=== PATIENT | male | born 1930 | race Caucasian/White ===

== ENCOUNTER 2016-09-01 17:13 | Inpatient (IN) | payer OTHER ==
[~2016-09-01] VITALS: Ht 182.9 cm; Wt 121.4 kg
[~2016-09-01 17:13] MED LIST: ACET325T96 PO; ATOR-54 PO; CRD200 PO; FAMO20TA11 PO; FLV1 PO; FRS/40 PO; FRS/80 PO; HEPA1INJ22 SQ; INSDGI SC; LISI2.5T5 PO; NTRGSL/4 UT; POLY335025 PO; POTA20TA16 PO; SITA50TA PO
--- NOTE | 2016-09-01 17:44 | EMERGENCY ROOM VISIT NOTE ---
History Report prepared by Li: Nancy Hurley Under the Supervision of: Dr. Brent Ruiz M.D. First contact with patient: 17:25 Chief Complaint: EDEMA TO EXTREMITY Stated Complaint: FLUID RETENTION History of Present Illness The patient is a 86 year old male who presents to the Emergency Room with complaints of bilateral leg swelling. Notes over the last 2 days increasing swelling of legs which now involved lower abdomen. He is unable to get his pants on without significant difficulty due to swelling. Notes some dyspnea on exertion. No chest pain, sob, nausea, vomiting, fevers, rashes. Appetite normal. In last week he has gained 25 pounds. No change in medications recently. Nothing makes better. History of cardiac surgery 15 yrs ago. No mediations prior to arrival. Seen by PCP this afternoon and sent to ED for further evaluation. Source of History: patient, family, treating provider Onset: 2 days ago Position: leg (bilateral) Quality: other (swelling) Timing: worsening Modifying Factors (Worsening): exertion Associated Symptoms: No SOB, No chest pain, No fevers, No nausea, No rash, No vomiting Note: Pt notes swelling to abdomen and weight gain of 25lbs in the past week. Review of Systems See HPI for pertinent positives & negatives. A total of 10 systems reviewed and were otherwise negative. Past Medical & Surgical Medical Problems: (1) Bladder cancer (2) Diabetes Family History FHx: heart disease Social History Smoking Status: Never Smoker Alcohol Use: none Drug Use: none Marital Status: Occupation Status: unemployed Current/Historical Medications Scheduled Amiodarone HCl (Amiodarone HCl), 200 MG PO DAILY Atorvastatin (Lipitor), 20 MG PO DAILY Famotidine (Pepcid), 20 MG PO QPM Fluticasone Propionate (Nasal) (Flonase Allergy Relief), 2 SPRAY MAGAN DAILY Folic Acid (Folic Acid), 1 MG PO DAILY Furosemide (Lasix), 40 MG PO BID Insulin Glargine (Lantus), 48 UNITS SC HS Lisinopril (Lisinopril), 5 MG PO DAILY Nitroglycerin (Nitrostat), 0.4 MG UT PRN Pantoprazole (Protonix), 40 MG PO DAILY Potassium Ext Rel (Klor-Con), 20 MEQ PO BID Repaglinide (Prandin), 2 MG PO AC Sitagliptin Phosphate (Januvia), 50 MG PO DAILY Scheduled PRN Acetaminophen Tab (Tylenol), 650 MG PO Q4 PRN for Fever Allergies Coded Allergies: Propranolol (Verified Allergy, Unknown, 09/01/16) Codeine (Verified Adverse Reaction, Mild, NOTED "DOESNT TOLERATE WELL" , 09/01/16) Physical Exam Vital Signs Date Time Temp Pulse Resp B/P Pulse Ox O2 Delivery O2 Flow Rate FiO2 09/01/16 19:31 84 09/01/16 19:25 83 18 145/85 95 Room Air 09/01/16 17:20 36.6 91 20 132/76 97 Room Air Physical Exam GENERAL: Patient is chronically unwell appearing and in no acute distress. HEENT: No acute trauma, normocephalic atraumatic, mucous membranes moist, no nasal congestion, no scleral icterus. NECK: No stridor, no adenopathy, no meningismus, trachea is midline. LUNGS: No dyspnea. Clear to auscultation and equal bilaterally. No wheeze, no rhonchi. HEART: Regular rate and rhythm. No murmurs, rubs, gallops appreciated. ABDOMEN: Edema to lower abdomen. Soft, nontender, bowel sounds positive, no masses appreciated, no peritonitis. BACK: Mild low back pitting edema. No midline tenderness, no CVA tenderness EXTREMITIES: 4+ edema bilateral legs. Old anterior scarring both shins. Normal motion all extremities, no cyanosis NEUROLOGIC: Alert and oriented, no acute motor or sensory deficits, no focal weakness, cranial nerves grossly intact. SKIN: No rash, no jaundice, no diaphoresis. Medical Decision & Procedures ER Provider Diagnostic Interpretation: Radiology results and stated below per my review and radiologist interpretation: CHEST ONE VIEW PORTABLE CLINICAL HISTORY: Diffuse edema COMPARISON STUDY: Chest radiograph August 28, 2013. FINDINGS: A dual lead left subclavian pacemaker and median sternotomy wires are noted. Moderate cardiomegaly is noted. The patient is rotated. There is no evidence of pulmonary edema. There is no pneumothorax or pleural effusion. Mild left basilar opacity favors atelectasis. IMPRESSION: Stable cardiomegaly without evidence of pulmonary edema. Electronically signed by: Williams Goetz M.D. 09/01/2016 6:07 PM Dictated Date/Time: 09/01/2016 6:06 PM Laboratory Results 09/01/16 17:45 Red Blood Count 3.54, Mean Corpuscular Volume 90.7, Mean Corpuscular Hemoglobin 30.2, Mean Corpuscular Hemoglobin Concent 33.3, Mean Platelet Volume 10.4, Neutrophils (%) (Auto) 74.7, Lymphocytes (%) (Auto) 8.5, Monocytes (%) (Auto) 13.4, Eosinophils (%) (Auto) 2.8, Basophils (%) (Auto) 0.3, Neutrophils # (Auto ) 2.63, Lymphocytes # (Auto) 0.30, Monocytes # (Auto) 0.47, Eosinophils # (Auto ) 0.10, Basophils # (Auto) 0.01 09/01/16 17:45 Test 09/01/16 17:45 White Blood Count 3.52 K/uL (4.8-10.8) Red Blood Count 3.54 M/uL (4.7-6.1) Hemoglobin 10.7 g/dL (14.0-18.0) Hematocrit 32.1 % (42-52) Mean Corpuscular Volume 90.7 fL (80-100) Mean Corpuscular Hemoglobin 30.2 pg (25-34) Mean Corpuscular Hemoglobin Concent 33.3 g/dl (32-36) Platelet Count 56 K/uL (130-400) Mean Platelet Volume 10.4 fL (7.4-10.4) Neutrophils (%) (Auto) 74.7 % Lymphocytes (%) (Auto) 8.5 % Monocytes (%) (Auto) 13.4 % Eosinophils (%) (Auto) 2.8 % Basophils (%) (Auto) 0.3 % Neutrophils # (Auto) 2.63 K/uL (1.4-6.5) Lymphocytes # (Auto) 0.30 K/uL (1.2-3.4) Monocytes # (Auto) 0.47 K/uL (0.11-0.59) Eosinophils # (Auto) 0.10 K/uL (0-0.5) Basophils # (Auto) 0.01 K/uL (0-0.2) RDW Standard Deviation 50.9 fL (36.4-46.3) RDW Coefficient of Variation 15.3 % (11.5-14.5) Immature Granulocyte % (Auto) 0.3 % Immature Granulocyte # (Auto) 0.01 K/uL (0.00-0.02) Platelet Estimate DECREASED Anion Gap 8.0 mmol/L (3-11) Est Creatinine Clear Calc Drug Dose 27.1 ml/min Estimated GFR () 24.8 Estimated GFR (Non- 21.4 BUN/Creatinine Ratio 10.6 (10-20) Calcium Level 8.0 mg/dl (8.5-10.1) Magnesium Level 2.2 mg/dl (1.8-2.4) Total Creatine Kinase 145 U/L (39-308) Creatine Kinase MB 2.0 ng/ml (0.5-3.6) Creatine Kinase MB Ratio 1.4 (0-3.0) Troponin I 0.025 ng/ml (0-0.045) Pro-B-Type Natriuretic Peptide 1184 pg/ml (0-1800) Laboratory results as reviewed by me. Medications Administered Medications (Trade) Dose Ordered Sig/Gin Route Start Time Stop Time Status Last Admin Dose Admin Furosemide (Lasix Inj) 40 mg NOW STAT IV 09/01/16 18:55 09/01/16 18:56 DC 09/01/16 19:31 40 MG ECG Indication: SOB/dyspnea Rate (beats per minute): 71 Rhythm: sinus rhythm (with prolonged TN interval, periodically paced) Findings: LBBB, no acute ischemic change, other (periodic premature supraventricular complexes) Comparison ECG Date: 01/18/14 Change: no significant change ED Course 1724: The patient was evaluated in room C5. A complete history and physical exam was performed. 1851: I reassessed the patient at this time. He is resting comfortably. I discussed the results and treatment plan with the patient. I answered all pertaining questions that he had. He expressed understanding and verbalized agreement. 1854: Lasix 40 mg IV 1920: I spoke with Dr. Burleson. We discussed the patient's results and treatment plan. The patient will be evaluated by the [facility] for further management. Medical Decision Differential: DVT, CHF, Arterial Occlusion, Infectious, Joint Effusion, Trauma, Lymphedema, Idiopathic, Trauma, amongst other pathologies entertained. 86 yr old male on lasix arrives for evaluation of bilateral leg swelling and significant weight gain over last few days. He has 4+ pitting edema from feet to low abdomen/back. He does not have evidence of pulmonary involvement and O2 doing well. Given the amount of swelling suspect his is righ heart failure. He does not have DVT by history nor evidence of infection at this time. Given IV lasix with understanding that this could harm kidneys, but is necessary given amount of failure he is in. Consults Time Called: 1850 Consulting Physician: Dr. Burleson Returned Call: [address] Burleson. We discussed the patient's results and treatment plan. [facility] Impression Primary Impression: Bilateral leg edema Additional Impressions: Dyspnea on exertion Right heart failure Scribe Attestation The scribe's documentation has been prepared under my direction and personally reviewed by me in its entirety. I confirm that the note above accurately reflects all work, treatment, procedures, and medical decision making performed by me. Departure Information Dispostion Being Evaluated By Hospitalist Referrals Anastacio Garza M.D. (PCP) Patient Instructions My [facility] Problem Qualifiers
--- NOTE | 2016-09-01 18:09 | DIAGNOSTIC IMAGING REPORT ---
CHEST ONE VIEW PORTABLE CLINICAL HISTORY: Diffuse edema COMPARISON STUDY: Chest radiograph August 28, 2013. FINDINGS: A dual lead left subclavian pacemaker and median sternotomy wires are noted. Moderate cardiomegaly is noted. The patient is rotated. There is no evidence of pulmonary edema. There is no pneumothorax or pleural effusion. Mild left basilar opacity favors atelectasis. IMPRESSION: Stable cardiomegaly without evidence of pulmonary edema. Electronically signed by: Williams Goetz M.D. 09/01/2016 6:07 PM Dictated Date/Time: 09/01/2016 6:06 PM
[2016-09-01] MEDS ORDERED: INSDGI SC (18:24)
[2016-09-01] MEDS ORDERED: CRD200 PO (18:24)
[2016-09-01 18:37] LABS: BUN/CREATININE RATIO 10.6 (10-20); CREATININE 2.6 mg/dl (0.60-1.40); MAGNESIUM 2.2 mg/dl (1.8-2.4); POTASSIUM 3.7 mmol/L (3.5-5.1)
[2016-09-01 18:41] LABS: HEMATOCRIT 32.1 % (42-52); MEAN CELL VOLUME 90.7 fL (80-100); MEAN CORPUSCULAR HEMOGLOBIN 30.2 pg (25-34); MEAN CORPUSCULAR HGB CONC 33.3 g/dl (32-36); MEAN PLATELET VOLUME 10.4 fL (7.4-10.4); PLATELET COUNT 56 K/uL (130-400); RED BLOOD COUNT 3.54 M/uL (4.7-6.1); WHITE BLOOD COUNT 3.52 K/uL (4.8-10.8)
[2016-09-01 18:42] LABS: BASO % 0.3 %; BASO ABS # 0.01 K/uL (0-0.2); CKMB/CK RATIO 1.4 (0-3.0); COMPLETE YES; EOS % 2.8 %; IG% 0.3 %; LYMPH % 8.5 %; MONO % 13.4 %; NEUT % 74.7 %; PLT ESTIMATE DECREASED
[2016-09-01] MEDS ORDERED: FUROSEMIDE 40 MG/4 ML VIAL IV STA (18:55)
[2016-09-01] MEDS ORDERED: ONDANSETRON INJ 2 MG/ML 2 ML VIAL IV PRN (20:45)
[2016-09-01] MEDS ORDERED: LSN5 PO (20:54)
[2016-09-01] MEDS ORDERED: PANT40TA PO (20:59)
[2016-09-01] MEDS ORDERED: REPA1TAB5 PO (21:04)
[2016-09-01] MEDS ORDERED: FLUT0.15 NAE (21:05)
[2016-09-01] MEDS ORDERED: GLUCAGON FOR INJ 1 MG VIAL SQ PRN (21:15)
[2016-09-01] MEDS ORDERED: DEXTROSE 50% 50 ML SYR IV PRN (21:15)
[2016-09-01] MEDS ORDERED: GLUCOSE 40% GEL 15 GM TUBE PO PRN (21:15)
[2016-09-01] MEDS ORDERED: GLUCOSE 10 TABS/TUBE PO PRN (21:15)
[2016-09-01] MEDS ORDERED: ACETAMINOPHEN 325 MG TAB PO PRN (21:15)
[2016-09-01] MEDS ORDERED: PHARMACY GLYCEMIC MGMT CONSULT PRN (21:45)
[2016-09-01] MEDS: INSULIN ASPART 100 UNITS/ML 3 ML PEN SC SCH (23:00)
[2016-09-01] MEDS ORDERED: INSULIN GLARGINE SOLOSTAR 100 UNITS/ML 3 ML PEN SC SCH (23:00)
[2016-09-01 23:41] LABS: INR 1.2 (0.9-1.1); PARTIAL THROMBOPLASTIN RATIO 1.2; PROTHROMBIN TIME (PATIENT) 12.9 SECONDS (9.0-12.0)
[2016-09-01 23:45] VITALS: BP 137/81; PULSE 86; TEMP 36.5; Ht 182.9 cm; Wt 121.4 kg
--- NOTE | 2016-09-02 01:33 | History and Physical ---
History & Physical Date & Time of Service: Sep 01, 2016 at 21:06 Chief Complaint: Fluid Retention Primary Care Physician: Anastacio Garza M.D. History of Present Illness Source: family, clinic records, hospital records 86 year old male with PMH of COPD, CARLITA on CPAP, DM II, CKD stage 3/4, HTN dyslipidemia, obesity was sent from PCP office to the Emergency Room with complaints of bilateral leg swelling. Pt said that for the last few days he has been having increasing swelling of B/L legs. He said that in the last 2 days the swelling got worst to the point that it seems like it involves his abdomen because he is unable to get his pants on without significant difficulty due to swelling. Notes some dyspnea on exertion. He said that he gained about 25lbs in the last few weeks. (Weight at podiatry on 08/24 was 247lbs and he is at 272lbs in clinic today.) Pt said that in his last appointment with nephrology, his lasix was decreased to 40mg BID. He said that, he increased his lasix without the physician permission to his previous dose of 120mg daily (40/80 mg) last Monday. He denies any chest pain, sob, nausea, vomiting, fevers, rashes. Past Medical/Surgical History Medical Problems: (1) Bladder cancer Status: Chronic (2) Diabetes Status: Chronic Family History FHx: heart disease Social History Smoking Status: Never Smoker Alcohol Use: none Drug Use: none Marital Status: Occupational Status: unemployed Immunizations History of Influenza Vaccine: Yes History of Tetanus Vaccine?: Yes History of Pneumococcal: Yes History of Hepatitis B Vaccine: Unknown Multi-Drug Resistant Organisms History of MDRO: No Allergies Coded Allergies: Propranolol (Verified Allergy, Unknown, 09/01/16) Codeine (Verified Adverse Reaction, Mild, NOTED "DOESNT TOLERATE WELL" , 09/01/16) Home Medications Scheduled Amiodarone HCl (Amiodarone HCl), 200 MG PO DAILY Atorvastatin (Lipitor), 20 MG PO DAILY Famotidine (Pepcid), 20 MG PO QPM Fluticasone Propionate (Nasal) (Flonase Allergy Relief), 2 SPRAY MAGAN DAILY Folic Acid (Folic Acid), 1 MG PO DAILY Furosemide (Lasix), 40 MG PO BID Insulin Glargine (Lantus), 48 UNITS SC HS Lisinopril (Lisinopril), 5 MG PO DAILY Nitroglycerin (Nitrostat), 0.4 MG UT PRN Pantoprazole (Protonix), 40 MG PO DAILY Potassium Ext Rel (Klor-Con), 20 MEQ PO BID Repaglinide (Prandin), 2 MG PO AC Sitagliptin Phosphate (Januvia), 50 MG PO DAILY Scheduled PRN Acetaminophen Tab (Tylenol), 650 MG PO Q4 PRN for Fever Review of Systems Constitutional: No chills, No fever Eyes: No eye pain, No worsening of vision ENT: No hearing loss, No nasal symptoms Respiratory: + dyspnea on exertion, No cough, No sputum, No wheezing Cardiovascular: + edema, No chest pain, No orthopnea Abdomen: No nausea, No pain, No vomiting Musculoskeletal: No calf pain, No joint pain Genitourinary - Male: No dysuria, No urinary retention Neurologic: No paralysis, No weakness Psychiatric: No substance abuse Endocrine: No excessive thirst, No fatigue Integumentary: No itch, No rash Physical Exam Vital Signs Date Time Temp Pulse Resp B/P Pulse Ox O2 Delivery O2 Flow Rate FiO2 09/01/16 19:31 84 09/01/16 19:25 83 18 145/85 95 Room Air 09/01/16 17:20 36.6 91 20 132/76 97 Room Air General Appearance: WD/WN, no apparent distress Head: normocephalic Eyes: normal inspection, PERRL, EOMI ENT: normal ENT inspection, hearing grossly normal Neck: supple, no JVD Respiratory/Chest: lungs clear, no respiratory distress, no accessory muscle use Cardiovascular: regular rate, rhythm, no JVD, no murmur Abdomen/GI: normal bowel sounds, non tender, soft Back: normal inspection, no CVA tenderness Extremities/Musculoskelatal: no calf tenderness, + pedal edema Neurologic/Psych: alert, normal mood/affect, oriented x 3 Skin: warm/dry, no rash Lymphatic: no adenopathy Diagnostics Laboratory Results Results Past 24 Hours Test 09/01/16 17:45 Range/Units White Blood Count 3.52 4.8-10.8 K/uL Red Blood Count 3.54 4.7-6.1 M/uL Hemoglobin 10.7 14.0-18.0 g/dL Hematocrit 32.1 42-52 % Mean Corpuscular Volume 90.7 80-100 fL Mean Corpuscular Hemoglobin 30.2 25-34 pg Mean Corpuscular Hemoglobin Concent 33.3 32-36 g/dl Platelet Count 56 130-400 K/uL Mean Platelet Volume 10.4 7.4-10.4 fL Neutrophils (%) (Auto) 74.7 % Lymphocytes (%) (Auto) 8.5 % Monocytes (%) (Auto) 13.4 % Eosinophils (%) (Auto) 2.8 % Basophils (%) (Auto) 0.3 % Neutrophils # (Auto) 2.63 1.4-6.5 K/uL Lymphocytes # (Auto) 0.30 1.2-3.4 K/uL Monocytes # (Auto) 0.47 0.11-0.59 K/uL Eosinophils # (Auto) 0.10 0-0.5 K/uL Basophils # (Auto) 0.01 0-0.2 K/uL RDW Standard Deviation 50.9 36.4-46.3 fL RDW Coefficient of Variation 15.3 11.5-14.5 % Immature Granulocyte % (Auto) 0.3 % Immature Granulocyte # (Auto) 0.01 0.00-0.02 K/uL Platelet Estimate DECREASED Sodium Level 147 136-145 mmol/L Potassium Level 3.7 3.5-5.1 mmol/L Chloride Level 112 98-107 mmol/L Carbon Dioxide Level 27 21-32 mmol/L Anion Gap 8.0 3-11 mmol/L Blood Urea Nitrogen 28 7-18 mg/dl Creatinine 2.60 0.60-1.40 mg/dl Est Creatinine Clear Calc Drug Dose 27.1 ml/min Estimated GFR () 24.8 Estimated GFR (Non- 21.4 BUN/Creatinine Ratio 10.6 10-20 Random Glucose 144 70-99 mg/dl Calcium Level 8.0 8.5-10.1 mg/dl Magnesium Level 2.2 1.8-2.4 mg/dl Total Creatine Kinase 145 39-308 U/L Creatine Kinase MB 2.0 0.5-3.6 ng/ml Creatine Kinase MB Ratio 1.4 0-3.0 Troponin I 0.025 0-0.045 ng/ml Pro-B-Type Natriuretic Peptide 1184 0-1800 pg/ml Diagnostic Radiology CHEST ONE VIEW PORTABLE CLINICAL HISTORY: Diffuse edema COMPARISON STUDY: Chest radiograph August 28, 2013. FINDINGS: A dual lead left subclavian pacemaker and median sternotomy wires are noted. Moderate cardiomegaly is noted. The patient is rotated. There is no evidence of pulmonary edema. There is no pneumothorax or pleural effusion. Mild left basilar opacity favors atelectasis. IMPRESSION: Stable cardiomegaly without evidence of pulmonary edema. Electronically signed by: Williams Goetz M.D. 09/01/2016 6:07 PM Dictated Date/Time: 09/01/2016 6:06 PM Impression Assessment and Plan B/L LE EDEMA Received Lasix 40mg IV in the ER will get venous doppler of LE Continue IV lasix Acute on CKD 4 creatine was 2 (08/05) creatine on admission 2.6 possible related to diuretic since pt increased it to 120 daily hold lisinopril for now hold am dose of lasix, can resume if creatine improved will add albumin will consult nephrology monitor I/O Monitor BMP SOB on exertion Will get an echo starting Lasix IV after am lab result DM TYPE II Last Hba1c 6.2 on (07/22/16) Controlled hold PO meds insulin coverage continue lantus CARLITA on CPAP HTN Hold lisinopril due to elevating creatine BP stable monitor BP DVT px on heparin subq Code Status DNR Level of Care Med/Surg Resuscitation Status DO NOT RESUSCITATE VTE Prophylaxis VTE Risk Assessment Done? Y/N: Yes Risk Level: Moderate Given or contraindicated: Unfractionated heparin SQ
[2016-09-02] MEDS: HEPARIN SOD 5000 UNIT/0.5 ML CARP SQ SCH ×3 (05:42→20:58)
[2016-09-02 07:45] VITALS: BP 127/73; PULSE 60; TEMP 36.5; O2SAT 99
--- NOTE | 2016-09-02 07:51 | NEPHROLOGY CONSULTATION ---
DATE OF CONSULTATION: 09/02/2016 DATE OF CONSULTATION: 09/02/2016. ATTENDING OF RECORD: Dr. Avelar. REASON FOR CONSULTATION: Volume overload and MAGEN. HISTORY OF PRESENT ILLNESS: This is an 86-year-old male who follows with my partner, Dr. 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 The patient does have a significant history of type 2 diabetes insulin requiring, as well as history of bladder cancer, primary thrombocytopenia, sleep apnea, COPD, cardiomyopathy. Dr. Damico on 06/01/2016 reduced the Lasix to 40 mg twice a day from 40 mg in the morning and 80 mg at night secondary to the creatinine worsening. The patient has a history of recurrent bladder cancer status post September 2012 resection and had a right ankle fracture, has low grade 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 followed by Dr. Brown, diabetes since 2009, sleep apnea on oxygen and CPAP, paroxysmal Afib and cardiomyopathy followed by Dr. Louis, a remote history of smoking, history of hypertension. The patient with CKD stage III/IV with microalbuminuria in the setting of advanced age, diabetes, atherosclerotic vascular disease, hypertension. The patient states that he was doing well but then recently gained about 25 pounds in the last few weeks. No actual worsening shortness of breath, just worsening abdominal distention and worsening leg swelling. Lasix was decreased to 40 mg b.i.d. on 06/01/2016 and was doing fine up until this admission. The patient though states. The swelling much improved this morning, abdominal distention improving, leg swelling is improving. The patient feels good using his BiPAP overnight. PAST MEDICAL HISTORY: CKD stage IV with baseline creatinine in the low 2's with microalbuminuria, hypertension, diabetes, obstructive sleep apnea on CPAP and oxygen, COPD, bladder cancer, ankle fracture. FAMILY HISTORY: Significant for heart disease. SOCIAL HISTORY: No smoking, no alcohol, no drugs. REVIEW OF SYSTEMS: No fevers or chills. Positive significant weight gain, positive baseline shortness of breath but no acute worsening. No chest pain. Positive edema, positive abdominal distention. No rash or itching. No blurry vision. No dysphagia. No diarrhea or constipation. No dysuria. All other review of systems otherwise negative. CURRENT MEDICATIONS: Pepcid 20 mg at night, Lantus 45 units at night, amiodarone 200 mg daily, Lipitor 20 mg daily, folic acid 1 mg daily, Protonix 40 mg daily, heparin 5000 units subQ q. 8, sliding scale insulin. The patient did receive 1 dose of Lasix 40 IV last night. PAST SURGICAL HISTORY: Pacemaker insertion, TURP, cholecystectomy. PHYSICAL EXAMINATION: VITAL SIGNS: Temperature 36.5, pulse 86, respiratory rate 16, blood pressure 137/81, satting 98% on room air. GENERAL: Awake, alert, oriented x3. EYES: No scleral icterus. EARS, NOSE, THROAT: Moist mucous membranes. NECK: Supple. PULMONARY: Clear to auscultation. CARDIAC: Regular rate and rhythm. ABDOMEN: Bowel sounds positive, soft. Positive abdominal distention. EXTREMITIES: +2 pitting edema. NEUROLOGICALLY: Nonfocal. DERMATOLOGIC: No rash or ulcers noted. LABORATORY DATA: White count is 3.5. H\T\H 10 and 32, platelet count is 56. Sodium level 147, potassium 3.7, chloride is 112, bicarbonate is 27, BUN is 28, creatinine is 2.6, glucose 144, calcium 8, mag is 2.2. Troponin 0.025. ProBNP 1184. INR is 1.2. These are admission labs. Chest x-ray shows stable cardiomegaly without evidence of pulmonary edema. The patient had 900 mL out overnight. ASSESSMENT AND PLAN: Acute kidney injury, nonoliguric. Creatinine at baseline, is normally in the low 2s and presents with worsening lower extremity edema with a creatinine up to 2.6. The patient did respond favorably to the Lasix, urinated about 900 mL and the leg swelling and abdominal distention is improving. No actual congestive heart failure at this time. Lungs are clear to auscultation. Normally is on Lasix 40 mg b.i.d. which was reduced in the beginning of May secondary to the creatinine trending up. I would like to recheck a BMP again this morning. As long as creatinine is not worsening, could consider redosing albumin with Lasix to try to help mobilize the third space fluid. Hopefully, as we continue to diurese, kidney function will actually start to improve. Unclear why patient tipped over and gained fluid so quickly, but appears to be responding favorably through leg elevation and IV Lasix. Appreciate consultation. RAYNA
--- NOTE | 2016-09-02 07:53 | DIAGNOSTIC IMAGING REPORT ---
BILATERAL LOWER EXTREMITY VENOUS DOPPLER HISTORY: Pain. Edema. leg edema COMPARISON STUDY: None. FINDINGS: There is normal compressibility, flow, and augmentation within the bilateral lower extremity deep venous systems. IMPRESSION: No DVT within the right or left lower extremity. Electronically signed by: Anastacio Hilton M.D. 09/02/2016 7:51 AM Dictated Date/Time: 09/02/2016 7:50 AM
[2016-09-02 08:53] LABS: BUN/CREATININE RATIO 11.4 (10-20); CREATININE 2.4 mg/dl (0.60-1.40); POTASSIUM 3.8 mmol/L (3.5-5.1)
[2016-09-02 08:57] LABS: CALCIUM 7.9 mg/dl (8.5-10.1)
[2016-09-02] MEDS: PANTOprazole SOD 40 MG TAB PO SCH (08:57)
[2016-09-02] MEDS: ATORVASTATIN 20 MG TAB PO SCH (08:57)
[2016-09-02] MEDS: AMIODARONE 200 MG TAB PO SCH (08:57)
[2016-09-02] MEDS: INSULIN ASPART 100 UNITS/ML 3 ML PEN SC SCH ×4 (09:00→20:54)
--- NOTE | 2016-09-02 09:39 | Clinical Documentation Query ---
ESTHER Noyola : CLINICAL DOCUMENTATION QUERY Patient is amn 86 year old male admitted for evaluation and treatment of bilateral leg and abdominal swelling, noting a weight gain of about 25 lbs in the past few weeks. Chest radiograph without evidence of congestive changes. LVEF within normal limits on most recent echocardiogram (2013). Patient has recieved IV Lasix which is to continue and be evaluated by nephrology, in addition to I/O, daily weights, serial chemistries. Please clarify as clinically able and appropriate as this directly impacts DRG assignment. Thank you. In your clinical opinion is this patient being managed for: ( ) Acute systolic right ventricular CHF ( ) Acute diastolic right ventricular CHF ( ) Acute combined systolic and diastolic right ventricular CHF ( x ) Other explanation of clinical findings (Please Explain) -POSSIBLE VOL OVERLOAD DUE TO RENAL FAILURE THX ( ) Unable to determine (Please Define) ( ) Need to Discuss ( ) Not Agree The medical record reflects the following clinical findings, treatment, and risk factors. Clinical Indicators: As above Treatment: Patient has recieved IV Lasix which is to continue and be evaluated by nephrology, in addition to I/O, daily weights, serial chemistries Risk Factors: Recent reduction in diuretic due to kidney function, CKD stage 4, COPD, obesity Please clarify and document your clinical opinion in the progress notes and discharge summary. Terms such as "probable", "suspected", "likely", "questionable", "possible", or "still to be ruled out" are acceptable. IF IN AGREEMENT, YOU MUST DOCUMENT ABOVE DIAGNOSTIC STATEMENT IN DAILY PROGRESS NOTES AND DISCHARGE SUMMARY. This document is not part of the patient's record. Thank You, Nathan Adkins, RN [phone]
[2016-09-02] MEDS ORDERED: PERFLUTREN LIPID MICROSPHERE (DEFINITY) IV ONE (09:52)
--- NOTE | 2016-09-02 10:04 | Pharmacy Progress Note ---
Glycemic Control Intl Consult Date of Service Sep 02, 2016. Scope Glycemic Pharmacist consulted by Dr Avelar on 09/01/16 for glycemic control and to write orders per [facility] inpatient glycemic control protocol Objective Weight (Kilograms): 118.600 Accuchecks BSG (last 24hrs): Test 09/01/16 17:45 09/02/16 08:15 Random Glucose 144 mg/dl (70-99) 81 mg/dl (70-99) Laboratory Data (last 24hrs) Test 09/01/16 17:45 09/02/16 08:15 Anion Gap 8.0 mmol/L 7.0 mmol/L BUN/Creatinine Ratio 10.6 11.4 Blood Urea Nitrogen 28 mg/dl 27 mg/dl Creatinine 2.60 mg/dl 2.40 mg/dl Potassium Level 3.7 mmol/L 3.8 mmol/L Sodium Level 147 mmol/L 147 mmol/L White Blood Count 3.52 K/uL Red Blood Count 3.54 M/uL Hemoglobin 10.7 g/dL Hematocrit 32.1 % Mean Corpuscular Volume 90.7 fL Mean Corpuscular Hemoglobin 30.2 pg Mean Corpuscular Hemoglobin Concent 33.3 g/dl Platelet Count 56 K/uL Mean Platelet Volume 10.4 fL Neutrophils (%) (Auto) 74.7 % Lymphocytes (%) (Auto) 8.5 % Monocytes (%) (Auto) 13.4 % Eosinophils (%) (Auto) 2.8 % Basophils (%) (Auto) 0.3 % Neutrophils # (Auto) 2.63 K/uL Lymphocytes # (Auto) 0.30 K/uL Monocytes # (Auto) 0.47 K/uL Eosinophils # (Auto) 0.10 K/uL Basophils # (Auto) 0.01 K/uL HbA1c ? Recent Pertinent Medications Outpatient Anti-diabetic Regimen: * Lantus 48 units Q HS * Januvia 50mg PO daily * Prandin 2mg PO prior to meals * A1c = ? % The patient is currently receiving: * Basal insulin: Lantus 30 units x 1 given last evening * Correctional Insulin: Novolog Correction per scale ACHS Goal Range: Low 140 mg/dL - High 180 mg/dL Correction Factor: 35 mg/dL/unit * Prandial insulin: Per carb ratio of 1 unit per 12 grams CHO consumed * Oral Agents: Risk Factors for Insulin Resistance: * Steroids: n/a * Infection: n/a * Pressors: n/a * IVF: being diuresed * Recent Surgery: n/a * Diet: ordered T2DM / AHA / Low Na diet; he did eat breakfast this AM * Mechanical Ventilation: n/a Assessment & Plan ASSESSMENT: 09/02/16 * Type 2 diabetic admitted with MAGEN on CKD * He is treated with basal insulin and oral hypoglycemics as an outpatient, his level of glycemic control with this regimen is unclear- will check A1c * Fasting BSG 74 this AM w/ 30 units of Lantus on board - which is less than his home dosage; will reduce the dose even further to avoid low * The current CF and CR may need adjusted to allow for larger doses of each given h/o type 2 DM managed w/ 2 oral hypoglycemics, both of which target primarily post-prandial elevations PLAN FOR INPATIENT GLYCEMIC CONTROL: * Holding outpatient oral diabetes medications * Decrease Lantus to 20 units Q HS; hold if BSG less than 110 * Correctional Insulin with NOVOLOG per scale ACHS or Q6hrs while NPO * Goal Range: Low 120 mg/dL - High 150 mg/dL * Correction Factor: 25 mg/dL/unit * Nutritional / Prandial insulin per carb ratio of 1 unit per 9 grams CHO consumed * Please note that the plan above was derived based on current level of insulin resistance and hospital stress. These recommendations are appropriate for inpatient admission only. Plan of care upon discharge will need to be reassessed to avoid potential outpatient hypo/hyperglycemia. Thank you.
[2016-09-02 10:47] VITALS: BP 137/73
[2016-09-02 11:16] LABS: URINE APPEARANCE CLEAR (CLEAR); URINE BILIRUBIN NEG (NEG); URINE COLOR YELLOW; URINE EPITHELIAL CELL AUTO >30 /lpf (0-5); URINE NITRITE NEG (NEG); URINE PH 6.5 (4.5-7.5); URINE SPECIFIC GRAVITY 1.017 (1.000-1.030); UROBILINOGEN NEG (NEG)
[2016-09-02] MEDS: ALBUMIN 25% 50 ML with FUROSEMIDE INJ 40 MG IV SCH ×2 (11:22)
[2016-09-02 11:34] LABS: MANUAL MICROSCOPIC REQUIRED? NO; REVIEW REQ? NO
[2016-09-02 14:53] VITALS: BP 136/63; PULSE 65; TEMP 36.6; O2SAT 94
--- NOTE | 2016-09-02 15:56 | ECHOCARDIOGRAM REPORT ---
*NOTICE TO RECEIVING [employer] This information is strictly Confidential and protected under [place] law. [place] law prohibits you from making any further disclosure of this information unless further disclosure is expressly permitted by the written consent of the person to whom it pertains or is authorized by law. A general authorization for the release of medical or other information is not sufficient for this purpose. Hospital accepts no responsibility if the information is made available to any other person, INCLUDING THE PATIENT. Interpretation Summary * Name: ELDON VENTURA Study Date: 09/02/2016 09:17 AM BP: 127/73 mmHg * Patient Location: .[id number]\W258\S\1 HR: 60 * : 1930 (M/d/yyyy) Gender: Male Height: 70 in * Age: 86 yrs Ethnicity: [place] Weight: 261 lb * Ordering Physician: Reji Avelar * Performed By: Kassandra Prabhakar * * Reason For Study: B/L LEG EDEMA/ DÍAZ * BSA: 2.3 m2 * Compared to prior study, there is no significant change. * -- Conclusions -- * The left ventricle is normal in size. * There is moderate concentric left ventricular hypertrophy. * The patient is s/p septal myomectomy * Echo findings are not consistent with left ventricular outflow obstruction. * Septal motion is consistent with conduction abnormality. * No regional wall motion abnormalities noted. * Ejection Fraction = 55-60%. * Aortic valve sclerosis moderate, without significant aortic valvular stenosis. * There is mild mitral annular calcification. * There is trace mitral regurgitation. Procedure Details * A complete two-dimensional transthoracic echocardiogram was performed (2D, M-mode, Doppler and color flow Doppler). * A contrast injection of Definity was performed to improve assessment of LV function. * Contrast was injected into an intravenous site in the left arm. * One vial of Definity ultrasound contrast was diluted in normal saline to a total volume of 10 ml. A total of '3' ml of solution was administered during imaging. * Lot # [id number] of Definity utilized for procedure. * Expiration date 09/06. * The attending nurse who injected the contrast agent was BEBETO HEWITT RN. Left Ventricle * The left ventricle is normal in size. * There is moderate concentric left ventricular hypertrophy. * The patient is s/p septal myomectomy * Echo findings are not consistent with left ventricular outflow obstruction. * Left ventricular systolic function is normal. * Ejection Fraction = 55-60%. * Septal motion is consistent with conduction abnormality. * No regional wall motion abnormalities noted. Right Ventricle * The right ventricle is normal in size and function. Atria * The left atrial size is normal. * Right atrial size is normal. * No ASD detected; PFO is not assessed. Mitral Valve * There is mild mitral annular calcification. * There is no mitral valve stenosis. * There is trace mitral regurgitation. Tricuspid Valve * The tricuspid valve anatomy is normal. * There is no tricuspid stenosis. * There is trace tricuspid regurgitation. * Doppler findings do not suggest pulmonary hypertension. Aortic Valve * The aortic valve is trileaflet. * Aortic valve sclerosis moderate, without significant aortic valvular stenosis. * Mild aortic regurgitation. Pulmonic Valve * The pulmonic valve is not well visualized. Great Vessels * Borderline aortic root dilatation. * Borderline dilated ascending aorta. Pericardium/Pleural * There is no pericardial effusion. Great Vessels * Normal inferior vena cava diameter and respiratory variation suggests normal central venous pressure. MMode 2D Measurements and Calculations IVSd 1.9 cm IVSs 2.5 cm LVIDd 5.3 cm LVIDs 3.7 cm LVPWd 1.8 cm LVPWs 2.7 cm IVS/LVPW 1.0 FS 31.2 % EDV(Teich) 138.0 ml ESV(Teich) 57.3 ml EF(Teich) 58.5 % EDV(cubed) 152.7 ml ESV(cubed) 49.8 ml EF(cubed) 67.4 % % IVS thick 35.1 % % LVPW thick 46.9 % LV mass(C)d 492.1 grams LV mass(C)dI 210.5 grams/m\S\2 LV mass(C)s 548.1 grams LV mass(C)sI 234.5 grams/m\S\2 CO(Teich) 5.4 l/min CI(Teich) 2.3 l/min/m\S\2 SV(Teich) 80.7 ml SI(Teich) 34.5 ml/m\S\2 CO(cubed) 6.9 l/min CI(cubed) 3.0 l/min/m\S\2 SV(cubed) 103.0 ml SI(cubed) 44.1 ml/m\S\2 ACS 1.0 cm asc Aorta Diam 4.3 cm LVOT diam 1.9 cm LVOT area 2.7 cm\S\2 LVAd ap4 52.2 cm\S\2 LVLd ap4 11.1 cm EDV(MOD-sp4) 202.0 ml LVAs ap4 28.8 cm\S\2 LVLs ap4 8.8 cm ESV(MOD-sp4) 80.0 ml EF(MOD-sp4) 60.4 % LVAd ap2 30.3 cm\S\2 LVLd ap2 9.5 cm EDV(MOD-sp2) 82.0 ml LVAs ap2 16.6 cm\S\2 LVLs ap2 7.1 cm ESV(MOD-sp2) 34.0 ml EF(MOD-sp2) 58.5 % CO(MOD-sp4) 8.2 l/min CI(MOD-sp4) 3.5 l/min/m\S\2 SV(MOD-sp4) 122.0 ml SI(MOD-sp4) 52.2 ml/m\S\2 CO(MOD-sp2) 3.2 l/min CI(MOD-sp2) 1.4 l/min/m\S\2 SV(MOD-sp2) 48.0 ml SI(MOD-sp2) 20.5 ml/m\S\2 Doppler Measurements and Calculations MV E max vamshi 85.4 cm/sec MV A max vamshi 75.0 cm/sec MV E/A 1.1 MV V2 max 111.3 cm/sec MV max PG 5.0 mmHg MV V2 mean 63.9 cm/sec MV mean PG 1.9 mmHg MV V2 VTI 41.9 cm MV dec time 0.25 sec Ao V2 max 224.4 cm/sec Ao max PG 20.1 mmHg Ao max PG (full) 15.3 mmHg MAJOR(V,A) 1.3 cm\S\2 MAJOR(V,D) 1.3 cm\S\2 LV V1 max PG 4.8 mmHg LV V1 max 110.1 cm/sec MR max vamshi 432.9 cm/sec MR max PG 74.9 mmHg PA V2 max 133.4 cm/sec PA max PG 7.1 mmHg
[2016-09-02] MEDS: INSULIN GLARGINE SOLOSTAR 100 UNITS/ML 3 ML PEN SC SCH (20:59)
[2016-09-02] MEDS: FAMOTIDINE 20 MG TAB PO SCH (21:00)
[2016-09-02] MEDS ORDERED: INSULIN GLARGINE SOLOSTAR 100 UNITS/ML 3 ML PEN SC SCH (21:00)
--- NOTE | 2016-09-02 22:45 | Progress Note ---
Internal Med Progress Note Date of Service: Sep 02, 2016. Provider Documentation: SUBJECTIVE: denies of any SOB or orthopnea OBJECTIVE: Vital Signs-as noted below Exam: General-no sign of distress Eyes-sclera non icteric ENT-NAD Lungs-CTA ,no wheeze or rales Heart-regular S1/S2 Abdomen-soft, non tender Extremities-+ 3 bilateral pitting edema Neuro-no focal neurological deficit Lab data as noted below. ASSESSMENT & PLAN: B/L LE EDEMA with wt gain of approx 25 lb in last few weeks Received Lasix 40mg IV in the ER venous Doppler of LE-negative for DVT ECHO : * No regional wall motion abnormalities noted. * Ejection Fraction = 55-60%. * Aortic valve sclerosis moderate, without significant aortic valvular stenosis. * There is mild mitral annular calcification. * There is trace mitral regurgitation. 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 creatine was 2 (08/05) creatine on admission 2.6 possible related to diuretic since pt increased it to 120 daily hold lisinopril for now Nephrology consulted , appreciate input DM TYPE II Last Hba1c 6.2 on (07/22/16) Controlled hold PO meds insulin coverage continue lantus CARLITA on CPAP HTN Hold lisinopril due to elevating creatine BP stable monitor BP DVT moderate to high risk px on heparin subq Code Status DNR DISPOSITION to home when medically stable Vital Signs: Date Time Temp Pulse Resp B/P Pulse Ox O2 Delivery O2 Flow Rate FiO2 09/03/16 15:13 36.4 65 18 120/70 100 Room Air 09/03/16 07:40 Room Air 09/03/16 07:23 36.5 68 20 133/68 99 BiPAP 3.0 09/03/16 00:28 36.6 63 16 124/72 98 CPAP 4.0 09/02/16 23:30 CPAP 09/02/16 19:30 Room Air Lab Results: Results Past 24 Hours Test 09/02/16 20:18 09/03/16 06:40 09/03/16 07:30 09/03/16 11:20 Range/Units Bedside Glucose 125 108 167 70-99 mg/dl Sodium Level 148 136-145 mmol/L Potassium Level 3.7 3.5-5.1 mmol/L Chloride Level 114 98-107 mmol/L Carbon Dioxide Level 28 21-32 mmol/L Anion Gap 6.0 3-11 mmol/L Blood Urea Nitrogen 28 7-18 mg/dl Creatinine 2.20 0.60-1.40 mg/dl Est Creatinine Clear Calc Drug Dose 32.0 ml/min Estimated GFR () 30.3 Estimated GFR (Non- 26.2 BUN/Creatinine Ratio 12.9 10-20 Random Glucose 101 70-99 mg/dl Estimated Average Glucose 134 mg/dl Hemoglobin A1c 6.3 4.5-5.6 % Calcium Level 7.5 8.5-10.1 mg/dl
[2016-09-03 00:28] VITALS: BP 124/72; PULSE 63; TEMP 36.6; O2SAT 98
[2016-09-03] MEDS: HEPARIN SOD 5000 UNIT/0.5 ML CARP SQ SCH ×3 (05:48→20:52)
[2016-09-03 07:11] LABS: ESTIMATED AVERAGE GLUCOSE 134 mg/dl; HA1C FLAG Normal (Normal)
[2016-09-03 07:20] LABS: BUN/CREATININE RATIO 12.9 (10-20); CALCIUM 7.5 mg/dl (8.5-10.1); CREATININE 2.2 mg/dl (0.60-1.40); POTASSIUM 3.7 mmol/L (3.5-5.1)
[2016-09-03 07:23] VITALS: BP 133/68; PULSE 68; TEMP 36.5; O2SAT 99
[2016-09-03] MEDS: PANTOprazole SOD 40 MG TAB PO SCH (08:42)
[2016-09-03] MEDS: AMIODARONE 200 MG TAB PO SCH (08:42)
[2016-09-03] MEDS: ATORVASTATIN 20 MG TAB PO SCH (08:42)
[2016-09-03] MEDS: INSULIN ASPART 100 UNITS/ML 3 ML PEN SC SCH ×4 (08:55→20:50)
[2016-09-03] MEDS: ALBUMIN 25% 50 ML with FUROSEMIDE INJ 40 MG IV SCH ×2 (12:28)
[2016-09-03 15:13] VITALS: BP 120/70; PULSE 65; TEMP 36.4; O2SAT 100
[2016-09-03 16:22] VITALS: O2SAT 100
--- NOTE | 2016-09-03 17:27 | Progress Note ---
Internal Med Progress Note Date of Service: Sep 03, 2016. Provider Documentation: SUBJECTIVE: continues to feel well sitting on chair with legs elevated denies of any SOB or orthopnea no chest pain or cough OBJECTIVE: Vital Signs-as noted below Exam: General-no sign of distress Eyes-sclera non icteric ENT-NAD Lungs-CTA ,no wheeze or rales Heart-regular S1/S2 Abdomen-soft, non tender Extremities-+ 3 bilateral pitting edema Neuro-no focal neurological deficit Lab data as noted below. ASSESSMENT & PLAN: B/L LE EDEMA with wt gain of approx 25 lb in last few weeks Received Lasix 40mg IV in the ER venous Doppler of LE-negative for DVT ECHO : * No regional wall motion abnormalities noted. * Ejection Fraction = 55-60%. * Aortic valve sclerosis moderate, without significant aortic valvular stenosis. * There is mild mitral annular calcification. * There is trace mitral regurgitation. -no evidence of CHF given normal LV function , no SOB , DÍAZ , no pulmonary congestion -possible vol overload due to MAGEN on Lasix 40 mg IV Daily cont to monitor I's and O's and vol status Acute on CKD 4 creatine was 2 (08/05) creatine on admission 2.6 Cr improved 2.2 possible related to diuretic since pt increased it to 120 daily hold lisinopril for now Nephrology consulted , appreciate input started on IV Albumin follow PRP daily DM TYPE II Hba1c 6.2 on (07/22/16) Controlled hold PO meds insulin coverage continue lantus Pharmacy consulted for Glycemic management CARLITA on CPAP HTN Hold lisinopril due to elevating creatine BP stable monitor BP DVT moderate to high risk px on heparin subq Code Status DNR DISPOSITION to home when medically stable Vital Signs: Date Time Temp Pulse Resp B/P Pulse Ox O2 Delivery O2 Flow Rate FiO2 09/03/16 15:13 36.4 65 18 120/70 100 Room Air 09/03/16 07:40 Room Air 09/03/16 07:23 36.5 68 20 133/68 99 BiPAP 3.0 09/03/16 00:28 36.6 63 16 124/72 98 CPAP 4.0 09/02/16 23:30 CPAP 09/02/16 19:30 Room Air Lab Results: Results Past 24 Hours Test 09/02/16 20:18 09/03/16 06:40 09/03/16 07:30 09/03/16 11:20 Range/Units Bedside Glucose 125 108 167 70-99 mg/dl Sodium Level 148 136-145 mmol/L Potassium Level 3.7 3.5-5.1 mmol/L Chloride Level 114 98-107 mmol/L Carbon Dioxide Level 28 21-32 mmol/L Anion Gap 6.0 3-11 mmol/L Blood Urea Nitrogen 28 7-18 mg/dl Creatinine 2.20 0.60-1.40 mg/dl Est Creatinine Clear Calc Drug Dose 32.0 ml/min Estimated GFR () 30.3 Estimated GFR (Non- 26.2 BUN/Creatinine Ratio 12.9 10-20 Random Glucose 101 70-99 mg/dl Estimated Average Glucose 134 mg/dl Hemoglobin A1c 6.3 4.5-5.6 % Calcium Level 7.5 8.5-10.1 mg/dl
[2016-09-03] MEDS: FAMOTIDINE 20 MG TAB PO SCH (20:47)
[2016-09-03] MEDS: INSULIN GLARGINE SOLOSTAR 100 UNITS/ML 3 ML PEN SC SCH (20:51)
[2016-09-03 23:43] VITALS: BP 115/85; PULSE 85; TEMP 36.6; O2SAT 94
[2016-09-04] VITALS (8 sets, daily range): BP systolic 107–145; BP diastolic 62–79; PULSE 62–75; TEMP 36.3–36.7; O2SAT 96–100
[2016-09-04 05:58] LABS: HEMATOCRIT 26.6 % (42-52); MEAN CELL VOLUME 89.9 fL (80-100); MEAN CORPUSCULAR HEMOGLOBIN 29.7 pg (25-34); MEAN CORPUSCULAR HGB CONC 33.1 g/dl (32-36); RED BLOOD COUNT 2.96 M/uL (4.7-6.1); WHITE BLOOD COUNT 1.83 K/uL (4.8-10.8)
[2016-09-04 06:00] LABS: MEAN PLATELET VOLUME 9.9 fL (7.4-10.4); PLATELET COUNT 38 K/uL (130-400)
[2016-09-04] MEDS: HEPARIN SOD 5000 UNIT/0.5 ML CARP SQ SCH ×3 (06:10→21:05)
[2016-09-04 06:42] LABS: BUN/CREATININE RATIO 12.6 (10-20); CALCIUM 7.8 mg/dl (8.5-10.1); CREATININE 2.2 mg/dl (0.60-1.40); POTASSIUM 3.5 mmol/L (3.5-5.1)
[2016-09-04] MEDS: AMIODARONE 200 MG TAB PO SCH (07:38)
[2016-09-04] MEDS: ATORVASTATIN 20 MG TAB PO SCH (07:38)
[2016-09-04] MEDS: PANTOprazole SOD 40 MG TAB PO SCH (07:38)
[2016-09-04] MEDS: INSULIN ASPART 100 UNITS/ML 3 ML PEN SC SCH ×4 (08:48→21:04)
[2016-09-04] MEDS: ALBUMIN 25% 50 ML with FUROSEMIDE INJ 40 MG IV SCH ×4 (12:32→21:07)
--- NOTE | 2016-09-04 12:33 | PROGRESS NOTE ---
DATE: 09/04/2016 SUBJECTIVE: No new issues overnight. He continues to be massively edematous. He is making urine with the Lasix. His urine output is not adequately charted as he does not have a Domingo; however, his weight does not seem to have changed much in the last 2 days. He denies any shortness of breath. OBJECTIVE: VITAL SIGNS: Blood pressure 138/67, 100% on room air, uses CPAP at night. Mucous membrane is moist. NECK: Supple. No jugular venous distention. CHEST: Decreased breath sounds but clear to auscultation. CARDIOVASCULAR: Regular rate and rhythm, 2/6 systolic murmur heard. ABDOMEN: Soft, nontender. EXTREMITIES: Show 3+ edema with multiple rash as well as ulcers and signs of chronic venous stasis noted. LABORATORY TESTS: Hemoglobin 8.8, platelet count 38,000, WBC count 1.83. BUN 28, creatinine 2.0. Sodium 146, potassium 3.5, creatinine has steadily gone down from 2.6 three days ago to 2.2 now and is holding steady at this time. ASSESSMENT AND PLAN: 1. Acute kidney injury, nonoliguric. Baseline creatinine is in the low 2s and he has now got back to his baseline, but he is not urinating a whole lot and he still has massive edema and his weight is still same as when he came in. I would increase the Lasix/albumin to twice a day, possibly needs even more than that even at the expense of higher creatinine. It is also concerning to see all 3 cell count low. His platelet count is 38,000, white cell count is 1.83, and hemoglobin is 8.8. I would consider getting hematology input also. RAYNA
[2016-09-04] MEDS: FAMOTIDINE 20 MG TAB PO SCH (20:56)
[2016-09-04] MEDS: INSULIN GLARGINE SOLOSTAR 100 UNITS/ML 3 ML PEN SC SCH (21:04)
[2016-09-05] MEDS: HEPARIN SOD 5000 UNIT/0.5 ML CARP SQ SCH ×2 (06:23→13:58)
[2016-09-05 06:57] LABS: BUN/CREATININE RATIO 11.7 (10-20); CALCIUM 7.8 mg/dl (8.5-10.1); CREATININE 2.2 mg/dl (0.60-1.40); POTASSIUM 3.5 mmol/L (3.5-5.1)
[2016-09-05 07:24] VITALS: BP 137/69; PULSE 67; TEMP 36.7; O2SAT 96
--- NOTE | 2016-09-05 07:24 | Nephrology Progress Note ---
Nephrology Progress Note Date of Service: Sep 05, 2016. Subjective 86 yo male with pancytopenia with edema with lasix/albumin that was just increased yesterday to twice a day and pt says he noticed increased urination overnight and that his legs are much improved compared to admission. appetite is good. Objective Date Time Temp Pulse Resp B/P Pulse Ox O2 Delivery O2 Flow Rate FiO2 09/05/16 00:00 Room Air CPAP 09/04/16 23:42 36.5 62 18 124/65 96 Room Air 09/04/16 21:07 75 145/79 09/04/16 16:28 100 Room Air 09/04/16 15:05 36.7 65 18 107/67 96 Room Air 09/04/16 13:45 64 118/69 98 Room Air 09/04/16 12:45 65 112/62 98 Room Air 09/04/16 10:18 70 100 09/04/16 07:30 Room Air Physical Exam: General-aaox3 Eyes-no scleral icterus ENT-mmm Neck-supple Lungs-cta Heart-rrr Abdomen-bs+ s/nt/nd Extremities-+2 pitting edema Neuro-nonfocal Current Inpatient Medications Medications (Trade) Dose Ordered Sig/Gin Route Start Time Stop Time Status Last Admin Dose Admin Heparin Sodium (Porcine) (Heparin Sq 5000 Unit/0.5ml) 5,000 unit Q8H SQ 09/02/16 06:00 10/02/16 05:59 09/05/16 06:23 5,000 UNIT Ondansetron HCl (Zofran Inj) 4 mg Q6H PRN IV 09/01/16 20:45 10/01/16 20:44 Acetaminophen (Tylenol Tab) 650 mg Q4 PRN PO 09/01/16 21:15 10/01/16 21:14 Amiodarone HCl (Cordarone Tab) 200 mg DAILY PO 09/02/16 09:00 10/02/16 08:59 09/04/16 07:38 200 MG Atorvastatin Calcium (Lipitor Tab) 20 mg DAILY PO 09/02/16 09:00 10/02/16 08:59 09/04/16 07:38 20 MG Famotidine (Pepcid Tab) 20 mg QPM PO 09/02/16 21:00 10/02/16 20:59 09/04/16 20:56 20 MG Folic Acid (Folvite Tab) 1 mg DAILY PO 09/02/16 09:00 10/02/16 08:59 09/04/16 07:38 1 MG Pantoprazole Sodium (Protonix Tab) 40 mg DAILY PO 09/02/16 09:00 10/02/16 08:59 09/04/16 07:38 40 MG Insulin Aspart (novoLOG ASPART) SLIDING SCALE If C... ACHS NH 09/01/16 23:00 10/01/16 22:59 09/04/16 21:04 4 UNITS Glucose (Glucose 40% Gel) 15-30 GRAMS 15 GRAMS... UD PRN PO 09/01/16 21:15 10/01/16 21:14 Glucose (Glucose Chew Tab) 4-8 Tablets 4 Tabl... UD PRN PO 09/01/16 21:15 10/01/16 21:14 Dextrose (Dextrose 50% 50ML Syringe) 25-50ML OF 50% DW IV FOR... UD PRN IV 09/01/16 21:15 10/01/16 21:14 Glucagon (Glucagon Inj) 1 mg UD PRN SQ 09/01/16 21:15 10/01/16 21:14 Miscellaneous Information (Consult Glycemic Management Pharmacy) 1 ea UD PRN N/A 09/01/16 21:45 10/01/16 21:44 Insulin Glargine Per scale HS NH 09/02/16 21:00 10/02/16 20:59 09/04/16 21:04 20 UNIT Furosemide/ Albumin Human (Lasix Inj/ Albumin 25%) 54 ml @ 54 mls/hr BID IV 09/04/16 21:00 09/07/16 20:59 09/04/16 21:07 54 MLS/HR Last 24 Hours Test 09/04/16 07:23 09/04/16 11:24 09/04/16 16:27 09/04/16 20:22 Bedside Glucose 118 mg/dl 170 mg/dl 113 mg/dl 147 mg/dl Test 09/05/16 05:45 Sodium Level 146 mmol/L Potassium Level 3.5 mmol/L Chloride Level 112 mmol/L Carbon Dioxide Level 26 mmol/L Anion Gap 8.0 mmol/L Blood Urea Nitrogen 26 mg/dl Creatinine 2.20 mg/dl Est Creatinine Clear Calc Drug Dose 32.0 ml/min Estimated GFR () 30.3 Estimated GFR (Non- 26.2 BUN/Creatinine Ratio 11.7 Random Glucose 121 mg/dl Calcium Level 7.8 mg/dl Assessment & Plan izaiah on ckd stage 4-currently on albumin/lasix bid and diuresing better on the higher dose. ok with creatinine worsening if necessary. will leave on current diuretic dose since patient appears to be responding appropriately. no proteinuria on ua. to check spep, tsh and serum albumin levels.
[2016-09-05 09:04] VITALS: BP 137/69; PULSE 67; O2SAT 96
[2016-09-05] MEDS: PANTOprazole SOD 40 MG TAB PO SCH (09:05)
[2016-09-05] MEDS: AMIODARONE 200 MG TAB PO SCH (09:06)
[2016-09-05] MEDS: ATORVASTATIN 20 MG TAB PO SCH (09:06)
[2016-09-05] MEDS: INSULIN ASPART 100 UNITS/ML 3 ML PEN SC SCH ×4 (09:10→20:59)
[2016-09-05] MEDS: ALBUMIN 25% 50 ML with FUROSEMIDE INJ 40 MG IV SCH ×4 (09:13→21:10)
--- NOTE | 2016-09-05 12:44 | Pharmacy Progress Note ---
Glycemic Control: Progress Nt Date of Service Sep 05, 2016. Scope Glycemic Pharmacist consulted by Dr Avelar on 09/01/2016 for glycemic control and to write orders per [facility] inpatient glycemic control protocol. Objective Accuchecks BSG (last 24hrs): Test 09/04/16 11:24 09/04/16 16:27 09/04/16 20:22 09/05/16 05:45 Bedside Glucose 170 mg/dl (70-99) 113 mg/dl (70-99) 147 mg/dl (70-99) Random Glucose 121 mg/dl (70-99) Test 09/05/16 07:42 Bedside Glucose 117 mg/dl (70-99) Laboratory Data (last 24hrs) Test 09/05/16 05:45 Anion Gap 8.0 mmol/L BUN/Creatinine Ratio 11.7 Blood Urea Nitrogen 26 mg/dl Creatinine 2.20 mg/dl Potassium Level 3.5 mmol/L Sodium Level 146 mmol/L HbA1c: Test 09/03/16 06:40 Hemoglobin A1c 6.3 % (4.5-5.6) H Recent Pertinent Medications Outpatient Anti-diabetic Regimen: * Lantus 48 units HS plus Januvia 50 mg Qday and Prandin 2 mg AC * A1c = 6.3 % 09/03/2016 The patient is currently receiving: * Basal insulin: Lantus 20 units HS * Correctional Insulin: Novolog Correction per scale ACHS Goal Range: Low 120 mg/dL - High 150 mg/dL Correction Factor: 25 mg/dL/unit * Prandial insulin: Per carb ratio of 1 unit per 9 grams CHO consumed * Oral Agents: none Risk Factors for Insulin Resistance: * IVF: diuresis with Lasix + albumin * Diet: AHA/ low sodium/ Type 2 diabetic diet Assessment & Plan ASSESSMENT: * ADA & AACE recommend a goal blood sugar range 140-180 mg/dl for the majority of critically ill & non-critically ill patients. However, more stringent targets may be selected in individual cases. 09/02/16 * Type 2 diabetic admitted with MAGEN on CKD * He is treated with basal insulin and oral hypoglycemics as an outpatient, his level of glycemic control with this regimen is unclear- will check A1c * Fasting BSG 74 this AM w/ 30 units of Lantus on board - which is less than his home dosage; will reduce the dose even further to avoid low * The current CF and CR may need adjusted to allow for larger doses of each given h/o type 2 DM managed w/ 2 oral hypoglycemics, both of which target primarily post-prandial elevations 09/05/2016 * Ms Floyd has been well controlled over the weekend while receiving ~40 units per day and blood sugars remaining below 180 mg/dL. * He is tolerating his diet well and does not appear to require any additional changes to CF and CR. PLAN FOR INPATIENT GLYCEMIC CONTROL: * Continuing Lantus 20 units SQ HS * Continuing correction factor of 25 mg/dl/unit * Continuing carb ratio of 1 unit per 9 grams CHO consumed * Continuing goal range of Low 120 mg/dL - High 150 mg/dL RECOMMENDATIONS FOR DISCHARGE: * The patient has rather tight glycemic control with an A1C of 6.3%. Goal A1C most likely closer to 8-8.5% based on age, comorbidities, etc. Patient has been requiring half of his outpatient dosing while in the hospital. Outpatient basal insulin may be covering prandial needs. May consider empirically reducing outpatient insulin to prevent hypoglycemia. Thank you.
[2016-09-05 15:09] VITALS: BP_SYST 150; BP_SYST 151; BP_DIAS 76; BP_DIAS 81; PULSE 81; TEMP 36.3; O2SAT 95
--- NOTE | 2016-09-05 18:42 | Progress Note ---
Internal Med Progress Note Date of Service: Sep 04, 2016. Provider Documentation: late entry -pt seen on 09/04/16 at 5 : 30 pm SUBJECTIVE: denies of any SOB or chest discomfort bilateral lower extremity edema minimally improved no fever or chills OBJECTIVE: Vital Signs-as noted below Exam: General-no sign of distress Eyes-sclera non icteric ENT-NAD Lungs-CTA ,no wheeze or rales Heart-regular S1/S2 Abdomen-soft, non tender Extremities-+ 3 bilateral pitting edema Neuro-no focal neurological deficit Lab data as noted below. ASSESSMENT & PLAN: B/L LE EDEMA due to MAGEN /vol over load with wt gain of approx 25 lb in last few weeks venous Doppler of LE-negative for DVT ECHO : * No regional wall motion abnormalities noted. * Ejection Fraction = 55-60%. * Aortic valve sclerosis moderate, without significant aortic valvular stenosis. * There is mild mitral annular calcification. * There is trace mitral regurgitation. 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 creatine was 2 (08/05) creatine on admission 2.6 cont to hold lisinopril for now Nephrology consulted , appreciate input started on IV Albumin / cont IV Lasix for ongoing diuresis Cr remains stable at ~2 follow PRP daily DM TYPE II Hba1c 6.2 on (07/22/16) Controlled hold PO meds insulin coverage continue lantus Pharmacy consulted for Glycemic management CARLITA on CPAP HTN Hold lisinopril due to elevating creatine BP stable monitor BP DVT moderate to high risk px on heparin subq Code Status DNR DISPOSITION to home when medically stable PT/OT eval prior to discharge home Vital Signs: Date Time Temp Pulse Resp B/P Pulse Ox O2 Delivery O2 Flow Rate FiO2 09/05/16 16:45 Room Air 09/05/16 15:09 36.3 81 20 151/81 95 Room Air 150/76 09/05/16 10:22 Room Air 09/05/16 09:04 67 96 09/05/16 07:24 36.7 67 20 137/69 96 Room Air 09/05/16 00:00 Room Air CPAP 09/04/16 23:42 36.5 62 18 124/65 96 Room Air 09/04/16 21:07 75 145/79 Lab Results: Results Past 24 Hours Test 09/04/16 20:22 09/05/16 05:45 09/05/16 07:42 09/05/16 11:26 Range/Units Bedside Glucose 147 117 146 70-99 mg/dl Sodium Level 146 136-145 mmol/L Potassium Level 3.5 3.5-5.1 mmol/L Chloride Level 112 98-107 mmol/L Carbon Dioxide Level 26 21-32 mmol/L Anion Gap 8.0 3-11 mmol/L Blood Urea Nitrogen 26 7-18 mg/dl Creatinine 2.20 0.60-1.40 mg/dl Est Creatinine Clear Calc Drug Dose 32.0 ml/min Estimated GFR () 30.3 Estimated GFR (Non- 26.2 BUN/Creatinine Ratio 11.7 10-20 Random Glucose 121 70-99 mg/dl Calcium Level 7.8 8.5-10.1 mg/dl
[2016-09-05] MEDS ORDERED: INSULIN GLARGINE SOLOSTAR 100 UNITS/ML 3 ML PEN SC SCH (18:43)
--- NOTE | 2016-09-05 18:51 | Progress Note ---
Internal Med Progress Note Date of Service: Sep 05, 2016. Provider Documentation: SUBJECTIVE: feels much better , no complain of SOB or orthopnea , no fever or chills Daughter visiting OBJECTIVE: Vital Signs-as noted below Exam: General-no sign of distress Eyes-sclera non icteric ENT-NAD Lungs-CTA ,no wheeze or rales Heart-regular S1/S2 Abdomen-soft, non tender Extremities-+ 3 bilateral pitting edema -improved from prior Neuro-no focal neurological deficit Lab data as noted below. ASSESSMENT & PLAN: B/L LE EDEMA improved with IV Lasix and Albumin infusion due to MAGEN /vol over load with wt gain of approx 25 lb in last few weeks venous Doppler of LE-negative for DVT ECHO : * No regional wall motion abnormalities noted. * Ejection Fraction = 55-60%. * Aortic valve sclerosis moderate, without significant aortic valvular stenosis. * There is mild mitral annular calcification. * There is trace mitral regurgitation. -no evidence of CHF given normal LV function , no SOB , DÍAZ , no pulmonary congestion appreciate input form Nephrology cont IV Lasix 40 mg BID , IV albumin to mobilize fluids form 3 rd space currently negative balance of approx ~1 L monitor vol status -Daily wt to be checked on standing scale acute kidney injury on CKD 4 creatine was 2 (08/05) creatine on admission 2.6 cont to hold lisinopril for now Nephrology consulted , appreciate input started on IV Albumin / cont IV Lasix for ongoing diuresis Cr remains stable at ~2 follow PRP daily PANCYTOPENIA : -no sure of the etiology -D/c Sub Q heparin for low platelet count peripheral blood smear ordered heme onc consult requested follow daily CBC DM TYPE II Hba1c 6.2 on (07/22/16) Controlled hold PO meds insulin coverage continue lantus Pharmacy consulted for Glycemic management CARLITA on CPAP at night HTN Hold lisinopril due to elevating creatine BP stable monitor BP getting IV Lasix 40 mg BID DVT moderate to high risk D/c sub q heparin for thrombocytopenia Code Status DNR DISPOSITION to home when medically stable PT/OT eval prior to discharge home Vital Signs: Date Time Temp Pulse Resp B/P Pulse Ox O2 Delivery O2 Flow Rate FiO2 09/06/16 16:00 95 Room Air 09/06/16 14:55 36.3 62 18 129/66 95 Room Air 09/06/16 08:00 Room Air 09/06/16 07:28 36.2 76 22 144/75 99 BiPAP 09/06/16 00:25 36.6 69 18 144/75 95 Room Air 09/06/16 00:01 CPAP 09/05/16 22:09 36.6 66 18 130/72 99 Room Air 09/05/16 21:11 36.7 61 18 131/68 97 Room Air 09/05/16 20:00 Room Air Lab Results: Results Past 24 Hours Test 09/05/16 20:15 09/06/16 05:51 09/06/16 07:35 09/06/16 11:46 Range/Units Bedside Glucose 136 125 131 70-99 mg/dl White Blood Count 1.63 4.8-10.8 K/uL Red Blood Count 2.85 4.7-6.1 M/uL Hemoglobin 8.7 14.0-18.0 g/dL Hematocrit 26.0 42-52 % Mean Corpuscular Volume 91.2 80-100 fL Mean Corpuscular Hemoglobin 30.5 25-34 pg Mean Corpuscular Hemoglobin Concent 33.5 32-36 g/dl RDW Standard Deviation 51.5 36.4-46.3 fL RDW Coefficient of Variation 15.4 11.5-14.5 % Platelet Count 42 130-400 K/uL Mean Platelet Volume 10.8 7.4-10.4 fL Peripheral Blood Smear Path Consult Sodium Level 148 136-145 mmol/L Potassium Level 3.5 3.5-5.1 mmol/L Chloride Level 114 98-107 mmol/L Carbon Dioxide Level 26 21-32 mmol/L Anion Gap 8.0 3-11 mmol/L Blood Urea Nitrogen 22 7-18 mg/dl Creatinine 2.10 0.60-1.40 mg/dl Est Creatinine Clear Calc Drug Dose 33.6 ml/min Estimated GFR () 32.1 Estimated GFR (Non- 27.7 BUN/Creatinine Ratio 10.3 10-20 Random Glucose 119 70-99 mg/dl Calcium Level 7.6 8.5-10.1 mg/dl Iron Level 37 35-175 mcg/dl Total Iron Binding Capacity 213 250-450 mcg/dl Ferritin 36.7 8.0-388.0 ng/ml Albumin 2.7 3.4-5.0 gm/dl Thyroid Stimulating Hormone (TSH) 4.030 0.300-4.500 uIu/ml Heparin-PF4 Antibody Screen POS NEG
[2016-09-05] MEDS: FAMOTIDINE 20 MG TAB PO SCH (20:59)
[2016-09-05] MEDS: INSULIN GLARGINE SOLOSTAR 100 UNITS/ML 3 ML PEN SC SCH (21:09)
[2016-09-05 21:11] VITALS: BP 131/68; PULSE 61; TEMP 36.7; O2SAT 97
[2016-09-05 22:09] VITALS: BP 130/72; PULSE 66; TEMP 36.6; O2SAT 99
[2016-09-06 00:25] VITALS: BP 144/75; PULSE 69; TEMP 36.6; O2SAT 95
[2016-09-06 06:32] LABS: MEAN CELL VOLUME 91.2 fL (80-100); MEAN CORPUSCULAR HEMOGLOBIN 30.5 pg (25-34); MEAN CORPUSCULAR HGB CONC 33.5 g/dl (32-36); RED BLOOD COUNT 2.85 M/uL (4.7-6.1); WHITE BLOOD COUNT 1.63 K/uL (4.8-10.8)
[2016-09-06 06:35] LABS: MEAN PLATELET VOLUME 10.8 fL (7.4-10.4); PLATELET COUNT 42 K/uL (130-400)
[2016-09-06 06:59] LABS: BUN/CREATININE RATIO 10.3 (10-20); CALCIUM 7.6 mg/dl (8.5-10.1); CREATININE 2.1 mg/dl (0.60-1.40); POTASSIUM 3.5 mmol/L (3.5-5.1)
[2016-09-06 07:10] LABS: FERRITIN 36.7 ng/ml (8.0-388.0); THYROID STIMULATING HORMONE 4.03 uIu/ml (0.300-4.500)
[2016-09-06 07:28] VITALS: BP 144/75; PULSE 76; TEMP 36.2; O2SAT 99
[2016-09-06] MEDS: PANTOprazole SOD 40 MG TAB PO SCH (07:54)
[2016-09-06] MEDS: AMIODARONE 200 MG TAB PO SCH (07:55)
[2016-09-06] MEDS: ATORVASTATIN 20 MG TAB PO SCH (07:55)
[2016-09-06] MEDS: ALBUMIN 25% 50 ML with FUROSEMIDE INJ 40 MG IV SCH ×2 (08:23)
[2016-09-06] MEDS: INSULIN ASPART 100 UNITS/ML 3 ML PEN SC SCH ×4 (08:36→21:32)
--- NOTE | 2016-09-06 09:10 | Medical Consult ---
Consultation Date of Consultation: Sep 06, 2016. Attending Physician: Kenya Pearson M.D. Reason for Consultation: Consult for 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 while patient hospitalized for MAGEN History of Present Illness Mr. Floyd is a 86-year-old male who has a long-standing h/o thrombocytopenia. His platelet count was around 70,000 in 1999; his platelet count has remained around 50,000 in the past few years. 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 He is direct antiplatelet antibody positive, though he did not respond well with prednisone therapy. He also has known recurrent bladder cancer, initially diagnosed in 2001, for which he is under the care of Dr. Dangelo. In 2012, he had increasing hematuria for which he was evaluated by Dr. Dangelo. He received a platelet transfusion and underwent cystoscopic TURBT in September of 2012 and was found to have high-grade urothelial carcinoma with lamina propria invasion. The procedure was not a deep resection and was done mainly for palliation. The patient reported to [facility] on 09/01/2016 for bilateral lower extremity edema. He reportedly had gained 25 pounds from baseline, of uncertain origin, echocardiogram with preserved EF. He was up to 120 milligram of Lasix daily outpatient. He was found to have acute kidney injury on CKD stage 4. His lisinopril has been on hold therefore. Nephrology is on board; patient is currently on Lasix 40 milligram twice daily with albumin ; edema is reported to be improved. He was placed on heparin for DVT prophylaxis. With his low platelet count at baseline and dropping below 50 K during this hospitalization, a heparin screening antibody was ordered and is preliminarily positive. Confirmatory test pending. Heparin has been discontinued at this time. Additional history obtained from the patient and his daughter at bedside. He reports feeling overall fine. He is sitting up in a chair beside his bed. He has not had fever. He denies any cough or dyspnea during or prior to admission. He reports a healthy appetite and has not had nausea. He denies any hematochezia, melena or hematuria. No spontaneous bruising, though did bruise in right antecubital fossa from prior phlebotomy to admission. Past Medical/Surgical History Medical Problems: (1) Anasarca Status: Acute (2) Bilateral leg edema Status: Acute (3) Dyspnea on exertion Status: Acute (4) Right heart failure Status: Acute Family History FHx: heart disease Social History Smoking Status: Never Smoker Alcohol Use: none Drug Use: none Marital Status: Occupation Status: unemployed Allergies Coded Allergies: Propranolol (Verified Allergy, Unknown, 09/01/16) Codeine (Verified Adverse Reaction, Mild, NOTED "DOESNT TOLERATE WELL" , 09/01/16) Current Inpatient Medications Current Inpatient Medications Medications (Trade) Dose Ordered Sig/Gin Route Start Time Stop Time Status Last Admin Dose Admin Ondansetron HCl (Zofran Inj) 4 mg Q6H PRN IV 09/01/16 20:45 10/01/16 20:44 Acetaminophen (Tylenol Tab) 650 mg Q4 PRN PO 09/01/16 21:15 10/01/16 21:14 Amiodarone HCl (Cordarone Tab) 200 mg DAILY PO 09/02/16 09:00 10/02/16 08:59 09/06/16 07:55 200 MG Atorvastatin Calcium (Lipitor Tab) 20 mg DAILY PO 09/02/16 09:00 10/02/16 08:59 09/06/16 07:55 20 MG Famotidine (Pepcid Tab) 20 mg QPM PO 09/02/16 21:00 10/02/16 20:59 09/05/16 20:59 20 MG Folic Acid (Folvite Tab) 1 mg DAILY PO 09/02/16 09:00 10/02/16 08:59 09/06/16 07:54 1 MG Pantoprazole Sodium (Protonix Tab) 40 mg DAILY PO 09/02/16 09:00 10/02/16 08:59 09/06/16 07:54 40 MG Insulin Aspart (novoLOG ASPART) SLIDING SCALE If C... ACHS SC 09/01/16 23:00 10/01/16 22:59 09/06/16 08:36 9 UNITS Glucose (Glucose 40% Gel) 15-30 GRAMS 15 GRAMS... UD PRN PO 09/01/16 21:15 10/01/16 21:14 Glucose (Glucose Chew Tab) 4-8 Tablets 4 Tabl... UD PRN PO 09/01/16 21:15 10/01/16 21:14 Dextrose (Dextrose 50% 50ML Syringe) 25-50ML OF 50% DW IV FOR... UD PRN IV 09/01/16 21:15 10/01/16 21:14 Glucagon (Glucagon Inj) 1 mg UD PRN SQ 09/01/16 21:15 10/01/16 21:14 Miscellaneous Information 1 ea 1 ea UD PRN N/A 09/01/16 21:45 10/01/16 21:44 Furosemide/ Albumin Human (Lasix Inj/ Albumin 25%) 54 ml @ 54 mls/hr BID IV 09/04/16 21:00 09/07/16 20:59 09/06/16 08:23 54 MLS/HR Insulin Glargine (Lantus Solostar Pen) 20 unit HS SC 09/05/16 21:00 10/05/16 20:59 09/05/16 21:09 20 UNIT Review of Systems Constitutional: No chills, No fatigue, No fever Respiratory: No cough, No shortness of breath, No wheezing Cardiovascular: + edema, No chest pain Abdomen: No GI bleeding, No constipation, No diarrhea, No nausea, No pain, No vomiting Genitourinary - Male: No dysuria, No hematuria Integumentary: + rash (lower extremities, chronic) Physical Exam Date Time Temp Pulse Resp B/P Pulse Ox O2 Delivery O2 Flow Rate FiO2 09/06/16 07:28 36.2 76 22 144/75 99 BiPAP 09/06/16 00:25 36.6 69 18 144/75 95 Room Air 09/06/16 00:01 CPAP 09/05/16 22:09 36.6 66 18 130/72 99 Room Air 09/05/16 21:11 36.7 61 18 131/68 97 Room Air 09/05/16 20:00 Room Air 09/05/16 16:45 Room Air 09/05/16 15:09 36.3 81 20 151/81 95 Room Air 150/76 09/05/16 10:22 Room Air 09/05/16 09:04 67 96 General Appearance: WD/WN, no apparent distress Respiratory/Chest: lungs clear, no respiratory distress, no accessory muscle use Cardiovascular: regular rate, rhythm, + systolic murmur Abdomen/GI: normal bowel sounds, non tender, + distended Extremities/Musculoskelatal: no calf tenderness, + swelling (from knee down bilaterally, 2-3+ pitting) Neurologic/Psych: alert, oriented x 3 Skin: warm/dry, + rash (lower extremities, anteriorly, chronic) Laboratory Results 09/04/16 05:39 09/06/16 05:51 09/04/16 05:39 09/05/16 05:45 09/06/16 05:51 Test 09/03/16 11:20 09/03/16 16:30 09/03/16 20:11 09/04/16 05:39 Bedside Glucose 167 mg/dl (70-99) 97 mg/dl (70-99) 148 mg/dl (70-99) Red Blood Count 2.96 M/uL (4.7-6.1) Mean Corpuscular Volume 89.9 fL (80-100) Mean Corpuscular Hemoglobin 29.7 pg (25-34) Mean Corpuscular Hemoglobin Concent 33.1 g/dl (32-36) RDW Standard Deviation 49.7 fL (36.4-46.3) RDW Coefficient of Variation 15.3 % (11.5-14.5) Mean Platelet Volume 9.9 fL (7.4-10.4) Anion Gap 8.0 mmol/L (3-11) Est Creatinine Clear Calc Drug Dose 32.0 ml/min Estimated GFR () 30.3 Estimated GFR (Non- 26.2 BUN/Creatinine Ratio 12.6 (10-20) Calcium Level 7.8 mg/dl (8.5-10.1) Test 09/04/16 07:23 09/04/16 11:24 09/04/16 16:27 09/04/16 20:22 Bedside Glucose 118 mg/dl (70-99) 170 mg/dl (70-99) 113 mg/dl (70-99) 147 mg/dl (70-99) Test 09/05/16 05:45 09/05/16 07:42 09/05/16 11:26 09/05/16 16:17 Anion Gap 8.0 mmol/L (3-11) Est Creatinine Clear Calc Drug Dose 32.0 ml/min Estimated GFR () 30.3 Estimated GFR (Non- 26.2 BUN/Creatinine Ratio 11.7 (10-20) Calcium Level 7.8 mg/dl (8.5-10.1) Bedside Glucose 117 mg/dl (70-99) 146 mg/dl (70-99) 105 mg/dl (70-99) Test 09/05/16 20:15 09/06/16 05:51 09/06/16 07:35 Bedside Glucose 136 mg/dl (70-99) 125 mg/dl (70-99) Red Blood Count 2.85 M/uL (4.7-6.1) Mean Corpuscular Volume 91.2 fL (80-100) Mean Corpuscular Hemoglobin 30.5 pg (25-34) Mean Corpuscular Hemoglobin Concent 33.5 g/dl (32-36) RDW Standard Deviation 51.5 fL (36.4-46.3) RDW Coefficient of Variation 15.4 % (11.5-14.5) Mean Platelet Volume 10.8 fL (7.4-10.4) Peripheral Blood Smear Path Consult Anion Gap 8.0 mmol/L (3-11) Est Creatinine Clear Calc Drug Dose 33.6 ml/min Estimated GFR () 32.1 Estimated GFR (Non- 27.7 BUN/Creatinine Ratio 10.3 (10-20) Calcium Level 7.6 mg/dl (8.5-10.1) Iron Level 37 mcg/dl (35-175) Total Iron Binding Capacity 213 mcg/dl (250-450) Ferritin 36.7 ng/ml (8.0-388.0) Albumin 2.7 gm/dl (3.4-5.0) Thyroid Stimulating Hormone (TSH) 4.030 uIu/ml (0.300-4.500) Heparin-PF4 Antibody Screen POS (NEG) Chest x-ray from 09/01/2016: Left subclavian pacemaker and median sternotomy wires noted. Moderate cardiomegaly. No evidence of pulmonary edema. No pneumothorax or pleural effusion. Mild left basilar opacity fevers atelectasis. Bilateral lower extremity Dopplers from 09/02/2016: No DVT within either lower extremity. Assessment & Plan 1. Myelodysplastic syndrome- patient baselines are as follows: * WBC [id number] * Hgb 10 range * PLT 40-50K * Continue to monitor CBCD daily * Patient reports no active bleeding symptoms, infectious symptoms; UA on admission negative for hematuria * Agree to hold heparin in use for DVT prophylaxis for PLT < 50K * Heparin antibody screen positive, confirmatory testing pending; not suspecting HIT for small decline in PLT count from baseline 2. MAGEN on CKD Stage 4- lisinopril on hold, management per nephrology * Creatinine trending down to baseline in low 2 range * SPEP pending 3. Peripheral edema-patient current on 40 mg BID with albumin, management per nephrology; edema reported to be improved since admission Thanks for the consult. I performed history and physical examination of the patient. I have discussed the patient's case, impression and plan with Ny Leggtet PA-C. Her note reflects my findings and plan. In summary, he is a 86-year-old male, who has longstanding history of thrombocytopenia, antiplatelet antibody positive suggest bone marrow also shows low-grade MDS in 2009, earlier he did not respond well with the prednisone therapy, also has recurrent bladder cancer, now has pancytopenia likely related to the underlying 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. Because of his age and other comorbid conditions, I am not planning for aggressive diagnostic workup as well as management his case, should consider for blood transfusion or platelet transfusion as needed. Will follow up as outpatient. Dr. Manuel Brown Hem/Onc
--- NOTE | 2016-09-06 10:39 | Pharmacy Progress Note ---
Pharmacy Glycemic Sign Off Nt Date of Service Sep 06, 2016. Assessment & Plan ASSESSMENT: * Pharmacy was consulted by Dr Avelar on 09/01/16 for glycemic control and to write orders per [facility] inpatient glycemic control protocol. * Major changes made by pharmacy to antidiabetic regimen include: * Patient has been adequately controlled on a decreased dose of Lantus 20 units daily (60% decrease compared to home dose of 48 units). This indicates that home Lantus dose may also be covering prandial needs. * Patient has been requiring about 30-40 units of insulin per day for adequate glycemic control * BSGs ranging from 105 to 117 mg/dl over the past 24 hours. All BSGs this admission have been less than 180 mg/dL. * Regimen has only required minor adjustments to achieve this level of control (patient has not required a change since 09/02) * Do not anticipate further changes in patient status that would quickly deteriorate glycemic control (i.e. patient to be NPO for upcoming procedure, steroids tapering, starting tube feedings, etc). * Please see recommendations for outpatient antidiabetic regimen below. PLAN FOR INPATIENT GLYCEMIC CONTROL: No changes needed to current regimen. * Continue basal insulin with Lantus 20 units SQ qPM * Continue NovoLog per scale ACHS * Goal range = 120 - 150 mg/dl * CF = 25 mg/dl/unit * CR = 1 unit for ever 9 g CHO consumed * A1c added to discharge instructions to be communicated to PCP. * Pharmacy is signing off of glycemic consult and will no longer be making adjustments to inpatient regimen. Please feel free to re-consult if needed. Thank you. DISCHARGE RECOMMENDATIONS: * A1c 6.3 % on 09/03/16 * Resume oral antidiabetic medications * The patient has rather tight glycemic control with an A1C of 6.3%. Goal A1C most likely closer to 8-8.5% based on age, comorbidities, etc. Patient has been requiring half of his outpatient dosing while in the hospital. Outpatient basal insulin may be covering prandial needs. May consider empirically reducing outpatient insulin to prevent hypoglycemia.
[2016-09-06 14:55] VITALS: BP 129/66; PULSE 62; TEMP 36.3; O2SAT 95
[2016-09-06 16:00] VITALS: O2SAT 95
--- NOTE | 2016-09-06 16:24 | Nephrology Progress Note ---
Nephrology Progress Note Date of Service: Sep 06, 2016. Subjective 86 yo male with pancytopenia with edema with lasix/albumin. pt oob to chair and had legs elevated. pt feels good but continues to have swelling in legs. eating well. no sob. Objective Date Time Temp Pulse Resp B/P Pulse Ox O2 Delivery O2 Flow Rate FiO2 09/06/16 14:55 36.3 62 18 129/66 95 Room Air 09/06/16 08:00 Room Air 09/06/16 07:28 36.2 76 22 144/75 99 BiPAP 09/06/16 00:25 36.6 69 18 144/75 95 Room Air 09/06/16 00:01 CPAP 09/05/16 22:09 36.6 66 18 130/72 99 Room Air 09/05/16 21:11 36.7 61 18 131/68 97 Room Air 09/05/16 20:00 Room Air 09/05/16 16:45 Room Air Physical Exam: General-aaox3 Eyes-no scleral icterus ENT-mmm Neck-supple Lungs-clear Heart-regular Abdomen-bs+ s/nt/nd Extremities-+2 pitting edema Neuro-nonfocal Current Inpatient Medications Medications (Trade) Dose Ordered Sig/Gin Route Start Time Stop Time Status Last Admin Dose Admin Ondansetron HCl (Zofran Inj) 4 mg Q6H PRN IV 09/01/16 20:45 10/01/16 20:44 Acetaminophen (Tylenol Tab) 650 mg Q4 PRN PO 09/01/16 21:15 10/01/16 21:14 Amiodarone HCl (Cordarone Tab) 200 mg DAILY PO 09/02/16 09:00 10/02/16 08:59 09/06/16 07:55 200 MG Atorvastatin Calcium (Lipitor Tab) 20 mg DAILY PO 09/02/16 09:00 10/02/16 08:59 09/06/16 07:55 20 MG Famotidine (Pepcid Tab) 20 mg QPM PO 09/02/16 21:00 10/02/16 20:59 09/05/16 20:59 20 MG Folic Acid (Folvite Tab) 1 mg DAILY PO 09/02/16 09:00 10/02/16 08:59 09/06/16 07:54 1 MG Pantoprazole Sodium (Protonix Tab) 40 mg DAILY PO 09/02/16 09:00 10/02/16 08:59 09/06/16 07:54 40 MG Insulin Aspart (novoLOG ASPART) SLIDING SCALE If C... ACHS SC 09/01/16 23:00 10/01/16 22:59 09/06/16 12:46 6 UNITS Glucose (Glucose 40% Gel) 15-30 GRAMS 15 GRAMS... UD PRN PO 09/01/16 21:15 10/01/16 21:14 Glucose (Glucose Chew Tab) 4-8 Tablets 4 Tabl... UD PRN PO 09/01/16 21:15 10/01/16 21:14 Dextrose (Dextrose 50% 50ML Syringe) 25-50ML OF 50% DW IV FOR... UD PRN IV 09/01/16 21:15 10/01/16 21:14 Glucagon 1 mg 1 mg UD PRN SQ 09/01/16 21:15 10/01/16 21:14 Furosemide/ Albumin Human (Lasix Inj/ Albumin 25%) 54 ml @ 54 mls/hr BID IV 09/04/16 21:00 09/07/16 20:59 09/06/16 08:23 54 MLS/HR Insulin Glargine (Lantus Solostar Pen) 20 unit HS NE 09/05/16 21:00 10/05/16 20:59 09/05/16 21:09 20 UNIT Last 24 Hours Test 09/05/16 20:15 09/06/16 05:51 09/06/16 07:35 Bedside Glucose 136 mg/dl 125 mg/dl White Blood Count 1.63 K/uL Red Blood Count 2.85 M/uL Hemoglobin 8.7 g/dL Hematocrit 26.0 % Mean Corpuscular Volume 91.2 fL Mean Corpuscular Hemoglobin 30.5 pg Mean Corpuscular Hemoglobin Concent 33.5 g/dl RDW Standard Deviation 51.5 fL RDW Coefficient of Variation 15.4 % Platelet Count 42 K/uL Mean Platelet Volume 10.8 fL Peripheral Blood Smear Path Consult Sodium Level 148 mmol/L Potassium Level 3.5 mmol/L Chloride Level 114 mmol/L Carbon Dioxide Level 26 mmol/L Anion Gap 8.0 mmol/L Blood Urea Nitrogen 22 mg/dl Creatinine 2.10 mg/dl Est Creatinine Clear Calc Drug Dose 33.6 ml/min Estimated GFR () 32.1 Estimated GFR (Non- 27.7 BUN/Creatinine Ratio 10.3 Random Glucose 119 mg/dl Calcium Level 7.6 mg/dl Iron Level 37 mcg/dl Total Iron Binding Capacity 213 mcg/dl Ferritin 36.7 ng/ml Albumin 2.7 gm/dl Thyroid Stimulating Hormone (TSH) 4.030 uIu/ml Heparin-PF4 Antibody Screen POS Assessment & Plan izaiah on ckd stage 4-currently on albumin/lasix bid. still with significant edema. on fluid restriction and would like to raise the albumin/lasix to 80mg po bid. checking spep and checking prot/cr to be thorough. ua was bland. creatinine has improved from 2.6 to 2.1. hypernatremia-sodium levels in the high 140 but trying to mobilize the third spaced fluid as well as possible. should improve when he goes home. continue current fluid restriction. if sodium levels worsen above 150, will stop the fluid restriction.
--- NOTE | 2016-09-06 17:34 | Progress Note ---
Internal Med Progress Note Date of Service: Sep 06, 2016. Provider Documentation: SUBJECTIVE: feels fine , no SOB or orthopnea lower ext edema continued to improve OBJECTIVE: Vital Signs-as noted below Exam: General-no sign of distress Eyes-sclera non icteric ENT-NAD Lungs-CTA ,no wheeze or rales Heart-regular S1/S2 Abdomen-soft, non tender Extremities-+ 3 bilateral pitting edema -improved from prior Neuro-no focal neurological deficit Lab data as noted below. ASSESSMENT & PLAN: B/L LE EDEMA improved with IV Lasix and Albumin infusion presented with MAGEN /vol over load with wt gain of approx 25 lb in last few weeks venous Doppler of LE-negative for DVT ECHO : * No regional wall motion abnormalities noted. * Ejection Fraction = 55-60%. * Aortic valve sclerosis moderate, without significant aortic valvular stenosis. * There is mild mitral annular calcification. * There is trace mitral regurgitation. -no evidence of CHF given normal LV function , no SOB , DÍAZ , no pulmonary congestion appreciate input form Nephrology cont IV Lasix 40 mg BID , IV albumin to mobilize fluids form 3 rd space currently negative balance of approx ~1 L monitor vol status -Daily wt to be checked on standing scale acute kidney injury on CKD 4 creatine was 2 (08/05) creatine on admission 2.6 cont to hold lisinopril for now Nephrology consulted , appreciate input started on IV Albumin / cont IV Lasix for ongoing diuresis Cr remains stable at ~2 follow PRP daily PANCYTOPENIA : -appreciate input form Heme Onc hx of Myelodysplastic syndrome -D/c Sub Q heparin HIT positive -transient decrease of platelet count due to suq heparin no bleeding episode noted monitor CBC avoid antiplatelets , anticoagulants peripheral blood smear -suggestive of MDS follow daily CBC DM TYPE II Hba1c 6.2 on (07/22/16) Controlled hold PO meds insulin coverage continue lantus Pharmacy consulted for Glycemic management CARLITA on CPAP at night HTN Hold lisinopril due to elevating creatine BP stable monitor BP getting IV Lasix 40 mg BID DVT moderate to high risk D/c sub q heparin for thrombocytopenia MDS /positive HIT scd and teds ordered Code Status DNR DISPOSITION to home when medically stable PT/OT eval prior to discharge home Vital Signs: Date Time Temp Pulse Resp B/P Pulse Ox O2 Delivery O2 Flow Rate FiO2 09/07/16 16:00 Room Air 09/07/16 15:09 36.5 77 16 127/77 98 Room Air 09/07/16 08:00 Room Air 09/07/16 07:28 36.4 76 16 120/69 98 CPAP 09/07/16 00:35 36.3 92 22 158/76 98 Room Air 09/07/16 00:00 Room Air CPAP Lab Results: Results Past 24 Hours Test 09/06/16 20:11 09/07/16 06:30 09/07/16 07:41 09/07/16 11:14 Range/Units Bedside Glucose 133 131 221 70-99 mg/dl White Blood Count 1.81 4.8-10.8 K/uL Red Blood Count 2.79 4.7-6.1 M/uL Hemoglobin 8.5 14.0-18.0 g/dL Hematocrit 25.9 42-52 % Mean Corpuscular Volume 92.8 80-100 fL Mean Corpuscular Hemoglobin 30.5 25-34 pg Mean Corpuscular Hemoglobin Concent 32.8 32-36 g/dl RDW Standard Deviation 52.7 36.4-46.3 fL RDW Coefficient of Variation 15.6 11.5-14.5 % Platelet Count 42 130-400 K/uL Mean Platelet Volume 10.7 7.4-10.4 fL Sodium Level 146 136-145 mmol/L Potassium Level 3.6 3.5-5.1 mmol/L Chloride Level 113 98-107 mmol/L Carbon Dioxide Level 25 21-32 mmol/L Anion Gap 8.0 3-11 mmol/L Blood Urea Nitrogen 23 7-18 mg/dl Creatinine 1.90 0.60-1.40 mg/dl Est Creatinine Clear Calc Drug Dose 37.6 ml/min Estimated GFR () 36.2 Estimated GFR (Non- 31.2 BUN/Creatinine Ratio 12.2 10-20 Random Glucose 119 70-99 mg/dl Calcium Level 7.8 8.5-10.1 mg/dl Test 09/07/16 16:18 Range/Units Bedside Glucose 109 70-99 mg/dl
[2016-09-06 19:16] LABS: URINE PROTIEN/CREAT RATIO 0.1 (0-0.2); URINE TOTAL PROTEIN 15.6 mg/dl (0-11.9)
[2016-09-06] MEDS: ALBUMIN 25% 50 ML with FUROSEMIDE INJ 80 MG IV SCH ×2 (21:19)
[2016-09-06] MEDS: FAMOTIDINE 20 MG TAB PO SCH (21:26)
[2016-09-06] MEDS: INSULIN GLARGINE SOLOSTAR 100 UNITS/ML 3 ML PEN SC SCH (21:32)
[2016-09-07 00:35] VITALS: BP 158/76; PULSE 92; TEMP 36.3; O2SAT 98
[2016-09-07 07:12] LABS: HEMATOCRIT 25.9 % (42-52); MEAN CELL VOLUME 92.8 fL (80-100); MEAN CORPUSCULAR HEMOGLOBIN 30.5 pg (25-34); MEAN CORPUSCULAR HGB CONC 32.8 g/dl (32-36); RED BLOOD COUNT 2.79 M/uL (4.7-6.1); WHITE BLOOD COUNT 1.81 K/uL (4.8-10.8)
[2016-09-07 07:22] LABS: MEAN PLATELET VOLUME 10.7 fL (7.4-10.4); PLATELET COUNT 42 K/uL (130-400)
[2016-09-07 07:28] VITALS: BP 120/69; PULSE 76; TEMP 36.4; O2SAT 98
[2016-09-07 07:47] LABS: BUN/CREATININE RATIO 12.2 (10-20); CALCIUM 7.8 mg/dl (8.5-10.1); CREATININE 1.9 mg/dl (0.60-1.40); POTASSIUM 3.6 mmol/L (3.5-5.1)
[2016-09-07] MEDS: PANTOprazole SOD 40 MG TAB PO SCH (08:28)
[2016-09-07] MEDS: AMIODARONE 200 MG TAB PO SCH (08:28)
[2016-09-07] MEDS: ATORVASTATIN 20 MG TAB PO SCH (08:29)
[2016-09-07] MEDS: INSULIN ASPART 100 UNITS/ML 3 ML PEN SC SCH ×4 (08:32→21:21)
--- NOTE | 2016-09-07 08:37 | Nephrology Progress Note ---
Nephrology Progress Note Date of Service: Sep 07, 2016. Subjective 86 yo male with 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 with edema on lasix/albumin. increased diuretics yesterday to 80 iv bid. pt urinating well. pt feels his legs are much better. pt is excited [facility]. pt also doing a good job keeping his legs elevated. appetite is very good. Objective Date Time Temp Pulse Resp B/P Pulse Ox O2 Delivery O2 Flow Rate FiO2 09/07/16 07:28 36.4 76 16 120/69 98 CPAP 09/07/16 00:35 36.3 92 22 158/76 98 Room Air 09/07/16 00:00 Room Air CPAP 09/06/16 16:00 95 Room Air 09/06/16 14:55 36.3 62 18 129/66 95 Room Air Physical Exam: General-aaox3 Eyes-no scleral icterus ENT-mmm Neck-supple Lungs-cta Heart-rrr Abdomen-bs+ s/nt/nd Extremities-+2 pitting edema Neuro-nonfocal Current Inpatient Medications Medications (Trade) Dose Ordered Sig/Gin Route Start Time Stop Time Status Last Admin Dose Admin Ondansetron HCl (Zofran Inj) 4 mg Q6H PRN IV 09/01/16 20:45 10/01/16 20:44 Acetaminophen (Tylenol Tab) 650 mg Q4 PRN PO 09/01/16 21:15 10/01/16 21:14 Amiodarone HCl (Cordarone Tab) 200 mg DAILY PO 09/02/16 09:00 10/02/16 08:59 09/06/16 07:55 200 MG Atorvastatin Calcium (Lipitor Tab) 20 mg DAILY PO 09/02/16 09:00 10/02/16 08:59 09/06/16 07:55 20 MG Famotidine (Pepcid Tab) 20 mg QPM PO 09/02/16 21:00 10/02/16 20:59 09/06/16 21:26 20 MG Folic Acid (Folvite Tab) 1 mg DAILY PO 09/02/16 09:00 10/02/16 08:59 09/06/16 07:54 1 MG Pantoprazole Sodium (Protonix Tab) 40 mg DAILY PO 09/02/16 09:00 10/02/16 08:59 09/06/16 07:54 40 MG Insulin Aspart (novoLOG ASPART) SLIDING SCALE If C... ACHS SC 09/01/16 23:00 10/01/16 22:59 09/06/16 21:32 7 UNITS Glucose (Glucose 40% Gel) 15-30 GRAMS 15 GRAMS... UD PRN PO 09/01/16 21:15 10/01/16 21:14 Glucose (Glucose Chew Tab) 4-8 Tablets 4 Tabl... UD PRN PO 09/01/16 21:15 10/01/16 21:14 Dextrose (Dextrose 50% 50ML Syringe) 25-50ML OF 50% DW IV FOR... UD PRN IV 09/01/16 21:15 10/01/16 21:14 Glucagon (Glucagon Inj) 1 mg UD PRN SQ 09/01/16 21:15 10/01/16 21:14 Insulin Glargine 20 unit 20 unit HS SC 09/05/16 21:00 10/05/16 20:59 09/06/16 21:32 20 UNIT Furosemide/ Albumin Human (Lasix Inj/ Albumin 25%) 58 ml @ 54 mls/hr Q12H IV 09/06/16 21:00 09/09/16 20:59 09/06/16 21:19 54 MLS/HR Last 24 Hours Test 09/06/16 11:46 09/06/16 16:36 09/06/16 20:11 09/07/16 06:30 Bedside Glucose 131 mg/dl 123 mg/dl 133 mg/dl White Blood Count 1.81 K/uL Red Blood Count 2.79 M/uL Hemoglobin 8.5 g/dL Hematocrit 25.9 % Mean Corpuscular Volume 92.8 fL Mean Corpuscular Hemoglobin 30.5 pg Mean Corpuscular Hemoglobin Concent 32.8 g/dl RDW Standard Deviation 52.7 fL RDW Coefficient of Variation 15.6 % Platelet Count 42 K/uL Mean Platelet Volume 10.7 fL Sodium Level 146 mmol/L Potassium Level 3.6 mmol/L Chloride Level 113 mmol/L Carbon Dioxide Level 25 mmol/L Anion Gap 8.0 mmol/L Blood Urea Nitrogen 23 mg/dl Creatinine 1.90 mg/dl Est Creatinine Clear Calc Drug Dose 37.6 ml/min Estimated GFR () 36.2 Estimated GFR (Non- 31.2 BUN/Creatinine Ratio 12.2 Random Glucose 119 mg/dl Calcium Level 7.8 mg/dl Test 09/07/16 07:41 Bedside Glucose 131 mg/dl Assessment & Plan izaiah on ckd stage 4-currently on albumin/lasix bid and improving edema. creatinine continues to improve despite the diuresis and is now down to 1.9. no proteinuria when measured. spep is pending. continue current diuretics for now while in hospital. hypernatremia-sodium levels in the high 140. on fluid restriction and trying to mobilize the extra fluid.
[2016-09-07] MEDS: ALBUMIN 25% 50 ML with FUROSEMIDE INJ 80 MG IV SCH ×4 (09:22→21:14)
[2016-09-07 15:09] VITALS: BP 127/77; PULSE 77; TEMP 36.5; O2SAT 98
[2016-09-07 18:37] LABS: UFH HIGH DOSE 100 IU/ML 0 % Release; UFH SEROTONIN RELEASING ASSAY Negative (Negative)
--- NOTE | 2016-09-07 20:07 | Progress Note ---
Internal Med Progress Note Date of Service: Sep 07, 2016. Provider Documentation: SUBJECTIVE: sitting on chair with both feet remains elevated lower ext edema continues to improve no complain of SOB , or orthopnea comfortable OBJECTIVE: Vital Signs-as noted below Exam: General-no sign of distress , very pleasant Eyes-sclera non icteric ENT-NAD Lungs-CTA ,no wheeze or rales Heart-regular S1/S2 Abdomen-soft, non tender Extremities-+ 3 bilateral pitting edema -improved from prior Neuro-no focal neurological deficit Lab data as noted below. ASSESSMENT & PLAN: B/L LE EDEMA improved with IV Lasix and Albumin infusion on Negative balance of ~ 1 L izaiah on ckd stage 4-currently on albumin/lasix 80 mg IV bid and improving edema. creatinine continues to improve despite the diuresis and is now down to 1.9. venous Doppler of LE-negative for DVT ECHO : * No regional wall motion abnormalities noted. * Ejection Fraction = 55-60%. * Aortic valve sclerosis moderate, without significant aortic valvular stenosis. * There is mild mitral annular calcification. * There is trace mitral regurgitation. -no evidence of CHF given normal LV function , no SOB , DÍAZ , no pulmonary congestion appreciate input form Nephrology cont IV Lasix /V albumin to mobilize fluids form 3 rd space monitor vol status -Daily wt to be checked on standing scale acute kidney injury on CKD 4 creatine was 2 (08/05) improved 1.9 despite aggressive diuresis cont to hold lisinopril for now Nephrology consulted , appreciate input cont on IV Albumin / cont IV Lasix for ongoing diuresis follow PRP daily PANCYTOPENIA/MYELODYSPLASTIC SYNDROME : -appreciate input form Heme Onc hx of Myelodysplastic syndrome HIT positive -transient decrease of platelet count due to suq heparin SC Heparin d/trevor no bleeding episode noted avoid antiplatelets , anticoagulants peripheral blood smear -suggestive of MDS follow daily CBC DM TYPE II Hba1c 6.2 on (07/22/16) Controlled hold PO meds-can be resumed on discharge insulin coverage continue lantus Pharmacy consulted for Glycemic management CARLITA on CPAP at night HTN Hold lisinopril due to elevating creatine BP stable monitor BP getting IV Lasix 40 mg BID DVT moderate to high risk D/c sub q heparin for thrombocytopenia MDS /positive HIT scd and teds ordered Code Status DNR DISPOSITION to home when medically stable PT/OT eval prior to discharge home Vital Signs: Date Time Temp Pulse Resp B/P Pulse Ox O2 Delivery O2 Flow Rate FiO2 09/07/16 16:00 Room Air 09/07/16 15:09 36.5 77 16 127/77 98 Room Air 09/07/16 08:00 Room Air 09/07/16 07:28 36.4 76 16 120/69 98 CPAP 09/07/16 00:35 36.3 92 22 158/76 98 Room Air 09/07/16 00:00 Room Air CPAP Lab Results: Results Past 24 Hours Test 09/06/16 20:11 09/07/16 06:30 09/07/16 07:41 09/07/16 11:14 Range/Units Bedside Glucose 133 131 221 70-99 mg/dl White Blood Count 1.81 4.8-10.8 K/uL Red Blood Count 2.79 4.7-6.1 M/uL Hemoglobin 8.5 14.0-18.0 g/dL Hematocrit 25.9 42-52 % Mean Corpuscular Volume 92.8 80-100 fL Mean Corpuscular Hemoglobin 30.5 25-34 pg Mean Corpuscular Hemoglobin Concent 32.8 32-36 g/dl RDW Standard Deviation 52.7 36.4-46.3 fL RDW Coefficient of Variation 15.6 11.5-14.5 % Platelet Count 42 130-400 K/uL Mean Platelet Volume 10.7 7.4-10.4 fL Sodium Level 146 136-145 mmol/L Potassium Level 3.6 3.5-5.1 mmol/L Chloride Level 113 98-107 mmol/L Carbon Dioxide Level 25 21-32 mmol/L Anion Gap 8.0 3-11 mmol/L Blood Urea Nitrogen 23 7-18 mg/dl Creatinine 1.90 0.60-1.40 mg/dl Est Creatinine Clear Calc Drug Dose 37.6 ml/min Estimated GFR () 36.2 Estimated GFR (Non- 31.2 BUN/Creatinine Ratio 12.2 10-20 Random Glucose 119 70-99 mg/dl Calcium Level 7.8 8.5-10.1 mg/dl Test 09/07/16 16:18 Range/Units Bedside Glucose 109 70-99 mg/dl
[2016-09-07] MEDS: FAMOTIDINE 20 MG TAB PO SCH (20:12)
[2016-09-07] MEDS: INSULIN GLARGINE SOLOSTAR 100 UNITS/ML 3 ML PEN SC SCH (20:14)
[2016-09-07 23:16] VITALS: BP 129/71; PULSE 66; TEMP 36.6; O2SAT 98
[2016-09-08 05:41] LABS: ALBUMIN 2.7 G/DL (3.8-4.8); GAMMA GLOBULIN 0.8 G/DL (0.8-1.7); TOTAL PROTEIN 4.8 G/DL (6.2-8.3)
[2016-09-08 07:10] VITALS: BP 127/66; PULSE 69; TEMP 36.7; O2SAT 99
[2016-09-08 07:36] LABS: HEMATOCRIT 26.1 % (42-52); MEAN CELL VOLUME 92.6 fL (80-100); MEAN CORPUSCULAR HEMOGLOBIN 29.8 pg (25-34); MEAN CORPUSCULAR HGB CONC 32.2 g/dl (32-36); MEAN PLATELET VOLUME 10.9 fL (7.4-10.4); PLATELET COUNT 48 K/uL (130-400); RED BLOOD COUNT 2.82 M/uL (4.7-6.1); WHITE BLOOD COUNT 2.32 K/uL (4.8-10.8)
[2016-09-08] MEDS: AMIODARONE 200 MG TAB PO SCH (08:25)
[2016-09-08] MEDS: PANTOprazole SOD 40 MG TAB PO SCH (08:25)
[2016-09-08] MEDS: ATORVASTATIN 20 MG TAB PO SCH (08:25)
[2016-09-08] MEDS: INSULIN ASPART 100 UNITS/ML 3 ML PEN SC SCH ×4 (08:33→21:00)
[2016-09-08] MEDS: ALBUMIN 25% 50 ML with FUROSEMIDE INJ 80 MG IV SCH ×4 (08:36→21:46)
[2016-09-08 15:24] VITALS: BP 113/49; PULSE 70; TEMP 36.5; O2SAT 98
--- NOTE | 2016-09-08 15:52 | Nephrology Progress Note ---
Nephrology Progress Note Date of Service: Sep 08, 2016. Subjective 86 yo male with 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 with edema on lasix/albumin. on 80 iv bid and leg swelling is improving nicely. pt oob to chair with legs elevated and has keysha hose on as well. no cramping. urinated 4 liters today. Objective Date Time Temp Pulse Resp B/P Pulse Ox O2 Delivery O2 Flow Rate FiO2 09/08/16 15:24 36.5 70 20 113/49 98 Room Air 09/08/16 10:24 Room Air 09/08/16 07:10 36.7 69 20 127/66 99 CPAP 09/08/16 00:00 Room Air 09/07/16 23:16 36.6 66 20 129/71 98 Room Air 09/07/16 20:00 Room Air 09/07/16 16:00 Room Air Physical Exam: General-aaox3 Eyes-no scleral icterus ENT-mmm Neck-supple Lungs-clear Heart-regular Abdomen-bs+ s/nt/nd Extremities-+1 pitting edema Neuro-nonfocal Current Inpatient Medications Medications (Trade) Dose Ordered Sig/Gin Route Start Time Stop Time Status Last Admin Dose Admin Ondansetron HCl (Zofran Inj) 4 mg Q6H PRN IV 09/01/16 20:45 10/01/16 20:44 Acetaminophen (Tylenol Tab) 650 mg Q4 PRN PO 09/01/16 21:15 10/01/16 21:14 Amiodarone HCl (Cordarone Tab) 200 mg DAILY PO 09/02/16 09:00 10/02/16 08:59 09/08/16 08:25 200 MG Atorvastatin Calcium (Lipitor Tab) 20 mg DAILY PO 09/02/16 09:00 10/02/16 08:59 09/08/16 08:25 20 MG Famotidine (Pepcid Tab) 20 mg QPM PO 09/02/16 21:00 10/02/16 20:59 09/07/16 20:12 20 MG Folic Acid (Folvite Tab) 1 mg DAILY PO 09/02/16 09:00 10/02/16 08:59 09/08/16 08:25 1 MG Pantoprazole Sodium (Protonix Tab) 40 mg DAILY PO 09/02/16 09:00 10/02/16 08:59 09/08/16 08:25 40 MG Insulin Aspart (novoLOG ASPART) SLIDING SCALE If C... ACHS SC 09/01/16 23:00 10/01/16 22:59 09/08/16 13:36 5 UNITS Glucose (Glucose 40% Gel) 15-30 GRAMS 15 GRAMS... UD PRN PO 09/01/16 21:15 10/01/16 21:14 Glucose (Glucose Chew Tab) 4-8 Tablets 4 Tabl... UD PRN PO 09/01/16 21:15 10/01/16 21:14 Dextrose (Dextrose 50% 50ML Syringe) 25-50ML OF 50% DW IV FOR... UD PRN IV 09/01/16 21:15 10/01/16 21:14 Glucagon (Glucagon Inj) 1 mg UD PRN SQ 09/01/16 21:15 10/01/16 21:14 Insulin Glargine 20 unit 20 unit HS SC 09/05/16 21:00 10/05/16 20:59 09/07/16 20:14 20 UNIT Furosemide/ Albumin Human (Lasix Inj/ Albumin 25%) 58 ml @ 54 mls/hr Q12H IV 09/06/16 21:00 09/09/16 20:59 09/08/16 08:36 54 MLS/HR Last 24 Hours Test 09/07/16 16:18 09/07/16 20:30 09/08/16 06:28 09/08/16 07:40 Bedside Glucose 109 mg/dl 150 mg/dl 111 mg/dl White Blood Count 2.32 K/uL Red Blood Count 2.82 M/uL Hemoglobin 8.4 g/dL Hematocrit 26.1 % Mean Corpuscular Volume 92.6 fL Mean Corpuscular Hemoglobin 29.8 pg Mean Corpuscular Hemoglobin Concent 32.2 g/dl RDW Standard Deviation 52.4 fL RDW Coefficient of Variation 15.6 % Platelet Count 48 K/uL Mean Platelet Volume 10.9 fL Nucleated RBC Absolute Count (auto) 0.04 K/uL Nucleated Red Blood Cells % 1.9 % Test 09/08/16 11:30 09/08/16 15:35 Bedside Glucose 188 mg/dl Assessment & Plan izaiah on ckd stage 4-currently on albumin/lasix bid and edema improving. urinating very, very well. repeating bmp now. may have low k and or worsening creatinine. may need to reduce dose of lasix to 40 iv bid and or consider switching to orals since urinating very well now.
[2016-09-08 16:44] LABS: BUN/CREATININE RATIO 11.6 (10-20); CALCIUM 8.1 mg/dl (8.5-10.1); CREATININE 2.1 mg/dl (0.60-1.40); POTASSIUM 3.7 mmol/L (3.5-5.1)
--- NOTE | 2016-09-08 17:38 | Progress Note ---
Internal Med Progress Note Date of Service: Sep 08, 2016. Provider Documentation: SUBJECTIVE: continues to feel very well abdominal distention , lower ext edema has improved marked diuresis with negative balance of approx ~4 L in past 24 hrs OBJECTIVE: Vital Signs-as noted below Exam: General-no sign of distress , very pleasant Eyes-sclera non icteric ENT-NAD Lungs-CTA ,no wheeze or rales Heart-regular S1/S2 Abdomen-soft, non tender Extremities-+ improved bilateral pitting edema -Chidi hose present Neuro-no focal neurological deficit Lab data as noted below. ASSESSMENT & PLAN: B/L LE EDEMA/DUE TO MAGEN ON CKD STAGE $ improved with IV Lasix and Albumin infusion on Negative balance of ~ 4 L magen on ckd stage 4-currently on albumin/lasix 80 mg IV bid and improving edema. Nephrology following closely venous Doppler of LE-negative for DVT ECHO : * No regional wall motion abnormalities noted. * Ejection Fraction = 55-60%. * Aortic valve sclerosis moderate, without significant aortic valvular stenosis. * There is mild mitral annular calcification. * There is trace mitral regurgitation. -no evidence of CHF given normal LV function , no SOB , DÍAZ , no pulmonary congestion appreciate input form Nephrology plan to transition to PO Lasix tomorrow acute kidney injury on CKD 4 cont to hold lisinopril Nephrology consulted , appreciate input cont on IV Albumin / cont IV Lasix for ongoing diuresis follow PRP daily will need out pt BMP check on discharge PANCYTOPENIA/MYELODYSPLASTIC SYNDROME : -appreciate input form Heme Onc hx of Myelodysplastic syndrome HIT positive -transient decrease of platelet count due to suq heparin SC Heparin d/trevor no bleeding episode noted avoid antiplatelets , anticoagulants peripheral blood smear -suggestive of MDS platelet count remains stable will need out pt Lab check DM TYPE II Hba1c 6.2 on (07/22/16) Controlled hold PO meds-can be resumed on discharge insulin coverage continue lantus Pharmacy consulted for Glycemic management CARLITA on CPAP at night DVT moderate to high risk D/c sub q heparin for thrombocytopenia MDS /positive HIT scd and teds ordered Code Status DNR DISPOSITION possible discharge home with home health tomorrow Medicine follow up with Dr Anastacio Garza Nephrology follow up with Dr Alona Chong Vital Signs: Date Time Temp Pulse Resp B/P Pulse Ox O2 Delivery O2 Flow Rate FiO2 09/08/16 16:00 Room Air 09/08/16 15:24 36.5 70 20 113/49 98 Room Air 09/08/16 10:24 Room Air 09/08/16 07:10 36.7 69 20 127/66 99 CPAP 09/08/16 00:00 Room Air 09/07/16 23:16 36.6 66 20 129/71 98 Room Air 09/07/16 20:00 Room Air Lab Results: Results Past 24 Hours Test 09/07/16 20:30 09/08/16 06:28 09/08/16 07:40 09/08/16 11:30 Range/Units Bedside Glucose 150 111 188 70-99 mg/dl White Blood Count 2.32 4.8-10.8 K/uL Red Blood Count 2.82 4.7-6.1 M/uL Hemoglobin 8.4 14.0-18.0 g/dL Hematocrit 26.1 42-52 % Mean Corpuscular Volume 92.6 80-100 fL Mean Corpuscular Hemoglobin 29.8 25-34 pg Mean Corpuscular Hemoglobin Concent 32.2 32-36 g/dl RDW Standard Deviation 52.4 36.4-46.3 fL RDW Coefficient of Variation 15.6 11.5-14.5 % Platelet Count 48 130-400 K/uL Mean Platelet Volume 10.9 7.4-10.4 fL Nucleated RBC Absolute Count (auto) 0.04 0-0 K/uL Nucleated Red Blood Cells % 1.9 % Test 09/08/16 15:50 09/08/16 16:34 Range/Units Sodium Level 146 136-145 mmol/L Potassium Level 3.7 3.5-5.1 mmol/L Chloride Level 113 98-107 mmol/L Carbon Dioxide Level 28 21-32 mmol/L Anion Gap 5.0 3-11 mmol/L Blood Urea Nitrogen 24 7-18 mg/dl Creatinine 2.10 0.60-1.40 mg/dl Est Creatinine Clear Calc Drug Dose 34.0 ml/min Estimated GFR () 32.1 Estimated GFR (Non- 27.7 BUN/Creatinine Ratio 11.6 10-20 Random Glucose 113 70-99 mg/dl Calcium Level 8.1 8.5-10.1 mg/dl Bedside Glucose 121 70-99 mg/dl
--- NOTE | 2016-09-08 18:10 | Discharge Instructions ---
Discharge Instructions Date of Service Sep 08, 2016. Admission Reason for Admission: Bilateral Leg Edema Discharge Discharge Diagnosis / Problem: CKD STAGE 4 /MYELODYSPLASTIC SYNDROME Discharge Goals Goal(s): Decrease discomfort, Improve function, Improve disease control, Diagnostic testing, Therapeutic intervention Activity Recommendations Activity Limitations: resume your previous activity . Instructions / Follow-Up Instructions / Follow-Up HOSPITAL FOLLOW UP ON 09/13/2016 @ 11:[address] Anastacio Garza MD [facility] LAB WORK : COMPLETE BLOOD COUNT, BASIC METABOLIC PANEL ON 09/13/16 NEPHROLOGY FOLLOW UP ON 10/12/2016 @ 11:[address] Jeremy Burgos MD Nephrology, [facility] Diet Patient's current hospital diet: AHA Diet (Heart Healthy), Low Sodium Diet (2gm Na), Diabetes Type 2 Diet Discharge Diet Recommended Diet: AHA Diet (Heart Healthy) Fluid Restriction: 2000 ml (8 cups) Pending Studies Studies pending at discharge: yes List of pending studies: LAB WORK : COMPLETE BLOOD COUNT, BASIC METABOLIC PANEL ON 09/13/16 Laboratory Results Hemoglobin A1c Test 09/03/16 06:40 Range/Units Estimated Average Glucose 134 mg/dl Hemoglobin A1c 6.3 H 4.5-5.6 % Medical Emergencies . Who to Call and When: Medical Emergencies: If at any time you feel your situation is an emergency, please call 911 immediately. . Non-Emergent Contact Non-Emergency issues call your: Primary Care Provider, Diversity Manager (DR JEREMY BURGOS ) . . "Provider Documentation" section prepared by Kenya Pearson. . VTE Core Measure Inpt VTE Proph given/why not?: Unfractionated heparin SQ [place] Drug Monitoring Program Search Results: no issues identified
[2016-09-08] MEDS: FAMOTIDINE 20 MG TAB PO SCH (21:47)
[2016-09-08] MEDS: INSULIN GLARGINE SOLOSTAR 100 UNITS/ML 3 ML PEN SC SCH (21:51)
[2016-09-08 22:57] VITALS: BP 149/75; PULSE 64; TEMP 36.7; O2SAT 100
[2016-09-09 06:05] LABS: HEMATOCRIT 26.4 % (42-52); MEAN CELL VOLUME 93.3 fL (80-100); MEAN CORPUSCULAR HEMOGLOBIN 31.1 pg (25-34); MEAN CORPUSCULAR HGB CONC 33.3 g/dl (32-36); RED BLOOD COUNT 2.83 M/uL (4.7-6.1); WHITE BLOOD COUNT 1.96 K/uL (4.8-10.8)
[2016-09-09 06:07] LABS: MEAN PLATELET VOLUME 9.9 fL (7.4-10.4); PLATELET COUNT 40 K/uL (130-400)
[2016-09-09 06:45] LABS: BUN/CREATININE RATIO 11.2 (10-20); CALCIUM 8.1 mg/dl (8.5-10.1); CREATININE 2.3 mg/dl (0.60-1.40); POTASSIUM 3.6 mmol/L (3.5-5.1)
[2016-09-09 08:00] VITALS: O2SAT 100
[2016-09-09 08:13] VITALS: BP 118/57; PULSE 68; TEMP 36.4; O2SAT 97
[2016-09-09] MEDS: AMIODARONE 200 MG TAB PO SCH (08:49)
[2016-09-09] MEDS: PANTOprazole SOD 40 MG TAB PO SCH (08:49)
[2016-09-09] MEDS: ATORVASTATIN 20 MG TAB PO SCH (08:49)
[2016-09-09] MEDS: ALBUMIN 25% 50 ML with FUROSEMIDE INJ 80 MG IV SCH ×2 (08:51)
[2016-09-09] MEDS: INSULIN ASPART 100 UNITS/ML 3 ML PEN SC SCH ×2 (09:02→11:56)
[2016-09-09 12:18] VITALS: BP 118/57; PULSE 68; TEMP 36.4; O2SAT 97
--- NOTE | 2016-09-09 13:18 | Nephrology Progress Note ---
Nephrology Progress Note Date of Service: Sep 09, 2016. Subjective 86 yo male with 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 with edema on lasix/albumin. on 80 iv bid and leg swelling is much better but still +2 in the upper extremities. pt oob to chair with legs elevated and has keysha hose on as well. Objective Date Time Temp Pulse Resp B/P Pulse Ox O2 Delivery O2 Flow Rate FiO2 09/09/16 12:18 36.4 68 16 97 Room Air CPAP 09/09/16 08:13 36.4 68 16 118/57 97 Nasal Cannula 09/09/16 08:00 100 Room Air 09/09/16 00:00 Room Air 09/08/16 22:57 36.7 64 20 149/75 100 BiPAP 09/08/16 20:01 Room Air 09/08/16 16:00 Room Air 09/08/16 15:24 36.5 70 20 113/49 98 Room Air Physical Exam: General-aaox3 Eyes-no scleral icterus ENT-mmm Neck-supple Lungs-cta Heart-regular Abdomen-bs+ s/nt/nd Extremities-+2 pitting edema in the upper extremities Neuro-nonfocal Current Inpatient Medications Medications (Trade) Dose Ordered Sig/Gin Route Start Time Stop Time Status Last Admin Dose Admin Ondansetron HCl (Zofran Inj) 4 mg Q6H PRN IV 09/01/16 20:45 10/01/16 20:44 Acetaminophen (Tylenol Tab) 650 mg Q4 PRN PO 09/01/16 21:15 10/01/16 21:14 Amiodarone HCl (Cordarone Tab) 200 mg DAILY PO 09/02/16 09:00 10/02/16 08:59 09/09/16 08:49 200 MG Atorvastatin Calcium (Lipitor Tab) 20 mg DAILY PO 09/02/16 09:00 10/02/16 08:59 09/09/16 08:49 20 MG Famotidine (Pepcid Tab) 20 mg QPM PO 09/02/16 21:00 10/02/16 20:59 09/08/16 21:47 20 MG Folic Acid (Folvite Tab) 1 mg DAILY PO 09/02/16 09:00 10/02/16 08:59 09/09/16 08:49 1 MG Pantoprazole Sodium (Protonix Tab) 40 mg DAILY PO 09/02/16 09:00 10/02/16 08:59 09/09/16 08:49 40 MG Insulin Aspart (novoLOG ASPART) SLIDING SCALE If C... ACHS SC 09/01/16 23:00 10/01/16 22:59 09/09/16 11:56 4 UNITS Glucose (Glucose 40% Gel) 15-30 GRAMS 15 GRAMS... UD PRN PO 09/01/16 21:15 10/01/16 21:14 Glucose (Glucose Chew Tab) 4-8 Tablets 4 Tabl... UD PRN PO 09/01/16 21:15 10/01/16 21:14 Dextrose (Dextrose 50% 50ML Syringe) 25-50ML OF 50% DW IV FOR... UD PRN IV 09/01/16 21:15 10/01/16 21:14 Glucagon (Glucagon Inj) 1 mg UD PRN SQ 09/01/16 21:15 10/01/16 21:14 Insulin Glargine 20 unit 20 unit HS SC 09/05/16 21:00 10/05/16 20:59 09/08/16 21:51 20 UNIT Furosemide/ Albumin Human (Lasix Inj/ Albumin 25%) 58 ml @ 54 mls/hr Q12H IV 09/06/16 21:00 09/09/16 20:59 09/09/16 08:51 54 MLS/HR Last 24 Hours Test 09/08/16 15:50 09/08/16 16:34 09/08/16 20:07 09/09/16 05:32 Sodium Level 146 mmol/L 147 mmol/L Potassium Level 3.7 mmol/L 3.6 mmol/L Chloride Level 113 mmol/L 113 mmol/L Carbon Dioxide Level 28 mmol/L 27 mmol/L Anion Gap 5.0 mmol/L 7.0 mmol/L Blood Urea Nitrogen 24 mg/dl 26 mg/dl Creatinine 2.10 mg/dl 2.30 mg/dl Est Creatinine Clear Calc Drug Dose 34.0 ml/min 31.0 ml/min Estimated GFR () 32.1 28.7 Estimated GFR (Non- 27.7 24.8 BUN/Creatinine Ratio 11.6 11.2 Random Glucose 113 mg/dl 123 mg/dl Calcium Level 8.1 mg/dl 8.1 mg/dl Bedside Glucose 121 mg/dl 147 mg/dl White Blood Count 1.96 K/uL Red Blood Count 2.83 M/uL Hemoglobin 8.8 g/dL Hematocrit 26.4 % Mean Corpuscular Volume 93.3 fL Mean Corpuscular Hemoglobin 31.1 pg Mean Corpuscular Hemoglobin Concent 33.3 g/dl RDW Standard Deviation 53.6 fL RDW Coefficient of Variation 15.6 % Platelet Count 40 K/uL Mean Platelet Volume 9.9 fL Test 09/09/16 07:51 09/09/16 11:06 Bedside Glucose 132 mg/dl 166 mg/dl Assessment & Plan ckd stage 4-creatinine stable in the low 2s. no proteinuria. was negative about 4 liters yesterday. no lightheadedness. ok with sending home if acceptable from primary hospitalist. would send home on lasix 80mg po bid and recheck bmp again on monday. follow weights at home. call if lightheaded. still trying to remove fluid as tolerated.
--- NOTE | 2016-09-09 14:30 | Progress Note ---
Subjective Date of Service: Sep 09, 2016. Subjective Pt evaluation today including: conversation w/ patient, physical exam, lab review, review of studies, review of inpatient medication list Saw/examined the patient in room 258 Doing well today, has no complaints +Swelling in the legs persists has DINA stockings on No chest pain or shortness of breath Problem List Medical Problems: (1) Anasarca Status: Acute (2) Bilateral leg edema Status: Acute (3) Dyspnea on exertion Status: Acute (4) Right heart failure Status: Acute Review of Systems Respiratory: No cough, No shortness of breath, No sputum Cardiac: + edema, No chest pain, No palpitations Heme: No abnormal bleeding/bruising Medications Current Inpatient Medications Medications (Trade) Dose Ordered Sig/Gin Route Start Time Stop Time Status Last Admin Dose Admin Ondansetron HCl (Zofran Inj) 4 mg Q6H PRN IV 09/01/16 20:45 10/01/16 20:44 Acetaminophen (Tylenol Tab) 650 mg Q4 PRN PO 09/01/16 21:15 10/01/16 21:14 Amiodarone HCl (Cordarone Tab) 200 mg DAILY PO 09/02/16 09:00 10/02/16 08:59 09/09/16 08:49 200 MG Atorvastatin Calcium (Lipitor Tab) 20 mg DAILY PO 09/02/16 09:00 10/02/16 08:59 09/09/16 08:49 20 MG Famotidine (Pepcid Tab) 20 mg QPM PO 09/02/16 21:00 10/02/16 20:59 09/08/16 21:47 20 MG Folic Acid (Folvite Tab) 1 mg DAILY PO 09/02/16 09:00 10/02/16 08:59 09/09/16 08:49 1 MG Pantoprazole Sodium (Protonix Tab) 40 mg DAILY PO 09/02/16 09:00 10/02/16 08:59 09/09/16 08:49 40 MG Insulin Aspart (novoLOG ASPART) SLIDING SCALE If C... ACHS SC 09/01/16 23:00 10/01/16 22:59 09/09/16 11:56 4 UNITS Glucose (Glucose 40% Gel) 15-30 GRAMS 15 GRAMS... UD PRN PO 09/01/16 21:15 10/01/16 21:14 Glucose (Glucose Chew Tab) 4-8 Tablets 4 Tabl... UD PRN PO 09/01/16 21:15 10/01/16 21:14 Dextrose (Dextrose 50% 50ML Syringe) 25-50ML OF 50% DW IV FOR... UD PRN IV 09/01/16 21:15 10/01/16 21:14 Glucagon (Glucagon Inj) 1 mg UD PRN SQ 09/01/16 21:15 10/01/16 21:14 Insulin Glargine 20 unit 20 unit HS SC 09/05/16 21:00 10/05/16 20:59 09/08/16 21:51 20 UNIT Furosemide/ Albumin Human (Lasix Inj/ Albumin 25%) 58 ml @ 54 mls/hr Q12H IV 09/06/16 21:00 09/09/16 20:59 09/09/16 08:51 54 MLS/HR Objective Vital Signs Date Time Temp Pulse Resp B/P Pulse Ox O2 Delivery O2 Flow Rate FiO2 09/09/16 12:18 36.4 68 16 97 Room Air CPAP 09/09/16 08:13 36.4 68 16 118/57 97 Nasal Cannula 09/09/16 08:00 100 Room Air 09/09/16 00:00 Room Air 09/08/16 22:57 36.7 64 20 149/75 100 BiPAP 09/08/16 20:01 Room Air 09/08/16 16:00 Room Air 09/08/16 15:24 36.5 70 20 113/49 98 Room Air Physical Exam General Appearance: no apparent distress Respiratory/Chest: lungs clear, normal breath sounds, no respiratory distress, no accessory muscle use Cardiovascular: regular rate, rhythm, no murmur Extremities: + pedal edema, + swelling (+3 edema pitting, b/l UE and LE) Neurologic/Psychiatric: no motor/sensory deficits, alert, normal mood/affect Laboratory Results Last 24 Hours Test 09/08/16 15:50 09/08/16 16:34 09/08/16 20:07 09/09/16 05:32 Sodium Level 146 mmol/L 147 mmol/L Potassium Level 3.7 mmol/L 3.6 mmol/L Chloride Level 113 mmol/L 113 mmol/L Carbon Dioxide Level 28 mmol/L 27 mmol/L Anion Gap 5.0 mmol/L 7.0 mmol/L Blood Urea Nitrogen 24 mg/dl 26 mg/dl Creatinine 2.10 mg/dl 2.30 mg/dl Est Creatinine Clear Calc Drug Dose 34.0 ml/min 31.0 ml/min Estimated GFR () 32.1 28.7 Estimated GFR (Non- 27.7 24.8 BUN/Creatinine Ratio 11.6 11.2 Random Glucose 113 mg/dl 123 mg/dl Calcium Level 8.1 mg/dl 8.1 mg/dl Bedside Glucose 121 mg/dl 147 mg/dl White Blood Count 1.96 K/uL Red Blood Count 2.83 M/uL Hemoglobin 8.8 g/dL Hematocrit 26.4 % Mean Corpuscular Volume 93.3 fL Mean Corpuscular Hemoglobin 31.1 pg Mean Corpuscular Hemoglobin Concent 33.3 g/dl RDW Standard Deviation 53.6 fL RDW Coefficient of Variation 15.6 % Platelet Count 40 K/uL Mean Platelet Volume 9.9 fL Test 09/09/16 07:51 09/09/16 11:06 Bedside Glucose 132 mg/dl 166 mg/dl Assessment and Plan This is an 86 year old male with PMH of COPD, CARLITA on CPAP, DM2, CKD stage 4, HTN , HLD presented to the hospital after being sent by PCP due to significant bilateral lower extremity edema Bilateral Lower Extremity Edema in the setting of CKD stage 4 patient presented with significant lower extremity edema He has been receiving Albumin + Lasix combination Appreciate nephrology input on this Lower Extremity venous dopplers = negative for DVT echo = normal LVEF, no LV outflow obstruction has had a significant negative fluid balance will need to continue to have negative balance as outpatient switched from IV to PO Lasix 80mg BID outpatient nephrology and PCP f/u outpatient BMP on September 14 Acute Kidney Injury superimposed on CKD stage 4 hold lisinopril for now continue Lasix creatinine improving; back to around his baseline of 2.3 outpatient BMP Pancytopenia secondary to Myelodysplastic Syndrome appreciate Hem/Onc input 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
[2016-09-09] MEDS ORDERED: INSDGI SC (14:33)
[2016-09-09] MEDS ORDERED: LSX40 PO (14:33)
--- NOTE | 2016-09-09 14:39 | Discharge Instructions ---
Discharge Instructions Date of Service Sep 09, 2016. Admission Reason for Admission: Bilateral Leg Edema Discharge Discharge Diagnosis / Problem: Bilateral Lower Extremity Edema Discharge Goals Goal(s): Decrease discomfort, Improve function, Diagnostic testing, Therapeutic intervention Activity Recommendations Activity Limitations: resume your previous activity . Instructions / Follow-Up Instructions / Follow-Up Please follow-up with Dr. Garza on September 13 @ 11:20AM You will have your blood drawn (CBC and BMP) on September 13 Please follow-up with Dr. Chong, Nephrology on October 12 @ 11:20AM * You will be taking Lasix 80mg twice a day until you get your lab drawn; further adjustments as per PCP and nephrology * Your dose of Insulin is decreased to 24 units instead of 48 units - please check your BSGs twice a day and bring to PCP's office Current Hospital Diet Patient's current hospital diet: AHA Diet (Heart Healthy), Low Sodium Diet (2gm Na), Diabetes Type 2 Diet Discharge Diet Recommended Diet: AHA Diet (Heart Healthy), Low Sodium Diet (2gm Na), Diabetes Type 2 Diet Pending Studies Studies pending at discharge: no Laboratory Results Hemoglobin A1c Test 09/03/16 06:40 Range/Units Estimated Average Glucose 134 mg/dl Hemoglobin A1c 6.3 H 4.5-5.6 % Medical Emergencies . Who to Call and When: Medical Emergencies: If at any time you feel your situation is an emergency, please call 911 immediately. . Non-Emergent Contact Non-Emergency issues call your: Primary Care Provider, Housekeeping Coordinator . . "Provider Documentation" section prepared by Quang Saleh. . VTE Core Measure Inpt VTE Proph given/why not?: Unfractionated heparin SQ (initially, then SCDs) , T.ENancy Roque, SCD's
--- NOTE | 2016-09-09 14:42 | Discharge Summary ---
Discharge Summary Date of Service Sep 09, 2016. Discharge Summary Admission Date: Sep 01, 2016 at 20:41 Discharge Date: Sep 09, 2016 Discharge Disposition: Home Principal Diagnosis: Bilateral Lower Extremity Edema Acute Kidney Injury superimposed on CKD stage 4 Medication Reconciliation New Medications: Furosemide (Furosemide) 40 Mg Tab 80 MG PO BID for 10 Days, #40 TABS Changed Medications: Insulin Glargine (Lantus) 100 Unit/Ml Inj 24 UNITS SC HS for 30 Days, #1 VIAL (Changed from: 48 UNITS) Continued Medications: Acetaminophen Tab (Tylenol) 325 Mg Tab 650 MG PO Q4 PRN for Fever, TAB NOT TO EXCEED 3000MG APAP/24HR Amiodarone HCl (Amiodarone HCl) 200 Mg Tab 200 MG PO DAILY, TAB Atorvastatin (Lipitor) 20 Mg Tab 20 MG PO DAILY, TAB Famotidine (Pepcid) 20 Mg Tab 20 MG PO QPM, TAB Fluticasone Propionate (Nasal) (Flonase Allergy Relief) 50 Mcg/Act Spr 2 SPRAY MAGAN DAILY Folic Acid (Folic Acid) 1 Mg Tab 1 MG PO DAILY Nitroglycerin (Nitrostat) 0.4 Mg Tab 0.4 MG UT PRN, BTL Pantoprazole (Protonix) 40 Mg Tab 40 MG PO DAILY, #30 TAB Potassium Ext Rel (Klor-Con) 20 Meq Tabcr 20 MEQ PO BID, TAB Repaglinide (Prandin) 0.5 Mg Tab 2 MG PO AC, TAB Sitagliptin Phosphate (Januvia) 50 Mg Tab 50 MG PO DAILY, TAB Discontinued Medications: Furosemide (Lasix) 40 Mg Tab 40 MG PO BID, 0 Refills Lisinopril (Lisinopril) 5 Mg Tab 5 MG PO DAILY, TAB Admission Information HPI (per Admitting provider): 86 year old male with PMH of COPD, CARLITA on CPAP, DM II, CKD stage 3/4, HTN dyslipidemia, obesity was sent from PCP office to the Emergency Room with complaints of bilateral leg swelling. Pt said that for the last few days he has been having increasing swelling of B/L legs. He said that in the last 2 days the swelling got worst to the point that it seems like it involves his abdomen because he is unable to get his pants on without significant difficulty due to swelling. Notes some dyspnea on exertion. He said that he gained about 25lbs in the last few weeks. (Weight at podiatry on 08/24 was 247lbs and he is at 272lbs in clinic today.) Pt said that in his last appointment with nephrology, his lasix was decreased to 40mg BID. He said that, he increased his lasix without the physician permission to his previous dose of 120mg daily (40/80 mg) last Monday. He denies any chest pain, sob, nausea, vomiting, fevers, rashes. Physical Exam (per Admitting): General Appearance: WD/WN, no apparent distress Head: normocephalic Eyes: normal inspection, PERRL, EOMI ENT: normal ENT inspection, hearing grossly normal Neck: supple, no JVD Respiratory/Chest: lungs clear, no respiratory distress, no accessory muscle use Cardiovascular: regular rate, rhythm, no JVD, no murmur Abdomen/GI: normal bowel sounds, non tender, soft Back: normal inspection, no CVA tenderness Extremities/Musculoskelatal: no calf tenderness, + pedal edema Neurologic/Psych: alert, normal mood/affect, oriented x 3 Skin: warm/dry, no rash Lymphatic: no adenopathy Hospital Course This is an 86 year old male with PMH of COPD, CARLITA on CPAP, DM2, CKD stage 4, HTN , HLD presented to the hospital after being sent by PCP due to significant bilateral lower extremity edema Bilateral Lower Extremity Edema in the setting of CKD stage 4 patient presented with significant lower extremity edema He has been receiving Albumin + Lasix combination Appreciate nephrology input on this Lower Extremity venous dopplers = negative for DVT echo = normal LVEF, no LV outflow obstruction has had a significant negative fluid balance will need to continue to have negative balance as outpatient switched from IV to PO Lasix 80mg BID outpatient nephrology and PCP f/u outpatient BMP on September 14 Acute Kidney Injury superimposed on CKD stage 4 hold lisinopril for now continue Lasix creatinine improving; back to around his baseline of 2.3 outpatient BMP Pancytopenia secondary to Myelodysplastic Syndrome appreciate Hem/Onc input 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 Discharge Instructions Please follow-up with Dr. Garza on September 13 @ 11:20AM You will have your blood drawn (CBC and BMP) on September 13 Please follow-up with Dr. Chong, Nephrology on October 12 @ 11:20AM * You will be taking Lasix 80mg twice a day until you get your lab drawn; further adjustments as per PCP and nephrology * Your dose of Insulin is decreased to 24 units instead of 48 units - please check your BSGs twice a day and bring to PCP's office
[2016-10-30] MEDS ORDERED: TPRSR25 PO (15:00)
[2016-12-28] MEDS ORDERED: LCTS240 PO (13:03)
[2016-12-28] MEDS ORDERED: ZRX5 PO (13:03)
[2016-12-28] MEDS ORDERED: POTA10CA28 PO (13:03)
[2016-12-28] MEDS ORDERED: TPRSR25 PO ×2 (13:03→13:12)
[2016-12-28] MEDS ORDERED: INSDGIPEN SC (13:03)
[2016-12-28] MEDS ORDERED: NVLGIPEN SC (13:03)
[2016-12-28] MEDS ORDERED: LSX80 PO (13:03)
[2017-03-21] MEDS ORDERED: XFX550 PO (13:40)
[2017-03-21] MEDS ORDERED: LSX20 PO (13:40)
[2017-03-21] MEDS ORDERED: VNCS125 PO (13:40)
[2017-03-21] MEDS ORDERED: SPR25 PO (13:40)
[2017-03-21] MEDS ORDERED: MCRK20 PO (13:40)
[2017-03-21] MEDS ORDERED: FERR1TAB23 OR (14:07)
[2017-04-22] MEDS ORDERED: SPR25 PO (14:44)
== END 2016-09-09 16:45 | disposition home health service (06) | DRG 641 ==
LOC: ENRESERVDT → ENRESERVTM → C.EDB 17:14 → C.MS2W 20:41
PROVIDERS: ADMIT Internal Medicine; ATTEND Hospitalist
DX: E87.70 Fluid overload, unspecified (principal); N18.4 Chronic kidney disease, stage 4 (severe); N17.9 Acute kidney failure, unspecified; I42.9 Cardiomyopathy, unspecified; D61.818 Other pancytopenia; Z66 Do not resuscitate; E11.9 Type 2 diabetes mellitus without complications; R60.0 Localized edema; Z79.4 Long term (current) use of insulin; I50.9 Heart failure, unspecified; E87.0 Hyperosmolality and hypernatremia; J44.9 Chronic obstructive pulmonary disease, unspecified; G47.33 Obstructive sleep apnea (adult) (pediatric); I12.9 Hypertensive chronic kidney disease with stage 1 through stage 4 chronic kidney disease, or unspecified chronic kidney disease; E78.5 Hyperlipidemia, unspecified; D46.9 Myelodysplastic syndrome, unspecified; Z68.36 Body mass index [BMI] 36.0-36.9, adult; E66.9 Obesity, unspecified; Z85.51 Personal history of malignant neoplasm of bladder; Z95.0 Presence of cardiac pacemaker

== ENCOUNTER 2016-10-16 07:20 | Inpatient (IN) | payer OTHER ==
[~2016-10-16] VITALS: Ht 193 cm; Wt 126.4 kg
[2016-10-16] VITALS (9 sets, daily range): BP systolic 77–100; BP diastolic 49–67; PULSE 96–111; TEMP 36.8–37.8; O2SAT 95–100; BMI 32.6
[~2016-10-16 07:20] MED LIST changes: +FLUT0.15 NAE; -FRS/40 PO; -FRS/80 PO; -HEPA1INJ22 SQ; -LISI2.5T5 PO; +LSX40 PO; +PANT40TA PO; -POLY335025 PO; +REPA1TAB5 PO
[2016-10-16] MEDS ORDERED: ALBUT/IPRATROP 3MG/0.5MG NEB 3 ML VIAL INH STA (07:40)
--- NOTE | 2016-10-16 07:49 | EMERGENCY ROOM VISIT NOTE ---
History First contact with patient: :28 Chief Complaint: FALL Stated Complaint: COUGH History of Present Illness The patient is a 86 year old male who presents to the Emergency Room by ambulance with complaints of fall and dyspnea. The patient has a history of COPD, sleep apnea and wears CPAP, diabetes, chronic kidney disease, hypertension , dyslipidemia and obesity. Reportedly, the patient was walking to his recliner at his home last night and fell. He was not able to get up under his own power. He lay on the floor all night. He was able to reach his phone this morning and call his family member who summoned the ambulance. The patient wears oxygen at home and CPAP at night. He was not able to reach either of these while he was laying on the floor. Upon EMS arrival, his oxygen saturation was 82% on room air. The patient denies any pain. He denies any shortness of breath worse than his baseline. He has had a cough for several months. He denies any dental pain, nausea or vomiting. Review of Systems A 10 system review of systems was completed with positives and pertinent negatives listed in the HPI. Past Medical/Surgical History Medical Problems: (1) Bladder cancer (2) Diabetes (3) Fall (4) Rhabdomyolysis (5) Shortness of breath Family History FHx: heart disease Social History Smoking Status: Never Smoker Alcohol Use: none Drug Use: none Marital Status: Occupation Status: unemployed Current/Historical Medications Scheduled Amiodarone HCl (Amiodarone HCl), 200 MG PO DAILY Atorvastatin (Lipitor), 20 MG PO DAILY Famotidine (Pepcid), 20 MG PO QPM Fluticasone Propionate (Nasal) (Flonase Allergy Relief), 2 SPRAY MAGAN DAILY Folic Acid (Folic Acid), 1 MG PO DAILY Furosemide (Furosemide), 80 MG PO BID Insulin Glargine (Lantus), 24 UNITS SC HS Nitroglycerin (Nitrostat), 0.4 MG UT PRN Pantoprazole (Protonix), 40 MG PO DAILY Potassium Ext Rel (Klor-Con), 20 MEQ PO BID Repaglinide (Prandin), 2 MG PO AC Sitagliptin Phosphate (Januvia), 50 MG PO DAILY Scheduled PRN Acetaminophen Tab (Tylenol), 650 MG PO Q4 PRN for Fever Allergies Coded Allergies: Propranolol (Verified Allergy, Unknown, 10/16/16) Codeine (Verified Adverse Reaction, Mild, NOTED "DOESNT TOLERATE WELL" , 10/16/16) Physical Exam Vital Signs Date Time Temp Pulse Resp B/P Pulse Ox O2 Delivery O2 Flow Rate FiO2 10/16/16 10:35 100 BiPAP 50 10/16/16 09:39 107 100 50 10/16/16 08:43 102 18 217/100 100 Room Air 10/16/16 08:35 105 10/16/16 07:28 36.9 104 20 142/96 96 Nasal Cannula 3.0 Physical Exam VITALS: Vitals are noted on the nurse's note and reviewed by myself. Vital signs stable. The patient's oxygen saturation is 94% on room air. GENERAL: This is an 86-year-old male, in no acute distress, nondiaphoretic, well -developed well-nourished. SKIN: There are venous stasis changes to the bilateral lower extremities. There is mild erythema and warmth to the left lower extremity. There is no tenting of the skin. Capillary reflex less than 2 seconds. HEAD: Normocephalic atraumatic. EARS: External ears are normal in appearance. EYES: Pupils equal round and reactive to light and accommodation. Conjunctivae without injection, sclerae without icterus. Extraocular movements intact. NOSE: Patent, turbinates without inflammation or discharge.. MOUTH: Mucous membranes moist. Tonsils are not enlarged. Pharynx without erythema or exudate. Uvula midline. Airway patent. Tongue does not deviate. NECK: Supple without nuchal rigidity. No lymphadenopathy. No thyromegaly. Cervical spine is nontender. No JVD. HEART: Regular rate and rhythm without murmurs gallops or rubs. LUNGS: Scattered wheezes. There is accessory muscle use noted. ABDOMEN: Positive bowel sounds x 4.Soft, distended, nontender, without masses or organomegaly. MUSCULOSKELETAL: There is bilateral lower extremity edema but the family member states this is improved compared to previous. Full range of motion without joint tenderness in all extremities. No tenderness to palpation. Strength Strength 5/5 throughout. NEURO: Patient was alert and oriented to person place and time. No focal neurological deficits. Medical Decision & Procedures ER Provider Diagnostic Interpretation: [~ rep ct add3]] CT OF THE CERVICAL SPINE WITHOUT CONTRAST CLINICAL HISTORY: Fall. COMPARISON STUDY: No previous studies for comparison. TECHNIQUE: Helical axial images of the cervical spine were obtained without IV contrast. Sagittal and coronal reconstructions were viewed. FINDINGS: No acute cervical spine fracture is identified. Craniocervical junction is intact. There is severe multilevel facet arthrosis and moderate multilevel degenerative disc disease. There is no prevertebral edema. There is made of slight reversal of the normal cervical lordosis. There is extensive anterior osteophytosis. IMPRESSION: 1. No acute cervical spine fracture or subluxation. 2. 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 CHEST ONE VIEW PORTABLE CLINICAL HISTORY: Dyspnea. COMPARISON STUDY: Chest radiograph September 01, 2016. FINDINGS: There is no pneumothorax or pleural effusion. Moderate cardiomegaly is noted. There are median sternotomy wires and a dual lead left pacemaker. This study is compromised by motion artifact. There is pulmonary vasculature congestion. There is minimal left basilar opacity. IMPRESSION: 1. Moderate cardiomegaly. 2. Asymmetric right lung interstitial thickening which favors pulmonary vascular congestion with possible mild pulmonary edema. An infectious process could appear similar. CT OF THE HEAD WITHOUT CONTRAST CLINICAL HISTORY: Fall. COMPARISON STUDY: No previous studies for comparison. TECHNIQUE: Helical axial images of the head were obtained without IV contrast. Automated exposure control was utilized for the study. FINDINGS: This exam is mildly compromised by motion artifact. No acute intracranial hemorrhage, midline shift or mass effect is present. Ventricular system is unremarkable for age. Basilar cisterns are patent. There are no extra-axial collections. There is moderate atrophy and mild small vessel disease. There is no calvarial fracture. There is mild mucosal thickening of the sinuses. IMPRESSION: 1. No acute intracranial findings. 2. No calvarial fracture. Laboratory Results 10/16/16 08:18 Red Blood Count 3.26, Mean Corpuscular Volume 92.9, Mean Corpuscular Hemoglobin 29.4, Mean Corpuscular Hemoglobin Concent 31.7, Mean Platelet Volume 9.8, Neutrophils (%) (Auto) 94.3, Lymphocytes (%) (Auto) 2.8, Monocytes (%) (Auto) 2.5, Eosinophils (%) (Auto) 0.0, Basophils (%) (Auto) 0.0, Neutrophils # (Auto) 9.72, Lymphocytes # (Auto) 0.29, Monocytes # (Auto) 0.26, Eosinophils # (Auto) 0.00, Basophils # (Auto) 0.00 10/16/16 08:18 Test 10/16/16 08:18 White Blood Count 10.31 K/uL (4.8-10.8) Red Blood Count 3.26 M/uL (4.7-6.1) Hemoglobin 9.6 g/dL (14.0-18.0) Hematocrit 30.3 % (42-52) Mean Corpuscular Volume 92.9 fL (80-100) Mean Corpuscular Hemoglobin 29.4 pg (25-34) Mean Corpuscular Hemoglobin Concent 31.7 g/dl (32-36) Platelet Count 51 K/uL (130-400) Mean Platelet Volume 9.8 fL (7.4-10.4) Neutrophils (%) (Auto) 94.3 % Lymphocytes (%) (Auto) 2.8 % Monocytes (%) (Auto) 2.5 % Eosinophils (%) (Auto) 0.0 % Basophils (%) (Auto) 0.0 % Neutrophils # (Auto) 9.72 K/uL (1.4-6.5) Lymphocytes # (Auto) 0.29 K/uL (1.2-3.4) Monocytes # (Auto) 0.26 K/uL (0.11-0.59) Eosinophils # (Auto) 0.00 K/uL (0-0.5) Basophils # (Auto) 0.00 K/uL (0-0.2) RDW Standard Deviation 53.6 fL (36.4-46.3) RDW Coefficient of Variation 15.9 % (11.5-14.5) Immature Granulocyte % (Auto) 0.4 % Immature Granulocyte # (Auto) 0.04 K/uL (0.00-0.02) Ovalocytes 1+ Prothrombin Time 14.4 SECONDS (9.0-12.0) Prothromb Time International Ratio 1.3 (0.9-1.1) Activated Partial Thromboplast Time 30.9 SECONDS (21.0-31.0) Partial Thromboplastin Ratio 1.2 Anion Gap 13.0 mmol/L (3-11) Est Creatinine Clear Calc Drug Dose 24.3 ml/min Estimated GFR () 20.0 Estimated GFR (Non- 17.3 BUN/Creatinine Ratio 9.9 (10-20) Calcium Level 7.9 mg/dl (8.5-10.1) Magnesium Level 2.1 mg/dl (1.8-2.4) Total Bilirubin 1.4 mg/dl (0.2-1) Aspartate Amino Transf (AST/SGOT) 86 U/L (15-37) Alanine Aminotransferase (ALT/SGPT) 39 U/L (12-78) Alkaline Phosphatase 63 U/L (45-117) Pro-B-Type Natriuretic Peptide 7011 pg/ml (0-1800) Total Protein 5.9 gm/dl (6.4-8.2) Albumin 2.4 gm/dl (3.4-5.0) Globulin 3.5 gm/dl (2.5-4.0) Albumin/Globulin Ratio 0.7 (0.9-2) Thyroid Stimulating Hormone (TSH) 2.070 uIu/ml (0.300-4.500) Medications Administered Medications (Trade) Dose Ordered Sig/Gin Route Start Time Stop Time Status Last Admin Dose Admin Albuterol/ Ipratropium 3 ml 3 ml NOW STAT INH 10/16/16 07:40 10/16/16 07:44 DC 10/16/16 08:07 3 ML Sodium Chloride 1,000 ml @ 100 mls/hr Q10H STAT IV 10/16/16 09:17 10/16/16 12:31 DC 10/16/16 09:45 100 MLS/HR Sodium Chloride (Nss 1000ml) 1,000 ml @ 125 mls/hr Q8H IV 10/16/16 10:39 10/16/16 19:24 10/16/16 15:47 125 MLS/HR Procedure The patient was monitored on a manager cardiac. He has a wide complex rhythm. ECG Indication: SOB/dyspnea Rate (beats per minute): 105 Rhythm: sinus tachycardia Findings: LBBB Change: no significant change ED Course The patient was seen and examined. Previous visits were reviewed. The patient does not have a fever or leukocytosis. He has a mild anemia. His BUN/ creatinine creatinine are acutely elevated at 31 and 3.1. The patient does have a history of chronic kidney disease but this is slightly worse. His AST is 86. His CPK is elevated at 2290. His troponin is elevated at 0.42. His BNP is elevated at 7011. TSH is within normal limits. Urinalysis suggests contamination. Chest x-ray reveals pulmonary vascular congestion The skin to the brain and neck did not reveal any acute amount. The patient was given a very gentle hydration with a rate of 100 mL per hour. The patient does appear to have rhabdomyolysis; however, he also seems to have some degree of pulmonary edema and congestive heart failure. The patient was given a DuoNeb with mild improvement in his breathing He was placed on BiPAP The patient presents to the emergency department for evaluation of fall and dyspnea. The patient is a poor historian. He stated initially that he was walking to his recliner and fell. He stated he couldn't get up so he laid on the floor. He did not have his oxygen or CPAP overnight. The patient was brought to the emergency department in the morning. The patient appears to have rhabdomyolysis. He has acute on chronic kidney failure. He is likely dehydrated. The patient's troponin is elevated which may be secondary to the renal failure and the rhabdomyolysis. The patient required BiPAP as his dyspnea worsened and he began to have a productive cough with whitish sputum. The patient will require further evaluation and management in the hospital. The patient was also seen and examined by who agrees with the assessment and treatment plan. Medical Decision I have personally spent greater than 45 minutes of critical care time in the direct management of this patient. This includes bedside care, interpretation of diagnostic studies, and testing, discussion with consultants, patient, and family members, and other required patient management activities. This 30 minutes is in excess of all separately billable procedures. Impression Primary Impression: Pulmonary edema Additional Impressions: CHF (congestive heart failure) MAGEN (acute kidney injury) Dehydration Elevated troponin Rhabdomyolysis Departure Information Dispostion Admitted as an inpatient Condition FAIR Referrals Anastacio Garza M.D. (PCP) Patient Instructions [facility] Problem Qualifiers
--- NOTE | 2016-10-16 08:08 | DIAGNOSTIC IMAGING REPORT ---
CHEST ONE VIEW PORTABLE CLINICAL HISTORY: Dyspnea. COMPARISON STUDY: Chest radiograph September 01, 2016. FINDINGS: There is no pneumothorax or pleural effusion. Moderate cardiomegaly is noted. There are median sternotomy wires and a dual lead left pacemaker. This study is compromised by motion artifact. There is pulmonary vasculature congestion. There is minimal left basilar opacity. IMPRESSION: 1. Moderate cardiomegaly. 2. Asymmetric right lung interstitial thickening which favors pulmonary vascular congestion with possible mild pulmonary edema. An infectious process could appear similar. Electronically signed by: Williams Goetz M.D. 10/16/2016 8:07 AM Dictated Date/Time: 10/16/2016 8:05 AM
[2016-10-16 08:30] LABS: HEMATOCRIT 30.3 % (42-52); MEAN CELL VOLUME 92.9 fL (80-100); MEAN CORPUSCULAR HEMOGLOBIN 29.4 pg (25-34); MEAN CORPUSCULAR HGB CONC 31.7 g/dl (32-36); RED BLOOD COUNT 3.26 M/uL (4.7-6.1); WHITE BLOOD COUNT 10.31 K/uL (4.8-10.8)
[2016-10-16 08:38] LABS: INR 1.3 (0.9-1.1); PARTIAL THROMBOPLASTIN RATIO 1.2; PROTHROMBIN TIME (PATIENT) 14.4 SECONDS (9.0-12.0)
--- NOTE | 2016-10-16 08:43 | DIAGNOSTIC IMAGING REPORT ---
CT OF THE HEAD WITHOUT CONTRAST CLINICAL HISTORY: Fall. COMPARISON STUDY: No previous studies for comparison. TECHNIQUE: Helical axial images of the head were obtained without IV contrast. Automated exposure control was utilized for the study. FINDINGS: This exam is mildly compromised by motion artifact. No acute intracranial hemorrhage, midline shift or mass effect is present. Ventricular system is unremarkable for age. Basilar cisterns are patent. There are no extra-axial collections. There is moderate atrophy and mild small vessel disease. There is no calvarial fracture. There is mild mucosal thickening of the sinuses. IMPRESSION: 1. No acute intracranial findings. 2. No calvarial fracture. Electronically signed by: Williams Goetz M.D. 10/16/2016 8:42 AM Dictated Date/Time: 10/16/2016 8:40 AM
[2016-10-16 08:46] LABS: CALCIUM 7.9 mg/dl (8.5-10.1); CREATININE 3.1 mg/dl (0.60-1.40); MAGNESIUM 2.1 mg/dl (1.8-2.4); POTASSIUM 4.3 mmol/L (3.5-5.1)
--- NOTE | 2016-10-16 08:46 | DIAGNOSTIC IMAGING REPORT ---
CT OF THE CERVICAL SPINE WITHOUT CONTRAST CLINICAL HISTORY: Fall. COMPARISON STUDY: No previous studies for comparison. TECHNIQUE: Helical axial images of the cervical spine were obtained without IV contrast. Sagittal and coronal reconstructions were viewed. FINDINGS: No acute cervical spine fracture is identified. Craniocervical junction is intact. There is severe multilevel facet arthrosis and moderate multilevel degenerative disc disease. There is no prevertebral edema. There is made of slight reversal of the normal cervical lordosis. There is extensive anterior osteophytosis. IMPRESSION: 1. No acute cervical spine fracture or subluxation. 2. 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 Electronically signed by: Williams Goetz M.D. 10/16/2016 8:45 AM Dictated Date/Time: 10/16/2016 8:42 AM
[2016-10-16 08:48] LABS: BUN/CREATININE RATIO 9.9 (10-20); MEAN PLATELET VOLUME 9.8 fL (7.4-10.4); PLATELET COUNT 51 K/uL (130-400)
[2016-10-16 09:10] LABS: ALB/GLOB RATIO 0.7 (0.9-2); CKMB/CK RATIO 0.6 (0-3.0); THYROID STIMULATING HORMONE 2.07 uIu/ml (0.300-4.500)
[2016-10-16 09:13] LABS: COMPLETE YES; IG% 0.4 %; LYMPH % 2.8 %; LYMPH ABS # 0.29 K/uL (1.2-3.4); MONO % 2.5 %; NEUT % 94.3 %; OVALOCYTES 1+
[2016-10-16] MEDS ORDERED: SODIUM CHLORIDE 0.9% 1000ML 1,000 ML IV STA (09:17)
[2016-10-16] MEDS: SODIUM CHLORIDE 0.9% 1000ML 1,000 ML IV SCH ×3 (10:39→15:47)
[2016-10-16] MEDS ORDERED: DEXTROSE 50% 50 ML SYR IV PRN (10:45)
[2016-10-16] MEDS ORDERED: ALUMINUM/MAGNESIUM/SIMETH (MAALOX MAX) 30 ML UDC PO PRN (10:45)
[2016-10-16] MEDS ORDERED: POLYETHYLENE (MIRALAX) 17 GM PACK PO PRN (10:45)
[2016-10-16] MEDS ORDERED: GLUCOSE 40% GEL 15 GM TUBE PO PRN (10:45)
[2016-10-16] MEDS ORDERED: MAGNESIUM HYDROXIDE SUSP 30 ML UDC PO PRN (10:45)
[2016-10-16] MEDS ORDERED: ONDANSETRON INJ 2 MG/ML 2 ML VIAL IV PRN (10:45)
[2016-10-16] MEDS ORDERED: GLUCOSE 10 TABS/TUBE PO PRN (10:45)
[2016-10-16] MEDS ORDERED: GLUCAGON FOR INJ 1 MG VIAL SQ PRN (10:45)
[2016-10-16] MEDS ORDERED: ACETAMINOPHEN 325 MG TAB PO PRN (11:15)
[2016-10-16] MEDS ORDERED: HydrALAZINE HCL 20 MG/ML VIAL IV. STA (11:15)
[2016-10-16] MEDS: INSULIN ASPART 100 UNITS/ML 3 ML PEN SC SCH ×3 (11:30→20:09)
[2016-10-16] MEDS ORDERED: LEVOFLOXACIN / D5W 750 MG IV SCH (11:45)
--- NOTE | 2016-10-16 11:51 | History and Physical ---
History & Physical Date & Time of Service: October 16, 2016 at 10:58 Chief Complaint: COUGH Primary Care Physician: Anastacio Garza M.D. History of Present Illness Source: patient, family, clinic records, hospital records This is a 86 year old male with a PMH of CKD stage IV, sinus node dysfunction s/ p PPM, COPD, DM2, HTN, HLD - recent hospital admission in August 2016 with volume overload. At that time, he was given albumin + Lasix and fluid from legs improved; he was discharged with a creatinine of 2.3. He was discharged home and states he was doing well. He was seen by Dr. Chong of nephrology on 10/12 and was doing well - his only complaint was a cough with some sputum production , but otherwise doing well. Yesterday he went grocery shopping with no issues. At night, he states he vomited and became very weak. He had more of the coughing issue - then when he went to get up, he was too weak to stand and he fell down. He states he could not get to a phone so he stayed on the floor and fell asleep - he finally got to a phone this morning and he was brought in to the ER. He was noted to have worsening kidney function, elevated CPK; his troponin was noted to be elevated. His current complaints include weakness, bilateral lower extremity pain, productive cough and shortness of breath. He has his bipap on, and he feels better in terms of shortness of breath. Denies chest pain. Past Medical/Surgical History Medical Problems: (1) Bladder cancer Status: Chronic (2) Diabetes Status: Chronic Family History FHx: heart disease Social History Smoking Status: Never Smoker Drug Use: none Marital Status: Occupational Status: unemployed Immunizations History of Influenza Vaccine: Yes History of Tetanus Vaccine?: Yes History of Pneumococcal: Yes History of Hepatitis B Vaccine: Unknown Multi-Drug Resistant Organisms History of MDRO: No Allergies Coded Allergies: Propranolol (Verified Allergy, Unknown, 10/16/16) Codeine (Verified Adverse Reaction, Mild, NOTED "DOESNT TOLERATE WELL" , 10/16/16) Home Medications Scheduled Amiodarone HCl (Amiodarone HCl), 200 MG PO DAILY Atorvastatin (Lipitor), 20 MG PO DAILY Famotidine (Pepcid), 20 MG PO QPM Fluticasone Propionate (Nasal) (Flonase Allergy Relief), 2 SPRAY MAGAN DAILY Folic Acid (Folic Acid), 1 MG PO DAILY Furosemide (Furosemide), 80 MG PO BID Insulin Glargine (Lantus), 24 UNITS SC HS Nitroglycerin (Nitrostat), 0.4 MG UT PRN Pantoprazole (Protonix), 40 MG PO DAILY Potassium Ext Rel (Klor-Con), 20 MEQ PO BID Repaglinide (Prandin), 2 MG PO AC Sitagliptin Phosphate (Januvia), 50 MG PO DAILY Scheduled PRN Acetaminophen Tab (Tylenol), 650 MG PO Q4 PRN for Fever Review of Systems Constitutional: + chills, + fatigue, + fever, + sweats, + weakness Respiratory: + cough, + dyspnea on exertion, + shortness of breath, + sputum, No dyspnea at rest, No hemoptysis, No wheezing Cardiovascular: + edema, No chest pain, No orthopnea, No palpitations Abdomen: No constipation, No diarrhea, No nausea, No pain, No vomiting Musculoskeletal: + calf pain (b/l LE edema), + joint pain, + muscle pain, + swelling Genitourinary - Male: No dysuria, No urinary frequency Neurologic: + balance problems, + weakness, No numbness/tingling, No vertigo Hematologic / Lymphatic: No abnormal bleeding/bruising Integumentary: + color change (redness of the LLE) Allergic / Immunologic: No environmental allergies, No seasonal allergies Physical Exam Vital Signs Date Time Temp Pulse Resp B/P Pulse Ox O2 Delivery O2 Flow Rate FiO2 10/16/16 09:39 107 100 50 10/16/16 08:43 102 18 217/100 100 Room Air 10/16/16 08:35 105 10/16/16 07:28 36.9 104 20 142/96 96 Nasal Cannula 3.0 General Appearance: + mild distress (mild to moderate distress; bipap on; no respiratory distress; weakness, uncomfortable) Head: normocephalic, atraumatic Respiratory/Chest: no respiratory distress, no accessory muscle use, + decreased breath sounds Cardiovascular: no murmur, + tachycardia Abdomen/GI: normal bowel sounds, non tender, + distended Back: no CVA tenderness, no muscle spasm Extremities/Musculoskelatal: + pedal edema, + swelling, + pertinent finding (+1 -2 pitting edema b/l LE, venous stasis dermatitis; erythematous, warm to touch of the LLE) Neurologic/Psych: alert Diagnostics Laboratory Results Results Past 24 Hours Test 10/16/16 08:18 Range/Units White Blood Count 10.31 4.8-10.8 K/uL Red Blood Count 3.26 4.7-6.1 M/uL Hemoglobin 9.6 14.0-18.0 g/dL Hematocrit 30.3 42-52 % Mean Corpuscular Volume 92.9 80-100 fL Mean Corpuscular Hemoglobin 29.4 25-34 pg Mean Corpuscular Hemoglobin Concent 31.7 32-36 g/dl Platelet Count 51 130-400 K/uL Mean Platelet Volume 9.8 7.4-10.4 fL Neutrophils (%) (Auto) 94.3 % Lymphocytes (%) (Auto) 2.8 % Monocytes (%) (Auto) 2.5 % Eosinophils (%) (Auto) 0.0 % Basophils (%) (Auto) 0.0 % Neutrophils # (Auto) 9.72 1.4-6.5 K/uL Lymphocytes # (Auto) 0.29 1.2-3.4 K/uL Monocytes # (Auto) 0.26 0.11-0.59 K/uL Eosinophils # (Auto) 0.00 0-0.5 K/uL Basophils # (Auto) 0.00 0-0.2 K/uL RDW Standard Deviation 53.6 36.4-46.3 fL RDW Coefficient of Variation 15.9 11.5-14.5 % Immature Granulocyte % (Auto) 0.4 % Immature Granulocyte # (Auto) 0.04 0.00-0.02 K/uL Ovalocytes 1+ Prothrombin Time 14.4 9.0-12.0 SECONDS Prothromb Time International Ratio 1.3 0.9-1.1 Activated Partial Thromboplast Time 30.9 21.0-31.0 SECONDS Partial Thromboplastin Ratio 1.2 Sodium Level 144 136-145 mmol/L Potassium Level 4.3 3.5-5.1 mmol/L Chloride Level 112 98-107 mmol/L Carbon Dioxide Level 19 21-32 mmol/L Anion Gap 13.0 3-11 mmol/L Blood Urea Nitrogen 31 7-18 mg/dl Creatinine 3.10 0.60-1.40 mg/dl Est Creatinine Clear Calc Drug Dose 24.3 ml/min Estimated GFR () 20.0 Estimated GFR (Non- 17.3 BUN/Creatinine Ratio 9.9 10-20 Random Glucose 193 70-99 mg/dl Calcium Level 7.9 8.5-10.1 mg/dl Magnesium Level 2.1 1.8-2.4 mg/dl Total Bilirubin 1.4 0.2-1 mg/dl Aspartate Amino Transf (AST/SGOT) 86 15-37 U/L Alanine Aminotransferase (ALT/SGPT) 39 12-78 U/L Alkaline Phosphatase 63 45-117 U/L Total Creatine Kinase 2290 39-308 U/L Creatine Kinase MB 13.1 0.5-3.6 ng/ml Creatine Kinase MB Ratio 0.6 0-3.0 Troponin I 0.420 0-0.045 ng/ml Pro-B-Type Natriuretic Peptide 7011 0-1800 pg/ml Total Protein 5.9 6.4-8.2 gm/dl Albumin 2.4 3.4-5.0 gm/dl Globulin 3.5 2.5-4.0 gm/dl Albumin/Globulin Ratio 0.7 0.9-2 Thyroid Stimulating Hormone (TSH) 2.070 0.300-4.500 uIu/ml Microbiology Results 10/16/16 Blood Culture, Jorje Batch Pending 10/16/16 Blood Culture, Jorje Batch Pending Diagnostic Radiology CT OF THE HEAD WITHOUT CONTRAST CLINICAL HISTORY: Fall. COMPARISON STUDY: No previous studies for comparison. TECHNIQUE: Helical axial images of the head were obtained without IV contrast. Automated exposure control was utilized for the study. FINDINGS: This exam is mildly compromised by motion artifact. No acute intracranial hemorrhage, midline shift or mass effect is present. Ventricular system is unremarkable for age. Basilar cisterns are patent. There are no extra-axial collections. There is moderate atrophy and mild small vessel disease. There is no calvarial fracture. There is mild mucosal thickening of the sinuses. IMPRESSION: 1. No acute intracranial findings. 2. No calvarial fracture. CHEST ONE VIEW PORTABLE CLINICAL HISTORY: Dyspnea. COMPARISON STUDY: Chest radiograph September 01, 2016. FINDINGS: There is no pneumothorax or pleural effusion. Moderate cardiomegaly is noted. There are median sternotomy wires and a dual lead left pacemaker. This study is compromised by motion artifact. There is pulmonary vasculature congestion. There is minimal left basilar opacity. IMPRESSION: 1. Moderate cardiomegaly. 2. Asymmetric right lung interstitial thickening which favors pulmonary vascular congestion with possible mild pulmonary edema. An infectious process could appear similar. CT OF THE CERVICAL SPINE WITHOUT CONTRAST CLINICAL HISTORY: Fall. COMPARISON STUDY: No previous studies for comparison. TECHNIQUE: Helical axial images of the cervical spine were obtained without IV contrast. Sagittal and coronal reconstructions were viewed. FINDINGS: No acute cervical spine fracture is identified. Craniocervical junction is intact. There is severe multilevel facet arthrosis and moderate multilevel degenerative disc disease. There is no prevertebral edema. There is made of slight reversal of the normal cervical lordosis. There is extensive anterior osteophytosis. IMPRESSION: 1. No acute cervical spine fracture or subluxation. 2. 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 EKG Wide QRS, LBBB Impression Assessment and Plan This is a 86 year old male with a PMH of CKD stage IV, sinus node dysfunction s/ p PPM, COPD, DM2, HTN, HLD - recent hospital admission in August 2016 with volume overload, here with acute kidney injury, rhabdomyolysis and possible pneumonia Acute Kidney Injury superimposed on CKD stage IV was discharged here on 09/09 with a creatinine of 2.3 presents today with creatinine of 3.1 likely worsened by rhabdomyolysis as well as dehydration + infection was seen by nephrology on 10/12 and was doing fairly well weight today slightly higher than in the outpatient setting will hold Lasix, will try to avoid nephrotoxic agents IVFs - cautiously to avoid diastolic CHF, edema, etc. nephrology consulted for further input Rhabdomyolysis CPK level elevated > 2000 will need to give IVFs due to MAGEN repeat q6 hours Syncope and Collapse Head CT and cervical spine CT negative unsure of the cause; dehydration, functional decline, infectious process? cultures pending will need PT/OT Elevated Troponin troponin level elevated possibly secondary to dehydration, MAGEN, rhabdo Wide QRS noted on EKG will trend enzymes cardiology consulted for further input Possibly Pneumonia WBC ~ 10k last month, patient was leukopenic at around 2k +productive cough CXR seems to suggest possible infectious process will start Unasyn + Levaquin blood cultures, sputum culture pending Non-Purulent Cellulitis of LLE Left LE; erythematous, warm to touch will check Doppler to r/o DVT will start Unasyn Heart Failure with Preserved EF echo during last admission showed a preserved EF likely diastolic CHF, he has shortness of breath cardiorenal syndrome for now, hold Lasix, give some fluids gently and cautiously, but will need to restart Lasix cardiology and nephrology for further input currently on Bipap, can wean as tolerated Hypertensive Urgency blood pressure >200/100 on admission will give a dose of Hydralazine avoid NICHOLE-I/ARB/diuretics for now, no CCB due to edema COPD shortness of breath, no wheezing heard Bipap for now nebulizers PRN DM2 Lantus 10 units BID sliding scale check Ha1c Sinus Node Dysfunction s/p PPM DVT ppx DINA + SCDs hx. of MDS and thrombocytopenia DNR VTE Prophylaxis VTE Risk Assessment Done? Y/N: Yes Risk Level: High
[2016-10-16] MEDS ORDERED: REPAGLINIDE 1 MG TAB PO SCH (12:00)
[2016-10-16] MEDS ORDERED: AMPICILLIN/SULBACTAM CONSULT ACTIVE PRN ×2 (12:45)
[2016-10-16] MEDS ORDERED: LEVOFLOXACIN CONSULT ACTIVE PRN (12:45)
[2016-10-16] MEDS: AMPICILLIN/SULBACTAM SOD INJ 3,000 MG in SODIUM CHLORIDE 0.9% 100ML 100 ML IV SCH ×2 (13:22→23:41)
[2016-10-16] MEDS ORDERED: LEVOFLOXACIN / D5W 750 MG in PREMIXED IN D5W 150 ML IV SCH (14:00)
[2016-10-16] MEDS: LEVALBUTEROL 1.25MG/0.5ML NEB INH SCH ×2 (14:01→18:45)
--- NOTE | 2016-10-16 14:51 | EMERGENCY ROOM VISIT NOTE ---
ED Visit Note First contact with patient: 07:28 I have personally evaluated and examined this patient. I agree with assessment and plan of Arianna Lea PA-C. Patient in rhabdo from laying on floor overnight though unfortunately by exam and CXR entering pulm edema. Placed on Bipap with improvement in breathing though will need to gentle rehydrate to clear rhabdo as well.
[2016-10-16 16:10] LABS: URINE APPEARANCE CLOUDY (CLEAR); URINE BILIRUBIN NEG (NEG); URINE COLOR DK YELLOW; URINE EPITHELIAL CELL AUTO >30 /lpf (0-5); URINE NITRITE NEG (NEG); URINE SPECIFIC GRAVITY 1.022 (1.000-1.030); UROBILINOGEN NEG (NEG); ZZUR CULT IF INDIC CLEAN CATCH NO
[2016-10-16 16:11] LABS: MANUAL MICROSCOPIC REQUIRED? NO; REVIEW REQ? YES
[2016-10-16 16:26] LABS: URINE PATH CASTS 1-5 GRANULAR CASTS /lpf (0)
[2016-10-16 18:29] LABS: CKMB/CK RATIO 0.4 (0-3.0)
[2016-10-16] MEDS: AMIODARONE 200 MG TAB PO SCH (20:08)
[2016-10-16] MEDS: FAMOTIDINE 20 MG TAB PO SCH (20:09)
[2016-10-16] MEDS: INSULIN GLARGINE SOLOSTAR 100 UNITS/ML 3 ML PEN SC SCH (20:12)
--- NOTE | 2016-10-16 21:00 | CARDIOLOGY CONSULTATION ---
DATE OF CONSULTATION: 10/16/2016 REFERRING PHYSICIAN: Dr. Saleh. PRIMARY CARE PHYSICIAN: Dr. Garza. PRIMARY BILINGUAL LOAN PROCESSOR: Dr. Louis. HISTORY OF PRESENT ILLNESS: The patient is a very complex 86-year-old male whose past medical history is notable for: 1. Hypertrophic obstructive cardiomyopathy status post myectomy. 2. History of past paroxysmal atrial fibrillation, maintained on long-term therapy with amiodarone. 3. History of prior symptomatic bradycardia status post dual-chamber pacemaker insertion, 2013. 4. Obstructive sleep apnea, on CPAP supplementation. 5. Chronic left bundle branch block. 6. 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 7. Diabetes mellitus. 8. Dyslipidemia. The patient presents now after acute hospitalization. Notes yesterday have been out performing errands grocery shopping without difficulty. That evening became sensation of weak with nausea and coughing with cough progressive. He became too weak to stand and fell down, and was unable to arise from the floor. Spent the night on the floor on his home before being able to reach the phone this morning and summoned the Emergency response. On presentation to the Emergency Room, he was hypertensive with elevated white cell count, elevated CPK and troponin, elevated BNP, worsening renal insufficiency. Heart rate is tachycardic and the rate is 100-110 range with baseline left bundle branch block. He is referred now for inpatient management assistance. He currently denies any chest pain or discomfort. Notes have been feeling relatively well up until events as described with only notable history of worsening cough, now with erythema and tenderness in his left leg as well. Notes no sense of tachypalpitations. Notes no chest pains. Notes no bleeding difficulties. Notes no melena, hematochezia, dysuria or hematuria. He has been taking medications as prescribed. Weight per patient has been stable and is consistent here since last hospitalization and discharge on 09/09/2016. Denies headache or visual changes. Currently, he was transiently treated with BiPAP as well as IV hydralazine in the Emergency Room for elevated blood pressures. At the time of examination, the patient is relatively hypotensive, blood pressure is in the 90s. O2 saturations are stable off BiPAP supplementation. REVIEW OF SYSTEMS: Otherwise negative. ALLERGIES: LISTED CODEINE AND PROPRANOLOL. MEDICATIONS PRIOR TO HOSPITALIZATION: Amiodarone 200 mg p.o. q. day, atorvastatin 20 mg q. day, famotidine 20 mg q. p.m., folic acid 1 mg per day, furosemide 80 mg twice per day, Lantus insulin, nitroglycerin p.r.n. and Protonix 40 mg p.o. q. day, potassium chloride 20 mEq b.i.d., Prandin 0.5 mg a.c., Januvia 50 mg p.o.q. day. PAST SURGICAL HISTORY: Notable for myectomy for obstructive cardiomyopathy in the remote past, history of dual chamber pacemaker insertion 2013, remote prostatectomy, cholecystectomy, dental extractions and cystoscopy. FAMILY HISTORY: Noncontributory. SOCIAL HISTORY: The patient is a nonsmoker, nondrinker. PAST MEDICAL HISTORY: As per HPI. 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 PHYSICAL EXAMINATION: GENERAL: The patient is a chronically ill-appearing male, currently denying acute distress. He is mildly confused on discussion, though does recollect episodes of yesterday, when he noted he slumped to the floor and was unable to regain footing until this morning. Spent the night on the floor. Notes no chest pain or discomfort. VITAL SIGNS: Heart rate is 100-110. Blood pressure is 94/64, O2 saturations are 92%. HEENT: Normocephalic, atraumatic. NECK: Thick. LUNGS: Reveal mildly diminished breath sounds, but there is no rhonchi, rale or wheeze. CARDIOVASCULAR: Regular, but tachycardic. Pacer sites without irritation. There is no audible murmur or rub with distant heart sounds. ABDOMEN: Obese, soft, nontender. EXTREMITIES: Reveal 1-2+ bilateral lower extremity edema with erythema of the left leg and tenderness to palpation with surrounding erythema. LABORATORY STUDIES: Sodium is 144, potassium is 4.3, chloride is 112, bicarb is 19, BUN is 31, creatinine is 3.1. White cell count is 10.3, hemoglobin 9.6, platelet count is 51,000. EKG reveals left bundle branch block with wide complex tachycardia. Telemetry would suggest AFib/flutter underlying rhythm, sinus tachycardia not completely excluded given aberrant conduction and BNP was elevated on presentation in the setting of elevated renal insufficiency. Creatinine as described 3.1, albumin is 2.4. TSH is normal. Chest x-ray reveals increased interstitial markings. Echocardiogram demonstrates on last admission 09/02/2016, mild left ventricular hypertrophy with preserved LV systolic function, mild calcification of aortic and mitral valves, mild mitral insufficiency, and no wall motion abnormalities. IMPRESSION: A complex 86-year-old male with acute decline last evening of multifactorial etiology. The patient presents now with elevated cardiac enzymes, most likely in association with fall and spending the evening on the floor. Echocardiogram has been ordered, to be reviewed. Would continue IV fluids as well as treatment of possible underlying infectious process. Venous duplex will be ordered of the lower extremities, given erythema of left leg and tenderness. Rhythm is suggestive of probable underlying AFib, flutter, though sinus tachycardia uncertain. Pacemaker is in place. We will order interrogation. In the interim, we will increase amiodarone to 200 mg twice per day. I have not initiated anticoagulation given thrombocytopenia. We will continue to use BIPAP at least as needed as well as at night as per the patient's previous use. We will need to follow renal function closely given deteriorating renal function and events as noted above. Would avoid use of IV hydralazine further as this did result in substantial drop in blood pressures. We will follow the patient in the hospital. RAYNA
[2016-10-16 22:54] LABS: URINE APPEARANCE CLOUDY (CLEAR); URINE COLOR DK YELLOW; URINE EPITHELIAL CELL AUTO >30 /lpf (0-5); URINE NITRITE NEG (NEG); URINE SPECIFIC GRAVITY 1.023 (1.000-1.030); UROBILINOGEN NEG (NEG); ZZURINE CULT IF INDIC CATH YES
[2016-10-16 22:58] LABS: MANUAL MICROSCOPIC REQUIRED? NO; REVIEW REQ? YES; URINE BILIRUBIN NEG (NEG)
[2016-10-16 23:08] LABS: URINE PATH CASTS 0-3 GRANULAR CASTS /lpf (0)
[2016-10-17] VITALS (16 sets, daily range): BP systolic 87–106; BP diastolic 53–69; PULSE 80–110; TEMP 36.5–37.2; O2SAT 93–100; Ht 193 cm; Wt 126.4 kg
[2016-10-17 00:45] LABS: CKMB/CK RATIO 0.5 (0-3.0)
[2016-10-17] MEDS: LEVALBUTEROL 1.25MG/0.5ML NEB INH SCH ×4 (02:39→19:16)
[2016-10-17] MEDS: INSULIN ASPART 100 UNITS/ML 3 ML PEN SC SCH ×5 (04:19→20:36)
[2016-10-17 05:32] LABS: HEMATOCRIT 27.6 % (42-52); MEAN CELL VOLUME 91.7 fL (80-100); MEAN CORPUSCULAR HEMOGLOBIN 28.2 pg (25-34); MEAN CORPUSCULAR HGB CONC 30.8 g/dl (32-36); MEAN PLATELET VOLUME 10.6 fL (7.4-10.4); PLATELET COUNT 34 K/uL (130-400); RED BLOOD COUNT 3.01 M/uL (4.7-6.1); WHITE BLOOD COUNT 4.78 K/uL (4.8-10.8)
[2016-10-17 05:43] LABS: BUN/CREATININE RATIO 13.2 (10-20); CALCIUM 7.5 mg/dl (8.5-10.1); CREATININE 3.8 mg/dl (0.60-1.40); MAGNESIUM 2.2 mg/dl (1.8-2.4); POTASSIUM 4.8 mmol/L (3.5-5.1)
[2016-10-17 06:13] LABS: CKMB/CK RATIO 0.5 (0-3.0); PHOSPHORUS 4.2 mg/dl (2.5-4.9)
--- NOTE | 2016-10-17 07:10 | DIAGNOSTIC IMAGING REPORT ---
BILATERAL LOWER EXTREMITY VENOUS DOPPLER HISTORY: r/o dvt Left leg edema erythema COMPARISON STUDY: None. FINDINGS: There is normal compressibility, flow, and augmentation within the bilateral lower extremity deep venous systems. IMPRESSION: No DVT within the right or left lower extremity. Electronically signed by: Richard Prescott M.D. 10/17/2016 7:08 AM Dictated Date/Time: 10/17/2016 7:08 AM
[2016-10-17 07:53] LABS: ESTIMATED AVERAGE GLUCOSE 131 mg/dl; HA1C FLAG Normal (Normal)
[2016-10-17] MEDS: INSULIN GLARGINE SOLOSTAR 100 UNITS/ML 3 ML PEN SC SCH ×2 (08:23→20:37)
[2016-10-17] MEDS: SODIUM CHLORIDE 0.9% 1000ML 1,000 ML IV SCH ×3 (08:25→20:31)
[2016-10-17] MEDS: ATORVASTATIN 20 MG TAB PO SCH (08:26)
[2016-10-17] MEDS: AMIODARONE 200 MG TAB PO SCH ×2 (08:26→20:33)
[2016-10-17] MEDS: PANTOprazole SOD 40 MG TAB PO SCH (08:27)
[2016-10-17] MEDS ORDERED: VANCOMYCIN CONSULT ACTIVE PRN (08:30)
[2016-10-17] MEDS ORDERED: PIPERACILL/TAZOBAC CONSULT ACTIVE PRN (08:30)
--- NOTE | 2016-10-17 08:41 | Progress Note ---
Subjective Date of Service: October 17, 2016. Subjective Pt evaluation today including: conversation w/ patient, physical exam, lab review, review of studies, review of inpatient medication list Saw/examined the patient in room 233 He's doing better today - currently off of Bipap, now on Room air and not c/o shortness of breath or chest pain +productive cough for days prior to arrival and ongoing He has some lower extremity pain no fevers +weakness Problem List Medical Problems: (1) MAGEN (acute kidney injury) Status: Acute (2) Anasarca Status: Acute (3) Bilateral leg edema Status: Acute (4) CHF (congestive heart failure) Status: Acute (5) Dehydration Status: Acute (6) Dyspnea on exertion Status: Acute (7) Elevated troponin Status: Acute (8) Pulmonary edema Status: Acute (9) Right heart failure Status: Acute Review of Systems Constitutional: + fatigue, + weakness, No chills, No fever Respiratory: + cough, + sputum, No shortness of breath Cardiac: No chest pain, No edema, No palpitations Abdomen: No diarrhea, No nausea, No pain, No vomiting Musculoskeletal: + muscle pain (LLE), + swelling Male : No dysuria, No urinary frequency Medications Current Inpatient Medications Medications (Trade) Dose Ordered Sig/Gin Route Start Time Stop Time Status Last Admin Dose Admin Acetaminophen (Tylenol Tab) 650 mg Q4H PRN PO 10/16/16 10:45 11/15/16 10:44 Al Hydrox/Mg Hydrox/Simethicone (Maalox Max Susp) 15 ml Q4H PRN PO 10/16/16 10:45 11/15/16 10:44 Magnesium Hydroxide (Milk Of Magnesia Susp) 30 ml Q12H PRN PO 10/16/16 10:45 11/15/16 10:44 Ondansetron HCl (Zofran Inj) 4 mg Q6H PRN IV 10/16/16 10:45 11/15/16 10:44 Polyethylene (Miralax Powder Packet) 17 gm DAILY PRN PO 10/16/16 10:45 11/15/16 10:44 Insulin Glargine (Lantus Solostar Pen) 10 unit Q12 SC 10/16/16 21:00 11/15/16 20:59 10/17/16 08:23 10 UNIT Insulin Aspart (novoLOG ASPART) SLIDING SCALE If C... ACHS SC 10/16/16 11:00 11/15/16 10:59 10/17/16 08:22 5 UNITS Glucose (Glucose 40% Gel) 15-30 GRAMS 15 GRAMS... UD PRN PO 10/16/16 10:45 11/15/16 10:44 Glucose (Glucose Chew Tab) 4-8 Tablets 4 Tabl... UD PRN PO 10/16/16 10:45 11/15/16 10:44 Dextrose (Dextrose 50% 50ML Syringe) 25-50ML OF 50% DW IV FOR... UD PRN IV 10/16/16 10:45 11/15/16 10:44 Glucagon 1 mg 1 mg UD PRN SQ 10/16/16 10:45 11/15/16 10:44 Levofloxacin/Prmx (Levaquin / D5W/ Premixed D5W) 150 ml @ 100 mls/hr Q48H IV 10/16/16 14:00 10/23/16 13:59 10/16/16 14:16 100 MLS/HR Levalbuterol (Xopenex 1.25MG/ 0.5ML Neb) 1.25 mg Q6R INH 10/16/16 15:00 11/15/16 14:59 10/17/16 08:18 1.25 MG Atorvastatin Calcium (Lipitor Tab) 20 mg DAILY PO 10/17/16 09:00 11/16/16 08:59 Famotidine (Pepcid Tab) 20 mg QPM PO 10/16/16 21:00 11/15/16 20:59 10/16/16 20:09 20 MG Folic Acid (Folvite Tab) 1 mg DAILY PO 10/17/16 09:00 11/16/16 08:59 Pantoprazole Sodium (Protonix Tab) 40 mg DAILY PO 10/17/16 09:00 11/16/16 08:59 Levofloxacin (Consult) 1 ea UD PRN N/A 10/16/16 12:45 11/15/16 12:44 Amiodarone HCl 200 mg 200 mg BID PO 10/16/16 21:00 11/15/16 20:59 10/17/16 08:26 200 MG Sodium Chloride 1,000 ml @ 125 mls/hr Q8H IV 10/17/16 07:45 11/16/16 07:44 10/17/16 08:25 125 MLS/HR Vancomycin HCl 1000 mg/Sodium Chloride 270 ml @ 125 mls/hr Q12 IV 10/17/16 09:00 10/24/16 08:59 UNV Piperacillin Sod/ Tazobactam Sod 3.375 gm/Dextrose 115 ml @ 200 mls/hr Q6 IV 10/17/16 12:00 10/24/16 11:59 UNV Piperacillin Sod/ Tazobactam Sod/ Dextrose (Zosyn Iv/D5 100ml) 115 ml @ 200 mls/hr TODAY@0845 IV 10/17/16 08:45 10/17/16 09:20 Piperacillin Sod/ Tazobactam Sod (Consult) 1 ea UD PRN N/A 10/17/16 08:30 11/16/16 08:29 Vancomycin HCl 1 ea 1 ea UD PRN N/A 10/17/16 08:30 11/16/16 08:29 Vancomycin HCl/ Sodium Chloride (Vancomycin Inj/ Nss 500ml) 556 ml @ 200 mls/hr TODAY@0900 IV 10/17/16 09:00 10/17/16 11:47 Objective Vital Signs Date Time Temp Pulse Resp B/P Pulse Ox O2 Delivery O2 Flow Rate FiO2 10/17/16 07:58 36.5 88 22 91/54 98 CPAP 30 10/17/16 07:00 99 Nasal Cannula 2.0 10/17/16 05:29 81 100 30 10/17/16 04:22 37.1 90 20 87/53 100 10/17/16 04:17 98 BiPAP 50 10/17/16 02:39 101 22 95 BiPAP/CPAP 50 10/17/16 02:10 88 98 30 10/17/16 00:28 98 BiPAP 50 10/17/16 00:18 37.2 87 18 99/62 99 BiPAP 10/16/16 22:16 96 98 30 10/16/16 20:00 98 BiPAP 50 10/16/16 19:33 36.8 107 22 100/67 98 Nasal Cannula 2.0 10/16/16 18:45 105 22 95 Nasal Cannula 2.5 10/16/16 15:28 37.8 108 20 77/49 99 BiPAP 10/16/16 14:01 111 100 50 10/16/16 14:01 111 30 100 BiPAP/CPAP 50 10/16/16 12:55 36.9 107 18 85/56 100 10/16/16 12:30 36.8 106 24 99/62 10/16/16 10:35 100 BiPAP 50 10/16/16 09:39 107 100 50 10/16/16 08:43 102 18 217/100 100 Room Air 10/16/16 08:35 105 Physical Exam General Appearance: no apparent distress, + pertinent finding (+weakness, ) Respiratory/Chest: no respiratory distress, no accessory muscle use Cardiovascular: regular rate, rhythm, no gallop, no JVD, no murmur Abdomen: normal bowel sounds, non tender, soft Extremities: + pertinent finding (+DINA hose, +SCDs in place; LLE still warm to touch, erythematous) Neurologic/Psychiatric: no motor/sensory deficits, alert, normal mood/affect Laboratory Results Last 24 Hours Test 10/16/16 14:12 10/16/16 15:30 10/16/16 16:05 10/16/16 16:16 Bedside Glucose 165 mg/dl 173 mg/dl Urine Color DK YELLOW Urine Appearance CLOUDY Urine pH 5.0 Urine Specific [place] 1.022 Urine Protein NEG Urine Glucose (UA) NEG Urine Ketones TRACE Urine Occult Blood 2+ Urine Nitrite NEG Urine Bilirubin NEG Urine Urobilinogen NEG Urine Leukocyte Esterase NEG Urine WBC (Auto) 1-5 /hpf Urine RBC (Auto) 0-4 /hpf Urine Hyaline Casts (Auto) 5-10 /lpf Urine Epithelial Cells (Auto) >30 /lpf Urine Bacteria (Auto) NEG Urine Pathogenic Casts 1-5 GRANULAR CASTS /lpf Lactic Acid Level 6.7 mmol/L Test 10/16/16 17:47 10/16/16 20:08 10/16/16 21:35 10/16/16 23:54 Total Creatine Kinase 3425 U/L 3002 U/L Creatine Kinase MB 12.1 ng/ml 13.8 ng/ml Creatine Kinase MB Ratio 0.4 0.5 Troponin I 0.609 ng/ml 0.500 ng/ml Bedside Glucose 188 mg/dl Urine Color DK YELLOW Urine Appearance CLOUDY Urine pH 5.0 Urine Specific [place] 1.023 Urine Protein TRACE Urine Glucose (UA) NEG Urine Ketones TRACE Urine Occult Blood 2+ Urine Nitrite NEG Urine Bilirubin NEG Urine Urobilinogen NEG Urine Leukocyte Esterase NEG Urine WBC (Auto) 1-5 /hpf Urine RBC (Auto) 0-4 /hpf Urine Hyaline Casts (Auto) 5-10 /lpf Urine Epithelial Cells (Auto) >30 /lpf Urine Bacteria (Auto) NEG Urine Renal Epithelial Cells 0-5 /lpf Urine Crystals AMORPHOUS SEDIMENT Urine Pathogenic Casts 0-3 GRANULAR CASTS /lpf Urine Yeast (Auto) PRESENT Test 10/17/16 05:09 10/17/16 06:28 White Blood Count 4.78 K/uL Red Blood Count 3.01 M/uL Hemoglobin 8.5 g/dL Hematocrit 27.6 % Mean Corpuscular Volume 91.7 fL Mean Corpuscular Hemoglobin 28.2 pg Mean Corpuscular Hemoglobin Concent 30.8 g/dl RDW Standard Deviation 54.6 fL RDW Coefficient of Variation 16.2 % Platelet Count 34 K/uL Mean Platelet Volume 10.6 fL Sodium Level 144 mmol/L Potassium Level 4.8 mmol/L Chloride Level 111 mmol/L Carbon Dioxide Level 21 mmol/L Anion Gap 12.0 mmol/L Blood Urea Nitrogen 50 mg/dl Creatinine 3.80 mg/dl Est Creatinine Clear Calc Drug Dose 19.9 ml/min Estimated GFR () 15.7 Estimated GFR (Non- 13.5 BUN/Creatinine Ratio 13.2 Random Glucose 200 mg/dl Estimated Average Glucose 131 mg/dl Hemoglobin A1c 6.2 % Lactic Acid Level 5.6 mmol/L Calcium Level 7.5 mg/dl Phosphorus Level 4.2 mg/dl Magnesium Level 2.2 mg/dl Total Creatine Kinase 2168 U/L Creatine Kinase MB 11.3 ng/ml Creatine Kinase MB Ratio 0.5 Troponin I 0.418 ng/ml Bedside Glucose 188 mg/dl Assessment and Plan This is a 86 year old male with a PMH of CKD stage IV, sinus node dysfunction s/ p PPM, COPD, DM2, HTN, HLD - recent hospital admission in August 2016 with volume overload, here with acute kidney injury, rhabdomyolysis and possible pneumonia Acute Kidney Injury superimposed on CKD stage IV 10/17 creatinine up to 3.8 today, likely from dehydration and infection will restart fluids at 125mL/hr, he is now eating as of this breakfast rhabdo still an issue; will need to continue fluid resuscitation 10/16 was discharged here on 09/09 with a creatinine of 2.3 presents today with creatinine of 3.1 likely worsened by rhabdomyolysis as well as dehydration + infection was seen by nephrology on 10/12 and was doing fairly well weight today slightly higher than in the outpatient setting will hold Lasix, will try to avoid nephrotoxic agents IVFs - cautiously to avoid diastolic CHF, edema, etc. nephrology consulted for further input Rhabdomyolysis 10/17 CPK still elevated to > 2000 continue IVFs 10/16 CPK level elevated > 2000 will need to give IVFs due to MAGEN repeat q6 hours Syncope and Collapse Head CT and cervical spine CT negative unsure of the cause; dehydration, functional decline, infectious process? cultures pending will need PT/OT Elevated Troponin troponin level elevated possibly secondary to dehydration, MAGEN, rhabdo Wide QRS noted on EKG will trend enzymes cardiology consulted for further input Community Acquired Pneumonia 10/17 due to elevated lactic acid, and +blood cultures x2, will expand abx. coverage; d/c Unasyn, start Zosyn + Vancomcyin; continue Levaquin for now WBC down to ~ 4, his baseline seems to be 2k continue to monitor CBC 10/16 WBC ~ 10k last month, patient was leukopenic at around 2k +productive cough CXR seems to suggest possible infectious process will start Unasyn + Levaquin blood cultures, sputum culture pending Non-Purulent Cellulitis of LLE Left LE; erythematous, warm to touch Doppler negative for DVT continue Zosyn + Vanco Heart Failure with Preserved EF 10/17 no shortness of breath, continue IVFs for now 10/16 echo during last admission showed a preserved EF likely diastolic CHF, he has shortness of breath cardiorenal syndrome for now, hold Lasix, give some fluids gently and cautiously, but will need to restart Lasix cardiology and nephrology for further input currently on Bipap, can wean as tolerated Hypertensive Urgency 10/17 monitor BP as it is now on the lower end hold antihypertensives, continue IVFs 10/16 blood pressure >200/100 on admission will give a dose of Hydralazine avoid NICHOLE-I/ARB/diuretics for now, no CCB due to edema COPD 10/17 back on room air, continue to monitor and nebs PRN 10/16 shortness of breath, no wheezing heard Bipap for now nebulizers PRN DM2 Ha1c = 6.2%, well controlled at home increase lantus to 12 units BID and cont. sliding scale Sinus Node Dysfunction s/p PPM DVT ppx DINA + SCDs hx. of MDS and thrombocytopenia DNR
[2016-10-17] MEDS ORDERED: PIPERACILL/TAZOBAC IV 3.375 GM in DEXTROSE 5% 100ML 100 ML IV SCH (08:45)
[2016-10-17] MEDS ORDERED: VANCOMYCIN INJ 1,000 MG in SODIUM CHLORIDE 0.9% 250ML 250 ML IV SCH (09:00)
[2016-10-17] MEDS ORDERED: AMIODARONE 200 MG TAB PO SCH (09:00)
[2016-10-17] MEDS ORDERED: VANCOMYCIN INJ 2,800 MG in SODIUM CHLORIDE 0.9% 500ML 500 ML IV SCH (09:00)
--- NOTE | 2016-10-17 09:40 | CARDIOLOGY PROGRESS NOTE ---
DATE: 10/17/2016 SUBJECTIVE: The patient is seen and examined at the bedside. He is alert and sitting upright. The patient reports being on the ground for more than 12 hours on the day prior to ER evaluation. Overnight, there were no significant problems reported by the nursing staff. He remains in atrial fibrillation with an average heart rate of approximately 95 beats per minute and an underlying left bundle-branch block. The patient denies chest pain or shortness of breath at rest. His creatinine has trended upward to 3.8. Denies orthopnea or PND. Lower extremity edema unchanged. REVIEW OF SYSTEMS: The pertinent positives noted above and 4-system review including cardiovascular, pulmonary, gastroenterologic and neurologic systems otherwise negative. MEDICATIONS: Reviewed via EMR, please see list for details. LABORATORY DATA: Sodium 144, potassium 4.8, chloride 111. His CO2 is 21, BUN is 50, creatinine is 3.80. Lactic acid 5.6, troponin 0.418. White blood cell count 4.78, hemoglobin is 8.5, platelet count is 34. PHYSICAL EXAMINATION: VITAL SIGNS: Temperature is 37.2 degrees centigrade, pulse 88 beats per minute and irregular, respiratory rate is 18 breaths per minute, blood pressure 99/62, SaO2 is 98% on 4 liters nasal cannula. GENERAL: Chronically ill, awake, alert and oriented. He is in no acute distress. HEENT: His mucous membranes are dry. No scleral icterus. Conjunctivae pink. NECK: Supple without JVD or HJR in upright position. There are no carotid bruits. HEART: Irregular with normal S1 and S2. Heart sounds are distant. ABDOMEN: Obese, soft, and nontender. There is no rebound or guarding. Normal bowel sounds. EXTREMITIES: 1 to 2+ bilateral pretibial and pitting edema with stasis changes. FINAL IMPRESSION: 1. A complex 86-year-old patient presents with a mechanical fall, prolonged time on the ground with resultant rhabdomyolysis and acute renal insufficiency. 2. Atrial fibrillation with borderline rate control, however, improved overnight. 3. Remote history of hypertrophic cardiomyopathy, status post myomectomy. 4. History of symptomatic bradycardia, status post pacemaker insertion 2013. 5. Chronic kidney disease stage III-IV with superimposed acute insufficiency. PLAN AND RECOMMENDATIONS: Agree with increasing intravenous hydration to 125 mL per hour. Amiodarone has been titrated to 200 mg twice daily. The patient's platelet count has dropped further overnight with hydration. I would avoid subcutaneous or IV heparin at this time. Antibiotics will be managed per the internal medicine service. We will continue to follow during hospitalization.
--- NOTE | 2016-10-17 09:55 | Pharmacy Progress Note ---
Pharmacy Antibiotic Consult Date of Service: October 17, 2016. Pharmacy Dosing Scope Pharmacy is consulted to initiate vancomycin, zosyn, lvq IV dosing therapy, order appropriate labs and adjust drug dose/frequency. Subjective The patient is a 86 year old male admitted on October 16, 2016 at 10:54. Objective Height (Feet): 6 Height (Inches): 4.00 Weight (Kilograms): 120.700 Lab Results (24hrs): Test 10/16/16 15:30 10/16/16 16:05 10/16/16 20:08 10/16/16 21:35 Urine Color DK YELLOW DK YELLOW Urine Appearance CLOUDY (CLEAR) CLOUDY (CLEAR) Urine pH 5.0 (4.5-7.5) 5.0 (4.5-7.5) Urine Specific [place] 1.022 (1.000-1.030) 1.023 (1.000-1.030) Urine Protein NEG (NEG) TRACE (NEG) Urine Glucose (UA) NEG (NEG) NEG (NEG) Urine Ketones TRACE (NEG) TRACE (NEG) Urine Occult Blood 2+ (NEG) 2+ (NEG) Urine Nitrite NEG (NEG) NEG (NEG) Urine Bilirubin NEG (NEG) NEG (NEG) Urine Urobilinogen NEG (NEG) NEG (NEG) Urine Leukocyte Esterase NEG (NEG) NEG (NEG) Urine WBC (Auto) 1-5 /hpf (0-5) 1-5 /hpf (0-5) Urine RBC (Auto) 0-4 /hpf (0-4) 0-4 /hpf (0-4) Urine Hyaline Casts (Auto) 5-10 /lpf (0-5) 5-10 /lpf (0-5) Urine Epithelial Cells (Auto) >30 /lpf (0-5) >30 /lpf (0-5) Urine Bacteria (Auto) NEG (NEG) NEG (NEG) Urine Pathogenic Casts 1-5 GRANULAR CASTS /lpf (0) 0-3 GRANULAR CASTS /lpf (0) Lactic Acid Level 6.7 mmol/L (0.4-2.0) Bedside Glucose 188 mg/dl (70-99) Urine Renal Epithelial Cells 0-5 /lpf (0-5) Urine Crystals AMORPHOUS SEDIMENT (NONE Urine Yeast (Auto) PRESENT (NONE PRSENT) Test 10/16/16 23:54 10/17/16 05:09 10/17/16 06:28 Total Creatine Kinase 3002 U/L (39-308) 2168 U/L (39-308) Creatine Kinase MB 13.8 ng/ml (0.5-3.6) 11.3 ng/ml (0.5-3.6) Creatine Kinase MB Ratio 0.5 (0-3.0) 0.5 (0-3.0) Troponin I 0.500 ng/ml (0-0.045) 0.418 ng/ml (0-0.045) White Blood Count 4.78 K/uL (4.8-10.8) Red Blood Count 3.01 M/uL (4.7-6.1) Hemoglobin 8.5 g/dL (14.0-18.0) Hematocrit 27.6 % (42-52) Mean Corpuscular Volume 91.7 fL (80-100) Mean Corpuscular Hemoglobin 28.2 pg (25-34) Mean Corpuscular Hemoglobin Concent 30.8 g/dl (32-36) RDW Standard Deviation 54.6 fL (36.4-46.3) RDW Coefficient of Variation 16.2 % (11.5-14.5) Platelet Count 34 K/uL (130-400) Mean Platelet Volume 10.6 fL (7.4-10.4) Sodium Level 144 mmol/L (136-145) Potassium Level 4.8 mmol/L (3.5-5.1) Chloride Level 111 mmol/L (98-107) Carbon Dioxide Level 21 mmol/L (21-32) Anion Gap 12.0 mmol/L (3-11) Blood Urea Nitrogen 50 mg/dl (7-18) Creatinine 3.80 mg/dl (0.60-1.40) Est Creatinine Clear Calc Drug Dose 19.9 ml/min Estimated GFR () 15.7 Estimated GFR (Non- 13.5 BUN/Creatinine Ratio 13.2 (10-20) Random Glucose 200 mg/dl (70-99) Estimated Average Glucose 131 mg/dl Hemoglobin A1c 6.2 % (4.5-5.6) Lactic Acid Level 5.6 mmol/L (0.4-2.0) Calcium Level 7.5 mg/dl (8.5-10.1) Phosphorus Level 4.2 mg/dl (2.5-4.9) Magnesium Level 2.2 mg/dl (1.8-2.4) Bedside Glucose 188 mg/dl (70-99) Assessment & Plan Patient started on vancomycin, levaquin, and zosyn for possible CAP, cellulitis infection. Had initially been on unasyn and levaquin however, BC now growing Gm + cocci therefore abx adjusted. Vancomycin: * Received LD of vancomycin 2800 mg (~23 mg/kg) iv x 1 this am * Scr continues to rise today from 3.1 to 3.8 mg/dL (CrCl ~20 ml/min) * Estimated kinetics: t1/2>24 hrs, ke~0.021 * Will hold further doses today and order a random level in the am to assist with further dosing; estimated level tomorrow still >15 mcg/ml (goal 15-20 mcg/ ml for bacteremia/PNA) Zosyn: * 3.375 gm iv q 12 hrs (appropriate for CrCl <20 ml/min) patient on borderline for adjusted dose, will reevaluate tomorrow and adjust as necessary Lvq: * 750 mg iv q 48 hrs (appropriate for CrCl 20-49 ml/min) no change today; may need to adjust tomorrow if Scr worsens Pharmacy will continue to follow and will adjust dose/frequency as necessary. Thank you
[2016-10-17 12:10] LABS: CKMB/CK RATIO 0.5 (0-3.0)
--- NOTE | 2016-10-17 12:53 | Nephrology Consultation ---
Nephrology Consultation Date of Consultation: October 17, 2016. Attending Physician: Dr Saleh Requesting Physician: Dr Saleh Reason for Consultation: MAGEN on CKD 4, rhabdomyolysis History of Present Illness 86 year old male brought to hospital yesterday AM after he spent 12 or more hours on the floor after falling at home evening before admission and was too weak to get up and find his phone. Noted on arrival here to have creatinine 3.1 , troponin 0.4, K 4.3, lactic acid 6.7, CK 2290. On day prior to the fall he had been feeling well, had been out shopping. Admission blood cultures are 4/4 GPC. Other possible sources of infection include possible LLE cellulitis and possible PNA. Pt has had ongoing cough for at least 2-3 weeks prior to admission. No evidence of acute fracture after the fall. He has had ongoing weakness and mm pain; today only LLE pain. Daughter and YOLI at bedside and note he had rigors yesterday (different than baseline tremors); none today. This morning, his creatinine has increased to 3.8; lactate down to 5.6; CK 2168. No brown or red urine, though it has been quite dark yellow. He was started on NS at 100 hourly and this was increased to 125 mL hourly this AM; remains on RA. His blood pressure was elevated on presentation w/ sbp in 200s. Most recently however has been more in 90s-100s w/ HR in 100s. His baseline creatinine has worsened over the past several months but most recent baseline in 2.0-2.3 range in past month. 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 -chronic LBBB -HL -carlita on cpap -bladder CA managed conservatively -HTN -low grade 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, 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; plts often run in 40-50s; hgb often in 9-10 range; WBC often 3-4 -COPD -DM since 2010 on insulin Family History FHx: heart disease Social History Smoking Status: Never Smoker Alcohol Use: none Drug Use: none Marital Status: Housing Status: lives alone Occupation Status: unemployed Allergies Coded Allergies: Propranolol (Verified Allergy, Unknown, 10/16/16) Codeine (Verified Adverse Reaction, Mild, NOTED "DOESNT TOLERATE WELL" , 10/16/16) Medications Current Inpatient Medications Medications (Trade) Dose Ordered Sig/Gin Route Start Time Stop Time Status Last Admin Dose Admin Acetaminophen (Tylenol Tab) 650 mg Q4H PRN PO 10/16/16 10:45 11/15/16 10:44 Al Hydrox/Mg Hydrox/Simethicone (Maalox Max Susp) 15 ml Q4H PRN PO 10/16/16 10:45 11/15/16 10:44 Magnesium Hydroxide (Milk Of Magnesia Susp) 30 ml Q12H PRN PO 10/16/16 10:45 11/15/16 10:44 Ondansetron HCl (Zofran Inj) 4 mg Q6H PRN IV 10/16/16 10:45 11/15/16 10:44 Polyethylene (Miralax Powder Packet) 17 gm DAILY PRN PO 10/16/16 10:45 11/15/16 10:44 Insulin Aspart (novoLOG ASPART) SLIDING SCALE If C... ACHS SC 10/16/16 11:00 11/15/16 10:59 10/17/16 08:22 5 UNITS Glucose (Glucose 40% Gel) 15-30 GRAMS 15 GRAMS... UD PRN PO 10/16/16 10:45 11/15/16 10:44 Glucose (Glucose Chew Tab) 4-8 Tablets 4 Tabl... UD PRN PO 10/16/16 10:45 11/15/16 10:44 Dextrose (Dextrose 50% 50ML Syringe) 25-50ML OF 50% DW IV FOR... UD PRN IV 10/16/16 10:45 11/15/16 10:44 Glucagon 1 mg 1 mg UD PRN SQ 10/16/16 10:45 11/15/16 10:44 Levofloxacin/Prmx (Levaquin / D5W/ Premixed D5W) 150 ml @ 100 mls/hr Q48H IV 10/16/16 14:00 10/23/16 13:59 10/16/16 14:16 100 MLS/HR Levalbuterol (Xopenex 1.25MG/ 0.5ML Neb) 1.25 mg Q6R INH 10/16/16 15:00 11/15/16 14:59 10/17/16 08:18 1.25 MG Atorvastatin Calcium (Lipitor Tab) 20 mg DAILY PO 10/17/16 09:00 11/16/16 08:59 10/17/16 08:26 20 MG Famotidine (Pepcid Tab) 20 mg QPM PO 10/16/16 21:00 11/15/16 20:59 10/16/16 20:09 20 MG Folic Acid (Folvite Tab) 1 mg DAILY PO 10/17/16 09:00 11/16/16 08:59 10/17/16 08:26 1 MG Pantoprazole Sodium (Protonix Tab) 40 mg DAILY PO 10/17/16 09:00 11/16/16 08:59 10/17/16 08:27 40 MG Levofloxacin (Consult) 1 ea UD PRN N/A 10/16/16 12:45 11/15/16 12:44 Amiodarone HCl 200 mg 200 mg BID PO 10/16/16 21:00 11/15/16 20:59 10/17/16 08:26 200 MG Sodium Chloride 1,000 ml @ 125 mls/hr Q8H IV 10/17/16 07:45 11/16/16 07:44 10/17/16 08:25 125 MLS/HR Vancomycin HCl 1000 mg/Sodium Chloride 270 ml @ 125 mls/hr Q12 IV 10/17/16 09:00 10/24/16 08:59 UNV Piperacillin Sod/ Tazobactam Sod/ Dextrose (Zosyn Iv/D5 100ml) 115 ml @ 200 mls/hr Q6 IV 10/17/16 12:00 10/24/16 11:59 UNV Piperacillin Sod/ Tazobactam Sod (Consult) 1 ea UD PRN N/A 10/17/16 08:30 11/16/16 08:29 Vancomycin HCl 1 ea 1 ea UD PRN N/A 10/17/16 08:30 11/16/16 08:29 Vancomycin HCl/ Sodium Chloride (Vancomycin Inj/ Nss 500ml) 556 ml @ 200 mls/hr TODAY@0900 IV 10/17/16 09:00 10/17/16 11:47 Insulin Glargine (Lantus Solostar Pen) 12 unit Q12 SC 10/17/16 21:00 11/16/16 20:59 Home Meds and Scripts Medications Dose Route/Sig Max Daily Dose Days Date Category Dose Instructions Furosemide 40 Mg Tab 80 Mg PO BID 10 09/09/16 Rx Lantus (Insulin Glargine) 100 Unit/Ml Inj 24 Units SC HS 30 09/09/16 Rx Flonase Allergy Relief (Fluticasone Propionate (Nasal)) 50 Mcg/Act Spr 2 [place] MAGAN DAILY 09/01/16 Reported Prandin (Repaglinide) 0.5 Mg Tab 2 Mg PO AC 09/01/16 Reported Protonix (Pantoprazole Sodium) 40 Mg Tab 40 Mg PO DAILY 09/01/16 Reported Amiodarone HCl 200 Mg Tab 200 Mg PO DAILY 09/01/16 Reported Pepcid (Famotidine) 20 Mg Tab 20 Mg PO QPM 01/19/14 Reported Tylenol (Acetaminophen) 325 Mg Tab 650 Mg PO Q4 PRN 08/26/13 Reported NOT TO EXCEED 3000MG APAP/24HR Nitrostat (Nitroglycerin) 0.4 Mg Tab 0.4 Mg UT PRN 08/26/13 Reported Folic Acid 1 Mg Tab 1 Mg PO DAILY 08/26/13 Reported Klor-Con (Potassium Chloride) 20 Meq Tabcr 20 Meq PO BID 08/26/13 Reported Lipitor (Atorvastatin) 20 Mg Tab 20 Mg PO DAILY 07/28/13 Reported Januvia (Sitagliptin Phosphate) 50 Mg Tab 50 Mg PO DAILY 07/28/13 Reported Review of Systems Constitutional: + chills, + fatigue, + weakness Eyes: No worsening of vision ENT: No hearing loss Respiratory: + cough, + dyspnea at rest, + dyspnea on exertion Cardiac: + edema, No PND, No chest pain, No palpitations Abdomen: + problem reported (denies increased abd girth), + vomiting ( yesterday ), No constipation, No diarrhea, No nausea, No pain Musculoskeletal: + joint pain, + muscle pain (sudeep LLE) Male : No dysuria, No hematuria, No incontinence, No urinary frequency Neuro: + balance problems, + weakness, No memory loss Psych: No anxiety, No depression symptoms Heme: No abnormal bleeding/bruising Endo: + fatigue Skin: + new/changing skin lesions (abrasion R knee after fall; some post LLE blisters noted at admission), No bleeding, No rash Physical Exam Date Time Temp Pulse Resp B/P Pulse Ox O2 Delivery O2 Flow Rate FiO2 10/17/16 07:58 36.5 88 22 91/54 98 CPAP 30 10/17/16 07:00 99 Nasal Cannula 2.0 10/17/16 05:29 81 100 30 10/17/16 04:22 37.1 90 20 87/53 100 10/17/16 04:17 98 BiPAP 50 10/17/16 02:39 101 22 95 BiPAP/CPAP 50 10/17/16 02:10 88 98 30 10/17/16 00:28 98 BiPAP 50 10/17/16 00:18 37.2 87 18 99/62 99 BiPAP 10/16/16 22:16 96 98 30 10/16/16 20:00 98 BiPAP 50 10/16/16 19:33 36.8 107 22 100/67 98 Nasal Cannula 2.0 10/16/16 18:45 105 22 95 Nasal Cannula 2.5 10/16/16 15:28 37.8 108 20 77/49 99 BiPAP 10/16/16 14:01 111 100 50 10/16/16 14:01 111 30 100 BiPAP/CPAP 50 10/16/16 12:55 36.9 107 18 85/56 100 10/16/16 12:30 36.8 106 24 99/62 10/16/16 10:35 100 BiPAP 50 24-Hour Column 10/17/16 08:00 Intake Total 1302 ml Output Total 400 ml Balance 902 ml General Appearance: WD/WN, no apparent distress, + obese (on RA w/ NAD, tired) Eyes: EOMI ENT: hearing grossly normal Neck: supple Respiratory/Chest: no respiratory distress, no accessory muscle use (no wheez) , + decreased breath sounds, + crackles (bibasilar) Cardiovascular: + tachycardia (in low 100s; distant), + irregularly irregular, + pertinent finding (edema 1+ dependent) Abdomen: non tender, soft, no organomegaly (keyes w/ dark yellow urine about 200 mL) Extremities: + calf tenderness (LLE), + pedal edema (1-2+; 2+ LLE) Neurologic/Psych: alert, normal mood/affect, oriented x 3 Skin: no jaundice, warm/dry, no rash Diagnostics Last 24 Hours Test 10/16/16 14:12 10/16/16 15:30 10/16/16 16:05 10/16/16 16:16 Bedside Glucose 165 mg/dl 173 mg/dl Urine Color DK YELLOW Urine Appearance CLOUDY Urine pH 5.0 Urine Specific [place] 1.022 Urine Protein NEG Urine Glucose (UA) NEG Urine Ketones TRACE Urine Occult Blood 2+ Urine Nitrite NEG Urine Bilirubin NEG Urine Urobilinogen NEG Urine Leukocyte Esterase NEG Urine WBC (Auto) 1-5 /hpf Urine RBC (Auto) 0-4 /hpf Urine Hyaline Casts (Auto) 5-10 /lpf Urine Epithelial Cells (Auto) >30 /lpf Urine Bacteria (Auto) NEG Urine Pathogenic Casts 1-5 GRANULAR CASTS /lpf Lactic Acid Level 6.7 mmol/L Test 10/16/16 17:47 10/16/16 20:08 10/16/16 21:35 10/16/16 23:54 Total Creatine Kinase 3425 U/L 3002 U/L Creatine Kinase MB 12.1 ng/ml 13.8 ng/ml Creatine Kinase MB Ratio 0.4 0.5 Troponin I 0.609 ng/ml 0.500 ng/ml Bedside Glucose 188 mg/dl Urine Color DK YELLOW Urine Appearance CLOUDY Urine pH 5.0 Urine Specific [place] 1.023 Urine Protein TRACE Urine Glucose (UA) NEG Urine Ketones TRACE Urine Occult Blood 2+ Urine Nitrite NEG Urine Bilirubin NEG Urine Urobilinogen NEG Urine Leukocyte Esterase NEG Urine WBC (Auto) 1-5 /hpf Urine RBC (Auto) 0-4 /hpf Urine Hyaline Casts (Auto) 5-10 /lpf Urine Epithelial Cells (Auto) >30 /lpf Urine Bacteria (Auto) NEG Urine Renal Epithelial Cells 0-5 /lpf Urine Crystals AMORPHOUS SEDIMENT Urine Pathogenic Casts 0-3 GRANULAR CASTS /lpf Urine Yeast (Auto) PRESENT Test 10/17/16 05:09 10/17/16 06:28 White Blood Count 4.78 K/uL Red Blood Count 3.01 M/uL Hemoglobin 8.5 g/dL Hematocrit 27.6 % Mean Corpuscular Volume 91.7 fL Mean Corpuscular Hemoglobin 28.2 pg Mean Corpuscular Hemoglobin Concent 30.8 g/dl RDW Standard Deviation 54.6 fL RDW Coefficient of Variation 16.2 % Platelet Count 34 K/uL Mean Platelet Volume 10.6 fL Sodium Level 144 mmol/L Potassium Level 4.8 mmol/L Chloride Level 111 mmol/L Carbon Dioxide Level 21 mmol/L Anion Gap 12.0 mmol/L Blood Urea Nitrogen 50 mg/dl Creatinine 3.80 mg/dl Est Creatinine Clear Calc Drug Dose 19.9 ml/min Estimated GFR () 15.7 Estimated GFR (Non- 13.5 BUN/Creatinine Ratio 13.2 Random Glucose 200 mg/dl Estimated Average Glucose 131 mg/dl Hemoglobin A1c 6.2 % Lactic Acid Level 5.6 mmol/L Calcium Level 7.5 mg/dl Phosphorus Level 4.2 mg/dl Magnesium Level 2.2 mg/dl Total Creatine Kinase 2168 U/L Creatine Kinase MB 11.3 ng/ml Creatine Kinase MB Ratio 0.5 Troponin I 0.418 ng/ml Bedside Glucose 188 mg/dl Diagnostic Radiology: BLE doppler > no dvt Head and cervi CT >> no acute process including no frx CXR asymmetric R lung thickening >> plm vasc congestion versus infxn EKG: a fib Assessment & Plan 86 y/o M w/ MAGEN on CKD4, baseline creatinine in 2-2.3 range most recently, chronic LBBB, symptomatic bradycardia s/p pacer, HOCM s/p myectomy, COPD, CARLITA on CPAP, MDS, conservatively managed bladder CA, DM, HL admitted w/ bacteremia, elevated CK after a fall. Presenting creatinine 3.1, trended up to 3.8 today. ?oliguria as well. States he feels dyspneic but on RA currently. Also bp has been low MAGEN on CKD4 w/ oliguria, likeliest ATN in setting of rhabdomyolysis, bacteremia (preliminarily per lab Strep), PNA Rhabdo may be d/t prolonged time on ground as well as bacteremia. Lacking some of the typical electrolyte disorders seen w/ rhabdomyolysis such as hyperkalemia , hypocalcemia, hyperphosphatemia. CK trending down but oliguria concerning. Creatinine likely to worsen before it improves given labile blood pressures, infection in addition to elevated CK -no indication for acute dialysis but cannot rule out need given medical comorbidities, volume overload, worsening renal function -both urine specimens obtained yesterday were contaminated; they show possible ATN but no infection. urine not red or brown -oliguric -needs renal imaging; low threshold for CT chest as well>will disc best modality with primary service -if CK cont to trend down on noon labs, recommend checking only daily -repeat bmp ordered for noon; should check bid for now, depending on next results -agree w/ mariellao check of level in am -d/w pt and daughter > he is willing to try acute dialysis should need arise; not sure about chronic and recognizes may need to make separate/further decision about that -needs as aggressive rate of IVF as he will tolerate >> now increased to 150 mL hourly on daylight -nursing notes he drinks a lot > will limit to 1.8L fluid limit daily -f/u pending cxs; on zosyn and vanco; will order repeat vanco level for am Appreciate consult; will follow with you. Care coordinated w/ Dr. Saleh
[2016-10-17 12:56] LABS: BUN/CREATININE RATIO 14.6 (10-20); CALCIUM 7.3 mg/dl (8.5-10.1); CREATININE 3.7 mg/dl (0.60-1.40); POTASSIUM 4.4 mmol/L (3.5-5.1)
--- NOTE | 2016-10-17 14:08 | DIAGNOSTIC IMAGING REPORT ---
CHEST CT WITHOUT CONTRAST CT DOSE: 2608.55 mGy.cm HISTORY: Abnormal chest x-ray. poss. pneumonia, insterstitial thickening TECHNIQUE: Multiaxial CT images of the chest were performed without contrast. COMPARISON: Chest 10/16/2016. FINDINGS: Respiratory motion artifact. Patchy densities within the bilateral lower lobes. Faint right upper lobe posterior groundglass densities. No pneumothorax. Left-sided pacemaker. Poststernotomy changes. Focal calcification within the left thyroid lobe. No mediastinal or hilar lymphadenopathy. The heart is mildly enlarged. Normal caliber thoracic aorta. IMPRESSION: 1. Respiratory motion artifact. 2. Patchy densities within the bilateral lower lobes. This favors atelectasis. However, a pneumonia could also have a similar appearance. 3. Cardiomegaly. 4. Faint groundglass densities within the right upper lobe posteriorly. This may be due to developing congestive change versus a pneumonia. Electronically signed by: Richard Prescott M.D. 10/17/2016 2:07 PM Dictated Date/Time: 10/17/2016 2:03 PM
--- NOTE | 2016-10-17 14:20 | DIAGNOSTIC IMAGING REPORT ---
ABDOMEN AND PELVIS CT WITHOUT CONTRAST CT DOSE: HISTORY: Bladder cancer. Fever. TECHNIQUE: Multiaxial CT images of the abdomen and pelvis were performed without contrast. COMPARISON STUDY: None. FINDINGS: No pneumoperitoneum. No pneumatosis. No suspicious lytic or blastic osseous lesions. Nodular contour to the liver consistent with cirrhosis. Possible 2.7 cm hypodense lesion within the right hepatic dome. This is difficult to visualize on this noncontrast study. The spleen is mildly enlarged. The adrenal glands are unremarkable. No renal stones or hydronephrosis. Multiple hypodense lesions within the kidneys. These are incompletely characterize on this noncontrast study. Cholecystectomy. Mild periportal lymphadenopathy. Small amount of ascites. There is peripancreatic edema. Multiple duodenal diverticula. The bladder is decompressed by a Domingo catheter. Suboptimal evaluation for bowel pathology due to the lack of intravenous and oral contrast. Multiple colonic diverticula. No definite evidence for bowel obstruction. Normal appendix. Mild thickening at the hepatic flexure of the colon may be due to the adjacent cirrhosis and the patient's edematous state. There is also suggestion of mild thickening of the sigmoid colon. This favors a mild nonspecific sigmoid colitis. Small fat-containing right inguinal hernia. There may be mild thickening of the third portion of the duodenum. The suspected duodenal diverticula measure 2.1 and 3.8 cm in size. A 1.4 cm low-density lesion within the body of the pancreas. This favors a small side branch intraductal papillary mucinous neoplasm or serous cystadenoma. IMPRESSION: 1. Peripancreatic edema. There is also mild thickening at the third portion of the duodenum. This is most likely secondary to the patient's cirrhosis and edematous state. However, an acute pancreatitis could also have a similar appearance. Recommend correlation with pancreatic enzymes. 2. Cirrhosis with splenomegaly and a small amount of ascites. 3. Possible 2.7 cm hypodense lesion within the right hepatic dome. However, this is difficult to characterize on this noncontrast study. 4. Mild thickening of the sigmoid colon which likely represents a nonspecific colitis. 5. Additional findings as described above. Electronically signed by: Richard Prescott M.D. 10/17/2016 2:19 PM Dictated Date/Time: 10/17/2016 2:07 PM
[2016-10-17 14:47] LABS: BUN/CREATININE RATIO 14.9 (10-20); CALCIUM 7.3 mg/dl (8.5-10.1); CREATININE 3.7 mg/dl (0.60-1.40); POTASSIUM 4.2 mmol/L (3.5-5.1)
[2016-10-17] MEDS: PIPERACILL/TAZOBAC IV 3.375 GM in DEXTROSE 5% 100ML 100 ML IV SCH (16:07)
[2016-10-17] MEDS ORDERED: NURSING VERBAL MED ORDER ONE (20:00)
[2016-10-17] MEDS: FAMOTIDINE 20 MG TAB PO SCH (20:32)
[2016-10-18] VITALS (9 sets, daily range): BP systolic 88–107; BP diastolic 51–67; PULSE 72–93; TEMP 36.5–37.2; O2SAT 95–99
[2016-10-18] MEDS: LEVALBUTEROL 1.25MG/0.5ML NEB INH SCH ×4 (02:35→19:21)
[2016-10-18] MEDS: PIPERACILL/TAZOBAC IV 3.375 GM in DEXTROSE 5% 100ML 100 ML IV SCH (04:00)
[2016-10-18 07:31] LABS: CALCIUM 7.2 mg/dl (8.5-10.1); CREATININE 3.4 mg/dl (0.60-1.40); POTASSIUM 4.1 mmol/L (3.5-5.1)
[2016-10-18] MEDS: SODIUM CHLORIDE 0.9% 1000ML 1,000 ML IV SCH ×2 (08:08→19:26)
[2016-10-18] MEDS: AMIODARONE 200 MG TAB PO SCH ×2 (08:09→21:45)
[2016-10-18] MEDS: PANTOprazole SOD 40 MG TAB PO SCH (08:09)
[2016-10-18] MEDS: ATORVASTATIN 20 MG TAB PO SCH (08:09)
[2016-10-18] MEDS: INSULIN GLARGINE SOLOSTAR 100 UNITS/ML 3 ML PEN SC SCH ×2 (08:11→21:48)
[2016-10-18] MEDS: INSULIN ASPART 100 UNITS/ML 3 ML PEN SC SCH ×5 (08:14→21:47)
--- NOTE | 2016-10-18 09:07 | Cardiology Follow-Up ---
Subjective General Date of Service: October 18, 2016. Chief Complaint: Elevated troponin Pt evaluation today including: conversation w/ patient, physical exam, chart review, lab review, review of studies, review of inpatient medication list History of Present Illness Patient seen and examined. Feels "a little better" today. Ongoing dyspnea, cough, malaise, fatigue. No chest pain. No overt palpitations. No orthopnea or PND. Telemetry: Atrial fibrillation ~90-100 bpm. Left bundle branch block pattern. Pacemaker interrogation: Pending. September 02, 2016 TTE Interpretation Summary ([facility], Dr. Navarro): The left ventricle is normal in size. There is moderate concentric left ventricular hypertrophy. The patient is s/p septal myomectomy. Echo findings are not consistent with left ventricular outflow obstruction. Septal motion is consistent with conduction abnormality. No regional wall motion abnormalities noted. Ejection Fraction = 55-60%. Aortic valve sclerosis moderate, without significant aortic valvular stenosis. There is mild mitral annular calcification. There is trace mitral regurgitation. Allergies Coded Allergies: Propranolol (Verified Allergy, Unknown, 10/16/16) Codeine (Verified Adverse Reaction, Mild, NOTED "DOESNT TOLERATE WELL" , 10/16/16) Social History Smoking Status: Never Smoker Hx Tobacco Use In Past Year?: No Hx Alcohol Use - Type And Amou: No Hx Substance Use - Type And Am: No Problem List Medical Problems: (1) MAGEN (acute kidney injury) Status: Acute (2) Anasarca Status: Acute (3) Bilateral leg edema Status: Acute (4) CHF (congestive heart failure) Status: Acute (5) Dehydration Status: Acute (6) Dyspnea on exertion Status: Acute (7) Elevated troponin Status: Acute (8) Pulmonary edema Status: Acute (9) Right heart failure Status: Acute Physical Exam Vital Signs Last Vital Signs Documentation Date Time Temp Pulse Resp B/P Pulse Ox O2 Delivery O2 Flow Rate FiO2 10/18/16 08:19 37.2 84 22 96/55 99 BiPAP 7.0 10/17/16 07:58 30 Physical Exam Constitutional: General Apperance: overweight Level of Distress: acutely ill, chronically ill Psychiatric: Mental Status: active & alert Orientation: to time, to place, to person Memory: recent memory normal, remote memory normal Head: normocephalic, atraumatic Eyes: Pupils: PERRLA Neck: pertinent finding (Normal JVP) Lungs: Respiratory effort: dyspneic Auscultation: no wheezing, deminished air movement, decreased breath sounds , rales/crackles on the left, rales/crackles on the right Cardiovascular: Heart Auscultation: no rubs, tachycardia, II/ SOHAIL, gallop, irregular rate rhythm Peripheral Pulses: Radial Pulse: normal on the left, normal on the right Dorsalis Pedis Pulse: decreased on the left, decreased on the right Abdomen: Bowel Sounds: normal Inspection & Palpation: soft, no masses, distended Extremities: no cyanosis, no clubbing, edema (Trace to 1+ left greater than right lower extremity edema) Neurologic: Cranial Nerves: grossly intact Assessment and Plan Assessment and Plan Admission following a mechanical fall with prolonged downtime, resultant mild rhabdomyolysis Acute on chronic stage IV renal insufficiency secondary to intravascular volume depletion from sepsis, left lower extremity cellulitis versus community acquired pneumonia Paroxysmal atrial fibrillation with a mildly elevated ventricular response. Prior to hospitalization sinus was maintained with low dose amiodarone Patient with contraindications to antiplatelet and anticoagulation therapies (myelodysplastic disease, thrombocytopenia, fall) Elevated troponin without evidence of an acute coronary syndrome. 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 History of hypertrophic cardiomyopathy status post myomectomy. RECOMMENDATIONS: Recommend an alternative to Levaquin given the substantially increased risk of life-threatening arrhythmias when used in combination with amiodarone Continue amiodarone for now (? [facility] candidate). Add low dose Toprol XL 12.5 mg twice a day for additional heart rate control. Await pacemaker interrogation ([employer]) Lisinopril and furosemide to remain on hold. CARDIOLOGY ATTENDING ADDENDUM: The patient was seen and personally examined. Agree with Anastacio Montana PA-C's findings and plans as documented above. Laboratory Results Last 24 Hours Test 10/17/16 10:55 10/17/16 11:22 10/17/16 12:12 10/17/16 14:15 Total Creatine Kinase 1864 U/L 1904 U/L Creatine Kinase MB 9.9 ng/ml Creatine Kinase MB Ratio 0.5 Troponin I 0.276 ng/ml Bedside Glucose 194 mg/dl Sodium Level 145 mmol/L 143 mmol/L Potassium Level 4.4 mmol/L 4.2 mmol/L Chloride Level 112 mmol/L 111 mmol/L Carbon Dioxide Level 23 mmol/L 23 mmol/L Anion Gap 10.0 mmol/L 9.0 mmol/L Blood Urea Nitrogen 54 mg/dl 55 mg/dl Creatinine 3.70 mg/dl 3.70 mg/dl Est Creatinine Clear Calc Drug Dose 20.3 ml/min 20.3 ml/min Estimated GFR () 16.2 16.2 Estimated GFR (Non- 14.0 14.0 BUN/Creatinine Ratio 14.6 14.9 Random Glucose 181 mg/dl 177 mg/dl Lactic Acid Level 3.8 mmol/L Calcium Level 7.3 mg/dl 7.3 mg/dl Lipase 125 U/L Test 10/17/16 16:16 10/17/16 16:28 10/17/16 20:22 10/17/16 20:26 Lactic Acid Level 2.7 mmol/L 2.3 mmol/L Total Creatine Kinase 1711 U/L 1410 U/L Bedside Glucose 202 mg/dl 212 mg/dl Chemistry Specimen Hemolysis Test 10/18/16 00:11 10/18/16 06:00 Lactic Acid Level 1.8 mmol/L Total Creatine Kinase 1267 U/L Sodium Level 143 mmol/L Potassium Level 4.1 mmol/L Chloride Level 111 mmol/L Carbon Dioxide Level 24 mmol/L Anion Gap 8.0 mmol/L Blood Urea Nitrogen 61 mg/dl Creatinine 3.40 mg/dl Est Creatinine Clear Calc Drug Dose 22.3 ml/min Estimated GFR () 17.9 Estimated GFR (Non- 15.5 BUN/Creatinine Ratio 18.0 Random Glucose 162 mg/dl Calcium Level 7.2 mg/dl Random Vancomycin Level 17.3 mcg/ml
--- NOTE | 2016-10-18 11:45 | Progress Note ---
Internal Med Progress Note Date of Service: October 18, 2016. Provider Documentation: SUBJECTIVE: Patient did c/o abdominal pain on left side when they tried to roll him in bed. It has resolved now. Does have cough with sputum + , no chest pain, fever, chills C/o generalized weakness No nausea, vomiting, diarrhea, abdominal pain. Tolerating PO OOB to chair today OBJECTIVE: Vital Signs-as noted below Exam: General Appearance: no apparent distress, + pertinent finding (+weakness, ) Respiratory/Chest: no respiratory distress, no accessory muscle use Cardiovascular: regular rate, rhythm, no gallop, no JVD, no murmur Abdomen: normal bowel sounds, non tender, soft, Distended Extremities: + pertinent finding (+DINA hose, +SCDs in place; LLE still warm to touch, erythematous) Neurologic/Psychiatric: no motor/sensory deficits, alert, normal mood/affect Lab data as noted below. Diagnostic Radiology CT OF THE HEAD WITHOUT CONTRAST CLINICAL HISTORY: Fall. COMPARISON STUDY: No previous studies for comparison. TECHNIQUE: Helical axial images of the head were obtained without IV contrast. Automated exposure control was utilized for the study. FINDINGS: This exam is mildly compromised by motion artifact. No acute intracranial hemorrhage, midline shift or mass effect is present. Ventricular system is unremarkable for age. Basilar cisterns are patent. There are no extra-axial collections. There is moderate atrophy and mild small vessel disease. There is no calvarial fracture. There is mild mucosal thickening of the sinuses. IMPRESSION: 1. No acute intracranial findings. 2. No calvarial fracture. CHEST ONE VIEW PORTABLE CLINICAL HISTORY: Dyspnea. COMPARISON STUDY: Chest radiograph September 01, 2016. FINDINGS: There is no pneumothorax or pleural effusion. Moderate cardiomegaly is noted. There are median sternotomy wires and a dual lead left pacemaker. This study is compromised by motion artifact. There is pulmonary vasculature congestion. There is minimal left basilar opacity. IMPRESSION: 1. Moderate cardiomegaly. 2. Asymmetric right lung interstitial thickening which favors pulmonary vascular congestion with possible mild pulmonary edema. An infectious process could appear similar. CT OF THE CERVICAL SPINE WITHOUT CONTRAST CLINICAL HISTORY: Fall. COMPARISON STUDY: No previous studies for comparison. TECHNIQUE: Helical axial images of the cervical spine were obtained without IV contrast. Sagittal and coronal reconstructions were viewed. FINDINGS: No acute cervical spine fracture is identified. Craniocervical junction is intact. There is severe multilevel facet arthrosis and moderate multilevel degenerative disc disease. There is no prevertebral edema. There is made of slight reversal of the normal cervical lordosis. There is extensive anterior osteophytosis. IMPRESSION: 1. No acute cervical spine fracture or subluxation. 2. 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 EKG Wide QRS, LBBB ASSESSMENT & PLAN: Assessment and Plan : This is a 86 year old male with a PMH of CKD stage IV, sinus node dysfunction s/ p PPM, COPD, DM2, HTN, HLD - recent hospital admission in August 2016 with volume overload, here with acute kidney injury, Rhabdomyolysis and possible pneumonia. BACTEREMIA (GP B STREP) Likely secondary to COMMUNITY ACQUIRED PNEUMONIA/CELLULITIS Afebrile, No leucocytosis -S/P IV Unasyn. Changed to IV Zosyn/Vancomycin on 10/17 and was already on Levofloxacin. Will discontinue Levofloxacin as QTC prolonged and high risk of arrhythmias with his prior cardiac history -Lactic acid down from 6 to 1.8-normalized. CELLULITIS OF LEFT LE: Left LE; erythematous, warm to touch on presentation- improving -Doppler negative for DVT -Continue with IV Zosyn + Vanco MAGEN ON CK IV : Baseline around 2.0 and discharged with a creatinine of 2.3 in August 2016. Came with creatinine of 3.1 -Likely secondary to infection, rhabdomyolysis, volume depletion -IVF at 100 cc/hour- decrease the rate . Lasix held. Lisinopril discontinued. -Avoid nephrotoxic agents -Appreciate neurology inputs RHABDOMYOLYSIS: Secondary to prolonged immobilization secondary to fall due to weakness due to combination as above -CPK in on presentation, trending down. Did not present with typical rhabdomyolysis electrolyte abnormalities. -Continue with IVF -Monitor trend ? SYNCOPE : -Likely Multifactorial: Infection/Bacteremia, Volume depletion, MAGEN on CKD IV leading to generalized weakness (severe) to the extent that he was not able to get up from floor. So unclear it it was true syncope vs severe generalized weakness -Work up- CT head/Cervical spine- Negative; Pacemaker interrogation ordered -PT/OT- Likely will need rehab ELEVATED TROPONIN: Troponin elevated 0.420--> down to 0.276 , trending down -Likely related to above- Rhabo, MAGEN, Bacteremia leading to demand ischemia, less likely to be cardiac -EKG- Atrial fibrillation with LBBB, QTC 556- prolonged -Daily EKG for QTC. Discontinued Levofloxacin -Monitor on telemetry ABNORMAL CT SCAN ABDOMEN CT scan abd/pelvis shows multiple findings: 1. Peripancreatic edema with mild thickening of third portion of duodenum, which could be secondary to his cirrhosis. Lipase is negative, clinically no signs of pancreatitis 2. Cirrhosis with small ascites - Mildly elevated LFTs, INR 1.3 3. Possible 2.7 cm hypodense lesion within the right hepatic dome. However, this is difficult to characterize on this noncontrast study. 4. Mild thickening of the sigmoid colon which likely represents a nonspecific colitis.- Clinically less likely SINUS NODE DYSFUNCTION S/P PACEMAKER Paroxysmal A fib on EKG with prolonged QTC -Avoid QTC prolonging drugs -Continue with amiodarone BID per cardiology CHRONIC CHF WITH Preserved EF -Lasix held. -IVF cautiously. -Cardiology on board HYPERTENSIVE URGENCY BP was >200/100 on admission, now down -Held antihypertensives including lisinopril -Restarted toprol 12.5 mg PO BID today per cardiology COPD -No signs of exacerbation -BIPAP overnight -Nebulizers PRN DM2 Ha1c = 6.2%, well controlled at home -Increased lantus to 12 units BID and cont. sliding scale DVT ppx DINA + SCDs hx. of MDS and thrombocytopenia DNR DISPOSITION -Continue with tele monitoring -PT/OT -Will likely need rehab as lives alone with no support Vital Signs: Date Time Temp Pulse Resp B/P Pulse Ox O2 Delivery O2 Flow Rate FiO2 10/18/16 08:30 Nasal Cannula CPAP 10/18/16 08:19 37.2 84 22 96/55 99 BiPAP 7.0 10/18/16 08:15 Nasal Cannula CPAP 10/18/16 07:37 79 18 96 BiPAP/CPAP 2.0 10/18/16 04:00 Nasal Cannula CPAP 10/18/16 03:42 36.6 90 22 103/63 99 CPAP 2.0 10/18/16 00:01 Nasal Cannula CPAP 10/17/16 23:29 36.9 81 20 95/59 94 CPAP 2.0 10/17/16 20:00 Nasal Cannula 10/17/16 19:23 36.9 80 22 99/69 98 Nasal Cannula 2.0 10/17/16 19:20 91 18 98 Nasal Cannula 2.0 10/17/16 16:04 36.5 96 22 102/66 98 Nasal Cannula 2.0 10/17/16 14:17 110 22 96 Room Air Lab Results: Results Past 24 Hours Test 10/17/16 12:12 10/17/16 14:15 10/17/16 16:16 10/17/16 16:28 Range/Units Sodium Level 145 143 136-145 mmol/L Potassium Level 4.4 4.2 3.5-5.1 mmol/L Chloride Level 112 111 98-107 mmol/L Carbon Dioxide Level 23 23 21-32 mmol/L Anion Gap 10.0 9.0 3-11 mmol/L Blood Urea Nitrogen 54 55 7-18 mg/dl Creatinine 3.70 3.70 0.60-1.40 mg/dl Est Creatinine Clear Calc Drug Dose 20.3 20.3 ml/min Estimated GFR () 16.2 16.2 Estimated GFR (Non- 14.0 14.0 BUN/Creatinine Ratio 14.6 14.9 10-20 Random Glucose 181 177 70-99 mg/dl Lactic Acid Level 3.8 2.7 0.4-2.0 mmol/L Calcium Level 7.3 7.3 8.5-10.1 mg/dl Total Creatine Kinase 1904 1711 39-308 U/L Lipase 125 73-393 U/L Bedside Glucose 202 70-99 mg/dl Test 10/17/16 20:22 10/17/16 20:26 10/18/16 00:11 10/18/16 06:00 Range/Units Lactic Acid Level 2.3 1.8 0.4-2.0 mmol/L Total Creatine Kinase 1410 1267 39-308 U/L Chemistry Specimen Hemolysis Bedside Glucose 212 70-99 mg/dl Sodium Level 143 136-145 mmol/L Potassium Level 4.1 3.5-5.1 mmol/L Chloride Level 111 98-107 mmol/L Carbon Dioxide Level 24 21-32 mmol/L Anion Gap 8.0 3-11 mmol/L Blood Urea Nitrogen 61 7-18 mg/dl Creatinine 3.40 0.60-1.40 mg/dl Est Creatinine Clear Calc Drug Dose 22.3 ml/min Estimated GFR () 17.9 Estimated GFR (Non- 15.5 BUN/Creatinine Ratio 18.0 10-20 Random Glucose 162 70-99 mg/dl Calcium Level 7.2 8.5-10.1 mg/dl Random Vancomycin Level 17.3 mcg/ml Test 10/18/16 06:48 10/18/16 11:25 Range/Units Bedside Glucose 185 167 70-99 mg/dl
[2016-10-18] MEDS: METOPROLOL SUCC 25MG EXT REL TAB PO SCH ×2 (12:07→21:45)
[2016-10-18] MEDS ORDERED: AMPICILLIN/SULBACTAM CONSULT ACTIVE PRN ×2 (12:30)
[2016-10-18] MEDS: AMPICILLIN/SULBACTAM SOD INJ 3,000 MG in SODIUM CHLORIDE 0.9% 100ML 100 ML IV SCH (16:29)
[2016-10-18] MEDS: ACETAMINOPHEN 325 MG TAB PO PRN (17:02)
--- NOTE | 2016-10-18 17:52 | Nephrology Progress Note ---
Nephrology Progress Note Date of Service: October 18, 2016. Subjective seen at about 1600; c/o increased LE edema and had some prox stabbing ant LLE pain w/ moving for PT today though resolved on attempting later; still feels breathing labored; no n/v Objective Date Time Temp Pulse Resp B/P Pulse Ox O2 Delivery O2 Flow Rate FiO2 10/18/16 15:37 36.5 93 20 107/67 98 Room Air 10/18/16 14:23 77 18 98 Room Air 10/18/16 12:17 36.6 73 22 88/51 95 Room Air 10/18/16 08:30 Nasal Cannula CPAP 10/18/16 08:19 37.2 84 22 96/55 99 BiPAP 7.0 10/18/16 08:15 Nasal Cannula CPAP 10/18/16 07:37 79 18 96 BiPAP/CPAP 2.0 10/18/16 04:00 Nasal Cannula CPAP 10/18/16 03:42 36.6 90 22 103/63 99 CPAP 2.0 10/18/16 00:01 Nasal Cannula CPAP 10/17/16 23:29 36.9 81 20 95/59 94 CPAP 2.0 10/17/16 20:00 Nasal Cannula 10/17/16 19:23 36.9 80 22 99/69 98 Nasal Cannula 2.0 10/17/16 19:20 91 18 98 Nasal Cannula 2.0 Physical Exam: General Appearance: WD/WN, no apparent distress, + obese (on RA w/ NAD, today less tired) Eyes: EOMI ENT: hearing grossly normal Neck: supple Respiratory/Chest: no respiratory distress, no accessory muscle use (scattered wheeze), + decreased breath sounds, + crackles (diffuse) Cardiovascular: + tachycardia (in low 90s; distant), occasional premature beat , + pertinent finding (edema 2+ dependent) Abdomen: non tender, soft, no organomegaly (keyes w/ dark yellow urine) Extremities: + calf tenderness (LLE), + pedal edema (1-2+; 2+ LLE) Neurologic/Psych: alert, normal mood/affect, oriented x 3 Skin: no jaundice, warm/dry, no rash Current Inpatient Medications Medications (Trade) Dose Ordered Sig/Gin Route Start Time Stop Time Status Last Admin Dose Admin Acetaminophen (Tylenol Tab) 650 mg Q4H PRN PO 10/16/16 10:45 11/15/16 10:44 10/18/16 17:02 650 MG Al Hydrox/Mg Hydrox/Simethicone (Maalox Max Susp) 15 ml Q4H PRN PO 10/16/16 10:45 11/15/16 10:44 Magnesium Hydroxide (Milk Of Magnesia Susp) 30 ml Q12H PRN PO 10/16/16 10:45 11/15/16 10:44 Ondansetron HCl (Zofran Inj) 4 mg Q6H PRN IV 10/16/16 10:45 11/15/16 10:44 Polyethylene (Miralax Powder Packet) 17 gm DAILY PRN PO 10/16/16 10:45 11/15/16 10:44 Insulin Aspart (novoLOG ASPART) SLIDING SCALE If C... ACHS SC 10/16/16 11:00 11/15/16 10:59 10/18/16 12:12 5 UNITS Glucose (Glucose 40% Gel) 15-30 GRAMS 15 GRAMS... UD PRN PO 10/16/16 10:45 11/15/16 10:44 Glucose (Glucose Chew Tab) 4-8 Tablets 4 Tabl... UD PRN PO 10/16/16 10:45 11/15/16 10:44 Dextrose (Dextrose 50% 50ML Syringe) 25-50ML OF 50% DW IV FOR... UD PRN IV 10/16/16 10:45 11/15/16 10:44 Glucagon (Glucagon Inj) 1 mg UD PRN SQ 10/16/16 10:45 11/15/16 10:44 Levalbuterol (Xopenex 1.25MG/ 0.5ML Neb) 1.25 mg Q6R INH 10/16/16 15:00 11/15/16 14:59 10/18/16 14:23 1.25 MG Atorvastatin Calcium (Lipitor Tab) 20 mg DAILY PO 10/17/16 09:00 11/16/16 08:59 10/18/16 08:09 20 MG Famotidine (Pepcid Tab) 20 mg QPM PO 10/16/16 21:00 11/15/16 20:59 10/17/16 20:32 20 MG Folic Acid (Folvite Tab) 1 mg DAILY PO 10/17/16 09:00 11/16/16 08:59 10/18/16 08:09 1 MG Pantoprazole Sodium (Protonix Tab) 40 mg DAILY PO 10/17/16 09:00 11/16/16 08:59 10/18/16 08:09 40 MG Amiodarone HCl (Cordarone Tab) 200 mg BID PO 10/16/16 21:00 11/15/16 20:59 10/18/16 08:09 200 MG Insulin Glargine 12 unit 12 unit Q12 SC 10/17/16 21:00 11/16/16 20:59 10/18/16 08:11 12 UNIT Sodium Chloride (Nss 1000ml) 1,000 ml @ 75 mls/hr [id number] IV 10/17/16 21:00 11/16/16 20:59 10/18/16 08:08 100 MLS/HR Metoprolol Succinate (Toprol Xl Tab) 12.5 mg BID PO 10/18/16 10:00 11/17/16 09:59 10/18/16 12:07 12.5 MG Ampicillin Sodium/ Sulbactam Sodium 1 ea 1 ea UD PRN N/A 10/18/16 12:30 11/17/16 12:29 Ampicillin Sodium/ Sulbactam Sodium/ Sodium Chloride (Unasyn Inj/Nss 100ml) 108 ml @ 216 mls/hr Q12@0400,1600 IV 10/18/16 16:00 11/01/16 15:59 10/18/16 16:29 216 MLS/HR Last 24 Hours Test 10/17/16 20:22 10/17/16 20:26 10/18/16 00:11 10/18/16 06:00 Lactic Acid Level 2.3 mmol/L 1.8 mmol/L Total Creatine Kinase 1410 U/L 1267 U/L Chemistry Specimen Hemolysis Bedside Glucose 212 mg/dl Sodium Level 143 mmol/L Potassium Level 4.1 mmol/L Chloride Level 111 mmol/L Carbon Dioxide Level 24 mmol/L Anion Gap 8.0 mmol/L Blood Urea Nitrogen 61 mg/dl Creatinine 3.40 mg/dl Est Creatinine Clear Calc Drug Dose 22.3 ml/min Estimated GFR () 17.9 Estimated GFR (Non- 15.5 BUN/Creatinine Ratio 18.0 Random Glucose 162 mg/dl Calcium Level 7.2 mg/dl Random Vancomycin Level 17.3 mcg/ml Test 10/18/16 06:48 10/18/16 11:25 10/18/16 16:54 Bedside Glucose 185 mg/dl 167 mg/dl 218 mg/dl Other Studies: CT reviewed Assessment & Plan 86 y/o M w/ MAGEN on CKD4, baseline creatinine in 2-2.3 range most recently, chronic LBBB, symptomatic bradycardia s/p pacer, HOCM s/p myectomy, COPD, CARLITA on CPAP, MDS, conservatively managed bladder CA, DM, HL admitted w/ Strep bacteremia, elevated CK after a fall. Presenting creatinine 3.1, trended up to 3.8 yesterday, today 3.4. ?oliguria as well. States he feels dyspneic but on RA currently. Also bp has been low MAGEN on CKD4 no longer w/ oliguria, likeliest ATN in setting of rhabdomyolysis, strep bacteremia , PNA; now w/ new dx/finding of liver cirrhosis and peripancreatic edema Rhabdo may be d/t prolonged time on ground as well as bacteremia. Lacking some of the typical electrolyte disorders seen w/ rhabdomyolysis such as hyperkalemia , hypocalcemia, hyperphosphatemia. CK trending down but oliguria concerning. Creatinine likely to worsen before it improves given labile blood pressures, infection in addition to elevated CK which has now normalized -no indication for acute dialysis but cannot rule out need given medical comorbidities, volume overload, worsening renal function -both urine specimens obtained yesterday were contaminated; they show possible ATN but no infection. urine not red or brown -vanco level ok this am > no longer on it and now on unasyn -d/w pt and daughter > he is willing to try acute dialysis should need arise; not sure about chronic and recognizes may need to make separate/further decision about that; no acute indication at this time -needs as aggressive rate of IVF as he will tolerate >> cont lowered rate at 75 mL hourly NS -nursing notes he drinks a lot > will limit to 1.5L fluid limit daily Appreciate consult; will follow with you. Care will be coordinated w/ Dr. Brown
[2016-10-18] MEDS: FAMOTIDINE 20 MG TAB PO SCH (21:45)
[2016-10-19] VITALS (10 sets, daily range): BP systolic 90–117; BP diastolic 52–72; PULSE 63–82; TEMP 36.5–36.9; O2SAT 94–97
[2016-10-19] MEDS: LEVALBUTEROL 1.25MG/0.5ML NEB INH SCH ×4 (01:29→19:08)
[2016-10-19] MEDS: ACETAMINOPHEN 325 MG TAB PO PRN ×2 (04:25→21:22)
[2016-10-19] MEDS: AMPICILLIN/SULBACTAM SOD INJ 3,000 MG in SODIUM CHLORIDE 0.9% 100ML 100 ML IV SCH ×2 (04:25→17:31)
[2016-10-19 05:46] LABS: HEMATOCRIT 26.7 % (42-52); MEAN CELL VOLUME 89.9 fL (80-100); MEAN CORPUSCULAR HEMOGLOBIN 27.9 pg (25-34); MEAN CORPUSCULAR HGB CONC 31.1 g/dl (32-36); RED BLOOD COUNT 2.97 M/uL (4.7-6.1); WHITE BLOOD COUNT 3.98 K/uL (4.8-10.8)
[2016-10-19 05:47] LABS: MEAN PLATELET VOLUME 10.4 fL (7.4-10.4); PLATELET COUNT 40 K/uL (130-400)
[2016-10-19 06:15] LABS: BUN/CREATININE RATIO 18.8 (10-20); CREATININE 3.1 mg/dl (0.60-1.40); POTASSIUM 3.6 mmol/L (3.5-5.1)
[2016-10-19] MEDS: PANTOprazole SOD 40 MG TAB PO SCH (07:39)
[2016-10-19] MEDS: AMIODARONE 200 MG TAB PO SCH ×2 (07:39→21:24)
[2016-10-19] MEDS: ATORVASTATIN 20 MG TAB PO SCH (07:39)
[2016-10-19] MEDS: METOPROLOL SUCC 25MG EXT REL TAB PO SCH ×2 (07:41→21:23)
[2016-10-19] MEDS: INSULIN GLARGINE SOLOSTAR 100 UNITS/ML 3 ML PEN SC SCH ×2 (07:42→21:29)
[2016-10-19] MEDS: INSULIN ASPART 100 UNITS/ML 3 ML PEN SC SCH ×4 (08:59→21:30)
[2016-10-19] MEDS: SODIUM CHLORIDE 0.9% 1000ML 1,000 ML IV SCH (09:00)
--- NOTE | 2016-10-19 10:16 | Progress Note ---
Internal Med Progress Note Date of Service: October 19, 2016. Provider Documentation: SUBJECTIVE: Patient c/o generalized weakness. Does have cough with sputum + which has been ongoing x 2 weeks, no chest pain, fever, chills No nausea, vomiting, diarrhea, abdominal pain. Tolerating PO. OBJECTIVE: Vital Signs-as noted below Exam: General Appearance: no apparent distress, + pertinent finding (+weakness, ) Respiratory/Chest: no respiratory distress, no accessory muscle use Cardiovascular: regular rate, rhythm, no gallop, no JVD, no murmur Abdomen: normal bowel sounds, non tender, soft, Distended Extremities: + pertinent finding (LLE warm to touch, erythematous- improved); Wounds- dried on both LE- shins Lab data as noted below. Diagnostic Radiology CT OF THE HEAD WITHOUT CONTRAST CLINICAL HISTORY: Fall. COMPARISON STUDY: No previous studies for comparison. TECHNIQUE: Helical axial images of the head were obtained without IV contrast. Automated exposure control was utilized for the study. FINDINGS: This exam is mildly compromised by motion artifact. No acute intracranial hemorrhage, midline shift or mass effect is present. Ventricular system is unremarkable for age. Basilar cisterns are patent. There are no extra-axial collections. There is moderate atrophy and mild small vessel disease. There is no calvarial fracture. There is mild mucosal thickening of the sinuses. IMPRESSION: 1. No acute intracranial findings. 2. No calvarial fracture. CHEST ONE VIEW PORTABLE CLINICAL HISTORY: Dyspnea. COMPARISON STUDY: Chest radiograph September 01, 2016. FINDINGS: There is no pneumothorax or pleural effusion. Moderate cardiomegaly is noted. There are median sternotomy wires and a dual lead left pacemaker. This study is compromised by motion artifact. There is pulmonary vasculature congestion. There is minimal left basilar opacity. IMPRESSION: 1. Moderate cardiomegaly. 2. Asymmetric right lung interstitial thickening which favors pulmonary vascular congestion with possible mild pulmonary edema. An infectious process could appear similar. CT OF THE CERVICAL SPINE WITHOUT CONTRAST CLINICAL HISTORY: Fall. COMPARISON STUDY: No previous studies for comparison. TECHNIQUE: Helical axial images of the cervical spine were obtained without IV contrast. Sagittal and coronal reconstructions were viewed. FINDINGS: No acute cervical spine fracture is identified. Craniocervical junction is intact. There is severe multilevel facet arthrosis and moderate multilevel degenerative disc disease. There is no prevertebral edema. There is made of slight reversal of the normal cervical lordosis. There is extensive anterior osteophytosis. IMPRESSION: 1. No acute cervical spine fracture or subluxation. 2. 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 EKG Wide QRS, LBBB ASSESSMENT & PLAN: Assessment and Plan : This is a 86 year old male with a PMH of CKD stage IV, sinus node dysfunction s/ p PPM, COPD, DM2, HTN, HLD - recent hospital admission in August 2016 with volume overload, here with acute kidney injury, Rhabdomyolysis and possible pneumonia. BACTEREMIA (GP B STREP) Likely secondary to CELLULITIS LLE/COMMUNITY ACQUIRED PNEUMONIA Afebrile, No leucocytosis -S/P IV Unasyn. Changed to IV Zosyn/Vancomycin on 10/17 and was already on Levofloxacin. Discontinued Levofloxacin as QTC prolonged and high risk of arrhythmias with his prior cardiac history. Changed back to IV Unasyn on 10/18 as per C/S results. -Lactic acid down from 6 to 1.8-normalized. CELLULITIS OF LEFT LE: Improved Left LE; erythematous, warm to touch on presentation- improving Afebrile -Doppler negative for DVT -Continue with IV Unasyn MAGEN ON CK IV : Slowly improving Baseline around 2.0 and discharged with a creatinine of 2.3 in August 2016. Came with creatinine of 3.1 -Likely secondary to infection, rhabdomyolysis, volume depletion -IVF at 75 cc/hour with 1.5 L fluid restriction. Lasix held. Lisinopril discontinued. -Avoid nephrotoxic agents -Appreciate neurology inputs RHABDOMYOLYSIS: Improving slowly Secondary to prolonged immobilization secondary to fall due to weakness due to combination as above -CPK in on presentation, trending down. Did not present with typical rhabdomyolysis electrolyte abnormalities. -Continue with IVF -Monitor trend ? SYNCOPE : -Likely Multifactorial: Infection/Bacteremia, Volume depletion, MAGEN on CKD IV leading to generalized weakness (severe) to the extent that he was not able to get up from floor. So unclear it it was true syncope vs severe generalized weakness -Work up- CT head/Cervical spine- Negative; Pacemaker interrogation ordered -PT/OT- Likely will need rehab ELEVATED TROPONIN: Troponin elevated 0.420--> down to 0.276 , trending down -Likely related to above- Rhabo, MAGEN, Bacteremia leading to demand ischemia, less likely to be cardiac -EKG- Atrial fibrillation with LBBB, QTC 556- prolonged -Daily EKG for QTC. Discontinued Levofloxacin -Monitor on telemetry ABNORMAL CT SCAN ABDOMEN CT scan abd/pelvis shows multiple findings: 1. Peripancreatic edema with mild thickening of third portion of duodenum, which could be secondary to his cirrhosis. Lipase is negative, clinically no signs of pancreatitis 2. Cirrhosis with small ascites - Mildly elevated LFTs, INR 1.3. Reviewed his outpatient chart, no prior hx of cirrhosis but LFTs- slightly up, INR 1.3, Albumin 2.4. No prior known hx of cirrhosis or alcohol abuse per patient. 3. Possible 2.7 cm hypodense lesion within the right hepatic dome. However, this is difficult to characterize on this noncontrast study. Per patient, has had this in the past 4. Mild thickening of the sigmoid colon which likely represents a nonspecific colitis.- Clinically less likely. Will need to monitor closely and follow up outpatient SINUS NODE DYSFUNCTION S/P PACEMAKER Paroxysmal A fib on EKG with prolonged QTC -Avoid QTC prolonging drugs -Continue with amiodarone BID per cardiology CHRONIC CHF WITH Preserved EF -Lasix held. -IVF cautiously. -Cardiology on board HYPERTENSIVE URGENCY BP was >200/100 on admission, now down -Held antihypertensives including lisinopril -Restarted toprol 12.5 mg PO BID on 10/18/16 per cardiology COPD -No signs of exacerbation -BIPAP overnight -Nebulizers PRN DM2 HA1C = 6.2%, well controlled at home -Increased lantus to 12 units BID and cont. sliding scale DVT ppx DINA + SCDs hx. of MDS and thrombocytopenia DNR DISPOSITION -Continue with tele monitoring -PT/OT -Will need rehab due to profound generalized weakness and as lives alone with no support Vital Signs: Date Time Temp Pulse Resp B/P Pulse Ox O2 Delivery O2 Flow Rate FiO2 10/19/16 08:13 36.9 66 18 96/52 96 10/19/16 08:00 Room Air 10/19/16 06:55 73 18 96 Room Air 10/19/16 04:14 36.7 74 22 97/63 97 CPAP 2.0 10/19/16 04:00 CPAP 2.0 10/19/16 00:00 CPAP 2.0 10/18/16 22:43 36.6 74 22 97/60 98 10/18/16 20:00 Room Air 10/18/16 19:37 36.6 81 18 100/64 95 Room Air 10/18/16 19:24 72 18 96 Room Air 10/18/16 16:00 Room Air 10/18/16 15:37 36.5 93 20 107/67 98 Room Air 10/18/16 14:23 77 18 98 Room Air 10/18/16 12:17 36.6 73 22 88/51 95 Room Air Lab Results: Results Past 24 Hours Test 10/18/16 11:25 10/18/16 16:54 10/18/16 20:09 10/19/16 05:10 Range/Units Bedside Glucose 167 218 195 70-99 mg/dl White Blood Count 3.98 4.8-10.8 K/uL Red Blood Count 2.97 4.7-6.1 M/uL Hemoglobin 8.3 14.0-18.0 g/dL Hematocrit 26.7 42-52 % Mean Corpuscular Volume 89.9 80-100 fL Mean Corpuscular Hemoglobin 27.9 25-34 pg Mean Corpuscular Hemoglobin Concent 31.1 32-36 g/dl RDW Standard Deviation 51.8 36.4-46.3 fL RDW Coefficient of Variation 15.7 11.5-14.5 % Platelet Count 40 130-400 K/uL Mean Platelet Volume 10.4 7.4-10.4 fL Sodium Level 143 136-145 mmol/L Potassium Level 3.6 3.5-5.1 mmol/L Chloride Level 111 98-107 mmol/L Carbon Dioxide Level 23 21-32 mmol/L Anion Gap 9.0 3-11 mmol/L Blood Urea Nitrogen 58 7-18 mg/dl Creatinine 3.10 0.60-1.40 mg/dl Est Creatinine Clear Calc Drug Dose 24.4 ml/min Estimated GFR () 20.0 Estimated GFR (Non- 17.3 BUN/Creatinine Ratio 18.8 10-20 Random Glucose 153 70-99 mg/dl Calcium Level 7.0 8.5-10.1 mg/dl Test 10/19/16 06:51 Range/Units Bedside Glucose 160 70-99 mg/dl Microbiology Results 10/19/16 Blood Culture, Received Pending 10/19/16 Blood Culture, Received Pending
--- NOTE | 2016-10-19 10:34 | Cardiology Follow-Up ---
Subjective General Date of Service: October 19, 2016. Chief Complaint: Elevated troponin Pt evaluation today including: conversation w/ patient, physical exam, chart review, lab review, review of studies, review of inpatient medication list History of Present Illness Patient seen and examined. Feeling better + Dyspnea. + Cough. + Weakness. + Edema. No chest pain. No palpitations. No orthopnea or PND. Telemetry: Atrial fibrillation in the 70's. Intermittent ventricular pacing. Left bundle branch block pattern. Device interrogation on 10/16/2016 demonstrated appropriate function. Estimated remaining longevity was 9 years. Atrial fibrillation/flutter starting on 2016. Rhythm -VS 40.8%, -NAIL PULLER 0.1%, AP-VS 59.1%, and AP-NAIL PULLER <0.1%. September 02, 2016 TTE Interpretation Summary ([facility], Dr. Navarro): The left ventricle is normal in size. There is moderate concentric left ventricular hypertrophy. The patient is s/p septal myomectomy. Echo findings are not consistent with left ventricular outflow obstruction. Septal motion is consistent with conduction abnormality. No regional wall motion abnormalities noted. Ejection Fraction = 55-60%. Aortic valve sclerosis moderate, without significant aortic valvular stenosis. There is mild mitral annular calcification. There is trace mitral regurgitation. Allergies Coded Allergies: Propranolol (Verified Allergy, Unknown, 10/16/16) Codeine (Verified Adverse Reaction, Mild, NOTED "DOESNT TOLERATE WELL" , 10/16/16) Social History Smoking Status: Never Smoker Hx Tobacco Use In Past Year?: No Hx Alcohol Use - Type And Amou: No Hx Substance Use - Type And Am: No Problem List Medical Problems: (1) MAGEN (acute kidney injury) Status: Acute (2) Anasarca Status: Acute (3) Bilateral leg edema Status: Acute (4) CHF (congestive heart failure) Status: Acute (5) Dehydration Status: Acute (6) Dyspnea on exertion Status: Acute (7) Elevated troponin Status: Acute (8) Pulmonary edema Status: Acute (9) Right heart failure Status: Acute Physical Exam Vital Signs Last Vital Signs Documentation Date Time Temp Pulse Resp B/P Pulse Ox O2 Delivery O2 Flow Rate FiO2 10/19/16 08:13 36.9 66 18 96/52 96 10/19/16 08:00 Room Air 10/19/16 04:14 2.0 10/17/16 07:58 30 Physical Exam Constitutional: General Apperance: overweight Level of Distress: acutely ill, chronically ill Psychiatric: Mental Status: active & alert Orientation: to time, to place, to person Memory: recent memory normal, remote memory normal Head: normocephalic, atraumatic Eyes: Pupils: PERRLA Neck: pertinent finding (Normal JVP) Lungs: Respiratory effort: dyspneic Auscultation: no wheezing, deminished air movement, decreased breath sounds , rales/crackles on the left, rales/crackles on the right Cardiovascular: Heart Auscultation: no rubs, tachycardia, II/ SOHAIL, gallop, irregular rate rhythm Peripheral Pulses: Radial Pulse: normal on the left, normal on the right Dorsalis Pedis Pulse: decreased on the left, decreased on the right Abdomen: Bowel Sounds: normal Inspection & Palpation: soft, no masses, distended Extremities: no cyanosis, no clubbing, edema (1+ edema. lyphmedematous changes. 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 History of hypertrophic cardiomyopathy status post myomectomy. RECOMMENDATIONS: Continue Toprol XL and oral amiodarone for now Lisinopril and furosemide on hold. If patient remains in atrial fibrillation rat exterminator would discontinue amiodarone , concurrently titration Toprol XL as needed for rate control CARDIOLOGY ATTENDING ADDENDUM: The patient was seen and personally examined. Agree with Anastacio Montana PA-C's findings and plans as documented above. Laboratory Results Last 24 Hours Test 10/18/16 11:25 10/18/16 16:54 10/18/16 20:09 10/19/16 05:10 Bedside Glucose 167 mg/dl 218 mg/dl 195 mg/dl White Blood Count 3.98 K/uL Red Blood Count 2.97 M/uL Hemoglobin 8.3 g/dL Hematocrit 26.7 % Mean Corpuscular Volume 89.9 fL Mean Corpuscular Hemoglobin 27.9 pg Mean Corpuscular Hemoglobin Concent 31.1 g/dl RDW Standard Deviation 51.8 fL RDW Coefficient of Variation 15.7 % Platelet Count 40 K/uL Mean Platelet Volume 10.4 fL Sodium Level 143 mmol/L Potassium Level 3.6 mmol/L Chloride Level 111 mmol/L Carbon Dioxide Level 23 mmol/L Anion Gap 9.0 mmol/L Blood Urea Nitrogen 58 mg/dl Creatinine 3.10 mg/dl Est Creatinine Clear Calc Drug Dose 24.4 ml/min Estimated GFR () 20.0 Estimated GFR (Non- 17.3 BUN/Creatinine Ratio 18.8 Random Glucose 153 mg/dl Calcium Level 7.0 mg/dl Test 10/19/16 06:51 Bedside Glucose 160 mg/dl
--- NOTE | 2016-10-19 12:32 | Nephrology Progress Note ---
Nephrology Progress Note Date of Service: October 19, 2016. Subjective L hip still bothering him >> ? lump in that area; denies recollection of injuring in fall; still feels breathing labored; no n/v Objective Date Time Temp Pulse Resp B/P Pulse Ox O2 Delivery O2 Flow Rate FiO2 10/19/16 12:12 36.5 80 19 96/60 96 10/19/16 08:13 36.9 66 18 96/52 96 10/19/16 08:00 Room Air 10/19/16 06:55 73 18 96 Room Air 10/19/16 04:14 36.7 74 22 97/63 97 CPAP 2.0 10/19/16 04:00 CPAP 2.0 10/19/16 00:00 CPAP 2.0 10/18/16 22:43 36.6 74 22 97/60 98 10/18/16 20:00 Room Air 10/18/16 19:37 36.6 81 18 100/64 95 Room Air 10/18/16 19:24 72 18 96 Room Air 10/18/16 16:00 Room Air 10/18/16 15:37 36.5 93 20 107/67 98 Room Air 10/18/16 14:23 77 18 98 Room Air 10/18/16 12:17 36.6 73 22 88/51 95 Room Air Physical Exam: General Appearance: WD/WN, no apparent distress, + obese (remains on RA w/ NAD , today less tired) Eyes: EOMI ENT: hearing grossly normal Neck: supple Respiratory/Chest: no respiratory distress, no accessory muscle use (scattered exp wheeze more prominent on R), + decreased breath sounds L, + crackles ( diffuse R>L) Cardiovascular: + tachycardia (in low 90s; distant), occasional premature beat , + pertinent finding (edema 2+ dependent) Abdomen: non tender, soft, no organomegaly (keyes w/ dark yellow urine) Extremities: + calf tenderness (LLE), + pedal edema (2+ LLE); NT ill defined contusion (?) L hip Neurologic/Psych: alert, normal mood/affect, oriented x 3 Skin: no jaundice, warm/dry, no rash but some blisters small L hip and chronic venous stasis changes bl shins Current Inpatient Medications Medications (Trade) Dose Ordered Sig/Gin Route Start Time Stop Time Status Last Admin Dose Admin Acetaminophen (Tylenol Tab) 650 mg Q4H PRN PO 10/16/16 10:45 11/15/16 10:44 10/19/16 04:25 650 MG Al Hydrox/Mg Hydrox/Simethicone (Maalox Max Susp) 15 ml Q4H PRN PO 10/16/16 10:45 11/15/16 10:44 Magnesium Hydroxide (Milk Of Magnesia Susp) 30 ml Q12H PRN PO 10/16/16 10:45 11/15/16 10:44 Ondansetron HCl (Zofran Inj) 4 mg Q6H PRN IV 10/16/16 10:45 11/15/16 10:44 Polyethylene (Miralax Powder Packet) 17 gm DAILY PRN PO 10/16/16 10:45 11/15/16 10:44 Insulin Aspart (novoLOG ASPART) SLIDING SCALE If C... ACHS SC 10/16/16 11:00 11/15/16 10:59 10/19/16 08:59 3 UNITS Glucose (Glucose 40% Gel) 15-30 GRAMS 15 GRAMS... UD PRN PO 10/16/16 10:45 11/15/16 10:44 Glucose (Glucose Chew Tab) 4-8 Tablets 4 Tabl... UD PRN PO 10/16/16 10:45 11/15/16 10:44 Dextrose (Dextrose 50% 50ML Syringe) 25-50ML OF 50% DW IV FOR... UD PRN IV 10/16/16 10:45 11/15/16 10:44 Glucagon (Glucagon Inj) 1 mg UD PRN SQ 10/16/16 10:45 11/15/16 10:44 Levalbuterol (Xopenex 1.25MG/ 0.5ML Neb) 1.25 mg Q6R INH 10/16/16 15:00 11/15/16 14:59 10/19/16 06:55 1.25 MG Atorvastatin Calcium (Lipitor Tab) 20 mg DAILY PO 10/17/16 09:00 11/16/16 08:59 10/19/16 07:39 20 MG Famotidine (Pepcid Tab) 20 mg QPM PO 10/16/16 21:00 11/15/16 20:59 10/18/16 21:45 20 MG Folic Acid (Folvite Tab) 1 mg DAILY PO 10/17/16 09:00 11/16/16 08:59 10/19/16 07:39 1 MG Pantoprazole Sodium (Protonix Tab) 40 mg DAILY PO 10/17/16 09:00 11/16/16 08:59 10/19/16 07:39 40 MG Amiodarone HCl (Cordarone Tab) 200 mg BID PO 10/16/16 21:00 11/15/16 20:59 10/19/16 07:39 200 MG Insulin Glargine 12 unit 12 unit Q12 SC 10/17/16 21:00 11/16/16 20:59 10/19/16 07:42 12 UNIT Sodium Chloride (Nss 1000ml) 1,000 ml @ 75 mls/hr [id number] IV 10/17/16 21:00 11/16/16 20:59 10/19/16 09:00 75 MLS/HR Metoprolol Succinate (Toprol Xl Tab) 12.5 mg BID PO 10/18/16 10:00 11/17/16 09:59 10/19/16 07:41 12.5 MG Ampicillin Sodium/ Sulbactam Sodium 1 ea 1 ea UD PRN N/A 10/18/16 12:30 11/17/16 12:29 Ampicillin Sodium/ Sulbactam Sodium/ Sodium Chloride (Unasyn Inj/Nss 100ml) 108 ml @ 216 mls/hr Q12@0400,1600 IV 10/18/16 16:00 11/01/16 15:59 10/19/16 04:25 216 MLS/HR Last 24 Hours Test 10/18/16 16:54 10/18/16 20:09 10/19/16 05:10 10/19/16 06:51 Bedside Glucose 218 mg/dl 195 mg/dl 160 mg/dl White Blood Count 3.98 K/uL Red Blood Count 2.97 M/uL Hemoglobin 8.3 g/dL Hematocrit 26.7 % Mean Corpuscular Volume 89.9 fL Mean Corpuscular Hemoglobin 27.9 pg Mean Corpuscular Hemoglobin Concent 31.1 g/dl RDW Standard Deviation 51.8 fL RDW Coefficient of Variation 15.7 % Platelet Count 40 K/uL Mean Platelet Volume 10.4 fL Sodium Level 143 mmol/L Potassium Level 3.6 mmol/L Chloride Level 111 mmol/L Carbon Dioxide Level 23 mmol/L Anion Gap 9.0 mmol/L Blood Urea Nitrogen 58 mg/dl Creatinine 3.10 mg/dl Est Creatinine Clear Calc Drug Dose 24.4 ml/min Estimated GFR () 20.0 Estimated GFR (Non- 17.3 BUN/Creatinine Ratio 18.8 Random Glucose 153 mg/dl Calcium Level 7.0 mg/dl Test 10/19/16 11:15 Bedside Glucose 184 mg/dl Date/Time Source Procedure Growth Status 10/19/16 05:25 Blood Blood Culture Pending Received 10/19/16 05:10 Blood Blood Culture Pending Received Assessment & Plan 86 y/o M w/ MAGEN on CKD4, baseline creatinine in 2-2.3 range most recently, chronic LBBB, symptomatic bradycardia s/p pacer, HOCM s/p myectomy, COPD, CARLITA on CPAP, MDS, conservatively managed bladder CA, DM, HL admitted w/ Strep bacteremia, elevated CK after a fall. Presenting creatinine 3.1, peaked shortly after admission at 3.8, trending down to 3.1 today. ?States he feels dyspneic but on RA currently. Also bp has been low. ?new dx of liver cirrhosis this admission and pancreatic cysts MAGEN on CKD4 no longer w/ oliguria, likeliest ATN in setting of rhabdomyolysis, strep bacteremia , PNA; now w/ new dx/finding of liver cirrhosis and peripancreatic edema Rhabdo may be d/t prolonged time on ground as well as bacteremia. Lacking some of the typical electrolyte disorders seen w/ rhabdomyolysis such as hyperkalemia , hypocalcemia, hyperphosphatemia. CK trending down but oliguria concerning. Creatinine likely to worsen before it improves given labile blood pressures, infection in addition to elevated CK which has now normalized -no indication for acute dialysis but cannot rule out need given medical comorbidities, volume overload, poor renal function -both urine specimens obtained yesterday were contaminated; they show possible ATN but no infection. urine not red or brown -d/w pt and daughter > he is willing to try acute dialysis should need arise; not sure about chronic and recognizes may need to make separate/further decision about that; no acute indication at this time -will d/c ivf given vol status -nursing notes he drinks a lot > cont to limit 1.5L fluid limit daily Strep bacteremia -source unclear; f/u pending repeat cx -now on unasyn volume overload and intermittent L hip pain likely multifactorial from renal failure and possibly role for liver here in addition to heart, to pna>>recommend consideration of repeat CXR today and L hip XR given stuttering pain there Appreciate consult; will follow with you. Care coordinated w/ Dr. Brown
--- NOTE | 2016-10-19 13:42 | DIAGNOSTIC IMAGING REPORT ---
LEFT HIP UNILATERAL 2 VIEWS CLINICAL HISTORY: Pain post fall. COMPARISON: CT of the abdomen and pelvis October 17, 2016. FINDINGS: Alignment of left hip is anatomic. There is no acute fracture. Joint space is preserved. There is mild osteophytosis of the left hip. IMPRESSION: 1. No acute fracture or dislocation of the left hip. 2. Mild osteoarthritis of the left hip. Electronically signed by: Williams Goetz M.D. 10/19/2016 1:40 PM Dictated Date/Time: 10/19/2016 1:39 PM
[2016-10-19] MEDS: FAMOTIDINE 20 MG TAB PO SCH (21:23)
[2016-10-20] VITALS (10 sets, daily range): BP systolic 90–109; BP diastolic 56–64; PULSE 60–74; TEMP 36.3–36.6; O2SAT 94–98
[2016-10-20] MEDS: LEVALBUTEROL 1.25MG/0.5ML NEB INH SCH ×2 (01:15→07:01)
[2016-10-20] MEDS: AMPICILLIN/SULBACTAM SOD INJ 3,000 MG in SODIUM CHLORIDE 0.9% 100ML 100 ML IV SCH ×2 (04:16→16:28)
[2016-10-20 07:13] LABS: BUN/CREATININE RATIO 20.3 (10-20); CALCIUM 7.5 mg/dl (8.5-10.1); CREATININE 3.2 mg/dl (0.60-1.40)
[2016-10-20] MEDS: PANTOprazole SOD 40 MG TAB PO SCH (07:38)
[2016-10-20] MEDS: ATORVASTATIN 20 MG TAB PO SCH (07:39)
[2016-10-20] MEDS: AMIODARONE 200 MG TAB PO SCH (07:39)
[2016-10-20] MEDS: METOPROLOL SUCC 25MG EXT REL TAB PO SCH ×2 (07:39→19:59)
[2016-10-20] MEDS: INSULIN ASPART 100 UNITS/ML 3 ML PEN SC SCH ×4 (08:15→20:19)
[2016-10-20] MEDS: INSULIN GLARGINE SOLOSTAR 100 UNITS/ML 3 ML PEN SC SCH ×2 (08:16→20:19)
--- NOTE | 2016-10-20 10:18 | Cardiology Follow-Up ---
Subjective General Date of Service: Oct 20, 2016. Chief Complaint: Elevated troponin Pt evaluation today including: conversation w/ patient, physical exam, chart review, lab review, review of studies, review of inpatient medication list History of Present Illness Patient seen and examined. Feeling better. Improved dyspnea and cough. No chest pain. No palpitations. No orthopnea or PND. Telemetry: Atrial fibrillation in the 70's. Intermittent ventricular pacing. Left bundle branch block pattern. Device interrogation on 10/16/2016 demonstrated appropriate function. Estimated remaining longevity was 9 years. Atrial fibrillation/flutter starting on 2016. Rhythm -VS 40.8%, -FOOD STAND MANAGER 0.1%, AP-VS 59.1%, and AP-FOOD STAND MANAGER <0.1%. September 02, 2016 TTE Interpretation Summary ([facility], Dr. Navarro): The left ventricle is normal in size. There is moderate concentric left ventricular hypertrophy. The patient is s/p septal myomectomy. Echo findings are not consistent with left ventricular outflow obstruction. Septal motion is consistent with conduction abnormality. No regional wall motion abnormalities noted. Ejection Fraction = 55-60%. Aortic valve sclerosis moderate, without significant aortic valvular stenosis. There is mild mitral annular calcification. There is trace mitral regurgitation. Allergies Coded Allergies: Propranolol (Verified Allergy, Unknown, 10/16/16) Codeine (Verified Adverse Reaction, Mild, NOTED "DOESNT TOLERATE WELL" , 10/16/16) Social History Smoking Status: Never Smoker Hx Tobacco Use In Past Year?: No Hx Alcohol Use - Type And Amou: No Hx Substance Use - Type And Am: No Problem List Medical Problems: (1) MAGEN (acute kidney injury) Status: Acute (2) Anasarca Status: Acute (3) Bilateral leg edema Status: Acute (4) CHF (congestive heart failure) Status: Acute (5) Dehydration Status: Acute (6) Dyspnea on exertion Status: Acute (7) Elevated troponin Status: Acute (8) Pulmonary edema Status: Acute (9) Right heart failure Status: Acute Physical Exam Vital Signs Last Vital Signs Documentation Date Time Temp Pulse Resp B/P (MAP) Pulse Ox O2 Delivery O2 Flow Rate FiO2 10/20/16 08:00 Room Air 10/20/16 08:00 36.6 66 20 92/64 (73) 98 10/20/16 01:15 2.0 10/17/16 07:58 30 Physical Exam Constitutional: General Apperance: overweight Level of Distress: acutely ill, chronically ill Psychiatric: Mental Status: active & alert Orientation: to time, to place, to person Memory: recent memory normal, remote memory normal Head: normocephalic, atraumatic Eyes: Pupils: PERRLA Neck: pertinent finding (Normal JVP) Lungs: Respiratory effort: dyspneic Auscultation: no wheezing, deminished air movement, decreased breath sounds , rales/crackles on the left, rales/crackles on the right Cardiovascular: Heart Auscultation: no rubs, tachycardia, II/ SOHAIL, gallop, irregular rate rhythm Peripheral Pulses: Radial Pulse: normal on the left, normal on the right Dorsalis Pedis Pulse: decreased on the left, decreased on the right Abdomen: Bowel Sounds: normal Inspection & Palpation: soft, no masses, distended Extremities: no cyanosis, no clubbing, edema (1+ distal edema. Presacral edema. Lyphmedematous changes. Stasis changes, wounds bilateral shins) Neurologic: Cranial Nerves: grossly intact Assessment and Plan Assessment and Plan Admission following a mechanical fall with prolonged downtime, resultant mild rhabdomyolysis, acute on chronic stage IV renal insufficiency secondary to intravascular volume depletion from sepsis, left lower extremity cellulitis versus community acquired pneumonia Paroxysmal atrial fibrillation Onset 10/16/2016, previously maintaining sinus with low dose amiodarone Contraindications to antiplatelet and anticoagulation therapies ( myelodysplastic disease, thrombocytopenia, bladder carcinoma, high fall risk) Given ongoing asymptomatic atrial fibrillation and liver issues observed on CT will discontinue amiodarone, concurrently increasing Toprol XL for addition rate control. Elevated troponin without evidence of an acute coronary syndrome. 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 History of hypertrophic cardiomyopathy status post myomectomy. RECOMMENDATIONS: Discontinue amiodarone (see above) Increase Toprol XL for additional heart rate control Furosemide on hold. Lisinopril discontinued. CARDIOLOGY ATTENDING ADDENDUM: The patient was seen and personally examined. Agree with Anastacio Montana PA-C's findings and plans as documented above. Laboratory Results Last 24 Hours Test 10/19/16 11:15 10/19/16 16:31 10/19/16 20:18 10/20/16 05:45 Bedside Glucose 184 mg/dl 159 mg/dl 199 mg/dl Sodium Level 144 mmol/L Potassium Level 4.0 mmol/L Chloride Level 111 mmol/L Carbon Dioxide Level 23 mmol/L Anion Gap 10.0 mmol/L Blood Urea Nitrogen 65 mg/dl Creatinine 3.20 mg/dl Est Creatinine Clear Calc Drug Dose 24.1 ml/min Estimated GFR () 19.3 Estimated GFR (Non- 16.6 BUN/Creatinine Ratio 20.3 Random Glucose 138 mg/dl Calcium Level 7.5 mg/dl Total Creatine Kinase 661 U/L
--- NOTE | 2016-10-20 12:08 | Progress Note ---
Internal Med Progress Note Date of Service: Oct 20, 2016. Provider Documentation: SUBJECTIVE: Patient is doing much better today. Ambulated in hallway. Does have cough with sputum + which has been ongoing x 2 weeks, but overall improved. No chest pain, fever, chills, nausea, vomiting, diarrhea, abdominal pain. Tolerating PO. Eager to be discharged OBJECTIVE: Vital Signs-as noted below Exam: General Appearance: no apparent distress, + pertinent finding (+weakness, ) Respiratory/Chest: no respiratory distress, no accessory muscle use Cardiovascular: regular rate, rhythm, no gallop, no JVD, no murmur Abdomen: normal bowel sounds, non tender, soft, Distended Extremities: + pertinent finding (LLE warm to touch, erythematous- improved); Wounds- dried on both LE- shins Lab data as noted below. Diagnostic Radiology CT OF THE HEAD WITHOUT CONTRAST CLINICAL HISTORY: Fall. COMPARISON STUDY: No previous studies for comparison. TECHNIQUE: Helical axial images of the head were obtained without IV contrast. Automated exposure control was utilized for the study. FINDINGS: This exam is mildly compromised by motion artifact. No acute intracranial hemorrhage, midline shift or mass effect is present. Ventricular system is unremarkable for age. Basilar cisterns are patent. There are no extra-axial collections. There is moderate atrophy and mild small vessel disease. There is no calvarial fracture. There is mild mucosal thickening of the sinuses. IMPRESSION: 1. No acute intracranial findings. 2. No calvarial fracture. CHEST ONE VIEW PORTABLE CLINICAL HISTORY: Dyspnea. COMPARISON STUDY: Chest radiograph September 01, 2016. FINDINGS: There is no pneumothorax or pleural effusion. Moderate cardiomegaly is noted. There are median sternotomy wires and a dual lead left pacemaker. This study is compromised by motion artifact. There is pulmonary vasculature congestion. There is minimal left basilar opacity. IMPRESSION: 1. Moderate cardiomegaly. 2. Asymmetric right lung interstitial thickening which favors pulmonary vascular congestion with possible mild pulmonary edema. An infectious process could appear similar. CT OF THE CERVICAL SPINE WITHOUT CONTRAST CLINICAL HISTORY: Fall. COMPARISON STUDY: No previous studies for comparison. TECHNIQUE: Helical axial images of the cervical spine were obtained without IV contrast. Sagittal and coronal reconstructions were viewed. FINDINGS: No acute cervical spine fracture is identified. Craniocervical junction is intact. There is severe multilevel facet arthrosis and moderate multilevel degenerative disc disease. There is no prevertebral edema. There is made of slight reversal of the normal cervical lordosis. There is extensive anterior osteophytosis. IMPRESSION: 1. No acute cervical spine fracture or subluxation. 2. 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 EKG Wide QRS, LBBB ASSESSMENT & PLAN: Assessment and Plan : This is a 86 year old male with a PMH of CKD stage IV, sinus node dysfunction s/ p PPM, COPD, DM2, HTN, HLD - recent hospital admission in August 2016 with volume overload, here with acute kidney injury, Rhabdomyolysis and possible pneumonia. BACTEREMIA (GROUP B STREP) : Likely secondary to CELLULITIS LLE / COMMUNITY ACQUIRED PNEUMONIA Afebrile, No leucocytosis -S/P IV Zosyn/Vancomycin/ Levofloxacin. Discontinued Levofloxacin as QTC prolonged and high risk of arrhythmias with his prior cardiac history. Changed back to IV Unasyn on 10/18 as per C/S results. -Lactic acid down from 6 to 1.8-normalized. -Follow up repeat blood culture collected on 10/18/16 CELLULITIS OF LEFT LE: Improved Left LE; erythematous, warm to touch on presentation- improving Afebrile -Doppler negative for DVT -Continue with IV Unasyn MAGEN ON CK IV : Slowly improving Baseline around 2.0 and discharged with a creatinine of 2.3 in August 2016. Came with creatinine of 3.1 -Likely secondary to infection, rhabdomyolysis, volume depletion -S/P IVF - Lasix held. Lisinopril discontinued. -Avoid nephrotoxic agents. -Appreciate neurology inputs. RHABDOMYOLYSIS: Improving slowly Secondary to prolonged immobilization secondary to fall due to weakness due to combination as above -CPK in 2000s on presentation, trending down-600s. Did not present with typical rhabdomyolysis electrolyte abnormalities. -S/P IVF. Discontinued on 10/18/16 -Monitor trend ? SYNCOPE : -Likely Multifactorial: Infection/Bacteremia, Volume depletion, MAGEN on CKD IV leading to generalized weakness (severe) to the extent that he was not able to get up from floor. So unclear it it was true syncope vs severe generalized weakness -Work up- CT head/Cervical spine- Negative; Pacemaker interrogation ordered -PT/OT- Likely will need rehab ELEVATED TROPONIN: Troponin elevated 0.420--> down to 0.276 , trending down -Likely related to above- Rhabo, MAGEN, Bacteremia leading to demand ischemia, less likely to be cardiac -EKG- Atrial fibrillation with LBBB, QTC 556- prolonged -Daily EKG for QTC. Discontinued Levofloxacin -Monitor on telemetry ABNORMAL CT SCAN ABDOMEN CT scan abd/pelvis shows multiple findings: 1. Peripancreatic edema with mild thickening of third portion of duodenum, which could be secondary to his cirrhosis. Lipase is negative, clinically no signs of pancreatitis 2. Cirrhosis with small ascites - Mildly elevated LFTs, INR 1.3. Reviewed his outpatient chart, no prior hx of cirrhosis but LFTs- slightly up, INR 1.3, Albumin 2.4. No prior known hx of cirrhosis or alcohol abuse per patient. 3. Possible 2.7 cm hypodense lesion within the right hepatic dome. However, this is difficult to characterize on this noncontrast study. Per patient, has had this in the past 4. Mild thickening of the sigmoid colon which likely represents a nonspecific colitis.- Clinically less likely. Will need to monitor closely and follow up outpatient SINUS NODE DYSFUNCTION S/P PACEMAKER Paroxysmal A fib on EKG with prolonged QTC -Avoid QTC prolonging drugs -Amiodarone discontinued by Cardiology as not a good skilled nursing candidate, sudeep with CT results ? cirrhosis -Increased metoprolol to 25 mg PO BID from 12.5 mg PO BID per cardiology. CHRONIC CHF WITH Preserved EF -Lasix held. Eventually will need to restart it. -S/P IVF. -Cardiology on board HYPERTENSIVE URGENCY BP was >200/100 on admission, now down -Held antihypertensives including lisinopril -Restarted toprol 12.5 mg PO BID on 10/18/16 per cardiology and increased to 25 mg PO BID today COPD -No signs of exacerbation -BIPAP overnight -Nebulizers PRN DM2 HA1C = 6.2%, well controlled at home -Increased lantus to 12 units BID and cont. sliding scale DVT ppx DINA + SCDs hx. of MDS and thrombocytopenia DNR DISPOSITION -Ok to transfer to med-surg -PT/OT -Will need rehab due to profound generalized weakness and as lives alone with no support Vital Signs: Date Time Temp Pulse Resp B/P (MAP) Pulse Ox O2 Delivery O2 Flow Rate FiO2 10/20/16 08:00 Room Air 10/20/16 08:00 36.6 66 20 92/64 (73) 98 10/20/16 07:01 70 18 95 Room Air 10/20/16 04:00 Room Air 10/20/16 03:28 36.3 69 22 90/62 (71) 98 103/62 (76) 10/20/16 01:15 73 18 97 BiPAP/CPAP 2.0 10/20/16 00:00 Room Air 10/19/16 23:19 36.5 77 20 104/65 (78) 96 Room Air 10/19/16 21:33 70 115/61 (79) 10/19/16 20:00 36.6 82 18 117/72 (87) 97 Room Air 10/19/16 20:00 Room Air 10/19/16 19:09 63 18 94 Room Air 10/19/16 16:00 Room Air 10/19/16 15:46 36.9 64 16 90/53 (65) 95 10/19/16 14:06 63 18 96 Room Air 10/19/16 12:12 36.5 80 19 96/60 (72) 96 10/19/16 12:00 Room Air Lab Results: Results Past 24 Hours Test 10/19/16 16:31 10/19/16 20:18 10/20/16 05:45 10/20/16 06:59 Range/Units Bedside Glucose 159 199 132 70-99 mg/dl Sodium Level 144 136-145 mmol/L Potassium Level 4.0 3.5-5.1 mmol/L Chloride Level 111 98-107 mmol/L Carbon Dioxide Level 23 21-32 mmol/L Anion Gap 10.0 3-11 mmol/L Blood Urea Nitrogen 65 7-18 mg/dl Creatinine 3.20 0.60-1.40 mg/dl Est Creatinine Clear Calc Drug Dose 24.1 ml/min Estimated GFR () 19.3 Estimated GFR (Non- 16.6 BUN/Creatinine Ratio 20.3 10-20 Random Glucose 138 70-99 mg/dl Calcium Level 7.5 8.5-10.1 mg/dl Total Creatine Kinase 661 39-308 U/L Test 10/20/16 11:38 Range/Units Bedside Glucose 174 70-99 mg/dl
--- NOTE | 2016-10-20 14:23 | Nephrology Progress Note ---
Nephrology Progress Note Date of Service: Oct 20, 2016. Subjective moved out of tele; still quite +; still feels breathing labored; no n/v Objective Date Time Temp Pulse Resp B/P (MAP) Pulse Ox O2 Delivery O2 Flow Rate FiO2 10/20/16 13:49 36.3 68 18 90/59 (69) 95 Room Air 10/20/16 13:14 36.3 73 20 95 10/20/16 12:00 Room Air 10/20/16 11:11 36.3 73 20 90/60 (70) 95 Room Air 10/20/16 08:00 Room Air 10/20/16 08:00 36.6 66 20 92/64 (73) 98 10/20/16 07:01 70 18 95 Room Air 10/20/16 04:00 Room Air 10/20/16 03:28 36.3 69 22 90/62 (71) 98 103/62 (76) 10/20/16 01:15 73 18 97 BiPAP/CPAP 2.0 10/20/16 00:00 Room Air 10/19/16 23:19 36.5 77 20 104/65 (78) 96 Room Air 10/19/16 21:33 70 115/61 (79) 10/19/16 20:00 36.6 82 18 117/72 (87) 97 Room Air 10/19/16 20:00 Room Air 10/19/16 19:09 63 18 94 Room Air 10/19/16 16:00 Room Air 10/19/16 15:46 36.9 64 16 90/53 (65) 95 Physical Exam: General Appearance: WD/WN, no apparent distress but slightly dyspneic, + obese (remains on RA w/ NAD, today less tired; up in chair) Eyes: EOMI ENT: hearing grossly normal Neck: supple Respiratory/Chest: no respiratory distress, no accessory muscle use (scattered exp wheeze more prominent on R), + decreased breath sounds L, + crackles ( diffuse R>L) Cardiovascular: RRR, + pertinent finding (edema 2-3+ dependent) Abdomen: non tender, soft, no organomegaly (keyes w/ yellow urine), distended Extremities: + calf tenderness (LLE), + pedal edema (3+ LLE) Neurologic/Psych: alert, normal mood/affect, oriented x 3 Skin: no jaundice, warm/dry, no rash but some blisters small L hip and chronic venous stasis changes bl shins Current Inpatient Medications Medications (Trade) Dose Ordered Sig/Gin Route Start Time Stop Time Status Last Admin Dose Admin Acetaminophen (Tylenol Tab) 650 mg Q4H PRN PO 10/16/16 10:45 11/15/16 10:44 10/19/16 21:22 650 MG Al Hydrox/Mg Hydrox/Simethicone (Maalox Max Susp) 15 ml Q4H PRN PO 10/16/16 10:45 11/15/16 10:44 Magnesium Hydroxide (Milk Of Magnesia Susp) 30 ml Q12H PRN PO 10/16/16 10:45 11/15/16 10:44 Ondansetron HCl (Zofran Inj) 4 mg Q6H PRN IV 10/16/16 10:45 11/15/16 10:44 Polyethylene (Miralax Powder Packet) 17 gm DAILY PRN PO 10/16/16 10:45 11/15/16 10:44 Insulin Aspart (novoLOG ASPART) SLIDING SCALE If C... ACHS SC 10/16/16 11:00 11/15/16 10:59 10/20/16 13:09 3 UNITS Glucose (Glucose 40% Gel) 15-30 GRAMS 15 GRAMS... UD PRN PO 10/16/16 10:45 11/15/16 10:44 Glucose (Glucose Chew Tab) 4-8 Tablets 4 Tabl... UD PRN PO 10/16/16 10:45 11/15/16 10:44 Dextrose (Dextrose 50% 50ML Syringe) 25-50ML OF 50% DW IV FOR... UD PRN IV 10/16/16 10:45 11/15/16 10:44 Glucagon (Glucagon Inj) 1 mg UD PRN SQ 10/16/16 10:45 11/15/16 10:44 Levalbuterol (Xopenex 1.25MG/ 0.5ML Neb) 1.25 mg Q6R INH 10/16/16 15:00 11/15/16 14:59 10/20/16 07:01 1.25 MG Atorvastatin Calcium (Lipitor Tab) 20 mg DAILY PO 10/17/16 09:00 11/16/16 08:59 10/20/16 07:39 20 MG Famotidine (Pepcid Tab) 20 mg QPM PO 10/16/16 21:00 11/15/16 20:59 10/19/16 21:23 20 MG Folic Acid (Folvite Tab) 1 mg DAILY PO 10/17/16 09:00 11/16/16 08:59 10/20/16 07:38 1 MG Pantoprazole Sodium (Protonix Tab) 40 mg DAILY PO 10/17/16 09:00 11/16/16 08:59 10/20/16 07:38 40 MG Insulin Glargine (Lantus Solostar Pen) 12 unit Q12 SC 10/17/16 21:00 11/16/16 20:59 10/20/16 08:16 12 UNIT Ampicillin Sodium/ Sulbactam Sodium (Consult) 1 ea UD PRN N/A 10/18/16 12:30 11/17/16 12:29 Ampicillin Sodium/ Sulbactam Sodium 3000 mg/Sodium Chloride 108 ml @ 216 mls/hr Q12@0400,1600 IV 10/18/16 16:00 11/01/16 15:59 10/20/16 04:16 216 MLS/HR Metoprolol Succinate (Toprol Xl Tab) 25 mg BID PO 10/20/16 20:00 11/17/16 09:59 Last 24 Hours Test 10/19/16 16:31 10/19/16 20:18 10/20/16 05:45 10/20/16 06:59 Bedside Glucose 159 mg/dl 199 mg/dl 132 mg/dl Sodium Level 144 mmol/L Potassium Level 4.0 mmol/L Chloride Level 111 mmol/L Carbon Dioxide Level 23 mmol/L Anion Gap 10.0 mmol/L Blood Urea Nitrogen 65 mg/dl Creatinine 3.20 mg/dl Est Creatinine Clear Calc Drug Dose 24.1 ml/min Estimated GFR () 19.3 Estimated GFR (Non- 16.6 BUN/Creatinine Ratio 20.3 Random Glucose 138 mg/dl Calcium Level 7.5 mg/dl Total Creatine Kinase 661 U/L Test 10/20/16 11:38 Bedside Glucose 174 mg/dl Assessment & Plan 86 y/o M w/ MAGEN on CKD4, baseline creatinine in 2-2.3 range most recently, chronic LBBB, symptomatic bradycardia s/p pacer, HOCM s/p myectomy, COPD, CARLITA on CPAP, MDS, conservatively managed bladder CA, DM, HL admitted w/ Strep bacteremia, elevated CK after a fall. Presenting creatinine 3.1, peaked shortly after admission at 3.8, trending down to 3.1 today. ?States he feels dyspneic but on RA currently. Also bp has been low. ?new dx of liver cirrhosis this admission and pancreatic cysts MAGEN on CKD4 no longer w/ oliguria, likeliest ATN in setting of rhabdomyolysis, strep bacteremia , PNA; now w/ new dx/finding of liver cirrhosis and peripancreatic edema Rhabdo may be d/t prolonged time on ground as well as bacteremia. Lacking some of the typical electrolyte disorders seen w/ rhabdomyolysis such as hyperkalemia , hypocalcemia, hyperphosphatemia. CK trending down but oliguria concerning. Creatinine likely to worsen before it improves given labile blood pressures, infection in addition to elevated CK which has now normalized -no indication for acute dialysis but cannot rule out need given medical comorbidities, volume overload, poor renal function, liver dz -both urine specimens obtained yesterday were contaminated; they show possible ATN but no infection. urine not red or brown -d/w pt and daughter > he is willing to try acute dialysis should need arise; not sure about chronic and recognizes may need to make separate/further decision about that; no acute indication at this time -will start low dose lasix 10 mg IV tid and order cxr -nursing notes he drinks a lot > tightened fluid limit to 1.2L daily Strep bacteremia -source unclear; f/u pending repeat cx which so far are NGTD -now on unasyn; asked pharmacy to concentrate as much as possible volume overload and intermittent L hip pain likely multifactorial from renal failure and possibly role for liver here in addition to heart, to pna>>recommend consideration of repeat CXR today and L hip XR given stuttering pain there Appreciate consult; will follow with you. Care coordinated w/ Dr. Brown
[2016-10-20] MEDS ORDERED: FUROSEMIDE INJ 10 MG in SYRINGE 0 ML IV ONE (14:45)
--- NOTE | 2016-10-20 14:51 | DIAGNOSTIC IMAGING REPORT ---
CHEST ONE VIEW PORTABLE CLINICAL HISTORY: Dyspnea. COMPARISON STUDY: Chest CT October 17, 2016. FINDINGS: This exam is mildly compromised by artifact. There is a dual lead left subclavian pacemaker and median sternotomy wires. There is marked cardiomegaly. Pulmonary vascularity is normal. No pneumothorax is present. Left basilar opacity favors atelectasis. Right basilar opacity could reflect atelectasis or an infectious process. There is no pneumothorax or pleural effusion. IMPRESSION: 1. Mild right basilar opacity which could reflect atelectasis or an infectious process. 2. Cardiomegaly without evidence of pulmonary edema. Electronically signed by: Williams Goetz M.D. 10/20/2016 2:49 PM Dictated Date/Time: 10/20/2016 2:48 PM
[2016-10-20] MEDS: LEValbuterol HFA 15GM INHALER INH SCH ×2 (17:48→21:59)
[2016-10-20] MEDS: FUROSEMIDE INJ 10 MG in SYRINGE 0 ML IV SCH (19:59)
[2016-10-20] MEDS: ACETAMINOPHEN 325 MG TAB PO PRN (20:02)
[2016-10-20] MEDS: FAMOTIDINE 20 MG TAB PO SCH (21:58)
[2016-10-21 00:15] VITALS: BP 93/59; PULSE 70; TEMP 36.5; O2SAT 97
[2016-10-21] MEDS: AMPICILLIN/SULBACTAM SOD INJ 3,000 MG in SODIUM CHLORIDE 0.9% 100ML 100 ML IV SCH ×2 (04:09→16:30)
[2016-10-21] MEDS: LEValbuterol HFA 15GM INHALER INH SCH ×3 (05:59→17:49)
[2016-10-21 06:36] LABS: MEAN CORPUSCULAR HEMOGLOBIN 28.9 pg (25-34); MEAN CORPUSCULAR HGB CONC 32.1 g/dl (32-36); RED BLOOD COUNT 3.11 M/uL (4.7-6.1); WHITE BLOOD COUNT 5.48 K/uL (4.8-10.8)
[2016-10-21 06:37] LABS: PLATELET COUNT 55 K/uL (130-400)
[2016-10-21 07:05] LABS: BUN/CREATININE RATIO 20.8 (10-20); CALCIUM 7.3 mg/dl (8.5-10.1); CREATININE 3.3 mg/dl (0.60-1.40); POTASSIUM 3.8 mmol/L (3.5-5.1)
[2016-10-21 07:33] VITALS: BP 108/69; PULSE 73; TEMP 36.7; O2SAT 95
[2016-10-21 08:00] VITALS: O2SAT 95
[2016-10-21] MEDS: PANTOprazole SOD 40 MG TAB PO SCH (08:20)
[2016-10-21] MEDS: ATORVASTATIN 20 MG TAB PO SCH (08:20)
[2016-10-21] MEDS: FUROSEMIDE INJ 10 MG in SYRINGE 0 ML IV SCH ×3 (08:20→20:18)
[2016-10-21] MEDS: METOPROLOL SUCC 25MG EXT REL TAB PO SCH ×2 (08:21→20:17)
[2016-10-21] MEDS: INSULIN ASPART 100 UNITS/ML 3 ML PEN SC SCH ×4 (08:37→20:46)
[2016-10-21] MEDS: INSULIN GLARGINE SOLOSTAR 100 UNITS/ML 3 ML PEN SC SCH ×2 (08:38→21:38)
--- NOTE | 2016-10-21 11:55 | Nephrology Progress Note ---
Nephrology Progress Note Date of Service: Oct 21, 2016. Subjective CXR w/ ? R basilar infection or atelectasis; remains on RA; no change in resp status clinically; biggest c/o is sacral pain and ongoing edema; no n/v Objective Date Time Temp Pulse Resp B/P (MAP) Pulse Ox O2 Delivery O2 Flow Rate FiO2 10/21/16 07:33 36.7 73 20 108/69 (82) 95 10/21/16 00:15 36.5 70 18 93/59 (70) 97 Room Air 10/21/16 00:00 Room Air 10/20/16 20:22 69 95/58 (70) 10/20/16 20:00 Room Air 10/20/16 15:48 36.5 74 20 109/56 (73) 94 Room Air 10/20/16 14:15 60 18 94 Room Air 10/20/16 13:49 36.3 68 18 90/59 (69) 95 Room Air 10/20/16 13:14 36.3 73 20 95 10/20/16 12:00 Room Air 10/20/16 11:11 36.3 73 20 90/60 (70) 95 Room Air Physical Exam: General Appearance: WD/WN, no apparent distress but slightly dyspneic, + obese (remains on RA w/ NAD; up in chair) Eyes: EOMI ENT: hearing grossly normal Neck: supple Respiratory/Chest: no respiratory distress, no accessory muscle use , + decreased breath sounds Cardiovascular: RRR, + pertinent finding (edema 2-3+ dependent) Abdomen: non tender, soft, no organomegaly (keyes w/ yellow urine), distended abd Extremities: + calf tenderness (LLE), + pedal edema (3+ LLE) Neurologic/Psych: alert, normal mood/affect, oriented x 3 Skin: no jaundice, warm/dry, no rash but some blisters small L hip and chronic venous stasis changes bl shins Current Inpatient Medications Medications (Trade) Dose Ordered Sig/Gin Route Start Time Stop Time Status Last Admin Dose Admin Acetaminophen (Tylenol Tab) 650 mg Q4H PRN PO 10/16/16 10:45 11/15/16 10:44 10/20/16 20:02 650 MG Al Hydrox/Mg Hydrox/Simethicone (Maalox Max Susp) 15 ml Q4H PRN PO 10/16/16 10:45 11/15/16 10:44 Magnesium Hydroxide (Milk Of Magnesia Susp) 30 ml Q12H PRN PO 10/16/16 10:45 11/15/16 10:44 Ondansetron HCl (Zofran Inj) 4 mg Q6H PRN IV 10/16/16 10:45 11/15/16 10:44 Polyethylene (Miralax Powder Packet) 17 gm DAILY PRN PO 10/16/16 10:45 11/15/16 10:44 Insulin Aspart (novoLOG ASPART) SLIDING SCALE If C... ACHS SC 10/16/16 11:00 11/15/16 10:59 10/20/16 20:19 2 UNITS Glucose (Glucose 40% Gel) 15-30 GRAMS 15 GRAMS... UD PRN PO 10/16/16 10:45 11/15/16 10:44 Glucose (Glucose Chew Tab) 4-8 Tablets 4 Tabl... UD PRN PO 10/16/16 10:45 11/15/16 10:44 Dextrose (Dextrose 50% 50ML Syringe) 25-50ML OF 50% DW IV FOR... UD PRN IV 10/16/16 10:45 11/15/16 10:44 Glucagon (Glucagon Inj) 1 mg UD PRN SQ 10/16/16 10:45 11/15/16 10:44 Levalbuterol (Xopenex 1.25MG/ 0.5ML Neb) 1.25 mg Q6R INH 10/16/16 15:00 11/15/16 14:59 10/20/16 07:01 1.25 MG Atorvastatin Calcium (Lipitor Tab) 20 mg DAILY PO 10/17/16 09:00 11/16/16 08:59 10/20/16 07:39 20 MG Famotidine (Pepcid Tab) 20 mg QPM PO 10/16/16 21:00 11/15/16 20:59 10/20/16 21:58 20 MG Folic Acid (Folvite Tab) 1 mg DAILY PO 10/17/16 09:00 11/16/16 08:59 10/20/16 07:38 1 MG Pantoprazole Sodium (Protonix Tab) 40 mg DAILY PO 10/17/16 09:00 11/16/16 08:59 10/20/16 07:38 40 MG Insulin Glargine (Lantus Solostar Pen) 12 unit Q12 SC 10/17/16 21:00 11/16/16 20:59 10/20/16 20:19 12 UNIT Ampicillin Sodium/ Sulbactam Sodium (Consult) 1 ea UD PRN N/A 10/18/16 12:30 11/17/16 12:29 Ampicillin Sodium/ Sulbactam Sodium 3000 mg/Sodium Chloride 108 ml @ 216 mls/hr Q12@0400,1600 IV 10/18/16 16:00 11/01/16 15:59 10/21/16 04:09 216 MLS/HR Metoprolol Succinate (Toprol Xl Tab) 25 mg BID PO 10/20/16 20:00 11/17/16 09:59 Furosemide 10 mg/ Syringe 1 ml @ 4 mls/min TID IV 10/20/16 20:00 11/19/16 19:59 10/20/16 19:59 4 MLS/MIN Levalbuterol (Xopenex Hfa Inhaler) 2 puffs Q6 INH 10/20/16 18:00 11/19/16 17:59 10/21/16 05:59 2 PUFFS Last 24 Hours Test 10/20/16 11:38 10/20/16 16:54 10/20/16 19:55 10/21/16 06:21 Bedside Glucose 174 mg/dl 168 mg/dl 217 mg/dl White Blood Count 5.48 K/uL Red Blood Count 3.11 M/uL Hemoglobin 9.0 g/dL Hematocrit 28.0 % Mean Corpuscular Volume 90.0 fL Mean Corpuscular Hemoglobin 28.9 pg Mean Corpuscular Hemoglobin Concent 32.1 g/dl RDW Standard Deviation 51.9 fL RDW Coefficient of Variation 15.8 % Platelet Count 55 K/uL Mean Platelet Volume 10.0 fL Sodium Level 145 mmol/L Potassium Level 3.8 mmol/L Chloride Level 113 mmol/L Carbon Dioxide Level 23 mmol/L Anion Gap 9.0 mmol/L Blood Urea Nitrogen 69 mg/dl Creatinine 3.30 mg/dl Est Creatinine Clear Calc Drug Dose 23.3 ml/min Estimated GFR () 18.6 Estimated GFR (Non- 16.0 BUN/Creatinine Ratio 20.8 Random Glucose 117 mg/dl Calcium Level 7.3 mg/dl Assessment & Plan 86 y/o M w/ MAGEN on CKD4, baseline creatinine in 2-2.3 range most recently prior to admission, chronic LBBB, PAF, symptomatic bradycardia s/p pacer, HOCM s/p myectomy, COPD, CARLITA on CPAP, MDS, conservatively managed bladder CA, DM, HL, liver cirrhosis ( ? cause) admitted w/ Strep bacteremia, elevated CK after a fall. Presenting creatinine 3.1, peaked shortly after admission at 3.8, trended down to plateau in low 3s. on RA currently. Also bp has been low. ? new dx of liver cirrhosis this admission and pancreatic cysts MAGEN on CKD4 no longer w/ oliguria, ATN in setting of rhabdomyolysis, strep bacteremia , PNA; now w/ new dx/finding of liver cirrhosis and peripancreatic edema Rhabdo may be d/t prolonged time on ground as well as bacteremia. Lacking some of the typical electrolyte disorders seen w/ rhabdomyolysis such as hyperkalemia , hypocalcemia, hyperphosphatemia. CK trending down but oliguria concerning. Creatinine likely to worsen before it improves given labile blood pressures, infection in addition to elevated CK which has now normalized -no indication for acute dialysis but cannot rule out need given medical comorbidities, volume overload, poor renal function, liver dz -d/w pt and daughter > he is willing to try acute dialysis should need arise; not sure about chronic and recognizes may need to make separate/further decision about that; no acute indication at this time -cont low dose lasix 10 mg IV tid w/ hold parameters -cont tightened fluid limit to 1.2L daily; rationale d/w pt -cont daily bmp, cbc Strep bacteremia -source unclear; f/u pending repeat cx which so far remain NGTD -now on unasyn; asked pharmacy to concentrate as much as possible volume overload -cxr yesterday reassuring likely multifactorial from renal failure and possibly role for liver here in addition to heart, to pna PAF/ HOCM -on BB >> need for rate control noted Appreciate consult; will follow with you.
--- NOTE | 2016-10-21 12:53 | Progress Note ---
Internal Med Progress Note Date of Service: Oct 21, 2016. Provider Documentation: SUBJECTIVE: Patient is doing better. Ambulated in hallway. Does have cough with sputum + which has been ongoing x 2 weeks, but overall improved. No chest pain, fever, chills, nausea, vomiting, diarrhea, abdominal pain. Tolerating PO. Eager to be discharged OBJECTIVE: Vital Signs-as noted below Exam: General Appearance: no apparent distress, + pertinent finding (+weakness, ) Respiratory/Chest: no respiratory distress, no accessory muscle use Cardiovascular: regular rate, rhythm, no gallop, no JVD, no murmur Abdomen: normal bowel sounds, non tender, soft, Distended Extremities: + pertinent finding (LLE warm to touch, erythematous- improved); Wounds- dried on both LE- shins Lab data as noted below. Diagnostic Radiology CT OF THE HEAD WITHOUT CONTRAST CLINICAL HISTORY: Fall. COMPARISON STUDY: No previous studies for comparison. TECHNIQUE: Helical axial images of the head were obtained without IV contrast. Automated exposure control was utilized for the study. FINDINGS: This exam is mildly compromised by motion artifact. No acute intracranial hemorrhage, midline shift or mass effect is present. Ventricular system is unremarkable for age. Basilar cisterns are patent. There are no extra-axial collections. There is moderate atrophy and mild small vessel disease. There is no calvarial fracture. There is mild mucosal thickening of the sinuses. IMPRESSION: 1. No acute intracranial findings. 2. No calvarial fracture. CHEST ONE VIEW PORTABLE CLINICAL HISTORY: Dyspnea. COMPARISON STUDY: Chest radiograph September 01, 2016. FINDINGS: There is no pneumothorax or pleural effusion. Moderate cardiomegaly is noted. There are median sternotomy wires and a dual lead left pacemaker. This study is compromised by motion artifact. There is pulmonary vasculature congestion. There is minimal left basilar opacity. IMPRESSION: 1. Moderate cardiomegaly. 2. Asymmetric right lung interstitial thickening which favors pulmonary vascular congestion with possible mild pulmonary edema. An infectious process could appear similar. CT OF THE CERVICAL SPINE WITHOUT CONTRAST CLINICAL HISTORY: Fall. COMPARISON STUDY: No previous studies for comparison. TECHNIQUE: Helical axial images of the cervical spine were obtained without IV contrast. Sagittal and coronal reconstructions were viewed. FINDINGS: No acute cervical spine fracture is identified. Craniocervical junction is intact. There is severe multilevel facet arthrosis and moderate multilevel degenerative disc disease. There is no prevertebral edema. There is made of slight reversal of the normal cervical lordosis. There is extensive anterior osteophytosis. IMPRESSION: 1. No acute cervical spine fracture or subluxation. 2. 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 EKG Wide QRS, LBBB ASSESSMENT & PLAN: Assessment and Plan : This is a 86 year old male with a PMH of CKD stage IV, sinus node dysfunction s/ p PPM, COPD, DM2, HTN, HLD - recent hospital admission in August 2016 with volume overload, here with acute kidney injury, Rhabdomyolysis and possible pneumonia. BACTEREMIA (GROUP B STREP) : Likely secondary to CELLULITIS LLE / COMMUNITY ACQUIRED PNEUMONIA Afebrile, No leucocytosis -S/P IV Zosyn/Vancomycin/ Levofloxacin. Discontinued Levofloxacin as QTC prolonged and high risk of arrhythmias with his prior cardiac history. Changed back to IV Unasyn on 10/18 as per C/S results. Day 4 of antibiotics -Lactic acid down from 6 to 1.8-normalized. -Follow up repeat blood culture collected on 10/18/16- Negative CELLULITIS OF LEFT LE: Improved Left LE; erythematous, warm to touch on presentation- improving Afebrile -Doppler negative for DVT -Continue with IV Unasyn for total of 10 days MAGEN ON CK IV : Baseline around 2.0 and discharged with a creatinine of 2.3 in August 2016. Came with creatinine of 3.1 -Likely secondary to infection, rhabdomyolysis, volume depletion -S/P IVF - Lasix initially held and restarted on 10/20/16 at 10 mg TID. Lisinopril discontinued. -Avoid nephrotoxic agents. -Appreciate neurology inputs. RHABDOMYOLYSIS: Improving slowly Secondary to prolonged immobilization secondary to fall due to weakness due to combination as above -CPK in 2000s on presentation, trending down-600s. Did not present with typical rhabdomyolysis electrolyte abnormalities. -S/P IVF. Discontinued on 10/18/16. Lasix restarted -Monitor trend ? SYNCOPE : -Likely Multifactorial: Infection/Bacteremia, Volume depletion, MAGEN on CKD IV leading to generalized weakness (severe) to the extent that he was not able to get up from floor. So unclear it it was true syncope vs severe generalized weakness -Work up- CT head/Cervical spine- Negative; Pacemaker interrogation ordered -PT/OT- Likely will need rehab ELEVATED TROPONIN: Troponin elevated 0.420--> down to 0.276 , trending down -Likely related to above- Rhabo, MAGEN, Bacteremia leading to demand ischemia, less likely to be cardiac -EKG- Atrial fibrillation with LBBB, QTC 556- prolonged -Discontinued Levofloxacin ABNORMAL CT SCAN ABDOMEN CT scan abd/pelvis shows multiple findings: 1. Peripancreatic edema with mild thickening of third portion of duodenum, which could be secondary to his cirrhosis. Lipase is negative, clinically no signs of pancreatitis 2. Cirrhosis with small ascites - Mildly elevated LFTs, INR 1.3. Reviewed his outpatient chart, no prior hx of cirrhosis but LFTs- slightly up, INR 1.3, Albumin 2.4. No prior known hx of cirrhosis or alcohol abuse per patient. 3. Possible 2.7 cm hypodense lesion within the right hepatic dome. However, this is difficult to characterize on this noncontrast study. Per patient, has had this in the past 4. Mild thickening of the sigmoid colon which likely represents a nonspecific colitis.- Clinically less likely. Will need to monitor closely and follow up outpatient SINUS NODE DYSFUNCTION S/P PACEMAKER Paroxysmal A fib on EKG with prolonged QTC -Avoid QTC prolonging drugs -Amiodarone discontinued by Cardiology as not a good usp candidate, sudeep with CT results ? cirrhosis -Increased metoprolol to 25 mg PO BID from 12.5 mg PO BID per cardiology. CHRONIC CHF WITH Preserved EF -Lasix held. Eventually will need to restart it. -S/P IVF. Lasix restarted as above -Cardiology on board. HYPERTENSIVE URGENCY - BP improved BP was >200/100 on admission, now down -Held antihypertensives including lisinopril -Restarted toprol 12.5 mg PO BID on 10/18/16 per cardiology and increased to 25 mg PO BID on 10/20/16 COPD -No signs of exacerbation -BIPAP overnight -Nebulizers PRN DM2 HA1C = 6.2%, well controlled at home -Increased lantus to 12 units BID and cont. sliding scale DVT ppx DINA + SCDs hx. of MDS and thrombocytopenia DNR DISPOSITION -PT/OT -Will need rehab due to profound generalized weakness and as lives alone with no support -Likely in 1-2 days Vital Signs: Date Time Temp Pulse Resp B/P (MAP) Pulse Ox O2 Delivery O2 Flow Rate FiO2 10/21/16 08:00 95 Room Air 10/21/16 07:33 36.7 73 20 108/69 (82) 95 10/21/16 00:15 36.5 70 18 93/59 (70) 97 Room Air 10/21/16 00:00 Room Air 10/20/16 20:22 69 95/58 (70) 10/20/16 20:00 Room Air 10/20/16 15:48 36.5 74 20 109/56 (73) 94 Room Air 10/20/16 14:15 60 18 94 Room Air 10/20/16 13:49 36.3 68 18 90/59 (69) 95 Room Air 10/20/16 13:14 36.3 73 20 95 Lab Results: Results Past 24 Hours Test 10/20/16 16:54 10/20/16 19:55 10/21/16 06:21 10/21/16 07:19 Range/Units Bedside Glucose 168 217 123 70-99 mg/dl White Blood Count 5.48 4.8-10.8 K/uL Red Blood Count 3.11 4.7-6.1 M/uL Hemoglobin 9.0 14.0-18.0 g/dL Hematocrit 28.0 42-52 % Mean Corpuscular Volume 90.0 80-100 fL Mean Corpuscular Hemoglobin 28.9 25-34 pg Mean Corpuscular Hemoglobin Concent 32.1 32-36 g/dl RDW Standard Deviation 51.9 36.4-46.3 fL RDW Coefficient of Variation 15.8 11.5-14.5 % Platelet Count 55 130-400 K/uL Mean Platelet Volume 10.0 7.4-10.4 fL Sodium Level 145 136-145 mmol/L Potassium Level 3.8 3.5-5.1 mmol/L Chloride Level 113 98-107 mmol/L Carbon Dioxide Level 23 21-32 mmol/L Anion Gap 9.0 3-11 mmol/L Blood Urea Nitrogen 69 7-18 mg/dl Creatinine 3.30 0.60-1.40 mg/dl Est Creatinine Clear Calc Drug Dose 23.3 ml/min Estimated GFR () 18.6 Estimated GFR (Non- 16.0 BUN/Creatinine Ratio 20.8 10-20 Random Glucose 117 70-99 mg/dl Calcium Level 7.3 8.5-10.1 mg/dl Test 10/21/16 11:09 Range/Units Bedside Glucose 180 70-99 mg/dl
[2016-10-21 14:36] VITALS: BP 100/63; PULSE 63; TEMP 36.3; O2SAT 96
[2016-10-21 20:15] VITALS: BP 105/47; PULSE 67
[2016-10-21] MEDS: FAMOTIDINE 20 MG TAB PO SCH (20:17)
[2016-10-21 23:01] VITALS: BP 91/50; PULSE 65; TEMP 36.4; O2SAT 97
[2016-10-22] MEDS: AMPICILLIN/SULBACTAM SOD INJ 3,000 MG in SODIUM CHLORIDE 0.9% 100ML 100 ML IV SCH (03:46)
[2016-10-22] MEDS: LEValbuterol HFA 15GM INHALER INH SCH ×4 (05:46→19:05)
[2016-10-22 06:54] LABS: HEMATOCRIT 28.1 % (42-52); MEAN CELL VOLUME 90.4 fL (80-100); MEAN CORPUSCULAR HEMOGLOBIN 28.9 pg (25-34); RED BLOOD COUNT 3.11 M/uL (4.7-6.1); WHITE BLOOD COUNT 4.39 K/uL (4.8-10.8)
[2016-10-22 06:58] LABS: MEAN PLATELET VOLUME 9.7 fL (7.4-10.4); PLATELET COUNT 65 K/uL (130-400)
[2016-10-22 07:34] LABS: BUN/CREATININE RATIO 22.2 (10-20); CALCIUM 7.4 mg/dl (8.5-10.1); CREATININE 3.2 mg/dl (0.60-1.40); POTASSIUM 3.6 mmol/L (3.5-5.1)
[2016-10-22 07:47] VITALS: BP 99/54; PULSE 69; TEMP 36.6; O2SAT 100
[2016-10-22 08:00] VITALS: O2SAT 100
[2016-10-22] MEDS: METOPROLOL SUCC 25MG EXT REL TAB PO SCH ×2 (08:00→20:00)
[2016-10-22] MEDS: PANTOprazole SOD 40 MG TAB PO SCH (08:29)
[2016-10-22] MEDS: ATORVASTATIN 20 MG TAB PO SCH (08:29)
[2016-10-22] MEDS: FUROSEMIDE INJ 10 MG in SYRINGE 0 ML IV SCH ×3 (08:29→20:47)
[2016-10-22] MEDS: INSULIN ASPART 100 UNITS/ML 3 ML PEN SC SCH ×4 (09:14→21:02)
[2016-10-22] MEDS: INSULIN GLARGINE SOLOSTAR 100 UNITS/ML 3 ML PEN SC SCH ×2 (09:14→21:01)
[2016-10-22] MEDS ORDERED: NURSING VERBAL MED ORDER ONE (09:15)
--- NOTE | 2016-10-22 15:01 | Progress Note ---
Internal Med Progress Note Date of Service: Oct 22, 2016. Provider Documentation: SUBJECTIVE: Patient is doing better. Ambulated in hallway. Does have cough with sputum + which has been ongoing x 2 weeks, but overall improved. No chest pain, fever, chills, nausea, vomiting, diarrhea, abdominal pain. Tolerating PO. Eager to be discharged. OBJECTIVE: Vital Signs-as noted below Exam: General Appearance: no apparent distress, + pertinent finding (+weakness, ) Respiratory/Chest: no respiratory distress, no accessory muscle use Cardiovascular: regular rate, rhythm, no gallop, no JVD, no murmur Abdomen: normal bowel sounds, non tender, soft, Distended Extremities: + pertinent finding (LLE warm to touch, erythematous- improved); Wounds- dried on both LE- shins Lab data as noted below. Diagnostic Radiology CT OF THE HEAD WITHOUT CONTRAST CLINICAL HISTORY: Fall. COMPARISON STUDY: No previous studies for comparison. TECHNIQUE: Helical axial images of the head were obtained without IV contrast. Automated exposure control was utilized for the study. FINDINGS: This exam is mildly compromised by motion artifact. No acute intracranial hemorrhage, midline shift or mass effect is present. Ventricular system is unremarkable for age. Basilar cisterns are patent. There are no extra-axial collections. There is moderate atrophy and mild small vessel disease. There is no calvarial fracture. There is mild mucosal thickening of the sinuses. IMPRESSION: 1. No acute intracranial findings. 2. No calvarial fracture. CHEST ONE VIEW PORTABLE CLINICAL HISTORY: Dyspnea. COMPARISON STUDY: Chest radiograph September 01, 2016. FINDINGS: There is no pneumothorax or pleural effusion. Moderate cardiomegaly is noted. There are median sternotomy wires and a dual lead left pacemaker. This study is compromised by motion artifact. There is pulmonary vasculature congestion. There is minimal left basilar opacity. IMPRESSION: 1. Moderate cardiomegaly. 2. Asymmetric right lung interstitial thickening which favors pulmonary vascular congestion with possible mild pulmonary edema. An infectious process could appear similar. CT OF THE CERVICAL SPINE WITHOUT CONTRAST CLINICAL HISTORY: Fall. COMPARISON STUDY: No previous studies for comparison. TECHNIQUE: Helical axial images of the cervical spine were obtained without IV contrast. Sagittal and coronal reconstructions were viewed. FINDINGS: No acute cervical spine fracture is identified. Craniocervical junction is intact. There is severe multilevel facet arthrosis and moderate multilevel degenerative disc disease. There is no prevertebral edema. There is made of slight reversal of the normal cervical lordosis. There is extensive anterior osteophytosis. IMPRESSION: 1. No acute cervical spine fracture or subluxation. 2. 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 EKG Wide QRS, LBBB ASSESSMENT & PLAN: Assessment and Plan : This is a 86 year old male with a PMH of CKD stage IV, sinus node dysfunction s/ p PPM, COPD, DM2, HTN, HLD - recent hospital admission in August 2016 with volume overload, here with acute kidney injury, Rhabdomyolysis and possible pneumonia. BACTEREMIA (GROUP B STREP) : Likely secondary to CELLULITIS LLE / COMMUNITY ACQUIRED PNEUMONIA Afebrile, No leucocytosis -S/P IV Zosyn/Vancomycin/ Levofloxacin. Discontinued Levofloxacin as QTC prolonged and high risk of arrhythmias with his prior cardiac history. Changed back to IV Unasyn on 10/18 as per C/S results. Day 5 of antibiotics -Lactic acid down from 6 to 1.8-normalized. -Follow up repeat blood culture collected on 10/18/16- Negative CELLULITIS OF LEFT LE: Improved Left LE; erythematous, warm to touch on presentation- improving Afebrile -Doppler negative for DVT -Continue with IV Unasyn for total of 10 days MAGEN ON CK IV : Baseline around 2.0 and discharged with a creatinine of 2.3 in August 2016. Came with creatinine of 3.1 -Likely secondary to infection, rhabdomyolysis, volume depletion -S/P IVF - Lasix initially held and restarted on 10/20/16 at 10 mg IV TID. Lisinopril discontinued. -Avoid nephrotoxic agents. -Appreciate neurology inputs. RHABDOMYOLYSIS: Improved Secondary to prolonged immobilization secondary to fall due to weakness due to combination as above -CPK in 2000s on presentation, trending down-600s. Did not present with typical rhabdomyolysis electrolyte abnormalities. -S/P IVF. Discontinued on 10/18/16. Lasix restarted ? SYNCOPE : -Likely Multifactorial: Infection/Bacteremia, Volume depletion, MAGEN on CKD IV leading to generalized weakness (severe) to the extent that he was not able to get up from floor. So unclear it it was true syncope vs severe generalized weakness -Work up- CT head/Cervical spine- Negative; Pacemaker interrogation ordered -PT/OT- Likely will need rehab ELEVATED TROPONIN: Troponin elevated 0.420--> down to 0.276 , trending down -Likely related to above- Rhabo, MAGEN, Bacteremia leading to demand ischemia, less likely to be cardiac -EKG- Atrial fibrillation with LBBB, QTC 556- prolonged -Discontinued Levofloxacin ABNORMAL CT SCAN ABDOMEN CT scan abd/pelvis shows multiple findings: 1. Peripancreatic edema with mild thickening of third portion of duodenum, which could be secondary to his cirrhosis. Lipase is negative, clinically no signs of pancreatitis 2. Cirrhosis with small ascites - Mildly elevated LFTs, INR 1.3. Reviewed his outpatient chart, no prior hx of cirrhosis but LFTs- slightly up, INR 1.3, Albumin 2.4. No prior known hx of cirrhosis or alcohol abuse per patient. 3. Possible 2.7 cm hypodense lesion within the right hepatic dome. However, this is difficult to characterize on this noncontrast study. Per patient, has had this in the past 4. Mild thickening of the sigmoid colon which likely represents a nonspecific colitis.- Clinically less likely. Will need to monitor closely and follow up outpatient SINUS NODE DYSFUNCTION S/P PACEMAKER Paroxysmal A fib on EKG with prolonged QTC -Avoid QTC prolonging drugs -Amiodarone discontinued by Cardiology as not a good senior care candidate, sudeep with CT results ? cirrhosis -Increased metoprolol to 25 mg PO BID from 12.5 mg PO BID on 10/20/16 per cardiology. CHRONIC CHF WITH Preserved EF -Lasix held. Eventually will need to restart it. -S/P IVF. Lasix restarted as above- IV 10 mg TID -Cardiology on board. HYPERTENSIVE URGENCY - BP improved BP was >200/100 on admission, now down -Held antihypertensives including lisinopril -Restarted toprol 12.5 mg PO BID on 10/18/16 per cardiology and increased to 25 mg PO BID on 10/20/16 COPD -No signs of exacerbation -BIPAP overnight -Nebulizers PRN DM2 HA1C = 6.2%, well controlled at home -Increased lantus to 12 units BID and cont. sliding scale DVT ppx DINA + SCDs hx. of MDS and thrombocytopenia DNR DISPOSITION -PT/OT -Will need rehab due to profound generalized weakness and as lives alone with no support -Likely in 1-2 days Vital Signs: Date Time Temp Pulse Resp B/P (MAP) Pulse Ox O2 Delivery O2 Flow Rate FiO2 10/22/16 08:00 100 CPAP 10/22/16 07:47 36.6 69 20 99/54 (69) 100 BiPAP 10/22/16 00:00 Room Air 10/21/16 23:01 36.4 65 16 91/50 (64) 97 BiPAP 10/21/16 20:15 67 105/47 (66) 10/21/16 16:00 Room Air Lab Results: Results Past 24 Hours Test 10/21/16 16:36 10/21/16 20:24 10/22/16 06:47 10/22/16 08:07 Range/Units Bedside Glucose 207 117 129 70-99 mg/dl White Blood Count 4.39 4.8-10.8 K/uL Red Blood Count 3.11 4.7-6.1 M/uL Hemoglobin 9.0 14.0-18.0 g/dL Hematocrit 28.1 42-52 % Mean Corpuscular Volume 90.4 80-100 fL Mean Corpuscular Hemoglobin 28.9 25-34 pg Mean Corpuscular Hemoglobin Concent 32.0 32-36 g/dl RDW Standard Deviation 52.1 36.4-46.3 fL RDW Coefficient of Variation 15.8 11.5-14.5 % Platelet Count 65 130-400 K/uL Mean Platelet Volume 9.7 7.4-10.4 fL Sodium Level 147 136-145 mmol/L Potassium Level 3.6 3.5-5.1 mmol/L Chloride Level 114 98-107 mmol/L Carbon Dioxide Level 23 21-32 mmol/L Anion Gap 10.0 3-11 mmol/L Blood Urea Nitrogen 71 7-18 mg/dl Creatinine 3.20 0.60-1.40 mg/dl Est Creatinine Clear Calc Drug Dose 24.1 ml/min Estimated GFR () 19.3 Estimated GFR (Non- 16.6 BUN/Creatinine Ratio 22.2 10-20 Random Glucose 136 70-99 mg/dl Calcium Level 7.4 8.5-10.1 mg/dl Test 10/22/16 11:44 Range/Units Bedside Glucose 212 70-99 mg/dl
[2016-10-22 15:03] VITALS: BP 95/61; PULSE 64; TEMP 36.6; O2SAT 93
[2016-10-22 16:00] VITALS: O2SAT 93
[2016-10-22] MEDS: AMOXICILLIN/CLAVULANATE TAB 500 MG TAB PO SCH (19:04)
[2016-10-22 20:47] VITALS: BP 95/45
[2016-10-22] MEDS: FAMOTIDINE 20 MG TAB PO SCH (20:49)
[2016-10-22 23:10] VITALS: BP 95/54; PULSE 77; TEMP 36.7; O2SAT 97
[2016-10-23] VITALS (8 sets, daily range): BP systolic 92–117; BP diastolic 49–74; PULSE 52–74; TEMP 36.4–36.6; O2SAT 94–98
[2016-10-23] MEDS: LEValbuterol HFA 15GM INHALER INH SCH ×4 (06:02→18:18)
[2016-10-23] MEDS: METOPROLOL SUCC 25MG EXT REL TAB PO SCH ×2 (08:00→20:25)
[2016-10-23] MEDS: PANTOprazole SOD 40 MG TAB PO SCH (08:38)
[2016-10-23] MEDS: ATORVASTATIN 20 MG TAB PO SCH (08:38)
[2016-10-23] MEDS: FUROSEMIDE INJ 10 MG in SYRINGE 0 ML IV SCH ×2 (08:38→13:24)
[2016-10-23] MEDS: AMOXICILLIN/CLAVULANATE TAB 500 MG TAB PO SCH ×2 (08:39→17:32)
[2016-10-23] MEDS: INSULIN ASPART 100 UNITS/ML 3 ML PEN SC SCH ×4 (09:24→20:37)
[2016-10-23] MEDS: INSULIN GLARGINE SOLOSTAR 100 UNITS/ML 3 ML PEN SC SCH ×2 (09:26→20:37)
[2016-10-23 11:55] LABS: HEMATOCRIT 30.7 % (42-52); MEAN CELL VOLUME 89.8 fL (80-100); MEAN CORPUSCULAR HEMOGLOBIN 27.8 pg (25-34); MEAN CORPUSCULAR HGB CONC 30.9 g/dl (32-36); RED BLOOD COUNT 3.42 M/uL (4.7-6.1)
[2016-10-23 12:03] LABS: MEAN PLATELET VOLUME 9.8 fL (7.4-10.4); PLATELET COUNT 87 K/uL (130-400)
[2016-10-23 12:18] LABS: BUN/CREATININE RATIO 23.4 (10-20); CALCIUM 7.4 mg/dl (8.5-10.1); CREATININE 3.1 mg/dl (0.60-1.40); POTASSIUM 3.5 mmol/L (3.5-5.1)
[2016-10-23 12:20] LABS: ALB/GLOB RATIO 0.5 (0.9-2)
--- NOTE | 2016-10-23 13:16 | Progress Note ---
Internal Med Progress Note Date of Service: Oct 23, 2016. Provider Documentation: SUBJECTIVE: Patient is c/o sore mouth Does have cough with sputum + which has been ongoing x 2 weeks, but overall improved. No chest pain, fever, chills, nausea, vomiting, diarrhea, abdominal pain. Tolerating PO. Eager to be discharged. OBJECTIVE: Vital Signs-as noted below Exam: General Appearance: no apparent distress, + pertinent finding (+weakness, ) HEENT- Oral thrush Respiratory/Chest: no respiratory distress, no accessory muscle use Cardiovascular: regular rate, rhythm, no gallop, no JVD, no murmur Abdomen: normal bowel sounds, non tender, soft, Distended Extremities: + pertinent finding (LLE warm to touch, erythematous- improved); Wounds- dried on both LE- shins Lab data as noted below. Diagnostic Radiology CT OF THE HEAD WITHOUT CONTRAST CLINICAL HISTORY: Fall. COMPARISON STUDY: No previous studies for comparison. TECHNIQUE: Helical axial images of the head were obtained without IV contrast. Automated exposure control was utilized for the study. FINDINGS: This exam is mildly compromised by motion artifact. No acute intracranial hemorrhage, midline shift or mass effect is present. Ventricular system is unremarkable for age. Basilar cisterns are patent. There are no extra-axial collections. There is moderate atrophy and mild small vessel disease. There is no calvarial fracture. There is mild mucosal thickening of the sinuses. IMPRESSION: 1. No acute intracranial findings. 2. No calvarial fracture. CHEST ONE VIEW PORTABLE CLINICAL HISTORY: Dyspnea. COMPARISON STUDY: Chest radiograph September 01, 2016. FINDINGS: There is no pneumothorax or pleural effusion. Moderate cardiomegaly is noted. There are median sternotomy wires and a dual lead left pacemaker. This study is compromised by motion artifact. There is pulmonary vasculature congestion. There is minimal left basilar opacity. IMPRESSION: 1. Moderate cardiomegaly. 2. Asymmetric right lung interstitial thickening which favors pulmonary vascular congestion with possible mild pulmonary edema. An infectious process could appear similar. CT OF THE CERVICAL SPINE WITHOUT CONTRAST CLINICAL HISTORY: Fall. COMPARISON STUDY: No previous studies for comparison. TECHNIQUE: Helical axial images of the cervical spine were obtained without IV contrast. Sagittal and coronal reconstructions were viewed. FINDINGS: No acute cervical spine fracture is identified. Craniocervical junction is intact. There is severe multilevel facet arthrosis and moderate multilevel degenerative disc disease. There is no prevertebral edema. There is made of slight reversal of the normal cervical lordosis. There is extensive anterior osteophytosis. IMPRESSION: 1. No acute cervical spine fracture or subluxation. 2. 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 EKG Wide QRS, LBBB ASSESSMENT & PLAN: Assessment and Plan : This is a 86 year old male with a PMH of CKD stage IV, sinus node dysfunction s/ p PPM, COPD, DM2, HTN, HLD - recent hospital admission in August 2016 with volume overload, here with acute kidney injury, Rhabdomyolysis and possible pneumonia. BACTEREMIA (GROUP B STREP) : Likely secondary to CELLULITIS LLE / COMMUNITY ACQUIRED PNEUMONIA Afebrile, No leucocytosis -S/P IV Zosyn/Vancomycin/ Levofloxacin. Discontinued Levofloxacin as QTC prolonged and high risk of arrhythmias with his prior cardiac history. Changed back to IV Unasyn on 10/18 as per C/S results--> Changed to Augmentin BID (Day 7 of antibiotics) -Lactic acid down from 6 to 1.8-normalized. -Follow up repeat blood culture collected on 10/18/16- Negative CELLULITIS OF LEFT LE: Improved Left LE; erythematous, warm to touch on presentation- improving Afebrile -Doppler negative for DVT -IV unasyn followed by augmentin as above ORAL THRUSH Started Nystatin QID (Day 2) MAGEN ON CK IV : Baseline around 2.0 and discharged with a creatinine of 2.3 in August 2016. Came with creatinine of 3.1 -Likely secondary to infection, rhabdomyolysis, volume depletion -S/P IVF - Lasix initially held and restarted on 10/20/16 at 10 mg IV TID. Lisinopril discontinued. Continue with lasix -Avoid nephrotoxic agents. -Appreciate neurology inputs. RHABDOMYOLYSIS: Improved Secondary to prolonged immobilization secondary to fall due to weakness due to combination as above -CPK in 2000s on presentation, trending down-600s. Did not present with typical rhabdomyolysis electrolyte abnormalities. -S/P IVF. Discontinued on 10/18/16. Lasix restarted ? SYNCOPE : -Likely Multifactorial: Infection/Bacteremia, Volume depletion, MAGEN on CKD IV leading to generalized weakness (severe) to the extent that he was not able to get up from floor. So unclear it it was true syncope vs severe generalized weakness -Work up- CT head/Cervical spine- Negative; Pacemaker interrogation ordered -PT/OT- Likely will need rehab ELEVATED TROPONIN: Troponin elevated 0.420 --> down to 0.276 , trending down -Likely related to above- Rhabo, MAGEN, Bacteremia leading to demand ischemia, less likely to be cardiac -EKG- Atrial fibrillation with LBBB, QTC 556- prolonged -Discontinued Levofloxacin ABNORMAL CT SCAN ABDOMEN CT scan abd/pelvis shows multiple findings: 1. Peripancreatic edema with mild thickening of third portion of duodenum, which could be secondary to his cirrhosis. Lipase is negative, clinically no signs of pancreatitis 2. Cirrhosis with small ascites - Mildly elevated LFTs, INR 1.3. Reviewed his outpatient chart, no prior hx of cirrhosis but LFTs- slightly up, INR 1.3, Albumin 2.4. No prior known hx of cirrhosis or alcohol abuse per patient. 3. Possible 2.7 cm hypodense lesion within the right hepatic dome. However, this is difficult to characterize on this noncontrast study. Per patient, has had this in the past 4. Mild thickening of the sigmoid colon which likely represents a nonspecific colitis.- Clinically less likely. Will need to monitor closely and follow up outpatient SINUS NODE DYSFUNCTION S/P PACEMAKER Paroxysmal A fib on EKG with prolonged QTC -Avoid QTC prolonging drugs -Amiodarone discontinued by Cardiology as not a good intermediate candidate, sdueep with CT results ? cirrhosis -Increased metoprolol to 25 mg PO BID from 12.5 mg PO BID on 10/20/16 per cardiology. CHRONIC CHF WITH Preserved EF -Lasix held. Eventually will need to restart it. -S/P IVF. Lasix restarted as above- IV 10 mg TID -Cardiology on board. HYPERTENSIVE URGENCY - BP improved BP was >200/100 on admission, now down -Held antihypertensives including lisinopril -Restarted toprol 12.5 mg PO BID on 10/18/16 per cardiology and increased to 25 mg PO BID on 10/20/16 COPD -No signs of exacerbation -BIPAP overnight -Nebulizers PRN DM2 HA1C = 6.2%, well controlled at home -Increased lantus to 12 units BID and cont. sliding scale DVT ppx DINA + SCDs hx. of MDS and thrombocytopenia DNR DISPOSITION -PT/OT -Will need rehab due to profound generalized weakness and as lives alone with no support -Likely discharge in 1-2 days Vital Signs: Date Time Temp Pulse Resp B/P (MAP) Pulse Ox O2 Delivery O2 Flow Rate FiO2 10/23/16 08:00 95 CPAP 10/23/16 07:29 36.4 52 20 98/60 (73) 95 BiPAP 10/23/16 00:45 CPAP 10/22/16 23:10 36.7 77 20 95/54 (68) 97 Room Air 10/22/16 20:47 95/45 (62) 10/22/16 16:00 93 Room Air 10/22/16 15:03 36.6 64 20 95/61 (72) 93 Room Air Lab Results: Results Past 24 Hours Test 10/22/16 16:40 10/22/16 20:03 10/23/16 07:44 10/23/16 11:46 Range/Units Bedside Glucose 194 187 130 70-99 mg/dl White Blood Count 6.70 4.8-10.8 K/uL Red Blood Count 3.42 4.7-6.1 M/uL Hemoglobin 9.5 14.0-18.0 g/dL Hematocrit 30.7 42-52 % Mean Corpuscular Volume 89.8 80-100 fL Mean Corpuscular Hemoglobin 27.8 25-34 pg Mean Corpuscular Hemoglobin Concent 30.9 32-36 g/dl RDW Standard Deviation 51.1 36.4-46.3 fL RDW Coefficient of Variation 15.8 11.5-14.5 % Platelet Count 87 130-400 K/uL Mean Platelet Volume 9.8 7.4-10.4 fL Sodium Level 146 136-145 mmol/L Potassium Level 3.5 3.5-5.1 mmol/L Chloride Level 113 98-107 mmol/L Carbon Dioxide Level 22 21-32 mmol/L Anion Gap 11.0 3-11 mmol/L Blood Urea Nitrogen 73 7-18 mg/dl Creatinine 3.10 0.60-1.40 mg/dl Est Creatinine Clear Calc Drug Dose 24.8 ml/min Estimated GFR () 20.0 Estimated GFR (Non- 17.3 BUN/Creatinine Ratio 23.4 10-20 Random Glucose 186 70-99 mg/dl Calcium Level 7.4 8.5-10.1 mg/dl Total Bilirubin 0.5 0.2-1 mg/dl Aspartate Amino Transf (AST/SGOT) 99 15-37 U/L Alanine Aminotransferase (ALT/SGPT) 85 12-78 U/L Alkaline Phosphatase 115 45-117 U/L Total Protein 5.2 6.4-8.2 gm/dl Albumin 1.8 3.4-5.0 gm/dl Globulin 3.4 2.5-4.0 gm/dl Albumin/Globulin Ratio 0.5 0.9-2 Test 10/23/16 11:55 Range/Units Bedside Glucose 211 70-99 mg/dl
--- NOTE | 2016-10-23 13:17 | PROGRESS NOTE ---
DATE: 10/23/2016 SUBJECTIVE: Overnight, no new symptoms. The patient denies having any nausea, vomiting, chest pain, shortness of breath. He still has a lot of lower extremity edema. His urine output in a 24-hour time period was 975 mL with Lasix 10 mg IV t.i.d. He does not have labs from this morning. PHYSICAL EXAMINATION: GENERAL: Awake, alert, hard to test orientation. He is morbidly obese. He does not seem to be in any respiratory distress. HEENT: Mucous membrane moist. NECK: Supple. No jugular venous distention. CHEST: Bilateral decreased breath sounds, poor inspiratory effort. CARDIOVASCULAR: Regular rate and rhythm, 2+ edema. ABDOMEN: Soft, nontender. He does have a Domingo. EXTREMITIES: Shows 2+ pedal edema. ASSESSMENT AND PLAN: Acute kidney injury, on chronic kidney disease stage 4. He is no longer oliguric possibly ATN in the setting of rhabdomyolysis/strep bacteremia. He is slowly getting better. His blood pressure is still somewhat marginal. I would continue with the Lasix 10 mg IV t.i.d. at this time, but we do need blood work to assess his sodium and potassium as well as renal function. Further medication changes will be done after the lab results from today are back. At the time of admission, he had a creatinine of 3.8 and as of yesterday, it had dropped very little down to 3.20. MTDD
[2016-10-23] MEDS: NYSTATIN SUSP 500,000 U/5 ML UDC PO SCH ×2 (17:32→19:41)
[2016-10-23] MEDS: ALBUMIN 25% 50 ML with FUROSEMIDE INJ 40 MG IV SCH ×2 (20:24)
[2016-10-23] MEDS: FAMOTIDINE 20 MG TAB PO SCH (20:28)
[2016-10-24] VITALS (8 sets, daily range): BP systolic 88–113; BP diastolic 36–72; PULSE 59–78; TEMP 36.5–36.8; O2SAT 90–100
[2016-10-24] MEDS: LEValbuterol HFA 15GM INHALER INH SCH ×4 (06:28→18:26)
[2016-10-24 07:23] LABS: HEMATOCRIT 28.7 % (42-52); MEAN CELL VOLUME 89.4 fL (80-100); MEAN CORPUSCULAR HEMOGLOBIN 27.1 pg (25-34); MEAN CORPUSCULAR HGB CONC 30.3 g/dl (32-36); RED BLOOD COUNT 3.21 M/uL (4.7-6.1); WHITE BLOOD COUNT 5.66 K/uL (4.8-10.8)
[2016-10-24 07:33] LABS: MEAN PLATELET VOLUME 9.6 fL (7.4-10.4); PLATELET COUNT 96 K/uL (130-400)
[2016-10-24 07:48] LABS: BUN/CREATININE RATIO 21.7 (10-20); CALCIUM 7.3 mg/dl (8.5-10.1); POTASSIUM 3.8 mmol/L (3.5-5.1)
[2016-10-24] MEDS: ALBUMIN 25% 50 ML with FUROSEMIDE INJ 40 MG IV SCH ×4 (07:54→20:12)
[2016-10-24] MEDS: METOPROLOL SUCC 25MG EXT REL TAB PO SCH ×2 (07:54→20:19)
[2016-10-24] MEDS: AMOXICILLIN/CLAVULANATE TAB 500 MG TAB PO SCH ×2 (07:55→18:26)
[2016-10-24] MEDS: ATORVASTATIN 20 MG TAB PO SCH (07:55)
[2016-10-24] MEDS: NYSTATIN SUSP 500,000 U/5 ML UDC PO SCH ×4 (07:56→20:19)
[2016-10-24] MEDS: PANTOprazole SOD 40 MG TAB PO SCH (07:56)
[2016-10-24] MEDS: INSULIN ASPART 100 UNITS/ML 3 ML PEN SC SCH ×4 (08:44→21:10)
[2016-10-24] MEDS: INSULIN GLARGINE SOLOSTAR 100 UNITS/ML 3 ML PEN SC SCH ×2 (08:45→21:13)
--- NOTE | 2016-10-24 10:06 | Nephrology Progress Note ---
Nephrology Progress Note Date of Service: Oct 24, 2016. Subjective 86 yo male with izaiah on ckd stage 4 with underlying atn from strep bacteremia and has concomitant mild rhabdo/liver cirrhosis/volume overload. pt lives independently. on iv lasix and creatinine stable in the low 3s. has keyes catheter in place and fluid restriction. about -300cc a day of fluid removal. bp in the low 100s systolic. Objective Date Time Temp Pulse Resp B/P (MAP) Pulse Ox O2 Delivery O2 Flow Rate FiO2 10/24/16 07:07 36.7 76 20 113/67 (82) 95 Room Air 10/24/16 00:00 CPAP 10/23/16 23:05 36.6 71 18 105/69 (81) 96 Nasal Cannula 2.0 10/23/16 21:04 111/74 (86) 10/23/16 20:39 117/72 (87) 10/23/16 20:20 73 109/56 (73) 98 Room Air 10/23/16 16:00 94 Room Air 10/23/16 15:51 36.6 74 20 92/49 (63) 94 Room Air Physical Exam: General-aaox3 Eyes-no scleral icterus ENT-mmm Neck-supple Lungs-decreased at bases Heart-distant heart sounds Abdomen-distended Extremities-+1 edema Neuro-nonfocal Current Inpatient Medications Medications (Trade) Dose Ordered Sig/Gin Route Start Time Stop Time Status Last Admin Dose Admin Acetaminophen (Tylenol Tab) 650 mg Q4H PRN PO 10/16/16 10:45 11/15/16 10:44 10/20/16 20:02 650 MG Al Hydrox/Mg Hydrox/Simethicone (Maalox Max Susp) 15 ml Q4H PRN PO 10/16/16 10:45 11/15/16 10:44 Magnesium Hydroxide (Milk Of Magnesia Susp) 30 ml Q12H PRN PO 10/16/16 10:45 11/15/16 10:44 Ondansetron HCl (Zofran Inj) 4 mg Q6H PRN IV 10/16/16 10:45 11/15/16 10:44 Polyethylene (Miralax Powder Packet) 17 gm DAILY PRN PO 10/16/16 10:45 11/15/16 10:44 Insulin Aspart (novoLOG ASPART) SLIDING SCALE If C... ACHS SC 10/16/16 11:00 11/15/16 10:59 10/24/16 08:44 6 UNITS Glucose (Glucose 40% Gel) 15-30 GRAMS 15 GRAMS... UD PRN PO 10/16/16 10:45 11/15/16 10:44 Glucose (Glucose Chew Tab) 4-8 Tablets 4 Tabl... UD PRN PO 10/16/16 10:45 11/15/16 10:44 Dextrose (Dextrose 50% 50ML Syringe) 25-50ML OF 50% DW IV FOR... UD PRN IV 10/16/16 10:45 11/15/16 10:44 Glucagon (Glucagon Inj) 1 mg UD PRN SQ 10/16/16 10:45 11/15/16 10:44 Atorvastatin Calcium (Lipitor Tab) 20 mg DAILY PO 10/17/16 09:00 11/16/16 08:59 10/24/16 07:55 20 MG Famotidine (Pepcid Tab) 20 mg QPM PO 10/16/16 21:00 11/15/16 20:59 10/23/16 20:28 20 MG Folic Acid (Folvite Tab) 1 mg DAILY PO 10/17/16 09:00 11/16/16 08:59 10/24/16 07:56 1 MG Pantoprazole Sodium (Protonix Tab) 40 mg DAILY PO 10/17/16 09:00 11/16/16 08:59 10/24/16 07:56 40 MG Insulin Glargine (Lantus Solostar Pen) 12 unit Q12 SC 10/17/16 21:00 11/16/16 20:59 10/24/16 08:45 12 UNIT Metoprolol Succinate (Toprol Xl Tab) 25 mg BID PO 10/20/16 20:00 11/17/16 09:59 10/24/16 07:54 25 MG Levalbuterol (Xopenex Hfa Inhaler) 2 puffs Q6 INH 10/20/16 18:00 11/19/16 17:59 10/24/16 06:28 2 PUFFS Amoxicillin/ Clavulanate Potassium (Augmentin Tab) 500 mg BIDM PO 10/22/16 17:00 11/01/16 16:59 10/24/16 07:55 500 MG Nystatin (Mycostatin Susp) 5 ml QID PO 10/23/16 17:00 11/02/16 16:59 10/24/16 07:56 5 ML Furosemide 40 mg/ Albumin Human 54 ml @ 54 mls/hr BID IV 10/23/16 20:00 10/26/16 19:59 10/24/16 07:54 54 MLS/HR Last 24 Hours Test 10/23/16 11:46 10/23/16 11:55 10/23/16 17:05 10/23/16 20:15 White Blood Count 6.70 K/uL Red Blood Count 3.42 M/uL Hemoglobin 9.5 g/dL Hematocrit 30.7 % Mean Corpuscular Volume 89.8 fL Mean Corpuscular Hemoglobin 27.8 pg Mean Corpuscular Hemoglobin Concent 30.9 g/dl RDW Standard Deviation 51.1 fL RDW Coefficient of Variation 15.8 % Platelet Count 87 K/uL Mean Platelet Volume 9.8 fL Sodium Level 146 mmol/L Potassium Level 3.5 mmol/L Chloride Level 113 mmol/L Carbon Dioxide Level 22 mmol/L Anion Gap 11.0 mmol/L Blood Urea Nitrogen 73 mg/dl Creatinine 3.10 mg/dl Est Creatinine Clear Calc Drug Dose 24.8 ml/min Estimated GFR () 20.0 Estimated GFR (Non- 17.3 BUN/Creatinine Ratio 23.4 Random Glucose 186 mg/dl Calcium Level 7.4 mg/dl Total Bilirubin 0.5 mg/dl Aspartate Amino Transf (AST/SGOT) 99 U/L Alanine Aminotransferase (ALT/SGPT) 85 U/L Alkaline Phosphatase 115 U/L Total Protein 5.2 gm/dl Albumin 1.8 gm/dl Globulin 3.4 gm/dl Albumin/Globulin Ratio 0.5 Bedside Glucose 211 mg/dl 167 mg/dl 179 mg/dl Test 10/24/16 06:31 10/24/16 07:30 White Blood Count 5.66 K/uL Red Blood Count 3.21 M/uL Hemoglobin 8.7 g/dL Hematocrit 28.7 % Mean Corpuscular Volume 89.4 fL Mean Corpuscular Hemoglobin 27.1 pg Mean Corpuscular Hemoglobin Concent 30.3 g/dl RDW Standard Deviation 51.3 fL RDW Coefficient of Variation 15.7 % Platelet Count 96 K/uL Mean Platelet Volume 9.6 fL Sodium Level 147 mmol/L Potassium Level 3.8 mmol/L Chloride Level 114 mmol/L Carbon Dioxide Level 24 mmol/L Anion Gap 9.0 mmol/L Blood Urea Nitrogen 65 mg/dl Creatinine 3.00 mg/dl Est Creatinine Clear Calc Drug Dose 25.7 ml/min Estimated GFR () 20.8 Estimated GFR (Non- 18.0 BUN/Creatinine Ratio 21.7 Random Glucose 134 mg/dl Calcium Level 7.3 mg/dl Bedside Glucose 133 mg/dl Assessment & Plan izaiah on ckd stage 4 with creatinine in the low 3s and on iv diuretics. continue current diuretics for now. will consider adding albumin to help mobilize the fluid better. will discuss further with hospitalist. lives independently and pt inquiring about going home. question if he may benefit from therapy. for now, continue current keyes catheter and diuretics. overall poor prognosis.
[2016-10-24] MEDS: ALBUMIN HUMAN 25% 12.5 GM/50 ML VIAL IV SCH ×2 (11:37→21:10)
--- NOTE | 2016-10-24 13:29 | Progress Note ---
Internal Med Progress Note Date of Service: Oct 24, 2016. Provider Documentation: SUBJECTIVE: Patient is OOB to chair, doing better. Does have cough with sputum + which has been ongoing x 2 weeks, but overall improved. No chest pain, fever, chills, nausea, vomiting, diarrhea, abdominal pain. Tolerating PO. Eager to be discharged. OBJECTIVE: Vital Signs-as noted below Exam: General Appearance: no apparent distress, + pertinent finding (+weakness, ) HEENT- Oral thrush Respiratory/Chest: no respiratory distress, no accessory muscle use Cardiovascular: regular rate, rhythm, no gallop, no JVD, no murmur Abdomen: normal bowel sounds, non tender, soft, Distended + Extremities: + pertinent finding (LLE warm to touch, erythematous- improved); Wounds- dried on both LE- shins Lab data as noted below. Diagnostic Radiology CT OF THE HEAD WITHOUT CONTRAST CLINICAL HISTORY: Fall. COMPARISON STUDY: No previous studies for comparison. TECHNIQUE: Helical axial images of the head were obtained without IV contrast. Automated exposure control was utilized for the study. FINDINGS: This exam is mildly compromised by motion artifact. No acute intracranial hemorrhage, midline shift or mass effect is present. Ventricular system is unremarkable for age. Basilar cisterns are patent. There are no extra-axial collections. There is moderate atrophy and mild small vessel disease. There is no calvarial fracture. There is mild mucosal thickening of the sinuses. IMPRESSION: 1. No acute intracranial findings. 2. No calvarial fracture. CHEST ONE VIEW PORTABLE CLINICAL HISTORY: Dyspnea. COMPARISON STUDY: Chest radiograph September 01, 2016. FINDINGS: There is no pneumothorax or pleural effusion. Moderate cardiomegaly is noted. There are median sternotomy wires and a dual lead left pacemaker. This study is compromised by motion artifact. There is pulmonary vasculature congestion. There is minimal left basilar opacity. IMPRESSION: 1. Moderate cardiomegaly. 2. Asymmetric right lung interstitial thickening which favors pulmonary vascular congestion with possible mild pulmonary edema. An infectious process could appear similar. CT OF THE CERVICAL SPINE WITHOUT CONTRAST CLINICAL HISTORY: Fall. COMPARISON STUDY: No previous studies for comparison. TECHNIQUE: Helical axial images of the cervical spine were obtained without IV contrast. Sagittal and coronal reconstructions were viewed. FINDINGS: No acute cervical spine fracture is identified. Craniocervical junction is intact. There is severe multilevel facet arthrosis and moderate multilevel degenerative disc disease. There is no prevertebral edema. There is made of slight reversal of the normal cervical lordosis. There is extensive anterior osteophytosis. IMPRESSION: 1. No acute cervical spine fracture or subluxation. 2. 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 EKG Wide QRS, LBBB ASSESSMENT & PLAN: Assessment and Plan : This is a 86 year old male with a PMH of CKD stage IV, sinus node dysfunction s/ p PPM, COPD, DM2, HTN, HLD - recent hospital admission in August 2016 with volume overload, here with acute kidney injury, Rhabdomyolysis and possible pneumonia. BACTEREMIA (GROUP B STREP) : Likely secondary to CELLULITIS LLE / COMMUNITY ACQUIRED PNEUMONIA Afebrile, No leucocytosis -S/P IV Zosyn/Vancomycin/ Levofloxacin. Discontinued Levofloxacin as QTC prolonged and high risk of arrhythmias with his prior cardiac history. Changed back to IV Unasyn on 10/18 as per C/S results--> Changed to Augmentin BID (Day 8 of antibiotics) -Lactic acid down from 6 to 1.8-normalized. -Follow up repeat blood culture collected on 10/18/16- Negative CELLULITIS OF LEFT LE: Improved Left LE; erythematous, warm to touch on presentation- improving Afebrile -Doppler negative for DVT -IV unasyn followed by augmentin as above ORAL THRUSH -Started Nystatin QID (Day 2) MAGEN ON CK IV : Baseline around 2.0 and discharged with a creatinine of 2.3 in August 2016. Came with creatinine of 3.1 -Likely secondary to infection, rhabdomyolysis, volume depletion -S/P IVF - Lasix initially held and restarted on 10/20/16 at 10 mg IV TID. Lisinopril discontinued. Continue with lasix IV. Added IV Albumin to help mobilize fluid as per d/w nephrology. -Avoid nephrotoxic agents. -Appreciate neurology inputs. RHABDOMYOLYSIS: Improved Secondary to prolonged immobilization secondary to fall due to weakness due to combination as above -CPK in 1999s on presentation, trending down. Did not present with typical rhabdomyolysis electrolyte abnormalities. -S/P IVF. Discontinued on 10/18/16. Lasix restarted. ? SYNCOPE : -Likely Multifactorial: Infection/Bacteremia, Volume depletion, MAGEN on CKD IV leading to generalized weakness (severe) to the extent that he was not able to get up from floor. So unclear it it was true syncope vs severe generalized weakness -Work up- CT head/Cervical spine- Negative; Pacemaker interrogation ordered -PT/OT- Likely will need rehab ELEVATED TROPONIN: Troponin elevated 0.420 --> down to 0.276 , trending down -Likely related to above- Rhabo, MAGEN, Bacteremia leading to demand ischemia, less likely to be cardiac -EKG- Atrial fibrillation with LBBB, QTC 556- prolonged -Discontinued Levofloxacin ABNORMAL CT SCAN ABDOMEN CT scan abd/pelvis shows multiple findings: 1. Peripancreatic edema with mild thickening of third portion of duodenum, which could be secondary to his cirrhosis. Lipase is negative, clinically no signs of pancreatitis 2. Cirrhosis with small ascites - Mildly elevated LFTs, INR 1.3. Reviewed his outpatient chart, no prior hx of cirrhosis but LFTs- slightly up, INR 1.3, Albumin 2.4. No prior known hx of cirrhosis or alcohol abuse per patient. 3. Possible 2.7 cm hypodense lesion within the right hepatic dome. However, this is difficult to characterize on this noncontrast study. Per patient, has had this in the past 4. Mild thickening of the sigmoid colon which likely represents a nonspecific colitis.- Clinically less likely. Will need to monitor closely and follow up outpatient SINUS NODE DYSFUNCTION S/P PACEMAKER Paroxysmal A fib on EKG with prolonged QTC -Avoid QTC prolonging drugs -Amiodarone discontinued by Cardiology as not a good halfway candidate, sudeep with CT results ? cirrhosis -Increased metoprolol to 25 mg PO BID from 12.5 mg PO BID on 10/20/16 per cardiology. CHRONIC CHF WITH Preserved EF -Lasix held. -S/P IVF. Lasix restarted as above- IV 10 mg TID -Cardiology signed off. HYPERTENSIVE URGENCY - BP improved BP was >200/100 on admission, now down -Held antihypertensives including lisinopril -Restarted toprol 12.5 mg PO BID on 10/18/16 per cardiology and increased to 25 mg PO BID on 10/20/16 COPD -No signs of exacerbation -BIPAP overnight -Nebulizers PRN DM2 HA1C = 6.2%, well controlled at home -Had increased lantus to 12 units BID and cont. sliding scale DVT ppx DINA + SCDs hx. of MDS and thrombocytopenia DNR DISPOSITION -PT/OT -Will need rehab due to profound generalized weakness and as lives alone with no support -Likely discharge in 1-2 days Vital Signs: Date Time Temp Pulse Resp B/P (MAP) Pulse Ox O2 Delivery O2 Flow Rate FiO2 10/24/16 13:10 36.8 63 16 88/52 (64) 99 Room Air 10/24/16 11:35 36.5 78 16 94/56 (69) 99 Room Air 10/24/16 08:00 Room Air 10/24/16 07:07 36.7 76 20 113/67 (82) 95 Room Air 10/24/16 00:00 CPAP 10/23/16 23:05 36.6 71 18 105/69 (81) 96 Nasal Cannula 2.0 10/23/16 21:04 111/74 (86) 10/23/16 20:39 117/72 (87) 10/23/16 20:20 73 109/56 (73) 98 Room Air 10/23/16 16:00 94 Room Air 10/23/16 15:51 36.6 74 20 92/49 (63) 94 Room Air Lab Results: Results Past 24 Hours Test 10/23/16 17:05 10/23/16 20:15 10/24/16 06:31 10/24/16 07:30 Range/Units Bedside Glucose 167 179 133 70-99 mg/dl White Blood Count 5.66 4.8-10.8 K/uL Red Blood Count 3.21 4.7-6.1 M/uL Hemoglobin 8.7 14.0-18.0 g/dL Hematocrit 28.7 42-52 % Mean Corpuscular Volume 89.4 80-100 fL Mean Corpuscular Hemoglobin 27.1 25-34 pg Mean Corpuscular Hemoglobin Concent 30.3 32-36 g/dl RDW Standard Deviation 51.3 36.4-46.3 fL RDW Coefficient of Variation 15.7 11.5-14.5 % Platelet Count 96 130-400 K/uL Mean Platelet Volume 9.6 7.4-10.4 fL Sodium Level 147 136-145 mmol/L Potassium Level 3.8 3.5-5.1 mmol/L Chloride Level 114 98-107 mmol/L Carbon Dioxide Level 24 21-32 mmol/L Anion Gap 9.0 3-11 mmol/L Blood Urea Nitrogen 65 7-18 mg/dl Creatinine 3.00 0.60-1.40 mg/dl Est Creatinine Clear Calc Drug Dose 25.7 ml/min Estimated GFR () 20.8 Estimated GFR (Non- 18.0 BUN/Creatinine Ratio 21.7 10-20 Random Glucose 134 70-99 mg/dl Calcium Level 7.3 8.5-10.1 mg/dl Test 10/24/16 11:15 Range/Units Bedside Glucose 198 70-99 mg/dl
[2016-10-24] MEDS: FAMOTIDINE 20 MG TAB PO SCH (20:20)
[2016-10-25] MEDS: LEValbuterol HFA 15GM INHALER INH SCH ×3 (05:38→11:26)
[2016-10-25 06:53] VITALS: BP 102/54; PULSE 64; TEMP 36.5; O2SAT 98
[2016-10-25] MEDS: NYSTATIN SUSP 500,000 U/5 ML UDC PO SCH ×4 (08:02→20:28)
[2016-10-25] MEDS: METOPROLOL SUCC 25MG EXT REL TAB PO SCH ×2 (08:03→20:28)
[2016-10-25] MEDS: ATORVASTATIN 20 MG TAB PO SCH (08:03)
[2016-10-25] MEDS: PANTOprazole SOD 40 MG TAB PO SCH (08:03)
[2016-10-25] MEDS: AMOXICILLIN/CLAVULANATE TAB 500 MG TAB PO SCH ×2 (08:03→17:52)
[2016-10-25] MEDS: ALBUMIN 25% 50 ML with FUROSEMIDE INJ 40 MG IV SCH ×6 (08:05→20:23)
[2016-10-25 08:23] LABS: BUN/CREATININE RATIO 21.7 (10-20); CREATININE 2.8 mg/dl (0.60-1.40); POTASSIUM 3.4 mmol/L (3.5-5.1)
[2016-10-25 08:48] LABS: CALCIUM 7.8 mg/dl (8.5-10.1)
[2016-10-25] MEDS: INSULIN GLARGINE SOLOSTAR 100 UNITS/ML 3 ML PEN SC SCH ×2 (08:48→20:40)
[2016-10-25] MEDS: INSULIN ASPART 100 UNITS/ML 3 ML PEN SC SCH ×4 (08:48→20:40)
[2016-10-25] MEDS: ALBUMIN HUMAN 25% 12.5 GM/50 ML VIAL IV SCH ×2 (09:36→21:44)
--- NOTE | 2016-10-25 10:42 | Nephrology Progress Note ---
Nephrology Progress Note Date of Service: Oct 25, 2016. Subjective 86 yo male with izaiah on ckd stage 4 with underlying atn from strep bacteremia and has concomitant mild rhabdo/liver cirrhosis/volume overload. pt lives independently. on iv lasix and creatinine stable in the low 3s. has keyes catheter in place and fluid restriction. pt noticed he is wheezing today. Objective Date Time Temp Pulse Resp B/P (MAP) Pulse Ox O2 Delivery O2 Flow Rate FiO2 10/25/16 08:00 Room Air 10/25/16 06:53 36.5 64 20 102/54 (70) 98 Room Air 10/25/16 00:00 CPAP 10/24/16 23:58 36.8 63 16 108/36 (60) 100 Nasal Cannula 2.0 10/24/16 21:56 36.6 65 20 105/72 (83) 96 Room Air 10/24/16 21:11 36.6 59 20 99/57 (71) 99 Room Air 10/24/16 20:08 36.7 68 20 106/61 (76) 99 Room Air 10/24/16 18:44 Room Air CPAP 10/24/16 15:59 36.5 71 22 101/65 (77) 90 Room Air 10/24/16 13:10 36.8 63 16 88/52 (64) 99 Room Air 10/24/16 11:35 36.5 78 16 94/56 (69) 99 Room Air Physical Exam: General-aaox3 Eyes-no scleral icterus ENT-mmm Neck-supple Lungs-+wheezing Heart-distant heart sounds Abdomen-distended Extremities-+1 to 2 edema Neuro-nonfocal Current Inpatient Medications Medications (Trade) Dose Ordered Sig/Gin Route Start Time Stop Time Status Last Admin Dose Admin Acetaminophen (Tylenol Tab) 650 mg Q4H PRN PO 10/16/16 10:45 11/15/16 10:44 10/20/16 20:02 650 MG Al Hydrox/Mg Hydrox/Simethicone (Maalox Max Susp) 15 ml Q4H PRN PO 10/16/16 10:45 11/15/16 10:44 Magnesium Hydroxide (Milk Of Magnesia Susp) 30 ml Q12H PRN PO 10/16/16 10:45 11/15/16 10:44 Ondansetron HCl (Zofran Inj) 4 mg Q6H PRN IV 10/16/16 10:45 11/15/16 10:44 Polyethylene (Miralax Powder Packet) 17 gm DAILY PRN PO 10/16/16 10:45 11/15/16 10:44 Insulin Aspart (novoLOG ASPART) SLIDING SCALE If C... ACHS SC 10/16/16 11:00 11/15/16 10:59 10/25/16 08:48 7 UNITS Glucose (Glucose 40% Gel) 15-30 GRAMS 15 GRAMS... UD PRN PO 10/16/16 10:45 11/15/16 10:44 Glucose (Glucose Chew Tab) 4-8 Tablets 4 Tabl... UD PRN PO 10/16/16 10:45 11/15/16 10:44 Dextrose (Dextrose 50% 50ML Syringe) 25-50ML OF 50% DW IV FOR... UD PRN IV 10/16/16 10:45 11/15/16 10:44 Glucagon (Glucagon Inj) 1 mg UD PRN SQ 10/16/16 10:45 11/15/16 10:44 Atorvastatin Calcium (Lipitor Tab) 20 mg DAILY PO 10/17/16 09:00 11/16/16 08:59 10/25/16 08:03 20 MG Famotidine (Pepcid Tab) 20 mg QPM PO 10/16/16 21:00 11/15/16 20:59 10/24/16 20:20 20 MG Folic Acid (Folvite Tab) 1 mg DAILY PO 10/17/16 09:00 11/16/16 08:59 10/25/16 08:03 1 MG Pantoprazole Sodium (Protonix Tab) 40 mg DAILY PO 10/17/16 09:00 11/16/16 08:59 10/25/16 08:03 40 MG Insulin Glargine (Lantus Solostar Pen) 12 unit Q12 SC 10/17/16 21:00 11/16/16 20:59 10/25/16 08:48 12 UNIT Metoprolol Succinate (Toprol Xl Tab) 25 mg BID PO 10/20/16 20:00 11/17/16 09:59 10/25/16 08:03 25 MG Levalbuterol (Xopenex Hfa Inhaler) 2 puffs Q6 INH 10/20/16 18:00 7/1/17 17:59 10/25/16 05:38 2 PUFFS Amoxicillin/ Clavulanate Potassium (Augmentin Tab) 500 mg BIDM PO 10/22/16 17:00 11/01/16 16:59 10/25/16 08:03 500 MG Nystatin (Mycostatin Susp) 5 ml QID PO 10/23/16 17:00 11/02/16 16:59 10/25/16 08:02 5 ML Furosemide 40 mg/ Albumin Human 54 ml @ 54 mls/hr BID IV 10/23/16 20:00 10/26/16 19:59 10/25/16 08:05 54 MLS/HR Albumin Human (Albumin 25%) 12.5 gm Q12 IV 10/24/16 10:30 10/27/16 08:59 10/25/16 09:36 12.5 GM Last 24 Hours Test 10/24/16 11:15 10/24/16 16:26 10/24/16 19:44 10/25/16 07:19 Bedside Glucose 198 mg/dl 165 mg/dl 166 mg/dl 130 mg/dl Test 10/25/16 07:37 Sodium Level 148 mmol/L Potassium Level 3.4 mmol/L Chloride Level 114 mmol/L Carbon Dioxide Level 22 mmol/L Anion Gap 12.0 mmol/L Blood Urea Nitrogen 61 mg/dl Creatinine 2.80 mg/dl Est Creatinine Clear Calc Drug Dose 27.5 ml/min Estimated GFR () 22.6 Estimated GFR (Non- 19.5 BUN/Creatinine Ratio 21.7 Random Glucose 130 mg/dl Calcium Level 7.8 mg/dl Assessment & Plan izaiah on ckd stage 4 with creatinine of 2.8 and on iv diuretics. pt started on albumin to help mobilize extra fluid and has wheezing. perhaps mobilizing the fluid and going into the lungs. will continue the albumin, however will increase the lasix to tid to help with the volume overloaded state.
--- NOTE | 2016-10-25 14:02 | Progress Note ---
Internal Med Progress Note Date of Service: Oct 25, 2016. Provider Documentation: SUBJECTIVE: Seen and examined at bedside. Complains of wheezing and SOB today. Also has cough with clear expectoration. Denies any chest pain. Offers no other complaints. OBJECTIVE: Vital Signs-as noted below Physical Exam: General Appearance:Moderately built and nourished Head: normocephalic, Atraumatic Eyes: normal inspection, EOMI, PERRL Neck: supple, Trachea midline Respiratory/Chest: Normal breath sounds, + B/L wheezing Cardiovascular: S1, S2, No murmur Abdomen/GI:Soft, Non tender, Bowel sounds present, + protuberant Extremities/Musculoskelatal:normal inspection, B/L LE edema Neurologic/Psych:AAOX3, grossly no focal neurological deficits Skin: normal color, warm Lab data as noted below. ASSESSMENT & PLAN: Patient is an 86 yr M, with PMH of CKD IV, Sinus node dysfunction s/p PPM, COPD , DM II, HTN, HLD who was recently discharged after being treated for volume overload was admitted and currently being treated for acute kidney injury, Rhabdomyolysis, Volume overload, bacteremia and possible pneumonia. BACTEREMIA (GROUP B STREP) : Likely secondary to CELLULITIS LLE / COMMUNITY ACQUIRED PNEUMONIA Afebrile, No leucocytosis S/P IV Zosyn/Vancomycin/Levofloxacin. Discontinued Levofloxacin as QTC prolonged. Changed IV Unasyn on 10/18 as per C/S results Currently being treated with Augmentin BID # Day 9 Repeat blood culture from 10/19/16: Negative CELLULITIS OF LLE: Improved Left LE; erythematous, warm to touch on presentation- improving Afebrile Doppler negative for DVT IV unasyn >>>augmentin ORAL THRUSH Continue Nystatin QID: Day 3 MAGEN ON CKD IV : Volume overload Baseline Cr: around 2.0 Likely secondary to rhabdomyolysis, volume depletion S/P IVF Cr:2.8 today Continue IV diuresis per Nephrology (IV Lasix 40mg TID) Also on IV albumin to mobilize fluids Avoid nephrotoxic agents. Appreciate neurology help. RHABDOMYOLYSIS: Improved Secondary to prolonged immobilization secondary to fall due to weakness CPK in on presentation, trending down. S/P IVF ? SYNCOPE : Likely Multifactorial: Infection/Bacteremia, Volume depletion, MAGEN on CKD IV leading to generalized weakness Work up- CT head/Cervical spine:Negative PT/OT ELEVATED TROPONIN: Troponin elevated 0.420 --> down to 0.276 , trending down Likely related to above- Rhabo, MAGEN, Bacteremia leading to demand ischemia EKG- Atrial fibrillation with LBBB, QTC 556- prolonged Discontinued Levofloxacin ABNORMAL CT SCAN ABDOMEN CT scan abd/pelvis shows multiple findings: 1. Peripancreatic edema with mild thickening of third portion of duodenum, which could be secondary to his cirrhosis. Lipase is negative, clinically no signs of pancreatitis 2. Cirrhosis with small ascites: Mildly elevated LFTs, INR 1.3. Reviewed his outpatient chart, no prior hx of cirrhosis but LFTs- slightly up, INR 1.3, Albumin 2.4. No prior known hx of cirrhosis or alcohol abuse per patient. 3. Possible 2.7 cm hypodense lesion within the right hepatic dome. However, this is difficult to characterize on this noncontrast study. Per patient, has had this in the past 4. Mild thickening of the sigmoid colon which likely represents a nonspecific colitis: Clinically less likely. Needs follow up as outpatient SINUS NODE DYSFUNCTION S/P PACEMAKER Paroxysmal A fib on EKG with prolonged QTC Avoid QTC prolonging drugs Amiodarone discontinued by Cardiology as not a good nursing home candidate, sudeep with CT results ? cirrhosis Continue Increased metoprolol to 25 mg PO BID from 12.5 mg PO BID per cardiology. CHRONIC CHF WITH Preserved EF on Lasix Cardiology signed off. HYPERTENSIVE URGENCY: Resolved BP was >200/100 on admission, now down Continue Toprol 25 mg PO BID Also on diuretics COPD No signs of exacerbation BIPAP overnight Nebulizers PRN DM II HA1C: 6.2%, well controlled Continue Lantus 12 units BID, ISS DVT Px: SCDs: H/O MDS and thrombocytopenia Code Status: DNR DISPOSITION PT/OT Will need rehab Vital Signs: Date Time Temp Pulse Resp B/P (MAP) Pulse Ox O2 Delivery O2 Flow Rate FiO2 10/25/16 08:00 Room Air 10/25/16 06:53 36.5 64 20 102/54 (70) 98 Room Air 10/25/16 00:00 CPAP 10/24/16 23:58 36.8 63 16 108/36 (60) 100 Nasal Cannula 2.0 10/24/16 21:56 36.6 65 20 105/72 (83) 96 Room Air 10/24/16 21:11 36.6 59 20 99/57 (71) 99 Room Air 10/24/16 20:08 36.7 68 20 106/61 (76) 99 Room Air 10/24/16 18:44 Room Air CPAP 10/24/16 15:59 36.5 71 22 101/65 (77) 90 Room Air Lab Results: Results Past 24 Hours Test 10/24/16 16:26 10/24/16 19:44 10/25/16 07:19 10/25/16 07:37 Range/Units Bedside Glucose 165 166 130 70-99 mg/dl Sodium Level 148 136-145 mmol/L Potassium Level 3.4 3.5-5.1 mmol/L Chloride Level 114 98-107 mmol/L Carbon Dioxide Level 22 21-32 mmol/L Anion Gap 12.0 3-11 mmol/L Blood Urea Nitrogen 61 7-18 mg/dl Creatinine 2.80 0.60-1.40 mg/dl Est Creatinine Clear Calc Drug Dose 27.5 ml/min Estimated GFR () 22.6 Estimated GFR (Non- 19.5 BUN/Creatinine Ratio 21.7 10-20 Random Glucose 130 70-99 mg/dl Calcium Level 7.8 8.5-10.1 mg/dl Test 10/25/16 11:22 Range/Units Bedside Glucose 185 70-99 mg/dl
[2016-10-25] MEDS ORDERED: LEVALBUTEROL 1.25MG/0.5ML NEB INH PRN (15:00)
[2016-10-25 15:33] VITALS: BP 103/58; PULSE 69; TEMP 36.5; O2SAT 98
[2016-10-25 16:00] VITALS: O2SAT 98
[2016-10-25 20:22] VITALS: BP 113/60; PULSE 65; O2SAT 97
[2016-10-25] MEDS: FAMOTIDINE 20 MG TAB PO SCH (20:29)
[2016-10-25 21:42] VITALS: BP 103/61; PULSE 63
[2016-10-25 23:10] VITALS: BP 115/47; PULSE 61; TEMP 36.7; O2SAT 96
[2016-10-26] VITALS (7 sets, daily range): BP systolic 98–118; BP diastolic 43–64; PULSE 63–70; TEMP 36.4–36.6; O2SAT 95–100
[2016-10-26] MEDS: AMOXICILLIN/CLAVULANATE TAB 500 MG TAB PO SCH ×2 (07:37→17:48)
[2016-10-26] MEDS: PANTOprazole SOD 40 MG TAB PO SCH (07:37)
[2016-10-26] MEDS: ALBUMIN 25% 50 ML with FUROSEMIDE INJ 40 MG IV SCH ×2 (07:37)
[2016-10-26] MEDS: NYSTATIN SUSP 500,000 U/5 ML UDC PO SCH ×4 (07:37→20:12)
[2016-10-26] MEDS: METOPROLOL SUCC 25MG EXT REL TAB PO SCH ×2 (07:37→20:13)
[2016-10-26] MEDS: ATORVASTATIN 20 MG TAB PO SCH (07:37)
[2016-10-26] MEDS: INSULIN ASPART 100 UNITS/ML 3 ML PEN SC SCH ×4 (08:23→20:26)
[2016-10-26] MEDS: INSULIN GLARGINE SOLOSTAR 100 UNITS/ML 3 ML PEN SC SCH ×2 (08:24→20:26)
[2016-10-26 08:45] LABS: BUN/CREATININE RATIO 21.8 (10-20); CREATININE 2.7 mg/dl (0.60-1.40); POTASSIUM 3.5 mmol/L (3.5-5.1)
[2016-10-26] MEDS: ALBUMIN HUMAN 25% 12.5 GM/50 ML VIAL IV SCH ×2 (08:54→20:14)
[2016-10-26 09:35] LABS: CALCIUM 7.4 mg/dl (8.5-10.1)
--- NOTE | 2016-10-26 11:31 | Nephrology Progress Note ---
Nephrology Progress Note Date of Service: Oct 26, 2016. Subjective 86 yo male with izaiah on ckd stage 4 with underlying atn from strep bacteremia and has concomitant mild rhabdo/liver cirrhosis/volume overload. pt lives independently. on iv lasix and albumin. was having worsening wheezing yesterday and feels better today. increased lasix to tid yesterday. still with wheezing but breathing is better. pt oob to chair. Objective Date Time Temp Pulse Resp B/P (MAP) Pulse Ox O2 Delivery O2 Flow Rate FiO2 10/26/16 08:00 Room Air 10/26/16 07:22 36.6 65 20 98/57 (71) 100 CPAP 10/26/16 00:00 CPAP 10/25/16 23:10 36.7 61 18 115/47 (69) 96 CPAP 10/25/16 21:42 63 103/61 (75) 10/25/16 20:22 65 113/60 (77) 97 Room Air 10/25/16 16:00 98 Room Air 10/25/16 15:33 36.5 69 18 103/58 (73) 98 Room Air Physical Exam: General-aaox3 Eyes-no scleral icterus ENT-mmm Neck-supple Lungs-+end expiratory wheezing Heart-distant heart sounds Abdomen-distended Extremities-+2 edema Neuro-nonfocal Current Inpatient Medications Medications (Trade) Dose Ordered Sig/Gin Route Start Time Stop Time Status Last Admin Dose Admin Acetaminophen (Tylenol Tab) 650 mg Q4H PRN PO 10/16/16 10:45 11/15/16 10:44 10/20/16 20:02 650 MG Al Hydrox/Mg Hydrox/Simethicone (Maalox Max Susp) 15 ml Q4H PRN PO 10/16/16 10:45 11/15/16 10:44 Magnesium Hydroxide (Milk Of Magnesia Susp) 30 ml Q12H PRN PO 10/16/16 10:45 11/15/16 10:44 Ondansetron HCl (Zofran Inj) 4 mg Q6H PRN IV 10/16/16 10:45 11/15/16 10:44 Polyethylene (Miralax Powder Packet) 17 gm DAILY PRN PO 10/16/16 10:45 11/15/16 10:44 Insulin Aspart (novoLOG ASPART) SLIDING SCALE If C... ACHS SC 10/16/16 11:00 11/15/16 10:59 10/26/16 08:23 5 UNITS Glucose (Glucose 40% Gel) 15-30 GRAMS 15 GRAMS... UD PRN PO 10/16/16 10:45 11/15/16 10:44 Glucose (Glucose Chew Tab) 4-8 Tablets 4 Tabl... UD PRN PO 10/16/16 10:45 11/15/16 10:44 Dextrose (Dextrose 50% 50ML Syringe) 25-50ML OF 50% DW IV FOR... UD PRN IV 10/16/16 10:45 11/15/16 10:44 Glucagon (Glucagon Inj) 1 mg UD PRN SQ 10/16/16 10:45 11/15/16 10:44 Atorvastatin Calcium (Lipitor Tab) 20 mg DAILY PO 10/17/16 09:00 11/16/16 08:59 10/26/16 07:37 20 MG Famotidine (Pepcid Tab) 20 mg QPM PO 10/16/16 21:00 11/15/16 20:59 10/25/16 20:29 20 MG Folic Acid (Folvite Tab) 1 mg DAILY PO 10/17/16 09:00 11/16/16 08:59 10/26/16 07:37 1 MG Pantoprazole Sodium (Protonix Tab) 40 mg DAILY PO 10/17/16 09:00 11/16/16 08:59 10/26/16 07:37 40 MG Insulin Glargine (Lantus Solostar Pen) 12 unit Q12 SC 10/17/16 21:00 11/16/16 20:59 10/26/16 08:24 12 UNIT Metoprolol Succinate (Toprol Xl Tab) 25 mg BID PO 10/20/16 20:00 11/17/16 09:59 10/25/16 20:28 25 MG Amoxicillin/ Clavulanate Potassium (Augmentin Tab) 500 mg BIDM PO 10/22/16 17:00 11/01/16 16:59 10/26/16 07:37 500 MG Nystatin (Mycostatin Susp) 5 ml QID PO 10/23/16 17:00 11/02/16 16:59 10/26/16 07:37 5 ML Albumin Human (Albumin 25%) 12.5 gm Q12 IV 10/24/16 10:30 10/27/16 08:59 10/26/16 08:54 12.5 GM Furosemide 40 mg/ Albumin Human 54 ml @ 54 mls/hr TID IV 10/25/16 14:00 10/26/16 19:59 10/26/16 07:37 54 MLS/HR Levalbuterol (Xopenex 1.25MG/ 0.5ML Neb) 1.25 mg Q6R PRN INH 10/25/16 15:00 11/24/16 14:59 Last 24 Hours Test 10/25/16 16:34 10/25/16 19:50 10/26/16 07:39 10/26/16 07:52 Bedside Glucose 188 mg/dl 223 mg/dl 113 mg/dl Sodium Level 148 mmol/L Potassium Level 3.5 mmol/L Chloride Level 115 mmol/L Carbon Dioxide Level 24 mmol/L Anion Gap 9.0 mmol/L Blood Urea Nitrogen 59 mg/dl Creatinine 2.70 mg/dl Est Creatinine Clear Calc Drug Dose 28.5 ml/min Estimated GFR () 23.7 Estimated GFR (Non- 20.4 BUN/Creatinine Ratio 21.8 Random Glucose 126 mg/dl Calcium Level 7.4 mg/dl Assessment & Plan ckd stage 4 with volume overload, creatinine down to 2.7 and will increase the lasix to 80 iv tid with the albumin to try to help mobilize the fluid better. appears to be tolerating the diuretics. creatinine actually improving with the albumin and likely mobilizing the third spaced fluid with the albumin and will be able to diurese better now.
[2016-10-26] MEDS ORDERED: ALBUMIN 25% 50 ML with FUROSEMIDE INJ 80 MG IV SCH ×2 (14:00)
--- NOTE | 2016-10-26 14:56 | Progress Note ---
Internal Med Progress Note Date of Service: Oct 26, 2016. Provider Documentation: SUBJECTIVE: Seen and examined at bedside. He subjectively feels his SOB is better. Denies any chest pain. No new complaints. OBJECTIVE: Vital Signs-as noted below Physical Exam: General Appearance:Moderately built and nourished Head: normocephalic, Atraumatic Eyes: normal inspection, EOMI, PERRL Neck: supple, Trachea midline Respiratory/Chest: Normal breath sounds, + B/L wheezing Cardiovascular: S1, S2, No murmur Abdomen/GI:Soft, Non tender, Bowel sounds present, + protuberant Extremities/Musculoskelatal:normal inspection, B/L LE edema Neurologic/Psych:AAOX3, grossly no focal neurological deficits Skin: normal color, warm Lab data as noted below. ASSESSMENT & PLAN: Patient is an 86 yr M, with PMH of CKD IV, Sinus node dysfunction s/p PPM, COPD , DM II, HTN, HLD who was recently discharged after being treated for volume overload was admitted and currently being treated for acute kidney injury, Rhabdomyolysis, Volume overload, bacteremia and possible pneumonia. BACTEREMIA (GROUP B STREP) : Likely secondary to CELLULITIS LLE / COMMUNITY ACQUIRED PNEUMONIA Afebrile, No leucocytosis S/P IV Zosyn/Vancomycin/Levofloxacin. Discontinued Levofloxacin as QTC prolonged. Changed IV Unasyn on 10/18 as per C/S results Currently being treated with Augmentin BID # Day 03/04 Repeat blood culture from 10/19/16: Negative CELLULITIS OF LLE: Improved Left LE; erythematous, warm to touch on presentation- improving Afebrile Doppler negative for DVT IV unasyn >>>augmentin ORAL THRUSH Continue Nystatin QID: Day 4 MAGEN ON CKD IV : Volume overload Baseline Cr: around 2.0 Likely secondary to rhabdomyolysis, volume depletion S/P IVF Cr:2.7 today improved Continue IV diuresis and albumin per Nephrology Avoid nephrotoxic agents. Appreciate neurology help. RHABDOMYOLYSIS: Improved Secondary to prolonged immobilization secondary to fall due to weakness CPK in on presentation, trending down. S/P IVF ? SYNCOPE : Likely Multifactorial: Infection/Bacteremia, Volume depletion, MAGEN on CKD IV leading to generalized weakness Work up- CT head/Cervical spine:Negative PT/OT ELEVATED TROPONIN: Troponin elevated 0.420 --> down to 0.276 , trending down Likely related to above- Rhabo, MAGEN, Bacteremia leading to demand ischemia EKG- Atrial fibrillation with LBBB, QTC 556- prolonged Discontinued Levofloxacin ABNORMAL CT SCAN ABDOMEN CT scan abd/pelvis shows multiple findings: 1. Peripancreatic edema with mild thickening of third portion of duodenum, which could be secondary to his cirrhosis. Lipase is negative, clinically no signs of pancreatitis 2. Cirrhosis with small ascites: Mildly elevated LFTs, INR 1.3. Reviewed his outpatient chart, no prior hx of cirrhosis but LFTs- slightly up, INR 1.3, Albumin 2.4. No prior known hx of cirrhosis or alcohol abuse per patient. 3. Possible 2.7 cm hypodense lesion within the right hepatic dome. However, this is difficult to characterize on this noncontrast study. Per patient, has had this in the past 4. Mild thickening of the sigmoid colon which likely represents a nonspecific colitis: Clinically less likely. Needs follow up as outpatient SINUS NODE DYSFUNCTION S/P PACEMAKER Paroxysmal A fib on EKG with prolonged QTC Avoid QTC prolonging drugs Amiodarone discontinued by Cardiology as not a good terminal worker candidate, sudeep with CT results ? cirrhosis Continue Increased metoprolol to 25 mg PO BID from 12.5 mg PO BID per cardiology. CHRONIC CHF WITH Preserved EF on Lasix Cardiology signed off. HYPERTENSIVE URGENCY: Resolved BP was >200/100 on admission, now down Continue Toprol 25 mg PO BID Also on diuretics COPD No signs of exacerbation BIPAP overnight Nebulizers PRN DM II HA1C: 6.2%, well controlled Continue Lantus 12 units BID, ISS DVT Px: SCDs: H/O MDS and thrombocytopenia Code Status: DNR DISPOSITION PT/OT Plan to discharge to [facility] when medically stable Vital Signs: Date Time Temp Pulse Resp B/P (MAP) Pulse Ox O2 Delivery O2 Flow Rate FiO2 10/26/16 08:00 Room Air 10/26/16 07:22 36.6 65 20 98/57 (71) 100 CPAP 10/26/16 00:00 CPAP 10/25/16 23:10 36.7 61 18 115/47 (69) 96 CPAP 10/25/16 21:42 63 103/61 (75) 10/25/16 20:22 65 113/60 (77) 97 Room Air 10/25/16 16:00 98 Room Air 10/25/16 15:33 36.5 69 18 103/58 (73) 98 Room Air Lab Results: Results Past 24 Hours Test 10/25/16 16:34 10/25/16 19:50 10/26/16 07:39 10/26/16 07:52 Range/Units Bedside Glucose 188 223 113 70-99 mg/dl Sodium Level 148 136-145 mmol/L Potassium Level 3.5 3.5-5.1 mmol/L Chloride Level 115 98-107 mmol/L Carbon Dioxide Level 24 21-32 mmol/L Anion Gap 9.0 3-11 mmol/L Blood Urea Nitrogen 59 7-18 mg/dl Creatinine 2.70 0.60-1.40 mg/dl Est Creatinine Clear Calc Drug Dose 28.5 ml/min Estimated GFR () 23.7 Estimated GFR (Non- 20.4 BUN/Creatinine Ratio 21.8 10-20 Random Glucose 126 70-99 mg/dl Calcium Level 7.4 8.5-10.1 mg/dl Test 10/26/16 11:24 Range/Units Bedside Glucose 198 70-99 mg/dl
[2016-10-26] MEDS: FAMOTIDINE 20 MG TAB PO SCH (20:12)
[2016-10-27 00:46] VITALS: BP 96/52; PULSE 66; TEMP 36.7; O2SAT 98
[2016-10-27 07:05] LABS: HEMATOCRIT 25.3 % (42-52); MEAN CELL VOLUME 89.4 fL (80-100); MEAN CORPUSCULAR HEMOGLOBIN 27.6 pg (25-34); MEAN CORPUSCULAR HGB CONC 30.8 g/dl (32-36); RED BLOOD COUNT 2.83 M/uL (4.7-6.1); WHITE BLOOD COUNT 4.09 K/uL (4.8-10.8)
[2016-10-27 07:24] LABS: MEAN PLATELET VOLUME 9.2 fL (7.4-10.4); PLATELET COUNT 62 K/uL (130-400)
[2016-10-27 07:27] LABS: BUN/CREATININE RATIO 21.7 (10-20); CALCIUM 7.7 mg/dl (8.5-10.1); CREATININE 2.5 mg/dl (0.60-1.40); POTASSIUM 3.4 mmol/L (3.5-5.1)
[2016-10-27 07:58] VITALS: BP 100/58; PULSE 75; TEMP 36.6; O2SAT 99
[2016-10-27 07:59] LABS: BASO % 0.2 %; BASO ABS # 0.01 K/uL (0-0.2); COMPLETE YES; EOS % 1.2 %; HYPERSEGMENTED POLYS 1+; IG% 0.2 %; LYMPH % 6.4 %; LYMPH ABS # 0.26 K/uL (1.2-3.4); MONO % 7.1 %; NEUT % 84.9 %; OVALOCYTES 1+
[2016-10-27] MEDS ORDERED: POTASSIUM CHLORIDE 20 MEQ TABCR PO STA (08:28)
--- NOTE | 2016-10-27 08:35 | Nephrology Progress Note ---
Nephrology Progress Note Date of Service: Oct 27, 2016. Subjective 86 yo male with izaiah which has resolved and breathing better. volume status improved with edema in legs getting better. still with slight end expiratory wheeze. pt feels better. pt agreeable to having keyes removed. pt is thirsty and has a sodium of 152 Objective Date Time Temp Pulse Resp B/P (MAP) Pulse Ox O2 Delivery O2 Flow Rate FiO2 10/27/16 07:58 36.6 75 20 100/58 (72) 99 CPAP 10/27/16 00:46 36.7 66 14 96/52 (67) 98 CPAP 10/27/16 00:00 CPAP 10/26/16 21:33 61 114/59 (77) 10/26/16 20:13 64 108/54 (72) 95 Room Air 10/26/16 20:11 109/43 (65) 10/26/16 16:00 96 Room Air 30 10/26/16 15:48 36.4 63 18 104/64 (77) 97 Room Air 10/26/16 15:21 70 95 Physical Exam: General-aaox3 Eyes-no scleral icterus ENT-mmm Neck-supple Lungs-+slight end expiratory wheeze at right base Heart-distant heart sounds Abdomen-distended Extremities-+1 edema Neuro-nonfocal Current Inpatient Medications Medications (Trade) Dose Ordered Sig/Gin Route Start Time Stop Time Status Last Admin Dose Admin Acetaminophen (Tylenol Tab) 650 mg Q4H PRN PO 10/16/16 10:45 11/15/16 10:44 10/20/16 20:02 650 MG Al Hydrox/Mg Hydrox/Simethicone (Maalox Max Susp) 15 ml Q4H PRN PO 10/16/16 10:45 11/15/16 10:44 Magnesium Hydroxide (Milk Of Magnesia Susp) 30 ml Q12H PRN PO 10/16/16 10:45 11/15/16 10:44 Ondansetron HCl (Zofran Inj) 4 mg Q6H PRN IV 10/16/16 10:45 11/15/16 10:44 Polyethylene (Miralax Powder Packet) 17 gm DAILY PRN PO 10/16/16 10:45 11/15/16 10:44 Insulin Aspart (novoLOG ASPART) SLIDING SCALE If C... ACHS SC 10/16/16 11:00 11/15/16 10:59 10/26/16 20:26 2 UNITS Glucose (Glucose 40% Gel) 15-30 GRAMS 15 GRAMS... UD PRN PO 10/16/16 10:45 11/15/16 10:44 Glucose (Glucose Chew Tab) 4-8 Tablets 4 Tabl... UD PRN PO 10/16/16 10:45 11/15/16 10:44 Dextrose (Dextrose 50% 50ML Syringe) 25-50ML OF 50% DW IV FOR... UD PRN IV 10/16/16 10:45 11/15/16 10:44 Glucagon (Glucagon Inj) 1 mg UD PRN SQ 10/16/16 10:45 11/15/16 10:44 Atorvastatin Calcium (Lipitor Tab) 20 mg DAILY PO 10/17/16 09:00 11/16/16 08:59 10/26/16 07:37 20 MG Famotidine (Pepcid Tab) 20 mg QPM PO 10/16/16 21:00 11/15/16 20:59 10/26/16 20:12 20 MG Folic Acid (Folvite Tab) 1 mg DAILY PO 10/17/16 09:00 11/16/16 08:59 10/26/16 07:37 1 MG Pantoprazole Sodium (Protonix Tab) 40 mg DAILY PO 10/17/16 09:00 11/16/16 08:59 10/26/16 07:37 40 MG Insulin Glargine (Lantus Solostar Pen) 12 unit Q12 SC 10/17/16 21:00 11/16/16 20:59 10/26/16 20:26 12 UNIT Metoprolol Succinate (Toprol Xl Tab) 25 mg BID PO 10/20/16 20:00 11/17/16 09:59 10/26/16 20:13 25 MG Amoxicillin/ Clavulanate Potassium (Augmentin Tab) 500 mg BIDM PO 10/22/16 17:00 11/01/16 16:59 10/26/16 17:48 500 MG Nystatin (Mycostatin Susp) 5 ml QID PO 10/23/16 17:00 11/02/16 16:59 10/26/16 20:12 5 ML Albumin Human (Albumin 25%) 12.5 gm Q12 IV 10/24/16 10:30 10/27/16 08:59 10/26/16 20:14 12.5 GM Levalbuterol (Xopenex 1.25MG/ 0.5ML Neb) 1.25 mg Q6R PRN INH 10/25/16 15:00 11/24/16 14:59 Last 24 Hours Test 10/26/16 11:24 10/26/16 16:26 10/26/16 19:37 10/27/16 06:50 Bedside Glucose 198 mg/dl 138 mg/dl 176 mg/dl White Blood Count 4.09 K/uL Red Blood Count 2.83 M/uL Hemoglobin 7.8 g/dL Hematocrit 25.3 % Mean Corpuscular Volume 89.4 fL Mean Corpuscular Hemoglobin 27.6 pg Mean Corpuscular Hemoglobin Concent 30.8 g/dl Platelet Count 62 K/uL Mean Platelet Volume 9.2 fL Neutrophils (%) (Auto) 84.9 % Lymphocytes (%) (Auto) 6.4 % Monocytes (%) (Auto) 7.1 % Eosinophils (%) (Auto) 1.2 % Basophils (%) (Auto) 0.2 % Neutrophils # (Auto) 3.47 K/uL Lymphocytes # (Auto) 0.26 K/uL Monocytes # (Auto) 0.29 K/uL Eosinophils # (Auto) 0.05 K/uL Basophils # (Auto) 0.01 K/uL RDW Standard Deviation 51.2 fL RDW Coefficient of Variation 15.7 % Immature Granulocyte % (Auto) 0.2 % Immature Granulocyte # (Auto) 0.01 K/uL Hypersegmented Polys 1+ Ovalocytes 1+ Sodium Level 152 mmol/L Potassium Level 3.4 mmol/L Chloride Level 118 mmol/L Carbon Dioxide Level 24 mmol/L Anion Gap 10.0 mmol/L Blood Urea Nitrogen 54 mg/dl Creatinine 2.50 mg/dl Est Creatinine Clear Calc Drug Dose 30.8 ml/min Estimated GFR () 26.0 Estimated GFR (Non- 22.4 BUN/Creatinine Ratio 21.7 Random Glucose 124 mg/dl Calcium Level 7.7 mg/dl Assessment & Plan ckd stage 4 with volume overload-creatinine has improved to 2.5. volume status has improved. leg edema improved to 1+ and appears to be breathing easier. to remove keyes catheter today. iv diuretics off now. would resume lasix 80mg po bid starting tomorrow. hypokalemia-k is low and giving 40meq of kdur today. Anemia-hg levels are trending down. if hg under 7, consider transfusion. hypernatremia-sodium levels are now in the 150s and pt is thirsty, to broaden fluid restriction up to 1500cc and holding diuretics today. continues on the iv albumin which will help with the hypernatremia. to restart oral diuretics tomorrow. once sodium under 150, ok from renal perspective to go to [facility].
[2016-10-27] MEDS: ATORVASTATIN 20 MG TAB PO SCH (09:05)
[2016-10-27] MEDS: METOPROLOL SUCC 25MG EXT REL TAB PO SCH ×2 (09:05→21:01)
[2016-10-27] MEDS: AMOXICILLIN/CLAVULANATE TAB 500 MG TAB PO SCH ×2 (09:06→18:12)
[2016-10-27] MEDS: NYSTATIN SUSP 500,000 U/5 ML UDC PO SCH ×4 (09:06→21:00)
[2016-10-27] MEDS: PANTOprazole SOD 40 MG TAB PO SCH (09:06)
[2016-10-27] MEDS: INSULIN GLARGINE SOLOSTAR 100 UNITS/ML 3 ML PEN SC SCH ×2 (09:09→21:08)
[2016-10-27] MEDS: INSULIN ASPART 100 UNITS/ML 3 ML PEN SC SCH ×4 (09:09→21:09)
[2016-10-27 15:48] VITALS: BP 121/73; PULSE 69; TEMP 36.3; O2SAT 97
[2016-10-27 16:00] VITALS: O2SAT 96
[2016-10-27 16:35] VITALS: PULSE 66; O2SAT 94
--- NOTE | 2016-10-27 17:34 | Progress Note ---
Internal Med Progress Note Date of Service: Oct 27, 2016. Provider Documentation: SUBJECTIVE: Seen and examined at bedside. States SOB is better, still has wheezing. Feels thirsty. Denies any chest pain. No new complaints. OBJECTIVE: Vital Signs-as noted below Physical Exam: General Appearance:Moderately built and nourished Head: normocephalic, Atraumatic Eyes: normal inspection, EOMI, PERRL Neck: supple, Trachea midline Respiratory/Chest: Normal breath sounds, + B/L wheezing Cardiovascular: S1, S2, No murmur Abdomen/GI:Soft, Non tender, Bowel sounds present, + protuberant Extremities/Musculoskelatal:normal inspection, B/L LE edema Neurologic/Psych:AAOX3, grossly no focal neurological deficits Skin: normal color, warm Lab data as noted below. ASSESSMENT & PLAN: Patient is an 86 yr M, with PMH of CKD IV, Sinus node dysfunction s/p PPM, COPD , DM II, HTN, HLD who was recently discharged after being treated for volume overload was admitted and currently being treated for acute kidney injury, Rhabdomyolysis, Volume overload, bacteremia and possible pneumonia. BACTEREMIA (GROUP B STREP) : Likely secondary to CELLULITIS LLE / COMMUNITY ACQUIRED PNEUMONIA Afebrile, No leucocytosis S/P IV Zosyn/Vancomycin/Levofloxacin. Discontinued Levofloxacin as QTC prolonged. Changed IV Unasyn on 10/18 as per C/S results Currently being treated with Augmentin BID # Day 04/04 Repeat blood culture from 10/19/16: Negative CELLULITIS OF LLE: Improved Left LE; erythematous, warm to touch on presentation- improving Afebrile Doppler negative for DVT IV unasyn >>>augmentin ORAL THRUSH Continue Nystatin QID: Day 09/25 MAGEN ON CKD IV : Volume overload Baseline Cr: around 2.0 Likely secondary to rhabdomyolysis, volume depletion S/P IVF Cr:2.5 today improved Diuresis held today Continue albumin per Nephrology Avoid nephrotoxic agents. Appreciate neurology help. Hypernatremia/Hypokalemia: Replaced potassium Liberalize fluid restriction to 1500cc Monitor electrolytes RHABDOMYOLYSIS: Improved Secondary to prolonged immobilization secondary to fall due to weakness CPK in on presentation, trending down. S/P IVF ? SYNCOPE : Likely Multifactorial: Infection/Bacteremia, Volume depletion, MAGEN on CKD IV leading to generalized weakness Work up- CT head/Cervical spine:Negative PT/OT ELEVATED TROPONIN: Troponin elevated 0.420 --> down to 0.276 , trending down Likely related to above- Rhabo, MAGEN, Bacteremia leading to demand ischemia EKG- Atrial fibrillation with LBBB, QTC 556- prolonged Discontinued Levofloxacin ABNORMAL CT SCAN ABDOMEN CT scan abd/pelvis shows multiple findings: 1. Peripancreatic edema with mild thickening of third portion of duodenum, which could be secondary to his cirrhosis. Lipase is negative, clinically no signs of pancreatitis 2. Cirrhosis with small ascites: Mildly elevated LFTs, INR 1.3. Reviewed his outpatient chart, no prior hx of cirrhosis but LFTs- slightly up, INR 1.3, Albumin 2.4. No prior known hx of cirrhosis or alcohol abuse per patient. 3. Possible 2.7 cm hypodense lesion within the right hepatic dome. However, this is difficult to characterize on this noncontrast study. Per patient, has had this in the past 4. Mild thickening of the sigmoid colon which likely represents a nonspecific colitis: Clinically less likely. Needs follow up as outpatient SINUS NODE DYSFUNCTION S/P PACEMAKER Paroxysmal A fib on EKG with prolonged QTC Avoid QTC prolonging drugs Amiodarone discontinued by Cardiology as not a good custodial candidate, sudeep with CT results ? cirrhosis Continue Increased metoprolol to 25 mg PO BID from 12.5 mg PO BID per cardiology. CHRONIC CHF WITH Preserved EF on Lasix Cardiology signed off. HYPERTENSIVE URGENCY: Resolved BP was >200/100 on admission, now down Continue Toprol 25 mg PO BID Also on diuretics COPD No signs of exacerbation BIPAP overnight Nebulizers PRN DM II HA1C: 6.2%, well controlled Continue Lantus 12 units BID, ISS DVT Px: SCDs: H/O MDS and thrombocytopenia Code Status: DNR DISPOSITION PT/OT Plan to [facility] when medically stable Vital Signs: Date Time Temp Pulse Resp B/P (MAP) Pulse Ox O2 Delivery O2 Flow Rate FiO2 10/27/16 16:35 66 22 94 Room Air 10/27/16 16:00 96 Room Air 10/27/16 15:48 36.3 69 18 121/73 (89) 97 Room Air 10/27/16 10:26 Room Air 10/27/16 07:58 36.6 75 20 100/58 (72) 99 CPAP 10/27/16 00:46 36.7 66 14 96/52 (67) 98 CPAP 10/27/16 00:00 CPAP 10/26/16 21:33 61 114/59 (77) 10/26/16 20:13 64 108/54 (72) 95 Room Air 10/26/16 20:11 109/43 (65) Lab Results: Results Past 24 Hours Test 10/26/16 19:37 10/27/16 06:50 10/27/16 08:04 10/27/16 11:38 Range/Units Bedside Glucose 176 145 219 70-99 mg/dl White Blood Count 4.09 4.8-10.8 K/uL Red Blood Count 2.83 4.7-6.1 M/uL Hemoglobin 7.8 14.0-18.0 g/dL Hematocrit 25.3 42-52 % Mean Corpuscular Volume 89.4 80-100 fL Mean Corpuscular Hemoglobin 27.6 25-34 pg Mean Corpuscular Hemoglobin Concent 30.8 32-36 g/dl Platelet Count 62 130-400 K/uL Mean Platelet Volume 9.2 7.4-10.4 fL Neutrophils (%) (Auto) 84.9 % Lymphocytes (%) (Auto) 6.4 % Monocytes (%) (Auto) 7.1 % Eosinophils (%) (Auto) 1.2 % Basophils (%) (Auto) 0.2 % Neutrophils # (Auto) 3.47 1.4-6.5 K/uL Lymphocytes # (Auto) 0.26 1.2-3.4 K/uL Monocytes # (Auto) 0.29 0.11-0.59 K/uL Eosinophils # (Auto) 0.05 0-0.5 K/uL Basophils # (Auto) 0.01 0-0.2 K/uL RDW Standard Deviation 51.2 36.4-46.3 fL RDW Coefficient of Variation 15.7 11.5-14.5 % Immature Granulocyte % (Auto) 0.2 % Immature Granulocyte # (Auto) 0.01 0.00-0.02 K/uL Hypersegmented Polys 1+ Ovalocytes 1+ Sodium Level 152 136-145 mmol/L Potassium Level 3.4 3.5-5.1 mmol/L Chloride Level 118 98-107 mmol/L Carbon Dioxide Level 24 21-32 mmol/L Anion Gap 10.0 3-11 mmol/L Blood Urea Nitrogen 54 7-18 mg/dl Creatinine 2.50 0.60-1.40 mg/dl Est Creatinine Clear Calc Drug Dose 30.8 ml/min Estimated GFR () 26.0 Estimated GFR (Non- 22.4 BUN/Creatinine Ratio 21.7 10-20 Random Glucose 124 70-99 mg/dl Calcium Level 7.7 8.5-10.1 mg/dl Test 10/27/16 17:23 Range/Units Bedside Glucose 175 70-99 mg/dl
[2016-10-27] MEDS: FAMOTIDINE 20 MG TAB PO SCH (21:01)
[2016-10-28 00:27] VITALS: BP 103/61; PULSE 68; TEMP 36.2; O2SAT 98
[2016-10-28 06:23] LABS: BUN/CREATININE RATIO 22.4 (10-20); CALCIUM 7.4 mg/dl (8.5-10.1); CREATININE 2.3 mg/dl (0.60-1.40); POTASSIUM 3.4 mmol/L (3.5-5.1)
[2016-10-28 07:20] VITALS: BP 116/66; PULSE 65; TEMP 36.4; O2SAT 100
--- NOTE | 2016-10-28 08:25 | Nephrology Progress Note ---
Nephrology Progress Note Date of Service: Oct 28, 2016. Subjective 86 yo male with izaiah which has resolved and breathing better. volume status improved with edema in legs getting better. no more wheezing. keyes removed yesterday and urinating well. Objective Date Time Temp Pulse Resp B/P (MAP) Pulse Ox O2 Delivery O2 Flow Rate FiO2 10/28/16 07:20 36.4 65 18 116/66 (83) 100 CPAP 10/28/16 00:27 36.2 68 14 103/61 (75) 98 CPAP 10/28/16 00:00 CPAP 10/27/16 16:35 66 22 94 Room Air 10/27/16 16:00 96 Room Air 10/27/16 15:48 36.3 69 18 121/73 (89) 97 Room Air 10/27/16 10:26 Room Air Physical Exam: General-aaox3 Eyes-no scleral icterus ENT-mmm Neck-supple Lungs-cta Heart-distant heart sounds Abdomen-distended Extremities-+1 edema Neuro-nonfocal Current Inpatient Medications Medications (Trade) Dose Ordered Sig/Gin Route Start Time Stop Time Status Last Admin Dose Admin Acetaminophen (Tylenol Tab) 650 mg Q4H PRN PO 10/16/16 10:45 11/15/16 10:44 10/20/16 20:02 650 MG Al Hydrox/Mg Hydrox/Simethicone (Maalox Max Susp) 15 ml Q4H PRN PO 10/16/16 10:45 11/15/16 10:44 Magnesium Hydroxide (Milk Of Magnesia Susp) 30 ml Q12H PRN PO 10/16/16 10:45 11/15/16 10:44 Ondansetron HCl (Zofran Inj) 4 mg Q6H PRN IV 10/16/16 10:45 11/15/16 10:44 Polyethylene (Miralax Powder Packet) 17 gm DAILY PRN PO 10/16/16 10:45 11/15/16 10:44 Insulin Aspart (novoLOG ASPART) SLIDING SCALE If C... ACHS SC 10/16/16 11:00 11/15/16 10:59 10/27/16 21:09 2 UNITS Glucose (Glucose 40% Gel) 15-30 GRAMS 15 GRAMS... UD PRN PO 10/16/16 10:45 11/15/16 10:44 Glucose (Glucose Chew Tab) 4-8 Tablets 4 Tabl... UD PRN PO 10/16/16 10:45 11/15/16 10:44 Dextrose (Dextrose 50% 50ML Syringe) 25-50ML OF 50% DW IV FOR... UD PRN IV 10/16/16 10:45 11/15/16 10:44 Glucagon (Glucagon Inj) 1 mg UD PRN SQ 10/16/16 10:45 11/15/16 10:44 Atorvastatin Calcium (Lipitor Tab) 20 mg DAILY PO 10/17/16 09:00 11/16/16 08:59 10/27/16 09:05 20 MG Famotidine (Pepcid Tab) 20 mg QPM PO 10/16/16 21:00 11/15/16 20:59 10/27/16 21:01 20 MG Folic Acid (Folvite Tab) 1 mg DAILY PO 10/17/16 09:00 11/16/16 08:59 10/27/16 09:05 1 MG Pantoprazole Sodium (Protonix Tab) 40 mg DAILY PO 10/17/16 09:00 11/16/16 08:59 10/27/16 09:06 40 MG Insulin Glargine (Lantus Solostar Pen) 12 unit Q12 SC 10/17/16 21:00 11/16/16 20:59 10/27/16 21:08 12 UNIT Metoprolol Succinate (Toprol Xl Tab) 25 mg BID PO 10/20/16 20:00 11/17/16 09:59 10/27/16 21:01 25 MG Amoxicillin/ Clavulanate Potassium (Augmentin Tab) 500 mg BIDM PO 10/22/16 17:00 11/01/16 16:59 10/27/16 18:12 500 MG Nystatin (Mycostatin Susp) 5 ml QID PO 10/23/16 17:00 11/02/16 16:59 10/27/16 21:00 5 ML Levalbuterol (Xopenex 1.25MG/ 0.5ML Neb) 1.25 mg Q6R PRN INH 10/25/16 15:00 11/24/16 14:59 10/27/16 16:35 1.25 MG Last 24 Hours Test 10/27/16 11:38 10/27/16 17:23 10/27/16 20:55 10/28/16 05:40 Bedside Glucose 219 mg/dl 175 mg/dl 169 mg/dl Sodium Level 151 mmol/L Potassium Level 3.4 mmol/L Chloride Level 117 mmol/L Carbon Dioxide Level 27 mmol/L Anion Gap 7.0 mmol/L Blood Urea Nitrogen 51 mg/dl Creatinine 2.30 mg/dl Est Creatinine Clear Calc Drug Dose 33.5 ml/min Estimated GFR () 28.7 Estimated GFR (Non- 24.8 BUN/Creatinine Ratio 22.4 Random Glucose 117 mg/dl Calcium Level 7.4 mg/dl Assessment & Plan ckd stage 4 with volume overload-creatinine continues to trend down. off iv diuretics. broadened fluid restriction yesterday, sodium improved from 152 to 151. will broaden fluid restriction more to 2 liters a day. will give 250cc of d5w slowly to help with the hypernatremia. discharged once medically cleared on lasix 80mg po bid. recheck bmp next week.
[2016-10-28] MEDS ORDERED: DEXTROSE 5% IV SCH (08:30)
[2016-10-28] MEDS: NYSTATIN SUSP 500,000 U/5 ML UDC PO SCH ×4 (08:30→20:52)
[2016-10-28] MEDS: ATORVASTATIN 20 MG TAB PO SCH (08:31)
[2016-10-28] MEDS: METOPROLOL SUCC 25MG EXT REL TAB PO SCH ×2 (08:31→20:52)
[2016-10-28] MEDS: PANTOprazole SOD 40 MG TAB PO SCH (08:31)
[2016-10-28] MEDS: AMOXICILLIN/CLAVULANATE TAB 500 MG TAB PO SCH ×2 (08:32→17:51)
[2016-10-28] MEDS: INSULIN ASPART 100 UNITS/ML 3 ML PEN SC SCH ×4 (08:43→20:59)
[2016-10-28] MEDS: INSULIN GLARGINE SOLOSTAR 100 UNITS/ML 3 ML PEN SC SCH ×2 (08:43→20:58)
[2016-10-28] MEDS ORDERED: DEXTROSE 5% 1000ML 1,000 ML IV ONE (09:30)
[2016-10-28 12:20] VITALS: O2SAT 81
[2016-10-28 12:29] VITALS: O2SAT 95
--- NOTE | 2016-10-28 14:37 | Progress Note ---
Internal Med Progress Note Date of Service: Oct 28, 2016. Provider Documentation: SUBJECTIVE: Seen and examined at bedside. States feeling better today. SOB and wheezing is improved. Denies any chest pain. No new complaints. Awaiting for placement. Saturating well on RA. OBJECTIVE: Vital Signs-as noted below Physical Exam: General Appearance:Moderately built and nourished Head: normocephalic, Atraumatic Eyes: normal inspection, EOMI, PERRL Neck: supple, Trachea midline Respiratory/Chest: Normal breath sounds, + B/L wheezing Cardiovascular: S1, S2, No murmur Abdomen/GI:Soft, Non tender, Bowel sounds present, + protuberant Extremities/Musculoskelatal:normal inspection, B/L LE edema Neurologic/Psych:AAOX3, grossly no focal neurological deficits Skin: normal color, warm Lab data as noted below. ASSESSMENT & PLAN: Patient is an 86 yr M, with PMH of CKD IV, Sinus node dysfunction s/p PPM, COPD , DM II, HTN, HLD who was recently discharged after being treated for volume overload was admitted and currently being treated for acute kidney injury, Rhabdomyolysis, Volume overload, bacteremia and possible pneumonia. BACTEREMIA (GROUP B STREP) : Likely secondary to CELLULITIS LLE / COMMUNITY ACQUIRED PNEUMONIA Afebrile, No leucocytosis S/P IV Zosyn/Vancomycin/Levofloxacin. Discontinued Levofloxacin as QTC prolonged. Changed IV Unasyn on 10/18 as per C/S results Currently being treated with Augmentin BID # Day 05/04 Repeat blood culture from 10/19/16: Negative CELLULITIS OF LLE: Improved Left LE; erythematous, warm to touch on presentation- improving Afebrile Doppler negative for DVT IV unasyn >>>augmentin ORAL THRUSH Continue Nystatin QID: Day 6 MAGEN ON CKD IV : Volume overload Baseline Cr: around 2.0 Likely secondary to rhabdomyolysis, volume depletion S/P IVF Cr:2.3 today Diuresis held, plan to resume on discharge Continue albumin per Nephrology Avoid nephrotoxic agents. Appreciate Nephrology help. Hypernatremia/Hypokalemia: Liberalize fluid restriction to 2000cc Monitor electrolytes Receiving D5W to correct hypernatremia per Nephrology RHABDOMYOLYSIS: Resolved Secondary to prolonged immobilization secondary to fall due to weakness CPK in on presentation, trending down. S/P IVF ? SYNCOPE : Likely Multifactorial: Infection/Bacteremia, Volume depletion, MAGEN on CKD IV leading to generalized weakness Work up- CT head/Cervical spine:Negative PT/OT ELEVATED TROPONIN: Troponin elevated 0.420 --> down to 0.276 , trending down Likely related to above- Rhabo, MAGEN, Bacteremia leading to demand ischemia EKG- Atrial fibrillation with LBBB, QTC 556- prolonged Discontinued Levofloxacin ABNORMAL CT SCAN ABDOMEN CT scan abd/pelvis shows multiple findings: 1. Peripancreatic edema with mild thickening of third portion of duodenum, which could be secondary to his cirrhosis. Lipase is negative, clinically no signs of pancreatitis 2. Cirrhosis with small ascites: Mildly elevated LFTs, INR 1.3. Reviewed his outpatient chart, no prior hx of cirrhosis but LFTs- slightly up, INR 1.3, Albumin 2.4. No prior known hx of cirrhosis or alcohol abuse per patient. 3. Possible 2.7 cm hypodense lesion within the right hepatic dome. However, this is difficult to characterize on this noncontrast study. Per patient, has had this in the past 4. Mild thickening of the sigmoid colon which likely represents a nonspecific colitis: Clinically less likely. Needs follow up as outpatient SINUS NODE DYSFUNCTION S/P PACEMAKER Paroxysmal A fib on EKG with prolonged QTC Avoid QTC prolonging drugs Amiodarone discontinued by Cardiology as not a good halfway candidate, sudeep with CT results ? cirrhosis Continue Increased metoprolol to 25 mg PO BID from 12.5 mg PO BID per cardiology. CHRONIC CHF WITH Preserved EF on Lasix Cardiology signed off. HYPERTENSIVE URGENCY: Resolved BP was >200/100 on admission, now down Continue Toprol 25 mg PO BID Also on diuretics COPD No signs of exacerbation BIPAP overnight Nebulizers PRN DM II HA1C: 6.2%, well controlled Continue Lantus 12 units BID, ISS DVT Px: SCDs: H/O MDS and thrombocytopenia Code Status: DNR DISPOSITION PT/OT Plan to discharge to [facility] when Sodium levels better Needs BMP rechecked next week upon discharge Vital Signs: Date Time Temp Pulse Resp B/P (MAP) Pulse Ox O2 Delivery O2 Flow Rate FiO2 10/28/16 12:29 95 2.0 10/28/16 12:20 81 Room Air 10/28/16 08:00 Room Air 10/28/16 07:20 36.4 65 18 116/66 (83) 100 CPAP 10/28/16 00:27 36.2 68 14 103/61 (75) 98 CPAP 10/28/16 00:00 CPAP 10/27/16 16:35 66 22 94 Room Air 10/27/16 16:00 96 Room Air 10/27/16 15:48 36.3 69 18 121/73 (89) 97 Room Air Lab Results: Results Past 24 Hours Test 10/27/16 17:23 10/27/16 20:55 10/28/16 05:40 10/28/16 07:40 Range/Units Bedside Glucose 175 169 120 70-99 mg/dl Sodium Level 151 136-145 mmol/L Potassium Level 3.4 3.5-5.1 mmol/L Chloride Level 117 98-107 mmol/L Carbon Dioxide Level 27 21-32 mmol/L Anion Gap 7.0 3-11 mmol/L Blood Urea Nitrogen 51 7-18 mg/dl Creatinine 2.30 0.60-1.40 mg/dl Est Creatinine Clear Calc Drug Dose 33.5 ml/min Estimated GFR () 28.7 Estimated GFR (Non- 24.8 BUN/Creatinine Ratio 22.4 10-20 Random Glucose 117 70-99 mg/dl Calcium Level 7.4 8.5-10.1 mg/dl Test 10/28/16 11:15 Range/Units Bedside Glucose 203 70-99 mg/dl
[2016-10-28 14:47] VITALS: O2SAT 99
[2016-10-28 16:05] VITALS: BP 110/58; PULSE 66; TEMP 36.6; O2SAT 94
[2016-10-28 16:56] LABS: HEMATOCRIT 25.8 % (42-52)
[2016-10-28] MEDS: FAMOTIDINE 20 MG TAB PO SCH (20:52)
[2016-10-29 00:02] VITALS: BP 116/92; PULSE 70; TEMP 36.5; O2SAT 92
[2016-10-29 08:04] VITALS: BP 106/56; PULSE 65; TEMP 36.5; O2SAT 100
[2016-10-29 08:19] LABS: BLOOD UREA NITROGEN 44 mg/dl (7-18); CALCIUM 7.5 mg/dl (8.5-10.1); CARBON DIOXIDE 24 mmol/L (21-32); CHLORIDE 117 mmol/L (98-107); GLUCOSE 122 mg/dl (70-99); SODIUM 149 mmol/L (136-145)
[2016-10-29] MEDS: ATORVASTATIN 20 MG TAB PO SCH (08:51)
[2016-10-29] MEDS: AMOXICILLIN/CLAVULANATE TAB 500 MG TAB PO SCH ×2 (08:51→17:57)
[2016-10-29] MEDS: NYSTATIN SUSP 500,000 U/5 ML UDC PO SCH ×4 (08:52→20:41)
[2016-10-29] MEDS: METOPROLOL SUCC 25MG EXT REL TAB PO SCH ×2 (08:52→20:41)
[2016-10-29] MEDS: PANTOprazole SOD 40 MG TAB PO SCH (08:52)
[2016-10-29] MEDS: INSULIN GLARGINE SOLOSTAR 100 UNITS/ML 3 ML PEN SC SCH ×2 (09:33→20:48)
[2016-10-29] MEDS: INSULIN ASPART 100 UNITS/ML 3 ML PEN SC SCH ×4 (09:33→20:47)
--- NOTE | 2016-10-29 14:41 | Progress Note ---
Internal Med Progress Note Date of Service: Oct 29, 2016. Provider Documentation: SUBJECTIVE: Seen and examined at bedside. Doing well today. Offers no new complaints. Denies chest pain, SOB. Clinically no significant change. OBJECTIVE: Vital Signs-as noted below Physical Exam: General Appearance:Moderately built and nourished Head: normocephalic, Atraumatic Eyes: normal inspection, EOMI, PERRL Neck: supple, Trachea midline Respiratory/Chest: Normal breath sounds, + B/L wheezing Cardiovascular: S1, S2, No murmur Abdomen/GI:Soft, Non tender, Bowel sounds present, + protuberant Extremities/Musculoskelatal:normal inspection, B/L LE edema Neurologic/Psych:AAOX3, grossly no focal neurological deficits Skin: normal color, warm Lab data as noted below. ASSESSMENT & PLAN: Patient is an 86 yr M, with PMH of CKD IV, Sinus node dysfunction s/p PPM, COPD , DM II, HTN, HLD who was recently discharged after being treated for volume overload was admitted and currently being treated for acute kidney injury, Rhabdomyolysis, Volume overload, bacteremia and possible pneumonia. BACTEREMIA (GROUP B STREP) : Likely secondary to CELLULITIS LLE / COMMUNITY ACQUIRED PNEUMONIA Afebrile, No leucocytosis S/P IV Zosyn/Vancomycin/Levofloxacin. Discontinued Levofloxacin as QTC prolonged. Changed IV Unasyn on 10/18 as per C/S results Currently being treated with Augmentin BID # Day Repeat blood culture from 10/19/16: Negative CELLULITIS OF LLE: Improved Left LE; erythematous, warm to touch on presentation- improving Afebrile Doppler negative for DVT IV unasyn >>>augmentin ORAL THRUSH Continue Nystatin QID: Day 11/25 MAGEN ON CKD IV : Volume overload Baseline Cr: around 2.0 Likely secondary to rhabdomyolysis, volume depletion S/P IVF Cr:2.1 today Diuresis held, plan to resume on discharge Continue albumin per Nephrology Avoid nephrotoxic agents. Appreciate Nephrology help. Hypernatremia/Hypokalemia: Liberalize fluid restriction to 2000cc Monitor electrolytes S/P D5W for hypernatremia yesterday Sodium levels better:149 RHABDOMYOLYSIS: Resolved Secondary to prolonged immobilization secondary to fall due to weakness CPK in on presentation, trending down. S/P IVF ? SYNCOPE : Likely Multifactorial: Infection/Bacteremia, Volume depletion, MAGEN on CKD IV leading to generalized weakness Work up- CT head/Cervical spine:Negative PT/OT ELEVATED TROPONIN: Troponin elevated 0.420 --> down to 0.276 , trending down Likely related to above- Rhabo, MAGEN, Bacteremia leading to demand ischemia EKG- Atrial fibrillation with LBBB, QTC 556- prolonged Discontinued Levofloxacin ABNORMAL CT SCAN ABDOMEN CT scan abd/pelvis shows multiple findings: 1. Peripancreatic edema with mild thickening of third portion of duodenum, which could be secondary to his cirrhosis. Lipase is negative, clinically no signs of pancreatitis 2. Cirrhosis with small ascites: Mildly elevated LFTs, INR 1.3. Reviewed his outpatient chart, no prior hx of cirrhosis but LFTs- slightly up, INR 1.3, Albumin 2.4. No prior known hx of cirrhosis or alcohol abuse per patient. 3. Possible 2.7 cm hypodense lesion within the right hepatic dome. However, this is difficult to characterize on this noncontrast study. Per patient, has had this in the past 4. Mild thickening of the sigmoid colon which likely represents a nonspecific colitis: Clinically less likely. 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 cirrhosis Continue Increased metoprolol to 25 mg PO BID from 12.5 mg PO BID per cardiology. CHRONIC CHF WITH Preserved EF on Lasix Cardiology signed off. HYPERTENSIVE URGENCY: Resolved BP was >200/100 on admission, now down Continue Toprol 25 mg PO BID Also on diuretics COPD No signs of exacerbation BIPAP overnight Nebulizers PRN DM II HA1C: 6.2%, well controlled Continue Lantus 12 units BID, ISS DVT Px: SCDs: H/O MDS and thrombocytopenia Code Status: DNR DISPOSITION PT/OT Plan to discharge to [facility] tomorrow if stable Needs BMP rechecked next week upon discharge Vital Signs: Date Time Temp Pulse Resp B/P (MAP) Pulse Ox O2 Delivery O2 Flow Rate FiO2 10/29/16 16:22 Room Air 10/29/16 15:43 36.1 72 22 118/74 (89) 95 Room Air 10/29/16 08:11 Room Air 10/29/16 08:04 36.5 65 18 106/56 (73) 100 CPAP 10/29/16 01:13 Room Air 10/29/16 00:02 36.5 70 16 116/92 (100) 92 BiPAP 10/28/16 20:07 Room Air Lab Results: Results Past 24 Hours Test 10/28/16 20:23 10/29/16 06:43 10/29/16 07:49 10/29/16 08:30 Range/Units Bedside Glucose 166 132 70-99 mg/dl Sodium Level 149 136-145 mmol/L Potassium Level 3.5 3.5-5.1 mmol/L Chloride Level 117 98-107 mmol/L Carbon Dioxide Level 24 21-32 mmol/L Anion Gap 8.0 3-11 mmol/L Blood Urea Nitrogen 44 7-18 mg/dl Creatinine 2.10 0.60-1.40 mg/dl Est Creatinine Clear Calc Drug Dose 36.7 ml/min Estimated GFR () 32.1 Estimated GFR (Non- 27.7 BUN/Creatinine Ratio 21.0 10-20 Random Glucose 122 70-99 mg/dl Calcium Level 7.5 8.5-10.1 mg/dl Test 10/29/16 11:24 Range/Units Bedside Glucose 230 70-99 mg/dl
[2016-10-29 15:43] VITALS: BP 118/74; PULSE 72; TEMP 36.1; O2SAT 95
[2016-10-29] MEDS: FAMOTIDINE 20 MG TAB PO SCH (20:41)
[2016-10-30 00:39] VITALS: BP 103/59; PULSE 64; TEMP 36.4; O2SAT 93
[2016-10-30 06:36] LABS: BUN/CREATININE RATIO 22.6 (10-20); CALCIUM 7.4 mg/dl (8.5-10.1); POTASSIUM 3.4 mmol/L (3.5-5.1)
[2016-10-30 07:13] VITALS: BP 103/60; PULSE 69; TEMP 36.6; O2SAT 98
[2016-10-30] MEDS: ATORVASTATIN 20 MG TAB PO SCH (08:08)
[2016-10-30] MEDS: AMOXICILLIN/CLAVULANATE TAB 500 MG TAB PO SCH (08:09)
[2016-10-30] MEDS: METOPROLOL SUCC 25MG EXT REL TAB PO SCH (08:09)
[2016-10-30] MEDS: NYSTATIN SUSP 500,000 U/5 ML UDC PO SCH ×2 (08:09→11:32)
[2016-10-30] MEDS: PANTOprazole SOD 40 MG TAB PO SCH (08:09)
[2016-10-30] MEDS: INSULIN ASPART 100 UNITS/ML 3 ML PEN SC SCH ×2 (08:41→13:00)
[2016-10-30] MEDS: INSULIN GLARGINE SOLOSTAR 100 UNITS/ML 3 ML PEN SC SCH (08:42)
[2016-10-30] MEDS ORDERED: FUROSEMIDE 40 MG TAB PO SCH (11:30)
--- NOTE | 2016-10-30 13:59 | PROGRESS NOTE ---
DATE: 10/30/2016 SUBJECTIVE: 86-year-old male with MAGEN, which has resolved but continues to have issues with shortness of breath, edema as well as high serum sodium. He still has a lot of edema but is getting somewhat better. He feels his breathing is slightly better than before. No new issues overnight. PHYSICAL EXAMINATION: VITAL SIGNS: Blood pressure 103/60, 98% on room air, pulse rate 69, temperature 36.6. HEENT: Mucous membranes moist. NECK: Supple, no jugular venous distention. LUNGS: With bilateral expiratory wheezing. HEART: Distant heart sounds. ABDOMEN: Distended. EXTREMITIES: 2+ edema. NEUROLOGIC: Awake, alert, oriented x3. ASSESSMENT AND PLAN: 1. Acute kidney injury on chronic kidney disease stage 4. At this time his renal labs is at baseline. Serum sodium is still high at 149, but is trending down slowly and he is allowed to drink at this time, so we should hopefully get his serum sodium down even further. He has been restarted on Lasix and will follow renal labs. Creat is better today. MTDD
--- NOTE | 2016-10-30 14:15 | DIAGNOSTIC IMAGING REPORT ---
CHEST ONE VIEW PORTABLE CLINICAL HISTORY: Wheezing COMPARISON STUDY: 10/20/2016 FINDINGS: The heart remains enlarged. There are postsurgical changes of a midline sternotomy. There is a left subclavian dual-chamber central venous pacemaker present. There is aortic tortuosity. There is no failure. There are left basal airspace opacities, atelectatic versus inflammatory. A linear opacity in the right perihilar region is felt to be atelectatic. No pleural effusions are visualized.[ IMPRESSION: 1. Cardiomegaly 2. No evidence of failure 3. Left basilar airspace opacities, atelectatic versus inflammatory/infectious. Electronically signed by: Gurinder Medina M.D. 10/30/2016 2:14 PM Dictated Date/Time: 10/30/2016 2:12 PM
--- NOTE | 2016-10-30 14:27 | Progress Note ---
Internal Med Progress Note Date of Service: Oct 30, 2016. Provider Documentation: SUBJECTIVE: Seen and examined at bedside. Had mild wheezing this morning but currently feels well. Denies chest pain, SOB. Offers no new complaints. CXR today showed no signs of heart failure. OBJECTIVE: Vital Signs-as noted below Physical Exam: General Appearance:Moderately built and nourished Head: normocephalic, Atraumatic Eyes: normal inspection, EOMI, PERRL Neck: supple, Trachea midline Respiratory/Chest: Decreased breath sounds, CTA Cardiovascular: S1, S2, No murmur Abdomen/GI:Soft, Non tender, Bowel sounds present, + protuberant Extremities/Musculoskelatal:normal inspection, B/L LE edema Neurologic/Psych:AAOX3, grossly no focal neurological deficits Skin: normal color, warm Lab data as noted below. ASSESSMENT & PLAN: Patient is an 86 yr M, with PMH of CKD IV, Sinus node dysfunction s/p PPM, COPD , DM II, HTN, HLD who was recently discharged after being treated for volume overload was admitted and currently being treated for acute kidney injury, Rhabdomyolysis, Volume overload, bacteremia and possible pneumonia. BACTEREMIA (GROUP B STREP) : Likely secondary to CELLULITIS LLE / COMMUNITY ACQUIRED PNEUMONIA Afebrile, No leucocytosis S/P IV Zosyn/Vancomycin/Levofloxacin. Discontinued Levofloxacin as QTC prolonged. Changed IV Unasyn on 10/18 as per C/S results Currently being treated with Augmentin BID # Day Repeat blood culture from 10/19/16: Negative CELLULITIS OF LLE: Improved Left LE; erythematous, warm to touch on presentation- improving Afebrile Doppler negative for DVT IV unasyn >>>augmentin ORAL THRUSH Completed Nystatin QID: Day 11/25 MAGEN ON CKD IV : Volume overload Baseline Cr: around 2.0 Likely secondary to rhabdomyolysis, volume depletion S/P IVF Cr:2.0 today Diuresis resumed today S/P albumin Avoid nephrotoxic agents. Appreciate Nephrology help. Hypernatremia/Hypokalemia: Liberalize fluid restriction to 2000cc Monitor electrolytes S/P D5W for hypernatremia Sodium levels better:149 Monitor RHABDOMYOLYSIS: Resolved Secondary to prolonged immobilization secondary to fall due to weakness CPK in 1999s on presentation, trending down. S/P IVF ? SYNCOPE : Likely Multifactorial: Infection/Bacteremia, Volume depletion, MAGEN on CKD IV leading to generalized weakness Work up- CT head/Cervical spine:Negative PT/OT ELEVATED TROPONIN: Troponin elevated 0.420 --> down to 0.276 , trending down Likely related to above- Rhabo, MAGEN, Bacteremia leading to demand ischemia EKG- Atrial fibrillation with LBBB, QTC 556- prolonged Discontinued Levofloxacin ABNORMAL CT SCAN ABDOMEN CT scan abd/pelvis shows multiple findings: 1. Peripancreatic edema with mild thickening of third portion of duodenum, which could be secondary to his cirrhosis. Lipase is negative, clinically no signs of pancreatitis 2. Cirrhosis with small ascites: Mildly elevated LFTs, INR 1.3. Reviewed his outpatient chart, no prior hx of cirrhosis but LFTs- slightly up, INR 1.3, Albumin 2.4. No prior known hx of cirrhosis or alcohol abuse per patient. 3. Possible 2.7 cm hypodense lesion within the right hepatic dome. However, this is difficult to characterize on this noncontrast study. Per patient, has had this in the past 4. Mild thickening of the sigmoid colon which likely represents a nonspecific colitis: Clinically less likely. 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 cirrhosis Continue Increased metoprolol to 25 mg PO BID from 12.5 mg PO BID per cardiology. CHRONIC CHF WITH Preserved EF on Lasix Cardiology signed off. HYPERTENSIVE URGENCY: Resolved BP was >200/100 on admission, now down Continue Toprol 25 mg PO BID Also on diuretics COPD No signs of exacerbation BIPAP overnight Nebulizers PRN DM II HA1C: 6.2%, well controlled Continue Lantus 12 units BID, ISS DVT Px: SCDs: H/O MDS and thrombocytopenia Code Status: DNR DISPOSITION PT/OT Plan to discharge to [facility] Follow up with on 11/02/16 at 3:15pm Follow up with your Provider Contracting Consultant as outpatient as advised Follow up with Gastroenterology as outpatient. CT Abdomen suggestive of Cirrhosis with splenomegaly and Possible 2.7 cm hypodense lesion within the right hepatic dome Get blood test (BMP) in 1 week ad advised and follow up with your Provider Contracting Consultant Vital Signs: Date Time Temp Pulse Resp B/P (MAP) Pulse Ox O2 Delivery O2 Flow Rate FiO2 10/30/16 07:50 Room Air 10/30/16 07:13 36.6 69 22 103/60 (74) 98 BiPAP 10/30/16 01:33 Room Air 10/30/16 00:39 36.4 64 17 103/59 (74) 93 CPAP 2.0 10/29/16 19:28 Room Air 10/29/16 16:22 Room Air 10/29/16 15:43 36.1 72 22 118/74 (89) 95 Room Air Lab Results: Results Past 24 Hours Test 10/29/16 16:36 10/29/16 20:05 10/30/16 05:30 10/30/16 07:27 Range/Units Bedside Glucose 165 179 124 70-99 mg/dl Sodium Level 149 136-145 mmol/L Potassium Level 3.4 3.5-5.1 mmol/L Chloride Level 117 98-107 mmol/L Carbon Dioxide Level 24 21-32 mmol/L Anion Gap 8.0 3-11 mmol/L Blood Urea Nitrogen 45 7-18 mg/dl Creatinine 2.00 0.60-1.40 mg/dl Est Creatinine Clear Calc Drug Dose 38.5 ml/min Estimated GFR () 34.0 Estimated GFR (Non- 29.3 BUN/Creatinine Ratio 22.6 10-20 Random Glucose 112 70-99 mg/dl Calcium Level 7.4 8.5-10.1 mg/dl Test 10/30/16 11:30 Range/Units Bedside Glucose 205 70-99 mg/dl
[2016-10-30] MEDS ORDERED: TPRSR25 PO (15:00)
--- NOTE | 2016-10-30 15:04 | Discharge Summary ---
Discharge Summary Date of Service Oct 30, 2016. Discharge Summary Admission Date: October 16, 2016 at 10:54 Discharge Date: Oct 30, 2016 Discharge Disposition: Rehab Principal Diagnosis: Bacteremia, MAGEN on CKD, Rhabdomyolysis, Volume overload, leg Cellulitis Procedures: CT head: 1. No acute intracranial findings. 2. No calvarial fracture. Venous Doppler: No DVT within the right or left lower extremity. CT chest: 1. Respiratory motion artifact. 2. Patchy densities within the bilateral lower lobes. This favors atelectasis. However, a pneumonia could also have a similar appearance. 3. Cardiomegaly. 4. Faint groundglass densities within the right upper lobe posteriorly. This may be due to developing congestive change versus a pneumonia. CT ABD: 1. Peripancreatic edema. There is also mild thickening at the third portion of the duodenum. This is most likely secondary to the patient's cirrhosis and edematous state. However, an acute pancreatitis could also have a similar appearance. Recommend correlation with pancreatic enzymes. 2. Cirrhosis with splenomegaly and a small amount of ascites. 3. Possible 2.7 cm hypodense lesion within the right hepatic dome. However, this is difficult to characterize on this noncontrast study. 4. Mild thickening of the sigmoid colon which likely represents a nonspecific colitis. 5. Additional findings as described above. CT neck: 1. No acute cervical spine fracture or subluxation. 2. 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 Consultations: Cardiology, Nephrology Pending Studies/Follow-Up: Follow up with on 11/02/16 at 3:15pm Follow up with your Bee Breeder as outpatient as advised Follow up with Gastroenterology as outpatient. CT Abdomen suggestive of Cirrhosis with splenomegaly and Possible 2.7 cm hypodense lesion within the right hepatic dome Get blood test (BMP) in 1 week ad advised and follow up with your Bee Breeder Medication Reconciliation New Medications: Metoprolol Succinate (Metoprolol Succinate ER) 25 Mg Tabcr 25 MG PO BID for 30 Days, #60 Continued Medications: Acetaminophen Tab (Tylenol) 325 Mg Tab 650 MG PO Q4 PRN for Fever, TAB NOT TO EXCEED 3000MG APAP/24HR Atorvastatin (Lipitor) 20 Mg Tab 20 MG PO DAILY, TAB Famotidine (Pepcid) 20 Mg Tab 20 MG PO QPM, TAB Fluticasone Propionate (Nasal) (Flonase Allergy Relief) 50 Mcg/Act Spr 2 SPRAY MAGAN DAILY Folic Acid (Folic Acid) 1 Mg Tab 1 MG PO DAILY Furosemide (Furosemide) 40 Mg Tab 80 MG PO BID for 10 Days, #40 TABS Insulin Glargine (Lantus) 100 Unit/Ml Inj 24 UNITS SC HS for 30 Days, #1 VIAL Nitroglycerin (Nitrostat) 0.4 Mg Tab 0.4 MG UT PRN, BTL Pantoprazole (Protonix) 40 Mg Tab 40 MG PO DAILY, #30 TAB Potassium Ext Rel (Klor-Con) 20 Meq Tabcr 20 MEQ PO BID, TAB Repaglinide (Prandin) 0.5 Mg Tab 2 MG PO AC, TAB Sitagliptin Phosphate (Januvia) 50 Mg Tab 50 MG PO DAILY, TAB Discontinued Medications: Amiodarone HCl (Amiodarone HCl) 200 Mg Tab 200 MG PO DAILY, TAB Admission Information HPI (per Admitting provider): This is a 86 year old male with a PMH of CKD stage IV, sinus node dysfunction s/ p PPM, COPD, DM2, HTN, HLD - recent hospital admission in August 2016 with volume overload. At that time, he was given albumin + Lasix and fluid from legs improved; he was discharged with a creatinine of 2.3. He was discharged home and states he was doing well. He was seen by Dr. Chong of nephrology on 10/12 and was doing well - his only complaint was a cough with some sputum production , but otherwise doing well. Yesterday he went grocery shopping with no issues. At night, he states he vomited and became very weak. He had more of the coughing issue - then when he went to get up, he was too weak to stand and he fell down. He states he could not get to a phone so he stayed on the floor and fell asleep - he finally got to a phone this morning and he was brought in to the ER. He was noted to have worsening kidney function, elevated CPK; his troponin was noted to be elevated. His current complaints include weakness, bilateral lower extremity pain, productive cough and shortness of breath. He has his bipap on, and he feels better in terms of shortness of breath. Denies chest pain. Physical Exam (per Admitting): General Appearance: + mild distress (mild to moderate distress; bipap on; no respiratory distress; weakness, uncomfortable) Head: normocephalic, atraumatic Respiratory/Chest: no respiratory distress, no accessory muscle use, + decreased breath sounds Cardiovascular: no murmur, + tachycardia Abdomen/GI: normal bowel sounds, non tender, + distended Back: no CVA tenderness, no muscle spasm Extremities/Musculoskelatal: + pedal edema, + swelling, + pertinent finding (+1-2 pitting edema b/l LE, venous stasis dermatitis; erythematous, warm to touch of the LLE) Neurologic/Psych: alert Hospital Course Patient is an 86 yr M, with PMH of CKD IV, Sinus node dysfunction s/p PPM, COPD , DM II, HTN, HLD who was recently discharged after being treated for volume overload was admitted and currently being treated for acute kidney injury, Rhabdomyolysis, Volume overload, bacteremia and possible pneumonia. BACTEREMIA (GROUP B STREP) : Likely secondary to CELLULITIS LLE / COMMUNITY ACQUIRED PNEUMONIA Afebrile, No leucocytosis S/P IV Zosyn/Vancomycin/Levofloxacin. Discontinued Levofloxacin as QTC prolonged. Changed IV Unasyn on 10/18 as per C/S results Currently being treated with Augmentin BID # Day Repeat blood culture from 10/19/16: Negative CELLULITIS OF LLE: Improved Left LE; erythematous, warm to touch on presentation- improving Afebrile Doppler negative for DVT IV unasyn >>>augmentin ORAL THRUSH Completed Nystatin QID: Day 11/25 MAGEN ON CKD IV : Volume overload Baseline Cr: around 2.0 Likely secondary to rhabdomyolysis, volume depletion S/P IVF Cr:2.0 today Diuresis resumed today S/P albumin Avoid nephrotoxic agents. Appreciate Nephrology help. Hypernatremia/Hypokalemia: Liberalize fluid restriction to 2000cc Monitor electrolytes S/P D5W for hypernatremia Sodium levels better:149 Monitor RHABDOMYOLYSIS: Resolved Secondary to prolonged immobilization secondary to fall due to weakness CPK in on presentation, trending down. S/P IVF ? SYNCOPE : Likely Multifactorial: Infection/Bacteremia, Volume depletion, MAGEN on CKD IV leading to generalized weakness Work up- CT head/Cervical spine:Negative PT/OT ELEVATED TROPONIN: Troponin elevated 0.420 --> down to 0.276 , trending down Likely related to above- Rhabo, MAGEN, Bacteremia leading to demand ischemia EKG- Atrial fibrillation with LBBB, QTC 556- prolonged Discontinued Levofloxacin ABNORMAL CT SCAN ABDOMEN CT scan abd/pelvis shows multiple findings: 1. Peripancreatic edema with mild thickening of third portion of duodenum, which could be secondary to his cirrhosis. Lipase is negative, clinically no signs of pancreatitis 2. Cirrhosis with small ascites: Mildly elevated LFTs, INR 1.3. Reviewed his outpatient chart, no prior hx of cirrhosis but LFTs- slightly up, INR 1.3, Albumin 2.4. No prior known hx of cirrhosis or alcohol abuse per patient. 3. Possible 2.7 cm hypodense lesion within the right hepatic dome. However, this is difficult to characterize on this noncontrast study. Per patient, has had this in the past 4. Mild thickening of the sigmoid colon which likely represents a nonspecific colitis: Clinically less likely. 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 cirrhosis Continue Increased metoprolol to 25 mg PO BID from 12.5 mg PO BID per cardiology. CHRONIC CHF WITH Preserved EF on Lasix Cardiology signed off. HYPERTENSIVE URGENCY: Resolved BP was >200/100 on admission, now down Continue Toprol 25 mg PO BID Also on diuretics COPD No signs of exacerbation BIPAP overnight Nebulizers PRN DM II HA1C: 6.2%, well controlled Continue Lantus 12 units BID, ISS DVT Px: SCDs: H/O MDS and thrombocytopenia Code Status: DNR DISPOSITION PT/OT Plan [facility] Follow up with on 11/02/16 at 3:15pm Follow up with your Bee Breeder as outpatient as advised Follow up with Gastroenterology as outpatient. CT Abdomen suggestive of Cirrhosis with splenomegaly and Possible 2.7 cm hypodense lesion within the right hepatic dome Get blood test (BMP) in 1 week ad advised and follow up with your Bee Breeder Total time spent on discharge = 45 minutes This includes examination of the patient, discharge planning, medication reconciliation, and communication with other providers. Discharge Instructions Discharge Instructions Date of Service Oct 30, 2016. Admission Reason for Admission: Fall; Rhabdomyolysis; Sob Discharge Discharge Diagnosis / Problem: Bacteremia, MAGEN on CKD, Rhabdomyolysis, Volume overload, leg Cellulitis Discharge Goals Goal(s): Decrease discomfort, Improve function Activity Recommendations Activity Limitations: resume your previous activity Exercise/Sports Limitations: as tolerated . Instructions / Follow-Up Instructions / Follow-Up Follow up with on 11/02/16 at 3:15pm Follow up with your Bee Breeder as outpatient as advised Follow up with Gastroenterology as outpatient. CT Abdomen suggestive of Cirrhosis with splenomegaly and Possible 2.7 cm hypodense lesion within the right hepatic dome Get blood test (BMP) in 1 week ad advised and follow up with your Bee Breeder Current Hospital Diet Patient's current hospital diet: Diabetes Type 2 Diet, Renal Diet, Low Sodium Diet (2gm Na) Discharge Diet Recommended Diet: Low Sodium Diet (2gm Na), Diabetes Type 2 Diet, Renal Diet Pending Studies Studies pending at discharge: no Laboratory Results Hemoglobin A1c Test 10/17/16 05:09 Range/Units Estimated Average Glucose 131 mg/dl Hemoglobin A1c 6.2 H 4.5-5.6 % Medical Emergencies . Who to Call and When: Medical Emergencies: If at any time you feel your situation is an emergency, please call 911 immediately. . Non-Emergent Contact Non-Emergency issues call your: Primary Care Provider, Bee Breeder Call Non-Emergent contact if: you have a fever, your pain is not controlled, your pain is worsening, your pain is unusual for you, you have any medication questions . . "Provider Documentation" section prepared by Александр Hoang. . VTE Core Measure Inpt VTE Proph given/why not?: SCD's (H/O MDS and thrombocytopenia)
[2016-10-30 15:46] VITALS: BP_SYST 103; BP_SYST 94; BP_DIAS 58; BP_DIAS 60; PULSE 66; PULSE 69; TEMP 36.4; TEMP 36.6; O2SAT 95; O2SAT 98
[2016-12-28] MEDS ORDERED: LCTS240 PO (13:03)
[2016-12-28] MEDS ORDERED: INSDGIPEN SC (13:03)
[2016-12-28] MEDS ORDERED: POTA10CA28 PO (13:03)
[2016-12-28] MEDS ORDERED: NVLGIPEN SC (13:03)
[2016-12-28] MEDS ORDERED: TPRSR25 PO ×2 (13:03→13:12)
[2016-12-28] MEDS ORDERED: LSX80 PO (13:03)
[2016-12-28] MEDS ORDERED: ZRX5 PO (13:03)
[2017-02-21] MEDS ORDERED: FURO80TA63 PO (11:14)
[2017-02-21] MEDS ORDERED: PRMT25 PO (11:14)
[2017-02-21] MEDS ORDERED: METO25TA3 PO (11:14)
[2017-02-21] MEDS ORDERED: VNCS125 PO (11:14)
[2017-02-21] MEDS ORDERED: ZRX5 PO (11:14)
[2017-03-21] MEDS ORDERED: MCRK20 PO (13:40)
[2017-03-21] MEDS ORDERED: VNCS125 PO (13:40)
[2017-03-21] MEDS ORDERED: LSX20 PO (13:40)
[2017-03-21] MEDS ORDERED: SPR25 PO (13:40)
[2017-03-21] MEDS ORDERED: XFX550 PO (13:40)
[2017-03-21] MEDS ORDERED: FERR1TAB23 OR (14:07)
[2017-04-22] MEDS ORDERED: SPR25 PO (14:44)
== END 2016-10-30 16:40 | DRG 682 ==
LOC: ENRESERVTM → ENRESERVDT → EDBD 07:20 → C.EDA 07:25 → C.2T 10:54 → ENRESERV 10-20 12:07 → C.MS4W 10-20 13:47
PROVIDERS: ADMIT Family Medicine; ATTEND Internal Medicine
DX: N17.9 Acute kidney failure, unspecified (principal); J18.9 Pneumonia, unspecified organism; M62.82 Rhabdomyolysis; R78.81 Bacteremia; I13.0 Hypertensive heart and chronic kidney disease with heart failure and stage 1 through stage 4 chronic kidney disease, or unspecified chronic kidney disease; L03.116 Cellulitis of left lower limb; B37.0 Candidal stomatitis; E87.0 Hyperosmolality and hypernatremia; I50.32 Chronic diastolic (congestive) heart failure; I24.8 Other forms of acute ischemic heart disease; R18.8 Other ascites; B95.1 Streptococcus, group B, as the cause of diseases classified elsewhere; E86.9 Volume depletion, unspecified; R55 Syncope and collapse; I48.0 Paroxysmal atrial fibrillation; K74.60 Unspecified cirrhosis of liver; N18.4 Chronic kidney disease, stage 4 (severe); E11.22 Type 2 diabetes mellitus with diabetic chronic kidney disease; G47.33 Obstructive sleep apnea (adult) (pediatric); J44.9 Chronic obstructive pulmonary disease, unspecified; E78.5 Hyperlipidemia, unspecified; E66.9 Obesity, unspecified; Z66 Do not resuscitate; Z79.899 Other long term (current) drug therapy; Z79.4 Long term (current) use of insulin; Z99.81 Dependence on supplemental oxygen; Z85.51 Personal history of malignant neoplasm of bladder; Z68.33 Body mass index [BMI] 33.0-33.9, adult; Z82.49 Family history of ischemic heart disease and other diseases of the circulatory system; Z95.0 Presence of cardiac pacemaker; Z91.81 History of falling

== ENCOUNTER 2016-12-16 14:45 | Inpatient (IN) | payer OTHER ==
[~2016-12-16] VITALS: Ht 182.9 cm; Wt 112.0 kg
[~2016-12-16 14:45] MED LIST changes: -CRD200 PO; +TPRSR25 PO
[2016-12-16] MEDS ORDERED: SODIUM CHLORIDE 0.9% 1000ML 1,000 ML IV STA (15:10)
[2016-12-16 15:25] LABS: HEMATOCRIT 27.1 % (42-52); MEAN CORPUSCULAR HEMOGLOBIN 25.7 pg (25-34); MEAN CORPUSCULAR HGB CONC 29.9 g/dl (32-36); RED BLOOD COUNT 3.15 M/uL (4.7-6.1); WHITE BLOOD COUNT 4.31 K/uL (4.8-10.8)
[2016-12-16 15:26] LABS: MEAN PLATELET VOLUME 9.3 fL (7.4-10.4); PLATELET COUNT 77 K/uL (130-400)
--- NOTE | 2016-12-16 15:27 | EMERGENCY ROOM VISIT NOTE ---
History Report prepared by Li: Jimmy Rosa Under the Supervision of: Dr. Brent Ruiz M.D. First contact with patient: 14:52 Stated Complaint: HYPOTENSION History of Present Illness The patient is an 86 year old male who presents to the Emergency Room for evaluation of hypotension for the past week. The nursing staff state that the patient has had many falls due to this. Worsening confusion over the last few days and also now to point where too weak to ambulate. He is without complaints other than nursing reports patient made comment to his abdomen being bigger. During falls abrasions to extremities but no reported head/neck injuries. PCP has been altering meds as outpatient to try and alleviate hypotension. Patient without reported diarrhea, fevers, shob, vomiting, or other symptoms reported, though ROS by patient limited secondary to mental status. Source of History: patient Onset: a week ago Position: other (global) Quality: other (hypotension) Timing: constant Associated Symptoms: + abdominal pain, No fevers, No headache Review of Systems Patient essentially answers NO to all questions thus full ROS unable to be obtained effectively. Past Medical & Surgical Medical Problems: (1) Bladder cancer (2) Diabetes (3) Fall (4) Rhabdomyolysis (5) Shortness of breath Family History FHx: heart disease Social History Smoking Status: Never Smoker Alcohol Use: none Drug Use: none Marital Status: Housing Status: lives alone Occupation Status: unemployed Current/Historical Medications Scheduled Famotidine (Pepcid), 20 MG PO QPM Fluticasone Propionate (Nasal) (Flonase Allergy Relief), 2 SPRAY MAGAN DAILY Folic Acid (Folic Acid), 1 MG PO DAILY Furosemide (Lasix), 20 MG PO BID Insulin Glargine (Lantus), 24 UNITS SC HS Metoprolol Succ (Toprol Xl) (Toprol-Xl), 25 MG PO DAILY Nitroglycerin (Nitrostat), 0.4 MG UT PRN Pantoprazole (Protonix), 40 MG PO DAILY Scheduled PRN Acetaminophen Tab (Tylenol), 650 MG PO Q4 PRN for Fever Allergies Coded Allergies: Propranolol (Verified Allergy, Unknown, 10/16/16) Codeine (Verified Adverse Reaction, Mild, NOTED "DOESNT TOLERATE WELL" , 10/16/16) Physical Exam Vital Signs Date Time Temp Pulse Resp B/P (MAP) Pulse Ox O2 Delivery O2 Flow Rate FiO2 7/28/17 16:11 90 20 102/46 95 Room Air 12/16/16 15:25 163/131 12/16/16 14:57 36.8 77 20 159/141 98 Room Air 12/16/16 14:55 97 Physical Exam GENERAL: Patient is confused appearing and in no acute distress. Edematous throughout. HEENT: No acute trauma, normocephalic atraumatic, mucous membranes moist, no nasal congestion, no scleral icterus. NECK: No stridor, no adenopathy, no meningismus, trachea is midline. LUNGS: No dyspnea. Clear to auscultation and equal bilaterally. No wheeze, no rhonchi. HEART: Irregular rate and rhythm. No murmurs, rubs, gallops appreciated. ABDOMEN: Soft, nontender, bowel sounds positive, no masses appreciated, no peritonitis. BACK: No midline tenderness, no CVA tenderness EXTREMITIES: Multiple abrasions and contusions on the knees and elbows. Normal motion all extremities, no cyanosis. NEUROLOGIC: Generalized weakness. Unaware of place, name, and date. Alert, no acute motor or sensory deficits, cranial nerves grossly intact. SKIN: No rash, no jaundice, no diaphoresis. Medical Decision & Procedures ER Provider Diagnostic Interpretation: Radiology results and stated below per my review and radiologist interpretation: HEAD WITHOUT CONTRAST (CT) CLINICAL HISTORY: 86 years-old Male with acute altered mental status and hypotension TECHNIQUE: Multiple axial CT images of the head were obtained without contrast. A dose lowering technique was utilized adhering to the principles of ALARA. CT DOSE: 638.56 mGycm COMPARISON: Head CT 10/16/2016. FINDINGS: No acute intracranial hemorrhage, midline shift, mass, large territorial ischemia or abnormal extra-axial collection. There is moderate cerebral and cerebellar atrophy with ex vacuo ventriculomegaly. Patchy areas of low-attenuation are again seen within the subcortical and periventricular white matter of the cerebral hemispheres bilaterally suggesting chronic microvascular ischemic changes, unchanged from comparison. The calvarium is intact. The mastoid air cells, and middle ear cavities are clear. Mild mucosal thickening involves the ethmoid and inferior frontal sinuses. Soft tissues are unremarkable. IMPRESSION: 1. No acute intracranial abnormality. 2. Stable findings of moderate atrophy, ex vacuo ventriculomegaly with associated chronic microvascular ischemic changes. The above report was generated using voice recognition software. It may contain grammatical, syntax or spelling errors. Electronically signed by: Fausto Mays M.D. 12/16/2016 3:50 PM Dictated Date/Time: 12/16/2016 3:46 PM CHEST ONE VIEW PORTABLE CLINICAL HISTORY: Altered mental status. COMPARISON STUDY: Chest radiograph October 30, 2016. FINDINGS: There are median sternotomy wires and a dual lead left pacemaker. Moderate cardiomegaly is unchanged. There is pulmonary vascular congestion with possible mild pulmonary edema. There is no pneumothorax. There are mild bibasilar opacities. IMPRESSION: 1. Pulmonary vascular congestion with possible mild pulmonary edema. 2. Bibasilar opacities. Atelectasis is favored although consolidation could appear similar. Electronically signed by: Williams Goetz M.D. 12/16/2016 3:31 PM Dictated Date/Time: 12/16/2016 3:30 PM Laboratory Results Test 12/16/16 15:00 12/16/16 15:04 12/16/16 15:08 Hypochromasia PRESENT Microcytosis PRESENT Prothrombin Time 13.4 SECONDS (9.0-12.0) Prothromb Time International Ratio 1.2 (0.9-1.1) Activated Partial Thromboplast Time 28.0 SECONDS (21.0-31.0) Partial Thromboplastin Ratio 1.1 Total Bilirubin 0.6 mg/dl (0.2-1) Direct Bilirubin 0.3 mg/dl (0-0.2) Aspartate Amino Transf (AST/SGOT) 26 U/L (15-37) Alanine Aminotransferase (ALT/SGPT) 20 U/L (12-78) Alkaline Phosphatase 81 U/L (45-117) Troponin I 0.020 ng/ml (0-0.045) C-Reactive Protein 5.84 mg/dl (0-0.29) Total Protein 5.8 gm/dl (6.4-8.2) Albumin 1.9 gm/dl (3.4-5.0) Procalcitonin 0.11 ng/ml (0-0.5) Urine Color DK YELLOW Urine Appearance CLEAR (CLEAR) Urine pH 6.0 (4.5-7.5) Urine Specific [place] 1.016 (1.000-1.030) Urine Protein NEG (NEG) Urine Glucose (UA) NEG (NEG) Urine Ketones NEG (NEG) Urine Occult Blood NEG (NEG) Urine Nitrite NEG (NEG) Urine Bilirubin NEG (NEG) Urine Urobilinogen NEG (NEG) Urine Leukocyte Esterase NEG (NEG) Urine WBC (Auto) 1-5 /hpf (0-5) Urine RBC (Auto) 0-4 /hpf (0-4) Urine Hyaline Casts (Auto) 5-10 /lpf (0-5) Urine Epithelial Cells (Auto) 5-10 /lpf (0-5) Urine Bacteria (Auto) NEG (NEG) Bedside Lactic Acid Venous 3.19 mmol/L (0.90-1.70) Laboratory results as reviewed by me. Medications Administered Medications (Trade) Dose Ordered Sig/Gin Route Start Time Stop Time Status Last Admin Dose Admin Sodium Chloride 1,000 ml @ 999 mls/hr Q1H1M STAT IV 12/16/16 15:10 12/16/16 16:10 DC 12/16/16 15:24 500 MLS/HR Cefepime HCl 1000 mg/Dextrose 111.3 ml @ 200 mls/hr NOW STAT IV 12/16/16 15:46 12/16/16 16:19 DC 12/16/16 16:27 200 MLS/HR Vancomycin HCl 2800 mg/Sodium Chloride 556 ml @ 200 mls/hr ONE STAT IV 12/16/16 15:46 12/16/16 18:32 DC 12/16/16 17:30 200 MLS/HR ECG Indication: other (hypotension) Rate (beats per minute): 83 Rhythm: atrial fibrillation Findings: LBBB, other (Periodically ventricularly paced) ED Course 1452: The patient was evaluated in room A2. A complete history and physical exam was performed. 1510: Sodium Chloride 1000 ml @ 999 mls/hr IV 1546: Vancomycin HCl 2800mg/ Sodium Chloride 556ml @ 200mls/hr IV, Cefepime HCl 1000mg/ Dextrose 111.3 ml @ 200mls/hr IV 1620: I reevaluated the patient, and he is resting. 1638: I discussed the patient's case with Emiliana Diehl PA-C [facility] Hospitalist. She is going to evaluate the patient for further treatment. 1653: I reassessed the patient, and he is stable. I discussed admission with his son-in-law, and he is agreeable to the treatment plan. Medical Decision Differential: Toxicological, Infectious, Stroke, SAH, Trauma, Electrolyte Abnormality, Hypoglycemia, Alcohol Intoxication, Drug Intoxication, Cardiac Abnormality, Sepsis, Meningitis/Encephalitis, Trauma, Excited Delirium, Serotonin Syndrome, Psychiatric, amongst other pathologies entertained. 86 yr old male with rapidly worsening decline in health over the last few months with admission last month for sepsis. Arrives this morning after several days rapid decline. Usually able to ambulate some and interact but today much weaker and confused. Work-up consistent with worsening renal failure. With mild hypotension in setting of elevated lactic acid he was given 500mL NSS bolus along with empiric abx (of note significant amount of fluid in Vanco. BP improved. He is already clearly somewhat overloaded, including CXR thus will hold on full 30ml/kg bolus as not sure this is sepsis, plus giving him that much fluid would assuradly result in respiratory failure, which in his case would kill him as he is DNR. Unclear if this is actually sepsis or just failing health as no definitive infiltrate on CXR nor UA. I do not feel this is meningitis and he does not exam as such. Will bring in to hospitalist service for further work-up and evaluation. Of note, daughter with viral infection to point where too ill to visit in hospital. Medication Reconcilliation Current Medication List: was personally reviewed by me Blood Pressure Screening Patient's blood pressure: Elevated blood pressure Monitored by the hospitalist Consults Time Called: 1627 Consulting Physician: ADRIAN Mccallist Returned Call: [phone] I discussed the patient's case with [facility]. She is going to evaluate the patient for further treatment. Impression Primary Impression: Acute on chronic renal failure Additional Impressions: Hypotension Elevated lactic acid level Generalized weakness Scribe Attestation The scribe's documentation has been prepared under my direction and personally reviewed by me in its entirety. I confirm that the note above accurately reflects all work, treatment, procedures, and medical decision making performed by me. Departure Information Dispostion Being Evaluated By Hospitalist Referrals Anastacio Garza M.D. (PCP) Problem Qualifiers
--- NOTE | 2016-12-16 15:33 | DIAGNOSTIC IMAGING REPORT ---
CHEST ONE VIEW PORTABLE CLINICAL HISTORY: Altered mental status. COMPARISON STUDY: Chest radiograph October 30, 2016. FINDINGS: There are median sternotomy wires and a dual lead left pacemaker. Moderate cardiomegaly is unchanged. There is pulmonary vascular congestion with possible mild pulmonary edema. There is no pneumothorax. There are mild bibasilar opacities. IMPRESSION: 1. Pulmonary vascular congestion with possible mild pulmonary edema. 2. Bibasilar opacities. Atelectasis is favored although consolidation could appear similar. Electronically signed by: Williams Goetz M.D. 12/16/2016 3:31 PM Dictated Date/Time: 12/16/2016 3:30 PM
[2016-12-16 15:34] LABS: INR 1.2 (0.9-1.1); PARTIAL THROMBOPLASTIN RATIO 1.1; PROTHROMBIN TIME (PATIENT) 13.4 SECONDS (9.0-12.0)
[2016-12-16 15:43] LABS: C-REACTIVE PROTEIN 5.84 mg/dl (0-0.29); CALCIUM 7.9 mg/dl (8.5-10.1); CREATININE 3.3 mg/dl (0.60-1.40); POTASSIUM 4.1 mmol/L (3.5-5.1)
[2016-12-16] MEDS ORDERED: VANCOMYCIN INJ 2,800 MG in SODIUM CHLORIDE 0.9% 500ML 500 ML IV STA (15:46)
[2016-12-16] MEDS ORDERED: CEFEPIME IV 1,000 MG in DEXTROSE 5% 100ML 100 ML IV STA (15:46)
--- NOTE | 2016-12-16 15:51 | DIAGNOSTIC IMAGING REPORT ---
HEAD WITHOUT CONTRAST (CT) CLINICAL HISTORY: 86 years-old Male with acute altered mental status and hypotension TECHNIQUE: Multiple axial CT images of the head were obtained without contrast. A dose lowering technique was utilized adhering to the principles of ALARA. CT DOSE: 638.56 mGycm COMPARISON: Head CT 10/16/2016. FINDINGS: No acute intracranial hemorrhage, midline shift, mass, large territorial ischemia or abnormal extra-axial collection. There is moderate cerebral and cerebellar atrophy with ex vacuo ventriculomegaly. Patchy areas of low-attenuation are again seen within the subcortical and periventricular white matter of the cerebral hemispheres bilaterally suggesting chronic microvascular ischemic changes, unchanged from comparison. The calvarium is intact. The mastoid air cells, and middle ear cavities are clear. Mild mucosal thickening involves the ethmoid and inferior frontal sinuses. Soft tissues are unremarkable. IMPRESSION: 1. No acute intracranial abnormality. 2. Stable findings of moderate atrophy, ex vacuo ventriculomegaly with associated chronic microvascular ischemic changes. The above report was generated using voice recognition software. It may contain grammatical, syntax or spelling errors. Electronically signed by: Fausto Mays M.D. 12/16/2016 3:50 PM Dictated Date/Time: 12/16/2016 3:46 PM
[2016-12-16 16:13] LABS: BASO % 0.2 %; BASO ABS # 0.01 K/uL (0-0.2); COMPLETE YES; EOS % 0.9 %; IG% 0.2 %; LYMPH % 7.9 %; LYMPH ABS # 0.34 K/uL (1.2-3.4); NEUT % 81.8 %
[2016-12-16 16:14] LABS: HYPOCHROMIA PRESENT; MICROCYTOSIS PRESENT; OVALOCYTES 1+
[2016-12-16 16:14] LABS: URINE APPEARANCE CLEAR (CLEAR); URINE BILIRUBIN NEG (NEG); URINE COLOR DK YELLOW; URINE NITRITE NEG (NEG); URINE SPECIFIC GRAVITY 1.016 (1.000-1.030); UROBILINOGEN NEG (NEG); ZZURINE CULT IF INDIC CATH NO
[2016-12-16 16:15] LABS: MANUAL MICROSCOPIC REQUIRED? NO; REVIEW REQ? NO
[2016-12-16] MEDS ORDERED: METO25TA3 PO (16:38)
[2016-12-16] MEDS ORDERED: FRS/40 PO (16:38)
[2016-12-16] MEDS ORDERED: VANCOMYCIN CONSULT ACTIVE SCH (18:59)
[2016-12-16] MEDS ORDERED: ACETAMINOPHEN 325 MG TAB PO PRN (19:00)
[2016-12-16] MEDS ORDERED: GLUCOSE 40% GEL 15 GM TUBE PO PRN (19:00)
[2016-12-16] MEDS ORDERED: GLUCAGON FOR INJ 1 MG VIAL SQ PRN (19:00)
[2016-12-16] MEDS ORDERED: GLUCOSE 10 TABS/TUBE PO PRN (19:00)
[2016-12-16] MEDS ORDERED: PIPERACILL/TAZOBAC CONSULT ACTIVE SCH (19:00)
[2016-12-16] MEDS ORDERED: DEXTROSE 50% 50 ML SYR IV PRN (19:00)
--- NOTE | 2016-12-16 19:09 | Pharmacy Progress Note ---
Pharmacy Abx Initial Consult Date of Service Dec 16, 2016. Pharmacy Dosing Scope Date of Consult: 12/16/16 Consultation requested by: Dr. Flores Pharmacy is consulted to initiate Vancomycin and Zosyn IV dosing therapy, order appropriate labs and adjust drug dose/frequency. Subjective The patient is a 86 year old male admitted on 12/16/16 with possible sepsis, possible lung source? Recent admission September/October 2016 for Group B Strep bacteremia secondary to LLE Cellulitis and CAP. Objective Height (Feet): 6 Height (Inches): 0 Weight (Kilograms): 114.400 Vital Signs (Past 12Hrs) Vital Signs Past 12 Hours Date Time Temp Pulse Resp B/P (MAP) Pulse Ox O2 Delivery O2 Flow Rate FiO2 12/16/16 18:26 71 20 99/60 100 Room Air 12/16/16 17:07 80 20 96/66 97 Room Air 12/16/16 16:11 90 20 102/46 95 Room Air 12/16/16 15:25 163/131 12/16/16 14:57 36.8 77 20 159/141 98 Room Air 12/16/16 14:55 97 Lab Results (24Hrs) Laboratory Tests (24 Hours) Item Value Date Time Creatinine 3.30 mg/dl H 12/16/16 1500 Est Creatinine Clear Calc Drug Dose 21.0 ml/min 12/16/16 1500 Test 12/16/16 15:00 C-Reactive Protein 5.84 mg/dl (0-0.29) H White Blood Count 4.31 K/uL (4.8-10.8) L Red Blood Count 3.15 M/uL (4.7-6.1) L Hemoglobin 8.1 g/dL (14.0-18.0) L Hematocrit 27.1 % (42-52) L Mean Corpuscular Volume 86.0 fL (80-100) Mean Corpuscular Hemoglobin 25.7 pg (25-34) Mean Corpuscular Hemoglobin Concent 29.9 g/dl (32-36) L Platelet Count 77 K/uL (130-400) L Mean Platelet Volume 9.3 fL (7.4-10.4) Neutrophils (%) (Auto) 81.8 % Lymphocytes (%) (Auto) 7.9 % Monocytes (%) (Auto) 9.0 % Eosinophils (%) (Auto) 0.9 % Basophils (%) (Auto) 0.2 % Neutrophils # (Auto) 3.52 K/uL (1.4-6.5) Lymphocytes # (Auto) 0.34 K/uL (1.2-3.4) L Monocytes # (Auto) 0.39 K/uL (0.11-0.59) Eosinophils # (Auto) 0.04 K/uL (0-0.5) Basophils # (Auto) 0.01 K/uL (0-0.2) Procalcitonin 0.11 ng/ml (0-0.5) Micro Results Date/Time Source Procedure Growth Status 12/16/16 16:21 Blood Blood Culture Pending Received 12/16/16 15:00 Blood Blood Culture Pending Received Risk Factors for Resistance * Hospitalization for 48 hours or more within the past 90 days - October 2016 * Antimicrobial use within the last 90 days - IV Zosyn/Vancomycin/Levofloxacin. Discontinued Levofloxacin as QTC prolonged. Changed IV Unasyn on 10/18 as per C/ S results, then Augmentin Assessment & Plan Assessment 86 year old male admitted with possible sepsis, recent hospital stay as above, LLE Cellulitis and CAP. Plan Vancomycin and Zosyn IV for treatment of possible sepsis, Lung source?, Cellulitis? Vancomycin IV * Loading dose: 2800 mg (24.5 mg/kg) x1 dose today at 1730 * Goal trough level for sepsis : 15 to 20 mcg/mL * Random level ordered for 12/17/16 with AM labs * Due to patient with h/o CKD, SCr = 3.3mg/dL today, will give empiric doses and check random in AM Piperacillin/tazobactam * 3.375 g bolus administered over 30 minutes, then 3.375 g IV extended infusion every 8 hours for CrCl greater than 20 mL/min Pharmacy will continue to follow and will adjust dose/frequency as necessary. Thank you.
[2016-12-16] MEDS ORDERED: PIPERACILL/TAZOBAC IV 3.375 GM in DEXTROSE 5% 100ML IV ONE (19:30)
[2016-12-16 19:33] VITALS: BP 110/52; PULSE 80; TEMP 36.5; O2SAT 93; Ht 182.9 cm; Wt 112.0 kg
[2016-12-16] MEDS: FAMOTIDINE 20 MG TAB PO SCH (20:21)
[2016-12-16] MEDS: SODIUM CHLORIDE 0.9% 1000ML 1,000 ML IV SCH (20:21)
[2016-12-16] MEDS: INSULIN ASPART 100 UNITS/ML 3 ML PEN SC SCH (21:00)
--- NOTE | 2016-12-16 21:54 | History and Physical ---
History & Physical Date & Time of Service: Dec 16, 2016 at 19:12 Chief Complaint: Hypotension Primary Care Physician: Anastacio Garza M.D. History of Present Illness Source: patient, family, clinic records, hospital records 86 year old male with history of CKD 4, Paroxysmal A fib, SSS s/p PM, DM, HTN, COPD, Cirrhosis, CARLITA, Myelodysplastic Syndrome, Chronic Thrombocytopenia presenting with hypotension and weakness. Patient follows with Dr. Chong for Nephrology and Dr. Garza for PCP. Patient was admitted to [facility] last September 2016 for Strep Bacteremia and eventually discharged to SNF. As per family, patient was noted to have gradually declined- became weaker since then. Patient reports being weak, lightheaded for the past few weeks. He was also noted to have low blood pressure readings as well. Today, patient was brought in to the ER due to low BP readings. At the ER, patient was given IV fluids bolus of 1 L and was started on Vanco + Cefepime. Lactic acid elevated at 3, Crea 3.2. Patient denies headache, abdominal pain, dysuria. He has occasional cough with yellow sputum and occasional diarrhea. Past Medical/Surgical History Medical Problems: (1) Bladder cancer Status: Chronic (2) Diabetes Status: Chronic Family History FHx: heart disease Social History Smoking Status: Never Smoker Smokeless Tobacco Use: No Alcohol Use: none Drug Use: none Marital Status: Occupational Status: unemployed Immunizations History of Influenza Vaccine: Yes History of Tetanus Vaccine?: Yes History of Pneumococcal: Yes History of Hepatitis B Vaccine: Unknown Multi-Drug Resistant Organisms History of MDRO: No Allergies Coded Allergies: Propranolol (Verified Allergy, Unknown, 10/16/16) Codeine (Verified Adverse Reaction, Mild, NOTED "DOESNT TOLERATE WELL" , 10/16/16) Home Medications Scheduled Famotidine (Pepcid), 20 MG PO QPM Fluticasone Propionate (Nasal) (Flonase Allergy Relief), 2 SPRAY MAGAN DAILY Folic Acid (Folic Acid), 1 MG PO DAILY Furosemide (Lasix), 20 MG PO BID Insulin Glargine (Lantus), 24 UNITS SC HS Metoprolol Succ (Toprol Xl) (Toprol-Xl), 25 MG PO DAILY Nitroglycerin (Nitrostat), 0.4 MG UT PRN Pantoprazole (Protonix), 40 MG PO DAILY Scheduled PRN Acetaminophen Tab (Tylenol), 650 MG PO Q4 PRN for Fever Review of Systems Constitutional- no fever; no weight loss Eyes- no acute visual changes ENT- no sinus drainage; no pharyngitis Pulmonary- (+) as noted above Cardiac- no chest pain, no palpitations, no orthopnea, no dependent edema GI- no nausea, no vomiting, no diarrhea, no melena, no hematochezia - no dysuria, no hematuria Musculoskeletal- no arthralgias, no myalgias Derm- no rashes, no new skin lesions, no changing skin lesions Hematologic- no unusual bruising, no unusual bleeding Lymphatics- no adenopathy Endocrine- no polyuria or polydipsia; no heat or cold intolerance Neuro- no headaches, no focal neurologic symptoms Psych- no anxiety, no depression Physical Exam Vital Signs Date Time Temp Pulse Resp B/P (MAP) Pulse Ox O2 Delivery O2 Flow Rate FiO2 12/16/16 18:26 71 20 99/60 100 Room Air 12/16/16 17:07 80 20 96/66 97 Room Air 12/16/16 16:11 90 20 102/46 95 Room Air 12/16/16 15:25 163/131 12/16/16 14:57 36.8 77 20 159/141 98 Room Air 12/16/16 14:55 97 General Appearance: WD/WN, no apparent distress, + pertinent finding (appears somewhat weak) Head: normocephalic, atraumatic Eyes: normal inspection, PERRL, EOMI ENT: normal ENT inspection, hearing grossly normal, pharynx normal Neck: supple, no adenopathy, thyroid normal, no JVD, trachea midline Respiratory/Chest: chest non-tender, lungs clear, normal breath sounds, no respiratory distress, no accessory muscle use Cardiovascular: regular rate, rhythm, no JVD, no murmur Abdomen/GI: normal bowel sounds, non tender, soft, + pertinent finding (mild abdominal distention) Back: normal inspection, no CVA tenderness Extremities/Musculoskelatal: no calf tenderness, + pertinent finding (grade 1 lower leg edema, no erythema/warmth/tenderness) Neurologic/Psych: regulatory affairs spec II-XII nml as tested, no motor/sensory deficits, alert, normal mood/affect, oriented x 3 Skin: normal color, warm/dry, no rash Lymphatic: no adenopathy Diagnostics Laboratory Results Results Past 24 Hours Test 12/16/16 15:00 12/16/16 15:04 12/16/16 15:08 Range/Units White Blood Count 4.31 4.8-10.8 K/uL Red Blood Count 3.15 4.7-6.1 M/uL Hemoglobin 8.1 14.0-18.0 g/dL Hematocrit 27.1 42-52 % Mean Corpuscular Volume 86.0 80-100 fL Mean Corpuscular Hemoglobin 25.7 25-34 pg Mean Corpuscular Hemoglobin Concent 29.9 32-36 g/dl Platelet Count 77 130-400 K/uL Mean Platelet Volume 9.3 7.4-10.4 fL Neutrophils (%) (Auto) 81.8 % Lymphocytes (%) (Auto) 7.9 % Monocytes (%) (Auto) 9.0 % Eosinophils (%) (Auto) 0.9 % Basophils (%) (Auto) 0.2 % Neutrophils # (Auto) 3.52 1.4-6.5 K/uL Lymphocytes # (Auto) 0.34 1.2-3.4 K/uL Monocytes # (Auto) 0.39 0.11-0.59 K/uL Eosinophils # (Auto) 0.04 0-0.5 K/uL Basophils # (Auto) 0.01 0-0.2 K/uL RDW Standard Deviation 52.6 36.4-46.3 fL RDW Coefficient of Variation 16.8 11.5-14.5 % Immature Granulocyte % (Auto) 0.2 % Immature Granulocyte # (Auto) 0.01 0.00-0.02 K/uL Hypochromasia PRESENT Microcytosis PRESENT Ovalocytes 1+ Prothrombin Time 13.4 9.0-12.0 SECONDS Prothromb Time International Ratio 1.2 0.9-1.1 Activated Partial Thromboplast Time 28.0 21.0-31.0 SECONDS Partial Thromboplastin Ratio 1.1 Sodium Level 144 136-145 mmol/L Potassium Level 4.1 3.5-5.1 mmol/L Chloride Level 107 98-107 mmol/L Carbon Dioxide Level 27 21-32 mmol/L Anion Gap 10.0 3-11 mmol/L Blood Urea Nitrogen 60 7-18 mg/dl Creatinine 3.30 0.60-1.40 mg/dl Est Creatinine Clear Calc Drug Dose 21.0 ml/min Estimated GFR () 18.6 Estimated GFR (Non- 16.0 BUN/Creatinine Ratio 18.0 10-20 Random Glucose 191 70-99 mg/dl Calcium Level 7.9 8.5-10.1 mg/dl Total Bilirubin 0.6 0.2-1 mg/dl Direct Bilirubin 0.3 0-0.2 mg/dl Aspartate Amino Transf (AST/SGOT) 26 15-37 U/L Alanine Aminotransferase (ALT/SGPT) 20 12-78 U/L Alkaline Phosphatase 81 45-117 U/L Troponin I 0.020 0-0.045 ng/ml C-Reactive Protein 5.84 0-0.29 mg/dl Total Protein 5.8 6.4-8.2 gm/dl Albumin 1.9 3.4-5.0 gm/dl Procalcitonin 0.11 0-0.5 ng/ml Urine Color DK YELLOW Urine Appearance CLEAR CLEAR Urine pH 6.0 4.5-7.5 Urine Specific [place] 1.016 1.000-1.030 Urine Protein NEG NEG Urine Glucose (UA) NEG NEG Urine Ketones NEG NEG Urine Occult Blood NEG NEG Urine Nitrite NEG NEG Urine Bilirubin NEG NEG Urine Urobilinogen NEG NEG Urine Leukocyte Esterase NEG NEG Urine WBC (Auto) 1-5 0-5 /hpf Urine RBC (Auto) 0-4 0-4 /hpf Urine Hyaline Casts (Auto) 5-10 0-5 /lpf Urine Epithelial Cells (Auto) 5-10 0-5 /lpf Urine Bacteria (Auto) NEG NEG Bedside Lactic Acid Venous 3.19 0.90-1.70 mmol/L Microbiology Results 12/16/16 Blood Culture, Received Pending 12/16/16 Blood Culture, Received Pending Diagnostic Radiology [~ rep ct add3]] CHEST ONE VIEW PORTABLE CLINICAL HISTORY: Altered mental status. COMPARISON STUDY: Chest radiograph October 30, 2016. FINDINGS: There are median sternotomy wires and a dual lead left pacemaker. Moderate cardiomegaly is unchanged. There is pulmonary vascular congestion with possible mild pulmonary edema. There is no pneumothorax. There are mild bibasilar opacities. IMPRESSION: 1. Pulmonary vascular congestion with possible mild pulmonary edema. 2. Bibasilar opacities. Atelectasis is favored although consolidation could appear similar. EKG a fib heart rate 83 Impression Assessment and Plan 86 year old male with history of CKD 4, Paroxysmal A fib, SSS s/p PM, DM, HTN, COPD, Cirrhosis, CARLITA, Myelodysplastic Syndrome, Chronic Thrombocytopenia presenting with hypotension and weakness. HYPOTENSION POSSIBLE VOLUME DEPLETION SECONDARY TO DIURETICS -- gentle IV fluids hold Lasix R/O INFECTION -- ff up blood and urine cultures (+) Proteus per Urine Culture 12/13/16 possible pneumonia per CXR --lactic acid 3.9 repeat lactic acid q4h -- empiric Vanco and Zosyn R/O CHF HISTORY OF CARDIOMYOPATHY -- update echo CKD 4 Crea 2.0 in September increased to 3.2 as of November today, 3.3 -- will consult Nephrology ABDOMINAL DISTENTION -- noted to have liver cirrhosis last September [address] -- will check liver US to r/o Ascites PAROXYSMAL A FIB -- on Metoprolol hold for tonight may need to decrease dose in AM -- not on anticoag per Cardiology DM -- hold Lantus -- ISS for now COPD -- not in exacerbation CARLITA -- continue CPAP CHRONIC THROMBOCYTOPENIA MYELODYSPLASTIC SYNDROME -- Hg and Plt stable CODE STATUS DNR per mono HUYNH pending resident of SNF VTE Prophylaxis VTE Risk Assessment Done? Y/N: Yes Risk Level: Moderate Given or contraindicated: Contraindicated (thrombocytopenic, leg swelling)
--- NOTE | 2016-12-16 22:03 | DIAGNOSTIC IMAGING REPORT ---
ASCITES-ABDOMEN LIMITED CLINICAL HISTORY: r/o ascites (bedside please) ascites TECHNIQUE: Survey abdominal ultrasound COMPARISON STUDY: None FINDINGS: Mild/moderate abdominal and pelvic ascites. IMPRESSION: Mild/moderate abdominal and pelvic ascites. The above report was generated using voice recognition software. It may contain grammatical, syntax or spelling errors. Electronically signed by: Anatsacio Hilton M.D. 12/16/2016 10:02 PM Dictated Date/Time: 12/16/2016 10:01 PM
[2016-12-16 22:25] VITALS: PULSE 77; O2SAT 97
[2016-12-16 23:58] VITALS: BP 99/68; PULSE 69; TEMP 36.4; O2SAT 99
[2016-12-17] VITALS (9 sets, daily range): BP systolic 93–120; BP diastolic 58–78; PULSE 64–76; TEMP 36.4–36.5; O2SAT 94–99
[2016-12-17] MEDS: PIPERACILL/TAZOBAC IV 3.375 GM in DEXTROSE 5% 100ML IV SCH ×3 (04:13→19:27)
[2016-12-17 04:26] LABS: HEMATOCRIT 26.5 % (42-52); MEAN CELL VOLUME 86.3 fL (80-100); MEAN CORPUSCULAR HEMOGLOBIN 26.1 pg (25-34); MEAN CORPUSCULAR HGB CONC 30.2 g/dl (32-36); RED BLOOD COUNT 3.07 M/uL (4.7-6.1); WHITE BLOOD COUNT 3.63 K/uL (4.8-10.8)
[2016-12-17 04:31] LABS: MEAN PLATELET VOLUME 9.8 fL (7.4-10.4); PLATELET COUNT 57 K/uL (130-400)
[2016-12-17 04:48] LABS: BUN/CREATININE RATIO 19.2 (10-20); CALCIUM 7.7 mg/dl (8.5-10.1); CREATININE 2.9 mg/dl (0.60-1.40); MAGNESIUM 2.6 mg/dl (1.8-2.4); POTASSIUM 3.9 mmol/L (3.5-5.1)
[2016-12-17 04:49] LABS: BASO % 0.6 %; BASO ABS # 0.02 K/uL (0-0.2); COMPLETE YES; EOS % 2.5 %; IG% 0.3 %; LYMPH % 9.6 %; LYMPH ABS # 0.35 K/uL (1.2-3.4); MONO % 9.6 %; NEUT % 77.4 %; OVALOCYTES 1+
[2016-12-17] MEDS: SODIUM CHLORIDE 0.9% 1000ML 1,000 ML IV SCH ×2 (07:44→22:06)
[2016-12-17] MEDS: PANTOprazole SOD 40 MG TAB PO SCH (07:45)
[2016-12-17] MEDS: INSULIN ASPART 100 UNITS/ML 3 ML PEN SC SCH ×4 (08:37→20:51)
[2016-12-17] MEDS ORDERED: METOPROLOL SUCC 25MG EXT REL TAB PO ONE (09:08)
--- NOTE | 2016-12-17 09:24 | Progress Note ---
Medicine Progress Note Date & Time of Visit: Dec 17, 2016 at 09:17. Subjective patient seen resting in bedside chair, sleeping but easily rousable pleasant, oriented x 3 states he feels fine, just sleepy Objective Last 8 Hrs Date Time Temp Pulse Resp B/P (MAP) Pulse Ox O2 Delivery O2 Flow Rate FiO2 12/17/16 07:44 36.4 69 20 105/63 (77) 94 12/17/16 04:27 36.4 76 18 95/58 (70) 95 Room Air 12/17/16 04:10 Room Air Physical Exam: General- oriented x 3, not in distress, speaks in sentences with no effort Eyes- EOMI, anicteric ENT- oropharynx clear Neck- supple, no JVD, no adenopathy Lungs- clear breath sounds bilaterally, no rales/wheezes Heart- irregularly irregular rhythm; no murmur, normal rate Abdomen- normal bowel sounds,mild distension, soft, nontender Extremities- grade 1 lower leg edema, no calf tenderness Neuro- alert, oriented x 3; no gross focal neuro deficit Skin- warm & dry Laboratory Results: Last 24 Hours Test 12/16/16 15:00 12/16/16 15:04 12/16/16 15:08 12/16/16 19:57 White Blood Count 4.31 K/uL Red Blood Count 3.15 M/uL Hemoglobin 8.1 g/dL Hematocrit 27.1 % Mean Corpuscular Volume 86.0 fL Mean Corpuscular Hemoglobin 25.7 pg Mean Corpuscular Hemoglobin Concent 29.9 g/dl Platelet Count 77 K/uL Mean Platelet Volume 9.3 fL Neutrophils (%) (Auto) 81.8 % Lymphocytes (%) (Auto) 7.9 % Monocytes (%) (Auto) 9.0 % Eosinophils (%) (Auto) 0.9 % Basophils (%) (Auto) 0.2 % Neutrophils # (Auto) 3.52 K/uL Lymphocytes # (Auto) 0.34 K/uL Monocytes # (Auto) 0.39 K/uL Eosinophils # (Auto) 0.04 K/uL Basophils # (Auto) 0.01 K/uL RDW Standard Deviation 52.6 fL RDW Coefficient of Variation 16.8 % Immature Granulocyte % (Auto) 0.2 % Immature Granulocyte # (Auto) 0.01 K/uL Hypochromasia PRESENT Microcytosis PRESENT Ovalocytes 1+ Prothrombin Time 13.4 SECONDS Prothromb Time International Ratio 1.2 Activated Partial Thromboplast Time 28.0 SECONDS Partial Thromboplastin Ratio 1.1 Sodium Level 144 mmol/L Potassium Level 4.1 mmol/L Chloride Level 107 mmol/L Carbon Dioxide Level 27 mmol/L Anion Gap 10.0 mmol/L Blood Urea Nitrogen 60 mg/dl Creatinine 3.30 mg/dl Est Creatinine Clear Calc Drug Dose 21.0 ml/min Estimated GFR () 18.6 Estimated GFR (Non- 16.0 BUN/Creatinine Ratio 18.0 Random Glucose 191 mg/dl Calcium Level 7.9 mg/dl Total Bilirubin 0.6 mg/dl Direct Bilirubin 0.3 mg/dl Aspartate Amino Transf (AST/SGOT) 26 U/L Alanine Aminotransferase (ALT/SGPT) 20 U/L Alkaline Phosphatase 81 U/L Troponin I 0.020 ng/ml C-Reactive Protein 5.84 mg/dl Total Protein 5.8 gm/dl Albumin 1.9 gm/dl Procalcitonin 0.11 ng/ml Urine Color DK YELLOW Urine Appearance CLEAR Urine pH 6.0 Urine Specific [place] 1.016 Urine Protein NEG Urine Glucose (UA) NEG Urine Ketones NEG Urine Occult Blood NEG Urine Nitrite NEG Urine Bilirubin NEG Urine Urobilinogen NEG Urine Leukocyte Esterase NEG Urine WBC (Auto) 1-5 /hpf Urine RBC (Auto) 0-4 /hpf Urine Hyaline Casts (Auto) 5-10 /lpf Urine Epithelial Cells (Auto) 5-10 /lpf Urine Bacteria (Auto) NEG Bedside Lactic Acid Venous 3.19 mmol/L Lactic Acid Level 1.7 mmol/L Test 12/16/16 20:54 12/17/16 04:11 12/17/16 07:29 Bedside Glucose 190 mg/dl 146 mg/dl White Blood Count 3.63 K/uL Red Blood Count 3.07 M/uL Hemoglobin 8.0 g/dL Hematocrit 26.5 % Mean Corpuscular Volume 86.3 fL Mean Corpuscular Hemoglobin 26.1 pg Mean Corpuscular Hemoglobin Concent 30.2 g/dl Platelet Count 57 K/uL Mean Platelet Volume 9.8 fL Neutrophils (%) (Auto) 77.4 % Lymphocytes (%) (Auto) 9.6 % Monocytes (%) (Auto) 9.6 % Eosinophils (%) (Auto) 2.5 % Basophils (%) (Auto) 0.6 % Neutrophils # (Auto) 2.81 K/uL Lymphocytes # (Auto) 0.35 K/uL Monocytes # (Auto) 0.35 K/uL Eosinophils # (Auto) 0.09 K/uL Basophils # (Auto) 0.02 K/uL RDW Standard Deviation 52.9 fL RDW Coefficient of Variation 16.8 % Immature Granulocyte % (Auto) 0.3 % Immature Granulocyte # (Auto) 0.01 K/uL Ovalocytes 1+ Sodium Level 145 mmol/L Potassium Level 3.9 mmol/L Chloride Level 111 mmol/L Carbon Dioxide Level 30 mmol/L Anion Gap 4.0 mmol/L Blood Urea Nitrogen 56 mg/dl Creatinine 2.90 mg/dl Est Creatinine Clear Calc Drug Dose 23.4 ml/min Estimated GFR () 21.7 Estimated GFR (Non- 18.7 BUN/Creatinine Ratio 19.2 Random Glucose 152 mg/dl Lactic Acid Level 1.3 mmol/L Calcium Level 7.7 mg/dl Magnesium Level 2.6 mg/dl Random Vancomycin Level 22.9 mcg/ml Date/Time Source Procedure Growth Status 12/16/16 16:21 Blood Blood Culture Pending Received 12/16/16 15:00 Blood Blood Culture Pending Received 12/16/16 16:04 Urine , Clean Catch Urine Culture Pending Received Assessment & Plan 86 year old male with history of CKD 4, Paroxysmal A fib, SSS s/p PM, DM, HTN, COPD, Cirrhosis, CARLITA, Myelodysplastic Syndrome, Chronic Thrombocytopenia presenting with hypotension and weakness. HYPOTENSION POSSIBLE VOLUME DEPLETION SECONDARY TO DIURETICS -- BP stable so far continue gentle IV fluids hold Lasix -- resume Metoprolol but decrease dose from 25 to 12.5mg po monitor R/O INFECTION -- afebrile -- blood and urine cultures pending (+) Proteus per Urine Culture 12/13/16 possible pneumonia per CXR --lactic acid 3.9--> 1.3 -- empiric Vanco and Zosyn Day 2 monitor R/O CHF HISTORY OF CARDIOMYOPATHY -- appears to be third spacing -- update echo pending CKD 4 Crea 2.0 in September increased to 3.2 as of November today, 3.3 --> 2.9 -- Nephrology consulted ASCITES, LIVER CIRRHOSIS BY CT SCAN -- noted to have liver cirrhosis last September [address] -- liver US: mild to moderate ascites check ammonia PAROXYSMAL A FIB SSS, S/P PACEMAKER -- on Metoprolol, decrease dose to prevent hypotension -- not on anticoag per Cardiology -- check pacemaker DM -- hold Lantus -- ISS for now COPD -- not in exacerbation CARLITA -- continue CPAP CHRONIC THROMBOCYTOPENIA MYELODYSPLASTIC SYNDROME -- Hg and Plt stable CODE STATUS DNR per son DISPO pending resident of [facility] Current Inpatient Medications: Current Inpatient Medications Medications (Trade) Dose Ordered Sig/Gin Route Start Time Stop Time Status Last Admin Dose Admin Sodium Chloride 1,000 ml @ 75 mls/hr [id number] IV 12/16/16 19:00 01/15/17 18:59 12/17/16 07:44 75 MLS/HR Vancomycin HCl (Consult) 1 UD N/A 12/16/16 18:59 01/15/17 18:58 Insulin Aspart (novoLOG ASPART) SLIDING SCALE If C... ACHS SC 12/16/16 21:00 01/15/17 20:59 12/17/16 08:37 2 UNITS Glucose (Glucose 40% Gel) 15-30 GRAMS 15 GRAMS... UD PRN PO 12/16/16 19:00 01/15/17 18:59 Glucose (Glucose Chew Tab) 4-8 Tablets 4 Tabl... UD PRN PO 12/16/16 19:00 01/15/17 18:59 Dextrose (Dextrose 50% 50ML Syringe) 25-50ML OF 50% DW IV FOR... UD PRN IV 12/16/16 19:00 01/15/17 18:59 Glucagon (Glucagon Inj) 1 mg UD PRN SQ 12/16/16 19:00 01/15/17 18:59 Famotidine (Pepcid Tab) 20 mg QPM PO 12/16/16 21:00 01/15/17 20:59 12/16/16 20:21 20 MG Pantoprazole Sodium (Protonix Tab) 40 mg DAILY PO 12/17/16 09:00 01/16/17 08:59 12/17/16 07:45 40 MG Piperacillin Sod/ Tazobactam Sod (Consult) 1 UD N/A 12/16/16 19:00 8/27/17 18:59 Acetaminophen (Tylenol Tab) 650 mg Q4H PRN PO 12/16/16 19:00 01/15/17 18:59 Piperacillin Sod/ Tazobactam Sod 3.375 gm/Dextrose 115 ml @ 28.75 mls/ hr Q8@0400,1200,2000 IV 12/17/16 04:00 12/24/16 03:59 12/17/16 04:13 28.75 MLS/HR Vancomycin HCl 1500 mg/Sodium Chloride 530 ml @ 200 mls/hr Q24H IV 12/17/16 22:00 12/19/16 21:59 Fluticasone Propionate (Flonase Nasal [place]) 1 sprays DAILY MAGAN 12/18/16 09:00 01/17/17 08:59 UNV Folic Acid (Folvite Tab) 1 mg DAILY PO 12/18/16 09:00 01/17/17 08:59 UNV Metoprolol Succinate (Toprol Xl Tab) 12.5 mg DAILY PO 12/18/16 09:00 01/17/17 08:59 UNV Metoprolol Succinate (Toprol Xl Tab) 12.5 mg 0908 ONCE PO 12/17/16 09:08 12/17/16 09:09 UNV
--- NOTE | 2016-12-17 12:27 | GASTROINTESTINAL CONSULTATION ---
DATE OF CONSULTATION: 12/17/2016 DATE OF CONSULTATION: 12/17/2016 CHIEF COMPLAINT: Abnormal imaging. HISTORY OF PRESENT ILLNESS: The patient is an 86-year-old male with numerous medical problems, referred to gastroenterology for evaluation of trace ascites and question of cirrhosis on imaging studies. The patient was brought into the hospital yesterday afternoon after having worsening hypotension and weakness. The patient has multiple medical problems to include chronic kidney disease, paroxysmal atrial fibrillation, chronic thrombocytopenia, 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, COPD and a history of a dilated cardiomyopathy. The patient is unable to give much historical detail today and seems somewhat sleepy during my evaluation. Of note, he did have a CT scan performed during a recent hospitalization after a fall, which showed a suspicious lesion in the right hepatic lobe. Unfortunately, due to his renal failure, contrast enhanced study is not possible. The patient does have a history of bladder cancer and is presently followed by a urologist. PAST MEDICAL HISTORY: 1. COPD. 2. Depression. 3. Chronic kidney disease. 4. Hypertension. 5. Diabetes. 6. Gastroesophageal reflux. 7. Ischemic cardiomyopathy. 8. Obstructive sleep apnea. 9. Hypercholesterolemia. 10. Myelodysplastic syndrome. 11. Bladder cancer. OUTPATIENT MEDICATIONS: 1. Pepcid 20 mg daily. 2. Protonix 40 mg daily. 3. Folic acid 1 mg daily. 4. Lasix 40 mg twice daily. 5. Potassium chloride 20 mEq daily. 6. Lexapro 10 mg daily. 7. Lantus insulin. 8. Nitrostat. 9. Flonase 50 mcg twice daily. 10. Oxygen supplementation, CPAP at bedtime. PAST SURGICAL HISTORY: Bladder history. The patient is unable to tell me any other surgical procedures. FAMILY HISTORY: No history of liver problems noted. OUTPATIENT ALLERGIES: PROPRANOLOL, CODEINE. REVIEW OF SYSTEMS: CONSTITUTIONAL: No fevers, no chills today. HEAD, EYES, EARS, NOSE, AND THROAT: No visual changes noted by patient. PULMONARY: The patient with history of shortness of breath. CARDIAC: No chest pain, no palpitations today. GENITOURINARY: No dysuria noted. MUSCULOSKELETAL: No new joint pains. The patient does note having weakness. DERMATOLOGY: No new rashes. SKIN: No itching. ENDOCRINE: No polyuria, no polydipsia noted. PSYCHIATRIC: History of depression but no suicidal ideation. NEUROLOGIC: No headaches today. OBJECTIVE: VITAL SIGNS: Temperature 36.4, pulse 64, respiratory rate 20, blood pressure is 103/65. HEAD, EYES, EARS, NOSE, AND THROAT: No scleral icterus noted. The patient with trace JVD. CARDIAC: Regular rhythm today. Systolic murmur heard. PULMONARY: Clear to auscultation. I did not hear any crackles in the bases. ABDOMEN: Obese, soft, no caput medusa noted. No peritoneal signs noted. NEUROLOGIC: The patient without asterixis. He does have slurred speech and seems somnolent. EXTREMITIES: The patient with 2+ pitting edema bilaterally. IMAGING: Ultrasound dated 12/16/2016 mild to moderate ascites. CT dated 10/17/2016 possible 2.7 cm lesion in the right hepatic dome. IMPRESSION: An 86-year-old male with numerous medical problems, presenting with weakness, fatigue and question of infection. Gastroenterology is consulted due to the imaging findings noted during a recent evaluation. The patient has numerous problems and I am not certain that any of these are reversible, perhaps the patient and family may want to consider hospice care. In the meantime, I would suggest a repeat CT of the abdomen without IV contrast to look for obvious growth in the liver lesions seen during his last evaluation. If the lesion is still present or growth is noted perhaps a PET scan would be beneficial for this patient. The patient does seem somewhat somnolent and does have an elevated ammonia and would suggest the addition of lactulose 1-2 times daily. If this is insufficient you could consider addition of rifaximin 550 mg twice daily. RECOMMENDATIONS: 1. Consider CT of the abdomen. 2. ProBNP to evaluate for evidences of congestive heart failure. 3. Low sodium diet. 4. Will defer to nephrology for dosing of diuretics. 5. Consider addition of lactulose 1-2 times daily. 6. Please call with any questions or concerns.
[2016-12-17] MEDS: LACTULOSE SYRUP 10 GM/15 ML BTL 473 ML PO SCH ×2 (14:27→20:51)
--- NOTE | 2016-12-17 15:46 | Pharmacy Progress Note ---
Pharmacy Antibiotic Prog Note Date of Service Dec 17, 2016. Subjective The patient is currently receiving Zosyn 3.375 Gm IV (infused over 4 hr) every 8 hours, and vancomycin dosed empirically. The patient is currently on day # 2 of Zosyn and vancomycin IV therapy. Objective Height (Feet): 6 Height (Inches): 0.00 Weight (Kilograms): 110.000 Levels: Item Value Date Time Random Vancomycin Level 22.9 mcg/ml 12/17/16 0411 Previous dose vancomycin 2800 mg hung 12/16/16 @1730. Lab Results (24hrs): Test 12/16/16 19:57 12/17/16 04:11 12/17/16 07:29 12/17/16 09:28 Lactic Acid Level 1.7 mmol/L (0.4-2.0) 1.3 mmol/L (0.4-2.0) White Blood Count 3.63 K/uL (4.8-10.8) Red Blood Count 3.07 M/uL (4.7-6.1) Hemoglobin 8.0 g/dL (14.0-18.0) Hematocrit 26.5 % (42-52) Mean Corpuscular Volume 86.3 fL (80-100) Mean Corpuscular Hemoglobin 26.1 pg (25-34) Mean Corpuscular Hemoglobin Concent 30.2 g/dl (32-36) Platelet Count 57 K/uL (130-400) Mean Platelet Volume 9.8 fL (7.4-10.4) Neutrophils (%) (Auto) 77.4 % Lymphocytes (%) (Auto) 9.6 % Monocytes (%) (Auto) 9.6 % Eosinophils (%) (Auto) 2.5 % Basophils (%) (Auto) 0.6 % Neutrophils # (Auto) 2.81 K/uL (1.4-6.5) Lymphocytes # (Auto) 0.35 K/uL (1.2-3.4) Monocytes # (Auto) 0.35 K/uL (0.11-0.59) Eosinophils # (Auto) 0.09 K/uL (0-0.5) Basophils # (Auto) 0.02 K/uL (0-0.2) RDW Standard Deviation 52.9 fL (36.4-46.3) RDW Coefficient of Variation 16.8 % (11.5-14.5) Immature Granulocyte % (Auto) 0.3 % Immature Granulocyte # (Auto) 0.01 K/uL (0.00-0.02) Ovalocytes 1+ Sodium Level 145 mmol/L (136-145) Potassium Level 3.9 mmol/L (3.5-5.1) Chloride Level 111 mmol/L (98-107) Carbon Dioxide Level 30 mmol/L (21-32) Anion Gap 4.0 mmol/L (3-11) Blood Urea Nitrogen 56 mg/dl (7-18) Creatinine 2.90 mg/dl (0.60-1.40) Est Creatinine Clear Calc Drug Dose 23.4 ml/min Estimated GFR () 21.7 Estimated GFR (Non- 18.7 BUN/Creatinine Ratio 19.2 (10-20) Random Glucose 152 mg/dl (70-99) Calcium Level 7.7 mg/dl (8.5-10.1) Magnesium Level 2.6 mg/dl (1.8-2.4) Random Vancomycin Level 22.9 mcg/ml Bedside Glucose 146 mg/dl (70-99) Ammonia 81.0 umol/L (11-32) Pro-B-Type Natriuretic Peptide 5440 pg/ml (0-1800) Test 12/17/16 12:04 Bedside Glucose 212 mg/dl (70-99) Renal function improving. Micro Results: 12/16 urine NG 12/16 blood x2 pending Recent Pertinent Medications Item Value Date Time Vancomycin HCl 530 ml @ 200 mls/hr 12/17/16 2200 1500 mg/Sodium Q24H/IV Chloride Piperacillin Sod/ 115 ml @ 28.75 mls/hr 12/17/16 0400 Tazobactam Sod Q8@0400,1200,2000/IV 12/17/16 1217 3.375 gm/Dextrose Piperacillin Sod/ 115 ml @ 230 mls/hr 12/16/16 1930 Tazobactam Sod NOW ONCE/IV 12/16/162020 3.375 gm/Dextrose Cefepime HCl 1000 111.3 ml @ 200 mls/hr 12/16/16 1546 mg/Dextrose NOW STAT/IV 12/16/16 1627 Vancomycin HCl 556 ml @ 200 mls/hr 12/16/16 1546 2800 mg/Sodium ONE STAT/IV 12/16/16 1730 Chloride Assessment & Plan This drug level is: Supratherapeutic, but is not a true trough. Renal function is improving, so will start q24h vancomycin and check trough if empiric therapy is extended beyond 2 days. If renal function declines again, will need to extend dosing interval. Change to vancomycin 1500 mg IV every 24 hours. Goal peak level estimate: between 25 - 40 mcg/mL. Goal trough level estimate: between 15-20 mcg/mL. Repeat levels will be ordered if therapy is continued. Zosyn will continue 3.375 Gm IV (infused over 4 hr) q8h, for CrCl greater than 20 ml/min. Pharmacy will continue to follow and will adjust dose/frequency as necessary. Thank you
[2016-12-17] MEDS: FAMOTIDINE 20 MG TAB PO SCH (20:48)
[2016-12-17] MEDS ORDERED: VANCOMYCIN INJ 1,500 MG in SODIUM CHLORIDE 0.9% 500ML 500 ML IV SCH (22:00)
[2016-12-18] MEDS: PIPERACILL/TAZOBAC IV 3.375 GM in DEXTROSE 5% 100ML IV SCH ×3 (03:43→21:10)
[2016-12-18 04:36] VITALS: BP 102/65; PULSE 77; TEMP 36.5; O2SAT 98
[2016-12-18 07:40] VITALS: BP 94/56; PULSE 72; TEMP 36.5; O2SAT 98
[2016-12-18] MEDS: PANTOprazole SOD 40 MG TAB PO SCH (08:19)
[2016-12-18] MEDS: METOPROLOL SUCC 25MG EXT REL TAB PO SCH (08:20)
[2016-12-18] MEDS: LACTULOSE SYRUP 10 GM/15 ML BTL 473 ML PO SCH ×3 (08:20→21:10)
[2016-12-18] MEDS: FLUTICASONE PROPIONATE NA SPR 16 GM BTL NAE SCH (08:21)
[2016-12-18] MEDS: INSULIN ASPART 100 UNITS/ML 3 ML PEN SC SCH ×4 (08:32→21:20)
[2016-12-18 08:51] LABS: HEMATOCRIT 30.4 % (42-52); MEAN CELL VOLUME 86.4 fL (80-100); MEAN CORPUSCULAR HEMOGLOBIN 26.1 pg (25-34); MEAN CORPUSCULAR HGB CONC 30.3 g/dl (32-36); RED BLOOD COUNT 3.52 M/uL (4.7-6.1); WHITE BLOOD COUNT 5.09 K/uL (4.8-10.8)
[2016-12-18 08:55] LABS: MEAN PLATELET VOLUME 9.6 fL (7.4-10.4); PLATELET COUNT 77 K/uL (130-400)
[2016-12-18 09:16] LABS: BUN/CREATININE RATIO 17.5 (10-20); CALCIUM 7.9 mg/dl (8.5-10.1); CREATININE 2.6 mg/dl (0.60-1.40); MAGNESIUM 2.5 mg/dl (1.8-2.4); POTASSIUM 3.5 mmol/L (3.5-5.1)
[2016-12-18 09:21] LABS: BASO % 0.2 %; BASO ABS # 0.01 K/uL (0-0.2); COMPLETE YES; EOS % 2.2 %; IG% 0.2 %; LYMPH % 8.4 %; LYMPH ABS # 0.43 K/uL (1.2-3.4); MONO % 7.9 %; NEUT % 81.1 %; OVALOCYTES 1+; POIKILOCYTOSIS PRESENT
--- NOTE | 2016-12-18 09:42 | Gastroenterology Progress Note ---
Progress Note Date of Service: Dec 18, 2016 Subjective Pt evaluation today including: conversation w/ patient, physical exam The patient seems much more alert this morning. He is able to answer simple questions and is much less somnolent than 24 hours ago. Review of Systems Constitutional: No fever, No sweats, No fatigue Respiratory: No cough, No wheezing, No dyspnea at rest Abdomen: No nausea, No vomiting, No diarrhea, No constipation Medications Current Inpatient Medications Medications (Trade) Dose Ordered Sig/Gin Route Start Time Stop Time Status Last Admin Dose Admin Sodium Chloride 1,000 ml @ 60 mls/hr [id number] IV 12/16/16 19:00 01/15/17 18:59 12/17/16 22:06 60 MLS/HR Vancomycin HCl (Consult) 1 mauricio UD N/A 12/16/16 18:59 01/15/17 18:58 Insulin Aspart (novoLOG ASPART) SLIDING SCALE If C... ACHS SC 12/16/16 21:00 01/15/17 20:59 12/18/16 08:32 2 UNITS Glucose (Glucose 40% Gel) 15-30 GRAMS 15 GRAMS... UD PRN PO 12/16/16 19:00 01/15/17 18:59 Glucose (Glucose Chew Tab) 4-8 Tablets 4 Tabl... UD PRN PO 12/16/16 19:00 01/15/17 18:59 Dextrose (Dextrose 50% 50ML Syringe) 25-50ML OF 50% DW IV FOR... UD PRN IV 12/16/16 19:00 01/15/17 18:59 Glucagon (Glucagon Inj) 1 mg UD PRN SQ 12/16/16 19:00 01/15/17 18:59 Famotidine (Pepcid Tab) 20 mg QPM PO 12/16/16 21:00 01/15/17 20:59 12/17/16 20:48 20 MG Pantoprazole Sodium (Protonix Tab) 40 mg DAILY PO 12/17/16 09:00 01/16/17 08:59 12/18/16 08:19 40 MG Piperacillin Sod/ Tazobactam Sod (Consult) 1 mauricio UD N/A 12/16/16 19:00 01/15/17 18:59 Acetaminophen (Tylenol Tab) 650 mg Q4H PRN PO 12/16/16 19:00 01/15/17 18:59 Piperacillin Sod/ Tazobactam Sod 3.375 gm/Dextrose 115 ml @ 28.75 mls/ hr Q8@0400,1200,2000 IV 12/17/16 04:00 12/24/16 03:59 12/18/16 03:43 28.75 MLS/HR Vancomycin HCl 1500 mg/Sodium Chloride 530 ml @ 200 mls/hr Q24H IV 12/17/16 22:00 12/19/16 21:59 12/17/16 22:05 200 MLS/HR Fluticasone Propionate (Flonase Nasal [place]) 1 sprays DAILY MAGAN 12/18/16 09:00 01/17/17 08:59 12/18/16 08:21 1 SPRAYS Folic Acid (Folvite Tab) 1 mg DAILY PO 12/18/16 09:00 01/17/17 08:59 12/18/16 08:19 1 MG Metoprolol Succinate (Toprol Xl Tab) 12.5 mg DAILY PO 12/18/16 09:00 01/17/17 08:59 Lactulose (Chronulac Syrup) 15 gm TID PO 12/17/16 14:00 01/16/17 13:59 12/17/16 20:51 15 GM Objective Vital Signs Date Time Temp Pulse Resp B/P (MAP) Pulse Ox O2 Delivery O2 Flow Rate FiO2 12/18/16 07:40 36.5 72 20 94/56 (69) 98 12/18/16 04:36 36.5 77 18 102/65 (77) 98 Room Air 12/18/16 04:12 Room Air 12/18/16 00:12 Room Air 12/17/16 23:34 36.4 75 20 120/78 (92) 99 Room Air 12/17/16 20:05 Room Air 12/17/16 19:27 36.4 65 18 106/66 (79) 98 Room Air 12/17/16 16:30 98 Room Air 12/17/16 14:53 36.5 69 20 93/59 (70) 98 Room Air 12/17/16 12:00 98 Room Air 12/17/16 11:26 36.4 64 20 103/65 (78) 98 12/17/16 09:49 75 97/62 (74) Physical Exam General Appearance: no apparent distress Eyes: PERRL Respiratory/Chest: + decreased breath sounds Cardiovascular: + systolic murmur Abdomen: soft, + distended Skin: no rash Laboratory Results Last 24 Hours Test 12/17/16 12:04 12/17/16 16:12 12/17/16 19:45 12/18/16 07:34 Bedside Glucose 212 mg/dl 232 mg/dl 290 mg/dl 156 mg/dl Test 12/18/16 08:30 White Blood Count 5.09 K/uL Red Blood Count 3.52 M/uL Hemoglobin 9.2 g/dL Hematocrit 30.4 % Mean Corpuscular Volume 86.4 fL Mean Corpuscular Hemoglobin 26.1 pg Mean Corpuscular Hemoglobin Concent 30.3 g/dl Platelet Count 77 K/uL Mean Platelet Volume 9.6 fL Neutrophils (%) (Auto) 81.1 % Lymphocytes (%) (Auto) 8.4 % Monocytes (%) (Auto) 7.9 % Eosinophils (%) (Auto) 2.2 % Basophils (%) (Auto) 0.2 % Neutrophils # (Auto) 4.13 K/uL Lymphocytes # (Auto) 0.43 K/uL Monocytes # (Auto) 0.40 K/uL Eosinophils # (Auto) 0.11 K/uL Basophils # (Auto) 0.01 K/uL RDW Standard Deviation 52.8 fL RDW Coefficient of Variation 16.7 % Immature Granulocyte % (Auto) 0.2 % Immature Granulocyte # (Auto) 0.01 K/uL Poikilocytosis PRESENT Ovalocytes 1+ Sodium Level 144 mmol/L Potassium Level 3.5 mmol/L Chloride Level 109 mmol/L Carbon Dioxide Level 25 mmol/L Anion Gap 10.0 mmol/L Blood Urea Nitrogen 46 mg/dl Creatinine 2.60 mg/dl Est Creatinine Clear Calc Drug Dose 26.5 ml/min Estimated GFR () 24.8 Estimated GFR (Non- 21.4 BUN/Creatinine Ratio 17.5 Random Glucose 171 mg/dl Calcium Level 7.9 mg/dl Magnesium Level 2.5 mg/dl Assessment and Plan Elderly male with numerous medical problems to include congestive heart failure and chronic renal insufficiency. 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 I would wonder if he would benefit from having evaluations by both nephrology and cardiology out colitis with diuretic therapy given his renal insufficiency and heart disease. Recommendations Consider cardiology and nephrology evaluation Low-sodium diet Continue lactulose 1-2 times daily I would defer dosing of diuretics to cardiology and nephrology
[2016-12-18 11:13] VITALS: BP 96/64; PULSE 73; TEMP 36.5; O2SAT 94
--- NOTE | 2016-12-18 14:10 | Nephrology Consultation ---
Nephrology Consultation Date of Consultation: Dec 18, 2016. Reason for Consultation: ARF on CKD 4 History of Present Illness 86 year old male with history of CKD 4--baseline creat in the 2's for last few months, Paroxysmal A fib, SSS s/p PM, DM, HTN, COPD, Cirrhosis, CARLITA, Myelodysplastic Syndrome, Chronic Thrombocytopenia presenting with hypotension and weakness. Patient follows with Dr. Chong for Nephrology and Dr. Garza for PCP. Patient was admitted to [facility] last September 2016 for Strep Bacteremia and discharged to SNF. He has gradually became weaker for last few months. He was also noted to have low blood pressure readings as wellwhcih was the trigger for ED transfer. Lactic acid elevated at 3, Crea 3.2. Since admission has got iv fluids--even now. Patient denies headache, abdominal pain, dysuria. He has occasional cough with yellow sputum and occasional diarrhea. Has massive edema currently. Home Medications Scheduled Famotidine (Pepcid), 20 MG PO QPM Fluticasone Propionate (Nasal) (Flonase Allergy Relief), 2 SPRAY MAGAN DAILY Folic Acid (Folic Acid), 1 MG PO DAILY Furosemide (Lasix), 20 MG PO BID Insulin Glargine (Lantus), 24 UNITS SC HS Metoprolol Succ (Toprol Xl) (Toprol-Xl), 25 MG PO DAILY Nitroglycerin (Nitrostat), 0.4 MG UT PRN Pantoprazole (Protonix), 40 MG PO DAILY Scheduled PRN Acetaminophen Tab (Tylenol), 650 MG PO Q4 PRN for Fever Review of Systems Constitutional- no fever; no weight loss Eyes- no acute visual changes ENT- no sinus drainage; no pharyngitis Pulmonary- (+) as noted above Cardiac- no chest pain, no palpitations, no orthopnea, no dependent edema GI- no nausea, no vomiting, no diarrhea, no melena, no hematochezia - no dysuria, no hematuria Musculoskeletal- no arthralgias, no myalgias Derm- no rashes, no new skin lesions, no changing skin lesions Hematologic- no unusual bruising, no unusual bleeding Lymphatics- no adenopathy Endocrine- no polyuria or polydipsia; no heat or cold intolerance Neuro- no headaches, no focal neurologic symptoms Psych- no anxiety, no depression Past Medical/Surgical History Medical Problems: (1) Acute on chronic renal failure Status: Acute (2) MAGEN (acute kidney injury) Status: Acute (3) Anasarca Status: Acute (4) Bilateral leg edema Status: Acute (5) CHF (congestive heart failure) Status: Acute (6) Dehydration Status: Acute (7) Dyspnea on exertion Status: Acute (8) Elevated lactic acid level Status: Acute (9) Elevated troponin Status: Acute (10) Generalized weakness Status: Acute (11) Hypotension Status: Acute (12) Pulmonary edema Status: Acute (13) Right heart failure Status: Acute Family History FHx: heart disease Social History Smoking Status: Never Smoker Alcohol Use: none Drug Use: none Marital Status: Housing Status: lives alone Occupation Status: unemployed Allergies Coded Allergies: Propranolol (Verified Allergy, Unknown, 10/16/16) Codeine (Verified Adverse Reaction, Mild, NOTED "DOESNT TOLERATE WELL" , 10/16/16) Medications Current Inpatient Medications Medications (Trade) Dose Ordered Sig/Gin Route Start Time Stop Time Status Last Admin Dose Admin Sodium Chloride 1,000 ml @ 60 mls/hr [id number] IV 12/16/16 19:00 01/15/17 18:59 12/17/16 22:06 60 MLS/HR Vancomycin HCl (Consult) 1 ea UD N/A 12/16/16 18:59 01/15/17 18:58 Insulin Aspart (novoLOG ASPART) SLIDING SCALE If C... ACHS SC 12/16/16 21:00 01/15/17 20:59 12/18/16 12:21 5 UNITS Glucose (Glucose 40% Gel) 15-30 GRAMS 15 GRAMS... UD PRN PO 12/16/16 19:00 01/15/17 18:59 Glucose (Glucose Chew Tab) 4-8 Tablets 4 Tabl... UD PRN PO 12/16/16 19:00 01/15/17 18:59 Dextrose (Dextrose 50% 50ML Syringe) 25-50ML OF 50% DW IV FOR... UD PRN IV 12/16/16 19:00 01/15/17 18:59 Glucagon (Glucagon Inj) 1 mg UD PRN SQ 12/16/16 19:00 01/15/17 18:59 Famotidine (Pepcid Tab) 20 mg QPM PO 12/16/16 21:00 01/15/17 20:59 12/17/16 20:48 20 MG Pantoprazole Sodium (Protonix Tab) 40 mg DAILY PO 12/17/16 09:00 01/16/17 08:59 12/18/16 08:19 40 MG Piperacillin Sod/ Tazobactam Sod (Consult) 1 ea UD N/A 12/16/16 19:00 01/15/17 18:59 Acetaminophen (Tylenol Tab) 650 mg Q4H PRN PO 12/16/16 19:00 01/15/17 18:59 Piperacillin Sod/ Tazobactam Sod 3.375 gm/Dextrose 115 ml @ 28.75 mls/ hr Q8@0400,1200,2000 IV 12/17/16 04:00 12/24/16 03:59 12/18/16 12:07 28.75 MLS/HR Vancomycin HCl 1500 mg/Sodium Chloride 530 ml @ 200 mls/hr Q24H IV 12/17/16 22:00 12/19/16 21:59 12/17/16 22:05 200 MLS/HR Fluticasone Propionate (Flonase Nasal [place]) 1 sprays DAILY MAAGN 12/18/16 09:00 01/17/17 08:59 12/18/16 08:21 1 SPRAYS Folic Acid (Folvite Tab) 1 mg DAILY PO 12/18/16 09:00 01/17/17 08:59 12/18/16 08:19 1 MG Metoprolol Succinate (Toprol Xl Tab) 12.5 mg DAILY PO 12/18/16 09:00 01/17/17 08:59 Lactulose (Chronulac Syrup) 15 gm TID PO 12/17/16 14:00 01/16/17 13:59 12/17/16 20:51 15 GM Home Meds and Scripts Medications Dose Route/Sig Max Daily Dose Days Date Category Dose Instructions Toprol-Xl (Metoprolol Succinate) 25 Mg Tabcr 25 Mg PO DAILY 12/16/16 Reported Lasix (Furosemide) 40 Mg Tab 20 Mg PO BID 12/16/16 Reported Lantus (Insulin Glargine) 100 Unit/Ml Inj 24 Units SC HS 30 09/09/16 Rx Flonase Allergy Relief (Fluticasone Propionate (Nasal)) 50 Mcg/Act Spr 2 [place] MAGAN DAILY 09/01/16 Reported Protonix (Pantoprazole Sodium) 40 Mg Tab 40 Mg PO DAILY 09/01/16 Reported Pepcid (Famotidine) 20 Mg Tab 20 Mg PO QPM 01/19/14 Reported Tylenol (Acetaminophen) 325 Mg Tab 650 Mg PO Q4 PRN 08/26/13 Reported NOT TO EXCEED 3000MG APAP/24HR Nitrostat (Nitroglycerin) 0.4 Mg Tab 0.4 Mg UT PRN 08/26/13 Reported Folic Acid 1 Mg Tab 1 Mg PO DAILY 08/26/13 Reported Physical Exam Date Time Temp Pulse Resp B/P (MAP) Pulse Ox O2 Delivery O2 Flow Rate FiO2 12/18/16 12:00 Room Air 12/18/16 11:13 36.5 73 20 96/64 (75) 94 12/18/16 08:00 Room Air 12/18/16 07:40 36.5 72 20 94/56 (69) 98 12/18/16 04:36 36.5 77 18 102/65 (77) 98 Room Air 12/18/16 04:12 Room Air 12/18/16 00:12 Room Air 12/17/16 23:34 36.4 75 20 120/78 (92) 99 Room Air 12/17/16 20:05 Room Air 12/17/16 19:27 36.4 65 18 106/66 (79) 98 Room Air 12/17/16 16:30 98 Room Air 12/17/16 14:53 36.5 69 20 93/59 (70) 98 Room Air Physical Exam Vital Signs General Appearance: WD/WN, no apparent distress, + pertinent finding (appears somewhat weak) Head: normocephalic, atraumatic Eyes: normal inspection, PERRL, EOMI ENT: normal ENT inspection, hearing grossly normal, pharynx normal Neck: supple, no adenopathy, thyroid normal, no JVD, trachea midline Respiratory/Chest: chest non-tender, lungs clear, normal breath sounds, no respiratory distress, no accessory muscle use Cardiovascular: regular rate, rhythm, no JVD, no murmur Abdomen/GI: normal bowel sounds, non tender, soft, + pertinent finding (mild abdominal distention) Back: normal inspection, no CVA tenderness Extremities/Musculoskelatal: no calf tenderness, + pertinent finding (grade 1 lower leg edema, no erythema/warmth/tenderness) Neurologic/Psych: systems 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 mechanic II-XII nml as tested, no motor/sensory deficits, alert, normal mood/affect, oriented x 3 Skin: normal color, warm/dry, no rash Lymphatic: no adenopathy Diagnostics Last 24 Hours Test 12/17/16 16:12 12/17/16 19:45 12/18/16 07:34 12/18/16 08:30 Bedside Glucose 232 mg/dl 290 mg/dl 156 mg/dl White Blood Count 5.09 K/uL Red Blood Count 3.52 M/uL Hemoglobin 9.2 g/dL Hematocrit 30.4 % Mean Corpuscular Volume 86.4 fL Mean Corpuscular Hemoglobin 26.1 pg Mean Corpuscular Hemoglobin Concent 30.3 g/dl Platelet Count 77 K/uL Mean Platelet Volume 9.6 fL Neutrophils (%) (Auto) 81.1 % Lymphocytes (%) (Auto) 8.4 % Monocytes (%) (Auto) 7.9 % Eosinophils (%) (Auto) 2.2 % Basophils (%) (Auto) 0.2 % Neutrophils # (Auto) 4.13 K/uL Lymphocytes # (Auto) 0.43 K/uL Monocytes # (Auto) 0.40 K/uL Eosinophils # (Auto) 0.11 K/uL Basophils # (Auto) 0.01 K/uL RDW Standard Deviation 52.8 fL RDW Coefficient of Variation 16.7 % Immature Granulocyte % (Auto) 0.2 % Immature Granulocyte # (Auto) 0.01 K/uL Poikilocytosis PRESENT Ovalocytes 1+ Sodium Level 144 mmol/L Potassium Level 3.5 mmol/L Chloride Level 109 mmol/L Carbon Dioxide Level 25 mmol/L Anion Gap 10.0 mmol/L Blood Urea Nitrogen 46 mg/dl Creatinine 2.60 mg/dl Est Creatinine Clear Calc Drug Dose 26.5 ml/min Estimated GFR () 24.8 Estimated GFR (Non- 21.4 BUN/Creatinine Ratio 17.5 Random Glucose 171 mg/dl Calcium Level 7.9 mg/dl Magnesium Level 2.5 mg/dl Test 12/18/16 11:21 Bedside Glucose 216 mg/dl Assessment & Plan 86 year old male with history of CKD 4, Paroxysmal A fib, SSS s/p PM, DM, HTN, COPD, Cirrhosis, CARLITA, Myelodysplastic Syndrome, Chronic Thrombocytopenia presenting with hypotension and weakness. has some creat elevation. ARF--related with Low BP/Infection/Sepsis. he has e/o fluid overload--CXR as well as exam and Ascites also. He needs diuretics regardless of the creatinine. d/c Iv fluids and start lasix 40 iv q8hr. Creat may or may not go higher. Continue broad spectrum Abx with careful dosing of the vancomicin. Does have CKD 4. Crea 2.0 in September but i would say baseline is more like mid 2's. But given extensive diseases hard to give a baseline when he has never really been euvolemic. Bigger picture he is too far advanced with diseases of Liver ( cirrhosis), CKD 4 ( fluid overload) and CHF and 86 with some dementia. Consider level of care and hospice care discussion. will not be a candidate for dialysis at all.
[2016-12-18] MEDS ORDERED: FUROSEMIDE 40 MG/4 ML VIAL IV STA (14:17)
[2016-12-18] MEDS: FUROSEMIDE INJ 40 MG in SYRINGE 0 ML IV SCH ×2 (14:50→21:13)
[2016-12-18 14:57] VITALS: BP 103/71; PULSE 72; TEMP 36.5; O2SAT 92
--- NOTE | 2016-12-18 17:19 | Progress Note ---
Medicine Progress Note Date & Time of Visit: Dec 18, 2016 at 17:18. Subjective seen resting in bedside chair, eating, comfortable, alert, oriented states he feels somewhat better today no drowsiness, confusion denies chest pain, dyspnea, palpitations denies abdominal pain and leg pain no other symptoms Objective Last 8 Hrs Date Time Temp Pulse Resp B/P (MAP) Pulse Ox O2 Delivery O2 Flow Rate FiO2 12/18/16 14:57 36.5 72 20 103/71 (82) 92 12/18/16 12:00 Room Air 12/18/16 11:13 36.5 73 20 96/64 (75) 94 Physical Exam: General- oriented x 3, not in distress, speaks in sentences with no effort Eyes- anicteric Neck- supple, no JVD Lungs- clear breath sounds bilaterally Heart- irregularly irregular rhythm; no murmur, normal rate Abdomen- normal bowel sounds,mild distension, soft, nontender Extremities- grade 1 lower leg edema, no calf tenderness Neuro- alert, oriented x 3; no gross focal neuro deficit Skin- warm & dry Laboratory Results: Last 24 Hours Test 12/17/16 19:45 12/18/16 07:34 12/18/16 08:30 12/18/16 11:21 Bedside Glucose 290 mg/dl 156 mg/dl 216 mg/dl White Blood Count 5.09 K/uL Red Blood Count 3.52 M/uL Hemoglobin 9.2 g/dL Hematocrit 30.4 % Mean Corpuscular Volume 86.4 fL Mean Corpuscular Hemoglobin 26.1 pg Mean Corpuscular Hemoglobin Concent 30.3 g/dl Platelet Count 77 K/uL Mean Platelet Volume 9.6 fL Neutrophils (%) (Auto) 81.1 % Lymphocytes (%) (Auto) 8.4 % Monocytes (%) (Auto) 7.9 % Eosinophils (%) (Auto) 2.2 % Basophils (%) (Auto) 0.2 % Neutrophils # (Auto) 4.13 K/uL Lymphocytes # (Auto) 0.43 K/uL Monocytes # (Auto) 0.40 K/uL Eosinophils # (Auto) 0.11 K/uL Basophils # (Auto) 0.01 K/uL RDW Standard Deviation 52.8 fL RDW Coefficient of Variation 16.7 % Immature Granulocyte % (Auto) 0.2 % Immature Granulocyte # (Auto) 0.01 K/uL Poikilocytosis PRESENT Ovalocytes 1+ Sodium Level 144 mmol/L Potassium Level 3.5 mmol/L Chloride Level 109 mmol/L Carbon Dioxide Level 25 mmol/L Anion Gap 10.0 mmol/L Blood Urea Nitrogen 46 mg/dl Creatinine 2.60 mg/dl Est Creatinine Clear Calc Drug Dose 26.5 ml/min Estimated GFR () 24.8 Estimated GFR (Non- 21.4 BUN/Creatinine Ratio 17.5 Random Glucose 171 mg/dl Calcium Level 7.9 mg/dl Magnesium Level 2.5 mg/dl Test 12/18/16 16:04 Bedside Glucose 191 mg/dl Assessment & Plan 86 year old male with history of CKD 4, Paroxysmal A fib, SSS s/p PM, DM, HTN, COPD, Cirrhosis, CARLITA, Myelodysplastic Syndrome, Chronic Thrombocytopenia presenting with hypotension and weakness. 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 -- update echo pending -- Lasix IV q8h started may need to consult Cardio CKD 4 Crea 2.0 in September increased to 3.2 as of November today, 3.3 --> 2.9---> 2.6 -- Nephrology consulted lasix 40mg IV q8h started monitor ASCITES, LIVER CIRRHOSIS BY CT SCAN -- noted to have liver cirrhosis last September [address] -- liver US: mild to moderate ascites ammonia 81 -- Lactulose started, mental status improving now on Lasix per Nephro -- Cirrhosis likely Hepatic Congestion from CHF per GI will ff up echo PAROXYSMAL A FIB SSS, S/P PACEMAKER -- on Metoprolol, decrease dose to prevent hypotension -- not on anticoag per Cardiology DM -- hold Lantus -- ISS for now COPD -- not in exacerbation CARLITA -- continue CPAP CHRONIC THROMBOCYTOPENIA MYELODYSPLASTIC SYNDROME -- Hg and Plt stable CODE STATUS DNR per son DVT prophylaxis SCDs contraindicated as patient has edema Anticoag contraindicated as patient as Plt < 100 ambulate DISPO pending resident of [facility] Current Inpatient Medications: Current Inpatient Medications Medications (Trade) Dose Ordered Sig/Gin Route Start Time Stop Time Status Last Admin Dose Admin Insulin Aspart (novoLOG ASPART) SLIDING SCALE If C... ACHS SC 12/16/16 21:00 01/15/17 20:59 12/18/16 12:21 5 UNITS Glucose (Glucose 40% Gel) 15-30 GRAMS 15 GRAMS... UD PRN PO 12/16/16 19:00 01/15/17 18:59 Glucose (Glucose Chew Tab) 4-8 Tablets 4 Tabl... UD PRN PO 12/16/16 19:00 01/15/17 18:59 Dextrose (Dextrose 50% 50ML Syringe) 25-50ML OF 50% DW IV FOR... UD PRN IV 12/16/16 19:00 01/15/17 18:59 Glucagon (Glucagon Inj) 1 mg UD PRN SQ 12/16/16 19:00 01/15/17 18:59 Famotidine (Pepcid Tab) 20 mg QPM PO 12/16/16 21:00 01/15/17 20:59 12/17/16 20:48 20 MG Pantoprazole Sodium (Protonix Tab) 40 mg DAILY PO 12/17/16 09:00 01/16/17 08:59 12/18/16 08:19 40 MG Piperacillin Sod/ Tazobactam Sod (Consult) 1 ea UD N/A 12/16/16 19:00 01/15/17 18:59 Acetaminophen (Tylenol Tab) 650 mg Q4H PRN PO 12/16/16 19:00 01/15/17 18:59 Piperacillin Sod/ Tazobactam Sod 3.375 gm/Dextrose 115 ml @ 28.75 mls/ hr Q8@0400,1200,2000 IV 12/17/16 04:00 12/24/16 03:59 12/18/16 12:07 28.75 MLS/HR Fluticasone Propionate (Flonase Nasal [place]) 1 sprays DAILY MAGAN 12/18/16 09:00 01/17/17 08:59 12/18/16 08:21 1 SPRAYS Folic Acid (Folvite Tab) 1 mg DAILY PO 12/18/16 09:00 01/17/17 08:59 12/18/16 08:19 1 MG Metoprolol Succinate (Toprol Xl Tab) 12.5 mg DAILY PO 12/18/16 09:00 01/17/17 08:59 Lactulose (Chronulac Syrup) 15 gm TID PO 12/17/16 14:00 01/16/17 13:59 12/17/16 20:51 15 GM Furosemide 40 mg/ Syringe 4 ml @ 4 mls/min Q8@0600,1400,2200 IV 12/18/16 15:00 01/17/17 14:59 12/18/16 14:50 4 MLS/MIN
[2016-12-18 18:58] VITALS: BP 92/57; PULSE 76; TEMP 36.5; O2SAT 95
[2016-12-18] MEDS: FAMOTIDINE 20 MG TAB PO SCH (21:11)
[2016-12-18 23:32] VITALS: BP 99/64; PULSE 64; TEMP 36.5; O2SAT 96
[2016-12-19] VITALS (8 sets, daily range): BP systolic 90–132; BP diastolic 57–75; PULSE 63–73; TEMP 36.5–36.7; O2SAT 95–100
[2016-12-19] MEDS: PIPERACILL/TAZOBAC IV 3.375 GM in DEXTROSE 5% 100ML IV SCH ×2 (03:54→12:04)
[2016-12-19 06:08] LABS: HEMATOCRIT 29.8 % (42-52); MEAN CELL VOLUME 85.4 fL (80-100); MEAN CORPUSCULAR HEMOGLOBIN 24.9 pg (25-34); MEAN CORPUSCULAR HGB CONC 29.2 g/dl (32-36); RED BLOOD COUNT 3.49 M/uL (4.7-6.1); WHITE BLOOD COUNT 4.52 K/uL (4.8-10.8)
[2016-12-19] MEDS: FUROSEMIDE INJ 40 MG in SYRINGE 0 ML IV SCH ×2 (06:23→18:15)
[2016-12-19 06:37] LABS: BUN/CREATININE RATIO 16.6 (10-20); CALCIUM 7.7 mg/dl (8.5-10.1); CREATININE 2.5 mg/dl (0.60-1.40); MAGNESIUM 2.2 mg/dl (1.8-2.4); POTASSIUM 3.2 mmol/L (3.5-5.1)
[2016-12-19 06:47] LABS: MEAN PLATELET VOLUME 9.3 fL (7.4-10.4); PLATELET COUNT 71 K/uL (130-400)
[2016-12-19 07:01] LABS: ANISOCYTOSIS PRESENT; BASO % 0.7 %; BASO ABS # 0.03 K/uL (0-0.2); COMPLETE YES; EOS % 3.3 %; IG% 0.2 %; LYMPH % 7.7 %; LYMPH ABS # 0.35 K/uL (1.2-3.4); NEUT % 78.1 %; OVALOCYTES 1+
[2016-12-19] MEDS: FLUTICASONE PROPIONATE NA SPR 16 GM BTL NAE SCH (08:05)
[2016-12-19] MEDS: PANTOprazole SOD 40 MG TAB PO SCH (08:05)
[2016-12-19] MEDS: LACTULOSE SYRUP 10 GM/15 ML BTL 473 ML PO SCH ×3 (08:06→21:12)
[2016-12-19] MEDS: INSULIN ASPART 100 UNITS/ML 3 ML PEN SC SCH ×4 (08:22→21:14)
[2016-12-19] MEDS: METOPROLOL SUCC 25MG EXT REL TAB PO SCH (08:22)
--- NOTE | 2016-12-19 09:33 | Clinical Documentation Query ---
QUERY 1 OF 4 ODELL Anglin : CLINICAL DOCUMENTATION QUERY In your clinical opinion is this patient being managed for: ( ) Hepatorenal syndrome ( x) Other explanation of clinical findings (Please Explain) Doubt hepatorenal syndrome at this time ( ) Unable to determine (Please Define) ( ) Need to Discuss ( ) Not Agree The medical record reflects the following clinical findings, treatment, and risk factors. Clinical Indicators: 86 yo male presenting with worsening confusion, falls, increasing ascites and weakness. BUN 60, Cr 3.30 with a baseline of 2.0. Ammonia level 81 Treatment: IV lasix, nephrology consult, tele, lactulose, Risk Factors:age, cirrhosis, CKD, ascites Hepatorenal syndrome (HRS) is the development of renal failure (oliguria in the absence of proteinuria) in patients with advanced chronic liver disease and, occasionally, fulminant hepatitis, who have portal hypertension and ascites. Estimates indicate that at least 40% of patients with cirrhosis and ascites will develop HRS during the natural history of their disease. In HRS, the histological appearance of the kidneys is normal, and the kidneys often resume normal function following liver transplantation. Most individuals with cirrhosis who develop hepatorenal syndrome (HRS) have nonspecific symptoms, such as fatigue, malaise, or dysgeusia. Development of HRS is usually noticed when patients observe decreased urine output and when lab values show a decline in renal function. QUERY 2 OF 4 In your clinical opinion is this patient being managed for: ( X ) Acute hepatic encephalopathy in addition to metabolic encephalopathy ( ) acute hepatic encephalopathy only ( ) metabolic encephalopathy only ( ) Other explanation of clinical findings (Please Explain) ( ) Unable to determine (Please Define) ( ) Need to Discuss ( ) Not Agree The medical record reflects the following clinical findings, treatment, and risk factors. Clinical Indicators: Pt noted to have increasing confusion. Documentation in the progress notes indicates mental status improving. 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 Clinical Indicators: Pt presented with hypotension/volume depletion. Cr 3.30 with a known baseline of Cr in mid 2.0 range. Treatment: monitor PRP's, initially IV fluids Risk Factors: hypotension, CKD stage IV, cirrhosis, UTI QUERY 4 OF 4 In your clinical opinion is this patient being managed for: ( ) Acute diastolic CHF ( ) Chronic diastolic CHF ( ) Acute on Chronic diastolic CHF ( X ) Other explanation of clinical findings (Please Explain) Updated echo does not indicate CHF ( ) Unable to determine (Please Define) ( ) Need to Discuss ( ) Not Agree The medical record reflects the following clinical findings, treatment, and risk factors. Clinical Indicators: Pt presented with increasing ascites, BNP 5440, CXR with pulmonary vascular congestion with possible mild pulmonary edema. H/P indicates r/o CHF. Nephrology indicates pt with evidence of volume overload Treatment:tele, IV lasix, pending ECHO, nephrology consult Risk Factors: age, MAGEN, cirrhosis, HTN, COPD, PAF, CKD stage IV Please clarify and document your clinical opinion in the progress notes and discharge summary. Terms such as "probable", "suspected", "likely", "questionable", "possible", or "still to be ruled out" are acceptable. IF IN AGREEMENT, YOU MUST DOCUMENT ABOVE DIAGNOSTIC STATEMENT IN DAILY PROGRESS NOTES AND DISCHARGE SUMMARY. This document is not part of the patient's record. Thank You, Sandra Andrade, RN [phone]
[2016-12-19] MEDS ORDERED: POTASSIUM CHLORIDE 20 MEQ TABCR PO ONE (09:45)
--- NOTE | 2016-12-19 13:55 | Gastroenterology Progress Note ---
Progress Note Date of Service: Dec 19, 2016 Subjective Pt evaluation today including: conversation w/ patient, physical exam, chart review, lab review 86yo looking chronically ill, being followed with multiple comorbidities, GI following for cirrhosis likely secondary to CHF pt resting comfortably at time of follow up, poor historian, does not offer complaints, seems slower to respond today chart/labs reviewed Review of Systems Constitutional: + see HPI (ROS limited given underlying condition, pt does not offer complaints today) Medications Current Inpatient Medications Medications (Trade) Dose Ordered Sig/Gin Route Start Time Stop Time Status Last Admin Dose Admin Insulin Aspart (novoLOG ASPART) SLIDING SCALE If C... ACHS SC 12/16/16 21:00 01/15/17 20:59 12/19/16 12:03 2 UNITS Glucose (Glucose 40% Gel) 15-30 GRAMS 15 GRAMS... UD PRN PO 12/16/16 19:00 01/15/17 18:59 Glucose (Glucose Chew Tab) 4-8 Tablets 4 Tabl... UD PRN PO 12/16/16 19:00 01/15/17 18:59 Dextrose (Dextrose 50% 50ML Syringe) 25-50ML OF 50% DW IV FOR... UD PRN IV 12/16/16 19:00 01/15/17 18:59 Glucagon (Glucagon Inj) 1 mg UD PRN SQ 12/16/16 19:00 01/15/17 18:59 Famotidine (Pepcid Tab) 20 mg QPM PO 12/16/16 21:00 01/15/17 20:59 12/18/16 21:11 20 MG Pantoprazole Sodium (Protonix Tab) 40 mg DAILY PO 12/17/16 09:00 01/16/17 08:59 12/19/16 08:05 40 MG Piperacillin Sod/ Tazobactam Sod (Consult) 1 ea UD N/A 12/16/16 19:00 01/15/17 18:59 Acetaminophen (Tylenol Tab) 650 mg Q4H PRN PO 12/16/16 19:00 01/15/17 18:59 Piperacillin Sod/ Tazobactam Sod 3.375 gm/Dextrose 115 ml @ 28.75 mls/ hr Q8@0400,1200,2000 IV 12/17/16 04:00 12/24/16 03:59 12/19/16 12:04 28.75 MLS/HR Fluticasone Propionate (Flonase Nasal [place]) 1 sprays DAILY MAGAN 12/18/16 09:00 01/17/17 08:59 12/19/16 08:05 1 SPRAYS Folic Acid (Folvite Tab) 1 mg DAILY PO 12/18/16 09:00 01/17/17 08:59 12/19/16 08:04 1 MG Metoprolol Succinate (Toprol Xl Tab) 12.5 mg DAILY PO 12/18/16 09:00 01/17/17 08:59 Lactulose (Chronulac Syrup) 15 gm TID PO 12/17/16 14:00 01/16/17 13:59 12/19/16 08:06 15 GM Furosemide 40 mg/ Syringe 4 ml @ 4 mls/min Q8@0600,1400,2200 IV 12/18/16 15:00 01/17/17 14:59 12/19/16 06:23 4 MLS/MIN Objective Vital Signs Date Time Temp Pulse Resp B/P (MAP) Pulse Ox O2 Delivery O2 Flow Rate FiO2 12/19/16 12:04 36.5 63 16 90/57 (68) 98 Room Air 12/19/16 12:00 Room Air 12/19/16 08:00 Room Air 12/19/16 04:30 36.7 67 20 104/67 (79) 100 CPAP 2.0 12/19/16 04:00 CPAP 2.0 12/19/16 00:01 CPAP 2.0 12/18/16 23:32 36.5 64 20 99/64 (76) 96 Room Air 12/18/16 20:24 Room Air 12/18/16 18:58 36.5 76 20 92/57 (69) 95 12/18/16 16:00 Room Air 12/18/16 14:57 36.5 72 20 103/71 (82) 92 Physical Exam General Appearance: + pertinent finding (86yo appears chronically ill, slow to respond to questions but NAD) Eyes: PERRL Abdomen: normal bowel sounds, non tender, soft (nondistended) Neurologic/Psych: alert (awakens easily but slow to respond, poor historian) Skin: normal color, no rash Laboratory Results Last 24 Hours Test 12/18/16 16:04 12/18/16 20:39 12/19/16 05:57 12/19/16 07:33 Bedside Glucose 191 mg/dl 212 mg/dl 158 mg/dl White Blood Count 4.52 K/uL Red Blood Count 3.49 M/uL Hemoglobin 8.7 g/dL Hematocrit 29.8 % Mean Corpuscular Volume 85.4 fL Mean Corpuscular Hemoglobin 24.9 pg Mean Corpuscular Hemoglobin Concent 29.2 g/dl Platelet Count 71 K/uL Mean Platelet Volume 9.3 fL Neutrophils (%) (Auto) 78.1 % Lymphocytes (%) (Auto) 7.7 % Monocytes (%) (Auto) 10.0 % Eosinophils (%) (Auto) 3.3 % Basophils (%) (Auto) 0.7 % Neutrophils # (Auto) 3.53 K/uL Lymphocytes # (Auto) 0.35 K/uL Monocytes # (Auto) 0.45 K/uL Eosinophils # (Auto) 0.15 K/uL Basophils # (Auto) 0.03 K/uL RDW Standard Deviation 51.0 fL RDW Coefficient of Variation 16.5 % Immature Granulocyte % (Auto) 0.2 % Immature Granulocyte # (Auto) 0.01 K/uL Anisocytosis PRESENT Ovalocytes 1+ Sodium Level 144 mmol/L Potassium Level 3.2 mmol/L Chloride Level 108 mmol/L Carbon Dioxide Level 28 mmol/L Anion Gap 8.0 mmol/L Blood Urea Nitrogen 42 mg/dl Creatinine 2.50 mg/dl Est Creatinine Clear Calc Drug Dose 27.6 ml/min Estimated GFR () 26.0 Estimated GFR (Non- 22.4 BUN/Creatinine Ratio 16.6 Random Glucose 148 mg/dl Calcium Level 7.7 mg/dl Magnesium Level 2.2 mg/dl Test 12/19/16 11:38 Bedside Glucose 195 mg/dl Assessment and Plan 86yo with multiple comorbidities with cirrhosis likely secondary to CHF Continue recommendations as previously outlined per Dr. Lombardo: low sodium diet diuretic dosing per cardiology and nephrology continue lactulose 1-2 times daily consider hospice given overall clinical picture. GI will sign off, please call with questions I saw and evaluated the patient. 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 At this point I would suggest continuing with his present medications and diuretics per nephrology and cardiology. Please call with any additional questions or concerns
[2016-12-19] MEDS ORDERED: FUROSEMIDE INJ 40 MG in SYRINGE 0 ML IV SCH (14:30)
--- NOTE | 2016-12-19 14:34 | Nephrology Progress Note ---
Nephrology Progress Note Date of Service: Dec 19, 2016. Subjective Looks weak. massive edema and ascites Objective Date Time Temp Pulse Resp B/P (MAP) Pulse Ox O2 Delivery O2 Flow Rate FiO2 12/19/16 12:04 36.5 63 16 90/57 (68) 98 Room Air 12/19/16 12:00 Room Air 12/19/16 08:00 Room Air 12/19/16 04:30 36.7 67 20 104/67 (79) 100 CPAP 2.0 12/19/16 04:00 CPAP 2.0 12/19/16 00:01 CPAP 2.0 12/18/16 23:32 36.5 64 20 99/64 (76) 96 Room Air 12/18/16 20:24 Room Air 12/18/16 18:58 36.5 76 20 92/57 (69) 95 12/18/16 16:00 Room Air 12/18/16 14:57 36.5 72 20 103/71 (82) 92 Physical Exam: General-[] Neck-[Supple] Lungs-[BS less b/l] Heart-[RRR distan] Abdomen-[Acites ++ and also Skin edema] Extremities-[3-4+ edema ] Current Inpatient Medications Medications (Trade) Dose Ordered Sig/Gin Route Start Time Stop Time Status Last Admin Dose Admin Insulin Aspart (novoLOG ASPART) SLIDING SCALE If C... ACHS SC 12/16/16 21:00 01/15/17 20:59 12/19/16 12:03 2 UNITS Glucose (Glucose 40% Gel) 15-30 GRAMS 15 GRAMS... UD PRN PO 12/16/16 19:00 01/15/17 18:59 Glucose (Glucose Chew Tab) 4-8 Tablets 4 Tabl... UD PRN PO 12/16/16 19:00 01/15/17 18:59 Dextrose (Dextrose 50% 50ML Syringe) 25-50ML OF 50% DW IV FOR... UD PRN IV 12/16/16 19:00 01/15/17 18:59 Glucagon (Glucagon Inj) 1 mg UD PRN SQ 12/16/16 19:00 01/15/17 18:59 Famotidine (Pepcid Tab) 20 mg QPM PO 12/16/16 21:00 01/15/17 20:59 12/18/16 21:11 20 MG Pantoprazole Sodium (Protonix Tab) 40 mg DAILY PO 12/17/16 09:00 01/16/17 08:59 12/19/16 08:05 40 MG Piperacillin Sod/ Tazobactam Sod (Consult) 1 ea UD N/A 12/16/16 19:00 01/15/17 18:59 Acetaminophen (Tylenol Tab) 650 mg Q4H PRN PO 12/16/16 19:00 01/15/17 18:59 Piperacillin Sod/ Tazobactam Sod 3.375 gm/Dextrose 115 ml @ 28.75 mls/ hr Q8@0400,1200,2000 IV 12/17/16 04:00 12/24/16 03:59 12/19/16 12:04 28.75 MLS/HR Fluticasone Propionate (Flonase Nasal [place]) 1 sprays DAILY MAGAN 12/18/16 09:00 01/17/17 08:59 12/19/16 08:05 1 SPRAYS Folic Acid (Folvite Tab) 1 mg DAILY PO 12/18/16 09:00 01/17/17 08:59 12/19/16 08:04 1 MG Metoprolol Succinate (Toprol Xl Tab) 12.5 mg DAILY PO 12/18/16 09:00 01/17/17 08:59 Lactulose (Chronulac Syrup) 15 gm TID PO 12/17/16 14:00 01/16/17 13:59 12/19/16 08:06 15 GM Furosemide 40 mg/ Syringe 4 ml @ 4 mls/min Q8@0600,1400,2200 IV 12/18/16 15:00 01/17/17 14:59 12/19/16 06:23 4 MLS/MIN Last 24 Hours Test 12/18/16 16:04 12/18/16 20:39 12/19/16 05:57 12/19/16 07:33 Bedside Glucose 191 mg/dl 212 mg/dl 158 mg/dl White Blood Count 4.52 K/uL Red Blood Count 3.49 M/uL Hemoglobin 8.7 g/dL Hematocrit 29.8 % Mean Corpuscular Volume 85.4 fL Mean Corpuscular Hemoglobin 24.9 pg Mean Corpuscular Hemoglobin Concent 29.2 g/dl Platelet Count 71 K/uL Mean Platelet Volume 9.3 fL Neutrophils (%) (Auto) 78.1 % Lymphocytes (%) (Auto) 7.7 % Monocytes (%) (Auto) 10.0 % Eosinophils (%) (Auto) 3.3 % Basophils (%) (Auto) 0.7 % Neutrophils # (Auto) 3.53 K/uL Lymphocytes # (Auto) 0.35 K/uL Monocytes # (Auto) 0.45 K/uL Eosinophils # (Auto) 0.15 K/uL Basophils # (Auto) 0.03 K/uL RDW Standard Deviation 51.0 fL RDW Coefficient of Variation 16.5 % Immature Granulocyte % (Auto) 0.2 % Immature Granulocyte # (Auto) 0.01 K/uL Anisocytosis PRESENT Ovalocytes 1+ Sodium Level 144 mmol/L Potassium Level 3.2 mmol/L Chloride Level 108 mmol/L Carbon Dioxide Level 28 mmol/L Anion Gap 8.0 mmol/L Blood Urea Nitrogen 42 mg/dl Creatinine 2.50 mg/dl Est Creatinine Clear Calc Drug Dose 27.6 ml/min Estimated GFR () 26.0 Estimated GFR (Non- 22.4 BUN/Creatinine Ratio 16.6 Random Glucose 148 mg/dl Calcium Level 7.7 mg/dl Magnesium Level 2.2 mg/dl Test 12/19/16 11:38 Bedside Glucose 195 mg/dl Assessment & Plan 86 year old male with history of CKD 4, Paroxysmal A fib, SSS s/p PM, DM, HTN, COPD, Cirrhosis, CARLITA, Myelodysplastic Syndrome, Chronic Thrombocytopenia presenting with hypotension and weakness. has some creat elevation. ARF--related with Low BP/Infection/Sepsis. he has e/o fluid overload--CXR as well as exam and Ascites also. He needs diuretics regardless of the creatinine. d/c Iv fluids and start lasix 40 iv q8hr. Creat may or may not go higher. Continue broad spectrum Abx with careful dosing of the vancomicin. Does have CKD 4. Crea 2.0 in September but i would say baseline is more like mid 2's. But given extensive diseases hard to give a baseline when he has never really been euvolemic. Bigger picture he is too far advanced with diseases of Liver ( cirrhosis), CKD 4 ( fluid overload) and CHF and 86 with some dementia. Consider level of care and hospice care discussion. will not be a candidate for dialysis at all. Overnigh wih iv lasix onl made 1200 ml urine . wt is going higher. Creat stable lasix 40 iv q8h. Ad 25% albumin q8hr.
[2016-12-19] MEDS: ALBUMIN 25% 50 ML with FUROSEMIDE INJ 40 MG IV SCH ×4 (15:52→22:07)
[2016-12-19] MEDS ORDERED: ROCEPHIN-CONSULT PHARMACY PRN (17:01)
--- NOTE | 2016-12-19 17:01 | Progress Note ---
Medicine Progress Note Date & Time of Visit: Dec 19, 2016 at 16:55. Subjective seen resting in bedside chair, alert, oriented states he feels that his muscles are weak denies chest pain, dyspnea, palpitations no abdominal pain, leg pain no other symptoms Objective Last 8 Hrs Date Time Temp Pulse Resp B/P (MAP) Pulse Ox O2 Delivery O2 Flow Rate FiO2 12/19/16 15:56 36.5 68 20 132/75 (94) 95 12/19/16 15:50 36.6 65 18 97/59 (72) 98 Room Air 12/19/16 12:04 36.5 63 16 90/57 (68) 98 Room Air 12/19/16 12:00 Room Air Physical Exam: General- oriented x 3, not in distress, speaks in sentences with no effort Eyes- anicteric Neck- no JVD Lungs- clear breath sounds bilaterally, no rales Heart- irregularly irregular rhythm; no murmur, normal rate Abdomen- normal bowel sounds,mild distension, soft, nontender Extremities- grade 1 lower leg edema, no calf tenderness Neuro- alert, oriented x 3; no gross focal neuro deficit Skin- warm & dry Laboratory Results: Last 24 Hours Test 12/18/16 20:39 12/19/16 05:57 12/19/16 07:33 12/19/16 11:38 Bedside Glucose 212 mg/dl 158 mg/dl 195 mg/dl White Blood Count 4.52 K/uL Red Blood Count 3.49 M/uL Hemoglobin 8.7 g/dL Hematocrit 29.8 % Mean Corpuscular Volume 85.4 fL Mean Corpuscular Hemoglobin 24.9 pg Mean Corpuscular Hemoglobin Concent 29.2 g/dl Platelet Count 71 K/uL Mean Platelet Volume 9.3 fL Neutrophils (%) (Auto) 78.1 % Lymphocytes (%) (Auto) 7.7 % Monocytes (%) (Auto) 10.0 % Eosinophils (%) (Auto) 3.3 % Basophils (%) (Auto) 0.7 % Neutrophils # (Auto) 3.53 K/uL Lymphocytes # (Auto) 0.35 K/uL Monocytes # (Auto) 0.45 K/uL Eosinophils # (Auto) 0.15 K/uL Basophils # (Auto) 0.03 K/uL RDW Standard Deviation 51.0 fL RDW Coefficient of Variation 16.5 % Immature Granulocyte % (Auto) 0.2 % Immature Granulocyte # (Auto) 0.01 K/uL Anisocytosis PRESENT Ovalocytes 1+ Sodium Level 144 mmol/L Potassium Level 3.2 mmol/L Chloride Level 108 mmol/L Carbon Dioxide Level 28 mmol/L Anion Gap 8.0 mmol/L Blood Urea Nitrogen 42 mg/dl Creatinine 2.50 mg/dl Est Creatinine Clear Calc Drug Dose 27.6 ml/min Estimated GFR () 26.0 Estimated GFR (Non- 22.4 BUN/Creatinine Ratio 16.6 Random Glucose 148 mg/dl Calcium Level 7.7 mg/dl Magnesium Level 2.2 mg/dl Test 12/19/16 15:03 Potassium Level 3.1 mmol/L Assessment & Plan 86 year old male with history of CKD 4, Paroxysmal A fib, SSS s/p PM, DM, HTN, COPD, Cirrhosis, CARLITA, Myelodysplastic Syndrome, Chronic Thrombocytopenia presenting with hypotension and weakness. HYPOTENSION, RESOLVED POSSIBLE VOLUME DEPLETION SECONDARY TO DIURETICS -- BP remains stable given IV fluids -- resumed Metoprolol but decrease dose from 25 to 12.5mg po monitor PROTEUS UTI -- afebrile -- blood and urine cultures negative (+) Proteus per Urine Culture 12/13/16 possible pneumonia per CXR --lactic acid 3.9--> 1.3 -- d/c Vanco on Zosyn Day 4, will de escalate to Ceftriaxone Day 1 monitor CKD 4 Crea 2.0 in September increased to 3.2 as of November today, 3.3 --> 2.9---> 2.5 -- Nephrology consulted lasix 40mg IV + Albumin q8h started monitor ASCITES, LIVER CIRRHOSIS BY CT SCAN -- noted to have liver cirrhosis last September [address] -- liver US: mild to moderate ascites ammonia 81 -- Lactulose started, mental status improving now on Lasix per Nephro -- Cirrhosis likely Hepatic Congestion from CHF per GI will ff up echo R/O CHF HISTORY OF CARDIOMYOPATHY -- appears to be third spacing -- update echo pending -- Lasix IV q8h + Albumin started may need to consult Cardio PAROXYSMAL A FIB SSS, S/P PACEMAKER -- on Metoprolol, decrease dose to prevent hypotension HR controlled -- not on anticoag per Cardiology DM -- hold Lantus -- ISS for now COPD -- not in exacerbation CARLITA -- continue CPAP CHRONIC THROMBOCYTOPENIA MYELODYSPLASTIC SYNDROME -- Hg and Plt stable CODE STATUS DNR per son DVT prophylaxis SCDs contraindicated as patient has edema Anticoag contraindicated as patient as Plt < 100 ambulate DISPO pending resident of [facility] Current Inpatient Medications: Current Inpatient Medications Medications (Trade) Dose Ordered Sig/Gin Route Start Time Stop Time Status Last Admin Dose Admin Insulin Aspart (novoLOG ASPART) SLIDING SCALE If C... ACHS SC 12/16/16 21:00 01/15/17 20:59 12/19/16 12:03 2 UNITS Glucose (Glucose 40% Gel) 15-30 GRAMS 15 GRAMS... UD PRN PO 12/16/16 19:00 01/15/17 18:59 Glucose (Glucose Chew Tab) 4-8 Tablets 4 Tabl... UD PRN PO 12/16/16 19:00 01/15/17 18:59 Dextrose (Dextrose 50% 50ML Syringe) 25-50ML OF 50% DW IV FOR... UD PRN IV 12/16/16 19:00 01/15/17 18:59 Glucagon (Glucagon Inj) 1 mg UD PRN SQ 12/16/16 19:00 01/15/17 18:59 Famotidine (Pepcid Tab) 20 mg QPM PO 12/16/16 21:00 01/15/17 20:59 12/18/16 21:11 20 MG Pantoprazole Sodium (Protonix Tab) 40 mg DAILY PO 12/17/16 09:00 01/16/17 08:59 12/19/16 08:05 40 MG Piperacillin Sod/ Tazobactam Sod (Consult) 1 ea UD N/A 12/16/16 19:00 01/15/17 18:59 Acetaminophen (Tylenol Tab) 650 mg Q4H PRN PO 12/16/16 19:00 01/15/17 18:59 Piperacillin Sod/ Tazobactam Sod 3.375 gm/Dextrose 115 ml @ 28.75 mls/ hr Q8@0400,1200,2000 IV 12/17/16 04:00 12/24/16 03:59 12/19/16 12:04 28.75 MLS/HR Fluticasone Propionate (Flonase Nasal [place]) 1 sprays DAILY MAGAN 12/18/16 09:00 01/17/17 08:59 12/19/16 08:05 1 SPRAYS Folic Acid (Folvite Tab) 1 mg DAILY PO 12/18/16 09:00 01/17/17 08:59 12/19/16 08:04 1 MG Metoprolol Succinate (Toprol Xl Tab) 12.5 mg DAILY PO 12/18/16 09:00 01/17/17 08:59 Lactulose (Chronulac Syrup) 15 gm TID PO 12/17/16 14:00 01/16/17 13:59 12/19/16 14:57 15 GM Furosemide 40 mg/ Albumin Human 54 ml @ 54 mls/hr Q8 IV 12/19/16 15:00 12/22/16 14:59 12/19/16 15:52 54 MLS/HR Furosemide 40 mg/ Syringe 4 ml @ 4 mls/min Q8@0200,1000,1800 IV 12/19/16 18:00 01/18/17 17:59 Potassium Chloride (Klor-Con M10) 20 meq ONE PO 12/19/16 17:00 01/18/17 16:59 UNV
[2016-12-19] MEDS ORDERED: POTASSIUM CHLORIDE 10 MEQ TABCR PO ONE (17:30)
[2016-12-19] MEDS ORDERED: CEFTRIAXONE SOD INJ 1000 MG in DEXTROSE 5% 50ML IV SCH (19:00)
[2016-12-19] MEDS: CEFTRIAXONE SOD INJ 1 GM in DEXTROSE 5% ADD-VANTAGE 50ML 50 ML IV SCH (19:31)
[2016-12-19] MEDS: FAMOTIDINE 20 MG TAB PO SCH (21:11)
[2016-12-20] VITALS (11 sets, daily range): BP systolic 90–111; BP diastolic 59–68; PULSE 65–128; TEMP 36.4–37; O2SAT 92–99
[2016-12-20] MEDS: FUROSEMIDE INJ 40 MG in SYRINGE 0 ML IV SCH ×3 (02:10→17:45)
[2016-12-20] MEDS: ALBUMIN 25% 50 ML with FUROSEMIDE INJ 40 MG IV SCH ×2 (05:37)
[2016-12-20 06:11] LABS: HEMATOCRIT 28.2 % (42-52); MEAN CELL VOLUME 85.5 fL (80-100); MEAN CORPUSCULAR HEMOGLOBIN 25.8 pg (25-34); MEAN CORPUSCULAR HGB CONC 30.1 g/dl (32-36); WHITE BLOOD COUNT 3.76 K/uL (4.8-10.8)
[2016-12-20 06:26] LABS: MEAN PLATELET VOLUME 9.3 fL (7.4-10.4); PLATELET COUNT 67 K/uL (130-400)
[2016-12-20 06:40] LABS: BUN/CREATININE RATIO 15.1 (10-20); CALCIUM 7.9 mg/dl (8.5-10.1); CREATININE 2.5 mg/dl (0.60-1.40); MAGNESIUM 2.2 mg/dl (1.8-2.4); POTASSIUM 3.1 mmol/L (3.5-5.1)
[2016-12-20 06:46] LABS: BASO % 0.5 %; BASO ABS # 0.02 K/uL (0-0.2); COMPLETE YES; EOS % 3.7 %; IG% 0.3 %; LYMPH % 9.8 %; LYMPH ABS # 0.37 K/uL (1.2-3.4); NEUT % 73.7 %; OVALOCYTES 1+
[2016-12-20] MEDS: FLUTICASONE PROPIONATE NA SPR 16 GM BTL NAE SCH (08:29)
[2016-12-20] MEDS: LACTULOSE SYRUP 10 GM/15 ML BTL 473 ML PO SCH ×3 (08:29→20:29)
[2016-12-20] MEDS: PANTOprazole SOD 40 MG TAB PO SCH (08:30)
[2016-12-20] MEDS: INSULIN ASPART 100 UNITS/ML 3 ML PEN SC SCH ×4 (08:35→20:37)
--- NOTE | 2016-12-20 08:35 | ECHOCARDIOGRAM REPORT ---
*NOTICE TO RECEIVING LIBERTARIAN AGENCY This information is strictly Confidential and protected under [place] law. [place] law prohibits you from making any further disclosure of this information unless further disclosure is expressly permitted by the written consent of the person to whom it pertains or is authorized by law. A general authorization for the release of medical or other information is not sufficient for this purpose. Hospital accepts no responsibility if the information is made available to any other person, INCLUDING THE PATIENT. Interpretation Summary * Name: ELDON VENTURA Study Date: 12/19/2016 10:34 AM BP: 104/67 mmHg * Patient Location: .MED\S\N285\S\2 HR: 69 * : 1930 (M/d/yyy) Gender: Male Height: 72 in * Age: 86 yrs Ethnicity: [place] Weight: 250 lb * Ordering Physician: Valentin Floers * Referring Physician: Self, Referred * Performed By: Daniel Smith RCS * * Reason For Study: CHF * BSA: 2.3 m2 * -- Conclusions -- * No significant change compared to study of 09/02/16. * Normal LV chamber size with mild concentric LVH. * The patient is s/p septal myomectomy. * Echo findings are not consistent with left ventricular outflow obstruction. * Normal LV systolic function with abnormal septal wall motion consistent with conduction abnormality, EF 65-70%. * No segmental left ventricular wall motion abnormalities are noted. * Mild mitral regurgitation. * Moderately dilated ascending aorta. * Mild aortic root dilatation. Procedure Details * Left Ventricle The left ventricle is normal in size. There is mild concentric left ventricular hypertrophy. Ejection Fraction = 65-70%. No segmental left ventricular wall motion abnormalities are noted. Left ventricular systolic function is normal. Septal motion is consistent with conduction abnormality. The patient is s/p septal myomectomy. Echo findings are not consistent with left ventricular outflow obstruction. * Right Ventricle The right ventricular cavity size is normal (basal dimension <4.2 cm in right ventricular apical 4-chamber view). There is a pacemaker lead in the right ventricle. The right ventricular systolic function is normal as assessed by tricuspid annular plane systolic excursion (TAPSE) (normal >1.5 cm). * Atria The left atrial size is normal. Right atrial size is normal. No ASD detected; PFO is not assessed. * Mitral Valve The mitral valve anatomy is normal. There is no mitral valve stenosis. There is mild mitral regurgitation. * Tricuspid Valve The tricuspid valve is not well visualized. There is no tricuspid stenosis. No tricuspid regurgitation. * Aortic Valve The aortic valve is not well visualized. No hemodynamically significant valvular aortic stenosis. There is no significant aortic regurgitation. * Pulmonic Valve The pulmonary valve is not well seen, but the Doppler examination is normal without significant regurgitation or stenosis. * Great Vessels Mild aortic root dilatation. Moderately dilated ascending aorta. * Pericardium/Pleural There is no pericardial effusion. * * MMode 2D Measurements and Calculations * IVSd 1.3 cm * * LVIDd 6.6 cm * LVIDs 3.1 cm * LVPWd 1.3 cm * * IVS/LVPW 10 * FS 52.8 % * EDV(Teich) 221.3 ml * ESV(Teich) 37.9 ml * EF(Teich) 82.9 % * * EDV(cubed) 283.6 ml * ESV(cubed) 29.8 ml * EF(cubed) 89.5 % * * LV mass(C)d 394.5 grams * LV mass(C)dI 168.4 grams/m\S\2 * * SV(Teich) 183.4 ml * SI(Teich) 78.3 ml/m\S\2 * SV(cubed) 253.9 ml * SI(cubed) 108.4 ml/m\S\2 * * Ao root diam 4.1 cm * Ao root area 13.2 cm\S\2 * * LVOT diam 2.0 cm * LVOT area 3.3 cm\S\2 * * LVOT area(traced) 3.1 cm\S\2 * * LVAd ap4 36.7 cm\S\2 * LVLd ap4 9.1 cm * EDV(MOD-sp4) 127.0 ml * LVAs ap4 20.5 cm\S\2 * LVLs ap4 8.0 cm * ESV(MOD-sp4) 45.4 ml * EF(MOD-sp4) 64.3 % * * LVAd ap2 33.3 cm\S\2 * LVLd ap2 8.9 cm * EDV(MOD-sp2) 105.0 ml * LVAs ap2 17.8 cm\S\2 * LVLs ap2 8.2 cm * ESV(MOD-sp2) 34.4 ml * EF(MOD-sp2) 67.2 % * * SV(MOD-sp4) 81.6 ml * SI(MOD-sp4) 34.8 ml/m\S\2 * * SV(MOD-sp2) 70.6 ml * SI(MOD-sp2) 30.1 ml/m\S\2 * * * * * * Doppler Measurements and Calculations * Ao V2 max 96.5 cm/sec * Ao max PG 3.7 mmHg * Ao max PG (full) 0.07 mmHg * MAJOR(V,A) 3.3 cm\S\2 * MAJOR(V,D) 3.3 cm\S\2 * * LV V1 max PG 3.7 mmHg * * LV V1 max 95.6 cm/sec * * TR max vamshi 229.2 cm/sec * *
--- NOTE | 2016-12-20 09:23 | Progress Note ---
Medicine Progress Note Date & Time of Visit: Dec 20, 2016 at 09:15. Subjective seen resting in bedside chair, alert, oriented states he feels good feels his abdomen is less swollen denies confusion, drowsiness, abdominal pain no dyspnea , chest pain no leg pain denies other symptoms Objective Last 8 Hrs Date Time Temp Pulse Resp B/P (MAP) Pulse Ox O2 Delivery O2 Flow Rate FiO2 12/20/16 08:09 Room Air 12/20/16 07:07 36.5 73 18 93/59 (70) 97 Room Air 12/20/16 06:38 111/68 (82) 12/20/16 05:37 65 105/65 (78) 12/20/16 04:27 36.4 76 20 95/59 (71) 99 CPAP 12/20/16 04:00 CPAP 12/20/16 02:08 79 104/67 (79) Physical Exam: General- oriented x 3, not in distress, speaks in sentences with no effort Eyes- anicteric Neck- no JVD Lungs- clear BS bilat, no rales/wheezes Heart- irregularly irregular rhythm; no murmur, normal rate Abdomen- normal bowel sounds,mild distension, soft, nontender Extremities- grade 1 lower leg edema, no calf tenderness Neuro- alert, oriented x 3; no gross focal neuro deficit Skin- warm & dry Laboratory Results: Last 24 Hours Test 12/19/16 11:38 12/19/16 15:03 12/19/16 16:47 12/19/16 20:40 Bedside Glucose 195 mg/dl 178 mg/dl 223 mg/dl Potassium Level 3.1 mmol/L Test 12/20/16 05:57 12/20/16 07:27 White Blood Count 3.76 K/uL Red Blood Count 3.30 M/uL Hemoglobin 8.5 g/dL Hematocrit 28.2 % Mean Corpuscular Volume 85.5 fL Mean Corpuscular Hemoglobin 25.8 pg Mean Corpuscular Hemoglobin Concent 30.1 g/dl Platelet Count 67 K/uL Mean Platelet Volume 9.3 fL Neutrophils (%) (Auto) 73.7 % Lymphocytes (%) (Auto) 9.8 % Monocytes (%) (Auto) 12.0 % Eosinophils (%) (Auto) 3.7 % Basophils (%) (Auto) 0.5 % Neutrophils # (Auto) 2.77 K/uL Lymphocytes # (Auto) 0.37 K/uL Monocytes # (Auto) 0.45 K/uL Eosinophils # (Auto) 0.14 K/uL Basophils # (Auto) 0.02 K/uL RDW Standard Deviation 51.9 fL RDW Coefficient of Variation 16.6 % Immature Granulocyte % (Auto) 0.3 % Immature Granulocyte # (Auto) 0.01 K/uL Ovalocytes 1+ Sodium Level 143 mmol/L Potassium Level 3.1 mmol/L Chloride Level 108 mmol/L Carbon Dioxide Level 27 mmol/L Anion Gap 8.0 mmol/L Blood Urea Nitrogen 38 mg/dl Creatinine 2.50 mg/dl Est Creatinine Clear Calc Drug Dose 27.7 ml/min Estimated GFR () 26.0 Estimated GFR (Non- 22.4 BUN/Creatinine Ratio 15.1 Random Glucose 144 mg/dl Calcium Level 7.9 mg/dl Magnesium Level 2.2 mg/dl Bedside Glucose 154 mg/dl Assessment & Plan 86 year old male with history of CKD 4, Paroxysmal A fib, SSS s/p PM, DM, HTN, COPD, Cirrhosis, CARLITA, Myelodysplastic Syndrome, Chronic Thrombocytopenia presenting with hypotension and weakness. HYPOTENSION, RESOLVED POSSIBLE VOLUME DEPLETION SECONDARY TO DIURETICS -- BP remains stable given IV fluids -- resumed Metoprolol but decrease dose from 25 to 12.5mg po monitor PROTEUS UTI -- afebrile -- blood and urine cultures negative (+) Proteus per Urine Culture 12/13/16 possible pneumonia per CXR --lactic acid 3.9--> 1.3 -- d/c Vanco on Zosyn Day 4, will de escalate to Ceftriaxone Day 2 out of 3 (to complete total 7 days of antibiotics) monitor ACUTE RENAL FAILURE ON CKD 4 Crea 2.0 in September increased to 3.2 as of November today, 3.3 --> 2.9---> 2.5 -- Nephrology consulted lasix 40mg IV + Albumin q8h started -- monitor diuresis ASCITES, LIVER CIRRHOSIS BY CT SCAN possible ACUTE HEPATIC ENCEPHALOPATHY/ METABOLIC ENCEPHALOPATHY -- noted to have liver cirrhosis last September [address] -- liver US: mild to moderate ascites ammonia 81 -- Lactulose started, mental status improved per family now on Lasix per Nephro -- Cirrhosis likely Hepatic Congestion from CHF per GI Echo: No significant change compared to study of 09/02/16. * Normal LV chamber size with mild concentric LVH. * The patient is s/p septal myomectomy. * Echo findings are not consistent with left ventricular outflow obstruction. * Normal LV systolic function with abnormal septal wall motion consistent with conduction abnormality, EF 65-70%. * No segmental left ventricular wall motion abnormalities are noted. * Mild mitral regurgitation. * Moderately dilated ascending aorta. * Mild aortic root dilatation. -- will discuss with GI re: possible etiology of Cirrhosis -- continue Lactulose ,Lasix R/O CHF HISTORY OF CARDIOMYOPATHY -- echo as noted above -- Lasix IV q8h + Albumin started PAROXYSMAL A FIB SSS, S/P PACEMAKER -- on Metoprolol, decrease dose to prevent hypotension HR controlled -- not on anticoag per Cardiology DM -- hold Lantus -- ISS for now COPD -- not in exacerbation CARLITA -- continue CPAP CHRONIC THROMBOCYTOPENIA MYELODYSPLASTIC SYNDROME -- Hg and Plt stable CODE STATUS DNR per son DVT prophylaxis SCDs contraindicated as patient has edema Anticoag contraindicated as patient as Plt < 100 ambulate DISPO pending resident of SNF discussed with patient's daughter yesterday, case explained at length family would like to continue medical management and defer hospice referral for now Current Inpatient Medications: Current Inpatient Medications Medications (Trade) Dose Ordered Sig/Gin Route Start Time Stop Time Status Last Admin Dose Admin Insulin Aspart (novoLOG ASPART) SLIDING SCALE If C... ACHS SC 12/16/16 21:00 01/15/17 20:59 12/20/16 08:35 2 UNITS Glucose (Glucose 40% Gel) 15-30 GRAMS 15 GRAMS... UD PRN PO 12/16/16 19:00 01/15/17 18:59 Glucose (Glucose Chew Tab) 4-8 Tablets 4 Tabl... UD PRN PO 12/16/16 19:00 01/15/17 18:59 Dextrose (Dextrose 50% 50ML Syringe) 25-50ML OF 50% DW IV FOR... UD PRN IV 12/16/16 19:00 01/15/17 18:59 Glucagon (Glucagon Inj) 1 mg UD PRN SQ 12/16/16 19:00 01/15/17 18:59 Famotidine (Pepcid Tab) 20 mg QPM PO 12/16/16 21:00 01/15/17 20:59 12/19/16 21:11 20 MG Pantoprazole Sodium (Protonix Tab) 40 mg DAILY PO 12/17/16 09:00 01/16/17 08:59 12/20/16 08:30 40 MG Acetaminophen (Tylenol Tab) 650 mg Q4H PRN PO 12/16/16 19:00 01/15/17 18:59 Fluticasone Propionate (Flonase Nasal [place]) 1 sprays DAILY MAGAN 12/18/16 09:00 01/17/17 08:59 12/20/16 08:29 1 SPRAYS Folic Acid (Folvite Tab) 1 mg DAILY PO 12/18/16 09:00 01/17/17 08:59 12/20/16 08:30 1 MG Metoprolol Succinate (Toprol Xl Tab) 12.5 mg DAILY PO 12/18/16 09:00 01/17/17 08:59 Lactulose (Chronulac Syrup) 15 gm TID PO 12/17/16 14:00 01/16/17 13:59 12/20/16 08:29 15 GM Furosemide 40 mg/ Albumin Human 54 ml @ 54 mls/hr Q8 IV 12/19/16 15:00 12/22/16 14:59 12/20/16 05:37 54 MLS/HR Furosemide 40 mg/ Syringe 4 ml @ 4 mls/min Q8@0200,1000,1800 IV 12/19/16 18:00 01/18/17 17:59 12/20/16 02:10 4 MLS/MIN Miscellaneous Information (Pharmacy Consult) 1 ea UD PRN N/A 12/19/16 17:01 01/18/17 17:00 Ceftriaxone Sodium 1 gm/ Dextrose 50 ml @ 120 mls/hr Q24H IV 12/19/16 19:00 12/29/16 18:59 12/19/16 19:31 120 MLS/HR
[2016-12-20] MEDS: METOPROLOL SUCC 25MG EXT REL TAB PO SCH (10:23)
--- NOTE | 2016-12-20 10:40 | Nephrology Progress Note ---
Nephrology Progress Note Date of Service: Dec 20, 2016. Subjective 86 yo male with ckd stage 4, paroxysmal afib, cirrhosis who is sitting oob to chair, hard of hearing but pleasant and has no complaints. Objective Date Time Temp Pulse Resp B/P (MAP) Pulse Ox O2 Delivery O2 Flow Rate FiO2 12/20/16 10:24 82 93/60 (71) 12/20/16 08:09 Room Air 12/20/16 07:07 36.5 73 18 93/59 (70) 97 Room Air 12/20/16 06:38 111/68 (82) 12/20/16 05:37 65 105/65 (78) 12/20/16 04:27 36.4 76 20 95/59 (71) 99 CPAP 12/20/16 04:00 CPAP 12/20/16 02:08 79 104/67 (79) 12/20/16 00:12 36.4 12/20/16 00:00 CPAP 12/19/16 23:16 73 101/67 (78) 12/19/16 22:05 71 96/61 (73) 12/19/16 20:00 Room Air 12/19/16 19:51 36.5 64 18 108/66 (80) 95 Room Air 12/19/16 17:10 111/72 (85) 12/19/16 16:00 Room Air 12/19/16 15:56 36.5 68 20 132/75 (94) 95 12/19/16 15:50 36.6 65 18 97/59 (72) 98 Room Air 12/19/16 12:04 36.5 63 16 90/57 (68) 98 Room Air 12/19/16 12:00 Room Air Physical Exam: General-aaox3 Eyes-no scleral icterus ENT-mmm Neck-supple Lungs-cta Heart-irregularly irregular Abdomen-bs+ s/nt/+mildly distended Extremities-+2 edema Neuro-nonfocal Current Inpatient Medications Medications (Trade) Dose Ordered Sig/Gin Route Start Time Stop Time Status Last Admin Dose Admin Insulin Aspart (novoLOG ASPART) SLIDING SCALE If C... ACHS SC 12/16/16 21:00 01/15/17 20:59 12/20/16 08:35 2 UNITS Glucose (Glucose 40% Gel) 15-30 GRAMS 15 GRAMS... UD PRN PO 12/16/16 19:00 01/15/17 18:59 Glucose (Glucose Chew Tab) 4-8 Tablets 4 Tabl... UD PRN PO 12/16/16 19:00 01/15/17 18:59 Dextrose (Dextrose 50% 50ML Syringe) 25-50ML OF 50% DW IV FOR... UD PRN IV 12/16/16 19:00 01/15/17 18:59 Glucagon (Glucagon Inj) 1 mg UD PRN SQ 12/16/16 19:00 01/15/17 18:59 Famotidine (Pepcid Tab) 20 mg QPM PO 12/16/16 21:00 01/15/17 20:59 12/19/16 21:11 20 MG Pantoprazole Sodium (Protonix Tab) 40 mg DAILY PO 12/17/16 09:00 01/16/17 08:59 12/20/16 08:30 40 MG Acetaminophen (Tylenol Tab) 650 mg Q4H PRN PO 12/16/16 19:00 01/15/17 18:59 Fluticasone Propionate (Flonase Nasal [place]) 1 sprays DAILY MAGAN 12/18/16 09:00 01/17/17 08:59 12/20/16 08:29 1 SPRAYS Folic Acid (Folvite Tab) 1 mg DAILY PO 12/18/16 09:00 01/17/17 08:59 12/20/16 08:30 1 MG Metoprolol Succinate (Toprol Xl Tab) 12.5 mg DAILY PO 12/18/16 09:00 01/17/17 08:59 Lactulose (Chronulac Syrup) 15 gm TID PO 12/17/16 14:00 01/16/17 13:59 12/20/16 08:29 15 GM Furosemide 40 mg/ Albumin Human 54 ml @ 54 mls/hr Q8 IV 12/19/16 15:00 12/22/16 14:59 12/20/16 05:37 54 MLS/HR Furosemide 40 mg/ Syringe 4 ml @ 4 mls/min Q8@0200,1000,1800 IV 12/19/16 18:00 01/18/17 17:59 12/20/16 10:23 4 MLS/MIN Miscellaneous Information (Pharmacy Consult) 1 ea UD PRN N/A 12/19/16 17:01 01/18/17 17:00 Ceftriaxone Sodium 1 gm/ Dextrose 50 ml @ 120 mls/hr Q24H IV 12/19/16 19:00 12/29/16 18:59 12/19/16 19:31 120 MLS/HR Last 24 Hours Test 12/19/16 11:38 12/19/16 15:03 12/19/16 16:47 12/19/16 20:40 Bedside Glucose 195 mg/dl 178 mg/dl 223 mg/dl Potassium Level 3.1 mmol/L Test 12/20/16 05:57 12/20/16 07:27 White Blood Count 3.76 K/uL Red Blood Count 3.30 M/uL Hemoglobin 8.5 g/dL Hematocrit 28.2 % Mean Corpuscular Volume 85.5 fL Mean Corpuscular Hemoglobin 25.8 pg Mean Corpuscular Hemoglobin Concent 30.1 g/dl Platelet Count 67 K/uL Mean Platelet Volume 9.3 fL Neutrophils (%) (Auto) 73.7 % Lymphocytes (%) (Auto) 9.8 % Monocytes (%) (Auto) 12.0 % Eosinophils (%) (Auto) 3.7 % Basophils (%) (Auto) 0.5 % Neutrophils # (Auto) 2.77 K/uL Lymphocytes # (Auto) 0.37 K/uL Monocytes # (Auto) 0.45 K/uL Eosinophils # (Auto) 0.14 K/uL Basophils # (Auto) 0.02 K/uL RDW Standard Deviation 51.9 fL RDW Coefficient of Variation 16.6 % Immature Granulocyte % (Auto) 0.3 % Immature Granulocyte # (Auto) 0.01 K/uL Ovalocytes 1+ Sodium Level 143 mmol/L Potassium Level 3.1 mmol/L Chloride Level 108 mmol/L Carbon Dioxide Level 27 mmol/L Anion Gap 8.0 mmol/L Blood Urea Nitrogen 38 mg/dl Creatinine 2.50 mg/dl Est Creatinine Clear Calc Drug Dose 27.7 ml/min Estimated GFR () 26.0 Estimated GFR (Non- 22.4 BUN/Creatinine Ratio 15.1 Random Glucose 144 mg/dl Calcium Level 7.9 mg/dl Magnesium Level 2.2 mg/dl Bedside Glucose 154 mg/dl Assessment & Plan izaiah on ckd stage 4-creatinine tends to vary a lot based on diuretics. pt is grossly fluid overloaded but comfortable. unclear if he would be an appropriate dialysis pt. spoke to patient about dialysis. he appears to lack insight into his medical problems. would like to continue to aggressively diurese the patient. increasing lasix to 80 iv tid with albumin and adding midodrine 5mg each morning. ok with creatinine trending up. overall poor prognosis. primary hospitalist spoke to daughter who would like to defer hospice for now.
[2016-12-20] MEDS: ALBUMIN 25% 50 ML with FUROSEMIDE INJ 80 MG IV SCH ×4 (13:58→21:35)
[2016-12-20] MEDS: CEFTRIAXONE SOD INJ 1 GM in DEXTROSE 5% ADD-VANTAGE 50ML 50 ML IV SCH (18:39)
[2016-12-20] MEDS: FAMOTIDINE 20 MG TAB PO SCH (20:29)
[2016-12-21] VITALS (10 sets, daily range): BP systolic 85–125; BP diastolic 51–69; PULSE 67–104; TEMP 36.3–36.7; O2SAT 93–100
[2016-12-21 02:06] LABS: HEMATOCRIT 24.9 % (42-52); MEAN CELL VOLUME 84.4 fL (80-100); MEAN CORPUSCULAR HEMOGLOBIN 25.8 pg (25-34); MEAN CORPUSCULAR HGB CONC 30.5 g/dl (32-36); RED BLOOD COUNT 2.95 M/uL (4.7-6.1); WHITE BLOOD COUNT 3.73 K/uL (4.8-10.8)
[2016-12-21 02:10] LABS: MEAN PLATELET VOLUME 9.2 fL (7.4-10.4); PLATELET COUNT 58 K/uL (130-400)
[2016-12-21] MEDS: FUROSEMIDE INJ 40 MG in SYRINGE 0 ML IV SCH ×3 (02:24→17:46)
[2016-12-21 02:30] LABS: BUN/CREATININE RATIO 14.5 (10-20); CALCIUM 7.8 mg/dl (8.5-10.1); CREATININE 2.4 mg/dl (0.60-1.40); MAGNESIUM 2.1 mg/dl (1.8-2.4); POTASSIUM 2.9 mmol/L (3.5-5.1)
[2016-12-21 02:40] LABS: BASO % 0.3 %; BASO ABS # 0.01 K/uL (0-0.2); COMPLETE YES; EOS % 2.7 %; IG% 0.3 %; LYMPH ABS # 0.26 K/uL (1.2-3.4); NEUT % 78.7 %; OVALOCYTES 1+
[2016-12-21] MEDS ORDERED: POTASSIUM CHLORIDE 20 MEQ TABCR PO STA (03:41)
[2016-12-21] MEDS: ALBUMIN 25% 50 ML with FUROSEMIDE INJ 80 MG IV SCH ×6 (05:50→22:19)
[2016-12-21] MEDS: LACTULOSE SYRUP 10 GM/15 ML BTL 473 ML PO SCH ×3 (08:22→21:08)
[2016-12-21] MEDS: METOLAZONE 5 MG TAB PO SCH (08:23)
[2016-12-21] MEDS: METOPROLOL SUCC 25MG EXT REL TAB PO SCH (08:23)
[2016-12-21] MEDS: FLUTICASONE PROPIONATE NA SPR 16 GM BTL NAE SCH (08:23)
[2016-12-21] MEDS: PANTOprazole SOD 40 MG TAB PO SCH (08:23)
[2016-12-21] MEDS: INSULIN ASPART 100 UNITS/ML 3 ML PEN SC SCH ×4 (08:30→21:15)
[2016-12-21 08:52] LABS: HEMATOCRIT 28.6 % (42-52)
[2016-12-21] MEDS ORDERED: POTASSIUM CHLORIDE 10 MEQ TABCR PO STA (09:19)
--- NOTE | 2016-12-21 09:29 | Nephrology Progress Note ---
Nephrology Progress Note Date of Service: Dec 21, 2016. Subjective 86 yo male with ckd stage 4, paroxysmal afib, cirrhosis who had izaiah/proteus uti. pt comfortable. no specific complaints. Objective Date Time Temp Pulse Resp B/P (MAP) Pulse Ox O2 Delivery O2 Flow Rate FiO2 12/21/16 07:50 36.5 82 16 85/53 (64) 98 CPAP 12/21/16 04:28 36.3 73 20 100/60 (73) 100 CPAP 12/21/16 04:05 CPAP 12/21/16 02:28 87 102/68 (79) 12/21/16 00:05 CPAP 12/20/16 23:29 36.6 66 20 103/66 (78) 97 CPAP 12/20/16 20:09 36.4 72 17 101/64 (76) 98 Room Air 12/20/16 20:00 Room Air 12/20/16 16:20 Room Air 12/20/16 16:02 37.0 75 17 100/66 (77) 94 12/20/16 13:07 Room Air 12/20/16 11:28 36.6 128 16 90/61 (71) 92 Room Air 12/20/16 10:24 82 93/60 (71) Physical Exam: General-aaox3 Eyes-no scleral icterus ENT-mmm Neck-supple Lungs-clear Heart-irregularly irregular Abdomen-bs+ s/nt/+distention Extremities-+1 to 2 edema Neuro-nonfocal Current Inpatient Medications Medications (Trade) Dose Ordered Sig/Gin Route Start Time Stop Time Status Last Admin Dose Admin Insulin Aspart (novoLOG ASPART) SLIDING SCALE If C... ACHS SC 12/16/16 21:00 01/15/17 20:59 12/21/16 08:30 2 UNITS Glucose (Glucose 40% Gel) 15-30 GRAMS 15 GRAMS... UD PRN PO 12/16/16 19:00 01/15/17 18:59 Glucose (Glucose Chew Tab) 4-8 Tablets 4 Tabl... UD PRN PO 12/16/16 19:00 01/15/17 18:59 Dextrose (Dextrose 50% 50ML Syringe) 25-50ML OF 50% DW IV FOR... UD PRN IV 12/16/16 19:00 01/15/17 18:59 Glucagon (Glucagon Inj) 1 mg UD PRN SQ 12/16/16 19:00 01/15/17 18:59 Famotidine (Pepcid Tab) 20 mg QPM PO 12/16/16 21:00 01/15/17 20:59 12/20/16 20:29 20 MG Pantoprazole Sodium (Protonix Tab) 40 mg DAILY PO 12/17/16 09:00 01/16/17 08:59 12/21/16 08:23 40 MG Acetaminophen (Tylenol Tab) 650 mg Q4H PRN PO 12/16/16 19:00 01/15/17 18:59 Fluticasone Propionate (Flonase Nasal [place]) 1 sprays DAILY MAGAN 12/18/16 09:00 01/17/17 08:59 12/21/16 08:23 1 SPRAYS Folic Acid (Folvite Tab) 1 mg DAILY PO 12/18/16 09:00 01/17/17 08:59 12/21/16 08:23 1 MG Metoprolol Succinate (Toprol Xl Tab) 12.5 mg DAILY PO 12/18/16 09:00 01/17/17 08:59 Lactulose (Chronulac Syrup) 15 gm TID PO 12/17/16 14:00 01/16/17 13:59 12/21/16 08:22 15 GM Furosemide 40 mg/ Syringe 4 ml @ 4 mls/min Q8@0200,1000,1800 IV 12/19/16 18:00 01/18/17 17:59 12/21/16 02:24 4 MLS/MIN Miscellaneous Information (Pharmacy Consult) 1 ea UD PRN N/A 12/19/16 17:01 01/18/17 17:00 Ceftriaxone Sodium 1 gm/ Dextrose 50 ml @ 120 mls/hr Q24H IV 12/19/16 19:00 12/29/16 18:59 12/20/16 18:39 120 MLS/HR Furosemide 80 mg/ Albumin Human 58 ml @ 54 mls/hr Q8H IV 12/20/16 14:00 12/23/16 13:59 12/21/16 05:50 54 MLS/HR Metolazone (Zaroxolyn Tab) 5 mg QAM PO 12/21/16 09:00 01/20/17 08:59 12/21/16 08:23 5 MG Potassium Chloride (Klor-Con M10) 40 meq NOW STAT PO 12/21/16 09:19 12/21/16 09:20 UNV Last 24 Hours Test 12/20/16 11:37 12/20/16 16:42 12/20/16 20:19 12/21/16 01:34 Bedside Glucose 233 mg/dl 182 mg/dl 219 mg/dl White Blood Count 3.73 K/uL Red Blood Count 2.95 M/uL Hemoglobin 7.6 g/dL Hematocrit 24.9 % Mean Corpuscular Volume 84.4 fL Mean Corpuscular Hemoglobin 25.8 pg Mean Corpuscular Hemoglobin Concent 30.5 g/dl Platelet Count 58 K/uL Mean Platelet Volume 9.2 fL Neutrophils (%) (Auto) 78.7 % Lymphocytes (%) (Auto) 7.0 % Monocytes (%) (Auto) 11.0 % Eosinophils (%) (Auto) 2.7 % Basophils (%) (Auto) 0.3 % Neutrophils # (Auto) 2.94 K/uL Lymphocytes # (Auto) 0.26 K/uL Monocytes # (Auto) 0.41 K/uL Eosinophils # (Auto) 0.10 K/uL Basophils # (Auto) 0.01 K/uL RDW Standard Deviation 51.1 fL RDW Coefficient of Variation 16.6 % Immature Granulocyte % (Auto) 0.3 % Immature Granulocyte # (Auto) 0.01 K/uL Ovalocytes 1+ Sodium Level 144 mmol/L Potassium Level 2.9 mmol/L Chloride Level 109 mmol/L Carbon Dioxide Level 27 mmol/L Anion Gap 8.0 mmol/L Blood Urea Nitrogen 35 mg/dl Creatinine 2.40 mg/dl Est Creatinine Clear Calc Drug Dose 28.8 ml/min Estimated GFR () 27.3 Estimated GFR (Non- 23.5 BUN/Creatinine Ratio 14.5 Random Glucose 151 mg/dl Calcium Level 7.8 mg/dl Magnesium Level 2.1 mg/dl Test 12/21/16 07:39 12/21/16 08:27 Bedside Glucose 150 mg/dl Hemoglobin 8.3 g/dL Hematocrit 28.6 % Assessment & Plan izaiah on ckd stage 4-creatinine tends to vary a lot based on diuretics. creatinine improved from 3.3 to 2.4. currently on lasix/albumin/midodrine. has distended abdomen and edema in legs. attempting to diurese aggressively. on 1500cc fluid restriction. as a result of diuresis, potassium is trending down and given 60meq po this morning. follow k and mag levels.
--- NOTE | 2016-12-21 12:34 | Progress Note ---
Internal Med Progress Note Date of Service: Dec 21, 2016. Provider Documentation: SUBJECTIVE: Seen and examined at bedside. Feels well Denies any chest pain, ABD pain, SOB No new complaints. OBJECTIVE: Vital Signs-as noted below Physical Exam: General Appearance:Moderately built and nourished, no apparent distress Head: normocephalic, Atraumatic Eyes: normal inspection, EOMI, PERRL Neck: supple, Trachea midline Respiratory/Chest: Normal breath sounds, CTA Cardiovascular: Irregularly irregular, No murmur Abdomen/GI:Soft, Non tender, +distended, Bowel sounds present Extremities/Musculoskelatal:normal inspection, b/l LE edema Neurologic/Psych:grossly no focal neurological deficits Skin: normal color, warm Lab data as noted below. ASSESSMENT & PLAN: Patient is an 86 yr male with history of CKD IV, Paroxysmal A fib, SSS s/p PM, DM, HTN, COPD, Cirrhosis, CARLITA, Myelodysplastic Syndrome, Chronic Thrombocytopenia presenting with hypotension and weakness. HYPOTENSION Likely secondary to diuretics Improving stable continue Metoprolol at reduced dose of 12.5mg HYPOKALEMIA: Likely secondary to diuretics Replace and monitor PROTEUS UTI afebrile blood and urine cultures negative (+) Proteus per Urine Culture 12/13/16 possible pneumonia per CXR lactic acid 3.9--> 1.3 Vancomycin discontinued on Zosyn Day 4 >>>>deescalated to Ceftriaxone Day 3 to complete total 7 days of antibiotics MAGEN on CKD IV Cr 2.0 in September Cr 3.3 --> 2.9---> 2.5 >>2.4 Appreciate Nephrology help Continue Lasix, albumin, metolazone per Nephrology Monitor renal function ASCITES, LIVER CIRRHOSIS BY CT SCAN noted to have liver cirrhosis last September [address] liver US: mild to moderate ascites ammonia 81 Lactulose started, mental status improved per family on Lasix per Nephro Cirrhosis likely Hepatic Congestion from CHF per GI Echo: No significant change compared to study of 09/02/16. * Normal LV chamber size with mild concentric LVH. * The patient is s/p septal myomectomy. * Echo findings are not consistent with left ventricular outflow obstruction. * Normal LV systolic function with abnormal septal wall motion consistent with conduction abnormality, EF 65-70%. * No segmental left ventricular wall motion abnormalities are noted. * Mild mitral regurgitation. * Moderately dilated ascending aorta. * Mild aortic root dilatation. continue Lactulose ,Lasix, low sodium diet recheck ammonia level in AM R/O CHF HISTORY OF CARDIOMYOPATHY ECHO as above Continue Lasix, Albumin per Nephrology PAROXYSMAL A FIB SSS, S/P PACEMAKER on Metoprolol, decrease dose to prevent hypotension HR controlled not on anticoag per Cardiology DM II hold Lantus ISS for now COPD not in exacerbation CARLITA continue CPAP CHRONIC THROMBOCYTOPENIA MYELODYSPLASTIC SYNDROME Hg and Plt stable CODE STATUS DNR per son DVT prophylaxis SCDs contraindicated as patient has edema Anticoag contraindicated as patient as Plt < 100 ambulate DISPO pending resident of [facility] Discussed with patient's daughter today:would like to continue medical management and defer hospice referral for now Vital Signs: Date Time Temp Pulse Resp B/P (MAP) Pulse Ox O2 Delivery O2 Flow Rate FiO2 12/21/16 09:55 108/64 (79) 12/21/16 08:00 Room Air 12/21/16 07:50 36.5 82 16 85/53 (64) 98 CPAP 12/21/16 04:28 36.3 73 20 100/60 (73) 100 CPAP 12/21/16 04:05 CPAP 12/21/16 02:28 87 102/68 (79) 12/21/16 00:05 CPAP 12/20/16 23:29 36.6 66 20 103/66 (78) 97 CPAP 12/20/16 20:09 36.4 72 17 101/64 (76) 98 Room Air 12/20/16 20:00 Room Air 12/20/16 16:20 Room Air 12/20/16 16:02 37.0 75 17 100/66 (77) 94 12/20/16 13:07 Room Air Lab Results: Results Past 24 Hours Test 12/20/16 16:42 12/20/16 20:19 12/21/16 01:34 12/21/16 07:39 Range/Units Bedside Glucose 182 219 150 70-99 mg/dl White Blood Count 3.73 4.8-10.8 K/uL Red Blood Count 2.95 4.7-6.1 M/uL Hemoglobin 7.6 14.0-18.0 g/dL Hematocrit 24.9 42-52 % Mean Corpuscular Volume 84.4 80-100 fL Mean Corpuscular Hemoglobin 25.8 25-34 pg Mean Corpuscular Hemoglobin Concent 30.5 32-36 g/dl Platelet Count 58 130-400 K/uL Mean Platelet Volume 9.2 7.4-10.4 fL Neutrophils (%) (Auto) 78.7 % Lymphocytes (%) (Auto) 7.0 % Monocytes (%) (Auto) 11.0 % Eosinophils (%) (Auto) 2.7 % Basophils (%) (Auto) 0.3 % Neutrophils # (Auto) 2.94 1.4-6.5 K/uL Lymphocytes # (Auto) 0.26 1.2-3.4 K/uL Monocytes # (Auto) 0.41 0.11-0.59 K/uL Eosinophils # (Auto) 0.10 0-0.5 K/uL Basophils # (Auto) 0.01 0-0.2 K/uL RDW Standard Deviation 51.1 36.4-46.3 fL RDW Coefficient of Variation 16.6 11.5-14.5 % Immature Granulocyte % (Auto) 0.3 % Immature Granulocyte # (Auto) 0.01 0.00-0.02 K/uL Ovalocytes 1+ Sodium Level 144 136-145 mmol/L Potassium Level 2.9 3.5-5.1 mmol/L Chloride Level 109 98-107 mmol/L Carbon Dioxide Level 27 21-32 mmol/L Anion Gap 8.0 3-11 mmol/L Blood Urea Nitrogen 35 7-18 mg/dl Creatinine 2.40 0.60-1.40 mg/dl Est Creatinine Clear Calc Drug Dose 28.8 ml/min Estimated GFR () 27.3 Estimated GFR (Non- 23.5 BUN/Creatinine Ratio 14.5 10-20 Random Glucose 151 70-99 mg/dl Calcium Level 7.8 8.5-10.1 mg/dl Magnesium Level 2.1 1.8-2.4 mg/dl Test 12/21/16 08:27 12/21/16 11:48 Range/Units Hemoglobin 8.3 14.0-18.0 g/dL Hematocrit 28.6 42-52 % Bedside Glucose 201 70-99 mg/dl
[2016-12-21] MEDS: CEFTRIAXONE SOD INJ 1 GM in DEXTROSE 5% ADD-VANTAGE 50ML 50 ML IV SCH (19:55)
[2016-12-21] MEDS: FAMOTIDINE 20 MG TAB PO SCH (21:11)
[2016-12-22] VITALS (8 sets, daily range): BP systolic 94–118; BP diastolic 56–74; PULSE 53–107; TEMP 36.5–37; O2SAT 91–100
[2016-12-22] MEDS: FUROSEMIDE INJ 40 MG in SYRINGE 0 ML IV SCH ×3 (01:46→18:43)
[2016-12-22] MEDS: ALBUMIN 25% 50 ML with FUROSEMIDE INJ 80 MG IV SCH ×6 (05:33→21:55)
[2016-12-22 08:01] LABS: BUN/CREATININE RATIO 13.9 (10-20); CALCIUM 8.4 mg/dl (8.5-10.1); CREATININE 2.5 mg/dl (0.60-1.40); POTASSIUM 2.6 mmol/L (3.5-5.1)
[2016-12-22] MEDS: FLUTICASONE PROPIONATE NA SPR 16 GM BTL NAE SCH (08:27)
[2016-12-22] MEDS: METOPROLOL SUCC 25MG EXT REL TAB PO SCH (08:29)
[2016-12-22] MEDS: METOLAZONE 5 MG TAB PO SCH (08:29)
[2016-12-22] MEDS: PANTOprazole SOD 40 MG TAB PO SCH (08:30)
[2016-12-22] MEDS: LACTULOSE SYRUP 10 GM/15 ML BTL 473 ML PO SCH ×3 (08:30→21:13)
[2016-12-22] MEDS: INSULIN ASPART 100 UNITS/ML 3 ML PEN SC SCH ×4 (09:10→21:15)
[2016-12-22] MEDS ORDERED: POTASSIUM CHLORIDE 10 MEQ TABCR PO ONE (12:15)
--- NOTE | 2016-12-22 12:32 | Progress Note ---
Internal Med Progress Note Date of Service: Dec 22, 2016. Provider Documentation: SUBJECTIVE: States feeling well. Denies any chest pain, ABD pain, SOB No new complaints. Still has significant leg swelling. OBJECTIVE: Vital Signs-as noted below Physical Exam: General Appearance:Moderately built and nourished, no apparent distress Head: normocephalic, Atraumatic Eyes: normal inspection, EOMI, PERRL Neck: supple, Trachea midline Respiratory/Chest: Normal breath sounds, CTA Cardiovascular: Irregularly irregular, No murmur Abdomen/GI:Soft, Non tender, +distended, Bowel sounds present Extremities/Musculoskelatal:normal inspection, b/l LE edema Neurologic/Psych:grossly no focal neurological deficits Skin: normal color, warm Lab data as noted below. ASSESSMENT & PLAN: Patient is an 86 yr male with history of CKD IV, Paroxysmal A fib, SSS s/p PM, DM, HTN, COPD, Cirrhosis, CARLITA, Myelodysplastic Syndrome, Chronic Thrombocytopenia presenting with hypotension and weakness. HYPOTENSION Likely secondary to diuretics stable continue Metoprolol at reduced dose of 12.5mg HYPOKALEMIA: secondary to diuretics Replace and monitor Magnesium levels normal PROTEUS UTI afebrile blood and urine cultures negative (+) Proteus per Urine Culture 12/13/16 possible pneumonia per CXR lactic acid 3.9--> 1.3 Vancomycin discontinued on Zosyn Day 4 >>>>deescalated to Ceftriaxone Day 3/ to completed total 7 days of antibiotics MAGEN on CKD IV Cr 2.0 in September Cr 3.3 --> 2.9---> 2.5 Appreciate Nephrology help On Lasix, albumin, metolazone per Nephrology Metolazone held for today, plan to resume in AM Monitor renal function ASCITES, LIVER CIRRHOSIS BY CT SCAN noted to have liver cirrhosis last September [address] liver US: mild to moderate ascites ammonia 81 Lactulose started, mental status improved per family on Lasix per Nephro Cirrhosis likely Hepatic Congestion from CHF per GI Echo: No significant change compared to study of 09/02/16. * Normal LV chamber size with mild concentric LVH. * The patient is s/p septal myomectomy. * Echo findings are not consistent with left ventricular outflow obstruction. * Normal LV systolic function with abnormal septal wall motion consistent with conduction abnormality, EF 65-70%. * No segmental left ventricular wall motion abnormalities are noted. * Mild mitral regurgitation. * Moderately dilated ascending aorta. * Mild aortic root dilatation. continue Lactulose ,Lasix, low sodium diet repeat ammonia: 18 R/O CHF HISTORY OF CARDIOMYOPATHY ECHO as above Continue Lasix, Albumin per Nephrology PAROXYSMAL A FIB SSS, S/P PACEMAKER on Metoprolol, decrease dose to prevent hypotension HR controlled not on anticoag per Cardiology DM II hold Lantus ISS for now COPD not in exacerbation CARLITA continue CPAP CHRONIC THROMBOCYTOPENIA MYELODYSPLASTIC SYNDROME Hg and Plt stable CODE STATUS DNR per son DVT prophylaxis SCDs contraindicated as patient has edema Anticoag contraindicated as patient as Plt < 100 ambulate DISPOSITION Accepted at [facility], will plan to discharge when stable Discussed with patient's daughter: would like to continue medical management and defer hospice referral for now Vital Signs: Date Time Temp Pulse Resp B/P (MAP) Pulse Ox O2 Delivery O2 Flow Rate FiO2 12/22/16 11:26 36.6 80 16 95/56 (69) 91 Room Air 12/22/16 08:00 Room Air 12/22/16 07:49 36.8 73 16 94/66 (75) 98 CPAP 12/22/16 05:33 77 106/64 (78) 12/22/16 04:05 37.0 53 16 105/64 (78) 100 12/22/16 04:00 CPAP 2.0 12/22/16 00:47 80 111/72 (85) 12/22/16 00:00 CPAP 2.0 12/21/16 23:49 36.5 76 16 106/65 (79) 99 Room Air 12/21/16 22:31 104 18 125/68 (87) 95 CPAP 2.0 12/21/16 20:09 36.3 92 18 98/56 (70) Room Air 12/21/16 20:00 Room Air 12/21/16 16:45 36.6 74 18 107/63 (78) 100 Room Air 12/21/16 16:00 Room Air 12/21/16 15:58 36.4 75 20 115/69 (84) 93 Room Air Lab Results: Results Past 24 Hours Test 12/21/16 16:36 12/21/16 20:53 12/22/16 07:12 12/22/16 07:16 Range/Units Bedside Glucose 201 252 158 70-99 mg/dl Sodium Level 145 136-145 mmol/L Potassium Level 2.6 3.5-5.1 mmol/L Chloride Level 109 98-107 mmol/L Carbon Dioxide Level 30 21-32 mmol/L Anion Gap 6.0 3-11 mmol/L Blood Urea Nitrogen 35 7-18 mg/dl Creatinine 2.50 0.60-1.40 mg/dl Est Creatinine Clear Calc Drug Dose 27.9 ml/min Estimated GFR () 26.0 Estimated GFR (Non- 22.4 BUN/Creatinine Ratio 13.9 10-20 Random Glucose 138 70-99 mg/dl Calcium Level 8.4 8.5-10.1 mg/dl Magnesium Level 2.0 1.8-2.4 mg/dl Ammonia 18.0 11-32 umol/L Test 12/22/16 11:47 Range/Units Bedside Glucose 235 70-99 mg/dl
[2016-12-22] MEDS: POTASSIUM CHLR 10 MEQ / WTR 10 MEQ in PREMIXED WATER 100 ML IV SCH ×4 (14:58→21:11)
--- NOTE | 2016-12-22 17:11 | Nephrology Progress Note ---
Nephrology Progress Note Date of Service: Dec 22, 2016. Subjective 86 yo male with ckd stage 4, paroxysmal afib, cirrhosis who had izaiah/proteus uti. pt found to have low potassium today as well as low blood pressures. metolazone held this morning. pt is oob to chair but is frustrated that his legs are not improving and are still swollen. pt was walking around hallway today though and not lightheaded. Objective Date Time Temp Pulse Resp B/P (MAP) Pulse Ox O2 Delivery O2 Flow Rate FiO2 12/22/16 16:15 36.5 77 18 102/56 (71) 94 Room Air 12/22/16 16:00 Room Air 12/22/16 11:26 36.6 80 16 95/56 (69) 91 Room Air 12/22/16 08:00 Room Air 12/22/16 07:49 36.8 73 16 94/66 (75) 98 CPAP 12/22/16 05:33 77 106/64 (78) 12/22/16 04:05 37.0 53 16 105/64 (78) 100 12/22/16 04:00 CPAP 2.0 12/22/16 00:47 80 111/72 (85) 12/22/16 00:00 CPAP 2.0 12/21/16 23:49 36.5 76 16 106/65 (79) 99 Room Air 12/21/16 22:31 104 18 125/68 (87) 95 CPAP 2.0 12/21/16 20:09 36.3 92 18 98/56 (70) Room Air 12/21/16 20:00 Room Air Physical Exam: General-aaox3 Eyes-no scleral icterus ENT-mmm Neck-supple Lungs-cta Heart-irregularly irregular Abdomen-bs+ s/nt/+distention Extremities-+2 edema Neuro-nonfocal Current Inpatient Medications Medications (Trade) Dose Ordered Sig/Gin Route Start Time Stop Time Status Last Admin Dose Admin Insulin Aspart (novoLOG ASPART) SLIDING SCALE If C... ACHS SC 12/16/16 21:00 01/15/17 20:59 12/22/16 12:43 4 UNITS Glucose (Glucose 40% Gel) 15-30 GRAMS 15 GRAMS... UD PRN PO 12/16/16 19:00 01/15/17 18:59 Glucose (Glucose Chew Tab) 4-8 Tablets 4 Tabl... UD PRN PO 12/16/16 19:00 01/15/17 18:59 Dextrose (Dextrose 50% 50ML Syringe) 25-50ML OF 50% DW IV FOR... UD PRN IV 12/16/16 19:00 01/15/17 18:59 Glucagon (Glucagon Inj) 1 mg UD PRN SQ 12/16/16 19:00 01/15/17 18:59 Famotidine (Pepcid Tab) 20 mg QPM PO 12/16/16 21:00 01/15/17 20:59 12/21/16 21:11 20 MG Pantoprazole Sodium (Protonix Tab) 40 mg DAILY PO 12/17/16 09:00 01/16/17 08:59 12/22/16 08:30 40 MG Acetaminophen (Tylenol Tab) 650 mg Q4H PRN PO 12/16/16 19:00 01/15/17 18:59 Fluticasone Propionate (Flonase Nasal [place]) 1 sprays DAILY MAGAN 12/18/16 09:00 01/17/17 08:59 12/22/16 08:27 1 SPRAYS Folic Acid (Folvite Tab) 1 mg DAILY PO 12/18/16 09:00 01/17/17 08:59 12/22/16 08:30 1 MG Metoprolol Succinate (Toprol Xl Tab) 12.5 mg DAILY PO 12/18/16 09:00 01/17/17 08:59 Lactulose (Chronulac Syrup) 15 gm TID PO 12/17/16 14:00 01/16/17 13:59 12/22/16 13:37 15 GM Furosemide 40 mg/ Syringe 4 ml @ 4 mls/min Q8@0200,1000,1800 IV 12/19/16 18:00 01/18/17 17:59 12/22/16 08:31 4 MLS/MIN Furosemide 80 mg/ Albumin Human 58 ml @ 54 mls/hr Q8H IV 12/20/16 14:00 12/23/16 13:59 12/22/16 15:00 54 MLS/HR Metolazone (Zaroxolyn Tab) 5 mg QAM PO 12/21/16 09:00 01/20/17 08:59 12/21/16 08:23 5 MG Last 24 Hours Test 12/21/16 20:53 12/22/16 07:12 12/22/16 07:16 12/22/16 11:47 Bedside Glucose 252 mg/dl 158 mg/dl 235 mg/dl Sodium Level 145 mmol/L Potassium Level 2.6 mmol/L Chloride Level 109 mmol/L Carbon Dioxide Level 30 mmol/L Anion Gap 6.0 mmol/L Blood Urea Nitrogen 35 mg/dl Creatinine 2.50 mg/dl Est Creatinine Clear Calc Drug Dose 27.9 ml/min Estimated GFR () 26.0 Estimated GFR (Non- 22.4 BUN/Creatinine Ratio 13.9 Random Glucose 138 mg/dl Calcium Level 8.4 mg/dl Magnesium Level 2.0 mg/dl Ammonia 18.0 umol/L Test 12/22/16 16:00 12/22/16 16:28 Bedside Glucose 183 mg/dl Assessment & Plan izaiah on ckd stage 4-creatinine tends to vary a lot based on diuretics. creatinine improved from 3.3 to 2.5. currently on lasix/albumin/midodrine. has distended abdomen and edema in legs. difficult situation since pt does not diurese very well despite high dose diuretics. will continue current regimen for now. primary hospitalist did discuss hospice last week however pt and family were not ready for that. hypokalemia-repleting aggressively and following levels. held metolazone this morning because of low blood pressures and continue to hold today with the low potassium. trying to replete the stores.
[2016-12-22] MEDS: FAMOTIDINE 20 MG TAB PO SCH (21:12)
[2016-12-23] MEDS: FUROSEMIDE INJ 40 MG in SYRINGE 0 ML IV SCH ×3 (02:06→18:04)
[2016-12-23 03:45] VITALS: BP 94/58; PULSE 77; TEMP 36.7; O2SAT 98
[2016-12-23 06:24] LABS: HEMATOCRIT 25.4 % (42-52); MEAN CELL VOLUME 85.2 fL (80-100); MEAN CORPUSCULAR HEMOGLOBIN 25.8 pg (25-34); MEAN CORPUSCULAR HGB CONC 30.3 g/dl (32-36); RED BLOOD COUNT 2.98 M/uL (4.7-6.1); WHITE BLOOD COUNT 3.59 K/uL (4.8-10.8)
[2016-12-23] MEDS: ALBUMIN 25% 50 ML with FUROSEMIDE INJ 80 MG IV SCH ×2 (06:30)
[2016-12-23 06:33] LABS: MEAN PLATELET VOLUME 9.4 fL (7.4-10.4); PLATELET COUNT 60 K/uL (130-400)
[2016-12-23 06:54] LABS: BUN/CREATININE RATIO 12.6 (10-20); CALCIUM 8.2 mg/dl (8.5-10.1); CREATININE 2.6 mg/dl (0.60-1.40); POTASSIUM 2.8 mmol/L (3.5-5.1)
[2016-12-23 07:11] LABS: ANISOCYTOSIS PRESENT; BASO % 0.3 %; BASO ABS # 0.01 K/uL (0-0.2); COMPLETE YES; EOS % 1.9 %; IG% 0.3 %; LYMPH % 5.3 %; LYMPH ABS # 0.19 K/uL (1.2-3.4); MONO % 12.8 %; NEUT % 79.4 %; OVALOCYTES 1+
[2016-12-23] MEDS ORDERED: POTASSIUM CHLORIDE 10 MEQ TABCR PO ONE (07:30)
[2016-12-23 08:01] VITALS: BP 125/80; PULSE 55; TEMP 36.5; O2SAT 100
[2016-12-23] MEDS: PANTOprazole SOD 40 MG TAB PO SCH (08:05)
[2016-12-23] MEDS: POTASSIUM CHLR 10 MEQ / WTR 10 MEQ in PREMIXED WATER 100 ML IV SCH ×4 (08:05→12:19)
[2016-12-23] MEDS: LACTULOSE SYRUP 10 GM/15 ML BTL 473 ML PO SCH ×3 (08:05→20:55)
[2016-12-23] MEDS: FLUTICASONE PROPIONATE NA SPR 16 GM BTL NAE SCH (08:05)
[2016-12-23] MEDS: METOPROLOL SUCC 25MG EXT REL TAB PO SCH (08:06)
[2016-12-23] MEDS: METOLAZONE 5 MG TAB PO SCH (08:06)
[2016-12-23] MEDS: INSULIN ASPART 100 UNITS/ML 3 ML PEN SC SCH ×4 (08:08→20:59)
--- NOTE | 2016-12-23 10:46 | Nephrology Progress Note ---
Nephrology Progress Note Date of Service: Dec 23, 2016. Subjective 86 yo male with ckd stage 4, paroxysmal afib, cirrhosis who had izaiah/proteus uti. has been having issues with low potassium likely from trying to diurese aggressively. Objective Date Time Temp Pulse Resp B/P (MAP) Pulse Ox O2 Delivery O2 Flow Rate FiO2 12/23/16 08:01 36.5 55 17 125/80 (95) 100 12/23/16 08:00 Room Air 12/23/16 04:00 Room Air CPAP 12/23/16 03:45 36.7 77 18 94/58 (70) 98 Room Air 12/23/16 00:00 Room Air CPAP 12/22/16 23:55 36.5 78 20 102/63 (76) 97 Room Air 12/22/16 20:01 Room Air 12/22/16 20:00 36.8 107 18 118/74 (89) Room Air 12/22/16 16:15 36.5 77 18 102/56 (71) 94 Room Air 12/22/16 16:00 Room Air 12/22/16 11:26 36.6 80 16 95/56 (69) 91 Room Air Physical Exam: General-aaox3 Eyes-no scleral icterus ENT-mmm Neck-supple Lungs-clear Heart-irregularly irregular Abdomen-bs+ s/nt/+distention Extremities-+2 edema Neuro-nonfocal Current Inpatient Medications Medications (Trade) Dose Ordered Sig/Gin Route Start Time Stop Time Status Last Admin Dose Admin Insulin Aspart (novoLOG ASPART) SLIDING SCALE If C... ACHS SC 12/16/16 21:00 01/15/17 20:59 12/23/16 08:08 3 UNITS Glucose (Glucose 40% Gel) 15-30 GRAMS 15 GRAMS... UD PRN PO 12/16/16 19:00 01/15/17 18:59 Glucose (Glucose Chew Tab) 4-8 Tablets 4 Tabl... UD PRN PO 12/16/16 19:00 01/15/17 18:59 Dextrose (Dextrose 50% 50ML Syringe) 25-50ML OF 50% DW IV FOR... UD PRN IV 12/16/16 19:00 01/15/17 18:59 Glucagon (Glucagon Inj) 1 mg UD PRN SQ 12/16/16 19:00 01/15/17 18:59 Famotidine (Pepcid Tab) 20 mg QPM PO 12/16/16 21:00 01/15/17 20:59 12/22/16 21:12 20 MG Pantoprazole Sodium (Protonix Tab) 40 mg DAILY PO 12/17/16 09:00 01/16/17 08:59 12/23/16 08:05 40 MG Acetaminophen (Tylenol Tab) 650 mg Q4H PRN PO 12/16/16 19:00 01/15/17 18:59 Fluticasone Propionate (Flonase Nasal [place]) 1 sprays DAILY MAGAN 12/18/16 09:00 01/17/17 08:59 12/23/16 08:05 1 SPRAYS Folic Acid (Folvite Tab) 1 mg DAILY PO 12/18/16 09:00 01/17/17 08:59 12/23/16 08:06 1 MG Metoprolol Succinate (Toprol Xl Tab) 12.5 mg DAILY PO 12/18/16 09:00 01/17/17 08:59 Lactulose (Chronulac Syrup) 15 gm TID PO 12/17/16 14:00 01/16/17 13:59 12/23/16 08:05 15 GM Furosemide 40 mg/ Syringe 4 ml @ 4 mls/min Q8@0200,1000,1800 IV 12/19/16 18:00 01/18/17 17:59 12/23/16 09:31 4 MLS/MIN Furosemide 80 mg/ Albumin Human 58 ml @ 54 mls/hr Q8H IV 12/20/16 14:00 12/23/16 13:59 12/23/16 06:30 54 MLS/HR Metolazone (Zaroxolyn Tab) 5 mg QAM PO 12/21/16 09:00 01/20/17 08:59 12/23/16 08:06 5 MG Potassium Chloride 10 meq/ Prmx 100 ml @ 100 mls/hr Q1H IV 12/23/16 07:30 12/23/16 11:29 12/23/16 09:31 100 MLS/HR Last 24 Hours Test 12/22/16 11:47 12/22/16 16:28 12/22/16 17:17 12/22/16 20:04 Bedside Glucose 235 mg/dl 183 mg/dl 261 mg/dl Potassium Level 2.9 mmol/L Test 12/23/16 05:56 12/23/16 07:36 White Blood Count 3.59 K/uL Red Blood Count 2.98 M/uL Hemoglobin 7.7 g/dL Hematocrit 25.4 % Mean Corpuscular Volume 85.2 fL Mean Corpuscular Hemoglobin 25.8 pg Mean Corpuscular Hemoglobin Concent 30.3 g/dl Platelet Count 60 K/uL Mean Platelet Volume 9.4 fL Neutrophils (%) (Auto) 79.4 % Lymphocytes (%) (Auto) 5.3 % Monocytes (%) (Auto) 12.8 % Eosinophils (%) (Auto) 1.9 % Basophils (%) (Auto) 0.3 % Neutrophils # (Auto) 2.85 K/uL Lymphocytes # (Auto) 0.19 K/uL Monocytes # (Auto) 0.46 K/uL Eosinophils # (Auto) 0.07 K/uL Basophils # (Auto) 0.01 K/uL RDW Standard Deviation 52.5 fL RDW Coefficient of Variation 17.0 % Immature Granulocyte % (Auto) 0.3 % Immature Granulocyte # (Auto) 0.01 K/uL Anisocytosis PRESENT Ovalocytes 1+ Sodium Level 146 mmol/L Potassium Level 2.8 mmol/L Chloride Level 110 mmol/L Carbon Dioxide Level 30 mmol/L Anion Gap 6.0 mmol/L Blood Urea Nitrogen 33 mg/dl Creatinine 2.60 mg/dl Est Creatinine Clear Calc Drug Dose 26.4 ml/min Estimated GFR () 24.8 Estimated GFR (Non- 21.4 BUN/Creatinine Ratio 12.6 Random Glucose 150 mg/dl Calcium Level 8.2 mg/dl Magnesium Level 2.0 mg/dl Bedside Glucose 176 mg/dl Assessment & Plan izaiah on ckd stage 4-creatinine tends to vary a lot based on diuretics. creatinine improved from 3.3 to 2.4 and now trending back up likely from the diuretics. currently on lasix/albumin/midodrine. has distended abdomen and edema in legs. continue current diuretics. albumin/120 of iv lasix tid/ metolazone. hypokalemia-repleting aggressively and following levels. giving 40 of iv kcl and 40 kdur and repeating potassium levels this afternoon.
--- NOTE | 2016-12-23 11:07 | Progress Note ---
Internal Med Progress Note Date of Service: Dec 23, 2016. Provider Documentation: SUBJECTIVE: Clinically no significant change Offers no complaints Denies any chest pain, ABD pain, SOB Still has significant leg swelling, distention of abdomen OBJECTIVE: Vital Signs-as noted below Physical Exam: General Appearance:Moderately built and nourished, no apparent distress Head: normocephalic, Atraumatic Eyes: normal inspection, EOMI, PERRL Neck: supple, Trachea midline Respiratory/Chest: Normal breath sounds, CTA Cardiovascular: Irregularly irregular, No murmur Abdomen/GI:Soft, Non tender, +distended, Bowel sounds present Extremities/Musculoskelatal:normal inspection, b/l LE edema Neurologic/Psych:grossly no focal neurological deficits Skin: normal color, warm Lab data as noted below. ASSESSMENT & PLAN: Patient is an 86 yr male with history of CKD IV, Paroxysmal A fib, SSS s/p PM, DM, HTN, COPD, Cirrhosis, CARLITA, Myelodysplastic Syndrome, Chronic Thrombocytopenia presenting with hypotension and weakness. HYPOTENSION Likely secondary to diuretics Improving continue Metoprolol at reduced dose of 12.5mg HYPOKALEMIA: secondary to diuretics Replace and monitor Magnesium levels normal PROTEUS UTI afebrile blood and urine cultures negative (+) Proteus per Urine Culture 12/13/16 possible pneumonia per CXR lactic acid 3.9--> 1.3 Vancomycin discontinued on Zosyn Day 4 >>>>deescalated to Ceftriaxone Day 3/3 to completed total 7 days of antibiotics MAGEN on CKD IV Secondary to diuretics Cr 2.0 in September Cr 3.3 --> 2.9---> 2.5>>>>.2.8 Appreciate Nephrology help On Lasix, albumin, metolazone per Nephrology Monitor renal function ASCITES, LIVER CIRRHOSIS BY CT SCAN noted to have liver cirrhosis last September [address] liver US: mild to moderate ascites ammonia 81>>>>18 Lactulose started, mental status at baseline per family on Lasix per Nephro Cirrhosis likely Hepatic Congestion from CHF per GI Echo: No significant change compared to study of 09/02/16. * Normal LV chamber size with mild concentric LVH. * The patient is s/p septal myomectomy. * Echo findings are not consistent with left ventricular outflow obstruction. * Normal LV systolic function with abnormal septal wall motion consistent with conduction abnormality, EF 65-70%. * No segmental left ventricular wall motion abnormalities are noted. * Mild mitral regurgitation. * Moderately dilated ascending aorta. * Mild aortic root dilatation. continue Lactulose ,Lasix, low sodium diet R/O CHF HISTORY OF CARDIOMYOPATHY ECHO as above Continue Lasix, Albumin per Nephrology PAROXYSMAL A FIB SSS, S/P PACEMAKER on Metoprolol, decrease dose to prevent hypotension HR controlled not on anticoag per Cardiology DM II hold Lantus ISS for now COPD not in exacerbation CARLITA continue CPAP CHRONIC THROMBOCYTOPENIA MYELODYSPLASTIC SYNDROME Hg and Plt stable CODE STATUS DNR per son DVT prophylaxis SCDs contraindicated as patient has edema Anticoag contraindicated as patient as Plt < 100 ambulate DISPOSITION Accepted at [facility], will plan to discharge when stable Discussed with patient's daughter: would like to continue medical management and defer hospice referral for now Vital Signs: Date Time Temp Pulse Resp B/P (MAP) Pulse Ox O2 Delivery O2 Flow Rate FiO2 12/23/16 08:01 36.5 55 17 125/80 (95) 100 12/23/16 08:00 Room Air 12/23/16 04:00 Room Air CPAP 12/23/16 03:45 36.7 77 18 94/58 (70) 98 Room Air 12/23/16 00:00 Room Air CPAP 12/22/16 23:55 36.5 78 20 102/63 (76) 97 Room Air 12/22/16 20:01 Room Air 12/22/16 20:00 36.8 107 18 118/74 (89) Room Air 12/22/16 16:15 36.5 77 18 102/56 (71) 94 Room Air 12/22/16 16:00 Room Air 12/22/16 11:26 36.6 80 16 95/56 (69) 91 Room Air Lab Results: Results Past 24 Hours Test 12/22/16 11:47 12/22/16 16:28 12/22/16 17:17 12/22/16 20:04 Range/Units Bedside Glucose 235 183 261 70-99 mg/dl Potassium Level 2.9 3.5-5.1 mmol/L Test 12/23/16 05:56 12/23/16 07:36 Range/Units White Blood Count 3.59 4.8-10.8 K/uL Red Blood Count 2.98 4.7-6.1 M/uL Hemoglobin 7.7 14.0-18.0 g/dL Hematocrit 25.4 42-52 % Mean Corpuscular Volume 85.2 80-100 fL Mean Corpuscular Hemoglobin 25.8 25-34 pg Mean Corpuscular Hemoglobin Concent 30.3 32-36 g/dl Platelet Count 60 130-400 K/uL Mean Platelet Volume 9.4 7.4-10.4 fL Neutrophils (%) (Auto) 79.4 % Lymphocytes (%) (Auto) 5.3 % Monocytes (%) (Auto) 12.8 % Eosinophils (%) (Auto) 1.9 % Basophils (%) (Auto) 0.3 % Neutrophils # (Auto) 2.85 1.4-6.5 K/uL Lymphocytes # (Auto) 0.19 1.2-3.4 K/uL Monocytes # (Auto) 0.46 0.11-0.59 K/uL Eosinophils # (Auto) 0.07 0-0.5 K/uL Basophils # (Auto) 0.01 0-0.2 K/uL RDW Standard Deviation 52.5 36.4-46.3 fL RDW Coefficient of Variation 17.0 11.5-14.5 % Immature Granulocyte % (Auto) 0.3 % Immature Granulocyte # (Auto) 0.01 0.00-0.02 K/uL Anisocytosis PRESENT Ovalocytes 1+ Sodium Level 146 136-145 mmol/L Potassium Level 2.8 3.5-5.1 mmol/L Chloride Level 110 98-107 mmol/L Carbon Dioxide Level 30 21-32 mmol/L Anion Gap 6.0 3-11 mmol/L Blood Urea Nitrogen 33 7-18 mg/dl Creatinine 2.60 0.60-1.40 mg/dl Est Creatinine Clear Calc Drug Dose 26.4 ml/min Estimated GFR () 24.8 Estimated GFR (Non- 21.4 BUN/Creatinine Ratio 12.6 10-20 Random Glucose 150 70-99 mg/dl Calcium Level 8.2 8.5-10.1 mg/dl Magnesium Level 2.0 1.8-2.4 mg/dl Bedside Glucose 176 70-99 mg/dl
[2016-12-23 15:12] VITALS: BP 88/56; PULSE 117; TEMP 36.5; O2SAT 95
[2016-12-23 19:46] VITALS: BP 96/58; PULSE 72; TEMP 36.7
[2016-12-23] MEDS: FAMOTIDINE 20 MG TAB PO SCH (20:55)
[2016-12-23 23:18] VITALS: BP 112/72; PULSE 80; TEMP 36.6; O2SAT 100
[2016-12-24] MEDS: FUROSEMIDE INJ 40 MG in SYRINGE 0 ML IV SCH ×3 (01:53→18:12)
[2016-12-24 04:27] VITALS: BP 103/64; PULSE 75; TEMP 36.4; O2SAT 97
[2016-12-24 06:05] LABS: HEMATOCRIT 25.7 % (42-52)
[2016-12-24 06:44] LABS: BUN/CREATININE RATIO 12.8 (10-20); CALCIUM 8.2 mg/dl (8.5-10.1); CREATININE 2.7 mg/dl (0.60-1.40); MAGNESIUM 1.9 mg/dl (1.8-2.4)
[2016-12-24 07:00] VITALS: BP 96/60; PULSE 81; TEMP 36.6; O2SAT 98
[2016-12-24] MEDS ORDERED: POTASSIUM CHLORIDE 10 MEQ TABCR PO ONE ×2 (07:30→23:00)
[2016-12-24] MEDS: PANTOprazole SOD 40 MG TAB PO SCH (08:19)
[2016-12-24] MEDS: METOLAZONE 5 MG TAB PO SCH (08:19)
[2016-12-24] MEDS: POTASSIUM CHLR 10 MEQ / WTR 10 MEQ in PREMIXED WATER 100 ML IV SCH ×2 (08:20→08:45)
[2016-12-24] MEDS: LACTULOSE SYRUP 10 GM/15 ML BTL 473 ML PO SCH ×3 (08:20→20:55)
[2016-12-24] MEDS: FLUTICASONE PROPIONATE NA SPR 16 GM BTL NAE SCH (08:20)
[2016-12-24] MEDS: METOPROLOL SUCC 25MG EXT REL TAB PO SCH (08:20)
[2016-12-24] MEDS: INSULIN ASPART 100 UNITS/ML 3 ML PEN SC SCH ×4 (08:23→20:56)
--- NOTE | 2016-12-24 10:14 | Progress Note ---
Internal Med Progress Note Date of Service: Dec 24, 2016. Provider Documentation: SUBJECTIVE: No new complaints Clinically no significant change Denies any chest pain, ABD pain, SOB Still has significant leg swelling, distention of abdomen on IV diuretics OBJECTIVE: Vital Signs-as noted below Physical Exam: General Appearance:Moderately built and nourished, no apparent distress Head: normocephalic, Atraumatic Eyes: normal inspection, EOMI, PERRL Neck: supple, Trachea midline Respiratory/Chest: Normal breath sounds, CTA Cardiovascular: Irregularly irregular, No murmur Abdomen/GI:Soft, Non tender, +distended, Bowel sounds present Extremities/Musculoskelatal:normal inspection, b/l LE edema Neurologic/Psych:grossly no focal neurological deficits Skin: normal color, warm Lab data as noted below. ASSESSMENT & PLAN: Patient is an 86 yr male with history of CKD IV, Paroxysmal A fib, SSS s/p PM, DM, HTN, COPD, Cirrhosis, CARLITA, Myelodysplastic Syndrome, Chronic Thrombocytopenia presenting with hypotension and weakness. MAGEN on CKD IV Secondary to diuretics Cr 2.0 in September Cr 3.3 --> 2.9---> 2.5>>>>.2.7 Appreciate Nephrology help continue IV diuretics per Nephrology Also on metolazone S/P Albumin Monitor renal function HYPOTENSION Likely secondary to diuretics Stable continue Metoprolol at reduced dose of 12.5mg HYPOKALEMIA: secondary to diuretics Replace and monitor Magnesium levels normal PROTEUS UTI afebrile blood and urine cultures negative (+) Proteus per Urine Culture 12/13/16 possible pneumonia per CXR lactic acid 3.9--> 1.3 Vancomycin discontinued on Zosyn Day 4 >>>>deescalated to Ceftriaxone Day 3/3 to completed total 7 days of antibiotics ASCITES, LIVER CIRRHOSIS BY CT SCAN noted to have liver cirrhosis last September [address] liver US: mild to moderate ascites ammonia 81>>>>18 Lactulose started, mental status at baseline per family on Lasix per Nephro Cirrhosis likely Hepatic Congestion from CHF per GI Echo: No significant change compared to study of 09/02/16. * Normal LV chamber size with mild concentric LVH. * The patient is s/p septal myomectomy. * Echo findings are not consistent with left ventricular outflow obstruction. * Normal LV systolic function with abnormal septal wall motion consistent with conduction abnormality, EF 65-70%. * No segmental left ventricular wall motion abnormalities are noted. * Mild mitral regurgitation. * Moderately dilated ascending aorta. * Mild aortic root dilatation. continue Lactulose ,Lasix, low sodium diet , fluid restriction R/O CHF HISTORY OF CARDIOMYOPATHY ECHO as above Continue Lasix, Albumin per Nephrology PAROXYSMAL A FIB SSS, S/P PACEMAKER on Metoprolol, decrease dose to prevent hypotension HR controlled not on anticoag per Cardiology DM II hold Lantus ISS for now COPD not in exacerbation CARLITA continue CPAP CHRONIC THROMBOCYTOPENIA MYELODYSPLASTIC SYNDROME Hg and Plt stable CODE STATUS DNR per son DVT prophylaxis SCDs contraindicated as patient has edema Anticoag contraindicated as patient as Plt < 100 ambulate DISPOSITION Accepted at [facility], will plan to discharge when stable Discussed with patient's daughter: would like to continue medical management and defer hospice referral for now Vital Signs: Date Time Temp Pulse Resp B/P (MAP) Pulse Ox O2 Delivery O2 Flow Rate FiO2 12/24/16 07:00 36.6 81 18 96/60 (72) 98 Room Air 12/24/16 04:27 36.4 75 18 103/64 (77) 97 CPAP 4.0 12/24/16 04:10 Room Air 12/24/16 00:25 Room Air 12/23/16 23:18 36.6 80 18 112/72 (85) 100 Room Air 12/23/16 20:05 Room Air 12/23/16 19:46 36.7 72 20 96/58 (71) Room Air 12/23/16 16:00 Room Air 12/23/16 15:12 36.5 117 20 88/56 (67) 95 Room Air 12/23/16 12:00 Room Air Lab Results: Results Past 24 Hours Test 12/23/16 11:33 12/23/16 14:16 12/23/16 16:07 12/23/16 20:10 Range/Units Bedside Glucose 220 175 240 70-99 mg/dl Potassium Level 3.6 3.5-5.1 mmol/L Test 12/24/16 05:25 12/24/16 07:35 Range/Units Hemoglobin 7.8 14.0-18.0 g/dL Hematocrit 25.7 42-52 % Sodium Level 146 136-145 mmol/L Potassium Level 3.0 3.5-5.1 mmol/L Chloride Level 109 98-107 mmol/L Carbon Dioxide Level 30 21-32 mmol/L Anion Gap 7.0 3-11 mmol/L Blood Urea Nitrogen 35 7-18 mg/dl Creatinine 2.70 0.60-1.40 mg/dl Est Creatinine Clear Calc Drug Dose 25.4 ml/min Estimated GFR () 23.7 Estimated GFR (Non- 20.4 BUN/Creatinine Ratio 12.8 10-20 Random Glucose 170 70-99 mg/dl Calcium Level 8.2 8.5-10.1 mg/dl Magnesium Level 1.9 1.8-2.4 mg/dl Bedside Glucose 142 70-99 mg/dl
--- NOTE | 2016-12-24 10:29 | Nephrology Progress Note ---
Nephrology Progress Note Date of Service: Dec 24, 2016. Subjective 86 yo male with ckd stage 4, paroxysmal afib, cirrhosis who had izaiah/proteus uti. has been having issues with low potassium likely from trying to diurese aggressively. pt oob to chair. frustrated that the edema is not improving. pt adhering to fluid restriction. Objective Date Time Temp Pulse Resp B/P (MAP) Pulse Ox O2 Delivery O2 Flow Rate FiO2 12/24/16 08:00 Room Air 12/24/16 07:00 36.6 81 18 96/60 (72) 98 Room Air 12/24/16 04:27 36.4 75 18 103/64 (77) 97 CPAP 4.0 12/24/16 04:10 Room Air 12/24/16 00:25 Room Air 12/23/16 23:18 36.6 80 18 112/72 (85) 100 Room Air 12/23/16 20:05 Room Air 12/23/16 19:46 36.7 72 20 96/58 (71) Room Air 12/23/16 16:00 Room Air 12/23/16 15:12 36.5 117 20 88/56 (67) 95 Room Air 12/23/16 12:00 Room Air Physical Exam: General-aaox3 Eyes-no scleral icterus ENT-mmm Neck-supple Lungs-cta Heart-irregularly irregular Abdomen-bs+ s/nt/+distention Extremities-+2 edema Neuro-nonfocal Current Inpatient Medications Medications (Trade) Dose Ordered Sig/Gin Route Start Time Stop Time Status Last Admin Dose Admin Insulin Aspart (novoLOG ASPART) SLIDING SCALE If C... ACHS SC 12/16/16 21:00 01/15/17 20:59 12/24/16 08:23 2 UNITS Glucose (Glucose 40% Gel) 15-30 GRAMS 15 GRAMS... UD PRN PO 12/16/16 19:00 01/15/17 18:59 Glucose (Glucose Chew Tab) 4-8 Tablets 4 Tabl... UD PRN PO 12/16/16 19:00 01/15/17 18:59 Dextrose (Dextrose 50% 50ML Syringe) 25-50ML OF 50% DW IV FOR... UD PRN IV 12/16/16 19:00 01/15/17 18:59 Glucagon (Glucagon Inj) 1 mg UD PRN SQ 12/16/16 19:00 01/15/17 18:59 Famotidine (Pepcid Tab) 20 mg QPM PO 12/16/16 21:00 01/15/17 20:59 12/23/16 20:55 20 MG Pantoprazole Sodium (Protonix Tab) 40 mg DAILY PO 12/17/16 09:00 01/16/17 08:59 12/24/16 08:19 40 MG Acetaminophen (Tylenol Tab) 650 mg Q4H PRN PO 12/16/16 19:00 01/15/17 18:59 Fluticasone Propionate (Flonase Nasal [place]) 1 sprays DAILY MAGAN 12/18/16 09:00 01/17/17 08:59 12/24/16 08:20 1 SPRAYS Folic Acid (Folvite Tab) 1 mg DAILY PO 12/18/16 09:00 01/17/17 08:59 12/24/16 08:19 1 MG Metoprolol Succinate (Toprol Xl Tab) 12.5 mg DAILY PO 12/18/16 09:00 01/17/17 08:59 Lactulose (Chronulac Syrup) 15 gm TID PO 12/17/16 14:00 01/16/17 13:59 12/24/16 08:20 15 GM Furosemide 40 mg/ Syringe 4 ml @ 4 mls/min Q8@0200,1000,1800 IV 12/19/16 18:00 01/18/17 17:59 12/24/16 01:53 4 MLS/MIN Metolazone (Zaroxolyn Tab) 5 mg QAM PO 12/21/16 09:00 01/20/17 08:59 12/24/16 08:19 5 MG Last 24 Hours Test 12/23/16 11:33 12/23/16 14:16 12/23/16 16:07 12/23/16 20:10 Bedside Glucose 220 mg/dl 175 mg/dl 240 mg/dl Potassium Level 3.6 mmol/L Test 12/24/16 05:25 12/24/16 07:35 Hemoglobin 7.8 g/dL Hematocrit 25.7 % Sodium Level 146 mmol/L Potassium Level 3.0 mmol/L Chloride Level 109 mmol/L Carbon Dioxide Level 30 mmol/L Anion Gap 7.0 mmol/L Blood Urea Nitrogen 35 mg/dl Creatinine 2.70 mg/dl Est Creatinine Clear Calc Drug Dose 25.4 ml/min Estimated GFR () 23.7 Estimated GFR (Non- 20.4 BUN/Creatinine Ratio 12.8 Random Glucose 170 mg/dl Calcium Level 8.2 mg/dl Magnesium Level 1.9 mg/dl Bedside Glucose 142 mg/dl Assessment & Plan izaiah on ckd stage 4-creatinine tends to vary a lot based on diuretics. creatinine improved from 3.3 to 2.4 and now trending back up likely from the diuretics. currently on lasix/albumin/metolazone. has distended abdomen and edema in legs. hypokalemia-repleting aggressively and following levels. giving k prn and will start 40meq kdur daily. once potassium has stabilized on a good oral regimen, ok from renal perspective to go home. continue the metolazone and lasix for now and would send out on metolazone 5mg daily and lasix 160 po q8 and kdur 40meq po bid, however for now, continue the iv lasix.
[2016-12-24 11:15] VITALS: BP 93/61; PULSE 70; TEMP 36.7; O2SAT 98
[2016-12-24 15:10] VITALS: BP 99/63; PULSE 81; TEMP 36.6; O2SAT 98
[2016-12-24 19:32] LABS: BUN/CREATININE RATIO 13.1 (10-20); CALCIUM 8.4 mg/dl (8.5-10.1); CREATININE 2.8 mg/dl (0.60-1.40); POTASSIUM 2.9 mmol/L (3.5-5.1)
[2016-12-24 20:11] VITALS: BP 107/62; PULSE 70; TEMP 36.7; O2SAT 95
[2016-12-24] MEDS: POTASSIUM CHLORIDE 10 MEQ TABCR PO SCH (20:55)
[2016-12-24] MEDS: FAMOTIDINE 20 MG TAB PO SCH (20:55)
[2016-12-25] VITALS: BP 97/60; PULSE 86; TEMP 36.4; O2SAT 98
[2016-12-25] MEDS: FUROSEMIDE INJ 40 MG in SYRINGE 0 ML IV SCH ×3 (02:03→17:49)
[2016-12-25 04:55] VITALS: BP 102/63; PULSE 71; TEMP 36.5; O2SAT 98
[2016-12-25 06:23] LABS: CALCIUM 8.6 mg/dl (8.5-10.1); CREATININE 2.9 mg/dl (0.60-1.40); POTASSIUM 3.5 mmol/L (3.5-5.1)
[2016-12-25 07:21] VITALS: BP 103/65; PULSE 69; TEMP 36.7; O2SAT 97
[2016-12-25] MEDS: PANTOprazole SOD 40 MG TAB PO SCH (08:24)
[2016-12-25] MEDS: METOLAZONE 5 MG TAB PO SCH (08:24)
[2016-12-25] MEDS: FLUTICASONE PROPIONATE NA SPR 16 GM BTL NAE SCH (08:25)
[2016-12-25] MEDS: LACTULOSE SYRUP 10 GM/15 ML BTL 473 ML PO SCH ×3 (08:25→21:12)
[2016-12-25] MEDS: METOPROLOL SUCC 25MG EXT REL TAB PO SCH (08:26)
[2016-12-25] MEDS ORDERED: POTASSIUM CHLORIDE 10 MEQ TABCR PO SCH (09:00)
[2016-12-25] MEDS: INSULIN ASPART 100 UNITS/ML 3 ML PEN SC SCH ×4 (09:00→21:18)
[2016-12-25] MEDS: POTASSIUM CHLORIDE 10 MEQ TABCR PO SCH ×2 (09:02→21:11)
[2016-12-25 11:41] VITALS: BP 106/61; PULSE 67; TEMP 36.6; O2SAT 94
--- NOTE | 2016-12-25 11:46 | Progress Note ---
Internal Med Progress Note Date of Service: Dec 25, 2016. Provider Documentation: SUBJECTIVE: States feeling well. Denies any chest pain, ABD pain, SOB Has significant leg swelling, distention of abdomen on IV diuretics OBJECTIVE: Vital Signs-as noted below Physical Exam: General Appearance:Moderately built and nourished, no apparent distress Head: normocephalic, Atraumatic Eyes: normal inspection, EOMI, PERRL Neck: supple, Trachea midline Respiratory/Chest: Normal breath sounds, CTA Cardiovascular: Irregularly irregular, No murmur Abdomen/GI:Soft, Non tender, +distended, Bowel sounds present Extremities/Musculoskelatal:normal inspection, b/l LE edema Neurologic/Psych:grossly no focal neurological deficits Skin: normal color, warm Lab data as noted below. ASSESSMENT & PLAN: Patient is an 86 yr male with history of CKD IV, Paroxysmal A fib, SSS s/p PM, DM, HTN, COPD, Cirrhosis, CARLITA, Myelodysplastic Syndrome, Chronic Thrombocytopenia presenting with hypotension and weakness. MAGEN on CKD IV Secondary to diuretics Cr 2.0 in September Cr 3.3 --> 2.9---> 2.5>>>>.2.7>>.2.9 Appreciate Nephrology help continue IV diuretics per Nephrology Also on metolazone S/P Albumin Monitor renal function Plan to switch to PO diuretics upon discharge HYPOTENSION Likely secondary to diuretics Stable continue Metoprolol at reduced dose of 12.5mg HYPOKALEMIA: secondary to diuretics Replace and monitor Magnesium levels normal Potassium levels:3.5 today PROTEUS UTI afebrile blood and urine cultures negative (+) Proteus per Urine Culture 12/13/16 possible pneumonia per CXR lactic acid 3.9--> 1.3 Vancomycin discontinued on Zosyn Day 4 >>>>deescalated to Ceftriaxone Day 3/ to completed total 7 days of antibiotics ASCITES, LIVER CIRRHOSIS BY CT SCAN noted to have liver cirrhosis last September [address] liver US: mild to moderate ascites ammonia 81>>>>18 Lactulose started, mental status at baseline per family on Lasix per Nephro Cirrhosis likely Hepatic Congestion from CHF per GI Echo: No significant change compared to study of 09/02/16. * Normal LV chamber size with mild concentric LVH. * The patient is s/p septal myomectomy. * Echo findings are not consistent with left ventricular outflow obstruction. * Normal LV systolic function with abnormal septal wall motion consistent with conduction abnormality, EF 65-70%. * No segmental left ventricular wall motion abnormalities are noted. * Mild mitral regurgitation. * Moderately dilated ascending aorta. * Mild aortic root dilatation. continue Lactulose ,Lasix, low sodium diet , fluid restriction R/O CHF HISTORY OF CARDIOMYOPATHY ECHO as above Continue Lasix, Albumin per Nephrology PAROXYSMAL A FIB SSS, S/P PACEMAKER on Metoprolol, decrease dose to prevent hypotension HR controlled not on anticoag per Cardiology recommendations DM II hold Lantus ISS for now COPD not in exacerbation CARLITA continue CPAP CHRONIC THROMBOCYTOPENIA MYELODYSPLASTIC SYNDROME Hg and Plt stable CODE STATUS DNR per son DVT prophylaxis SCDs contraindicated as patient has edema Anticoag contraindicated as patient as Plt < 100 ambulate DISPOSITION Accepted at [facility], will plan to discharge when stable Discussed with patient's daughter: would like to continue medical management and defer hospice referral for now Vital Signs: Date Time Temp Pulse Resp B/P (MAP) Pulse Ox O2 Delivery O2 Flow Rate FiO2 12/25/16 11:41 36.6 67 20 106/61 (76) 94 Room Air 12/25/16 08:00 Room Air 12/25/16 07:21 36.7 69 18 103/65 (78) 97 Room Air 12/25/16 04:55 36.5 71 18 102/63 (76) 98 BiPAP 12/25/16 04:05 Room Air 12/25/16 00:26 Room Air 12/25/16 00:00 36.4 86 18 97/60 (72) 98 CPAP 12/24/16 20:11 36.7 70 18 107/62 (77) 95 Room Air 12/24/16 19:56 Room Air 12/24/16 16:00 Room Air 12/24/16 15:10 36.6 81 18 99/63 (75) 98 Room Air 12/24/16 12:00 Room Air Lab Results: Results Past 24 Hours Test 12/24/16 16:13 12/24/16 17:58 12/24/16 20:55 12/25/16 05:37 Range/Units Bedside Glucose 248 154 70-99 mg/dl Sodium Level 147 148 136-145 mmol/L Potassium Level 2.9 3.5 3.5-5.1 mmol/L Chloride Level 111 111 98-107 mmol/L Carbon Dioxide Level 29 34 21-32 mmol/L Anion Gap 7.0 3.0 3-11 mmol/L Blood Urea Nitrogen 37 38 7-18 mg/dl Creatinine 2.80 2.90 0.60-1.40 mg/dl Est Creatinine Clear Calc Drug Dose 24.4 23.6 ml/min Estimated GFR () 22.6 21.7 Estimated GFR (Non- 19.5 18.7 BUN/Creatinine Ratio 13.1 13.0 10-20 Random Glucose 214 168 70-99 mg/dl Calcium Level 8.4 8.6 8.5-10.1 mg/dl Magnesium Level 2.0 2.0 1.8-2.4 mg/dl Test 12/25/16 07:42 Range/Units Bedside Glucose 180 70-99 mg/dl
[2016-12-25 20:15] VITALS: BP 114/74; PULSE 91; TEMP 36.7; O2SAT 95
[2016-12-25] MEDS: FAMOTIDINE 20 MG TAB PO SCH (21:12)
[2016-12-25 23:50] VITALS: BP 107/62; PULSE 83; TEMP 36.8; O2SAT 96
[2016-12-26] MEDS: FUROSEMIDE INJ 40 MG in SYRINGE 0 ML IV SCH ×3 (02:00→17:45)
[2016-12-26 02:15] VITALS: BP_SYST 83; BP_SYST 90; BP_DIAS 60; PULSE 76
[2016-12-26 05:09] VITALS: BP 103/69; PULSE 91; TEMP 36.7; O2SAT 98
[2016-12-26 06:27] LABS: BUN/CREATININE RATIO 13.7 (10-20); CREATININE 2.8 mg/dl (0.60-1.40); MAGNESIUM 2.1 mg/dl (1.8-2.4); POTASSIUM 3.3 mmol/L (3.5-5.1)
[2016-12-26 07:28] VITALS: BP 100/61; PULSE 60; TEMP 36.7; O2SAT 97
[2016-12-26] MEDS: LACTULOSE SYRUP 10 GM/15 ML BTL 473 ML PO SCH ×3 (08:02→20:39)
[2016-12-26] MEDS: PANTOprazole SOD 40 MG TAB PO SCH (08:02)
[2016-12-26] MEDS: METOLAZONE 5 MG TAB PO SCH (08:02)
[2016-12-26] MEDS: FLUTICASONE PROPIONATE NA SPR 16 GM BTL NAE SCH (08:02)
[2016-12-26] MEDS: METOPROLOL SUCC 25MG EXT REL TAB PO SCH (08:03)
[2016-12-26] MEDS: POTASSIUM CHLORIDE 10 MEQ TABCR PO SCH ×2 (08:03→20:39)
[2016-12-26] MEDS: INSULIN ASPART 100 UNITS/ML 3 ML PEN SC SCH ×4 (08:10→20:43)
--- NOTE | 2016-12-26 08:43 | Nephrology Progress Note ---
Nephrology Progress Note Date of Service: Dec 26, 2016. Subjective 86 yo male with ckd stage 4, paroxysmal afib, cirrhosis who had izaiah/proteus uti. pt continues to have edema in legs and abdominal distention despite aggressive diuretics. pt though is comfortable. pt would like to go to [facility] today if possible. Objective Date Time Temp Pulse Resp B/P (MAP) Pulse Ox O2 Delivery O2 Flow Rate FiO2 12/26/16 07:28 36.7 60 20 100/61 (74) 97 12/26/16 05:09 36.7 91 20 103/69 (80) 98 CPAP 4.0 12/26/16 04:00 CPAP 2.0 12/26/16 02:15 76 83/60 (68) 90/60 (70) 12/26/16 00:00 CPAP 2.0 12/25/16 23:50 36.8 83 18 107/62 (77) 96 CPAP 12/25/16 20:15 36.7 91 20 114/74 (87) 95 Room Air 12/25/16 20:00 Room Air 12/25/16 16:00 Room Air 12/25/16 12:00 Room Air 12/25/16 11:41 36.6 67 20 106/61 (76) 94 Room Air Physical Exam: General-aaox3 Eyes-no scleral icterus ENT-mmm Neck-supple Lungs-slight end expiratory wheeze Heart-irregular Abdomen-bs+ s/nt/+distention Extremities-+2 edema Neuro-nonfocal Current Inpatient Medications Medications (Trade) Dose Ordered Sig/Gin Route Start Time Stop Time Status Last Admin Dose Admin Insulin Aspart (novoLOG ASPART) SLIDING SCALE If C... ACHS SC 12/16/16 21:00 01/15/17 20:59 12/26/16 08:10 3 UNITS Glucose (Glucose 40% Gel) 15-30 GRAMS 15 GRAMS... UD PRN PO 12/16/16 19:00 01/15/17 18:59 Glucose (Glucose Chew Tab) 4-8 Tablets 4 Tabl... UD PRN PO 12/16/16 19:00 01/15/17 18:59 Dextrose (Dextrose 50% 50ML Syringe) 25-50ML OF 50% DW IV FOR... UD PRN IV 12/16/16 19:00 01/15/17 18:59 Glucagon (Glucagon Inj) 1 mg UD PRN SQ 12/16/16 19:00 01/15/17 18:59 Famotidine (Pepcid Tab) 20 mg QPM PO 12/16/16 21:00 01/15/17 20:59 12/25/16 21:12 20 MG Pantoprazole Sodium (Protonix Tab) 40 mg DAILY PO 12/17/16 09:00 01/16/17 08:59 12/26/16 08:02 40 MG Acetaminophen (Tylenol Tab) 650 mg Q4H PRN PO 12/16/16 19:00 01/15/17 18:59 Fluticasone Propionate (Flonase Nasal [place]) 1 sprays DAILY MAGAN 12/18/16 09:00 01/17/17 08:59 12/26/16 08:02 1 SPRAYS Folic Acid (Folvite Tab) 1 mg DAILY PO 12/18/16 09:00 01/17/17 08:59 12/26/16 08:03 1 MG Metoprolol Succinate (Toprol Xl Tab) 12.5 mg DAILY PO 12/18/16 09:00 01/17/17 08:59 12/26/16 08:03 12.5 MG Lactulose (Chronulac Syrup) 15 gm TID PO 12/17/16 14:00 01/16/17 13:59 12/26/16 08:02 15 GM Furosemide 40 mg/ Syringe 4 ml @ 4 mls/min Q8@0200,1000,1800 IV 12/19/16 18:00 01/18/17 17:59 12/25/16 17:49 4 MLS/MIN Metolazone (Zaroxolyn Tab) 5 mg QAM PO 12/21/16 09:00 01/20/17 08:59 12/26/16 08:02 5 MG Potassium Chloride (Klor-Con M10) 40 meq BID PO 12/25/16 09:00 01/24/17 08:59 12/26/16 08:03 40 MEQ Last 24 Hours Test 12/25/16 11:49 12/25/16 16:50 12/25/16 20:26 12/26/16 05:37 Bedside Glucose 262 mg/dl 184 mg/dl 219 mg/dl Hemoglobin 7.6 g/dL Hematocrit 25.0 % Sodium Level 148 mmol/L Potassium Level 3.3 mmol/L Chloride Level 113 mmol/L Carbon Dioxide Level 30 mmol/L Anion Gap 5.0 mmol/L Blood Urea Nitrogen 38 mg/dl Creatinine 2.80 mg/dl Est Creatinine Clear Calc Drug Dose 24.4 ml/min Estimated GFR () 22.6 Estimated GFR (Non- 19.5 BUN/Creatinine Ratio 13.7 Random Glucose 164 mg/dl Calcium Level 8.0 mg/dl Magnesium Level 2.1 mg/dl Assessment & Plan izaiah on ckd stage 4-creatinine tends to vary a lot based on diuretics. creatinine improved from 3.3 to 2.4 and now 2.8. trying to optimize volume status as well as possible. hypokalemia-k now in the low 3s and on 40 po bid of potassium. will need monitored after discharge. would recheck bmp again on monday and monday to follow potassium levels. recommend continuing the metolazone 5mg a day and switching lasix to 80mg po q8 as an outpt while trying to improve the edema in his legs even more if possible.
[2016-12-26 10:10] VITALS: BP 95/60; PULSE 92
--- NOTE | 2016-12-26 10:47 | Progress Note ---
Internal Med Progress Note Date of Service: Dec 26, 2016. Provider Documentation: SUBJECTIVE: States he wanted to be discharged to [facility] if possible Tried to reach daughter Rupinder but could not. Will reattempt later today Denies any chest pain, ABD pain, SOB on IV diuretics OBJECTIVE: Vital Signs-as noted below Physical Exam: General Appearance:Moderately built and nourished, no apparent distress Head: normocephalic, Atraumatic Eyes: normal inspection, EOMI, PERRL Neck: supple, Trachea midline Respiratory/Chest: Normal breath sounds, CTA Cardiovascular: Irregularly irregular, No murmur Abdomen/GI:Soft, Non tender, +distended, Bowel sounds present Extremities/Musculoskelatal:normal inspection, b/l LE edema Neurologic/Psych:grossly no focal neurological deficits Skin: normal color, warm Lab data as noted below. ASSESSMENT & PLAN: Patient is an 86 yr male with history of CKD IV, Paroxysmal A fib, SSS s/p PM, DM, HTN, COPD, Cirrhosis, CARLITA, Myelodysplastic Syndrome, Chronic Thrombocytopenia presenting with hypotension and weakness. MAGEN on CKD IV Secondary to diuretics Cr 2.0 in September Cr 3.3 --> 2.9---> 2.4>>.2.8 Appreciate Nephrology help continue IV diuretics Also on metolazone S/P Albumin Monitor renal function Plan to switch to PO diuretics upon discharge HYPOTENSION Likely secondary to diuretics Stable continue Metoprolol at reduced dose of 12.5mg HYPOKALEMIA: secondary to diuretics monitor Magnesium levels normal Potassium:3.3 today PROTEUS UTI afebrile blood and urine cultures negative (+) Proteus per Urine Culture 12/13/16 possible pneumonia per CXR lactic acid 3.9--> 1.3 Vancomycin discontinued on Zosyn Day 4 >>>>deescalated to Ceftriaxone Day 3/3 to completed total 7 days of antibiotics ASCITES, LIVER CIRRHOSIS BY CT SCAN noted to have liver cirrhosis last September [address] liver US: mild to moderate ascites ammonia 81>>>>18 Lactulose started, mental status at baseline per family on Lasix per Nephro Cirrhosis likely Hepatic Congestion from CHF per GI Echo: No significant change compared to study of 09/02/16. * Normal LV chamber size with mild concentric LVH. * The patient is s/p septal myomectomy. * Echo findings are not consistent with left ventricular outflow obstruction. * Normal LV systolic function with abnormal septal wall motion consistent with conduction abnormality, EF 65-70%. * No segmental left ventricular wall motion abnormalities are noted. * Mild mitral regurgitation. * Moderately dilated ascending aorta. * Mild aortic root dilatation. continue Lactulose ,Lasix, low sodium diet , fluid restriction PAROXYSMAL A FIB SSS, S/P PACEMAKER on Metoprolol, decrease dose to prevent hypotension HR controlled not on anticoag per Cardiology recommendations DM II ISS, accu checks COPD not in exacerbation CARLITA continue CPAP CHRONIC THROMBOCYTOPENIA MYELODYSPLASTIC SYNDROME Hg and Plt stable CODE STATUS DNR per son DVT prophylaxis SCDs contraindicated as patient has edema Anticoag contraindicated as patient as Plt < 100 ambulate DISPOSITION Accepted at [facility], will plan to discharge when stable Discussed with patient's daughter: prefers to continue medical management and defer hospice referral for now Will try to discuss again Vital Signs: Date Time Temp Pulse Resp B/P (MAP) Pulse Ox O2 Delivery O2 Flow Rate FiO2 12/26/16 10:10 92 95/60 (72) 12/26/16 08:45 Room Air 12/26/16 07:28 36.7 60 20 100/61 (74) 97 12/26/16 05:09 36.7 91 20 103/69 (80) 98 CPAP 4.0 12/26/16 04:00 CPAP 2.0 12/26/16 02:15 76 83/60 (68) 90/60 (70) 12/26/16 00:00 CPAP 2.0 12/25/16 23:50 36.8 83 18 107/62 (77) 96 CPAP 12/25/16 20:15 36.7 91 20 114/74 (87) 95 Room Air 12/25/16 20:00 Room Air 12/25/16 16:00 Room Air 12/25/16 12:00 Room Air 12/25/16 11:41 36.6 67 20 106/61 (76) 94 Room Air Lab Results: Results Past 24 Hours Test 12/25/16 11:49 12/25/16 16:50 12/25/16 20:26 12/26/16 05:37 Range/Units Bedside Glucose 262 184 219 70-99 mg/dl Hemoglobin 7.6 14.0-18.0 g/dL Hematocrit 25.0 42-52 % Sodium Level 148 136-145 mmol/L Potassium Level 3.3 3.5-5.1 mmol/L Chloride Level 113 98-107 mmol/L Carbon Dioxide Level 30 21-32 mmol/L Anion Gap 5.0 3-11 mmol/L Blood Urea Nitrogen 38 7-18 mg/dl Creatinine 2.80 0.60-1.40 mg/dl Est Creatinine Clear Calc Drug Dose 24.4 ml/min Estimated GFR () 22.6 Estimated GFR (Non- 19.5 BUN/Creatinine Ratio 13.7 10-20 Random Glucose 164 70-99 mg/dl Calcium Level 8.0 8.5-10.1 mg/dl Magnesium Level 2.1 1.8-2.4 mg/dl Test 12/26/16 07:50 Range/Units Bedside Glucose 159 70-99 mg/dl
[2016-12-26 11:18] VITALS: BP_SYST 92; BP_SYST 94; BP_DIAS 56; BP_DIAS 58; PULSE 69; TEMP 36.8; O2SAT 95
[2016-12-26 20:04] VITALS: BP 94/51; PULSE 79; TEMP 36.6; O2SAT 97
[2016-12-26] MEDS: FAMOTIDINE 20 MG TAB PO SCH (20:39)
[2016-12-27] VITALS (11 sets, daily range): BP systolic 91–136; BP diastolic 57–80; PULSE 62–109; TEMP 36.3–36.8; O2SAT 94–98
[2016-12-27] MEDS: FUROSEMIDE INJ 40 MG in SYRINGE 0 ML IV SCH ×3 (03:11→18:01)
[2016-12-27] MEDS: METOPROLOL SUCC 25MG EXT REL TAB PO SCH (08:02)
[2016-12-27] MEDS: PANTOprazole SOD 40 MG TAB PO SCH (08:02)
[2016-12-27] MEDS: LACTULOSE SYRUP 10 GM/15 ML BTL 473 ML PO SCH ×3 (08:03→20:25)
[2016-12-27] MEDS: POTASSIUM CHLORIDE 10 MEQ TABCR PO SCH ×2 (08:03→20:26)
[2016-12-27] MEDS: FLUTICASONE PROPIONATE NA SPR 16 GM BTL NAE SCH (08:03)
[2016-12-27] MEDS: INSULIN ASPART 100 UNITS/ML 3 ML PEN SC SCH ×4 (08:45→20:30)
[2016-12-27] MEDS: METOLAZONE 5 MG TAB PO SCH (08:45)
--- NOTE | 2016-12-27 13:06 | Progress Note ---
Internal Med Progress Note Date of Service: Dec 27, 2016. Provider Documentation: SUBJECTIVE: Clinically no significant change Denies any chest pain, ABD pain, SOB on IV diuretics Still has significant LE edema OBJECTIVE: Vital Signs-as noted below Physical Exam: General Appearance:Moderately built and nourished, no apparent distress Head: normocephalic, Atraumatic Eyes: normal inspection, EOMI, PERRL Neck: supple, Trachea midline Respiratory/Chest: Normal breath sounds, CTA Cardiovascular: Irregularly irregular, No murmur Abdomen/GI:Soft, Non tender, +distended, Bowel sounds present Extremities/Musculoskelatal:normal inspection, b/l LE edema Neurologic/Psych:grossly no focal neurological deficits Skin: normal color, warm Lab data as noted below. ASSESSMENT & PLAN: Patient is an 86 yr male with history of CKD IV, Paroxysmal A fib, SSS s/p PM, DM, HTN, COPD, Cirrhosis, CARLITA, Myelodysplastic Syndrome, Chronic Thrombocytopenia presenting with hypotension and weakness. MAGEN on CKD IV Secondary to diuretics Cr 2.0 in September Cr 3.3 --> 2.9---> 2.4>>.2.8 Appreciate Nephrology help continue IV diuretics Also on metolazone S/P Albumin Monitor renal function Plan to switch to PO diuretics upon discharge HYPOTENSION Likely secondary to diuretics Stable continue Metoprolol at reduced dose of 12.5mg HYPOKALEMIA: secondary to diuretics monitor electrolytes Magnesium levels normal PROTEUS UTI afebrile blood and urine cultures negative (+) Proteus per Urine Culture 12/13/16 possible pneumonia per CXR lactic acid 3.9--> 1.3 Vancomycin discontinued on Zosyn Day 4 >>>>deescalated to Ceftriaxone Day 3/ to completed total 7 days of antibiotics ASCITES, LIVER CIRRHOSIS BY CT SCAN noted to have liver cirrhosis last September [address] liver US: mild to moderate ascites ammonia 81>>>>18 Lactulose started, mental status at baseline per family on Lasix per Nephro Cirrhosis likely Hepatic Congestion from CHF per GI Echo: No significant change compared to study of 09/02/16. * Normal LV chamber size with mild concentric LVH. * The patient is s/p septal myomectomy. * Echo findings are not consistent with left ventricular outflow obstruction. * Normal LV systolic function with abnormal septal wall motion consistent with conduction abnormality, EF 65-70%. * No segmental left ventricular wall motion abnormalities are noted. * Mild mitral regurgitation. * Moderately dilated ascending aorta. * Mild aortic root dilatation. continue Lactulose ,Lasix, low sodium diet , fluid restriction PAROXYSMAL A FIB SSS, S/P PACEMAKER on Metoprolol, decrease dose to prevent hypotension HR controlled not on anticoag per Cardiology recommendations DM II ISS, Lantus accu checks COPD not in exacerbation CARLITA continue CPAP CHRONIC THROMBOCYTOPENIA MYELODYSPLASTIC SYNDROME Hg and Plt stable CODE STATUS DNR per son DVT prophylaxis SCDs contraindicated as patient has edema Anticoag contraindicated as patient as Plt < 100 ambulate DISPOSITION Accepted at [facility] but may not be a candidate for acute rehab Social service consulted. Plan to discharge to SNF when medically stable Discussed with patient's daughter: prefers to continue medical management and defer hospice referral for now Vital Signs: Date Time Temp Pulse Resp B/P (MAP) Pulse Ox O2 Delivery O2 Flow Rate FiO2 12/27/16 12:00 94 Room Air 12/27/16 11:40 36.5 62 16 99/59 (72) 94 12/27/16 10:30 36.6 74 18 103/67 (79) 95 Room Air 12/27/16 08:00 98 Room Air 12/27/16 07:45 36.8 72 19 97/61 (73) 98 12/27/16 05:09 CPAP 12/27/16 04:24 36.6 91 20 136/80 (98) 94 CPAP 4.0 12/27/16 03:30 Room Air 12/27/16 00:30 36.5 103 20 103/65 (78) 98 CPAP 4.0 12/26/16 21:24 Room Air 12/26/16 20:04 36.6 79 20 94/51 (65) 97 Room Air 12/26/16 16:00 Room Air Lab Results: Results Past 24 Hours Test 12/26/16 16:30 12/26/16 20:36 12/27/16 07:34 12/27/16 11:40 Range/Units Bedside Glucose 247 192 173 206 70-99 mg/dl
[2016-12-27] MEDS: FAMOTIDINE 20 MG TAB PO SCH (20:26)
[2016-12-27] MEDS ORDERED: INSULIN GLARGINE SOLOSTAR 100 UNITS/ML 3 ML PEN SC SCH (21:00)
[2016-12-28] VITALS (7 sets, daily range): BP systolic 84–109; BP diastolic 47–62; PULSE 66–100; TEMP 36.7–37; O2SAT 98
[2016-12-28] MEDS: FUROSEMIDE INJ 40 MG in SYRINGE 0 ML IV SCH ×2 (01:50→10:00)
[2016-12-28 06:34] LABS: MEAN CELL VOLUME 86.5 fL (80-100); MEAN CORPUSCULAR HEMOGLOBIN 26.6 pg (25-34); MEAN CORPUSCULAR HGB CONC 30.8 g/dl (32-36); RED BLOOD COUNT 2.89 M/uL (4.7-6.1); WHITE BLOOD COUNT 2.98 K/uL (4.8-10.8)
[2016-12-28 06:37] LABS: MEAN PLATELET VOLUME 9.6 fL (7.4-10.4); PLATELET COUNT 56 K/uL (130-400)
[2016-12-28 07:17] LABS: ANISOCYTOSIS PRESENT; BASO % 0.7 %; BASO ABS # 0.02 K/uL (0-0.2); COMPLETE YES; EOS % 3.4 %; GIANT PLATELETS 1+; IG% 0.3 %; LYMPH % 10.1 %; MONO % 12.4 %; NEUT % 73.1 %; OVALOCYTES 1+
[2016-12-28 07:25] LABS: BUN/CREATININE RATIO 15.4 (10-20); CALCIUM 8.2 mg/dl (8.5-10.1); CREATININE 2.9 mg/dl (0.60-1.40); MAGNESIUM 2.1 mg/dl (1.8-2.4); POTASSIUM 3.6 mmol/L (3.5-5.1)
[2016-12-28] MEDS: FLUTICASONE PROPIONATE NA SPR 16 GM BTL NAE SCH (07:44)
[2016-12-28] MEDS: LACTULOSE SYRUP 10 GM/15 ML BTL 473 ML PO SCH ×2 (07:44→13:16)
[2016-12-28] MEDS: PANTOprazole SOD 40 MG TAB PO SCH (07:45)
[2016-12-28] MEDS: POTASSIUM CHLORIDE 10 MEQ TABCR PO SCH (07:45)
[2016-12-28] MEDS: METOLAZONE 5 MG TAB PO SCH (07:47)
[2016-12-28] MEDS: METOPROLOL SUCC 25MG EXT REL TAB PO SCH (09:00)
[2016-12-28] MEDS: INSULIN ASPART 100 UNITS/ML 3 ML PEN SC SCH ×2 (09:05→13:15)
--- NOTE | 2016-12-28 11:42 | Progress Note ---
Medicine Progress Note Date & Time of Visit: Dec 28, 2016 at 11:42 . Subjective Up in chair. Denies any complaints. No fever. No chest pain. No cough or SOB. No nausea, vomiting, constipation. Voiding without difficulty. No lightheadedness. . Objective Last 8 Hrs Date Time Temp Pulse Resp B/P (MAP) Pulse Ox O2 Delivery O2 Flow Rate FiO2 12/28/16 11:07 36.7 82 18 91/53 (66) 98 Room Air 109/57 (74) 12/28/16 10:05 73 92/58 (69) 91/49 (63) 12/28/16 08:54 66 84/47 (59) 90/53 (65) 12/28/16 08:00 Room Air 12/28/16 07:17 37.0 100 20 98/62 (74) 98 4.0 12/28/16 05:03 36.7 74 20 96/56 (69) 98 4.0 12/28/16 04:02 Room Air Physical Exam: General- no distress Eyes- anicteric Neck- no JVD Lungs- clear Heart- RRR, II/ sys murmur LSB, no gallop appreciated Abdomen- + BS, distended, soft, nontender Extremities- 2-3+ pretibial edema Neuro- alert, mild confusion . Laboratory Results: Last 24 Hours Test 12/27/16 16:21 12/27/16 20:06 12/28/16 05:56 12/28/16 07:32 Bedside Glucose 183 mg/dl 243 mg/dl 140 mg/dl White Blood Count 2.98 K/uL Red Blood Count 2.89 M/uL Hemoglobin 7.7 g/dL Hematocrit 25.0 % Mean Corpuscular Volume 86.5 fL Mean Corpuscular Hemoglobin 26.6 pg Mean Corpuscular Hemoglobin Concent 30.8 g/dl Platelet Count 56 K/uL Mean Platelet Volume 9.6 fL Neutrophils (%) (Auto) 73.1 % Lymphocytes (%) (Auto) 10.1 % Monocytes (%) (Auto) 12.4 % Eosinophils (%) (Auto) 3.4 % Basophils (%) (Auto) 0.7 % Neutrophils # (Auto) 2.18 K/uL Lymphocytes # (Auto) 0.30 K/uL Monocytes # (Auto) 0.37 K/uL Eosinophils # (Auto) 0.10 K/uL Basophils # (Auto) 0.02 K/uL RDW Standard Deviation 54.8 fL RDW Coefficient of Variation 17.2 % Immature Granulocyte % (Auto) 0.3 % Immature Granulocyte # (Auto) 0.01 K/uL Giant Platelets 1+ Anisocytosis PRESENT Ovalocytes 1+ Sodium Level 148 mmol/L Potassium Level 3.6 mmol/L Chloride Level 112 mmol/L Carbon Dioxide Level 32 mmol/L Anion Gap 4.0 mmol/L Blood Urea Nitrogen 45 mg/dl Creatinine 2.90 mg/dl Est Creatinine Clear Calc Drug Dose 23.6 ml/min Estimated GFR () 21.7 Estimated GFR (Non- 18.7 BUN/Creatinine Ratio 15.4 Random Glucose 124 mg/dl Calcium Level 8.2 mg/dl Magnesium Level 2.1 mg/dl Assessment & Plan ACUTE KIDNEY INJURY / CKD IV Serum creatinine 3.3 day of admission, compared to baseline of 2.0. Nephrology consulted. Continued aggressive diuretic therapy deemed necessary due to fluid overload / ascites. Serum creatinine 2.9 day of discharge. Follow. HYPOTENSION Systolic BP as low as 96 day of admission. Serum lactate elevated. Evaluated and treated for possible sepsis, but unlikely with negative blood cultures and normal calcitonin. Echo showed normal LVEF. Hypotension attributed to diuretic therapy. On metoprolol for PAF- dose decreased to 12.5 mg daily. BP's fluctuated throughout hospital stay, sometimes with systolic BP's in 80's and 90's. Systolic BP's day of discharge 84-109, but patient was asymptomatic. Fludrocortisone contraindicated in light of fluid overload / ascites. Midodrine contraindicated in light of MAGEN / CKD. Follow. HYPOKALEMIA Serum K as low as 2.8 despite CKD. Hypokalemia secondary to diuretic therapy. K-liberal diet. Continue replacement. Monitor closely. UTI Outpatient urine culture 12/15 grew Proteus mirabilis. Treated with piperacillin / tazobactam per sensitivities. HISTORY SINOATRIAL DISEASE / PAROXYSMAL ATRIAL FIB S/P pacemaker. Continue metoprolol- dose reduced due to hypotension. COPD / SLEEP APNEA Respiratory status stable. Continue CPAP (pt has home unit) and O2 (4 LPM) at night. CIRRHOSIS / ASCITES Seen in consultation by GI. Cirrhosis attributed to passive liver congestion from CHF. Continue diuretics, lactulose, low Na diet. DM TYPE II Well-controlled. Hgb A1C 6.2 10/17/16. Tight control not indicated given advanced age and comorbidities. Random blood sugars as high as mid-200's. Continue Lantus + NovoLog with liberal blood sugar goals. MYELODYSPLASTIC SYNDROME Hgb 7.7 - 8.5. Anemia probably due to combination of MDS + CKD. No transfusion at this time per current guidelines. WBC 2980 - 4520. Plts 56K - 77K. Follow. SKIN CARE Followed by Wound Care Nursing. Right roblero wound- Aquacel AG + Optifoam, change q 3 days + PRN. Right wrist skin tear- Optifoam q 3 days + PRN. Left arm skin tear- Xeroform, cover sponge, Conform changed daily + PRN. Buttocks / perineum- stoma powder + Sensicare after each soiling. VTE PROPHYLAXIS Chemoprophylaxis contraindicated in light of thrombocytopenia. Mechanical prophylaxis contraindicated in light of lower extremity skin lesion. DISPOSITION Arrangements being made for transfer to [facility] for skilled care. Prognosis is poor given advanced age and multiple comorbidities. Long-term disposition to be determined. Currently resident at [facility]; may need higher level of care after completion of skilled care. Palliative care / hospice discussed with daughter. She prefers not to pursue at this time. Family Medicine follow-up with Dr. Garza. Nephrology follow-up with Dr. Chong. Daughter given update by phone. . Consultants: GI Nephrology . Procedures: cardiac monitoring IV meds echocardiogram US abdomen PT OT . Current Inpatient Medications: Current Inpatient Medications Medications (Trade) Dose Ordered Sig/Gin Route Start Time Stop Time Status Last Admin Dose Admin Insulin Aspart (novoLOG ASPART) SLIDING SCALE If C... ACHS SC 12/16/16 21:00 01/15/17 20:59 12/28/16 09:05 3 UNITS Glucose (Glucose 40% Gel) 15-30 GRAMS 15 GRAMS... UD PRN PO 12/16/16 19:00 01/15/17 18:59 Glucose (Glucose Chew Tab) 4-8 Tablets 4 Tabl... UD PRN PO 12/16/16 19:00 01/15/17 18:59 Dextrose (Dextrose 50% 50ML Syringe) 25-50ML OF 50% DW IV FOR... UD PRN IV 12/16/16 19:00 01/15/17 18:59 Glucagon (Glucagon Inj) 1 mg UD PRN SQ 12/16/16 19:00 01/15/17 18:59 Famotidine (Pepcid Tab) 20 mg QPM PO 12/16/16 21:00 01/15/17 20:59 12/27/16 20:26 20 MG Pantoprazole Sodium (Protonix Tab) 40 mg DAILY PO 12/17/16 09:00 01/16/17 08:59 12/28/16 07:45 40 MG Acetaminophen (Tylenol Tab) 650 mg Q4H PRN PO 12/16/16 19:00 01/15/17 18:59 Fluticasone Propionate (Flonase Nasal [place]) 1 sprays DAILY MAGAN 12/18/16 09:00 01/17/17 08:59 12/28/16 07:44 1 SPRAYS Folic Acid (Folvite Tab) 1 mg DAILY PO 12/18/16 09:00 01/17/17 08:59 12/28/16 07:45 1 MG Metoprolol Succinate (Toprol Xl Tab) 12.5 mg DAILY PO 12/18/16 09:00 01/17/17 08:59 12/26/16 08:03 12.5 MG Lactulose (Chronulac Syrup) 15 gm TID PO 12/17/16 14:00 01/16/17 13:59 12/28/16 07:44 15 GM Furosemide 40 mg/ Syringe 4 ml @ 4 mls/min Q8@0200,1000,1800 IV 12/19/16 18:00 01/18/17 17:59 12/27/16 18:01 4 MLS/MIN Metolazone (Zaroxolyn Tab) 5 mg QAM PO 12/21/16 09:00 01/20/17 08:59 12/28/16 07:47 5 MG Potassium Chloride (Klor-Con M10) 40 meq BID PO 12/25/16 09:00 01/24/17 08:59 12/28/16 07:45 40 MEQ Insulin Glargine (Lantus Solostar Pen) 10 units HS SC 12/27/16 21:00 01/26/17 20:59 12/27/16 20:31 10 UNITS
[2016-12-28] MEDS ORDERED: NVLGIPEN SC (13:03)
[2016-12-28] MEDS ORDERED: POTA10CA28 PO (13:03)
[2016-12-28] MEDS ORDERED: TPRSR25 PO ×2 (13:03→13:12)
[2016-12-28] MEDS ORDERED: ZRX5 PO (13:03)
[2016-12-28] MEDS ORDERED: INSDGIPEN SC (13:03)
[2016-12-28] MEDS ORDERED: LSX80 PO (13:03)
[2016-12-28] MEDS ORDERED: LCTS240 PO (13:03)
--- NOTE | 2016-12-28 13:10 | Discharge Instructions ---
Discharge Instructions Date of Service Dec 28, 2016. Admission Reason for Admission: Hypotension Discharge Discharge Diagnosis / Problem: hypotension, acute kidney injury, CKD IV, cirrhosis with ascites, MDS Discharge Goals Goal(s): Decrease discomfort, Improve function, Improve disease control Activity Recommendations Activity Level: Assistance Required Therapies: Physical Therapy, Occupational Therapy . Additional Information Patient informed of condition: Yes Advance Directives: Yes DNR: Yes Level of Care: Skilled Communicable Disease: No Prognosis: Stable Domingo Catheter: No Instructions / Follow-Up Instructions / Follow-Up Thank you for receiving this patient in transfer. Please call if you have any questions. David Burleson . Current Hospital Diet Patient's current hospital diet: Renal Diet, Diabetes Type 2 Diet Discharge Diet Recommended Diet: AHA Diet (Heart Healthy), Low Sodium Diet (2gm Na), Diabetes Type 2 Diet Fluid Restriction: 1500 ml (6 cups) Pending Studies Studies pending at discharge: no Physician Orders On Transfer Special Precautions: Fall precautions. Skin precautions. . Dressing Changes: SKIN CARE Followed by Wound Care Nursing. Right roblero wound- Aquacel AG + Optifoam, change q 3 days + PRN. Right wrist skin tear- Optifoam q 3 days + PRN. Left arm skin tear- Xeroform, cover sponge, Conform changed daily + PRN. Buttocks / perineum- stoma powder + Sensicare after each soiling. . Vital Signs: Daily . Weigh: Daily . Additional Orders: SLEEP APNEA MANAGEMENT CPAP at night home unit with previous settings with O2 4 LPM DIABETES MANAGEMENT BSG's ACHS NovoLog Sliding Scale: Blood Sugar NovoLog SQ < 151 none 151-200 2 units 201-250 4 units 251-300 6 units > 300 8 units LABS Please check basic metabolic profile twice a week until stable, then as clinically indicated. Please check CBC monthly or as clinically indicated. PACEMAKER Pacemaker checks with [facility] as scheduled. . Laboratory Results Hemoglobin A1c Test 10/17/16 05:09 Range/Units Estimated Average Glucose 131 mg/dl Hemoglobin A1c 6.2 H 4.5-5.6 % Medical Emergencies . Who to Call and When: Medical Emergencies: If at any time you feel your situation is an emergency, please call 911 immediately. . Non-Emergent Contact Non-Emergency issues call your: Primary Care Provider, Hospital Doctor, Mobility Engineer . . "Provider Documentation" section prepared by David Burleson. . Core Measure Problem Core Measures: None
--- NOTE | 2016-12-28 13:13 | Discharge Summary ---
Discharge Summary Date of Service Dec 28, 2016. Discharge Summary Admission Date: Dec 16, 2016 at 16:51 Discharge Date: Dec 28, 2016 Principal Diagnosis: hypotension acute kidney injury cirrhosis with ascites UTI- Proteus mirabilis . 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 (5) Dyslipidemia Status: Chronic (6) History of ankle fracture Status: Chronic (7) History of bladder cancer Status: Chronic (8) Hypertrophic cardiomyopathy Status: Chronic (9) Myelodysplastic syndrome Status: Chronic (10) Paroxysmal atrial fibrillation Status: Chronic (11) Sinoatrial node dysfunction Status: Chronic (12) Sleep apnea, obstructive Permanent Comment: CPAP Status: Chronic (13) Thrombocytopenia Status: Chronic Surgical Problems: (1) Status post cardiac pacemaker procedure Status: Chronic (2) Status post myomectomy Permanent Comment: for hypertrophic cardiomyopathy Status: Chronic . Procedures: cardiac monitoring IV meds echocardiogram US abdomen PT OT . Consultations: GI Nephrology . Medication Reconciliation New Medications: Furosemide (Furosemide) 80 Mg Tab 80 MG PO TID for 30 Days New prescription. Will need Rx when discharged from your facility. Insulin Aspart (Novolog Flexpen) 100 Units/Ml Inj 0 UNITS SC ACHS for 30 Days Sliding scale: Blood Sugar NovoLog SQ < 151 none 151-200 2 units 201-250 4 units 251-300 6 units > 300 8 units New prescription. Will need new Rx when discharged from your facility. Insulin Glargine (Lantus Solostar) 100 Unit/Ml Inj 10 UNITS SC HS for 30 Days New instructions. Will need new Rx when discharged from your facility. Lactulose (Chronulac) 10 Gm/15 Ml Syrp 15 GM PO TID for 30 Days New prescription. Will need new Rx when discharged from your facility. Metolazone (Metolazone) 5 Mg Tab 5 MG PO QAM for 30 Days, #30 TAB New prescription. Will need new Rx when discharged from your facility. Metoprolol Succinate (Metoprolol Succinate ER) 25 Mg Tabcr 12.5 MG PO DAILY for 30 Days Hold sys BP < 90. New dose. Will need new Rx when discharged from your facility. Potassium Chloride (Micro-K Ext Rel) 10 Meq Capcr 40 MEQ PO BID for 30 Days New prescription. Will need new Rx when discharged from your facility. Continued Medications: Acetaminophen Tab (Tylenol) 325 Mg Tab 650 MG PO Q4 PRN for Fever, TAB NOT TO EXCEED 3000MG APAP/24HR Famotidine (Pepcid) 20 Mg Tab 20 MG PO QPM, TAB Fluticasone Propionate (Nasal) (Flonase Allergy Relief) 50 Mcg/Act Spr 2 SPRAY MAGAN DAILY Folic Acid (Folic Acid) 1 Mg Tab 1 MG PO DAILY Nitroglycerin (Nitrostat) 0.4 Mg Tab 0.4 MG UT PRN, BTL Pantoprazole (Protonix) 40 Mg Tab 40 MG PO DAILY, #30 TAB Discontinued Medications: Furosemide (Lasix) 40 Mg Tab 20 MG PO BID, TAB Insulin Glargine (Lantus) 100 Unit/Ml Inj 24 UNITS SC HS for 30 Days, #1 VIAL Metoprolol Succ (Toprol Xl) (Toprol-Xl) 25 Mg Tabcr 25 MG PO DAILY, #30 TAB Admission Information HPI (per Admitting provider): 86 year old male with history of CKD 4, Paroxysmal A fib, SSS s/p PM, DM, HTN, COPD, Cirrhosis, CARLITA, Myelodysplastic Syndrome, Chronic Thrombocytopenia presenting with hypotension and weakness. Patient follows with Dr. Chong for Nephrology and Dr. Garza for PCP. Patient was admitted to [facility] last September 2016 for Strep Bacteremia and eventually discharged to SNF. As per family, patient was noted to have gradually declined- became weaker since then. Patient reports being weak, lightheaded for the past few weeks. He was also noted to have low blood pressure readings as well. Today, patient was brought in to the ER due to low BP readings. At the ER, patient was given IV fluids bolus of 1 L and was started on Vanco + Cefepime. Lactic acid elevated at 3, Crea 3.2. . Patient denies headache, abdominal pain, dysuria. He has occasional cough with yellow sputum and occasional diarrhea. Physical Exam (per Admitting): General Appearance: WD/WN, no apparent distress, + pertinent finding ( appears somewhat weak) Head: normocephalic, atraumatic Eyes: normal inspection, PERRL, EOMI ENT: normal ENT inspection, hearing grossly normal, pharynx normal Neck: supple, no adenopathy, thyroid normal, no JVD, trachea midline Respiratory/Chest: chest non-tender, lungs clear, normal breath sounds, no respiratory distress, no accessory muscle use Cardiovascular: regular rate, rhythm, no JVD, no murmur Abdomen/GI: normal bowel sounds, non tender, soft, + pertinent finding ( mild abdominal distention) Back: normal inspection, no CVA tenderness Extremities/Musculoskelatal: no calf tenderness, + pertinent finding (grade 1 lower leg edema, no erythema/warmth/tenderness) Neurologic/Psych: fire lookout II-XII nml as tested, no motor/sensory deficits, alert , normal mood/affect, oriented x 3 Skin: normal color, warm/dry, no rash Lymphatic: no adenopathy Hospital Course ACUTE KIDNEY INJURY / CKD IV Serum creatinine 3.3 day of admission, compared to baseline of 2.0. Nephrology consulted. Continued aggressive diuretic therapy deemed necessary due to fluid overload / ascites. Serum creatinine 2.9 day of discharge. Follow. HYPOTENSION Systolic BP as low as 96 day of admission. Serum lactate elevated. Evaluated and treated for possible sepsis, but unlikely with negative blood cultures and normal calcitonin. Echo showed normal LVEF. Hypotension attributed to diuretic therapy. On metoprolol for PAF- dose decreased to 12.5 mg daily. BP's fluctuated throughout hospital stay, sometimes with systolic BP's in 80's and 90's. Systolic BP's day of discharge 84-109, but patient was asymptomatic. Fludrocortisone contraindicated in light of fluid overload / ascites. Midodrine contraindicated in light of MAGEN / CKD. Follow. HYPOKALEMIA Serum K as low as 2.8 despite CKD. Hypokalemia secondary to diuretic therapy. K-liberal diet. Continue replacement. Monitor closely. UTI Outpatient urine culture 12/15 grew Proteus mirabilis. Treated with piperacillin / tazobactam per sensitivities. HISTORY SINOATRIAL DISEASE / PAROXYSMAL ATRIAL FIB S/P pacemaker. Continue metoprolol- dose reduced due to hypotension. COPD / SLEEP APNEA Respiratory status stable. Continue CPAP (pt has home unit) and O2 (4 LPM) at night. CIRRHOSIS / ASCITES Seen in consultation by GI. Cirrhosis attributed to passive liver congestion from CHF. Continue diuretics, lactulose, low Na diet. DM TYPE II Well-controlled. Hgb A1C 6.2 10/17/16. Tight control not indicated given advanced age and comorbidities. Random blood sugars as high as mid-200's. Continue Lantus + NovoLog with liberal blood sugar goals. MYELODYSPLASTIC SYNDROME Hgb 7.7 - 8.5. Anemia probably due to combination of MDS + CKD. No transfusion at this time per current guidelines. WBC 2980 - 4520. Plts 56K - 77K. Follow. SKIN CARE Followed by Wound Care Nursing. Right roblero wound- Aquacel AG + Optifoam, change q 3 days + PRN. Right wrist skin tear- Optifoam q 3 days + PRN. Left arm skin tear- Xeroform, cover sponge, Conform changed daily + PRN. Buttocks / perineum- stoma powder + Sensicare after each soiling. VTE PROPHYLAXIS Chemoprophylaxis contraindicated in light of thrombocytopenia. Mechanical prophylaxis contraindicated in light of lower extremity skin lesion. DISPOSITION Arrangements being made for transfer to [facility] for skilled care. Prognosis is poor given advanced age and multiple comorbidities. Long-term disposition to be determined. Currently resident at [facility]; may need higher level of care after completion of skilled care. Palliative care / hospice discussed with daughter. She prefers not to pursue at this time. Family Medicine follow-up with Dr. Garza. Nephrology follow-up with Dr. Chong. Daughter given update by phone. . Total time spent on discharge = 60 minutes. This includes examination of the patient, discharge planning, medication reconciliation, and communication with other providers. . Discharge Instructions Date of Service Dec 28, 2016. Admission Reason for Admission: Hypotension Discharge Discharge Diagnosis / Problem: hypotension, acute kidney injury, CKD IV, cirrhosis with ascites, MDS Discharge Goals Goal(s): Decrease discomfort, Improve function, Improve disease control Activity Recommendations Activity Level: Assistance Required Therapies: Physical Therapy, Occupational Therapy . Additional Information Patient informed of condition: Yes Advance Directives: Yes DNR: Yes Level of Care: Skilled Communicable Disease: No Prognosis: Stable Domingo Catheter: No Instructions / Follow-Up Instructions / Follow-Up Thank you for receiving this patient in transfer. Please call if you have any questions. David Burleson . Current Hospital Diet Patient's current hospital diet: Renal Diet, Diabetes Type 2 Diet Discharge Diet Recommended Diet: AHA Diet (Heart Healthy), Low Sodium Diet (2gm Na), Diabetes Type 2 Diet Fluid Restriction: 1500 ml (6 cups) Pending Studies Studies pending at discharge: no Physician Orders On Transfer Special Precautions: Fall precautions. Skin precautions. . Dressing Changes: SKIN CARE Followed by Wound Care Nursing. Right roblero wound- Aquacel AG + Optifoam, change q 3 days + PRN. Right wrist skin tear- Optifoam q 3 days + PRN. Left arm skin tear- Xeroform, cover sponge, Conform changed daily + PRN. Buttocks / perineum- stoma powder + Sensicare after each soiling. . Vital Signs: Daily . Weigh: Daily . Additional Orders: SLEEP APNEA MANAGEMENT CPAP at night home unit with previous settings with O2 4 LPM DIABETES MANAGEMENT BSG's ACHS NovoLog Sliding Scale: Blood Sugar NovoLog SQ < 151 none 151-200 2 units 201-250 4 units 251-300 6 units > 300 8 units LABS Please check basic metabolic profile twice a week until stable, then as clinically indicated. Please check CBC monthly or as clinically indicated. PACEMAKER Pacemaker checks with [facility] as scheduled. . Laboratory Results Hemoglobin A1c Test 10/17/16 05:09 Range/Units Estimated Average Glucose 131 mg/dl Hemoglobin A1c 6.2 H 4.5-5.6 % Medical Emergencies . Who to Call and When: Medical Emergencies: If at any time you feel your situation is an emergency, please call 911 immediately. . Non-Emergent Contact Non-Emergency issues call your: Primary Care Provider, Hospital Doctor, Health Administrator . . "Provider Documentation" section prepared by David Burleson. . Additional Copies To Alona Chong MD; Anastacio Garza M.D.
== END 2016-12-28 14:50 | DRG 640 ==
LOC: EDBD 14:45 → C.EDA 14:47 → C.MED 16:51 → ENRESERV 17:46
PROVIDERS: ADMIT Internal Medicine; ATTEND Hospitalist
DX: E86.9 Volume depletion, unspecified (principal); G93.41 Metabolic encephalopathy; K72.00 Acute and subacute hepatic failure without coma; N17.9 Acute kidney failure, unspecified; R18.8 Other ascites; N18.4 Chronic kidney disease, stage 4 (severe); N39.0 Urinary tract infection, site not specified; I13.0 Hypertensive heart and chronic kidney disease with heart failure and stage 1 through stage 4 chronic kidney disease, or unspecified chronic kidney disease; I95.2 Hypotension due to drugs; T50.2X5A Adverse effect of carbonic-anhydrase inhibitors, benzothiadiazides and other diuretics, initial encounter; B96.4 Proteus (mirabilis) (morganii) as the cause of diseases classified elsewhere; E87.6 Hypokalemia; K76.1 Chronic passive congestion of liver; D46.9 Myelodysplastic syndrome, unspecified; D63.1 Anemia in chronic kidney disease; D63.0 Anemia in neoplastic disease; D69.59 Other secondary thrombocytopenia; I50.9 Heart failure, unspecified; E11.9 Type 2 diabetes mellitus without complications; I48.0 Paroxysmal atrial fibrillation; J44.9 Chronic obstructive pulmonary disease, unspecified; G47.33 Obstructive sleep apnea (adult) (pediatric); K21.9 Gastro-esophageal reflux disease without esophagitis; I25.5 Ischemic cardiomyopathy; F32.9 Major depressive disorder, single episode, unspecified; Z79.899 Other long term (current) drug therapy; Z79.4 Long term (current) use of insulin; Z66 Do not resuscitate; Z91.81 History of falling; Z95.0 Presence of cardiac pacemaker; Z85.51 Personal history of malignant neoplasm of bladder

== ENCOUNTER 2017-02-06 19:01 | Inpatient (IN) | payer OTHER ==
[~2017-02-06] VITALS: Ht 182.9 cm; Wt 104.0 kg
[~2017-02-06 19:01] MED LIST changes: -ATOR-54 PO; -INSDGI SC; +INSDGIPEN SC; +LCTS240 PO; -LSX40 PO; +LSX80 PO; +NVLGIPEN SC; +POTA10CA28 PO; -POTA20TA16 PO; -REPA1TAB5 PO; -SITA50TA PO; +ZRX5 PO
--- NOTE | 2017-02-06 19:13 | EMERGENCY ROOM VISIT NOTE ---
History Report prepared by Marthaibjuan pablo: Janee Aburto Under the Supervision of: Dr. Ismael Salcedo D.O. First contact with patient: 19:03 Chief Complaint: ABDOMINAL PAIN Stated Complaint: ABD PAIN/DESTENDED / [place] History of Present Illness The patient is a 87 year old male who presents to the Emergency Room with complaints of abdominal swelling beginning this morning. The patient states that he was recently seen in the ED for swelling in his legs. Pt notes that he has some shortness of breath but denies any headache, change in vision, fevers, chest pain, nausea, vomiting, pain with urination, and melena. The patient notes he had an episode of diarrhea this morning. He has a history of liver and kidney failure. Family notes he has been throwing over fluids. His gained more than 10 pounds over the past week. shelter noted that he was short of breath but the patient does decline this. Source of History: patient Onset: this morning Position: abdomen Timing: constant Associated Symptoms: + SOB, No headache, No chest pain, No nausea, No vomiting, No diarrhea, No urinary symptoms Review of Systems See HPI for pertinent positives & negatives. A total of 10 systems reviewed and were otherwise negative. 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), type 2 with renal complications (6) Dyslipidemia (7) History of ankle fracture (8) History of bladder cancer (9) Hypertrophic cardiomyopathy (10) Myelodysplastic syndrome (11) Paroxysmal atrial fibrillation (12) Sinoatrial node dysfunction (13) Sleep apnea, obstructive (14) Thrombocytopenia Surgical Problems: (1) Status post cardiac pacemaker procedure (2) Status post myomectomy Family History FHx: heart disease Social History Smoking Status: Never Smoker Alcohol Use: none Drug Use: none Marital Status: Housing Status: lives alone Occupation Status: unemployed Current/Historical Medications Scheduled Famotidine (Pepcid), 20 MG PO QPM Folic Acid (Folic Acid), 1 MG PO DAILY Furosemide (Lasix), 80 MG PO DAILY Insulin Aspart (Novolog), SQ ACHS Insulin Glargine (Lantus Solostar), 10 UNITS SQ QPM Lactulose (Chronulac), 15 ML PO TID Metoprolol Succ (Toprol Xl) (Toprol-Xl), 25 MG PO DAILY Nitroglycerin (Nitrostat), 0.4 MG UT PRN Pantoprazole (Protonix), 40 MG PO DAILY Potassium Chloride (K-Tabs), 40 MEQ PO BIDM Scheduled PRN Acetaminophen Tab (Tylenol), 650 MG PO Q4 PRN for Fever Ondansetron Hcl (Zofran), 4 MG PO Q6H PRN for Nausea Allergies Coded Allergies: Propranolol (Verified Allergy, Unknown, 10/16/16) Codeine (Verified Adverse Reaction, Mild, NOTED "DOESNT TOLERATE WELL" , 10/16/16) Physical Exam Vital Signs Date Time Temp Pulse Resp B/P (MAP) Pulse Ox O2 Delivery O2 Flow Rate FiO2 02/06/17 22:41 86 26 96 02/06/17 22:31 97/67 02/06/17 22:26 108 20 97 02/06/17 22:21 91 19 98 02/06/17 22:06 95 21 99 02/06/17 22:02 135/50 02/06/17 21:51 95 21 99 02/06/17 21:36 100 22 98 02/06/17 21:21 88 20 90/62 99 02/06/17 21:16 102 23 90/62 99 02/06/17 21:01 101 99 02/06/17 20:31 86 20 103/76 99 02/06/17 20:16 101 15 95 02/06/17 20:01 89 19 105/63 100 02/06/17 19:46 91 23 98 02/06/17 19:32 104/67 02/06/17 19:31 95 15 99 02/06/17 19:16 95 23 99 02/06/17 19:12 111/79 02/06/17 19:11 88 02/06/17 19:10 36.8 98 21 111/79 95 Room Air 02/06/17 19:07 150/144 Physical Exam GENERAL: alert, disheveled appearing, well nourished, no distress, non-toxic EYE EXAM: normal conjunctiva OROPHARYNX: no exudate, no erythema, lips, buccal mucosa, and tongue normal and mucous membranes are moist NECK: + JVD LUNGS: Faint rhonchi in bilateral bases HEART: no murmurs, S1 normal and S2 normal ABDOMEN: abdomen distended BACK: Back is symmetrical on inspection and there is no deformity, no midline tenderness, no CVA tenderness. SKIN: no rashes and no bruising UPPER EXTREMITIES: upper extremities are grossly normal. LOWER EXTREMITIES: Bilateral pitting edema tracking to abdomen NEURO EXAM: Oriented to person, place, not year. Cranial nerves II-XII intact, no weakness of arms, no weakness of legs. Medical Decision & Procedures ER Provider Diagnostic Interpretation: Radiology results as stated below per my review and the radiologist's interpretation: CT SCAN OF THE ABDOMEN AND PELVIS WITHOUT IV CONTRAST FINDINGS: Lung bases: The patient is status post midline sternotomy. The heart is enlarged and without pericardial effusion. Pacemaker leads are noted. There is diminished attenuation of the cardiac blood pool as compared to the myocardium suggesting anemia. The coronary arteries are densely calcified. There is a moderate right pleural effusion with associated right basilar atelectasis. Linear atelectasis is present at the left lung base. A tiny hiatal hernia is identified. Liver: The unenhanced liver is cirrhotic in morphology and heterogeneous in attenuation. There is nodularity of the hepatic surface contour. There is no intrahepatic biliary ductal dilatation. Gallbladder: Surgically absent noting clips in the gallbladder fossa. Spleen: Mildly enlarged measuring 14.8 cm in length. Pancreas: Atrophic and grossly unremarkable. Adrenal glands: Unremarkable. Kidneys: The unenhanced kidneys are atrophic and without hydronephrosis. There are no renal calculi identified. Small renal cysts measure up to 2 cm. Additional cortical hypodensities also likely represent cysts but cannot be definitively characterized.. Abdominal vasculature: The abdominal aorta is normal in course and caliber noting moderate to advanced atherosclerotic calcification. Bowel: A duodenal diverticulum is noted. No bowel obstruction is seen. There is advanced diverticulosis of the left colon without CT evidence of acute diverticulitis. The appendix is normal as visualized. Peritoneum: There is a moderate volume of abdominopelvic ascites. No intraperitoneal free air is seen. There is a fat and fluid containing right inguinal hernia. Lymphadenopathy: Prominent lymph nodes in the radha hepatis are likely related to chronic liver disease. Pelvic viscera: The prostate gland is diminutive and heterogeneous. The bladder wall is thickened and trabeculated. There are numerous bladder diverticula, and the findings are consistent with chronic outlet obstruction. Skeletal structures: The skeletal structures are osteopenic. There is moderate lumbosacral spondylosis. No lytic or blastic lesions are seen. IMPRESSION: 1. Significantly suboptimal examination without oral and IV contrast. 2. Moderate right pleural effusion with associated right basilar consolidation. This likely represents atelectasis. Clinical correlation will be required. 3. No acute infectious or inflammatory findings are seen in the abdomen or pelvis. 4. Cirrhotic liver morphology with evidence of portal hypertension including a moderate volume of abdominopelvic ascites and splenomegaly. 5. Advanced diverticulosis of the left colon without CT evidence of acute diverticulitis. 6. There is evidence of chronic bladder outlet obstruction. 7. Cardiomegaly. 8. Additional findings as above. Electronically signed by: Khoa Castro M.D. SINGLE VIEW CHEST FINDINGS: An AP, portable, upright chest radiograph is compared to study dated 12/08/2016 and correlated with chest CT dated 10/17/2016. The examination is degraded by portable technique and patient rotation. A 2-lead cardiac pacemaker is unchanged in position and partially obscures the left upper chest. The patient is status post midline sternotomy. The heart is enlarged and there is atherosclerotic calcification of the thoracic aorta. Mild pulmonary vascular congestion is suggested. There is a layering right pleural effusion with associated right basilar consolidation. Left basilar atelectasis is noted. No pneumothorax is seen. The skeletal structures are osteopenic. The bony thorax is grossly intact. IMPRESSION: 1. Cardiomegaly and cardiac pacemaker. Mild pulmonary vascular congestion is observed. 2. There is a layering right pleural effusion with associated right basilar consolidation. This likely represents atelectasis. Clinical correlation will be required. Electronically signed by: Khoa Castro M.D. Laboratory Results 02/06/17 19:45 Red Blood Count 3.31, Mean Corpuscular Volume 82.2, Mean Corpuscular Hemoglobin 25.7, Mean Corpuscular Hemoglobin Concent 31.3, Mean Platelet Volume 8.8, Neutrophils (%) (Auto) 79.5, Lymphocytes (%) (Auto) 8.3, Monocytes (%) (Auto) 10.8, Eosinophils (%) (Auto) 0.8, Basophils (%) (Auto) 0.3, Neutrophils # (Auto ) 2.96, Lymphocytes # (Auto) 0.31, Monocytes # (Auto) 0.40, Eosinophils # (Auto ) 0.03, Basophils # (Auto) 0.01 02/06/17 19:45 Test 02/06/17 19:45 02/06/17 21:50 02/06/17 22:15 White Blood Count 3.72 K/uL (4.8-10.8) Red Blood Count 3.31 M/uL (4.7-6.1) Hemoglobin 8.5 g/dL (14.0-18.0) Hematocrit 27.2 % (42-52) Mean Corpuscular Volume 82.2 fL (80-100) Mean Corpuscular Hemoglobin 25.7 pg (25-34) Mean Corpuscular Hemoglobin Concent 31.3 g/dl (32-36) Platelet Count 80 K/uL (130-400) Mean Platelet Volume 8.8 fL (7.4-10.4) Neutrophils (%) (Auto) 79.5 % Lymphocytes (%) (Auto) 8.3 % Monocytes (%) (Auto) 10.8 % Eosinophils (%) (Auto) 0.8 % Basophils (%) (Auto) 0.3 % Neutrophils # (Auto) 2.96 K/uL (1.4-6.5) Lymphocytes # (Auto) 0.31 K/uL (1.2-3.4) Monocytes # (Auto) 0.40 K/uL (0.11-0.59) Eosinophils # (Auto) 0.03 K/uL (0-0.5) Basophils # (Auto) 0.01 K/uL (0-0.2) RDW Standard Deviation 53.4 fL (36.4-46.3) RDW Coefficient of Variation 17.7 % (11.5-14.5) Immature Granulocyte % (Auto) 0.3 % Immature Granulocyte # (Auto) 0.01 K/uL (0.00-0.02) Red Blood Cell Morphology Unremarkable Prothrombin Time 13.4 SECONDS (9.0-12.0) Prothromb Time International Ratio 1.2 (0.9-1.1) Activated Partial Thromboplast Time 31.5 SECONDS (21.0-31.0) Partial Thromboplastin Ratio 1.2 Anion Gap 7.0 mmol/L (3-11) Est Creatinine Clear Calc Drug Dose 25.6 ml/min Estimated GFR () 23.5 Estimated GFR (Non- 20.3 BUN/Creatinine Ratio 12.8 (10-20) Calcium Level 7.9 mg/dl (8.5-10.1) Magnesium Level 2.4 mg/dl (1.8-2.4) Total Bilirubin 0.6 mg/dl (0.2-1) Direct Bilirubin 0.2 mg/dl (0-0.2) Aspartate Amino Transf (AST/SGOT) 31 U/L (15-37) Alanine Aminotransferase (ALT/SGPT) 18 U/L (12-78) Alkaline Phosphatase 95 U/L (45-117) Troponin I 0.023 ng/ml (0-0.045) Pro-B-Type Natriuretic Peptide 6705 pg/ml (0-1800) Total Protein 6.2 gm/dl (6.4-8.2) Albumin 1.9 gm/dl (3.4-5.0) Lipase 90 U/L (73-393) Urine Color YELLOW Urine Appearance CLEAR (CLEAR) Urine pH 5.0 (4.5-7.5) Urine Specific [place] 1.019 (1.000-1.030) Urine Protein NEG (NEG) Urine Glucose (UA) NEG (NEG) Urine Ketones NEG (NEG) Urine Occult Blood NEG (NEG) Urine Nitrite NEG (NEG) Urine Bilirubin NEG (NEG) Urine Urobilinogen NEG (NEG) Urine Leukocyte Esterase NEG (NEG) Urine WBC (Auto) 1-5 /hpf (0-5) Urine RBC (Auto) 0-4 /hpf (0-4) Urine Hyaline Casts (Auto) 5-10 /lpf (0-5) Urine Epithelial Cells (Auto) 5-10 /lpf (0-5) Urine Bacteria (Auto) NEG (NEG) Laboratory results per my review. Medications Administered Medications (Trade) Dose Ordered Sig/Gin Route Start Time Stop Time Status Last Admin Dose Admin Furosemide (Lasix Inj) 40 mg NOW STAT IV 02/06/17 21:12 02/06/17 21:13 DC 02/06/17 21:22 40 MG ECG Indication: abdominal pain Rate (beats per minute): 93 Rhythm: atrial fibrillation Findings: LBBB Comparison ECG Date: 12/16/16 Change: no significant change ED Course ED COURSE: Vital signs were reviewed and showed normal The patients medical record was reviewed The above diagnostic studies were performed and reviewed. ED treatments and interventions as stated above. 1904: The patient was evaluated in room B10. A complete history and physical examination was performed. 2111: Lasix Inj 40 mg IV. 2119: I reevaluated the patient he is resting comfortably. 2147: Upon reevaluation, the patient is resting. I discussed the findings and the treatment plan with the patient. He expresses agreement and understanding. I spoke with Emy of the [facility]. The patient will be evaluated for further management. Based on the patients age, coexisting illnesses, exam and lab findings the decision to treat as an outpatient was made. The patient remained stable while under my care. The patient will be evaluated for further management. Medical Decision Differential diagnoses includes but is not limited to gastritis, peptic ulcer disease, GERD, gallbladder disease, pancreatitis, small bowel obstruction, acute coronary syndrome, pericarditis, ischemic bowel, irritable bowel disease, irritable bowel syndrome, appendicitis, diverticulitis, malignancy, hernia, urinary tract infection, torsion, perforation, trauma, infectious. Patient is an 87-year-old male that presents to ER for abdominal fullness associated with swelling in his lower extremities and 10 pound weight gain. He was sent in by the [facility] notes that he was having trouble breathing. He is currently his baseline. He has no complaints of any shortness of breath. He does have diffuse pitting edema associated with JVD chest x-ray supporting CHF. Labs show an improved hemoglobin at 8.5. Creatinine was elevated but at baseline at 2.7. BNP was 7000. Troponin detectable but not positive. Patient was given IV Lasix. He was admitted to internal medicine with anasarca and CHF. Medication Reconcilliation Current Medication List: was personally reviewed by me Blood Pressure Screening Patient's blood pressure: Normal blood pressure Consults Time Called: 2144 Consulting Physician: Dr. Vanessa Galeana Returned Call: 2147 I reviewed the patient's case with Dr. Quevedo. He will evaluate the patient for further management. Impression Primary Impression: Anasarca Additional Impression: CHF (congestive heart failure) Scribe Attestation The scribe's documentation has been prepared under my direction and personally reviewed by me in its entirety. I confirm that the note above accurately reflects all work, treatment, procedures, and medical decision making performed by me. Departure Information Dispostion Being Evaluated By Hospitalist Referrals Anastacio Garza M.D. (PCP) Patient Instructions My [facility] Problem Qualifiers Additional Impression: CHF (congestive heart failure) Congestive heart failure type: unspecified congestive heart failure type Congestive heart failure chronicity: unspecified congestive heart failure chronicity Qualified Codes: I50.9 - Heart failure, unspecified
[2017-02-06 20:04] LABS: HEMATOCRIT 27.2 % (42-52); MEAN CELL VOLUME 82.2 fL (80-100); MEAN CORPUSCULAR HEMOGLOBIN 25.7 pg (25-34); MEAN CORPUSCULAR HGB CONC 31.3 g/dl (32-36); RED BLOOD COUNT 3.31 M/uL (4.7-6.1); WHITE BLOOD COUNT 3.72 K/uL (4.8-10.8)
[2017-02-06 20:25] LABS: BUN/CREATININE RATIO 12.8 (10-20); CALCIUM 7.9 mg/dl (8.5-10.1); CREATININE 2.7 mg/dl (0.60-1.40)
[2017-02-06 20:27] LABS: MEAN PLATELET VOLUME 8.8 fL (7.4-10.4); PLATELET COUNT 80 K/uL (130-400)
[2017-02-06 20:38] LABS: BASO % 0.3 %; BASO ABS # 0.01 K/uL (0-0.2); COMPLETE YES; EOS % 0.8 %; IG% 0.3 %; LYMPH % 8.3 %; LYMPH ABS # 0.31 K/uL (1.2-3.4); MONO % 10.8 %; NEUT % 79.5 %
[2017-02-06] MEDS ORDERED: FURO80TA63 PO (20:50)
[2017-02-06] MEDS ORDERED: POTA10TA PO (20:52)
[2017-02-06] MEDS ORDERED: LACT10SO17 PO (20:56)
--- NOTE | 2017-02-06 20:56 | DIAGNOSTIC IMAGING REPORT ---
SINGLE VIEW CHEST CLINICAL HISTORY: Dyspnea. FINDINGS: An AP, portable, upright chest radiograph is compared to study dated 12/08/2016 and correlated with chest CT dated 10/17/2016. The examination is degraded by portable technique and patient rotation. A 2-lead cardiac pacemaker is unchanged in position and partially obscures the left upper chest. The patient is status post midline sternotomy. The heart is enlarged and there is atherosclerotic calcification of the thoracic aorta. Mild pulmonary vascular congestion is suggested. There is a layering right pleural effusion with associated right basilar consolidation. Left basilar atelectasis is noted. No pneumothorax is seen. The skeletal structures are osteopenic. The bony thorax is grossly intact. IMPRESSION: 1. Cardiomegaly and cardiac pacemaker. Mild pulmonary vascular congestion is observed. 2. There is a layering right pleural effusion with associated right basilar consolidation. This likely represents atelectasis. Clinical correlation will be required. Electronically signed by: Khoa Castro M.D. 02/06/2017 8:54 PM Dictated Date/Time: 02/06/2017 8:53 PM
[2017-02-06] MEDS ORDERED: METO25TA3 PO (20:57)
[2017-02-06] MEDS ORDERED: NVLG SQ (20:59)
[2017-02-06] MEDS ORDERED: INSDGIPEN SQ (21:01)
[2017-02-06] MEDS ORDERED: ONDA4TAB46 PO (21:03)
--- NOTE | 2017-02-06 21:04 | DIAGNOSTIC IMAGING REPORT ---
CT SCAN OF THE ABDOMEN AND PELVIS WITHOUT IV CONTRAST CLINICAL HISTORY: Generalized abdominal pain and swelling. COMPARISON STUDY: Abdominal CT dated 10/17/2016 TECHNIQUE: CT scan of the abdomen and pelvis is performed from the lung bases to the proximal femora. Images are reviewed in the axial, sagittal, and coronal planes. IV contrast was not administered for this examination as per the front clinician. Note that the examination was performed in significantly suboptimal fashion without oral and IV contrast. A dose lowering technique was utilized adhering to the principles of ALARA. The examination is degraded by motion artifact. CT DOSE: 1782.15 mGy.cm FINDINGS: Lung bases: The patient is status post midline sternotomy. The heart is enlarged and without pericardial effusion. Pacemaker leads are noted. There is diminished attenuation of the cardiac blood pool as compared to the myocardium suggesting anemia. The coronary arteries are densely calcified. There is a moderate right pleural effusion with associated right basilar atelectasis. Linear atelectasis is present at the left lung base. A tiny hiatal hernia is identified. Liver: The unenhanced liver is cirrhotic in morphology and heterogeneous in attenuation. There is nodularity of the hepatic surface contour. There is no intrahepatic biliary ductal dilatation. Gallbladder: Surgically absent noting clips in the gallbladder fossa. Spleen: Mildly enlarged measuring 14.8 cm in length. Pancreas: Atrophic and grossly unremarkable. Adrenal glands: Unremarkable. Kidneys: The unenhanced kidneys are atrophic and without hydronephrosis. There are no renal calculi identified. Small renal cysts measure up to 2 cm. Additional cortical hypodensities also likely represent cysts but cannot be definitively characterized.. Abdominal vasculature: The abdominal aorta is normal in course and caliber noting moderate to advanced atherosclerotic calcification. Bowel: A duodenal diverticulum is noted. No bowel obstruction is seen. There is advanced diverticulosis of the left colon without CT evidence of acute diverticulitis. The appendix is normal as visualized. Peritoneum: There is a moderate volume of abdominopelvic ascites. No intraperitoneal free air is seen. There is a fat and fluid containing right inguinal hernia. Lymphadenopathy: Prominent lymph nodes in the radha hepatis are likely related to chronic liver disease. Pelvic viscera: The prostate gland is diminutive and heterogeneous. The bladder wall is thickened and trabeculated. There are numerous bladder diverticula, and the findings are consistent with chronic outlet obstruction. Skeletal structures: The skeletal structures are osteopenic. There is moderate lumbosacral spondylosis. No lytic or blastic lesions are seen. IMPRESSION: 1. Significantly suboptimal examination without oral and IV contrast. 2. Moderate right pleural effusion with associated right basilar consolidation. This likely represents atelectasis. Clinical correlation will be required. 3. No acute infectious or inflammatory findings are seen in the abdomen or pelvis. 4. Cirrhotic liver morphology with evidence of portal hypertension including a moderate volume of abdominopelvic ascites and splenomegaly. 5. Advanced diverticulosis of the left colon without CT evidence of acute diverticulitis. 6. There is evidence of chronic bladder outlet obstruction. 7. Cardiomegaly. 8. Additional findings as above. Electronically signed by: Khoa Castro M.D. 02/06/2017 9:03 PM Dictated Date/Time: 02/06/2017 8:55 PM
[2017-02-06] MEDS ORDERED: FUROSEMIDE 40 MG/4 ML VIAL IV STA (21:12)
[2017-02-06 22:23] LABS: MAGNESIUM 2.4 mg/dl (1.8-2.4)
[2017-02-06 22:44] LABS: URINE APPEARANCE CLEAR (CLEAR); URINE BILIRUBIN NEG (NEG); URINE COLOR YELLOW; URINE NITRITE NEG (NEG); URINE SPECIFIC GRAVITY 1.019 (1.000-1.030); UROBILINOGEN NEG (NEG); ZZURINE CULT IF INDIC CATH NO
[2017-02-06 22:47] LABS: MANUAL MICROSCOPIC REQUIRED? NO; REVIEW REQ? NO
[2017-02-06 23:00] LABS: INR 1.2 (0.9-1.1); PARTIAL THROMBOPLASTIN RATIO 1.2; PROTHROMBIN TIME (PATIENT) 13.4 SECONDS (9.0-12.0)
[2017-02-07] VITALS (10 sets, daily range): BP systolic 92–109; BP diastolic 60–73; PULSE 64–93; TEMP 36.6–36.8; O2SAT 97–99; Ht 182.9 cm; Wt 104.0 kg
[2017-02-07] MEDS ORDERED: LACTULOSE SYRUP 20 GM/30 ML UDC PO ONE (00:04)
[2017-02-07] MEDS ORDERED: ACETAMINOPHEN 325 MG TAB PO PRN (00:15)
[2017-02-07] MEDS ORDERED: GLUCAGON FOR INJ 1 MG VIAL SQ PRN (00:15)
[2017-02-07] MEDS ORDERED: HYDROmorphone INJ 0.5 MG/0.5 ML SYR IV PRN (00:15)
[2017-02-07] MEDS ORDERED: TRAMADOL HCL 50 MG TAB PO PRN (00:15)
[2017-02-07] MEDS ORDERED: GLUCOSE 40% GEL 15 GM TUBE PO PRN (00:15)
[2017-02-07] MEDS ORDERED: ONDANSETRON INJ 2 MG/ML 2 ML VIAL IV PRN (00:15)
[2017-02-07] MEDS ORDERED: ALBUT/IPRATROP 3MG/0.5MG NEB 3 ML VIAL INH PRN (00:15)
[2017-02-07] MEDS ORDERED: DEXTROSE 50% 50 ML SYR IV PRN (00:15)
[2017-02-07] MEDS ORDERED: GLUCOSE 10 TABS/TUBE PO PRN (00:15)
[2017-02-07] MEDS ORDERED: NITROGLYCERIN 0.4 MG SL PER TAB CHARGE UT SCH (00:15)
[2017-02-07] MEDS ORDERED: ALBUT/IPRATROP 3MG/0.5MG NEB 3 ML VIAL INH STA (00:39)
[2017-02-07] MEDS: METRONIDAZOLE 500 MG TAB PO SCH ×2 (05:53→11:54)
[2017-02-07 06:16] LABS: ESTIMATED AVERAGE GLUCOSE 131 mg/dl; HA1C FLAG Normal (Normal)
[2017-02-07 06:19] LABS: HEMATOCRIT 25.4 % (42-52); MEAN CELL VOLUME 83.3 fL (80-100); MEAN CORPUSCULAR HEMOGLOBIN 25.6 pg (25-34); MEAN CORPUSCULAR HGB CONC 30.7 g/dl (32-36); RED BLOOD COUNT 3.05 M/uL (4.7-6.1); WHITE BLOOD COUNT 3.05 K/uL (4.8-10.8)
[2017-02-07 06:23] LABS: MEAN PLATELET VOLUME 9.2 fL (7.4-10.4); PLATELET COUNT 66 K/uL (130-400)
[2017-02-07 06:56] LABS: BUN/CREATININE RATIO 12.6 (10-20); CREATININE 2.7 mg/dl (0.60-1.40)
[2017-02-07 07:29] LABS: ANISOCYTOSIS PRESENT; BASO % 0.7 %; BASO ABS # 0.02 K/uL (0-0.2); COMPLETE YES; HYPERSEGMENTED POLYS 1+; IG% 0.3 %; LYMPH % 8.5 %; LYMPH ABS # 0.26 K/uL (1.2-3.4); MONO % 16.4 %; NEUT % 73.1 %; OVALOCYTES 1+
[2017-02-07] MEDS: INSULIN ASPART 100 UNITS/ML 3 ML PEN SC SCH ×4 (07:41→20:47)
[2017-02-07] MEDS: INSULIN GLARGINE SOLOSTAR 100 UNITS/ML 3 ML PEN SQ SCH (07:45)
[2017-02-07] MEDS: METOPROLOL SUCC 25MG EXT REL TAB PO SCH (07:53)
[2017-02-07] MEDS: FUROSEMIDE 80 MG TAB PO SCH (07:53)
[2017-02-07] MEDS: LACTULOSE SYRUP 10 GM/15 ML BTL 473 ML PO SCH ×2 (07:54→13:42)
[2017-02-07] MEDS: PANTOprazole SOD 40 MG TAB PO SCH (07:54)
--- NOTE | 2017-02-07 10:12 | HISTORY & PHYSICAL EXAMINATION ---
DATE OF ADMISSION: 02/06/2017 PRIMARY CARE PHYSICIAN: Dr. Garza. HISTORY OF PRESENT ILLNESS: History obtained from patient, family, and records. Patient is a fair historian. Questionable insight on medical conditions. Medical history significant for paroxysmal AFib, 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 as per records, hypertension, hyperlipidemia, COPD, hypertrophic cardiomyopathy status post surgery, nonischemic cardiomyopathy (EF 65-70%). cirrhosis secondary to nonalcoholic fatty liver disease, hx SSS sp PPM, hx bladder cancer as per records, DM2, insulin requiring, CARLITA, chronic renal insufficiency, (baseline creatinine of 2.9), chronic anemia ( baseline hemoglobin of 8-9) Recent confinement last month for hypertension, acute kidney injury, cirrhosis with ascites. Improved with medical management. As per note discharge note, palliative care hospice discussed with daughter. Patient's daughter preferred not pursue at that time, . Patient discharged to [facility]. Subsequently discharged to [facility]. As per note, the last week, the patient noted to have increasing lower extremity edema and abdominal distention. Patient unable to take a deep breath because of increasing abdominal distention , no unusual cough symptoms. No fever no chills. At the Emergency Room, the patient was given Lasix for ascites. MEDICAL HISTORY: As above, [place] [facility] [place] a few days ago. As per note, significant lower extremity edema and abdominal distention after home diuretics scaled back. Lasix increased in dose. SURGICAL HISTORY: He has had pacemaker placement, heart surgery, urologic procedures, and myomectomy. HOME MEDICATIONS: Include lactulose, Toprol, Nitrostat, Zofran, K-Tabs, Protonix, Tylenol, Lasix, Pepcid, folic acid, NovoLog, Lantus. ALLERGIES: CODEINE AND PROPRANOLOL. FAMILY HISTORY: Hypertension. PERSONAL AND SOCIAL HISTORY: Nonsmoker, no chronic intake of alcoholic beverages. Currently, [facility] resident. REVIEW OF SYSTEMS: As per HPI, all other ROS negative. PHYSICAL EXAMINATION: VITAL SIGNS: Blood pressure noted to be blood pressure 103/76, later 96, pulse rate 88, respiratory rate 20, temperature 36.8, sats 97 on room air. GENERAL: Noted to be slightly uncomfortable, no distress. SKIN: Pallor. HEENT: Pale palpebral conjunctivae, dry mucosa. NECK: No JVD. Supple. CHEST: Decreased effort. HEART: Regular rate and rhythm. ABDOMEN: Fluid wave, nontender. EXTREMITIES: Bilateral lower extremity edema. No tenderness NEUROLOGIC: No gross focality, except for intention tremors. LABORATORY DATA: Hemoglobin 8.5, hematocrit 37.2, white cell 3.7, platelets 80. Sodium noted to be 141, potassium 5, chloride 110, CO2 24, BUN 34, creatinine 2.7, glucose 112. IMAGING DATA: CT abdomen and pelvis showed moderate right pleural effusion and associated right basilar consolidation, possible atelectasis, cirrhosis with evidence of portal hypertension with moderate volume of abdominopelvic ascites, splenomegaly, diverticulosis, chronic bladder outlet obstruction, and cardiomegaly. Chest x-ray showed moderate right pleural effusion and right basilar consolidation, atelectasis. ASSESSMENT: 1. Decompensated cirrhosis secondary to non-alcoholic fatty liver disease 2. chronic renal insufficiency, creatinine at baseline 3. hypotension hx HTN blood pressure on the lower side since 09/2016 on review of records Seems to be new baseline for patient 4. DM2, insulin requiring well controlled as of recent hemoglobin A1c was 6.2 5. chronic anemia, hemoglobin at baseline hx 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 as per records 6. sick sinus syndrome status post pacemaker; 7. hx HOCM sp myomectomy. 8. COPD as per records Pulmo-status at baseline 10. hx bladder cancer PLAN: GMF Diuretic Rx Diagnostic and therapeutic paracentesis in the morning. GI consult RE decompensated cirrhosis May need Nephrology assistance regarding diuretic management Decrease home beta noman dose by half Basal insulin, ISS BG goal 140-180 PT OT eval (Patient current stay at personal half-way may not be appropriate for his needs.) Palliative goals of care were discussed with the patient and daughter. Not ready for now. Patient still willing to undergo procedures/necessary workup/management/ hospitalizations if necessary for exacerbations of chronic disease. DVT prophylaxis, SCDs RE thrombocytopenia DNR. Patient's daughter requesting updates from providers. Miss Rupinder Mensah at [phone]. [facility]
--- NOTE | 2017-02-07 10:19 | DIAGNOSTIC IMAGING REPORT ---
PARACENTESIS UNDER ULTRASOUND GUIDANCE CLINICAL HISTORY: ascites COMPARISON STUDY: CT scan dated 02/06/2017 FINDINGS: The risks, benefits, and alternatives to the procedure were discussed with the patient. Written informed consent was obtained. Following real-time ultrasound localization, the skin was prepped and draped. Following local anesthesia with Xylocaine, the sheath paracentesis needle was inserted and approximately 5 liters of straw-colored fluid was removed by vacuum suction. The patient tolerated the procedure well and left the department in satisfactory condition. IMPRESSION: Successful ultrasound-guided paracentesis with removal of approximately 5 liters of ascitic fluid. Electronically signed by: Gurinder Medina M.D. 02/07/2017 10:18 AM Dictated Date/Time: 02/07/2017 10:17 AM
--- NOTE | 2017-02-07 11:16 | Gastrointestinal Consultation ---
Gastrointestinal Consultation Date of Consultation: Feb 07, 2017 Attending Physician: Sandra Consulting Physician: Everett Reason for Consultation: cirrhosis History of Present Illness Patient is a 87 year old male with history of CKD, cirrhosis and others listed below who presented in the ED for evaluation of diarrhea and increased abdominal girth. Pt was seen and evaluated, chart reviewed. Family is at bedside. Pt is a poor historian and daughter is aiding in history - he [facility]. Of note, pt returned from from paracentesis prior to my evaluation. Pt tells me he woke up yesterday morning with abdominal pain, diarrhea and new abdominal distention. Stool for c.diff was positive. He tells me he does not know what medications he takes, but takes what he is given. Reports constant abdominal pain, mildly relieved after paracentesis. Also having abdominal cramping. Notes diarrhea yesterday, none today, he is unsure if he is passing gas. Per nursing staff, he has not had a BM since he was admitted to the floor. Decompensations - Ascites: yes - Varices: unknown - Hepatic encephalopathy: yes Screenings - Varices: due - HCC screening: UTD - Immunization status: unknown Paracentesis 02/06/17: 5 liters of straw-colored fluid CT ABD 02/06/17: Significantly suboptimal examination without oral and IV contrast. Moderate right pleural effusion with associated right basilar consolidation. This likely represents atelectasis. Clinical correlation will be required. No acute infectious or inflammatory findings are seen in the abdomen or pelvis. Cirrhotic liver morphology with evidence of portal hypertension including a moderate volume of abdominopelvic ascites and splenomegaly. Advanced diverticulosis of the left colon without CT evidence of acute diverticulitis. There is evidence of chronic bladder outlet obstruction. Cardiomegaly. Past Medical/Surgical History Medical Problems: (1) Acute on chronic renal failure Status: Acute (2) MAGEN (acute kidney injury) Status: Acute (3) Anasarca Status: Acute (4) Anasarca Status: Acute (5) Bilateral leg edema Status: Acute (6) CHF (congestive heart failure) Status: Acute (7) CHF (congestive heart failure) Status: Acute (8) Dehydration Status: Acute (9) Dyspnea on exertion Status: Acute (10) Elevated lactic acid level Status: Acute (11) Elevated troponin Status: Acute (12) Hypotension Status: Acute (13) Pulmonary edema Status: Acute (14) Right heart failure Status: Acute Past Medical History: cirrhosis, depression, CKD, HTN, GERD, sleep apnea, bladder CA, 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, COPD. Past Surgical History: unspecified bladder surgery, pacer Family History FHx: heart disease Social History Smoking Status: Former Smoker Alcohol Use: none Drug Use: none Marital Status: Housing Status: lives alone Occupation Status: unemployed Allergies Coded Allergies: Propranolol (Verified Allergy, Unknown, 10/16/16) Codeine (Verified Adverse Reaction, Mild, NOTED "DOESNT TOLERATE WELL" , 10/16/16) Current Medications Home Meds and Scripts Medications Dose Route/Sig Max Daily Dose Days Date Category Dose Instructions Zofran (Ondansetron HCl) 4 Mg Tab 4 Mg PO Q6H PRN 02/06/17 Reported Lantus Solostar (Insulin Glargine) 100 Unit/Ml Inj 10 Units SQ QPM 02/06/17 Reported Novolog (Insulin Aspart) 100 Units/Ml Inj SQ ACHS 02/06/17 Reported SLIDING SCALE Toprol-Xl (Metoprolol Succinate) 25 Mg Tabcr 25 Mg PO DAILY 02/06/17 Reported Chronulac (Lactulose) 10 Gm/15 Ml Syrp 15 Ml PO TID 02/06/17 Reported K-Tabs (Potassium Chloride) 10 Meq Tab 40 Meq PO BIDM 02/06/17 Reported WITH AM AND EVENING MEALS Lasix (Furosemide) 80 Mg Tab 80 Mg PO DAILY 02/06/17 Reported Protonix (Pantoprazole Sodium) 40 Mg Tab 40 Mg PO DAILY 09/01/16 Reported Pepcid (Famotidine) 20 Mg Tab 20 Mg PO QPM 01/19/14 Reported Tylenol (Acetaminophen) 325 Mg Tab 650 Mg PO Q4 PRN 08/26/13 Reported NOT TO EXCEED 3000MG APAP/24HR Nitrostat (Nitroglycerin) 0.4 Mg Tab 0.4 Mg UT PRN 08/26/13 Reported Folic Acid 1 Mg Tab 1 Mg PO DAILY 08/26/13 Reported Review of Systems Constitutional: No fever, No chills Respiratory: No cough Cardiac: No chest pain, No edema Abdomen: + pain (generalized abdominal pain, explained as pressure, constant, mildly improved after paracentesis ), + nausea, No vomiting, No diarrhea, No constipation, No GI bleeding Physical Exam Date Time Temp Pulse Resp B/P (MAP) Pulse Ox O2 Delivery O2 Flow Rate FiO2 02/07/17 06:33 36.8 83 16 93/61 (72) 97 Room Air 02/07/17 01:39 64 18 98 Room Air 02/07/17 00:19 36.8 88 24 109/73 97 Room Air 02/06/17 22:56 89 20 100 02/06/17 22:41 86 26 96 02/06/17 22:31 97/67 02/06/17 22:26 108 20 97 02/06/17 22:21 91 19 98 02/06/17 22:06 95 21 99 02/06/17 22:02 135/50 02/06/17 21:51 95 21 99 02/06/17 21:36 100 22 98 02/06/17 21:21 88 20 90/62 99 02/06/17 21:16 102 23 90/62 99 02/06/17 21:01 101 99 02/06/17 20:31 86 20 103/76 99 02/06/17 20:16 101 15 95 02/06/17 20:01 89 19 105/63 100 02/06/17 19:46 91 23 98 02/06/17 19:32 104/67 02/06/17 19:31 95 15 99 02/06/17 19:16 95 23 99 02/06/17 19:12 111/79 02/06/17 19:11 88 02/06/17 19:10 36.8 98 21 111/79 95 Room Air 02/06/17 19:07 150/144 General Appearance: no apparent distress, + pertinent finding (ill appearing) Eyes: PERRL ENT: hearing grossly normal Neck: supple Respiratory/Chest: lungs clear, normal breath sounds Cardiovascular: regular rate, rhythm Abdomen: normal bowel sounds, soft, no organomegaly, no pulsatile mass, + tenderness (generalized tenderness, nontense distention ) Neurologic/Psych: alert, normal mood/affect, oriented x 3 Skin: normal color Laboratory Results Last 24 Hours Test 02/06/17 19:45 02/06/17 22:15 02/07/17 00:00 02/07/17 00:51 White Blood Count 3.72 K/uL Red Blood Count 3.31 M/uL Hemoglobin 8.5 g/dL Hematocrit 27.2 % Mean Corpuscular Volume 82.2 fL Mean Corpuscular Hemoglobin 25.7 pg Mean Corpuscular Hemoglobin Concent 31.3 g/dl Platelet Count 80 K/uL Mean Platelet Volume 8.8 fL Neutrophils (%) (Auto) 79.5 % Lymphocytes (%) (Auto) 8.3 % Monocytes (%) (Auto) 10.8 % Eosinophils (%) (Auto) 0.8 % Basophils (%) (Auto) 0.3 % Neutrophils # (Auto) 2.96 K/uL Lymphocytes # (Auto) 0.31 K/uL Monocytes # (Auto) 0.40 K/uL Eosinophils # (Auto) 0.03 K/uL Basophils # (Auto) 0.01 K/uL RDW Standard Deviation 53.4 fL RDW Coefficient of Variation 17.7 % Immature Granulocyte % (Auto) 0.3 % Immature Granulocyte # (Auto) 0.01 K/uL Red Blood Cell Morphology Unremarkable Prothrombin Time 13.4 SECONDS Prothromb Time International Ratio 1.2 Activated Partial Thromboplast Time 31.5 SECONDS Partial Thromboplastin Ratio 1.2 Sodium Level 141 mmol/L Potassium Level 5.0 mmol/L Chloride Level 110 mmol/L Carbon Dioxide Level 24 mmol/L Anion Gap 7.0 mmol/L Blood Urea Nitrogen 35 mg/dl Creatinine 2.70 mg/dl Est Creatinine Clear Calc Drug Dose 25.6 ml/min Estimated GFR () 23.5 Estimated GFR (Non- 20.3 BUN/Creatinine Ratio 12.8 Random Glucose 112 mg/dl Calcium Level 7.9 mg/dl Magnesium Level 2.4 mg/dl Total Bilirubin 0.6 mg/dl Direct Bilirubin 0.2 mg/dl Aspartate Amino Transf (AST/SGOT) 31 U/L Alanine Aminotransferase (ALT/SGPT) 18 U/L Alkaline Phosphatase 95 U/L Troponin I 0.023 ng/ml Pro-B-Type Natriuretic Peptide 6705 pg/ml Total Protein 6.2 gm/dl Albumin 1.9 gm/dl Lipase 90 U/L Urine Color YELLOW Urine Appearance CLEAR Urine pH 5.0 Urine Specific [place] 1.019 Urine Protein NEG Urine Glucose (UA) NEG Urine Ketones NEG Urine Occult Blood NEG Urine Nitrite NEG Urine Bilirubin NEG Urine Urobilinogen NEG Urine Leukocyte Esterase NEG Urine WBC (Auto) 1-5 /hpf Urine RBC (Auto) 0-4 /hpf Urine Hyaline Casts (Auto) 5-10 /lpf Urine Epithelial Cells (Auto) 5-10 /lpf Urine Bacteria (Auto) NEG Estimated Average Glucose 131 mg/dl Hemoglobin A1c 6.2 % Lactic Acid Level 1.3 mmol/L Test 02/07/17 05:32 02/07/17 07:28 White Blood Count 3.05 K/uL Red Blood Count 3.05 M/uL Hemoglobin 7.8 g/dL Hematocrit 25.4 % Mean Corpuscular Volume 83.3 fL Mean Corpuscular Hemoglobin 25.6 pg Mean Corpuscular Hemoglobin Concent 30.7 g/dl Platelet Count 66 K/uL Mean Platelet Volume 9.2 fL Neutrophils (%) (Auto) 73.1 % Lymphocytes (%) (Auto) 8.5 % Monocytes (%) (Auto) 16.4 % Eosinophils (%) (Auto) 1.0 % Basophils (%) (Auto) 0.7 % Neutrophils # (Auto) 2.23 K/uL Lymphocytes # (Auto) 0.26 K/uL Monocytes # (Auto) 0.50 K/uL Eosinophils # (Auto) 0.03 K/uL Basophils # (Auto) 0.02 K/uL RDW Standard Deviation 54.0 fL RDW Coefficient of Variation 17.7 % Immature Granulocyte % (Auto) 0.3 % Immature Granulocyte # (Auto) 0.01 K/uL Hypersegmented Polys 1+ Anisocytosis PRESENT Ovalocytes 1+ Sodium Level 142 mmol/L Potassium Level 5.0 mmol/L Chloride Level 111 mmol/L Carbon Dioxide Level 24 mmol/L Anion Gap 7.0 mmol/L Blood Urea Nitrogen 34 mg/dl Creatinine 2.70 mg/dl Est Creatinine Clear Calc Drug Dose 25.2 ml/min Estimated GFR () 23.5 Estimated GFR (Non- 20.3 BUN/Creatinine Ratio 12.6 Random Glucose 120 mg/dl Calcium Level 8.0 mg/dl Bedside Glucose 124 mg/dl Impression Patient is a 87 year old male w/ cirrhosis decompensated by gross ascites and hepatic encephalopathy, unknown if he has esophageal varices who presented to the ED for abdominal distention, weight gain and diarrhea. C.diff positive. Prior to my evaluation this AM had a 5L diagnostic and therapeutic paracentesis , will await fluid studies. Of note he had a liver biopsy in 2004 for elevated LFTs, with evidence of significant portal and periportal fibrosis with ongoing hepatocyte injury - unknown source. through review of records, does not appear there was any follow up after this biopsy. Will need to rule out SBP, kidney function appears at baseline will suggest nephrology consult to aid in aggressive diuresis given acute volume overload and weight gain. 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 ATTESTATION: I have performed a history and physical examination of this patient and reviewed the electronic record. Specifically, on physical examination there is no asterixis and patient is oriented. I have discussed the case with ARMINDA Rodríguez. The above note reflects my findings, conclusions, and recommendations. Misael Floyd MD
[2017-02-07 11:37] LABS: PERIT FL WBC 138 /uL (0-300); PERITONEAL FLUID RBC < 3000 /uL
--- NOTE | 2017-02-07 16:56 | Progress Note ---
Medicine Progress Note Date & Time of Visit: Feb 07, 2017 at 16:41. Subjective patient seen resting in bed, daughter Rupinder at bedside s/p Paracentesis today, 5 L drained states he feels improved compared to yesterday denies abdominal pain, nausea/vomiting denies diarrhea today no confusion denies other symptoms Objective Last 8 Hrs Date Time Temp Pulse Resp B/P (MAP) Pulse Ox O2 Delivery O2 Flow Rate FiO2 02/07/17 15:34 36.6 77 20 92/61 (71) 99 02/07/17 13:17 82 02/07/17 11:29 36.7 85 16 95/63 (74) 97 Room Air 02/07/17 11:29 36.7 85 16 95/63 (74) 97 02/07/17 11:02 36.7 73 16 100/62 (75) 99 Room Air 02/07/17 11:01 99 Physical Exam: General-oriented x 2, not in distress, speaks in sentences with no effort Head- atraumatic Eyes- EOMI, anicteric ENT- oropharynx clear Neck- supple, no JVD, no adenopathy, no thyromegaly Lungs- decreased breath sounds right base, clear on the left no wheezing, no rhonchi Heart- regular rhythm; no murmur, normal rate Abdomen- moderately distended, soft, nontender Extremities- no pretibial edema, no calf tenderness Neuro- alert, oriented x 2; no gross focal deficits Skin- warm & dry Laboratory Results: Last 24 Hours Test 02/06/17 19:45 02/06/17 22:15 02/07/17 00:00 02/07/17 00:51 White Blood Count 3.72 K/uL Red Blood Count 3.31 M/uL Hemoglobin 8.5 g/dL Hematocrit 27.2 % Mean Corpuscular Volume 82.2 fL Mean Corpuscular Hemoglobin 25.7 pg Mean Corpuscular Hemoglobin Concent 31.3 g/dl Platelet Count 80 K/uL Mean Platelet Volume 8.8 fL Neutrophils (%) (Auto) 79.5 % Lymphocytes (%) (Auto) 8.3 % Monocytes (%) (Auto) 10.8 % Eosinophils (%) (Auto) 0.8 % Basophils (%) (Auto) 0.3 % Neutrophils # (Auto) 2.96 K/uL Lymphocytes # (Auto) 0.31 K/uL Monocytes # (Auto) 0.40 K/uL Eosinophils # (Auto) 0.03 K/uL Basophils # (Auto) 0.01 K/uL RDW Standard Deviation 53.4 fL RDW Coefficient of Variation 17.7 % Immature Granulocyte % (Auto) 0.3 % Immature Granulocyte # (Auto) 0.01 K/uL Red Blood Cell Morphology Unremarkable Prothrombin Time 13.4 SECONDS Prothromb Time International Ratio 1.2 Activated Partial Thromboplast Time 31.5 SECONDS Partial Thromboplastin Ratio 1.2 Sodium Level 141 mmol/L Potassium Level 5.0 mmol/L Chloride Level 110 mmol/L Carbon Dioxide Level 24 mmol/L Anion Gap 7.0 mmol/L Blood Urea Nitrogen 35 mg/dl Creatinine 2.70 mg/dl Est Creatinine Clear Calc Drug Dose 25.6 ml/min Estimated GFR () 23.5 Estimated GFR (Non- 20.3 BUN/Creatinine Ratio 12.8 Random Glucose 112 mg/dl Calcium Level 7.9 mg/dl Magnesium Level 2.4 mg/dl Total Bilirubin 0.6 mg/dl Direct Bilirubin 0.2 mg/dl Aspartate Amino Transf (AST/SGOT) 31 U/L Alanine Aminotransferase (ALT/SGPT) 18 U/L Alkaline Phosphatase 95 U/L Troponin I 0.023 ng/ml Pro-B-Type Natriuretic Peptide 6705 pg/ml Total Protein 6.2 gm/dl Albumin 1.9 gm/dl Lipase 90 U/L Urine Color YELLOW Urine Appearance CLEAR Urine pH 5.0 Urine Specific [place] 1.019 Urine Protein NEG Urine Glucose (UA) NEG Urine Ketones NEG Urine Occult Blood NEG Urine Nitrite NEG Urine Bilirubin NEG Urine Urobilinogen NEG Urine Leukocyte Esterase NEG Urine WBC (Auto) 1-5 /hpf Urine RBC (Auto) 0-4 /hpf Urine Hyaline Casts (Auto) 5-10 /lpf Urine Epithelial Cells (Auto) 5-10 /lpf Urine Bacteria (Auto) NEG Peritoneal Fluid Color YELLOW Peritoneal Fluid Appearance CLOUDY Peritoneal Fluid WBC 138 /uL Peritoneal Fluid RBC < 3000 /uL Peritoneal Fld Mononuclear WBCs (%) 85.6 % Peritoneal Fld Polynuclear WBCs (%) 14.4 % Peritoneal Fluid Total Protein 1.8 g/dl Peritoneal Fluid Albumin 0.7 g/dl Peritoneal Fluid LDH 63 IU Peritoneal Fluid Glucose 127 mg/dl Estimated Average Glucose 131 mg/dl Hemoglobin A1c 6.2 % Lactic Acid Level 1.3 mmol/L Test 02/07/17 05:32 02/07/17 07:28 02/07/17 11:26 White Blood Count 3.05 K/uL Red Blood Count 3.05 M/uL Hemoglobin 7.8 g/dL Hematocrit 25.4 % Mean Corpuscular Volume 83.3 fL Mean Corpuscular Hemoglobin 25.6 pg Mean Corpuscular Hemoglobin Concent 30.7 g/dl Platelet Count 66 K/uL Mean Platelet Volume 9.2 fL Neutrophils (%) (Auto) 73.1 % Lymphocytes (%) (Auto) 8.5 % Monocytes (%) (Auto) 16.4 % Eosinophils (%) (Auto) 1.0 % Basophils (%) (Auto) 0.7 % Neutrophils # (Auto) 2.23 K/uL Lymphocytes # (Auto) 0.26 K/uL Monocytes # (Auto) 0.50 K/uL Eosinophils # (Auto) 0.03 K/uL Basophils # (Auto) 0.02 K/uL RDW Standard Deviation 54.0 fL RDW Coefficient of Variation 17.7 % Immature Granulocyte % (Auto) 0.3 % Immature Granulocyte # (Auto) 0.01 K/uL Hypersegmented Polys 1+ Anisocytosis PRESENT Ovalocytes 1+ Sodium Level 142 mmol/L Potassium Level 5.0 mmol/L Chloride Level 111 mmol/L Carbon Dioxide Level 24 mmol/L Anion Gap 7.0 mmol/L Blood Urea Nitrogen 34 mg/dl Creatinine 2.70 mg/dl Est Creatinine Clear Calc Drug Dose 25.2 ml/min Estimated GFR () 23.5 Estimated GFR (Non- 20.3 BUN/Creatinine Ratio 12.6 Random Glucose 120 mg/dl Calcium Level 8.0 mg/dl Bedside Glucose 124 mg/dl 160 mg/dl Date/Time Source Procedure Growth Status 02/07/17 00:52 Blood Blood Culture Pending Received 02/07/17 00:51 Blood Blood Culture Pending Received 02/07/17 00:15 Stool C.difficile Toxin B Gene (PCR) - Final Positive for C. difficile toxin B gene Complete 02/07/17 00:00 Ascities Fluid Gram Stain - Final Resulted 02/07/17 00:00 Ascities Fluid Bacterial Culture Pending Resulted Assessment & Plan 87 year old male with history of Paroxysmal A fib, DM, CKD, COPD, Cirrhosis presenting with increasing abdominal girth. 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 - s/p Paracentesis, 5 L drained Ascitic fluid studies: PENDING - received Lasix 40mg IV one on usual Lasix 80mg po daily - also on Lactulose TID - monitor Plt 80 --> 66 - monitor crea - GI consulted and Nephro consulted, appreciate the input C DIFF COLITIS - Flagyl started CKD 4 - crea at baseline - monitor while on Lasix MARGINAL BP - asymptomatic monitor - Decrease home beta noman dose by half DM2, insulin requiring well controlled as of recent hemoglobin A1c was 6.2 - continue Lantus and ISS Chronic anemia -- Hg 7.5 monitor hx 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 as per records -- plt 66 monitor sick sinus syndrome status post pacemaker hx HOCM sp myomectomy COPD as per records Pulmo-status at baseline DVT prophylaxis, SCDs RE thrombocytopenia DNR. Dispo currently staying at [facility] Current Inpatient Medications: Current Inpatient Medications Medications (Trade) Dose Ordered Sig/Gin Route Start Time Stop Time Status Last Admin Dose Admin Acetaminophen (Tylenol Tab) 325 mg Q6H PRN PO 02/07/17 00:15 03/09/17 00:14 Insulin Aspart (novoLOG ASPART) SLIDING SCALE If C... ACHS SC 02/07/17 06:30 03/09/17 06:29 Glucose (Glucose 40% Gel) 15-30 GRAMS 15 GRAMS... UD PRN PO 02/07/17 00:15 03/09/17 00:14 Glucose (Glucose Chew Tab) 4-8 Tablets 4 Tabl... UD PRN PO 02/07/17 00:15 03/09/17 00:14 Dextrose (Dextrose 50% 50ML Syringe) 25-50ML OF 50% DW IV FOR... UD PRN IV 02/07/17 00:15 03/09/17 00:14 Glucagon (Glucagon Inj) 1 mg UD PRN SQ 02/07/17 00:15 03/09/17 00:14 Famotidine (Pepcid Tab) 20 mg QPM PO 02/07/17 21:00 03/09/17 20:59 Folic Acid (Folvite Tab) 1 mg DAILY PO 02/07/17 08:00 03/09/17 07:59 02/07/17 07:52 1 MG Furosemide (Lasix Tab) 80 mg DAILY PO 02/07/17 08:00 03/09/17 07:59 Lactulose (Chronulac Syrup) 10 gm TID PO 02/07/17 08:00 03/09/17 07:59 Future Hold 02/07/17 07:54 10 GM Metoprolol Succinate (Toprol Xl Tab) 12.5 mg DAILY PO 02/07/17 08:00 03/09/17 07:59 Nitroglycerin (Nitrostat Tab) 0.4 mg PRN UT 02/07/17 00:15 03/09/17 00:14 Pantoprazole Sodium (Protonix Tab) 40 mg DAILY PO 02/07/17 08:00 03/09/17 07:59 02/07/17 07:54 40 MG Insulin Glargine (Lantus Solostar Pen) 5 units DAILY SQ 02/07/17 08:00 03/09/17 07:59 02/07/17 07:45 5 UNITS Hydromorphone HCl (Dilaudid Inj) 0.5 mg Q3H PRN IV 02/07/17 00:15 02/21/17 00:14 Tramadol HCl (Ultram Tab) not relieved by tylenol @ Q6H PRN PO 02/07/17 00:15 03/09/17 00:14 Albuterol/ Ipratropium (Duoneb) 3 ml Q2H PRN INH 02/07/17 00:15 03/09/17 00:14 Ondansetron HCl (Zofran Inj) 4 mg Q6H PRN IV 02/07/17 00:15 03/09/17 00:14 Vancomycin HCl (Vancomycin Oral Soln) 125 mg QID PO 02/07/17 17:00 02/21/17 16:59 Furosemide 40 mg/ Albumin Human 54 ml @ 54 mls/hr BID IV 02/07/17 20:00 02/09/17 19:59 Raspberry (Raspberry Syrup 5ml Cup) 5 ml QID PO 02/07/17 17:00 02/21/17 16:59
[2017-02-07] MEDS: RASPBERRY SYRUP 5 ML UDP PO SCH ×2 (17:06→20:33)
[2017-02-07] MEDS: VANCOMYCIN HCL 125 MG/2.5ML SOLN PO SCH ×2 (17:07→20:33)
[2017-02-07] MEDS: ALBUMIN 25% 50 ML with FUROSEMIDE INJ 40 MG IV SCH ×2 (20:27)
[2017-02-07] MEDS: FAMOTIDINE 20 MG TAB PO SCH (20:28)
[2017-02-08 00:15] VITALS: O2SAT 99
[2017-02-08 05:45] LABS: HEMATOCRIT 23.6 % (42-52); MEAN CELL VOLUME 82.5 fL (80-100); MEAN CORPUSCULAR HEMOGLOBIN 25.2 pg (25-34); MEAN CORPUSCULAR HGB CONC 30.5 g/dl (32-36); RED BLOOD COUNT 2.86 M/uL (4.7-6.1); WHITE BLOOD COUNT 2.52 K/uL (4.8-10.8)
[2017-02-08 05:48] LABS: MEAN PLATELET VOLUME 8.8 fL (7.4-10.4); PLATELET COUNT 61 K/uL (130-400)
[2017-02-08 06:18] LABS: BUN/CREATININE RATIO 12.4 (10-20); CALCIUM 7.6 mg/dl (8.5-10.1); CREATININE 2.7 mg/dl (0.60-1.40); POTASSIUM 4.9 mmol/L (3.5-5.1)
[2017-02-08] MEDS: INSULIN ASPART 100 UNITS/ML 3 ML PEN SC SCH ×4 (06:30→21:09)
[2017-02-08 06:31] LABS: BASO % 0.4 %; BASO ABS # 0.01 K/uL (0-0.2); COMPLETE YES; LYMPH % 9.9 %; LYMPH ABS # 0.25 K/uL (1.2-3.4); MONO % 15.1 %; NEUT % 72.6 %; OVALOCYTES 1+
[2017-02-08] MEDS: METOPROLOL SUCC 25MG EXT REL TAB PO SCH (08:00)
--- NOTE | 2017-02-08 08:01 | Clinical Documentation Query ---
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 Documentation includes "chronic anemia" and notes platelets of 66 in the context of 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. Additionally, noted to be leukopenic. As appropriate, consider documentation as suggested below in order to capture the severity of illness associated with this condition. He is being monitored with serial hematology. In your clinical opinion is this patient being managed for: ( ) Pancytopenia secondary to MDS ( ) Not Agree ( X) Other explanation of clinical findings (Please Explain) Pancytopenia possibly from MDS ( ) Unable to determine (Please Define) ( ) Need to Discuss The medical record reflects the following clinical findings, treatment, and risk factors. Clinical Indicators: As above Treatment:monitored with serial hematology Risk Factors: MDS, age Please clarify and document your clinical opinion in the progress notes and discharge summary. Terms such as "probable", "suspected", "likely", "questionable", "possible", or "still to be ruled out" are acceptable. IF IN AGREEMENT, YOU MUST DOCUMENT ABOVE DIAGNOSTIC STATEMENT IN DAILY PROGRESS NOTES AND DISCHARGE SUMMARY. This document is not part of the patient's record. Thank You, Nathan Adkins, SLOAN [phone]
[2017-02-08 08:56] VITALS: BP 96/62; PULSE 82; TEMP 37.2
[2017-02-08] MEDS: ALBUMIN 25% 50 ML with FUROSEMIDE INJ 40 MG IV SCH ×4 (09:19→19:56)
[2017-02-08] MEDS: PANTOprazole SOD 40 MG TAB PO SCH (09:20)
[2017-02-08] MEDS: FUROSEMIDE 80 MG TAB PO SCH (09:20)
[2017-02-08] MEDS: INSULIN GLARGINE SOLOSTAR 100 UNITS/ML 3 ML PEN SQ SCH (09:22)
[2017-02-08] MEDS: VANCOMYCIN HCL 125 MG/2.5ML SOLN PO SCH ×4 (09:34→20:00)
[2017-02-08] MEDS: RASPBERRY SYRUP 5 ML UDP PO SCH ×4 (09:34→20:00)
--- NOTE | 2017-02-08 09:40 | Progress Note ---
Medicine Progress Note Date & Time of Visit: Feb 08, 2017 at 09:35. Subjective patient seen resting in bedside chair, alert, in good spirits, comfortable denies abdominal pain, nausea, dyspnea stools have been formed as per RN denies bleeding no confusion no changes with urination no other symptoms Objective Last 8 Hrs Date Time Temp Pulse Resp B/P (MAP) Pulse Ox O2 Delivery O2 Flow Rate FiO2 02/08/17 08:59 Room Air 02/08/17 08:56 37.2 82 20 96/62 (73) Physical Exam: General-oriented x 2, not in distress, speaks in sentences with no effort Eyes- anicteric Neck- supple, no JVD Lungs-clear breath sounds bilaterally no wheezing, no rhonchi Heart- regular rhythm; no murmur, normal rate Abdomen- moderately distended, normal bowel sounds, soft, nontender Extremities-grade 1 lower leg edema, no calf tenderness Neuro- alert, oriented x 2; no gross focal deficits Skin- warm & dry Laboratory Results: Last 24 Hours Test 02/07/17 11:26 02/07/17 16:28 02/07/17 16:30 02/07/17 20:32 Bedside Glucose 160 mg/dl 174 mg/dl 192 mg/dl 188 mg/dl Test 02/08/17 05:25 02/08/17 07:41 White Blood Count 2.52 K/uL Red Blood Count 2.86 M/uL Hemoglobin 7.2 g/dL Hematocrit 23.6 % Mean Corpuscular Volume 82.5 fL Mean Corpuscular Hemoglobin 25.2 pg Mean Corpuscular Hemoglobin Concent 30.5 g/dl Platelet Count 61 K/uL Mean Platelet Volume 8.8 fL Neutrophils (%) (Auto) 72.6 % Lymphocytes (%) (Auto) 9.9 % Monocytes (%) (Auto) 15.1 % Eosinophils (%) (Auto) 2.0 % Basophils (%) (Auto) 0.4 % Neutrophils # (Auto) 1.83 K/uL Lymphocytes # (Auto) 0.25 K/uL Monocytes # (Auto) 0.38 K/uL Eosinophils # (Auto) 0.05 K/uL Basophils # (Auto) 0.01 K/uL RDW Standard Deviation 53.3 fL RDW Coefficient of Variation 17.5 % Immature Granulocyte % (Auto) 0.0 % Immature Granulocyte # (Auto) 0.00 K/uL Ovalocytes 1+ Sodium Level 142 mmol/L Potassium Level 4.9 mmol/L Chloride Level 110 mmol/L Carbon Dioxide Level 27 mmol/L Anion Gap 5.0 mmol/L Blood Urea Nitrogen 34 mg/dl Creatinine 2.70 mg/dl Est Creatinine Clear Calc Drug Dose 25.2 ml/min Estimated GFR () 23.5 Estimated GFR (Non- 20.3 BUN/Creatinine Ratio 12.4 Random Glucose 145 mg/dl Calcium Level 7.6 mg/dl Bedside Glucose 152 mg/dl Assessment & Plan 87 year old male with history of Paroxysmal A fib, DM, CKD, COPD, Cirrhosis presenting with increasing abdominal girth. 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 - s/p Paracentesis, 5 L drained Ascitic fluid studies: PENDING usually on lasix 80mg po daily lasix IV + albumin BID day 2 weight down 2 kg Monitor response, crea - monitor Plt 80 --> 61 no signs of bleeding monitor - GI consulted and Nephro consulted, appreciate the input C DIFF COLITIS - On Vanco PO Day 2 diarrhea resolved CKD 4 - crea at baseline - stable at 2.7 monitor while on lasix MARGINAL BP - asymptomatic monitor - Decreased home beta noman dose by half DM2, insulin requiring well controlled as of recent hemoglobin A1c was 6.2 - continue Lantus and ISS Chronic anemia -- Hg 7.1 asymptomatic has signs of possible portal hypertension will only transfuse if Hg < 7 monitor Possible Pancytopenia secondary to 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 -- plt 61, Hg 7.1, WBC 2.5 monitor sick sinus syndrome status post pacemaker hx HOCM sp myomectomy COPD as per records Pulmo-status at baseline DVT prophylaxis, SCDs RE thrombocytopenia DNR. Dispo pending eval and management of ascites, pancytopenia in progress currently staying at [facility] Current Inpatient Medications: Current Inpatient Medications Medications (Trade) Dose Ordered Sig/Gin Route Start Time Stop Time Status Last Admin Dose Admin Acetaminophen (Tylenol Tab) 325 mg Q6H PRN PO 02/07/17 00:15 03/09/17 00:14 Insulin Aspart (novoLOG ASPART) SLIDING SCALE If C... ACHS SC 02/07/17 06:30 03/09/17 06:29 02/07/17 20:47 1 UNITS Glucose (Glucose 40% Gel) 15-30 GRAMS 15 GRAMS... UD PRN PO 02/07/17 00:15 03/09/17 00:14 Glucose (Glucose Chew Tab) 4-8 Tablets 4 Tabl... UD PRN PO 02/07/17 00:15 03/09/17 00:14 Dextrose (Dextrose 50% 50ML Syringe) 25-50ML OF 50% DW IV FOR... UD PRN IV 02/07/17 00:15 03/09/17 00:14 Glucagon (Glucagon Inj) 1 mg UD PRN SQ 02/07/17 00:15 03/09/17 00:14 Famotidine (Pepcid Tab) 20 mg QPM PO 02/07/17 21:00 03/09/17 20:59 02/07/17 20:28 20 MG Folic Acid (Folvite Tab) 1 mg DAILY PO 02/07/17 08:00 03/09/17 07:59 02/08/17 09:21 1 MG Lactulose (Chronulac Syrup) 10 gm TID PO 02/07/17 08:00 03/09/17 07:59 Future Hold 02/07/17 07:54 10 GM Metoprolol Succinate (Toprol Xl Tab) 12.5 mg DAILY PO 02/07/17 08:00 03/09/17 07:59 Nitroglycerin (Nitrostat Tab) 0.4 mg PRN UT 02/07/17 00:15 03/09/17 00:14 Pantoprazole Sodium (Protonix Tab) 40 mg DAILY PO 02/07/17 08:00 03/09/17 07:59 02/08/17 09:20 40 MG Insulin Glargine (Lantus Solostar Pen) 5 units DAILY SQ 02/07/17 08:00 03/09/17 07:59 02/08/17 09:22 5 UNITS Hydromorphone HCl (Dilaudid Inj) 0.5 mg Q3H PRN IV 02/07/17 00:15 02/21/17 00:14 Tramadol HCl (Ultram Tab) not relieved by tylenol @ Q6H PRN PO 02/07/17 00:15 03/09/17 00:14 Albuterol/ Ipratropium (Duoneb) 3 ml Q2H PRN INH 02/07/17 00:15 03/09/17 00:14 Ondansetron HCl (Zofran Inj) 4 mg Q6H PRN IV 02/07/17 00:15 03/09/17 00:14 Vancomycin HCl (Vancomycin Oral Soln) 125 mg QID PO 02/07/17 17:00 02/21/17 16:59 02/07/17 20:33 125 MG Furosemide 40 mg/ Albumin Human 54 ml @ 54 mls/hr BID IV 02/07/17 20:00 02/09/17 19:59 02/08/17 09:19 54 MLS/HR Raspberry (Raspberry Syrup 5ml Cup) 5 ml QID PO 02/07/17 17:00 02/21/17 16:59 02/07/17 20:33 5 ML
[2017-02-08 09:41] VITALS: BP 101/65
--- NOTE | 2017-02-08 10:03 | Gastroenterology Progress Note ---
Progress Note Date of Service: Feb 08, 2017 Subjective Pt evaluation today including: conversation w/ patient, physical exam Pt was seen and evaluated, no acute events overnight. Had a BM per nursing staff. Denies any abdominal pain, diarrhea, cramping etc. He tells me he feels well. Paracentesis without evidence of SBP. Review of Systems Constitutional: No fever, No chills Respiratory: No cough Abdomen: No pain, No nausea, No vomiting, No diarrhea Medications Current Inpatient Medications Medications (Trade) Dose Ordered Sig/Gin Route Start Time Stop Time Status Last Admin Dose Admin Acetaminophen (Tylenol Tab) 325 mg Q6H PRN PO 02/07/17 00:15 03/09/17 00:14 Insulin Aspart (novoLOG ASPART) SLIDING SCALE If C... ACHS SC 02/07/17 06:30 03/09/17 06:29 02/07/17 20:47 1 UNITS Glucose (Glucose 40% Gel) 15-30 GRAMS 15 GRAMS... UD PRN PO 02/07/17 00:15 03/09/17 00:14 Glucose (Glucose Chew Tab) 4-8 Tablets 4 Tabl... UD PRN PO 02/07/17 00:15 03/09/17 00:14 Dextrose (Dextrose 50% 50ML Syringe) 25-50ML OF 50% DW IV FOR... UD PRN IV 02/07/17 00:15 03/09/17 00:14 Glucagon (Glucagon Inj) 1 mg UD PRN SQ 02/07/17 00:15 03/09/17 00:14 Famotidine (Pepcid Tab) 20 mg QPM PO 02/07/17 21:00 03/09/17 20:59 02/07/17 20:28 20 MG Folic Acid (Folvite Tab) 1 mg DAILY PO 02/07/17 08:00 03/09/17 07:59 02/08/17 09:21 1 MG Lactulose (Chronulac Syrup) 10 gm TID PO 02/07/17 08:00 03/09/17 07:59 Future Hold 02/07/17 07:54 10 GM Metoprolol Succinate (Toprol Xl Tab) 12.5 mg DAILY PO 02/07/17 08:00 03/09/17 07:59 Nitroglycerin (Nitrostat Tab) 0.4 mg PRN UT 02/07/17 00:15 03/09/17 00:14 Pantoprazole Sodium (Protonix Tab) 40 mg DAILY PO 02/07/17 08:00 03/09/17 07:59 02/08/17 09:20 40 MG Insulin Glargine (Lantus Solostar Pen) 5 units DAILY SQ 02/07/17 08:00 03/09/17 07:59 02/08/17 09:22 5 UNITS Tramadol HCl (Ultram Tab) not relieved by tylenol @ Q6H PRN PO 02/07/17 00:15 03/09/17 00:14 Albuterol/ Ipratropium (Duoneb) 3 ml Q2H PRN INH 02/07/17 00:15 03/09/17 00:14 Ondansetron HCl (Zofran Inj) 4 mg Q6H PRN IV 02/07/17 00:15 03/09/17 00:14 Vancomycin HCl (Vancomycin Oral Soln) 125 mg QID PO 02/07/17 17:00 02/21/17 16:59 02/08/17 09:34 125 MG Furosemide 40 mg/ Albumin Human 54 ml @ 54 mls/hr BID IV 02/07/17 20:00 02/09/17 19:59 02/08/17 09:19 54 MLS/HR Raspberry (Raspberry Syrup 5ml Cup) 5 ml QID PO 02/07/17 17:00 02/21/17 16:59 02/08/17 09:34 5 ML Objective Vital Signs Date Time Temp Pulse Resp B/P (MAP) Pulse Ox O2 Delivery O2 Flow Rate FiO2 02/08/17 09:41 101/65 (77) 02/08/17 08:59 Room Air 02/08/17 08:56 37.2 82 20 96/62 (73) 02/08/17 00:15 99 CPAP 02/07/17 23:35 36.7 93 20 104/64 (77) 97 CPAP 02/07/17 16:00 BiPAP 02/07/17 15:34 36.6 77 20 92/61 (71) 99 02/07/17 13:17 82 02/07/17 11:29 36.7 85 16 95/63 (74) 97 Room Air 02/07/17 11:29 36.7 85 16 95/63 (74) 97 02/07/17 11:02 36.7 73 16 100/62 (75) 99 Room Air 02/07/17 11:01 99 Physical Exam General Appearance: no apparent distress Eyes: PERRL ENT: hearing grossly normal Neck: supple Respiratory/Chest: lungs clear, normal breath sounds Cardiovascular: regular rate, rhythm Abdomen: normal bowel sounds, non tender, soft, no organomegaly, no pulsatile mass Neurologic/Psych: alert, normal mood/affect, oriented x 3 Laboratory Results Last 24 Hours Test 02/07/17 11:26 02/07/17 16:28 02/07/17 16:30 02/07/17 20:32 Bedside Glucose 160 mg/dl 174 mg/dl 192 mg/dl 188 mg/dl Test 02/08/17 05:25 02/08/17 07:41 White Blood Count 2.52 K/uL Red Blood Count 2.86 M/uL Hemoglobin 7.2 g/dL Hematocrit 23.6 % Mean Corpuscular Volume 82.5 fL Mean Corpuscular Hemoglobin 25.2 pg Mean Corpuscular Hemoglobin Concent 30.5 g/dl Platelet Count 61 K/uL Mean Platelet Volume 8.8 fL Neutrophils (%) (Auto) 72.6 % Lymphocytes (%) (Auto) 9.9 % Monocytes (%) (Auto) 15.1 % Eosinophils (%) (Auto) 2.0 % Basophils (%) (Auto) 0.4 % Neutrophils # (Auto) 1.83 K/uL Lymphocytes # (Auto) 0.25 K/uL Monocytes # (Auto) 0.38 K/uL Eosinophils # (Auto) 0.05 K/uL Basophils # (Auto) 0.01 K/uL RDW Standard Deviation 53.3 fL RDW Coefficient of Variation 17.5 % Immature Granulocyte % (Auto) 0.0 % Immature Granulocyte # (Auto) 0.00 K/uL Ovalocytes 1+ Sodium Level 142 mmol/L Potassium Level 4.9 mmol/L Chloride Level 110 mmol/L Carbon Dioxide Level 27 mmol/L Anion Gap 5.0 mmol/L Blood Urea Nitrogen 34 mg/dl Creatinine 2.70 mg/dl Est Creatinine Clear Calc Drug Dose 25.2 ml/min Estimated GFR () 23.5 Estimated GFR (Non- 20.3 BUN/Creatinine Ratio 12.4 Random Glucose 145 mg/dl Calcium Level 7.6 mg/dl Bedside Glucose 152 mg/dl Assessment and Plan Patient is a 87 year old male w/ cirrhosis decompensated by gross ascites and hepatic encephalopathy, unknown if he has esophageal varices who presented to the ED for abdominal distention, weight gain and diarrhea. C.diff positive. Prior to my evaluation this AM had a 5L diagnostic and therapeutic paracentesis , no evidence of SBP. Of note he had a liver biopsy in 2003 for elevated LFTs, with evidence of significant portal and periportal fibrosis with ongoing hepatocyte injury - unknown source. through review of records, does not appear there was any follow up after this biopsy. , kidney function appears at baseline will suggest nephrology consult to aid in aggressive diuresis given acute volume overload and weight gain. 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 Please call with any questions or concerns. ATTESTATION: I have performed a history and physical examination of this patient and reviewed the electronic record. Specifically, on physical examination abdomen is soft and nontender (after paracentesis). I have discussed the case with ARMINDA Rodríguez. The above note reflects my findings, conclusions, and recommendations. Misael Floyd MD
--- NOTE | 2017-02-08 10:04 | NEPHROLOGY CONSULTATION ---
DATE OF CONSULTATION: 02/08/2017 ATTENDING OF RECORD: Dr. Flores. REASON FOR CONSULTATION: CKD with volume overload. HISTORY OF PRESENT ILLNESS: This is an 87-year-old male who I have followed during previous hospitalizations for similar presentations of volume overload with CKD, who has underlying cirrhosis, who underwent a paracentesis on the where they removed 5 liters of fluid. The patient presented with diarrhea and worsening abdominal distention. Abdominal pain is much better today compared to when he came in and appears to have improved after the paracentesis. The patient did have a stool sample sent which was positive for C. diff, but since then has not had diarrhea. He did have a formed stool which did not have the odor of C. diff. The patient is comfortable, does have chronic edema in his legs, although has been much worse during the previous hospitalizations. The patient is pleasant, although lacks a complete understanding and insight into his medical problems. The patient's creatinine during this admission has been at 2.7 with an albumin of 1.9 and a UA that is bland. The patient with signs of pancytopenia with a white count of 2.5, hemoglobin of 7, and platelet count of 61. PAST MEDICAL HISTORY: CKD stage IV, which varies based on volume status, cirrhosis, congestive heart failure, history of bladder cancer, history of 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, COPD, sleep apnea on CPAP. PAST SURGICAL HISTORY: Pacemaker, bladder surgery. FAMILY HISTORY: Significant for heart disease. SOCIAL HISTORY: Former smoker, no alcohol, no drugs. REVIEW OF SYSTEMS: Positive abdominal pain which has improved. Positive edema in legs which is chronic. Positive shortness of breath with exertion. Positive fatigue. Positive diarrhea which has improved. Denies fevers, denies headaches. Denies blurry vision. Denies dysphagia. All other review of systems otherwise negative. CURRENT MEDICATIONS: Pepcid 20 mg at night, Lasix with albumin 40 mg IV b.i.d., vancomycin 125 p.o. q.i.d. raspberry 5 mL p.o. q.i.d., folic acid 1 mg daily, Lasix 80 mg daily, Toprol-XL 12.5 mg daily, Protonix 40 mg daily, Lantus 5 units subQ daily, sliding scale insulin. PHYSICAL EXAMINATION: VITAL SIGNS: Temperature 36.7, pulse 93, respiratory rate 20, blood pressure is 104/64, has been in the 90s to low 100s during this hospitalization. Satting 99% on CPAP. GENERAL: Awake, alert, oriented x3. EYES: No scleral icterus. ENT: Moist mucous membranes. NECK: Supple. PULMONARY: Decreased breath sounds at the bases. CARDIAC: Regular. ABDOMEN: Bowel sounds positive, soft, mildly distended, nontender. EXTREMITIES: +2 pitting edema bilaterally. NEUROLOGICALLY: Nonfocal. DERMATOLOGIC: No rash or ulcers noted. LABORATORIES: White count is 2.5. H&H is 7.2 and 23.6, platelet count 61,000. Sodium is 142, potassium is 5, chloride is 111, bicarbonate is 24, BUN is 34, creatinine is 2.7. Hemoglobin A1c 6.2, lactic acid is 1.3, calcium is 8. UA is bland with a pH of 5, specific gravity 1.019, negative blood, 1-5 WBCs, negative nitrite, negative leuk esterase. Blood cultures are pending. C. diff was positive. ASSESSMENT AND PLAN: 1. Chronic kidney disease stage IV, creatinine does tend to vary significantly in this patient with underlying cirrhosis and advanced age with a chronic volume overload. Currently on albumin with Lasix t.i.d. During previous admissions, we have titrated up the diuretics aggressively with no benefit to the volume removal. Based on the I's and O's in the past, has not been able to remove fluid despite using metolazone and high dose albumin with Lasix. However, we will continue on the current dose of albumin and Lasix for now and consider adding metolazone to the treatment. We will discuss further though with the primary hospitalist before making any changes. The patient during previous admissions has had a palliative medicine consult and at that time, family was not ready to make any significant decisions. The patient overall looks symptomatically improved compared to admission with abdominal pain that has improved. No diarrhea with formed stools, now on oral vancomycin with raspberry syrup for his C. diff and therapeutic paracentesis, which has improved his abdominal pain. The creatinine is relatively stable for this man and I would continue the current diuretics with the possibility of adding metolazone. I will discuss further with the hospitalist as well as GI to get their opinions on levels of aggressiveness for diuresis. In the past have been unfortunately unsuccessful with removing significant amounts of fluid on this patient despite our best efforts. Overall, poor prognosis. The patient is relatively stable, but would entertain the idea of palliative medicine given the long-term prognosis is quite poor. I appreciate consultation.
--- NOTE | 2017-02-08 10:56 | DIAGNOSTIC IMAGING REPORT ---
KUB CLINICAL HISTORY: C. difficile colitis. FINDINGS: 3 AP supine abdominal radiographs are compared to study dated 02/07/2017 and correlated with abdominal CT dated 02/06/2017. Cholecystectomy clips are noted. There is a nonobstructed abdominal bowel gas pattern. There is no significant colonic distention. The colon measures up to 6.5 cm. No evidence of intraperitoneal free air is seen on these supine views. Pelvic phleboliths are observed. Cardiomegaly and cardiac pacemaker leads are present in the lower chest. The skeletal structures are osteopenic. Moderate lumbosacral spondylosis is observed. IMPRESSION: Nonobstructed abdominal bowel gas pattern. Electronically signed by: Khoa Castro M.D. 02/08/2017 10:54 AM Dictated Date/Time: 02/08/2017 10:52 AM
--- NOTE | 2017-02-08 13:08 | DIAGNOSTIC IMAGING REPORT ---
KUB CLINICAL HISTORY: Abdominal pain, C. difficile, constipation. COMPARISON STUDY: CT scan dated 02/06/2017 FINDINGS: There is mild gaseous prominence of the colon which measures 8 cm at the mid transverse level. There are no transition zones to indicate bowel obstruction. IMPRESSION: 1. No evidence of bowel obstruction 2. The transverse colon measures 8 cm in diameter, uncorrected for magnification. Electronically signed by: Gurinder Medina M.D. 02/08/2017 1:07 PM Dictated Date/Time: 02/07/2017 2:02 PM
[2017-02-08 15:25] VITALS: BP 110/72; PULSE 80; TEMP 37.2; O2SAT 96
[2017-02-08 15:33] VITALS: O2SAT 96
[2017-02-08] MEDS: LACTULOSE SYRUP 30 GM/45 ML UDP PO SCH (20:00)
[2017-02-08] MEDS: FAMOTIDINE 20 MG TAB PO SCH (21:05)
[2017-02-09] VITALS (8 sets, daily range): BP systolic 91–103; BP diastolic 58–64; PULSE 81–108; TEMP 36.5–36.6; O2SAT 93–99
[2017-02-09 06:39] LABS: HEMATOCRIT 23.2 % (42-52); MEAN CORPUSCULAR HEMOGLOBIN 25.1 pg (25-34); MEAN CORPUSCULAR HGB CONC 30.6 g/dl (32-36); RED BLOOD COUNT 2.83 M/uL (4.7-6.1); WHITE BLOOD COUNT 2.37 K/uL (4.8-10.8)
[2017-02-09 06:40] LABS: MEAN PLATELET VOLUME 8.8 fL (7.4-10.4); PLATELET COUNT 55 K/uL (130-400)
[2017-02-09] MEDS: INSULIN ASPART 100 UNITS/ML 3 ML PEN SC SCH ×4 (07:37→21:24)
[2017-02-09 07:38] LABS: BUN/CREATININE RATIO 12.9 (10-20); CALCIUM 7.7 mg/dl (8.5-10.1); CREATININE 2.5 mg/dl (0.60-1.40)
[2017-02-09 07:44] LABS: ANISOCYTOSIS PRESENT; BASO % 0.8 %; BASO ABS # 0.02 K/uL (0-0.2); COMPLETE YES; IG% 0.4 %; LYMPH % 11.8 %; LYMPH ABS # 0.28 K/uL (1.2-3.4); MONO % 13.1 %; NEUT % 70.9 %; OVALOCYTES 1+; POLYCHROMASIA 1+
[2017-02-09] MEDS: INSULIN GLARGINE SOLOSTAR 100 UNITS/ML 3 ML PEN SQ SCH (07:47)
[2017-02-09] MEDS: RASPBERRY SYRUP 5 ML UDP PO SCH ×4 (07:58→20:25)
[2017-02-09] MEDS: METOPROLOL SUCC 25MG EXT REL TAB PO SCH (07:59)
[2017-02-09] MEDS: LACTULOSE SYRUP 30 GM/45 ML UDP PO SCH ×2 (07:59→20:25)
[2017-02-09] MEDS: ALBUMIN 25% 50 ML with FUROSEMIDE INJ 40 MG IV SCH ×2 (08:00)
[2017-02-09] MEDS: PANTOprazole SOD 40 MG TAB PO SCH (08:01)
[2017-02-09] MEDS: VANCOMYCIN HCL 125 MG/2.5ML SOLN PO SCH ×4 (08:03→20:25)
[2017-02-09] MEDS ORDERED: INFLUENZA VACCINE HIGH DOSE 65+ 0.5 ML SYR IM. ONE (10:15)
[2017-02-09] MEDS ORDERED: INFLUENZA ADMINISTRATION CHARGE ONE (10:15)
--- NOTE | 2017-02-09 17:16 | Progress Note ---
Medicine Progress Note Date & Time of Visit: Feb 09, 2017 at 17:09. Subjective patient seen resting in bedside chair comfortable, smiling denies abdominal pain, nausea, fever/chills denies shortness of breath reports leg swelling seems to be increasing no other symptoms Objective Last 8 Hrs Date Time Temp Pulse Resp B/P (MAP) Pulse Ox O2 Delivery O2 Flow Rate FiO2 02/09/17 15:05 36.5 93 18 92/59 (70) 99 Room Air 02/09/17 11:07 36.6 87 16 95/63 (74) 98 Room Air 02/09/17 10:27 36.5 84 16 95/61 (72) 93 Room Air 02/09/17 10:08 93 Room Air Physical Exam: General-oriented x 2, not in distress, speaks in sentences with no effort Eyes- anicteric Neck- no JVD Lungs-clear breath sounds bilaterally no wheezing, no rhonchi Heart- regular rhythm; no murmur, normal rate Abdomen- (+) distended, normal bowel sounds, soft, nontender Extremities-grade 2 lower leg edema, no calf tenderness Neuro- alert, oriented x 2; no gross focal deficits Skin- warm & dry Laboratory Results: Last 24 Hours Test 02/08/17 20:28 02/09/17 06:21 02/09/17 07:20 02/09/17 11:49 Bedside Glucose 196 mg/dl 127 mg/dl 184 mg/dl White Blood Count 2.37 K/uL Red Blood Count 2.83 M/uL Hemoglobin 7.1 g/dL Hematocrit 23.2 % Mean Corpuscular Volume 82.0 fL Mean Corpuscular Hemoglobin 25.1 pg Mean Corpuscular Hemoglobin Concent 30.6 g/dl Platelet Count 55 K/uL Mean Platelet Volume 8.8 fL Neutrophils (%) (Auto) 70.9 % Lymphocytes (%) (Auto) 11.8 % Monocytes (%) (Auto) 13.1 % Eosinophils (%) (Auto) 3.0 % Basophils (%) (Auto) 0.8 % Neutrophils # (Auto) 1.68 K/uL Lymphocytes # (Auto) 0.28 K/uL Monocytes # (Auto) 0.31 K/uL Eosinophils # (Auto) 0.07 K/uL Basophils # (Auto) 0.02 K/uL RDW Standard Deviation 53.6 fL RDW Coefficient of Variation 17.6 % Immature Granulocyte % (Auto) 0.4 % Immature Granulocyte # (Auto) 0.01 K/uL Polychromasia 1+ Anisocytosis PRESENT Ovalocytes 1+ Sodium Level 141 mmol/L Potassium Level 4.0 mmol/L Chloride Level 109 mmol/L Carbon Dioxide Level 24 mmol/L Anion Gap 8.0 mmol/L Blood Urea Nitrogen 32 mg/dl Creatinine 2.50 mg/dl Est Creatinine Clear Calc Drug Dose 26.8 ml/min Estimated GFR () 25.8 Estimated GFR (Non- 22.3 BUN/Creatinine Ratio 12.9 Random Glucose 133 mg/dl Calcium Level 7.7 mg/dl Test 02/09/17 16:23 Bedside Glucose 158 mg/dl Assessment & Plan 87 year old male with history of Paroxysmal A fib, DM, CKD, COPD, Cirrhosis presenting with increasing abdominal girth. 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 - s/p Paracentesis, 5 L drained Ascitic fluid studies: no growth, no tumor cells usually on lasix 80mg po daily lasix IV + albumin BID day 3 weight down by 10 kg 02/09: (+) increased abdominal girth today repeat paracentesis ordered - monitor Plt 80 --> 55 no signs of bleeding monitor - GI consulted and Nephro consulted, appreciate the input C DIFF COLITIS - On Vanco PO Day 3 diarrhea resolved CKD 4 - crea at baseline - stable at 2.7 monitor while on lasix MARGINAL BP - asymptomatic monitor - Decreased home beta noman dose by half DM2, insulin requiring well controlled as of recent hemoglobin A1c was 6.2 - continue Lantus and ISS Chronic anemia -- Hg 7.1 asymptomatic has signs of possible portal hypertension will only transfuse if Hg < 7 monitor Possible Pancytopenia secondary to 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 -- counts trending down will consult Hematology if this persists tomorrow sick sinus syndrome status post pacemaker hx HOCM sp myomectomy COPD as per records Pulmo-status at baseline DVT prophylaxis, SCDs RE thrombocytopenia DNR. Dispo pending eval and management of ascites, pancytopenia in progress currently staying at [facility] Current Inpatient Medications: Current Inpatient Medications Medications (Trade) Dose Ordered Sig/Gni Route Start Time Stop Time Status Last Admin Dose Admin Acetaminophen (Tylenol Tab) 325 mg Q6H PRN PO 02/07/17 00:15 03/09/17 00:14 Insulin Aspart (novoLOG ASPART) SLIDING SCALE If C... ACHS SC 02/07/17 06:30 03/09/17 06:29 02/09/17 12:23 1 UNITS Glucose (Glucose 40% Gel) 15-30 GRAMS 15 GRAMS... UD PRN PO 02/07/17 00:15 03/09/17 00:14 Glucose (Glucose Chew Tab) 4-8 Tablets 4 Tabl... UD PRN PO 02/07/17 00:15 03/09/17 00:14 Dextrose (Dextrose 50% 50ML Syringe) 25-50ML OF 50% DW IV FOR... UD PRN IV 02/07/17 00:15 03/09/17 00:14 Glucagon (Glucagon Inj) 1 mg UD PRN SQ 02/07/17 00:15 03/09/17 00:14 Famotidine (Pepcid Tab) 20 mg QPM PO 02/07/17 21:00 03/09/17 20:59 02/08/17 21:05 20 MG Folic Acid (Folvite Tab) 1 mg DAILY PO 02/07/17 08:00 03/09/17 07:59 02/09/17 07:59 1 MG Lactulose (Chronulac Syrup) 10 gm TID PO 02/07/17 08:00 03/09/17 07:59 Future Hold 02/07/17 07:54 10 GM Metoprolol Succinate (Toprol Xl Tab) 12.5 mg DAILY PO 02/07/17 08:00 03/09/17 07:59 Nitroglycerin (Nitrostat Tab) 0.4 mg PRN UT 02/07/17 00:15 03/09/17 00:14 Pantoprazole Sodium (Protonix Tab) 40 mg DAILY PO 02/07/17 08:00 03/09/17 07:59 02/09/17 08:01 40 MG Insulin Glargine (Lantus Solostar Pen) 5 units DAILY SQ 02/07/17 08:00 03/09/17 07:59 02/09/17 07:47 5 UNITS Tramadol HCl (Ultram Tab) not relieved by tylenol @ Q6H PRN PO 02/07/17 00:15 03/09/17 00:14 Albuterol/ Ipratropium (Duoneb) 3 ml Q2H PRN INH 02/07/17 00:15 03/09/17 00:14 Ondansetron HCl (Zofran Inj) 4 mg Q6H PRN IV 02/07/17 00:15 03/09/17 00:14 Vancomycin HCl (Vancomycin Oral Soln) 125 mg QID PO 02/07/17 17:00 02/21/17 16:59 02/09/17 12:19 125 MG Furosemide 40 mg/ Albumin Human 54 ml @ 54 mls/hr BID IV 02/07/17 20:00 02/09/17 19:59 02/09/17 08:00 54 MLS/HR Raspberry (Raspberry Syrup 5ml Cup) 5 ml QID PO 02/07/17 17:00 02/21/17 16:59 02/09/17 12:18 5 ML Lactulose (Chronulac Syrup) 30 gm BID PO 02/08/17 20:00 03/10/17 19:59 02/09/17 07:59 30 GM
[2017-02-09] MEDS: FAMOTIDINE 20 MG TAB PO SCH (20:26)
[2017-02-10] VITALS (8 sets, daily range): BP systolic 80–106; BP diastolic 51–63; PULSE 77–93; TEMP 36.4–36.8; O2SAT 92–100
[2017-02-10] MEDS: ALBUMIN HUMAN 25% 12.5 GM/50 ML VIAL IV SCH ×3 (06:13→20:09)
[2017-02-10 07:09] LABS: INR 1.3 (0.9-1.1); PARTIAL THROMBOPLASTIN RATIO 1.2; PROTHROMBIN TIME (PATIENT) 14.3 SECONDS (9.0-12.0)
[2017-02-10 07:13] LABS: HEMATOCRIT 22.7 % (42-52); MEAN CELL VOLUME 81.1 fL (80-100); MEAN CORPUSCULAR HEMOGLOBIN 26.1 pg (25-34); MEAN CORPUSCULAR HGB CONC 32.2 g/dl (32-36); PLATELET COUNT 62 K/uL (130-400); WHITE BLOOD COUNT 2.82 K/uL (4.8-10.8)
[2017-02-10 07:34] LABS: BUN/CREATININE RATIO 12.5 (10-20); CALCIUM 8.1 mg/dl (8.5-10.1); CREATININE 2.6 mg/dl (0.60-1.40); POTASSIUM 4.3 mmol/L (3.5-5.1)
[2017-02-10 07:50] LABS: ANISOCYTOSIS PRESENT; BASO % 0.4 %; BASO ABS # 0.01 K/uL (0-0.2); COMPLETE YES; EOS % 2.1 %; LYMPH % 8.9 %; LYMPH ABS # 0.25 K/uL (1.2-3.4); MONO % 15.6 %; OVALOCYTES 1+
[2017-02-10] MEDS: METOPROLOL SUCC 25MG EXT REL TAB PO SCH (08:00)
[2017-02-10] MEDS: PANTOprazole SOD 40 MG TAB PO SCH (08:41)
[2017-02-10] MEDS: VANCOMYCIN HCL 125 MG/2.5ML SOLN PO SCH ×4 (08:41→20:10)
[2017-02-10] MEDS: LACTULOSE SYRUP 30 GM/45 ML UDP PO SCH ×2 (08:41→20:10)
[2017-02-10] MEDS: RASPBERRY SYRUP 5 ML UDP PO SCH ×4 (08:41→20:11)
[2017-02-10] MEDS: INSULIN ASPART 100 UNITS/ML 3 ML PEN SC SCH ×4 (08:42→21:31)
[2017-02-10] MEDS: INSULIN GLARGINE SOLOSTAR 100 UNITS/ML 3 ML PEN SQ SCH (08:44)
--- NOTE | 2017-02-10 11:02 | Gastroenterology Progress Note ---
Progress Note Date of Service: Feb 10, 2017 Subjective Pt not in room - will evaluate during rounds. Pt was evaluated at 1150. He just returned from paracentesis. 3L off. Tells me his symptoms are unchanged. He is not having any abdominal pain. No discomfort. Moving his bowels and passing gas. Stools are formed. On vanco. Back on lactulose, he tells me he can feel gassy at times, but symptoms are transient. Currently no abdominal pressure or cramping. RN tells me has been having issues with urination. Hospitalist aware. Bladder scan this AM 800cc, 150 cc urination with straight cath after of w/ 300 cc. Pt tells me he does not feel like he has to pee. Review of Systems Constitutional: No fever, No chills Respiratory: No cough, No shortness of breath Cardiac: No chest pain, No edema Abdomen: No pain, No nausea, No vomiting, No diarrhea, No constipation, No GI bleeding Medications Current Inpatient Medications Medications (Trade) Dose Ordered Sig/Gin Route Start Time Stop Time Status Last Admin Dose Admin Acetaminophen (Tylenol Tab) 325 mg Q6H PRN PO 02/07/17 00:15 03/09/17 00:14 Insulin Aspart (novoLOG ASPART) SLIDING SCALE If C... ACHS SC 02/07/17 06:30 03/09/17 06:29 02/09/17 21:24 2 UNITS Glucose (Glucose 40% Gel) 15-30 GRAMS 15 GRAMS... UD PRN PO 02/07/17 00:15 03/09/17 00:14 Glucose (Glucose Chew Tab) 4-8 Tablets 4 Tabl... UD PRN PO 02/07/17 00:15 03/09/17 00:14 Dextrose (Dextrose 50% 50ML Syringe) 25-50ML OF 50% DW IV FOR... UD PRN IV 02/07/17 00:15 03/09/17 00:14 Glucagon (Glucagon Inj) 1 mg UD PRN SQ 02/07/17 00:15 03/09/17 00:14 Famotidine (Pepcid Tab) 20 mg QPM PO 02/07/17 21:00 03/09/17 20:59 02/09/17 20:26 20 MG Folic Acid (Folvite Tab) 1 mg DAILY PO 02/07/17 08:00 03/09/17 07:59 02/10/17 08:41 1 MG Lactulose (Chronulac Syrup) 10 gm TID PO 02/07/17 08:00 03/09/17 07:59 Future Hold 02/07/17 07:54 10 GM Metoprolol Succinate (Toprol Xl Tab) 12.5 mg DAILY PO 02/07/17 08:00 03/09/17 07:59 Nitroglycerin (Nitrostat Tab) 0.4 mg PRN UT 02/07/17 00:15 03/09/17 00:14 Pantoprazole Sodium (Protonix Tab) 40 mg DAILY PO 02/07/17 08:00 03/09/17 07:59 02/10/17 08:41 40 MG Insulin Glargine (Lantus Solostar Pen) 5 units DAILY SQ 02/07/17 08:00 03/09/17 07:59 02/10/17 08:44 5 UNITS Tramadol HCl (Ultram Tab) not relieved by tylenol @ Q6H PRN PO 02/07/17 00:15 03/09/17 00:14 Albuterol/ Ipratropium (Duoneb) 3 ml Q2H PRN INH 02/07/17 00:15 03/09/17 00:14 Ondansetron HCl (Zofran Inj) 4 mg Q6H PRN IV 02/07/17 00:15 03/09/17 00:14 Vancomycin HCl (Vancomycin Oral Soln) 125 mg QID PO 02/07/17 17:00 02/21/17 16:59 02/10/17 08:41 125 MG Raspberry (Raspberry Syrup 5ml Cup) 5 ml QID PO 02/07/17 17:00 02/21/17 16:59 02/10/17 08:41 5 ML Lactulose (Chronulac Syrup) 30 gm BID PO 02/08/17 20:00 03/10/17 19:59 02/10/17 08:41 30 GM Albumin Human (Albumin 25%) 25 gm TODAY@0700,1000 IV 02/10/17 07:00 02/10/17 18:00 02/10/17 06:13 25 GM Objective Vital Signs Date Time Temp Pulse Resp B/P (MAP) Pulse Ox O2 Delivery O2 Flow Rate FiO2 02/10/17 10:23 93/61 (72) 02/10/17 08:39 36.4 93 18 86/51 (63) 94 Room Air 02/10/17 07:28 36.8 89 20 80/58 (65) 100 BiPAP 3.0 02/10/17 00:00 BiPAP 02/09/17 23:04 36.5 88 20 93/59 (70) 99 CPAP 02/09/17 20:00 Room Air 02/09/17 15:05 36.5 93 18 92/59 (70) 99 Room Air 02/09/17 11:07 36.6 87 16 95/63 (74) 98 Room Air Physical Exam General Appearance: no apparent distress Eyes: PERRL ENT: hearing grossly normal Neck: supple Respiratory/Chest: lungs clear Cardiovascular: regular rate, rhythm Abdomen: normal bowel sounds, soft, no organomegaly, no pulsatile mass, + distended (distended) Neurologic/Psych: alert, normal mood/affect, oriented x 3 Skin: normal color Laboratory Results Last 24 Hours Test 02/09/17 11:49 02/09/17 16:23 02/09/17 20:39 02/10/17 06:35 Bedside Glucose 184 mg/dl 158 mg/dl 250 mg/dl White Blood Count 2.82 K/uL Red Blood Count 2.80 M/uL Hemoglobin 7.3 g/dL Hematocrit 22.7 % Mean Corpuscular Volume 81.1 fL Mean Corpuscular Hemoglobin 26.1 pg Mean Corpuscular Hemoglobin Concent 32.2 g/dl Platelet Count 62 K/uL Mean Platelet Volume 9.0 fL Neutrophils (%) (Auto) 73.0 % Lymphocytes (%) (Auto) 8.9 % Monocytes (%) (Auto) 15.6 % Eosinophils (%) (Auto) 2.1 % Basophils (%) (Auto) 0.4 % Neutrophils # (Auto) 2.06 K/uL Lymphocytes # (Auto) 0.25 K/uL Monocytes # (Auto) 0.44 K/uL Eosinophils # (Auto) 0.06 K/uL Basophils # (Auto) 0.01 K/uL RDW Standard Deviation 51.5 fL RDW Coefficient of Variation 17.4 % Immature Granulocyte % (Auto) 0.0 % Immature Granulocyte # (Auto) 0.00 K/uL Anisocytosis PRESENT Ovalocytes 1+ Sodium Level 140 mmol/L Potassium Level 4.3 mmol/L Chloride Level 108 mmol/L Carbon Dioxide Level 26 mmol/L Anion Gap 6.0 mmol/L Blood Urea Nitrogen 32 mg/dl Creatinine 2.60 mg/dl Est Creatinine Clear Calc Drug Dose 25.8 ml/min Estimated GFR () 24.6 Estimated GFR (Non- 21.2 BUN/Creatinine Ratio 12.5 Random Glucose 143 mg/dl Calcium Level 8.1 mg/dl Test 02/10/17 06:46 02/10/17 07:45 Prothrombin Time 14.3 SECONDS Prothromb Time International Ratio 1.3 Activated Partial Thromboplast Time 32.4 SECONDS Partial Thromboplastin Ratio 1.2 Bedside Glucose 145 mg/dl Assessment and Plan Patient is a 87 year old male w/ cirrhosis decompensated by gross ascites and hepatic encephalopathy, unknown if he has esophageal varices who presented to the ED for abdominal distention, weight gain and diarrhea. C.diff positive. Prior to my evaluation this AM had a 5L diagnostic and therapeutic paracentesis , no evidence of SBP. Of note he had a liver biopsy in 2003 for elevated LFTs, with evidence of significant portal and periportal fibrosis with ongoing hepatocyte injury - unknown source. through review of records, does not appear there was any follow up after this biopsy. Kidney function appears at baseline will suggest nephrology consult to aid in aggressive diuresis given acute volume overload and weight gain. Nephrology evaluation w/ no change in diuresis , pt was at baseline at time of examination. Per RN, pt now with decreased urine output, bladder scan with 800 cc, 150cc urination this am w/ straight cath 300 cc after. Plan C.Diff - Stop Flagyl - Vancomycin 125 mg QID x 10 days Cirrhosis - follow up paracentesis fluid studies - Lactulose 10 gm TID PRN constipation - BUN/INORGANIC CHEMIST appear at baseline - Albumin 25% w/ 40 lasix BID - Continue present dosing of diuretics - Re-consult nephrology for fluid overload, oliguria - Low NA diet, less than 2G daily - Daily weights GI to sign off. Please call with any questions or concerns. ATTESTATION: I have performed a history and physical examination of this patient and reviewed the electronic record. Specifically, on physical examination. abdomen is distended I have discussed the case with ARMINDA Rodríguez. The above note reflects my findings, conclusions, and recommendations. Misael Floyd MD
--- NOTE | 2017-02-10 12:02 | DIAGNOSTIC IMAGING REPORT ---
PARACENTESIS UNDER ULTRASOUND GUIDANCE CLINICAL HISTORY: Cirrhosis and ascites. COMPARISON STUDY: Abdominal CT dated 02/06/2017. PROCEDURE: The risks, benefits, and alternatives to the procedure were discussed with the patient who voiced understanding. Written informed consent was obtained. Following real-time ultrasound localization of a suitable pocket of fluid in the right lower quadrant, the abdomen was prepped and draped in the usual sterile fashion. The skin and soft tissues were anesthetized with 1% lidocaine. The sheathed paracentesis was inserted and approximately 3 liters of dark ascitic fluid was removed by vacuum suction. The procedure was well tolerated and without immediate complication. The patient left the department in satisfactory condition. IMPRESSION: Successful ultrasound-guided paracentesis with removal of approximately 3 liters of ascitic fluid. Electronically signed by: Khoa Castro M.D. 02/10/2017 12:00 PM Dictated Date/Time: 02/10/2017 11:59 AM
--- NOTE | 2017-02-10 15:49 | Progress Note ---
Medicine Progress Note Date & Time of Visit: Feb 10, 2017 at 15:48. Subjective patient seen resting in bed, comfortable denies abdominal pain, nausea, confusion states he is not urinating that much denies shortness of breath no other symptoms Objective Last 8 Hrs Date Time Temp Pulse Resp B/P (MAP) Pulse Ox O2 Delivery O2 Flow Rate FiO2 02/10/17 13:39 36.7 78 18 101/63 (76) 98 Room Air 02/10/17 12:55 36.6 77 18 94/56 (69) 97 Room Air 02/10/17 11:39 36.7 20 106/58 (74) 100 Room Air 02/10/17 10:23 93/61 (72) 02/10/17 08:39 36.4 93 18 86/51 (63) 94 Room Air Physical Exam: General-oriented x 2, not in distress, speaks in sentences with no effort Eyes- anicteric Neck- no JVD Lungs-clear breath sounds bilaterally no wheezing, no rhonchi Heart- regular rhythm; no murmur, normal rate Abdomen- (+) distended, normal bowel sounds, soft, nontender Extremities-grade 2 lower leg edema, no calf tenderness Neuro- alert, oriented x 2; no gross focal deficits Skin- warm & dry Laboratory Results: Last 24 Hours Test 02/09/17 16:23 02/09/17 20:39 02/10/17 06:35 02/10/17 06:46 Bedside Glucose 158 mg/dl 250 mg/dl White Blood Count 2.82 K/uL Red Blood Count 2.80 M/uL Hemoglobin 7.3 g/dL Hematocrit 22.7 % Mean Corpuscular Volume 81.1 fL Mean Corpuscular Hemoglobin 26.1 pg Mean Corpuscular Hemoglobin Concent 32.2 g/dl Platelet Count 62 K/uL Mean Platelet Volume 9.0 fL Neutrophils (%) (Auto) 73.0 % Lymphocytes (%) (Auto) 8.9 % Monocytes (%) (Auto) 15.6 % Eosinophils (%) (Auto) 2.1 % Basophils (%) (Auto) 0.4 % Neutrophils # (Auto) 2.06 K/uL Lymphocytes # (Auto) 0.25 K/uL Monocytes # (Auto) 0.44 K/uL Eosinophils # (Auto) 0.06 K/uL Basophils # (Auto) 0.01 K/uL RDW Standard Deviation 51.5 fL RDW Coefficient of Variation 17.4 % Immature Granulocyte % (Auto) 0.0 % Immature Granulocyte # (Auto) 0.00 K/uL Anisocytosis PRESENT Ovalocytes 1+ Sodium Level 140 mmol/L Potassium Level 4.3 mmol/L Chloride Level 108 mmol/L Carbon Dioxide Level 26 mmol/L Anion Gap 6.0 mmol/L Blood Urea Nitrogen 32 mg/dl Creatinine 2.60 mg/dl Est Creatinine Clear Calc Drug Dose 25.8 ml/min Estimated GFR () 24.6 Estimated GFR (Non- 21.2 BUN/Creatinine Ratio 12.5 Random Glucose 143 mg/dl Calcium Level 8.1 mg/dl Prothrombin Time 14.3 SECONDS Prothromb Time International Ratio 1.3 Activated Partial Thromboplast Time 32.4 SECONDS Partial Thromboplastin Ratio 1.2 Test 02/10/17 07:45 02/10/17 11:36 Bedside Glucose 145 mg/dl 177 mg/dl Assessment & Plan 87 year old male with history of Paroxysmal A fib, DM, CKD, COPD, Cirrhosis presenting with increasing abdominal girth. 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 - stable monitor while on lasix MARGINAL BP - asymptomatic monitor - Decreased home beta noman dose by half Midodrine PRN DM2, insulin requiring well controlled as of recent hemoglobin A1c was 6.2 - continue Lantus and ISS Chronic anemia -- Hg ~7 asymptomatic has signs of possible portal hypertension will only transfuse if Hg < 7 monitor Possible Pancytopenia secondary to 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 -- counts trending down will consult Hematology if this persists tomorrow sick sinus syndrome status post pacemaker hx HOCM sp myomectomy COPD as per records Pulmo-status at baseline DVT prophylaxis, SCDs RE thrombocytopenia DNR. Dispo pending eval and management of ascites, pancytopenia in progress currently staying at [facility] Current Inpatient Medications: Current Inpatient Medications Medications (Trade) Dose Ordered Sig/Gin Route Start Time Stop Time Status Last Admin Dose Admin Acetaminophen (Tylenol Tab) 325 mg Q6H PRN PO 02/07/17 00:15 03/09/17 00:14 Insulin Aspart (novoLOG ASPART) SLIDING SCALE If C... ACHS SC 02/07/17 06:30 03/09/17 06:29 02/09/17 21:24 2 UNITS Glucose (Glucose 40% Gel) 15-30 GRAMS 15 GRAMS... UD PRN PO 02/07/17 00:15 03/09/17 00:14 Glucose (Glucose Chew Tab) 4-8 Tablets 4 Tabl... UD PRN PO 02/07/17 00:15 03/09/17 00:14 Dextrose (Dextrose 50% 50ML Syringe) 25-50ML OF 50% DW IV FOR... UD PRN IV 02/07/17 00:15 03/09/17 00:14 Glucagon (Glucagon Inj) 1 mg UD PRN SQ 02/07/17 00:15 03/09/17 00:14 Famotidine (Pepcid Tab) 20 mg QPM PO 02/07/17 21:00 03/09/17 20:59 02/09/17 20:26 20 MG Folic Acid (Folvite Tab) 1 mg DAILY PO 02/07/17 08:00 03/09/17 07:59 02/10/17 08:41 1 MG Lactulose (Chronulac Syrup) 10 gm TID PO 02/07/17 08:00 03/09/17 07:59 Future Hold 02/07/17 07:54 10 GM Metoprolol Succinate (Toprol Xl Tab) 12.5 mg DAILY PO 02/07/17 08:00 03/09/17 07:59 Nitroglycerin (Nitrostat Tab) 0.4 mg PRN UT 02/07/17 00:15 03/09/17 00:14 Pantoprazole Sodium (Protonix Tab) 40 mg DAILY PO 02/07/17 08:00 03/09/17 07:59 02/10/17 08:41 40 MG Insulin Glargine (Lantus Solostar Pen) 5 units DAILY SQ 02/07/17 08:00 03/09/17 07:59 02/10/17 08:44 5 UNITS Tramadol HCl (Ultram Tab) not relieved by tylenol @ Q6H PRN PO 02/07/17 00:15 03/09/17 00:14 Albuterol/ Ipratropium (Duoneb) 3 ml Q2H PRN INH 02/07/17 00:15 03/09/17 00:14 Ondansetron HCl (Zofran Inj) 4 mg Q6H PRN IV 02/07/17 00:15 03/09/17 00:14 Vancomycin HCl (Vancomycin Oral Soln) 125 mg QID PO 02/07/17 17:00 02/21/17 16:59 02/10/17 11:43 125 MG Raspberry (Raspberry Syrup 5ml Cup) 5 ml QID PO 02/07/17 17:00 02/21/17 16:59 02/10/17 11:43 5 ML Lactulose (Chronulac Syrup) 30 gm BID PO 02/08/17 20:00 03/10/17 19:59 02/10/17 08:41 30 GM Albumin Human (Albumin 25%) 25 gm TODAY@0700,1000 IV 02/10/17 07:00 02/10/17 18:00 02/10/17 11:45 25 GM
[2017-02-10] MEDS ORDERED: MIDODRINE 2.5 MG TAB PO ONE (16:15)
[2017-02-10] MEDS: FAMOTIDINE 20 MG TAB PO SCH (20:10)
[2017-02-11] VITALS (10 sets, daily range): BP systolic 88–104; BP diastolic 51–67; PULSE 76–94; TEMP 36.3–37; O2SAT 97–100
[2017-02-11] MEDS: ALBUMIN HUMAN 25% 12.5 GM/50 ML VIAL IV SCH (02:10)
[2017-02-11 08:27] LABS: HEMATOCRIT 20.1 % (42-52); MEAN CORPUSCULAR HEMOGLOBIN 25.8 pg (25-34); MEAN CORPUSCULAR HGB CONC 31.8 g/dl (32-36); PLATELET COUNT 54 K/uL (130-400); RED BLOOD COUNT 2.48 M/uL (4.7-6.1); WHITE BLOOD COUNT 3.52 K/uL (4.8-10.8)
[2017-02-11 08:38] LABS: BUN/CREATININE RATIO 12.6 (10-20); CALCIUM 8.1 mg/dl (8.5-10.1); CREATININE 2.4 mg/dl (0.60-1.40); POTASSIUM 3.9 mmol/L (3.5-5.1)
[2017-02-11] MEDS: METOPROLOL SUCC 25MG EXT REL TAB PO SCH (08:41)
[2017-02-11] MEDS: RASPBERRY SYRUP 5 ML UDP PO SCH ×4 (08:41→19:58)
[2017-02-11] MEDS: PANTOprazole SOD 40 MG TAB PO SCH (08:41)
[2017-02-11] MEDS: VANCOMYCIN HCL 125 MG/2.5ML SOLN PO SCH ×4 (08:41→19:58)
[2017-02-11] MEDS: LACTULOSE SYRUP 30 GM/45 ML UDP PO SCH ×2 (08:42→19:58)
[2017-02-11 08:43] LABS: ANISOCYTOSIS PRESENT; BASO % 0.3 %; BASO ABS # 0.01 K/uL (0-0.2); COMPLETE YES; EOS % 0.9 %; IG% 0.3 %; LYMPH % 9.1 %; LYMPH ABS # 0.32 K/uL (1.2-3.4); MONO % 7.1 %; NEUT % 82.3 %; OVALOCYTES 1+
[2017-02-11] MEDS: INSULIN ASPART 100 UNITS/ML 3 ML PEN SC SCH ×4 (08:43→21:18)
[2017-02-11] MEDS: INSULIN GLARGINE SOLOSTAR 100 UNITS/ML 3 ML PEN SQ SCH (08:47)
--- NOTE | 2017-02-11 11:06 | Progress Note ---
Medicine Progress Note Date & Time of Visit: Feb 11, 2017 at 11:06. Subjective seen sitting in chair, in good spirits, comfortable states his abdomen is smaller denies abdominal pain,nausea, confusion, dyspnea states he feels that he is not urinating that much no other symptoms Objective Last 8 Hrs Date Time Temp Pulse Resp B/P (MAP) Pulse Ox O2 Delivery O2 Flow Rate FiO2 02/11/17 10:45 36.4 94 22 94/54 02/11/17 10:30 36.9 90 18 91/52 02/11/17 08:40 Room Air 02/11/17 08:19 36.5 88 18 97/57 (70) 97 Physical Exam: General-oriented x 2, not in distress, speaks in sentences with no effort Eyes- anicteric Lungs-clear breath sounds bilaterally, no rales, no wheezing, no rhonchi Heart- regular rhythm; no murmur, normal rate Abdomen- (+)moderately distended- better, normal bowel sounds, soft, nontender Extremities-grade 2 lower leg edema, no calf tenderness Neuro- alert, oriented x 2; no gross focal deficits Skin- warm & dry Laboratory Results: Last 24 Hours Test 02/10/17 11:36 02/10/17 17:11 02/10/17 20:37 02/11/17 07:34 Bedside Glucose 177 mg/dl 161 mg/dl 187 mg/dl White Blood Count 3.52 K/uL Red Blood Count 2.48 M/uL Hemoglobin 6.4 g/dL Hematocrit 20.1 % Mean Corpuscular Volume 81.0 fL Mean Corpuscular Hemoglobin 25.8 pg Mean Corpuscular Hemoglobin Concent 31.8 g/dl Platelet Count 54 K/uL Mean Platelet Volume 9.0 fL Neutrophils (%) (Auto) 82.3 % Lymphocytes (%) (Auto) 9.1 % Monocytes (%) (Auto) 7.1 % Eosinophils (%) (Auto) 0.9 % Basophils (%) (Auto) 0.3 % Neutrophils # (Auto) 2.90 K/uL Lymphocytes # (Auto) 0.32 K/uL Monocytes # (Auto) 0.25 K/uL Eosinophils # (Auto) 0.03 K/uL Basophils # (Auto) 0.01 K/uL RDW Standard Deviation 50.7 fL RDW Coefficient of Variation 17.6 % Immature Granulocyte % (Auto) 0.3 % Immature Granulocyte # (Auto) 0.01 K/uL Anisocytosis PRESENT Ovalocytes 1+ Sodium Level 140 mmol/L Potassium Level 3.9 mmol/L Chloride Level 107 mmol/L Carbon Dioxide Level 23 mmol/L Anion Gap 10.0 mmol/L Blood Urea Nitrogen 30 mg/dl Creatinine 2.40 mg/dl Est Creatinine Clear Calc Drug Dose 27.9 ml/min Estimated GFR () 27.1 Estimated GFR (Non- 23.4 BUN/Creatinine Ratio 12.6 Random Glucose 141 mg/dl Calcium Level 8.1 mg/dl Test 02/11/17 07:42 Bedside Glucose 154 mg/dl Assessment & Plan 87 year old male with history of Paroxysmal A fib, DM, CKD, COPD, Cirrhosis presenting with increasing abdominal girth. 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 - s/p Paracentesis, 5 L drained Ascitic fluid studies: no growth, no tumor cells usually on lasix 80mg po daily lasix IV + albumin BID day 4 weight down by 10 kg 02/09: (+) increased abdominal girth repeat paracentesis ordered 02/10: s/p repeat Paracentesis, drained 3 L urine output decreasing will start Albumin 4 doses, continue Lasix + albumin Midodrine PRN for hypotension 02/11: continue monitoring diuresis on Lasix + albumin BP stable - monitor Plt 80 --> 55--> 62--> 54 no signs of bleeding monitor - GI consulted and Nephro consulted, appreciate the input C DIFF COLITIS - On Vanco PO Day 5 diarrhea resolved CKD 4 - crea at baseline - stable monitor while on lasix MARGINAL BP - asymptomatic monitor - Decreased home beta noman dose by half Midodrine PRN DM2, insulin requiring well controlled as of recent hemoglobin A1c was 6.2 - continue Lantus and ISS Chronic anemia -- Hg <7 1 unit PRBC ordered will only transfuse if Hg < 7 monitor Possible Pancytopenia secondary to 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 -- counts trending down will consult Hematology if this persists tomorrow sick sinus syndrome status post pacemaker hx HOCM sp myomectomy COPD as per records Pulmo-status at baseline DVT prophylaxis, SCDs RE thrombocytopenia DNR. Dispo pending eval and management of ascites, pancytopenia in progress currently staying at [facility] Current Inpatient Medications: Current Inpatient Medications Medications (Trade) Dose Ordered Sig/Gin Route Start Time Stop Time Status Last Admin Dose Admin Acetaminophen (Tylenol Tab) 325 mg Q6H PRN PO 02/07/17 00:15 03/09/17 00:14 Insulin Aspart (novoLOG ASPART) SLIDING SCALE If C... ACHS SC 02/07/17 06:30 03/09/17 06:29 02/09/17 21:24 2 UNITS Glucose (Glucose 40% Gel) 15-30 GRAMS 15 GRAMS... UD PRN PO 02/07/17 00:15 03/09/17 00:14 Glucose (Glucose Chew Tab) 4-8 Tablets 4 Tabl... UD PRN PO 02/07/17 00:15 03/09/17 00:14 Dextrose (Dextrose 50% 50ML Syringe) 25-50ML OF 50% DW IV FOR... UD PRN IV 02/07/17 00:15 03/09/17 00:14 Glucagon (Glucagon Inj) 1 mg UD PRN SQ 02/07/17 00:15 03/09/17 00:14 Famotidine (Pepcid Tab) 20 mg QPM PO 02/07/17 21:00 03/09/17 20:59 02/10/17 20:10 20 MG Folic Acid (Folvite Tab) 1 mg DAILY PO 02/07/17 08:00 03/09/17 07:59 02/11/17 08:40 1 MG Lactulose (Chronulac Syrup) 10 gm TID PO 02/07/17 08:00 03/09/17 07:59 Future Hold 02/07/17 07:54 10 GM Metoprolol Succinate (Toprol Xl Tab) 12.5 mg DAILY PO 02/07/17 08:00 03/09/17 07:59 Nitroglycerin (Nitrostat Tab) 0.4 mg PRN UT 02/07/17 00:15 03/09/17 00:14 Pantoprazole Sodium (Protonix Tab) 40 mg DAILY PO 02/07/17 08:00 03/09/17 07:59 02/11/17 08:41 40 MG Insulin Glargine (Lantus Solostar Pen) 5 units DAILY SQ 02/07/17 08:00 03/09/17 07:59 02/11/17 08:47 5 UNITS Tramadol HCl (Ultram Tab) not relieved by tylenol @ Q6H PRN PO 02/07/17 00:15 03/09/17 00:14 Albuterol/ Ipratropium (Duoneb) 3 ml Q2H PRN INH 02/07/17 00:15 03/09/17 00:14 Ondansetron HCl (Zofran Inj) 4 mg Q6H PRN IV 02/07/17 00:15 03/09/17 00:14 Vancomycin HCl (Vancomycin Oral Soln) 125 mg QID PO 02/07/17 17:00 02/21/17 16:59 02/11/17 08:41 125 MG Raspberry (Raspberry Syrup 5ml Cup) 5 ml QID PO 02/07/17 17:00 02/21/17 16:59 02/11/17 08:41 5 ML Lactulose (Chronulac Syrup) 30 gm BID PO 02/08/17 20:00 03/10/17 19:59 02/11/17 08:42 30 GM
[2017-02-11] MEDS: ALBUMIN 25% 50 ML with FUROSEMIDE INJ 40 MG IV SCH ×2 (14:43)
[2017-02-11 14:45] LABS: HEMATOCRIT 23.8 % (42-52)
[2017-02-11] MEDS: FAMOTIDINE 20 MG TAB PO SCH (19:58)
[2017-02-12] MEDS: ALBUMIN 25% 50 ML with FUROSEMIDE INJ 40 MG IV SCH ×6 (00:23→20:15)
[2017-02-12] MEDS: INSULIN ASPART 100 UNITS/ML 3 ML PEN SC SCH ×4 (06:30→21:31)
[2017-02-12 07:10] VITALS: BP 95/61; PULSE 80; TEMP 37; O2SAT 98
[2017-02-12] MEDS: METOPROLOL SUCC 25MG EXT REL TAB PO SCH (08:00)
[2017-02-12 08:19] LABS: HEMATOCRIT 26.2 % (42-52); MEAN CELL VOLUME 82.1 fL (80-100); MEAN CORPUSCULAR HEMOGLOBIN 25.1 pg (25-34); MEAN CORPUSCULAR HGB CONC 30.5 g/dl (32-36); RED BLOOD COUNT 3.19 M/uL (4.7-6.1); WHITE BLOOD COUNT 5.27 K/uL (4.8-10.8)
[2017-02-12] MEDS: PANTOprazole SOD 40 MG TAB PO SCH (08:22)
[2017-02-12] MEDS: RASPBERRY SYRUP 5 ML UDP PO SCH ×4 (08:23→20:22)
[2017-02-12] MEDS: LACTULOSE SYRUP 30 GM/45 ML UDP PO SCH ×2 (08:23→20:21)
[2017-02-12] MEDS: VANCOMYCIN HCL 125 MG/2.5ML SOLN PO SCH ×4 (08:23→20:22)
[2017-02-12 08:24] LABS: MEAN PLATELET VOLUME 9.2 fL (7.4-10.4); PLATELET COUNT 66 K/uL (130-400)
[2017-02-12 08:40] LABS: BASO % 0.2 %; BASO ABS # 0.01 K/uL (0-0.2); COMPLETE YES; EOS % 0.9 %; IG% 0.2 %; LYMPH % 4.4 %; LYMPH ABS # 0.23 K/uL (1.2-3.4); MONO % 8.2 %; NEUT % 86.1 %; OVALOCYTES 1+
[2017-02-12 08:57] LABS: BUN/CREATININE RATIO 13.3 (10-20); CALCIUM 7.9 mg/dl (8.5-10.1); CREATININE 2.2 mg/dl (0.60-1.40); POTASSIUM 3.7 mmol/L (3.5-5.1)
[2017-02-12] MEDS: INSULIN GLARGINE SOLOSTAR 100 UNITS/ML 3 ML PEN SQ SCH (10:03)
--- NOTE | 2017-02-12 12:50 | Progress Note ---
Medicine Progress Note Date & Time of Visit: Feb 12, 2017 at 12:41. Subjective patient seen resting in bed, comfortable states he feels chilly today denies shortness of breath, cough, abdominal pain, nausea had 1 loose BM today denies leg pain Objective Last 8 Hrs Date Time Temp Pulse Resp B/P (MAP) Pulse Ox O2 Delivery O2 Flow Rate FiO2 02/12/17 08:00 Room Air 02/12/17 07:10 37.0 80 16 95/61 (72) 98 Room Air Physical Exam: General-oriented x 2, not in distress, speaks in sentences with no effort Eyes- anicteric Lungs-clear breath sounds bilaterally no rales/wheezes Heart- regular rhythm; no murmur, normal rate Abdomen- (+)moderately distended, normal bowel sounds, soft, nontender Extremities-grade 2 lower leg edema, no calf tenderness Neuro- alert, oriented x 2; no gross focal deficits Skin- warm & dry Laboratory Results: Last 24 Hours Test 02/11/17 14:35 02/11/17 16:58 02/11/17 20:22 02/12/17 07:35 Hemoglobin 7.6 g/dL Hematocrit 23.8 % Bedside Glucose 197 mg/dl 218 mg/dl 149 mg/dl Test 02/12/17 07:52 02/12/17 11:33 White Blood Count 5.27 K/uL Red Blood Count 3.19 M/uL Hemoglobin 8.0 g/dL Hematocrit 26.2 % Mean Corpuscular Volume 82.1 fL Mean Corpuscular Hemoglobin 25.1 pg Mean Corpuscular Hemoglobin Concent 30.5 g/dl Platelet Count 66 K/uL Mean Platelet Volume 9.2 fL Neutrophils (%) (Auto) 86.1 % Lymphocytes (%) (Auto) 4.4 % Monocytes (%) (Auto) 8.2 % Eosinophils (%) (Auto) 0.9 % Basophils (%) (Auto) 0.2 % Neutrophils # (Auto) 4.54 K/uL Lymphocytes # (Auto) 0.23 K/uL Monocytes # (Auto) 0.43 K/uL Eosinophils # (Auto) 0.05 K/uL Basophils # (Auto) 0.01 K/uL RDW Standard Deviation 52.0 fL RDW Coefficient of Variation 17.3 % Immature Granulocyte % (Auto) 0.2 % Immature Granulocyte # (Auto) 0.01 K/uL Ovalocytes 1+ Sodium Level 138 mmol/L Potassium Level 3.7 mmol/L Chloride Level 107 mmol/L Carbon Dioxide Level 24 mmol/L Anion Gap 7.0 mmol/L Blood Urea Nitrogen 29 mg/dl Creatinine 2.20 mg/dl Est Creatinine Clear Calc Drug Dose 30.4 ml/min Estimated GFR () 30.1 Estimated GFR (Non- 26.0 BUN/Creatinine Ratio 13.3 Random Glucose 137 mg/dl Calcium Level 7.9 mg/dl Bedside Glucose 269 mg/dl Assessment & Plan 87 year old male with history of Paroxysmal A fib, DM, CKD, COPD, Cirrhosis presenting with increasing abdominal girth. 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 - s/p Paracentesis, 5 L drained Ascitic fluid studies: no growth, no tumor cells usually on lasix 80mg po daily lasix IV + albumin BID day 4 weight down by 10 kg 02/09: (+) increased abdominal girth repeat paracentesis ordered 02/10: s/p repeat Paracentesis, drained 3 L urine output decreasing will start Albumin 4 doses, continue Lasix + albumin Midodrine PRN for hypotension 02/11: continue monitoring diuresis on Lasix + albumin BP stable 02/12: (+) oliguria but crea stable denies dyspnea -- will discuss with Nephrology - monitor Plt 50-60s no signs of bleeding monitor - GI consulted and Nephro consulted, appreciate the input CKD 4 - crea at baseline but oliguric likely third spacing - will discuss with Nephro CHILLS - r/o infection- SBP, UTI, Bacteremia - check blood cultures, urine culture, send ascitic fluid for studies - cover with Ceftriaxone empirically today C DIFF COLITIS - On Vanco PO Day 5 diarrhea resolved MARGINAL BP - asymptomatic monitor - Decreased home beta noman dose by half Midodrine PRN DM2, insulin requiring well controlled as of recent hemoglobin A1c was 6.2 - continue Lantus and ISS Chronic anemia -- s/p 1 unit pRBC for Hg 6 -- Hg 8 will only transfuse if Hg < 7 due to liver cirrhosis, possible portal hypertension monitor Possible Pancytopenia secondary to 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 -- will consult Hematology levels decrease in trend sick sinus syndrome status post pacemaker hx HOCM sp myomectomy COPD as per records Pulmo-status at baseline DVT prophylaxis, SCDs RE thrombocytopenia DNR. Dispo pending eval and management of ascites, oliguria in progress currently staying at [facility] Current Inpatient Medications: Current Inpatient Medications Medications (Trade) Dose Ordered Sig/Gin Route Start Time Stop Time Status Last Admin Dose Admin Acetaminophen (Tylenol Tab) 325 mg Q6H PRN PO 02/07/17 00:15 03/09/17 00:14 Insulin Aspart (novoLOG ASPART) SLIDING SCALE If C... ACHS SC 02/07/17 06:30 03/09/17 06:29 02/12/17 12:00 2 UNITS Glucose (Glucose 40% Gel) 15-30 GRAMS 15 GRAMS... UD PRN PO 02/07/17 00:15 03/09/17 00:14 Glucose (Glucose Chew Tab) 4-8 Tablets 4 Tabl... UD PRN PO 02/07/17 00:15 03/09/17 00:14 Dextrose (Dextrose 50% 50ML Syringe) 25-50ML OF 50% DW IV FOR... UD PRN IV 02/07/17 00:15 03/09/17 00:14 Glucagon (Glucagon Inj) 1 mg UD PRN SQ 02/07/17 00:15 03/09/17 00:14 Famotidine (Pepcid Tab) 20 mg QPM PO 02/07/17 21:00 03/09/17 20:59 02/11/17 19:58 20 MG Folic Acid (Folvite Tab) 1 mg DAILY PO 02/07/17 08:00 03/09/17 07:59 02/12/17 08:23 1 MG Lactulose (Chronulac Syrup) 10 gm TID PO 02/07/17 08:00 03/09/17 07:59 Future Hold 02/07/17 07:54 10 GM Metoprolol Succinate (Toprol Xl Tab) 12.5 mg DAILY PO 02/07/17 08:00 03/09/17 07:59 Nitroglycerin (Nitrostat Tab) 0.4 mg PRN UT 02/07/17 00:15 03/09/17 00:14 Pantoprazole Sodium (Protonix Tab) 40 mg DAILY PO 02/07/17 08:00 03/09/17 07:59 02/12/17 08:22 40 MG Insulin Glargine (Lantus Solostar Pen) 5 units DAILY SQ 02/07/17 08:00 03/09/17 07:59 02/12/17 10:03 5 UNITS Tramadol HCl (Ultram Tab) not relieved by tylenol @ Q6H PRN PO 02/07/17 00:15 03/09/17 00:14 Albuterol/ Ipratropium (Duoneb) 3 ml Q2H PRN INH 02/07/17 00:15 03/09/17 00:14 Ondansetron HCl (Zofran Inj) 4 mg Q6H PRN IV 02/07/17 00:15 03/09/17 00:14 Vancomycin HCl (Vancomycin Oral Soln) 125 mg QID PO 02/07/17 17:00 02/21/17 16:59 02/12/17 11:58 125 MG Raspberry (Raspberry Syrup 5ml Cup) 5 ml QID PO 02/07/17 17:00 02/21/17 16:59 02/12/17 11:58 5 ML Lactulose (Chronulac Syrup) 30 gm BID PO 02/08/17 20:00 03/10/17 19:59 02/12/17 08:23 30 GM Furosemide 40 mg/ Albumin Human 54 ml @ 54 mls/hr Q12H IV 02/11/17 12:00 02/14/17 11:59 02/12/17 12:01 54 MLS/HR
[2017-02-12] MEDS ORDERED: MIDODRINE 2.5 MG TAB PO PRN (13:00)
[2017-02-12] MEDS ORDERED: CEFTRIAXONE SOD INJ 2000 MG in DEXTROSE 5% 50ML IV SCH (14:00)
--- NOTE | 2017-02-12 14:04 | PROGRESS NOTE ---
DATE: 02/12/2017 SUBJECTIVE: Overnight, patient remained oliguric. He appears chronically ill. He has massive ascites as well as lower extremity edema. Stool did come back positive for C. diff, but he is not really having diarrhea. Despite getting Lasix 40 mg IV b.i.d. with albumin, he is barely making any urine. Blood pressure is chronically low. PHYSICAL EXAMINATION: VITAL SIGNS: Blood pressure 95/61, 98% on room air, pulse rate 80 per minute, temperature 37 degrees Celsius. HEENT: Mucous membranes are moist. NECK: Supple. PULMONARY: Decreased breath sounds at the bases. CARDIAC: Regular rate and rhythm. Soft systolic murmur heard. ABDOMEN: Distended, ascites present. EXTREMITIES: 4+ edema, pitting bilaterally. LABORATORY TESTS: Hemoglobin is 8.0. WBC count 5.27, platelet count 66,000. Sodium 138, potassium 3.7, BUN 29. Creatinine 2.2, which is actually better than the last few days. ASSESSMENT AND PLAN: Chronic kidney disease stage IV in the setting of underlying decompensated cirrhosis. He has chronic volume overload, does not usually respond with Lasix. I would increase the dose of Lasix to 80 mg IV q. 8 hours with IV albumin. I really think this patient should be on hospice as there is really nothing that can really make major improvement in his overall status. I would add metolazone 5 mg daily. MTDD
[2017-02-12] MEDS: METOLAZONE 5 MG TAB PO SCH (14:58)
[2017-02-12 15:01] VITALS: BP 91/56; PULSE 96; TEMP 36.8; O2SAT 96
[2017-02-12 15:45] LABS: URINE APPEARANCE TURBID (CLEAR); URINE BILIRUBIN NEG (NEG); URINE COLOR DK YELLOW; URINE EPITHELIAL CELL AUTO >30 /lpf (0-5); URINE NITRITE POS (NEG); URINE SPECIFIC GRAVITY 1.017 (1.000-1.030); UROBILINOGEN NEG (NEG)
[2017-02-12 15:48] LABS: MANUAL MICROSCOPIC REQUIRED? NO; REVIEW REQ? YES
[2017-02-12 20:10] VITALS: BP 101/58; PULSE 86; TEMP 36.8
[2017-02-12] MEDS: FAMOTIDINE 20 MG TAB PO SCH (20:22)
[2017-02-12 21:27] VITALS: BP 95/57; PULSE 65; TEMP 37.1; O2SAT 95
[2017-02-13] VITALS (16 sets, daily range): BP systolic 84–103; BP diastolic 48–64; PULSE 62–98; TEMP 36.4–36.9; O2SAT 95–98
[2017-02-13] MEDS: ALBUMIN 25% 50 ML with FUROSEMIDE INJ 40 MG IV SCH ×6 (04:19→19:33)
[2017-02-13 06:48] LABS: HEMATOCRIT 22.7 % (42-52); MEAN CELL VOLUME 82.2 fL (80-100); MEAN CORPUSCULAR HEMOGLOBIN 25.7 pg (25-34); MEAN CORPUSCULAR HGB CONC 31.3 g/dl (32-36); RED BLOOD COUNT 2.76 M/uL (4.7-6.1); WHITE BLOOD COUNT 4.37 K/uL (4.8-10.8)
[2017-02-13 06:51] LABS: MEAN PLATELET VOLUME 9.2 fL (7.4-10.4); PLATELET COUNT 54 K/uL (130-400)
[2017-02-13 07:13] LABS: ANISOCYTOSIS PRESENT; BASO % 0.2 %; BASO ABS # 0.01 K/uL (0-0.2); COMPLETE YES; ECHINOCYTES 1+; EOS % 0.7 %; HYPERSEGMENTED POLYS 1+; IG% 0.5 %; LYMPH % 7.8 %; LYMPH ABS # 0.34 K/uL (1.2-3.4); MONO % 8.2 %; NEUT % 82.6 %; OVALOCYTES 1+
[2017-02-13 07:18] LABS: BUN/CREATININE RATIO 13.2 (10-20); CALCIUM 8.2 mg/dl (8.5-10.1); CREATININE 2.3 mg/dl (0.60-1.40); POTASSIUM 3.3 mmol/L (3.5-5.1)
[2017-02-13] MEDS: RASPBERRY SYRUP 5 ML UDP PO SCH ×4 (07:59→19:33)
[2017-02-13] MEDS: ALBUMIN HUMAN 25% 12.5 GM/50 ML VIAL IV SCH ×4 (07:59→16:51)
[2017-02-13] MEDS: LACTULOSE SYRUP 30 GM/45 ML UDP PO SCH ×2 (08:00→19:33)
[2017-02-13] MEDS: METOPROLOL SUCC 25MG EXT REL TAB PO SCH (08:00)
[2017-02-13] MEDS: PANTOprazole SOD 40 MG TAB PO SCH (08:01)
[2017-02-13] MEDS: VANCOMYCIN HCL 125 MG/2.5ML SOLN PO SCH ×4 (08:03→19:33)
[2017-02-13] MEDS: INSULIN ASPART 100 UNITS/ML 3 ML PEN SC SCH ×4 (08:16→21:12)
[2017-02-13] MEDS: INSULIN GLARGINE SOLOSTAR 100 UNITS/ML 3 ML PEN SQ SCH (08:17)
--- NOTE | 2017-02-13 08:50 | Nephrology Progress Note ---
Nephrology Progress Note Date of Service: Feb 13, 2017. Subjective 87 yo male with cirrhosis, chronic volume overload, hypotension, ckd who gets intermittent paracentesis and continues to third space fluid. pt is pleasant. oob to chair. eating his breakfast. Objective Date Time Temp Pulse Resp B/P (MAP) Pulse Ox O2 Delivery O2 Flow Rate FiO2 02/13/17 08:41 80 90/54 (66) 02/13/17 08:17 86 103/64 (77) 02/13/17 07:36 36.8 72 16 90/55 (67) 95 BiPAP 02/13/17 05:12 36.9 70 18 92/53 (66) BiPAP 02/13/17 04:19 36.9 98 91/55 (67) 02/13/17 00:00 CPAP 02/12/17 21:27 37.1 65 95/57 (70) 95 Room Air 02/12/17 20:10 36.8 86 22 101/58 (72) 02/12/17 15:30 Room Air 02/12/17 15:01 36.8 96 18 91/56 (68) 96 Room Air Physical Exam: General-aaox3 Eyes-no scleral icterus ENT-mmm Neck-supple Lungs-cta Heart-3/6 systolic murmur Abdomen-bs+/nontender/+distention Extremities-+3 edema Neuro-nonfocal Current Inpatient Medications Medications (Trade) Dose Ordered Sig/Gin Route Start Time Stop Time Status Last Admin Dose Admin Acetaminophen (Tylenol Tab) 325 mg Q6H PRN PO 02/07/17 00:15 03/09/17 00:14 Insulin Aspart (novoLOG ASPART) SLIDING SCALE If C... ACHS SC 02/07/17 06:30 03/09/17 06:29 02/12/17 21:31 2 UNITS Glucose (Glucose 40% Gel) 15-30 GRAMS 15 GRAMS... UD PRN PO 02/07/17 00:15 03/09/17 00:14 Glucose (Glucose Chew Tab) 4-8 Tablets 4 Tabl... UD PRN PO 02/07/17 00:15 03/09/17 00:14 Dextrose (Dextrose 50% 50ML Syringe) 25-50ML OF 50% DW IV FOR... UD PRN IV 02/07/17 00:15 03/09/17 00:14 Glucagon (Glucagon Inj) 1 mg UD PRN SQ 02/07/17 00:15 03/09/17 00:14 Famotidine (Pepcid Tab) 20 mg QPM PO 02/07/17 21:00 03/09/17 20:59 02/12/17 20:22 20 MG Folic Acid (Folvite Tab) 1 mg DAILY PO 02/07/17 08:00 03/09/17 07:59 02/13/17 08:00 1 MG Lactulose (Chronulac Syrup) 10 gm TID PO 02/07/17 08:00 03/09/17 07:59 Future Hold 02/07/17 07:54 10 GM Metoprolol Succinate (Toprol Xl Tab) 12.5 mg DAILY PO 02/07/17 08:00 03/09/17 07:59 Nitroglycerin (Nitrostat Tab) 0.4 mg PRN UT 02/07/17 00:15 03/09/17 00:14 Pantoprazole Sodium (Protonix Tab) 40 mg DAILY PO 02/07/17 08:00 03/09/17 07:59 02/13/17 08:01 40 MG Insulin Glargine (Lantus Solostar Pen) 5 units DAILY SQ 02/07/17 08:00 03/09/17 07:59 02/13/17 08:17 5 UNITS Tramadol HCl (Ultram Tab) not relieved by tylenol @ Q6H PRN PO 02/07/17 00:15 03/09/17 00:14 Albuterol/ Ipratropium (Duoneb) 3 ml Q2H PRN INH 02/07/17 00:15 03/09/17 00:14 Ondansetron HCl (Zofran Inj) 4 mg Q6H PRN IV 02/07/17 00:15 03/09/17 00:14 Vancomycin HCl (Vancomycin Oral Soln) 125 mg QID PO 02/07/17 17:00 02/21/17 16:59 02/13/17 08:03 125 MG Raspberry (Raspberry Syrup 5ml Cup) 5 ml QID PO 02/07/17 17:00 02/21/17 16:59 02/13/17 07:59 5 ML Lactulose (Chronulac Syrup) 30 gm BID PO 02/08/17 20:00 03/10/17 19:59 02/13/17 08:00 30 GM Furosemide 40 mg/ Albumin Human 54 ml @ 54 mls/hr Q8H IV 02/12/17 20:00 02/14/17 19:59 02/13/17 04:19 54 MLS/HR Midodrine (Proamatine Tab) 2.5 mg DAILY PRN PO 02/12/17 13:00 03/14/17 12:59 Miscellaneous Information (Pharmacy Consult) 1 ea UD N/A 02/12/17 13:20 03/14/17 13:19 Ceftriaxone Sodium 2000 mg/ Dextrose 70 ml @ 140 mls/hr Q24H IV 02/12/17 14:00 02/22/17 13:59 02/12/17 14:24 140 MLS/HR Metolazone (Zaroxolyn Tab) 5 mg QAM PO 02/12/17 14:30 03/14/17 14:29 02/12/17 14:58 5 MG Albumin Human (Albumin 25%) 12.5 gm TODAY@0800,0900,1100,1200 IV 02/13/17 08:00 02/13/17 18:00 02/13/17 07:59 12.5 GM Last 24 Hours Test 02/12/17 11:33 02/12/17 15:15 02/12/17 16:49 02/12/17 20:21 Bedside Glucose 269 mg/dl 197 mg/dl 275 mg/dl Urine Color DK YELLOW Urine Appearance TURBID Urine pH 7.0 Urine Specific [place] 1.017 Urine Protein 2+ Urine Glucose (UA) NEG Urine Ketones NEG Urine Occult Blood 3+ Urine Nitrite POS Urine Bilirubin NEG Urine Urobilinogen NEG Urine Leukocyte Esterase LARGE Urine WBC (Auto) >30 /hpf Urine RBC (Auto) >30 /hpf Urine Hyaline Casts (Auto) >30 /lpf Urine Epithelial Cells (Auto) >30 /lpf Urine Bacteria (Auto) 3+ Urine Pathogenic Casts /lpf Urine Yeast (Auto) Test 02/13/17 06:22 02/13/17 08:14 White Blood Count 4.37 K/uL Red Blood Count 2.76 M/uL Hemoglobin 7.1 g/dL Hematocrit 22.7 % Mean Corpuscular Volume 82.2 fL Mean Corpuscular Hemoglobin 25.7 pg Mean Corpuscular Hemoglobin Concent 31.3 g/dl Platelet Count 54 K/uL Mean Platelet Volume 9.2 fL Neutrophils (%) (Auto) 82.6 % Lymphocytes (%) (Auto) 7.8 % Monocytes (%) (Auto) 8.2 % Eosinophils (%) (Auto) 0.7 % Basophils (%) (Auto) 0.2 % Neutrophils # (Auto) 3.61 K/uL Lymphocytes # (Auto) 0.34 K/uL Monocytes # (Auto) 0.36 K/uL Eosinophils # (Auto) 0.03 K/uL Basophils # (Auto) 0.01 K/uL RDW Standard Deviation 52.8 fL RDW Coefficient of Variation 17.5 % Immature Granulocyte % (Auto) 0.5 % Immature Granulocyte # (Auto) 0.02 K/uL Hypersegmented Polys 1+ Anisocytosis PRESENT Ovalocytes 1+ Echinocytes 1+ Sodium Level 139 mmol/L Potassium Level 3.3 mmol/L Chloride Level 105 mmol/L Carbon Dioxide Level 25 mmol/L Anion Gap 9.0 mmol/L Blood Urea Nitrogen 30 mg/dl Creatinine 2.30 mg/dl Est Creatinine Clear Calc Drug Dose 29.1 ml/min Estimated GFR () 28.5 Estimated GFR (Non- 24.6 BUN/Creatinine Ratio 13.2 Random Glucose 151 mg/dl Calcium Level 8.2 mg/dl Bedside Glucose 151 mg/dl Date/Time Source Procedure Growth Status 02/12/17 13:31 Blood Blood Culture Pending Received 02/12/17 13:18 Blood Blood Culture Pending Received 02/12/17 15:15 Urine,Catheterized Urine Culture - Preliminary Probable Pseudomonas Species Gram Negative Bacilli Resulted Assessment & Plan ckd stage 4-creatinine 2.7 to 2.3 despite attempting to diurese. did get a liter of urine output yesterday. on lasix with albumin-40 iv q8 and metolazone 5mg a day. also getting more albumin today as well. bp in the 90s to low 100s and has a prn midodrine order to help raise the bp. hard to define end point for this hospitilization. pt will continue to need frequent paracenteses and require high dose diuretics as an outpt. will attempt to help improve the lower extremity edema and abdominal distention. thankfully, lungs sound good. will see urine output today, if trails off again, will increase diuretics even more tomorrow.
[2017-02-13] MEDS: METOLAZONE 5 MG TAB PO SCH (09:22)
[2017-02-13] MEDS ORDERED: PIPERACILL/TAZOBAC CONSULT ACTIVE PRN (11:10)
[2017-02-13] MEDS ORDERED: PIPERACILL/TAZOBAC IV 3.375 GM in DEXTROSE 5% 100ML IV ONE (11:15)
--- NOTE | 2017-02-13 11:33 | Progress Note ---
Medicine Progress Note Date & Time of Visit: Feb 13, 2017 at 11:28. Subjective seen resting in bedside chair, comfortable chills have resolved states he feels improved today denies abdominal pain, nausea, vomiting, still has some loose stools no dyspnea no leg pain denies other symptoms Objective Last 8 Hrs Date Time Temp Pulse Resp B/P (MAP) Pulse Ox O2 Delivery O2 Flow Rate FiO2 02/13/17 10:38 62 84/48 (60) 02/13/17 10:01 84 93/55 (68) 02/13/17 09:22 97 90/58 (69) 02/13/17 08:41 80 90/54 (66) 02/13/17 08:17 86 103/64 (77) 02/13/17 08:00 Room Air 02/13/17 07:36 36.8 72 16 90/55 (67) 95 BiPAP 02/13/17 05:12 36.9 70 18 92/53 (66) BiPAP 02/13/17 04:19 36.9 98 91/55 (67) Physical Exam: General-oriented x 2, not in distress, speaks in sentences with no effort Eyes- anicteric Lungs-clear BS BL no rales/wheezes Heart- regular rhythm; no murmur, normal rate Abdomen- (+) moderately distended, normal bowel sounds, soft, nontender Extremities-grade 1-2 lower leg edema- improving, no calf tenderness Neuro- alert, oriented x 2; no gross focal deficits Skin- warm & dry Laboratory Results: Last 24 Hours Test 02/12/17 11:33 02/12/17 15:15 02/12/17 16:49 02/12/17 20:21 Bedside Glucose 269 mg/dl 197 mg/dl 275 mg/dl Urine Color DK YELLOW Urine Appearance TURBID Urine pH 7.0 Urine Specific [place] 1.017 Urine Protein 2+ Urine Glucose (UA) NEG Urine Ketones NEG Urine Occult Blood 3+ Urine Nitrite POS Urine Bilirubin NEG Urine Urobilinogen NEG Urine Leukocyte Esterase LARGE Urine WBC (Auto) >30 /hpf Urine RBC (Auto) >30 /hpf Urine Hyaline Casts (Auto) >30 /lpf Urine Epithelial Cells (Auto) >30 /lpf Urine Bacteria (Auto) 3+ Urine Pathogenic Casts /lpf Urine Yeast (Auto) Test 02/13/17 06:22 02/13/17 08:14 White Blood Count 4.37 K/uL Red Blood Count 2.76 M/uL Hemoglobin 7.1 g/dL Hematocrit 22.7 % Mean Corpuscular Volume 82.2 fL Mean Corpuscular Hemoglobin 25.7 pg Mean Corpuscular Hemoglobin Concent 31.3 g/dl Platelet Count 54 K/uL Mean Platelet Volume 9.2 fL Neutrophils (%) (Auto) 82.6 % Lymphocytes (%) (Auto) 7.8 % Monocytes (%) (Auto) 8.2 % Eosinophils (%) (Auto) 0.7 % Basophils (%) (Auto) 0.2 % Neutrophils # (Auto) 3.61 K/uL Lymphocytes # (Auto) 0.34 K/uL Monocytes # (Auto) 0.36 K/uL Eosinophils # (Auto) 0.03 K/uL Basophils # (Auto) 0.01 K/uL RDW Standard Deviation 52.8 fL RDW Coefficient of Variation 17.5 % Immature Granulocyte % (Auto) 0.5 % Immature Granulocyte # (Auto) 0.02 K/uL Hypersegmented Polys 1+ Anisocytosis PRESENT Ovalocytes 1+ Echinocytes 1+ Sodium Level 139 mmol/L Potassium Level 3.3 mmol/L Chloride Level 105 mmol/L Carbon Dioxide Level 25 mmol/L Anion Gap 9.0 mmol/L Blood Urea Nitrogen 30 mg/dl Creatinine 2.30 mg/dl Est Creatinine Clear Calc Drug Dose 29.1 ml/min Estimated GFR () 28.5 Estimated GFR (Non- 24.6 BUN/Creatinine Ratio 13.2 Random Glucose 151 mg/dl Calcium Level 8.2 mg/dl Bedside Glucose 151 mg/dl Date/Time Source Procedure Growth Status 02/12/17 13:31 Blood Blood Culture Pending Received 02/12/17 13:18 Blood Blood Culture Pending Received 02/12/17 15:15 Urine,Catheterized Urine Culture - Preliminary Probable Pseudomonas Species Gram Negative Bacilli Resulted Assessment & Plan 87 year old male with history of Paroxysmal A fib, DM, CKD, COPD, Cirrhosis presenting with increasing abdominal girth. 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 - s/p Paracentesis, 5 L drained Ascitic fluid studies: no growth, no tumor cells usually on lasix 80mg po daily lasix IV + albumin BID day 4 weight down by 10 kg 02/09: (+) increased abdominal girth repeat paracentesis ordered 02/10: s/p repeat Paracentesis, drained 3 L urine output decreasing will start Albumin 4 doses, continue Lasix + albumin Midodrine PRN for hypotension 02/11: continue monitoring diuresis on Lasix + albumin BP stable 02/12: (+) oliguria but crea stable denies dyspnea Lasix + Albumin increased 02/13: Urine output increased continue Lasix + Alubmin q8h , Metolazone monitor response and crea appreciate Nephro SVC input - monitor Plt 50-60s no signs of bleeding monitor - may need weekly paracentesis as outpatient CKD 4 - crea stable - management per #1 PSEUDOMONAS, GRAM NEGATIVE BACILLI UTI - no chills today, afebrile - ff up blood cultures, urine culture, send ascitic fluid for studies - change Ceftro to Zosyn C DIFF COLITIS - On Vanco PO Day 10/29 diarrhea resolved MARGINAL BP - asymptomatic monitor - Decreased home beta noman dose by half Midodrine PRN DM2, insulin requiring well controlled as of recent hemoglobin A1c was 6.2 - continue Lantus and ISS Chronic anemia -- s/p 1 unit pRBC for Hg 6 -- Hg 7.1 will only transfuse if Hg < 7 due to liver cirrhosis, possible portal hypertension monitor Possible Pancytopenia secondary to 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 -- will consult Hematology levels decrease in trend sick sinus syndrome status post pacemaker hx HOCM sp myomectomy COPD as per records Pulmo-status at baseline DVT prophylaxis, SCDs RE thrombocytopenia DNR. Dispo pending eval and management of ascites, volume overload, CKD 4 in progress currently staying at [facility] Current Inpatient Medications: Current Inpatient Medications Medications (Trade) Dose Ordered Sig/Gin Route Start Time Stop Time Status Last Admin Dose Admin Acetaminophen (Tylenol Tab) 325 mg Q6H PRN PO 02/07/17 00:15 03/09/17 00:14 Insulin Aspart (novoLOG ASPART) SLIDING SCALE If C... ACHS SC 02/07/17 06:30 03/09/17 06:29 02/12/17 21:31 2 UNITS Glucose (Glucose 40% Gel) 15-30 GRAMS 15 GRAMS... UD PRN PO 02/07/17 00:15 03/09/17 00:14 Glucose (Glucose Chew Tab) 4-8 Tablets 4 Tabl... UD PRN PO 02/07/17 00:15 03/09/17 00:14 Dextrose (Dextrose 50% 50ML Syringe) 25-50ML OF 50% DW IV FOR... UD PRN IV 02/07/17 00:15 03/09/17 00:14 Glucagon (Glucagon Inj) 1 mg UD PRN SQ 02/07/17 00:15 03/09/17 00:14 Famotidine (Pepcid Tab) 20 mg QPM PO 02/07/17 21:00 03/09/17 20:59 02/12/17 20:22 20 MG Folic Acid (Folvite Tab) 1 mg DAILY PO 02/07/17 08:00 03/09/17 07:59 02/13/17 08:00 1 MG Lactulose (Chronulac Syrup) 10 gm TID PO 02/07/17 08:00 03/09/17 07:59 Future Hold 02/07/17 07:54 10 GM Metoprolol Succinate (Toprol Xl Tab) 12.5 mg DAILY PO 02/07/17 08:00 03/09/17 07:59 Nitroglycerin (Nitrostat Tab) 0.4 mg PRN UT 02/07/17 00:15 03/09/17 00:14 Pantoprazole Sodium (Protonix Tab) 40 mg DAILY PO 02/07/17 08:00 03/09/17 07:59 02/13/17 08:01 40 MG Insulin Glargine (Lantus Solostar Pen) 5 units DAILY SQ 02/07/17 08:00 03/09/17 07:59 02/13/17 08:17 5 UNITS Tramadol HCl (Ultram Tab) not relieved by tylenol @ Q6H PRN PO 02/07/17 00:15 03/09/17 00:14 Albuterol/ Ipratropium (Duoneb) 3 ml Q2H PRN INH 02/07/17 00:15 03/09/17 00:14 Ondansetron HCl (Zofran Inj) 4 mg Q6H PRN IV 02/07/17 00:15 03/09/17 00:14 Vancomycin HCl (Vancomycin Oral Soln) 125 mg QID PO 02/07/17 17:00 02/21/17 16:59 02/13/17 08:03 125 MG Raspberry (Raspberry Syrup 5ml Cup) 5 ml QID PO 02/07/17 17:00 02/21/17 16:59 02/13/17 07:59 5 ML Lactulose (Chronulac Syrup) 30 gm BID PO 02/08/17 20:00 03/10/17 19:59 02/13/17 08:00 30 GM Furosemide 40 mg/ Albumin Human 54 ml @ 54 mls/hr Q8H IV 02/12/17 20:00 02/14/17 19:59 02/13/17 04:19 54 MLS/HR Midodrine (Proamatine Tab) 2.5 mg DAILY PRN PO 02/12/17 13:00 03/14/17 12:59 Metolazone (Zaroxolyn Tab) 5 mg QAM PO 02/12/17 14:30 03/14/17 14:29 02/13/17 09:22 5 MG Albumin Human (Albumin 25%) 12.5 gm TODAY@0800,0900,1100,1200 IV 02/13/17 08:00 02/13/17 18:00 02/13/17 09:23 12.5 GM Piperacillin Sod/ Tazobactam Sod (Consult) 1 ea UD PRN N/A 02/13/17 11:10 03/15/17 11:09 Piperacillin Sod/ Tazobactam Sod 3.375 gm/Dextrose 115 ml @ 230 mls/hr NOW ONCE IV 02/13/17 11:15 02/13/17 11:44
--- NOTE | 2017-02-13 14:56 | DIAGNOSTIC IMAGING REPORT ---
PARACENTESIS ABDOMEN W/IMAGING CLINICAL HISTORY: ascites, diagnostic and therapeutic tap ascites COMPARISON STUDY: No previous studies for comparison. PROCEDURE: The risks, benefits, and alternatives to the procedure were discussed with the patient including the risk of bleeding, infection and injury to adjacent structures. The patient agreed to the procedure and informed written consent was obtained. The procedure was performed by Dr. Hilton following a time out. Following real-time ultrasound localization, the skin was prepped and draped. Following local anesthesia with Xylocaine, the sheath paracentesis needle was inserted and approximately 5 liters of straw-colored fluid was removed by vacuum suction. The patient tolerated the procedure well and no immediate complications were evident. IMPRESSION: Ultrasound-guided paracentesis with removal of 5 liters of ascites. A specimen bottle was sent to the laboratory. No complications. The above report was generated using voice recognition software. It may contain grammatical, syntax or spelling errors. Electronically signed by: Anastacio Hilton M.D. 02/13/2017 2:55 PM Dictated Date/Time: 02/13/2017 2:54 PM
[2017-02-13 17:13] LABS: PERIT FL WBC 197 /uL (0-300)
[2017-02-13 17:14] LABS: PERITONEAL FLUID RBC 33000 /uL
[2017-02-13] MEDS: PIPERACILL/TAZOBAC IV 3.375 GM in DEXTROSE 5% 100ML IV SCH (17:47)
[2017-02-13] MEDS: FAMOTIDINE 20 MG TAB PO SCH (19:33)
[2017-02-14] VITALS (8 sets, daily range): BP systolic 80–135; BP diastolic 47–67; PULSE 63–101; TEMP 36.4–37; O2SAT 96–100
[2017-02-14] MEDS: PIPERACILL/TAZOBAC IV 3.375 GM in DEXTROSE 5% 100ML IV SCH ×3 (01:46→17:07)
[2017-02-14] MEDS: ALBUMIN 25% 50 ML with FUROSEMIDE INJ 40 MG IV SCH ×4 (04:06→12:46)
[2017-02-14 06:13] LABS: HEMATOCRIT 21.8 % (42-52); MEAN CELL VOLUME 81.3 fL (80-100); MEAN CORPUSCULAR HEMOGLOBIN 26.9 pg (25-34); MEAN PLATELET VOLUME 8.5 fL (7.4-10.4); PLATELET COUNT 53 K/uL (130-400); RED BLOOD COUNT 2.68 M/uL (4.7-6.1); WHITE BLOOD COUNT 2.95 K/uL (4.8-10.8)
[2017-02-14 06:30] LABS: ANISOCYTOSIS PRESENT; BASO % 0.7 %; BASO ABS # 0.02 K/uL (0-0.2); COMPLETE YES; EOS % 3.1 %; LYMPH % 5.4 %; LYMPH ABS # 0.16 K/uL (1.2-3.4); MONO % 13.6 %; NEUT % 77.2 %; OVALOCYTES 1+
[2017-02-14 06:37] LABS: BUN/CREATININE RATIO 12.9 (10-20); CALCIUM 7.6 mg/dl (8.5-10.1); CREATININE 2.4 mg/dl (0.60-1.40)
[2017-02-14] MEDS: METOPROLOL SUCC 25MG EXT REL TAB PO SCH (08:00)
[2017-02-14] MEDS: INSULIN ASPART 100 UNITS/ML 3 ML PEN SC SCH ×4 (08:47→20:33)
[2017-02-14] MEDS: INSULIN GLARGINE SOLOSTAR 100 UNITS/ML 3 ML PEN SQ SCH (08:51)
[2017-02-14] MEDS: LACTULOSE SYRUP 30 GM/45 ML UDP PO SCH ×2 (08:58→20:31)
[2017-02-14] MEDS: RASPBERRY SYRUP 5 ML UDP PO SCH ×4 (09:00→20:32)
[2017-02-14] MEDS: PANTOprazole SOD 40 MG TAB PO SCH (09:00)
[2017-02-14] MEDS: METOLAZONE 5 MG TAB PO SCH (09:00)
[2017-02-14] MEDS: VANCOMYCIN HCL 125 MG/2.5ML SOLN PO SCH ×4 (09:03→20:32)
--- NOTE | 2017-02-14 10:36 | Nephrology Progress Note ---
Nephrology Progress Note Date of Service: Feb 14, 2017. Subjective 87 yo male with cirrhosis, chronic volume overload, hypotension, ckd who gets intermittent paracentesis and continues to third space fluid. pt underwent another paracentesis yesterday and overall feels much more comfortable. pt says he had no idea how much fluid was in him. wounds on legs are slowly healing. pt urinating well with keyes catheter. no lightheadedness. Objective Date Time Temp Pulse Resp B/P (MAP) Pulse Ox O2 Delivery O2 Flow Rate FiO2 02/14/17 09:35 Room Air 02/14/17 08:00 Room Air 02/14/17 06:43 37.0 68 18 80/47 (58) 99 02/14/17 05:00 77 91/59 (70) 02/14/17 04:05 85 90/54 (66) 02/14/17 00:01 CPAP 3.0 02/14/17 00:00 36.4 67 18 89/59 (69) 96 02/13/17 21:00 89/56 (67) 02/13/17 20:00 Room Air 02/13/17 19:40 70 98/54 (69) 02/13/17 17:11 84 94/58 (70) 02/13/17 16:51 81 85/57 (66) 02/13/17 16:04 75 89/54 (66) 02/13/17 16:00 Room Air 02/13/17 15:28 98 94/59 (71) 02/13/17 14:59 36.4 93 18 101/62 (75) 98 Room Air 02/13/17 12:16 82 91/58 (69) 02/13/17 10:38 62 84/48 (60) Physical Exam: General-aaox3 Eyes-no scleral icterus ENT-mmm Neck-supple Lungs-clear Heart-3/6 systolic murmur Abdomen-bs+/nontender/mild distention Extremities-+2 edema Neuro-nonfocal Current Inpatient Medications Medications (Trade) Dose Ordered Sig/Gin Route Start Time Stop Time Status Last Admin Dose Admin Acetaminophen (Tylenol Tab) 325 mg Q6H PRN PO 02/07/17 00:15 03/09/17 00:14 Insulin Aspart (novoLOG ASPART) SLIDING SCALE If C... ACHS SC 02/07/17 06:30 03/09/17 06:29 02/13/17 21:12 1 UNITS Glucose (Glucose 40% Gel) 15-30 GRAMS 15 GRAMS... UD PRN PO 02/07/17 00:15 03/09/17 00:14 Glucose (Glucose Chew Tab) 4-8 Tablets 4 Tabl... UD PRN PO 02/07/17 00:15 03/09/17 00:14 Dextrose (Dextrose 50% 50ML Syringe) 25-50ML OF 50% DW IV FOR... UD PRN IV 02/07/17 00:15 03/09/17 00:14 Glucagon (Glucagon Inj) 1 mg UD PRN SQ 02/07/17 00:15 03/09/17 00:14 Famotidine (Pepcid Tab) 20 mg QPM PO 02/07/17 21:00 03/09/17 20:59 02/13/17 19:33 20 MG Folic Acid (Folvite Tab) 1 mg DAILY PO 02/07/17 08:00 03/09/17 07:59 02/14/17 09:00 1 MG Lactulose (Chronulac Syrup) 10 gm TID PO 02/07/17 08:00 03/09/17 07:59 Future Hold 02/07/17 07:54 10 GM Metoprolol Succinate (Toprol Xl Tab) 12.5 mg DAILY PO 02/07/17 08:00 03/09/17 07:59 Nitroglycerin (Nitrostat Tab) 0.4 mg PRN UT 02/07/17 00:15 03/09/17 00:14 Pantoprazole Sodium (Protonix Tab) 40 mg DAILY PO 02/07/17 08:00 03/09/17 07:59 02/14/17 09:00 40 MG Insulin Glargine (Lantus Solostar Pen) 5 units DAILY SQ 02/07/17 08:00 03/09/17 07:59 02/14/17 08:51 5 UNITS Tramadol HCl (Ultram Tab) not relieved by tylenol @ Q6H PRN PO 02/07/17 00:15 03/09/17 00:14 Albuterol/ Ipratropium (Duoneb) 3 ml Q2H PRN INH 02/07/17 00:15 03/09/17 00:14 Ondansetron HCl (Zofran Inj) 4 mg Q6H PRN IV 02/07/17 00:15 03/09/17 00:14 Vancomycin HCl (Vancomycin Oral Soln) 125 mg QID PO 02/07/17 17:00 02/21/17 16:59 02/14/17 09:03 125 MG Raspberry (Raspberry Syrup 5ml Cup) 5 ml QID PO 02/07/17 17:00 02/21/17 16:59 02/14/17 09:00 5 ML Lactulose (Chronulac Syrup) 30 gm BID PO 02/08/17 20:00 03/10/17 19:59 02/14/17 08:58 30 GM Furosemide 40 mg/ Albumin Human 54 ml @ 54 mls/hr Q8H IV 02/12/17 20:00 02/14/17 19:59 02/14/17 04:06 54 MLS/HR Midodrine (Proamatine Tab) 2.5 mg DAILY PRN PO 02/12/17 13:00 03/14/17 12:59 02/13/17 16:52 2.5 MG Metolazone (Zaroxolyn Tab) 5 mg QAM PO 02/12/17 14:30 03/14/17 14:29 02/14/17 09:00 5 MG Piperacillin Sod/ Tazobactam Sod (Consult) 1 ea UD PRN N/A 02/13/17 11:10 03/15/17 11:09 Piperacillin Sod/ Tazobactam Sod 3.375 gm/Dextrose 115 ml @ 28.75 mls/ hr Q8H IV 02/13/17 18:00 02/23/17 17:59 02/14/17 01:46 28.75 MLS/HR Midodrine (Proamatine Tab) 2.5 mg [id number] PO 02/14/17 10:15 03/16/17 10:14 UNV Last 24 Hours Test 02/13/17 11:57 02/13/17 14:50 02/13/17 16:19 02/13/17 20:27 Bedside Glucose 217 mg/dl 182 mg/dl 226 mg/dl Peritoneal Fluid Color RED Peritoneal Fluid Appearance CLOUDY Peritoneal Fluid WBC 197 /uL Peritoneal Fluid RBC 45433 /uL Peritoneal Fld Mononuclear WBCs (%) 78.3 % Peritoneal Fld Polynuclear WBCs (%) 21.7 % Test 02/14/17 05:54 02/14/17 07:41 White Blood Count 2.95 K/uL Red Blood Count 2.68 M/uL Hemoglobin 7.2 g/dL Hematocrit 21.8 % Mean Corpuscular Volume 81.3 fL Mean Corpuscular Hemoglobin 26.9 pg Mean Corpuscular Hemoglobin Concent 33.0 g/dl Platelet Count 53 K/uL Mean Platelet Volume 8.5 fL Neutrophils (%) (Auto) 77.2 % Lymphocytes (%) (Auto) 5.4 % Monocytes (%) (Auto) 13.6 % Eosinophils (%) (Auto) 3.1 % Basophils (%) (Auto) 0.7 % Neutrophils # (Auto) 2.28 K/uL Lymphocytes # (Auto) 0.16 K/uL Monocytes # (Auto) 0.40 K/uL Eosinophils # (Auto) 0.09 K/uL Basophils # (Auto) 0.02 K/uL RDW Standard Deviation 52.2 fL RDW Coefficient of Variation 17.5 % Immature Granulocyte % (Auto) 0.0 % Immature Granulocyte # (Auto) 0.00 K/uL Basophilic Stippling 1+ Anisocytosis PRESENT Ovalocytes 1+ Sodium Level 140 mmol/L Potassium Level 3.0 mmol/L Chloride Level 105 mmol/L Carbon Dioxide Level 26 mmol/L Anion Gap 9.0 mmol/L Blood Urea Nitrogen 31 mg/dl Creatinine 2.40 mg/dl Est Creatinine Clear Calc Drug Dose 27.9 ml/min Estimated GFR () 27.1 Estimated GFR (Non- 23.4 BUN/Creatinine Ratio 12.9 Random Glucose 134 mg/dl Calcium Level 7.6 mg/dl Bedside Glucose 136 mg/dl Date/Time Source Procedure Growth Status 02/13/17 14:50 Ascities Fluid Acid Fast Stain Pending Received 02/13/17 14:50 Ascities Fluid Mycobacterial Culture Pending Received 02/13/17 14:50 Ascities Fluid Gram Stain - Final Resulted 02/13/17 14:50 Ascities Fluid Bacterial Culture Pending Resulted Assessment & Plan ckd stage 4-creatinine 2.8-dtonxs-[id number] aggressively with albumin/lasix 40 iv q8. pt put out close to 2 liters of fluid yesterday. . pts systolic at times is below 90. would like to add midodrine 2.5mg po bid as suppose to a prn dose to help raise the blood pressures. since responding nicely to the current diuretics, would continue current meds but adding midodrine scheduled as suppose to prn. hypokalemia-would give 40meq of k now and again this afternoon to help raise the potassium levels and recheck bmp tonight.
[2017-02-14] MEDS ORDERED: POTASSIUM CHLORIDE 10 MEQ TABCR PO ONE ×3 (10:45→22:45)
[2017-02-14] MEDS: MIDODRINE 2.5 MG TAB PO SCH ×2 (12:44→15:00)
[2017-02-14] MEDS ORDERED: POTASSIUM CHLORIDE 20 MEQ TABCR PO SCH (15:00)
[2017-02-14 18:48] LABS: BUN/CREATININE RATIO 12.8 (10-20); CALCIUM 7.9 mg/dl (8.5-10.1); CREATININE 2.4 mg/dl (0.60-1.40); MAGNESIUM 2.2 mg/dl (1.8-2.4); POTASSIUM 2.9 mmol/L (3.5-5.1)
[2017-02-14] MEDS: FAMOTIDINE 20 MG TAB PO SCH (20:32)
[2017-02-14] MEDS ORDERED: CEFEPIME CONSULT ACTIVE PRN ×2 (20:45)
[2017-02-14 22:26] LABS: BUN/CREATININE RATIO 12.2 (10-20); CALCIUM 7.9 mg/dl (8.5-10.1); CREATININE 2.6 mg/dl (0.60-1.40)
[2017-02-15] VITALS (13 sets, daily range): BP systolic 89–114; BP diastolic 50–69; PULSE 62–80; TEMP 36.3–36.7; O2SAT 95–100
[2017-02-15] MEDS ORDERED: CEFEPIME IV 2000 MG in DEXTROSE 5% 100ML IV SCH ×2
--- NOTE | 2017-02-15 05:05 | Progress Note ---
Medicine Progress Note Date & Time of Visit: Feb 15, 2017 at 04:58. Subjective delayed entry date of service 02/14/17 seen resting in bed, watching TV, comfortable states he feels fine overall denies abdominal pain, nausea no dyspnea still has occasional diarrhea no other symptoms Objective Last 8 Hrs Date Time Temp Pulse Resp B/P (MAP) Pulse Ox O2 Delivery O2 Flow Rate FiO2 02/15/17 01:02 36.7 66 18 98/60 (73) 100 CPAP 02/14/17 23:50 Room Air Physical Exam: General-oriented x 2, not in distress, speaks in sentences with no effort Eyes- anicteric Lungs-clear BS BL no rales/wheezes Heart- regular rhythm; no murmur, normal rate Abdomen- (+) moderately distended, normal bowel sounds, soft, nontender Extremities-grade 1-2 lower leg edema- improving, no calf tenderness Neuro- alert, oriented x 2; no gross focal deficits Skin- warm & dry Laboratory Results: Last 24 Hours Test 02/14/17 05:54 02/14/17 07:41 02/14/17 11:21 02/14/17 17:02 White Blood Count 2.95 K/uL Red Blood Count 2.68 M/uL Hemoglobin 7.2 g/dL Hematocrit 21.8 % Mean Corpuscular Volume 81.3 fL Mean Corpuscular Hemoglobin 26.9 pg Mean Corpuscular Hemoglobin Concent 33.0 g/dl Platelet Count 53 K/uL Mean Platelet Volume 8.5 fL Neutrophils (%) (Auto) 77.2 % Lymphocytes (%) (Auto) 5.4 % Monocytes (%) (Auto) 13.6 % Eosinophils (%) (Auto) 3.1 % Basophils (%) (Auto) 0.7 % Neutrophils # (Auto) 2.28 K/uL Lymphocytes # (Auto) 0.16 K/uL Monocytes # (Auto) 0.40 K/uL Eosinophils # (Auto) 0.09 K/uL Basophils # (Auto) 0.02 K/uL RDW Standard Deviation 52.2 fL RDW Coefficient of Variation 17.5 % Immature Granulocyte % (Auto) 0.0 % Immature Granulocyte # (Auto) 0.00 K/uL Basophilic Stippling 1+ Anisocytosis PRESENT Ovalocytes 1+ Sodium Level 140 mmol/L Potassium Level 3.0 mmol/L Chloride Level 105 mmol/L Carbon Dioxide Level 26 mmol/L Anion Gap 9.0 mmol/L Blood Urea Nitrogen 31 mg/dl Creatinine 2.40 mg/dl Est Creatinine Clear Calc Drug Dose 27.9 ml/min Estimated GFR () 27.1 Estimated GFR (Non- 23.4 BUN/Creatinine Ratio 12.9 Random Glucose 134 mg/dl Calcium Level 7.6 mg/dl Bedside Glucose 136 mg/dl 188 mg/dl 189 mg/dl Test 02/14/17 18:19 02/14/17 19:43 02/14/17 21:59 Sodium Level 138 mmol/L 138 mmol/L Potassium Level 2.9 mmol/L 3.0 mmol/L Chloride Level 103 mmol/L 103 mmol/L Carbon Dioxide Level 26 mmol/L 25 mmol/L Anion Gap 9.0 mmol/L 10.0 mmol/L Blood Urea Nitrogen 31 mg/dl 32 mg/dl Creatinine 2.40 mg/dl 2.60 mg/dl Est Creatinine Clear Calc Drug Dose 26.9 ml/min 24.9 ml/min Estimated GFR () 27.1 24.6 Estimated GFR (Non- 23.4 21.2 BUN/Creatinine Ratio 12.8 12.2 Random Glucose 192 mg/dl 248 mg/dl Calcium Level 7.9 mg/dl 7.9 mg/dl Magnesium Level 2.2 mg/dl Bedside Glucose 213 mg/dl Assessment & Plan 87 year old male with history of Paroxysmal A fib, DM, CKD, COPD, Cirrhosis presenting with increasing abdominal girth. 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 - usually on lasix 80mg po daily transitioned to lasix IV + albumin BID day 5 diuresing more since Lasix increased 02/09: (+) increased abdominal girth repeat paracentesis ordered 02/10: s/p repeat Paracentesis, drained 3 L urine output decreasing started Albumin 4 doses, continued Lasix + albumin Midodrine PRN for hypotension 02/11: continue monitoring diuresis on Lasix IV + albumin BP stable 02/12: (+) oliguria but crea stable denies dyspnea Lasix + Albumin increased 02/13: Urine output increased continued Lasix + Alubmin q8h , Metolazone -- diuresing better on Lasix 80mg IV + Albumin q8h Midodrine added as patient's BP borderline appreciate Nephro SVC input - monitor Plt 50-60s no signs of bleeding - may need weekly paracentesis as outpatient CKD 4 - crea stable - management per #1 PSEUDOMONAS, PROTEUS UTI - no chills today, afebrile - ff up blood cultures, ascitic fluid cultures - changed Zosyn to Cefepime based on sensitivities patient has C diff, caution re: duration of antibiotics C DIFF COLITIS - On Vanco PO Day 11/28 diarrhea now intermittent, monitor MARGINAL BP - asymptomatic monitor - Decreased home beta noman dose by half Midodrine BID ordered DM2, insulin requiring well controlled as of recent hemoglobin A1c was 6.2 - continue Lantus and ISS Chronic anemia -- s/p 1 unit pRBC for Hg 6 -- Hg 7.1 will only transfuse if Hg < 7 due to liver cirrhosis, possible portal hypertension monitor Possible Pancytopenia secondary to 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 -- will consult Hematology if levels decrease in trend sick sinus syndrome status post pacemaker hx HOCM sp myomectomy COPD as per records Pulmo-status at baseline DVT prophylaxis, SCDs RE thrombocytopenia DNR. Dispo pending eval and management of ascites, volume overload, CKD 4 in progress currently staying at [facility] Current Inpatient Medications: Current Inpatient Medications Medications (Trade) Dose Ordered Sig/Gin Route Start Time Stop Time Status Last Admin Dose Admin Acetaminophen (Tylenol Tab) 325 mg Q6H PRN PO 02/07/17 00:15 03/09/17 00:14 Insulin Aspart (novoLOG ASPART) SLIDING SCALE If C... ACHS SC 02/07/17 06:30 03/09/17 06:29 02/14/17 20:33 1 UNITS Glucose (Glucose 40% Gel) 15-30 GRAMS 15 GRAMS... UD PRN PO 02/07/17 00:15 03/09/17 00:14 Glucose (Glucose Chew Tab) 4-8 Tablets 4 Tabl... UD PRN PO 02/07/17 00:15 03/09/17 00:14 Dextrose (Dextrose 50% 50ML Syringe) 25-50ML OF 50% DW IV FOR... UD PRN IV 02/07/17 00:15 03/09/17 00:14 Glucagon (Glucagon Inj) 1 mg UD PRN SQ 02/07/17 00:15 03/09/17 00:14 Famotidine (Pepcid Tab) 20 mg QPM PO 02/07/17 21:00 03/09/17 20:59 02/14/17 20:32 20 MG Folic Acid (Folvite Tab) 1 mg DAILY PO 02/07/17 08:00 03/09/17 07:59 02/14/17 09:00 1 MG Lactulose (Chronulac Syrup) 10 gm TID PO 02/07/17 08:00 03/09/17 07:59 Future Hold 02/07/17 07:54 10 GM Metoprolol Succinate (Toprol Xl Tab) 12.5 mg DAILY PO 02/07/17 08:00 03/09/17 07:59 Nitroglycerin (Nitrostat Tab) 0.4 mg PRN UT 02/07/17 00:15 03/09/17 00:14 Pantoprazole Sodium (Protonix Tab) 40 mg DAILY PO 02/07/17 08:00 03/09/17 07:59 02/14/17 09:00 40 MG Insulin Glargine (Lantus Solostar Pen) 5 units DAILY SQ 02/07/17 08:00 03/09/17 07:59 02/14/17 08:51 5 UNITS Tramadol HCl (Ultram Tab) not relieved by tylenol @ Q6H PRN PO 02/07/17 00:15 03/09/17 00:14 Albuterol/ Ipratropium (Duoneb) 3 ml Q2H PRN INH 02/07/17 00:15 03/09/17 00:14 Ondansetron HCl (Zofran Inj) 4 mg Q6H PRN IV 02/07/17 00:15 03/09/17 00:14 Vancomycin HCl (Vancomycin Oral Soln) 125 mg QID PO 02/07/17 17:00 02/21/17 16:59 02/14/17 20:32 125 MG Raspberry (Raspberry Syrup 5ml Cup) 5 ml QID PO 02/07/17 17:00 02/21/17 16:59 02/14/17 20:32 5 ML Lactulose (Chronulac Syrup) 30 gm BID PO 02/08/17 20:00 03/10/17 19:59 02/14/17 20:31 30 GM Metolazone (Zaroxolyn Tab) 5 mg QAM PO 02/12/17 14:30 03/14/17 14:29 02/14/17 09:00 5 MG Midodrine (Proamatine Tab) 2.5 mg [id number] PO 02/14/17 10:15 03/16/17 10:14 02/14/17 15:00 2.5 MG Cefepime HCl (Consult) 1 ea UD PRN N/A 02/14/17 20:45 03/16/17 20:44 Cefepime HCl 1000 mg/Dextrose 111.3 ml @ 222.6 mls/ hr Q24H IV 02/16/17 00:00 02/24/17 00:00
[2017-02-15 07:11] LABS: HEMATOCRIT 23.3 % (42-52); MEAN CELL VOLUME 81.8 fL (80-100); MEAN CORPUSCULAR HEMOGLOBIN 26.3 pg (25-34); MEAN CORPUSCULAR HGB CONC 32.2 g/dl (32-36); RED BLOOD COUNT 2.85 M/uL (4.7-6.1); WHITE BLOOD COUNT 2.74 K/uL (4.8-10.8)
[2017-02-15 07:15] LABS: MEAN PLATELET VOLUME 9.7 fL (7.4-10.4); PLATELET COUNT 66 K/uL (130-400)
[2017-02-15 07:33] LABS: ANISOCYTOSIS PRESENT; BASO % 0.7 %; BASO ABS # 0.02 K/uL (0-0.2); COMPLETE YES; EOS % 2.6 %; LYMPH % 7.7 %; LYMPH ABS # 0.21 K/uL (1.2-3.4); MONO % 13.5 %; NEUT % 75.5 %; OVALOCYTES 1+
--- NOTE | 2017-02-15 07:40 | Nephrology Progress Note ---
Nephrology Progress Note Date of Service: Feb 15, 2017. Subjective 87 yo male with cirrhosis, chronic volume overload, hypotension, had paracentesis on monday and again on monday. today, pts abdominal distention worse. on high dose diuretics and on midodrine to help raise the blood pressures. unfortunately, continues to third space fluid. Objective Date Time Temp Pulse Resp B/P (MAP) Pulse Ox O2 Delivery O2 Flow Rate FiO2 02/15/17 07:28 36.5 72 16 89/53 (65) 100 BiPAP 02/15/17 01:02 36.7 66 18 98/60 (73) 100 CPAP 02/14/17 23:50 Room Air 02/14/17 16:23 36.6 73 20 111/64 (80) 100 Room Air 02/14/17 15:20 Room Air 02/14/17 12:55 63 97/58 (71) 02/14/17 11:28 36.7 87 16 88/52 (64) 97 Room Air 02/14/17 09:35 Room Air 02/14/17 08:00 Room Air Physical Exam: General-aaox3 Eyes-no scleral icterus ENT-mmm Neck-supple Lungs-cta Heart-3/6 systolic murmur Abdomen-bs+/nontender/+distention Extremities-+2 edema Neuro-nonfocal Current Inpatient Medications Medications (Trade) Dose Ordered Sig/Gin Route Start Time Stop Time Status Last Admin Dose Admin Acetaminophen (Tylenol Tab) 325 mg Q6H PRN PO 02/07/17 00:15 03/09/17 00:14 Insulin Aspart (novoLOG ASPART) SLIDING SCALE If C... ACHS SC 02/07/17 06:30 03/09/17 06:29 02/14/17 20:33 1 UNITS Glucose (Glucose 40% Gel) 15-30 GRAMS 15 GRAMS... UD PRN PO 02/07/17 00:15 03/09/17 00:14 Glucose (Glucose Chew Tab) 4-8 Tablets 4 Tabl... UD PRN PO 02/07/17 00:15 03/09/17 00:14 Dextrose (Dextrose 50% 50ML Syringe) 25-50ML OF 50% DW IV FOR... UD PRN IV 02/07/17 00:15 03/09/17 00:14 Glucagon (Glucagon Inj) 1 mg UD PRN SQ 02/07/17 00:15 03/09/17 00:14 Famotidine (Pepcid Tab) 20 mg QPM PO 02/07/17 21:00 03/09/17 20:59 02/14/17 20:32 20 MG Folic Acid (Folvite Tab) 1 mg DAILY PO 02/07/17 08:00 03/09/17 07:59 02/14/17 09:00 1 MG Lactulose (Chronulac Syrup) 10 gm TID PO 02/07/17 08:00 03/09/17 07:59 Future Hold 02/07/17 07:54 10 GM Metoprolol Succinate (Toprol Xl Tab) 12.5 mg DAILY PO 02/07/17 08:00 03/09/17 07:59 Nitroglycerin (Nitrostat Tab) 0.4 mg PRN UT 02/07/17 00:15 03/09/17 00:14 Pantoprazole Sodium (Protonix Tab) 40 mg DAILY PO 02/07/17 08:00 03/09/17 07:59 02/14/17 09:00 40 MG Insulin Glargine (Lantus Solostar Pen) 5 units DAILY SQ 02/07/17 08:00 03/09/17 07:59 02/14/17 08:51 5 UNITS Tramadol HCl (Ultram Tab) not relieved by tylenol @ Q6H PRN PO 02/07/17 00:15 03/09/17 00:14 Albuterol/ Ipratropium (Duoneb) 3 ml Q2H PRN INH 02/07/17 00:15 03/09/17 00:14 Ondansetron HCl (Zofran Inj) 4 mg Q6H PRN IV 02/07/17 00:15 03/09/17 00:14 Vancomycin HCl (Vancomycin Oral Soln) 125 mg QID PO 02/07/17 17:00 02/21/17 16:59 02/14/17 20:32 125 MG Raspberry (Raspberry Syrup 5ml Cup) 5 ml QID PO 02/07/17 17:00 02/21/17 16:59 02/14/17 20:32 5 ML Lactulose (Chronulac Syrup) 30 gm BID PO 02/08/17 20:00 03/10/17 19:59 02/14/17 20:31 30 GM Metolazone (Zaroxolyn Tab) 5 mg QAM PO 02/12/17 14:30 03/14/17 14:29 02/14/17 09:00 5 MG Midodrine (Proamatine Tab) 2.5 mg [id number] PO 02/14/17 10:15 03/16/17 10:14 02/14/17 15:00 2.5 MG Cefepime HCl (Consult) 1 ea UD PRN N/A 02/14/17 20:45 03/16/17 20:44 Cefepime HCl 1000 mg/Dextrose 111.3 ml @ 222.6 mls/ hr Q24H IV 02/16/17 00:00 02/24/17 00:00 Furosemide 40 mg/ Albumin Human 54 ml @ 54 mls/hr Q8H IV 02/15/17 08:00 02/18/17 07:59 Last 24 Hours Test 02/14/17 07:41 02/14/17 11:21 02/14/17 17:02 02/14/17 18:19 Bedside Glucose 136 mg/dl 188 mg/dl 189 mg/dl Sodium Level 138 mmol/L Potassium Level 2.9 mmol/L Chloride Level 103 mmol/L Carbon Dioxide Level 26 mmol/L Anion Gap 9.0 mmol/L Blood Urea Nitrogen 31 mg/dl Creatinine 2.40 mg/dl Est Creatinine Clear Calc Drug Dose 26.9 ml/min Estimated GFR () 27.1 Estimated GFR (Non- 23.4 BUN/Creatinine Ratio 12.8 Random Glucose 192 mg/dl Calcium Level 7.9 mg/dl Magnesium Level 2.2 mg/dl Test 02/14/17 19:43 02/14/17 21:59 02/15/17 06:39 Bedside Glucose 213 mg/dl Sodium Level 138 mmol/L Potassium Level 3.0 mmol/L Chloride Level 103 mmol/L Carbon Dioxide Level 25 mmol/L Anion Gap 10.0 mmol/L Blood Urea Nitrogen 32 mg/dl Creatinine 2.60 mg/dl Est Creatinine Clear Calc Drug Dose 24.9 ml/min Estimated GFR () 24.6 Estimated GFR (Non- 21.2 BUN/Creatinine Ratio 12.2 Random Glucose 248 mg/dl Calcium Level 7.9 mg/dl White Blood Count 2.74 K/uL Red Blood Count 2.85 M/uL Hemoglobin 7.5 g/dL Hematocrit 23.3 % Mean Corpuscular Volume 81.8 fL Mean Corpuscular Hemoglobin 26.3 pg Mean Corpuscular Hemoglobin Concent 32.2 g/dl Platelet Count 66 K/uL Mean Platelet Volume 9.7 fL Neutrophils (%) (Auto) 75.5 % Lymphocytes (%) (Auto) 7.7 % Monocytes (%) (Auto) 13.5 % Eosinophils (%) (Auto) 2.6 % Basophils (%) (Auto) 0.7 % Neutrophils # (Auto) 2.07 K/uL Lymphocytes # (Auto) 0.21 K/uL Monocytes # (Auto) 0.37 K/uL Eosinophils # (Auto) 0.07 K/uL Basophils # (Auto) 0.02 K/uL RDW Standard Deviation 52.7 fL RDW Coefficient of Variation 17.6 % Immature Granulocyte % (Auto) 0.0 % Immature Granulocyte # (Auto) 0.00 K/uL Anisocytosis PRESENT Ovalocytes 1+ Assessment & Plan ckd stage 4-creatinine 2.6-realtively stable-similar to previous hospitilizations with chronic volume overload-despite aggressive measures-pt continues to have significant third spacing of fluids. currently on albumin with lasix 40 iv q8, metolazone 5 a day. putting out about 2 liters a day. will increase the albumin with lasix to 80 iv q8. dealing with low blood pressures and on midodrine 2.5 bid. Will discuss further with GI. Feel pt may need scheduled twice a week large volume paracentesis to help with his chronic volume overload. hypokalemia-k is low with the aggressive diuresis. will start kdur 40meq po bid.
[2017-02-15 07:41] LABS: BUN/CREATININE RATIO 12.1 (10-20); CALCIUM 8.2 mg/dl (8.5-10.1); CREATININE 2.5 mg/dl (0.60-1.40); POTASSIUM 3.7 mmol/L (3.5-5.1)
[2017-02-15] MEDS ORDERED: ALBUMIN 25% 50 ML with FUROSEMIDE INJ 40 MG IV SCH ×2 (08:00)
[2017-02-15] MEDS: RASPBERRY SYRUP 5 ML UDP PO SCH ×4 (08:40→21:02)
[2017-02-15] MEDS: VANCOMYCIN HCL 125 MG/2.5ML SOLN PO SCH ×4 (08:40→21:01)
[2017-02-15] MEDS: METOPROLOL SUCC 25MG EXT REL TAB PO SCH (08:41)
[2017-02-15] MEDS: PANTOprazole SOD 40 MG TAB PO SCH (08:41)
[2017-02-15] MEDS: MIDODRINE 2.5 MG TAB PO SCH ×2 (08:42→14:35)
[2017-02-15] MEDS: METOLAZONE 5 MG TAB PO SCH (08:44)
[2017-02-15] MEDS: LACTULOSE SYRUP 30 GM/45 ML UDP PO SCH ×2 (08:44→21:02)
[2017-02-15] MEDS: INSULIN ASPART 100 UNITS/ML 3 ML PEN SC SCH ×4 (08:52→21:09)
[2017-02-15] MEDS: INSULIN GLARGINE SOLOSTAR 100 UNITS/ML 3 ML PEN SQ SCH (08:52)
[2017-02-15] MEDS: ALBUMIN 25% 50 ML with FUROSEMIDE INJ 80 MG IV SCH ×4 (08:54→18:07)
[2017-02-15] MEDS: POTASSIUM CHLORIDE 10 MEQ TABCR PO SCH ×2 (09:04→21:03)
[2017-02-15] MEDS: ALBUMIN HUMAN 25% 12.5 GM/50 ML VIAL IV SCH ×4 (13:12→18:07)
--- NOTE | 2017-02-15 13:13 | Progress Note ---
Progress Note Date of Service Feb 15, 2017. (Tameka Maurer CRNP) Progress Note GI asked by Nephrology (Dr. Fowler) to re-evaluate pt for possible repeat paracentesis. Pt is a 87 y/o male w hx of cirrhosis (etiology unknown ? NAFLD), complicated by ascites and HE development. He was seen previously by ARMINDA Rodríguez and Dr. Floyd earlier during his admission for diarrhea and ascites development. He was found to have Cdiff, currently on Vancomycin. Also on Cefepime for UTI. He had received u/s guided paracentesis on 02/07 (5L) and 02/10 (3L), no signs of SBP on fluid analysis. Nephro managing volume overload in setting of CKD IV. He had been on Lasix 40mg w Albumin 12.5g q8h IV, now increased Lasix dose to 80mg q8hr, Midodrine 2.5mg BID for low BPs, Metolazone 5mg daily. Weight decreased from 118kg to 103kg since admission, current UOP rate 0.77ml/kg/hr which is improved from admission. Labs, VS reviewed. Exam: Pt sitting up in chair, alert oriented mostly to self only. Lung diminished bases, no rales/crackles HR regular no murmur or gallops Abd distended but not tense, non tender, BS hypoactive. Legs w +1-2 edema. - Will plan for repeat u/s guided paracentesis w 4L ascites removal. Will add another Albumin 25% 50g IV today. - Further diuretic management per Nephrology. (Tameka Maurer CRNP) I reviewed chart and labs, examined pt. His ascites is much improved with large vlume paracentesis. May repeat this procedure if needed. Please call with questions. (Erick Salmon M.D.)
--- NOTE | 2017-02-15 16:10 | DIAGNOSTIC IMAGING REPORT ---
PARACENTESIS ABDOMEN W/IMAGING CLINICAL HISTORY: 87 years-old Male presenting with ascites. COMPARISON: 02/13/2017. PROCEDURE: The procedure and its risks, benefits and alternatives were discussed with the patient, and written informed consent was obtained. A timeout was performed to confirm patient identity. Limited ultrasound of the abdomen was performed to determine a safe needle entry site. The right lower quadrant was prepped and draped in the usual aseptic fashion. 1% Lidocaine was used for local anesthesia. A paracentesis needle-sheath was inserted into the peritoneal space using ultrasound guidance. The needle was removed and the sheath was connected to tubing and a vacuum suction device. A total of 5 L of cloudy brown ascites was aspirated. The sheath was removed, and a dressing applied. The patient tolerated the procedure well. No immediate complications. The patient was receiving albumin at the time of the paracentesis. IMPRESSION: Ultrasound-guided therapeutic paracentesis with aspiration of 5 L of cloudy brown ascites. Electronically signed by: Ariel Ward M.D. 02/15/2017 4:09 PM Dictated Date/Time: 02/15/2017 4:08 PM
--- NOTE | 2017-02-15 18:41 | Progress Note ---
Subjective Date of Service: Feb 15, 2017. Subjective Pt evaluation today including: conversation w/ patient, physical exam, lab review, review of studies, review of inpatient medication list Saw/examined the patient in room 415 abdominal swelling persists No significant pain no fevers/chills Problem List Medical Problems: (1) Acute on chronic renal failure Status: Acute (2) MAGEN (acute kidney injury) Status: Acute (3) Anasarca Status: Acute (4) Anasarca Status: Acute (5) Bilateral leg edema Status: Acute (6) CHF (congestive heart failure) Status: Acute (7) CHF (congestive heart failure) Status: Acute (8) Dehydration Status: Acute (9) Dyspnea on exertion Status: Acute (10) Elevated lactic acid level Status: Acute (11) Elevated troponin Status: Acute (12) Hypotension Status: Acute (13) Pulmonary edema Status: Acute (14) Right heart failure Status: Acute Review of Systems Constitutional: No fever, No chills Respiratory: No shortness of breath Cardiac: No chest pain Abdomen: + pain, + problem reported (swelling), No nausea, No vomiting, No diarrhea Medications Current Inpatient Medications Medications (Trade) Dose Ordered Sig/Gin Route Start Time Stop Time Status Last Admin Dose Admin Acetaminophen (Tylenol Tab) 325 mg Q6H PRN PO 02/07/17 00:15 03/09/17 00:14 Insulin Aspart (novoLOG ASPART) SLIDING SCALE If C... ACHS SC 02/07/17 06:30 03/09/17 06:29 02/15/17 17:22 1 UNITS Glucose (Glucose 40% Gel) 15-30 GRAMS 15 GRAMS... UD PRN PO 02/07/17 00:15 03/09/17 00:14 Glucose (Glucose Chew Tab) 4-8 Tablets 4 Tabl... UD PRN PO 02/07/17 00:15 03/09/17 00:14 Dextrose (Dextrose 50% 50ML Syringe) 25-50ML OF 50% DW IV FOR... UD PRN IV 02/07/17 00:15 03/09/17 00:14 Glucagon (Glucagon Inj) 1 mg UD PRN SQ 02/07/17 00:15 03/09/17 00:14 Famotidine (Pepcid Tab) 20 mg QPM PO 02/07/17 21:00 03/09/17 20:59 02/14/17 20:32 20 MG Folic Acid (Folvite Tab) 1 mg DAILY PO 02/07/17 08:00 03/09/17 07:59 02/15/17 08:43 1 MG Lactulose (Chronulac Syrup) 10 gm TID PO 02/07/17 08:00 03/09/17 07:59 Future Hold 02/07/17 07:54 10 GM Metoprolol Succinate (Toprol Xl Tab) 12.5 mg DAILY PO 02/07/17 08:00 03/09/17 07:59 02/15/17 08:41 12.5 MG Nitroglycerin (Nitrostat Tab) 0.4 mg PRN UT 02/07/17 00:15 03/09/17 00:14 Pantoprazole Sodium (Protonix Tab) 40 mg DAILY PO 02/07/17 08:00 03/09/17 07:59 02/15/17 08:41 40 MG Insulin Glargine (Lantus Solostar Pen) 5 units DAILY SQ 02/07/17 08:00 03/09/17 07:59 02/15/17 08:52 5 UNITS Tramadol HCl (Ultram Tab) not relieved by tylenol @ Q6H PRN PO 02/07/17 00:15 03/09/17 00:14 Albuterol/ Ipratropium (Duoneb) 3 ml Q2H PRN INH 02/07/17 00:15 03/09/17 00:14 Ondansetron HCl (Zofran Inj) 4 mg Q6H PRN IV 02/07/17 00:15 03/09/17 00:14 Vancomycin HCl (Vancomycin Oral Soln) 125 mg QID PO 02/07/17 17:00 02/21/17 16:59 02/15/17 17:23 125 MG Raspberry (Raspberry Syrup 5ml Cup) 5 ml QID PO 02/07/17 17:00 02/21/17 16:59 02/15/17 17:22 5 ML Lactulose (Chronulac Syrup) 30 gm BID PO 02/08/17 20:00 03/10/17 19:59 02/15/17 08:44 30 GM Metolazone (Zaroxolyn Tab) 5 mg QAM PO 02/12/17 14:30 03/14/17 14:29 02/15/17 08:44 5 MG Midodrine (Proamatine Tab) 2.5 mg [id number] PO 02/14/17 10:15 03/16/17 10:14 02/15/17 14:35 2.5 MG Cefepime HCl (Consult) 1 ea UD PRN N/A 02/14/17 20:45 03/16/17 20:44 Cefepime HCl 1000 mg/Dextrose 111.3 ml @ 222.6 mls/ hr Q24H IV 02/16/17 00:00 02/24/17 00:00 Furosemide 80 mg/ Albumin Human 58 ml @ 54 mls/hr Q8H IV 02/15/17 09:00 02/18/17 08:59 02/15/17 18:07 54 MLS/HR Potassium Chloride (Klor-Con M10) 40 meq BID PO 02/15/17 09:00 03/17/17 08:59 02/15/17 09:04 40 MEQ Objective Vital Signs Date Time Temp Pulse Resp B/P (MAP) Pulse Ox O2 Delivery O2 Flow Rate FiO2 02/15/17 18:05 79 20 92/50 (64) 95 Room Air 02/15/17 17:20 36.3 80 20 91/55 (67) 02/15/17 16:47 73 18 90/55 (67) 96 Room Air 02/15/17 16:16 36.7 69 18 94/59 (71) 96 Room Air 02/15/17 15:09 36.5 80 20 114/69 (84) 95 Room Air 02/15/17 14:35 36.5 78 18 91/60 (70) 95 02/15/17 13:10 36.5 76 18 90/59 (69) 96 Room Air 02/15/17 10:00 36.6 64 18 95/60 (72) 95 Room Air 02/15/17 09:00 95 Nasal Cannula 3.0 02/15/17 08:50 62 20 93/61 (72) 95 Nasal Cannula 02/15/17 07:28 36.5 72 16 89/53 (65) 100 BiPAP 02/15/17 01:02 36.7 66 18 98/60 (73) 100 CPAP 02/14/17 23:50 Room Air Physical Exam General Appearance: no apparent distress Respiratory/Chest: lungs clear, normal breath sounds, no respiratory distress, no accessory muscle use Cardiovascular: regular rate, rhythm, no edema, no murmur Abdomen: + distended, + tenderness (mild tenderness) Laboratory Results Last 24 Hours Test 02/14/17 19:43 02/14/17 21:59 02/15/17 06:39 02/15/17 07:38 Bedside Glucose 213 mg/dl 182 mg/dl Sodium Level 138 mmol/L 141 mmol/L Potassium Level 3.0 mmol/L 3.7 mmol/L Chloride Level 103 mmol/L 106 mmol/L Carbon Dioxide Level 25 mmol/L 26 mmol/L Anion Gap 10.0 mmol/L 9.0 mmol/L Blood Urea Nitrogen 32 mg/dl 30 mg/dl Creatinine 2.60 mg/dl 2.50 mg/dl Est Creatinine Clear Calc Drug Dose 24.9 ml/min 25.9 ml/min Estimated GFR () 24.6 25.8 Estimated GFR (Non- 21.2 22.3 BUN/Creatinine Ratio 12.2 12.1 Random Glucose 248 mg/dl 186 mg/dl Calcium Level 7.9 mg/dl 8.2 mg/dl White Blood Count 2.74 K/uL Red Blood Count 2.85 M/uL Hemoglobin 7.5 g/dL Hematocrit 23.3 % Mean Corpuscular Volume 81.8 fL Mean Corpuscular Hemoglobin 26.3 pg Mean Corpuscular Hemoglobin Concent 32.2 g/dl Platelet Count 66 K/uL Mean Platelet Volume 9.7 fL Neutrophils (%) (Auto) 75.5 % Lymphocytes (%) (Auto) 7.7 % Monocytes (%) (Auto) 13.5 % Eosinophils (%) (Auto) 2.6 % Basophils (%) (Auto) 0.7 % Neutrophils # (Auto) 2.07 K/uL Lymphocytes # (Auto) 0.21 K/uL Monocytes # (Auto) 0.37 K/uL Eosinophils # (Auto) 0.07 K/uL Basophils # (Auto) 0.02 K/uL RDW Standard Deviation 52.7 fL RDW Coefficient of Variation 17.6 % Immature Granulocyte % (Auto) 0.0 % Immature Granulocyte # (Auto) 0.00 K/uL Anisocytosis PRESENT Ovalocytes 1+ Test 02/15/17 11:41 02/15/17 17:15 Bedside Glucose 229 mg/dl 189 mg/dl Assessment and Plan 87 year old male with history of Paroxysmal A fib, DM, CKD, COPD, Cirrhosis presenting with increasing abdominal girth. 02/15 difficult to control his ascitic fluid from building up he has SHANE cirrhosis appreciate GI and nephrology input unfortunately, even after receiving paracentesis and his diuretics, he has built up again plan for paracentesis today (02/15) - removed 5L of fluid diuretics as per nephrology may need paracentesis twice weekly will consider palliative care/hospice - will need to speak with his daughter 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 - usually on lasix 80mg po daily transitioned to lasix IV + albumin BID day 5 diuresing more since Lasix increased 02/09: (+) increased abdominal girth repeat paracentesis ordered 02/10: s/p repeat Paracentesis, drained 3 L urine output decreasing started Albumin 4 doses, continued Lasix + albumin Midodrine PRN for hypotension 02/11: continue monitoring diuresis on Lasix IV + albumin BP stable 02/12: (+) oliguria but crea stable denies dyspnea Lasix + Albumin increased 02/13: Urine output increased continued Lasix + Alubmin q8h , Metolazone -- diuresing better on Lasix 80mg IV + Albumin q8h Midodrine added as patient's BP borderline appreciate Nephro SVC input - monitor Plt 50-60s no signs of bleeding - may need weekly paracentesis as outpatient CKD 4 - crea stable - management per #1 PSEUDOMONAS, PROTEUS UTI - no chills today, afebrile - ff up blood cultures, ascitic fluid cultures - changed Zosyn to Cefepime based on sensitivities patient has C diff, caution re: duration of antibiotics C DIFF COLITIS - On Vanco PO Day 11/28 diarrhea now intermittent, monitor MARGINAL BP - asymptomatic monitor - Decreased home beta noman dose by half Midodrine BID ordered DM2, insulin requiring well controlled as of recent hemoglobin A1c was 6.2 - continue Lantus and ISS Chronic anemia -- s/p 1 unit pRBC for Hg 6 -- Hg 7.1 will only transfuse if Hg < 7 due to liver cirrhosis, possible portal hypertension monitor hx 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 as per records -- will consult Hematology if levels decrease in trend sick sinus syndrome status post pacemaker hx HOCM sp myomectomy COPD as per records Pulmo-status at baseline DVT prophylaxis, SCDs RE thrombocytopenia DNR. Dispo pending eval and management of ascites, volume overload, CKD 4 in progress currently staying at [facility]
[2017-02-15] MEDS: FAMOTIDINE 20 MG TAB PO SCH (21:04)
[2017-02-16] VITALS (9 sets, daily range): BP systolic 88–96; BP diastolic 46–63; PULSE 52–77; TEMP 36.5–36.9; O2SAT 94–100
[2017-02-16] MEDS: CEFEPIME IV 1,000 MG in DEXTROSE 5% 100ML IV SCH (00:17)
[2017-02-16] MEDS: ALBUMIN 25% 50 ML with FUROSEMIDE INJ 80 MG IV SCH ×6 (01:35→16:50)
[2017-02-16] MEDS: MIDODRINE 2.5 MG TAB PO SCH ×2 (05:59→14:18)
[2017-02-16 06:35] LABS: HEMATOCRIT 24.4 % (42-52); MEAN CELL VOLUME 82.2 fL (80-100); MEAN CORPUSCULAR HEMOGLOBIN 24.6 pg (25-34); MEAN CORPUSCULAR HGB CONC 29.9 g/dl (32-36); RED BLOOD COUNT 2.97 M/uL (4.7-6.1); WHITE BLOOD COUNT 2.43 K/uL (4.8-10.8)
[2017-02-16 06:38] LABS: MEAN PLATELET VOLUME 8.9 fL (7.4-10.4); PLATELET COUNT 63 K/uL (130-400)
[2017-02-16 07:04] LABS: ANISOCYTOSIS PRESENT; BASO % 0.4 %; BASO ABS # 0.01 K/uL (0-0.2); COMPLETE YES; EOS % 2.9 %; LYMPH % 6.6 %; LYMPH ABS # 0.16 K/uL (1.2-3.4); MONO % 10.3 %; NEUT % 79.8 %; OVALOCYTES 1+
[2017-02-16 07:06] LABS: CALCIUM 8.3 mg/dl (8.5-10.1); CREATININE 2.3 mg/dl (0.60-1.40); POTASSIUM 3.4 mmol/L (3.5-5.1)
[2017-02-16] MEDS: RASPBERRY SYRUP 5 ML UDP PO SCH ×4 (08:46→20:32)
[2017-02-16] MEDS: VANCOMYCIN HCL 125 MG/2.5ML SOLN PO SCH ×4 (08:46→20:32)
[2017-02-16] MEDS: METOPROLOL SUCC 25MG EXT REL TAB PO SCH (08:46)
[2017-02-16] MEDS: PANTOprazole SOD 40 MG TAB PO SCH (08:46)
[2017-02-16] MEDS: METOLAZONE 5 MG TAB PO SCH (08:47)
[2017-02-16] MEDS: INSULIN ASPART 100 UNITS/ML 3 ML PEN SC SCH ×4 (08:48→20:42)
[2017-02-16] MEDS: POTASSIUM CHLORIDE 10 MEQ TABCR PO SCH (08:48)
[2017-02-16] MEDS: LACTULOSE SYRUP 30 GM/45 ML UDP PO SCH ×2 (08:48→20:32)
[2017-02-16] MEDS: INSULIN GLARGINE SOLOSTAR 100 UNITS/ML 3 ML PEN SQ SCH (08:50)
--- NOTE | 2017-02-16 10:27 | Nephrology Progress Note ---
Nephrology Progress Note Date of Service: Feb 16, 2017. Subjective up in chair, no c/o pain; had tap yesterday; not dyspneic, abd distension better Objective Date Time Temp Pulse Resp B/P (MAP) Pulse Ox O2 Delivery O2 Flow Rate FiO2 02/16/17 07:30 36.6 72 16 91/52 (65) 100 BiPAP 02/16/17 00:15 36.7 77 18 89/46 (60) 100 CPAP 02/16/17 00:00 Room Air 02/15/17 20:00 Room Air 02/15/17 18:05 79 20 92/50 (64) 95 Room Air 02/15/17 17:20 36.3 80 20 91/55 (67) 02/15/17 16:47 73 18 90/55 (67) 96 Room Air 02/15/17 16:45 95 Nasal Cannula 02/15/17 16:16 36.7 69 18 94/59 (71) 96 Room Air 02/15/17 15:09 36.5 80 20 114/69 (84) 95 Room Air 02/15/17 14:35 36.5 78 18 91/60 (70) 95 02/15/17 13:10 36.5 76 18 90/59 (69) 96 Room Air 02/15/17 10:00 36.6 64 18 95/60 (72) 95 Room Air Physical Exam: General-aaox3, on RA Eyes-no scleral icterus ENT-mmm Neck-supple Lungs-cta w/ diminished bases Heart-distant HS RRR Abdomen-bs+/nontender/+distention; keyes Extremities-+2 edema distally and RLE wound dressed Neuro-nonfocal Current Inpatient Medications Medications (Trade) Dose Ordered Sig/Gin Route Start Time Stop Time Status Last Admin Dose Admin Acetaminophen (Tylenol Tab) 325 mg Q6H PRN PO 02/07/17 00:15 03/09/17 00:14 Insulin Aspart (novoLOG ASPART) SLIDING SCALE If C... ACHS SC 02/07/17 06:30 03/09/17 06:29 02/15/17 21:09 2 UNITS Glucose (Glucose 40% Gel) 15-30 GRAMS 15 GRAMS... UD PRN PO 02/07/17 00:15 03/09/17 00:14 Glucose (Glucose Chew Tab) 4-8 Tablets 4 Tabl... UD PRN PO 02/07/17 00:15 03/09/17 00:14 Dextrose (Dextrose 50% 50ML Syringe) 25-50ML OF 50% DW IV FOR... UD PRN IV 02/07/17 00:15 03/09/17 00:14 Glucagon (Glucagon Inj) 1 mg UD PRN SQ 02/07/17 00:15 03/09/17 00:14 Famotidine (Pepcid Tab) 20 mg QPM PO 02/07/17 21:00 03/09/17 20:59 02/15/17 21:04 20 MG Folic Acid (Folvite Tab) 1 mg DAILY PO 02/07/17 08:00 03/09/17 07:59 02/16/17 08:46 1 MG Lactulose (Chronulac Syrup) 10 gm TID PO 02/07/17 08:00 03/09/17 07:59 Future Hold 02/07/17 07:54 10 GM Metoprolol Succinate (Toprol Xl Tab) 12.5 mg DAILY PO 02/07/17 08:00 03/09/17 07:59 02/15/17 08:41 12.5 MG Nitroglycerin (Nitrostat Tab) 0.4 mg PRN UT 02/07/17 00:15 03/09/17 00:14 Pantoprazole Sodium (Protonix Tab) 40 mg DAILY PO 02/07/17 08:00 03/09/17 07:59 02/16/17 08:46 40 MG Insulin Glargine (Lantus Solostar Pen) 5 units DAILY SQ 02/07/17 08:00 03/09/17 07:59 02/16/17 08:50 5 UNITS Tramadol HCl (Ultram Tab) not relieved by tylenol @ Q6H PRN PO 02/07/17 00:15 03/09/17 00:14 Albuterol/ Ipratropium (Duoneb) 3 ml Q2H PRN INH 02/07/17 00:15 03/09/17 00:14 Ondansetron HCl (Zofran Inj) 4 mg Q6H PRN IV 02/07/17 00:15 03/09/17 00:14 Vancomycin HCl (Vancomycin Oral Soln) 125 mg QID PO 02/07/17 17:00 02/21/17 16:59 02/16/17 08:46 125 MG Raspberry (Raspberry Syrup 5ml Cup) 5 ml QID PO 02/07/17 17:00 02/21/17 16:59 02/16/17 08:46 5 ML Lactulose (Chronulac Syrup) 30 gm BID PO 02/08/17 20:00 03/10/17 19:59 02/16/17 08:48 30 GM Metolazone (Zaroxolyn Tab) 5 mg QAM PO 02/12/17 14:30 03/14/17 14:29 02/16/17 08:47 5 MG Midodrine (Proamatine Tab) 2.5 mg [id number] PO 02/14/17 10:15 03/16/17 10:14 02/16/17 05:59 2.5 MG Cefepime HCl (Consult) 1 ea UD PRN N/A 02/14/17 20:45 03/16/17 20:44 Cefepime HCl 1000 mg/Dextrose 111.3 ml @ 222.6 mls/ hr Q24H IV 02/16/17 00:00 02/24/17 00:00 02/16/17 00:17 222.6 MLS/HR Furosemide 80 mg/ Albumin Human 58 ml @ 54 mls/hr Q8H IV 02/15/17 09:00 02/18/17 08:59 02/16/17 08:51 54 MLS/HR Potassium Chloride (Klor-Con M10) 40 meq BID PO 02/15/17 09:00 03/17/17 08:59 02/16/17 08:48 40 MEQ Last 24 Hours Test 02/15/17 11:41 02/15/17 17:15 02/15/17 20:19 02/16/17 06:09 Bedside Glucose 229 mg/dl 189 mg/dl 236 mg/dl White Blood Count 2.43 K/uL Red Blood Count 2.97 M/uL Hemoglobin 7.3 g/dL Hematocrit 24.4 % Mean Corpuscular Volume 82.2 fL Mean Corpuscular Hemoglobin 24.6 pg Mean Corpuscular Hemoglobin Concent 29.9 g/dl Platelet Count 63 K/uL Mean Platelet Volume 8.9 fL Neutrophils (%) (Auto) 79.8 % Lymphocytes (%) (Auto) 6.6 % Monocytes (%) (Auto) 10.3 % Eosinophils (%) (Auto) 2.9 % Basophils (%) (Auto) 0.4 % Neutrophils # (Auto) 1.94 K/uL Lymphocytes # (Auto) 0.16 K/uL Monocytes # (Auto) 0.25 K/uL Eosinophils # (Auto) 0.07 K/uL Basophils # (Auto) 0.01 K/uL RDW Standard Deviation 52.7 fL RDW Coefficient of Variation 17.7 % Immature Granulocyte % (Auto) 0.0 % Immature Granulocyte # (Auto) 0.00 K/uL Anisocytosis PRESENT Ovalocytes 1+ Sodium Level 141 mmol/L Potassium Level 3.4 mmol/L Chloride Level 106 mmol/L Carbon Dioxide Level 28 mmol/L Anion Gap 7.0 mmol/L Blood Urea Nitrogen 30 mg/dl Creatinine 2.30 mg/dl Est Creatinine Clear Calc Drug Dose 28.1 ml/min Estimated GFR () 28.5 Estimated GFR (Non- 24.6 BUN/Creatinine Ratio 13.0 Random Glucose 146 mg/dl Calcium Level 8.3 mg/dl Test 02/16/17 07:53 Bedside Glucose 153 mg/dl Assessment & Plan 87 yo male with cirrhosis, chronic volume overload, hypotension, had paracentesis on monday and again on monday. today, pts abdominal distention worse. on high dose diuretics and on midodrine to help raise the blood pressures. unfortunately, continues to third space fluid. ckd stage 4-creatinine 2.3, improving in setting of chronic volume overload- despite aggressive measures-pt continues to have significant third spacing of fluids. -cont albumin with lasix 80 iv q8 (just upped to this yesterday), metolazone 5 a day. hypotension relative -cont midodrine 2.5 bid. vol OL just had another paracentesis; needing these 1-2 times weekly currently; per GI hypokalemia-k is low with the aggressive diuresis. will increase kdur 40meq po tid from bid
[2017-02-16] MEDS: POTASSIUM CHLORIDE 20 MEQ TABCR PO SCH ×2 (14:18→20:33)
[2017-02-16] MEDS: FAMOTIDINE 20 MG TAB PO SCH (20:32)
[2017-02-16 21:25] LABS: HEMATOCRIT 23.3 % (42-52); MEAN CORPUSCULAR HEMOGLOBIN 26.8 pg (25-34); MEAN CORPUSCULAR HGB CONC 32.6 g/dl (32-36); RED BLOOD COUNT 2.84 M/uL (4.7-6.1); WHITE BLOOD COUNT 3.16 K/uL (4.8-10.8)
[2017-02-16 21:28] LABS: MEAN PLATELET VOLUME 8.8 fL (7.4-10.4); PLATELET COUNT 60 K/uL (130-400)
[2017-02-17] MEDS: CEFEPIME IV 1,000 MG in DEXTROSE 5% 100ML IV SCH (01:29)
[2017-02-17] MEDS: ALBUMIN 25% 50 ML with FUROSEMIDE INJ 80 MG IV SCH ×6 (02:05→17:29)
[2017-02-17 05:46] LABS: HEMATOCRIT 25.3 % (42-52); MEAN CELL VOLUME 82.1 fL (80-100); MEAN CORPUSCULAR HEMOGLOBIN 25.3 pg (25-34); MEAN CORPUSCULAR HGB CONC 30.8 g/dl (32-36); RED BLOOD COUNT 3.08 M/uL (4.7-6.1); WHITE BLOOD COUNT 3.04 K/uL (4.8-10.8)
[2017-02-17 05:51] LABS: MEAN PLATELET VOLUME 8.8 fL (7.4-10.4); PLATELET COUNT 64 K/uL (130-400)
[2017-02-17 06:10] LABS: ANISOCYTOSIS PRESENT; BASO % 0.7 %; BASO ABS # 0.02 K/uL (0-0.2); COMPLETE YES; IG% 0.7 %; LYMPH % 9.5 %; LYMPH ABS # 0.29 K/uL (1.2-3.4); MONO % 8.6 %; NEUT % 77.5 %; OVALOCYTES 1+
[2017-02-17 06:30] LABS: BUN/CREATININE RATIO 13.8 (10-20); CALCIUM 8.2 mg/dl (8.5-10.1); CREATININE 2.3 mg/dl (0.60-1.40); POTASSIUM 3.5 mmol/L (3.5-5.1)
[2017-02-17] MEDS: INSULIN ASPART 100 UNITS/ML 3 ML PEN SC SCH ×4 (06:30→21:30)
[2017-02-17] MEDS: MIDODRINE 2.5 MG TAB PO SCH ×2 (06:39→13:18)
[2017-02-17 07:39] VITALS: BP 94/60; PULSE 73; TEMP 36.6; O2SAT 98
--- NOTE | 2017-02-17 07:55 | Progress Note ---
Subjective Date of Service: Feb 17, 2017. Subjective Pt evaluation today including: conversation w/ patient, conversation w/ family , physical exam, lab review, review of studies, review of inpatient medication list Saw/examined the patient in room 415 No problems after his paracentesis yesterday (02/15) Doing well, no abdominal pain; now tolerating his diet Problem List Medical Problems: (1) Acute on chronic renal failure Status: Acute (2) MAGEN (acute kidney injury) Status: Acute (3) Anasarca Status: Acute (4) Anasarca Status: Acute (5) Bilateral leg edema Status: Acute (6) CHF (congestive heart failure) Status: Acute (7) CHF (congestive heart failure) Status: Acute (8) Dehydration Status: Acute (9) Dyspnea on exertion Status: Acute (10) Elevated lactic acid level Status: Acute (11) Elevated troponin Status: Acute (12) Hypotension Status: Acute (13) Pulmonary edema Status: Acute (14) Right heart failure Status: Acute Review of Systems Respiratory: No shortness of breath Cardiac: No chest pain Abdomen: No pain, No nausea, No vomiting, No diarrhea Medications Current Inpatient Medications Medications (Trade) Dose Ordered Sig/Gin Route Start Time Stop Time Status Last Admin Dose Admin Acetaminophen (Tylenol Tab) 325 mg Q6H PRN PO 02/07/17 00:15 03/09/17 00:14 Insulin Aspart (novoLOG ASPART) SLIDING SCALE If C... ACHS SC 02/07/17 06:30 03/09/17 06:29 02/16/17 20:42 2 UNITS Glucose (Glucose 40% Gel) 15-30 GRAMS 15 GRAMS... UD PRN PO 02/07/17 00:15 03/09/17 00:14 Glucose (Glucose Chew Tab) 4-8 Tablets 4 Tabl... UD PRN PO 02/07/17 00:15 03/09/17 00:14 Dextrose (Dextrose 50% 50ML Syringe) 25-50ML OF 50% DW IV FOR... UD PRN IV 02/07/17 00:15 03/09/17 00:14 Glucagon (Glucagon Inj) 1 mg UD PRN SQ 02/07/17 00:15 03/09/17 00:14 Famotidine (Pepcid Tab) 20 mg QPM PO 02/07/17 21:00 03/09/17 20:59 02/16/17 20:32 20 MG Folic Acid (Folvite Tab) 1 mg DAILY PO 02/07/17 08:00 03/09/17 07:59 02/16/17 08:46 1 MG Lactulose (Chronulac Syrup) 10 gm TID PO 02/07/17 08:00 03/09/17 07:59 Future Hold 02/07/17 07:54 10 GM Metoprolol Succinate (Toprol Xl Tab) 12.5 mg DAILY PO 02/07/17 08:00 03/09/17 07:59 02/15/17 08:41 12.5 MG Nitroglycerin (Nitrostat Tab) 0.4 mg PRN UT 02/07/17 00:15 03/09/17 00:14 Pantoprazole Sodium (Protonix Tab) 40 mg DAILY PO 02/07/17 08:00 03/09/17 07:59 02/16/17 08:46 40 MG Insulin Glargine (Lantus Solostar Pen) 5 units DAILY SQ 02/07/17 08:00 03/09/17 07:59 02/16/17 08:50 5 UNITS Tramadol HCl (Ultram Tab) not relieved by tylenol @ Q6H PRN PO 02/07/17 00:15 03/09/17 00:14 Albuterol/ Ipratropium (Duoneb) 3 ml Q2H PRN INH 02/07/17 00:15 03/09/17 00:14 Ondansetron HCl (Zofran Inj) 4 mg Q6H PRN IV 02/07/17 00:15 03/09/17 00:14 Vancomycin HCl (Vancomycin Oral Soln) 125 mg QID PO 02/07/17 17:00 02/21/17 16:59 02/16/17 20:32 125 MG Raspberry (Raspberry Syrup 5ml Cup) 5 ml QID PO 02/07/17 17:00 02/21/17 16:59 02/16/17 20:32 5 ML Lactulose (Chronulac Syrup) 30 gm BID PO 02/08/17 20:00 03/10/17 19:59 02/16/17 20:32 30 GM Metolazone (Zaroxolyn Tab) 5 mg QAM PO 02/12/17 14:30 03/14/17 14:29 02/16/17 08:47 5 MG Midodrine (Proamatine Tab) 2.5 mg [id number] PO 02/14/17 10:15 03/16/17 10:14 02/17/17 06:39 2.5 MG Cefepime HCl (Consult) 1 ea UD PRN N/A 02/14/17 20:45 03/16/17 20:44 Cefepime HCl 1000 mg/Dextrose 111.3 ml @ 222.6 mls/ hr Q24H IV 02/16/17 00:00 02/24/17 00:00 02/17/17 01:29 222.6 MLS/HR Furosemide 80 mg/ Albumin Human 58 ml @ 54 mls/hr Q8H IV 02/15/17 09:00 02/18/17 08:59 02/17/17 02:05 54 MLS/HR Potassium Chloride (Klor-Con Tab) 40 meq TID PO 02/16/17 14:00 03/17/17 08:59 02/16/17 20:33 40 MEQ Objective Vital Signs Date Time Temp Pulse Resp B/P (MAP) Pulse Ox O2 Delivery O2 Flow Rate FiO2 02/17/17 07:39 36.6 73 18 94/60 (71) 98 Room Air 02/17/17 00:00 BiPAP 2.0 02/16/17 23:05 36.5 71 20 94/56 (69) 100 Room Air 02/16/17 20:42 75 18 96/53 (67) 94 Room Air 02/16/17 16:55 74 18 94/63 (73) 94 02/16/17 16:00 96 Room Air 02/16/17 15:10 36.9 59 22 90/52 (65) 96 02/16/17 09:00 95 Room Air 02/16/17 08:45 52 20 88/50 (63) 95 Room Air Physical Exam General Appearance: no apparent distress Respiratory/Chest: no respiratory distress, no accessory muscle use Cardiovascular: regular rate, rhythm Abdomen: non tender, soft, + distended Laboratory Results Last 24 Hours Test 02/16/17 07:53 02/16/17 11:34 02/16/17 17:02 02/16/17 20:01 Bedside Glucose 153 mg/dl 229 mg/dl 257 mg/dl 237 mg/dl Test 02/16/17 21:14 02/17/17 05:25 White Blood Count 3.16 K/uL 3.04 K/uL Red Blood Count 2.84 M/uL 3.08 M/uL Hemoglobin 7.6 g/dL 7.8 g/dL Hematocrit 23.3 % 25.3 % Mean Corpuscular Volume 82.0 fL 82.1 fL Mean Corpuscular Hemoglobin 26.8 pg 25.3 pg Mean Corpuscular Hemoglobin Concent 32.6 g/dl 30.8 g/dl RDW Standard Deviation 52.3 fL 53.4 fL RDW Coefficient of Variation 17.4 % 17.8 % Platelet Count 60 K/uL 64 K/uL Mean Platelet Volume 8.8 fL 8.8 fL Neutrophils (%) (Auto) 77.5 % Lymphocytes (%) (Auto) 9.5 % Monocytes (%) (Auto) 8.6 % Eosinophils (%) (Auto) 3.0 % Basophils (%) (Auto) 0.7 % Neutrophils # (Auto) 2.36 K/uL Lymphocytes # (Auto) 0.29 K/uL Monocytes # (Auto) 0.26 K/uL Eosinophils # (Auto) 0.09 K/uL Basophils # (Auto) 0.02 K/uL Immature Granulocyte % (Auto) 0.7 % Immature Granulocyte # (Auto) 0.02 K/uL Basophilic Stippling 1+ Anisocytosis PRESENT Ovalocytes 1+ Sodium Level 142 mmol/L Potassium Level 3.5 mmol/L Chloride Level 107 mmol/L Carbon Dioxide Level 27 mmol/L Anion Gap 8.0 mmol/L Blood Urea Nitrogen 32 mg/dl Creatinine 2.30 mg/dl Est Creatinine Clear Calc Drug Dose 27.9 ml/min Estimated GFR () 28.5 Estimated GFR (Non- 24.6 BUN/Creatinine Ratio 13.8 Random Glucose 157 mg/dl Calcium Level 8.2 mg/dl Assessment and Plan 87 year old male with history of Paroxysmal A fib, DM, CKD, COPD, Cirrhosis presenting with increasing abdominal girth. 02/16 spoke with patient's daughter about pt's condition he is now requiring at least twice weekly paracentesis due to fluid build-up spoke with them about options including hospice and palliative care - they are agreeable to speak with palliative care otherwise, their plan tentatively is to be discharged to the detention and return twice weekly for paracentesis 02/15 difficult to control his ascitic fluid from building up he has SHANE cirrhosis appreciate GI and nephrology input unfortunately, even after receiving paracentesis and his diuretics, he has built up again plan for paracentesis today (02/15) - removed 5L of fluid diuretics as per nephrology may need paracentesis twice weekly will consider palliative care/hospice - will need to speak with his daughter 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 - usually on lasix 80mg po daily transitioned to lasix IV + albumin BID day 5 diuresing more since Lasix increased 02/09: (+) increased abdominal girth repeat paracentesis ordered 02/10: s/p repeat Paracentesis, drained 3 L urine output decreasing started Albumin 4 doses, continued Lasix + albumin Midodrine PRN for hypotension 02/11: continue monitoring diuresis on Lasix IV + albumin BP stable 02/12: (+) oliguria but crea stable denies dyspnea Lasix + Albumin increased 02/13: Urine output increased continued Lasix + Alubmin q8h , Metolazone -- diuresing better on Lasix 80mg IV + Albumin q8h Midodrine added as patient's BP borderline appreciate Nephro SVC input - monitor Plt 50-60s no signs of bleeding - may need weekly paracentesis as outpatient CKD 4 - crea stable - management per #1 PSEUDOMONAS, PROTEUS UTI - no chills today, afebrile - ff up blood cultures, ascitic fluid cultures - changed Zosyn to Cefepime based on sensitivities patient has C diff, caution re: duration of antibiotics C DIFF COLITIS - On Vanco PO Day 11/28 diarrhea now intermittent, monitor MARGINAL BP - asymptomatic monitor - Decreased home beta noman dose by half Midodrine BID ordered DM2, insulin requiring well controlled as of recent hemoglobin A1c was 6.2 - continue Lantus and ISS Chronic anemia -- s/p 1 unit pRBC for Hg 6 -- Hg 7.1 will only transfuse if Hg < 7 due to liver cirrhosis, possible portal hypertension monitor hx 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 as per records -- will consult Hematology if levels decrease in trend sick sinus syndrome status post pacemaker hx HOCM sp myomectomy COPD as per records Pulmo-status at baseline DVT prophylaxis, SCDs RE thrombocytopenia DNR. Dispo pending eval and management of ascites, volume overload, CKD 4 in progress currently staying at [facility]
[2017-02-17] MEDS: METOPROLOL SUCC 25MG EXT REL TAB PO SCH (08:00)
--- NOTE | 2017-02-17 08:06 | Nephrology Progress Note ---
Nephrology Progress Note Date of Service: Feb 17, 2017. Subjective 87 yo male with cirrhosis, chronic volume overload, hypotension, had paracentesis on monday/monday/monday. abdomen is soft but large. pt though overall feels much better. less gas as he describes it. no lightheadedness. Objective Date Time Temp Pulse Resp B/P (MAP) Pulse Ox O2 Delivery O2 Flow Rate FiO2 02/17/17 07:39 36.6 73 18 94/60 (71) 98 Room Air 02/17/17 00:00 BiPAP 2.0 02/16/17 23:05 36.5 71 20 94/56 (69) 100 Room Air 02/16/17 20:42 75 18 96/53 (67) 94 Room Air 02/16/17 16:55 74 18 94/63 (73) 94 02/16/17 16:00 96 Room Air 02/16/17 15:10 36.9 59 22 90/52 (65) 96 02/16/17 09:00 95 Room Air 02/16/17 08:45 52 20 88/50 (63) 95 Room Air Physical Exam: General-aaox3 Eyes-no scleral icterus ENT-mmm Neck-supple Lungs-clear Heart-3/6 systolic murmur Abdomen-bs+/nontender/soft Extremities-+1 to 2 edema, chronic wounds Neuro-nonfocal Current Inpatient Medications Medications (Trade) Dose Ordered Sig/Gin Route Start Time Stop Time Status Last Admin Dose Admin Acetaminophen (Tylenol Tab) 325 mg Q6H PRN PO 02/07/17 00:15 03/09/17 00:14 Insulin Aspart (novoLOG ASPART) SLIDING SCALE If C... ACHS SC 02/07/17 06:30 03/09/17 06:29 02/16/17 20:42 2 UNITS Glucose (Glucose 40% Gel) 15-30 GRAMS 15 GRAMS... UD PRN PO 02/07/17 00:15 03/09/17 00:14 Glucose (Glucose Chew Tab) 4-8 Tablets 4 Tabl... UD PRN PO 02/07/17 00:15 03/09/17 00:14 Dextrose (Dextrose 50% 50ML Syringe) 25-50ML OF 50% DW IV FOR... UD PRN IV 02/07/17 00:15 03/09/17 00:14 Glucagon (Glucagon Inj) 1 mg UD PRN SQ 02/07/17 00:15 03/09/17 00:14 Famotidine (Pepcid Tab) 20 mg QPM PO 02/07/17 21:00 03/09/17 20:59 02/16/17 20:32 20 MG Folic Acid (Folvite Tab) 1 mg DAILY PO 02/07/17 08:00 03/09/17 07:59 02/16/17 08:46 1 MG Lactulose (Chronulac Syrup) 10 gm TID PO 02/07/17 08:00 03/09/17 07:59 Future Hold 02/07/17 07:54 10 GM Metoprolol Succinate (Toprol Xl Tab) 12.5 mg DAILY PO 02/07/17 08:00 03/09/17 07:59 02/15/17 08:41 12.5 MG Nitroglycerin (Nitrostat Tab) 0.4 mg PRN UT 02/07/17 00:15 03/09/17 00:14 Pantoprazole Sodium (Protonix Tab) 40 mg DAILY PO 02/07/17 08:00 03/09/17 07:59 02/16/17 08:46 40 MG Insulin Glargine (Lantus Solostar Pen) 5 units DAILY SQ 02/07/17 08:00 03/09/17 07:59 02/16/17 08:50 5 UNITS Tramadol HCl (Ultram Tab) not relieved by tylenol @ Q6H PRN PO 02/07/17 00:15 03/09/17 00:14 Albuterol/ Ipratropium (Duoneb) 3 ml Q2H PRN INH 02/07/17 00:15 03/09/17 00:14 Ondansetron HCl (Zofran Inj) 4 mg Q6H PRN IV 02/07/17 00:15 03/09/17 00:14 Vancomycin HCl (Vancomycin Oral Soln) 125 mg QID PO 02/07/17 17:00 02/21/17 16:59 02/16/17 20:32 125 MG Raspberry (Raspberry Syrup 5ml Cup) 5 ml QID PO 02/07/17 17:00 02/21/17 16:59 02/16/17 20:32 5 ML Lactulose (Chronulac Syrup) 30 gm BID PO 02/08/17 20:00 03/10/17 19:59 02/16/17 20:32 30 GM Metolazone (Zaroxolyn Tab) 5 mg QAM PO 02/12/17 14:30 03/14/17 14:29 02/16/17 08:47 5 MG Midodrine (Proamatine Tab) 2.5 mg [id number] PO 02/14/17 10:15 03/16/17 10:14 02/17/17 06:39 2.5 MG Cefepime HCl (Consult) 1 ea UD PRN N/A 02/14/17 20:45 03/16/17 20:44 Cefepime HCl 1000 mg/Dextrose 111.3 ml @ 222.6 mls/ hr Q24H IV 02/16/17 00:00 02/24/17 00:00 02/17/17 01:29 222.6 MLS/HR Furosemide 80 mg/ Albumin Human 58 ml @ 54 mls/hr Q8H IV 02/15/17 09:00 02/18/17 08:59 02/17/17 02:05 54 MLS/HR Potassium Chloride (Klor-Con Tab) 40 meq TID PO 02/16/17 14:00 03/17/17 08:59 02/16/17 20:33 40 MEQ Last 24 Hours Test 02/16/17 11:34 02/16/17 17:02 02/16/17 20:01 02/16/17 21:14 Bedside Glucose 229 mg/dl 257 mg/dl 237 mg/dl White Blood Count 3.16 K/uL Red Blood Count 2.84 M/uL Hemoglobin 7.6 g/dL Hematocrit 23.3 % Mean Corpuscular Volume 82.0 fL Mean Corpuscular Hemoglobin 26.8 pg Mean Corpuscular Hemoglobin Concent 32.6 g/dl RDW Standard Deviation 52.3 fL RDW Coefficient of Variation 17.4 % Platelet Count 60 K/uL Mean Platelet Volume 8.8 fL Test 02/17/17 05:25 White Blood Count 3.04 K/uL Red Blood Count 3.08 M/uL Hemoglobin 7.8 g/dL Hematocrit 25.3 % Mean Corpuscular Volume 82.1 fL Mean Corpuscular Hemoglobin 25.3 pg Mean Corpuscular Hemoglobin Concent 30.8 g/dl Platelet Count 64 K/uL Mean Platelet Volume 8.8 fL Neutrophils (%) (Auto) 77.5 % Lymphocytes (%) (Auto) 9.5 % Monocytes (%) (Auto) 8.6 % Eosinophils (%) (Auto) 3.0 % Basophils (%) (Auto) 0.7 % Neutrophils # (Auto) 2.36 K/uL Lymphocytes # (Auto) 0.29 K/uL Monocytes # (Auto) 0.26 K/uL Eosinophils # (Auto) 0.09 K/uL Basophils # (Auto) 0.02 K/uL RDW Standard Deviation 53.4 fL RDW Coefficient of Variation 17.8 % Immature Granulocyte % (Auto) 0.7 % Immature Granulocyte # (Auto) 0.02 K/uL Basophilic Stippling 1+ Anisocytosis PRESENT Ovalocytes 1+ Sodium Level 142 mmol/L Potassium Level 3.5 mmol/L Chloride Level 107 mmol/L Carbon Dioxide Level 27 mmol/L Anion Gap 8.0 mmol/L Blood Urea Nitrogen 32 mg/dl Creatinine 2.30 mg/dl Est Creatinine Clear Calc Drug Dose 27.9 ml/min Estimated GFR () 28.5 Estimated GFR (Non- 24.6 BUN/Creatinine Ratio 13.8 Random Glucose 157 mg/dl Calcium Level 8.2 mg/dl Assessment & Plan 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 continue current albumin with lasix combination. will discuss further with GI about thoughts on twice a week paracentesis to help with his chronic volume overload state. personally feel, pt feels better and volume status improved with the more frequent paracentesis. on high dose albumin/lasix/metolazone combination and only urinating about 2 liters a day with that regimen. will consider increasing metolazone dose as well. Anemia-would like to check the iron saturation and ferritin to see if he would benefit from iv iron to help raise his blood counts.
[2017-02-17] MEDS: PANTOprazole SOD 40 MG TAB PO SCH (08:19)
[2017-02-17] MEDS: LACTULOSE SYRUP 30 GM/45 ML UDP PO SCH ×2 (08:19→20:00)
[2017-02-17] MEDS: POTASSIUM CHLORIDE 20 MEQ TABCR PO SCH ×3 (08:21→20:27)
[2017-02-17] MEDS: INSULIN GLARGINE SOLOSTAR 100 UNITS/ML 3 ML PEN SQ SCH (08:24)
[2017-02-17] MEDS: RASPBERRY SYRUP 5 ML UDP PO SCH ×4 (08:28→20:26)
[2017-02-17] MEDS: VANCOMYCIN HCL 125 MG/2.5ML SOLN PO SCH ×4 (08:28→20:25)
[2017-02-17] MEDS: METOLAZONE 5 MG TAB PO SCH ×2 (08:32→20:32)
--- NOTE | 2017-02-17 12:21 | Palliative Care Consultation ---
Consultation Date of Consultation: Feb 17, 2017. Requesting Physician: Dr. Saleh Attending Physician: Dr. Saleh Reason for Consultation: Goals of care History of Present Illness This 87 year old male patient with PMH SHANE, abdominal ascites and hepatic encephalopathy, COPD per record, and other's listed below, came to the hospital 11 days ago with c/o abdominal distention and SOB. He has undergone three large volume paracenteses with relief of symptoms. He is followed by nephrology as well who has patient on a current regimen of IV albumin and Lasix as an inpatient for volume management. Given patient's multiple admissions, age and comorbidities, there have been several discussions about palliative and/or hospice. Palliative care consulted this admission to discuss options and provide extra layer of care. I spoke with the patient in room 415. He is awake, alert and oriented x4, sitting up in chair. He has no complaints of pain or SOB, is comfortable at this time. Feels much better since all the fluid was removed from his belly. He states that he has a good quality of life and wishes to continue to have the paracenteses done, even if it is a couple time a week. Patient states he is aware that his disease is incurable and really isn't going to improve from where he is at right now. I then spoke with his daughter/POARupinder on the phone. She stated the same as patient's goals. They are both realistic about the fact that patient's disease will inevitably progress and once he receives no benefit from the paracenteses/coming to hospital, they would be willing to transition to hospice. 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 SSS s/p PPM Bladder cancer per record DM2 CARLITA Chronic renal insufficiency, baseline creatinine of 2.9 Chronic anemia (baseline hemoglobin of 8-9) Social History Smoking Status: Former Smoker History of Alcohol Use: No Drug Use: none Marital Status: Occupation Status: unemployed Review of Systems Constitutional: + weakness ENT: No trouble swallowing Respiratory: No cough, No shortness of breath Cardiac: + edema, No chest pain Abdomen: No pain, No nausea, No vomiting Psychiatric: No depression symptoms, No anxiety Allergies Coded Allergies: Propranolol (Verified Allergy, Unknown, 10/16/16) Codeine (Verified Adverse Reaction, Mild, NOTED "DOESNT TOLERATE WELL" , 10/16/16) Medications Current Inpatient Medications Medications (Trade) Dose Ordered Sig/Gin Route Start Time Stop Time Status Last Admin Dose Admin Acetaminophen (Tylenol Tab) 325 mg Q6H PRN PO 02/07/17 00:15 03/09/17 00:14 Insulin Aspart (novoLOG ASPART) SLIDING SCALE If C... ACHS SC 02/07/17 06:30 03/09/17 06:29 02/16/17 20:42 2 UNITS Glucose (Glucose 40% Gel) 15-30 GRAMS 15 GRAMS... UD PRN PO 02/07/17 00:15 03/09/17 00:14 Glucose (Glucose Chew Tab) 4-8 Tablets 4 Tabl... UD PRN PO 02/07/17 00:15 03/09/17 00:14 Dextrose (Dextrose 50% 50ML Syringe) 25-50ML OF 50% DW IV FOR... UD PRN IV 02/07/17 00:15 03/09/17 00:14 Glucagon (Glucagon Inj) 1 mg UD PRN SQ 02/07/17 00:15 03/09/17 00:14 Famotidine (Pepcid Tab) 20 mg QPM PO 02/07/17 21:00 03/09/17 20:59 02/16/17 20:32 20 MG Folic Acid (Folvite Tab) 1 mg DAILY PO 02/07/17 08:00 03/09/17 07:59 02/17/17 08:22 1 MG Lactulose (Chronulac Syrup) 10 gm TID PO 02/07/17 08:00 03/09/17 07:59 Future Hold 02/07/17 07:54 10 GM Metoprolol Succinate (Toprol Xl Tab) 12.5 mg DAILY PO 02/07/17 08:00 03/09/17 07:59 02/15/17 08:41 12.5 MG Nitroglycerin (Nitrostat Tab) 0.4 mg PRN UT 02/07/17 00:15 03/09/17 00:14 Pantoprazole Sodium (Protonix Tab) 40 mg DAILY PO 02/07/17 08:00 03/09/17 07:59 02/17/17 08:19 40 MG Insulin Glargine (Lantus Solostar Pen) 5 units DAILY SQ 02/07/17 08:00 03/09/17 07:59 02/17/17 08:24 5 UNITS Tramadol HCl (Ultram Tab) not relieved by tylenol @ Q6H PRN PO 02/07/17 00:15 03/09/17 00:14 Albuterol/ Ipratropium (Duoneb) 3 ml Q2H PRN INH 02/07/17 00:15 03/09/17 00:14 Ondansetron HCl (Zofran Inj) 4 mg Q6H PRN IV 02/07/17 00:15 03/09/17 00:14 Vancomycin HCl (Vancomycin Oral Soln) 125 mg QID PO 02/07/17 17:00 02/21/17 16:59 02/17/17 08:28 125 MG Raspberry (Raspberry Syrup 5ml Cup) 5 ml QID PO 02/07/17 17:00 02/21/17 16:59 02/17/17 08:28 5 ML Lactulose (Chronulac Syrup) 30 gm BID PO 02/08/17 20:00 03/10/17 19:59 02/17/17 08:19 30 GM Midodrine (Proamatine Tab) 2.5 mg [id number] PO 02/14/17 10:15 03/16/17 10:14 02/17/17 06:39 2.5 MG Cefepime HCl (Consult) 1 ea UD PRN N/A 02/14/17 20:45 03/16/17 20:44 Cefepime HCl 1000 mg/Dextrose 111.3 ml @ 222.6 mls/ hr Q24H IV 02/16/17 00:00 02/24/17 00:00 02/17/17 01:29 222.6 MLS/HR Furosemide 80 mg/ Albumin Human 58 ml @ 54 mls/hr Q8H IV 02/15/17 09:00 02/18/17 08:59 02/17/17 08:31 54 MLS/HR Potassium Chloride (Klor-Con Tab) 40 meq TID PO 02/16/17 14:00 03/17/17 08:59 02/17/17 08:21 40 MEQ Metolazone (Zaroxolyn Tab) 5 mg BID PO 02/17/17 09:00 03/14/17 08:59 02/17/17 08:32 5 MG Physical Exam Date Time Temp Pulse Resp B/P (MAP) Pulse Ox O2 Delivery O2 Flow Rate FiO2 02/17/17 08:00 Room Air 02/17/17 07:39 36.6 73 18 94/60 (71) 98 Room Air 02/17/17 00:00 BiPAP 2.0 02/16/17 23:05 36.5 71 20 94/56 (69) 100 Room Air 02/16/17 20:42 75 18 96/53 (67) 94 Room Air 02/16/17 16:55 74 18 94/63 (73) 94 02/16/17 16:00 96 Room Air 02/16/17 15:10 36.9 59 22 90/52 (65) 96 General Appearance: no apparent distress ENT: + pertinent finding (slightly hard of hearing) Neck: supple, no JVD Respiratory: lungs clear, no respiratory distress, no accessory muscle use Cardiovascular: regular rate, rhythm, + pertinent finding (+3 pitting edema from mid roblero/calf down to feet) Abdomen: normal bowel sounds, non tender, soft, + distended Neurologic/Psychiatric: alert, normal mood/affect, oriented x 3 Laboratory Results Last 24 Hours Test 02/16/17 17:02 02/16/17 20:01 02/16/17 21:14 02/17/17 05:25 Bedside Glucose 257 mg/dl 237 mg/dl White Blood Count 3.16 K/uL 3.04 K/uL Red Blood Count 2.84 M/uL 3.08 M/uL Hemoglobin 7.6 g/dL 7.8 g/dL Hematocrit 23.3 % 25.3 % Mean Corpuscular Volume 82.0 fL 82.1 fL Mean Corpuscular Hemoglobin 26.8 pg 25.3 pg Mean Corpuscular Hemoglobin Concent 32.6 g/dl 30.8 g/dl RDW Standard Deviation 52.3 fL 53.4 fL RDW Coefficient of Variation 17.4 % 17.8 % Platelet Count 60 K/uL 64 K/uL Mean Platelet Volume 8.8 fL 8.8 fL Neutrophils (%) (Auto) 77.5 % Lymphocytes (%) (Auto) 9.5 % Monocytes (%) (Auto) 8.6 % Eosinophils (%) (Auto) 3.0 % Basophils (%) (Auto) 0.7 % Neutrophils # (Auto) 2.36 K/uL Lymphocytes # (Auto) 0.29 K/uL Monocytes # (Auto) 0.26 K/uL Eosinophils # (Auto) 0.09 K/uL Basophils # (Auto) 0.02 K/uL Immature Granulocyte % (Auto) 0.7 % Immature Granulocyte # (Auto) 0.02 K/uL Basophilic Stippling 1+ Anisocytosis PRESENT Ovalocytes 1+ Sodium Level 142 mmol/L Potassium Level 3.5 mmol/L Chloride Level 107 mmol/L Carbon Dioxide Level 27 mmol/L Anion Gap 8.0 mmol/L Blood Urea Nitrogen 32 mg/dl Creatinine 2.30 mg/dl Est Creatinine Clear Calc Drug Dose 27.9 ml/min Estimated GFR () 28.5 Estimated GFR (Non- 24.6 BUN/Creatinine Ratio 13.8 Random Glucose 157 mg/dl Calcium Level 8.2 mg/dl Test 02/17/17 07:50 02/17/17 11:46 Bedside Glucose 144 mg/dl 262 mg/dl Assessment & Plan Palliative Performance Scale: 40 % Problem list: SOB Abdominal distention 2/2 ascites SHANE with cirrhosis Abdominal ascites s/p paracenteses x3, large volume CKD stage IV BL lower extremity edema UTI C. difficile Goals of care (Z51.5) Palliative care recs: discussed with patient and daughter/POA, Rupinder Mensah. -Patient was already DNR. I did not discuss this with him. -Patient's goal is to "keep going until I can't any more." He would like to continue paracenteses as needed and is willing to do them twice a week if that' s what is decided. -Still has good quality of life and is able to somewhat take care of himself. -Spoke also with patient's daughter. They are both realistic about the fact that patient's disease will inevitably progress and once he receives no benefit from the paracenteses/coming to hospital, they would be willing to transition to hospice. -Rupinder would like GI and hospitalist's opinion on whether or not it would be beneficial for patient to transfer to [facility] for any procedures. She is aware he would not be able to have a liver transplant, but stated that if there were any other procedures that may help patient, she would want it to be done. -Patient remains on IV albumin and lasix. He would also need set up with a physician and [facility] if it is decided that he would need outpatient paracenteses. -He lives at [facility] and [facility] He plans to return there with same services. -No transition to hospice at this time. Continue current medical management. -I would be more than happy to follow this patient on any future admissions for continuity of care. Thank you kindly for this consult. Please contact me with any further palliative care needs.
[2017-02-17 15:43] VITALS: BP 81/56; PULSE 82; TEMP 36.8; O2SAT 99
--- NOTE | 2017-02-17 16:43 | Progress Note ---
Subjective Date of Service: Feb 17, 2017. Subjective Pt evaluation today including: conversation w/ patient, physical exam, lab review, review of studies, review of inpatient medication list Saw/examined the patient in room 415 He feels fine, no abdominal pain +small amount of blood in the [place] Denies fevers/chills/nausea/vomiting Problem List Medical Problems: (1) Acute on chronic renal failure Status: Acute (2) MAGEN (acute kidney injury) Status: Acute (3) Anasarca Status: Acute (4) Anasarca Status: Acute (5) Bilateral leg edema Status: Acute (6) CHF (congestive heart failure) Status: Acute (7) CHF (congestive heart failure) Status: Acute (8) Dehydration Status: Acute (9) Dyspnea on exertion Status: Acute (10) Elevated lactic acid level Status: Acute (11) Elevated troponin Status: Acute (12) Hypotension Status: Acute (13) Pulmonary edema Status: Acute (14) Right heart failure Status: Acute Review of Systems Constitutional: No fever, No chills Respiratory: No shortness of breath Cardiac: No chest pain Abdomen: No pain, No nausea, No vomiting, No diarrhea Medications Current Inpatient Medications Medications (Trade) Dose Ordered Sig/Gin Route Start Time Stop Time Status Last Admin Dose Admin Acetaminophen (Tylenol Tab) 325 mg Q6H PRN PO 02/07/17 00:15 03/09/17 00:14 Insulin Aspart (novoLOG ASPART) SLIDING SCALE If C... ACHS SC 02/07/17 06:30 03/09/17 06:29 02/17/17 13:16 2 UNITS Glucose (Glucose 40% Gel) 15-30 GRAMS 15 GRAMS... UD PRN PO 02/07/17 00:15 03/09/17 00:14 Glucose (Glucose Chew Tab) 4-8 Tablets 4 Tabl... UD PRN PO 02/07/17 00:15 03/09/17 00:14 Dextrose (Dextrose 50% 50ML Syringe) 25-50ML OF 50% DW IV FOR... UD PRN IV 02/07/17 00:15 03/09/17 00:14 Glucagon (Glucagon Inj) 1 mg UD PRN SQ 02/07/17 00:15 03/09/17 00:14 Famotidine (Pepcid Tab) 20 mg QPM PO 02/07/17 21:00 03/09/17 20:59 02/16/17 20:32 20 MG Folic Acid (Folvite Tab) 1 mg DAILY PO 02/07/17 08:00 03/09/17 07:59 02/17/17 08:22 1 MG Lactulose (Chronulac Syrup) 10 gm TID PO 02/07/17 08:00 03/09/17 07:59 Future Hold 02/07/17 07:54 10 GM Metoprolol Succinate (Toprol Xl Tab) 12.5 mg DAILY PO 02/07/17 08:00 03/09/17 07:59 02/15/17 08:41 12.5 MG Nitroglycerin (Nitrostat Tab) 0.4 mg PRN UT 02/07/17 00:15 03/09/17 00:14 Pantoprazole Sodium (Protonix Tab) 40 mg DAILY PO 02/07/17 08:00 03/09/17 07:59 02/17/17 08:19 40 MG Insulin Glargine (Lantus Solostar Pen) 5 units DAILY SQ 02/07/17 08:00 03/09/17 07:59 02/17/17 08:24 5 UNITS Tramadol HCl (Ultram Tab) not relieved by tylenol @ Q6H PRN PO 02/07/17 00:15 03/09/17 00:14 Albuterol/ Ipratropium (Duoneb) 3 ml Q2H PRN INH 02/07/17 00:15 03/09/17 00:14 Ondansetron HCl (Zofran Inj) 4 mg Q6H PRN IV 02/07/17 00:15 03/09/17 00:14 Vancomycin HCl (Vancomycin Oral Soln) 125 mg QID PO 02/07/17 17:00 02/21/17 16:59 02/17/17 13:13 125 MG Raspberry (Raspberry Syrup 5ml Cup) 5 ml QID PO 02/07/17 17:00 02/21/17 16:59 02/17/17 13:13 5 ML Lactulose (Chronulac Syrup) 30 gm BID PO 02/08/17 20:00 03/10/17 19:59 02/17/17 08:19 30 GM Midodrine (Proamatine Tab) 2.5 mg [id number] PO 02/14/17 10:15 03/16/17 10:14 02/17/17 13:18 2.5 MG Cefepime HCl (Consult) 1 ea UD PRN N/A 02/14/17 20:45 03/16/17 20:44 Cefepime HCl 1000 mg/Dextrose 111.3 ml @ 222.6 mls/ hr Q24H IV 02/16/17 00:00 02/24/17 00:00 02/17/17 01:29 222.6 MLS/HR Furosemide 80 mg/ Albumin Human 58 ml @ 54 mls/hr Q8H IV 02/15/17 09:00 02/18/17 08:59 02/17/17 08:31 54 MLS/HR Potassium Chloride (Klor-Con Tab) 40 meq TID PO 02/16/17 14:00 03/17/17 08:59 02/17/17 13:18 40 MEQ Metolazone (Zaroxolyn Tab) 5 mg BID PO 02/17/17 09:00 03/14/17 08:59 02/17/17 08:32 5 MG Objective Vital Signs Date Time Temp Pulse Resp B/P (MAP) Pulse Ox O2 Delivery O2 Flow Rate FiO2 02/17/17 15:43 36.8 82 16 81/56 (64) 99 Room Air 02/17/17 08:00 Room Air 02/17/17 07:39 36.6 73 18 94/60 (71) 98 Room Air 02/17/17 00:00 BiPAP 2.0 02/16/17 23:05 36.5 71 20 94/56 (69) 100 Room Air 02/16/17 20:42 75 18 96/53 (67) 94 Room Air 02/16/17 16:55 74 18 94/63 (73) 94 Physical Exam General Appearance: no apparent distress Respiratory/Chest: no respiratory distress, no accessory muscle use Cardiovascular: regular rate, rhythm Abdomen: normal bowel sounds, soft, + distended, + pertinent finding (blood in Dom[place]) Extremities: + pertinent finding Neurologic/Psychiatric: no motor/sensory deficits, alert, normal mood/affect Laboratory Results Last 24 Hours Test 02/16/17 17:02 02/16/17 20:01 02/16/17 21:14 02/17/17 05:25 Bedside Glucose 257 mg/dl 237 mg/dl White Blood Count 3.16 K/uL 3.04 K/uL Red Blood Count 2.84 M/uL 3.08 M/uL Hemoglobin 7.6 g/dL 7.8 g/dL Hematocrit 23.3 % 25.3 % Mean Corpuscular Volume 82.0 fL 82.1 fL Mean Corpuscular Hemoglobin 26.8 pg 25.3 pg Mean Corpuscular Hemoglobin Concent 32.6 g/dl 30.8 g/dl RDW Standard Deviation 52.3 fL 53.4 fL RDW Coefficient of Variation 17.4 % 17.8 % Platelet Count 60 K/uL 64 K/uL Mean Platelet Volume 8.8 fL 8.8 fL Neutrophils (%) (Auto) 77.5 % Lymphocytes (%) (Auto) 9.5 % Monocytes (%) (Auto) 8.6 % Eosinophils (%) (Auto) 3.0 % Basophils (%) (Auto) 0.7 % Neutrophils # (Auto) 2.36 K/uL Lymphocytes # (Auto) 0.29 K/uL Monocytes # (Auto) 0.26 K/uL Eosinophils # (Auto) 0.09 K/uL Basophils # (Auto) 0.02 K/uL Immature Granulocyte % (Auto) 0.7 % Immature Granulocyte # (Auto) 0.02 K/uL Basophilic Stippling 1+ Anisocytosis PRESENT Ovalocytes 1+ Sodium Level 142 mmol/L Potassium Level 3.5 mmol/L Chloride Level 107 mmol/L Carbon Dioxide Level 27 mmol/L Anion Gap 8.0 mmol/L Blood Urea Nitrogen 32 mg/dl Creatinine 2.30 mg/dl Est Creatinine Clear Calc Drug Dose 27.9 ml/min Estimated GFR () 28.5 Estimated GFR (Non- 24.6 BUN/Creatinine Ratio 13.8 Random Glucose 157 mg/dl Calcium Level 8.2 mg/dl Test 02/17/17 07:50 02/17/17 11:46 Bedside Glucose 144 mg/dl 262 mg/dl Assessment and Plan 87 year old male with history of Paroxysmal A fib, DM, CKD, COPD, Cirrhosis presenting with increasing abdominal girth. 02/17 appreciate nephrology input Metolazone dose increased continue Albumin + Lasix patient's abdomen slightly distended, but soft, non-tender appreciate palliative care input - currently, patient would like paracentesis multiple times per week, rather than hospice. He is DNR. 02/16 spoke with patient's daughter about pt's condition he is now requiring at least twice weekly paracentesis due to fluid build-up spoke with them about options including hospice and palliative care - they are agreeable to speak with palliative care otherwise, their plan tentatively is to be discharged to the [facility] and return twice weekly for paracentesis 02/15 difficult to control his ascitic fluid from building up he has SHANE cirrhosis appreciate GI and nephrology input unfortunately, even after receiving paracentesis and his diuretics, he has built up again plan for paracentesis today (02/15) - removed 5L of fluid diuretics as per nephrology may need paracentesis twice weekly will consider palliative care/hospice - will need to speak with his daughter 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 - usually on lasix 80mg po daily transitioned to lasix IV + albumin BID day 5 diuresing more since Lasix increased 02/09: (+) increased abdominal girth repeat paracentesis ordered 02/10: s/p repeat Paracentesis, drained 3 L urine output decreasing started Albumin 4 doses, continued Lasix + albumin Midodrine PRN for hypotension 02/11: continue monitoring diuresis on Lasix IV + albumin BP stable 02/12: (+) oliguria but crea stable denies dyspnea Lasix + Albumin increased 02/13: Urine output increased continued Lasix + Alubmin q8h , Metolazone -- diuresing better on Lasix 80mg IV + Albumin q8h Midodrine added as patient's BP borderline appreciate Nephro SVC input - monitor Plt 50-60s no signs of bleeding - may need weekly paracentesis as outpatient CKD 4 - crea stable - management per #1 PSEUDOMONAS, PROTEUS UTI - no chills today, afebrile - ff up blood cultures, ascitic fluid cultures - changed Zosyn to Cefepime based on sensitivities patient has C diff, caution re: duration of antibiotics C DIFF COLITIS - On Vanco PO Day 11/28 diarrhea now intermittent, monitor MARGINAL BP - asymptomatic monitor - Decreased home beta noman dose by half Midodrine BID ordered DM2, insulin requiring well controlled as of recent hemoglobin A1c was 6.2 - continue Lantus and ISS Chronic anemia -- s/p 1 unit pRBC for Hg 6 -- Hg 7.1 will only transfuse if Hg < 7 due to liver cirrhosis, possible portal hypertension monitor hx 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 as per records -- will consult Hematology if levels decrease in trend sick sinus syndrome status post pacemaker hx HOCM sp myomectomy COPD as per records Pulmo-status at baseline DVT prophylaxis, SCDs RE thrombocytopenia DNR. Dispo pending eval and management of ascites, volume overload, CKD 4 in progress currently staying at [facility]
[2017-02-17] MEDS ORDERED: EPOETIN ALFA 4000 UNITS/ML VIAL SQ ONE (19:00)
[2017-02-17] MEDS: FAMOTIDINE 20 MG TAB PO SCH (20:28)
[2017-02-17 20:33] VITALS: BP 105/66; PULSE 82
[2017-02-18] VITALS (8 sets, daily range): BP systolic 85–145; BP diastolic 49–67; PULSE 72–106; TEMP 36.6–37.1; O2SAT 96
[2017-02-18] MEDS: CEFEPIME IV 1,000 MG in DEXTROSE 5% 100ML IV SCH ×2 (00:50→23:53)
[2017-02-18] MEDS: ALBUMIN 25% 50 ML with FUROSEMIDE INJ 80 MG IV SCH ×4 (02:11→18:19)
[2017-02-18] MEDS: MIDODRINE 2.5 MG TAB PO SCH ×2 (06:45→12:06)
[2017-02-18 07:30] LABS: HEMATOCRIT 24.8 % (42-52); MEAN CELL VOLUME 82.4 fL (80-100); MEAN CORPUSCULAR HEMOGLOBIN 25.9 pg (25-34); MEAN CORPUSCULAR HGB CONC 31.5 g/dl (32-36); RED BLOOD COUNT 3.01 M/uL (4.7-6.1); WHITE BLOOD COUNT 3.35 K/uL (4.8-10.8)
[2017-02-18 07:46] LABS: MEAN PLATELET VOLUME 9.3 fL (7.4-10.4); PLATELET COUNT 65 K/uL (130-400)
[2017-02-18 07:47] LABS: BASO % 0.6 %; BASO ABS # 0.02 K/uL (0-0.2); COMPLETE YES; EOS % 2.4 %; HYPOCHROMIA PRESENT; LYMPH % 9.3 %; LYMPH ABS # 0.31 K/uL (1.2-3.4); MONO % 9.6 %; NEUT % 78.1 %
[2017-02-18 07:49] LABS: OVALOCYTES 1+
[2017-02-18 08:20] LABS: BUN/CREATININE RATIO 12.2 (10-20); CALCIUM 8.6 mg/dl (8.5-10.1); CREATININE 2.4 mg/dl (0.60-1.40); FERRITIN 63.8 ng/ml (8.0-388.0); POTASSIUM 4.2 mmol/L (3.5-5.1)
[2017-02-18] MEDS ORDERED: ALBUMIN 25% 50 ML with FUROSEMIDE INJ 80 MG IV ONE ×2 (09:00)
[2017-02-18] MEDS: PANTOprazole SOD 40 MG TAB PO SCH (09:17)
[2017-02-18] MEDS: LACTULOSE SYRUP 30 GM/45 ML UDP PO SCH ×2 (09:17→20:48)
[2017-02-18] MEDS: METOPROLOL SUCC 25MG EXT REL TAB PO SCH (09:18)
[2017-02-18] MEDS: RASPBERRY SYRUP 5 ML UDP PO SCH ×4 (09:19→20:16)
[2017-02-18] MEDS: VANCOMYCIN HCL 125 MG/2.5ML SOLN PO SCH ×4 (09:19→20:16)
[2017-02-18] MEDS: POTASSIUM CHLORIDE 20 MEQ TABCR PO SCH ×3 (09:19→20:17)
[2017-02-18] MEDS: METOLAZONE 5 MG TAB PO SCH ×2 (09:19→20:18)
[2017-02-18] MEDS: INSULIN ASPART 100 UNITS/ML 3 ML PEN SC SCH ×4 (09:20→20:53)
[2017-02-18] MEDS: INSULIN GLARGINE SOLOSTAR 100 UNITS/ML 3 ML PEN SQ SCH (09:23)
--- NOTE | 2017-02-18 17:27 | Progress Note ---
Subjective Date of Service: Feb 18, 2017. Subjective Pt evaluation today including: conversation w/ patient, physical exam, lab review, review of studies, review of inpatient medication list Saw/examined the patient in room 415 He's doing okay, no abdominal pain; has some diarrhea, no bleeding in the [place] Problem List Medical Problems: (1) Acute on chronic renal failure Status: Acute (2) MAGEN (acute kidney injury) Status: Acute (3) Anasarca Status: Acute (4) Anasarca Status: Acute (5) Bilateral leg edema Status: Acute (6) CHF (congestive heart failure) Status: Acute (7) CHF (congestive heart failure) Status: Acute (8) Dehydration Status: Acute (9) Dyspnea on exertion Status: Acute (10) Elevated lactic acid level Status: Acute (11) Elevated troponin Status: Acute (12) Hypotension Status: Acute (13) Pulmonary edema Status: Acute (14) Right heart failure Status: Acute Review of Systems Abdomen: + diarrhea, No pain, No nausea, No vomiting Medications Current Inpatient Medications Medications (Trade) Dose Ordered Sig/Gin Route Start Time Stop Time Status Last Admin Dose Admin Acetaminophen (Tylenol Tab) 325 mg Q6H PRN PO 02/07/17 00:15 03/09/17 00:14 Insulin Aspart (novoLOG ASPART) SLIDING SCALE If C... ACHS SC 02/07/17 06:30 03/09/17 06:29 02/17/17 13:16 2 UNITS Glucose (Glucose 40% Gel) 15-30 GRAMS 15 GRAMS... UD PRN PO 02/07/17 00:15 03/09/17 00:14 Glucose (Glucose Chew Tab) 4-8 Tablets 4 Tabl... UD PRN PO 02/07/17 00:15 03/09/17 00:14 Dextrose (Dextrose 50% 50ML Syringe) 25-50ML OF 50% DW IV FOR... UD PRN IV 02/07/17 00:15 03/09/17 00:14 Glucagon (Glucagon Inj) 1 mg UD PRN SQ 02/07/17 00:15 03/09/17 00:14 Famotidine (Pepcid Tab) 20 mg QPM PO 02/07/17 21:00 03/09/17 20:59 02/17/17 20:28 20 MG Folic Acid (Folvite Tab) 1 mg DAILY PO 02/07/17 08:00 03/09/17 07:59 02/18/17 09:20 1 MG Lactulose (Chronulac Syrup) 10 gm TID PO 02/07/17 08:00 03/09/17 07:59 Future Hold 02/07/17 07:54 10 GM Metoprolol Succinate (Toprol Xl Tab) 12.5 mg DAILY PO 02/07/17 08:00 03/09/17 07:59 02/15/17 08:41 12.5 MG Nitroglycerin (Nitrostat Tab) 0.4 mg PRN UT 02/07/17 00:15 03/09/17 00:14 Pantoprazole Sodium (Protonix Tab) 40 mg DAILY PO 02/07/17 08:00 03/09/17 07:59 02/18/17 09:17 40 MG Insulin Glargine (Lantus Solostar Pen) 5 units DAILY SQ 02/07/17 08:00 03/09/17 07:59 02/18/17 09:23 5 UNITS Tramadol HCl (Ultram Tab) not relieved by tylenol @ Q6H PRN PO 02/07/17 00:15 03/09/17 00:14 Albuterol/ Ipratropium (Duoneb) 3 ml Q2H PRN INH 02/07/17 00:15 03/09/17 00:14 Ondansetron HCl (Zofran Inj) 4 mg Q6H PRN IV 02/07/17 00:15 03/09/17 00:14 Vancomycin HCl (Vancomycin Oral Soln) 125 mg QID PO 02/07/17 17:00 02/21/17 16:59 02/18/17 12:06 125 MG Raspberry (Raspberry Syrup 5ml Cup) 5 ml QID PO 02/07/17 17:00 02/21/17 16:59 02/18/17 12:06 5 ML Lactulose (Chronulac Syrup) 30 gm BID PO 02/08/17 20:00 03/10/17 19:59 02/18/17 09:17 30 GM Midodrine (Proamatine Tab) 2.5 mg [id number] PO 02/14/17 10:15 03/16/17 10:14 02/18/17 12:06 2.5 MG Cefepime HCl (Consult) 1 ea UD PRN N/A 02/14/17 20:45 03/16/17 20:44 Cefepime HCl 1000 mg/Dextrose 111.3 ml @ 222.6 mls/ hr Q24H IV 02/16/17 00:00 02/24/17 00:00 02/18/17 00:50 222.6 MLS/HR Furosemide 80 mg/ Albumin Human 58 ml @ 54 mls/hr Q8H IV 02/15/17 09:00 02/21/17 23:59 Future hold 02/18/17 02:11 54 MLS/HR Potassium Chloride (Klor-Con Tab) 40 meq TID PO 02/16/17 14:00 03/17/17 08:59 02/18/17 12:06 40 MEQ Metolazone (Zaroxolyn Tab) 5 mg BID PO 02/17/17 09:00 03/14/17 08:59 02/17/17 20:32 5 MG Objective Vital Signs Date Time Temp Pulse Resp B/P (MAP) Pulse Ox O2 Delivery O2 Flow Rate FiO2 02/18/17 15:30 Room Air 02/18/17 10:46 36.7 02/18/17 10:10 Room Air 02/18/17 09:29 91 90/62 (71) 02/18/17 06:47 75 93/58 (70) 02/18/17 03:21 36.6 72 18 85/49 (61) 02/18/17 02:03 36.7 83 18 89/55 (66) 02/18/17 00:25 37.1 84 20 90/56 (67) 96 Room Air 02/18/17 00:00 BiPAP 02/17/17 20:33 82 105/66 (79) 02/17/17 20:00 Room Air Physical Exam General Appearance: no apparent distress Respiratory/Chest: lungs clear, normal breath sounds, no respiratory distress, no accessory muscle use Cardiovascular: regular rate, rhythm, no murmur Abdomen: non tender, soft, + distended (mild distention) Extremities: + swelling (+2 pitting edema b/l LE), + pertinent finding Laboratory Results Last 24 Hours Test 02/17/17 20:38 02/18/17 06:47 02/18/17 07:37 02/18/17 11:53 Bedside Glucose 213 mg/dl 146 mg/dl 199 mg/dl White Blood Count 3.35 K/uL Red Blood Count 3.01 M/uL Hemoglobin 7.8 g/dL Hematocrit 24.8 % Mean Corpuscular Volume 82.4 fL Mean Corpuscular Hemoglobin 25.9 pg Mean Corpuscular Hemoglobin Concent 31.5 g/dl Platelet Count 65 K/uL Mean Platelet Volume 9.3 fL Neutrophils (%) (Auto) 78.1 % Lymphocytes (%) (Auto) 9.3 % Monocytes (%) (Auto) 9.6 % Eosinophils (%) (Auto) 2.4 % Basophils (%) (Auto) 0.6 % Neutrophils # (Auto) 2.62 K/uL Lymphocytes # (Auto) 0.31 K/uL Monocytes # (Auto) 0.32 K/uL Eosinophils # (Auto) 0.08 K/uL Basophils # (Auto) 0.02 K/uL RDW Standard Deviation 53.0 fL RDW Coefficient of Variation 17.7 % Immature Granulocyte % (Auto) 0.0 % Immature Granulocyte # (Auto) 0.00 K/uL Hypochromasia PRESENT Basophilic Stippling 1+ Ovalocytes 1+ Sodium Level 141 mmol/L Potassium Level 4.2 mmol/L Chloride Level 106 mmol/L Carbon Dioxide Level 28 mmol/L Anion Gap 7.0 mmol/L Blood Urea Nitrogen 29 mg/dl Creatinine 2.40 mg/dl Est Creatinine Clear Calc Drug Dose 27.1 ml/min Estimated GFR () 27.1 Estimated GFR (Non- 23.4 BUN/Creatinine Ratio 12.2 Random Glucose 147 mg/dl Calcium Level 8.6 mg/dl Iron Level 24 mcg/dl Total Iron Binding Capacity 112 mcg/dl Ferritin 63.8 ng/ml Test 02/18/17 16:58 Bedside Glucose 184 mg/dl Assessment and Plan 87 year old male with history of Paroxysmal A fib, DM, CKD, COPD, Cirrhosis presenting with increasing abdominal girth. 02/18 continue current medications today was given EPO yesterday, no more hematuria noted today will need to speak with nephrology regarding discharge medications will need intermittent paracentesis as outpatient 02/17 appreciate nephrology input Metolazone dose increased continue Albumin + Lasix patient's abdomen slightly distended, but soft, non-tender appreciate palliative care input - currently, patient would like paracentesis multiple times per week, rather than hospice. He is DNR. 02/16 spoke with patient's daughter about pt's condition he is now requiring at least twice weekly paracentesis due to fluid build-up spoke with them about options including hospice and palliative care - they are agreeable to speak with palliative care otherwise, their [facility] and return twice weekly for paracentesis 02/15 difficult to control his ascitic fluid from building up he has SHANE cirrhosis appreciate GI and nephrology input unfortunately, even after receiving paracentesis and his diuretics, he has built up again plan for paracentesis today (02/15) - removed 5L of fluid diuretics as per nephrology may need paracentesis twice weekly will consider palliative care/hospice - will need to speak with his daughter 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 - usually on lasix 80mg po daily transitioned to lasix IV + albumin BID day 5 diuresing more since Lasix increased 02/09: (+) increased abdominal girth repeat paracentesis ordered 02/10: s/p repeat Paracentesis, drained 3 L urine output decreasing started Albumin 4 doses, continued Lasix + albumin Midodrine PRN for hypotension 02/11: continue monitoring diuresis on Lasix IV + albumin BP stable 02/12: (+) oliguria but crea stable denies dyspnea Lasix + Albumin increased 02/13: Urine output increased continued Lasix + Alubmin q8h , Metolazone -- diuresing better on Lasix 80mg IV + Albumin q8h Midodrine added as patient's BP borderline appreciate Nephro SVC input - monitor Plt 50-60s no signs of bleeding - may need weekly paracentesis as outpatient CKD 4 - crea stable - management per #1 PSEUDOMONAS, PROTEUS UTI - no chills today, afebrile - ff up blood cultures, ascitic fluid cultures - changed Zosyn to Cefepime based on sensitivities patient has C diff, caution re: duration of antibiotics C DIFF COLITIS - On Vanco PO Day 11/28 diarrhea now intermittent, monitor MARGINAL BP - asymptomatic monitor - Decreased home beta noman dose by half Midodrine BID ordered DM2, insulin requiring well controlled as of recent hemoglobin A1c was 6.2 - continue Lantus and ISS Chronic anemia -- s/p 1 unit pRBC for Hg 6 -- Hg 7.1 will only transfuse if Hg < 7 due to liver cirrhosis, possible portal hypertension monitor hx 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 as per records -- will consult Hematology if levels decrease in trend sick sinus syndrome status post pacemaker hx HOCM sp myomectomy COPD as per records Pulmo-status at baseline DVT prophylaxis, SCDs RE thrombocytopenia DNR. Dispo pending eval and management of ascites, volume overload, CKD 4 in progress currently staying at [facility]
[2017-02-18] MEDS: FAMOTIDINE 20 MG TAB PO SCH (20:18)
[2017-02-19 00:48] VITALS: BP 95/59; PULSE 83; TEMP 36.8; O2SAT 98
[2017-02-19] MEDS: ALBUMIN 25% 50 ML with FUROSEMIDE INJ 80 MG IV SCH ×6 (01:09→16:38)
[2017-02-19 02:32] VITALS: BP 93/64; PULSE 73; TEMP 36.5
[2017-02-19] MEDS: INSULIN ASPART 100 UNITS/ML 3 ML PEN SC SCH ×4 (06:30→22:26)
[2017-02-19 06:36] LABS: HEMATOCRIT 24.6 % (42-52); MEAN CELL VOLUME 82.6 fL (80-100); MEAN CORPUSCULAR HEMOGLOBIN 26.2 pg (25-34); MEAN CORPUSCULAR HGB CONC 31.7 g/dl (32-36); RED BLOOD COUNT 2.98 M/uL (4.7-6.1); WHITE BLOOD COUNT 2.87 K/uL (4.8-10.8)
[2017-02-19] MEDS: MIDODRINE 2.5 MG TAB PO SCH ×2 (06:36→13:36)
[2017-02-19 06:39] LABS: MEAN PLATELET VOLUME 9.2 fL (7.4-10.4); PLATELET COUNT 67 K/uL (130-400)
[2017-02-19 07:03] LABS: CALCIUM 9.2 mg/dl (8.5-10.1); CREATININE 2.5 mg/dl (0.60-1.40); POTASSIUM 4.4 mmol/L (3.5-5.1)
[2017-02-19 07:37] LABS: BASO ABS # 0.03 K/uL (0-0.2); COMPLETE YES; EOS % 2.8 %; IG% 0.3 %; LYMPH % 11.1 %; LYMPH ABS # 0.32 K/uL (1.2-3.4); NEUT % 76.8 %; OVALOCYTES 1+
[2017-02-19] MEDS: METOPROLOL SUCC 25MG EXT REL TAB PO SCH (08:00)
[2017-02-19] MEDS: VANCOMYCIN HCL 125 MG/2.5ML SOLN PO SCH ×4 (08:07→20:09)
[2017-02-19] MEDS: POTASSIUM CHLORIDE 20 MEQ TABCR PO SCH ×3 (08:08→20:10)
[2017-02-19] MEDS: RASPBERRY SYRUP 5 ML UDP PO SCH ×4 (08:08→20:09)
[2017-02-19] MEDS: LACTULOSE SYRUP 30 GM/45 ML UDP PO SCH ×2 (08:09→20:09)
[2017-02-19] MEDS: PANTOprazole SOD 40 MG TAB PO SCH (08:09)
[2017-02-19] MEDS: METOLAZONE 5 MG TAB PO SCH ×2 (08:09→20:00)
[2017-02-19] MEDS: INSULIN GLARGINE SOLOSTAR 100 UNITS/ML 3 ML PEN SQ SCH (08:19)
[2017-02-19 08:31] VITALS: BP 93/57; PULSE 80; TEMP 36.7; O2SAT 100
--- NOTE | 2017-02-19 11:28 | Progress Note ---
Subjective Date of Service: Feb 19, 2017. Subjective Pt evaluation today including: conversation w/ patient, physical exam, lab review, review of studies, review of inpatient medication list Saw/examined the patient in room 415 doing well today, does not feel significant pain in the abdomen some swelling of the legs and abdomen persist Problem List Medical Problems: (1) Acute on chronic renal failure Status: Acute (2) MAGEN (acute kidney injury) Status: Acute (3) Anasarca Status: Acute (4) Anasarca Status: Acute (5) Bilateral leg edema Status: Acute (6) CHF (congestive heart failure) Status: Acute (7) CHF (congestive heart failure) Status: Acute (8) Dehydration Status: Acute (9) Dyspnea on exertion Status: Acute (10) Elevated lactic acid level Status: Acute (11) Elevated troponin Status: Acute (12) Hypotension Status: Acute (13) Pulmonary edema Status: Acute (14) Right heart failure Status: Acute Review of Systems Respiratory: No shortness of breath Cardiac: No chest pain Abdomen: No pain, No nausea, No vomiting, No diarrhea, No constipation, No GI bleeding Medications Current Inpatient Medications Medications (Trade) Dose Ordered Sig/Gin Route Start Time Stop Time Status Last Admin Dose Admin Acetaminophen (Tylenol Tab) 325 mg Q6H PRN PO 02/07/17 00:15 03/09/17 00:14 Insulin Aspart (novoLOG ASPART) SLIDING SCALE If C... ACHS SC 02/07/17 06:30 03/09/17 06:29 02/18/17 20:53 2 UNITS Glucose (Glucose 40% Gel) 15-30 GRAMS 15 GRAMS... UD PRN PO 02/07/17 00:15 03/09/17 00:14 Glucose (Glucose Chew Tab) 4-8 Tablets 4 Tabl... UD PRN PO 02/07/17 00:15 03/09/17 00:14 Dextrose (Dextrose 50% 50ML Syringe) 25-50ML OF 50% DW IV FOR... UD PRN IV 02/07/17 00:15 03/09/17 00:14 Glucagon (Glucagon Inj) 1 mg UD PRN SQ 02/07/17 00:15 03/09/17 00:14 Famotidine (Pepcid Tab) 20 mg QPM PO 02/07/17 21:00 03/09/17 20:59 02/18/17 20:18 20 MG Folic Acid (Folvite Tab) 1 mg DAILY PO 02/07/17 08:00 03/09/17 07:59 02/19/17 08:09 1 MG Lactulose (Chronulac Syrup) 10 gm TID PO 02/07/17 08:00 03/09/17 07:59 Future Hold 02/07/17 07:54 10 GM Metoprolol Succinate (Toprol Xl Tab) 12.5 mg DAILY PO 02/07/17 08:00 03/09/17 07:59 02/15/17 08:41 12.5 MG Nitroglycerin (Nitrostat Tab) 0.4 mg PRN UT 02/07/17 00:15 03/09/17 00:14 Pantoprazole Sodium (Protonix Tab) 40 mg DAILY PO 02/07/17 08:00 03/09/17 07:59 02/19/17 08:09 40 MG Insulin Glargine (Lantus Solostar Pen) 5 units DAILY SQ 02/07/17 08:00 03/09/17 07:59 02/19/17 08:19 5 UNITS Tramadol HCl (Ultram Tab) not relieved by tylenol @ Q6H PRN PO 02/07/17 00:15 03/09/17 00:14 Albuterol/ Ipratropium (Duoneb) 3 ml Q2H PRN INH 02/07/17 00:15 03/09/17 00:14 Ondansetron HCl (Zofran Inj) 4 mg Q6H PRN IV 02/07/17 00:15 03/09/17 00:14 Vancomycin HCl (Vancomycin Oral Soln) 125 mg QID PO 02/07/17 17:00 02/21/17 16:59 02/19/17 08:07 125 MG Raspberry (Raspberry Syrup 5ml Cup) 5 ml QID PO 02/07/17 17:00 02/21/17 16:59 02/19/17 08:08 5 ML Lactulose (Chronulac Syrup) 30 gm BID PO 02/08/17 20:00 03/10/17 19:59 02/19/17 08:09 30 GM Midodrine (Proamatine Tab) 2.5 mg [id number] PO 02/14/17 10:15 03/16/17 10:14 02/19/17 06:36 2.5 MG Cefepime HCl (Consult) 1 ea UD PRN N/A 02/14/17 20:45 03/16/17 20:44 Cefepime HCl 1000 mg/Dextrose 111.3 ml @ 222.6 mls/ hr Q24H IV 02/16/17 00:00 02/24/17 00:00 02/18/17 23:53 222.6 MLS/HR Furosemide 80 mg/ Albumin Human 58 ml @ 54 mls/hr Q8H IV 02/15/17 09:00 02/21/17 23:59 Future hold 02/19/17 08:11 54 MLS/HR Potassium Chloride (Klor-Con Tab) 40 meq TID PO 02/16/17 14:00 03/17/17 08:59 02/19/17 08:08 40 MEQ Metolazone (Zaroxolyn Tab) 5 mg BID PO 02/17/17 09:00 03/14/17 08:59 02/19/17 08:09 5 MG Objective Vital Signs Date Time Temp Pulse Resp B/P (MAP) Pulse Ox O2 Delivery O2 Flow Rate FiO2 02/19/17 08:31 36.7 80 20 93/57 (69) 100 BiPAP 02/19/17 08:00 Room Air 02/19/17 02:32 36.5 73 93/64 (74) 02/19/17 00:48 36.8 83 20 95/59 (71) 98 BiPAP 02/19/17 00:00 BiPAP 02/18/17 20:06 37.0 72 20 145/67 (93) 02/18/17 20:00 Room Air 02/18/17 17:22 36.8 106 18 100/67 (78) Room Air 02/18/17 15:30 Room Air Physical Exam General Appearance: no apparent distress Respiratory/Chest: lungs clear, normal breath sounds, no respiratory distress, no accessory muscle use Cardiovascular: regular rate, rhythm, no murmur Abdomen: non tender, soft, + distended Extremities: + swelling (+2 pitting edema b/l LE; with some chronic skin tears) Laboratory Results Last 24 Hours Test 02/18/17 11:53 02/18/17 16:58 02/18/17 20:07 02/19/17 06:13 Bedside Glucose 199 mg/dl 184 mg/dl 235 mg/dl White Blood Count 2.87 K/uL Red Blood Count 2.98 M/uL Hemoglobin 7.8 g/dL Hematocrit 24.6 % Mean Corpuscular Volume 82.6 fL Mean Corpuscular Hemoglobin 26.2 pg Mean Corpuscular Hemoglobin Concent 31.7 g/dl Platelet Count 67 K/uL Mean Platelet Volume 9.2 fL Neutrophils (%) (Auto) 76.8 % Lymphocytes (%) (Auto) 11.1 % Monocytes (%) (Auto) 8.0 % Eosinophils (%) (Auto) 2.8 % Basophils (%) (Auto) 1.0 % Neutrophils # (Auto) 2.20 K/uL Lymphocytes # (Auto) 0.32 K/uL Monocytes # (Auto) 0.23 K/uL Eosinophils # (Auto) 0.08 K/uL Basophils # (Auto) 0.03 K/uL RDW Standard Deviation 53.5 fL RDW Coefficient of Variation 17.7 % Immature Granulocyte % (Auto) 0.3 % Immature Granulocyte # (Auto) 0.01 K/uL Ovalocytes 1+ Sodium Level 141 mmol/L Potassium Level 4.4 mmol/L Chloride Level 106 mmol/L Carbon Dioxide Level 29 mmol/L Anion Gap 6.0 mmol/L Blood Urea Nitrogen 30 mg/dl Creatinine 2.50 mg/dl Est Creatinine Clear Calc Drug Dose 26.0 ml/min Estimated GFR () 25.8 Estimated GFR (Non- 22.3 BUN/Creatinine Ratio 12.0 Random Glucose 145 mg/dl Calcium Level 9.2 mg/dl Test 02/19/17 07:52 Bedside Glucose 143 mg/dl Assessment and Plan 87 year old male with history of Paroxysmal A fib, DM, CKD, COPD, Cirrhosis presenting with increasing abdominal girth. 02/19 plan to check an abdominal U/S to check for reaccumulation of fluid continue albumin/Lasix today - creatinine at 2.5 monitor this monitor H/H as his Hgb is 7.8, but stable 02/18 continue current medications today was given EPO yesterday, no more hematuria noted today will need to speak with nephrology regarding discharge medications will need intermittent paracentesis as outpatient 02/17 appreciate nephrology input Metolazone dose increased continue Albumin + Lasix patient's abdomen slightly distended, but soft, non-tender appreciate palliative care input - currently, patient would like paracentesis multiple times per week, rather than hospice. He is DNR. 02/16 spoke with patient's daughter about pt's condition he is now requiring at least twice weekly paracentesis due to fluid build-up spoke with them about options including hospice and palliative care - they are agreeable to speak with palliative care otherwise, their plan tentatively is to be discharged to the care home and return twice weekly for paracentesis 02/15 difficult to control his ascitic fluid from building up he has SHANE cirrhosis appreciate GI and nephrology input unfortunately, even after receiving paracentesis and his diuretics, he has built up again plan for paracentesis today (02/15) - removed 5L of fluid diuretics as per nephrology may need paracentesis twice weekly will consider palliative care/hospice - will need to speak with his daughter 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 - usually on lasix 80mg po daily transitioned to lasix IV + albumin BID day 5 diuresing more since Lasix increased 02/09: (+) increased abdominal girth repeat paracentesis ordered 02/10: s/p repeat Paracentesis, drained 3 L urine output decreasing started Albumin 4 doses, continued Lasix + albumin Midodrine PRN for hypotension 02/11: continue monitoring diuresis on Lasix IV + albumin BP stable 02/12: (+) oliguria but crea stable denies dyspnea Lasix + Albumin increased 02/13: Urine output increased continued Lasix + Alubmin q8h , Metolazone -- diuresing better on Lasix 80mg IV + Albumin q8h Midodrine added as patient's BP borderline appreciate Nephro SVC input - monitor Plt 50-60s no signs of bleeding - may need weekly paracentesis as outpatient CKD 4 - crea stable - management per #1 PSEUDOMONAS, PROTEUS UTI - no chills today, afebrile - ff up blood cultures, ascitic fluid cultures - changed Zosyn to Cefepime based on sensitivities patient has C diff, caution re: duration of antibiotics C DIFF COLITIS - On Vanco PO Day 11/28 diarrhea now intermittent, monitor MARGINAL BP - asymptomatic monitor - Decreased home beta noman dose by half Midodrine BID ordered DM2, insulin requiring well controlled as of recent hemoglobin A1c was 6.2 - continue Lantus and ISS Chronic anemia -- s/p 1 unit pRBC for Hg 6 -- Hg 7.1 will only transfuse if Hg < 7 due to liver cirrhosis, possible portal hypertension monitor hx 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 as per records -- will consult Hematology if levels decrease in trend sick sinus syndrome status post pacemaker hx HOCM sp myomectomy COPD as per records Pulmo-status at baseline DVT prophylaxis, SCDs RE thrombocytopenia DNR. Dispo pending eval and management of ascites, volume overload, CKD 4 in progress currently staying at [facility]
--- NOTE | 2017-02-19 13:00 | DIAGNOSTIC IMAGING REPORT ---
ASCITES-ABDOMEN LIMITED HISTORY: 87 years-old Male distention, SHANE cirrhosis acute abdominal distention. COMPARISON: Ultrasound guided paracentesis 02/15/2017 TECHNIQUE: Multiple real-time sonographic images of the abdomen were obtained assessing grayscale appearance assessing for ascites. FINDINGS: There is only a mild amount of abdominal ascites seen within all quadrants of the abdomen. Markedly decreased amount of ascites is noted from comparison study 02/15/2017 prior to paracentesis. Cirrhotic morphology of the liver redemonstrated IMPRESSION: Cirrhotic morphology of the liver redemonstrated with only mild amount of ascites within all quadrants of the abdomen, markedly decreased from comparison study 02/15/2017. The above report was generated using voice recognition software. It may contain grammatical, syntax or spelling errors. Electronically signed by: Fausto Mays M.D. 02/19/2017 12:59 PM Dictated Date/Time: 02/19/2017 12:57 PM
[2017-02-19 16:19] VITALS: BP 96/61; PULSE 69; TEMP 36.5
[2017-02-19] MEDS: FAMOTIDINE 20 MG TAB PO SCH (20:11)
[2017-02-19 20:15] VITALS: BP 93/57; PULSE 84; TEMP 37.3; O2SAT 96
[2017-02-20] VITALS (10 sets, daily range): BP systolic 90–113; BP diastolic 46–73; PULSE 65–84; TEMP 36.5–36.7; O2SAT 20–97
[2017-02-20] MEDS: CEFEPIME IV 1,000 MG in DEXTROSE 5% 100ML IV SCH (00:07)
[2017-02-20] MEDS: ALBUMIN 25% 50 ML with FUROSEMIDE INJ 80 MG IV SCH ×6 (01:09→17:03)
[2017-02-20] MEDS: MIDODRINE 2.5 MG TAB PO SCH ×2 (06:32→14:06)
[2017-02-20 07:11] LABS: HEMATOCRIT 23.3 % (42-52); MEAN CELL VOLUME 83.2 fL (80-100); MEAN CORPUSCULAR HEMOGLOBIN 26.1 pg (25-34); MEAN CORPUSCULAR HGB CONC 31.3 g/dl (32-36)
[2017-02-20 07:12] LABS: MEAN PLATELET VOLUME 9.1 fL (7.4-10.4); PLATELET COUNT 58 K/uL (130-400)
--- NOTE | 2017-02-20 07:29 | Nephrology Progress Note ---
Nephrology Progress Note Date of Service: Feb 20, 2017. Subjective 87 yo male with cirrhosis, chronic volume overload, hypotension, requiring multiple paracentesis and aggressive iv diuretics. ascites is much improved and edema in legs is significantly down. pt urinating about 2 liters a day. down about 15 kilos. pt feels much better. abdomen soft. Objective Date Time Temp Pulse Resp B/P (MAP) Pulse Ox O2 Delivery O2 Flow Rate FiO2 02/20/17 06:36 70 94/55 (68) 02/20/17 02:09 36.6 79 18 95/58 (70) 02/20/17 01:04 36.5 68 18 93/58 (70) BiPAP 02/20/17 00:00 Room Air 02/19/17 20:15 37.3 84 18 93/57 (69) 96 Room Air 02/19/17 20:00 Room Air 02/19/17 16:19 36.5 69 18 96/61 (73) Room Air 02/19/17 08:31 36.7 80 20 93/57 (69) 100 BiPAP 02/19/17 08:00 Room Air Physical Exam: General-aaox3 Eyes-no scleral icterus ENT-mmm Neck-supple Lungs-cta Heart-3/6 systolic murmur Abdomen-bs+/nontender/soft Extremities-+1 edema Neuro-nonfocal Current Inpatient Medications Medications (Trade) Dose Ordered Sig/Gin Route Start Time Stop Time Status Last Admin Dose Admin Acetaminophen (Tylenol Tab) 325 mg Q6H PRN PO 02/07/17 00:15 03/09/17 00:14 Insulin Aspart (novoLOG ASPART) SLIDING SCALE If C... ACHS SC 02/07/17 06:30 03/09/17 06:29 02/19/17 22:26 1 UNITS Glucose (Glucose 40% Gel) 15-30 GRAMS 15 GRAMS... UD PRN PO 02/07/17 00:15 03/09/17 00:14 Glucose (Glucose Chew Tab) 4-8 Tablets 4 Tabl... UD PRN PO 02/07/17 00:15 03/09/17 00:14 Dextrose (Dextrose 50% 50ML Syringe) 25-50ML OF 50% DW IV FOR... UD PRN IV 02/07/17 00:15 03/09/17 00:14 Glucagon (Glucagon Inj) 1 mg UD PRN SQ 02/07/17 00:15 03/09/17 00:14 Famotidine (Pepcid Tab) 20 mg QPM PO 02/07/17 21:00 03/09/17 20:59 02/19/17 20:11 20 MG Folic Acid (Folvite Tab) 1 mg DAILY PO 02/07/17 08:00 03/09/17 07:59 02/19/17 08:09 1 MG Lactulose (Chronulac Syrup) 10 gm TID PO 02/07/17 08:00 03/09/17 07:59 Future Hold 02/07/17 07:54 10 GM Metoprolol Succinate (Toprol Xl Tab) 12.5 mg DAILY PO 02/07/17 08:00 03/09/17 07:59 02/15/17 08:41 12.5 MG Nitroglycerin (Nitrostat Tab) 0.4 mg PRN UT 02/07/17 00:15 03/09/17 00:14 Pantoprazole Sodium (Protonix Tab) 40 mg DAILY PO 02/07/17 08:00 03/09/17 07:59 02/19/17 08:09 40 MG Insulin Glargine (Lantus Solostar Pen) 5 units DAILY SQ 02/07/17 08:00 03/09/17 07:59 02/19/17 08:19 5 UNITS Tramadol HCl (Ultram Tab) not relieved by tylenol @ Q6H PRN PO 02/07/17 00:15 03/09/17 00:14 Albuterol/ Ipratropium (Duoneb) 3 ml Q2H PRN INH 02/07/17 00:15 03/09/17 00:14 Ondansetron HCl (Zofran Inj) 4 mg Q6H PRN IV 02/07/17 00:15 03/09/17 00:14 Vancomycin HCl (Vancomycin Oral Soln) 125 mg QID PO 02/07/17 17:00 02/21/17 16:59 02/19/17 20:09 125 MG Raspberry (Raspberry Syrup 5ml Cup) 5 ml QID PO 02/07/17 17:00 02/21/17 16:59 02/19/17 20:09 5 ML Lactulose (Chronulac Syrup) 30 gm BID PO 02/08/17 20:00 03/10/17 19:59 02/19/17 20:09 30 GM Midodrine (Proamatine Tab) 2.5 mg [id number] PO 02/14/17 10:15 03/16/17 10:14 02/20/17 06:32 2.5 MG Cefepime HCl (Consult) 1 ea UD PRN N/A 02/14/17 20:45 03/16/17 20:44 Cefepime HCl 1000 mg/Dextrose 111.3 ml @ 222.6 mls/ hr Q24H IV 02/16/17 00:00 02/24/17 00:00 02/20/17 00:07 222.6 MLS/HR Furosemide 80 mg/ Albumin Human 58 ml @ 54 mls/hr Q8H IV 02/15/17 09:00 02/21/17 23:59 Future hold 02/20/17 01:09 54 MLS/HR Potassium Chloride (Klor-Con Tab) 40 meq TID PO 02/16/17 14:00 03/17/17 08:59 02/19/17 20:10 40 MEQ Metolazone (Zaroxolyn Tab) 5 mg BID PO 02/17/17 09:00 03/14/17 08:59 02/19/17 08:09 5 MG Last 24 Hours Test 02/19/17 07:52 02/19/17 11:31 02/19/17 16:53 02/19/17 20:00 Bedside Glucose 143 mg/dl 195 mg/dl 153 mg/dl 190 mg/dl Test 02/20/17 06:40 White Blood Count 2.50 K/uL Red Blood Count 2.80 M/uL Hemoglobin 7.3 g/dL Hematocrit 23.3 % Mean Corpuscular Volume 83.2 fL Mean Corpuscular Hemoglobin 26.1 pg Mean Corpuscular Hemoglobin Concent 31.3 g/dl Platelet Count 58 K/uL Mean Platelet Volume 9.1 fL RDW Standard Deviation 53.9 fL RDW Coefficient of Variation 17.8 % Assessment & Plan ckd stage 4-creatinine 2.5 and relatively stable despite the attempts at aggressive diuresis. no role for dialysis at this time. Volume overload-pt recently had imaging with very little ascites noted. no role for paracentesis at this time. initially thought he may require weekly paracentesis as an outpt. will need to monitor closely. edema is much improved. would like to remove his keyes. continue on lasix with albumin 80 iv q8 and metolazone 5 bid. outpt dosing would recommend lasix 120 tid and metolazone 5 a day and follow weights and labs closely as outpt. Anemia-hg levels are low. question if he has element of anemia of ckd. ferritin levels though are below 100 and would like to give him a dose of venofer to help raise his iron levels.
[2017-02-20 07:43] LABS: BUN/CREATININE RATIO 11.9 (10-20); CALCIUM 8.9 mg/dl (8.5-10.1); CREATININE 2.6 mg/dl (0.60-1.40)
[2017-02-20 07:54] LABS: ANISOCYTOSIS PRESENT; BASO % 0.4 %; BASO ABS # 0.01 K/uL (0-0.2); COMPLETE YES; EOS % 3.2 %; GIANT PLATELETS 1+; HYPERSEGMENTED POLYS 1+; IG% 0.4 %; LYMPH % 11.2 %; LYMPH ABS # 0.28 K/uL (1.2-3.4); MONO % 11.6 %; NEUT % 73.2 %; OVALOCYTES 1+
[2017-02-20] MEDS: VANCOMYCIN HCL 125 MG/2.5ML SOLN PO SCH ×4 (07:56→20:24)
[2017-02-20] MEDS: RASPBERRY SYRUP 5 ML UDP PO SCH ×4 (07:56→20:24)
[2017-02-20] MEDS: PANTOprazole SOD 40 MG TAB PO SCH (07:56)
[2017-02-20] MEDS: POTASSIUM CHLORIDE 20 MEQ TABCR PO SCH ×3 (07:57→20:24)
[2017-02-20] MEDS: METOPROLOL SUCC 25MG EXT REL TAB PO SCH (07:57)
[2017-02-20] MEDS: METOLAZONE 5 MG TAB PO SCH ×2 (07:57→20:24)
[2017-02-20] MEDS: INSULIN ASPART 100 UNITS/ML 3 ML PEN SC SCH ×4 (07:58→20:29)
[2017-02-20] MEDS: LACTULOSE SYRUP 30 GM/45 ML UDP PO SCH ×2 (07:58→20:00)
[2017-02-20] MEDS ORDERED: IRON SUCROSE INJ 100 MG in SODIUM CHLORIDE 0.9% 100ML 100 ML IV ONE (08:00)
[2017-02-20] MEDS: INSULIN GLARGINE SOLOSTAR 100 UNITS/ML 3 ML PEN SQ SCH (08:02)
--- NOTE | 2017-02-20 18:00 | Progress Note ---
Subjective Date of Service: Feb 20, 2017. Subjective Pt evaluation today including: conversation w/ patient, physical exam, lab review, review of studies, review of inpatient medication list Saw/examined the patient in room 415 No problems/issues to note today Feeling much better Problem List Medical Problems: (1) Acute on chronic renal failure Status: Acute (2) MGAEN (acute kidney injury) Status: Acute (3) Anasarca Status: Acute (4) Anasarca Status: Acute (5) Bilateral leg edema Status: Acute (6) CHF (congestive heart failure) Status: Acute (7) CHF (congestive heart failure) Status: Acute (8) Dehydration Status: Acute (9) Dyspnea on exertion Status: Acute (10) Elevated lactic acid level Status: Acute (11) Elevated troponin Status: Acute (12) Hypotension Status: Acute (13) Pulmonary edema Status: Acute (14) Right heart failure Status: Acute Review of Systems Constitutional: No fever, No chills Respiratory: No cough, No sputum, No shortness of breath Cardiac: No chest pain Abdomen: No pain, No nausea, No vomiting, No diarrhea Medications Current Inpatient Medications Medications (Trade) Dose Ordered Sig/Gin Route Start Time Stop Time Status Last Admin Dose Admin Acetaminophen (Tylenol Tab) 325 mg Q6H PRN PO 02/07/17 00:15 03/09/17 00:14 Insulin Aspart (novoLOG ASPART) SLIDING SCALE If C... ACHS SC 02/07/17 06:30 03/09/17 06:29 02/20/17 17:00 1 UNITS Glucose (Glucose 40% Gel) 15-30 GRAMS 15 GRAMS... UD PRN PO 02/07/17 00:15 03/09/17 00:14 Glucose (Glucose Chew Tab) 4-8 Tablets 4 Tabl... UD PRN PO 02/07/17 00:15 03/09/17 00:14 Dextrose (Dextrose 50% 50ML Syringe) 25-50ML OF 50% DW IV FOR... UD PRN IV 02/07/17 00:15 03/09/17 00:14 Glucagon (Glucagon Inj) 1 mg UD PRN SQ 02/07/17 00:15 03/09/17 00:14 Famotidine (Pepcid Tab) 20 mg QPM PO 02/07/17 21:00 03/09/17 20:59 02/19/17 20:11 20 MG Folic Acid (Folvite Tab) 1 mg DAILY PO 02/07/17 08:00 03/09/17 07:59 02/20/17 07:58 1 MG Lactulose (Chronulac Syrup) 10 gm TID PO 02/07/17 08:00 03/09/17 07:59 Future Hold 02/07/17 07:54 10 GM Metoprolol Succinate (Toprol Xl Tab) 12.5 mg DAILY PO 02/07/17 08:00 03/09/17 07:59 02/15/17 08:41 12.5 MG Nitroglycerin (Nitrostat Tab) 0.4 mg PRN UT 02/07/17 00:15 03/09/17 00:14 Pantoprazole Sodium (Protonix Tab) 40 mg DAILY PO 02/07/17 08:00 03/09/17 07:59 02/20/17 07:56 40 MG Insulin Glargine (Lantus Solostar Pen) 5 units DAILY SQ 02/07/17 08:00 03/09/17 07:59 02/20/17 08:02 5 UNITS Tramadol HCl (Ultram Tab) not relieved by tylenol @ Q6H PRN PO 02/07/17 00:15 03/09/17 00:14 Albuterol/ Ipratropium (Duoneb) 3 ml Q2H PRN INH 02/07/17 00:15 03/09/17 00:14 Ondansetron HCl (Zofran Inj) 4 mg Q6H PRN IV 02/07/17 00:15 03/09/17 00:14 Vancomycin HCl (Vancomycin Oral Soln) 125 mg QID PO 02/07/17 17:00 02/21/17 16:59 02/20/17 16:59 125 MG Raspberry (Raspberry Syrup 5ml Cup) 5 ml QID PO 02/07/17 17:00 02/21/17 16:59 02/20/17 16:59 5 ML Lactulose (Chronulac Syrup) 30 gm BID PO 02/08/17 20:00 03/10/17 19:59 02/20/17 07:58 30 GM Midodrine (Proamatine Tab) 2.5 mg [id number] PO 02/14/17 10:15 03/16/17 10:14 02/20/17 14:06 2.5 MG Cefepime HCl (Consult) 1 ea UD PRN N/A 02/14/17 20:45 03/16/17 20:44 Cefepime HCl 1000 mg/Dextrose 111.3 ml @ 222.6 mls/ hr Q24H IV 02/16/17 00:00 02/24/17 00:00 02/20/17 00:07 222.6 MLS/HR Furosemide 80 mg/ Albumin Human 58 ml @ 54 mls/hr Q8H IV 02/15/17 09:00 02/21/17 23:59 Future hold 02/20/17 17:03 54 MLS/HR Potassium Chloride (Klor-Con Tab) 40 meq TID PO 02/16/17 14:00 03/17/17 08:59 02/20/17 14:07 40 MEQ Metolazone (Zaroxolyn Tab) 5 mg BID PO 02/17/17 09:00 03/14/17 08:59 02/20/17 07:57 5 MG Objective Vital Signs Date Time Temp Pulse Resp B/P (MAP) Pulse Ox O2 Delivery O2 Flow Rate FiO2 02/20/17 17:00 84 20 113/73 (86) 20 02/20/17 15:44 36.5 65 18 94/58 (70) Room Air 02/20/17 14:53 95 Room Air 02/20/17 11:30 36.6 72 20 97/62 (74) 94 02/20/17 10:20 67 20 90/54 (66) 96 Room Air 02/20/17 08:30 95 Room Air 02/20/17 07:33 36.7 79 18 90/46 (61) 97 Room Air 02/20/17 06:36 70 94/55 (68) 02/20/17 02:09 36.6 79 18 95/58 (70) 02/20/17 01:04 36.5 68 18 93/58 (70) BiPAP 02/20/17 00:00 Room Air 02/19/17 20:15 37.3 84 18 93/57 (69) 96 Room Air 02/19/17 20:00 Room Air Physical Exam General Appearance: no apparent distress Respiratory/Chest: lungs clear, normal breath sounds, no respiratory distress, no accessory muscle use Cardiovascular: regular rate, rhythm, no murmur Abdomen: normal bowel sounds, non tender, soft Extremities: + swelling (+1-2 pitting edema b/l LE) Laboratory Results Last 24 Hours Test 02/19/17 20:00 02/20/17 06:40 02/20/17 07:33 02/20/17 11:31 Bedside Glucose 190 mg/dl 145 mg/dl 229 mg/dl White Blood Count 2.50 K/uL Red Blood Count 2.80 M/uL Hemoglobin 7.3 g/dL Hematocrit 23.3 % Mean Corpuscular Volume 83.2 fL Mean Corpuscular Hemoglobin 26.1 pg Mean Corpuscular Hemoglobin Concent 31.3 g/dl Platelet Count 58 K/uL Mean Platelet Volume 9.1 fL Neutrophils (%) (Auto) 73.2 % Lymphocytes (%) (Auto) 11.2 % Monocytes (%) (Auto) 11.6 % Eosinophils (%) (Auto) 3.2 % Basophils (%) (Auto) 0.4 % Neutrophils # (Auto) 1.83 K/uL Lymphocytes # (Auto) 0.28 K/uL Monocytes # (Auto) 0.29 K/uL Eosinophils # (Auto) 0.08 K/uL Basophils # (Auto) 0.01 K/uL RDW Standard Deviation 53.9 fL RDW Coefficient of Variation 17.8 % Immature Granulocyte % (Auto) 0.4 % Immature Granulocyte # (Auto) 0.01 K/uL Hypersegmented Polys 1+ Giant Platelets 1+ Anisocytosis PRESENT Ovalocytes 1+ Sodium Level 141 mmol/L Potassium Level 4.0 mmol/L Chloride Level 105 mmol/L Carbon Dioxide Level 27 mmol/L Anion Gap 9.0 mmol/L Blood Urea Nitrogen 31 mg/dl Creatinine 2.60 mg/dl Est Creatinine Clear Calc Drug Dose 24.9 ml/min Estimated GFR () 24.6 Estimated GFR (Non- 21.2 BUN/Creatinine Ratio 11.9 Random Glucose 140 mg/dl Calcium Level 8.9 mg/dl Test 02/20/17 16:49 Bedside Glucose 182 mg/dl Assessment and Plan 87 year old male with history of Paroxysmal A fib, DM, CKD, COPD, Cirrhosis presenting with increasing abdominal girth. 02/20 can likely d/c back to facility with outpatient diuretic therapy as per nephrology monitor H/H and kidney function 02/19 plan to check an abdominal U/S to check for reaccumulation of fluid continue albumin/Lasix today - creatinine at 2.5 monitor this monitor H/H as his Hgb is 7.8, but stable 02/18 continue current medications today was given EPO yesterday, no more hematuria noted today will need to speak with nephrology regarding discharge medications will need intermittent paracentesis as outpatient 02/17 appreciate nephrology input Metolazone dose increased continue Albumin + Lasix patient's abdomen slightly distended, but soft, non-tender appreciate palliative care input - currently, patient would like paracentesis multiple times per week, rather than hospice. He is DNR. 02/16 spoke with patient's daughter about pt's condition he is now requiring at least twice weekly paracentesis due to fluid build-up spoke with them about options including hospice and palliative care - they are agreeable to speak with palliative care otherwise, their plan tentatively is to be discharged to the residential and return twice weekly for paracentesis 02/15 difficult to control his ascitic fluid from building up he has SHANE cirrhosis appreciate GI and nephrology input unfortunately, even after receiving paracentesis and his diuretics, he has built up again plan for paracentesis today (02/15) - removed 5L of fluid diuretics as per nephrology may need paracentesis twice weekly will consider palliative care/hospice - will need to speak with his daughter 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 - usually on lasix 80mg po daily transitioned to lasix IV + albumin BID day 5 diuresing more since Lasix increased 02/09: (+) increased abdominal girth repeat paracentesis ordered 02/10: s/p repeat Paracentesis, drained 3 L urine output decreasing started Albumin 4 doses, continued Lasix + albumin Midodrine PRN for hypotension 02/11: continue monitoring diuresis on Lasix IV + albumin BP stable 02/12: (+) oliguria but crea stable denies dyspnea Lasix + Albumin increased 02/13: Urine output increased continued Lasix + Alubmin q8h , Metolazone -- diuresing better on Lasix 80mg IV + Albumin q8h Midodrine added as patient's BP borderline appreciate Nephro SVC input - monitor Plt 50-60s no signs of bleeding - may need weekly paracentesis as outpatient CKD 4 - crea stable - management per #1 PSEUDOMONAS, PROTEUS UTI - no chills today, afebrile - ff up blood cultures, ascitic fluid cultures - changed Zosyn to Cefepime based on sensitivities patient has C diff, caution re: duration of antibiotics C DIFF COLITIS - On Vanco PO Day 11/28 diarrhea now intermittent, monitor MARGINAL BP - asymptomatic monitor - Decreased home beta noman dose by half Midodrine BID ordered DM2, insulin requiring well controlled as of recent hemoglobin A1c was 6.2 - continue Lantus and ISS Chronic anemia -- s/p 1 unit pRBC for Hg 6 -- Hg 7.1 will only transfuse if Hg < 7 due to liver cirrhosis, possible portal hypertension monitor hx 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 as per records -- will consult Hematology if levels decrease in trend sick sinus syndrome status post pacemaker hx HOCM sp myomectomy COPD as per records Pulmo-status at baseline DVT prophylaxis, SCDs RE thrombocytopenia DNR. Dispo pending eval and management of ascites, volume overload, CKD 4 in progress currently staying at [facility]
[2017-02-20] MEDS: FAMOTIDINE 20 MG TAB PO SCH (20:24)
[2017-02-21] MEDS: CEFEPIME IV 1,000 MG in DEXTROSE 5% 100ML IV SCH (00:48)
[2017-02-21 00:55] VITALS: BP 95/56; PULSE 89; TEMP 36.6; O2SAT 98
[2017-02-21 06:03] LABS: HEMATOCRIT 23.5 % (42-52); MEAN CORPUSCULAR HEMOGLOBIN 25.4 pg (25-34); MEAN CORPUSCULAR HGB CONC 30.6 g/dl (32-36); RED BLOOD COUNT 2.83 M/uL (4.7-6.1); WHITE BLOOD COUNT 2.69 K/uL (4.8-10.8)
[2017-02-21 06:05] LABS: MEAN PLATELET VOLUME 9.1 fL (7.4-10.4); PLATELET COUNT 59 K/uL (130-400)
[2017-02-21 06:32] LABS: CALCIUM 8.8 mg/dl (8.5-10.1); CREATININE 2.7 mg/dl (0.60-1.40); MAGNESIUM 1.9 mg/dl (1.8-2.4); POTASSIUM 4.3 mmol/L (3.5-5.1)
[2017-02-21 07:43] VITALS: BP 99/59; PULSE 72; TEMP 36.8; O2SAT 95
[2017-02-21] MEDS: PANTOprazole SOD 40 MG TAB PO SCH (08:00)
[2017-02-21] MEDS: METOPROLOL SUCC 25MG EXT REL TAB PO SCH (08:00)
[2017-02-21] MEDS: METOLAZONE 5 MG TAB PO SCH (08:00)
[2017-02-21] MEDS: POTASSIUM CHLORIDE 20 MEQ TABCR PO SCH ×2 (08:02→12:30)
[2017-02-21] MEDS: VANCOMYCIN HCL 125 MG/2.5ML SOLN PO SCH ×2 (08:03→12:29)
[2017-02-21] MEDS: RASPBERRY SYRUP 5 ML UDP PO SCH ×2 (08:03→12:29)
[2017-02-21] MEDS: MIDODRINE 2.5 MG TAB PO SCH ×2 (08:03→12:29)
[2017-02-21] MEDS: LACTULOSE SYRUP 30 GM/45 ML UDP PO SCH (08:03)
[2017-02-21] MEDS: INSULIN ASPART 100 UNITS/ML 3 ML PEN SC SCH ×2 (08:04→12:32)
[2017-02-21] MEDS: INSULIN GLARGINE SOLOSTAR 100 UNITS/ML 3 ML PEN SQ SCH (08:06)
--- NOTE | 2017-02-21 11:06 | Progress Note ---
Subjective Date of Service: Feb 21, 2017. Subjective Pt evaluation today including: conversation w/ patient, physical exam, lab review, review of studies, review of inpatient medication list Saw/examined the patient in room 415 He's doing well, diarrhea improving No abdominal pain Swelling subsided in the legs and abdomen Problem List Medical Problems: (1) Acute on chronic renal failure Status: Acute (2) MAGEN (acute kidney injury) Status: Acute (3) Anasarca Status: Acute (4) Anasarca Status: Acute (5) Bilateral leg edema Status: Acute (6) CHF (congestive heart failure) Status: Acute (7) CHF (congestive heart failure) Status: Acute (8) Dehydration Status: Acute (9) Dyspnea on exertion Status: Acute (10) Elevated lactic acid level Status: Acute (11) Elevated troponin Status: Acute (12) Hypotension Status: Acute (13) Pulmonary edema Status: Acute (14) Right heart failure Status: Acute Review of Systems Constitutional: No fever, No chills Respiratory: No shortness of breath Abdomen: + diarrhea (improving), No pain, No nausea, No vomiting Medications Current Inpatient Medications Medications (Trade) Dose Ordered Sig/Gin Route Start Time Stop Time Status Last Admin Dose Admin Acetaminophen (Tylenol Tab) 325 mg Q6H PRN PO 02/07/17 00:15 03/09/17 00:14 Insulin Aspart (novoLOG ASPART) SLIDING SCALE If C... ACHS SC 02/07/17 06:30 03/09/17 06:29 02/20/17 20:29 2 UNITS Glucose (Glucose 40% Gel) 15-30 GRAMS 15 GRAMS... UD PRN PO 02/07/17 00:15 03/09/17 00:14 Glucose (Glucose Chew Tab) 4-8 Tablets 4 Tabl... UD PRN PO 02/07/17 00:15 03/09/17 00:14 Dextrose (Dextrose 50% 50ML Syringe) 25-50ML OF 50% DW IV FOR... UD PRN IV 02/07/17 00:15 03/09/17 00:14 Glucagon (Glucagon Inj) 1 mg UD PRN SQ 02/07/17 00:15 03/09/17 00:14 Famotidine (Pepcid Tab) 20 mg QPM PO 02/07/17 21:00 03/09/17 20:59 02/20/17 20:24 20 MG Folic Acid (Folvite Tab) 1 mg DAILY PO 02/07/17 08:00 03/09/17 07:59 02/21/17 08:02 1 MG Lactulose (Chronulac Syrup) 10 gm TID PO 02/07/17 08:00 03/09/17 07:59 Future Hold 02/07/17 07:54 10 GM Metoprolol Succinate (Toprol Xl Tab) 12.5 mg DAILY PO 02/07/17 08:00 03/09/17 07:59 02/15/17 08:41 12.5 MG Nitroglycerin (Nitrostat Tab) 0.4 mg PRN UT 02/07/17 00:15 03/09/17 00:14 Pantoprazole Sodium (Protonix Tab) 40 mg DAILY PO 02/07/17 08:00 03/09/17 07:59 02/21/17 08:00 40 MG Insulin Glargine (Lantus Solostar Pen) 5 units DAILY SQ 02/07/17 08:00 03/09/17 07:59 02/21/17 08:06 5 UNITS Tramadol HCl (Ultram Tab) not relieved by tylenol @ Q6H PRN PO 02/07/17 00:15 03/09/17 00:14 Albuterol/ Ipratropium (Duoneb) 3 ml Q2H PRN INH 02/07/17 00:15 03/09/17 00:14 Ondansetron HCl (Zofran Inj) 4 mg Q6H PRN IV 02/07/17 00:15 03/09/17 00:14 Vancomycin HCl (Vancomycin Oral Soln) 125 mg QID PO 02/07/17 17:00 02/21/17 16:59 02/21/17 08:03 125 MG Raspberry (Raspberry Syrup 5ml Cup) 5 ml QID PO 02/07/17 17:00 02/21/17 16:59 02/21/17 08:03 5 ML Lactulose (Chronulac Syrup) 30 gm BID PO 02/08/17 20:00 03/10/17 19:59 02/21/17 08:03 30 GM Midodrine (Proamatine Tab) 2.5 mg [id number] PO 02/14/17 10:15 03/16/17 10:14 02/21/17 08:03 2.5 MG Cefepime HCl (Consult) 1 ea UD PRN N/A 02/14/17 20:45 03/16/17 20:44 Cefepime HCl 1000 mg/Dextrose 111.3 ml @ 222.6 mls/ hr Q24H IV 02/16/17 00:00 02/24/17 00:00 02/21/17 00:48 222.6 MLS/HR Furosemide 80 mg/ Albumin Human 58 ml @ 54 mls/hr Q8H IV 02/15/17 09:00 02/21/17 23:59 Future hold 02/20/17 17:03 54 MLS/HR Potassium Chloride (Klor-Con Tab) 40 meq TID PO 02/16/17 14:00 03/17/17 08:59 02/21/17 08:02 40 MEQ Metolazone (Zaroxolyn Tab) 5 mg BID PO 02/17/17 09:00 03/14/17 08:59 02/20/17 20:24 5 MG Objective Vital Signs Date Time Temp Pulse Resp B/P (MAP) Pulse Ox O2 Delivery O2 Flow Rate FiO2 02/21/17 08:56 Room Air 02/21/17 07:43 36.8 72 20 99/59 (72) 95 02/21/17 01:18 Room Air 02/21/17 00:55 36.6 89 18 95/56 (69) 98 02/20/17 19:47 Room Air 02/20/17 17:00 84 20 113/73 (86) 20 02/20/17 15:44 36.5 65 18 94/58 (70) Room Air 02/20/17 14:53 95 Room Air 02/20/17 11:30 36.6 72 20 97/62 (74) 94 Physical Exam General Appearance: no apparent distress Respiratory/Chest: lungs clear, normal breath sounds, no respiratory distress, no accessory muscle use Abdomen: normal bowel sounds, non tender, soft Extremities: + pertinent finding (+2 pitting edema b/l LE, improving, venous stasis dermatitis) Neurologic/Psychiatric: no motor/sensory deficits, alert, normal mood/affect Laboratory Results Last 24 Hours Test 02/20/17 11:31 02/20/17 16:49 02/20/17 20:17 02/21/17 05:47 Bedside Glucose 229 mg/dl 182 mg/dl 223 mg/dl White Blood Count 2.69 K/uL Red Blood Count 2.83 M/uL Hemoglobin 7.2 g/dL Hematocrit 23.5 % Mean Corpuscular Volume 83.0 fL Mean Corpuscular Hemoglobin 25.4 pg Mean Corpuscular Hemoglobin Concent 30.6 g/dl RDW Standard Deviation 54.1 fL RDW Coefficient of Variation 17.8 % Platelet Count 59 K/uL Mean Platelet Volume 9.1 fL Sodium Level 139 mmol/L Potassium Level 4.3 mmol/L Chloride Level 104 mmol/L Carbon Dioxide Level 29 mmol/L Anion Gap 6.0 mmol/L Blood Urea Nitrogen 32 mg/dl Creatinine 2.70 mg/dl Est Creatinine Clear Calc Drug Dose 24.0 ml/min Estimated GFR () 23.5 Estimated GFR (Non- 20.3 BUN/Creatinine Ratio 12.0 Random Glucose 138 mg/dl Calcium Level 8.8 mg/dl Magnesium Level 1.9 mg/dl Test 02/21/17 07:42 Bedside Glucose 135 mg/dl Assessment and Plan 87 year old male with history of Paroxysmal A fib, DM, CKD, COPD, Cirrhosis presenting with increasing abdominal girth. 02/[address] [facility] today plan to keep on oral Vanco for C. Diff Lasix 120mg TID and Metolazone 5mg for the ascites daily weights will need lab work in one week (to check kidneys, liver, and Hgb) 02/20 can likely d/c back to facility with outpatient diuretic therapy as per nephrology monitor H/H and kidney function 02/19 plan to check an abdominal U/S to check for reaccumulation of fluid continue albumin/Lasix today - creatinine at 2.5 monitor this monitor H/H as his Hgb is 7.8, but stable 02/18 continue current medications today was given EPO yesterday, no more hematuria noted today will need to speak with nephrology regarding discharge medications will need intermittent paracentesis as outpatient 02/17 appreciate nephrology input Metolazone dose increased continue Albumin + Lasix patient's abdomen slightly distended, but soft, non-tender appreciate palliative care input - currently, patient would like paracentesis multiple times per week, rather than hospice. He is DNR. 02/16 spoke with patient's daughter about pt's condition he is now requiring at least twice weekly paracentesis due to fluid build-up spoke with them about options including hospice and palliative care - they are agreeable to speak with palliative care otherwise, their plan tentatively is to be discharged to the [place] [facility] and return twice weekly for paracentesis 02/15 difficult to control his ascitic fluid from building up he has SHANE cirrhosis appreciate GI and nephrology input unfortunately, even after receiving paracentesis and his diuretics, he has built up again plan for paracentesis today (02/15) - removed 5L of fluid diuretics as per nephrology may need paracentesis twice weekly will consider palliative care/hospice - will need to speak with his daughter 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 - usually on lasix 80mg po daily transitioned to lasix IV + albumin BID day 5 diuresing more since Lasix increased 02/09: (+) increased abdominal girth repeat paracentesis ordered 02/10: s/p repeat Paracentesis, drained 3 L urine output decreasing started Albumin 4 doses, continued Lasix + albumin Midodrine PRN for hypotension 02/11: continue monitoring diuresis on Lasix IV + albumin BP stable 02/12: (+) oliguria but crea stable denies dyspnea Lasix + Albumin increased 02/13: Urine output increased continued Lasix + Alubmin q8h , Metolazone -- diuresing better on Lasix 80mg IV + Albumin q8h Midodrine added as patient's BP borderline appreciate Nephro SVC input - monitor Plt 50-60s no signs of bleeding - may need weekly paracentesis as outpatient CKD 4 - crea stable - management per #1 PSEUDOMONAS, PROTEUS UTI - no chills today, afebrile - ff up blood cultures, ascitic fluid cultures - changed Zosyn to Cefepime based on sensitivities patient has C diff, caution re: duration of antibiotics C DIFF COLITIS - On Vanco PO Day 11/28 diarrhea now intermittent, monitor MARGINAL BP - asymptomatic monitor - Decreased home beta noman dose by half Midodrine BID ordered DM2, insulin requiring well controlled as of recent hemoglobin A1c was 6.2 - continue Lantus and ISS Chronic anemia -- s/p 1 unit pRBC for Hg 6 -- Hg 7.1 will only transfuse if Hg < 7 due to liver cirrhosis, possible portal hypertension monitor hx 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 as per records -- will consult Hematology if levels decrease in trend sick sinus syndrome status post pacemaker hx HOCM sp myomectomy COPD as per records Pulmo-status at baseline DVT prophylaxis, SCDs RE thrombocytopenia DNR. Dispo pending eval and management of ascites, volume overload, CKD 4 in progress currently staying at [facility]
[2017-02-21] MEDS ORDERED: VNCS125 PO (11:14)
[2017-02-21] MEDS ORDERED: PRMT25 PO (11:14)
[2017-02-21] MEDS ORDERED: ZRX5 PO (11:14)
[2017-02-21] MEDS ORDERED: FURO80TA63 PO (11:14)
[2017-02-21] MEDS ORDERED: METO25TA3 PO (11:14)
--- NOTE | 2017-02-21 11:24 | Discharge Instructions ---
Discharge Instructions Date of Service Feb 21, 2017. Admission Reason for Admission: Decompensation Of Cirrhosis Of Liver Discharge Discharge Diagnosis / Problem: SHANE Cirrhosis, Ascites, C. diff colitis Discharge Goals Goal(s): Decrease discomfort, Improve function, Diagnostic testing, Therapeutic intervention Activity Recommendations Activity Limitations: resume your previous activity . Instructions / Follow-Up Instructions / Follow-Up Please follow-up with Dr. Garza on February 28 at 11:05AM * You will be on a high dose of Lasix as well as Metolazone * Will need daily weights * We will need weekly blood work to check kidneys, liver and hemoglobin levels Current Hospital Diet Patient's current hospital diet: Diabetes Type 2 Diet, Low Sodium Diet (2gm Na) Discharge Diet Recommended Diet: Low Sodium Diet (2gm Na), Diabetes Type 2 Diet Fluid Restriction: 1200 ml (5 cups) Pending Studies Studies pending at discharge: no Laboratory Results Hemoglobin A1c Test 02/07/17 00:51 Range/Units Estimated Average Glucose 131 mg/dl Hemoglobin A1c 6.2 H 4.5-5.6 % Medical Emergencies . Who to Call and When: Medical Emergencies: If at any time you feel your situation is an emergency, please call 911 immediately. . Non-Emergent Contact Non-Emergency issues call your: Primary Care Provider . . "Provider Documentation" section prepared by Quang Saleh. . VTE Core Measure Inpt VTE Proph given/why not?: SCD's
--- NOTE | 2017-02-21 11:31 | Discharge Summary ---
Discharge Summary Date of Service Feb 21, 2017. Discharge Summary Admission Date: Feb 06, 2017 at 22:42 Discharge Date: Feb 21, 2017 Discharge Disposition: Home with services Principal Diagnosis: SHANE Cirrhosis, Ascites C. Diff Colitis CKD stage IV Medication Reconciliation New Medications: Metolazone (Metolazone) 5 Mg Tab 5 MG PO BID for 30 Days, #60 TAB Midodrine (Midodrine HCl) 2.5 Mg Tab 2.5 MG PO [id number] for 10 Days, #20 TAB Vancomycin HCl (Vancomycin HCl) 125 Mg/2.5 Ml Susp 125 MG PO QID for 3 Days, #30 ML Changed Medications: Furosemide (Lasix) 80 Mg Tab 120 MG PO TID for 30 Days, #45 TAB (Changed from: 80 MG; DAILY) Metoprolol Succ (Toprol Xl) (Toprol-Xl) 25 Mg Tabcr 12.5 MG PO DAILY for 30 Days, #15 TAB (Changed from: 25 MG) Continued Medications: Acetaminophen Tab (Tylenol) 325 Mg Tab 650 MG PO Q4 PRN for Fever, TAB NOT TO EXCEED 3000MG APAP/24HR Famotidine (Pepcid) 20 Mg Tab 20 MG PO QPM, TAB Folic Acid (Folic Acid) 1 Mg Tab 1 MG PO DAILY Insulin Aspart (Novolog) 100 Units/Ml Inj SQ ACHS SLIDING SCALE Insulin Glargine (Lantus Solostar) 100 Unit/Ml Inj 10 UNITS SQ QPM, PEN Lactulose (Chronulac) 10 Gm/15 Ml Syrp 15 ML PO TID Nitroglycerin (Nitrostat) 0.4 Mg Tab 0.4 MG UT PRN, BTL Ondansetron Hcl (Zofran) 4 Mg Tab 4 MG PO Q6H PRN for Nausea, TAB Pantoprazole (Protonix) 40 Mg Tab 40 MG PO DAILY, TAB Potassium Chloride (K-Tabs) 10 Meq Tab 40 MEQ PO BIDM WITH AM AND EVENING MEALS Admission Information HPI (per Admitting provider): DATE OF ADMISSION: 02/06/2017 PRIMARY CARE PHYSICIAN: Dr. Garza. HISTORY OF PRESENT ILLNESS: History obtained from patient, family, and records. Patient is a fair historian. Questionable insight on medical conditions. Medical history significant for paroxysmal AFib, 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 as per records, hypertension, hyperlipidemia, COPD, hypertrophic cardiomyopathy status post surgery, nonischemic cardiomyopathy (EF 65-70%). cirrhosis secondary to nonalcoholic fatty liver disease, hx SSS sp PPM, hx bladder cancer as per records, DM2, insulin requiring, CARLITA, chronic renal insufficiency, (baseline creatinine of 2.9), chronic anemia ( baseline hemoglobin of 8-9) Recent confinement last month for hypertension, acute kidney injury, cirrhosis with ascites. Improved with medical management. As per note discharge note, palliative care hospice discussed with daughter. Patient's daughter preferred not pursue at that time, . Patient discharged to [facility]. Subsequently discharged to [facility]. As per note, the last week, the patient noted to have increasing lower extremity edema and abdominal distention. Patient unable to take a deep breath because of increasing abdominal distention , no unusual cough symptoms. No fever no chills. At the Emergency Room, the patient was given Lasix for ascites. MEDICAL HISTORY: As above, had outpatient [facility] cardiology visit a few days ago. As per note, significant lower extremity edema and abdominal distention after home diuretics scaled back. Lasix increased in dose. SURGICAL HISTORY: He has had pacemaker placement, heart surgery, urologic procedures, and myomectomy. HOME MEDICATIONS: Include lactulose, Toprol, Nitrostat, Zofran, K-Tabs, Protonix, Tylenol, Lasix, Pepcid, folic acid, NovoLog, Lantus. ALLERGIES: CODEINE AND PROPRANOLOL. FAMILY HISTORY: Hypertension. PERSONAL AND SOCIAL HISTORY: Nonsmoker, no chronic intake of alcoholic beverages. Currently, personal custodial resident. REVIEW OF SYSTEMS: As per HPI, all other ROS negative. PHYSICAL EXAMINATION: VITAL SIGNS: Blood pressure noted to be blood pressure 103/76, later 96, pulse rate 88, respiratory rate 20, temperature 36.8, sats 97 on room air. GENERAL: Noted to be slightly uncomfortable, no distress. SKIN: Pallor. HEENT: Pale palpebral conjunctivae, dry mucosa. NECK: No JVD. Supple. CHEST: Decreased effort. HEART: Regular rate and rhythm. ABDOMEN: Fluid wave, nontender. EXTREMITIES: Bilateral lower extremity edema. No tenderness NEUROLOGIC: No gross focality, except for intention tremors. LABORATORY DATA: Hemoglobin 8.5, hematocrit 37.2, white cell 3.7, platelets 80. Sodium noted to be 141, potassium 5, chloride 110, CO2 24, BUN 34, creatinine 2.7, glucose 112. IMAGING DATA: CT abdomen and pelvis showed moderate right pleural effusion and associated right basilar consolidation, possible atelectasis, cirrhosis with evidence of portal hypertension with moderate volume of abdominopelvic ascites, splenomegaly, diverticulosis, chronic bladder outlet obstruction, and cardiomegaly. Chest x-ray showed moderate right pleural effusion and right basilar consolidation, atelectasis. ASSESSMENT: 1. Decompensated cirrhosis secondary to non-alcoholic fatty liver disease 2. chronic renal insufficiency, creatinine at baseline 3. hypotension hx HTN blood pressure on the lower side since 09/2016 on review of records Seems to be new baseline for patient 4. DM2, insulin requiring well controlled as of recent hemoglobin A1c was 6.2 5. chronic anemia, hemoglobin at baseline hx 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 as per records 6. sick sinus syndrome status post pacemaker; 7. hx HOCM sp myomectomy. 8. COPD as per records Pulmo-status at baseline 10. hx bladder cancer PLAN: GMF Diuretic Rx Diagnostic and therapeutic paracentesis in the morning. GI consult RE decompensated cirrhosis May need Nephrology assistance regarding diuretic management Decrease home beta noman dose by half Basal insulin, ISS BG goal 140-180 PT OT eval (Patient current stay at personal custodial may not be appropriate for his needs.) Palliative goals of care were discussed with the patient and daughter. Not ready for now. Patient still willing to undergo procedures/necessary workup/management/ hospitalizations if necessary for exacerbations of chronic disease. DVT prophylaxis, SCDs RE thrombocytopenia DNR. Patient's daughter requesting updates from providers. Miss Rupinder Mensah at [phone]. Hospital Course 87 year old male with history of Paroxysmal A fib, DM, CKD, COPD, Cirrhosis presenting with increasing abdominal girth. 02/21 discharge back to [facility] today plan to keep on oral Vanco for C. Diff Lasix 120mg TID and Metolazone 5mg for the ascites daily weights will need lab work in one week (to check kidneys, liver, and Hgb) 02/20 can likely d/c back to facility with outpatient diuretic therapy as per nephrology monitor H/H and kidney function 02/19 plan to check an abdominal U/S to check for reaccumulation of fluid continue albumin/Lasix today - creatinine at 2.5 monitor this monitor H/H as his Hgb is 7.8, but stable 02/18 continue current medications today was given EPO yesterday, no more hematuria noted today will need to speak with nephrology regarding discharge medications will need intermittent paracentesis as outpatient 02/17 appreciate nephrology input Metolazone dose increased continue Albumin + Lasix patient's abdomen slightly distended, but soft, non-tender appreciate palliative care input - currently, patient would like paracentesis multiple times per week, rather than hospice. He is DNR. 02/16 spoke with patient's daughter about pt's condition he is now requiring at least twice weekly paracentesis due to fluid build-up spoke with them about options including hospice and palliative care - they are agreeable to speak with palliative care otherwise, their plan tentatively is to be discharged to the [facility] and return twice weekly for paracentesis 02/15 difficult to control his ascitic fluid from building up he has SHANE cirrhosis appreciate GI and nephrology input unfortunately, even after receiving paracentesis and his diuretics, he has built up again plan for paracentesis today (02/15) - removed 5L of fluid diuretics as per nephrology may need paracentesis twice weekly will consider palliative care/hospice - will need to speak with his daughter 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 - usually on lasix 80mg po daily transitioned to lasix IV + albumin BID day 5 diuresing more since Lasix increased 02/09: (+) increased abdominal girth repeat paracentesis ordered 02/10: s/p repeat Paracentesis, drained 3 L urine output decreasing started Albumin 4 doses, continued Lasix + albumin Midodrine PRN for hypotension 02/11: continue monitoring diuresis on Lasix IV + albumin BP stable 02/12: (+) oliguria but crea stable denies dyspnea Lasix + Albumin increased 02/13: Urine output increased continued Lasix + Alubmin q8h , Metolazone -- diuresing better on Lasix 80mg IV + Albumin q8h Midodrine added as patient's BP borderline appreciate Nephro SVC input - monitor Plt 50-60s no signs of bleeding - may need weekly paracentesis as outpatient CKD 4 - crea stable - management per #1 PSEUDOMONAS, PROTEUS UTI - no chills today, afebrile - ff up blood cultures, ascitic fluid cultures - changed Zosyn to Cefepime based on sensitivities patient has C diff, caution re: duration of antibiotics C DIFF COLITIS - On Vanco PO Day 11/28 diarrhea now intermittent, monitor MARGINAL BP - asymptomatic monitor - Decreased home beta noman dose by half Midodrine BID ordered DM2, insulin requiring well controlled as of recent hemoglobin A1c was 6.2 - continue Lantus and ISS Chronic anemia -- s/p 1 unit pRBC for Hg 6 -- Hg 7.1 will only transfuse if Hg < 7 due to liver cirrhosis, possible portal hypertension monitor hx 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 as per records -- will consult Hematology if levels decrease in trend sick sinus syndrome status post pacemaker hx HOCM sp myomectomy COPD as per records Pulmo-status at baseline DVT prophylaxis, SCDs RE thrombocytopenia DNR. Dispo pending eval and management of ascites, volume overload, CKD 4 in progress currently staying at [facility] Total time spent on discharge = 45 minutes This includes examination of the patient, discharge planning, medication reconciliation, and communication with other providers. Discharge Instructions Please follow-up with Dr. Garza on February 28 at 11:05AM * You will be on a high dose of Lasix as well as Metolazone * Will need daily weights * We will need weekly blood work to check kidneys, liver and hemoglobin levels
[2017-02-21 12:32] VITALS: BP 99/59; PULSE 72; TEMP 36.8; O2SAT 95
== END 2017-02-21 15:27 | disposition home or self-care (01) | DRG 433 ==
LOC: EDBD 19:01 → C.EDB 19:02 → C.4E 22:42 → ENRESERV 22:53
PROVIDERS: ADMIT Internal Medicine; ATTEND Internal Medicine
PROC: 0W9G3ZX Drainage of Peritoneal Cavity, Percutaneous Approach, Diagnostic (ICD-10-PCS; principal; 2017-02-07)
PROC: 0W9G3ZZ Drainage of Peritoneal Cavity, Percutaneous Approach (ICD-10-PCS; 2017-02-10)
PROC: 0W9G3ZZ Drainage of Peritoneal Cavity, Percutaneous Approach (ICD-10-PCS; 2017-02-13)
PROC: 0W9G3ZZ Drainage of Peritoneal Cavity, Percutaneous Approach (ICD-10-PCS; 2017-02-15)
DX: K74.60 Unspecified cirrhosis of liver (principal); R18.8 Other ascites; K76.6 Portal hypertension; A04.72 Enterocolitis due to Clostridium difficile, not specified as recurrent; N18.4 Chronic kidney disease, stage 4 (severe); N39.0 Urinary tract infection, site not specified; K75.81 Nonalcoholic steatohepatitis (NASH); B96.5 Pseudomonas (aeruginosa) (mallei) (pseudomallei) as the cause of diseases classified elsewhere; B96.4 Proteus (mirabilis) (morganii) as the cause of diseases classified elsewhere; K59.00 Constipation, unspecified; R34 Anuria and oliguria; I95.9 Hypotension, unspecified; E11.9 Type 2 diabetes mellitus without complications; D64.9 Anemia, unspecified; D46.9 Myelodysplastic syndrome, unspecified; J44.9 Chronic obstructive pulmonary disease, unspecified; I48.0 Paroxysmal atrial fibrillation; Z66 Do not resuscitate; Z95.0 Presence of cardiac pacemaker; Z86.79 Personal history of other diseases of the circulatory system; Z85.51 Personal history of malignant neoplasm of bladder; Z87.891 Personal history of nicotine dependence; Z79.4 Long term (current) use of insulin; Z79.899 Other long term (current) drug therapy; Z88.5 Allergy status to narcotic agent; Z88.8 Allergy status to other drugs, medicaments and biological substances; Z82.49 Family history of ischemic heart disease and other diseases of the circulatory system

== ENCOUNTER 2017-03-15 22:46 | Inpatient (IN) | payer OTHER ==
[~2017-03-15] VITALS: Ht 172.7 cm; Wt 101.5 kg
[~2017-03-15 22:46] MED LIST changes: -FLUT0.15 NAE; +FURO80TA63 PO; -INSDGIPEN SC; +INSDGIPEN SQ; +LACT10SO17 PO; -LCTS240 PO; -LSX80 PO; +METO25TA3 PO; +NVLG SQ; -NVLGIPEN SC; +ONDA4TAB46 PO; -POTA10CA28 PO; +POTA10TA PO; +PRMT25 PO; -TPRSR25 PO; +VNCS125 PO
--- NOTE | 2017-03-15 22:57 | EMERGENCY ROOM VISIT NOTE ---
History Report prepared by Li: Niki Ramey Under the Supervision of: Dr. Brent Ruiz M.D. First contact with patient: 22:49 Chief Complaint: ALTERED MENTAL STATUS Stated Complaint: AMS, NAUSEA, WEAKNESS History of Present Illness The patient is a 87 year old male who presents to the Emergency Room with complaints of an altered mental status today. Per nursing staff, the patient was having chest pain and generalized weakness. Limited HPI secondary to AMS. EMS was called out for patient with chest pain. Upon arrival, the patient was in no distress and he denied any pain. One of the people at his [facility] [place] [facility] noted to the EMS that he looked ashen earlier. There is no further information available. Source of History: patient, nursing staff History Limited By: AMS Onset: today Position: other (global) Quality: other (altered mental status ) Associated Symptoms: + chest pain, + weakness (generalized) Review of Systems Unable to obtain ROS due to demented patient. 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), type 2 with renal complications (6) Dyslipidemia (7) History of ankle fracture (8) History of bladder cancer (9) Hypertrophic cardiomyopathy (10) Myelodysplastic syndrome (11) Paroxysmal atrial fibrillation (12) Sinoatrial node dysfunction (13) Sleep apnea, obstructive (14) Thrombocytopenia Surgical Problems: (1) Status post cardiac pacemaker procedure (2) Status post myomectomy Family History FHx: heart disease Social History Smoking Status: Former Smoker Alcohol Use: none Drug Use: none Marital Status: Housing Status: assisted living Occupation Status: unemployed Current/Historical Medications Scheduled Folic Acid (Folic Acid), 1 MG PO DAILY Furosemide (Lasix), 120 MG PO TID Insulin Aspart (Novolog), SQ ACHS Insulin Glargine (Lantus Solostar), 10 UNITS SQ HS Metolazone (Metolazone), 5 MG PO BID Metoprolol Succ (Toprol Xl) (Toprol-Xl), 12.5 MG PO DAILY Pantoprazole (Protonix), 40 MG PO DAILY Potassium Chloride (Klor-Con Sprinkle), 40 MEQ PO BIDM Scheduled PRN Acetaminophen Tab (Tylenol), 650 MG PO Q4 PRN for Fever Lactulose (Chronulac), 15 ML PO TID PRN for Constipation Nitroglycerin (Nitrostat), 0.4 MG UT UD PRN for Chest Pain Ondansetron Hcl (Zofran), 4 MG PO Q6H PRN for Nausea Allergies Coded Allergies: Propranolol (Verified Allergy, Unknown, 03/15/17) Codeine (Verified Adverse Reaction, Mild, NOTED "DOESNT TOLERATE WELL" , 03/15/17) Physical Exam Vital Signs Date Time Temp Pulse Resp B/P (MAP) Pulse Ox O2 Delivery O2 Flow Rate FiO2 03/16/17 01:55 100/64 03/16/17 01:38 85 17 97 03/16/17 01:33 99/50 03/16/17 01:21 92 17 98 03/16/17 01:01 95/67 03/16/17 00:51 85 21 96 03/16/17 00:31 103/61 03/16/17 00:21 87 16 99 03/16/17 00:16 85 20 03/16/17 00:02 94/61 03/15/17 23:46 90 17 99 03/15/17 23:16 90 16 97 03/15/17 23:04 86 03/15/17 22:58 36.8 90 17 109/64 96 Room Air 03/15/17 22:50 109/64 Physical Exam GENERAL: Patient is pleasantly demented/confused, smiling, falling asleep during exam, and in no acute distress. HEENT: No acute trauma, normocephalic atraumatic, mucous membranes moist, no nasal congestion, no scleral icterus. NECK: No stridor, no adenopathy, no meningismus, trachea is midline. LUNGS: No dyspnea. Clear to auscultation and equal bilaterally. No wheeze, no rhonchi. HEART: Regular rate and irregular rhythm. No murmurs, rubs, gallops appreciated. ABDOMEN: Soft, nontender, bowel sounds positive, no masses appreciated, no peritonitis. Mild distension. BACK: No midline tenderness, no CVA tenderness EXTREMITIES: Normal motion all extremities, no cyanosis. 4+ edema bilateral legs. NEUROLOGIC: Alert and oriented, no acute motor or sensory deficits, no focal weakness, cranial nerves grossly intact. SKIN: Mild jaundice, telangiectasia bilateral upper chest. Medical Decision & Procedures ER Provider Diagnostic Interpretation: Radiology results and stated below per my review and radiologist interpretation: X-ray 1 view: Mild congestive findings. Enlarged heart. No significant effusion. No pneumonia appreciated. Laboratory Results 03/15/17 22:30 Red Blood Count 3.34, Mean Corpuscular Volume 82.6, Mean Corpuscular Hemoglobin 26.6, Mean Corpuscular Hemoglobin Concent 32.2, Mean Platelet Volume 10.0, Neutrophils (%) (Auto) 85.7, Lymphocytes (%) (Auto) 7.0, Monocytes (%) (Auto) 6.5, Eosinophils (%) (Auto) 0.4, Basophils (%) (Auto) 0.1, Neutrophils # (Auto) 6.33, Lymphocytes # (Auto) 0.52, Monocytes # (Auto) 0.48, Eosinophils # (Auto) 0.03, Basophils # (Auto) 0.01 03/15/17 22:30 Test 03/15/17 22:30 03/15/17 23:29 03/16/17 00:18 03/16/17 01:18 White Blood Count 7.39 K/uL (4.8-10.8) Red Blood Count 3.34 M/uL (4.7-6.1) Hemoglobin 8.9 g/dL (14.0-18.0) Hematocrit 27.6 % (42-52) Mean Corpuscular Volume 82.6 fL (80-100) Mean Corpuscular Hemoglobin 26.6 pg (25-34) Mean Corpuscular Hemoglobin Concent 32.2 g/dl (32-36) Platelet Count 90 K/uL (130-400) Mean Platelet Volume 10.0 fL (7.4-10.4) Neutrophils (%) (Auto) 85.7 % Lymphocytes (%) (Auto) 7.0 % Monocytes (%) (Auto) 6.5 % Eosinophils (%) (Auto) 0.4 % Basophils (%) (Auto) 0.1 % Neutrophils # (Auto) 6.33 K/uL (1.4-6.5) Lymphocytes # (Auto) 0.52 K/uL (1.2-3.4) Monocytes # (Auto) 0.48 K/uL (0.11-0.59) Eosinophils # (Auto) 0.03 K/uL (0-0.5) Basophils # (Auto) 0.01 K/uL (0-0.2) RDW Standard Deviation 57.8 fL (36.4-46.3) RDW Coefficient of Variation 19.0 % (11.5-14.5) Immature Granulocyte % (Auto) 0.3 % Immature Granulocyte # (Auto) 0.02 K/uL (0.00-0.02) Polychromasia 1+ Hypochromasia PRESENT Ovalocytes 1+ Prothrombin Time 13.4 SECONDS (9.0-12.0) Prothromb Time International Ratio 1.2 (0.9-1.1) Activated Partial Thromboplast Time 29.8 SECONDS (21.0-31.0) Partial Thromboplastin Ratio 1.1 Anion Gap 13.0 mmol/L (3-11) Est Creatinine Clear Calc Drug Dose 14.7 ml/min Estimated GFR () 14.3 Estimated GFR (Non- 12.3 BUN/Creatinine Ratio 21.2 (10-20) Calcium Level 8.2 mg/dl (8.5-10.1) Magnesium Level 2.2 mg/dl (1.8-2.4) Total Bilirubin 0.6 mg/dl (0.2-1) Direct Bilirubin 0.2 mg/dl (0-0.2) Aspartate Amino Transf (AST/SGOT) 37 U/L (15-37) Alanine Aminotransferase (ALT/SGPT) 22 U/L (12-78) Alkaline Phosphatase 78 U/L (45-117) Total Protein 7.1 gm/dl (6.4-8.2) Albumin 2.9 gm/dl (3.4-5.0) Ammonia 136.3 umol/L (11-32) Urine Color YELLOW Urine Appearance CLEAR (CLEAR) Urine pH 5.0 (4.5-7.5) Urine Specific [place] 1.014 (1.000-1.030) Urine Protein NEG (NEG) Urine Glucose (UA) NEG (NEG) Urine Ketones NEG (NEG) Urine Occult Blood NEG (NEG) Urine Nitrite NEG (NEG) Urine Bilirubin NEG (NEG) Urine Urobilinogen NEG (NEG) Urine Leukocyte Esterase NEG (NEG) Urine WBC (Auto) 0 /hpf (0-5) Urine RBC (Auto) 0-4 /hpf (0-4) Urine Hyaline Casts (Auto) 1-5 /lpf (0-5) Urine Epithelial Cells (Auto) 0-5 /lpf (0-5) Urine Bacteria (Auto) NEG (NEG) Lactic Acid Level 2.2 mmol/L (0.4-2.0) Troponin I 0.048 ng/ml (0-0.045) Laboratory results as reviewed by me. Medications Administered Medications (Trade) Dose Ordered Sig/Gin Route Start Time Stop Time Status Last Admin Dose Admin Potassium Chloride/Sodium Chloride 1,000 ml @ 80 mls/hr [id number] ONCE IV 03/16/17 00:45 03/16/17 13:14 03/16/17 01:01 80 MLS/HR ECG Indication: chest pain Rate (beats per minute): 92 Rhythm: atrial fibrillation (with ventricular paced complexes) Findings: no acute ischemic change, prolonged QT Change: no significant change (from previous ) ED Course 2255: The patient was evaluated in room A2. A complete history and physical exam was performed. 2300: I spoke with the patient's son who notes that his sister and power of insurance defense attorney are on their way. He agrees on holding off on further testing until they arrive. The son was told by prison that the patient's blood pressure was low. 2315: I spoke with the patient's daughter. She notes that over the last 3 weeks the patient has been getting weaker and confused. She admits that she doesn't think that a personal [place] [facility] facility is the best location for him right now. We discussed and agreed on not doing a CT scan of the head, but do agree to do labs and a chest X-ray. 0019: Discussed the patient's case with Dr. Quevedo. The patient will be evaluated for further treatment and disposition. 0030: Upon reevaluation, the patient is resting. Discussed results and treatment plan with the patient and his family. He and his family verbalized understanding and agreement with the treatment plan. The patient will be evaluated for further management. Medical Decision Differential: Toxicological, Infectious, Stroke, SAH, Trauma, Electrolyte Abnormality, Hypoglycemia, Alcohol Intoxication, Drug Intoxication, Cardiac Abnormality, Sepsis, Meningitis/Encephalitis, Trauma, Excited Delirium, Serotonin Syndrome, Psychiatric, amongst other pathologies entertained. 87 yr old male with worsening confusion in the setting of known cirrhosis arrives from [facility] [place] [facility] after vague story that may or may not have been... hypotension, chest pain, ashen appearance of which none reported by EMS nor does he have them currently. He is however confused and easily falls asleep while talking to him. Consistent with hepatic encephalopathy and he has newly elevated Ammonia to confirm this. In addition Renal failure has worsened , likely with increased dosing of Lasix. Had small amount of emesis here but no further issues. Discussed at length plan with daughter and we will get hospitalist in for further evaluation, treatment. Medication Reconcilliation Current Medication List: was personally reviewed by me Blood Pressure Screening Patient's blood pressure: Low blood pressure Consults Time Called: [phone] Consulting Physician: Dr. Herrera Returned Call: [phone] Discussed the patient's case. The patient will be evaluated for further treatment and disposition. Impression Primary Impression: Hepatic encephalopathy Additional Impressions: Renal failure Altered mental status Scribe Attestation The scribe's documentation has been prepared under my direction and personally reviewed by me in its entirety. I confirm that the note above accurately reflects all work, treatment, procedures, and medical decision making performed by me. Departure Information Dispostion Being Evaluated By Hospitalist Referrals Anastacio Garza M.D. (PCP) Patient Instructions My [facility] Problem Qualifiers
[2017-03-15 23:29] LABS: HEMATOCRIT 27.6 % (42-52); MEAN CELL VOLUME 82.6 fL (80-100); MEAN CORPUSCULAR HEMOGLOBIN 26.6 pg (25-34); MEAN CORPUSCULAR HGB CONC 32.2 g/dl (32-36); RED BLOOD COUNT 3.34 M/uL (4.7-6.1); WHITE BLOOD COUNT 7.39 K/uL (4.8-10.8)
[2017-03-15 23:38] LABS: PLATELET COUNT 90 K/uL (130-400)
[2017-03-15 23:42] LABS: INR 1.2 (0.9-1.1); PARTIAL THROMBOPLASTIN RATIO 1.1; PROTHROMBIN TIME (PATIENT) 13.4 SECONDS (9.0-12.0)
[2017-03-15] MEDS ORDERED: POTA1CAP53 PO (23:42)
[2017-03-15 23:48] LABS: BUN/CREATININE RATIO 21.2 (10-20); CALCIUM 8.2 mg/dl (8.5-10.1); CREATININE 4.07 mg/dl (0.60-1.40)
[2017-03-15 23:50] LABS: BASO % 0.1 %; BASO ABS # 0.01 K/uL (0-0.2); COMPLETE YES; EOS % 0.4 %; HYPOCHROMIA PRESENT; IG% 0.3 %; LYMPH ABS # 0.52 K/uL (1.2-3.4); MONO % 6.5 %; NEUT % 85.7 %; OVALOCYTES 1+; POLYCHROMASIA 1+
[2017-03-16] VITALS (7 sets, daily range): BP systolic 91–103; BP diastolic 58–66; PULSE 81–94; TEMP 36.5–37; O2SAT 91–100; Ht 172.7 cm; Wt 101.5 kg
[2017-03-16 00:32] LABS: URINE APPEARANCE CLEAR (CLEAR); URINE BILIRUBIN NEG (NEG); URINE COLOR YELLOW; URINE EPITHELIAL CELL AUTO 0-5 /lpf (0-5); URINE NITRITE NEG (NEG); URINE SPECIFIC GRAVITY 1.014 (1.000-1.030); UROBILINOGEN NEG (NEG); ZZURINE CULT IF INDIC CATH NO
[2017-03-16 00:34] LABS: MANUAL MICROSCOPIC REQUIRED? NO; REVIEW REQ? NO
[2017-03-16] MEDS ORDERED: POTASSIUM CHLORIDE 10 MEQ TABCR PO STA (00:35)
[2017-03-16] MEDS ORDERED: NSS + 20MEQ KCL 1000ML 1,000 ML IV ONE (00:45)
[2017-03-16 00:49] LABS: MAGNESIUM 2.2 mg/dl (1.8-2.4)
[2017-03-16] MEDS ORDERED: LACTULOSE 200GM/700ML WTR ENEMA PR SCH (02:45)
[2017-03-16] MEDS ORDERED: DEXTROSE 50% 50 ML SYR IV PRN (02:45)
[2017-03-16] MEDS ORDERED: PROMETHAZINE HCL INJ 12.5 MG in SODIUM CHLORIDE 0.9% 50ML 50 ML IV PRN (02:45)
[2017-03-16] MEDS ORDERED: GLUCAGON FOR INJ 1 MG VIAL SQ PRN (02:45)
[2017-03-16] MEDS ORDERED: TRAMADOL HCL 50 MG TAB PO PRN (02:45)
[2017-03-16] MEDS ORDERED: ACETAMINOPHEN 325 MG TAB PO PRN (02:45)
[2017-03-16] MEDS ORDERED: HYDROmorphone INJ 0.5 MG/0.5 ML SYR IV PRN (02:45)
[2017-03-16] MEDS ORDERED: GLUCOSE 10 TABS/TUBE PO PRN (02:45)
[2017-03-16] MEDS ORDERED: GLUCOSE 40% GEL 15 GM TUBE PO PRN (02:45)
[2017-03-16] MEDS ORDERED: LACTULOSE SYRUP 200 GM, WATER, STERILE IRRIG 700 ML, BARCODE IDENTIFIER 1 EA PR ONE ×2 (03:15)
[2017-03-16] MEDS: POTASSIUM CHLR 10 MEQ / WTR 10 MEQ in PREMIXED WATER 100 ML IV SCH ×5 (04:10→09:41)
[2017-03-16] MEDS: ALBUMIN HUMAN 25% 12.5 GM/50 ML VIAL IV SCH ×4 (05:24→20:22)
[2017-03-16] MEDS ORDERED: INFLUENZA ADMINISTRATION CHARGE ONE (06:30)
[2017-03-16] MEDS ORDERED: INFLUENZA VACCINE HIGH DOSE 65+ 0.5 ML SYR IM. ONE (06:30)
--- NOTE | 2017-03-16 07:02 | DIAGNOSTIC IMAGING REPORT ---
SINGLE VIEW CHEST CLINICAL HISTORY: Change in mental status. FINDINGS: An AP, portable, upright chest radiograph is compared to study dated 02/06/2017. The examination is degraded by portable technique, motion artifact, and patient rotation. A 2-lead cardiac pacemaker is unchanged in position. The patient is status post midline sternotomy. The heart is enlarged and there is atherosclerotic calcification of the thoracic aorta. There is pulmonary vascular congestion. There are layering pleural effusions with bibasilar consolidation. No pneumothorax is seen. The skeletal structures are osteopenic. The bony thorax is grossly intact. IMPRESSION: 1. Cardiomegaly and cardiac pacemaker with evidence of congestive failure. 2. There are layering pleural effusions with bibasilar consolidation. This likely represents atelectasis. Clinical correlation will be required Electronically signed by: Khoa Castro M.D. 03/16/2017 7:01 AM Dictated Date/Time: 03/16/2017 7:00 AM
--- NOTE | 2017-03-16 07:17 | HISTORY & PHYSICAL EXAMINATION ---
DATE OF ADMISSION: 03/16/2017 PRIMARY CARE DOCTOR: Dr. Garza. CHIEF COMPLAINT: Altered mental status per records. HISTORY OF PRESENT ILLNESS: History obtained from the patient's daughter and records. Unable to obtain history from the patient secondary to obtunded state. Medical history significant for cirrhosis secondary to NAFLD, SSS sp PPM, 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 as per records, hypertension, hyperlipidemia; history of HOCM status post myomectomy, nonischemic cardiomyopathy, EF 65%-70%, COPD, DM2, insulin requiring; sleep apnea; chronic renal insufficiency (baseline creatinine of 2.9), chronic anemia (baseline hemoglobin 8 to 9). bladder cancer as per records. Recent confinement from 02/06/2017 through February 2017 for cirrhosis, ascites sp paracentesis. Patient also noted to have C. diff. Discharged on vancomycin. Patient seen by Nephrology for volume overload, Discharged on home diuretics and midodrine course. During confinement, Palliative Care consulted in light of recurrent admissions related to liver disease this year. As per note, the patient and daughter aware that disease is incurable, but the patient still willing to undergo procedures, confinement if necessary to manage exacerbation of chronic liver disease. Patient had a followup with PCP about 2 weeks ago. As per last outpatient note, the patient does not want transition at that time to hospice. PCP concerned about the patient's stay at [facility] being inadequate for patient's comorbidities/functionality. Outpx creatinine done during PCP visit was noted to be at 4.7. Unclear if patient's providers aware of creatinine bump. Yesterday, the patient noted to be sleepy, question of chest pain. At the Emergency Room, noted to be nauseous. w subsequent emesis. No complaints of abdominal pain as per daughter. Patient belly distention actually better as per daughter. MEDICAL HISTORY: As above. SURGICAL HISTORY: Pacemaker placement, heart surgery, urologic procedure, and myomectomy. HOME MEDICATIONS: Tylenol, folic acid, NovoLog, Lantus, Chronulac, Nitrostat, Zofran, Protonix, and Klor-Con. ALLERGIES: ALLERGIC TO CODEINE AND PROPRANOLOL. FAMILY HISTORY: Heart disease. PERSONAL AND SOCIAL HISTORY: Past tobacco abuse. No chronic intake of alcoholic beverage. Worked as [employer] in his younger years. Currently, personal senior living resident. REVIEW OF SYSTEMS: Could not be obtained. PHYSICAL EXAMINATION: VITAL SIGNS: Blood pressure was noted to be 99/50, pulse rate 90, RR 18 T 37 O2 sats 98 on room air. GENERAL: Noted to be obtunded. No respiratory distress. SKIN: Pallor, cool. HEENT: Pale palpebral conjunctivae. No ptosis. Dry buccal mucosa. NECK: Short, supple. CHEST: Decreased effort. CV: Regular rate and rhythm palpable LE pulses. ABDOMEN: distention, nontender. EXTREMITIES: Minimal LE edema. No tenderness. No gross deformities NE : obtunded. No facial asymmetry. Gait and stance not assessed. LABORATORY DATA: Hemoglobin was noted to be 8.9, hematocrit 27.6, platelets 90. Sodium noted to be 137, potassium 3, chloride 97, CO2 noted to be 28, BUN 86, creatinine 4.07. Glucose was noted to be 128. Ammonia was noted to be 136. Troponin 0.047. IMAGING STUDIES: Chest x-ray, as per my interpretation, atelectasis, cardiomegaly, minimal congestion pleural effusion. EKG, as per my interpretation, 90, AFib with a shower PVCs, left bundle branch block. UA no WBC ASSESSMENT: 1. Hepatic encephalopathy cirrhosis secondary to nonalcoholic fatty liver disease possibly precipitated by overdiuresis ARF on CRI 2. abdominal distention Better than baseline as per daughter No tenderness 3. hypertension, blood pressure on the lower side. 4. DM2, insulin requiring, well controlled, as of recent HgA1c. 5. SSS sp PPM Px currently in atrial fibrillation Not on anticoagulation because of thrombocytopenia 6. HOCM sp myomectomy 7. bladder cancer as per records 8. myelodysplasia as per records 9. hypokalemia secondary to emesis, home insulin, diuretic Rx. 10. Past tobacco abuse PLAN: GMF Facilitate lactulose - enema for now until patient more awake to swallow syrup abdominal ultrasound ro ascites, may need dx/tx paracentesis if significant GI consult RE hepatic encephalopathy Follow renal function response to gentle IV hydration w/ note of some congestion on CXR, IV albumin. Hold home diuretics for now. Nephrology consult. ARF Replace potassium. Resume basal insulin once the patient more awake to eat ISS BG goal 140-180. DVT prophylaxis, SCDs RE thrombocytopenia. DNR as per the patient's daughter/POA, Miss Rupinder Mensah. (Contact numbers : [phone]) As per daughter, px family may consider comfort measures if no response to medical management in the next 48 hours. MTDD
--- NOTE | 2017-03-16 07:51 | DIAGNOSTIC IMAGING REPORT ---
ULTRASOUND ASCITES CHECK CLINICAL HISTORY: Abdominal distention. Nausea. COMPARISON STUDY: Abdominal CT dated 02/06/2017. FINDINGS: Real-time grayscale sonography of all 4 quadrants of the abdomen is performed. There is a moderate to large volume of abdominal ascites. This appears minimally complex. IMPRESSION: Moderate to large volume of abdominal ascites. Electronically signed by: Khoa Castro M.D. 03/16/2017 7:50 AM Dictated Date/Time: 03/16/2017 7:49 AM
[2017-03-16] MEDS: METOPROLOL SUCC 25MG EXT REL TAB PO SCH (08:00)
[2017-03-16] MEDS ORDERED: PANTOprazole SOD 40 MG TAB PO SCH (08:00)
--- NOTE | 2017-03-16 08:06 | Gastrointestinal Consultation ---
Gastrointestinal Consultation Date of Consultation: Mar 16, 2017 Attending Physician: Delfino Consulting Physician: Grupo Reason for Consultation: cirrhosis, hepatic encephalopathy History of Present Illness Patient is a 87 year old male with CKD, cirrhosis and others listed below who presented to the ED due to mental status changes. Pt seen and evaluated, chart reviewed. No family at bedside. Pt is providing history, which appears accurate. He tells me he stopped his lactulose about 2-3 weeks ago due to loose stools, however, loose stool still continued and are still present. He is having 4+ loose stools daily, he is unsure if there is any blood in stools. He reports abdominal distention, but not abdominal pain or discomfort. Of note, he was admitted and treated for c.diff on 02/07/17 with a course of vancomycin. He in unsure if his symptoms changed on therapy. I asked Mr. Floyd if he is having any discomfort or pain today, he tells me he is not having any pain and is quite comfortable. He is answering questions appropriately, and is alert to person and location, not time. Of note he had a liver biopsy in 2003 for elevated LFTs, with evidence of significant portal and periportal fibrosis with ongoing hepatocyte injury - unknown source. through review of records, does not appear there was any follow up after this biopsy. Chest XR with evidence of CHF. Decompensations - Ascites: yes - Varices: unknown - Hepatic encephalopathy: yes Screenings - Varices: due - HCC screening: UTD - Immunization status: unknown RUQ US 03/16/17: Moderate to large volume of abdominal ascites. Chest XR 03/15/17: Cardiomegaly and cardiac pacemaker with evidence of congestive failure. There are layering pleural effusions with bibasilar consolidation. This likely represents atelectasis. Clinical correlation will be required Past Medical/Surgical History Medical Problems: (1) Acute on chronic renal failure Status: Acute (2) MAGEN (acute kidney injury) Status: Acute (3) Altered mental status Status: Acute (4) Anasarca Status: Acute (5) Anasarca Status: Acute (6) Bilateral leg edema Status: Acute (7) CHF (congestive heart failure) Status: Acute (8) CHF (congestive heart failure) Status: Acute (9) Dehydration Status: Acute (10) Dyspnea on exertion Status: Acute (11) Elevated lactic acid level Status: Acute (12) Elevated troponin Status: Acute (13) Hepatic encephalopathy Status: Acute (14) Hypotension Status: Acute (15) Pulmonary edema Status: Acute (16) Renal failure Status: Acute (17) Right heart failure Status: Acute Past Medical History: cirrhosis, depression, CKD, HTN, GERD, sleep apnea, bladder CA, 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, COPD Past Surgical History: unspecified bladder surgery, pacer Family History FHx: heart disease Social History Smoking Status: Former Smoker Alcohol Use: none Drug Use: none Marital Status: Housing Status: assisted living Occupation Status: unemployed Allergies Coded Allergies: Propranolol (Verified Allergy, Unknown, 03/15/17) Codeine (Verified Adverse Reaction, Mild, NOTED "DOESNT TOLERATE WELL" , 03/15/17) Current Medications Home Meds and Scripts Medications Dose Route/Sig Max Daily Dose Days Date Category Dose Instructions Klor-Con Sprinkle (Potassium Chloride) 10 Meq Cap 40 Meq PO BIDM 03/15/17 Reported Metolazone 5 Mg Tab 5 Mg PO BID 30 02/21/17 Rx Toprol-Xl (Metoprolol Succinate) 25 Mg Tabcr 12.5 Mg PO DAILY 30 02/21/17 Rx Lasix (Furosemide) 80 Mg Tab 120 Mg PO TID 30 02/21/17 Rx Zofran (Ondansetron HCl) 4 Mg Tab 4 Mg PO Q6H PRN 02/06/17 Reported Lantus Solostar (Insulin Glargine) 100 Unit/Ml Inj 10 Units SQ HS 02/06/17 Reported Novolog (Insulin Aspart) 100 Units/Ml Inj SQ ACHS 02/06/17 Reported SLIDING SCALE 1 UNIT FOR EVERY 20 MG/DL INCREASE IN GLUCOSE ABOVE 150 Chronulac (Lactulose) 10 Gm/15 Ml Syrp 15 Ml PO TID PRN 02/06/17 Reported Protonix (Pantoprazole Sodium) 40 Mg Tab 40 Mg PO DAILY 09/01/16 Reported Tylenol (Acetaminophen) 325 Mg Tab 650 Mg PO Q4 PRN 08/26/13 Reported NOT TO EXCEED 3000MG APAP/24HR Nitrostat (Nitroglycerin) 0.4 Mg Tab 0.4 Mg UT UD PRN 08/26/13 Reported Folic Acid 1 Mg Tab 1 Mg PO DAILY 08/26/13 Reported Review of Systems Constitutional: No fever, No chills Respiratory: No cough, No shortness of breath Cardiac: No chest pain, No edema Abdomen: + diarrhea, No pain, No constipation, No GI bleeding Physical Exam Date Time Temp Pulse Resp B/P (MAP) Pulse Ox O2 Delivery O2 Flow Rate FiO2 03/16/17 07:37 36.5 87 18 95/61 (72) 100 Room Air 03/16/17 04:34 36.6 94 18 93/60 Room Air 03/16/17 03:21 36.6 94 18 93/60 (71) 98 Room Air 03/16/17 01:55 100/64 03/16/17 01:38 85 17 97 03/16/17 01:33 99/50 03/16/17 01:21 92 17 98 03/16/17 01:01 95/67 03/16/17 00:51 85 21 96 03/16/17 00:31 103/61 03/16/17 00:21 87 16 99 03/16/17 00:16 85 20 03/16/17 00:02 94/61 03/15/17 23:46 90 17 99 03/15/17 23:16 90 16 97 03/15/17 23:04 86 03/15/17 22:58 36.8 90 17 109/64 96 Room Air 03/15/17 22:50 109/64 General Appearance: no apparent distress Eyes: PERRL ENT: hearing grossly normal Neck: supple Respiratory/Chest: lungs clear, normal breath sounds Cardiovascular: regular rate, rhythm Abdomen: normal bowel sounds, soft, no organomegaly, no pulsatile mass, + pertinent finding (non-tense ascites) Neurologic/Psych: alert, normal mood/affect, + pertinent finding (oriented to person and location, not time) Skin: normal color, warm/dry Laboratory Results Last 24 Hours Test 03/15/17 22:30 03/15/17 23:29 03/16/17 00:18 03/16/17 01:18 White Blood Count 7.39 K/uL Red Blood Count 3.34 M/uL Hemoglobin 8.9 g/dL Hematocrit 27.6 % Mean Corpuscular Volume 82.6 fL Mean Corpuscular Hemoglobin 26.6 pg Mean Corpuscular Hemoglobin Concent 32.2 g/dl Platelet Count 90 K/uL Mean Platelet Volume 10.0 fL Neutrophils (%) (Auto) 85.7 % Lymphocytes (%) (Auto) 7.0 % Monocytes (%) (Auto) 6.5 % Eosinophils (%) (Auto) 0.4 % Basophils (%) (Auto) 0.1 % Neutrophils # (Auto) 6.33 K/uL Lymphocytes # (Auto) 0.52 K/uL Monocytes # (Auto) 0.48 K/uL Eosinophils # (Auto) 0.03 K/uL Basophils # (Auto) 0.01 K/uL RDW Standard Deviation 57.8 fL RDW Coefficient of Variation 19.0 % Immature Granulocyte % (Auto) 0.3 % Immature Granulocyte # (Auto) 0.02 K/uL Polychromasia 1+ Hypochromasia PRESENT Ovalocytes 1+ Prothrombin Time 13.4 SECONDS Prothromb Time International Ratio 1.2 Activated Partial Thromboplast Time 29.8 SECONDS Partial Thromboplastin Ratio 1.1 Sodium Level 138 mmol/L Potassium Level 3.0 mmol/L Chloride Level 97 mmol/L Carbon Dioxide Level 28 mmol/L Anion Gap 13.0 mmol/L Blood Urea Nitrogen 86 mg/dl Creatinine 4.07 mg/dl Est Creatinine Clear Calc Drug Dose 14.7 ml/min Estimated GFR () 14.3 Estimated GFR (Non- 12.3 BUN/Creatinine Ratio 21.2 Random Glucose 128 mg/dl Calcium Level 8.2 mg/dl Magnesium Level 2.2 mg/dl Total Bilirubin 0.6 mg/dl Direct Bilirubin 0.2 mg/dl Aspartate Amino Transf (AST/SGOT) 37 U/L Alanine Aminotransferase (ALT/SGPT) 22 U/L Alkaline Phosphatase 78 U/L Troponin I 0.047 ng/ml 0.048 ng/ml Total Protein 7.1 gm/dl Albumin 2.9 gm/dl Ammonia 136.3 umol/L Urine Color YELLOW Urine Appearance CLEAR Urine pH 5.0 Urine Specific [place] 1.014 Urine Protein NEG Urine Glucose (UA) NEG Urine Ketones NEG Urine Occult Blood NEG Urine Nitrite NEG Urine Bilirubin NEG Urine Urobilinogen NEG Urine Leukocyte Esterase NEG Urine WBC (Auto) 0 /hpf Urine RBC (Auto) 0-4 /hpf Urine Hyaline Casts (Auto) 1-5 /lpf Urine Epithelial Cells (Auto) 0-5 /lpf Urine Bacteria (Auto) NEG Lactic Acid Level 2.2 mmol/L Test 03/16/17 04:47 03/16/17 08:00 Impression Patient is a 87 year old male w/ cirrhosis decompensated by gross ascites and hepatic encephalopathy, unknown if he has esophageal varices who presented to the ED acute mental status changes. NH3 was elevated, electrolyte imbalances with a bump in kidney function BUN 86 creatinine 4, up from his baseline 32/ 2.5. Appears he was discharged on lasix 40 mg BID. MAGEN or ARF, will rule out HRS with random urine NA Plan - History of C.Diff, still having diarrhea, not on lactulose as outpatient - stool culture - stool for c.diff - Cirrhosis - can arrange diagnostic/therapeutic paracentesis if pt is agreeable - would hold PO lactulose due to kidney function - start Xifaxan 550 BID - OK to use lactulose enemas if needed - BUN/PIECE MAKER bump - urine NA - hold all diuretics - low NA diet, less grimes 2G daily - daily weight - Start albumin 25G TID - consult nephrology - Electrolyte correction per primary service - GI to follow, please call with any questions or concerns I saw and evaluated the patient. He does have a history of cirrhosis and was previously discharged on fairly high doses of diuretic therapy for his recurrent ascites. He also has a history of hepatic encephalopathy and appears that he has been on lactulose as an outpatient in the past. Given his new onset renal insufficiency I would suggest we temporarily hold diuretic therapy. I would also suggest a transition to rifaximin 550 mg twice daily and lactulose 1 time daily as needed for rescue. Once his renal failure has improved we could consider reintroduction of diuretics at a lower dose and previously discharged on. Physical examination No obvious distress, no scleral icterus noted, patient appears appropriate this afternoon Impression: Patient with a history of cirrhosis complicated by ascites, hepatic encephalopathy and renal insufficiency. Recommendations Low-sodium diet Rifaximin 550 mg twice daily Lactulose 1 time daily as needed for rescue of worsening memory function Continue to monitor renal function appreciate nephrology input
[2017-03-16] MEDS: INSULIN ASPART 100 UNITS/ML 3 ML PEN SC SCH ×4 (08:14→22:15)
[2017-03-16 08:19] LABS: HEMATOCRIT 23.7 % (42-52); MEAN CELL VOLUME 82.9 fL (80-100); MEAN CORPUSCULAR HEMOGLOBIN 26.2 pg (25-34); MEAN CORPUSCULAR HGB CONC 31.6 g/dl (32-36); RED BLOOD COUNT 2.86 M/uL (4.7-6.1); WHITE BLOOD COUNT 3.82 K/uL (4.8-10.8)
[2017-03-16 08:55] LABS: BUN/CREATININE RATIO 22.9 (10-20); CALCIUM 8.6 mg/dl (8.5-10.1); CREATININE 3.74 mg/dl (0.60-1.40); POTASSIUM 3.6 mmol/L (3.5-5.1)
[2017-03-16 09:14] LABS: MEAN PLATELET VOLUME 8.9 fL (7.4-10.4); PLATELET COUNT 61 K/uL (130-400)
[2017-03-16 09:17] LABS: ANISOCYTOSIS PRESENT; COMPLETE YES; HYPERSEGMENTED POLYS 1+; HYPOCHROMIA PRESENT; LYMPH % 7.6 %; LYMPH ABS # 0.29 K/uL (1.2-3.4); MONO % 5.5 %; NEUT % 86.9 %; OVALOCYTES 1+
[2017-03-16] MEDS: ONDANSETRON INJ 2 MG/ML 2 ML VIAL IV PRN ×3 (10:06→19:58)
--- NOTE | 2017-03-16 11:14 | Progress Note ---
Subjective Date of Service: Mar 16, 2017. Subjective Pt evaluation today including: conversation w/ patient, physical exam, lab review, review of studies, review of inpatient medication list Saw/examined the patient in room 456 He states that he was in his usual state of health prior to last evening - after dinner he just was not himself. Could not recall most things, but states he just wasn't with it. Stopped taking lactulose due to diarrhea. Fluid build-up continued in the abdomen. Problem List Medical Problems: (1) Acute on chronic renal failure Status: Acute (2) MAGEN (acute kidney injury) Status: Acute (3) Altered mental status Status: Acute (4) Anasarca Status: Acute (5) Anasarca Status: Acute (6) Bilateral leg edema Status: Acute (7) CHF (congestive heart failure) Status: Acute (8) CHF (congestive heart failure) Status: Acute (9) Dehydration Status: Acute (10) Dyspnea on exertion Status: Acute (11) Elevated lactic acid level Status: Acute (12) Elevated troponin Status: Acute (13) Hepatic encephalopathy Status: Acute (14) Hypotension Status: Acute (15) Pulmonary edema Status: Acute (16) Renal failure Status: Acute (17) Right heart failure Status: Acute Review of Systems Constitutional: + weakness, No fever, No chills Respiratory: No cough, No sputum, No shortness of breath Cardiac: No chest pain Abdomen: + pain, + nausea, + vomiting, + diarrhea, No constipation, No GI bleeding Neurologic: + memory loss, + weakness, + balance problems, No paralysis, No numbness/tingling, No vertigo Medications Current Inpatient Medications Medications (Trade) Dose Ordered Sig/Gin Route Start Time Stop Time Status Last Admin Dose Admin Acetaminophen (Tylenol Tab) 325 mg Q6H PRN PO 03/16/17 02:45 04/15/17 02:44 Insulin Aspart (novoLOG ASPART) SLIDING SCALE If C... ACHS SC 03/16/17 06:30 04/15/17 06:59 Glucose (Glucose 40% Gel) 15-30 GRAMS 15 GRAMS... UD PRN PO 03/16/17 02:45 04/15/17 02:44 Glucose (Glucose Chew Tab) 4-8 Tablets 4 Tabl... UD PRN PO 03/16/17 02:45 04/15/17 02:44 Dextrose (Dextrose 50% 50ML Syringe) 25-50ML OF 50% DW IV FOR... UD PRN IV 03/16/17 02:45 04/15/17 02:44 Glucagon (Glucagon Inj) 1 mg UD PRN SQ 03/16/17 02:45 04/15/17 02:44 Folic Acid (Folvite Tab) 1 mg DAILY PO 03/16/17 08:00 04/15/17 08:59 03/16/17 08:12 1 MG Metoprolol Succinate (Toprol Xl Tab) 12.5 mg DAILY PO 03/16/17 08:00 04/15/17 08:59 Pantoprazole Sodium (Protonix Tab) 40 mg DAILY PO 03/16/17 08:00 04/15/17 08:59 03/16/17 08:12 40 MG Ondansetron HCl (Zofran Inj) 4 mg Q6H PRN IV 03/16/17 02:45 04/15/17 02:44 03/16/17 10:06 4 MG Promethazine HCl 12.5 mg/Sodium Chloride 50.5 ml @ 204 mls/hr Q6H PRN IV 03/16/17 02:45 04/15/17 02:44 Hydromorphone HCl (Dilaudid Inj) 0.5 mg Q3H PRN IV 03/16/17 02:45 03/30/17 02:44 Tramadol HCl (Ultram Tab) 25 mg Q6H PRN PO 03/16/17 02:45 04/15/17 02:44 Lactulose/Sterile Water/Barcode Q8 GA 03/16/17 14:00 04/15/17 13:59 Miscellaneous (Unit Dose Compound) 1 ea Q8 PO 03/16/17 14:00 04/15/17 13:59 Albumin Human (Albumin 25%) 25 gm TID IV 03/16/17 14:00 03/19/17 13:59 Rifaximin (Xifaxan Tab) 550 mg BID PO 03/16/17 20:00 04/15/17 19:59 Objective Vital Signs Date Time Temp Pulse Resp B/P (MAP) Pulse Ox O2 Delivery O2 Flow Rate FiO2 03/16/17 07:37 36.5 87 18 95/61 (72) 100 Room Air 10/26/17 04:34 36.6 94 18 93/60 Room Air 03/16/17 03:21 36.6 94 18 93/60 (71) 98 Room Air 03/16/17 01:55 100/64 03/16/17 01:38 85 17 97 03/16/17 01:33 99/50 03/16/17 01:21 92 17 98 03/16/17 01:01 95/03/16/17 00:51 85 21 96 03/16/17 00:31 103/61 03/16/17 00:21 87 16 99 03/16/17 00:16 85 20 03/16/17 00:02 94/61 03/15/17 23:46 90 17 99 03/15/17 23:16 90 16 97 03/15/17 23:04 86 03/15/17 22:58 36.8 90 17 109/64 96 Room Air 03/15/17 22:50 109/64 Physical Exam General Appearance: no apparent distress Respiratory/Chest: no respiratory distress, no accessory muscle use, + decreased breath sounds Cardiovascular: regular rate, rhythm, no murmur Abdomen: normal bowel sounds, + distended, + tenderness Extremities: + swelling, + pertinent finding (+1 pitting edema b/l LE) Neurologic/Psychiatric: no motor/sensory deficits, alert, normal mood/affect Laboratory Results Last 24 Hours Test 03/15/17 22:30 03/15/17 23:29 03/16/17 00:18 03/16/17 01:18 White Blood Count 7.39 K/uL Red Blood Count 3.34 M/uL Hemoglobin 8.9 g/dL Hematocrit 27.6 % Mean Corpuscular Volume 82.6 fL Mean Corpuscular Hemoglobin 26.6 pg Mean Corpuscular Hemoglobin Concent 32.2 g/dl Platelet Count 90 K/uL Mean Platelet Volume 10.0 fL Neutrophils (%) (Auto) 85.7 % Lymphocytes (%) (Auto) 7.0 % Monocytes (%) (Auto) 6.5 % Eosinophils (%) (Auto) 0.4 % Basophils (%) (Auto) 0.1 % Neutrophils # (Auto) 6.33 K/uL Lymphocytes # (Auto) 0.52 K/uL Monocytes # (Auto) 0.48 K/uL Eosinophils # (Auto) 0.03 K/uL Basophils # (Auto) 0.01 K/uL RDW Standard Deviation 57.8 fL RDW Coefficient of Variation 19.0 % Immature Granulocyte % (Auto) 0.3 % Immature Granulocyte # (Auto) 0.02 K/uL Polychromasia 1+ Hypochromasia PRESENT Ovalocytes 1+ Prothrombin Time 13.4 SECONDS Prothromb Time International Ratio 1.2 Activated Partial Thromboplast Time 29.8 SECONDS Partial Thromboplastin Ratio 1.1 Sodium Level 138 mmol/L Potassium Level 3.0 mmol/L Chloride Level 97 mmol/L Carbon Dioxide Level 28 mmol/L Anion Gap 13.0 mmol/L Blood Urea Nitrogen 86 mg/dl Creatinine 4.07 mg/dl Est Creatinine Clear Calc Drug Dose 14.7 ml/min Estimated GFR () 14.3 Estimated GFR (Non- 12.3 BUN/Creatinine Ratio 21.2 Random Glucose 128 mg/dl Calcium Level 8.2 mg/dl Magnesium Level 2.2 mg/dl Total Bilirubin 0.6 mg/dl Direct Bilirubin 0.2 mg/dl Aspartate Amino Transf (AST/SGOT) 37 U/L Alanine Aminotransferase (ALT/SGPT) 22 U/L Alkaline Phosphatase 78 U/L Troponin I 0.047 ng/ml 0.048 ng/ml Total Protein 7.1 gm/dl Albumin 2.9 gm/dl Ammonia 136.3 umol/L Urine Color YELLOW Urine Appearance CLEAR Urine pH 5.0 Urine Specific [place] 1.014 Urine Protein NEG Urine Glucose (UA) NEG Urine Ketones NEG Urine Occult Blood NEG Urine Nitrite NEG Urine Bilirubin NEG Urine Urobilinogen NEG Urine Leukocyte Esterase NEG Urine WBC (Auto) 0 /hpf Urine RBC (Auto) 0-4 /hpf Urine Hyaline Casts (Auto) 1-5 /lpf Urine Epithelial Cells (Auto) 0-5 /lpf Urine Bacteria (Auto) NEG Lactic Acid Level 2.2 mmol/L Test 03/16/17 07:55 03/16/17 08:00 Bedside Glucose 179 mg/dl White Blood Count 3.82 K/uL Red Blood Count 2.86 M/uL Hemoglobin 7.5 g/dL Hematocrit 23.7 % Mean Corpuscular Volume 82.9 fL Mean Corpuscular Hemoglobin 26.2 pg Mean Corpuscular Hemoglobin Concent 31.6 g/dl Platelet Count 61 K/uL Mean Platelet Volume 8.9 fL Neutrophils (%) (Auto) 86.9 % Lymphocytes (%) (Auto) 7.6 % Monocytes (%) (Auto) 5.5 % Eosinophils (%) (Auto) 0.0 % Basophils (%) (Auto) 0.0 % Neutrophils # (Auto) 3.32 K/uL Lymphocytes # (Auto) 0.29 K/uL Monocytes # (Auto) 0.21 K/uL Eosinophils # (Auto) 0.00 K/uL Basophils # (Auto) 0.00 K/uL RDW Standard Deviation 58.7 fL RDW Coefficient of Variation 19.3 % Immature Granulocyte % (Auto) 0.0 % Immature Granulocyte # (Auto) 0.00 K/uL Hypersegmented Polys 1+ Hypochromasia PRESENT Anisocytosis PRESENT Ovalocytes 1+ Sodium Level 139 mmol/L Potassium Level 3.6 mmol/L Chloride Level 97 mmol/L Carbon Dioxide Level 29 mmol/L Anion Gap 12.0 mmol/L Blood Urea Nitrogen 86 mg/dl Creatinine 3.74 mg/dl Est Creatinine Clear Calc Drug Dose 16.0 ml/min Estimated GFR () 15.8 Estimated GFR (Non- 13.7 BUN/Creatinine Ratio 22.9 Random Glucose 171 mg/dl Lactic Acid Level 2.2 mmol/L Calcium Level 8.6 mg/dl Ammonia 54.2 umol/L Lipase 81 U/L Assessment and Plan This is an 87 year old male with history of SHANE cirrhosis and recurrent ascites , CKD stage IV, DM2, COPD, Paroxysmal A. Fib presents with confusion, weakness, increased abdominal fluid, and excessive diarrhea SHANE cirrhosis Recurrent Ascites Hepatic Encephalopathy patient has had recurrent ascites during previous admission, he required multiple paracentesis and his diuretic dose was increased at that time He states that since the discharge, he has been having diarrhea and some episodes of vomiting became confused and was brought to the ED from [facility] Noted to have worsening kidney function and elevated ammonia level Seems that he may have stopped taking his lactulose due to diarrhea for now, hold diuretics Lactulose enema if needed, depending on mental status Rifaximin started as per GI Abdominal U/S suggests moderate to large ascites - will need a therapeutic tap discussed with daughter during previous admission about hospice/palliative care and they were not ready - may need to address this again Diarrhea Hx. of C. Diff patient has a history of C. Diff was treated for this previously diarrhea persists even without lactulose use checking C. diff and stool cultures Acute Kidney Injury superimposed on CKD stage IV patient with creatinine in the upper 2's during previous admission due to recurrent fluid-build up - required increased dose of diuretics unfortunately, possibly due to diarrhea and fluid loss - creatinine/kidney function worsened creatinine on admission >4 hold diuretics; one bag of fluids already given nephrology consulted for further input Hx. of Myelodysplastic Syndrome Chronic Thrombocytopenia has chronic anemia due to the 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 will only transfuse if Hg < 7 due to liver cirrhosis, possible portal hypertension Currently Hgb is greater than 7 - we will monitor Monitor platelets - avoiding heparin Insulin Dependent DM2 well controlled; recent Ha1c = 6.2% sliding scale insulin placed Sick Sinus Syndrome s/p permanent pacemaker HTN monitor blood pressure b-noman continued for now Hx. of HOCM COPD no exacerbation DVT prophylaxis SCDs - secondary to thrombocytopenia DNR
--- NOTE | 2017-03-16 13:08 | Nephrology Consultation ---
Nephrology Consultation Date of Consultation: Mar 16, 2017. 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, HOCM s/p remote myomectomy, recent admission here late last month/ early this month for cirrhosis, ascites, and C diff. His admission creatinine is 4.1, K3.0, lactate 2.2. His creatinine during last admission here ran mid - high 2's. He has followed w/ me in the past in CKD clinic; however he has had several admissions recently and worsening of his chronic health conditions; I have not seen him as an outpt but our team has frequently followed as an inpatient for some time now. His last paracentesis was during last admission here. He had several large volume paracenteses last admission for management of his ascites. He was d/c from [facility] early this month on lasix 120 mg tid and metolazone 5 mg bid; midodrine short course was also added. He states that he felt fine walking to supper last evening but remembers little after that. His daughter gave most of hx at admission yesterday; she is not a bedside this am when I saw him. He woke feeling improved today but had clear liquids for breakfast then 30 min later had large emesis (approx 500 mL). he denies dyspnea or uncontrolled volume status. he is getting aggressive K repletion this am> 5 x 10 mEq K IV plus NS w/ 20 mEq/L KCl at 100 mL hourly. Labs from this am show K 3.6, creatinine 3.7. Past Medical/Surgical History Medical Problems: (1) Acute on chronic renal failure Status: Acute (2) MAGEN (acute kidney injury) Status: Acute (3) Altered mental status Status: Acute (4) Anasarca Status: Acute (5) Anasarca Status: Acute (6) Bilateral leg edema Status: Acute (7) CHF (congestive heart failure) Status: Acute (8) CHF (congestive heart failure) Status: Acute (9) Dehydration Status: Acute (10) Dyspnea on exertion Status: Acute (11) Elevated lactic acid level Status: Acute (12) Elevated troponin Status: Acute (13) Hepatic encephalopathy Status: Acute (14) Hypotension Status: Acute (15) Pulmonary edema Status: Acute (16) Renal failure Status: Acute (17) Right heart failure Status: Acute -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 -cirrhosis, 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 -IDDM -grade 2 diastolic dysfunction w/ normal LV systolic function -sick sinus syndrome, s/p pacer placement -hyperlipidemia -C diff 01/2017 -sleep apnea on cpap -COPD -ambulatory dysfunction, s/p 2012 -recurrent bladder CA s/p 09/2012 resection/fulguration w/ high grade pathology; s/p 01/2016 recurrence and for palliative approach w/ plans for limited TURBT w/ steroids/plts when gross hematuria becomes prominent/consistent; last saw Dr Dangelo late November -hx of low grade 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 -group B Strep bacteremia October 2016 [facility] admission -reformed tobacco user Family History FHx: heart disease Social History Smoking Status: Former Smoker Alcohol Use: none Drug Use: none Marital Status: Housing Status: assisted living Occupation Status: unemployed Allergies Coded Allergies: Propranolol (Verified Allergy, Unknown, 03/15/17) Codeine (Verified Adverse Reaction, Mild, NOTED "DOESNT TOLERATE WELL" , 03/15/17) Medications Current Inpatient Medications Medications (Trade) Dose Ordered Sig/Gin Route Start Time Stop Time Status Last Admin Dose Admin Acetaminophen (Tylenol Tab) 325 mg Q6H PRN PO 03/16/17 02:45 04/15/17 02:44 Insulin Aspart (novoLOG ASPART) SLIDING SCALE If C... ACHS SC 03/16/17 06:30 04/15/17 06:59 Glucose (Glucose 40% Gel) 15-30 GRAMS 15 GRAMS... UD PRN PO 03/16/17 02:45 04/15/17 02:44 Glucose (Glucose Chew Tab) 4-8 Tablets 4 Tabl... UD PRN PO 03/16/17 02:45 04/15/17 02:44 Dextrose (Dextrose 50% 50ML Syringe) 25-50ML OF 50% DW IV FOR... UD PRN IV 03/16/17 02:45 04/15/17 02:44 Glucagon (Glucagon Inj) 1 mg UD PRN SQ 03/16/17 02:45 04/15/17 02:44 Folic Acid (Folvite Tab) 1 mg DAILY PO 03/16/17 08:00 04/15/17 08:59 Metoprolol Succinate (Toprol Xl Tab) 12.5 mg DAILY PO 03/16/17 08:00 04/15/17 08:59 Pantoprazole Sodium (Protonix Tab) 40 mg DAILY PO 03/16/17 08:00 04/15/17 08:59 Potassium Chloride 10 meq/ Prmx 100 ml @ 100 mls/hr Q1H IV 03/16/17 03:00 03/16/17 08:59 03/16/17 06:17 100 MLS/HR Ondansetron HCl (Zofran Inj) 4 mg Q6H PRN IV 03/16/17 02:45 04/15/17 02:44 Promethazine HCl 12.5 mg/Sodium Chloride 50.5 ml @ 204 mls/hr Q6H PRN IV 03/16/17 02:45 04/15/17 02:44 Hydromorphone HCl (Dilaudid Inj) 0.5 mg Q3H PRN IV 03/16/17 02:45 03/30/17 02:44 Tramadol HCl (Ultram Tab) 25 mg Q6H PRN PO 03/16/17 02:45 04/15/17 02:44 Lactulose/Sterile Water/Barcode Q8 LA 03/16/17 14:00 04/15/17 13:59 Miscellaneous (Unit Dose Compound) 1 ea Q8 PO 03/16/17 14:00 04/15/17 13:59 Home Meds and Scripts Medications Dose Route/Sig Max Daily Dose Days Date Category Dose Instructions Klor-Con Sprinkle (Potassium Chloride) 10 Meq Cap 40 Meq PO BIDM 03/15/17 Reported Metolazone 5 Mg Tab 5 Mg PO BID 30 02/21/17 Rx Toprol-Xl (Metoprolol Succinate) 25 Mg Tabcr 12.5 Mg PO DAILY 30 02/21/17 Rx Lasix (Furosemide) 80 Mg Tab 120 Mg PO TID 30 02/21/17 Rx Zofran (Ondansetron HCl) 4 Mg Tab 4 Mg PO Q6H PRN 02/06/17 Reported Lantus Solostar (Insulin Glargine) 100 Unit/Ml Inj 10 Units SQ HS 02/06/17 Reported Novolog (Insulin Aspart) 100 Units/Ml Inj SQ ACHS 02/06/17 Reported SLIDING SCALE 1 UNIT FOR EVERY 20 MG/DL INCREASE IN GLUCOSE ABOVE 150 Chronulac (Lactulose) 10 Gm/15 Ml Syrp 15 Ml PO TID PRN 02/06/17 Reported Protonix (Pantoprazole Sodium) 40 Mg Tab 40 Mg PO DAILY 09/01/16 Reported Tylenol (Acetaminophen) 325 Mg Tab 650 Mg PO Q4 PRN 08/26/13 Reported NOT TO EXCEED 3000MG APAP/24HR Nitrostat (Nitroglycerin) 0.4 Mg Tab 0.4 Mg UT UD PRN 08/26/13 Reported Folic Acid 1 Mg Tab 1 Mg PO DAILY 08/26/13 Reported Review of Systems Constitutional: + weakness, + fatigue, No fever Eyes: No worsening of vision ENT: No hearing loss Respiratory: + shortness of breath (stable chronic), + dyspnea on exertion ( stable, chronic), No cough, No dyspnea at rest Cardiac: + edema (controlled/ improved), No chest pain, No palpitations Abdomen: + see HPI, + nausea (worse/recurrent w/ deep inspirations), + vomiting Musculoskeletal: + joint pain (low back), No muscle pain Male : No dysuria, No urinary frequency, No hematuria Neuro: + memory loss, + weakness, + balance problems (walker dependent) Psych: No depression symptoms, No anxiety Heme: No abnormal bleeding/bruising Endo: + fatigue Skin: No rash, No itch, No new/changing skin lesions Physical Exam Date Time Temp Pulse Resp B/P (MAP) Pulse Ox O2 Delivery O2 Flow Rate FiO2 03/16/17 07:37 36.5 87 18 95/61 (72) 100 Room Air 03/16/17 04:34 36.6 94 18 93/60 Room Air 03/16/17 03:21 36.6 94 18 93/60 (71) 98 Room Air 03/16/17 01:55 100/64 03/16/17 01:38 85 17 97 03/16/17 01:33 99/50 03/16/17 01:21 92 17 98 03/16/17 01:01 95/67 03/16/17 00:51 85 21 96 03/16/17 00:31 103/61 03/16/17 00:21 87 16 99 03/16/17 00:16 85 20 03/16/17 00:02 94/61 03/15/17 23:46 90 17 99 03/15/17 23:16 90 16 97 03/15/17 23:04 86 03/15/17 22:58 36.8 90 17 109/64 96 Room Air 03/15/17 22:50 109/64 General Appearance: WD/WN, no apparent distress, + obese, + pertinent finding ( on RA, oriented to self/ place. ) Eyes: EOMI ENT: normal ENT inspection Neck: supple Respiratory/Chest: + decreased breath sounds, + crackles (bibasilar and fine; tubular BS on R ) Cardiovascular: + irregularly irregular, + pertinent finding (edema 3+ distal BLE/pedal) Abdomen: normal bowel sounds, non tender, soft, + pertinent finding Extremities: + pedal edema (as above) Neurologic/Psych: alert, normal mood/affect, oriented x 3 (some limited recall as above) Skin: no jaundice, warm/dry, no rash Diagnostics Last 24 Hours Test 03/15/17 22:30 03/15/17 23:29 03/16/17 00:18 03/16/17 01:18 White Blood Count 7.39 K/uL Red Blood Count 3.34 M/uL Hemoglobin 8.9 g/dL Hematocrit 27.6 % Mean Corpuscular Volume 82.6 fL Mean Corpuscular Hemoglobin 26.6 pg Mean Corpuscular Hemoglobin Concent 32.2 g/dl Platelet Count 90 K/uL Mean Platelet Volume 10.0 fL Neutrophils (%) (Auto) 85.7 % Lymphocytes (%) (Auto) 7.0 % Monocytes (%) (Auto) 6.5 % Eosinophils (%) (Auto) 0.4 % Basophils (%) (Auto) 0.1 % Neutrophils # (Auto) 6.33 K/uL Lymphocytes # (Auto) 0.52 K/uL Monocytes # (Auto) 0.48 K/uL Eosinophils # (Auto) 0.03 K/uL Basophils # (Auto) 0.01 K/uL RDW Standard Deviation 57.8 fL RDW Coefficient of Variation 19.0 % Immature Granulocyte % (Auto) 0.3 % Immature Granulocyte # (Auto) 0.02 K/uL Polychromasia 1+ Hypochromasia PRESENT Ovalocytes 1+ Prothrombin Time 13.4 SECONDS Prothromb Time International Ratio 1.2 Activated Partial Thromboplast Time 29.8 SECONDS Partial Thromboplastin Ratio 1.1 Sodium Level 138 mmol/L Potassium Level 3.0 mmol/L Chloride Level 97 mmol/L Carbon Dioxide Level 28 mmol/L Anion Gap 13.0 mmol/L Blood Urea Nitrogen 86 mg/dl Creatinine 4.07 mg/dl Est Creatinine Clear Calc Drug Dose 14.7 ml/min Estimated GFR () 14.3 Estimated GFR (Non- 12.3 BUN/Creatinine Ratio 21.2 Random Glucose 128 mg/dl Calcium Level 8.2 mg/dl Magnesium Level 2.2 mg/dl Total Bilirubin 0.6 mg/dl Direct Bilirubin 0.2 mg/dl Aspartate Amino Transf (AST/SGOT) 37 U/L Alanine Aminotransferase (ALT/SGPT) 22 U/L Alkaline Phosphatase 78 U/L Troponin I 0.047 ng/ml 0.048 ng/ml Total Protein 7.1 gm/dl Albumin 2.9 gm/dl Ammonia 136.3 umol/L Urine Color YELLOW Urine Appearance CLEAR Urine pH 5.0 Urine Specific [place] 1.014 Urine Protein NEG Urine Glucose (UA) NEG Urine Ketones NEG Urine Occult Blood NEG Urine Nitrite NEG Urine Bilirubin NEG Urine Urobilinogen NEG Urine Leukocyte Esterase NEG Urine WBC (Auto) 0 /hpf Urine RBC (Auto) 0-4 /hpf Urine Hyaline Casts (Auto) 1-5 /lpf Urine Epithelial Cells (Auto) 0-5 /lpf Urine Bacteria (Auto) NEG Lactic Acid Level 2.2 mmol/L Test 03/16/17 04:47 Diagnostic Radiology: CXR pulm vascular congestion, enlarged heart, layering pleural effusions w/ bibasilar congestion abd u/s > moderate/large ascites EKG: a fib w/ v-paced w/ premature or aberrantly conducted complexes Assessment & Plan 87 y/o M w/ 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 His diuretics were held; he is getting tx for hypokalemia. MAGEN on CKD 4/5, slightly improved -likely prerenal versus ATN in setting of obligate aggressive diuretics; nothing to suggest interstitial nephritis or GN. Could consider hepatorenal syndrome as well but will follow first response to above -no acute indication for dialysis; did not yet d/w him this admission; cannot rule out need though he would be poor candidate -limit fluid resuscitation to 1L; then stop -after IVF done, recommend 25% albumin 12.5-25 gm tid -cont to hold diuretics and use prn dyspnea only -recheck bmp 1400 ordered -admission urine sediment bland -f/u pending urine sodium Hypokalemia -increased from 3.0 > 3.6 this am; had large emesis this am; will recheck labs this afternoon; stopped last 10 mEq IV and will monitor K closely Ascites and cirrhosis, w/ worsening renal failure, elevated lactate -recommend diagnostic paracentesis if possible -f/u GI recs for rifaximin therapy >2 gm daily Na diet po; limit po fluids when not on fluid only diet to 1.8L -blood pressure not unexpected w/ his comorbidities C diff colitis and emesis per primary service Appreciate consult; will follow with you.
[2017-03-16] MEDS: UNIT DOSE COMPOUND PO SCH ×2 (14:00→21:51)
[2017-03-16] MEDS: LACTULOSE SYRUP 200 GM, WATER, STERILE IRRIG 700 ML, BARCODE IDENTIFIER 1 EA PR SCH ×4 (14:49→21:51)
[2017-03-16 15:31] LABS: CREATININE 3.91 mg/dl (0.60-1.40); POTASSIUM 3.5 mmol/L (3.5-5.1)
[2017-03-16] MEDS: RIFAXIMIN TAB 550 MG TAB PO SCH (20:20)
[2017-03-16] MEDS ORDERED: PANTOprazole INJ 80 MG in DEXTROSE 5% 100ML IV SCH (22:00)
[2017-03-16 22:12] LABS: HEMATOCRIT 23.6 % (42-52)
[2017-03-16] MEDS: PANTOprazole INJ 40 MG in DEXTROSE 5% 100ML IV SCH (22:37)
[2017-03-16] MEDS ORDERED: ACETAMINOPHEN 325 MG TAB PO SCH (22:45)
[2017-03-16] MEDS: RASPBERRY SYRUP 5 ML UDP PO SCH (23:46)
[2017-03-16] MEDS: VANCOMYCIN HCL 125 MG/2.5ML SOLN PO SCH (23:47)
[2017-03-17] VITALS (10 sets, daily range): BP systolic 91–96; BP diastolic 51–65; PULSE 77–98; TEMP 36.6–37; O2SAT 95–100
[2017-03-17] MEDS: PANTOprazole INJ 40 MG in DEXTROSE 5% 100ML IV SCH ×5 (03:59→22:19)
[2017-03-17] MEDS: LACTULOSE SYRUP 200 GM, WATER, STERILE IRRIG 700 ML, BARCODE IDENTIFIER 1 EA PR SCH ×6 (05:17→20:00)
[2017-03-17] MEDS: UNIT DOSE COMPOUND PO SCH ×3 (05:17→20:00)
[2017-03-17 06:16] LABS: MEAN CORPUSCULAR HEMOGLOBIN 26.9 pg (25-34); MEAN CORPUSCULAR HGB CONC 31.6 g/dl (32-36); RED BLOOD COUNT 2.94 M/uL (4.7-6.1); WHITE BLOOD COUNT 6.04 K/uL (4.8-10.8)
[2017-03-17 06:17] LABS: MEAN PLATELET VOLUME 9.4 fL (7.4-10.4); PLATELET COUNT 54 K/uL (130-400)
[2017-03-17 06:59] LABS: BUN/CREATININE RATIO 21.7 (10-20); CALCIUM 8.3 mg/dl (8.5-10.1); CREATININE 3.8 mg/dl (0.60-1.40); POTASSIUM 2.9 mmol/L (3.5-5.1)
[2017-03-17 07:25] LABS: ANISOCYTOSIS PRESENT; BASO % 0.2 %; BASO ABS # 0.01 K/uL (0-0.2); COMPLETE YES; EOS % 0.7 %; HYPERSEGMENTED POLYS 1+; IG% 0.2 %; LYMPH % 3.6 %; LYMPH ABS # 0.22 K/uL (1.2-3.4); MONO % 5.6 %; NEUT % 89.7 %; OVALOCYTES 1+
--- NOTE | 2017-03-17 08:23 | Gastroenterology Progress Note ---
Progress Note Date of Service: Mar 17, 2017 Subjective Pt evaluation today including: conversation w/ patient, physical exam, chart review, lab review Pt seen and examined, chart reviewed. No acute events overnight. C.diff returned positive, was started on vancomycin. He offers no complaints this AM other than diarrhea, some BRB per note. Denies abdominal pain, cramping. He is tolerating a clear liquid breakfast. Denies fever, chills, CP, SOB. Mentating clearly, answering questions appropriately. Decompensations - Ascites: yes - Varices: unknown - Hepatic encephalopathy: yes Screenings - Varices: due - HCC screening: UTD - Immunization status: unknown RUQ US 03/16/17: Moderate to large volume of abdominal ascites. Chest XR 03/15/17: Cardiomegaly and cardiac pacemaker with evidence of congestive failure. There are layering pleural effusions with bibasilar consolidation. This likely represents atelectasis. Clinical correlation will be required Review of Systems Constitutional: No fever, No chills Respiratory: No cough, No shortness of breath Cardiac: + edema, No chest pain Abdomen: + diarrhea, No pain, No nausea, No vomiting Medications Current Inpatient Medications Medications (Trade) Dose Ordered Sig/Gin Route Start Time Stop Time Status Last Admin Dose Admin Acetaminophen (Tylenol Tab) 325 mg Q6H PRN PO 03/16/17 02:45 04/15/17 02:44 Insulin Aspart (novoLOG ASPART) SLIDING SCALE If C... ACHS SC 03/16/17 06:30 04/15/17 06:59 03/16/17 22:15 1 UNITS Glucose (Glucose 40% Gel) 15-30 GRAMS 15 GRAMS... UD PRN PO 03/16/17 02:45 04/15/17 02:44 Glucose (Glucose Chew Tab) 4-8 Tablets 4 Tabl... UD PRN PO 03/16/17 02:45 04/15/17 02:44 Dextrose (Dextrose 50% 50ML Syringe) 25-50ML OF 50% DW IV FOR... UD PRN IV 03/16/17 02:45 04/15/17 02:44 Glucagon (Glucagon Inj) 1 mg UD PRN SQ 03/16/17 02:45 04/15/17 02:44 Folic Acid (Folvite Tab) 1 mg DAILY PO 03/16/17 08:00 04/15/17 08:59 03/16/17 08:12 1 MG Metoprolol Succinate (Toprol Xl Tab) 12.5 mg DAILY PO 03/16/17 08:00 04/15/17 08:59 Pantoprazole Sodium (Protonix Tab) 40 mg DAILY PO 03/16/17 08:00 04/15/17 08:59 Future Hold 03/16/17 08:12 40 MG Ondansetron HCl (Zofran Inj) 4 mg Q6H PRN IV 03/16/17 02:45 04/15/17 02:44 03/16/17 19:58 4 MG Promethazine HCl 12.5 mg/Sodium Chloride 50.5 ml @ 204 mls/hr Q6H PRN IV 03/16/17 02:45 04/15/17 02:44 Hydromorphone HCl (Dilaudid Inj) 0.5 mg Q3H PRN IV 03/16/17 02:45 03/30/17 02:44 Tramadol HCl (Ultram Tab) 25 mg Q6H PRN PO 03/16/17 02:45 04/15/17 02:44 Lactulose/Sterile Water/Barcode Q8 MT 03/16/17 14:00 04/15/17 13:59 03/16/17 14:49 10 GM Miscellaneous (Unit Dose Compound) 1 ea Q8 PO 03/16/17 14:00 04/15/17 13:59 03/16/17 14:00 1 EA Albumin Human (Albumin 25%) 25 gm TID IV 03/16/17 14:00 03/19/17 13:59 03/16/17 20:22 25 GM Rifaximin (Xifaxan Tab) 550 mg BID PO 03/16/17 20:00 04/15/17 19:59 03/16/17 20:20 550 MG Pantoprazole Sodium 40 mg/ Dextrose 100 ml @ 20 mls/hr Q5H IV 03/16/17 22:15 04/15/17 22:14 03/17/17 03:59 20 MLS/HR Vancomycin HCl (Vancomycin Oral Soln) 125 mg QID PO 03/16/17 23:00 03/30/17 22:59 03/16/17 23:47 125 MG Raspberry (Raspberry Syrup 5ml Cup) 5 ml QID PO 03/16/17 23:00 03/30/17 22:59 03/16/17 23:46 5 ML Objective Vital Signs Date Time Temp Pulse Resp B/P (MAP) Pulse Ox O2 Delivery O2 Flow Rate FiO2 03/17/17 07:07 36.6 83 18 96/53 (67) 98 CPAP 3.0 03/17/17 03:00 36.8 87 20 91/51 97 3.0 03/17/17 02:03 36.6 88 20 93/53 98 3.0 03/17/17 01:30 36.9 81 18 95/57 98 3.0 03/17/17 01:16 36.8 98 20 93/57 98 3.0 03/17/17 01:04 37.0 84 18 94/57 98 3.0 03/17/17 00:38 37.0 85 18 95/56 99 3.0 03/17/17 00:30 CPAP 3.0 03/17/17 00:03 36.9 93 20 95/65 (75) 97 CPAP 3.0 03/16/17 20:28 36.8 16 100/61 (74) 96 Room Air 03/16/17 16:00 Room Air 03/16/17 14:50 37.0 81 20 91/58 (69) 91 Room Air 03/16/17 14:23 37.0 89 20 103/66 (78) 100 Room Air 03/16/17 11:51 100 Room Air Physical Exam General Appearance: no apparent distress Eyes: PERRL ENT: hearing grossly normal Neck: supple Respiratory/Chest: lungs clear Cardiovascular: regular rate, rhythm, + pertinent finding (bilateral lower extremity edema, unchanged) Abdomen: normal bowel sounds, soft, no organomegaly, + pertinent finding ( nontense ascites) Neurologic/Psych: alert, normal mood/affect, + pertinent finding (oriented to person, place but not time) Skin: normal color Laboratory Results Last 24 Hours Test 03/16/17 11:22 03/16/17 14:30 03/16/17 16:17 03/16/17 20:11 Bedside Glucose 180 mg/dl 188 mg/dl 224 mg/dl Sodium Level 138 mmol/L Potassium Level 3.5 mmol/L Chloride Level 100 mmol/L Carbon Dioxide Level 25 mmol/L Anion Gap 13.0 mmol/L Blood Urea Nitrogen 86 mg/dl Creatinine 3.91 mg/dl Est Creatinine Clear Calc Drug Dose 15.3 ml/min Estimated GFR () 15.0 Estimated GFR (Non- 13.0 BUN/Creatinine Ratio 22.0 Random Glucose 199 mg/dl Calcium Level 8.0 mg/dl Test 03/16/17 22:04 03/16/17 22:30 03/17/17 05:59 03/17/17 07:38 Hemoglobin 7.4 g/dL 7.9 g/dL Hematocrit 23.6 % 25.0 % Urine Random Sodium 41 mEq/L White Blood Count 6.04 K/uL Red Blood Count 2.94 M/uL Mean Corpuscular Volume 85.0 fL Mean Corpuscular Hemoglobin 26.9 pg Mean Corpuscular Hemoglobin Concent 31.6 g/dl Platelet Count 54 K/uL Mean Platelet Volume 9.4 fL Neutrophils (%) (Auto) 89.7 % Lymphocytes (%) (Auto) 3.6 % Monocytes (%) (Auto) 5.6 % Eosinophils (%) (Auto) 0.7 % Basophils (%) (Auto) 0.2 % Neutrophils # (Auto) 5.42 K/uL Lymphocytes # (Auto) 0.22 K/uL Monocytes # (Auto) 0.34 K/uL Eosinophils # (Auto) 0.04 K/uL Basophils # (Auto) 0.01 K/uL RDW Standard Deviation 58.1 fL RDW Coefficient of Variation 18.5 % Immature Granulocyte % (Auto) 0.2 % Immature Granulocyte # (Auto) 0.01 K/uL Hypersegmented Polys 1+ Anisocytosis PRESENT Ovalocytes 1+ Sodium Level 141 mmol/L Potassium Level 2.9 mmol/L Chloride Level 101 mmol/L Carbon Dioxide Level 30 mmol/L Anion Gap 10.0 mmol/L Blood Urea Nitrogen 82 mg/dl Creatinine 3.80 mg/dl Est Creatinine Clear Calc Drug Dose 15.8 ml/min Estimated GFR () 15.5 Estimated GFR (Non- 13.4 BUN/Creatinine Ratio 21.7 Random Glucose 160 mg/dl Calcium Level 8.3 mg/dl Ammonia 37.0 umol/L Bedside Glucose 164 mg/dl Assessment and Plan Patient is a 87 year old male w/ cirrhosis decompensated by gross ascites and hepatic encephalopathy, unknown if he has esophageal varices who presented to the ED acute mental status changes. NH3 was elevated, electrolyte imbalances with a bump in kidney function BUN 86 creatinine 4, up from his baseline 32/ 2.5. Appears he was discharged on lasix 40 mg BID. MAGEN or ARF, will rule out HRS with random urine NA. Kidney function greatly unchanged overnight, urine NA 41, no evidence of HRS. - IV PPI BID - Trend H&H - Transfuse PRN - History of C.Diff, still having diarrhea, not on lactulose as outpatient - stool culture - stool for c.diff - stool for c.diff positive, please taper vancomycin - vancomycin 125 mg QID x 14 days - vancomycin 125 mg BID x 7 days - vancomycin 125 mg daily x 7 days - vancomycin 125 mg every other day x 7 days - vancomycin 125 mg every three days x 14 days - Cirrhosis - can arrange diagnostic/therapeutic paracentesis if pt is agreeable - would hold PO lactulose due to kidney function - start Xifaxan 550 BID - OK to use lactulose enemas if needed - BUN/STUDENT SUCCESS COACH bump - urine NA - hold all diuretics - low NA diet, less grimes 2G daily - daily weight - Start albumin 25G TID - consult nephrology GI to watch peripherally. Please call with any questions or concerns. I have interviewed and examined the patient and agree with Melva's progress note, patient feels better today. On exam his abdomen is soft and nontender. Continue Albumin and Vancomycin and monitor I&O and kidney function closely.
[2017-03-17] MEDS ORDERED: POTASSIUM CHLORIDE 20 MEQ TABCR PO ONE ×2 (09:15→16:30)
[2017-03-17] MEDS: VANCOMYCIN HCL 125 MG/2.5ML SOLN PO SCH ×4 (09:27→19:56)
[2017-03-17] MEDS: ALBUMIN HUMAN 25% 12.5 GM/50 ML VIAL IV SCH ×3 (09:33→19:58)
[2017-03-17] MEDS: METOPROLOL SUCC 25MG EXT REL TAB PO SCH (09:42)
[2017-03-17] MEDS: RASPBERRY SYRUP 5 ML UDP PO SCH ×4 (09:42→19:56)
[2017-03-17] MEDS: INSULIN ASPART 100 UNITS/ML 3 ML PEN SC SCH ×4 (09:43→21:11)
[2017-03-17] MEDS: RIFAXIMIN TAB 550 MG TAB PO SCH ×2 (09:43→20:00)
[2017-03-17] MEDS: POTASSIUM CHLR 10 MEQ / WTR 10 MEQ in PREMIXED WATER 100 ML IV SCH ×2 (09:54→14:22)
--- NOTE | 2017-03-17 10:16 | Nephrology Progress Note ---
Nephrology Progress Note Date of Service: Mar 17, 2017. Subjective had BRBPR overnight; now on intermittent protonix. no n/v today and ate full breakfast; denies dyspnea; was on 02 w/ cpap. no sense of worsening fluid load ; voiding w/o effort Objective Date Time Temp Pulse Resp B/P (MAP) Pulse Ox O2 Delivery O2 Flow Rate FiO2 03/17/17 07:07 36.6 83 18 96/53 (67) 98 CPAP 3.0 03/17/17 03:00 36.8 87 20 91/51 97 3.0 03/17/17 02:03 36.6 88 20 93/53 98 3.0 03/17/17 01:30 36.9 81 18 95/57 98 3.0 03/17/17 01:16 36.8 98 20 93/57 98 3.0 03/17/17 01:04 37.0 84 18 94/57 98 3.0 03/17/17 00:38 37.0 85 18 95/56 99 3.0 03/17/17 00:30 CPAP 3.0 03/17/17 00:03 36.9 93 20 95/65 (75) 97 CPAP 3.0 03/16/17 20:28 36.8 16 100/61 (74) 96 Room Air 03/16/17 16:00 Room Air 03/16/17 14:50 37.0 81 20 91/58 (69) 91 Room Air 03/16/17 14:23 37.0 89 20 103/66 (78) 100 Room Air 03/16/17 11:51 100 Room Air Physical Exam: General Appearance: WD/WN, no apparent distress, + obese, + pertinent finding ( on RA, oriented to self/ place. ) Eyes: EOMI ENT: normal ENT inspection Neck: supple Respiratory/Chest: +++ decreased breath sounds, + crackles (bibasilar and fine Cardiovascular: + irregularly irregular, + pertinent finding (edema 2-3+ distal BLE/pedal) Abdomen: normal bowel sounds, non tender, soft, + pertinent finding Extremities: + pedal edema (as above) Neurologic/Psych: alert, normal mood/affect, oriented x 3 (some limited recall as above) Skin: no jaundice, warm/dry, no rash Current Inpatient Medications Medications (Trade) Dose Ordered Sig/Gin Route Start Time Stop Time Status Last Admin Dose Admin Acetaminophen (Tylenol Tab) 325 mg Q6H PRN PO 03/16/17 02:45 04/15/17 02:44 Insulin Aspart (novoLOG ASPART) SLIDING SCALE If C... ACHS SC 03/16/17 06:30 04/15/17 06:59 03/16/17 22:15 1 UNITS Glucose (Glucose 40% Gel) 15-30 GRAMS 15 GRAMS... UD PRN PO 03/16/17 02:45 04/15/17 02:44 Glucose (Glucose Chew Tab) 4-8 Tablets 4 Tabl... UD PRN PO 03/16/17 02:45 04/15/17 02:44 Dextrose (Dextrose 50% 50ML Syringe) 25-50ML OF 50% DW IV FOR... UD PRN IV 03/16/17 02:45 04/15/17 02:44 Glucagon (Glucagon Inj) 1 mg UD PRN SQ 03/16/17 02:45 04/15/17 02:44 Folic Acid (Folvite Tab) 1 mg DAILY PO 03/16/17 08:00 04/15/17 08:59 03/16/17 08:12 1 MG Metoprolol Succinate (Toprol Xl Tab) 12.5 mg DAILY PO 03/16/17 08:00 04/15/17 08:59 Pantoprazole Sodium (Protonix Tab) 40 mg DAILY PO 03/16/17 08:00 04/15/17 08:59 Future Hold 03/16/17 08:12 40 MG Ondansetron HCl (Zofran Inj) 4 mg Q6H PRN IV 03/16/17 02:45 04/15/17 02:44 03/16/17 19:58 4 MG Promethazine HCl 12.5 mg/Sodium Chloride 50.5 ml @ 204 mls/hr Q6H PRN IV 03/16/17 02:45 04/15/17 02:44 Hydromorphone HCl (Dilaudid Inj) 0.5 mg Q3H PRN IV 03/16/17 02:45 03/30/17 02:44 Tramadol HCl (Ultram Tab) 25 mg Q6H PRN PO 03/16/17 02:45 04/15/17 02:44 Lactulose/Sterile Water/Barcode Q8 ND 03/16/17 14:00 04/15/17 13:59 03/16/17 14:49 10 GM Miscellaneous (Unit Dose Compound) 1 ea Q8 PO 03/16/17 14:00 04/15/17 13:59 03/16/17 14:00 1 EA Albumin Human (Albumin 25%) 25 gm TID IV 03/16/17 14:00 03/19/17 13:59 03/16/17 20:22 25 GM Rifaximin (Xifaxan Tab) 550 mg BID PO 03/16/17 20:00 04/15/17 19:59 03/16/17 20:20 550 MG Pantoprazole Sodium 40 mg/ Dextrose 100 ml @ 20 mls/hr Q5H IV 03/16/17 22:15 04/15/17 22:14 03/17/17 03:59 20 MLS/HR Vancomycin HCl (Vancomycin Oral Soln) 125 mg QID PO 03/16/17 23:00 03/30/17 22:59 03/16/17 23:47 125 MG Raspberry (Raspberry Syrup 5ml Cup) 5 ml QID PO 03/16/17 23:00 03/30/17 22:59 03/16/17 23:46 5 ML Last 24 Hours Test 03/16/17 11:22 03/16/17 14:30 03/16/17 16:17 03/16/17 20:11 Bedside Glucose 180 mg/dl 188 mg/dl 224 mg/dl Sodium Level 138 mmol/L Potassium Level 3.5 mmol/L Chloride Level 100 mmol/L Carbon Dioxide Level 25 mmol/L Anion Gap 13.0 mmol/L Blood Urea Nitrogen 86 mg/dl Creatinine 3.91 mg/dl Est Creatinine Clear Calc Drug Dose 15.3 ml/min Estimated GFR () 15.0 Estimated GFR (Non- 13.0 BUN/Creatinine Ratio 22.0 Random Glucose 199 mg/dl Calcium Level 8.0 mg/dl Test 03/16/17 22:04 03/16/17 22:30 03/17/17 05:59 03/17/17 07:38 Hemoglobin 7.4 g/dL 7.9 g/dL Hematocrit 23.6 % 25.0 % Urine Random Sodium 41 mEq/L White Blood Count 6.04 K/uL Red Blood Count 2.94 M/uL Mean Corpuscular Volume 85.0 fL Mean Corpuscular Hemoglobin 26.9 pg Mean Corpuscular Hemoglobin Concent 31.6 g/dl Platelet Count 54 K/uL Mean Platelet Volume 9.4 fL Neutrophils (%) (Auto) 89.7 % Lymphocytes (%) (Auto) 3.6 % Monocytes (%) (Auto) 5.6 % Eosinophils (%) (Auto) 0.7 % Basophils (%) (Auto) 0.2 % Neutrophils # (Auto) 5.42 K/uL Lymphocytes # (Auto) 0.22 K/uL Monocytes # (Auto) 0.34 K/uL Eosinophils # (Auto) 0.04 K/uL Basophils # (Auto) 0.01 K/uL RDW Standard Deviation 58.1 fL RDW Coefficient of Variation 18.5 % Immature Granulocyte % (Auto) 0.2 % Immature Granulocyte # (Auto) 0.01 K/uL Hypersegmented Polys 1+ Anisocytosis PRESENT Ovalocytes 1+ Sodium Level 141 mmol/L Potassium Level 2.9 mmol/L Chloride Level 101 mmol/L Carbon Dioxide Level 30 mmol/L Anion Gap 10.0 mmol/L Blood Urea Nitrogen 82 mg/dl Creatinine 3.80 mg/dl Est Creatinine Clear Calc Drug Dose 15.8 ml/min Estimated GFR () 15.5 Estimated GFR (Non- 13.4 BUN/Creatinine Ratio 21.7 Random Glucose 160 mg/dl Calcium Level 8.3 mg/dl Ammonia 37.0 umol/L Bedside Glucose 164 mg/dl Date/Time Source Procedure Growth Status 03/16/17 20:00 Stool C.difficile Toxin B Gene (PCR) - Final Positive for C. 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 His diuretics were held; he is getting tx for hypokalemia again this am; he MAGEN on CKD 4/5, slightly improved -likely prerenal versus ATN in setting of obligate aggressive diuretics; nothing to suggest interstitial nephritis or GN. Could consider hepatorenal syndrome as well but will follow first response to above -no acute indication for dialysis; discussed dialysis w/ pt >> he understands he is a poor candidate, that tx not likely to improve quality of life and declines therapy should need arise -cont 25% albumin 25 gm tid -cont to hold diuretics and use prn dyspnea only -recheck bmp 1500 ordered -admission urine sediment bland Hypokalemia -2.9 this am; getting 20mEq IV and 20 mEq po -resupplement po if possible based on labs this pm Ascites and cirrhosis, w/ worsening renal failure, elevated lactate -recommend diagnostic paracentesis if possible -f/u GI recs for xifaxantherapy >2 gm daily Na diet po; limit po fluids when not on fluid only diet to 1.8L -blood pressure not unexpected w/ his comorbidities C diff colitis and emesis per primary service Appreciate consult; will follow with you.
[2017-03-17 16:19] LABS: BUN/CREATININE RATIO 21.7 (10-20); CALCIUM 7.9 mg/dl (8.5-10.1); CREATININE 3.71 mg/dl (0.60-1.40); POTASSIUM 2.8 mmol/L (3.5-5.1)
--- NOTE | 2017-03-17 16:35 | Progress Note ---
Subjective Date of Service: Mar 17, 2017. Subjective Pt evaluation today including: conversation w/ patient, physical exam, lab review, review of studies, review of inpatient medication list Saw/examined the patient in room 456 had multiple BMs with blood/blood clots States he's having diarrhea, but did not notice the blood - but nursing noted it multiple times started on Protonix drip Was given potassium He feels okay today - just tired Problem List Medical Problems: (1) Acute on chronic renal failure Status: Acute (2) MAGEN (acute kidney injury) Status: Acute (3) Altered mental status Status: Acute (4) Anasarca Status: Acute (5) Anasarca Status: Acute (6) Bilateral leg edema Status: Acute (7) CHF (congestive heart failure) Status: Acute (8) CHF (congestive heart failure) Status: Acute (9) Dehydration Status: Acute (10) Dyspnea on exertion Status: Acute (11) Elevated lactic acid level Status: Acute (12) Elevated troponin Status: Acute (13) Hepatic encephalopathy Status: Acute (14) Hypotension Status: Acute (15) Pulmonary edema Status: Acute (16) Renal failure Status: Acute (17) Right heart failure Status: Acute Review of Systems Constitutional: + weakness, No fever, No chills Respiratory: No shortness of breath Cardiac: No chest pain Abdomen: + nausea, + diarrhea, No pain, No vomiting, No constipation, No GI bleeding Heme: No abnormal bleeding/bruising Medications Current Inpatient Medications Medications (Trade) Dose Ordered Sig/Gin Route Start Time Stop Time Status Last Admin Dose Admin Acetaminophen (Tylenol Tab) 325 mg Q6H PRN PO 03/16/17 02:45 04/15/17 02:44 Insulin Aspart (novoLOG ASPART) SLIDING SCALE If C... ACHS SC 03/16/17 06:30 04/15/17 06:59 03/16/17 22:15 1 UNITS Glucose (Glucose 40% Gel) 15-30 GRAMS 15 GRAMS... UD PRN PO 03/16/17 02:45 04/15/17 02:44 Glucose (Glucose Chew Tab) 4-8 Tablets 4 Tabl... UD PRN PO 03/16/17 02:45 04/15/17 02:44 Dextrose (Dextrose 50% 50ML Syringe) 25-50ML OF 50% DW IV FOR... UD PRN IV 03/16/17 02:45 04/15/17 02:44 Glucagon (Glucagon Inj) 1 mg UD PRN SQ 03/16/17 02:45 04/15/17 02:44 Folic Acid (Folvite Tab) 1 mg DAILY PO 03/16/17 08:00 04/15/17 08:59 03/17/17 09:43 1 MG Metoprolol Succinate (Toprol Xl Tab) 12.5 mg DAILY PO 03/16/17 08:00 04/15/17 08:59 Pantoprazole Sodium (Protonix Tab) 40 mg DAILY PO 03/16/17 08:00 04/15/17 08:59 Future Hold 03/16/17 08:12 40 MG Ondansetron HCl (Zofran Inj) 4 mg Q6H PRN IV 03/16/17 02:45 04/15/17 02:44 03/16/17 19:58 4 MG Promethazine HCl 12.5 mg/Sodium Chloride 50.5 ml @ 204 mls/hr Q6H PRN IV 03/16/17 02:45 04/15/17 02:44 Hydromorphone HCl (Dilaudid Inj) 0.5 mg Q3H PRN IV 03/16/17 02:45 03/30/17 02:44 Tramadol HCl (Ultram Tab) 25 mg Q6H PRN PO 03/16/17 02:45 04/15/17 02:44 Lactulose/Sterile Water/Barcode Q8 TX 03/16/17 14:00 04/15/17 13:59 03/16/17 14:49 10 GM Miscellaneous (Unit Dose Compound) 1 ea Q8 PO 03/16/17 14:00 04/15/17 13:59 03/16/17 14:00 1 EA Albumin Human (Albumin 25%) 25 gm TID IV 03/16/17 14:00 03/19/17 13:59 03/17/17 14:23 25 GM Rifaximin (Xifaxan Tab) 550 mg BID PO 03/16/17 20:00 04/15/17 19:59 03/17/17 09:43 550 MG Pantoprazole Sodium 40 mg/ Dextrose 100 ml @ 20 mls/hr Q5H IV 03/16/17 22:15 04/15/17 22:14 03/17/17 12:34 20 MLS/HR Vancomycin HCl (Vancomycin Oral Soln) 125 mg QID PO 03/16/17 23:00 03/30/17 22:59 03/17/17 12:34 125 MG Raspberry (Raspberry Syrup 5ml Cup) 5 ml QID PO 03/16/17 23:00 03/30/17 22:59 03/17/17 12:34 5 ML Objective Vital Signs Date Time Temp Pulse Resp B/P (MAP) Pulse Ox O2 Delivery O2 Flow Rate FiO2 03/17/17 15:50 Room Air 03/17/17 15:26 36.6 92 20 94/60 (71) 95 Room Air 03/17/17 09:30 Room Air 03/17/17 07:07 36.6 83 18 96/53 (67) 98 CPAP 3.0 03/17/17 03:00 36.8 87 20 91/51 97 3.0 03/17/17 02:03 36.6 88 20 93/53 98 3.0 03/17/17 01:30 36.9 81 18 95/57 98 3.0 03/17/17 01:16 36.8 98 20 93/57 98 3.0 03/17/17 01:04 37.0 84 18 94/57 98 3.0 03/17/17 00:38 37.0 85 18 95/56 99 3.0 03/17/17 00:30 CPAP 3.0 03/17/17 00:03 36.9 93 20 95/65 (75) 97 CPAP 3.0 03/16/17 20:28 36.8 16 100/61 (74) 96 Room Air Physical Exam General Appearance: no apparent distress Respiratory/Chest: lungs clear, normal breath sounds, no respiratory distress, no accessory muscle use Cardiovascular: regular rate, rhythm, no edema, no murmur Abdomen: normal bowel sounds, non tender, soft, + distended (significant distention of the abdomen noted) Extremities: normal inspection, no pedal edema Neurologic/Psychiatric: no motor/sensory deficits, alert, normal mood/affect Laboratory Results Last 24 Hours Test 03/16/17 20:11 03/16/17 22:04 03/16/17 22:30 03/17/17 05:59 Bedside Glucose 224 mg/dl Hemoglobin 7.4 g/dL 7.9 g/dL Hematocrit 23.6 % 25.0 % Urine Random Sodium 41 mEq/L White Blood Count 6.04 K/uL Red Blood Count 2.94 M/uL Mean Corpuscular Volume 85.0 fL Mean Corpuscular Hemoglobin 26.9 pg Mean Corpuscular Hemoglobin Concent 31.6 g/dl Platelet Count 54 K/uL Mean Platelet Volume 9.4 fL Neutrophils (%) (Auto) 89.7 % Lymphocytes (%) (Auto) 3.6 % Monocytes (%) (Auto) 5.6 % Eosinophils (%) (Auto) 0.7 % Basophils (%) (Auto) 0.2 % Neutrophils # (Auto) 5.42 K/uL Lymphocytes # (Auto) 0.22 K/uL Monocytes # (Auto) 0.34 K/uL Eosinophils # (Auto) 0.04 K/uL Basophils # (Auto) 0.01 K/uL RDW Standard Deviation 58.1 fL RDW Coefficient of Variation 18.5 % Immature Granulocyte % (Auto) 0.2 % Immature Granulocyte # (Auto) 0.01 K/uL Hypersegmented Polys 1+ Anisocytosis PRESENT Ovalocytes 1+ Sodium Level 141 mmol/L Potassium Level 2.9 mmol/L Chloride Level 101 mmol/L Carbon Dioxide Level 30 mmol/L Anion Gap 10.0 mmol/L Blood Urea Nitrogen 82 mg/dl Creatinine 3.80 mg/dl Est Creatinine Clear Calc Drug Dose 15.8 ml/min Estimated GFR () 15.5 Estimated GFR (Non- 13.4 BUN/Creatinine Ratio 21.7 Random Glucose 160 mg/dl Calcium Level 8.3 mg/dl Ammonia 37.0 umol/L Test 03/17/17 07:38 03/17/17 15:43 Bedside Glucose 164 mg/dl Sodium Level 138 mmol/L Potassium Level 2.8 mmol/L Chloride Level 98 mmol/L Carbon Dioxide Level 27 mmol/L Anion Gap 13.0 mmol/L Blood Urea Nitrogen 81 mg/dl Creatinine 3.71 mg/dl Est Creatinine Clear Calc Drug Dose 16.2 ml/min Estimated GFR () 16.0 Estimated GFR (Non- 13.8 BUN/Creatinine Ratio 21.7 Random Glucose 189 mg/dl Calcium Level 7.9 mg/dl Assessment and Plan This is an 87 year old male with history of SHANE cirrhosis and recurrent ascites , CKD stage IV, DM2, COPD, Paroxysmal A. Fib presents with confusion, weakness, increased abdominal fluid, and excessive diarrhea SHANE cirrhosis Recurrent Ascites Hepatic Encephalopathy 03/17 appreciate GI and nephrology input continue Rifaximin may need paracentesis for now, holding diuretics and started albumin 03/16 patient has had recurrent ascites during previous admission, he required multiple paracentesis and his diuretic dose was increased at that time He states that since the discharge, he has been having diarrhea and some episodes of vomiting became confused and was brought to the ED from [facility] Noted to have worsening kidney function and elevated ammonia level Seems that he may have stopped taking his lactulose due to diarrhea for now, hold diuretics Lactulose enema if needed, depending on mental status Rifaximin started as per GI Abdominal U/S suggests moderate to large ascites - will need a therapeutic tap discussed with daughter during previous admission about hospice/palliative care and they were not ready - may need to address this again Diarrhea Hx. of C. Diff 03/17 positive for C. Diff and multiple diarrhea episodes started on a tapering vancomycin dose 03/16 patient has a history of C. Diff was treated for this previously diarrhea persists even without lactulose use checking C. diff and stool cultures Acute Kidney Injury superimposed on CKD stage IV patient with creatinine in the upper 2's during previous admission due to recurrent fluid-build up - required increased dose of diuretics unfortunately, possibly due to diarrhea and fluid loss - creatinine/kidney function worsened creatinine on admission >4 hold diuretics; one bag of fluids already given; albumin started nephrology consulted for further input Hx. of Myelodysplastic Syndrome Chronic Thrombocytopenia has chronic anemia due to the 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 will only transfuse if Hg < 7 due to liver cirrhosis, possible portal hypertension Currently Hgb is greater than 7 - we will monitor Monitor platelets - avoiding heparin Insulin Dependent DM2 well controlled; recent Ha1c = 6.2% sliding scale insulin placed Sick Sinus Syndrome s/p permanent pacemaker HTN monitor blood pressure b-noman continued for now Hx. of HOCM COPD no exacerbation DVT prophylaxis SCDs - secondary to thrombocytopenia DNR
[2017-03-17] MEDS ORDERED: POTASSIUM CHLORIDE 20 MEQ TABCR PO SCH (20:00)
[2017-03-18] MEDS: PANTOprazole INJ 40 MG in DEXTROSE 5% 100ML IV SCH ×4 (03:07→19:38)
[2017-03-18] MEDS: LACTULOSE SYRUP 200 GM, WATER, STERILE IRRIG 700 ML, BARCODE IDENTIFIER 1 EA PR SCH ×6 (05:31→21:08)
[2017-03-18] MEDS: UNIT DOSE COMPOUND PO SCH ×3 (05:31→21:08)
[2017-03-18 07:29] VITALS: BP 92/54; PULSE 72; TEMP 36.6; O2SAT 99
[2017-03-18 08:04] LABS: HEMATOCRIT 22.7 % (42-52); MEAN CELL VOLUME 84.7 fL (80-100); MEAN CORPUSCULAR HEMOGLOBIN 26.9 pg (25-34); MEAN CORPUSCULAR HGB CONC 31.7 g/dl (32-36); MEAN PLATELET VOLUME 9.3 fL (7.4-10.4); PLATELET COUNT 47 K/uL (130-400); RED BLOOD COUNT 2.68 M/uL (4.7-6.1)
[2017-03-18 08:06] LABS: BUN/CREATININE RATIO 22.2 (10-20); CALCIUM 8.1 mg/dl (8.5-10.1); CREATININE 3.62 mg/dl (0.60-1.40)
[2017-03-18 08:09] LABS: ALB/GLOB RATIO 1.2 (0.9-2)
[2017-03-18 08:25] LABS: COMPLETE YES; EOS % 1.5 %; IG% 0.6 %; LYMPH % 8.5 %; LYMPH ABS # 0.29 K/uL (1.2-3.4); MONO % 7.1 %; NEUT % 82.3 %
[2017-03-18 08:30] VITALS: O2SAT 99
[2017-03-18] MEDS ORDERED: POTASSIUM CHLORIDE 20 MEQ TABCR PO STA ×2 (08:30→13:36)
[2017-03-18] MEDS: INSULIN ASPART 100 UNITS/ML 3 ML PEN SC SCH ×4 (08:48→21:09)
[2017-03-18] MEDS: RASPBERRY SYRUP 5 ML UDP PO SCH ×4 (08:50→19:39)
[2017-03-18] MEDS: METOPROLOL SUCC 25MG EXT REL TAB PO SCH (08:50)
[2017-03-18] MEDS: RIFAXIMIN TAB 550 MG TAB PO SCH ×2 (08:50→19:39)
[2017-03-18] MEDS: VANCOMYCIN HCL 125 MG/2.5ML SOLN PO SCH ×4 (08:54→19:39)
[2017-03-18 09:31] VITALS: BP 102/60; PULSE 78; TEMP 36.7; O2SAT 98
--- NOTE | 2017-03-18 09:57 | Gastroenterology Progress Note ---
Progress Note Date of Service: Mar 18, 2017 Subjective Pt evaluation today including: conversation w/ patient, physical exam The patient seems to be in good spirits this morning. He does note having some bright red blood from rectum without dark sticky stool. He's unable to fully verbalize his bowel habits at this time. After long discussion the patient is now willing to undergo further evaluation with endoscopic procedures. Review of Systems Constitutional: No fever, No sweats, No fatigue Respiratory: No cough, No wheezing, No dyspnea at rest Cardiac: No chest pain, No PND, No palpitations Abdomen: No pain, No nausea Medications Current Inpatient Medications Medications (Trade) Dose Ordered Sig/Gin Route Start Time Stop Time Status Last Admin Dose Admin Acetaminophen (Tylenol Tab) 325 mg Q6H PRN PO 03/16/17 02:45 04/15/17 02:44 Insulin Aspart (novoLOG ASPART) SLIDING SCALE If C... ACHS SC 03/16/17 06:30 04/15/17 06:59 03/17/17 21:11 2 UNITS Glucose (Glucose 40% Gel) 15-30 GRAMS 15 GRAMS... UD PRN PO 03/16/17 02:45 04/15/17 02:44 Glucose (Glucose Chew Tab) 4-8 Tablets 4 Tabl... UD PRN PO 03/16/17 02:45 04/15/17 02:44 Dextrose (Dextrose 50% 50ML Syringe) 25-50ML OF 50% DW IV FOR... UD PRN IV 03/16/17 02:45 04/15/17 02:44 Glucagon (Glucagon Inj) 1 mg UD PRN SQ 03/16/17 02:45 04/15/17 02:44 Folic Acid (Folvite Tab) 1 mg DAILY PO 03/16/17 08:00 04/15/17 08:59 03/17/17 09:43 1 MG Metoprolol Succinate (Toprol Xl Tab) 12.5 mg DAILY PO 03/16/17 08:00 04/15/17 08:59 Pantoprazole Sodium (Protonix Tab) 40 mg DAILY PO 03/16/17 08:00 04/15/17 08:59 Future Hold 03/16/17 08:12 40 MG Ondansetron HCl (Zofran Inj) 4 mg Q6H PRN IV 03/16/17 02:45 04/15/17 02:44 03/16/17 19:58 4 MG Promethazine HCl 12.5 mg/Sodium Chloride 50.5 ml @ 204 mls/hr Q6H PRN IV 03/16/17 02:45 04/15/17 02:44 Hydromorphone HCl (Dilaudid Inj) 0.5 mg Q3H PRN IV 03/16/17 02:45 03/30/17 02:44 Tramadol HCl (Ultram Tab) 25 mg Q6H PRN PO 03/16/17 02:45 04/15/17 02:44 Lactulose/Sterile Water/Barcode Q8 RI 03/16/17 14:00 04/15/17 13:59 03/16/17 14:49 10 GM Miscellaneous (Unit Dose Compound) 1 ea Q8 PO 03/16/17 14:00 04/15/17 13:59 03/16/17 14:00 1 EA Albumin Human (Albumin 25%) 25 gm TID IV 03/16/17 14:00 03/19/17 13:59 03/17/17 19:58 25 GM Rifaximin (Xifaxan Tab) 550 mg BID PO 03/16/17 20:00 04/15/17 19:59 03/17/17 20:00 550 MG Pantoprazole Sodium 40 mg/ Dextrose 100 ml @ 20 mls/hr Q5H IV 03/16/17 22:15 04/15/17 22:14 03/18/17 03:07 20 MLS/HR Vancomycin HCl (Vancomycin Oral Soln) 125 mg QID PO 03/16/17 23:00 03/30/17 22:59 03/17/17 19:56 125 MG Raspberry (Raspberry Syrup 5ml Cup) 5 ml QID PO 03/16/17 23:00 03/30/17 22:59 03/17/17 19:56 5 ML Potassium Chloride (Klor-Con Tab) 60 meq BID PO 03/18/17 20:00 04/16/17 19:59 Objective Vital Signs Date Time Temp Pulse Resp B/P (MAP) Pulse Ox O2 Delivery O2 Flow Rate FiO2 03/18/17 09:31 36.7 78 20 102/60 (74) 98 03/18/17 07:29 36.6 72 20 92/54 (67) 99 03/18/17 00:00 CPAP 03/17/17 23:43 36.8 77 18 96/60 (72) 100 Room Air 03/17/17 22:00 Room Air 03/17/17 15:50 Room Air 03/17/17 15:26 36.6 92 20 94/60 (71) 95 Room Air Physical Exam General Appearance: no apparent distress Eyes: PERRL Neck: no JVD Respiratory/Chest: + decreased breath sounds Abdomen: non tender, + distended Laboratory Results Last 24 Hours Test 03/17/17 11:39 03/17/17 15:43 03/17/17 16:26 03/17/17 19:40 Bedside Glucose 173 mg/dl 197 mg/dl 260 mg/dl Sodium Level 138 mmol/L Potassium Level 2.8 mmol/L Chloride Level 98 mmol/L Carbon Dioxide Level 27 mmol/L Anion Gap 13.0 mmol/L Blood Urea Nitrogen 81 mg/dl Creatinine 3.71 mg/dl Est Creatinine Clear Calc Drug Dose 16.2 ml/min Estimated GFR () 16.0 Estimated GFR (Non- 13.8 BUN/Creatinine Ratio 21.7 Random Glucose 189 mg/dl Calcium Level 7.9 mg/dl Test 03/18/17 06:15 03/18/17 07:14 03/18/17 07:22 Stool Occult Blood POSITIVE Bedside Glucose 138 mg/dl White Blood Count 3.40 K/uL Red Blood Count 2.68 M/uL Hemoglobin 7.2 g/dL Hematocrit 22.7 % Mean Corpuscular Volume 84.7 fL Mean Corpuscular Hemoglobin 26.9 pg Mean Corpuscular Hemoglobin Concent 31.7 g/dl Platelet Count 47 K/uL Mean Platelet Volume 9.3 fL Neutrophils (%) (Auto) 82.3 % Lymphocytes (%) (Auto) 8.5 % Monocytes (%) (Auto) 7.1 % Eosinophils (%) (Auto) 1.5 % Basophils (%) (Auto) 0.0 % Neutrophils # (Auto) 2.80 K/uL Lymphocytes # (Auto) 0.29 K/uL Monocytes # (Auto) 0.24 K/uL Eosinophils # (Auto) 0.05 K/uL Basophils # (Auto) 0.00 K/uL RDW Standard Deviation 57.5 fL RDW Coefficient of Variation 18.4 % Immature Granulocyte % (Auto) 0.6 % Immature Granulocyte # (Auto) 0.02 K/uL Red Blood Cell Morphology Unremarkable Sodium Level 139 mmol/L Potassium Level 3.0 mmol/L Chloride Level 100 mmol/L Carbon Dioxide Level 30 mmol/L Anion Gap 9.0 mmol/L Blood Urea Nitrogen 80 mg/dl Creatinine 3.62 mg/dl Est Creatinine Clear Calc Drug Dose 16.6 ml/min Estimated GFR () 16.5 Estimated GFR (Non- 14.2 BUN/Creatinine Ratio 22.2 Random Glucose 131 mg/dl Calcium Level 8.1 mg/dl Total Bilirubin 1.1 mg/dl Aspartate Amino Transf (AST/SGOT) 18 U/L Alanine Aminotransferase (ALT/SGPT) 11 U/L Alkaline Phosphatase 45 U/L Total Protein 5.8 gm/dl Albumin 3.2 gm/dl Globulin 2.6 gm/dl Albumin/Globulin Ratio 1.2 Assessment and Plan Patient with a known history of cirrhosis thought to be related to fatty infiltration of liver. We did offer endoscopic evaluation several days ago due to the new-onset hematochezia. Several days ago he was not certain if he wanted to undergo any interventional evaluation. After a discussion with the patient he is now willing to undergo further evaluation with upper endoscopy and colonoscopy. Based on the nursing notes and description I suspect that there may be an anal rectal etiology to his new-onset hematochezia Recommendations Liquid diet today Bowel preparation to be written on Monday Upper endoscopy and colonoscopy to be arranged for Monday morning Please call with any questions or concerns
[2017-03-18] MEDS: ALBUMIN HUMAN 25% 12.5 GM/50 ML VIAL IV SCH ×3 (10:24→21:08)
[2017-03-18 13:07] LABS: HEMATOCRIT 22.1 % (42-52)
[2017-03-18 13:15] VITALS: BP 97/60; PULSE 96; TEMP 36.2; O2SAT 100
[2017-03-18 13:38] LABS: BUN/CREATININE RATIO 21.7 (10-20); CALCIUM 8.1 mg/dl (8.5-10.1); CREATININE 3.55 mg/dl (0.60-1.40); POTASSIUM 2.9 mmol/L (3.5-5.1)
--- NOTE | 2017-03-18 13:56 | Progress Note ---
Subjective Date of Service: Mar 18, 2017. Subjective Pt evaluation today including: conversation w/ patient, physical exam, lab review, review of studies, review of inpatient medication list Saw/examined the patient in room 456 States that he's still having diarrhea; with some blood mixed in Denies abdominal pain, does have some distention, but he does not have any pain Denies fevers/chills Problem List Medical Problems: (1) Acute on chronic renal failure Status: Acute (2) MAGEN (acute kidney injury) Status: Acute (3) Altered mental status Status: Acute (4) Anasarca Status: Acute (5) Anasarca Status: Acute (6) Bilateral leg edema Status: Acute (7) CHF (congestive heart failure) Status: Acute (8) CHF (congestive heart failure) Status: Acute (9) Dehydration Status: Acute (10) Dyspnea on exertion Status: Acute (11) Elevated lactic acid level Status: Acute (12) Elevated troponin Status: Acute (13) Hepatic encephalopathy Status: Acute (14) Hypotension Status: Acute (15) Pulmonary edema Status: Acute (16) Renal failure Status: Acute (17) Right heart failure Status: Acute Review of Systems Constitutional: No fever, No chills Respiratory: No shortness of breath Cardiac: No chest pain Abdomen: + diarrhea, + GI bleeding, No pain, No nausea, No vomiting, No constipation Medications Current Inpatient Medications Medications (Trade) Dose Ordered Sig/Gin Route Start Time Stop Time Status Last Admin Dose Admin Acetaminophen (Tylenol Tab) 325 mg Q6H PRN PO 03/16/17 02:45 04/15/17 02:44 Insulin Aspart (novoLOG ASPART) SLIDING SCALE If C... ACHS SC 03/16/17 06:30 04/15/17 06:59 03/18/17 12:53 1 UNITS Glucose (Glucose 40% Gel) 15-30 GRAMS 15 GRAMS... UD PRN PO 03/16/17 02:45 04/15/17 02:44 Glucose (Glucose Chew Tab) 4-8 Tablets 4 Tabl... UD PRN PO 03/16/17 02:45 04/15/17 02:44 Dextrose (Dextrose 50% 50ML Syringe) 25-50ML OF 50% DW IV FOR... UD PRN IV 03/16/17 02:45 04/15/17 02:44 Glucagon (Glucagon Inj) 1 mg UD PRN SQ 03/16/17 02:45 04/15/17 02:44 Folic Acid (Folvite Tab) 1 mg DAILY PO 03/16/17 08:00 04/15/17 08:59 03/18/17 08:49 1 MG Metoprolol Succinate (Toprol Xl Tab) 12.5 mg DAILY PO 03/16/17 08:00 04/15/17 08:59 Pantoprazole Sodium (Protonix Tab) 40 mg DAILY PO 03/16/17 08:00 04/15/17 08:59 Future Hold 03/16/17 08:12 40 MG Ondansetron HCl (Zofran Inj) 4 mg Q6H PRN IV 03/16/17 02:45 04/15/17 02:44 03/16/17 19:58 4 MG Promethazine HCl 12.5 mg/Sodium Chloride 50.5 ml @ 204 mls/hr Q6H PRN IV 03/16/17 02:45 04/15/17 02:44 Hydromorphone HCl (Dilaudid Inj) 0.5 mg Q3H PRN IV 03/16/17 02:45 03/30/17 02:44 Tramadol HCl (Ultram Tab) 25 mg Q6H PRN PO 03/16/17 02:45 04/15/17 02:44 Lactulose/Sterile Water/Barcode Q8 CO 03/16/17 14:00 04/15/17 13:59 03/16/17 14:49 10 GM Miscellaneous (Unit Dose Compound) 1 ea Q8 PO 03/16/17 14:00 04/15/17 13:59 03/16/17 14:00 1 EA Albumin Human (Albumin 25%) 25 gm TID IV 03/16/17 14:00 03/19/17 13:59 03/18/17 10:24 25 GM Rifaximin (Xifaxan Tab) 550 mg BID PO 03/16/17 20:00 04/15/17 19:59 03/18/17 08:50 550 MG Pantoprazole Sodium 40 mg/ Dextrose 100 ml @ 20 mls/hr Q5H IV 03/16/17 22:15 04/15/17 22:14 03/18/17 08:55 20 MLS/HR Vancomycin HCl (Vancomycin Oral Soln) 125 mg QID PO 03/16/17 23:00 03/30/17 22:59 03/18/17 12:51 125 MG Raspberry (Raspberry Syrup 5ml Cup) 5 ml QID PO 03/16/17 23:00 03/30/17 22:59 03/18/17 12:51 5 ML Potassium Chloride (Klor-Con Tab) 60 meq BID PO 03/18/17 20:00 04/16/17 19:59 Polyethylene Glycol/ Electrolytes (Golytely Soln) 16 dose TODAY@1800 PO 03/19/17 18:00 03/19/17 22:00 Objective Vital Signs Date Time Temp Pulse Resp B/P (MAP) Pulse Ox O2 Delivery O2 Flow Rate FiO2 03/18/17 13:15 36.2 96 20 97/60 (72) 100 03/18/17 09:31 36.7 78 20 102/60 (74) 98 03/18/17 07:29 36.6 72 20 92/54 (67) 99 03/18/17 00:00 CPAP 03/17/17 23:43 36.8 77 18 96/60 (72) 100 Room Air 03/17/17 22:00 Room Air 03/17/17 15:50 Room Air 03/17/17 15:26 36.6 92 20 94/60 (71) 95 Room Air Physical Exam General Appearance: no apparent distress Respiratory/Chest: lungs clear, normal breath sounds, no respiratory distress, no accessory muscle use Cardiovascular: regular rate, rhythm Abdomen: non tender, + distended Extremities: + pertinent finding (+1 pitting edema b/l LE) Neurologic/Psychiatric: no motor/sensory deficits, alert, normal mood/affect Laboratory Results Last 24 Hours Test 03/17/17 15:43 03/17/17 16:26 03/17/17 19:40 03/18/17 06:15 Sodium Level 138 mmol/L Potassium Level 2.8 mmol/L Chloride Level 98 mmol/L Carbon Dioxide Level 27 mmol/L Anion Gap 13.0 mmol/L Blood Urea Nitrogen 81 mg/dl Creatinine 3.71 mg/dl Est Creatinine Clear Calc Drug Dose 16.2 ml/min Estimated GFR () 16.0 Estimated GFR (Non- 13.8 BUN/Creatinine Ratio 21.7 Random Glucose 189 mg/dl Calcium Level 7.9 mg/dl Bedside Glucose 197 mg/dl 260 mg/dl Stool Occult Blood POSITIVE Test 03/18/17 07:14 03/18/17 07:22 03/18/17 12:44 Bedside Glucose 138 mg/dl White Blood Count 3.40 K/uL Red Blood Count 2.68 M/uL Hemoglobin 7.2 g/dL 7.1 g/dL Hematocrit 22.7 % 22.1 % Mean Corpuscular Volume 84.7 fL Mean Corpuscular Hemoglobin 26.9 pg Mean Corpuscular Hemoglobin Concent 31.7 g/dl Platelet Count 47 K/uL Mean Platelet Volume 9.3 fL Neutrophils (%) (Auto) 82.3 % Lymphocytes (%) (Auto) 8.5 % Monocytes (%) (Auto) 7.1 % Eosinophils (%) (Auto) 1.5 % Basophils (%) (Auto) 0.0 % Neutrophils # (Auto) 2.80 K/uL Lymphocytes # (Auto) 0.29 K/uL Monocytes # (Auto) 0.24 K/uL Eosinophils # (Auto) 0.05 K/uL Basophils # (Auto) 0.00 K/uL RDW Standard Deviation 57.5 fL RDW Coefficient of Variation 18.4 % Immature Granulocyte % (Auto) 0.6 % Immature Granulocyte # (Auto) 0.02 K/uL Red Blood Cell Morphology Unremarkable Sodium Level 139 mmol/L 136 mmol/L Potassium Level 3.0 mmol/L 2.9 mmol/L Chloride Level 100 mmol/L 97 mmol/L Carbon Dioxide Level 30 mmol/L 28 mmol/L Anion Gap 9.0 mmol/L 10.0 mmol/L Blood Urea Nitrogen 80 mg/dl 77 mg/dl Creatinine 3.62 mg/dl 3.55 mg/dl Est Creatinine Clear Calc Drug Dose 16.6 ml/min 16.9 ml/min Estimated GFR () 16.5 16.9 Estimated GFR (Non- 14.2 14.6 BUN/Creatinine Ratio 22.2 21.7 Random Glucose 131 mg/dl 191 mg/dl Calcium Level 8.1 mg/dl 8.1 mg/dl Total Bilirubin 1.1 mg/dl Aspartate Amino Transf (AST/SGOT) 18 U/L Alanine Aminotransferase (ALT/SGPT) 11 U/L Alkaline Phosphatase 45 U/L Total Protein 5.8 gm/dl Albumin 3.2 gm/dl Globulin 2.6 gm/dl Albumin/Globulin Ratio 1.2 Assessment and Plan This is an 87 year old male with history of SHANE cirrhosis and recurrent ascites , CKD stage IV, DM2, COPD, Paroxysmal A. Fib presents with confusion, weakness, increased abdominal fluid, and excessive diarrhea SHANE cirrhosis Recurrent Ascites Hepatic Encephalopathy - resolved 03/18 appreciate GI and nephrology input for now, started on albumin possible paracentesis? states there is no pain at this time started on Rifaximin holding diuretics due to intravascular depletion/kidney injury 03/17 appreciate GI and nephrology input continue Rifaximin may need paracentesis for now, holding diuretics and started albumin 03/16 patient has had recurrent ascites during previous admission, he required multiple paracentesis and his diuretic dose was increased at that time He states that since the discharge, he has been having diarrhea and some episodes of vomiting became confused and was brought to the ED from [facility] Noted to have worsening kidney function and elevated ammonia level Seems that he may have stopped taking his lactulose due to diarrhea for now, hold diuretics Lactulose enema if needed, depending on mental status Rifaximin started as per GI Abdominal U/S suggests moderate to large ascites - will need a therapeutic tap discussed with daughter during previous admission about hospice/palliative care and they were not ready - may need to address this again Diarrhea leading to Hypokalemia Hx. of C. Diff 03/18 continues to have diarrhea hypokalemia is persistent; adding both IV and oral supplementation continue tapering dose of Vancomycin as per GI 03/17 positive for C. Diff and multiple diarrhea episodes started on a tapering vancomycin dose 03/16 patient has a history of C. Diff was treated for this previously diarrhea persists even without lactulose use checking C. diff and stool cultures GI bleed, likely Lower had been having bloody stools possibly rectal injury plan is for both an EGD and colonoscopy in AM as per GI transfuse if Hgb < 7 Acute Kidney Injury superimposed on CKD stage IV patient with creatinine in the upper 2's during previous admission due to recurrent fluid-build up - required increased dose of diuretics unfortunately, possibly due to diarrhea and fluid loss - creatinine/kidney function worsened creatinine on admission >4 hold diuretics; one bag of fluids already given; albumin started nephrology consulted for further input Hx. of Myelodysplastic Syndrome Chronic Thrombocytopenia has chronic anemia due to the 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 will only transfuse if Hg < 7 due to liver cirrhosis, possible portal hypertension Currently Hgb is greater than 7 - we will monitor Monitor platelets - avoiding heparin Insulin Dependent DM2 well controlled; recent Ha1c = 6.2% sliding scale insulin placed Sick Sinus Syndrome s/p permanent pacemaker HTN monitor blood pressure b-noman continued for now Hx. of HOCM COPD no exacerbation DVT prophylaxis SCDs - secondary to thrombocytopenia DNR
[2017-03-18] MEDS: POTASSIUM CHLR 10 MEQ / WTR 10 MEQ in PREMIXED WATER 100 ML IV SCH ×4 (14:41→19:38)
[2017-03-18] MEDS: POTASSIUM CHLORIDE 20 MEQ TABCR PO SCH (19:39)
[2017-03-19] VITALS (7 sets, daily range): BP systolic 91–109; BP diastolic 57–71; PULSE 74–91; TEMP 36.5–36.8; O2SAT 96–99
[2017-03-19] MEDS: PANTOprazole INJ 40 MG in DEXTROSE 5% 100ML IV SCH ×5 (00:34→19:27)
[2017-03-19] MEDS: UNIT DOSE COMPOUND PO SCH ×3 (06:00→22:00)
[2017-03-19] MEDS: LACTULOSE SYRUP 200 GM, WATER, STERILE IRRIG 700 ML, BARCODE IDENTIFIER 1 EA PR SCH ×6 (06:00→22:00)
[2017-03-19] MEDS: INSULIN ASPART 100 UNITS/ML 3 ML PEN SC SCH ×4 (06:30→22:39)
[2017-03-19 07:06] LABS: HEMATOCRIT 22.1 % (42-52); MEAN CELL VOLUME 84.7 fL (80-100); MEAN CORPUSCULAR HEMOGLOBIN 27.6 pg (25-34); MEAN CORPUSCULAR HGB CONC 32.6 g/dl (32-36); RED BLOOD COUNT 2.61 M/uL (4.7-6.1)
[2017-03-19 07:09] LABS: MEAN PLATELET VOLUME 10.1 fL (7.4-10.4); PLATELET COUNT 53 K/uL (130-400)
[2017-03-19 07:43] LABS: BUN/CREATININE RATIO 21.8 (10-20); CREATININE 3.25 mg/dl (0.60-1.40); POTASSIUM 3.8 mmol/L (3.5-5.1)
[2017-03-19] MEDS: METOPROLOL SUCC 25MG EXT REL TAB PO SCH (08:00)
[2017-03-19] MEDS: ALBUMIN HUMAN 25% 12.5 GM/50 ML VIAL IV SCH (08:39)
[2017-03-19] MEDS: RIFAXIMIN TAB 550 MG TAB PO SCH ×2 (08:51→19:44)
[2017-03-19] MEDS: POTASSIUM CHLORIDE 20 MEQ TABCR PO SCH ×2 (08:51→19:45)
[2017-03-19] MEDS: RASPBERRY SYRUP 5 ML UDP PO SCH ×4 (08:52→19:45)
[2017-03-19] MEDS: VANCOMYCIN HCL 125 MG/2.5ML SOLN PO SCH ×4 (08:52→19:45)
[2017-03-19 09:07] LABS: ANISOCYTOSIS PRESENT; BASO % 0.3 %; BASO ABS # 0.01 K/uL (0-0.2); COMPLETE YES; EOS % 2.9 %; IG% 0.3 %; LYMPH % 10.3 %; LYMPH ABS # 0.32 K/uL (1.2-3.4); MONO % 9.4 %; NEUT % 76.8 %; OVALOCYTES 1+
--- NOTE | 2017-03-19 09:54 | Gastroenterology Progress Note ---
Progress Note Date of Service: Mar 19, 2017 Subjective Pt evaluation today including: conversation w/ patient The patient denies having any hematochezia overnight. He notes having no new problems but does admit to some abdominal distention. In the past he's been reluctant to undergo diagnostic and therapeutic paracentesis. Review of Systems Constitutional: + fatigue, No fever, No sweats Respiratory: No cough, No wheezing Cardiac: No chest pain, No palpitations Medications Current Inpatient Medications Medications (Trade) Dose Ordered Sig/Gin Route Start Time Stop Time Status Last Admin Dose Admin Acetaminophen (Tylenol Tab) 325 mg Q6H PRN PO 03/16/17 02:45 04/15/17 02:44 Insulin Aspart (novoLOG ASPART) SLIDING SCALE If C... ACHS SC 03/16/17 06:30 04/15/17 06:59 03/18/17 12:53 1 UNITS Glucose (Glucose 40% Gel) 15-30 GRAMS 15 GRAMS... UD PRN PO 03/16/17 02:45 04/15/17 02:44 Glucose (Glucose Chew Tab) 4-8 Tablets 4 Tabl... UD PRN PO 03/16/17 02:45 04/15/17 02:44 Dextrose (Dextrose 50% 50ML Syringe) 25-50ML OF 50% DW IV FOR... UD PRN IV 03/16/17 02:45 04/15/17 02:44 Glucagon (Glucagon Inj) 1 mg UD PRN SQ 03/16/17 02:45 04/15/17 02:44 Folic Acid (Folvite Tab) 1 mg DAILY PO 03/16/17 08:00 04/15/17 08:59 03/19/17 08:52 1 MG Metoprolol Succinate (Toprol Xl Tab) 12.5 mg DAILY PO 03/16/17 08:00 04/15/17 08:59 Pantoprazole Sodium (Protonix Tab) 40 mg DAILY PO 03/16/17 08:00 04/15/17 08:59 Future Hold 03/16/17 08:12 40 MG Ondansetron HCl (Zofran Inj) 4 mg Q6H PRN IV 03/16/17 02:45 04/15/17 02:44 03/16/17 19:58 4 MG Promethazine HCl 12.5 mg/Sodium Chloride 50.5 ml @ 204 mls/hr Q6H PRN IV 03/16/17 02:45 04/15/17 02:44 Hydromorphone HCl (Dilaudid Inj) 0.5 mg Q3H PRN IV 03/16/17 02:45 03/30/17 02:44 Tramadol HCl (Ultram Tab) 25 mg Q6H PRN PO 03/16/17 02:45 04/15/17 02:44 Lactulose/Sterile Water/Barcode Q8 NM 03/16/17 14:00 04/15/17 13:59 03/16/17 14:49 10 GM Miscellaneous (Unit Dose Compound) 1 ea Q8 PO 03/16/17 14:00 04/15/17 13:59 03/16/17 14:00 1 EA Albumin Human (Albumin 25%) 25 gm TID IV 03/16/17 14:00 03/19/17 13:59 03/19/17 08:39 25 GM Rifaximin (Xifaxan Tab) 550 mg BID PO 03/16/17 20:00 04/15/17 19:59 03/19/17 08:51 550 MG Pantoprazole Sodium 40 mg/ Dextrose 100 ml @ 20 mls/hr Q5H IV 03/16/17 22:15 04/15/17 22:14 03/19/17 04:54 20 MLS/HR Vancomycin HCl (Vancomycin Oral Soln) 125 mg QID PO 03/16/17 23:00 03/30/17 22:59 03/19/17 08:52 125 MG Raspberry (Raspberry Syrup 5ml Cup) 5 ml QID PO 03/16/17 23:00 03/30/17 22:59 03/19/17 08:52 5 ML Potassium Chloride (Klor-Con Tab) 60 meq BID PO 03/18/17 20:00 04/16/17 19:59 03/19/17 08:51 60 MEQ Polyethylene Glycol/ Electrolytes (Golytely Soln) 16 dose TODAY@1800 PO 03/19/17 18:00 03/19/17 22:00 Objective Vital Signs Date Time Temp Pulse Resp B/P (MAP) Pulse Ox O2 Delivery O2 Flow Rate FiO2 03/19/17 08:50 36.5 91 20 94/61 (72) 96 Room Air 03/19/17 07:24 36.6 80 20 99/63 (75) 97 Room Air 03/19/17 00:30 CPAP 2.0 03/19/17 00:00 36.8 74 18 91/57 (68) 99 CPAP 03/18/17 16:00 Room Air 03/18/17 13:15 36.2 96 20 97/60 (72) 100 Physical Exam General Appearance: no apparent distress Eyes: PERRL Respiratory/Chest: + decreased breath sounds Cardiovascular: no JVD Abdomen: soft, + distended (consistent with ascites) Neurologic/Psych: oriented x 3 Laboratory Results Last 24 Hours Test 03/18/17 11:01 03/18/17 12:44 03/18/17 16:10 03/18/17 20:10 Bedside Glucose 220 mg/dl 162 mg/dl 200 mg/dl Hemoglobin 7.1 g/dL Hematocrit 22.1 % Sodium Level 136 mmol/L Potassium Level 2.9 mmol/L Chloride Level 97 mmol/L Carbon Dioxide Level 28 mmol/L Anion Gap 10.0 mmol/L Blood Urea Nitrogen 77 mg/dl Creatinine 3.55 mg/dl Est Creatinine Clear Calc Drug Dose 16.9 ml/min Estimated GFR () 16.9 Estimated GFR (Non- 14.6 BUN/Creatinine Ratio 21.7 Random Glucose 191 mg/dl Calcium Level 8.1 mg/dl Test 03/19/17 06:42 03/19/17 07:41 White Blood Count 3.10 K/uL Red Blood Count 2.61 M/uL Hemoglobin 7.2 g/dL Hematocrit 22.1 % Mean Corpuscular Volume 84.7 fL Mean Corpuscular Hemoglobin 27.6 pg Mean Corpuscular Hemoglobin Concent 32.6 g/dl Platelet Count 53 K/uL Mean Platelet Volume 10.1 fL Neutrophils (%) (Auto) 76.8 % Lymphocytes (%) (Auto) 10.3 % Monocytes (%) (Auto) 9.4 % Eosinophils (%) (Auto) 2.9 % Basophils (%) (Auto) 0.3 % Neutrophils # (Auto) 2.38 K/uL Lymphocytes # (Auto) 0.32 K/uL Monocytes # (Auto) 0.29 K/uL Eosinophils # (Auto) 0.09 K/uL Basophils # (Auto) 0.01 K/uL RDW Standard Deviation 55.8 fL RDW Coefficient of Variation 18.1 % Immature Granulocyte % (Auto) 0.3 % Immature Granulocyte # (Auto) 0.01 K/uL Anisocytosis PRESENT Ovalocytes 1+ Sodium Level 136 mmol/L Potassium Level 3.8 mmol/L Chloride Level 100 mmol/L Carbon Dioxide Level 29 mmol/L Anion Gap 8.0 mmol/L Blood Urea Nitrogen 71 mg/dl Creatinine 3.25 mg/dl Est Creatinine Clear Calc Drug Dose 18.5 ml/min Estimated GFR () 18.8 Estimated GFR (Non- 16.2 BUN/Creatinine Ratio 21.8 Random Glucose 128 mg/dl Calcium Level 8.0 mg/dl Bedside Glucose 139 mg/dl Assessment and Plan Patient with a known history of cirrhosis thought to be related to fatty infiltration of liver. We did offer endoscopic evaluation several days ago due to the new-onset hematochezia. Several days ago he was not certain if he wanted to undergo any interventional evaluation. After a discussion with the patient he is now willing to undergo further evaluation with upper endoscopy and colonoscopy. Based on the nursing notes and description I suspect that there may be an anal rectal etiology to his new-onset hematochezia Recommendations Liquid diet today Bowel preparation to be written on Monday Upper endoscopy and colonoscopy to be arranged for Monday morning Please call with any questions or concerns
--- NOTE | 2017-03-19 12:55 | Nephrology Progress Note ---
Nephrology Progress Note Date of Service: Mar 19, 2017. Subjective had BRBPR late last week; starting prep for EGD/colo. on clears and tolerating ; denies dyspnea; was on 02 w/ cpap. no sense of worsening fluid load; voiding w/o effort Objective Date Time Temp Pulse Resp B/P (MAP) Pulse Ox O2 Delivery O2 Flow Rate FiO2 03/19/17 11:15 36.6 90 20 104/71 (82) 99 Room Air 03/19/17 08:50 36.5 91 20 94/61 (72) 96 Room Air 03/19/17 07:24 36.6 80 20 99/63 (75) 97 Room Air 03/19/17 00:30 CPAP 2.0 03/19/17 00:00 36.8 74 18 91/57 (68) 99 CPAP 03/18/17 16:00 Room Air 03/18/17 13:15 36.2 96 20 97/60 (72) 100 Physical Exam: General Appearance: WD/WN, no apparent distress, + obese, + pertinent finding ( on RA, oriented to self/ place, up in chair ) Eyes: EOMI ENT: normal ENT inspection Neck: supple Respiratory/Chest: +++ decreased breath sounds, + crackles (bibasilar and fine) Cardiovascular: + irregularly irregular, + pertinent finding (edema 1-2+ distal BLE/pedal) Abdomen: normal bowel sounds, non tender, soft, + pertinent finding Extremities: + pedal edema (as above) Neurologic/Psych: alert, normal mood/affect, oriented x 3 (some limited recall as above) Skin: no jaundice, warm/dry, no rash Current Inpatient Medications Medications (Trade) Dose Ordered Sig/Gin Route Start Time Stop Time Status Last Admin Dose Admin Acetaminophen (Tylenol Tab) 325 mg Q6H PRN PO 03/16/17 02:45 04/15/17 02:44 Insulin Aspart (novoLOG ASPART) SLIDING SCALE If C... ACHS SC 03/16/17 06:30 04/15/17 06:59 03/18/17 12:53 1 UNITS Glucose (Glucose 40% Gel) 15-30 GRAMS 15 GRAMS... UD PRN PO 03/16/17 02:45 04/15/17 02:44 Glucose (Glucose Chew Tab) 4-8 Tablets 4 Tabl... UD PRN PO 03/16/17 02:45 04/15/17 02:44 Dextrose (Dextrose 50% 50ML Syringe) 25-50ML OF 50% DW IV FOR... UD PRN IV 03/16/17 02:45 04/15/17 02:44 Glucagon (Glucagon Inj) 1 mg UD PRN SQ 03/16/17 02:45 04/15/17 02:44 Folic Acid (Folvite Tab) 1 mg DAILY PO 03/16/17 08:00 04/15/17 08:59 03/19/17 08:52 1 MG Metoprolol Succinate (Toprol Xl Tab) 12.5 mg DAILY PO 03/16/17 08:00 04/15/17 08:59 Pantoprazole Sodium (Protonix Tab) 40 mg DAILY PO 03/16/17 08:00 04/15/17 08:59 Future Hold 03/16/17 08:12 40 MG Ondansetron HCl (Zofran Inj) 4 mg Q6H PRN IV 03/16/17 02:45 04/15/17 02:44 03/16/17 19:58 4 MG Promethazine HCl 12.5 mg/Sodium Chloride 50.5 ml @ 204 mls/hr Q6H PRN IV 03/16/17 02:45 04/15/17 02:44 Hydromorphone HCl (Dilaudid Inj) 0.5 mg Q3H PRN IV 03/16/17 02:45 03/30/17 02:44 Tramadol HCl (Ultram Tab) 25 mg Q6H PRN PO 03/16/17 02:45 04/15/17 02:44 Lactulose/Sterile Water/Barcode Q8 [place] 03/16/17 14:00 04/15/17 13:59 03/16/17 14:49 10 GM Miscellaneous (Unit Dose Compound) 1 ea Q8 PO 03/16/17 14:00 04/15/17 13:59 03/16/17 14:00 1 EA Albumin Human (Albumin 25%) 25 gm TID IV 03/16/17 14:00 03/19/17 13:59 03/19/17 08:39 25 GM Rifaximin (Xifaxan Tab) 550 mg BID PO 03/16/17 20:00 04/15/17 19:59 03/19/17 08:51 550 MG Pantoprazole Sodium 40 mg/ Dextrose 100 ml @ 20 mls/hr Q5H IV 03/16/17 22:15 04/15/17 22:14 03/19/17 09:54 20 MLS/HR Vancomycin HCl (Vancomycin Oral Soln) 125 mg QID PO 03/16/17 23:00 03/30/17 22:59 03/19/17 12:12 125 MG Raspberry (Raspberry Syrup 5ml Cup) 5 ml QID PO 03/16/17 23:00 03/30/17 22:59 03/19/17 12:12 5 ML Potassium Chloride (Klor-Con Tab) 60 meq BID PO 03/18/17 20:00 04/16/17 19:59 03/19/17 08:51 60 MEQ Polyethylene Glycol/ Electrolytes (Golytely Soln) 16 dose TODAY@1800 PO 03/19/17 18:00 03/19/17 22:00 Last 24 Hours Test 03/18/17 16:10 03/18/17 20:10 03/19/17 06:42 03/19/17 07:41 Bedside Glucose 162 mg/dl 200 mg/dl 139 mg/dl White Blood Count 3.10 K/uL Red Blood Count 2.61 M/uL Hemoglobin 7.2 g/dL Hematocrit 22.1 % Mean Corpuscular Volume 84.7 fL Mean Corpuscular Hemoglobin 27.6 pg Mean Corpuscular Hemoglobin Concent 32.6 g/dl Platelet Count 53 K/uL Mean Platelet Volume 10.1 fL Neutrophils (%) (Auto) 76.8 % Lymphocytes (%) (Auto) 10.3 % Monocytes (%) (Auto) 9.4 % Eosinophils (%) (Auto) 2.9 % Basophils (%) (Auto) 0.3 % Neutrophils # (Auto) 2.38 K/uL Lymphocytes # (Auto) 0.32 K/uL Monocytes # (Auto) 0.29 K/uL Eosinophils # (Auto) 0.09 K/uL Basophils # (Auto) 0.01 K/uL RDW Standard Deviation 55.8 fL RDW Coefficient of Variation 18.1 % Immature Granulocyte % (Auto) 0.3 % Immature Granulocyte # (Auto) 0.01 K/uL Anisocytosis PRESENT Ovalocytes 1+ Sodium Level 136 mmol/L Potassium Level 3.8 mmol/L Chloride Level 100 mmol/L Carbon Dioxide Level 29 mmol/L Anion Gap 8.0 mmol/L Blood Urea Nitrogen 71 mg/dl Creatinine 3.25 mg/dl Est Creatinine Clear Calc Drug Dose 18.5 ml/min Estimated GFR () 18.8 Estimated GFR (Non- 16.2 BUN/Creatinine Ratio 21.8 Random Glucose 128 mg/dl Calcium Level 8.0 mg/dl Test 03/19/17 11:39 Bedside Glucose 192 mg/dl Assessment & Plan 87 y/o M w/ 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 His diuretics were held; he is getting tx for hypokalemia again this am; he MAGEN on CKD 4/5, slightly improved -likely prerenal in setting of obligate aggressive diuretics; nothing to suggest interstitial nephritis or GN. responding to gentle albumin -no acute indication for dialysis; discussed dialysis w/ pt >> he understands he is a poor candidate, that tx not likely to improve quality of life and declines therapy should need arise -cont 25% albumin 25 gm tid -cont to hold diuretics and use prn dyspnea only -recheck bmp 1500 ordered -admission urine sediment bland Hypokalemia -3.8 this am; getting relatively large doses given his poor renal function in setting of diarrhea; cont bid 60 mEq po but monitor closely -resupplement po if possible based on labs this pm Ascites and cirrhosis, w/ worsening renal failure, elevated lactate -recommend diagnostic paracentesis if possible -f/u GI recs for xifaxan therapy >2 gm daily Na diet po; limit po fluids when not on fluid only diet to 1.8L -blood pressure not unexpected w/ his comorbidities C diff colitis and emesis per primary service Appreciate consult; will follow with you. Care coordinated w/ Dr. Saleh
--- NOTE | 2017-03-19 14:48 | Progress Note ---
Subjective Date of Service: Mar 19, 2017. Subjective Pt evaluation today including: conversation w/ patient, physical exam, lab review, review of studies, review of inpatient medication list Saw/examined the patient in room 456 He states that his diarrhea is slowing down Denies abdominal pain Problem List Medical Problems: (1) Acute on chronic renal failure Status: Acute (2) MAGEN (acute kidney injury) Status: Acute (3) Altered mental status Status: Acute (4) Anasarca Status: Acute (5) Anasarca Status: Acute (6) Bilateral leg edema Status: Acute (7) CHF (congestive heart failure) Status: Acute (8) CHF (congestive heart failure) Status: Acute (9) Dehydration Status: Acute (10) Dyspnea on exertion Status: Acute (11) Elevated lactic acid level Status: Acute (12) Elevated troponin Status: Acute (13) Hepatic encephalopathy Status: Acute (14) Hypotension Status: Acute (15) Pulmonary edema Status: Acute (16) Renal failure Status: Acute (17) Right heart failure Status: Acute Review of Systems Constitutional: No fever, No chills Abdomen: + diarrhea, + GI bleeding, No pain, No nausea, No vomiting, No constipation Medications Current Inpatient Medications Medications (Trade) Dose Ordered Sig/Gin Route Start Time Stop Time Status Last Admin Dose Admin Acetaminophen (Tylenol Tab) 325 mg Q6H PRN PO 03/16/17 02:45 04/15/17 02:44 Insulin Aspart (novoLOG ASPART) SLIDING SCALE If C... ACHS SC 03/16/17 06:30 04/15/17 06:59 03/18/17 12:53 1 UNITS Glucose (Glucose 40% Gel) 15-30 GRAMS 15 GRAMS... UD PRN PO 03/16/17 02:45 04/15/17 02:44 Glucose (Glucose Chew Tab) 4-8 Tablets 4 Tabl... UD PRN PO 03/16/17 02:45 04/15/17 02:44 Dextrose (Dextrose 50% 50ML Syringe) 25-50ML OF 50% DW IV FOR... UD PRN IV 03/16/17 02:45 04/15/17 02:44 Glucagon (Glucagon Inj) 1 mg UD PRN SQ 03/16/17 02:45 04/15/17 02:44 Folic Acid (Folvite Tab) 1 mg DAILY PO 03/16/17 08:00 04/15/17 08:59 03/19/17 08:52 1 MG Metoprolol Succinate (Toprol Xl Tab) 12.5 mg DAILY PO 03/16/17 08:00 04/15/17 08:59 Pantoprazole Sodium (Protonix Tab) 40 mg DAILY PO 03/16/17 08:00 04/15/17 08:59 Future Hold 03/16/17 08:12 40 MG Ondansetron HCl (Zofran Inj) 4 mg Q6H PRN IV 03/16/17 02:45 04/15/17 02:44 03/16/17 19:58 4 MG Promethazine HCl 12.5 mg/Sodium Chloride 50.5 ml @ 204 mls/hr Q6H PRN IV 03/16/17 02:45 04/15/17 02:44 Hydromorphone HCl (Dilaudid Inj) 0.5 mg Q3H PRN IV 03/16/17 02:45 03/30/17 02:44 Tramadol HCl (Ultram Tab) 25 mg Q6H PRN PO 03/16/17 02:45 04/15/17 02:44 Lactulose/Sterile Water/Barcode Q8 [place] 03/16/17 14:00 04/15/17 13:59 03/16/17 14:49 10 GM Miscellaneous (Unit Dose Compound) 1 ea Q8 PO 03/16/17 14:00 04/15/17 13:59 03/16/17 14:00 1 EA Rifaximin (Xifaxan Tab) 550 mg BID PO 03/16/17 20:00 04/15/17 19:59 03/19/17 08:51 550 MG Pantoprazole Sodium 40 mg/ Dextrose 100 ml @ 20 mls/hr Q5H IV 03/16/17 22:15 04/15/17 22:14 03/19/17 14:25 20 MLS/HR Vancomycin HCl (Vancomycin Oral Soln) 125 mg QID PO 03/16/17 23:00 03/30/17 22:59 03/19/17 12:12 125 MG Raspberry (Raspberry Syrup 5ml Cup) 5 ml QID PO 03/16/17 23:00 03/30/17 22:59 03/19/17 12:12 5 ML Potassium Chloride (Klor-Con Tab) 60 meq BID PO 03/18/17 20:00 04/16/17 19:59 03/19/17 08:51 60 MEQ Polyethylene Glycol/ Electrolytes (Golytely Soln) 16 dose TODAY@1800 PO 03/19/17 18:00 03/19/17 22:00 Objective Vital Signs Date Time Temp Pulse Resp B/P (MAP) Pulse Ox O2 Delivery O2 Flow Rate FiO2 03/19/17 11:15 36.6 90 20 104/71 (82) 99 Room Air 03/19/17 08:50 36.5 91 20 94/61 (72) 96 Room Air 03/19/17 07:24 36.6 80 20 99/63 (75) 97 Room Air 03/19/17 00:30 CPAP 2.0 03/19/17 00:00 36.8 74 18 91/57 (68) 99 CPAP 03/18/17 16:00 Room Air Physical Exam General Appearance: no apparent distress Respiratory/Chest: no respiratory distress, no accessory muscle use Cardiovascular: regular rate, rhythm Abdomen: non tender, + distended Extremities: + pertinent finding (+1 pitting edema b/l LE) Laboratory Results Last 24 Hours Test 03/18/17 16:10 03/18/17 20:10 03/19/17 06:42 03/19/17 07:41 Bedside Glucose 162 mg/dl 200 mg/dl 139 mg/dl White Blood Count 3.10 K/uL Red Blood Count 2.61 M/uL Hemoglobin 7.2 g/dL Hematocrit 22.1 % Mean Corpuscular Volume 84.7 fL Mean Corpuscular Hemoglobin 27.6 pg Mean Corpuscular Hemoglobin Concent 32.6 g/dl Platelet Count 53 K/uL Mean Platelet Volume 10.1 fL Neutrophils (%) (Auto) 76.8 % Lymphocytes (%) (Auto) 10.3 % Monocytes (%) (Auto) 9.4 % Eosinophils (%) (Auto) 2.9 % Basophils (%) (Auto) 0.3 % Neutrophils # (Auto) 2.38 K/uL Lymphocytes # (Auto) 0.32 K/uL Monocytes # (Auto) 0.29 K/uL Eosinophils # (Auto) 0.09 K/uL Basophils # (Auto) 0.01 K/uL RDW Standard Deviation 55.8 fL RDW Coefficient of Variation 18.1 % Immature Granulocyte % (Auto) 0.3 % Immature Granulocyte # (Auto) 0.01 K/uL Anisocytosis PRESENT Ovalocytes 1+ Sodium Level 136 mmol/L Potassium Level 3.8 mmol/L Chloride Level 100 mmol/L Carbon Dioxide Level 29 mmol/L Anion Gap 8.0 mmol/L Blood Urea Nitrogen 71 mg/dl Creatinine 3.25 mg/dl Est Creatinine Clear Calc Drug Dose 18.5 ml/min Estimated GFR () 18.8 Estimated GFR (Non- 16.2 BUN/Creatinine Ratio 21.8 Random Glucose 128 mg/dl Calcium Level 8.0 mg/dl Test 03/19/17 11:39 Bedside Glucose 192 mg/dl Assessment and Plan This is an 87 year old male with history of SHANE cirrhosis and recurrent ascites , CKD stage IV, DM2, COPD, Paroxysmal A. Fib presents with confusion, weakness, increased abdominal fluid, and excessive diarrhea SHANE cirrhosis Recurrent Ascites Hepatic Encephalopathy - resolved 03/19 plan is for continued albumin, hold diuretics colonoscopy/EGD in AM to evaluate for GI bleeding/cirrhosis continue electrolyte replacement 03/18 appreciate GI and nephrology input for now, started on albumin possible paracentesis? states there is no pain at this time started on Rifaximin holding diuretics due to intravascular depletion/kidney injury 03/17 appreciate GI and nephrology input continue Rifaximin may need paracentesis for now, holding diuretics and started albumin 03/16 patient has had recurrent ascites during previous admission, he required multiple paracentesis and his diuretic dose was increased at that time He states that since the discharge, he has been having diarrhea and some episodes of vomiting became confused and was brought to the ED from [facility] Noted to have worsening kidney function and elevated ammonia level Seems that he may have stopped taking his lactulose due to diarrhea for now, hold diuretics Lactulose enema if needed, depending on mental status Rifaximin started as per GI Abdominal U/S suggests moderate to large ascites - will need a therapeutic tap discussed with daughter during previous admission about hospice/palliative care and they were not ready - may need to address this again Diarrhea leading to Hypokalemia Hx. of C. Diff 03/18 continues to have diarrhea hypokalemia is persistent; adding both IV and oral supplementation continue tapering dose of Vancomycin as per GI 03/17 positive for C. Diff and multiple diarrhea episodes started on a tapering vancomycin dose 03/16 patient has a history of C. Diff was treated for this previously diarrhea persists even without lactulose use checking C. diff and stool cultures GI bleed, likely Lower had been having bloody stools possibly rectal injury plan is for both an EGD and colonoscopy in AM as per GI transfuse if Hgb < 7 Acute Kidney Injury superimposed on CKD stage IV patient with creatinine in the upper 2's during previous admission due to recurrent fluid-build up - required increased dose of diuretics unfortunately, possibly due to diarrhea and fluid loss - creatinine/kidney function worsened creatinine on admission >4 hold diuretics; one bag of fluids already given; albumin started nephrology consulted for further input Hx. of Myelodysplastic Syndrome Chronic Thrombocytopenia has chronic anemia due to the 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 will only transfuse if Hg < 7 due to liver cirrhosis, possible portal hypertension Currently Hgb is greater than 7 - we will monitor Monitor platelets - avoiding heparin Insulin Dependent DM2 well controlled; recent Ha1c = 6.2% sliding scale insulin placed Sick Sinus Syndrome s/p permanent pacemaker HTN monitor blood pressure b-noman continued for now Hx. of HOCM COPD no exacerbation DVT prophylaxis SCDs - secondary to thrombocytopenia DNR
[2017-03-19 15:27] LABS: BUN/CREATININE RATIO 20.7 (10-20); CALCIUM 8.1 mg/dl (8.5-10.1); CREATININE 3.26 mg/dl (0.60-1.40); POTASSIUM 3.9 mmol/L (3.5-5.1)
[2017-03-19] MEDS ORDERED: LAVAGE SOLUTION 4000ML PO SCH (18:00)
[2017-03-19] MEDS: ONDANSETRON INJ 2 MG/ML 2 ML VIAL IV PRN (19:47)
[2017-03-20] VITALS (11 sets, daily range): BP systolic 93–109; BP diastolic 58–71; PULSE 72–108; TEMP 36.3–37; O2SAT 95–100
[2017-03-20] MEDS: PANTOprazole INJ 40 MG in DEXTROSE 5% 100ML IV SCH ×5 (00:17→21:40)
[2017-03-20] MEDS: LACTULOSE SYRUP 200 GM, WATER, STERILE IRRIG 700 ML, BARCODE IDENTIFIER 1 EA PR SCH ×4 (04:58→14:00)
[2017-03-20] MEDS: UNIT DOSE COMPOUND PO SCH ×2 (04:58→14:00)
[2017-03-20 06:27] LABS: MEAN CELL VOLUME 84.5 fL (80-100); MEAN CORPUSCULAR HEMOGLOBIN 27.1 pg (25-34); MEAN CORPUSCULAR HGB CONC 32.1 g/dl (32-36); RED BLOOD COUNT 2.84 M/uL (4.7-6.1); WHITE BLOOD COUNT 2.92 K/uL (4.8-10.8)
[2017-03-20] MEDS: INSULIN ASPART 100 UNITS/ML 3 ML PEN SC SCH ×4 (06:30→20:13)
[2017-03-20 06:33] LABS: MEAN PLATELET VOLUME 9.7 fL (7.4-10.4); PLATELET COUNT 56 K/uL (130-400)
[2017-03-20 07:01] LABS: BASO % 0.3 %; BASO ABS # 0.01 K/uL (0-0.2); COMPLETE YES; IG% 0.3 %; LYMPH % 8.9 %; LYMPH ABS # 0.26 K/uL (1.2-3.4); MONO % 9.2 %; NEUT % 80.3 %; OVALOCYTES 1+
[2017-03-20 07:03] LABS: BUN/CREATININE RATIO 20.4 (10-20); CALCIUM 8.5 mg/dl (8.5-10.1); CREATININE 3.25 mg/dl (0.60-1.40); POTASSIUM 4.9 mmol/L (3.5-5.1)
[2017-03-20] MEDS: RIFAXIMIN TAB 550 MG TAB PO SCH ×2 (08:00→20:11)
[2017-03-20] MEDS: RASPBERRY SYRUP 5 ML UDP PO SCH ×4 (08:00→20:10)
[2017-03-20 08:29] LABS: INR 1.3 (0.9-1.1); PROTHROMBIN TIME (PATIENT) 13.8 SECONDS (9.0-12.0)
[2017-03-20] MEDS: VANCOMYCIN HCL 125 MG/2.5ML SOLN PO SCH ×4 (09:19→20:10)
[2017-03-20] MEDS: METOPROLOL SUCC 25MG EXT REL TAB PO SCH (09:29)
--- NOTE | 2017-03-20 09:46 | Nephrology Progress Note ---
Nephrology Progress Note Date of Service: Mar 20, 2017. Subjective had BRBPR late last week; poorly tolerated prep overnight for EGD/colo>> had emesis, unable to drink much. denies dyspnea; was on 02 w/ cpap. some increasing lower BL abd discomfort in part from distension. not dyspneic, edema controlled/unchanged. voiding w/o effort. Objective Date Time Temp Pulse Resp B/P (MAP) Pulse Ox O2 Delivery O2 Flow Rate FiO2 03/20/17 07:13 36.3 82 20 102/64 (77) 100 Room Air 03/20/17 00:15 37.0 108 18 107/71 (83) 98 Room Air 03/20/17 00:00 Room Air 03/19/17 20:00 Room Air 03/19/17 16:00 97 Room Air 03/19/17 15:45 36.6 79 20 109/67 (81) 99 Room Air 03/19/17 11:15 36.6 90 20 104/71 (82) 99 Room Air 03/19/17 08:50 36.5 91 20 94/61 (72) 96 Room Air Physical Exam: General Appearance: WD/WN, no apparent distress, + obese, + pertinent finding ( on RA, oriented to self/ place, maneuvers readily for exam) Eyes: EOMI ENT: normal ENT inspection Neck: supple Respiratory/Chest: +++ decreased breath sounds, today no crackles but some exp wheeze Cardiovascular: + irregularly irregular, + pertinent finding (edema 1-2+ distal BLE/pedal) Abdomen: normal bowel sounds, non tender, soft, + pertinent finding increased distension, no focal tenderness Extremities: + pedal edema (as above) Neurologic/Psych: alert, normal mood/affect, oriented x 3 (some limited recall as above) Skin: no jaundice, warm/dry, no rash Current Inpatient Medications Medications (Trade) Dose Ordered Sig/Gin Route Start Time Stop Time Status Last Admin Dose Admin Acetaminophen (Tylenol Tab) 325 mg Q6H PRN PO 03/16/17 02:45 04/15/17 02:44 Insulin Aspart (novoLOG ASPART) SLIDING SCALE If C... ACHS SC 03/16/17 06:30 04/15/17 06:59 03/19/17 22:39 1 UNITS Glucose (Glucose 40% Gel) 15-30 GRAMS 15 GRAMS... UD PRN PO 03/16/17 02:45 04/15/17 02:44 Glucose (Glucose Chew Tab) 4-8 Tablets 4 Tabl... UD PRN PO 03/16/17 02:45 04/15/17 02:44 Dextrose (Dextrose 50% 50ML Syringe) 25-50ML OF 50% DW IV FOR... UD PRN IV 03/16/17 02:45 04/15/17 02:44 Glucagon (Glucagon Inj) 1 mg UD PRN SQ 03/16/17 02:45 04/15/17 02:44 Folic Acid (Folvite Tab) 1 mg DAILY PO 03/16/17 08:00 04/15/17 08:59 03/19/17 08:52 1 MG Metoprolol Succinate (Toprol Xl Tab) 12.5 mg DAILY PO 03/16/17 08:00 04/15/17 08:59 Pantoprazole Sodium (Protonix Tab) 40 mg DAILY PO 03/16/17 08:00 04/15/17 08:59 Future Hold 03/16/17 08:12 40 MG Ondansetron HCl (Zofran Inj) 4 mg Q6H PRN IV 03/16/17 02:45 04/15/17 02:44 03/19/17 19:47 4 MG Promethazine HCl 12.5 mg/Sodium Chloride 50.5 ml @ 204 mls/hr Q6H PRN IV 03/16/17 02:45 04/15/17 02:44 Hydromorphone HCl (Dilaudid Inj) 0.5 mg Q3H PRN IV 03/16/17 02:45 03/30/17 02:44 Tramadol HCl (Ultram Tab) 25 mg Q6H PRN PO 03/16/17 02:45 04/15/17 02:44 Lactulose/Sterile Water/Barcode Q8 [place] 03/16/17 14:00 04/15/17 13:59 03/16/17 14:49 10 GM Miscellaneous (Unit Dose Compound) 1 ea Q8 PO 03/16/17 14:00 04/15/17 13:59 03/16/17 14:00 1 EA Rifaximin (Xifaxan Tab) 550 mg BID PO 03/16/17 20:00 04/15/17 19:59 03/19/17 19:44 550 MG Pantoprazole Sodium 40 mg/ Dextrose 100 ml @ 20 mls/hr Q5H IV 03/16/17 22:15 04/15/17 22:14 03/20/17 04:58 20 MLS/HR Vancomycin HCl (Vancomycin Oral Soln) 125 mg QID PO 03/16/17 23:00 03/30/17 22:59 03/19/17 19:45 125 MG Raspberry (Raspberry Syrup 5ml Cup) 5 ml QID PO 03/16/17 23:00 03/30/17 22:59 03/19/17 19:45 5 ML Potassium Chloride (Klor-Con Tab) 60 meq BID PO 03/18/17 20:00 04/16/17 19:59 03/19/17 19:45 60 MEQ Last 24 Hours Test 03/19/17 11:39 03/19/17 14:52 03/19/17 16:38 03/19/17 20:37 Bedside Glucose 192 mg/dl 148 mg/dl 194 mg/dl Sodium Level 134 mmol/L Potassium Level 3.9 mmol/L Chloride Level 98 mmol/L Carbon Dioxide Level 28 mmol/L Anion Gap 8.0 mmol/L Blood Urea Nitrogen 67 mg/dl Creatinine 3.26 mg/dl Est Creatinine Clear Calc Drug Dose 18.4 ml/min Estimated GFR () 18.7 Estimated GFR (Non- 16.1 BUN/Creatinine Ratio 20.7 Random Glucose 159 mg/dl Calcium Level 8.1 mg/dl Test 03/20/17 05:58 03/20/17 08:04 White Blood Count 2.92 K/uL Red Blood Count 2.84 M/uL Hemoglobin 7.7 g/dL Hematocrit 24.0 % Mean Corpuscular Volume 84.5 fL Mean Corpuscular Hemoglobin 27.1 pg Mean Corpuscular Hemoglobin Concent 32.1 g/dl Platelet Count 56 K/uL Mean Platelet Volume 9.7 fL Neutrophils (%) (Auto) 80.3 % Lymphocytes (%) (Auto) 8.9 % Monocytes (%) (Auto) 9.2 % Eosinophils (%) (Auto) 1.0 % Basophils (%) (Auto) 0.3 % Neutrophils # (Auto) 2.34 K/uL Lymphocytes # (Auto) 0.26 K/uL Monocytes # (Auto) 0.27 K/uL Eosinophils # (Auto) 0.03 K/uL Basophils # (Auto) 0.01 K/uL RDW Standard Deviation 56.0 fL RDW Coefficient of Variation 17.8 % Immature Granulocyte % (Auto) 0.3 % Immature Granulocyte # (Auto) 0.01 K/uL Ovalocytes 1+ Sodium Level 135 mmol/L Potassium Level 4.9 mmol/L Chloride Level 101 mmol/L Carbon Dioxide Level 28 mmol/L Anion Gap 7.0 mmol/L Blood Urea Nitrogen 66 mg/dl Creatinine 3.25 mg/dl Est Creatinine Clear Calc Drug Dose 18.5 ml/min Estimated GFR () 18.8 Estimated GFR (Non- 16.2 BUN/Creatinine Ratio 20.4 Random Glucose 175 mg/dl Calcium Level 8.5 mg/dl Assessment & Plan 87 y/o M w/ 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 His diuretics were held; he is getting tx for hypokalemia again this am; he MAGEN on CKD 4/5, slightly improved -prerenal in setting of obligate aggressive diuretics; nothing to suggest interstitial nephritis or GN. responded to gentle albumin but now w/ more overload -no acute indication for dialysis; discussed dialysis w/ pt >> he is not a candidate by his wishes and clinically -stop albumin -admission urine sediment bland Hypokalemia, improving/resolved -4.9 this am; getting relatively large doses given his poor renal function in setting of diarrhea; lowered bid supplement to 20 mEq po; cont to monitor closely -recheck bmp this pm Ascites and cirrhosis, w/ worsening renal failure, elevated lactate -no diagnostic paracentesis -for upper/lower endoscopy today -f/u GI recs for xifaxan therapy >2 gm daily Na diet po; limit po fluids when not on fluid only diet to 1.5L -resume spironolactone 25 mg daily, lasix 20 mg bid later today<>orders in -blood pressure not unexpected w/ his comorbidities C diff colitis and emesis per primary service Appreciate consult; will follow with you. Care coordinated w/ Dr. Saleh
--- NOTE | 2017-03-20 10:15 | Progress Note ---
Subjective Date of Service: Mar 20, 2017. Subjective Pt evaluation today including: conversation w/ patient, physical exam, lab review, review of studies, conversation w/ software sales consultant, review of inpatient medication list Saw/examined the patient in room 456 Had issues with bowel prep yesterday - telling me that he had some trouble swallowing the prep. Did have some diarrhea yesterday No bleeding noted yesterday Denies abdominal pain Problem List Medical Problems: (1) Acute on chronic renal failure Status: Acute (2) MAGEN (acute kidney injury) Status: Acute (3) Altered mental status Status: Acute (4) Anasarca Status: Acute (5) Anasarca Status: Acute (6) Bilateral leg edema Status: Acute (7) CHF (congestive heart failure) Status: Acute (8) CHF (congestive heart failure) Status: Acute (9) Dehydration Status: Acute (10) Dyspnea on exertion Status: Acute (11) Elevated lactic acid level Status: Acute (12) Elevated troponin Status: Acute (13) Hepatic encephalopathy Status: Acute (14) Hypotension Status: Acute (15) Pulmonary edema Status: Acute (16) Renal failure Status: Acute (17) Right heart failure Status: Acute Review of Systems Constitutional: No fever, No chills Respiratory: + wheezing, No shortness of breath, No dyspnea on exertion Cardiac: No chest pain, No edema, No palpitations Abdomen: + diarrhea, + GI bleeding (improving), No pain, No nausea, No vomiting , No constipation Medications Current Inpatient Medications Medications (Trade) Dose Ordered Sig/Gin Route Start Time Stop Time Status Last Admin Dose Admin Acetaminophen (Tylenol Tab) 325 mg Q6H PRN PO 03/16/17 02:45 04/15/17 02:44 Insulin Aspart (novoLOG ASPART) SLIDING SCALE If C... ACHS SC 03/16/17 06:30 04/15/17 06:59 03/19/17 22:39 1 UNITS Glucose (Glucose 40% Gel) 15-30 GRAMS 15 GRAMS... UD PRN PO 03/16/17 02:45 04/15/17 02:44 Glucose (Glucose Chew Tab) 4-8 Tablets 4 Tabl... UD PRN PO 03/16/17 02:45 04/15/17 02:44 Dextrose (Dextrose 50% 50ML Syringe) 25-50ML OF 50% DW IV FOR... UD PRN IV 03/16/17 02:45 04/15/17 02:44 Glucagon (Glucagon Inj) 1 mg UD PRN SQ 03/16/17 02:45 04/15/17 02:44 Folic Acid (Folvite Tab) 1 mg DAILY PO 03/16/17 08:00 04/15/17 08:59 03/19/17 08:52 1 MG Metoprolol Succinate (Toprol Xl Tab) 12.5 mg DAILY PO 03/16/17 08:00 04/15/17 08:59 Pantoprazole Sodium (Protonix Tab) 40 mg DAILY PO 03/16/17 08:00 04/15/17 08:59 Future Hold 03/16/17 08:12 40 MG Ondansetron HCl (Zofran Inj) 4 mg Q6H PRN IV 03/16/17 02:45 04/15/17 02:44 03/19/17 19:47 4 MG Promethazine HCl 12.5 mg/Sodium Chloride 50.5 ml @ 204 mls/hr Q6H PRN IV 03/16/17 02:45 04/15/17 02:44 Hydromorphone HCl (Dilaudid Inj) 0.5 mg Q3H PRN IV 03/16/17 02:45 03/30/17 02:44 Tramadol HCl (Ultram Tab) 25 mg Q6H PRN PO 03/16/17 02:45 04/15/17 02:44 Lactulose/Sterile Water/Barcode Q8 [place] 03/16/17 14:00 04/15/17 13:59 03/16/17 14:49 10 GM Miscellaneous (Unit Dose Compound) 1 ea Q8 PO 03/16/17 14:00 04/15/17 13:59 03/16/17 14:00 1 EA Rifaximin (Xifaxan Tab) 550 mg BID PO 03/16/17 20:00 04/15/17 19:59 03/19/17 19:44 550 MG Pantoprazole Sodium 40 mg/ Dextrose 100 ml @ 20 mls/hr Q5H IV 03/16/17 22:15 04/15/17 22:14 03/20/17 04:58 20 MLS/HR Vancomycin HCl (Vancomycin Oral Soln) 125 mg QID PO 03/16/17 23:00 03/30/17 22:59 03/19/17 19:45 125 MG Raspberry (Raspberry Syrup 5ml Cup) 5 ml QID PO 03/16/17 23:00 03/30/17 22:59 03/19/17 19:45 5 ML Potassium Chloride (Klor-Con Tab) 20 meq BID PO 03/20/17 20:00 04/16/17 19:59 Spironolactone (Aldactone Tab) 25 mg TODAY@1600 PO 03/20/17 16:00 03/20/17 18:00 Spironolactone (Aldactone Tab) 25 mg QAM PO 03/21/17 08:00 04/20/17 07:59 Furosemide (Lasix Tab) 20 mg BID17 PO 03/20/17 17:00 04/19/17 16:59 Objective Vital Signs Date Time Temp Pulse Resp B/P (MAP) Pulse Ox O2 Delivery O2 Flow Rate FiO2 03/20/17 07:13 36.3 82 20 102/64 (77) 100 Room Air 03/20/17 00:15 37.0 108 18 107/71 (83) 98 Room Air 03/20/17 00:00 Room Air 03/19/17 20:00 Room Air 03/19/17 16:00 97 Room Air 03/19/17 15:45 36.6 79 20 109/67 (81) 99 Room Air 03/19/17 11:15 36.6 90 20 104/71 (82) 99 Room Air Physical Exam General Appearance: no apparent distress, + pertinent finding (patient is awake , alert, and oriented x3) Respiratory/Chest: no respiratory distress, no accessory muscle use, + crackles Cardiovascular: no murmur, + irregularly irregular Abdomen: normal bowel sounds, non tender, + distended Extremities: + pertinent finding (+2 pitting edema b/l LE) Skin: + pertinent finding (bruising throughout extremities) Laboratory Results Last 24 Hours Test 03/19/17 11:39 03/19/17 14:52 03/19/17 16:38 03/19/17 20:37 Bedside Glucose 192 mg/dl 148 mg/dl 194 mg/dl Sodium Level 134 mmol/L Potassium Level 3.9 mmol/L Chloride Level 98 mmol/L Carbon Dioxide Level 28 mmol/L Anion Gap 8.0 mmol/L Blood Urea Nitrogen 67 mg/dl Creatinine 3.26 mg/dl Est Creatinine Clear Calc Drug Dose 18.4 ml/min Estimated GFR () 18.7 Estimated GFR (Non- 16.1 BUN/Creatinine Ratio 20.7 Random Glucose 159 mg/dl Calcium Level 8.1 mg/dl Test 03/20/17 05:58 03/20/17 08:04 White Blood Count 2.92 K/uL Red Blood Count 2.84 M/uL Hemoglobin 7.7 g/dL Hematocrit 24.0 % Mean Corpuscular Volume 84.5 fL Mean Corpuscular Hemoglobin 27.1 pg Mean Corpuscular Hemoglobin Concent 32.1 g/dl Platelet Count 56 K/uL Mean Platelet Volume 9.7 fL Neutrophils (%) (Auto) 80.3 % Lymphocytes (%) (Auto) 8.9 % Monocytes (%) (Auto) 9.2 % Eosinophils (%) (Auto) 1.0 % Basophils (%) (Auto) 0.3 % Neutrophils # (Auto) 2.34 K/uL Lymphocytes # (Auto) 0.26 K/uL Monocytes # (Auto) 0.27 K/uL Eosinophils # (Auto) 0.03 K/uL Basophils # (Auto) 0.01 K/uL RDW Standard Deviation 56.0 fL RDW Coefficient of Variation 17.8 % Immature Granulocyte % (Auto) 0.3 % Immature Granulocyte # (Auto) 0.01 K/uL Ovalocytes 1+ Sodium Level 135 mmol/L Potassium Level 4.9 mmol/L Chloride Level 101 mmol/L Carbon Dioxide Level 28 mmol/L Anion Gap 7.0 mmol/L Blood Urea Nitrogen 66 mg/dl Creatinine 3.25 mg/dl Est Creatinine Clear Calc Drug Dose 18.5 ml/min Estimated GFR () 18.8 Estimated GFR (Non- 16.2 BUN/Creatinine Ratio 20.4 Random Glucose 175 mg/dl Calcium Level 8.5 mg/dl Prothrombin Time 13.8 SECONDS Prothromb Time International Ratio 1.3 Assessment and Plan This is an 87 year old male with history of SHANE cirrhosis and recurrent ascites , CKD stage IV, DM2, COPD, Paroxysmal A. Fib presents with confusion, weakness, increased abdominal fluid, and excessive diarrhea SHANE cirrhosis Recurrent Ascites Hepatic Encephalopathy - resolved 03/20 patient developing slightly worsening distention ascites has been noted to be moderate to large on earlier imagining as per nephrology, may need to restart diuretics; will await EGD/colonoscopy today 03/19 plan is for continued albumin, hold diuretics colonoscopy/EGD in AM to evaluate for GI bleeding/cirrhosis continue electrolyte replacement 03/18 appreciate GI and nephrology input for now, started on albumin possible paracentesis? states there is no pain at this time started on Rifaximin holding diuretics due to intravascular depletion/kidney injury 03/17 appreciate GI and nephrology input continue Rifaximin may need paracentesis for now, holding diuretics and started albumin 03/16 patient has had recurrent ascites during previous admission, he required multiple paracentesis and his diuretic dose was increased at that time He states that since the discharge, he has been having diarrhea and some episodes of vomiting became confused and was brought to the ED from [facility] Noted to have worsening kidney function and elevated ammonia level Seems that he may have stopped taking his lactulose due to diarrhea for now, hold diuretics Lactulose enema if needed, depending on mental status Rifaximin started as per GI Abdominal U/S suggests moderate to large ascites - will need a therapeutic tap discussed with daughter during previous admission about hospice/palliative care and they were not ready - may need to address this again Diarrhea leading to Hypokalemia Hx. of C. Diff 03/20 continue tapering dose of Vanco monitor electrolytes 03/18 continues to have diarrhea hypokalemia is persistent; adding both IV and oral supplementation continue tapering dose of Vancomycin as per GI 03/17 positive for C. Diff and multiple diarrhea episodes started on a tapering vancomycin dose 03/16 patient has a history of C. Diff was treated for this previously diarrhea persists even without lactulose use checking C. diff and stool cultures GI bleed, likely Lower had been having bloody stools possibly rectal injury plan is for both an EGD and colonoscopy as per GI (03/20) transfuse if Hgb < 7 Acute Kidney Injury superimposed on CKD stage IV patient with creatinine in the upper 2's during previous admission due to recurrent fluid-build up - required increased dose of diuretics unfortunately, possibly due to diarrhea and fluid loss - creatinine/kidney function worsened creatinine on admission >4 hold diuretics; one bag of fluids already given; albumin started nephrology consulted for further input Hx. of Myelodysplastic Syndrome Chronic Thrombocytopenia has chronic anemia due to the 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 will only transfuse if Hg < 7 due to liver cirrhosis, possible portal hypertension Currently Hgb is greater than 7 - we will monitor Monitor platelets - avoiding heparin Insulin Dependent DM2 well controlled; recent Ha1c = 6.2% sliding scale insulin placed Sick Sinus Syndrome s/p permanent pacemaker HTN monitor blood pressure b-noman continued for now Hx. of HOCM COPD no exacerbation DVT prophylaxis SCDs - secondary to thrombocytopenia DNR
[2017-03-20] MEDS ORDERED: MIDAZOLAM HCL 1 MG/ML 2ML VIAL ONE (12:08)
[2017-03-20] MEDS ORDERED: PROPOFOL IV EMULSION 10 MG/ML 20 ML VIAL IV ONE (12:10)
[2017-03-20] MEDS ORDERED: LIDOCAINE HCL 2% 2 ML VIAL (20MG/ML) ONE (12:10)
[2017-03-20] MEDS ORDERED: ONDANSETRON INJ 2 MG/ML 2 ML VIAL ONE (12:10)
[2017-03-20] MEDS ORDERED: SODIUM CHLORIDE 0.9% 500ML 500 ML IV ONE (12:34)
--- NOTE | 2017-03-20 12:37 | History & Physical Bridge Note ---
H&P Re-Evaluation Bridge Note: I have examined the patient, reviewed the History & Physical and in the interval since the performance of the History & Physical I have noted the following changes of clinical significance: No further rectal bleeding. Planned for EGD and colonoscopy today. Patient understands the risk of bleeding, perforation and cardiopulmonary complications and agrees.
[2017-03-20] MEDS ORDERED: ATROPINE SULFATE 0.1 MG/ML 5ML SYR IV PRN (12:45)
[2017-03-20] MEDS ORDERED: EpHEDrine SULFATE INJ 50 MG/ML AMP IV PRN (12:45)
--- NOTE | 2017-03-20 13:26 | Anesthesiology Progress Note ---
Anesthesia Post Op Note Date & Time Mar 20, 2017 at 13:26 Vital Signs Pain Intensity: 0.0 Vital Signs Past 12 Hours Date Time Temp Pulse Resp B/P (MAP) Pulse Ox O2 Delivery O2 Flow Rate FiO2 03/20/17 12:15 36.5 81 20 104/70 (81) 100 Room Air 03/20/17 07:13 36.3 82 20 102/64 (77) 100 Room Air Notes Mental Status: alert / awake / arousable, participated in evaluation Pt Amnestic to Procedure: Yes Nausea / Vomiting: adequately controlled Pain: adequately controlled Airway Patency, RR, SpO2: stable & adequate BP & HR: stable & adequate Hydration State: stable & adequate Anesthetic Complications: no major complications apparent
--- NOTE | 2017-03-20 13:27 | GI REPORT ---
Procedure Date: 03/20/2017 12:26 PM Procedure: Upper GI endoscopy Indications: Hematochezia Medicines: Monitored Anesthesia Care Complications: No immediate complications. Estimated Blood Loss: Estimated blood loss: none. Procedure: Pre-Anesthesia Assessment: - Prior to the procedure, a History and Physical was performed, and patient medications and allergies were reviewed. The patient is competent. The risks and benefits of the procedure and the sedation options and risks were discussed with the patient. All questions were answered and informed consent was obtained. Patient identification and proposed procedure were verified by the physician and the nurse in the procedure room. Mental Status Examination: alert and oriented. Airway Examination: normal oropharyngeal airway and neck mobility. Respiratory Examination: clear to auscultation. CV Examination: normal. ASA Grade Assessment: IV - A patient with severe systemic disease that is a constant threat to life. After reviewing the risks and benefits, the patient was deemed in satisfactory condition to undergo the procedure. The anesthesia plan was to use monitored anesthesia care (MAC). Immediately prior to administration of medications, the patient was re-assessed for adequacy to receive sedatives. The heart rate, respiratory rate, oxygen saturations, blood pressure, adequacy of pulmonary ventilation, and response to care were monitored throughout the procedure. The physical status of the patient was re-assessed after the procedure. After obtaining informed consent, the endoscope was passed under direct vision. Throughout the procedure, the patient's blood pressure, pulse, and oxygen saturations were monitored continuously. The Scope was introduced through the mouth, and advanced to the second part of duodenum. The upper GI endoscopy was accomplished without difficulty. The patient tolerated the procedure well. Findings: Small (< 5 mm) varices were found in the lower third of the esophagus. No stigmata of bleeding or red miryam sign. Mild portal hypertensive gastropathy was found in the gastric body. The duodenal bulb and 2nd part of the duodenum were normal. A medium diverticulum was found in the second part of the duodenum. Impression: - Small (< 5 mm) esophageal varices with no stigmata of bleed. - Portal hypertensive gastropathy. - Normal duodenal bulb and 2nd part of the duodenum. - Duodenal diverticulum. - No specimens collected. Recommendation: - Return patient to [facility] for ongoing care. - Resume regular diet. - Iron supplementation. - Not a candidate for BB in view of renal failure. Anant Ang MD 03/20/2017 1:26:36 PM This report has been signed electronically. Note Initiated On: 03/20/2017 12:26 PM I attest to the content of the Intraoperative Record and orders documented therein, exceptions below
--- NOTE | 2017-03-20 13:30 | GI REPORT ---
Procedure Date: 03/20/2017 12:51 PM Procedure: Colonoscopy Indications: Hematochezia Medicines: Monitored Anesthesia Care Complications: No immediate complications. Estimated Blood Loss: Estimated blood loss: none. Procedure: Pre-Anesthesia Assessment: - Prior to the procedure, a History and Physical was performed, and patient medications and allergies were reviewed. The patient is competent. The risks and benefits of the procedure and the sedation options and risks were discussed with the patient. All questions were answered and informed consent was obtained. Patient identification and proposed procedure were verified by the physician and the nurse in the procedure room. Mental Status Examination: alert and oriented. Airway Examination: normal oropharyngeal airway and neck mobility. Respiratory Examination: clear to auscultation. CV Examination: normal. ASA Grade Assessment: IV - A patient with severe systemic disease that is a constant threat to life. After reviewing the risks and benefits, the patient was deemed in satisfactory condition to undergo the procedure. The anesthesia plan was to use monitored anesthesia care (MAC). Immediately prior to administration of medications, the patient was re-assessed for adequacy to receive sedatives. The heart rate, respiratory rate, oxygen saturations, blood pressure, adequacy of pulmonary ventilation, and response to care were monitored throughout the procedure. The physical status of the patient was re-assessed after the procedure. After I obtained informed consent, the scope was passed under direct vision. Throughout the procedure, the patient's blood pressure, pulse, and oxygen saturations were monitored continuously. The scope was introduced through the anus and advanced to the cecum, identified by appendiceal orifice and ileocecal valve. The colonoscopy was performed without difficulty. The patient tolerated the procedure well. The quality of the bowel preparation was fair. The ileocecal valve, appendiceal orifice, and rectum were photographed. Findings: The perianal and digital rectal examinations were normal. Multiple small-mouthed diverticula were found in the sigmoid colon. Small, non-bleeding rectal varices were found. Non-bleeding internal hemorrhoids were found during retroflexion. The hemorrhoids were medium-sized. Impression: - Diverticulosis in the sigmoid colon. - Rectal varices. - Non-bleeding internal hemorrhoids. - No specimens collected. Recommendation: - Return patient to [facility] for ongoing care. - Monitor H/H. - Anusol cream PRN. Anant Ang MD 03/20/2017 1:30:03 PM This report has been signed electronically. Note Initiated On: 03/20/2017 12:51 PM I attest to the content of the Intraoperative Record and orders documented therein, exceptions below
[2017-03-20] MEDS ORDERED: NURSING VERBAL MED ORDER ONE (15:30)
[2017-03-20] MEDS ORDERED: SPIRONOLACTONE 25 MG TAB PO SCH (16:00)
--- NOTE | 2017-03-20 16:23 | DIAGNOSTIC IMAGING REPORT ---
ULTRASOUND GUIDED DIAGNOSTIC AND THERAPEUTIC PARACENTESIS CLINICAL HISTORY: Ascites. COMPARISON STUDY: Ascites ultrasound March 16, 2017. PROCEDURE: The risks, benefits, and alternatives to the procedure were discussed with the patient including the risk of bleeding, infection and injury to adjacent structures. The patient agreed to the procedure and informed written consent was obtained. Following real-time ultrasound localization, the skin of the right lower quadrant was prepped and draped. Following local anesthesia with Xylocaine, the sheath paracentesis needle was inserted and approximately 5 liters of straw-colored fluid was removed by vacuum suction. The patient tolerated the procedure well and no immediate complications were evident. IMPRESSION: Ultrasound-guided diagnostic and therapeutic paracentesis with removal of 5 liters of ascites. 1 L of ascites was sent to laboratory for analysis. Electronically signed by: iWlliams Goetz M.D. 03/20/2017 4:22 PM Dictated Date/Time: 03/20/2017 4:21 PM
[2017-03-20] MEDS: FUROSEMIDE 20 MG TAB PO SCH (17:41)
[2017-03-20 17:47] LABS: PERIT FL WBC 274 /uL (0-300); PERITONEAL FLUID RBC 3000 /uL
[2017-03-20 18:28] LABS: BUN/CREATININE RATIO 20.6 (10-20); CALCIUM 8.4 mg/dl (8.5-10.1); CREATININE 3.1 mg/dl (0.60-1.40); POTASSIUM 4.2 mmol/L (3.5-5.1)
[2017-03-20] MEDS: POTASSIUM CHLORIDE 20 MEQ TABCR PO SCH (20:11)
[2017-03-21] MEDS: PANTOprazole INJ 40 MG in DEXTROSE 5% 100ML IV SCH ×3 (02:21→12:41)
[2017-03-21 05:16] LABS: HEMATOCRIT 24.8 % (42-52); MEAN CELL VOLUME 84.9 fL (80-100); MEAN CORPUSCULAR HEMOGLOBIN 26.7 pg (25-34); MEAN CORPUSCULAR HGB CONC 31.5 g/dl (32-36); RED BLOOD COUNT 2.92 M/uL (4.7-6.1); WHITE BLOOD COUNT 2.86 K/uL (4.8-10.8)
[2017-03-21 05:32] LABS: MEAN PLATELET VOLUME 9.8 fL (7.4-10.4); PLATELET COUNT 55 K/uL (130-400)
[2017-03-21 05:48] LABS: BASO % 0.3 %; BASO ABS # 0.01 K/uL (0-0.2); COMPLETE YES; EOS % 4.2 %; IG% 0.3 %; LYMPH % 8.4 %; LYMPH ABS # 0.24 K/uL (1.2-3.4); MONO % 9.8 %; OVALOCYTES 1+
[2017-03-21 05:51] LABS: BUN/CREATININE RATIO 19.9 (10-20); CALCIUM 8.2 mg/dl (8.5-10.1); CREATININE 3.05 mg/dl (0.60-1.40)
[2017-03-21 06:01] LABS: ALB/GLOB RATIO 1.2 (0.9-2)
[2017-03-21 07:13] VITALS: BP 93/57; PULSE 74; TEMP 36.5; O2SAT 99
[2017-03-21] MEDS: RASPBERRY SYRUP 5 ML UDP PO SCH ×2 (07:40→12:35)
[2017-03-21] MEDS: VANCOMYCIN HCL 125 MG/2.5ML SOLN PO SCH ×2 (07:40→12:35)
[2017-03-21] MEDS: POTASSIUM CHLORIDE 20 MEQ TABCR PO SCH (07:41)
[2017-03-21] MEDS: RIFAXIMIN TAB 550 MG TAB PO SCH (07:42)
[2017-03-21] MEDS ORDERED: SPIRONOLACTONE 25 MG TAB PO SCH (08:00)
[2017-03-21] MEDS: INSULIN ASPART 100 UNITS/ML 3 ML PEN SC SCH ×2 (08:44→12:37)
[2017-03-21 08:45] VITALS: BP 92/54
[2017-03-21] MEDS: METOPROLOL SUCC 25MG EXT REL TAB PO SCH (08:48)
[2017-03-21] MEDS: FUROSEMIDE 20 MG TAB PO SCH (09:00)
--- NOTE | 2017-03-21 09:01 | Nephrology Progress Note ---
Nephrology Progress Note Date of Service: Mar 21, 2017. Subjective 87 yo male with ckd stage 4 with chronic ascites/volume overload who presented with cdiff. tolerating regular diet this morning and feels much better. diarrhea is improving. no abdominal pain. no lightheadedness. Objective Date Time Temp Pulse Resp B/P (MAP) Pulse Ox O2 Delivery O2 Flow Rate FiO2 03/21/17 08:45 92/54 (67) 03/21/17 07:13 36.5 74 16 93/57 (69) 99 BiPAP 03/21/17 00:00 BiPAP 3.0 03/20/17 23:20 36.9 82 16 99/65 (76) 100 Room Air 03/20/17 17:45 36.4 93 16 99/58 (72) 99 Room Air 03/20/17 17:15 36.5 78 16 106/63 (77) 99 Room Air 03/20/17 16:51 100/59 (73) 03/20/17 16:45 36.5 87 16 93/59 (70) 95 Room Air 03/20/17 16:30 95 Room Air 03/20/17 16:26 36.4 78 18 109/65 (80) Room Air 03/20/17 14:20 36.6 72 20 102/70 (81) 100 Room Air 03/20/17 13:47 78 20 98/60 (73) 99 Room Air 03/20/17 13:32 79 20 91/55 (67) 99 Room Air 03/20/17 13:17 79 20 114/70 (85) 100 Mask 5 03/20/17 12:15 36.5 81 20 104/70 (81) 100 Room Air 03/20/17 12:00 100 Room Air Physical Exam: General-aaox3 Eyes-no scleral icterus ENT-mmm Neck-supple Lungs-cta Heart-regular Abdomen-distended Extremities-+1 edema mostly in feet Neuro-nonfocal Current Inpatient Medications Medications (Trade) Dose Ordered Sig/Gin Route Start Time Stop Time Status Last Admin Dose Admin Acetaminophen (Tylenol Tab) 325 mg Q6H PRN PO 03/16/17 02:45 04/15/17 02:44 Insulin Aspart (novoLOG ASPART) SLIDING SCALE If C... ACHS SC 03/16/17 06:30 04/15/17 06:59 10/29/17 22:39 1 UNITS Glucose (Glucose 40% Gel) 15-30 GRAMS 15 GRAMS... UD PRN PO 03/16/17 02:45 04/15/17 02:44 Glucose (Glucose Chew Tab) 4-8 Tablets 4 Tabl... UD PRN PO 03/16/17 02:45 04/15/17 02:44 Dextrose (Dextrose 50% 50ML Syringe) 25-50ML OF 50% DW IV FOR... UD PRN IV 03/16/17 02:45 04/15/17 02:44 Glucagon (Glucagon Inj) 1 mg UD PRN SQ 03/16/17 02:45 04/15/17 02:44 Folic Acid (Folvite Tab) 1 mg DAILY PO 03/16/17 08:00 04/15/17 08:59 03/21/17 07:41 1 MG Metoprolol Succinate (Toprol Xl Tab) 12.5 mg DAILY PO 03/16/17 08:00 04/15/17 08:59 Pantoprazole Sodium (Protonix Tab) 40 mg DAILY PO 03/16/17 08:00 04/15/17 08:59 Future Hold 03/16/17 08:12 40 MG Ondansetron HCl (Zofran Inj) 4 mg Q6H PRN IV 03/16/17 02:45 04/15/17 02:44 03/19/17 19:47 4 MG Promethazine HCl 12.5 mg/Sodium Chloride 50.5 ml @ 204 mls/hr Q6H PRN IV 03/16/17 02:45 04/15/17 02:44 Hydromorphone HCl (Dilaudid Inj) 0.5 mg Q3H PRN IV 03/16/17 02:45 03/30/17 02:44 Tramadol HCl (Ultram Tab) 25 mg Q6H PRN PO 03/16/17 02:45 04/15/17 02:44 Rifaximin (Xifaxan Tab) 550 mg BID PO 03/16/17 20:00 04/15/17 19:59 03/21/17 07:42 550 MG Pantoprazole Sodium 40 mg/ Dextrose 100 ml @ 20 mls/hr Q5H IV 03/16/17 22:15 04/15/17 22:14 03/21/17 07:38 20 MLS/HR Vancomycin HCl (Vancomycin Oral Soln) 125 mg QID PO 03/16/17 23:00 03/30/17 22:59 03/21/17 07:40 125 MG Raspberry (Raspberry Syrup 5ml Cup) 5 ml QID PO 03/16/17 23:00 03/30/17 22:59 03/21/17 07:40 5 ML Potassium Chloride (Klor-Con Tab) 20 meq BID PO 03/20/17 20:00 04/16/17 19:59 03/21/17 07:41 20 MEQ Spironolactone (Aldactone Tab) 25 mg QAM PO 03/21/17 08:00 04/20/17 07:59 Furosemide (Lasix Tab) 20 mg BID17 PO 03/20/17 17:00 04/19/17 16:59 03/20/17 17:41 20 MG Sodium Chloride 500 ml @ 15 mls/hr Q24H ONCE IV 03/20/17 12:34 03/21/17 12:33 Last 24 Hours Test 03/20/17 11:21 03/20/17 16:24 03/20/17 17:15 03/20/17 20:00 Bedside Glucose 131 mg/dl 111 mg/dl 169 mg/dl Sodium Level 137 mmol/L Potassium Level 4.2 mmol/L Chloride Level 101 mmol/L Carbon Dioxide Level 28 mmol/L Anion Gap 8.0 mmol/L Blood Urea Nitrogen 64 mg/dl Creatinine 3.10 mg/dl Est Creatinine Clear Calc Drug Dose 19.4 ml/min Estimated GFR () 19.9 Estimated GFR (Non- 17.2 BUN/Creatinine Ratio 20.6 Random Glucose 128 mg/dl Calcium Level 8.4 mg/dl Test 03/21/17 04:46 White Blood Count 2.86 K/uL Red Blood Count 2.92 M/uL Hemoglobin 7.8 g/dL Hematocrit 24.8 % Mean Corpuscular Volume 84.9 fL Mean Corpuscular Hemoglobin 26.7 pg Mean Corpuscular Hemoglobin Concent 31.5 g/dl Platelet Count 55 K/uL Mean Platelet Volume 9.8 fL Neutrophils (%) (Auto) 77.0 % Lymphocytes (%) (Auto) 8.4 % Monocytes (%) (Auto) 9.8 % Eosinophils (%) (Auto) 4.2 % Basophils (%) (Auto) 0.3 % Neutrophils # (Auto) 2.20 K/uL Lymphocytes # (Auto) 0.24 K/uL Monocytes # (Auto) 0.28 K/uL Eosinophils # (Auto) 0.12 K/uL Basophils # (Auto) 0.01 K/uL RDW Standard Deviation 55.8 fL RDW Coefficient of Variation 17.9 % Immature Granulocyte % (Auto) 0.3 % Immature Granulocyte # (Auto) 0.01 K/uL Ovalocytes 1+ Sodium Level 136 mmol/L Potassium Level 4.0 mmol/L Chloride Level 101 mmol/L Carbon Dioxide Level 27 mmol/L Anion Gap 8.0 mmol/L Blood Urea Nitrogen 61 mg/dl Creatinine 3.05 mg/dl Est Creatinine Clear Calc Drug Dose 19.7 ml/min Estimated GFR () 20.3 Estimated GFR (Non- 17.5 BUN/Creatinine Ratio 19.9 Random Glucose 131 mg/dl Calcium Level 8.2 mg/dl Total Bilirubin 0.9 mg/dl Aspartate Amino Transf (AST/SGOT) 30 U/L Alanine Aminotransferase (ALT/SGPT) 18 U/L Alkaline Phosphatase 57 U/L Total Protein 5.6 gm/dl Albumin 3.1 gm/dl Globulin 2.5 gm/dl Albumin/Globulin Ratio 1.2 Assessment & Plan izaiah on ckd stage 4-creatinine was 4.07 and has trended down to 3. not uremic. volume status acceptable for this patient. currently on lasix and spironolactone, held this morning for low blood pressures. hypokalemia-on potassium replacement-k is good at 4. no changes. overall clinically improving. will need to continue chronic diuretics as an outpt as we try to control his ascites and chronic volume overload although just recovering from infection so ok to hold diuretics.
--- NOTE | 2017-03-21 09:04 | Gastroenterology Progress Note ---
Progress Note Date of Service: Mar 21, 2017 Subjective Pt evaluation today including: conversation w/ patient, physical exam, chart review, lab review Pt was seen and evaluated, chart reviewed. S/P EGD/Colon and paracentesis yesterday. Tolerated procedures well and is feeling well. Is ready to go home. No fever, chills, CP, SOB. Has a good appetite. Denies any abdominal pain, diarrhea or bleeding. EGD: small varices Colon: rectal varices, hemorrhoids Paracentesis: no SBP Decompensations - Ascites: yes - Varices: yes, no candidate for BB due to kidney function - Hepatic encephalopathy: yes Screenings - Varices: due - HCC screening: UTD - Immunization status: unknown Review of Systems Constitutional: No fever, No chills Cardiac: No chest pain Abdomen: No pain, No nausea, No vomiting, No diarrhea, No constipation, No GI bleeding Medications Current Inpatient Medications Medications (Trade) Dose Ordered Sig/Gin Route Start Time Stop Time Status Last Admin Dose Admin Acetaminophen (Tylenol Tab) 325 mg Q6H PRN PO 03/16/17 02:45 04/15/17 02:44 Insulin Aspart (novoLOG ASPART) SLIDING SCALE If C... ACHS SC 03/16/17 06:30 04/15/17 06:59 03/19/17 22:39 1 UNITS Glucose (Glucose 40% Gel) 15-30 GRAMS 15 GRAMS... UD PRN PO 03/16/17 02:45 04/15/17 02:44 Glucose (Glucose Chew Tab) 4-8 Tablets 4 Tabl... UD PRN PO 03/16/17 02:45 04/15/17 02:44 Dextrose (Dextrose 50% 50ML Syringe) 25-50ML OF 50% DW IV FOR... UD PRN IV 03/16/17 02:45 04/15/17 02:44 Glucagon (Glucagon Inj) 1 mg UD PRN SQ 03/16/17 02:45 04/15/17 02:44 Folic Acid (Folvite Tab) 1 mg DAILY PO 03/16/17 08:00 04/15/17 08:59 03/21/17 07:41 1 MG Metoprolol Succinate (Toprol Xl Tab) 12.5 mg DAILY PO 03/16/17 08:00 04/15/17 08:59 Pantoprazole Sodium (Protonix Tab) 40 mg DAILY PO 03/16/17 08:00 04/15/17 08:59 Future Hold 03/16/17 08:12 40 MG Ondansetron HCl (Zofran Inj) 4 mg Q6H PRN IV 03/16/17 02:45 04/15/17 02:44 03/19/17 19:47 4 MG Promethazine HCl 12.5 mg/Sodium Chloride 50.5 ml @ 204 mls/hr Q6H PRN IV 03/16/17 02:45 04/15/17 02:44 Hydromorphone HCl (Dilaudid Inj) 0.5 mg Q3H PRN IV 03/16/17 02:45 03/30/17 02:44 Tramadol HCl (Ultram Tab) 25 mg Q6H PRN PO 03/16/17 02:45 04/15/17 02:44 Rifaximin (Xifaxan Tab) 550 mg BID PO 03/16/17 20:00 04/15/17 19:59 03/21/17 07:42 550 MG Pantoprazole Sodium 40 mg/ Dextrose 100 ml @ 20 mls/hr Q5H IV 03/16/17 22:15 04/15/17 22:14 03/21/17 07:38 20 MLS/HR Vancomycin HCl (Vancomycin Oral Soln) 125 mg QID PO 03/16/17 23:00 03/30/17 22:59 03/21/17 07:40 125 MG Raspberry (Raspberry Syrup 5ml Cup) 5 ml QID PO 03/16/17 23:00 03/30/17 22:59 03/21/17 07:40 5 ML Potassium Chloride (Klor-Con Tab) 20 meq BID PO 03/20/17 20:00 04/16/17 19:59 03/21/17 07:41 20 MEQ Spironolactone (Aldactone Tab) 25 mg QAM PO 03/21/17 08:00 04/20/17 07:59 Furosemide (Lasix Tab) 20 mg BID17 PO 03/20/17 17:00 04/19/17 16:59 03/20/17 17:41 20 MG Sodium Chloride 500 ml @ 15 mls/hr Q24H ONCE IV 03/20/17 12:34 03/21/17 12:33 Objective Vital Signs Date Time Temp Pulse Resp B/P (MAP) Pulse Ox O2 Delivery O2 Flow Rate FiO2 03/21/17 08:45 92/54 (67) 03/21/17 07:13 36.5 74 16 93/57 (69) 99 BiPAP 03/21/17 00:00 BiPAP 3.0 03/20/17 23:20 36.9 82 16 99/65 (76) 100 Room Air 03/20/17 17:45 36.4 93 16 99/58 (72) 99 Room Air 03/20/17 17:15 36.5 78 16 106/63 (77) 99 Room Air 03/20/17 16:51 100/59 (73) 03/20/17 16:45 36.5 87 16 93/59 (70) 95 Room Air 03/20/17 16:30 95 Room Air 03/20/17 16:26 36.4 78 18 109/65 (80) Room Air 03/20/17 14:20 36.6 72 20 102/70 (81) 100 Room Air 03/20/17 13:47 78 20 98/60 (73) 99 Room Air 03/20/17 13:32 79 20 91/55 (67) 99 Room Air 03/20/17 13:17 79 20 114/70 (85) 100 Mask 5 03/20/17 12:15 36.5 81 20 104/70 (81) 100 Room Air 03/20/17 12:00 100 Room Air Physical Exam General Appearance: no apparent distress Eyes: PERRL ENT: hearing grossly normal Neck: supple Respiratory/Chest: lungs clear, normal breath sounds Cardiovascular: regular rate, rhythm, no JVD Abdomen: normal bowel sounds, soft, no organomegaly, no pulsatile mass Neurologic/Psych: alert, normal mood/affect, oriented x 3 Skin: normal color, no jaundice, + pertinent finding (bilateral lower extremity edema/cellulitis) Laboratory Results Last 24 Hours Test 03/20/17 11:21 03/20/17 16:24 03/20/17 17:15 03/20/17 20:00 Bedside Glucose 131 mg/dl 111 mg/dl 169 mg/dl Sodium Level 137 mmol/L Potassium Level 4.2 mmol/L Chloride Level 101 mmol/L Carbon Dioxide Level 28 mmol/L Anion Gap 8.0 mmol/L Blood Urea Nitrogen 64 mg/dl Creatinine 3.10 mg/dl Est Creatinine Clear Calc Drug Dose 19.4 ml/min Estimated GFR () 19.9 Estimated GFR (Non- 17.2 BUN/Creatinine Ratio 20.6 Random Glucose 128 mg/dl Calcium Level 8.4 mg/dl Test 03/21/17 04:46 White Blood Count 2.86 K/uL Red Blood Count 2.92 M/uL Hemoglobin 7.8 g/dL Hematocrit 24.8 % Mean Corpuscular Volume 84.9 fL Mean Corpuscular Hemoglobin 26.7 pg Mean Corpuscular Hemoglobin Concent 31.5 g/dl Platelet Count 55 K/uL Mean Platelet Volume 9.8 fL Neutrophils (%) (Auto) 77.0 % Lymphocytes (%) (Auto) 8.4 % Monocytes (%) (Auto) 9.8 % Eosinophils (%) (Auto) 4.2 % Basophils (%) (Auto) 0.3 % Neutrophils # (Auto) 2.20 K/uL Lymphocytes # (Auto) 0.24 K/uL Monocytes # (Auto) 0.28 K/uL Eosinophils # (Auto) 0.12 K/uL Basophils # (Auto) 0.01 K/uL RDW Standard Deviation 55.8 fL RDW Coefficient of Variation 17.9 % Immature Granulocyte % (Auto) 0.3 % Immature Granulocyte # (Auto) 0.01 K/uL Ovalocytes 1+ Sodium Level 136 mmol/L Potassium Level 4.0 mmol/L Chloride Level 101 mmol/L Carbon Dioxide Level 27 mmol/L Anion Gap 8.0 mmol/L Blood Urea Nitrogen 61 mg/dl Creatinine 3.05 mg/dl Est Creatinine Clear Calc Drug Dose 19.7 ml/min Estimated GFR () 20.3 Estimated GFR (Non- 17.5 BUN/Creatinine Ratio 19.9 Random Glucose 131 mg/dl Calcium Level 8.2 mg/dl Total Bilirubin 0.9 mg/dl Aspartate Amino Transf (AST/SGOT) 30 U/L Alanine Aminotransferase (ALT/SGPT) 18 U/L Alkaline Phosphatase 57 U/L Total Protein 5.6 gm/dl Albumin 3.1 gm/dl Globulin 2.5 gm/dl Albumin/Globulin Ratio 1.2 Assessment and Plan Patient is a 87 year old male w/ cirrhosis decompensated by gross ascites and hepatic encephalopathy, unknown if he has esophageal varices who presented to the ED acute mental status changes. NH3 was elevated, electrolyte imbalances with a bump in kidney function BUN 86 creatinine 4, up from his baseline 32/ 2.5. Appears he was discharged on lasix 40 mg BID. MAGEN or ARF, will rule out HRS with random urine NA. Kidney function greatly unchanged overnight, urine NA 41, no evidence of HRS. - Start PO iron supplement - C.diff - vancomycin 125 mg QID x 14 days - vancomycin 125 mg BID x 7 days - vancomycin 125 mg daily x 7 days - vancomycin 125 mg every other day x 7 days - vancomycin 125 mg every three days x 14 days - Cirrhosis - start Xifaxan 550 BID - OK to use lactulose enemas if needed - Kidney function - diuretics were restarted per nephrology GI to to sign off. No GI contraindication to discharge. I performed a history and physical examination of the patient, I have discussed the patient's management with Melva. Please refer to the PA's note for the documented findings and plan of care. Decompensated Cirrhosis with ascites, no SBP. Monitor kidney function while on diuretics.
[2017-03-21] MEDS ORDERED: VNCS125 PO (13:40)
[2017-03-21] MEDS ORDERED: MCRK20 PO (13:40)
[2017-03-21] MEDS ORDERED: XFX550 PO (13:40)
[2017-03-21] MEDS ORDERED: LSX20 PO (13:40)
[2017-03-21] MEDS ORDERED: SPR25 PO (13:40)
--- NOTE | 2017-03-21 13:46 | Progress Note ---
Internal Med Progress Note Date of Service: Mar 21, 2017. Provider Documentation: SUBJECTIVE: Patient denies new complaints or concerns. No pain. OBJECTIVE: Exam: General- no acute distress Eyes- EOMI Neck- trachea midline, no JVD Lungs- CTABL Heart - RRR Abdomen- abdomen appearance with trucal obesity and mild distention consistent with chronic cirrhosis Extremities- no focal motor deficits Neuro- awake, speaking in sentences ASSESSMENT & PLAN: This is an 87 year old male with history of SHANE cirrhosis and recurrent ascites , CKD stage IV, DM2, COPD, Paroxysmal A. Fib presents with confusion, weakness, increased abdominal fluid, and excessive diarrhea Hospital Course 03/16 patient has had recurrent ascites during previous admission, he required multiple paracentesis and his diuretic dose was increased at that time He states that since the discharge, he has been having diarrhea and some episodes of vomiting became confused and was brought to the ED from [facility] Noted to have worsening kidney function and elevated ammonia level Seems that he may have stopped taking his lactulose due to diarrhea for now, hold diuretics Lactulose enema if needed, depending on mental status Rifaximin started as per GI Abdominal U/S suggests moderate to large ascites Ultrasound-guided diagnostic and therapeutic paracentesis with removal of 5 liters of ascites patient has a history of C. Diff was treated for this previously diarrhea persists even without lactulose use checking C. diff and stool cultures 03/17 positive for C. Diff and multiple diarrhea episodes started on a tapering vancomycin dose continue Rifaximin for now, holding diuretics and started albumin 03/18 continues to have diarrhea hypokalemia is persistent; adding both IV and oral supplementation continue tapering dose of Vancomycin as per GI for now, started on albumin started on Rifaximin holding diuretics due to intravascular depletion/kidney injury 03/19 plan is for continued albumin, hold diuretics continue electrolyte replacement 03/20 patient developing slightly worsening distention ascites has been noted to be moderate to large on earlier imagining as per nephrology, may need to restart diuretics continue tapering dose of Vanco EGD on 03/20 Findings: Small (< 5 mm) varices were found in the lower third of the esophagus. No stigmata of bleeding or red miryam sign. Mild portal hypertensive gastropathy was found in the gastric body. The duodenal bulb and 2nd part of the duodenum were normal. A medium diverticulum was found in the second part of the duodenum. Impression: - Small (< 5 mm) esophageal varices with no stigmata of bleed. - Portal hypertensive gastropathy. - Normal duodenal bulb and 2nd part of the duodenum. - Duodenal diverticulum. - No specimens collected. Recommendation: - Return patient to [facility] for ongoing care. - Resume regular diet. - Iron supplementation. - Not a candidate for BB in view of renal failure. Other GI recommendations 03/21/17 - Start PO iron supplement - C.diff - vancomycin 125 mg QID x 14 days - vancomycin 125 mg BID x 7 days - vancomycin 125 mg daily x 7 days - vancomycin 125 mg every other day x 7 days - vancomycin 125 mg every three days x 14 days - Cirrhosis - start Xifaxan 550 BID - OK to use lactulose enemas if needed Other issues Acute Kidney Injury superimposed on CKD stage IV patient with creatinine in the upper 2's during previous admission due to recurrent fluid-build up - required increased dose of diuretics unfortunately, possibly due to diarrhea and fluid loss - creatinine/kidney function worsened creatinine on admission >4 Nephrology consult recommendations 03/21/17: overall clinically improving. will need to continue chronic diuretics as an outpt as we try to control his ascites and chronic volume overload Hx. of Myelodysplastic Syndrome Chronic Thrombocytopenia has chronic anemia due to the 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 will only transfuse if Hg < 7 due to liver cirrhosis, possible portal hypertension Currently Hgb is greater than 7 - we will monitor Monitor platelets - avoiding heparin Insulin Dependent DM2 well controlled; recent Ha1c = 6.2% sliding scale insulin when inpatient Sick Sinus Syndrome history of permanent pacemaker HTN monitor blood pressure b-noman continued for now Disposition: discharge back [facility] and continue with [facility] Follow up appointments: 03/24/2017 11:00 AM Anastacio aGrza MD [facility] 03/29/2017 2:15 PM Manuel Brown MD Hematology/Oncology [facility] 05/04/2017 2:20 PM Alona Chong MD Nephrology, [facility] can call [phone] or [phone] if needs earlier nephrology follow up appointment Vital Signs: Date Time Temp Pulse Resp B/P (MAP) Pulse Ox O2 Delivery O2 Flow Rate FiO2 03/21/17 08:45 92/54 (67) 03/21/17 08:00 Room Air 03/21/17 07:13 36.5 74 16 93/57 (69) 99 BiPAP 03/21/17 00:00 BiPAP 3.0 03/20/17 23:20 36.9 82 16 99/65 (76) 100 Room Air 03/20/17 17:45 36.4 93 16 99/58 (72) 99 Room Air 03/20/17 17:15 36.5 78 16 106/63 (77) 99 Room Air 03/20/17 16:51 100/59 (73) 03/20/17 16:45 36.5 87 16 93/59 (70) 95 Room Air 03/20/17 16:30 95 Room Air 03/20/17 16:26 36.4 78 18 109/65 (80) Room Air 03/20/17 14:20 36.6 72 20 102/70 (81) 100 Room Air Lab Results: Results Past 24 Hours Test 03/20/17 16:24 03/20/17 17:15 03/20/17 20:00 03/21/17 04:46 Range/Units Bedside Glucose 111 169 70-99 mg/dl Sodium Level 137 136 136-145 mmol/L Potassium Level 4.2 4.0 3.5-5.1 mmol/L Chloride Level 101 101 98-107 mmol/L Carbon Dioxide Level 28 27 21-32 mmol/L Anion Gap 8.0 8.0 3-11 mmol/L Blood Urea Nitrogen 64 61 7-18 mg/dl Creatinine 3.10 3.05 0.60-1.40 mg/dl Est Creatinine Clear Calc Drug Dose 19.4 19.7 ml/min Estimated GFR () 19.9 20.3 Estimated GFR (Non- 17.2 17.5 BUN/Creatinine Ratio 20.6 19.9 10-20 Random Glucose 128 131 70-99 mg/dl Calcium Level 8.4 8.2 8.5-10.1 mg/dl White Blood Count 2.86 4.8-10.8 K/uL Red Blood Count 2.92 4.7-6.1 M/uL Hemoglobin 7.8 14.0-18.0 g/dL Hematocrit 24.8 42-52 % Mean Corpuscular Volume 84.9 80-100 fL Mean Corpuscular Hemoglobin 26.7 25-34 pg Mean Corpuscular Hemoglobin Concent 31.5 32-36 g/dl Platelet Count 55 130-400 K/uL Mean Platelet Volume 9.8 7.4-10.4 fL Neutrophils (%) (Auto) 77.0 % Lymphocytes (%) (Auto) 8.4 % Monocytes (%) (Auto) 9.8 % Eosinophils (%) (Auto) 4.2 % Basophils (%) (Auto) 0.3 % Neutrophils # (Auto) 2.20 1.4-6.5 K/uL Lymphocytes # (Auto) 0.24 1.2-3.4 K/uL Monocytes # (Auto) 0.28 0.11-0.59 K/uL Eosinophils # (Auto) 0.12 0-0.5 K/uL Basophils # (Auto) 0.01 0-0.2 K/uL RDW Standard Deviation 55.8 36.4-46.3 fL RDW Coefficient of Variation 17.9 11.5-14.5 % Immature Granulocyte % (Auto) 0.3 % Immature Granulocyte # (Auto) 0.01 0.00-0.02 K/uL Ovalocytes 1+ Total Bilirubin 0.9 0.2-1 mg/dl Aspartate Amino Transf (AST/SGOT) 30 15-37 U/L Alanine Aminotransferase (ALT/SGPT) 18 12-78 U/L Alkaline Phosphatase 57 45-117 U/L Total Protein 5.6 6.4-8.2 gm/dl Albumin 3.1 3.4-5.0 gm/dl Globulin 2.5 2.5-4.0 gm/dl Albumin/Globulin Ratio 1.2 0.9-2 Test 03/21/17 07:35 03/21/17 11:22 Range/Units Bedside Glucose 134 196 70-99 mg/dl
[2017-03-21] MEDS ORDERED: FERR1TAB23 OR (14:07)
--- NOTE | 2017-03-21 14:21 | Discharge Instructions ---
Discharge Instructions Date of Service Mar 21, 2017. Admission Reason for Admission: Hepatic Encephalopathy Discharge Discharge Diagnosis / Problem: cirrohsis, ascites, chronic kidney disease, diabetes, thrombocytopenia Discharge Goals Goal(s): Decrease discomfort, Improve function, Increase independence, Improve disease control Activity Recommendations Activity Limitations: per Instructions/Follow-up section Exercise/Sports Limitations: until after follow-up appointment May Resume Sexual Activity: after follow-up appointment . Instructions / Follow-Up Instructions / Follow-Up isposition: discharge back [facility] and continue with [facility] Follow up appointments: 03/24/2017 11:00 AM Anastacio Garza MD [facility] 03/29/2017 2:15 PM Manuel Brown MD Hematology/Oncology [facility] 05/04/2017 2:20 PM Alona Chong MD Nephrology, [facility] can call [phone] or [phone] if needs earlier nephrology follow up appointment Current Hospital Diet Patient's current hospital diet: Low Sodium Diet (2gm Na), Diabetes Type 2 Diet Discharge Diet Recommended Diet: Low Sodium Diet (2gm Na), Diabetes Type 2 Diet Procedures Procedures Performed: paracentesis, endoscopy Pending Studies Studies pending at discharge: no Laboratory Results 03/21/17 04:46 Red Blood Count 2.92, Mean Corpuscular Volume 84.9, Mean Corpuscular Hemoglobin 26.7, Mean Corpuscular Hemoglobin Concent 31.5, Mean Platelet Volume 9.8, Neutrophils (%) (Auto) 77.0, Lymphocytes (%) (Auto) 8.4, Monocytes (%) (Auto) 9.8, Eosinophils (%) (Auto) 4.2, Basophils (%) (Auto) 0.3, Neutrophils # (Auto) 2.20, Lymphocytes # (Auto) 0.24, Monocytes # (Auto) 0.28, Eosinophils # (Auto) 0.12, Basophils # (Auto) 0.01 03/21/17 04:46 Test 03/15/17 22:30 03/16/17 00:18 03/16/17 01:18 03/16/17 08:00 Polychromasia 1+ Activated Partial Thromboplast Time 29.8 SECONDS (21.0-31.0) Partial Thromboplastin Ratio 1.1 Magnesium Level 2.2 mg/dl (1.8-2.4) Direct Bilirubin 0.2 mg/dl (0-0.2) Urine Color YELLOW Urine Appearance CLEAR (CLEAR) Urine pH 5.0 (4.5-7.5) Urine Specific [place] 1.014 (1.000-1.030) Urine Protein NEG (NEG) Urine Glucose (UA) NEG (NEG) Urine Ketones NEG (NEG) Urine Occult Blood NEG (NEG) Urine Nitrite NEG (NEG) Urine Bilirubin NEG (NEG) Urine Urobilinogen NEG (NEG) Urine Leukocyte Esterase NEG (NEG) Urine WBC (Auto) 0 /hpf (0-5) Urine RBC (Auto) 0-4 /hpf (0-4) Urine Hyaline Casts (Auto) 1-5 /lpf (0-5) Urine Epithelial Cells (Auto) 0-5 /lpf (0-5) Urine Bacteria (Auto) NEG (NEG) Troponin I 0.048 ng/ml (0-0.045) Hypochromasia PRESENT Lactic Acid Level 2.2 mmol/L (0.4-2.0) Lipase 81 U/L (73-393) Test 03/16/17 22:30 03/17/17 05:59 03/18/17 06:15 03/18/17 07:22 Urine Random Sodium 41 mEq/L Hypersegmented Polys 1+ Ammonia 37.0 umol/L (11-32) Stool Occult Blood POSITIVE (NEGATIVE) Red Blood Cell Morphology Unremarkable Test 03/19/17 06:42 03/20/17 00:00 03/20/17 08:04 03/21/17 04:46 Anisocytosis PRESENT Peritoneal Fluid Color YELLOW Peritoneal Fluid Appearance CLOUDY Peritoneal Fluid WBC 274 /uL (0-300) Peritoneal Fluid RBC 3000 /uL Peritoneal Fld Mononuclear WBCs (%) 68.0 % Peritoneal Fld Polynuclear WBCs (%) 32.0 % Peritoneal Fluid Total Protein 2.9 g/dl Peritoneal Fluid Albumin 1.7 g/dl Peritoneal Fluid Amylase 19 U/L Prothrombin Time 13.8 SECONDS (9.0-12.0) Prothromb Time International Ratio 1.3 (0.9-1.1) White Blood Count 2.86 K/uL (4.8-10.8) Red Blood Count 2.92 M/uL (4.7-6.1) Hemoglobin 7.8 g/dL (14.0-18.0) Hematocrit 24.8 % (42-52) Mean Corpuscular Volume 84.9 fL (80-100) Mean Corpuscular Hemoglobin 26.7 pg (25-34) Mean Corpuscular Hemoglobin Concent 31.5 g/dl (32-36) Platelet Count 55 K/uL (130-400) Mean Platelet Volume 9.8 fL (7.4-10.4) Neutrophils (%) (Auto) 77.0 % Lymphocytes (%) (Auto) 8.4 % Monocytes (%) (Auto) 9.8 % Eosinophils (%) (Auto) 4.2 % Basophils (%) (Auto) 0.3 % Neutrophils # (Auto) 2.20 K/uL (1.4-6.5) Lymphocytes # (Auto) 0.24 K/uL (1.2-3.4) Monocytes # (Auto) 0.28 K/uL (0.11-0.59) Eosinophils # (Auto) 0.12 K/uL (0-0.5) Basophils # (Auto) 0.01 K/uL (0-0.2) RDW Standard Deviation 55.8 fL (36.4-46.3) RDW Coefficient of Variation 17.9 % (11.5-14.5) Immature Granulocyte % (Auto) 0.3 % Immature Granulocyte # (Auto) 0.01 K/uL (0.00-0.02) Ovalocytes 1+ Anion Gap 8.0 mmol/L (3-11) Est Creatinine Clear Calc Drug Dose 19.7 ml/min Estimated GFR () 20.3 Estimated GFR (Non- 17.5 BUN/Creatinine Ratio 19.9 (10-20) Calcium Level 8.2 mg/dl (8.5-10.1) Total Bilirubin 0.9 mg/dl (0.2-1) Aspartate Amino Transf (AST/SGOT) 30 U/L (15-37) Alanine Aminotransferase (ALT/SGPT) 18 U/L (12-78) Alkaline Phosphatase 57 U/L (45-117) Total Protein 5.6 gm/dl (6.4-8.2) Albumin 3.1 gm/dl (3.4-5.0) Globulin 2.5 gm/dl (2.5-4.0) Albumin/Globulin Ratio 1.2 (0.9-2) Test 03/21/17 11:22 Bedside Glucose 196 mg/dl (70-99) Date/Time Source Procedure Growth Status 03/16/17 20:00 Stool C.difficile Toxin B Gene (PCR) - Final Positive for C. difficile toxin B gene Complete 03/20/17 00:00 Ascities Fluid Acid Fast Stain Pending Received 03/20/17 00:00 Ascities Fluid Mycobacterial Culture Pending Received Hemoglobin A1c Test 02/07/17 00:51 Range/Units Estimated Average Glucose 131 mg/dl Hemoglobin A1c 6.2 H 4.5-5.6 % Medical Emergencies . Who to Call and When: Medical Emergencies: If at any time you feel your situation is an emergency, please call 911 immediately. . Non-Emergent Contact Non-Emergency issues call your: Primary Care Provider, Senior Javascript Engineer . . "Provider Documentation" section prepared by Ronal Parrish. . VTE Core Measure Inpt VTE Proph given/why not?: SCD's
[2017-03-21 14:23] VITALS: BP 92/54; PULSE 74; TEMP 36.5; O2SAT 99
--- NOTE | 2017-03-21 14:23 | Discharge Summary ---
Discharge Summary Date of Service Mar 21, 2017. Discharge Summary Admission Date: Mar 16, 2017 at 01:58 Discharge Date: Mar 21, 2017 Discharge Disposition: Personal care (discharge back [facility] and continue with [facility]) Principal Diagnosis: altered mental status, cirrohsis, ascites, chronic kidney disease, diabetes, thrombocytopenia Procedures: paracentesis Consultations: nephrology, gastroenterology Medication Reconciliation New Medications: Ferrous Sulfate (Iron) 325 Mg Tab 1 TAB OR DAILY for 30 Days, #30 TAB 1 Refill Furosemide (Furosemide) 20 Mg Tab 20 MG PO BID17 for 30 Days, #60 TAB Potassium Chloride (Klor-Con M20) 20 Meq Tabcr 20 MEQ PO BID for 30 Days, #60 TAB Rifaximin (Xifaxan) 550 Mg Tab 550 MG PO BID for 30 Days, #60 TAB Spironolactone (Spironolactone) 25 Mg Tab 25 MG PO QAM for 30 Days, #30 TAB Vancomycin HCl (Vancomycin HCl) 125 Mg/2.5 Ml Susp 125 MG PO DIRECTED for 49 Days, #86 TAB week 1 to 2: vancomycin 125 mg QID x 14 days then: week 3: vancomycin 125 mg BID x 7 days then: week 4: vancomycin 125 mg daily x 7 days then: week 5: vancomycin 125 mg every other day x 7 days then: week 6 to 7: vancomycin 125 mg every three days x 14 days Continued Medications: Folic Acid (Folic Acid) 1 Mg Tab 1 MG PO DAILY Insulin Aspart (Novolog) 100 Units/Ml Inj SQ ACHS SLIDING SCALE 1 UNIT FOR EVERY 20 MG/DL INCREASE IN GLUCOSE ABOVE 150 Insulin Glargine (Lantus Solostar) 100 Unit/Ml Inj 10 UNITS SQ HS Metoprolol Succ (Toprol Xl) (Toprol-Xl) 25 Mg Tabcr 12.5 MG PO DAILY for 30 Days, #15 TAB Nitroglycerin (Nitrostat) 0.4 Mg Tab 0.4 MG UT UD PRN for Chest Pain Ondansetron Hcl (Zofran) 4 Mg Tab 4 MG PO Q6H PRN for Nausea, TAB Discontinued Medications: Acetaminophen Tab (Tylenol) 325 Mg Tab 650 MG PO Q4 PRN for Fever, TAB NOT TO EXCEED 3000MG APAP/24HR Furosemide (Lasix) 80 Mg Tab 120 MG PO TID for 30 Days, #45 TAB Lactulose (Chronulac) 10 Gm/15 Ml Syrp 15 ML PO TID PRN for Constipation Metolazone (Metolazone) 5 Mg Tab 5 MG PO BID for 30 Days, #60 TAB Pantoprazole (Protonix) 40 Mg Tab 40 MG PO DAILY, TAB Potassium Chloride (Klor-Con Sprinkle) 10 Meq Cap 40 MEQ PO BIDM Admission Information HPI (per Admitting provider): CHIEF COMPLAINT: Altered mental status per records. HISTORY OF PRESENT ILLNESS: History obtained from the patient's daughter and records. Unable to obtain history from the patient secondary to obtunded state. Medical history significant for cirrhosis secondary to NAFLD, SSS sp PPM, 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 as per records, hypertension, hyperlipidemia; history of HOCM status post myomectomy, nonischemic cardiomyopathy, EF 65%-70%, COPD, DM2, insulin requiring; sleep apnea; chronic renal insufficiency (baseline creatinine of 2.9), chronic anemia (baseline hemoglobin 8 to 9). bladder cancer as per records. Recent confinement from 02/06/2017 through February 2017 for cirrhosis, ascites sp paracentesis. Patient also noted to have C. diff. Discharged on vancomycin. Patient seen by Nephrology for volume overload, Discharged on home diuretics and midodrine course. During confinement, Palliative Care consulted in light of recurrent admissions related to liver disease this year. As per note, the patient and daughter aware that disease is incurable, but the patient still willing to undergo procedures, confinement if necessary to manage exacerbation of chronic liver disease. Patient had a followup with PCP about 2 weeks ago. As per last outpatient note, the patient does not want transition at that time to hospice. PCP concerned about the patient's stay at [facility] being inadequate for patient's comorbidities/functionality. Outpx creatinine done during PCP visit was noted to be at 4.7. Unclear if patient's providers aware of creatinine bump. Yesterday, the patient noted to be sleepy, question of chest pain. At the Emergency Room, noted to be nauseous. w subsequent emesis. No complaints of abdominal pain as per daughter. Patient belly distention actually better as per daughter. MEDICAL HISTORY: As above. SURGICAL HISTORY: Pacemaker placement, heart surgery, urologic procedure, and myomectomy. HOME MEDICATIONS: Tylenol, folic acid, NovoLog, Lantus, Chronulac, Nitrostat, Zofran, Protonix, and Klor-Con. ALLERGIES: ALLERGIC TO CODEINE AND PROPRANOLOL. FAMILY HISTORY: Heart disease. PERSONAL AND SOCIAL HISTORY: Past tobacco abuse. No chronic intake of alcoholic beverage. Worked as [employer] in his younger years. Currently, personal long-term resident. REVIEW OF SYSTEMS: Could not be obtained. Physical Exam (per Admitting): PHYSICAL EXAMINATION: VITAL SIGNS: Blood pressure was noted to be 99/50, pulse rate 90, RR 18 T 37 O2 sats 98 on room air. GENERAL: Noted to be obtunded. No respiratory distress. SKIN: Pallor, cool. HEENT: Pale palpebral conjunctivae. No ptosis. Dry buccal mucosa. NECK: Short, supple. CHEST: Decreased effort. CV: Regular rate and rhythm palpable LE pulses. ABDOMEN: distention, nontender. EXTREMITIES: Minimal LE edema. No tenderness. No gross deformities NE : obtunded. No facial asymmetry. Gait and stance not assessed. Hospital Course This is an 87 year old male with history of SHANE cirrhosis and recurrent ascites , CKD stage IV, DM2, COPD, Paroxysmal A. Fib presents with confusion, weakness, increased abdominal fluid, and excessive diarrhea Hospital Course 03/16 patient has had recurrent ascites during previous admission, he required multiple paracentesis and his diuretic dose was increased at that time He states that since the discharge, he has been having diarrhea and some episodes of vomiting became confused and was brought to the ED from [facility] Noted to have worsening kidney function and elevated ammonia level Seems that he may have stopped taking his lactulose due to diarrhea for now, hold diuretics Lactulose enema if needed, depending on mental status Rifaximin started as per GI Abdominal U/S suggests moderate to large ascites Ultrasound-guided diagnostic and therapeutic paracentesis with removal of 5 liters of ascites patient has a history of C. Diff was treated for this previously diarrhea persists even without lactulose use checking C. diff and stool cultures 03/17 positive for C. Diff and multiple diarrhea episodes started on a tapering vancomycin dose continue Rifaximin for now, holding diuretics and started albumin 03/18 continues to have diarrhea hypokalemia is persistent; adding both IV and oral supplementation continue tapering dose of Vancomycin as per GI for now, started on albumin started on Rifaximin holding diuretics due to intravascular depletion/kidney injury 03/19 plan is for continued albumin, hold diuretics continue electrolyte replacement 03/20 patient developing slightly worsening distention ascites has been noted to be moderate to large on earlier imagining as per nephrology, may need to restart diuretics continue tapering dose of Vanco EGD on 03/20 Findings: Small (< 5 mm) varices were found in the lower third of the esophagus. No stigmata of bleeding or red miryam sign. Mild portal hypertensive gastropathy was found in the gastric body. The duodenal bulb and 2nd part of the duodenum were normal. A medium diverticulum was found in the second part of the duodenum. Impression: - Small (< 5 mm) esophageal varices with no stigmata of bleed. - Portal hypertensive gastropathy. - Normal duodenal bulb and 2nd part of the duodenum. - Duodenal diverticulum. - No specimens collected. Recommendation: - Return patient to [facility] for ongoing care. - Resume regular diet. - Iron supplementation. - Not a candidate for BB in view of renal failure. Other GI recommendations 03/21/17 - Start PO iron supplement - C.diff - vancomycin 125 mg QID x 14 days - vancomycin 125 mg BID x 7 days - vancomycin 125 mg daily x 7 days - vancomycin 125 mg every other day x 7 days - vancomycin 125 mg every three days x 14 days - Cirrhosis - start Xifaxan 550 BID - OK to use lactulose enemas if needed Other issues Acute Kidney Injury superimposed on CKD stage IV patient with creatinine in the upper 2's during previous admission due to recurrent fluid-build up - required increased dose of diuretics unfortunately, possibly due to diarrhea and fluid loss - creatinine/kidney function worsened creatinine on admission >4 Nephrology consult recommendations 03/21/17: overall clinically improving. will need to continue chronic diuretics as an outpt as we try to control his ascites and chronic volume overload Hx. of Myelodysplastic Syndrome Chronic Thrombocytopenia has chronic anemia due to the 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 will only transfuse if Hg < 7 due to liver cirrhosis, possible portal hypertension Currently Hgb is greater than 7 - we will monitor Monitor platelets - avoiding heparin Insulin Dependent DM2 well controlled; recent Ha1c = 6.2% sliding scale insulin when inpatient Sick Sinus Syndrome history of permanent pacemaker HTN monitor blood pressure b-noman continued for now Disposition: discharge back [facility] and continue with [facility] Follow up appointments: 03/24/2017 11:00 AM Anastacio Garza MD [facility] 03/29/2017 2:15 PM Manuel Brown MD Hematology/Oncology [facility] 05/04/2017 2:20 PM Alona Chong MD Nephrology, [facility] can call [phone] or [phone] if needs earlier nephrology follow up appointment Total time spent on discharge = 60 minutes This includes examination of the patient, discharge planning, medication reconciliation, and communication with other providers. Discharge Instructions Disposition: discharge back [facility] and continue with [facility] Follow up appointments: 03/24/2017 11:00 AM Anastacio Garza MD [facility] 03/29/2017 2:15 PM Manuel Brown MD Hematology/Oncology [facility] 05/04/2017 2:20 PM Alona Chong MD Nephrology, [facility] can call [phone] or [phone] if needs earlier nephrology follow up appointment
--- NOTE | 2017-03-22 11:08 | EDITING REQUIRED CODING QUERY ---
CODING QUERY To promote full compliance with coding requirements relating to patient care, provider participation is requested in all cases of pre coder uncertainty. Please assist us with the question(s) below: Coding Question(s): Please clarify, in your clinical opinion, regarding the Acute Renal Failure. ( ) Acute Kidney Failure likely with ATN ( x) Acute Kidney Failure likely without ATN Physician's Response(s): Thank you Adriana Merrill Principal Diagnosis: "_that condition established after study, to be chiefly responsible for occasioning the admission of the patient to the hospital for care." Co-Existing Principal Diagnosis: "_when two or more diagnoses equally meet the criteria for principal diagnosis as determined by the circumstances of admission, diagnostic work up, and/or therapy provided, and the Alphabetic Index, Tabular List, or another coding guideline does not provide sequencing direction, any one of the diagnoses may be sequenced first." "When the physician has documented what appears to be a current diagnosis in the body of the record, but has not included the diagnosis in the final diagnostic statement, the physician should be asked whether the diagnosis should be added." (Source Coding Clinic 2 QTR90. p3-4)
== END 2017-03-21 16:00 | disposition home or self-care (01) | DRG 442 ==
LOC: EDBD 22:46 → C.EDA 22:47 → C.MS4W 03-16 01:58 → ENRESERV 03-16 02:15
PROVIDERS: ADMIT Internal Medicine; ATTEND Hospitalist
PROC: 0W9G3ZZ Drainage of Peritoneal Cavity, Percutaneous Approach (ICD-10-PCS; principal; 2017-03-20 12:10)
PROC: 0DJ08ZZ Inspection of Upper Intestinal Tract, Via Natural or Artificial Opening Endoscopic (ICD-10-PCS; 2017-03-20 12:10)
PROC: 0DJD8ZZ Inspection of Lower Intestinal Tract, Via Natural or Artificial Opening Endoscopic (ICD-10-PCS; 2017-03-20 12:10)
DX: K75.81 Nonalcoholic steatohepatitis (NASH) (principal); A04.72 Enterocolitis due to Clostridium difficile, not specified as recurrent; R18.8 Other ascites; N17.9 Acute kidney failure, unspecified; N18.4 Chronic kidney disease, stage 4 (severe); I85.10 Secondary esophageal varices without bleeding; K92.1 Melena; K72.90 Hepatic failure, unspecified without coma; K31.89 Other diseases of stomach and duodenum; E87.6 Hypokalemia; D46.9 Myelodysplastic syndrome, unspecified; D69.59 Other secondary thrombocytopenia; E11.22 Type 2 diabetes mellitus with diabetic chronic kidney disease; K57.30 Diverticulosis of large intestine without perforation or abscess without bleeding; K57.10 Diverticulosis of small intestine without perforation or abscess without bleeding; K64.8 Other hemorrhoids; J44.9 Chronic obstructive pulmonary disease, unspecified; I48.0 Paroxysmal atrial fibrillation; I13.10 Hypertensive heart and chronic kidney disease without heart failure, with stage 1 through stage 4 chronic kidney disease, or unspecified chronic kidney disease; I25.5 Ischemic cardiomyopathy; G47.33 Obstructive sleep apnea (adult) (pediatric); K21.9 Gastro-esophageal reflux disease without esophagitis; E66.9 Obesity, unspecified; Z79.899 Other long term (current) drug therapy; Z66 Do not resuscitate; Z79.4 Long term (current) use of insulin; Z95.0 Presence of cardiac pacemaker; Z85.51 Personal history of malignant neoplasm of bladder; Z68.34 Body mass index [BMI] 34.0-34.9, adult; Z87.891 Personal history of nicotine dependence

== ENCOUNTER 2017-04-13 16:35 | Inpatient (IN) | payer OTHER ==
[~2017-04-13] VITALS: Ht 182.9 cm; Wt 108.2 kg
[~2017-04-13 16:35] MED LIST changes: -ACET325T96 PO; -FAMO20TA11 PO; +FERR1TAB23 OR; -FURO80TA63 PO; -LACT10SO17 PO; +LSX20 PO; +MCRK20 PO; -PANT40TA PO; -POTA10TA PO; -PRMT25 PO; +SPR25 PO; +XFX550 PO; -ZRX5 PO
[2017-04-13] MEDS ORDERED: FRS/40 PO (17:07)
[2017-04-13 17:08] LABS: HEMATOCRIT 27.2 % (42-52); MEAN CORPUSCULAR HEMOGLOBIN 27.2 pg (25-34); MEAN CORPUSCULAR HGB CONC 30.9 g/dl (32-36); RED BLOOD COUNT 3.09 M/uL (4.7-6.1); WHITE BLOOD COUNT 3.74 K/uL (4.8-10.8)
[2017-04-13] MEDS ORDERED: FERR1TAB23 PO (17:08)
[2017-04-13 17:24] LABS: BUN/CREATININE RATIO 16.9 (10-20); CREATININE 3.03 mg/dl (0.60-1.40); MAGNESIUM 2.1 mg/dl (1.8-2.4); POTASSIUM 4.8 mmol/L (3.5-5.1)
[2017-04-13 17:40] LABS: BASO % 0.3 %; BASO ABS # 0.01 K/uL (0-0.2); COMPLETE YES; EOS % 2.4 %; IG% 0.3 %; LYMPH % 9.9 %; LYMPH ABS # 0.37 K/uL (1.2-3.4); MEAN PLATELET VOLUME 9.5 fL (7.4-10.4); NEUT % 76.1 %; OVALOCYTES 1+; PLATELET COUNT 62 K/uL (130-400); SCHISTOCYTES 1+
--- NOTE | 2017-04-13 17:40 | DIAGNOSTIC IMAGING REPORT ---
CHEST ONE VIEW PORTABLE CLINICAL HISTORY: Congestive failure COMPARISON STUDY: 03/15/2017 FINDINGS: The heart is enlarged. There is aortic tortuosity/ectasia. There are postsurgical changes of a midline sternotomy. As a left subclavian dual-chamber central venous pacemaker. There is no focal pulmonary consolidation. There is mild pulmonary vascular congestion.[ There are equivocal trace pleural effusions. IMPRESSION: 1. Cardiomegaly and radiographic evidence of mild pulmonary vascular congestion. 2. No evidence of focal pulmonary consolidation Electronically signed by: Gurinder Medina M.D. 04/13/2017 5:38 PM Dictated Date/Time: 04/13/2017 5:37 PM
[2017-04-13 17:54] LABS: INR 1.2 (0.9-1.1); PARTIAL THROMBOPLASTIN RATIO 1.2; PROTHROMBIN TIME (PATIENT) 13.2 SECONDS (9.0-12.0)
[2017-04-13] MEDS ORDERED: MAGNESIUM HYDROXIDE SUSP 30 ML UDC PO PRN (18:00)
[2017-04-13] MEDS ORDERED: NITROGLYCERIN 0.4 MG SL PER TAB CHARGE UT PRN (18:00)
[2017-04-13] MEDS ORDERED: ONDANSETRON INJ 2 MG/ML 2 ML VIAL IV PRN (18:00)
[2017-04-13] MEDS ORDERED: ONDANSETRON 4 MG TAB PO PRN (18:00)
[2017-04-13] MEDS ORDERED: ALUMINUM/MAGNESIUM/SIMETH (MAALOX MAX) 30 ML UDC PO PRN (18:00)
[2017-04-13] MEDS ORDERED: DEXTROSE 50% 50 ML SYR IV PRN (18:15)
[2017-04-13] MEDS ORDERED: GLUCAGON FOR INJ 1 MG VIAL SQ PRN (18:15)
[2017-04-13] MEDS ORDERED: GLUCOSE 10 TABS/TUBE PO PRN (18:15)
[2017-04-13] MEDS ORDERED: GLUCOSE 40% GEL 15 GM TUBE PO PRN (18:15)
[2017-04-13 18:20] VITALS: O2SAT 100; BMI 31.9
--- NOTE | 2017-04-13 18:33 | DIAGNOSTIC IMAGING REPORT ---
LIMITED ABDOMINAL ULTRASOUND FOR ASCITES EVALUATION CLINICAL HISTORY: Ascites COMPARISON STUDY: 03/16/2017 FINDINGS: The liver has a cirrhotic morphology. There is a moderate to large volume of ascites, less than was present on March 16, 2017 IMPRESSION: 1. Moderate to large volume of ascites. The volume of ascites is less than was present on March 16, 2017 2. Cirrhotic morphology of the liver Electronically signed by: Gurinder Medina M.D. 04/13/2017 6:32 PM Dictated Date/Time: 04/13/2017 6:28 PM
--- NOTE | 2017-04-13 18:52 | EMERGENCY ROOM VISIT NOTE ---
History Report prepared by Li: Nelda Aburto Under the Supervision of: Dr. Juan Marte M.D. First contact with patient: 16:41 Stated Complaint: LOWER LEGS-SWELLING, DISTENDED ABD History of Present Illness The patient is a 87 year old male who presents to the Emergency Room with complaints of increasing abdominal bloating beginning 3 days ago. The patient noted bilateral leg swelling which began around the same time as him abdominal bloating. The patient denies any abdominal pain, fever, vomiting or diarrhea. The patient is from [facility] living. The patient has a history of renal failure and often has episodes where he gets filled up with fluid. He denies any chest pain or shortness of breath. Source of History: patient Onset: 3 days ago Position: abdomen Quality: other (bloating) Timing: other (increasing) Associated Symptoms: No fevers, No chest pain, No SOB, No nausea, No vomiting, No abdominal pain, No diarrhea Note: The patient notes bilateral leg swelling. Review of Systems See HPI for pertinent positives & negatives. A total of 10 systems reviewed and were otherwise negative. 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), type 2 with renal complications (6) Dyslipidemia (7) History of ankle fracture (8) History of bladder cancer (9) Hypertrophic cardiomyopathy (10) Myelodysplastic syndrome (11) Paroxysmal atrial fibrillation (12) Sinoatrial node dysfunction (13) Sleep apnea, obstructive (14) Thrombocytopenia Surgical Problems: (1) Status post cardiac pacemaker procedure (2) Status post myomectomy Family History FHx: heart disease Social History Smoking Status: Former Smoker Alcohol Use: none Drug Use: none Marital Status: Housing Status: assisted living Occupation Status: unemployed Current/Historical Medications Scheduled Ferrous Sulfate (Iron), 325 MG PO DAILY Folic Acid (Folic Acid), 1 MG PO DAILY Furosemide (Lasix), 40 MG PO BID17 Insulin Aspart (Novolog), SQ ACHS Insulin Glargine (Lantus Solostar), 14 UNITS SQ HS Metoprolol Succ (Toprol Xl) (Toprol-Xl), 12.5 MG PO DAILY Potassium Chloride (Klor-Con M20), 20 MEQ PO BID Rifaximin (Xifaxan), 550 MG PO BID Spironolactone (Spironolactone), 25 MG PO QAM Vancomycin HCl (Vancomycin HCl), 125 MG PO DIRECTED Scheduled PRN Nitroglycerin (Nitrostat), 0.4 MG UT UD PRN for Chest Pain Ondansetron Hcl (Zofran), 4 MG PO Q6H PRN for Nausea Allergies Coded Allergies: Propranolol (Verified Allergy, Unknown, 03/15/17) Codeine (Verified Adverse Reaction, Mild, NOTED "DOESNT TOLERATE WELL" , 03/15/17) Physical Exam Vital Signs Date Time Temp Pulse Resp B/P (MAP) Pulse Ox O2 Delivery O2 Flow Rate FiO2 04/13/17 16:44 36.0 99 16 119/80 98 Room Air Physical Exam Constitutional: Vital signs reviewed. Eyes: Pupils are equal round reactive to light. Conjunctiva are noninjected. ENT: Pharynx is clear without erythema or exudate. Mucous membranes are moist. Neck supple without meningeal signs. Respiratory: Clear to auscultation bilaterally. Breath sounds are equal bilaterally. Cardiovascular: Regular rate and rhythm. No rubs or gallops. GI: Ascites in abdomen. Bowel sounds are present. No tenderness. Musculoskeletal: Bilateral pitting edema in lower extremities. Integumentary: No cyanosis. Neurological: The patient is awake and alert. No focal deficits. Psychiatric: Normal affect. Medical Decision & Procedures ER Provider Diagnostic Interpretation: Radiology results as stated below per my review and the radiologist's interpretation: CHEST ONE VIEW PORTABLE FINDINGS: The heart is enlarged. There is aortic tortuosity/ectasia. There are postsurgical changes of a midline sternotomy. As a left subclavian dual-chamber central venous pacemaker. There is no focal pulmonary consolidation. There is mild pulmonary vascular congestion.[ There are equivocal trace pleural effusions. IMPRESSION: 1. Cardiomegaly and radiographic evidence of mild pulmonary vascular congestion. 2. No evidence of focal pulmonary consolidation Electronically signed by: Gurinder Medina M.D. Laboratory Results 04/13/17 16:57 Red Blood Count 3.09, Mean Corpuscular Volume 88.0, Mean Corpuscular Hemoglobin 27.2, Mean Corpuscular Hemoglobin Concent 30.9, Mean Platelet Volume 9.5, Neutrophils (%) (Auto) 76.1, Lymphocytes (%) (Auto) 9.9, Monocytes (%) (Auto) 11.0, Eosinophils (%) (Auto) 2.4, Basophils (%) (Auto) 0.3, Neutrophils # (Auto ) 2.85, Lymphocytes # (Auto) 0.37, Monocytes # (Auto) 0.41, Eosinophils # (Auto ) 0.09, Basophils # (Auto) 0.01 04/13/17 16:57 Test 04/13/17 16:57 04/13/17 17:29 White Blood Count 3.74 K/uL (4.8-10.8) Red Blood Count 3.09 M/uL (4.7-6.1) Hemoglobin 8.4 g/dL (14.0-18.0) Hematocrit 27.2 % (42-52) Mean Corpuscular Volume 88.0 fL (80-100) Mean Corpuscular Hemoglobin 27.2 pg (25-34) Mean Corpuscular Hemoglobin Concent 30.9 g/dl (32-36) Platelet Count 62 K/uL (130-400) Mean Platelet Volume 9.5 fL (7.4-10.4) Neutrophils (%) (Auto) 76.1 % Lymphocytes (%) (Auto) 9.9 % Monocytes (%) (Auto) 11.0 % Eosinophils (%) (Auto) 2.4 % Basophils (%) (Auto) 0.3 % Neutrophils # (Auto) 2.85 K/uL (1.4-6.5) Lymphocytes # (Auto) 0.37 K/uL (1.2-3.4) Monocytes # (Auto) 0.41 K/uL (0.11-0.59) Eosinophils # (Auto) 0.09 K/uL (0-0.5) Basophils # (Auto) 0.01 K/uL (0-0.2) RDW Standard Deviation 57.1 fL (36.4-46.3) RDW Coefficient of Variation 17.7 % (11.5-14.5) Immature Granulocyte % (Auto) 0.3 % Immature Granulocyte # (Auto) 0.01 K/uL (0.00-0.02) Ovalocytes 1+ Schistocytes 1+ Anion Gap 8.0 mmol/L (3-11) Est Creatinine Clear Calc Drug Dose 21.7 ml/min Estimated GFR () 20.4 Estimated GFR (Non- 17.6 BUN/Creatinine Ratio 16.9 (10-20) Calcium Level 8.0 mg/dl (8.5-10.1) Magnesium Level 2.1 mg/dl (1.8-2.4) Total Bilirubin 0.4 mg/dl (0.2-1) Direct Bilirubin 0.1 mg/dl (0-0.2) Aspartate Amino Transf (AST/SGOT) 47 U/L (15-37) Alanine Aminotransferase (ALT/SGPT) 36 U/L (12-78) Alkaline Phosphatase 128 U/L (45-117) Ammonia 43.7 umol/L (11-32) Pro-B-Type Natriuretic Peptide 5442 pg/ml (0-1800) Total Protein 6.3 gm/dl (6.4-8.2) Albumin 2.5 gm/dl (3.4-5.0) Prothrombin Time 13.2 SECONDS (9.0-12.0) Prothromb Time International Ratio 1.2 (0.9-1.1) Activated Partial Thromboplast Time 30.8 SECONDS (21.0-31.0) Partial Thromboplastin Ratio 1.2 Laboratory results as reviewed by me. ED Course 1642: The patient was evaluated in room B2. A complete history and physical exam was performed. 1734: I spoke with Dr. Pearson of [facility]. We discussed the patient and his results. The patient will be further evaluated. Medical Decision This is a 87-year-old male presents with swelling to his belly and legs. Differential diagnosis includes cirrhosis, ascites, SBP, metabolic derangement, liver failure, CHF. I did perform a limited focused review of portions of the patient's old chart on the electronic medical record. The patient was admitted on March 16 for ascites, AMS, thrombocytopenia, C-diff, and colitis. I did evaluate the patient as noted above. The patient appears to have ascites and dependent edema. He has a history of anasarca and ascites from liver disease. He has no abdominal tenderness or fever to suggest SBP. IV access was established. The patient was placed on a continuous cardiac surgeon. I did order and personally review the patient's chest x-ray as described above. I did order and review the patient's blood work as noted in the electronic medical record. I did discuss case with the hospitalist and disease case manager rn. Blood Pressure Screening Patient's blood pressure: Normal blood pressure Consults Time Called: 1731 Consulting Physician: Dr. Johnson Returned Call: [phone] Pearson of [facility]. We discussed the patient and his results. The patient will be further evaluated. Impression Primary Impression: Ascites Additional Impressions: Kidney failure Dependent edema Pancytopenia Scribe Attestation The scribe's documentation has been prepared under my direct and personally reviewed by me in its entirety. I confirm that the note above accurately reflects all work, treatment, procedures, and medical decision making performed by me. Departure Information Dispostion Being Evaluated By Hospitalist Referrals Anastacio Garza M.D. (PCP) Problem Qualifiers Primary Impression: Ascites Ascites type: other type Qualified Codes: R18.8 - Other ascites Additional Impressions: Kidney failure Renal failure chronicity: chronic
[2017-04-13 18:58] VITALS: BP 108/68; PULSE 83; TEMP 36.4; O2SAT 95
--- NOTE | 2017-04-13 19:41 | History and Physical ---
History & Physical Date & Time of Service: Apr 13, 2017 at 19:41 Chief Complaint: Decompensation Of Cirrhosis Of Liver Primary Care Physician: Anastacio Garza M.D. 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 Chronic thrombocytopenia , 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 pt had frequent admission in past few months for decompensated Cirrhosis , worsening of ascites requiring paracentesis Last admission was form Mar 16 to Mar 21 for Hepatic encephalopathy pt presents to ED with complains of worsening of abdominal girth , SOB , worsening of lower ext edema had 5 Liter of paracentesis on last admission has been taking Lasix , Aldactone as instructed for the past few weeks noticed worsening of lower ext swelling , increased ascites to the point it is hard for him to Lay flat no fever or chills no diarrhea -having soft stool due to lactulose , no blood or dark tarry stool no complain of abdominal pain ,no nausea , vomiting appetite fair Past Medical/Surgical History Medical Problems: (1) Anemia Status: Chronic (2) CKD (chronic kidney disease), stage IV Status: Chronic (3) COPD (chronic obstructive pulmonary disease) Status: Chronic (4) DM (diabetes mellitus), type 2 with renal complications Status: Chronic (5) Dyslipidemia Status: Chronic (6) History of ankle fracture Status: Chronic (7) History of bladder cancer Status: Chronic (8) Hypertrophic cardiomyopathy Status: Chronic (9) Myelodysplastic syndrome Status: Chronic (10) Paroxysmal atrial fibrillation Status: Chronic (11) Sinoatrial node dysfunction Status: Chronic (12) Sleep apnea, obstructive Permanent Comment: CPAP Status: Chronic (13) Thrombocytopenia Status: Chronic Surgical Problems: (1) Status post cardiac pacemaker procedure Status: Chronic (2) Status post myomectomy Permanent Comment: for hypertrophic cardiomyopathy Status: Chronic Family History FHx: heart disease Social History Smoking Status: Former Smoker Drug Use: none Marital Status: Occupational Status: unemployed Immunizations History of Influenza Vaccine: Yes History of Tetanus Vaccine?: Yes History of Pneumococcal: Yes History of Hepatitis B Vaccine: Unknown Multi-Drug Resistant Organisms History of MDRO: No Allergies Coded Allergies: Propranolol (Verified Allergy, Unknown, 03/15/17) Codeine (Verified Adverse Reaction, Mild, NOTED "DOESNT TOLERATE WELL" , 03/15/17) Home Medications Scheduled Ferrous Sulfate (Iron), 325 MG PO DAILY Folic Acid (Folic Acid), 1 MG PO DAILY Furosemide (Lasix), 40 MG PO BID17 Insulin Aspart (Novolog), SQ ACHS Insulin Glargine (Lantus Solostar), 14 UNITS SQ HS Metoprolol Succ (Toprol Xl) (Toprol-Xl), 12.5 MG PO DAILY Potassium Chloride (Klor-Con M20), 20 MEQ PO BID Rifaximin (Xifaxan), 550 MG PO BID Spironolactone (Spironolactone), 25 MG PO QAM Vancomycin HCl (Vancomycin HCl), 125 MG PO DIRECTED Scheduled PRN Nitroglycerin (Nitrostat), 0.4 MG UT UD PRN for Chest Pain Ondansetron Hcl (Zofran), 4 MG PO Q6H PRN for Nausea Review of Systems Constitutional: + sweats, + weakness, + fatigue, + problem reported (lower ext swelling ) Respiratory: + shortness of breath, + dyspnea on exertion, + dyspnea at rest Cardiovascular: + edema Abdomen: + problem reported (increased abdominal girth ) Physical Exam Vital Signs Date Time Temp Pulse Resp B/P (MAP) Pulse Ox O2 Delivery O2 Flow Rate FiO2 04/13/17 18:58 36.4 83 18 108/68 (81) 95 04/13/17 18:20 100 Room Air 04/13/17 17:58 68 16 101/63 100 Room Air 04/13/17 16:44 36.0 99 16 119/80 98 Room Air General Appearance: WD/WN, no apparent distress Head: normocephalic, atraumatic Eyes: PERRL, EOMI Respiratory/Chest: + decreased breath sounds, + rales Cardiovascular: regular rate, rhythm Abdomen/GI: + distended, + pertinent finding (tense ascities , non tender ) Extremities/Musculoskelatal: + pedal edema (+ 2-3 pitting edema ) Neurologic/Psych: alert, oriented x 3 Skin: + pallor, + pertinent finding (multiple talangectesia in face and neck ) Diagnostics Laboratory Results Results Past 24 Hours Test 04/13/17 16:57 04/13/17 17:29 Range/Units White Blood Count 3.74 4.8-10.8 K/uL Red Blood Count 3.09 4.7-6.1 M/uL Hemoglobin 8.4 14.0-18.0 g/dL Hematocrit 27.2 42-52 % Mean Corpuscular Volume 88.0 80-100 fL Mean Corpuscular Hemoglobin 27.2 25-34 pg Mean Corpuscular Hemoglobin Concent 30.9 32-36 g/dl Platelet Count 62 130-400 K/uL Mean Platelet Volume 9.5 7.4-10.4 fL Neutrophils (%) (Auto) 76.1 % Lymphocytes (%) (Auto) 9.9 % Monocytes (%) (Auto) 11.0 % Eosinophils (%) (Auto) 2.4 % Basophils (%) (Auto) 0.3 % Neutrophils # (Auto) 2.85 1.4-6.5 K/uL Lymphocytes # (Auto) 0.37 1.2-3.4 K/uL Monocytes # (Auto) 0.41 0.11-0.59 K/uL Eosinophils # (Auto) 0.09 0-0.5 K/uL Basophils # (Auto) 0.01 0-0.2 K/uL RDW Standard Deviation 57.1 36.4-46.3 fL RDW Coefficient of Variation 17.7 11.5-14.5 % Immature Granulocyte % (Auto) 0.3 % Immature Granulocyte # (Auto) 0.01 0.00-0.02 K/uL Ovalocytes 1+ Schistocytes 1+ Sodium Level 142 136-145 mmol/L Potassium Level 4.8 3.5-5.1 mmol/L Chloride Level 108 98-107 mmol/L Carbon Dioxide Level 25 21-32 mmol/L Anion Gap 8.0 3-11 mmol/L Blood Urea Nitrogen 51 7-18 mg/dl Creatinine 3.03 0.60-1.40 mg/dl Est Creatinine Clear Calc Drug Dose 21.7 ml/min Estimated GFR () 20.4 Estimated GFR (Non- 17.6 BUN/Creatinine Ratio 16.9 10-20 Random Glucose 117 70-99 mg/dl Calcium Level 8.0 8.5-10.1 mg/dl Magnesium Level 2.1 1.8-2.4 mg/dl Total Bilirubin 0.4 0.2-1 mg/dl Direct Bilirubin 0.1 0-0.2 mg/dl Aspartate Amino Transf (AST/SGOT) 47 15-37 U/L Alanine Aminotransferase (ALT/SGPT) 36 12-78 U/L Alkaline Phosphatase 128 45-117 U/L Ammonia 43.7 11-32 umol/L Pro-B-Type Natriuretic Peptide 5442 0-1800 pg/ml Total Protein 6.3 6.4-8.2 gm/dl Albumin 2.5 3.4-5.0 gm/dl Prothrombin Time 13.2 9.0-12.0 SECONDS Prothromb Time International Ratio 1.2 0.9-1.1 Activated Partial Thromboplast Time 30.8 21.0-31.0 SECONDS Partial Thromboplastin Ratio 1.2 Diagnostic Radiology USG OF ABDOMEN : IMPRESSION: 1. Moderate to large volume of ascites. The volume of ascites is less than was present on March 16, 2017 2. Cirrhotic morphology of the liver CHEST XRAY : IMPRESSION: 1. Cardiomegaly and radiographic evidence of mild pulmonary vascular congestion. 2. No evidence of focal pulmonary consolidation Impression Assessment and Plan RECURRENT ASCITES /SHANE CIRRHOSIS -recurrent ascites in setting of SHANE Cirrhosis -Diagnosed with Liver biopsy in 2003 for elevated LFT's -with evidence of significant portal and periportal fibrosis -[facility]s [facility] -required paracentesis multiple times in past USG of abdomen shows moderate to large paracentesis -no clinical evidence of SBP -no fever or chills, no abdominal tenderness -pt is continued with Rifaximin 550 BID -on Lasix and Aldactone -GI eval requested , will need paracentesis and possible IV Albumin pre and post procedure for large amount of ascitic fluid drainage -will defer to GI -no evidence of hepatic encephalopathy , no confusion , lethargy noted , conversing appropriately CKD STAGE 4/5 : Cr is approx baseline pt will need continued diuresis for ascites monitor PRP closely TYPE 2 DM : insulin dependent cont Basal Lantus and insulin SSI Hb A1C in AM labs SLEEP APNEA; ordered for CPAP at night RECURRENT C DIFF : Cont of PO Vancomycin taper HX OF MYELODYSPLASTIC SYNDROME : not on any treatment pancytopenia due to combination of MDS and advanced Cirrhosis of liver HX OF RECURRENT BLADDER CA : -S/P resection /fulguration of tumor on 09/2012 -shows high grade pathology , s/p recurrence on 01/2016 -palliative approach with limited TURB follows with Urology Dr Dangelo CODE STATUS ; s/w pt -aware of the poor prognosis of his health and multiple co morbidities does not want any heroic measures for resuscitation in setting of cardio pulmonary arrest DNR/DNI DVT PROPHYLAXIS : moderate to high risk pharmacological prophylaxis avoided due to anemia /thrombocytopenia SCD and teds DISPOSITION : Lives at [facility] PT/OT eval prior to discharge home Social service consulted for discharge planning Level of Care Med/Surg Advanced Directives Existing Living Will: Yes Existing Power of Department Store Salesperson: Yes Resuscitation Status DO NOT RESUSCITATE VTE Prophylaxis VTE Risk Assessment Done? Y/N: Yes Risk Level: Moderate Given or contraindicated: T.E.D. Stockings, SCD's
[2017-04-13] MEDS ORDERED: VANCOMYCIN HCL 125 MG/2.5ML SOLN PO ONE (20:00)
[2017-04-13] MEDS ORDERED: RASPBERRY SYRUP 5 ML UDP PO ONE (20:00)
[2017-04-13] MEDS ORDERED: POTASSIUM CHLORIDE 20 MEQ TABCR PO SCH (21:00)
[2017-04-13] MEDS: INSULIN HUMAN REGULAR SC SCH (21:00)
[2017-04-13] MEDS: RIFAXIMIN TAB 550 MG TAB PO SCH (21:07)
[2017-04-13] MEDS: INSULIN GLARGINE SOLOSTAR 100 UNITS/ML 3 ML PEN SQ SCH (21:10)
[2017-04-13 21:39] VITALS: PULSE 84; O2SAT 100
[2017-04-13 23:25] VITALS: BP 91/57; PULSE 78; TEMP 36.5; O2SAT 97
[2017-04-14 05:55] LABS: HEMATOCRIT 25.6 % (42-52); MEAN CORPUSCULAR HEMOGLOBIN 27.5 pg (25-34); MEAN CORPUSCULAR HGB CONC 31.3 g/dl (32-36); MEAN PLATELET VOLUME 9.3 fL (7.4-10.4); PLATELET COUNT 50 K/uL (130-400); RED BLOOD COUNT 2.91 M/uL (4.7-6.1); WHITE BLOOD COUNT 2.24 K/uL (4.8-10.8)
[2017-04-14 06:37] LABS: BUN/CREATININE RATIO 18.1 (10-20); CREATININE 2.81 mg/dl (0.60-1.40); MAGNESIUM 2.2 mg/dl (1.8-2.4); POTASSIUM 4.8 mmol/L (3.5-5.1)
[2017-04-14 07:34] VITALS: BP 98/59; PULSE 70; TEMP 36.7; O2SAT 96
[2017-04-14] MEDS: METOPROLOL SUCC 25MG EXT REL TAB PO SCH (08:03)
[2017-04-14] MEDS: FERROUS SULFATE 325 MG TAB PO SCH (08:04)
[2017-04-14] MEDS: SPIRONOLACTONE 25 MG TAB PO SCH (08:04)
[2017-04-14] MEDS: FUROSEMIDE 40 MG TAB PO SCH ×2 (08:04→17:30)
[2017-04-14] MEDS: RIFAXIMIN TAB 550 MG TAB PO SCH ×2 (08:04→21:41)
[2017-04-14] MEDS: INSULIN HUMAN REGULAR SC SCH ×4 (08:08→20:23)
[2017-04-14] MEDS: RASPBERRY SYRUP 5 ML UDP PO SCH (08:13)
[2017-04-14] MEDS: VANCOMYCIN HCL 125 MG/2.5ML SOLN PO SCH (08:13)
--- NOTE | 2017-04-14 12:16 | Gastrointestinal Consultation ---
Gastrointestinal Consultation Date of Consultation: Apr 14, 2017 Attending Physician: Dr. Pearson Consulting Physician: Dr. Cordoba Reason for Consultation: Cirrhosis, ascites History of Present Illness Patient is a 87 year old male patient of Dr. Tompkins with a hx of CHF, CKD, cirrhosis who presented yesterday for diarrhea, worsening peripheral edema and ascites. GI is consulted for ascites. 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 He underwent liver bx with severe steatosis about 10 yrs ago. He denies drinking any alcohol. GI was consulted in Feb and completed an EGD with grade I esophageal varices. GI made the recommendation to change from lactulose to Xifaxin due to diarrhea at that time. Ascites has been managed as an OP on Lasix 40 BID. On two prior admissions, dx paracentesis was completed with benign path. On arrival, Cr was 3.03, up form a baseline of approx 2.5. Today his creatinine has returned to 2.5. Since arrival, he tells me that his leg edema is improved. He is on Lasix 40mg BID. Though diarrhea was a presenting complaints, he has not had a BM since arrival and he denies any hx of GI bleeding. He is awake, alert, oriented w/o evidence of hepatic encephalopathy. He denies any GI bleeding. His appetite is good. Of note, his platelets are 50 today, so large volume paracentesis should only be considered if ascites can not be managed by diuretics and if platelets were given prior. Decompensations - Ascites: yes - Varices: yes, grade I - Hepatic encephalopathy: yes, previously Screenings - Varices: yes,, grade I on EGD 02/2017 - HCC screening: UTD - Immunization status: unknown Paracentesis 02/06/17: 5 liters of straw-colored fluid Liver US 04/13/17: 1. Moderate to large volume of ascites. The volume of ascites is less than was present on March 16, 2017 2. Cirrhotic morphology of the liver CT ABD 02/06/17: Significantly suboptimal examination without oral and IV contrast. Moderate right pleural effusion with associated right basilar consolidation. This likely represents atelectasis. Clinical correlation will be required. No acute infectious or inflammatory findings are seen in the abdomen or pelvis. Cirrhotic liver morphology with evidence of portal hypertension including a moderate volume of abdominopelvic ascites and splenomegaly. Advanced diverticulosis of the left colon without CT evidence of acute diverticulitis. There is evidence of chronic bladder outlet obstruction. Cardiomegaly. Past Medical/Surgical History Medical Problems: (1) Acute on chronic renal failure Status: Acute (2) MAGEN (acute kidney injury) Status: Acute (3) Altered mental status Status: Acute (4) Anasarca Status: Acute (5) Anasarca Status: Acute (6) Ascites Status: Acute (7) Bilateral leg edema Status: Acute (8) CHF (congestive heart failure) Status: Acute (9) CHF (congestive heart failure) Status: Acute (10) Dehydration Status: Acute (11) Dependent edema Status: Acute (12) Dyspnea on exertion Status: Acute (13) Elevated lactic acid level Status: Acute (14) Elevated troponin Status: Acute (15) Hepatic encephalopathy Status: Acute (16) Hypotension Status: Acute (17) Kidney failure Status: Acute (18) Pancytopenia Status: Acute (19) Pulmonary edema Status: Acute (20) Renal failure Status: Acute (21) Right heart failure Status: Acute Past Medical History: 1. CKD 2. NAFLD cirrhosis, with ascites, grade I EV and prior hepatic encephalopathy 3. CHF 4. Recurrent C-diff, currently on a Vanco taper 5. COPD 6. Cardiomyopathy Past Surgical History: 1. Pacemaker insertion 2. Cardiac myomectomy for hypertrophic cardiomyopathy 3. EGD Feb 2017 with grade I esophageal varices by Dr. Patel. Family History FHx: heart disease Social History Smoking Status: Former Smoker Alcohol Use: none Drug Use: none Marital Status: Housing Status: assisted living Occupation Status: unemployed Allergies Coded Allergies: Propranolol (Verified Allergy, Unknown, 03/15/17) Codeine (Verified Adverse Reaction, Mild, NOTED "DOESNT TOLERATE WELL" , 03/15/17) Current Medications Home Meds and Scripts Medications Dose Route/Sig Max Daily Dose Days Date Category Dose Instructions Iron (Ferrous Sulfate) 325 Mg Tab 325 Mg PO DAILY 04/13/17 Reported Lasix (Furosemide) 40 Mg Tab 40 Mg PO BID17 04/13/17 Reported Vancomycin HCl 125 Mg/2.5 Ml Susp 125 Mg PO DIRECTED 49 03/21/17 Rx week 1 to 2: vancomycin 125 mg QID x 14 days then: week 3: vancomycin 125 mg BID x 7 days then: week 4: vancomycin 125 mg daily x 7 days then: week 5: vancomycin 125 mg every other day x 7 days then: week 6 to 7: vancomycin 125 mg every three days x 14 days Klor-Con M20 (Potassium Chloride) 20 Meq Tabcr 20 Meq PO BID 30 03/21/17 Rx Spironolactone 25 Mg Tab 25 Mg PO QAM 30 03/21/17 Rx Xifaxan (Rifaximin) 550 Mg Tab 550 Mg PO BID 30 03/21/17 Rx Toprol-Xl (Metoprolol Succinate) 25 Mg Tabcr 12.5 Mg PO DAILY 30 02/21/17 Rx Zofran (Ondansetron HCl) 4 Mg Tab 4 Mg PO Q6H PRN 02/06/17 Reported Lantus Solostar (Insulin Glargine) 100 Unit/Ml Inj 14 Units SQ HS 02/06/17 Reported Novolog (Insulin Aspart) 100 Units/Ml Inj SQ ACHS 02/06/17 Reported SLIDING SCALE 1 UNIT FOR EVERY 20 MG/DL INCREASE IN GLUCOSE ABOVE 150 Nitrostat (Nitroglycerin) 0.4 Mg Tab 0.4 Mg UT UD PRN 08/26/13 Reported Folic Acid 1 Mg Tab 1 Mg PO DAILY 08/26/13 Reported Review of Systems Constitutional: No fever, No chills, No sweats, No weight loss, No weakness Eyes: No eye pain, No redness ENT: No sore throat, No trouble swallowing, No pain on swallowing Respiratory: No cough, No wheezing, No shortness of breath, No dyspnea on exertion Cardiac: No chest pain, No edema, No palpitations Abdomen: + see HPI, + diarrhea (resolved since admission), + problem reported ( ascites), No constipation, No GI bleeding Neuro: No memory loss, No weakness, No numbness/tingling, No vertigo, No balance problems Psych: No depression symptoms, No anxiety, No insomnia Heme: No abnormal bleeding/bruising, No night sweats Endo: No excessive thirst, No excessive urination Skin: + new/changing skin lesions (chronic seeping of fluid from the skin of the lower legs, ), No rash, No itch, No jaundice Physical Exam Date Time Temp Pulse Resp B/P (MAP) Pulse Ox O2 Delivery O2 Flow Rate FiO2 04/14/17 08:00 Room Air 04/14/17 07:34 36.7 70 20 98/59 (72) 96 04/14/17 00:00 CPAP 04/13/17 23:25 36.5 78 18 91/57 (68) 97 CPAP 04/13/17 21:39 84 100 2.0 04/13/17 18:58 36.4 83 18 108/68 (81) 95 04/13/17 18:20 100 Room Air 04/13/17 17:58 68 16 101/63 100 Room Air 04/13/17 16:44 36.0 99 16 119/80 98 Room Air General Appearance: no apparent distress Eyes: normal inspection, EOMI Neck: supple, no adenopathy, thyroid normal, no JVD Respiratory/Chest: chest non-tender, lungs clear, normal breath sounds, no accessory muscle use, + pertinent finding (decreased at the bases) Cardiovascular: regular rate, rhythm, no JVD, no murmur Abdomen: non tender, soft, no organomegaly, + pertinent finding (moderately large ascites) Extremities: normal inspection, no pedal edema, normal capillary refill, + pertinent finding (blistered right lower leg; both lower legs with chronic edema , 2+ pitting edema) Neurologic/Psych: alert, normal mood/affect, oriented x 3 Skin: normal color, no jaundice, warm/dry, no rash Laboratory Results Last 24 Hours Test 04/13/17 16:57 04/13/17 17:29 04/13/17 20:22 04/14/17 05:25 White Blood Count 3.74 K/uL 2.24 K/uL Red Blood Count 3.09 M/uL 2.91 M/uL Hemoglobin 8.4 g/dL 8.0 g/dL Hematocrit 27.2 % 25.6 % Mean Corpuscular Volume 88.0 fL 88.0 fL Mean Corpuscular Hemoglobin 27.2 pg 27.5 pg Mean Corpuscular Hemoglobin Concent 30.9 g/dl 31.3 g/dl Platelet Count 62 K/uL 50 K/uL Mean Platelet Volume 9.5 fL 9.3 fL Neutrophils (%) (Auto) 76.1 % Lymphocytes (%) (Auto) 9.9 % Monocytes (%) (Auto) 11.0 % Eosinophils (%) (Auto) 2.4 % Basophils (%) (Auto) 0.3 % Neutrophils # (Auto) 2.85 K/uL Lymphocytes # (Auto) 0.37 K/uL Monocytes # (Auto) 0.41 K/uL Eosinophils # (Auto) 0.09 K/uL Basophils # (Auto) 0.01 K/uL RDW Standard Deviation 57.1 fL 56.8 fL RDW Coefficient of Variation 17.7 % 17.4 % Immature Granulocyte % (Auto) 0.3 % Immature Granulocyte # (Auto) 0.01 K/uL Ovalocytes 1+ Schistocytes 1+ Sodium Level 142 mmol/L 143 mmol/L Potassium Level 4.8 mmol/L 4.8 mmol/L Chloride Level 108 mmol/L 111 mmol/L Carbon Dioxide Level 25 mmol/L 27 mmol/L Anion Gap 8.0 mmol/L 6.0 mmol/L Blood Urea Nitrogen 51 mg/dl 51 mg/dl Creatinine 3.03 mg/dl 2.81 mg/dl Est Creatinine Clear Calc Drug Dose 21.7 ml/min 23.4 ml/min Estimated GFR () 20.4 22.4 Estimated GFR (Non- 17.6 19.3 BUN/Creatinine Ratio 16.9 18.1 Random Glucose 117 mg/dl 74 mg/dl Calcium Level 8.0 mg/dl 8.0 mg/dl Magnesium Level 2.1 mg/dl 2.2 mg/dl Total Bilirubin 0.4 mg/dl 0.4 mg/dl Direct Bilirubin 0.1 mg/dl 0.2 mg/dl Aspartate Amino Transf (AST/SGOT) 47 U/L 36 U/L Alanine Aminotransferase (ALT/SGPT) 36 U/L 29 U/L Alkaline Phosphatase 128 U/L 103 U/L Ammonia 43.7 umol/L Pro-B-Type Natriuretic Peptide 5442 pg/ml Total Protein 6.3 gm/dl 5.6 gm/dl Albumin 2.5 gm/dl 2.2 gm/dl Prothrombin Time 13.2 SECONDS Prothromb Time International Ratio 1.2 Activated Partial Thromboplast Time 30.8 SECONDS Partial Thromboplastin Ratio 1.2 Bedside Glucose 120 mg/dl Test 04/14/17 07:26 Bedside Glucose 78 mg/dl Impression Patient is a 87 year old male with NAFLD cirrhosis with ascites. Plan 1. Unfortunately, a large volume paracentesis is contraindicated at this time due to thrombocytopenia. Pt would need a platelet infusion prior if paracentesis has to be done. 2. Continue lasix 40mg BID, if not contraindicated by raising Cr which appears to be improved today. 3. Continue Xifaxin 550mg BID. 4. GI will sign off. I performed a history and physical examination of the patient. I have discussed the patient's case, impression and plan with ARMINDA Worley. Her note reflects my findings and plan. Careful use of diuretics and follow renal function and electrolytes closely. Odin Cordoba MD
[2017-04-14 15:42] VITALS: BP 110/75; PULSE 65; TEMP 36.4; O2SAT 96
--- NOTE | 2017-04-14 19:20 | Progress Note ---
Medicine Progress Note Date & Time of Visit: Apr 14, 2017 at 14:30 . Subjective Patient complains of abdominal distention. No nausea, vomiting, diarrhea, melena, hematochezia. No fever. No cough or shortness of breath. No chest pain. . Objective Last 8 Hrs Date Time Temp Pulse Resp B/P (MAP) Pulse Ox O2 Delivery O2 Flow Rate FiO2 04/14/17 16:00 Room Air 04/14/17 15:42 36.4 65 18 110/75 (87) 96 Room Air Physical Exam: General- sitting in chair, no distress Eyes- anicteric Neck- no JVD Lungs- clear Heart- RRR, II/ sys murmur LSB, no gallop appreciated Abdomen- + BS, distended, soft, nontender Extremities- 3+ pretibial edema Neuro- alert, mild confusion . Laboratory Results: Last 24 Hours Test 04/13/17 20:22 04/14/17 05:25 04/14/17 07:26 04/14/17 11:35 Bedside Glucose 120 mg/dl 78 mg/dl 105 mg/dl White Blood Count 2.24 K/uL Red Blood Count 2.91 M/uL Hemoglobin 8.0 g/dL Hematocrit 25.6 % Mean Corpuscular Volume 88.0 fL Mean Corpuscular Hemoglobin 27.5 pg Mean Corpuscular Hemoglobin Concent 31.3 g/dl RDW Standard Deviation 56.8 fL RDW Coefficient of Variation 17.4 % Platelet Count 50 K/uL Mean Platelet Volume 9.3 fL Sodium Level 143 mmol/L Potassium Level 4.8 mmol/L Chloride Level 111 mmol/L Carbon Dioxide Level 27 mmol/L Anion Gap 6.0 mmol/L Blood Urea Nitrogen 51 mg/dl Creatinine 2.81 mg/dl Est Creatinine Clear Calc Drug Dose 23.4 ml/min Estimated GFR () 22.4 Estimated GFR (Non- 19.3 BUN/Creatinine Ratio 18.1 Random Glucose 74 mg/dl Calcium Level 8.0 mg/dl Magnesium Level 2.2 mg/dl Total Bilirubin 0.4 mg/dl Direct Bilirubin 0.2 mg/dl Aspartate Amino Transf (AST/SGOT) 36 U/L Alanine Aminotransferase (ALT/SGPT) 29 U/L Alkaline Phosphatase 103 U/L Total Protein 5.6 gm/dl Albumin 2.2 gm/dl Test 04/14/17 16:23 Bedside Glucose 107 mg/dl Assessment & Plan CIRRHOSIS / ASCITES Cirrhosis attributed to passive liver congestion from CHF and/or SHANE. Worsening ascites. GI consulted. Titrate diuretics. Continue rifaximin. 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 Creatinine today 2.81. Watch fluid status. Avoid potential nephrotoxins. Follow. HISTORY SINOATRIAL DISEASE / PAROXYSMAL ATRIAL FIB S/P pacemaker. Continue metoprolol. No anticoagulants due to cirrhosis and thrombocytopenia. COPD / SLEEP APNEA Respiratory status stable. Continue CPAP. DM TYPE II Well-controlled. Hgb A1C 6.2 02/07/17. Tight control not indicated given advanced age and comorbidities. FBS this morning = 78. Continue Lantus + NovoLog with liberal blood sugar goals. MYELODYSPLASTIC SYNDROME Hgb today = 8.0. Anemia probably due to combination of MDS + CKD. No transfusion at this time per current guidelines. WBC 2240. Plts50,000. Follow. VTE PROPHYLAXIS Chemoprophylaxis contraindicated in light of thrombocytopenia. SCD's. DISPOSITION To be determined. Probable return to [facility]. Family Medicine follow-up with Dr. Garza. Nephrology follow-up with Dr. Chong. . Current Inpatient Medications: Current Inpatient Medications Medications (Trade) Dose Ordered Sig/Gin Route Start Time Stop Time Status Last Admin Dose Admin Al Hydrox/Mg Hydrox/Simethicone (Maalox Max Susp) 15 ml Q4H PRN PO 04/13/17 18:00 05/13/17 17:59 Magnesium Hydroxide (Milk Of Magnesia Susp) 30 ml Q6H PRN PO 04/13/17 18:00 05/13/17 17:59 Ondansetron HCl (Zofran Inj) 4 mg Q6H PRN IV 04/13/17 18:00 05/13/17 17:59 Folic Acid (Folvite Tab) 1 mg DAILY PO 04/14/17 09:00 05/14/17 08:59 04/14/17 08:04 1 MG Furosemide (Lasix Tab) 40 mg BID17 PO 04/14/17 09:00 05/14/17 08:59 04/14/17 17:30 40 MG Insulin Glargine (Lantus Solostar Pen) 14 units HS SQ 04/13/17 21:00 05/13/17 20:59 04/13/17 21:10 14 UNITS Metoprolol Succinate (Toprol Xl Tab) 12.5 mg DAILY PO 04/14/17 09:00 05/14/17 08:59 Nitroglycerin (Nitrostat Tab) 0.4 mg UD PRN UT 04/13/17 18:00 05/13/17 17:59 Ondansetron HCl (Zofran Tab) 4 mg Q6H PRN PO 04/13/17 18:00 05/13/17 17:59 Rifaximin (Xifaxan Tab) 550 mg BID PO 04/13/17 21:00 05/13/17 20:59 04/14/17 08:04 550 MG Spironolactone (Aldactone Tab) 25 mg QAM PO 04/14/17 09:00 05/14/17 08:59 04/14/17 08:04 25 MG Ferrous Sulfate (Feosol Tab) 325 mg DAILY PO 04/14/17 09:00 05/14/17 08:59 04/14/17 08:04 325 MG Insulin Human Regular (novoLIN-R) SLIDING SCALE IF C... ACHS SC 04/13/17 21:00 05/13/17 20:59 04/14/17 17:16 3 UNITS Glucose (Glucose 40% Gel) 15-30 GRAMS 15 GRAMS... UD PRN PO 04/13/17 18:15 05/13/17 18:14 Glucose (Glucose Chew Tab) 4-8 Tablets 4 Tabl... UD PRN PO 04/13/17 18:15 05/13/17 18:14 Dextrose (Dextrose 50% 50ML Syringe) 25-50ML OF 50% DW IV FOR... UD PRN IV 04/13/17 18:15 05/13/17 18:14 Glucagon (Glucagon Inj) 1 mg UD PRN SQ 04/13/17 18:15 05/13/17 18:14 Vancomycin HCl (Vancomycin Oral Soln) 125 mg Taper DAILY PO 04/14/17 09:00 05/05/17 08:59 04/14/17 08:13 125 MG Raspberry (Raspberry Syrup 5ml Cup) 5 ml Taper DAILY PO 04/14/17 09:00 05/05/17 08:59 04/14/17 08:13 5 ML
[2017-04-14] MEDS: INSULIN GLARGINE SOLOSTAR 100 UNITS/ML 3 ML PEN SQ SCH (20:44)
[2017-04-15 00:27] VITALS: BP 100/62; PULSE 79; TEMP 36.6; O2SAT 97
[2017-04-15 06:13] LABS: HEMATOCRIT 26.6 % (42-52); MEAN CELL VOLUME 87.5 fL (80-100); MEAN CORPUSCULAR HEMOGLOBIN 26.6 pg (25-34); MEAN CORPUSCULAR HGB CONC 30.5 g/dl (32-36); RED BLOOD COUNT 3.04 M/uL (4.7-6.1); WHITE BLOOD COUNT 2.66 K/uL (4.8-10.8)
[2017-04-15 06:19] LABS: PLATELET COUNT 50 K/uL (130-400)
[2017-04-15 06:40] LABS: CALCIUM 8.2 mg/dl (8.5-10.1); CREATININE 2.77 mg/dl (0.60-1.40); MAGNESIUM 2.2 mg/dl (1.8-2.4); POTASSIUM 4.7 mmol/L (3.5-5.1)
[2017-04-15] MEDS: RIFAXIMIN TAB 550 MG TAB PO SCH ×2 (07:18→20:50)
[2017-04-15] MEDS: RASPBERRY SYRUP 5 ML UDP PO SCH (07:19)
[2017-04-15] MEDS: METOPROLOL SUCC 25MG EXT REL TAB PO SCH (07:19)
[2017-04-15] MEDS: FERROUS SULFATE 325 MG TAB PO SCH (07:19)
[2017-04-15] MEDS: SPIRONOLACTONE 25 MG TAB PO SCH (07:20)
[2017-04-15] MEDS: VANCOMYCIN HCL 125 MG/2.5ML SOLN PO SCH (07:22)
[2017-04-15 07:24] LABS: ESTIMATED AVERAGE GLUCOSE 120 mg/dl; HA1C FLAG Normal (Normal)
[2017-04-15] MEDS: FUROSEMIDE INJ 40 MG in SYRINGE 0 ML IV SCH ×2 (07:31→14:28)
[2017-04-15 07:37] VITALS: BP 92/64; PULSE 59; TEMP 36.4; O2SAT 97
[2017-04-15] MEDS: INSULIN HUMAN REGULAR SC SCH ×4 (07:58→20:54)
--- NOTE | 2017-04-15 11:12 | Progress Note ---
Medicine Progress Note Date & Time of Visit: Apr 15, 2017 at 11:00 . Subjective Doing well. No fever. No chest pain. Persistent dependent edema. No cough or SOB. No nausea, vomiting, diarrhea. Voiding without difficulty. . Objective Last 8 Hrs Date Time Temp Pulse Resp B/P (MAP) Pulse Ox O2 Delivery O2 Flow Rate FiO2 04/15/17 08:00 Room Air 04/15/17 07:37 36.4 59 16 92/64 (73) 97 Room Air Physical Exam: General- lying in bed, no distress Eyes- anicteric Neck- no JVD Lungs- clear Heart- RRR, II/ sys murmur LSB, no gallop appreciated Abdomen- + BS, distended, soft, nontender Extremities- 3+ pretibial and pedal edema Neuro- alert, mild confusion . Laboratory Results: Last 24 Hours Test 04/14/17 11:35 04/14/17 16:23 04/14/17 20:20 04/15/17 05:40 Bedside Glucose 105 mg/dl 107 mg/dl 96 mg/dl White Blood Count 2.66 K/uL Red Blood Count 3.04 M/uL Hemoglobin 8.1 g/dL Hematocrit 26.6 % Mean Corpuscular Volume 87.5 fL Mean Corpuscular Hemoglobin 26.6 pg Mean Corpuscular Hemoglobin Concent 30.5 g/dl RDW Standard Deviation 55.9 fL RDW Coefficient of Variation 17.5 % Platelet Count 50 K/uL Mean Platelet Volume 9.0 fL Sodium Level 142 mmol/L Potassium Level 4.7 mmol/L Chloride Level 108 mmol/L Carbon Dioxide Level 25 mmol/L Anion Gap 9.0 mmol/L Blood Urea Nitrogen 47 mg/dl Creatinine 2.77 mg/dl Est Creatinine Clear Calc Drug Dose 23.7 ml/min Estimated GFR () 22.8 Estimated GFR (Non- 19.7 BUN/Creatinine Ratio 17.0 Random Glucose 66 mg/dl Calcium Level 8.2 mg/dl Magnesium Level 2.2 mg/dl Test 04/15/17 07:21 04/15/17 07:46 Bedside Glucose 67 mg/dl 86 mg/dl Assessment & Plan CIRRHOSIS / ASCITES 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 Worsening ascites. GI consulted. Paracentesis not recommended due to thrombocytopenia. IV furosemide as tolerated. Continue spironolactone. Continue rifaximin. 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 Creatinine today 2.77. Continue IV furosemide with caution. Watch fluid status. Avoid potential nephrotoxins. Follow. HISTORY SINOATRIAL DISEASE / PAROXYSMAL ATRIAL FIB S/P pacemaker. Continue metoprolol. No anticoagulants due to cirrhosis and thrombocytopenia. COPD / SLEEP APNEA Respiratory status stable. Continue CPAP. DM TYPE II Well-controlled. Hgb A1C 6.2 02/07/17. Tight control not indicated given advanced age and comorbidities. FBS this morning = 67. Adjust Lantus dose.. Continue NovoLog with liberal blood sugar goals. MYELODYSPLASTIC SYNDROME Hgb today = 8..1. Anemia probably due to combination of MDS + CKD. No transfusion at this time per current guidelines. WBC today = 2660. Plts today = 50,000. Follow. RECURRENT C DIFF (present on admission) Continue vancomycin. VTE PROPHYLAXIS Chemoprophylaxis contraindicated in light of thrombocytopenia. SCD's. DISPOSITION To be determined. Probable return to [facility]. Family Medicine follow-up with Dr. Garza. Nephrology follow-up with Dr. Chong. . Current Inpatient Medications: Current Inpatient Medications Medications (Trade) Dose Ordered Sig/Gin Route Start Time Stop Time Status Last Admin Dose Admin Al Hydrox/Mg Hydrox/Simethicone (Maalox Max Susp) 15 ml Q4H PRN PO 04/13/17 18:00 05/13/17 17:59 Magnesium Hydroxide (Milk Of Magnesia Susp) 30 ml Q6H PRN PO 04/13/17 18:00 05/13/17 17:59 Ondansetron HCl (Zofran Inj) 4 mg Q6H PRN IV 04/13/17 18:00 05/13/17 17:59 Folic Acid (Folvite Tab) 1 mg DAILY PO 04/14/17 09:00 05/14/17 08:59 04/15/17 07:20 1 MG Metoprolol Succinate (Toprol Xl Tab) 12.5 mg DAILY PO 04/14/17 09:00 05/14/17 08:59 Nitroglycerin (Nitrostat Tab) 0.4 mg UD PRN UT 04/13/17 18:00 05/13/17 17:59 Ondansetron HCl (Zofran Tab) 4 mg Q6H PRN PO 04/13/17 18:00 05/13/17 17:59 Rifaximin (Xifaxan Tab) 550 mg BID PO 04/13/17 21:00 05/13/17 20:59 04/15/17 07:18 550 MG Spironolactone (Aldactone Tab) 25 mg QAM PO 04/14/17 09:00 05/14/17 08:59 04/15/17 07:20 25 MG Ferrous Sulfate (Feosol Tab) 325 mg DAILY PO 04/14/17 09:00 05/14/17 08:59 04/15/17 07:19 325 MG Insulin Human Regular (novoLIN-R) SLIDING SCALE IF C... ACHS SC 04/13/17 21:00 05/13/17 20:59 04/15/17 07:58 3 UNITS Glucose (Glucose 40% Gel) 15-30 GRAMS 15 GRAMS... UD PRN PO 04/13/17 18:15 05/13/17 18:14 Glucose (Glucose Chew Tab) 4-8 Tablets 4 Tabl... UD PRN PO 04/13/17 18:15 05/13/17 18:14 Dextrose (Dextrose 50% 50ML Syringe) 25-50ML OF 50% DW IV FOR... UD PRN IV 04/13/17 18:15 05/13/17 18:14 Glucagon (Glucagon Inj) 1 mg UD PRN SQ 04/13/17 18:15 05/13/17 18:14 Vancomycin HCl (Vancomycin Oral Soln) 125 mg Taper DAILY PO 04/14/17 09:00 05/05/17 08:59 04/15/17 07:22 125 MG Raspberry (Raspberry Syrup 5ml Cup) 5 ml Taper DAILY PO 04/14/17 09:00 05/05/17 08:59 04/15/17 07:19 5 ML Furosemide 40 mg/ Syringe 4 ml @ 4 mls/min BID@0900,1500 IV 04/15/17 09:00 05/15/17 08:59 04/15/17 07:31 4 MLS/MIN Insulin Glargine (Lantus Solostar Pen) 10 units HS SQ 04/15/17 21:00 05/13/17 20:59
[2017-04-15 20:12] VITALS: BP 95/63; PULSE 80; TEMP 36.5; O2SAT 95
[2017-04-15] MEDS: INSULIN GLARGINE SOLOSTAR 100 UNITS/ML 3 ML PEN SQ SCH (20:55)
[2017-04-16] VITALS (10 sets, daily range): BP systolic 93–113; BP diastolic 53–80; PULSE 71–140; TEMP 36.3–36.8; O2SAT 82–100
[2017-04-16] MEDS: ALBUMIN HUMAN 25% 12.5 GM/50 ML VIAL IV SCH ×4 (01:10→17:42)
[2017-04-16 05:51] LABS: HEMATOCRIT 26.4 % (42-52); MEAN CELL VOLUME 86.8 fL (80-100); MEAN CORPUSCULAR HEMOGLOBIN 27.6 pg (25-34); MEAN CORPUSCULAR HGB CONC 31.8 g/dl (32-36); RED BLOOD COUNT 3.04 M/uL (4.7-6.1); WHITE BLOOD COUNT 2.73 K/uL (4.8-10.8)
[2017-04-16 05:59] LABS: MEAN PLATELET VOLUME 9.4 fL (7.4-10.4); PLATELET COUNT 56 K/uL (130-400)
[2017-04-16 06:26] LABS: BUN/CREATININE RATIO 17.2 (10-20); CALCIUM 8.4 mg/dl (8.5-10.1); CREATININE 2.74 mg/dl (0.60-1.40); MAGNESIUM 2.2 mg/dl (1.8-2.4); POTASSIUM 4.7 mmol/L (3.5-5.1)
[2017-04-16] MEDS: FUROSEMIDE INJ 40 MG in SYRINGE 0 ML IV SCH ×2 (07:03→19:03)
[2017-04-16] MEDS: INSULIN HUMAN REGULAR SC SCH ×4 (07:54→20:15)
[2017-04-16] MEDS: METOPROLOL SUCC 25MG EXT REL TAB PO SCH (07:55)
[2017-04-16] MEDS: VANCOMYCIN HCL 125 MG/2.5ML SOLN PO SCH (07:56)
[2017-04-16] MEDS: RASPBERRY SYRUP 5 ML UDP PO SCH (07:56)
[2017-04-16] MEDS: FERROUS SULFATE 325 MG TAB PO SCH (07:57)
[2017-04-16] MEDS: SPIRONOLACTONE 25 MG TAB PO SCH (07:57)
[2017-04-16] MEDS: RIFAXIMIN TAB 550 MG TAB PO SCH ×2 (07:57→20:13)
--- NOTE | 2017-04-16 12:01 | Gastroenterology Progress Note ---
Progress Note Date of Service: Apr 16, 2017 Subjective Pt evaluation today including: conversation w/ patient, physical exam Patient was admitted for complications of cirrhosis to include abdominal swelling and shortness of breath. GI is reconsultated for help with control of ascites. Review of Systems Constitutional: No fever, No sweats Respiratory: No cough, No wheezing, No dyspnea at rest Cardiac: No chest pain, No PND, No palpitations Medications Current Inpatient Medications Medications (Trade) Dose Ordered Sig/Gin Route Start Time Stop Time Status Last Admin Dose Admin Al Hydrox/Mg Hydrox/Simethicone (Maalox Max Susp) 15 ml Q4H PRN PO 04/13/17 18:00 05/13/17 17:59 Magnesium Hydroxide (Milk Of Magnesia Susp) 30 ml Q6H PRN PO 04/13/17 18:00 05/13/17 17:59 Ondansetron HCl (Zofran Inj) 4 mg Q6H PRN IV 04/13/17 18:00 05/13/17 17:59 Folic Acid (Folvite Tab) 1 mg DAILY PO 04/14/17 09:00 05/14/17 08:59 04/16/17 07:57 1 MG Metoprolol Succinate (Toprol Xl Tab) 12.5 mg DAILY PO 04/14/17 09:00 05/14/17 08:59 Nitroglycerin (Nitrostat Tab) 0.4 mg UD PRN UT 04/13/17 18:00 05/13/17 17:59 Ondansetron HCl (Zofran Tab) 4 mg Q6H PRN PO 04/13/17 18:00 05/13/17 17:59 Rifaximin (Xifaxan Tab) 550 mg BID PO 04/13/17 21:00 05/13/17 20:59 04/16/17 07:57 550 MG Spironolactone (Aldactone Tab) 25 mg QAM PO 04/14/17 09:00 05/14/17 08:59 04/16/17 07:57 25 MG Ferrous Sulfate (Feosol Tab) 325 mg DAILY PO 04/14/17 09:00 05/14/17 08:59 04/16/17 07:57 325 MG Insulin Human Regular (novoLIN-R) SLIDING SCALE IF C... ACHS SC 04/13/17 21:00 05/13/17 20:59 04/16/17 07:54 1 UNITS Glucose (Glucose 40% Gel) 15-30 GRAMS 15 GRAMS... UD PRN PO 04/13/17 18:15 05/13/17 18:14 Glucose (Glucose Chew Tab) 4-8 Tablets 4 Tabl... UD PRN PO 04/13/17 18:15 05/13/17 18:14 Dextrose (Dextrose 50% 50ML Syringe) 25-50ML OF 50% DW IV FOR... UD PRN IV 04/13/17 18:15 05/13/17 18:14 Glucagon (Glucagon Inj) 1 mg UD PRN SQ 04/13/17 18:15 05/13/17 18:14 Vancomycin HCl (Vancomycin Oral Soln) 125 mg Taper DAILY PO 04/14/17 09:00 05/05/17 08:59 04/16/17 07:56 125 MG Raspberry (Raspberry Syrup 5ml Cup) 5 ml Taper DAILY PO 04/14/17 09:00 05/05/17 08:59 04/16/17 07:56 5 ML Insulin Glargine (Lantus Solostar Pen) 10 units HS SQ 04/15/17 21:00 05/13/17 20:59 04/15/17 20:55 10 UNITS Albumin Human (Albumin 25%) 12.5 gm Q6 IV 04/16/17 00:00 04/19/17 00:00 04/16/17 05:34 12.5 GM Furosemide 40 mg/ Syringe 4 ml @ 4 mls/min Q12H IV 04/16/17 06:00 05/16/17 05:59 04/16/17 07:03 4 MLS/MIN Objective Vital Signs Date Time Temp Pulse Resp B/P (MAP) Pulse Ox O2 Delivery O2 Flow Rate FiO2 04/16/17 08:12 36.4 85 18 96/63 (74) 95 Room Air 04/16/17 08:00 Room Air 04/16/17 07:01 80 96/80 (85) 04/16/17 00:13 36.3 82 20 95/53 (67) 100 CPAP 04/16/17 00:00 CPAP 04/15/17 20:12 36.5 80 18 95/63 (74) 95 Room Air 04/15/17 16:02 Room Air Physical Exam General Appearance: no apparent distress Neck: no JVD Respiratory/Chest: lungs clear Cardiovascular: no JVD, no murmur Abdomen: soft, + pertinent finding (distended, + fluid wave) Neurologic/Psych: + pertinent finding (No asterixis) Skin: no jaundice Laboratory Results Last 24 Hours Test 04/15/17 16:38 04/15/17 20:45 04/16/17 05:28 04/16/17 07:06 Bedside Glucose 113 mg/dl 168 mg/dl 80 mg/dl White Blood Count 2.73 K/uL Red Blood Count 3.04 M/uL Hemoglobin 8.4 g/dL Hematocrit 26.4 % Mean Corpuscular Volume 86.8 fL Mean Corpuscular Hemoglobin 27.6 pg Mean Corpuscular Hemoglobin Concent 31.8 g/dl RDW Standard Deviation 54.8 fL RDW Coefficient of Variation 17.3 % Platelet Count 56 K/uL Mean Platelet Volume 9.4 fL Sodium Level 144 mmol/L Potassium Level 4.7 mmol/L Chloride Level 107 mmol/L Carbon Dioxide Level 27 mmol/L Anion Gap 10.0 mmol/L Blood Urea Nitrogen 47 mg/dl Creatinine 2.74 mg/dl Est Creatinine Clear Calc Drug Dose 24.1 ml/min Estimated GFR () 23.1 Estimated GFR (Non- 19.9 BUN/Creatinine Ratio 17.2 Random Glucose 68 mg/dl Calcium Level 8.4 mg/dl Magnesium Level 2.2 mg/dl Test 04/16/17 11:24 Bedside Glucose 139 mg/dl Assessment and Plan Patient with a history of chronic liver disease likely result of fatty infiltration of the liver. His main manifestations are hepatic encephalopathy, thrombocytopenia and ascites. As he has a relative low platelet count perhaps we should try to continue to control his ascites with diuretics, low-sodium diet and albumin Recommendations Low-sodium diet Continue present dosing on diuretics Albumin 12.5 g 4 times a day If no improvement in next 24-48 hours we may need to consider a therapeutic paracentesis Please call with any questions or concerns, patient to be seen tomorrow.
[2017-04-16] MEDS: INSULIN GLARGINE SOLOSTAR 100 UNITS/ML 3 ML PEN SQ SCH (20:15)
--- NOTE | 2017-04-16 23:13 | Progress Note ---
Medicine Progress Note Date & Time of Visit: Apr 16, 2017 at ~ 12:00 . Subjective Receiving albumin and furosemide with good diuresis. No cough or shortness of breath. No chest pain. No nausea, vomiting, diarrhea. No fever. . Objective Last 8 Hrs Date Time Temp Pulse Resp B/P (MAP) Pulse Ox O2 Delivery O2 Flow Rate FiO2 04/16/17 21:20 CPAP 2.0 04/16/17 18:59 36.6 82 24 99/65 (76) 99 Room Air 04/16/17 17:54 36.4 71 113/69 (84) 100 Room Air 04/16/17 16:00 100 Room Air CPAP 04/16/17 15:21 36.5 140 18 104/68 (80) 82 Room Air Physical Exam: General- lying in bed, no distress Eyes- anicteric Neck- no JVD Lungs- clear Heart- RRR, II/ sys murmur LSB, no gallop appreciated Abdomen- + BS, distended, soft, nontender Extremities- 3+ pretibial and pedal edema Neuro- alert, pleasantly confused . Laboratory Results: Last 24 Hours Test 04/16/17 05:28 04/16/17 07:06 04/16/17 11:24 04/16/17 16:22 White Blood Count 2.73 K/uL Red Blood Count 3.04 M/uL Hemoglobin 8.4 g/dL Hematocrit 26.4 % Mean Corpuscular Volume 86.8 fL Mean Corpuscular Hemoglobin 27.6 pg Mean Corpuscular Hemoglobin Concent 31.8 g/dl RDW Standard Deviation 54.8 fL RDW Coefficient of Variation 17.3 % Platelet Count 56 K/uL Mean Platelet Volume 9.4 fL Sodium Level 144 mmol/L Potassium Level 4.7 mmol/L Chloride Level 107 mmol/L Carbon Dioxide Level 27 mmol/L Anion Gap 10.0 mmol/L Blood Urea Nitrogen 47 mg/dl Creatinine 2.74 mg/dl Est Creatinine Clear Calc Drug Dose 24.1 ml/min Estimated GFR () 23.1 Estimated GFR (Non- 19.9 BUN/Creatinine Ratio 17.2 Random Glucose 68 mg/dl Calcium Level 8.4 mg/dl Magnesium Level 2.2 mg/dl Bedside Glucose 80 mg/dl 139 mg/dl 119 mg/dl Test 04/16/17 20:07 Bedside Glucose 169 mg/dl Assessment & Plan CIRRHOSIS / ASCITES 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 Worsening ascites. GI consulted. Paracentesis not recommended due to thrombocytopenia. IV furosemide as tolerated. Continue spironolactone with caution in light of CKD. Continue rifaximin. 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 Creatinine today = 2.74. Potassium today = 4.7. Continue IV furosemide and spironolactone with caution. Watch fluid status. Avoid potential nephrotoxins. Follow. HISTORY SINOATRIAL DISEASE / PAROXYSMAL ATRIAL FIB S/P pacemaker. Continue metoprolol. No anticoagulants due to cirrhosis and thrombocytopenia. COPD / SLEEP APNEA Respiratory status stable. Continue CPAP. DM TYPE II Well-controlled. Hgb A1C 6.2 02/07/17. Tight control not indicated given advanced age and comorbidities. FBS this morning = 80. Continue NovoLog with liberal blood sugar goals. MYELODYSPLASTIC SYNDROME Hgb today = 8.4. Anemia probably due to combination of MDS + CKD. No transfusion at this time per current guidelines. WBC today = 2730. Plts today = 56,000. Follow. RECURRENT C DIFF (present on admission) Continue vancomycin. VTE PROPHYLAXIS Chemoprophylaxis contraindicated in light of thrombocytopenia. SCD's. DISPOSITION To be determined. Probable return to [facility]. Family Medicine follow-up with Dr. Garza. Nephrology follow-up with Dr. Chong. . Current Inpatient Medications: Current Inpatient Medications Medications (Trade) Dose Ordered Sig/Gin Route Start Time Stop Time Status Last Admin Dose Admin Al Hydrox/Mg Hydrox/Simethicone (Maalox Max Susp) 15 ml Q4H PRN PO 04/13/17 18:00 05/13/17 17:59 Magnesium Hydroxide (Milk Of Magnesia Susp) 30 ml Q6H PRN PO 04/13/17 18:00 05/13/17 17:59 Ondansetron HCl (Zofran Inj) 4 mg Q6H PRN IV 04/13/17 18:00 05/13/17 17:59 Folic Acid (Folvite Tab) 1 mg DAILY PO 04/14/17 09:00 05/14/17 08:59 04/16/17 07:57 1 MG Metoprolol Succinate (Toprol Xl Tab) 12.5 mg DAILY PO 04/14/17 09:00 05/14/17 08:59 Nitroglycerin (Nitrostat Tab) 0.4 mg UD PRN UT 04/13/17 18:00 05/13/17 17:59 Ondansetron HCl (Zofran Tab) 4 mg Q6H PRN PO 04/13/17 18:00 05/13/17 17:59 Rifaximin (Xifaxan Tab) 550 mg BID PO 04/13/17 21:00 05/13/17 20:59 04/16/17 20:13 550 MG Spironolactone (Aldactone Tab) 25 mg QAM PO 04/14/17 09:00 05/14/17 08:59 04/16/17 07:57 25 MG Ferrous Sulfate (Feosol Tab) 325 mg DAILY PO 04/14/17 09:00 05/14/17 08:59 04/16/17 07:57 325 MG Insulin Human Regular (novoLIN-R) SLIDING SCALE IF C... ACHS SC 04/13/17 21:00 05/13/17 20:59 04/16/17 20:15 1 UNITS Glucose (Glucose 40% Gel) 15-30 GRAMS 15 GRAMS... UD PRN PO 04/13/17 18:15 05/13/17 18:14 Glucose (Glucose Chew Tab) 4-8 Tablets 4 Tabl... UD PRN PO 04/13/17 18:15 05/13/17 18:14 Dextrose (Dextrose 50% 50ML Syringe) 25-50ML OF 50% DW IV FOR... UD PRN IV 04/13/17 18:15 05/13/17 18:14 Glucagon (Glucagon Inj) 1 mg UD PRN SQ 04/13/17 18:15 05/13/17 18:14 Vancomycin HCl (Vancomycin Oral Soln) 125 mg Taper DAILY PO 04/14/17 09:00 05/05/17 08:59 04/16/17 07:56 125 MG Raspberry (Raspberry Syrup 5ml Cup) 5 ml Taper DAILY PO 04/14/17 09:00 05/05/17 08:59 04/16/17 07:56 5 ML Insulin Glargine (Lantus Solostar Pen) 10 units HS SQ 04/15/17 21:00 05/13/17 20:59 04/16/17 20:15 10 UNITS Albumin Human (Albumin 25%) 12.5 gm Q6 IV 04/16/17 00:00 04/19/17 00:00 04/16/17 17:42 12.5 GM Furosemide 40 mg/ Syringe 4 ml @ 4 mls/min Q12H IV 04/16/17 06:00 05/16/17 05:59 04/16/17 19:03 4 MLS/MIN
[2017-04-17] VITALS (13 sets, daily range): BP systolic 91–112; BP diastolic 52–71; PULSE 71–93; TEMP 36.2–36.8; O2SAT 97–100
[2017-04-17] MEDS: ALBUMIN HUMAN 25% 12.5 GM/50 ML VIAL IV SCH ×4 (00:04→17:59)
[2017-04-17] MEDS: FUROSEMIDE INJ 40 MG in SYRINGE 0 ML IV SCH ×2 (06:25→19:09)
[2017-04-17 06:57] LABS: HEMATOCRIT 23.5 % (42-52); MEAN CELL VOLUME 86.7 fL (80-100); MEAN CORPUSCULAR HGB CONC 32.3 g/dl (32-36); RED BLOOD COUNT 2.71 M/uL (4.7-6.1); WHITE BLOOD COUNT 2.22 K/uL (4.8-10.8)
[2017-04-17 07:00] LABS: MEAN PLATELET VOLUME 9.4 fL (7.4-10.4); PLATELET COUNT 43 K/uL (130-400)
[2017-04-17 07:31] LABS: BUN/CREATININE RATIO 16.5 (10-20); CALCIUM 7.9 mg/dl (8.5-10.1); CREATININE 2.7 mg/dl (0.60-1.40); MAGNESIUM 2.2 mg/dl (1.8-2.4); POTASSIUM 4.1 mmol/L (3.5-5.1)
[2017-04-17] MEDS: SPIRONOLACTONE 25 MG TAB PO SCH (10:15)
[2017-04-17] MEDS: FERROUS SULFATE 325 MG TAB PO SCH (10:16)
[2017-04-17] MEDS: RASPBERRY SYRUP 5 ML UDP PO SCH (10:17)
[2017-04-17] MEDS: VANCOMYCIN HCL 125 MG/2.5ML SOLN PO SCH (10:17)
[2017-04-17] MEDS: RIFAXIMIN TAB 550 MG TAB PO SCH ×2 (10:19→20:58)
[2017-04-17] MEDS: METOPROLOL SUCC 25MG EXT REL TAB PO SCH (10:20)
[2017-04-17] MEDS: INSULIN HUMAN REGULAR SC SCH ×4 (10:24→21:04)
--- NOTE | 2017-04-17 13:52 | Gastroenterology Progress Note ---
Progress Note Date of Service: Apr 17, 2017 Subjective Pt evaluation today including: conversation w/ patient, physical exam, chart review, lab review, review of inpatient medication list Pt c/o leg swelling. Denies any abd pain, n/v, trouble with SOB. Abd distension same. Review of Systems Constitutional: No fever, No chills Respiratory: No cough, No shortness of breath Cardiac: + edema, No chest pain Abdomen: + see HPI, No pain, No nausea, No vomiting, No diarrhea Medications Current Inpatient Medications Medications (Trade) Dose Ordered Sig/Gin Route Start Time Stop Time Status Last Admin Dose Admin Al Hydrox/Mg Hydrox/Simethicone (Maalox Max Susp) 15 ml Q4H PRN PO 04/13/17 18:00 05/13/17 17:59 Magnesium Hydroxide (Milk Of Magnesia Susp) 30 ml Q6H PRN PO 04/13/17 18:00 05/13/17 17:59 Ondansetron HCl (Zofran Inj) 4 mg Q6H PRN IV 04/13/17 18:00 05/13/17 17:59 Folic Acid (Folvite Tab) 1 mg DAILY PO 04/14/17 09:00 05/14/17 08:59 04/17/17 10:16 1 MG Metoprolol Succinate (Toprol Xl Tab) 12.5 mg DAILY PO 04/14/17 09:00 05/14/17 08:59 Nitroglycerin (Nitrostat Tab) 0.4 mg UD PRN UT 04/13/17 18:00 05/13/17 17:59 Ondansetron HCl (Zofran Tab) 4 mg Q6H PRN PO 04/13/17 18:00 05/13/17 17:59 Rifaximin (Xifaxan Tab) 550 mg BID PO 04/13/17 21:00 05/13/17 20:59 04/17/17 10:19 550 MG Spironolactone (Aldactone Tab) 25 mg QAM PO 04/14/17 09:00 05/14/17 08:59 04/17/17 10:15 25 MG Ferrous Sulfate (Feosol Tab) 325 mg DAILY PO 04/14/17 09:00 05/14/17 08:59 04/17/17 10:16 325 MG Insulin Human Regular (novoLIN-R) SLIDING SCALE IF C... ACHS SC 04/13/17 21:00 05/13/17 20:59 04/17/17 12:21 5 UNITS Glucose (Glucose 40% Gel) 15-30 GRAMS 15 GRAMS... UD PRN PO 04/13/17 18:15 05/13/17 18:14 Glucose (Glucose Chew Tab) 4-8 Tablets 4 Tabl... UD PRN PO 04/13/17 18:15 05/13/17 18:14 Dextrose (Dextrose 50% 50ML Syringe) 25-50ML OF 50% DW IV FOR... UD PRN IV 04/13/17 18:15 05/13/17 18:14 Glucagon (Glucagon Inj) 1 mg UD PRN SQ 04/13/17 18:15 05/13/17 18:14 Vancomycin HCl (Vancomycin Oral Soln) 125 mg Taper DAILY PO 04/14/17 09:00 05/05/17 08:59 04/17/17 10:17 125 MG Raspberry (Raspberry Syrup 5ml Cup) 5 ml Taper DAILY PO 04/14/17 09:00 05/05/17 08:59 04/17/17 10:17 5 ML Insulin Glargine (Lantus Solostar Pen) 10 units HS SQ 04/15/17 21:00 05/13/17 20:59 04/16/17 20:15 10 UNITS Albumin Human (Albumin 25%) 12.5 gm Q6 IV 04/16/17 00:00 04/19/17 00:00 04/17/17 12:21 12.5 GM Furosemide 40 mg/ Syringe 4 ml @ 4 mls/min Q12H IV 04/16/17 06:00 05/16/17 05:59 04/17/17 06:25 4 MLS/MIN Objective Vital Signs Date Time Temp Pulse Resp B/P (MAP) Pulse Ox O2 Delivery O2 Flow Rate FiO2 04/17/17 08:30 Room Air 04/17/17 07:31 36.8 93 18 101/64 (76) 100 CPAP 04/17/17 06:15 36.8 77 14 97/61 (73) 97 Nasal Cannula 2.0 CPAP 04/17/17 06:00 36.7 80 14 106/69 (81) 99 Nasal Cannula 2.0 CPAP 04/17/17 05:45 36.8 76 14 103/66 (78) 99 Nasal Cannula 2.0 CPAP 04/17/17 05:30 36.8 85 14 91/52 (65) 99 Nasal Cannula 2.0 CPAP 04/17/17 00:45 36.8 71 18 99/64 (76) 98 Room Air CPAP 04/17/17 00:30 36.7 77 18 98/62 (74) 100 Room Air CPAP 04/17/17 00:15 36.8 77 16 109/71 (84) 100 Nasal Cannula 2.0 04/16/17 23:30 100 Room Air 2.0 04/16/17 23:05 36.8 80 18 107/71 (83) 100 Room Air 04/16/17 21:20 CPAP 2.0 04/16/17 18:59 36.6 82 24 99/65 (76) 99 Room Air 04/16/17 17:54 36.4 71 113/69 (84) 100 Room Air 04/16/17 16:00 100 Room Air CPAP 04/16/17 15:21 36.5 140 18 104/68 (80) 82 Room Air Physical Exam General Appearance: WD/WN, no apparent distress, + obese Eyes: normal inspection, PERRL, EOMI Neck: supple, no JVD, trachea midline Respiratory/Chest: normal breath sounds, no respiratory distress, no accessory muscle use Cardiovascular: regular rate, rhythm, no gallop, no murmur Abdomen: normal bowel sounds, non tender, + distended (+ ascites) Neurologic/Psych: + disoriented (oriented mostly to self, place. very hard of hearing) Skin: normal color, no jaundice, no rash Laboratory Results Last 24 Hours Test 04/16/17 16:22 04/16/17 20:07 04/17/17 06:39 04/17/17 07:23 Bedside Glucose 119 mg/dl 169 mg/dl 85 mg/dl White Blood Count 2.22 K/uL Red Blood Count 2.71 M/uL Hemoglobin 7.6 g/dL Hematocrit 23.5 % Mean Corpuscular Volume 86.7 fL Mean Corpuscular Hemoglobin 28.0 pg Mean Corpuscular Hemoglobin Concent 32.3 g/dl RDW Standard Deviation 55.0 fL RDW Coefficient of Variation 17.1 % Platelet Count 43 K/uL Mean Platelet Volume 9.4 fL Sodium Level 138 mmol/L Potassium Level 4.1 mmol/L Chloride Level 105 mmol/L Carbon Dioxide Level 25 mmol/L Anion Gap 8.0 mmol/L Blood Urea Nitrogen 45 mg/dl Creatinine 2.70 mg/dl Est Creatinine Clear Calc Drug Dose 24.7 ml/min Estimated GFR () 23.5 Estimated GFR (Non- 20.3 BUN/Creatinine Ratio 16.5 Random Glucose 79 mg/dl Calcium Level 7.9 mg/dl Magnesium Level 2.2 mg/dl Test 04/17/17 11:19 Bedside Glucose 168 mg/dl Assessment and Plan Pt is a 87 y/o male w hx of 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 MELD 18 - Given thrombocytopenia, risk of bleeding, paracentesis have been deferred. If he is having issues w SOB, abd pain, would reconsider therapeutic/diagnostic paracentesis after platelet transfusion (Plt at least needs to be >50 for paracentesis). - Monitor renal function. Continue current diuretics at this time. Albumin 25% 12.5g q6hr - 2g Na diet. - Continue Vancomycin 125mg QID x 14 days for Cdiff - Continue Rifaximin 550mg BID. - Previously seen by Ruth Ann Mary (Palliative Care) in Jan - pt is already a DNR status and wants to continue paracentesis as long as he can tolerate it, not ready to transition to hospice at that time. attg add I interviewed and examined pt, reviewed chart and labs, agree with plans as above. Pt with advanced age, end stage cirrhosis. His urine na is > 41 and his creat is stable, although his weight is rising. Can cont to titrate diuretics, but he likely will cont require LVP. Consider fluid restrictuion in addition to salt restriction. Please call with questions.
[2017-04-17] MEDS: INSULIN GLARGINE SOLOSTAR 100 UNITS/ML 3 ML PEN SQ SCH (21:03)
[2017-04-18] VITALS (7 sets, daily range): BP systolic 101–109; BP diastolic 63–72; PULSE 18–109; TEMP 36.5–36.8; O2SAT 96–98
[2017-04-18] MEDS: ALBUMIN HUMAN 25% 12.5 GM/50 ML VIAL IV SCH ×5 (01:35→23:35)
--- NOTE | 2017-04-18 05:03 | Progress Note ---
Medicine Progress Note Date & Time of Visit: 04/17/17 (late entry) . Subjective Experiencing worsening abdominal discomfort. No nausea or vomiting. No diarrhea, melena, hematochezia. No chest pain. No cough or SOB. Voiding without difficulty. . Objective VS @ 07:31: temp 36.8, pulse 93, respirations 18, blood pressure 101/64 . Physical Exam: General- sitting in chair, no distress Eyes- anicteric Neck- no JVD Lungs- clear Heart- RRR, II/ sys murmur LSB, no gallop appreciated Abdomen- + BS, more distended, nontender Extremities- 3+ pretibial and pedal edema Neuro- alert, pleasantly confused . Laboratory Results: Last 24 Hours Test 04/17/17 06:39 04/17/17 07:23 04/17/17 11:19 04/17/17 16:29 White Blood Count 2.22 K/uL Red Blood Count 2.71 M/uL Hemoglobin 7.6 g/dL Hematocrit 23.5 % Mean Corpuscular Volume 86.7 fL Mean Corpuscular Hemoglobin 28.0 pg Mean Corpuscular Hemoglobin Concent 32.3 g/dl RDW Standard Deviation 55.0 fL RDW Coefficient of Variation 17.1 % Platelet Count 43 K/uL Mean Platelet Volume 9.4 fL Sodium Level 138 mmol/L Potassium Level 4.1 mmol/L Chloride Level 105 mmol/L Carbon Dioxide Level 25 mmol/L Anion Gap 8.0 mmol/L Blood Urea Nitrogen 45 mg/dl Creatinine 2.70 mg/dl Est Creatinine Clear Calc Drug Dose 24.7 ml/min Estimated GFR () 23.5 Estimated GFR (Non- 20.3 BUN/Creatinine Ratio 16.5 Random Glucose 79 mg/dl Calcium Level 7.9 mg/dl Magnesium Level 2.2 mg/dl Bedside Glucose 85 mg/dl 168 mg/dl 90 mg/dl Test 04/17/17 20:40 Bedside Glucose 149 mg/dl Assessment & Plan CIRRHOSIS / ASCITES 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 Worsening ascites. GI consulted. Paracentesis not recommended at that time due to thrombocytopenia. Worsening abdominal distention / discomfort despite IV furosemide and albumin. May need to reconsider paracentesis. Continue spironolactone with caution in light of CKD. Continue rifaximin. 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 Creatinine today = 2.7. Potassium today = 4.1. Continue IV furosemide and spironolactone with caution. Watch fluid status. Avoid potential nephrotoxins. Follow. HISTORY SINOATRIAL DISEASE / PAROXYSMAL ATRIAL FIB S/P pacemaker. Continue metoprolol. No anticoagulants due to cirrhosis and thrombocytopenia. COPD / SLEEP APNEA Respiratory status stable. Continue CPAP. DM TYPE II Well-controlled. Hgb A1C 6.2 02/07/17. Tight control not indicated given advanced age and comorbidities. FBS this morning = 85. Continue NovoLog with liberal blood sugar goals. MYELODYSPLASTIC SYNDROME Hgb today = 7.6. Anemia probably due to combination of MDS + CKD. No transfusion at this time per current guidelines. WBC today = 2220. Plts today = 43,000. Follow. RECURRENT C DIFF (present on admission) Continue vancomycin. VTE PROPHYLAXIS Chemoprophylaxis contraindicated in light of thrombocytopenia. SCD's. DISPOSITION To be determined. Probable return to [facility]. Family Medicine follow-up with Dr. Garza. Nephrology follow-up with Dr. Chong. . Current Inpatient Medications: Current Inpatient Medications Medications (Trade) Dose Ordered Sig/Gin Route Start Time Stop Time Status Last Admin Dose Admin Al Hydrox/Mg Hydrox/Simethicone (Maalox Max Susp) 15 ml Q4H PRN PO 04/13/17 18:00 05/13/17 17:59 Magnesium Hydroxide (Milk Of Magnesia Susp) 30 ml Q6H PRN PO 04/13/17 18:00 05/13/17 17:59 Ondansetron HCl (Zofran Inj) 4 mg Q6H PRN IV 04/13/17 18:00 05/13/17 17:59 Folic Acid (Folvite Tab) 1 mg DAILY PO 04/14/17 09:00 05/14/17 08:59 04/17/17 10:16 1 MG Metoprolol Succinate (Toprol Xl Tab) 12.5 mg DAILY PO 04/14/17 09:00 05/14/17 08:59 Nitroglycerin (Nitrostat Tab) 0.4 mg UD PRN UT 04/13/17 18:00 05/13/17 17:59 Ondansetron HCl (Zofran Tab) 4 mg Q6H PRN PO 04/13/17 18:00 05/13/17 17:59 Rifaximin (Xifaxan Tab) 550 mg BID PO 04/13/17 21:00 05/13/17 20:59 04/17/17 20:58 550 MG Spironolactone (Aldactone Tab) 25 mg QAM PO 04/14/17 09:00 05/14/17 08:59 04/17/17 10:15 25 MG Ferrous Sulfate (Feosol Tab) 325 mg DAILY PO 04/14/17 09:00 05/14/17 08:59 04/17/17 10:16 325 MG Insulin Human Regular (novoLIN-R) SLIDING SCALE IF C... ACHS SC 04/13/17 21:00 05/13/17 20:59 04/17/17 21:04 1 UNITS Glucose (Glucose 40% Gel) 15-30 GRAMS 15 GRAMS... UD PRN PO 04/13/17 18:15 05/13/17 18:14 Glucose (Glucose Chew Tab) 4-8 Tablets 4 Tabl... UD PRN PO 04/13/17 18:15 05/13/17 18:14 Dextrose (Dextrose 50% 50ML Syringe) 25-50ML OF 50% DW IV FOR... UD PRN IV 04/13/17 18:15 05/13/17 18:14 Glucagon (Glucagon Inj) 1 mg UD PRN SQ 04/13/17 18:15 05/13/17 18:14 Vancomycin HCl (Vancomycin Oral Soln) 125 mg Taper DAILY PO 04/14/17 09:00 05/05/17 08:59 04/17/17 10:17 125 MG Raspberry (Raspberry Syrup 5ml Cup) 5 ml Taper DAILY PO 04/14/17 09:00 05/05/17 08:59 04/17/17 10:17 5 ML Insulin Glargine (Lantus Solostar Pen) 10 units HS SQ 04/15/17 21:00 05/13/17 20:59 04/17/17 21:03 10 UNITS Albumin Human (Albumin 25%) 12.5 gm Q6 IV 04/16/17 00:00 04/19/17 00:00 04/18/17 01:35 12.5 GM Furosemide 40 mg/ Syringe 4 ml @ 4 mls/min Q12H IV 04/16/17 06:00 05/16/17 05:59 04/17/17 19:09 4 MLS/MIN
[2017-04-18] MEDS: FUROSEMIDE INJ 40 MG in SYRINGE 0 ML IV SCH ×2 (06:09→18:36)
--- NOTE | 2017-04-18 06:21 | Clinical Documentation Query ---
CLINICAL DOCUMENTATION QUERY 87 year old male who presents to the Emergency Room with complaints of increasing abdominal bloating. 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 Clinical Indicators: As above. Echo 12/20/16 showed EF of 65-70%. Treatment: IV Lasix, IV albumin, daily weighs, I/O's, Risk Factors: Age, CHF per daily progress notes, CKD, Please clarify and document your clinical opinion in the progress notes and discharge summary. Terms such as "probable", "suspected", "likely", "questionable", "possible", or "still to be ruled out" are acceptable. IF IN AGREEMENT, YOU MUST DOCUMENT ABOVE DIAGNOSTIC STATEMENT IN DAILY PROGRESS NOTES AND DISCHARGE SUMMARY. This document is not part of the patient's record. Thank You, Van Emery, SLOAN [phone]
[2017-04-18 07:56] LABS: HEMATOCRIT 24.5 % (42-52); MEAN CELL VOLUME 86.6 fL (80-100); MEAN CORPUSCULAR HEMOGLOBIN 27.2 pg (25-34); MEAN CORPUSCULAR HGB CONC 31.4 g/dl (32-36); RED BLOOD COUNT 2.83 M/uL (4.7-6.1); WHITE BLOOD COUNT 2.28 K/uL (4.8-10.8)
[2017-04-18 08:00] LABS: MEAN PLATELET VOLUME 9.5 fL (7.4-10.4); PLATELET COUNT 45 K/uL (130-400)
[2017-04-18 08:23] LABS: BUN/CREATININE RATIO 16.1 (10-20); CALCIUM 8.3 mg/dl (8.5-10.1); CREATININE 2.69 mg/dl (0.60-1.40); POTASSIUM 3.9 mmol/L (3.5-5.1)
[2017-04-18] MEDS: METOPROLOL SUCC 25MG EXT REL TAB PO SCH (09:42)
[2017-04-18] MEDS: RIFAXIMIN TAB 550 MG TAB PO SCH ×2 (09:43→20:40)
[2017-04-18] MEDS: VANCOMYCIN HCL 125 MG/2.5ML SOLN PO SCH (09:43)
[2017-04-18] MEDS: RASPBERRY SYRUP 5 ML UDP PO SCH (09:44)
[2017-04-18] MEDS: FERROUS SULFATE 325 MG TAB PO SCH (09:45)
[2017-04-18] MEDS: SPIRONOLACTONE 25 MG TAB PO SCH (09:45)
[2017-04-18] MEDS: INSULIN HUMAN REGULAR SC SCH ×4 (09:52→20:39)
--- NOTE | 2017-04-18 11:51 | Progress Note ---
Internal Med Progress Note Date of Service: Apr 18, 2017. Provider Documentation: SUBJECTIVE: The patient was seen and examined Complains of some abdominal discomfort No SOB at rest No problem with urine and or bowel habit OBJECTIVE: Vital Signs-as noted below Exam: General-Minimal discomfort at rest Eyes-Normal ENT-normal Neck-Supple Lungs-Clear to auscultate bilaterally with decreased breath sound at the bases Heart-Regular,no murmur appreciated Abdomen-Benign,no masses,bowel sound present Extremities-2+ Edema bilaterally Neuro-AA Generally weak and lethargica Lab data as noted below. 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 Worsening ascites. GI consulted-appreciate input Paracentesis not recommended at that time due to thrombocytopenia but may eventually need it Has been on IV furosemide and albumin. Continue spironolactone with caution in light of CKD. Continue rifaximin. 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 Creatinine today = 2.69-remains stable for the last few days. Continue IV furosemide and spironolactone with caution. Watch fluid status. Avoid potential nephrotoxins. Kidney function remains stable -consult Nephrology if any worse HISTORY SINOATRIAL DISEASE / PAROXYSMAL ATRIAL FIB S/P pacemaker. Continue metoprolol. No anticoagulants due to cirrhosis and thrombocytopenia. COPD / SLEEP APNEA Respiratory status stable. Continue CPAP. DM TYPE II Well-controlled. Hgb A1C 6.2 02/07/17. Tight control not indicated given advanced age and comorbidities. FBS this morning = 85. Continue NovoLog with liberal blood sugar goals. MYELODYSPLASTIC SYNDROME Hgb today = 7.7 remains stable foe the last few days. Anemia probably due to combination of MDS + CKD. No transfusion at this time per current guidelines. Transfuse if Hb drops below 7.0 Platelet 45 on 04/18 RECURRENT C DIFF (present on admission) Continue vancomycin. VTE PROPHYLAXIS Chemoprophylaxis contraindicated in light of thrombocytopenia. SCD's. DISPOSITION To be determined. Probable return to [facility]. Family Medicine follow-up with Dr. Garza. Nephrology follow-up with Dr. Chong. Vital Signs: Date Time Temp Pulse Resp B/P (MAP) Pulse Ox O2 Delivery O2 Flow Rate FiO2 04/18/17 08:00 96 CPAP 2.0 04/18/17 07:37 36.8 109 18 109/72 (84) 96 CPAP 2.0 04/18/17 00:00 CPAP 2.0 04/17/17 23:05 36.5 80 16 98/63 (75) 100 Room Air CPAP 04/17/17 19:10 76 18 103/71 (82) 04/17/17 17:58 36.6 73 18 112/67 (82) Room Air 04/17/17 16:00 100 Room Air 04/17/17 15:15 36.2 71 18 100/67 (78) Room Air Lab Results: Results Past 24 Hours Test 04/17/17 16:29 04/17/17 20:40 04/18/17 07:25 04/18/17 07:34 Range/Units Bedside Glucose 90 149 93 70-99 mg/dl White Blood Count 2.28 4.8-10.8 K/uL Red Blood Count 2.83 4.7-6.1 M/uL Hemoglobin 7.7 14.0-18.0 g/dL Hematocrit 24.5 42-52 % Mean Corpuscular Volume 86.6 80-100 fL Mean Corpuscular Hemoglobin 27.2 25-34 pg Mean Corpuscular Hemoglobin Concent 31.4 32-36 g/dl RDW Standard Deviation 54.6 36.4-46.3 fL RDW Coefficient of Variation 16.9 11.5-14.5 % Platelet Count 45 130-400 K/uL Mean Platelet Volume 9.5 7.4-10.4 fL Sodium Level 140 136-145 mmol/L Potassium Level 3.9 3.5-5.1 mmol/L Chloride Level 106 98-107 mmol/L Carbon Dioxide Level 28 21-32 mmol/L Anion Gap 6.0 3-11 mmol/L Blood Urea Nitrogen 43 7-18 mg/dl Creatinine 2.69 0.60-1.40 mg/dl Est Creatinine Clear Calc Drug Dose 24.6 ml/min Estimated GFR () 23.6 Estimated GFR (Non- 20.4 BUN/Creatinine Ratio 16.1 10-20 Random Glucose 80 70-99 mg/dl Calcium Level 8.3 8.5-10.1 mg/dl
[2017-04-18] MEDS: INSULIN GLARGINE SOLOSTAR 100 UNITS/ML 3 ML PEN SQ SCH (20:43)
[2017-04-19] VITALS (7 sets, daily range): BP systolic 94–129; BP diastolic 55–81; PULSE 73–86; TEMP 36.3–36.7; O2SAT 95–98; Ht 182.9 cm; Wt 108.2 kg
[2017-04-19] MEDS: FUROSEMIDE INJ 40 MG in SYRINGE 0 ML IV SCH ×2 (06:15→17:43)
[2017-04-19 06:48] LABS: HEMATOCRIT 23.7 % (42-52); MEAN CELL VOLUME 86.5 fL (80-100); MEAN CORPUSCULAR HEMOGLOBIN 27.7 pg (25-34); MEAN CORPUSCULAR HGB CONC 32.1 g/dl (32-36); RED BLOOD COUNT 2.74 M/uL (4.7-6.1); WHITE BLOOD COUNT 2.16 K/uL (4.8-10.8)
[2017-04-19 07:19] LABS: BUN/CREATININE RATIO 15.5 (10-20); CREATININE 2.68 mg/dl (0.60-1.40); POTASSIUM 3.9 mmol/L (3.5-5.1)
[2017-04-19 07:26] LABS: PLATELET COUNT 43 K/uL (130-400)
[2017-04-19 07:42] LABS: MEAN PLATELET VOLUME 9.3 fL (7.4-10.4)
[2017-04-19] MEDS: VANCOMYCIN HCL 125 MG/2.5ML SOLN PO SCH (08:38)
[2017-04-19] MEDS: METOPROLOL SUCC 25MG EXT REL TAB PO SCH (08:38)
[2017-04-19] MEDS: FERROUS SULFATE 325 MG TAB PO SCH (08:38)
[2017-04-19] MEDS: RASPBERRY SYRUP 5 ML UDP PO SCH (08:38)
[2017-04-19] MEDS: SPIRONOLACTONE 25 MG TAB PO SCH (08:38)
[2017-04-19] MEDS: RIFAXIMIN TAB 550 MG TAB PO SCH ×2 (08:39→20:58)
[2017-04-19] MEDS: INSULIN HUMAN REGULAR SC SCH ×4 (08:42→20:55)
--- NOTE | 2017-04-19 14:22 | Progress Note ---
Internal Med Progress Note Date of Service: Apr 19, 2017. Provider Documentation: SUBJECTIVE: The patient was seen and examined Complains of some abdominal discomfort No SOB at rest No problem with urine and or bowel habit Gets SOB and tired with minimal exertion OBJECTIVE: Vital Signs-as noted below Exam: General-Minimal discomfort at rest Eyes-Normal ENT-normal Neck-Supple Lungs-Clear to auscultate bilaterally with decreased breath sound at the bases Heart-Regular,no murmur appreciated Abdomen-Benign,no masses,bowel sound present Has tense ascites Extremities-2+ Edema bilaterally Neuro-AA Generally weak and lethargica Lab data as noted below. 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 Worsening ascites. GI consulted-appreciate input Paracentesis not recommended at that time due to thrombocytopenia but may eventually need it Has been on IV furosemide and albumin. Continue spironolactone with caution in light of CKD. Continue rifaximin. 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 Creatinine today = 2.69-remains stable for the last few days. Continue IV furosemide and spironolactone with caution. Watch fluid status. Avoid potential nephrotoxins. Kidney function remains stable -consult Nephrology if any worse HISTORY SINOATRIAL DISEASE / PAROXYSMAL ATRIAL FIB S/P pacemaker. Continue metoprolol. No anticoagulants due to cirrhosis and thrombocytopenia. COPD / SLEEP APNEA Respiratory status stable. Continue CPAP. DM TYPE II Well-controlled. Hgb A1C 6.2 02/07/17. Tight control not indicated given advanced age and comorbidities. FBS this morning = 85. Continue NovoLog with liberal blood sugar goals. MYELODYSPLASTIC SYNDROME Hgb today = 7.7 remains stable foe the last few days. Anemia probably due to combination of MDS + CKD. No transfusion at this time per current guidelines. Transfuse if Hb drops below 7.0 Platelet 45 on 04/18 RECURRENT C DIFF (present on admission) Continue vancomycin. VTE PROPHYLAXIS Chemoprophylaxis contraindicated in light of thrombocytopenia. SCD's. DISPOSITION To be determined. Probable return to [facility]. Family Medicine follow-up with Dr. Garza. Nephrology follow-up with Dr. Chong. Vital Signs: Date Time Temp Pulse Resp B/P (MAP) Pulse Ox O2 Delivery O2 Flow Rate FiO2 04/19/17 08:00 96 Room Air 04/19/17 07:32 36.7 74 18 103/65 (78) 98 BiPAP 04/19/17 00:00 CPAP 2.0 04/18/17 23:59 36.8 67 20 103/67 (79) 98 CPAP 2.0 04/18/17 18:34 77 18 104/65 (78) 98 Room Air 04/18/17 17:46 36.6 77 18 103/72 (82) 98 Room Air 04/18/17 16:00 98 Room Air 04/18/17 15:32 36.5 77 18 101/63 (76) 98 Room Air 18 Lab Results: Results Past 24 Hours Test 04/18/17 16:17 04/18/17 20:32 04/19/17 06:22 04/19/17 07:42 Range/Units Bedside Glucose 111 103 77 70-99 mg/dl White Blood Count 2.16 4.8-10.8 K/uL Red Blood Count 2.74 4.7-6.1 M/uL Hemoglobin 7.6 14.0-18.0 g/dL Hematocrit 23.7 42-52 % Mean Corpuscular Volume 86.5 80-100 fL Mean Corpuscular Hemoglobin 27.7 25-34 pg Mean Corpuscular Hemoglobin Concent 32.1 32-36 g/dl RDW Standard Deviation 54.6 36.4-46.3 fL RDW Coefficient of Variation 17.2 11.5-14.5 % Platelet Count 43 130-400 K/uL Mean Platelet Volume 9.3 7.4-10.4 fL Sodium Level 141 136-145 mmol/L Potassium Level 3.9 3.5-5.1 mmol/L Chloride Level 106 98-107 mmol/L Carbon Dioxide Level 28 21-32 mmol/L Anion Gap 7.0 3-11 mmol/L Blood Urea Nitrogen 42 7-18 mg/dl Creatinine 2.68 0.60-1.40 mg/dl Est Creatinine Clear Calc Drug Dose 24.9 ml/min Estimated GFR () 23.7 Estimated GFR (Non- 20.5 BUN/Creatinine Ratio 15.5 10-20 Random Glucose 68 70-99 mg/dl Calcium Level 8.0 8.5-10.1 mg/dl Magnesium Level 2.0 1.8-2.4 mg/dl Test 04/19/17 11:25 Range/Units Bedside Glucose 141 70-99 mg/dl
[2017-04-19 19:50] LABS: INR 1.2 (0.9-1.1); PROTHROMBIN TIME (PATIENT) 13.4 SECONDS (9.0-12.0)
[2017-04-19] MEDS: INSULIN GLARGINE SOLOSTAR 100 UNITS/ML 3 ML PEN SQ SCH (20:57)
[2017-04-20] VITALS (11 sets, daily range): BP systolic 90–128; BP diastolic 50–69; PULSE 67–89; TEMP 36.3–36.8; O2SAT 94–100
[2017-04-20] MEDS: FUROSEMIDE INJ 40 MG in SYRINGE 0 ML IV SCH ×2 (05:45→19:50)
[2017-04-20 06:25] LABS: HEMATOCRIT 24.4 % (42-52); MEAN CELL VOLUME 87.1 fL (80-100); MEAN CORPUSCULAR HEMOGLOBIN 27.5 pg (25-34); MEAN CORPUSCULAR HGB CONC 31.6 g/dl (32-36); WHITE BLOOD COUNT 2.56 K/uL (4.8-10.8)
[2017-04-20 06:38] LABS: PLATELET COUNT 47 K/uL (130-400)
[2017-04-20 06:50] LABS: BUN/CREATININE RATIO 15.9 (10-20); CREATININE 2.57 mg/dl (0.60-1.40); MAGNESIUM 2.1 mg/dl (1.8-2.4); POTASSIUM 3.7 mmol/L (3.5-5.1)
[2017-04-20] MEDS: INSULIN HUMAN REGULAR SC SCH ×4 (08:32→21:35)
[2017-04-20] MEDS: ALBUMIN HUMAN 25% 12.5 GM/50 ML VIAL IV SCH ×2 (08:35→14:47)
[2017-04-20] MEDS: METOPROLOL SUCC 25MG EXT REL TAB PO SCH (09:00)
[2017-04-20 13:18] LABS: PLATELET COUNT 58 K/uL (130-400)
--- NOTE | 2017-04-20 14:31 | DIAGNOSTIC IMAGING REPORT ---
PARACENTESIS ABDOMEN W/IMAGING CLINICAL HISTORY: 87 years-old Male presenting with Tense ascites. COMPARISON: 04/13/2017 and multiple additional priors. PROCEDURE: The procedure and its risks, benefits and alternatives were discussed with the patient, and written informed consent was obtained. A timeout was performed to confirm patient identity. Limited ultrasound of the abdomen was performed to determine a safe needle entry site. The right lower quadrant was prepped and draped in the usual aseptic fashion. 1% Lidocaine was used for local anesthesia. A paracentesis needle-sheath was inserted into the peritoneal space using ultrasound guidance. The needle was removed and the sheath was connected to tubing and a vacuum suction device. A total of 10 L of cloudy yellow ascites was aspirated. The sheath was removed, and a dressing applied. The patient tolerated the procedure well. No immediate complications. IMPRESSION: Ultrasound-guided therapeutic paracentesis with aspiration of 10 L of ascites. Electronically signed by: Ariel Ward M.D. 04/20/2017 2:29 PM Dictated Date/Time: 04/20/2017 2:28 PM
[2017-04-20] MEDS: RASPBERRY SYRUP 5 ML UDP PO SCH (14:54)
[2017-04-20] MEDS: VANCOMYCIN HCL 125 MG/2.5ML SOLN PO SCH (14:54)
[2017-04-20] MEDS: RIFAXIMIN TAB 550 MG TAB PO SCH ×2 (14:55→21:31)
[2017-04-20] MEDS: FERROUS SULFATE 325 MG TAB PO SCH (14:56)
[2017-04-20] MEDS: SPIRONOLACTONE 25 MG TAB PO SCH (14:56)
--- NOTE | 2017-04-20 16:39 | Progress Note ---
Internal Med Progress Note Date of Service: Apr 20, 2017. Provider Documentation: SUBJECTIVE: The patient was seen and examined Complains of some abdominal discomfort No SOB at rest Waiting for Paracentesis -remains stable OBJECTIVE: Vital Signs-as noted below Exam: General-Minimal discomfort at rest Eyes-Normal ENT-normal Neck-Supple Lungs-Clear to auscultate bilaterally with decreased breath sound at the bases Heart-Regular,no murmur appreciated Abdomen-Distended,Tense ,Tender,bowel sound present Has tense ascites Extremities-2+ Edema bilaterally Neuro-AA Generally weak and lethargica Lab data as noted below. 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 Worsening ascites. GI consulted-appreciate input Paracentesis not recommended at that time due to thrombocytopenia but may eventually need it Has been on IV furosemide and albumin. Continue spironolactone with caution in light of CKD. Continue rifaximin. 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 Creatinine today = 2.69-remains stable for the last few days. Continue IV furosemide and spironolactone with caution. Watch fluid status. Avoid potential nephrotoxins. Kidney function remains stable -consult Nephrology if any worse HISTORY SINOATRIAL DISEASE / PAROXYSMAL ATRIAL FIB S/P pacemaker. Continue metoprolol. No anticoagulants due to cirrhosis and thrombocytopenia. COPD / SLEEP APNEA Respiratory status stable. Continue CPAP. No acute issue DM TYPE II Well-controlled. Hgb A1C 6.2 02/07/17. Tight control not indicated given advanced age and comorbidities. FBS this morning = 85. Continue NovoLog with liberal blood sugar goals. MYELODYSPLASTIC SYNDROME Hgb today = 7.7 remains stable foe the last few days. Anemia probably due to combination of MDS + CKD. No transfusion at this time per current guidelines. Transfuse if Hb drops below 7.0 Platelet 45 on 04/18 S/P 2 units of Platelet transfusion RECURRENT C DIFF (present on admission) Continue vancomycin. VTE PROPHYLAXIS Chemoprophylaxis contraindicated in light of thrombocytopenia. SCD's. DISPOSITION To be determined. Probable return to [facility]. Family Medicine follow-up with Dr. Garza. Nephrology follow-up with Dr. Chong. Vital Signs: Date Time Temp Pulse Resp B/P (MAP) Pulse Ox O2 Delivery O2 Flow Rate FiO2 04/20/17 16:13 36.8 82 18 128/66 (86) 100 Room Air 04/20/17 14:39 36.4 86 20 92/55 (67) 04/20/17 10:40 36.3 80 18 101/63 100 04/20/17 10:10 36.4 69 18 97/62 95 04/20/17 09:55 36.4 67 18 95/59 96 2.0 04/20/17 09:34 36.4 81 18 105/69 94 2.0 04/20/17 08:21 36.5 75 18 99/65 (76) 100 BiPAP 04/20/17 08:00 94 Room Air 04/20/17 00:19 36.3 89 20 93/64 (74) 94 Nasal Cannula 2.0 04/20/17 00:00 CPAP 2.0 Lab Results: Results Past 24 Hours Test 04/19/17 16:56 04/19/17 19:22 04/19/17 19:51 04/20/17 06:04 Range/Units Bedside Glucose 101 158 70-99 mg/dl Prothrombin Time 13.4 9.0-12.0 SECONDS Prothromb Time International Ratio 1.2 0.9-1.1 White Blood Count 2.56 4.8-10.8 K/uL Red Blood Count 2.80 4.7-6.1 M/uL Hemoglobin 7.7 14.0-18.0 g/dL Hematocrit 24.4 42-52 % Mean Corpuscular Volume 87.1 80-100 fL Mean Corpuscular Hemoglobin 27.5 25-34 pg Mean Corpuscular Hemoglobin Concent 31.6 32-36 g/dl RDW Standard Deviation 54.1 36.4-46.3 fL RDW Coefficient of Variation 16.9 11.5-14.5 % Platelet Count 47 130-400 K/uL Mean Platelet Volume 9.0 7.4-10.4 fL Sodium Level 138 136-145 mmol/L Potassium Level 3.7 3.5-5.1 mmol/L Chloride Level 105 98-107 mmol/L Carbon Dioxide Level 28 21-32 mmol/L Anion Gap 5.0 3-11 mmol/L Blood Urea Nitrogen 41 7-18 mg/dl Creatinine 2.57 0.60-1.40 mg/dl Est Creatinine Clear Calc Drug Dose 26.0 ml/min Estimated GFR () 24.9 Estimated GFR (Non- 21.5 BUN/Creatinine Ratio 15.9 10-20 Random Glucose 79 70-99 mg/dl Calcium Level 8.0 8.5-10.1 mg/dl Magnesium Level 2.1 1.8-2.4 mg/dl Test 04/20/17 07:43 04/20/17 11:01 04/20/17 12:30 Range/Units Bedside Glucose 99 77 70-99 mg/dl Platelet Count 58 130-400 K/uL
[2017-04-20] MEDS: INSULIN GLARGINE SOLOSTAR 100 UNITS/ML 3 ML PEN SQ SCH (21:36)
[2017-04-21 00:43] VITALS: BP 90/56; PULSE 74; TEMP 36.7; O2SAT 100
[2017-04-21] MEDS: FUROSEMIDE INJ 40 MG in SYRINGE 0 ML IV SCH (05:49)
[2017-04-21 05:50] VITALS: BP 98/61; PULSE 79
[2017-04-21 06:33] LABS: HEMATOCRIT 22.6 % (42-52); MEAN CELL VOLUME 86.9 fL (80-100); MEAN CORPUSCULAR HEMOGLOBIN 28.5 pg (25-34); MEAN CORPUSCULAR HGB CONC 32.7 g/dl (32-36); WHITE BLOOD COUNT 2.02 K/uL (4.8-10.8)
[2017-04-21 06:56] LABS: MEAN PLATELET VOLUME 8.6 fL (7.4-10.4); PLATELET COUNT 52 K/uL (130-400)
[2017-04-21 07:07] LABS: BUN/CREATININE RATIO 16.4 (10-20); CREATININE 2.53 mg/dl (0.60-1.40); MAGNESIUM 2.2 mg/dl (1.8-2.4); POTASSIUM 3.9 mmol/L (3.5-5.1)
[2017-04-21 08:00] VITALS: O2SAT 94
[2017-04-21 08:03] VITALS: BP 95/58; PULSE 71; TEMP 36.9; O2SAT 99
[2017-04-21] MEDS: RASPBERRY SYRUP 5 ML UDP PO SCH (08:04)
[2017-04-21] MEDS: VANCOMYCIN HCL 125 MG/2.5ML SOLN PO SCH (08:04)
[2017-04-21] MEDS: SPIRONOLACTONE 25 MG TAB PO SCH (08:04)
[2017-04-21] MEDS: FERROUS SULFATE 325 MG TAB PO SCH (08:04)
[2017-04-21] MEDS: RIFAXIMIN TAB 550 MG TAB PO SCH ×2 (08:05→21:17)
[2017-04-21] MEDS: METOPROLOL SUCC 25MG EXT REL TAB PO SCH (08:05)
[2017-04-21] MEDS: INSULIN HUMAN REGULAR SC SCH ×4 (08:13→21:00)
--- NOTE | 2017-04-21 16:34 | Progress Note ---
Internal Med Progress Note Date of Service: Apr 21, 2017. Provider Documentation: SUBJECTIVE: The patient was seen and examined Complains of some abdominal discomfort No SOB at rest S/P Paracentesis Feels a lot better following Paracentesis OBJECTIVE: Vital Signs-as noted below Exam: General-No discomfort at rest Eyes-Normal ENT-normal Neck-Supple Lungs-Clear to auscultate bilaterally with decreased breath sound at the bases Heart-Regular,no murmur appreciated Abdomen-Distended,Tense ,Tender,bowel sound present Has tense ascites Extremities-1+ Edema bilaterally Neuro-AA Generally weak and lethargica Lab data as noted below. 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 Worsening ascites. GI consulted-appreciate input Paracentesis not recommended at that time due to thrombocytopenia but may eventually need it Has been on IV furosemide and albumin. Continue spironolactone with caution in light of CKD. Continue rifaximin. 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 Creatinine today = 2.69-remains stable for the last few days. Continue IV furosemide and spironolactone with caution. Watch fluid status. Avoid potential nephrotoxins. Kidney function remains stable -consult Nephrology if any worse HISTORY SINOATRIAL DISEASE / PAROXYSMAL ATRIAL FIB S/P pacemaker. Continue metoprolol. No anticoagulants due to cirrhosis and thrombocytopenia. COPD / SLEEP APNEA Respiratory status stable. Continue CPAP. No acute issue DM TYPE II Well-controlled. Hgb A1C 6.2 02/07/17. Tight control not indicated given advanced age and comorbidities. FBS this morning = 85. Continue NovoLog with liberal blood sugar goals. MYELODYSPLASTIC SYNDROME Hgb today = 7.7 remains stable foe the last few days. Anemia probably due to combination of MDS + CKD. No transfusion at this time per current guidelines. Transfuse if Hb drops below 7.0 Platelet 45 on 04/18 S/P 2 units of Platelet transfusion Platelet went up to 58 RECURRENT C DIFF (present on admission) Continue vancomycin. VTE PROPHYLAXIS Chemoprophylaxis contraindicated in light of thrombocytopenia. SCD's. DISPOSITION To be determined. Probable return to [facility]. Family Medicine follow-up with Dr. Garza. Nephrology follow-up with Dr. Chong. Vital Signs: Date Time Temp Pulse Resp B/P (MAP) Pulse Ox O2 Delivery O2 Flow Rate FiO2 04/21/17 08:03 36.9 71 18 95/58 (70) 99 Room Air 04/21/17 08:00 94 Room Air 04/21/17 05:50 79 98/61 (73) 04/21/17 00:43 36.7 74 18 90/56 (67) 100 CPAP 04/21/17 00:00 CPAP 2.0 04/20/17 19:40 75 90/50 (63) 04/20/17 16:48 36.3 80 18 91/52 (65) 99 Room Air Lab Results: Results Past 24 Hours Test 04/20/17 16:46 04/20/17 20:08 04/21/17 06:23 04/21/17 07:48 Range/Units Bedside Glucose 141 160 87 70-99 mg/dl White Blood Count 2.02 4.8-10.8 K/uL Red Blood Count 2.60 4.7-6.1 M/uL Hemoglobin 7.4 14.0-18.0 g/dL Hematocrit 22.6 42-52 % Mean Corpuscular Volume 86.9 80-100 fL Mean Corpuscular Hemoglobin 28.5 25-34 pg Mean Corpuscular Hemoglobin Concent 32.7 32-36 g/dl RDW Standard Deviation 54.0 36.4-46.3 fL RDW Coefficient of Variation 16.8 11.5-14.5 % Platelet Count 52 130-400 K/uL Mean Platelet Volume 8.6 7.4-10.4 fL Sodium Level 139 136-145 mmol/L Potassium Level 3.9 3.5-5.1 mmol/L Chloride Level 106 98-107 mmol/L Carbon Dioxide Level 27 21-32 mmol/L Anion Gap 6.0 3-11 mmol/L Blood Urea Nitrogen 42 7-18 mg/dl Creatinine 2.53 0.60-1.40 mg/dl Est Creatinine Clear Calc Drug Dose 26.1 ml/min Estimated GFR () 25.4 Estimated GFR (Non- 21.9 BUN/Creatinine Ratio 16.4 10-20 Random Glucose 82 70-99 mg/dl Calcium Level 8.0 8.5-10.1 mg/dl Magnesium Level 2.2 1.8-2.4 mg/dl Test 04/21/17 11:49 Range/Units Bedside Glucose 129 70-99 mg/dl
[2017-04-21 16:43] VITALS: BP 97/59; PULSE 65; TEMP 36.5; O2SAT 97
[2017-04-21] MEDS: FUROSEMIDE 40 MG TAB PO SCH (17:26)
[2017-04-21] MEDS: INSULIN GLARGINE SOLOSTAR 100 UNITS/ML 3 ML PEN SQ SCH (21:29)
[2017-04-21 23:51] VITALS: BP 101/65; PULSE 65; TEMP 36.4; O2SAT 97
[2017-04-22 06:59] LABS: MEAN CELL VOLUME 86.6 fL (80-100); MEAN CORPUSCULAR HEMOGLOBIN 27.8 pg (25-34); MEAN CORPUSCULAR HGB CONC 32.1 g/dl (32-36); RED BLOOD COUNT 2.77 M/uL (4.7-6.1); WHITE BLOOD COUNT 2.03 K/uL (4.8-10.8)
[2017-04-22 07:01] LABS: MEAN PLATELET VOLUME 8.8 fL (7.4-10.4); PLATELET COUNT 50 K/uL (130-400)
[2017-04-22 07:04] VITALS: BP 91/57; PULSE 72; TEMP 36.6; O2SAT 99
[2017-04-22 07:37] LABS: BUN/CREATININE RATIO 16.6 (10-20); CALCIUM 7.9 mg/dl (8.5-10.1); CREATININE 2.59 mg/dl (0.60-1.40); MAGNESIUM 2.2 mg/dl (1.8-2.4)
[2017-04-22 08:46] VITALS: BP 106/66; PULSE 68
[2017-04-22] MEDS: FERROUS SULFATE 325 MG TAB PO SCH (08:50)
[2017-04-22] MEDS: METOPROLOL SUCC 25MG EXT REL TAB PO SCH (08:50)
[2017-04-22] MEDS: RIFAXIMIN TAB 550 MG TAB PO SCH (08:50)
[2017-04-22] MEDS: FUROSEMIDE 40 MG TAB PO SCH ×2 (08:51→17:09)
[2017-04-22] MEDS: INSULIN HUMAN REGULAR SC SCH ×3 (08:54→17:12)
[2017-04-22] MEDS ORDERED: SPIRONOLACTONE 25 MG TAB PO SCH (09:00)
--- NOTE | 2017-04-22 11:43 | Progress Note ---
Internal Med Progress Note Date of Service: Apr 22, 2017. Provider Documentation: SUBJECTIVE: The patient was seen and examined Complains of some abdominal discomfort No SOB at rest S/P Paracentesis Denies any new symptoms Leg swelling is better OBJECTIVE: Vital Signs-as noted below Exam: General-No discomfort at rest Eyes-Normal ENT-normal Neck-Supple Lungs-Clear to auscultate bilaterally with decreased breath sound at the bases Heart-Regular,no murmur appreciated Abdomen-Distended,soft ,non-Tender,bowel sound present Extremities-1+ Edema bilaterally Neuro-AA Generally weak and lethargica Lab data as noted below. 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 Worsening ascites. GI consulted-appreciate input Paracentesis not recommended at that time due to thrombocytopenia but may eventually need it Has been on IV furosemide and albumin. Continue spironolactone with caution in light of CKD. Continue rifaximin. 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 Creatinine today = 2.69-remains stable for the last few days. Continue IV furosemide and spironolactone with caution. Watch fluid status. Avoid potential nephrotoxins. Kidney function remains stable -consult Nephrology if any worse HISTORY SINOATRIAL DISEASE / PAROXYSMAL ATRIAL FIB S/P pacemaker. Continue metoprolol. No anticoagulants due to cirrhosis and thrombocytopenia. COPD / SLEEP APNEA Respiratory status stable. Continue CPAP. No acute issue DM TYPE II Well-controlled. Hgb A1C 6.2 02/07/17. Tight control not indicated given advanced age and comorbidities. FBS this morning = 85. Continue NovoLog with liberal blood sugar goals. MYELODYSPLASTIC SYNDROME Hgb today = 7.7 remains stable foe the last few days. Anemia probably due to combination of MDS + CKD. No transfusion at this time per current guidelines. Transfuse if Hb drops below 7.0 Platelet 45 on 04/18 S/P 2 units of Platelet transfusion Platelet went up to 58 0n 04/21 RECURRENT C DIFF (present on admission) Continue vancomycin. VTE PROPHYLAXIS Chemoprophylaxis contraindicated in light of thrombocytopenia. SCD's. DISPOSITION To be determined. Probable return to [facility]. Family Medicine follow-up with Dr. Garza. Nephrology follow-up with Dr. Chong. Likely to be transferred to [facility] today Vital Signs: Date Time Temp Pulse Resp B/P (MAP) Pulse Ox O2 Delivery O2 Flow Rate FiO2 04/22/17 08:46 68 106/66 (79) 04/22/17 07:45 Room Air 04/22/17 07:04 36.6 72 16 91/57 (68) 99 Room Air 04/22/17 00:00 Room Air 04/21/17 23:51 36.4 65 16 101/65 (77) 97 CPAP 04/21/17 17:00 Room Air 04/21/17 16:43 36.5 65 16 97/59 (72) 97 Room Air Lab Results: Results Past 24 Hours Test 04/21/17 11:49 04/21/17 16:58 04/21/17 20:20 04/22/17 06:38 Range/Units Bedside Glucose 129 187 104 70-99 mg/dl White Blood Count 2.03 4.8-10.8 K/uL Red Blood Count 2.77 4.7-6.1 M/uL Hemoglobin 7.7 14.0-18.0 g/dL Hematocrit 24.0 42-52 % Mean Corpuscular Volume 86.6 80-100 fL Mean Corpuscular Hemoglobin 27.8 25-34 pg Mean Corpuscular Hemoglobin Concent 32.1 32-36 g/dl RDW Standard Deviation 53.2 36.4-46.3 fL RDW Coefficient of Variation 16.6 11.5-14.5 % Platelet Count 50 130-400 K/uL Mean Platelet Volume 8.8 7.4-10.4 fL Sodium Level 138 136-145 mmol/L Potassium Level 4.0 3.5-5.1 mmol/L Chloride Level 106 98-107 mmol/L Carbon Dioxide Level 27 21-32 mmol/L Anion Gap 5.0 3-11 mmol/L Blood Urea Nitrogen 43 7-18 mg/dl Creatinine 2.59 0.60-1.40 mg/dl Est Creatinine Clear Calc Drug Dose 25.5 ml/min Estimated GFR () 24.7 Estimated GFR (Non- 21.3 BUN/Creatinine Ratio 16.6 10-20 Random Glucose 97 70-99 mg/dl Calcium Level 7.9 8.5-10.1 mg/dl Magnesium Level 2.2 1.8-2.4 mg/dl Test 04/22/17 07:36 Range/Units Bedside Glucose 100 70-99 mg/dl
[2017-04-22 14:26] VITALS: BP 106/66; PULSE 68; TEMP 36.6; O2SAT 99
[2017-04-22] MEDS ORDERED: SPR25 PO (14:44)
--- NOTE | 2017-04-22 14:49 | Discharge Instructions ---
Discharge Instructions Date of Service Apr 22, 2017. Admission Reason for Admission: Decompensation Of Cirrhosis Of Liver Discharge Discharge Diagnosis / Problem: Cirrhosis with recurrent Ascites,CKD,DM Discharge Goals Goal(s): Prevent Disease Progression Activity Recommendations Activity Level: Assistance Required Therapies: Physical Therapy, Occupational Therapy . Additional Information Patient informed of condition: Yes Advance Directives: No DNR: Yes Level of Care: Skilled Communicable Disease: No Prognosis: Stable Oxygen at (LPM): 2 liters via NC as needed Domingo Catheter: No Instructions / Follow-Up Instructions / Follow-Up Please make an appointment with your PCP in 1 week,GI appointment as needed Current Hospital Diet Patient's current hospital diet: Low Sodium Diet (2gm Na), Diabetes Type 2 Diet Discharge Diet Recommended Diet: Low Sodium Diet (2gm Na), Diabetes Type 2 Diet Fluid Restriction: 1500 ml (6 cups) Pending Studies Studies pending at discharge: no Laboratory Results Hemoglobin A1c Test 04/14/17 05:25 Range/Units Estimated Average Glucose 120 mg/dl Hemoglobin A1c 5.8 H 4.5-5.6 % Medical Emergencies . Who to Call and When: Medical Emergencies: If at any time you feel your situation is an emergency, please call 911 immediately. . Non-Emergent Contact Non-Emergency issues call your: Primary Care Provider . 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 "Provider Documentation" section prepared by Swati Granado. . Core Measure Problem Core Measures: None
--- NOTE | 2017-04-22 16:20 | Discharge Instructions ---
Discharge Instructions Date of Service Apr 22, 2017. Admission Reason for Admission: Decompensation Of Cirrhosis Of Liver Discharge Discharge Diagnosis / Problem: Cirrhosis with recurremt Ascites,CKD.DM Discharge Goals Goal(s): Prevent Disease Progression Activity Recommendations Activity Limitations: per Instructions/Follow-up section Please take precaution to avoid fall.Ask for help when you need to ambulate . Instructions / Follow-Up Instructions / Follow-Up Please make an appointment with your PCP in 1 week.GI appointment as before Current Hospital Diet Patient's current hospital diet: Low Sodium Diet (2gm Na), Diabetes Type 2 Diet Discharge Diet Recommended Diet: Low Sodium Diet (2gm Na), Diabetes Type 2 Diet Pending Studies Studies pending at discharge: no Laboratory Results Hemoglobin A1c Test 04/14/17 05:25 Range/Units Estimated Average Glucose 120 mg/dl Hemoglobin A1c 5.8 H 4.5-5.6 % Medical Emergencies . Who to Call and When: Medical Emergencies: If at any time you feel your situation is an emergency, please call 911 immediately. . Non-Emergent Contact Non-Emergency issues call your: Primary Care Provider . Past History Medical & Surgical History: (1) Decompensation of cirrhosis of liver (2) History of bladder cancer (3) History of ankle fracture (4) Sinoatrial node dysfunction (5) Thrombocytopenia (6) Myelodysplastic syndrome (7) Paroxysmal atrial fibrillation (8) COPD (chronic obstructive pulmonary disease) (9) CKD (chronic kidney disease), stage IV (10) Sleep apnea, obstructive (11) DM (diabetes mellitus), type 2 with renal complications (12) Status post myomectomy (13) Status post cardiac pacemaker procedure . "Provider Documentation" section prepared by Swati Granado. . VTE Core Measure Inpt VTE Proph given/why not?: Shayla Roque, YANELI's
--- NOTE | 2017-04-23 07:53 | Discharge Summary ---
Discharge Summary Date of Service Apr 23, 2017. Discharge Summary Admission Date: Apr 13, 2017 at 17:36 Discharge Date: Apr 22, 2017 Discharge Disposition: Personal care Principal Diagnosis: Cirrhosis with recurrent Ascites,CKD,DM Secondary Diagnoses/Problems: Please see H&P and Hospital Progress note Consultations: GI Medication Reconciliation Changed Medications: Spironolactone (Spironolactone) 25 Mg Tab 50 MG PO QAM for 30 Days, #60 TAB (Changed from: 25 MG; 30) Continued Medications: Ferrous Sulfate (Iron) 325 Mg Tab 325 MG PO DAILY Folic Acid (Folic Acid) 1 Mg Tab 1 MG PO DAILY Furosemide (Lasix) 40 Mg Tab 40 MG PO BID17, TAB Insulin Aspart (Novolog) 100 Units/Ml Inj SQ ACHS SLIDING SCALE 1 UNIT FOR EVERY 20 MG/DL INCREASE IN GLUCOSE ABOVE 150 Insulin Glargine (Lantus Solostar) 100 Unit/Ml Inj 14 UNITS SQ HS Metoprolol Succ (Toprol Xl) (Toprol-Xl) 25 Mg Tabcr 12.5 MG PO DAILY for 30 Days, #15 TAB Nitroglycerin (Nitrostat) 0.4 Mg Tab 0.4 MG UT UD PRN for Chest Pain Ondansetron Hcl (Zofran) 4 Mg Tab 4 MG PO Q6H PRN for Nausea, TAB Potassium Chloride (Klor-Con M20) 20 Meq Tabcr 20 MEQ PO BID for 30 Days, #60 TAB Rifaximin (Xifaxan) 550 Mg Tab 550 MG PO BID for 30 Days, #60 TAB Vancomycin HCl (Vancomycin HCl) 125 Mg/2.5 Ml Susp 125 MG PO DIRECTED for 49 Days, #86 TAB week 1 to 2: vancomycin 125 mg QID x 14 days then: week 3: vancomycin 125 mg BID x 7 days then: week 4: vancomycin 125 mg daily x 7 days then: week 5: vancomycin 125 mg every other day x 7 days then: week 6 to 7: vancomycin 125 mg every three days x 14 days Admission Information HPI (per Admitting provider): This is 87 yo male with complex past medical hx of SHANE cirrhosis , recurrent C diff on PO vancomycin taper , Sick sinus syndrome s/p permanent pacemaker placement , Hx of HOCM s/p myomectomy , non ischemic cardiomyopathy , COPD , , CKD stage 3-4 baseline Cr 2.9 Chronic thrombocytopenia , 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 pt had frequent admission in past few months for decompensated Cirrhosis , worsening of ascites requiring paracentesis Last admission was form Mar 16 to Mar 21 for Hepatic encephalopathy pt presents to ED with complains of worsening of abdominal girth , SOB , worsening of lower ext edema had 5 Liter of paracentesis on last admission has been taking Lasix , Aldactone as instructed for the past few weeks noticed worsening of lower ext swelling , increased ascites to the point it is hard for him to Lay flat no fever or chills no diarrhea -having soft stool due to lactulose , no blood or dark tarry stool no complain of abdominal pain ,no nausea , vomiting appetite fair Past Medical/Surgical History Medical Problems: (1) Anemia Status: Chronic (2) CKD (chronic kidney disease), stage IV Status: Chronic (3) COPD (chronic obstructive pulmonary disease) Status: Chronic (4) DM (diabetes mellitus), type 2 with renal complications Status: Chronic (5) Dyslipidemia Status: Chronic (6) History of ankle fracture Status: Chronic (7) History of bladder cancer Status: Chronic (8) Hypertrophic cardiomyopathy Status: Chronic (9) Myelodysplastic syndrome Status: Chronic (10) Paroxysmal atrial fibrillation Status: Chronic (11) Sinoatrial node dysfunction Status: Chronic (12) Sleep apnea, obstructive Permanent Comment: CPAP Status: Chronic (13) Thrombocytopenia Status: Chronic Surgical Problems: (1) Status post cardiac pacemaker procedure Status: Chronic (2) Status post myomectomy Permanent Comment: for hypertrophic cardiomyopathy Status: Chronic Family History FHx: heart disease Social History Smoking Status: Former Smoker Drug Use: none Marital Status: Occupational Status: unemployed Immunizations History of Influenza Vaccine: Yes History of Tetanus Vaccine?: Yes History of Pneumococcal: Yes History of Hepatitis B Vaccine: Unknown Multi-Drug Resistant Organisms History of MDRO: No Allergies Coded Allergies: Propranolol (Verified Allergy, Unknown, 03/15/17) Codeine (Verified Adverse Reaction, Mild, NOTED "DOESNT TOLERATE WELL" , 03/15/17) Home Medications Scheduled Ferrous Sulfate (Iron), 325 MG PO DAILY Folic Acid (Folic Acid), 1 MG PO DAILY Furosemide (Lasix), 40 MG PO BID17 Insulin Aspart (Novolog), SQ ACHS Insulin Glargine (Lantus Solostar), 14 UNITS SQ HS Metoprolol Succ (Toprol Xl) (Toprol-Xl), 12.5 MG PO DAILY Potassium Chloride (Klor-Con M20), 20 MEQ PO BID Rifaximin (Xifaxan), 550 MG PO BID Spironolactone (Spironolactone), 25 MG PO QAM Vancomycin HCl (Vancomycin HCl), 125 MG PO DIRECTED Scheduled PRN Nitroglycerin (Nitrostat), 0.4 MG UT UD PRN for Chest Pain Ondansetron Hcl (Zofran), 4 MG PO Q6H PRN for Nausea Review of Systems Constitutional: + sweats, + weakness, + fatigue, + problem reported (lower ext swelling ) Respiratory: + shortness of breath, + dyspnea on exertion, + dyspnea at rest Cardiovascular: + edema Abdomen: + problem reported (increased abdominal girth ) Physical Ex - H&P Physical Exam Vital Signs Date Time Temp Pulse Resp B/P (MAP) Pulse Ox O2 Delivery O2 Flow Rate FiO2 04/13/17 18:58 36.4 83 18 108/68 (81) 95 04/13/17 18:20 100 Room Air 04/13/17 17:58 68 16 101/63 100 Room Air 04/13/17 16:44 36.0 99 16 119/80 98 Room Air General Appearance: WD/WN, no apparent distress Head: normocephalic, atraumatic Eyes: PERRL, EOMI Respiratory/Chest: + decreased breath sounds, + rales Cardiovascular: regular rate, rhythm Abdomen/GI: + distended, + pertinent finding (tense ascities , non tender ) Extremities/Musculoskelatal: + pedal edema (+ 2-3 pitting edema ) Neurologic/Psych: alert, oriented x 3 Skin: + pallor, + pertinent finding (multiple talangectesia in face and neck ) Diagnostics - H&P Diagnostics Laboratory Results Results Past 24 Hours Test 04/13/17 16:57 04/13/17 17:29 Range/Units White Blood Count 3.74 4.8-10.8 K/uL Red Blood Count 3.09 4.7-6.1 M/uL Hemoglobin 8.4 14.0-18.0 g/dL Hematocrit 27.2 42-52 % Mean Corpuscular Volume 88.0 80-100 fL Mean Corpuscular Hemoglobin 27.2 25-34 pg Mean Corpuscular Hemoglobin Concent 30.9 32-36 g/dl Platelet Count 62 130-400 K/uL Mean Platelet Volume 9.5 7.4-10.4 fL Neutrophils (%) (Auto) 76.1 % Lymphocytes (%) (Auto) 9.9 % Monocytes (%) (Auto) 11.0 % Eosinophils (%) (Auto) 2.4 % Basophils (%) (Auto) 0.3 % Neutrophils # (Auto) 2.85 1.4-6.5 K/uL Lymphocytes # (Auto) 0.37 1.2-3.4 K/uL Monocytes # (Auto) 0.41 0.11-0.59 K/uL Eosinophils # (Auto) 0.09 0-0.5 K/uL Basophils # (Auto) 0.01 0-0.2 K/uL RDW Standard Deviation 57.1 36.4-46.3 fL RDW Coefficient of Variation 17.7 11.5-14.5 % Immature Granulocyte % (Auto) 0.3 % Immature Granulocyte # (Auto) 0.01 0.00-0.02 K/uL Ovalocytes 1+ Schistocytes 1+ Sodium Level 142 136-145 mmol/L Potassium Level 4.8 3.5-5.1 mmol/L Chloride Level 108 98-107 mmol/L Carbon Dioxide Level 25 21-32 mmol/L Anion Gap 8.0 3-11 mmol/L Blood Urea Nitrogen 51 7-18 mg/dl Creatinine 3.03 0.60-1.40 mg/dl Est Creatinine Clear Calc Drug Dose 21.7 ml/min Estimated GFR () 20.4 Estimated GFR (Non- 17.6 BUN/Creatinine Ratio 16.9 10-20 Random Glucose 117 70-99 mg/dl Calcium Level 8.0 8.5-10.1 mg/dl Magnesium Level 2.1 1.8-2.4 mg/dl Total Bilirubin 0.4 0.2-1 mg/dl Direct Bilirubin 0.1 0-0.2 mg/dl Aspartate Amino Transf (AST/SGOT) 47 15-37 U/L Alanine Aminotransferase (ALT/SGPT) 36 12-78 U/L Alkaline Phosphatase 128 45-117 U/L Ammonia 43.7 11-32 umol/L Pro-B-Type Natriuretic Peptide 5442 0-1800 pg/ml Total Protein 6.3 6.4-8.2 gm/dl Albumin 2.5 3.4-5.0 gm/dl Prothrombin Time 13.2 9.0-12.0 SECONDS Prothromb Time International Ratio 1.2 0.9-1.1 Activated Partial Thromboplast Time 30.8 21.0-31.0 SECONDS Partial Thromboplastin Ratio 1.2 Diagnostic Radiology USG OF ABDOMEN : IMPRESSION: 1. Moderate to large volume of ascites. The volume of ascites is less than was present on March 16, 2017 2. Cirrhotic morphology of the liver CHEST XRAY : IMPRESSION: 1. Cardiomegaly and radiographic evidence of mild pulmonary vascular congestion. 2. No evidence of focal pulmonary consolidation Impression - H&P Impression Assessment and Plan RECURRENT ASCITES /SHANE CIRRHOSIS -recurrent ascites in setting of SHANE Cirrhosis -Diagnosed with Liver biopsy in 2003 for elevated LFT's -with evidence of significant portal and periportal fibrosis -follows with [facility] -required paracentesis multiple times in past USG of abdomen shows moderate to large paracentesis -no clinical evidence of SBP -no fever or chills, no abdominal tenderness -pt is continued with Rifaximin 550 BID -on Lasix and Aldactone -GI eval requested , will need paracentesis and possible IV Albumin pre and post procedure for large amount of ascitic fluid drainage -will defer to GI -no evidence of hepatic encephalopathy , no confusion , lethargy noted , conversing appropriately CKD STAGE 4/5 : Cr is approx baseline pt will need continued diuresis for ascites monitor PRP closely TYPE 2 DM : insulin dependent cont Basal Lantus and insulin SSI Hb A1C in AM labs SLEEP APNEA; ordered for CPAP at night RECURRENT C DIFF : Cont of PO Vancomycin taper HX OF MYELODYSPLASTIC SYNDROME : not on any treatment pancytopenia due to combination of MDS and advanced Cirrhosis of liver HX OF RECURRENT BLADDER CA : -S/P resection /fulguration of tumor on 09/2012 -shows high grade pathology , s/p recurrence on 01/2016 -palliative approach with limited TURB follows with Urology Dr Dangelo CODE STATUS ; s/w pt -aware of the poor prognosis of his health and multiple co morbidities does not want any heroic measures for resuscitation in setting of cardio pulmonary arrest DNR/DNI DVT PROPHYLAXIS : moderate to high risk pharmacological prophylaxis avoided due to anemia /thrombocytopenia SCD and teds DISPOSITION : Lives at Personal assisted -[facility] PT/OT eval prior to discharge home Social service consulted for discharge planning Level of Care Med/Surg Advanced Directives Existing Living Will: Yes Existing Power of Oil Rag Washer: Yes Resuscitation Status DO NOT RESUSCITATE VTE Prophylaxis VTE Risk Assessment Done? Y/N: Yes Risk Level: Moderate Given or contraindicated: T.E.D. Stockings, SCD's Physical Exam (per Admitting): General Appearance: WD/WN, no apparent distress Head: normocephalic, atraumatic Eyes: PERRL, EOMI Respiratory/Chest: + decreased breath sounds, + rales Cardiovascular: regular rate, rhythm Abdomen/GI: + distended, + pertinent finding (tense ascities , non tender ) Extremities/Musculoskelatal: + pedal edema (+ 2-3 pitting edema ) Neurologic/Psych: alert, oriented x 3 Skin: + pallor, + pertinent finding (multiple talangectesia in face and neck ) Hospital Course Tense Ascites Requires another paracentesis Received 1 unit of Platelet yesterday and will get another unit this AM Platelet wet up to 58 Albumin before and after paracentesis S/P Paracentesis A lot better following the procedure Denies any more symptoms CIRRHOSIS WITH RECURRENT ASCITES Cirrhosis attributed to passive liver congestion from CHF and/or SHANE. Worsening ascites. GI consulted-appreciate input Paracentesis not recommended at that time due to thrombocytopenia but may eventually need it Has been on IV furosemide and albumin. Continue spironolactone with caution in light of CKD. Continue rifaximin. 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 Creatinine today = 2.69-remains stable for the last few days. Continue IV furosemide and spironolactone with caution. Watch fluid status. Avoid potential nephrotoxins. Kidney function remains stable -consult Nephrology if any worse HISTORY SINOATRIAL DISEASE / PAROXYSMAL ATRIAL FIB S/P pacemaker. Continue metoprolol. No anticoagulants due to cirrhosis and thrombocytopenia. COPD / SLEEP APNEA Respiratory status stable. Continue CPAP. No acute issue DM TYPE II Well-controlled. Hgb A1C 6.2 02/07/17. Tight control not indicated given advanced age and comorbidities. FBS this morning = 85. Continue NovoLog with liberal blood sugar goals. MYELODYSPLASTIC SYNDROME Hgb today = 7.7 remains stable foe the last few days. Anemia probably due to combination of MDS + CKD. No transfusion at this time per current guidelines. Transfuse if Hb drops below 7.0 Platelet 45 on 04/18 S/P 2 units of Platelet transfusion Platelet went up to 58 0n 04/21 RECURRENT C DIFF (present on admission) Continue vancomycin. VTE PROPHYLAXIS Chemoprophylaxis contraindicated in light of thrombocytopenia. SCD's. DISPOSITION To be determined. [facility]able [facility]. Family Medicine follow-up with Dr. Garza. Nephrology follow-up with Dr. Chong. Likely to be transferred to [facility] today Total time spent on discharge = 40 minutes This includes examination of the patient, discharge planning, medication reconciliation, and communication with other providers. Discharge Instructions Date of Service Apr 22, 2017. Admission Reason for Admission: Decompensation Of Cirrhosis Of Liver Discharge Discharge Diagnosis / Problem: Cirrhosis with recurrent Ascites,CKD,DM Discharge Goals Goal(s): Prevent Disease Progression Activity Recommendations Activity Level: Assistance Required Therapies: Physical Therapy, Occupational Therapy . Additional Information Patient informed of condition: Yes Advance Directives: No DNR: Yes Level of Care: Skilled Communicable Disease: No Prognosis: Stable Oxygen at (LPM): 2 liters via NC as needed Domingo Catheter: No Instructions / Follow-Up Instructions / Follow-Up Please make an appointment with your PCP in 1 week,GI appointment as needed Current Hospital Diet Patient's current hospital diet: Low Sodium Diet (2gm Na), Diabetes Type 2 Diet Discharge Diet Recommended Diet: Low Sodium Diet (2gm Na), Diabetes Type 2 Diet Fluid Restriction: 1500 ml (6 cups) Pending Studies Studies pending at discharge: no Laboratory Results Hemoglobin A1c Test 04/14/17 05:25 Range/Units Estimated Average Glucose 120 mg/dl Hemoglobin A1c 5.8 H 4.5-5.6 % Medical Emergencies . Who to Call and When: Medical Emergencies: If at any time you feel your situation is an emergency, please call 911 immediately. . Non-Emergent Contact Non-Emergency issues call your: Primary Care Provider . 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 "Provider Documentation" section prepared by Swati Granado. . Core Measure Problem Core Measures: None <Electronically signed by Swati Granado M.D.> Signed: 04/22/17 [id number] Additional Copies To Anastacio Garza M.D.
== END 2017-04-22 19:38 | disposition home or self-care (01) | DRG 433 ==
LOC: EDBD 16:35 → C.EDB 16:36 → C.MED 17:36 → UNDOADMIN 17:36 → ENRESERV 17:53 → EDBEDREQSVC 17:58 → EDBEDREQ 18:15 → C.MS2W 04-16 20:00
PROVIDERS: ADMIT Hospitalist; ATTEND Internal Medicine
PROC: 0W9G3ZZ Drainage of Peritoneal Cavity, Percutaneous Approach (ICD-10-PCS; principal; 2017-04-20)
DX: K74.60 Unspecified cirrhosis of liver (principal); R18.8 Other ascites; I85.10 Secondary esophageal varices without bleeding; N18.4 Chronic kidney disease, stage 4 (severe); A04.71 Enterocolitis due to Clostridium difficile, recurrent; I42.9 Cardiomyopathy, unspecified; K76.0 Fatty (change of) liver, not elsewhere classified; E11.69 Type 2 diabetes mellitus with other specified complication; E11.22 Type 2 diabetes mellitus with diabetic chronic kidney disease; J44.9 Chronic obstructive pulmonary disease, unspecified; G47.33 Obstructive sleep apnea (adult) (pediatric); D46.9 Myelodysplastic syndrome, unspecified; D64.9 Anemia, unspecified; D69.6 Thrombocytopenia, unspecified; I50.9 Heart failure, unspecified; Z66 Do not resuscitate; Z95.0 Presence of cardiac pacemaker; Z85.51 Personal history of malignant neoplasm of bladder; Z87.891 Personal history of nicotine dependence; Z79.2 Long term (current) use of antibiotics; Z79.4 Long term (current) use of insulin; Z79.899 Other long term (current) drug therapy; Z82.49 Family history of ischemic heart disease and other diseases of the circulatory system

== ENCOUNTER → 2017-04-27 | Outpatient (CLI) | payer OTHER ==
[~2017-04-27] MED LIST changes: -FERR1TAB23 OR; +FERR1TAB23 PO; +FRS/40 PO; -LSX20 PO
[2017-04-27 15:49] LABS: BLOOD UREA NITROGEN 56 mg/dl (7-18); BUN/CREATININE RATIO 16.8 (10-20); CALCIUM 8.1 mg/dl (8.5-10.1); CARBON DIOXIDE 26 mmol/L (21-32); CHLORIDE 107 mmol/L (98-107); CREATININE 3.31 mg/dl (0.60-1.40); GLUCOSE 129 mg/dl (70-99); POTASSIUM 4.3 mmol/L (3.5-5.1); SODIUM 140 mmol/L (136-145)
== END | disposition home or self-care (01) ==
LOC: C.LABSPEC 15:30
PROVIDERS: ATTEND Family Medicine
DX: K74.60 Unspecified cirrhosis of liver (principal)

== ENCOUNTER 2017-05-14 08:04 | Inpatient (IN) | payer OTHER ==
[~2017-05-14] VITALS: Ht 182.9 cm; Wt 101.6 kg
[2017-05-14] VITALS (10 sets, daily range): BP systolic 89–134; BP diastolic 46–72; PULSE 63–88; TEMP 36.2–36.6; O2SAT 94–100; Ht 182.9 cm; Wt 101.6 kg
--- NOTE | 2017-05-14 08:22 | EMERGENCY ROOM VISIT NOTE ---
History Report prepared by Li: Niki Ramey Under the Supervision of: Dr. Khoa Garcia M.D. First contact with patient: 08:09 Chief Complaint: SHORTNESS OF BREATH Stated Complaint: ABDOMINAL PAIN History of Present Illness The patient is a 87 year old male who presents to the Emergency Room with complaints of shortness of breath beginning this morning. The patient also reports having a cough, but denies having abdominal pain. Per nursing staff, the patient has a history of ascites and last had his abdomen tapped 2 weeks ago. Per nursing staff, the patient has a history of cirrhosis of the liver. History is limited secondary to his mental state and chronic condition. He is a poor historian. Source of History: patient, nursing staff Onset: this morning Position: other (global) Quality: other (shortness of breath ) Associated Symptoms: + cough, No abdominal pain Review of Systems Limited secondary to his mental state and chronic condition. 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), type 2 with renal complications (7) Dyslipidemia (8) History of ankle fracture (9) History of bladder cancer (10) Hypertrophic cardiomyopathy (11) Myelodysplastic syndrome (12) Paroxysmal atrial fibrillation (13) Sinoatrial node dysfunction (14) Sleep apnea, obstructive (15) Thrombocytopenia Surgical Problems: (1) Status post cardiac pacemaker procedure (2) Status post myomectomy Family History FHx: heart disease Social History Smoking Status: Former Smoker Alcohol Use: none Drug Use: none Marital Status: Housing Status: assisted living Occupation Status: unemployed Current/Historical Medications Scheduled Ferrous Sulfate (Iron), 325 MG PO DAILY Folic Acid (Folic Acid), 1 MG PO DAILY Furosemide (Lasix), 40 MG PO BID17 Insulin Aspart (Novolog), SQ ACHS Insulin Glargine (Lantus Solostar), 14 UNITS SQ HS Metoprolol Succ (Toprol Xl) (Toprol-Xl), 12.5 MG PO DAILY Midodrine (Midodrine HCl), 2.5 MG PO BID Rifaximin (Xifaxan), 550 MG PO BID Spironolactone (Aldactone), 50 MG PO QAM Scheduled PRN Nitroglycerin (Nitrostat), 0.4 MG UT UD PRN for Chest Pain Ondansetron Hcl (Zofran), 4 MG PO Q6H PRN for Nausea Allergies Coded Allergies: Propranolol (Verified Allergy, Unknown, 05/14/17) Codeine (Verified Adverse Reaction, Mild, NOTED "DOESNT TOLERATE WELL" , 05/14/17) Physical Exam Vital Signs Date Time Temp Pulse Resp B/P (MAP) Pulse Ox O2 Delivery O2 Flow Rate FiO2 05/14/17 14:05 68 20 93/53 93 Room Air 05/14/17 13:59 70 18 77/46 94 Room Air 05/14/17 13:29 72 16 79/47 95 Room Air 78/45 05/14/17 12:41 80 05/14/17 12:35 69 16 98/57 98 05/14/17 12:09 81 18 96/56 97 Nasal Cannula 3.0 05/14/17 11:53 70 18 93/68 99 Nasal Cannula 3.0 05/14/17 11:35 71 16 81/53 100 Nasal Cannula 05/14/17 11:30 76 116/52 100 Nasal Cannula 3.0 05/14/17 09:40 75 16 101/62 100 Nasal Cannula 3.0 05/14/17 08:43 73 17 107/60 100 Nasal Cannula 3.0 05/14/17 08:17 72 05/14/17 08:13 100 Nasal Cannula 3.0 05/14/17 08:08 82 18 114/81 100 Nasal Cannula 3.0 05/14/17 08:08 Nasal Cannula 3.0 100 05/14/17 08:08 94 Nasal Cannula 3.0 Physical Exam GENERAL: Patient is in no acute distress. HEENT: No acute trauma, normocephalic atraumatic, mucous membranes moist, no nasal congestion, no scleral icterus. NECK: No stridor, no adenopathy, no meningismus, trachea is midline. LUNGS: Clear to auscultation bilaterally, no wheeze, no rhonchi, breath sounds equal. HEART: 2/6 systolic murmur. Irregular rhythm with a normal rate. ABDOMEN: Distension with a reducible umbilical hernia. Non-tender abdomen. No peritonitis. EXTREMITIES: Moderate bilateral pedal edema without cellulitis , full range of motion of all the joints without pain or difficulty, no signs for acute trauma. NEUROLOGIC: No acute motor or sensory deficits, no focal weakness. SKIN: No rash, no jaundice, no diaphoresis. Medical Decision & Procedures ER Provider Diagnostic Interpretation: Radiology results as stated below per my review and radiologist interpretation: ULTRASOUND VENOUS DOPPLER LWR EXT BILA CLINICAL HISTORY: Bilateral leg swelling COMPARISON STUDY: 10/17/2016 FINDINGS: The study was somewhat limited from a technical standpoint due to excessive calf edema. No thrombus is visualized within the common femoral through popliteal veins bilaterally. The calf veins were nonvisualized. IMPRESSION: 1. Nonvisualization of the calf veins. No DVT identified from the common femoral through the popliteal veins bilaterally. Electronically signed by: Gurinder Medina M.D. 05/14/2017 9:32 AM Dictated Date/Time: 05/14/2017 9:30 AM LIMITED ABDOMINAL ULTRASOUND FOR ASCITES EVALUATION CLINICAL HISTORY: Abdominal distention COMPARISON STUDY: 04/20/2017 FINDINGS: There is a moderate to large volume of ascites visualized in all 4 quadrants. The volume of ascites is felt to be less than on the preparacentesis study dated 04/20/2017 IMPRESSION: Moderate to large volume of ascites, diminished when compared with the preparacentesis study dated 04/20/2017. Electronically signed by: Gurinder Medina M.D. 05/14/2017 9:34 AM Dictated Date/Time: 05/14/2017 9:32 AM CHEST ONE VIEW PORTABLE CLINICAL HISTORY: Respiratory distress COMPARISON STUDY: 04/13/2017 FINDINGS: The heart is mildly enlarged. There is aortic tortuosity/ectasia. There are postsurgical changes of midline sternotomy. There is a left subclavian dual-chamber central venous pacemaker present. There is a small subpulmonic right pleural effusion. There is minor basilar atelectasis. There is no overt failure.[ IMPRESSION: 1. Interval resolution of the previously described pulmonary vascular congestion 2. Small subchronic right pleural effusion 3. No evidence of focal pulmonary consolidation Electronically signed by: Gurinder Medina M.D. 05/14/2017 8:37 AM Dictated Date/Time: 05/14/2017 8:36 AM PARACENTESIS UNDER ULTRASOUND GUIDANCE CLINICAL HISTORY: ascites COMPARISON STUDY: No previous studies for comparison. FINDINGS: The risks, benefits, and alternatives to the procedure were discussed with the patient. Written informed consent was obtained. Following real-time ultrasound localization, the skin was prepped and draped. Following local anesthesia with Xylocaine, the sheath paracentesis needle was inserted and approximately 11.5 liters of latte colored fluid was removed by vacuum suction. The patient tolerated the procedure well and left the department in satisfactory condition. IMPRESSION: Successful ultrasound-guided paracentesis with removal of approximately 11.5 liters of ascitic fluid. Electronically signed by: Gurinder Medina M.D. 05/14/2017 11:21 AM Dictated Date/Time: 05/14/2017 11:20 AM Laboratory Results 05/14/17 08:15 Red Blood Count 3.11, Mean Corpuscular Volume 89.1, Mean Corpuscular Hemoglobin 28.6, Mean Corpuscular Hemoglobin Concent 32.1, Mean Platelet Volume 9.0, Neutrophils (%) (Auto) 74.4, Lymphocytes (%) (Auto) 11.5, Monocytes (%) (Auto) 10.1, Eosinophils (%) (Auto) 3.3, Basophils (%) (Auto) 0.5, Neutrophils # (Auto ) 3.16, Lymphocytes # (Auto) 0.49, Monocytes # (Auto) 0.43, Eosinophils # (Auto ) 0.14, Basophils # (Auto) 0.02 05/14/17 08:15 Test 05/14/17 08:15 05/14/17 08:25 White Blood Count 4.25 K/uL (4.8-10.8) Red Blood Count 3.11 M/uL (4.7-6.1) Hemoglobin 8.9 g/dL (14.0-18.0) Hematocrit 27.7 % (42-52) Mean Corpuscular Volume 89.1 fL (80-100) Mean Corpuscular Hemoglobin 28.6 pg (25-34) Mean Corpuscular Hemoglobin Concent 32.1 g/dl (32-36) Platelet Count 66 K/uL (130-400) Mean Platelet Volume 9.0 fL (7.4-10.4) Neutrophils (%) (Auto) 74.4 % Lymphocytes (%) (Auto) 11.5 % Monocytes (%) (Auto) 10.1 % Eosinophils (%) (Auto) 3.3 % Basophils (%) (Auto) 0.5 % Neutrophils # (Auto) 3.16 K/uL (1.4-6.5) Lymphocytes # (Auto) 0.49 K/uL (1.2-3.4) Monocytes # (Auto) 0.43 K/uL (0.11-0.59) Eosinophils # (Auto) 0.14 K/uL (0-0.5) Basophils # (Auto) 0.02 K/uL (0-0.2) RDW Standard Deviation 56.5 fL (36.4-46.3) RDW Coefficient of Variation 17.1 % (11.5-14.5) Immature Granulocyte % (Auto) 0.2 % Immature Granulocyte # (Auto) 0.01 K/uL (0.00-0.02) Platelet Estimate DECREASED Anisocytosis PRESENT Prothrombin Time 12.5 SECONDS (9.0-12.0) Prothromb Time International Ratio 1.2 (0.9-1.1) Activated Partial Thromboplast Time 29.6 SECONDS (21.0-31.0) Partial Thromboplastin Ratio 1.1 Anion Gap 8.0 mmol/L (3-11) Est Creatinine Clear Calc Drug Dose 22.4 ml/min Estimated GFR () 20.4 Estimated GFR (Non- 17.6 BUN/Creatinine Ratio 19.2 (10-20) Calcium Level 8.1 mg/dl (8.5-10.1) Magnesium Level 2.4 mg/dl (1.8-2.4) Total Bilirubin 0.6 mg/dl (0.2-1) Direct Bilirubin 0.2 mg/dl (0-0.2) Aspartate Amino Transf (AST/SGOT) 37 U/L (15-37) Alanine Aminotransferase (ALT/SGPT) 29 U/L (12-78) Alkaline Phosphatase 116 U/L (45-117) Troponin I 0.018 ng/ml (0-0.045) Pro-B-Type Natriuretic Peptide 5295 pg/ml (0-1800) Total Protein 6.1 gm/dl (6.4-8.2) Albumin 2.5 gm/dl (3.4-5.0) Lipase 115 U/L (73-393) Ammonia 39.1 umol/L (11-32) Laboratory results reviewed by me. Medications Administered Medications (Trade) Dose Ordered Sig/Gin Route Start Time Stop Time Status Last Admin Dose Admin Albumin Human (Albumin 25%) 25 gm NOW STAT IV 05/14/17 11:01 05/14/17 11:05 DC 05/14/17 11:31 25 GM Albumin Human (Albumin 25%) 50 gm NOW STAT IV 05/14/17 11:33 05/14/17 11:35 DC 05/14/17 12:14 50 GM Sodium Chloride 500 ml @ 999 mls/hr Q31M STAT IV 05/14/17 13:36 05/14/17 14:06 DC 05/14/17 13:36 999 MLS/HR ECG Indication: SOB/dyspnea Rate (beats per minute): 79 Rhythm: atrial fibrillation (with occassional ventricular pacing) Findings: LBBB, no acute ischemic change Change: no significant change (from 03/07) ED Course 0810: The patient was evaluated in room A12B. A complete history and physical exam was performed. 0944: I updated the patient and his family. 0950: I spoke with Dr. Medina from Radiology who will do the paracentesis on the patient. 1101: Ordered Albumin Human 25 gm IV. 1107: 11.5 L of fluid was pulled from the paracentesis. 1133: Ordered Albumin Human 50 gm IV. 1135: I spoke with Asim from Pharmacy and we discussed Albumin dosing. 1336: Ordered Sodium, Chloride 500 ml @ 999 mls/hr IV. 1346: Upon reexamination the patient is resting. I discussed results and treatment plan with the patient. He verbalizes agreement and understanding. [facility] We discussed the patient's results and findings. The patient will be evaluated by Dr. Saleh for further management. Medical Decision The patient is a 87 year old male who presents to the ED with complaints of shortness of breath. Differential diagnoses considered include pleural effusion , CHF, fluid overload, ascites, anemia, electrolyte imbalance, renal failure, liver failure, pneumonia, myocardial infarction or cardiac ischemia. There is a low white blood cell count and platelet count, this is chronic for the patient. The patient is anemic but his hemoglobin is actually improved compared to recent testing. Renal panel testing shows some mild dehydration coupled with some chronic renal failure. No significant electrolyte abnormality that requires correction. There is no hepatitis. No concerning coagulopathy. Ammonia level was mildly elevated which is baseline for the patient. EKG shows A. fib without any acute ischemia. Cardiac enzyme testing times one is not consistent with acute cardiac injury. Chest film does not show pneumonia or CHF. BNP is somewhat elevated consistent with fluid overload. Lower extremity ultrasound does not show evidence for DVT. Abdominal ultrasound shows a fairly large amount of ascites. I talked to the patient and his family. They did ask to have the ascites drained. The patient went to radiology and around 11 L were drained. The patient was then returned to the emergency department. The patient received 75 g of IV albumin. Despite this medication, the patient did develop a lower blood pressure. He required a 500 mL saline bolus. This improved the blood pressure. The patient has become hypotensive after his paracentesis. I suspect he is intravascularly depleted. He may require further IV fluids, he requires close monitoring and I think a hospital stay is warranted. He is not safe for discharge home with the lower blood pressure. I spoke to the patient and his family. The on-call hospitalist was consulted. Case management has been involved. Medication Reconcilliation Current Medication List: was personally reviewed by me Blood Pressure Screening Patient's blood pressure: Low blood pressure Consults Time Called: 0948 Consulting Physician: Dr. Medina-Radiology Returned Call: [address] Medina from Radiology who will do the paracentesis on the patient. Additional Consults: Time Called: 1320 Consulted Physician: Dr. De La Cruz Returned Call: 1346 Additional Comments: Discussed the patient's case. The patient will be evaluated for further management. Impression Primary Impression: Shortness of breath Additional Impressions: Ascites Hypotension Critical Care I have personally spent greater than 30 minutes of critical care time in the direct management of this patient. This includes bedside care, interpretation of diagnostic studies and testing, discussion with consultants, the patient, and family members, and other required patient management activities. This 30 minutes is in excess of all separately billable procedures. Scribe Attestation The scribe's documentation has been prepared under my direction and personally reviewed by me in its entirety. I confirm that the note above accurately reflects all work, treatment, procedures, and medical decision making performed by me. Departure Information Dispostion Being Evaluated By Hospitalist Anastacio Stout M.D. (PCP) Patient Instructions My [facility] Problem Qualifiers
[2017-05-14 08:31] LABS: HEMATOCRIT 27.7 % (42-52); HEMOGLOBIN 8.9 g/dL (14.0-18.0); MEAN CELL VOLUME 89.1 fL (80-100); MEAN CORPUSCULAR HEMOGLOBIN 28.6 pg (25-34); MEAN CORPUSCULAR HGB CONC 32.1 g/dl (32-36); RED CELL DISTRIBUTION WIDTH CV 17.1 % (11.5-14.5); RED CELL DISTRIBUTION WIDTH SD 56.5 fL (36.4-46.3); WHITE BLOOD COUNT 4.25 K/uL (4.8-10.8)
[2017-05-14] MEDS ORDERED: METO25TA3 PO (08:31)
[2017-05-14] MEDS ORDERED: PRMT25 PO (08:31)
[2017-05-14] MEDS ORDERED: RIFA550T2 PO (08:31)
[2017-05-14] MEDS ORDERED: SPIR25TA PO (08:31)
--- NOTE | 2017-05-14 08:38 | DIAGNOSTIC IMAGING REPORT ---
CHEST ONE VIEW PORTABLE CLINICAL HISTORY: Respiratory distress COMPARISON STUDY: 04/13/2017 FINDINGS: The heart is mildly enlarged. There is aortic tortuosity/ectasia. There are postsurgical changes of midline sternotomy. There is a left subclavian dual-chamber central venous pacemaker present. There is a small subpulmonic right pleural effusion. There is minor basilar atelectasis. There is no overt failure.[ IMPRESSION: 1. Interval resolution of the previously described pulmonary vascular congestion 2. Small subchronic right pleural effusion 3. No evidence of focal pulmonary consolidation Electronically signed by: Gurinder Medina M.D. 05/14/2017 8:37 AM Dictated Date/Time: 05/14/2017 8:36 AM
[2017-05-14 08:40] LABS: INR 1.2 (0.9-1.1); PTT PATIENT 29.6 SECONDS (21.0-31.0)
[2017-05-14 08:42] LABS: ALBUMIN 2.5 gm/dl (3.4-5.0); CALCIUM 8.1 mg/dl (8.5-10.1); CREATININE 3.03 mg/dl (0.60-1.40)
[2017-05-14 08:47] LABS: TOTAL PROTEIN 6.1 gm/dl (6.4-8.2)
[2017-05-14 08:48] LABS: BASO % 0.5 %; BASO ABS # 0.02 K/uL (0-0.2); EOS % 3.3 %; EOS ABS # 0.14 K/uL (0-0.5); IG# 0.01 K/uL (0.00-0.02); LYMPH % 11.5 %; LYMPH ABS # 0.49 K/uL (1.2-3.4); MONO % 10.1 %; MONO ABS # 0.43 K/uL (0.11-0.59); NEUT % 74.4 %; NEUT ABS # 3.16 K/uL (1.4-6.5); PLATELET COUNT 66 K/uL (130-400)
--- NOTE | 2017-05-14 09:33 | DIAGNOSTIC IMAGING REPORT ---
ULTRASOUND VENOUS DOPPLER LWR EXT BILA CLINICAL HISTORY: Bilateral leg swelling COMPARISON STUDY: 10/17/2016 FINDINGS: The study was somewhat limited from a technical standpoint due to excessive calf edema. No thrombus is visualized within the common femoral through popliteal veins bilaterally. The calf veins were nonvisualized. IMPRESSION: 1. Nonvisualization of the calf veins. No DVT identified from the common femoral through the popliteal veins bilaterally. Electronically signed by: Gurinder Medina M.D. 05/14/2017 9:32 AM Dictated Date/Time: 05/14/2017 9:30 AM
--- NOTE | 2017-05-14 09:36 | DIAGNOSTIC IMAGING REPORT ---
LIMITED ABDOMINAL ULTRASOUND FOR ASCITES EVALUATION CLINICAL HISTORY: Abdominal distention COMPARISON STUDY: 04/20/2017 FINDINGS: There is a moderate to large volume of ascites visualized in all 4 quadrants. The volume of ascites is felt to be less than on the preparacentesis study dated 04/20/2017 IMPRESSION: Moderate to large volume of ascites, diminished when compared with the preparacentesis study dated 04/20/2017. Electronically signed by: Gurinder Medina M.D. 05/14/2017 9:34 AM Dictated Date/Time: 05/14/2017 9:32 AM
[2017-05-14] MEDS ORDERED: ALBUMIN HUMAN 25% 12.5 GM/50 ML VIAL IV STA (11:01)
--- NOTE | 2017-05-14 11:22 | DIAGNOSTIC IMAGING REPORT ---
PARACENTESIS UNDER ULTRASOUND GUIDANCE CLINICAL HISTORY: ascites COMPARISON STUDY: No previous studies for comparison. FINDINGS: The risks, benefits, and alternatives to the procedure were discussed with the patient. Written informed consent was obtained. Following real-time ultrasound localization, the skin was prepped and draped. Following local anesthesia with Xylocaine, the sheath paracentesis needle was inserted and approximately 11.5 liters of latte colored fluid was removed by vacuum suction. The patient tolerated the procedure well and left the department in satisfactory condition. IMPRESSION: Successful ultrasound-guided paracentesis with removal of approximately 11.5 liters of ascitic fluid. Electronically signed by: Gurinder Medina M.D. 05/14/2017 11:21 AM Dictated Date/Time: 05/14/2017 11:20 AM
[2017-05-14] MEDS: ALBUMIN HUMAN 25% 12.5 GM/50 ML VIAL IV STA ×2 (12:13→12:14)
[2017-05-14] MEDS ORDERED: SODIUM CHLORIDE 0.9% 500ML 500 ML IV STA (13:36)
--- NOTE | 2017-05-14 13:58 | History and Physical ---
History & Physical Date & Time of Service: May 14, 2017 at 13:57 Chief Complaint: Abdominal Pain Primary Care Physician: Anastacio Garza M.D. History of Present Illness Source: patient, family Patient is an 87 yr male with PMH of SHANE cirrhosis and recurrent ascites, recurrent C diff, Sick sinus syndrome s/p permanent pacemaker placement, H/O HOCM s/p myomectomy, Non ischemic cardiomyopathy, COPD, CKD stage 4-5, Chronic thrombocytopenia, 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, P.afib, Sleep Apnea, DM II and other comorbidities presents with history of worsening abdominal distention and SOB on exertion since 3-4 days duration. Patient had recurrent paracentesis and multiple admissions in the past. Abdominal ultrasound showed moderate to large volume of ascites and he got ultrasound-guided paracentesis with removal of approximately 11.5 liters of ascitic fluid while in ED. After the paracentesis patient was hypotensive and was given IV fluids and albumin but patient's blood pressure has not improved. Patient denies any history of chest pain, dizziness, cough, fever, chills, headache, weakness, nausea, vomiting, abdominal pain, diarrhea, change in appetite, dysuria. Past Medical/Surgical History Medical Problems: (1) Anemia Status: Chronic (2) Ascites Status: Chronic (3) CKD (chronic kidney disease), stage IV Status: Chronic (4) COPD (chronic obstructive pulmonary disease) Status: Chronic (5) DM (diabetes mellitus), type 2 with renal complications Status: Chronic (6) Dyslipidemia Status: Chronic (7) History of ankle fracture Status: Chronic (8) History of bladder cancer Status: Chronic (9) Hypertrophic cardiomyopathy Status: Chronic (10) Myelodysplastic syndrome Status: Chronic (11) Paroxysmal atrial fibrillation Status: Chronic (12) Sinoatrial node dysfunction Status: Chronic (13) Sleep apnea, obstructive Permanent Comment: CPAP Status: Chronic (14) Thrombocytopenia Status: Chronic Surgical Problems: (1) Status post cardiac pacemaker procedure Status: Chronic (2) Status post myomectomy Permanent Comment: for hypertrophic cardiomyopathy Status: Chronic Family History FHx: heart disease Social History Smoking Status: Former Smoker Alcohol Use: none Drug Use: none Marital Status: Occupational Status: unemployed Immunizations History of Influenza Vaccine: Yes History of Tetanus Vaccine?: Yes History of Pneumococcal: Yes History of Hepatitis B Vaccine: Unknown Multi-Drug Resistant Organisms History of MDRO: No Allergies Coded Allergies: Propranolol (Verified Allergy, Unknown, 05/14/17) Codeine (Verified Adverse Reaction, Mild, NOTED "DOESNT TOLERATE WELL" , 05/14/17) Home Medications Scheduled Ferrous Sulfate (Iron), 325 MG PO DAILY Folic Acid (Folic Acid), 1 MG PO DAILY Furosemide (Lasix), 40 MG PO BID17 Insulin Aspart (Novolog), SQ ACHS Insulin Glargine (Lantus Solostar), 14 UNITS SQ HS Metoprolol Succ (Toprol Xl) (Toprol-Xl), 12.5 MG PO DAILY Midodrine (Midodrine HCl), 2.5 MG PO BID Rifaximin (Xifaxan), 550 MG PO BID Spironolactone (Aldactone), 50 MG PO QAM Scheduled PRN Nitroglycerin (Nitrostat), 0.4 MG UT UD PRN for Chest Pain Ondansetron Hcl (Zofran), 4 MG PO Q6H PRN for Nausea Review of Systems See HPI for pertinent positives & negatives. A total of 10 systems reviewed and were otherwise negative. Physical Exam Vital Signs Date Time Temp Pulse Resp B/P (MAP) Pulse Ox O2 Delivery O2 Flow Rate FiO2 05/14/17 13:29 72 16 79/47 95 Room Air 78/45 05/14/17 12:41 80 05/14/17 12:35 69 16 98/57 98 05/14/17 12:09 81 18 96/56 97 Nasal Cannula 3.0 05/14/17 11:53 70 18 93/68 99 Nasal Cannula 3.0 05/14/17 11:35 71 16 81/53 100 Nasal Cannula 05/14/17 11:30 76 116/52 100 Nasal Cannula 3.0 05/14/17 09:40 75 16 101/62 100 Nasal Cannula 3.0 05/14/17 08:43 73 17 107/60 100 Nasal Cannula 3.0 05/14/17 08:17 72 05/14/17 08:13 100 Nasal Cannula 3.0 05/14/17 08:08 82 18 114/81 100 Nasal Cannula 3.0 05/14/17 08:08 Nasal Cannula 3.0 100 05/14/17 08:08 94 Nasal Cannula 3.0 General Appearance: WD/WN, no apparent distress, + pertinent finding (Chronic ill appearing) Head: normocephalic, atraumatic Eyes: normal inspection, PERRL, EOMI, sclerae normal ENT: normal ENT inspection, hearing grossly normal Neck: supple, trachea midline Respiratory/Chest: chest non-tender, lungs clear, normal breath sounds, no respiratory distress, no accessory muscle use Cardiovascular: regular rate, rhythm, no murmur, + pertinent finding (Chronic b /l edema) Abdomen/GI: normal bowel sounds, non tender, soft, + pertinent finding ( Distended) Back: normal inspection Extremities/Musculoskelatal: normal inspection, + pedal edema Neurologic/Psych: clerical supervisor II-XII nml as tested, no motor/sensory deficits, alert, normal mood/affect, oriented x 3 Skin: normal color, warm/dry, + pertinent finding (Multiple telangiectesia ) Diagnostics Laboratory Results Results Past 24 Hours Test 05/14/17 08:15 05/14/17 08:25 Range/Units White Blood Count 4.25 4.8-10.8 K/uL Red Blood Count 3.11 4.7-6.1 M/uL Hemoglobin 8.9 14.0-18.0 g/dL Hematocrit 27.7 42-52 % Mean Corpuscular Volume 89.1 80-100 fL Mean Corpuscular Hemoglobin 28.6 25-34 pg Mean Corpuscular Hemoglobin Concent 32.1 32-36 g/dl Platelet Count 66 130-400 K/uL Mean Platelet Volume 9.0 7.4-10.4 fL Neutrophils (%) (Auto) 74.4 % Lymphocytes (%) (Auto) 11.5 % Monocytes (%) (Auto) 10.1 % Eosinophils (%) (Auto) 3.3 % Basophils (%) (Auto) 0.5 % Neutrophils # (Auto) 3.16 1.4-6.5 K/uL Lymphocytes # (Auto) 0.49 1.2-3.4 K/uL Monocytes # (Auto) 0.43 0.11-0.59 K/uL Eosinophils # (Auto) 0.14 0-0.5 K/uL Basophils # (Auto) 0.02 0-0.2 K/uL RDW Standard Deviation 56.5 36.4-46.3 fL RDW Coefficient of Variation 17.1 11.5-14.5 % Immature Granulocyte % (Auto) 0.2 % Immature Granulocyte # (Auto) 0.01 0.00-0.02 K/uL Platelet Estimate DECREASED Anisocytosis PRESENT Prothrombin Time 12.5 9.0-12.0 SECONDS Prothromb Time International Ratio 1.2 0.9-1.1 Activated Partial Thromboplast Time 29.6 21.0-31.0 SECONDS Partial Thromboplastin Ratio 1.1 Sodium Level 142 136-145 mmol/L Potassium Level 4.0 3.5-5.1 mmol/L Chloride Level 109 98-107 mmol/L Carbon Dioxide Level 24 21-32 mmol/L Anion Gap 8.0 3-11 mmol/L Blood Urea Nitrogen 58 7-18 mg/dl Creatinine 3.03 0.60-1.40 mg/dl Est Creatinine Clear Calc Drug Dose 22.4 ml/min Estimated GFR () 20.4 Estimated GFR (Non- 17.6 BUN/Creatinine Ratio 19.2 10-20 Random Glucose 76 70-99 mg/dl Calcium Level 8.1 8.5-10.1 mg/dl Magnesium Level 2.4 1.8-2.4 mg/dl Total Bilirubin 0.6 0.2-1 mg/dl Direct Bilirubin 0.2 0-0.2 mg/dl Aspartate Amino Transf (AST/SGOT) 37 15-37 U/L Alanine Aminotransferase (ALT/SGPT) 29 12-78 U/L Alkaline Phosphatase 116 45-117 U/L Troponin I 0.018 0-0.045 ng/ml Pro-B-Type Natriuretic Peptide 5295 0-1800 pg/ml Total Protein 6.1 6.4-8.2 gm/dl Albumin 2.5 3.4-5.0 gm/dl Lipase 115 73-393 U/L Ammonia 39.1 11-32 umol/L Diagnostic Radiology CXR: 1. Interval resolution of the previously described pulmonary vascular congestion 2. Small subchronic right pleural effusion 3. No evidence of focal pulmonary consolidation Venous Doppler: Nonvisualization of the calf veins. No DVT identified from the common femoral through the popliteal veins bilaterally. ABD USD: Moderate to large volume of ascites, diminished when compared with the paracentesis study dated 04/20/2017. EKG EKG:Afib, LBBB, No acute changes Impression Assessment and Plan ESLD:SHANE cirrhosis: Hypotension S/P paracentesis H/O recurrent ascites Liver biopsy in 2013:significant portal and periportal fibrosis S/P ultrasound-guided paracentesis with removal of approximately 11.5 liters of ascitic fluid USD: showed Moderate to large volume of ascites No signs of SBP, will hold off on IV Abx Hold diuretics as intravascularly volume depleted Continue Rifaximin Start on gentle IV fluids IV albumin Q6H No signs of encephalopathy Will consider GI eval if necessary CKD IV Cr is likely at baseline Monitor renal function DM II: Last A1C:5.8 in Mar 2017 ISS. Lantus Monitor Blood sugar levels H/O recurrent C diff Denies diarrhea Sick sinus syndrome s/p pacemaker placement H/O HOCM s/p myomectomy Non ischemic cardiomyopathy Continue home medications Denies chest pain Chronic thrombocytopenia/Pancytopenia Myelodysplastic syndrome: CBC at baseline Not on any treatment currently monitor P.afib: Continue Metoprolol for rate control Asymptomatic Not on chronic anticoagulation COPD/Sleep Apnea: Continue CPAP QHS No acute issues H/O Recurrent Bladder cancer S/P resection, limited TURB Follows with as outpatient DVT Px: SCDs: Re: Thrombocytopenia Code Status: DNI/DNR on my discussion with patient and family Disposition: Expect to discharge to personal detention when stable PT/OT student support services director consulted
[2017-05-14] MEDS ORDERED: SODIUM CHLORIDE 0.9% 1000ML 500 ML IV ONE (14:30)
[2017-05-14] MEDS ORDERED: PROMETHAZINE HCL INJ 12.5 MG in SODIUM CHLORIDE 0.9% 50ML 50 ML IV PRN (14:30)
[2017-05-14] MEDS ORDERED: NITROGLYCERIN 0.4 MG SL PER TAB CHARGE UT PRN (14:45)
[2017-05-14] MEDS ORDERED: DEXTROSE 50% 50 ML SYR IV PRN (14:45)
[2017-05-14] MEDS ORDERED: GLUCOSE 40% GEL 15 GM TUBE PO PRN (14:45)
[2017-05-14] MEDS ORDERED: GLUCAGON FOR INJ 1 MG VIAL SQ PRN (14:45)
[2017-05-14] MEDS ORDERED: GLUCOSE 10 TABS/TUBE PO PRN (14:45)
[2017-05-14] MEDS ORDERED: LEVALBUTEROL 0.63MG/3 ML NEB INH PRN (16:45)
[2017-05-14] MEDS: INSULIN ASPART 100 UNITS/ML 3 ML PEN SC SCH ×2 (17:20→20:42)
[2017-05-14] MEDS: ALBUMIN HUMAN 25% 12.5 GM/50 ML VIAL IV SCH ×2 (17:25→23:51)
[2017-05-14] MEDS: MIDODRINE 2.5 MG TAB PO SCH (20:45)
[2017-05-14] MEDS: RIFAXIMIN TAB 550 MG TAB PO SCH (20:45)
[2017-05-14] MEDS: INSULIN GLARGINE SOLOSTAR 100 UNITS/ML 3 ML PEN SQ SCH (20:47)
[2017-05-15] VITALS (18 sets, daily range): BP systolic 88–107; BP diastolic 52–65; PULSE 56–87; TEMP 36.3–36.7; O2SAT 95–99
[2017-05-15] MEDS: ALBUMIN HUMAN 25% 12.5 GM/50 ML VIAL IV SCH ×3 (05:40→21:07)
[2017-05-15] MEDS: MIDODRINE 2.5 MG TAB PO SCH ×3 (06:39→17:43)
[2017-05-15 08:19] LABS: HEMATOCRIT 25.8 % (42-52); HEMOGLOBIN 8.3 g/dL (14.0-18.0); MEAN CORPUSCULAR HEMOGLOBIN 28.6 pg (25-34); MEAN CORPUSCULAR HGB CONC 32.2 g/dl (32-36); RED CELL DISTRIBUTION WIDTH SD 55.5 fL (36.4-46.3); WHITE BLOOD COUNT 2.28 K/uL (4.8-10.8)
[2017-05-15 08:22] LABS: MEAN PLATELET VOLUME 9.3 fL (7.4-10.4); PLATELET COUNT 43 K/uL (130-400)
[2017-05-15] MEDS: METOPROLOL SUCC 25MG EXT REL TAB PO SCH (08:25)
[2017-05-15] MEDS: FERROUS SULFATE 325 MG TAB PO SCH (08:31)
[2017-05-15] MEDS: RIFAXIMIN TAB 550 MG TAB PO SCH ×2 (08:32→21:11)
[2017-05-15] MEDS: INSULIN ASPART 100 UNITS/ML 3 ML PEN SC SCH ×4 (08:39→21:00)
[2017-05-15 08:45] LABS: CALCIUM 7.7 mg/dl (8.5-10.1); CREATININE 2.85 mg/dl (0.60-1.40)
[2017-05-15] MEDS ORDERED: FUROSEMIDE 40 MG TAB PO ONE (09:45)
[2017-05-15] MEDS ORDERED: SPIRONOLACTONE 25 MG TAB PO ONE (09:45)
--- NOTE | 2017-05-15 09:58 | Progress Note ---
Internal Med Progress Note Date of Service: May 15, 2017. Provider Documentation: SUBJECTIVE: Seen and examined at bedside States feeling much better, SOB improved Denies abd pain, chest pain, dizziness Has leakage from paracentesis site +Ostomy bag No other complaints OBJECTIVE: Vital Signs-as noted below General Appearance: WD/WN, no apparent distress, Chronic ill appearing Head: normocephalic, atraumatic Eyes: normal inspection, PERRL, EOMI, sclerae normal ENT: normal ENT inspection, hearing grossly normal Neck: supple, trachea midline Respiratory/Chest: chest non-tender, lungs clear, normal breath sounds, no respiratory distress, no accessory muscle use Cardiovascular: regular rate, rhythm, no murmur, + Chronic b/l edema Abdomen/GI: normal bowel sounds, non tender, soft, distended, + Ostomy bag at paracentesis site leakage Back: normal inspection Extremities/Musculoskelatal: normal inspection, + pedal edema Neurologic/Psych: resourcing advisor II-XII nml as tested, no motor/sensory deficits, alert, normal mood/affect, oriented x 3 Skin: normal color, warm/dry, + pertinent finding (Multiple telangiectesia ) Lab data as noted below. ASSESSMENT & PLAN: ESLD:SHANE cirrhosis: Hypotension S/P paracentesis H/O recurrent ascites Liver biopsy in 2013:significant portal and periportal fibrosis S/P ultrasound-guided paracentesis with removal of approximately 11.5 liters of ascitic fluid USD: showed Moderate to large volume of ascites No signs of SBP, will hold off on IV Abx Resume diuretics today BP improved Continue Rifaximin gentle IV fluids PRN Continue IV albumin Q6H>>>TID No signs of encephalopathy Will consult Surgery for Paracentesis site leakage, May need a suture to control leakage CKD IV Cr is likely at baseline Monitor renal function Cr:2.85 today Abnormal UA: Likely contaminated sample Denies Urinary symptoms Urine culture:pending DM II: Last A1C:5.8 in Mar 2017 ISS. Lantus Monitor Blood sugar levels H/O recurrent C diff Denies diarrhea Sick sinus syndrome s/p pacemaker placement H/O HOCM s/p myomectomy Non ischemic cardiomyopathy Continue home medications Denies chest pain Chronic thrombocytopenia/Pancytopenia Myelodysplastic syndrome: CBC at baseline Not on any treatment currently monitor P.afib: Continue Metoprolol for rate control Asymptomatic Not on chronic anticoagulation COPD/Sleep Apnea: Continue CPAP QHS No acute issues H/O Recurrent Bladder cancer S/P resection, limited TURB Follows with as outpatient DVT Px: SCDs: Re: Thrombocytopenia Code Status: DNI/DNR on my discussion with patient and family Disposition: Expect to discharge to personal [place] [facility] when stable PT/OT guest services representative consulted Vital Signs: Date Time Temp Pulse Resp B/P (MAP) Pulse Ox O2 Delivery O2 Flow Rate FiO2 05/15/17 08:00 Room Air 05/15/17 07:21 36.3 68 18 99/55 (70) 99 Room Air 05/15/17 06:10 36.4 66 18 93/56 (68) 98 Room Air 05/15/17 05:39 36.5 70 20 88/56 (67) 99 Room Air 05/15/17 04:04 36.5 74 18 100/60 (73) 98 CPAP 05/15/17 04:00 CPAP 05/15/17 01:02 36.5 68 18 96/56 (69) 98 CPAP 05/15/17 00:10 36.7 62 20 96/56 (69) 99 CPAP 05/15/17 00:00 CPAP 05/14/17 23:49 36.5 66 20 89/46 (60) 98 CPAP 05/14/17 23:08 36.4 63 18 100/61 (74) 94 CPAP 05/14/17 22:03 79 99 2.0 05/14/17 20:00 Nasal Cannula 2.0 05/14/17 19:18 36.4 88 24 134/72 (92) 96 2.0 05/14/17 18:34 36.4 70 18 90/48 (62) 94 Room Air 2.0 05/14/17 18:00 36.4 71 18 94/55 (68) 100 Room Air 05/14/17 17:45 36.6 77 18 90/48 (62) 97 Room Air 69 05/14/17 17:30 36.4 69 18 90/54 (66) 97 Room Air 05/14/17 16:07 36.2 69 22 93/55 (68) 97 Room Air 92/57 (69) 05/14/17 16:00 97 Room Air 05/14/17 14:56 75 18 89/58 97 Room Air 05/14/17 14:33 67 16 88/50 95 05/14/17 14:05 68 20 93/53 93 Room Air 05/14/17 13:59 70 18 77/46 94 Room Air 05/14/17 13:29 72 16 79/47 95 Room Air 78/45 05/14/17 12:41 80 05/14/17 12:35 69 16 98/57 98 05/14/17 12:09 81 18 96/56 97 Nasal Cannula 3.0 05/14/17 11:53 70 18 93/68 99 Nasal Cannula 3.0 05/14/17 11:35 71 16 81/53 100 Nasal Cannula 05/14/17 11:30 76 116/52 100 Nasal Cannula 3.0 Lab Results: Results Past 24 Hours Test 05/14/17 16:23 05/14/17 17:10 05/14/17 20:03 05/15/17 06:34 Range/Units Bedside Glucose 101 167 70-99 mg/dl Urine Color YELLOW Urine Appearance CLEAR CLEAR Urine pH 5.0 4.5-7.5 Urine Specific [place] 1.019 1.000-1.030 Urine Protein NEG NEG Urine Glucose (UA) NEG NEG Urine Ketones NEG NEG Urine Occult Blood NEG NEG Urine Nitrite NEG NEG Urine Bilirubin NEG NEG Urine Urobilinogen NEG NEG Urine Leukocyte Esterase MODERATE NEG Urine WBC (Auto) 10-30 0-5 /hpf Urine RBC (Auto) 0-4 0-4 /hpf Urine Hyaline Casts (Auto) 1-5 0-5 /lpf Urine Epithelial Cells (Auto) 20-30 0-5 /lpf Urine Bacteria (Auto) NEG NEG White Blood Count 2.28 4.8-10.8 K/uL Red Blood Count 2.90 4.7-6.1 M/uL Hemoglobin 8.3 14.0-18.0 g/dL Hematocrit 25.8 42-52 % Mean Corpuscular Volume 89.0 80-100 fL Mean Corpuscular Hemoglobin 28.6 25-34 pg Mean Corpuscular Hemoglobin Concent 32.2 32-36 g/dl RDW Standard Deviation 55.5 36.4-46.3 fL RDW Coefficient of Variation 17.0 11.5-14.5 % Platelet Count 43 130-400 K/uL Mean Platelet Volume 9.3 7.4-10.4 fL Sodium Level 144 136-145 mmol/L Potassium Level 4.0 3.5-5.1 mmol/L Chloride Level 112 98-107 mmol/L Carbon Dioxide Level 22 21-32 mmol/L Anion Gap 10.0 3-11 mmol/L Blood Urea Nitrogen 57 7-18 mg/dl Creatinine 2.85 0.60-1.40 mg/dl Est Creatinine Clear Calc Drug Dose 22.8 ml/min Estimated GFR () 22.0 Estimated GFR (Non- 19.0 BUN/Creatinine Ratio 20.1 10-20 Random Glucose 93 70-99 mg/dl Calcium Level 7.7 8.5-10.1 mg/dl Magnesium Level 2.3 1.8-2.4 mg/dl Test 05/15/17 07:24 Range/Units Bedside Glucose 95 70-99 mg/dl Microbiology Results 05/14/17 Urine Culture, Received Pending
--- NOTE | 2017-05-15 15:07 | Medical Consult ---
Consultation Date of Consultation: May 15, 2017. Attending Physician: Александр Hoang MD Reason for Consultation: Leakage from paracentesis site. History of Present Illness Pleasant 87-year-old male with complicated medical history consisting of SHANE cirrhosis and recurrent ascites, recurrent C. diff, Sick Sinus Syndrom, s/p pacemaker placement, HOCM, non-ischemic cardiomyopathy, COPD, CKD stage 4-5, chronic thrombocytopenia, 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, A. Fib, sleep apnea, type 2 diabetes presented to [facility] yesterday after increasing abdominal distention and difficulty breathing. Abdominal ultrasound was conducted which showed a moderate to large volume of ascitic fluid. Ultrasound-guided paracentesis was conducted with removal of 11.5 liters of ascitic fluid in ED. s/p paracentesis patient become hypotensive- IV fluids and albumin were administered. Patient's paracentesis site began to leak shortly after paracentesis was conducted. Past Medical/Surgical History Medical Problems: (1) Acute on chronic renal failure Status: Acute (2) MAGEN (acute kidney injury) Status: Acute (3) Altered mental status Status: Acute (4) Anasarca Status: Acute (5) Anasarca Status: Acute (6) Ascites Status: Acute (7) Ascites Status: Chronic (8) Bilateral leg edema Status: Acute (9) CHF (congestive heart failure) Status: Acute (10) CHF (congestive heart failure) Status: Acute (11) Dehydration Status: Acute (12) Dependent edema Status: Acute (13) Dyspnea on exertion Status: Acute (14) Elevated lactic acid level Status: Acute (15) Elevated troponin Status: Acute (16) Hepatic encephalopathy Status: Acute (17) Hypotension Status: Acute (18) Hypotension Status: Acute (19) Kidney failure Status: Acute (20) Pancytopenia Status: Acute (21) Pulmonary edema Status: Acute (22) Renal failure Status: Acute (23) Right heart failure Status: Acute (24) Shortness of breath Status: Acute Family History FHx: heart disease Social History Smoking Status: Former Smoker Alcohol Use: none Drug Use: none Marital Status: Housing Status: assisted living Occupation Status: unemployed Allergies Coded Allergies: Propranolol (Verified Allergy, Unknown, 05/14/17) Codeine (Verified Adverse Reaction, Mild, NOTED "DOESNT TOLERATE WELL" , 05/14/17) Current Inpatient Medications Current Inpatient Medications Medications (Trade) Dose Ordered Sig/Gin Route Start Time Stop Time Status Last Admin Dose Admin Promethazine HCl 12.5 mg/Sodium Chloride 50.5 ml @ 204 mls/hr Q6H PRN IV 05/14/17 14:30 06/13/17 14:29 Insulin Aspart (novoLOG ASPART) SLIDING SCALE If C... ACHS SC 05/14/17 16:00 06/13/17 15:59 05/15/17 13:12 5 UNITS Glucose (Glucose 40% Gel) 15-30 GRAMS 15 GRAMS... UD PRN PO 05/14/17 14:45 06/13/17 14:44 Glucose (Glucose Chew Tab) 4-8 Tablets 4 Tabl... UD PRN PO 05/14/17 14:45 06/13/17 14:44 Dextrose (Dextrose 50% 50ML Syringe) 25-50ML OF 50% DW IV FOR... UD PRN IV 05/14/17 14:45 06/13/17 14:44 Glucagon (Glucagon Inj) 1 mg UD PRN SQ 05/14/17 14:45 06/13/17 14:44 Folic Acid (Folvite Tab) 1 mg DAILY PO 05/15/17 09:00 06/14/17 08:59 05/15/17 08:32 1 MG Insulin Glargine (Lantus Solostar Pen) 14 units HS SQ 05/14/17 21:00 06/13/17 20:59 05/14/17 20:47 14 UNITS Metoprolol Succinate (Toprol Xl Tab) 12.5 mg DAILY PO 05/15/17 09:00 06/14/17 08:59 Midodrine (Proamatine Tab) 5 mg TID@0700,1200,1700 PO 05/14/17 21:00 06/13/17 20:59 05/15/17 13:03 5 MG Nitroglycerin (Nitrostat Tab) 0.4 mg UD PRN UT 05/14/17 14:45 06/13/17 14:44 Rifaximin (Xifaxan Tab) 550 mg BID PO 05/14/17 21:00 06/13/17 20:59 05/15/17 08:32 550 MG Ferrous Sulfate (Feosol Tab) 325 mg DAILY PO 05/15/17 09:00 06/14/17 08:59 05/15/17 08:31 325 MG Levalbuterol (Xopenex 0.63 Mg/ 3 Ml Neb) 0.63 mg Q6R PRN INH 05/14/17 16:45 06/13/17 16:44 Furosemide (Lasix Tab) 40 mg BID17 PO 05/15/17 17:00 06/14/17 16:59 Spironolactone (Aldactone Tab) 50 mg QAM PO 05/16/17 09:00 06/15/17 08:59 Albumin Human (Albumin 25%) 12.5 gm TID IV 05/15/17 14:00 05/17/17 17:59 05/15/17 14:04 12.5 GM Review of Systems Constitutional: No fever, No chills Abdomen: No pain, No nausea, No vomiting Physical Exam Date Time Temp Pulse Resp B/P (MAP) Pulse Ox O2 Delivery O2 Flow Rate FiO2 05/15/17 14:09 36.3 65 16 101/59 (73) 99 Room Air 05/15/17 12:00 Room Air 05/15/17 11:26 36.3 73 16 93/59 (70) 95 Room Air 05/15/17 08:00 Room Air 05/15/17 07:21 36.3 68 18 99/55 (70) 99 Room Air 05/15/17 06:10 36.4 66 18 93/56 (68) 98 Room Air 05/15/17 05:39 36.5 70 20 88/56 (67) 99 Room Air 05/15/17 04:04 36.5 74 18 100/60 (73) 98 CPAP 05/15/17 04:00 CPAP 05/15/17 01:02 36.5 68 18 96/56 (69) 98 CPAP 05/15/17 00:10 36.7 62 20 96/56 (69) 99 CPAP 05/15/17 00:00 CPAP 05/14/17 23:49 36.5 66 20 89/46 (60) 98 CPAP 05/14/17 23:08 36.4 63 18 100/61 (74) 94 CPAP 05/14/17 22:03 79 99 2.0 05/14/17 20:00 Nasal Cannula 2.0 12/24/17 19:18 36.4 88 24 134/72 (92) 96 2.0 05/14/17 18:34 36.4 70 18 90/48 (62) 94 Room Air 2.0 05/14/17 18:00 36.4 71 18 94/55 (68) 100 Room Air 05/14/17 17:45 36.6 77 18 90/48 (62) 97 Room Air 69 05/14/17 17:30 36.4 69 18 90/54 (66) 97 Room Air 05/14/17 16:07 36.2 69 22 93/55 (68) 97 Room Air 92/57 (69) 05/14/17 16:00 97 Room Air General Appearance: WD/WN, no apparent distress Abdomen/GI: + pertinent finding (small incision located in right abdomen with leaking ascitic fluid- ostomy bag attached to collect fluid. ) Skin: normal color, warm/dry, no rash Laboratory Results Last 24 Hours Test 05/14/17 16:23 05/14/17 17:10 05/14/17 20:03 05/15/17 06:34 Bedside Glucose 101 mg/dl 167 mg/dl Urine Color YELLOW Urine Appearance CLEAR Urine pH 5.0 Urine Specific [place] 1.019 Urine Protein NEG Urine Glucose (UA) NEG Urine Ketones NEG Urine Occult Blood NEG Urine Nitrite NEG Urine Bilirubin NEG Urine Urobilinogen NEG Urine Leukocyte Esterase MODERATE Urine WBC (Auto) 10-30 /hpf Urine RBC (Auto) 0-4 /hpf Urine Hyaline Casts (Auto) 1-5 /lpf Urine Epithelial Cells (Auto) 20-30 /lpf Urine Bacteria (Auto) NEG White Blood Count 2.28 K/uL Red Blood Count 2.90 M/uL Hemoglobin 8.3 g/dL Hematocrit 25.8 % Mean Corpuscular Volume 89.0 fL Mean Corpuscular Hemoglobin 28.6 pg Mean Corpuscular Hemoglobin Concent 32.2 g/dl RDW Standard Deviation 55.5 fL RDW Coefficient of Variation 17.0 % Platelet Count 43 K/uL Mean Platelet Volume 9.3 fL Sodium Level 144 mmol/L Potassium Level 4.0 mmol/L Chloride Level 112 mmol/L Carbon Dioxide Level 22 mmol/L Anion Gap 10.0 mmol/L Blood Urea Nitrogen 57 mg/dl Creatinine 2.85 mg/dl Est Creatinine Clear Calc Drug Dose 22.8 ml/min Estimated GFR () 22.0 Estimated GFR (Non- 19.0 BUN/Creatinine Ratio 20.1 Random Glucose 93 mg/dl Calcium Level 7.7 mg/dl Magnesium Level 2.3 mg/dl Test 05/15/17 07:24 05/15/17 11:12 Bedside Glucose 95 mg/dl 152 mg/dl Assessment & Plan 87-year-old male with multiple comorbidities s/p paracentesis (11.5 liters)- now with leaking paracentesis site. Patient seen and examined with Dr. Perez. Paracentesis site cleaned and dried- Dermabond applied to incision and given time to dry- new bag placed. Recommend that patient lay on side as much as possible to help slow and stop leakage. Will continue to follow patient. Patient seen and examined, agree with above. Status post paracentesis with continued drainage from and she site. Dermabond applied at bedside. Typically sutures not indicated any situations as the tissue was friable and a connection worsened leak. Most continued paracentesis leaks improve with medical optimization of ascites, and keeping the patient in a position which uses gravity to our advantage. Surgery will continue to follow, call with questions or concerns. Josias Perez, DO
[2017-05-15] MEDS: FUROSEMIDE 40 MG TAB PO SCH (17:45)
[2017-05-15] MEDS: INSULIN GLARGINE SOLOSTAR 100 UNITS/ML 3 ML PEN SQ SCH (21:16)
[2017-05-16] VITALS (9 sets, daily range): BP systolic 92–109; BP diastolic 53–77; PULSE 66–77; TEMP 36.3–37; O2SAT 93–100
[2017-05-16] MEDS: MIDODRINE 2.5 MG TAB PO SCH ×3 (06:00→16:58)
[2017-05-16 06:14] LABS: HEMOGLOBIN 8.2 g/dL (14.0-18.0); MEAN CELL VOLUME 88.4 fL (80-100); MEAN CORPUSCULAR HEMOGLOBIN 27.9 pg (25-34); MEAN CORPUSCULAR HGB CONC 31.5 g/dl (32-36); RED CELL DISTRIBUTION WIDTH CV 16.4 % (11.5-14.5); RED CELL DISTRIBUTION WIDTH SD 53.6 fL (36.4-46.3); WHITE BLOOD COUNT 2.49 K/uL (4.8-10.8)
[2017-05-16 06:16] LABS: MEAN PLATELET VOLUME 8.6 fL (7.4-10.4); PLATELET COUNT 48 K/uL (130-400)
[2017-05-16 06:53] LABS: CREATININE 2.57 mg/dl (0.60-1.40)
[2017-05-16 06:54] LABS: CALCIUM 7.9 mg/dl (8.5-10.1); POTASSIUM 4.4 mmol/L (3.5-5.1)
[2017-05-16] MEDS: FUROSEMIDE 40 MG TAB PO SCH ×2 (07:50→16:59)
[2017-05-16] MEDS: FERROUS SULFATE 325 MG TAB PO SCH (07:51)
[2017-05-16] MEDS: METOPROLOL SUCC 25MG EXT REL TAB PO SCH (07:51)
[2017-05-16] MEDS: RIFAXIMIN TAB 550 MG TAB PO SCH ×2 (07:52→21:39)
[2017-05-16] MEDS: SPIRONOLACTONE 25 MG TAB PO SCH (07:52)
[2017-05-16] MEDS: INSULIN ASPART 100 UNITS/ML 3 ML PEN SC SCH ×4 (08:02→21:00)
[2017-05-16] MEDS: ALBUMIN HUMAN 25% 12.5 GM/50 ML VIAL IV SCH ×3 (08:05→21:40)
--- NOTE | 2017-05-16 09:32 | Surgery Progress Note ---
Surgery Progress Note Date of Service May 16, 2017. Subjective + feeling well, No complaints Objective Vital Signs: Date Time Temp Pulse Resp B/P (MAP) Pulse Ox O2 Delivery O2 Flow Rate FiO2 05/16/17 08:12 36.6 73 16 109/66 (80) 99 Room Air 05/16/17 07:14 36.6 73 19 96/64 (75) 100 Nasal Cannula 2.0 05/16/17 04:03 36.7 71 19 96/62 (73) 97 Room Air 05/16/17 04:02 Room Air 05/16/17 04:01 37.0 76 18 92/53 (66) 99 Room Air 05/16/17 00:00 Room Air 05/15/17 23:45 36.6 56 20 93/54 (67) 98 CPAP 2.0 05/15/17 22:30 87 98 2.0 05/15/17 22:05 36.3 67 18 96/56 (69) 99 Room Air 05/15/17 21:40 36.4 68 18 102/52 (69) 95 Room Air 99 05/15/17 21:25 36.5 76 18 97/58 (71) 95 Room Air 05/15/17 21:10 36.5 71 18 103/58 (73) 98 Room Air 98 05/15/17 20:00 96 Room Air 05/15/17 19:59 36.4 73 18 107/65 (79) 98 Room Air 05/15/17 16:00 95 Room Air 05/15/17 16:00 70 103/57 (72) 05/15/17 15:59 36.3 63 18 97/59 (72) 99 Room Air 05/15/17 14:09 36.3 65 16 101/59 (73) 99 Room Air 05/15/17 12:00 Room Air 05/15/17 11:26 36.3 73 16 93/59 (70) 95 Room Air General Appearance: WD/WN, no apparent distress Abdomen: + pertinent finding Laboratory Results: Results Past 24 Hours Test 05/15/17 11:12 05/15/17 16:31 05/15/17 20:24 05/16/17 05:34 Range/Units Bedside Glucose 152 109 97 70-99 mg/dl White Blood Count 2.49 4.8-10.8 K/uL Red Blood Count 2.94 4.7-6.1 M/uL Hemoglobin 8.2 14.0-18.0 g/dL Hematocrit 26.0 42-52 % Mean Corpuscular Volume 88.4 80-100 fL Mean Corpuscular Hemoglobin 27.9 25-34 pg Mean Corpuscular Hemoglobin Concent 31.5 32-36 g/dl RDW Standard Deviation 53.6 36.4-46.3 fL RDW Coefficient of Variation 16.4 11.5-14.5 % Platelet Count 48 130-400 K/uL Mean Platelet Volume 8.6 7.4-10.4 fL Sodium Level 140 136-145 mmol/L Potassium Level 4.4 3.5-5.1 mmol/L Chloride Level 111 98-107 mmol/L Carbon Dioxide Level 25 21-32 mmol/L Anion Gap 4.0 3-11 mmol/L Blood Urea Nitrogen 50 7-18 mg/dl Creatinine 2.57 0.60-1.40 mg/dl Est Creatinine Clear Calc Drug Dose 25.3 ml/min Estimated GFR () 24.9 Estimated GFR (Non- 21.5 BUN/Creatinine Ratio 19.5 10-20 Random Glucose 81 70-99 mg/dl Calcium Level 7.9 8.5-10.1 mg/dl Magnesium Level 2.2 1.8-2.4 mg/dl Test 05/16/17 07:25 Range/Units Bedside Glucose 78 70-99 mg/dl Assessment & Plan 87-year-old male with multiple comorbidities s/p paracentesis (11.5 liters)- now with leaking paracentesis site. Patient seen and examined with Dr. Perez Leakage from paracentesis site improved from yesterday- will hopefully continue to slow and then eventually stop. Most continued paracentesis leaks improve with medical optimization of ascites, and keeping the patient in a position which uses gravity to our advantage. General surgery will sign off at this time. Please call with any questions or concerns.
--- NOTE | 2017-05-16 17:12 | Progress Note ---
Medicine Progress Note Date & Time of Visit: May 16, 2017 at 17:12. Subjective Patient reports feeling better overall. Denies any complaints of dizziness or lightheadedness, tolerating PO without difficulty. Denies any pain. No overnight events noted. Objective Last 8 Hrs Date Time Temp Pulse Resp B/P (MAP) Pulse Ox O2 Delivery O2 Flow Rate FiO2 05/16/17 15:08 36.4 66 18 95/58 (70) 97 Room Air 05/16/17 14:40 36.6 67 18 103/65 (78) 100 Room Air 05/16/17 12:00 Room Air 05/16/17 11:23 36.3 66 20 99/62 (74) 93 Room Air Physical Exam: GENERAL: Patient is in no acute distress. HEENT: No acute trauma, normocephalic atraumatic, mucous membranes moist, no nasal congestion, no scleral icterus. Conjunctivae clear NECK: No stridor, trachea is midline. LUNGS: Clear to auscultation bilaterally, no wheeze, no rhonchi, breath sounds equal. HEART: Without murmurs gallops or rubs, regular rate and rhythm. ABDOMEN: Soft, nontender, bowel sounds positive, +distension and ascites, unable to palpate liver/spleen EXTREMITIES: No cyanosis or edema NEUROLOGIC: Oriented x 3, no acute motor or sensory deficits, no focal weakness. SKIN: No rash, no jaundice, no diaphoresis. Laboratory Results: Last 24 Hours Test 05/15/17 20:24 05/16/17 05:34 05/16/17 07:25 05/16/17 11:36 Bedside Glucose 97 mg/dl 78 mg/dl 116 mg/dl White Blood Count 2.49 K/uL Red Blood Count 2.94 M/uL Hemoglobin 8.2 g/dL Hematocrit 26.0 % Mean Corpuscular Volume 88.4 fL Mean Corpuscular Hemoglobin 27.9 pg Mean Corpuscular Hemoglobin Concent 31.5 g/dl RDW Standard Deviation 53.6 fL RDW Coefficient of Variation 16.4 % Platelet Count 48 K/uL Mean Platelet Volume 8.6 fL Sodium Level 140 mmol/L Potassium Level 4.4 mmol/L Chloride Level 111 mmol/L Carbon Dioxide Level 25 mmol/L Anion Gap 4.0 mmol/L Blood Urea Nitrogen 50 mg/dl Creatinine 2.57 mg/dl Est Creatinine Clear Calc Drug Dose 25.3 ml/min Estimated GFR () 24.9 Estimated GFR (Non- 21.5 BUN/Creatinine Ratio 19.5 Random Glucose 81 mg/dl Calcium Level 7.9 mg/dl Magnesium Level 2.2 mg/dl Test 05/16/17 16:19 Bedside Glucose 119 mg/dl Assessment & Plan 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 -has known recurrent ascites requiring repeated paracentesis -Liver biopsy in 2013:significant portal and periportal fibrosis -US showed moderate to large volume of ascites; S/P ultrasound-guided paracentesis with removal of approximately 11.5 liters of ascitic fluid on 05/14 -no signs suggestive of SBP, will hold off on IV Abx -resumed diuretics, tolerating without difficulty -BP improved -continued on Rifaximin as well -order for a repeat paracentesis tomorrow -consulted Surgery for Paracentesis site leakage, s/p dermabond, leak present but has decreased HYPOTENSION: -following paracentesis -gentle IV fluids PRN -IV albumin Q6H initially now TID -No signs of encephalopathy -continued on midodrine CKD STAGE IV: -Cr is at baseline in 2.5-2.9 range -monitor -avoid nephrotoxins -albumin before and after paracentesis Abnormal UA: Likely contaminated sample Denies Urinary symptoms Urine culture:pending DM TYPE II: -last HbA1c: 5.8 in Mar 2017 -Correction scale insulin + Lantus -monitor BSG PRIOR HX OF RECURRENT C DIFF: -denies diarrhea presently SSS S/P PACEMAKER PLACEMENT: -outpatient pacemaker interrogation as scheduled HX OF HOCM: s/p myomectomy NON-ISCHEMIC CM -continue home medications -denies any related symptoms at this time 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 -CBC at baseline -Not on any treatment currently -monitor PAROXYSMAL AFIB: -continue Metoprolol for rate control -Asymptomatic -Not on chronic anticoagulation due to above COPD: -not in exacerbation CARLITA: -Continue CPAP QHS HX OF RECURRENT BLADDER CANCER: -S/P resection, limited TURB -Follows with Urology as outpatient Current Inpatient Medications: Current Inpatient Medications Medications (Trade) Dose Ordered Sig/Gin Route Start Time Stop Time Status Last Admin Dose Admin Promethazine HCl 12.5 mg/Sodium Chloride 50.5 ml @ 204 mls/hr Q6H PRN IV 05/14/17 14:30 06/13/17 14:29 Insulin Aspart (novoLOG ASPART) SLIDING SCALE If C... ACHS SC 05/14/17 16:00 06/13/17 15:59 05/16/17 12:22 2 UNITS Glucose (Glucose 40% Gel) 15-30 GRAMS 15 GRAMS... UD PRN PO 05/14/17 14:45 06/13/17 14:44 Glucose (Glucose Chew Tab) 4-8 Tablets 4 Tabl... UD PRN PO 05/14/17 14:45 06/13/17 14:44 Dextrose (Dextrose 50% 50ML Syringe) 25-50ML OF 50% DW IV FOR... UD PRN IV 05/14/17 14:45 06/13/17 14:44 Glucagon (Glucagon Inj) 1 mg UD PRN SQ 05/14/17 14:45 06/13/17 14:44 Folic Acid (Folvite Tab) 1 mg DAILY PO 05/15/17 09:00 06/14/17 08:59 05/16/17 07:51 1 MG Insulin Glargine (Lantus Solostar Pen) 14 units HS SQ 05/14/17 21:00 06/13/17 20:59 05/15/17 21:16 14 UNITS Metoprolol Succinate (Toprol Xl Tab) 12.5 mg DAILY PO 05/15/17 09:00 06/14/17 08:59 Midodrine (Proamatine Tab) 5 mg TID@0700,1200,1700 PO 05/14/17 21:00 06/13/17 20:59 05/16/17 12:19 5 MG Nitroglycerin (Nitrostat Tab) 0.4 mg UD PRN UT 05/14/17 14:45 06/13/17 14:44 Rifaximin (Xifaxan Tab) 550 mg BID PO 05/14/17 21:00 06/13/17 20:59 05/16/17 07:52 550 MG Ferrous Sulfate (Feosol Tab) 325 mg DAILY PO 05/15/17 09:00 06/14/17 08:59 05/16/17 07:51 325 MG Levalbuterol (Xopenex 0.63 Mg/ 3 Ml Neb) 0.63 mg Q6R PRN INH 05/14/17 16:45 06/13/17 16:44 Furosemide (Lasix Tab) 40 mg BID17 PO 05/15/17 17:00 06/14/17 16:59 05/16/17 07:50 40 MG Spironolactone (Aldactone Tab) 50 mg QAM PO 05/16/17 09:00 06/15/17 08:59 05/16/17 07:52 50 MG Albumin Human (Albumin 25%) 12.5 gm TID IV 05/15/17 14:00 05/17/17 17:59 05/16/17 14:33 12.5 GM
[2017-05-16] MEDS: INSULIN GLARGINE SOLOSTAR 100 UNITS/ML 3 ML PEN SQ SCH (21:49)
[2017-05-17] VITALS (14 sets, daily range): BP systolic 81–110; BP diastolic 48–67; PULSE 57–107; TEMP 36.2–36.8; O2SAT 95–100
[2017-05-17 06:12] LABS: HEMOGLOBIN 8.1 g/dL (14.0-18.0); MEAN CELL VOLUME 87.7 fL (80-100); MEAN CORPUSCULAR HEMOGLOBIN 28.4 pg (25-34); MEAN CORPUSCULAR HGB CONC 32.4 g/dl (32-36); RED CELL DISTRIBUTION WIDTH CV 16.6 % (11.5-14.5); RED CELL DISTRIBUTION WIDTH SD 53.5 fL (36.4-46.3)
[2017-05-17 06:23] LABS: MEAN PLATELET VOLUME 9.1 fL (7.4-10.4); PLATELET COUNT 42 K/uL (130-400)
[2017-05-17] MEDS: MIDODRINE 2.5 MG TAB PO SCH ×2 (06:28→11:31)
[2017-05-17 06:44] LABS: CALCIUM 7.7 mg/dl (8.5-10.1); CREATININE 2.7 mg/dl (0.60-1.40)
[2017-05-17] MEDS: RIFAXIMIN TAB 550 MG TAB PO SCH ×2 (07:52→21:57)
[2017-05-17] MEDS: SPIRONOLACTONE 25 MG TAB PO SCH (07:57)
[2017-05-17] MEDS: FUROSEMIDE 40 MG TAB PO SCH ×2 (07:58→17:24)
[2017-05-17] MEDS: FERROUS SULFATE 325 MG TAB PO SCH (07:58)
[2017-05-17] MEDS: METOPROLOL SUCC 25MG EXT REL TAB PO SCH (08:01)
[2017-05-17] MEDS: INSULIN ASPART 100 UNITS/ML 3 ML PEN SC SCH ×4 (08:04→21:59)
[2017-05-17] MEDS: ALBUMIN HUMAN 25% 12.5 GM/50 ML VIAL IV SCH (08:08)
--- NOTE | 2017-05-17 11:24 | Surgery Progress Note ---
Surgery Progress Note Date of Service May 17, 2017. Subjective 87-year-old male with poorly controlled ascites status post paracentesis on 14 May, persistent leaking from access site. Dermabond was placed over the site on Monday, and it appears that it has decreased slightly. He is scheduled for another paracentesis today. Objective Vital Signs: Date Time Temp Pulse Resp B/P (MAP) Pulse Ox O2 Delivery O2 Flow Rate FiO2 05/17/17 08:50 74 102/61 (75) 05/17/17 08:09 74 104/63 (77) 05/17/17 08:00 Room Air 05/17/17 07:53 36.7 73 20 81/55 (64) 97 Room Air 05/17/17 04:29 36.8 57 17 87/48 (61) 100 CPAP 05/17/17 04:00 CPAP 05/17/17 00:32 36.3 64 19 96/56 (69) 99 CPAP 05/17/17 00:00 CPAP 05/16/17 21:58 74 100 2.0 05/16/17 20:00 Room Air 05/16/17 19:38 36.3 77 18 104/77 (86) 98 Room Air 05/16/17 16:00 Room Air 05/16/17 15:08 36.4 66 18 95/58 (70) 97 Room Air 05/16/17 14:40 36.6 67 18 103/65 (78) 100 Room Air 05/16/17 12:00 Room Air 05/16/17 11:23 36.3 66 20 99/62 (74) 93 Room Air General Appearance: WD/WN, no apparent distress Abdomen: normal bowel sounds, non tender, soft, no organomegaly, no pulsatile mass, + distended (distended with fluid wave), + pertinent finding (right-sided abdominal paracentesis access site with small amount of fluid draining into the ostomy bag.) Laboratory Results: Results Past 24 Hours Test 05/16/17 11:36 05/16/17 16:19 05/16/17 20:18 05/17/17 05:47 Range/Units Bedside Glucose 116 119 123 70-99 mg/dl White Blood Count 2.50 4.8-10.8 K/uL Red Blood Count 2.85 4.7-6.1 M/uL Hemoglobin 8.1 14.0-18.0 g/dL Hematocrit 25.0 42-52 % Mean Corpuscular Volume 87.7 80-100 fL Mean Corpuscular Hemoglobin 28.4 25-34 pg Mean Corpuscular Hemoglobin Concent 32.4 32-36 g/dl RDW Standard Deviation 53.5 36.4-46.3 fL RDW Coefficient of Variation 16.6 11.5-14.5 % Platelet Count 42 130-400 K/uL Mean Platelet Volume 9.1 7.4-10.4 fL Sodium Level 140 136-145 mmol/L Potassium Level 4.0 3.5-5.1 mmol/L Chloride Level 108 98-107 mmol/L Carbon Dioxide Level 25 21-32 mmol/L Anion Gap 7.0 3-11 mmol/L Blood Urea Nitrogen 59 7-18 mg/dl Creatinine 2.70 0.60-1.40 mg/dl Est Creatinine Clear Calc Drug Dose 24.1 ml/min Estimated GFR () 23.5 Estimated GFR (Non- 20.3 BUN/Creatinine Ratio 21.8 10-20 Random Glucose 94 70-99 mg/dl Calcium Level 7.7 8.5-10.1 mg/dl Magnesium Level 2.1 1.8-2.4 mg/dl Test 05/17/17 07:41 Range/Units Bedside Glucose 92 70-99 mg/dl Assessment & Plan 87-year-old male with poorly controlled ascites status post paracentesis with continued drainage from access site. This appears to be slowing but is not completely stopped. Recommendation: Continue optimizing medical management of ascites Paracentesis access site leaks typically resolve over several days with adequate management of the ascites. Dermabond can sometimes help, however placing a stitch insecurity arty friable tissue and can lead to infection. Surgery will follow peripherally
[2017-05-17] MEDS ORDERED: ALBUMIN HUMAN 25% 12.5 GM/50 ML VIAL IV ONE (13:45)
--- NOTE | 2017-05-17 16:48 | DIAGNOSTIC IMAGING REPORT ---
ASCITES-ABDOMEN LIMITED CLINICAL HISTORY: Persistent ascites. COMPARISON STUDY: Ultrasound guided paracentesis May 14, 2017. FINDINGS: The patient presented today for possible paracentesis. However, sonography of the 4 quadrants revealed only a small amount of ascites which was insufficient for a safe paracentesis. Therefore, no procedure was performed. This was discussed with Dr. Mcgee at time of study. IMPRESSION: Small amount of ascites. No paracentesis performed given insufficient fluid for paracentesis. Electronically signed by: Williams Goetz M.D. 05/17/2017 4:47 PM Dictated Date/Time: 05/17/2017 3:25 PM
--- NOTE | 2017-05-17 16:59 | Progress Note ---
Medicine Progress Note Date & Time of Visit: May 17, 2017 at 16:54. Subjective Patient reports feeling well, still has some drainage from the paracentesis site but reports it is less than before. No overnight events noted. Tolerating PO. States he is moving his bowels without difficulty. No complaints of pain or SOB. Objective Last 8 Hrs Date Time Temp Pulse Resp B/P (MAP) Pulse Ox O2 Delivery O2 Flow Rate FiO2 05/17/17 16:00 98 Room Air 05/17/17 15:30 36.2 65 18 110/67 (81) 98 Room Air 05/17/17 14:19 36.3 67 18 89/59 (69) 98 Room Air 05/17/17 13:41 67 90/50 (63) 05/17/17 12:00 Room Air 05/17/17 11:39 36.4 74 16 86/55 (65) 99 Room Air 05/17/17 11:34 36.4 107 22 97/58 (71) 95 Room Air Physical Exam: GENERAL: Patient is in no acute distress. HEENT: No acute trauma, normocephalic atraumatic, mucous membranes moist, no nasal congestion, no scleral icterus. Conjunctivae clear NECK: No stridor, trachea is midline. LUNGS: Clear to auscultation bilaterally, no wheeze, no rhonchi, breath sounds equal. HEART: Without murmurs gallops or rubs, regular rate and rhythm. ABDOMEN: Soft, nontender, bowel sounds positive, +distension and ascites, unable to palpate liver/spleen EXTREMITIES: No cyanosis or edema NEUROLOGIC: Oriented x 3, no acute motor or sensory deficits, no focal weakness. SKIN: No rash, no jaundice, no diaphoresis. Laboratory Results: Last 24 Hours Test 05/16/17 20:18 05/17/17 05:47 05/17/17 07:41 05/17/17 11:18 Bedside Glucose 123 mg/dl 92 mg/dl 159 mg/dl White Blood Count 2.50 K/uL Red Blood Count 2.85 M/uL Hemoglobin 8.1 g/dL Hematocrit 25.0 % Mean Corpuscular Volume 87.7 fL Mean Corpuscular Hemoglobin 28.4 pg Mean Corpuscular Hemoglobin Concent 32.4 g/dl RDW Standard Deviation 53.5 fL RDW Coefficient of Variation 16.6 % Platelet Count 42 K/uL Mean Platelet Volume 9.1 fL Sodium Level 140 mmol/L Potassium Level 4.0 mmol/L Chloride Level 108 mmol/L Carbon Dioxide Level 25 mmol/L Anion Gap 7.0 mmol/L Blood Urea Nitrogen 59 mg/dl Creatinine 2.70 mg/dl Est Creatinine Clear Calc Drug Dose 24.1 ml/min Estimated GFR () 23.5 Estimated GFR (Non- 20.3 BUN/Creatinine Ratio 21.8 Random Glucose 94 mg/dl Calcium Level 7.7 mg/dl Magnesium Level 2.1 mg/dl Test 05/17/17 16:20 Bedside Glucose 141 mg/dl Assessment & Plan 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 -has known recurrent ascites requiring repeated paracentesis -Liver biopsy in 2013:significant portal and periportal fibrosis -US showed moderate to large volume of ascites; S/P ultrasound-guided paracentesis with removal of approximately 11.5 liters of ascitic fluid on 05/14 -no signs suggestive of SBP, will hold off on IV Abx -resumed diuretics, tolerating without difficulty -BP improved -continued on Rifaximin as well -order for a repeat paracentesis today, however US revealed there was not a significant amount of fluid to drain -consulted Surgery for Paracentesis site leakage, s/p dermabond, leak present but has decreased -discussed Palliative care consult given recurrent admissions and progressive deterioration of renal function and recurrent ascites and patient is agreeable HYPOTENSION: -following paracentesis -gentle IV fluids PRN -IV albumin Q6H initially now TID, today decreased to twice -No signs of encephalopathy -continued on midodrine -asymptomatic CKD STAGE IV: -Cr is at baseline in 2.5-2.9 range -monitor -avoid nephrotoxins -albumin before and after paracentesis Abnormal UA: -likely contaminated sample, 3 different organisms present on urine culture -denies Urinary symptoms DM TYPE II: -last HbA1c: 5.8 in Mar 2017 -Correction scale insulin + Lantus -monitor BSG PRIOR HX OF RECURRENT C DIFF: -denies diarrhea presently SSS S/P PACEMAKER PLACEMENT: -outpatient pacemaker interrogation as scheduled HX OF HOCM: s/p myomectomy NON-ISCHEMIC CM -continue home medications -denies any related symptoms at this time 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 -CBC at baseline -Not on any treatment currently -monitor PAROXYSMAL AFIB: -continue Metoprolol for rate control -Asymptomatic -Not on chronic anticoagulation due to above COPD: -not in exacerbation CARLITA: -Continue CPAP QHS HX OF RECURRENT BLADDER CANCER: -S/P resection, limited TURB -Follows with Urology as outpatient Current Inpatient Medications: Current Inpatient Medications Medications (Trade) Dose Ordered Sig/Gin Route Start Time Stop Time Status Last Admin Dose Admin Promethazine HCl 12.5 mg/Sodium Chloride 50.5 ml @ 204 mls/hr Q6H PRN IV 05/14/17 14:30 06/13/17 14:29 Insulin Aspart (novoLOG ASPART) SLIDING SCALE If C... ACHS SC 05/14/17 16:00 06/13/17 15:59 05/17/17 11:53 4 UNITS Glucose (Glucose 40% Gel) 15-30 GRAMS 15 GRAMS... UD PRN PO 05/14/17 14:45 06/13/17 14:44 Glucose (Glucose Chew Tab) 4-8 Tablets 4 Tabl... UD PRN PO 05/14/17 14:45 06/13/17 14:44 Dextrose (Dextrose 50% 50ML Syringe) 25-50ML OF 50% DW IV FOR... UD PRN IV 05/14/17 14:45 06/13/17 14:44 Glucagon (Glucagon Inj) 1 mg UD PRN SQ 05/14/17 14:45 06/13/17 14:44 Folic Acid (Folvite Tab) 1 mg DAILY PO 05/15/17 09:00 06/14/17 08:59 05/17/17 07:57 1 MG Insulin Glargine (Lantus Solostar Pen) 14 units HS SQ 05/14/17 21:00 06/13/17 20:59 05/16/17 21:49 14 UNITS Metoprolol Succinate (Toprol Xl Tab) 12.5 mg DAILY PO 05/15/17 09:00 06/14/17 08:59 05/17/17 08:01 12.5 MG Nitroglycerin (Nitrostat Tab) 0.4 mg UD PRN UT 05/14/17 14:45 06/13/17 14:44 Rifaximin (Xifaxan Tab) 550 mg BID PO 05/14/17 21:00 06/13/17 20:59 05/17/17 07:52 550 MG Ferrous Sulfate (Feosol Tab) 325 mg DAILY PO 05/15/17 09:00 06/14/17 08:59 05/17/17 07:58 325 MG Levalbuterol (Xopenex 0.63 Mg/ 3 Ml Neb) 0.63 mg Q6R PRN INH 05/14/17 16:45 06/13/17 16:44 Furosemide (Lasix Tab) 40 mg BID17 PO 05/15/17 17:00 06/14/17 16:59 05/17/17 07:58 40 MG Spironolactone (Aldactone Tab) 50 mg QAM PO 05/16/17 09:00 06/15/17 08:59 05/17/17 07:57 50 MG Midodrine (Proamatine Tab) 5 mg TID@0700,1200,1700 PO 05/17/17 17:00 06/16/17 16:59
[2017-05-17] MEDS: MIDODRINE 10 MG TAB PO SCH (18:44)
[2017-05-17] MEDS: INSULIN GLARGINE SOLOSTAR 100 UNITS/ML 3 ML PEN SQ SCH (22:05)
[2017-05-18 04:31] VITALS: BP 92/50; PULSE 65; TEMP 36.5; O2SAT 100
[2017-05-18 07:15] VITALS: BP 90/57; PULSE 69; TEMP 36.4; O2SAT 98
[2017-05-18] MEDS: MIDODRINE 10 MG TAB PO SCH ×2 (07:15→12:03)
[2017-05-18] MEDS: FERROUS SULFATE 325 MG TAB PO SCH (08:23)
[2017-05-18] MEDS: FUROSEMIDE 40 MG TAB PO SCH (08:23)
[2017-05-18] MEDS: METOPROLOL SUCC 25MG EXT REL TAB PO SCH (08:25)
[2017-05-18] MEDS: SPIRONOLACTONE 25 MG TAB PO SCH (08:25)
[2017-05-18] MEDS: RIFAXIMIN TAB 550 MG TAB PO SCH (08:26)
[2017-05-18] MEDS: INSULIN ASPART 100 UNITS/ML 3 ML PEN SC SCH ×2 (08:30→12:08)
--- NOTE | 2017-05-18 10:57 | Surgery Progress Note ---
Surgery Progress Note Date of Service May 18, 2017. Subjective 87-year-old male with history of ascites status post paracentesis several days ago, surgery consulted for leaking from paracentesis site. Dermabond was applied to the wound a few days ago, the drainage has decreased but is still persistent. Ultrasound yesterday showed no significant drainable ascites. Objective Vital Signs: Date Time Temp Pulse Resp B/P (MAP) Pulse Ox O2 Delivery O2 Flow Rate FiO2 05/18/17 07:36 Room Air 05/18/17 07:15 36.4 69 16 90/57 (68) 98 Room Air 05/18/17 04:31 36.5 65 19 92/50 (64) 100 BiPAP 05/18/17 04:00 Room Air CPAP 05/18/17 00:00 Room Air CPAP 05/17/17 22:51 36.5 81 18 91/61 (71) 98 05/17/17 22:12 63 98 2.0 05/17/17 20:00 Room Air 05/17/17 19:45 36.3 81 18 95/55 (68) 99 Room Air 05/17/17 16:00 98 Room Air 05/17/17 15:30 36.2 65 18 110/67 (81) 98 Room Air 05/17/17 14:19 36.3 67 18 89/59 (69) 98 Room Air 05/17/17 13:41 67 90/50 (63) 05/17/17 12:00 Room Air 05/17/17 11:39 36.4 74 16 86/55 (65) 99 Room Air 05/17/17 11:34 36.4 107 22 97/58 (71) 95 Room Air Laboratory Results: Results Past 24 Hours Test 05/17/17 11:18 05/17/17 16:20 05/17/17 20:15 05/18/17 07:49 Range/Units Bedside Glucose 159 141 116 81 70-99 mg/dl Assessment & Plan 87-year-old male with poorly controlled ascites status post paracentesis with continued drainage from access site. This appears to be slowing but is not completely stopped. Recommendation: Continue optimizing medical management of ascites Paracentesis access site leaks typically resolve over several days with adequate management of the ascites. Dermabond can sometimes help, however placing a stitch can irritate friable tissue and can lead to infection or worsen the leak. Surgery will follow peripherally
--- NOTE | 2017-05-18 11:08 | Palliative Care Consultation ---
Consultation Date of Consultation: May 18, 2017. Requesting Physician: Dr. Mcgee Attending Physician: Dr. Mcgee Reason for Consultation: Goals of care History of Present Illness This 87 year old male patient with PMH SHANE, recurrent ascites requiring frequent paracenteses, and others listed below presented to the ED a few days ago with c/o leakage from last abdominal drainage site. Has had multiple readmissions for the recurrent ascites recently. Had 11.5L drained from abdomen on 05/14. They attempted another paracentesis yesterday, could not drain anything. Ostomy bag is applied to the leaking drainage site and continues to drain yellow fluid. Patient was seen a couple admissions ago by palliative care , and I am seeing him again in consult today to discuss goals of care. I met with the patient in room 279-1. He is sitting at side of bed, feeling well today without pain or SOB. States he feels better since coming to the hospital as he does become dyspneic on exertion when his abdomen is full. Patient is back to his baseline functional status of being able to ambulate with assistive device and basically be independent with activities. He is from [facility] and will return there today. His goal remains to continue having paracenteses done. He does not feel he is to the point of wanting hospice or to not have abdomen drained for comfort. He could not recall if he was having scheduled outpatient paracenteses. He again states that once he feels he is truly end-stage, he would want to just be made comfortable and would be okay with hospice care at that point. His daughter, Rupinder, helps him make decisions. She works and will not be in today so POLST form cannot be completed. Has advance directive naming daughter, Rupinder Mensah, as his POA. Past Medical/Surgical History Medical History: Anemia Ascites CKD COPD DM type 2 Dyslipidemia History of ankle fracture History of bladder cancer Hypertrophic cardiomyopathy Myelodysplastic syndrome Paroxysmal atrial fibrillation Sinoatrial node dysfunction Sleep apnea, obstructive Permanent Comment: CPAP Thrombocytopenia Surgical Problems: Status post cardiac pacemaker procedure Status post myomectomy Social History Smoking Status: Former Smoker History of Alcohol Use: No Drug Use: none Marital Status: Occupation Status: unemployed Review of Systems Constitutional: No fever, No chills, No weakness ENT: No trouble swallowing Respiratory: + dyspnea on exertion, No cough, No shortness of breath, No dyspnea at rest Cardiac: + edema, No chest pain Abdomen: No pain, No nausea, No vomiting Neurologic: + problem reported (some mild forgetfulness) Psychiatric: No depression symptoms, No anxiety Allergies Coded Allergies: Propranolol (Verified Allergy, Unknown, 05/14/17) Codeine (Verified Adverse Reaction, Mild, NOTED "DOESNT TOLERATE WELL" , 05/14/17) Medications Current Inpatient Medications Medications (Trade) Dose Ordered Sig/Gin Route Start Time Stop Time Status Last Admin Dose Admin Promethazine HCl 12.5 mg/Sodium Chloride 50.5 ml @ 204 mls/hr Q6H PRN IV 05/14/17 14:30 06/13/17 14:29 Insulin Aspart (novoLOG ASPART) SLIDING SCALE If C... ACHS SC 05/14/17 16:00 06/13/17 15:59 05/18/17 08:30 3 UNITS Glucose (Glucose 40% Gel) 15-30 GRAMS 15 GRAMS... UD PRN PO 05/14/17 14:45 06/13/17 14:44 Glucose (Glucose Chew Tab) 4-8 Tablets 4 Tabl... UD PRN PO 05/14/17 14:45 06/13/17 14:44 Dextrose (Dextrose 50% 50ML Syringe) 25-50ML OF 50% DW IV FOR... UD PRN IV 05/14/17 14:45 06/13/17 14:44 Glucagon (Glucagon Inj) 1 mg UD PRN SQ 05/14/17 14:45 06/13/17 14:44 Folic Acid (Folvite Tab) 1 mg DAILY PO 05/15/17 09:00 06/14/17 08:59 05/18/17 08:24 1 MG Insulin Glargine (Lantus Solostar Pen) 14 units HS SQ 05/14/17 21:00 06/13/17 20:59 05/17/17 22:05 14 UNITS Metoprolol Succinate (Toprol Xl Tab) 12.5 mg DAILY PO 05/15/17 09:00 06/14/17 08:59 05/17/17 08:01 12.5 MG Nitroglycerin (Nitrostat Tab) 0.4 mg UD PRN UT 05/14/17 14:45 06/13/17 14:44 Rifaximin (Xifaxan Tab) 550 mg BID PO 05/14/17 21:00 06/13/17 20:59 05/18/17 08:26 550 MG Ferrous Sulfate (Feosol Tab) 325 mg DAILY PO 05/15/17 09:00 06/14/17 08:59 05/18/17 08:23 325 MG Levalbuterol (Xopenex 0.63 Mg/ 3 Ml Neb) 0.63 mg Q6R PRN INH 05/14/17 16:45 06/13/17 16:44 Furosemide (Lasix Tab) 40 mg BID17 PO 05/15/17 17:00 06/14/17 16:59 05/18/17 08:23 40 MG Spironolactone (Aldactone Tab) 50 mg QAM PO 05/16/17 09:00 06/15/17 08:59 05/18/17 08:25 50 MG Midodrine (Proamatine Tab) 5 mg TID@0700,1200,1700 PO 05/17/17 17:00 06/16/17 16:59 05/18/17 07:15 5 MG Physical Exam Date Time Temp Pulse Resp B/P (MAP) Pulse Ox O2 Delivery O2 Flow Rate FiO2 05/18/17 07:36 Room Air 05/18/17 07:15 36.4 69 16 90/57 (68) 98 Room Air 05/18/17 04:31 36.5 65 19 92/50 (64) 100 BiPAP 05/18/17 04:00 Room Air CPAP 05/18/17 00:00 Room Air CPAP 05/17/17 22:51 36.5 81 18 91/61 (71) 98 05/17/17 22:12 63 98 2.0 05/17/17 20:00 Room Air 05/17/17 19:45 36.3 81 18 95/55 (68) 99 Room Air 05/17/17 16:00 98 Room Air 05/17/17 15:30 36.2 65 18 110/67 (81) 98 Room Air 05/17/17 14:19 36.3 67 18 89/59 (69) 98 Room Air 05/17/17 13:41 67 90/50 (63) 05/17/17 12:00 Room Air 05/17/17 11:39 36.4 74 16 86/55 (65) 99 Room Air 05/17/17 11:34 36.4 107 22 97/58 (71) 95 Room Air General Appearance: no apparent distress, + pertinent finding (chronically ill and elderly appearing) ENT: hearing grossly normal Neck: supple, no JVD Respiratory: lungs clear, no respiratory distress, no accessory muscle use Cardiovascular: regular rate, rhythm, + pertinent finding (+2 pitting edema to bilateral lower extremities) Abdomen: normal bowel sounds, non tender, soft, + distended, + pertinent finding (right sided ostomy appliance attached) Neurologic/Psychiatric: alert, normal mood/affect, oriented x 3 (slightly forgetful) Skin: + pertinent finding (darkened skin on bilateral lower extremties likely from chronic vascular insufficiency) Laboratory Results Last 24 Hours Test 05/17/17 11:18 05/17/17 16:20 05/17/17 20:15 05/18/17 07:49 Bedside Glucose 159 mg/dl 141 mg/dl 116 mg/dl 81 mg/dl Assessment & Plan Problem list: DÍAZ Abdominal ascites, recurrent SHANE CKD stage IV Hypotension Goals of care (Z51.5) Palliative care recs: -Patient is level 5/DNR. -Daughter, Rupinder Mensah, is POA. She is working and not available to come in today before patient leaves in order to do POLST form. Patient is awake and oriented, but is somewhat forgetful and does not want to sign anything without daughter. -I have spoke with patient and his daughter in the past about goals of care. They are realistic in the fact that he is 87 with end stage liver disease as well as other comorbidities. They do not want full aggressive/invasive treatment , but are okay with patient continuing to have paracenteses done for his comfort. -Should probably have outpatient paracenteses scheduled. Could be done by his PCP as patient is returning to his personal [facility] today. This would hopefully help avoid hospital readmissions. -Patient did state that once he truly feels that he does not improve by having medical intervention such as having his abdomen drained, he would be okay with just being made comfortable and pursuing hospice/comfort care. Thank you kindly for this consult. Please contact me with any further palliative care needs.
[2017-05-18 11:38] VITALS: BP 96/57; PULSE 62; TEMP 36.3; O2SAT 100
--- NOTE | 2017-05-18 12:41 | Discharge Instructions ---
Discharge Instructions Date of Service May 18, 2017. Admission Reason for Admission: Ascites Discharge Discharge Diagnosis / Problem: Ascites, hypotension Discharge Goals Goal(s): Therapeutic intervention Activity Recommendations Activity Level: Up Ad Amberly Therapies: Physical Therapy, Occupational Therapy . Additional Information Patient informed of condition: Yes Advance Directives: Yes DNR: Yes Level of Care: Other Communicable Disease: No Prognosis: Stable Domingo Catheter: No Instructions / Follow-Up Instructions / Follow-Up Please see Dr. Alonzo on May 24 3:05PM for hospital follow up and also to have standing order for outpatient paracentesis scheduled Please follow up with Gastroenterology as scheduled Current Hospital Diet Patient's current hospital diet: Diabetes Type 2 Diet, Renal Diet Discharge Diet Recommended Diet: Low Sodium Diet (2gm Na), Diabetes Type 2 Diet, Renal Diet Pending Studies Studies pending at discharge: no Physician Orders On Transfer Weigh: daily POLST Discussion: without POLST completion Laboratory Results Hemoglobin A1c Test 04/14/17 05:25 Range/Units Estimated Average Glucose 120 mg/dl Hemoglobin A1c 5.8 H 4.5-5.6 % Medical Emergencies . Who to Call and When: Medical Emergencies: If at any time you feel your situation is an emergency, please call 911 immediately. . Non-Emergent Contact Non-Emergency issues call your: Primary Care Provider, Levee Superintendent . . "Provider Documentation" section prepared by Naye Mcgee. . Core Measure Problem Core Measures: None
[2017-05-18 13:10] VITALS: BP 96/57; PULSE 62; TEMP 36.3; O2SAT 100
[2017-05-18 13:44] VITALS: BP 96/57; PULSE 62; TEMP 36.3; O2SAT 100
--- NOTE | 2017-06-01 20:28 | Discharge Summary ---
Discharge Summary Date of Service Jun 01, 2017. Discharge Summary Admission Date: May 14, 2017 at 14:27 Discharge Date: May 18, 2017 Discharge Disposition: Personal care Principal Diagnosis: Hypotension, ascites Procedures: paracentesis Medication Reconciliation Continued Medications: Ferrous Sulfate (Iron) 325 Mg Tab 325 MG PO DAILY Folic Acid (Folic Acid) 1 Mg Tab 1 MG PO DAILY Furosemide (Lasix) 40 Mg Tab 40 MG PO BID17, TAB Insulin Aspart (Novolog) 100 Units/Ml Inj SQ ACHS SLIDING SCALE 1 UNIT FOR EVERY 20 MG/DL INCREASE IN GLUCOSE ABOVE 150 Insulin Glargine (Lantus Solostar) 100 Unit/Ml Inj 14 UNITS SQ HS Metoprolol Succ (Toprol Xl) (Toprol-Xl) 25 Mg Tabcr 12.5 MG PO DAILY, TAB Midodrine (Midodrine HCl) 2.5 Mg Tab 2.5 MG PO BID Nitroglycerin (Nitrostat) 0.4 Mg Tab 0.4 MG UT UD PRN for Chest Pain Ondansetron Hcl (Zofran) 4 Mg Tab 4 MG PO Q6H PRN for Nausea, TAB Rifaximin (Xifaxan) 550 Mg Tab 550 MG PO BID, TAB Spironolactone (Aldactone) 25 Mg Tab 50 MG PO QAM, TAB Admission Information HPI (per Admitting provider): Patient is an 87 yr male with PMH of SHANE cirrhosis and recurrent ascites, recurrent C diff, Sick sinus syndrome s/p permanent pacemaker placement, H/O HOCM s/p myomectomy, Non ischemic cardiomyopathy, COPD, CKD stage 4-5, Chronic thrombocytopenia, 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, P.afib, Sleep Apnea, DM II and other comorbidities presents with history of worsening abdominal distention and SOB on exertion since 3-4 days duration. Patient had recurrent paracentesis and multiple admissions in the past. Abdominal ultrasound showed moderate to large volume of ascites and he got ultrasound-guided paracentesis with removal of approximately 11.5 liters of ascitic fluid while in ED. After the paracentesis patient was hypotensive and was given IV fluids and albumin but patient's blood pressure has not improved. Patient denies any history of chest pain, dizziness, cough, fever, chills, headache, weakness, nausea, vomiting, abdominal pain, diarrhea, change in appetite, dysuria. Physical Exam (per Admitting): General Appearance: WD/WN, no apparent distress, + pertinent finding ( Chronic ill appearing) Head: normocephalic, atraumatic Eyes: normal inspection, PERRL, EOMI, sclerae normal ENT: normal ENT inspection, hearing grossly normal Neck: supple, trachea midline Respiratory/Chest: chest non-tender, lungs clear, normal breath sounds, no respiratory distress, no accessory muscle use Cardiovascular: regular rate, rhythm, no murmur, + pertinent finding ( Chronic b/l edema) Abdomen/GI: normal bowel sounds, non tender, soft, + pertinent finding ( Distended) Back: normal inspection Extremities/Musculoskelatal: normal inspection, + pedal edema Neurologic/Psych: nurse educator II-XII nml as tested, no motor/sensory deficits, alert , normal mood/affect, oriented x 3 Skin: normal color, warm/dry, + pertinent finding (Multiple telangiectesia ) Hospital Course 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 -has known recurrent ascites requiring repeated paracentesis -Liver biopsy in 2013:significant portal and periportal fibrosis -US showed moderate to large volume of ascites; S/P ultrasound-guided paracentesis with removal of approximately 11.5 liters of ascitic fluid on 05/14 -no signs suggestive of SBP, will hold off on IV Abx -resumed diuretics, tolerating without difficulty -BP improved -continued on Rifaximin as well -order for a repeat paracentesis, however US revealed there was not a significant amount of fluid to drain -consulted Surgery for Paracentesis site leakage, s/p dermabond, leak present but has decreased -discussed Palliative care consult given recurrent admissions and progressive deterioration of renal function and recurrent ascites and patient is agreeable but not interested in hospice at this time. HYPOTENSION: -following paracentesis -gentle IV fluids PRN -IV albumin Q6H initially, then decreased and now off albumin -No signs of encephalopathy -continued on midodrine -asymptomatic CKD STAGE IV: -Cr is at baseline in 2.5-2.9 range -monitor -avoid nephrotoxins -albumin before and after paracentesis Abnormal UA: -likely contaminated sample, 3 different organisms present on urine culture -denies Urinary symptoms DM TYPE II: -last HbA1c: 5.8 in Mar 2017 -Correction scale insulin + Lantus -monitor BSG PRIOR HX OF RECURRENT C DIFF: -denies diarrhea presently SSS S/P PACEMAKER PLACEMENT: -outpatient pacemaker interrogation as scheduled HX OF HOCM: s/p myomectomy NON-ISCHEMIC CM -continue home medications -denies any related symptoms at this time 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 -CBC at baseline -Not on any treatment currently -monitor PAROXYSMAL AFIB: -continue Metoprolol for rate control -Asymptomatic -Not on chronic anticoagulation due to above COPD: -not in exacerbation CARLITA: -Continue CPAP QHS HX OF RECURRENT BLADDER CANCER: -S/P resection, limited TURB -Follows with Urology as outpatient PHYSICAL EXAM: GENERAL: Patient is in no acute distress. HEENT: No acute trauma, normocephalic atraumatic, mucous membranes moist, no nasal congestion, no scleral icterus. Conjunctivae clear NECK: No stridor, trachea is midline. LUNGS: Clear to auscultation bilaterally, no wheeze, no rhonchi, breath sounds equal. HEART: Without murmurs gallops or rubs, regular rate and rhythm. ABDOMEN: Soft, nontender, bowel sounds positive, +distension and ascites, unable to palpate liver/spleen; ostomy bag with small amount of leaked fluid EXTREMITIES: No cyanosis or edema NEUROLOGIC: Oriented x 3, no acute motor or sensory deficits, no focal weakness. SKIN: No rash, no jaundice, no diaphoresis Total time spent on discharge = 39 This includes examination of the patient, discharge planning, medication reconciliation, and communication with other providers. Discharge Instructions see patient instructions
[2017-06-12] MEDS ORDERED: ZRX5 PO (12:01)
== END 2017-05-18 14:28 | disposition home or self-care (01) | DRG 442 ==
LOC: EDBD 08:04 → C.EDA 08:05 → C.MED 14:27 → ENRESERV 14:48 → C.MED 15:21
PROVIDERS: ADMIT Internal Medicine; ATTEND Internal Medicine
PROC: 0W9G3ZZ Drainage of Peritoneal Cavity, Percutaneous Approach (ICD-10-PCS; principal; 2017-05-14)
PROC: 0HQ7XZZ Repair Abdomen Skin, External Approach (ICD-10-PCS; 2017-05-14)
DX: K72.90 Hepatic failure, unspecified without coma (principal); R18.8 Other ascites; D61.818 Other pancytopenia; I42.9 Cardiomyopathy, unspecified; N18.5 Chronic kidney disease, stage 5; K75.81 Nonalcoholic steatohepatitis (NASH); I95.9 Hypotension, unspecified; Y84.4 Aspiration of fluid as the cause of abnormal reaction of the patient, or of later complication, without mention of misadventure at the time of the procedure; L76.82 Other postprocedural complications of skin and subcutaneous tissue; Y92.239 Unspecified place in hospital as the place of occurrence of the external cause; K74.60 Unspecified cirrhosis of liver; R82.90 Unspecified abnormal findings in urine; D69.6 Thrombocytopenia, unspecified; D46.9 Myelodysplastic syndrome, unspecified; I48.0 Paroxysmal atrial fibrillation; J44.9 Chronic obstructive pulmonary disease, unspecified; E11.22 Type 2 diabetes mellitus with diabetic chronic kidney disease; G47.33 Obstructive sleep apnea (adult) (pediatric); Z66 Do not resuscitate; Z95.0 Presence of cardiac pacemaker; Z99.89 Dependence on other enabling machines and devices; Z87.891 Personal history of nicotine dependence; Z79.4 Long term (current) use of insulin; Z79.2 Long term (current) use of antibiotics; Z79.899 Other long term (current) drug therapy

== ENCOUNTER 2017-06-02 12:00 | Inpatient (IN) | payer OTHER ==
[~2017-06-02] VITALS: Ht 182.9 cm; Wt 94.9 kg
[~2017-06-02 12:00] MED LIST changes: -MCRK20 PO; +PRMT25 PO; +RIFA550T2 PO; +SPIR25TA PO; -SPR25 PO; -VNCS125 PO; -XFX550 PO
[2017-06-02 12:55] LABS: HEMOGLOBIN 9.1 g/dL (14.0-18.0); MEAN CELL VOLUME 88.6 fL (80-100); MEAN CORPUSCULAR HEMOGLOBIN 28.8 pg (25-34); MEAN CORPUSCULAR HGB CONC 32.5 g/dl (32-36); RED CELL DISTRIBUTION WIDTH CV 16.8 % (11.5-14.5); RED CELL DISTRIBUTION WIDTH SD 55.3 fL (36.4-46.3); WHITE BLOOD COUNT 3.07 K/uL (4.8-10.8)
[2017-06-02 13:03] LABS: MEAN PLATELET VOLUME 9.3 fL (7.4-10.4); PLATELET COUNT 43 K/uL (130-400)
[2017-06-02 13:06] LABS: INR 1.2 (0.9-1.1); PTT PATIENT 28.8 SECONDS (21.0-31.0)
[2017-06-02 13:13] LABS: ALBUMIN 2.7 gm/dl (3.4-5.0); CALCIUM 8.3 mg/dl (8.5-10.1); CREATININE 3.03 mg/dl (0.60-1.40); POTASSIUM 3.9 mmol/L (3.5-5.1)
[2017-06-02 13:16] LABS: TOTAL PROTEIN 6.1 gm/dl (6.4-8.2)
[2017-06-02 13:40] LABS: BASO % 0.3 %; BASO ABS # 0.01 K/uL (0-0.2); EOS ABS # 0.06 K/uL (0-0.5); IG# 0.01 K/uL (0.00-0.02); LYMPH % 11.4 %; LYMPH ABS # 0.35 K/uL (1.2-3.4); MONO % 9.4 %; MONO ABS # 0.29 K/uL (0.11-0.59); NEUT % 76.6 %; NEUT ABS # 2.35 K/uL (1.4-6.5)
[2017-06-02] MEDS ORDERED: NITROGLYCERIN 0.4 MG SL PER TAB CHARGE UT PRN (14:15)
[2017-06-02] MEDS ORDERED: ONDANSETRON INJ 2 MG/ML 2 ML VIAL IV PRN (14:15)
[2017-06-02] MEDS ORDERED: ONDANSETRON 4 MG TAB PO PRN (14:15)
[2017-06-02] MEDS ORDERED: FURO80TA63 PO (14:27)
[2017-06-02] MEDS ORDERED: GLUCAGON FOR INJ 1 MG VIAL SQ PRN (14:30)
[2017-06-02] MEDS ORDERED: GLUCOSE 10 TABS/TUBE PO PRN (14:30)
[2017-06-02] MEDS ORDERED: GLUCOSE 40% GEL 15 GM TUBE PO PRN (14:30)
[2017-06-02] MEDS ORDERED: DEXTROSE 50% 50 ML SYR IV PRN (14:30)
[2017-06-02] MEDS ORDERED: PHARMACY GLYCEMIC MGMT CONSULT PRN (14:35)
--- NOTE | 2017-06-02 14:44 | History and Physical ---
History & Physical Date & Time of Service: Jun 02, 2017 at 14:31 Chief Complaint: EDEMA Primary Care Physician: Anastacio Garza M.D. History of Present Illness Source: patient, clinic records, hospital records This is an 87 year old male with history of SHANE cirrhosis and recurrent ascites , CKD stage IV, DM2, COPD, Paroxysmal A. Fib presents with swelling of the lower extremities and abdomen. He was sent over from personal long term - nursing stated that his lower extremities and abdomen were getting larger and more filled with fluid. Patient has had recurrent hospitalizations due to ascites and SHANE cirrhosis. Currently, he is denying any symptoms including fevers/chills, denies diarrhea/nausea/vomiting; denies abdominal pain. Past Medical/Surgical History Medical Problems: (1) Anemia Status: Chronic (2) Ascites Status: Chronic (3) CKD (chronic kidney disease), stage IV Status: Chronic (4) COPD (chronic obstructive pulmonary disease) Status: Chronic (5) DM (diabetes mellitus), type 2 with renal complications Status: Chronic (6) Dyslipidemia Status: Chronic (7) History of ankle fracture Status: Chronic (8) History of bladder cancer Status: Chronic (9) Hypertrophic cardiomyopathy Status: Chronic (10) Myelodysplastic syndrome Status: Chronic (11) Paroxysmal atrial fibrillation Status: Chronic (12) Sinoatrial node dysfunction Status: Chronic (13) Sleep apnea, obstructive Permanent Comment: CPAP Status: Chronic (14) Thrombocytopenia Status: Chronic Surgical Problems: (1) Status post cardiac pacemaker procedure Status: Chronic (2) Status post myomectomy Permanent Comment: for hypertrophic cardiomyopathy Status: Chronic Family History FHx: heart disease Social History Smoking Status: Never Smoker Drug Use: none Marital Status: Occupational Status: unemployed Immunizations History of Influenza Vaccine: Yes History of Tetanus Vaccine?: Yes History of Pneumococcal: Yes History of Hepatitis B Vaccine: Unknown Multi-Drug Resistant Organisms History of MDRO: No Allergies Coded Allergies: Propranolol (Verified Allergy, Unknown, 06/02/17) Codeine (Verified Adverse Reaction, Mild, NOTED "DOESNT TOLERATE WELL" , 06/02/17) Home Medications Scheduled Ferrous Sulfate (Iron), 325 MG PO DAILY Folic Acid (Folic Acid), 1 MG PO DAILY Furosemide (Lasix), 40 MG PO BID Insulin Aspart (Novolog), SQ ACHS Insulin Glargine (Lantus Solostar), 14 UNITS SQ HS Metoprolol Succ (Toprol Xl) (Toprol-Xl), 12.5 MG PO DAILY Midodrine (Midodrine HCl), 2.5 MG PO BID Rifaximin (Xifaxan), 550 MG PO BID Spironolactone (Aldactone), 50 MG PO QAM Scheduled PRN Nitroglycerin (Nitrostat), 0.4 MG UT UD PRN for Chest Pain Ondansetron Hcl (Zofran), 4 MG PO Q6H PRN for Nausea Review of Systems Constitutional: No fever, No chills Respiratory: No cough, No sputum, No shortness of breath, No dyspnea on exertion, No dyspnea at rest, No hemoptysis Cardiovascular: + edema, No chest pain, No palpitations Abdomen: No pain, No nausea, No vomiting, No diarrhea, No constipation, No GI bleeding Musculoskeletal: No joint pain, No muscle pain Genitourinary - Male: No hematuria, No dysuria, No urinary frequency, No urinary urgency Neurologic: No weakness, No numbness/tingling, No vertigo Psychiatric: No depression symptoms, No anxiety, No insomnia Endocrine: No fatigue Hematologic / Lymphatic: No abnormal bleeding/bruising Integumentary: No rash Allergic / Immunologic: No environmental allergies, No seasonal allergies Physical Exam Vital Signs Date Time Temp Pulse Resp B/P (MAP) Pulse Ox O2 Delivery O2 Flow Rate FiO2 06/02/17 12:24 36.6 68 18 105/64 100 Room Air 06/02/17 12:12 80 General Appearance: no apparent distress, + pertinent finding (resting tremors) Head: normocephalic, atraumatic Eyes: normal inspection ENT: + pertinent finding (hard of hearing) Respiratory/Chest: no respiratory distress, no accessory muscle use, + decreased breath sounds Cardiovascular: regular rate, rhythm, no murmur Abdomen/GI: non tender, + distended (distended, firm abdomen) Extremities/Musculoskelatal: + swelling, + pertinent finding (+3 pitting edema b/l LE, some skin changes, non-infectious appearance) Neurologic/Psych: no motor/sensory deficits, alert, normal mood/affect, + pertinent finding (some memory issues, does not recall where he came from, but knows he was sent to the hospital due to swelling) Skin: + pertinent finding (mild jaundice) Diagnostics Laboratory Results Results Past 24 Hours Test 06/02/17 12:27 Range/Units White Blood Count 3.07 4.8-10.8 K/uL Red Blood Count 3.16 4.7-6.1 M/uL Hemoglobin 9.1 14.0-18.0 g/dL Hematocrit 28.0 42-52 % Mean Corpuscular Volume 88.6 80-100 fL Mean Corpuscular Hemoglobin 28.8 25-34 pg Mean Corpuscular Hemoglobin Concent 32.5 32-36 g/dl Platelet Count 43 130-400 K/uL Mean Platelet Volume 9.3 7.4-10.4 fL Neutrophils (%) (Auto) 76.6 % Lymphocytes (%) (Auto) 11.4 % Monocytes (%) (Auto) 9.4 % Eosinophils (%) (Auto) 2.0 % Basophils (%) (Auto) 0.3 % Neutrophils # (Auto) 2.35 1.4-6.5 K/uL Lymphocytes # (Auto) 0.35 1.2-3.4 K/uL Monocytes # (Auto) 0.29 0.11-0.59 K/uL Eosinophils # (Auto) 0.06 0-0.5 K/uL Basophils # (Auto) 0.01 0-0.2 K/uL RDW Standard Deviation 55.3 36.4-46.3 fL RDW Coefficient of Variation 16.8 11.5-14.5 % Immature Granulocyte % (Auto) 0.3 % Immature Granulocyte # (Auto) 0.01 0.00-0.02 K/uL Ovalocytes 1+ Prothrombin Time 12.3 9.0-12.0 SECONDS Prothromb Time International Ratio 1.2 0.9-1.1 Activated Partial Thromboplast Time 28.8 21.0-31.0 SECONDS Partial Thromboplastin Ratio 1.1 Sodium Level 139 136-145 mmol/L Potassium Level 3.9 3.5-5.1 mmol/L Chloride Level 109 98-107 mmol/L Carbon Dioxide Level 23 21-32 mmol/L Anion Gap 7.0 3-11 mmol/L Blood Urea Nitrogen 60 7-18 mg/dl Creatinine 3.03 0.60-1.40 mg/dl Est Creatinine Clear Calc Drug Dose 22.0 ml/min Estimated GFR () 20.4 Estimated GFR (Non- 17.6 BUN/Creatinine Ratio 19.7 10-20 Random Glucose 167 70-99 mg/dl Calcium Level 8.3 8.5-10.1 mg/dl Total Bilirubin 0.4 0.2-1 mg/dl Direct Bilirubin 0.2 0-0.2 mg/dl Aspartate Amino Transf (AST/SGOT) 41 15-37 U/L Alanine Aminotransferase (ALT/SGPT) 33 12-78 U/L Alkaline Phosphatase 116 45-117 U/L Total Protein 6.1 6.4-8.2 gm/dl Albumin 2.7 3.4-5.0 gm/dl Lipase 91 73-393 U/L Impression Assessment and Plan This is an 87 year old male with history of SHANE cirrhosis and recurrent ascites , CKD stage IV, DM2, COPD, Paroxysmal A. Fib presents with swelling of the lower extremities and abdomen. SHANE cirrhosis Recurrent Ascites recurrent ascites, recurrent hospitalizations currently, denies any symptoms associated with the ascites will give albumin and Lasix x1 for now consulted nephrology due to CKD stage IV and worsening creatinine will likely need paracentesis platelet count is < 50k will need transfusion prior to paracentesis, will check CBC in AM prior to transfusing Acute Kidney Injury superimposed on CKD stage IV likely hepatorenal syndrome creatinine up >3 today baseline is upper 2's (last time was discharged with a 2.7 giving a one time dose of albumin and Lasix to try to improve intravascular fluids nephrology consulted for further input Hx. of Myelodysplastic Syndrome Chronic Thrombocytopenia has chronic anemia due to the 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 will only transfuse if Hg < 7 due to liver cirrhosis, possible portal hypertension monitor platelets - will need platelet count > 50 for paracentesis has required platelet transfusions in the past Insulin Dependent DM2 well controlled will add Lantus 5 units BID sliding scale insulin placed Sick Sinus Syndrome s/p permanent pacemaker HTN monitor blood pressure b-noman continued for now COPD no exacerbation DVT prophylaxis SCDs - secondary to thrombocytopenia DNR VTE Prophylaxis VTE Risk Assessment Done? Y/N: Yes Risk Level: Moderate
--- NOTE | 2017-06-02 14:57 | DIAGNOSTIC IMAGING REPORT ---
CHEST ONE VIEW PORTABLE CLINICAL HISTORY: diminished breath sounds dyspnea COMPARISON STUDY: 05/14/2017 FINDINGS: Trace pleural effusion right base. Potential developing parenchymal infiltrate right base. Asymmetric components of congestive failure are potentially present. IMPRESSION: Early parenchymal infiltrate right base versus mild asymmetric components of developing congestive failure. The above report was generated using voice recognition software. It may contain grammatical, syntax or spelling errors. Electronically signed by: Anastacio Hilton M.D. 06/02/2017 2:56 PM Dictated Date/Time: 06/02/2017 2:55 PM
--- NOTE | 2017-06-02 14:59 | Pharmacy Progress Note ---
Glycemic Control Intl Consult Date of Service Jun 02, 2017. Scope Glycemic Pharmacist consulted by Dr Saleh on 06/02/17 for glycemic control and to write orders per [facility] inpatient glycemic control protocol Objective Weight (Kilograms): 110.200 Accuchecks BSG (last 24hrs): Test 06/02/17 12:27 Random Glucose 167 mg/dl (70-99) Laboratory Data (last 24hrs) Test 06/02/17 12:27 Anion Gap 7.0 mmol/L BUN/Creatinine Ratio 19.7 Blood Urea Nitrogen 60 mg/dl Creatinine 3.03 mg/dl Potassium Level 3.9 mmol/L Sodium Level 139 mmol/L White Blood Count 3.07 K/uL Red Blood Count 3.16 M/uL Hemoglobin 9.1 g/dL Hematocrit 28.0 % Mean Corpuscular Volume 88.6 fL Mean Corpuscular Hemoglobin 28.8 pg Mean Corpuscular Hemoglobin Concent 32.5 g/dl Platelet Count 43 K/uL Mean Platelet Volume 9.3 fL Neutrophils (%) (Auto) 76.6 % Lymphocytes (%) (Auto) 11.4 % Monocytes (%) (Auto) 9.4 % Eosinophils (%) (Auto) 2.0 % Basophils (%) (Auto) 0.3 % Neutrophils # (Auto) 2.35 K/uL Lymphocytes # (Auto) 0.35 K/uL Monocytes # (Auto) 0.29 K/uL Eosinophils # (Auto) 0.06 K/uL Basophils # (Auto) 0.01 K/uL HbA1c 5.8% on 04/14/17 Recent Pertinent Medications Outpatient Anti-diabetic Regimen: * Lantus 14 units SQ HS * NovoLog Correctional insulin per scale * CF = 20mg/dl/unit for BSG >150 Assessment & Plan ASSESSMENT: * 87yo T2DM male known to pharmacy from previous admissions/glycemic consults. * Pt with excellent outpatient control - possibly too tight based on age and co- morbidities. Goal A1c likely < 8% * His A1c may not be totally reliable d/t hx of cirrhosis * Typically, patient requires 30-40 units of insulin per day for adequate control per august 2016 admission. It looks like his outpatient dose has been reduced since then and A1c has dropped from 6.3--> 5.8%. * Will continue outpatient dosing on once daily at bedtime but will slightly reduce dosing based on possible changes in PO intake while admitted as compared to outpatient. * Lower dose also warranted with the addition of CR to NovoLog scale and increased Scr * Best to keep regimen 50% basal: 50% prandial --> outpatient regimen is all basal + correctional * Will continue to titrate based on BSG trends PLAN FOR INPATIENT GLYCEMIC CONTROL: * Basal insulin * Lantus 10 units SQ HS * Bolus insulin * NovoLog per scale ACHS or Q6hrs while NPO * Goal Range: Low 120 mg/dL - High 160 mg/dL * Correction Factor: 25 mg/dL/unit * Nutritional / Prandial insulin per carb ratio of 1 unit per 9 grams CHO consumed * Please note that the plan above was derived based on current level of insulin resistance and hospital stress. These recommendations are appropriate for inpatient admission only. Plan of care upon discharge will need to be reassessed to avoid potential outpatient hypo/hyperglycemia. Thank you.
[2017-06-02] MEDS: INSULIN ASPART 100 UNITS/ML 3 ML PEN SC SCH ×2 (16:00→22:06)
--- NOTE | 2017-06-02 17:14 | EMERGENCY ROOM VISIT NOTE ---
History Report prepared by Li: Nelda Aburto Under the Supervision of: Dr. Juan Marte M.D. First contact with patient: 12:02 Stated Complaint: EDEMA History of Present Illness The patient is a 87 year old male who presents to the Emergency Room with complaints of increased swelling to his abdomen and legs. The patient comes from a alf. Per EMS, the patient was sent to the ED because the alf staff noticed the patient's abdomen was more swollen than his baseline. The patient reports his abdomen feels "full" but he denies any difficulty breathing, chest pain, vomiting, urinary symptoms, or diarrhea. He has no fever or abdominal pain. He periodically has to have drainage of the fluid from his abdomen. He has had a significant weight gain since earlier this month. He apparently gained 10 pounds since the fifth. Source of History: patient, EMS Position: abdomen, leg (bilateral) Symptom Intensity: severe Quality: other (swelling) Timing: other (increasing) Associated Symptoms: No chest pain, No SOB, No vomiting, No diarrhea, No urinary symptoms Review of Systems See HPI for pertinent positives & negatives. A total of 10 systems reviewed and were otherwise negative. 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), type 2 with renal complications (7) Dyslipidemia (8) History of ankle fracture (9) History of bladder cancer (10) Hypertrophic cardiomyopathy (11) Myelodysplastic syndrome (12) Paroxysmal atrial fibrillation (13) Sinoatrial node dysfunction (14) Sleep apnea, obstructive (15) Thrombocytopenia Surgical Problems: (1) Status post cardiac pacemaker procedure (2) Status post myomectomy Family History FHx: heart disease Social History Smoking Status: Former Smoker Alcohol Use: none Drug Use: none Marital Status: Housing Status: assisted living Occupation Status: unemployed Current/Historical Medications Scheduled Ferrous Sulfate (Iron), 325 MG PO DAILY Folic Acid (Folic Acid), 1 MG PO DAILY Furosemide (Lasix), 40 MG PO BID Insulin Aspart (Novolog), SQ ACHS Insulin Glargine (Lantus Solostar), 14 UNITS SQ HS Metoprolol Succ (Toprol Xl) (Toprol-Xl), 12.5 MG PO DAILY Midodrine (Midodrine HCl), 2.5 MG PO BID Rifaximin (Xifaxan), 550 MG PO BID Spironolactone (Aldactone), 50 MG PO QAM Scheduled PRN Nitroglycerin (Nitrostat), 0.4 MG UT UD PRN for Chest Pain Ondansetron Hcl (Zofran), 4 MG PO Q6H PRN for Nausea Allergies Coded Allergies: Propranolol (Verified Allergy, Unknown, 06/02/17) Codeine (Verified Adverse Reaction, Mild, NOTED "DOESNT TOLERATE WELL" , 06/02/17) Physical Exam Vital Signs Date Time Temp Pulse Resp B/P (MAP) Pulse Ox O2 Delivery O2 Flow Rate FiO2 06/02/17 16:30 63 16 106/66 94 06/02/17 16:00 61 17 106/66 98 06/02/17 15:30 64 17 106/69 90 06/02/17 15:00 72 19 121/73 90 06/02/17 14:30 68 18 103/60 93 06/02/17 13:30 66 20 110/62 96 Room Air 06/02/17 12:24 36.6 68 18 105/64 100 Room Air 06/02/17 12:12 80 Physical Exam Constitutional: Vital signs reviewed. Eyes: Pupils are equal round reactive to light. Conjunctiva are noninjected. ENT: Pharynx is clear without erythema or exudate. Mucous membranes are moist. Neck supple without meningeal signs. Respiratory: Clear to auscultation bilaterally. Breath sounds are equal bilaterally. Cardiovascular: Regular rate and rhythm. No rubs or gallops. GI: Distended abdomen consistent with ascites, no tenderness, umbilical hernia easily reducible. Bowel sounds present. Musculoskeletal: Bilateral lower extremity edema, no tenderness. Integumentary: No cyanosis. Neurological: The patient is awake and alert. No focal deficits. Psychiatric: Normal affect. Medical Decision & Procedures Laboratory Results 06/02/17 12:27 Red Blood Count 3.16, Mean Corpuscular Volume 88.6, Mean Corpuscular Hemoglobin 28.8, Mean Corpuscular Hemoglobin Concent 32.5, Mean Platelet Volume 9.3, Neutrophils (%) (Auto) 76.6, Lymphocytes (%) (Auto) 11.4, Monocytes (%) (Auto) 9.4, Eosinophils (%) (Auto) 2.0, Basophils (%) (Auto) 0.3, Neutrophils # (Auto) 2.35, Lymphocytes # (Auto) 0.35, Monocytes # (Auto) 0.29, Eosinophils # (Auto) 0.06, Basophils # (Auto) 0.01 06/02/17 12:27 Test 06/02/17 12:27 White Blood Count 3.07 K/uL (4.8-10.8) Red Blood Count 3.16 M/uL (4.7-6.1) Hemoglobin 9.1 g/dL (14.0-18.0) Hematocrit 28.0 % (42-52) Mean Corpuscular Volume 88.6 fL (80-100) Mean Corpuscular Hemoglobin 28.8 pg (25-34) Mean Corpuscular Hemoglobin Concent 32.5 g/dl (32-36) Platelet Count 43 K/uL (130-400) Mean Platelet Volume 9.3 fL (7.4-10.4) Neutrophils (%) (Auto) 76.6 % Lymphocytes (%) (Auto) 11.4 % Monocytes (%) (Auto) 9.4 % Eosinophils (%) (Auto) 2.0 % Basophils (%) (Auto) 0.3 % Neutrophils # (Auto) 2.35 K/uL (1.4-6.5) Lymphocytes # (Auto) 0.35 K/uL (1.2-3.4) Monocytes # (Auto) 0.29 K/uL (0.11-0.59) Eosinophils # (Auto) 0.06 K/uL (0-0.5) Basophils # (Auto) 0.01 K/uL (0-0.2) RDW Standard Deviation 55.3 fL (36.4-46.3) RDW Coefficient of Variation 16.8 % (11.5-14.5) Immature Granulocyte % (Auto) 0.3 % Immature Granulocyte # (Auto) 0.01 K/uL (0.00-0.02) Ovalocytes 1+ Prothrombin Time 12.3 SECONDS (9.0-12.0) Prothromb Time International Ratio 1.2 (0.9-1.1) Activated Partial Thromboplast Time 28.8 SECONDS (21.0-31.0) Partial Thromboplastin Ratio 1.1 Anion Gap 7.0 mmol/L (3-11) Est Creatinine Clear Calc Drug Dose 22.0 ml/min Estimated GFR () 20.4 Estimated GFR (Non- 17.6 BUN/Creatinine Ratio 19.7 (10-20) Calcium Level 8.3 mg/dl (8.5-10.1) Total Bilirubin 0.4 mg/dl (0.2-1) Direct Bilirubin 0.2 mg/dl (0-0.2) Aspartate Amino Transf (AST/SGOT) 41 U/L (15-37) Alanine Aminotransferase (ALT/SGPT) 33 U/L (12-78) Alkaline Phosphatase 116 U/L (45-117) Total Protein 6.1 gm/dl (6.4-8.2) Albumin 2.7 gm/dl (3.4-5.0) Lipase 91 U/L (73-393) Laboratory results as reviewed by me. ECG Indication: other (nursing protocol) Rate (beats per minute): 68 Rhythm: atrial fibrillation Findings: LBBB, no acute ischemic change, other (occasional ventricular paced complexes) ED Course 1204: The patient was evaluated in room A4B. A complete history and physical exam was performed. 1348: The patients blood pressure is now 110/62. I discussed his test results with him. 1351: I spoke with Shreya Carbone. We discussed the patient and his results. The patient will be further evaluated by her. Medical Decision This is an 87-year-old male who presents with swelling to his abdomen and weight gain. Differential diagnosis includes ascites, spontaneous bacterial peritonitis, SHANE, heart failure, electrolyte abnormality. I did perform a limited focused review of portions of the patient's old chart on the electronic medical record. The patient was admitted in April for hypotension and ascites and underwent paracentesis. I did evaluate the patient as noted above. The patient was sent here by his doctor's office for increased weight gain and swelling to the abdomen. IV access was established. The patient was placed on a continuous laboratory monitor. I did personally review the patient's 12-lead EKG as described above. I did order and review the patient's blood work as noted in the electronic medical record. His creatinine is elevated above baseline. I did discuss the test results with the patient. The patient requires paracentesis. The last time he had paracentesis he became hypotensive. He required fluids IV and albumin. He is currently slightly hypertensive here and so I didn't feel hospitalization for paracentesis was indicated. I did discuss case with the hospitalist and watch caser. Medication Reconcilliation Current Medication List: was personally reviewed by me Blood Pressure Screening Patient's blood pressure: Low blood pressure Consults Time Called: 1347 Consulting Physician: Shreya Carbone Returned Call: 1351 I spoke with Shreya Carbone. We discussed the patient and his results. The patient will be further evaluated by her. Impression Primary Impression: Ascites Additional Impressions: Lower extremity edema [id number] kidney injury Pancytopenia Scribe Attestation The scribe's documentation has been prepared under my direct and personally reviewed by me in its entirety. I confirm that the note above accurately reflects all work, treatment, procedures, and medical decision making performed by me. Departure Information Dispostion Being Evaluated By Hospitalist Anastacio Stout M.D. (PCP) Problem Qualifiers Primary Impression: Ascites Ascites type: other type Qualified Codes: R18.8 - Other ascites Additional Impressions: [id number] kidney injury Acute renal failure type: unspecified Chronic kidney disease stage: unspecified stage Qualified Codes: N17.9 - Acute kidney failure, unspecified; N18.9 - Chronic kidney disease, unspecified
[2017-06-02 17:50] VITALS: Ht 182.9 cm; Wt 94.9 kg
[2017-06-02 18:28] VITALS: BP 122/86; PULSE 112; TEMP 36.4
[2017-06-02] MEDS ORDERED: ALBUMIN 25% 50 ML with FUROSEMIDE INJ 40 MG IV ONE ×2 (19:00)
[2017-06-02 20:17] VITALS: BP 92/60; PULSE 68; TEMP 36.7; O2SAT 65
[2017-06-02] MEDS: MIDODRINE 2.5 MG TAB PO SCH (20:26)
[2017-06-02] MEDS: RIFAXIMIN TAB 550 MG TAB PO SCH (20:26)
[2017-06-02] MEDS ORDERED: INSULIN GLARGINE SOLOSTAR 100 UNITS/ML 3 ML PEN SQ SCH (21:00)
[2017-06-02 21:04] VITALS: BP 109/68; PULSE 65; TEMP 36.4; O2SAT 97
[2017-06-03] VITALS (9 sets, daily range): BP systolic 93–104; BP diastolic 56–67; PULSE 58–80; TEMP 36.4–36.8; O2SAT 93–100
[2017-06-03 07:12] LABS: HEMATOCRIT 25.8 % (42-52); HEMOGLOBIN 8.4 g/dL (14.0-18.0); MEAN CELL VOLUME 88.4 fL (80-100); MEAN CORPUSCULAR HEMOGLOBIN 28.8 pg (25-34); MEAN CORPUSCULAR HGB CONC 32.6 g/dl (32-36); RED CELL DISTRIBUTION WIDTH CV 16.6 % (11.5-14.5); RED CELL DISTRIBUTION WIDTH SD 53.8 fL (36.4-46.3); WHITE BLOOD COUNT 2.39 K/uL (4.8-10.8)
[2017-06-03 07:14] LABS: HEMOGLOBIN A1C 5.3 % (4.5-5.6)
[2017-06-03 07:31] LABS: CALCIUM 8.1 mg/dl (8.5-10.1); CREATININE 2.88 mg/dl (0.60-1.40); POTASSIUM 3.8 mmol/L (3.5-5.1)
[2017-06-03 07:38] LABS: MEAN PLATELET VOLUME 9.6 fL (7.4-10.4); PLATELET COUNT 40 K/uL (130-400)
[2017-06-03] MEDS: METOPROLOL SUCC 25MG EXT REL TAB PO SCH (08:00)
[2017-06-03] MEDS ORDERED: FERROUS SULFATE 325 MG TAB PO SCH (08:00)
[2017-06-03] MEDS: FUROSEMIDE 40 MG TAB PO SCH ×2 (08:03→17:53)
[2017-06-03] MEDS: RIFAXIMIN TAB 550 MG TAB PO SCH ×2 (08:03→21:08)
[2017-06-03] MEDS: MIDODRINE 2.5 MG TAB PO SCH ×2 (08:03→17:54)
[2017-06-03] MEDS: SPIRONOLACTONE 25 MG TAB PO SCH (08:03)
[2017-06-03] MEDS: INSULIN ASPART 100 UNITS/ML 3 ML PEN SC SCH ×4 (09:00→21:00)
--- NOTE | 2017-06-03 09:49 | NEPHROLOGY CONSULTATION ---
DATE OF CONSULTATION: 06/03/2017 ATTENDING OF RECORD: David Burleson MD. REASON FOR CONSULTATION: Edema with renal failure. HISTORY OF PRESENT ILLNESS: This is an 87-year-old male who has recurrent hospitalizations for worsening volume overload with underlying CKD stage IV, paroxysmal AFib, COPD with SHANE cirrhosis. The patient has worsening swelling in his lower extremities as well as abdominal distention. The patient though is quite comfortable this morning lying flat and not requiring any oxygen. PAST MEDICAL HISTORY: CKD stage IV, COPD, diabetes, hyperlipidemia, 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, paroxysmal AFib, obstructive sleep apnea, SHANE cirrhosis. PAST SURGICAL HISTORY: Pacemaker as well as myomectomy for cardiomyopathy. FAMILY HISTORY: Significant for heart disease. SOCIAL HISTORY: No smoking, no alcohol, no drugs. CURRENT MEDICATIONS: Lantus 5 units subQ at night, Lasix 40 mg p.o. b.i.d., folic acid 1 mg daily, spironolactone 50 mg daily, iron 325 daily, Toprol-XL 12.5 daily, rifaximin 550 mg p.o. b.i.d., midodrine 2.5 mg p.o. b.i.d., sliding scale insulin. REVIEW OF SYSTEMS: Positive edema. Positive shortness of breath with exertion. No chest pain, no headaches, no blurry vision and no dysphagia. No dysuria. No diarrhea or constipation. All other review of systems otherwise negative. PHYSICAL EXAMINATION: VITAL SIGNS: Temperature 36.6, pulse 77, respiratory rate 18, blood pressure 93/57, satting 98% on room air. GENERAL: Awake, alert, oriented x3. EYES: No scleral icterus. ENT: Moist mucous membranes. NECK: Supple. PULMONARY: Decreased breath sounds at the bases. CARDIAC: Regular. ABDOMEN: Distended. EXTREMITIES: +2 to 3 pitting edema. NEUROLOGICALLY: Has some tremors. DERMATOLOGIC: No ulcers noted. LABORATORIES: White count is 2.3, H&H 8.4 and 25.8, platelet count is 40. INR is 1.2. Sodium level 142, potassium 3.8, chloride is 112, bicarbonate is 23, BUN is 56, creatinine is 2.88, glucose is 105, calcium is 8.1, mag is 2.2, albumin is 2.7, T bili is 0.4, AST 41, ALT 33. Chest x-ray shows early parenchymal infiltrate. ASSESSMENT AND PLAN: Chronic kidney disease stage IV with a creatinine of 2.8 in the setting of volume overload. Did receive 1 dose of albumin with Lasix. Creatinine is above baseline on admission; however, this morning is close to baseline in the high 2s. No indication for dialysis at this time and does have 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 with thrombocytopenia. Overall, would like to continue the Lasix and albumin. During previous admissions required high doses of Lasix IV to try to mobilize the fluid. We would like to give Lasix 80 IV t.i.d. with albumin to try to mobilize the edema. We will continue aggressive diuresis inhouse. I appreciate the consultation. RAYNA
--- NOTE | 2017-06-03 09:54 | Pharmacy Progress Note ---
Pharmacy Glycemic Short Note 2 Date of Service Jun 03, 2017. OUTPATIENT ANTIDIABETIC REGIMEN: * Lantus 14 units SQ HS * NovoLog Correctional insulin per scale * CF = 20mg/dl/unit for BSG >150 ASSESSMENT: * 87yo T2DM male known to pharmacy from previous admissions/glycemic consults. * Pt with excellent outpatient control - possibly too tight based on age and co- morbidities. Goal A1c likely < 8% * His A1c may not be totally reliable d/t hx of cirrhosis * Typically, patient requires 30-40 units of insulin per day for adequate control per august 2016 admission. It looks like his outpatient dose has been reduced since then and A1c has dropped from 6.3--> 5.8%. * 06/02/17: started with reduced outpatient dosing. Lantus 10 units SQ HS - kept once daily dosing for easy transition back to outpatient dosing rather than switching to BID Lantus. started weight based CF/CR * 06/03/17: BSGs 169, 90, 94 * AM fasting BSG is below goal range based on age/co-morbidities --> will reduce basal insulin dosing. May not even need basal insulin anymore * Will loosen CF/CR as well to prevent hypo. PLAN FOR INPATIENT GLYCEMIC CONTROL: * Basal insulin: decrease dose * Lantus 5 units SQ HS * Bolus insulin : loosen parameters * NovoLog per scale ACHS or Q6hrs while NPO * Goal Range: Low 120 mg/dL - High 160 mg/dL * Correction Factor: 30 mg/dL/unit * Nutritional / Prandial insulin per carb ratio of 1 unit per 13 grams CHO consumed
[2017-06-03] MEDS: FUROSEMIDE INJ 80 MG in SYRINGE 0 ML IV SCH ×3 (11:31→21:07)
[2017-06-03] MEDS: ALBUMIN HUMAN 25% 12.5 GM/50 ML VIAL IV SCH ×3 (11:32→21:03)
[2017-06-03] MEDS ORDERED: ALBUMIN 25% 50 ML with FUROSEMIDE INJ 80 MG IV ONE ×2 (14:00)
--- NOTE | 2017-06-03 16:01 | Progress Note ---
Medicine Progress Note Date & Time of Visit: Jun 03, 2017 at 16:01 . Subjective CC: Follow-up visit for cirrhosis and other problems. HPI: Feels a little better. Abdominal distention and edema better. No chest pain or SOB. No nausea or vomiting. No difficulty with voiding. No fever. Needs CPAP ordered. ROS: as noted above in HPI . Objective Last 8 Hrs Date Time Temp Pulse Resp B/P (MAP) Pulse Ox O2 Delivery O2 Flow Rate FiO2 06/03/17 15:13 36.4 70 18 93/61 (72) 100 Room Air 06/03/17 12:28 36.8 58 16 104/67 (79) 06/03/17 11:57 36.4 60 16 104/67 (79) 06/03/17 11:30 36.4 59 16 98/60 (73) 06/03/17 08:45 Room Air 06/03/17 08:04 77 93/57 (69) Physical Exam: General- sitting in chair, no distress Lungs- clear Heart- RRR, II/ sys murmur LSB, no gallop appreciated; no JVD; 3+ pretibial and pedal edema Abdomen- + BS, distended, soft, nontender Extremities- no cyanosis; no calf tenderness Neuro- alert Skin- warm & dry . Laboratory Results: Last 24 Hours Test 06/02/17 20:32 06/03/17 06:48 06/03/17 07:53 06/03/17 11:31 Bedside Glucose 169 mg/dl 90 mg/dl 139 mg/dl White Blood Count 2.39 K/uL Red Blood Count 2.92 M/uL Hemoglobin 8.4 g/dL Hematocrit 25.8 % Mean Corpuscular Volume 88.4 fL Mean Corpuscular Hemoglobin 28.8 pg Mean Corpuscular Hemoglobin Concent 32.6 g/dl RDW Standard Deviation 53.8 fL RDW Coefficient of Variation 16.6 % Platelet Count 40 K/uL Mean Platelet Volume 9.6 fL Sodium Level 142 mmol/L Potassium Level 3.8 mmol/L Chloride Level 112 mmol/L Carbon Dioxide Level 23 mmol/L Anion Gap 7.0 mmol/L Blood Urea Nitrogen 56 mg/dl Creatinine 2.88 mg/dl Est Creatinine Clear Calc Drug Dose 23.2 ml/min Estimated GFR () 21.7 Estimated GFR (Non- 18.8 BUN/Creatinine Ratio 19.4 Random Glucose 94 mg/dl Estimated Average Glucose 105 mg/dl Hemoglobin A1c 5.3 % Calcium Level 8.1 mg/dl Magnesium Level 2.2 mg/dl Assessment & Plan CIRRHOSIS / ASCITES Cirrhosis attributed to passive liver congestion from CHF and/or SHANE. Worsening ascites. IV furosemide as tolerated with albumin. Continue spironolactone with caution in light of CKD. Continue rifaximin. 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 Creatinine ton admission 3.03. -[id number]- creatinine today = 2.88. [corrected REECE 06/05/17 00:11] Continue diuretics with caution. Watch fluid status. Avoid potential nephrotoxins. Follow. HISTORY SINOATRIAL DISEASE / PAROXYSMAL ATRIAL FIB S/P pacemaker. Continue metoprolol. No anticoagulants due to cirrhosis and thrombocytopenia. COPD / SLEEP APNEA Respiratory status stable. Continue CPAP. DM TYPE II Well-controlled. Hgb A1C 5.3 Tight control not indicated given advanced age and comorbidities. FBS this morning = 90. Continue NovoLog with liberal blood sugar goals. MYELODYSPLASTIC SYNDROME Hgb today = 8.4. Anemia probably due to combination of MDS + CKD. No transfusion at this time per current guidelines. WBC today = 2390. Plts today = 40,000. Follow. VTE PROPHYLAXIS Chemoprophylaxis contraindicated in light of thrombocytopenia. SCD's. DISPOSITION Probable return to [facility]. Family Medicine follow-up with Dr. Garza. Nephrology follow-up with Dr. Chong. . Current Inpatient Medications: Current Inpatient Medications Medications (Trade) Dose Ordered Sig/Gin Route Start Time Stop Time Status Last Admin Dose Admin Ondansetron HCl (Zofran Inj) 4 mg Q6H PRN IV 06/02/17 14:15 07/02/17 14:14 Folic Acid (Folvite Tab) 1 mg DAILY PO 06/03/17 08:00 07/03/17 08:59 06/03/17 08:03 1 MG Furosemide (Lasix Tab) 40 mg BID17 PO 06/03/17 09:00 07/03/17 08:59 06/03/17 08:03 40 MG Midodrine (Proamatine Tab) 2.5 mg DAILY@0800,1800 PO 06/02/17 19:00 07/02/17 18:59 06/03/17 08:03 2.5 MG Nitroglycerin (Nitrostat Tab) 0.4 mg UD PRN UT 06/02/17 14:15 07/02/17 14:14 Ondansetron HCl (Zofran Tab) 4 mg Q6H PRN PO 06/02/17 14:15 07/02/17 14:14 Rifaximin (Xifaxan Tab) 550 mg BID PO 06/02/17 20:00 07/02/17 20:59 06/03/17 08:03 550 MG Spironolactone (Aldactone Tab) 50 mg QAM PO 06/03/17 08:00 07/03/17 08:59 06/03/17 08:03 50 MG Ferrous Sulfate (Feosol Tab) 325 mg DAILY PO 06/03/17 08:00 07/03/17 08:59 06/03/17 08:03 325 MG Insulin Aspart (novoLOG ASPART) SLIDING SCALE If C... ACHS SC 06/02/17 16:00 07/02/17 15:59 06/03/17 12:36 4 UNITS Glucose (Glucose 40% Gel) 15-30 GRAMS 15 GRAMS... UD PRN PO 06/02/17 14:30 07/02/17 14:29 Glucose (Glucose Chew Tab) 4-8 Tablets 4 Tabl... UD PRN PO 06/02/17 14:30 07/02/17 14:29 Dextrose (Dextrose 50% 50ML Syringe) 25-50ML OF 50% DW IV FOR... UD PRN IV 06/02/17 14:30 07/02/17 14:29 Glucagon (Glucagon Inj) 1 mg UD PRN SQ 06/02/17 14:30 07/02/17 14:29 Miscellaneous Information (Consult Glycemic Management Pharmacy) 1 ea UD PRN N/A 06/02/17 14:35 07/02/17 14:34 Metoprolol Succinate (Toprol Xl Tab) 12.5 mg DAILY PO 06/03/17 08:00 07/03/17 07:59 Insulin Glargine (Lantus Solostar Pen) 5 units HS SQ 06/03/17 21:00 07/03/17 20:59 Furosemide 80 mg/ Syringe 8 ml @ 4 mls/min TID IV 06/03/17 10:30 07/03/17 10:29 06/03/17 15:41 4 MLS/MIN Albumin Human (Albumin 25%) 12.5 gm TID IV 06/03/17 10:30 06/06/17 10:29 06/03/17 15:38 12.5 GM
[2017-06-03] MEDS ORDERED: INSULIN GLARGINE SOLOSTAR 100 UNITS/ML 3 ML PEN SQ SCH (21:00)
[2017-06-04] VITALS (10 sets, daily range): BP systolic 89–118; BP diastolic 55–69; PULSE 68–82; TEMP 36.2–36.7; O2SAT 96–100
[2017-06-04 05:38] LABS: CALCIUM 7.8 mg/dl (8.5-10.1); CREATININE 2.79 mg/dl (0.60-1.40); POTASSIUM 3.5 mmol/L (3.5-5.1)
[2017-06-04] MEDS: RIFAXIMIN TAB 550 MG TAB PO SCH ×2 (08:00→21:13)
[2017-06-04] MEDS: MIDODRINE 2.5 MG TAB PO SCH ×2 (08:00→18:06)
[2017-06-04] MEDS: METOPROLOL SUCC 25MG EXT REL TAB PO SCH (08:00)
[2017-06-04] MEDS: FUROSEMIDE INJ 80 MG in SYRINGE 0 ML IV SCH ×3 (08:00→21:16)
[2017-06-04] MEDS: SPIRONOLACTONE 25 MG TAB PO SCH (08:01)
[2017-06-04] MEDS: ALBUMIN HUMAN 25% 12.5 GM/50 ML VIAL IV SCH ×3 (08:13→21:17)
[2017-06-04] MEDS: FERROUS SULFATE 325 MG TAB PO SCH (08:41)
[2017-06-04] MEDS: INSULIN ASPART 100 UNITS/ML 3 ML PEN SC SCH ×4 (08:45→21:00)
--- NOTE | 2017-06-04 11:49 | Pharmacy Progress Note ---
Pharmacy Glycemic Short Note 2 Date of Service Jun 04, 2017. OUTPATIENT ANTIDIABETIC REGIMEN: * Lantus 14 units SQ HS * NovoLog Correctional insulin per scale * CF = 20mg/dl/unit for BSG >150 ASSESSMENT: * 87yo T2DM male known to pharmacy from previous admissions/glycemic consults. * Pt with excellent outpatient control - possibly too tight based on age and co- morbidities. Goal A1c likely < 8% * His A1c may not be totally reliable d/t hx of cirrhosis * Typically, patient requires 30-40 units of insulin per day for adequate control per august 2016 admission. It looks like his outpatient dose has been reduced since then and A1c has dropped from 6.3--> 5.8%. * 06/02/17: started with reduced outpatient dosing. Lantus 10 units SQ HS - kept once daily dosing for easy transition back to outpatient dosing rather than switching to BID Lantus. started weight based CF/CR * 06/03/17: BSGs 169, 90, 94, 139, 128, 146 * AM fasting BSG is below goal range based on age/co-morbidities --> Reduced basal insulin dosing by half. May not even need basal insulin anymore * Loosened CF/CR as well to prevent hypo. * 06/04/17: BSGs 99, 108 * AM fasting BSG is still below goal range despite Lantus dose decreased by 50% . Since AM fasting BSG essentially unchanged with Lantus 10 units vs 5 units it is unlikely that patient really requires any exogenous basal insulin. Will d/c basal insulin. * No changes to CF/CR today. But probably will loosen parameters since less stringent control is needed. PLAN FOR INPATIENT GLYCEMIC CONTROL: * Basal insulin: discontinue, no longer needed. probably not needed at discharge either. * Bolus insulin : no change * NovoLog per scale ACHS or Q6hrs while NPO * Goal Range: Low 120 mg/dL - High 160 mg/dL * Correction Factor: 30 mg/dL/unit * Nutritional / Prandial insulin per carb ratio of 1 unit per 13 grams CHO consumed
--- NOTE | 2017-06-04 12:28 | Progress Note ---
Medicine Progress Note Date & Time of Visit: Jun 04, 2017 at 11:50 . Subjective CC: Follow-up visit for cirrhosis and other problems. HPI: Persistent abdominal distention and edema, but somewhat better. No chest pain. No cough or SOB. No nausea, vomiting, melena, hematochezia. No difficulty voiding. No fever. ROS: as noted above in HPI . Objective Last 8 Hrs Date Time Temp Pulse Resp B/P (MAP) Pulse Ox O2 Delivery O2 Flow Rate FiO2 06/04/17 09:24 36.5 70 16 89/58 (68) 06/04/17 08:47 36.5 80 16 92/58 (69) 06/04/17 08:20 Room Air 06/04/17 08:15 36.5 79 16 94/59 (71) 06/04/17 07:32 36.2 68 20 93/55 (68) 96 BiPAP Physical Exam: General- sitting in chair, no distress Lungs- clear Heart- RRR, II/ sys murmur LSB, no gallop appreciated; + JVD; 3+ pretibial and pedal edema Abdomen- + BS, distended, soft, nontender Extremities- no cyanosis; no calf tenderness Neuro- alert Skin- warm & dry . Laboratory Results: Last 24 Hours Test 06/03/17 16:35 06/03/17 20:22 06/04/17 04:43 06/04/17 07:44 Bedside Glucose 128 mg/dl 146 mg/dl 108 mg/dl Sodium Level 140 mmol/L Potassium Level 3.5 mmol/L Chloride Level 110 mmol/L Carbon Dioxide Level 25 mmol/L Anion Gap 5.0 mmol/L Blood Urea Nitrogen 57 mg/dl Creatinine 2.79 mg/dl Est Creatinine Clear Calc Drug Dose 23.9 ml/min Estimated GFR () 22.6 Estimated GFR (Non- 19.5 BUN/Creatinine Ratio 20.5 Random Glucose 99 mg/dl Calcium Level 7.8 mg/dl Test 06/04/17 11:26 Bedside Glucose 238 mg/dl Assessment & Plan CIRRHOSIS / ASCITES Cirrhosis attributed to passive liver congestion from CHF and/or SHANE. Worsening ascites. IV furosemide q 8 hrs as tolerated with albumin. Continue spironolactone with caution in light of CKD. Continue rifaximin. 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 Creatinine ton admission 3.03. Creatinine today = 2.79. Continue diuretics with caution. Watch fluid status. Avoid potential nephrotoxins. Follow. HISTORY SINOATRIAL DISEASE / PAROXYSMAL ATRIAL FIB S/P pacemaker. Continue metoprolol. No anticoagulants due to cirrhosis and thrombocytopenia. COPD / SLEEP APNEA Respiratory status stable. Continue CPAP. DM TYPE II Well-controlled. Hgb A1C 5.3 Tight control not indicated given advanced age and comorbidities. FBS this morning = 108. Continue NovoLog with liberal blood sugar goals. 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 No transfusion at this time per current guidelines. Follow. VTE PROPHYLAXIS Chemoprophylaxis contraindicated in light of thrombocytopenia. SCD's. DISPOSITION Probable return to [facility]. Family Medicine follow-up with Dr. Garza. Nephrology follow-up with Dr. Chong. . Current Inpatient Medications: Current Inpatient Medications Medications (Trade) Dose Ordered Sig/Gin Route Start Time Stop Time Status Last Admin Dose Admin Ondansetron HCl (Zofran Inj) 4 mg Q6H PRN IV 06/02/17 14:15 07/02/17 14:14 Folic Acid (Folvite Tab) 1 mg DAILY PO 06/03/17 08:00 07/03/17 08:59 06/04/17 08:01 1 MG Midodrine (Proamatine Tab) 2.5 mg DAILY@0800,1800 PO 06/02/17 19:00 07/02/17 18:59 06/04/17 08:00 2.5 MG Nitroglycerin (Nitrostat Tab) 0.4 mg UD PRN UT 06/02/17 14:15 07/02/17 14:14 Ondansetron HCl (Zofran Tab) 4 mg Q6H PRN PO 06/02/17 14:15 07/02/17 14:14 Rifaximin (Xifaxan Tab) 550 mg BID PO 06/02/17 20:00 07/02/17 20:59 06/04/17 08:00 550 MG Spironolactone (Aldactone Tab) 50 mg QAM PO 06/03/17 08:00 07/03/17 08:59 06/04/17 08:01 50 MG Insulin Aspart (novoLOG ASPART) SLIDING SCALE If C... ACHS SC 06/02/17 16:00 07/02/17 15:59 06/04/17 08:45 2 UNITS Glucose (Glucose 40% Gel) 15-30 GRAMS 15 GRAMS... UD PRN PO 06/02/17 14:30 07/02/17 14:29 Glucose (Glucose Chew Tab) 4-8 Tablets 4 Tabl... UD PRN PO 06/02/17 14:30 07/02/17 14:29 Dextrose (Dextrose 50% 50ML Syringe) 25-50ML OF 50% DW IV FOR... UD PRN IV 06/02/17 14:30 07/02/17 14:29 Glucagon (Glucagon Inj) 1 mg UD PRN SQ 06/02/17 14:30 07/02/17 14:29 Miscellaneous Information (Consult Glycemic Management Pharmacy) 1 ea UD PRN N/A 06/02/17 14:35 07/02/17 14:34 Metoprolol Succinate (Toprol Xl Tab) 12.5 mg DAILY PO 06/03/17 08:00 07/03/17 07:59 Furosemide 80 mg/ Syringe 8 ml @ 4 mls/min TID IV 06/03/17 10:30 07/03/17 10:29 06/04/17 08:00 4 MLS/MIN Albumin Human (Albumin 25%) 12.5 gm TID IV 06/03/17 10:30 06/06/17 10:29 06/04/17 08:13 12.5 GM Ferrous Sulfate (Feosol Tab) 325 mg DAILY PO 06/04/17 08:00 07/04/17 07:59 06/04/17 08:41 325 MG
[2017-06-05] VITALS (10 sets, daily range): BP systolic 95–109; BP diastolic 60–73; PULSE 72–85; TEMP 36.3–36.6; O2SAT 93–100
[2017-06-05 05:51] LABS: CREATININE 2.62 mg/dl (0.60-1.40)
[2017-06-05 05:52] LABS: CALCIUM 8.2 mg/dl (8.5-10.1); POTASSIUM 3.6 mmol/L (3.5-5.1)
--- NOTE | 2017-06-05 07:09 | Nephrology Progress Note ---
Nephrology Progress Note Date of Service: Jun 05, 2017. Subjective 87 yo male with cirrhosis and volume overload in the setting of ckd. pt is very pleasant. urinating well per is/os although pt does not personally feel he is urinating much. on cpap at night. Objective Date Time Temp Pulse Resp B/P (MAP) Pulse Ox O2 Delivery O2 Flow Rate FiO2 06/05/17 00:10 100 CPAP 06/04/17 23:46 36.5 82 15 101/64 (76) 100 CPAP 06/04/17 23:32 2.0 06/04/17 21:21 36.7 69 20 118/69 (85) 98 Room Air 06/04/17 16:00 Room Air 06/04/17 15:08 36.3 73 16 101/66 (78) Room Air 06/04/17 14:30 36.4 75 16 101/64 (76) 06/04/17 14:16 36.5 70 16 99/63 (75) 06/04/17 09:24 36.5 70 16 89/58 (68) 06/04/17 08:47 36.5 80 16 92/58 (69) 06/04/17 08:20 Room Air 06/04/17 08:15 36.5 79 16 94/59 (71) 06/04/17 07:32 36.2 68 20 93/55 (68) 96 BiPAP Physical Exam: General-aaox3 Eyes-no scleral icterus ENT-mmm Neck-supple Lungs-cta Heart-2/6 systolic murmur Abdomen-+distention Extremities-+2 edema Neuro-nonfocal Current Inpatient Medications Medications (Trade) Dose Ordered Sig/Gin Route Start Time Stop Time Status Last Admin Dose Admin Ondansetron HCl (Zofran Inj) 4 mg Q6H PRN IV 06/02/17 14:15 07/02/17 14:14 Folic Acid (Folvite Tab) 1 mg DAILY PO 06/03/17 08:00 07/03/17 08:59 06/04/17 08:01 1 MG Midodrine (Proamatine Tab) 2.5 mg DAILY@0800,1800 PO 06/02/17 19:00 07/02/17 18:59 06/04/17 18:06 2.5 MG Nitroglycerin (Nitrostat Tab) 0.4 mg UD PRN UT 06/02/17 14:15 07/02/17 14:14 Ondansetron HCl (Zofran Tab) 4 mg Q6H PRN PO 06/02/17 14:15 07/02/17 14:14 Rifaximin (Xifaxan Tab) 550 mg BID PO 06/02/17 20:00 07/02/17 20:59 06/04/17 21:13 550 MG Spironolactone (Aldactone Tab) 50 mg QAM PO 06/03/17 08:00 07/03/17 08:59 06/04/17 08:01 50 MG Insulin Aspart (novoLOG ASPART) SLIDING SCALE If C... ACHS SC 06/02/17 16:00 07/02/17 15:59 06/04/17 18:06 7 UNITS Glucose (Glucose 40% Gel) 15-30 GRAMS 15 GRAMS... UD PRN PO 06/02/17 14:30 07/02/17 14:29 Glucose (Glucose Chew Tab) 4-8 Tablets 4 Tabl... UD PRN PO 06/02/17 14:30 07/02/17 14:29 Dextrose (Dextrose 50% 50ML Syringe) 25-50ML OF 50% DW IV FOR... UD PRN IV 06/02/17 14:30 07/02/17 14:29 Glucagon (Glucagon Inj) 1 mg UD PRN SQ 06/02/17 14:30 07/02/17 14:29 Miscellaneous Information (Consult Glycemic Management Pharmacy) 1 ea UD PRN N/A 06/02/17 14:35 07/02/17 14:34 Metoprolol Succinate (Toprol Xl Tab) 12.5 mg DAILY PO 06/03/17 08:00 07/03/17 07:59 Furosemide 80 mg/ Syringe 8 ml @ 4 mls/min TID IV 06/03/17 10:30 07/03/17 10:29 06/04/17 21:16 4 MLS/MIN Albumin Human (Albumin 25%) 12.5 gm TID IV 06/03/17 10:30 06/06/17 10:29 06/04/17 21:17 12.5 GM Ferrous Sulfate (Feosol Tab) 325 mg DAILY PO 1/14/18 08:00 07/04/17 07:59 06/04/17 08:41 325 MG Last 24 Hours Test 06/04/17 07:44 06/04/17 11:26 06/04/17 16:26 06/04/17 20:43 Bedside Glucose 108 mg/dl 238 mg/dl 103 mg/dl 126 mg/dl Test 06/05/17 04:53 Sodium Level 141 mmol/L Potassium Level 3.6 mmol/L Chloride Level 109 mmol/L Carbon Dioxide Level 26 mmol/L Anion Gap 6.0 mmol/L Blood Urea Nitrogen 57 mg/dl Creatinine 2.62 mg/dl Est Creatinine Clear Calc Drug Dose 25.5 ml/min Estimated GFR () 24.4 Estimated GFR (Non- 21.0 BUN/Creatinine Ratio 21.9 Random Glucose 109 mg/dl Calcium Level 8.2 mg/dl Assessment & Plan ckd stage 4 with patient with volume overload and cirrhosis. on iv lasix with albumin. also on spironolactone. would like to continue to be aggressive with diuresis. In the previous hospitilizations, required very high doses of diuretics. Will add midodrine 5mg a day for now. Would consider titrating up the spironolactone in the near future as potassium levels allow.
[2017-06-05] MEDS: MIDODRINE 2.5 MG TAB PO SCH ×2 (07:37→17:40)
[2017-06-05] MEDS: METOLAZONE 5 MG TAB PO SCH (07:37)
[2017-06-05] MEDS: FERROUS SULFATE 325 MG TAB PO SCH (07:37)
[2017-06-05] MEDS: SPIRONOLACTONE 25 MG TAB PO SCH (07:37)
[2017-06-05] MEDS: RIFAXIMIN TAB 550 MG TAB PO SCH ×2 (07:37→20:32)
[2017-06-05] MEDS: ALBUMIN HUMAN 25% 12.5 GM/50 ML VIAL IV SCH ×3 (08:30→20:33)
[2017-06-05] MEDS: FUROSEMIDE INJ 80 MG in SYRINGE 0 ML IV SCH ×3 (08:30→20:33)
[2017-06-05] MEDS: METOPROLOL SUCC 25MG EXT REL TAB PO SCH (08:42)
[2017-06-05] MEDS: INSULIN ASPART 100 UNITS/ML 3 ML PEN SC SCH ×4 (08:42→20:34)
--- NOTE | 2017-06-05 09:43 | Pharmacy Progress Note ---
Pharmacy Glycemic Sign Off Nt Date of Service Jun 05, 2017. Assessment & Plan ASSESSMENT: * Pharmacy was consulted by Dr Saleh on 06/02/17 for glycemic control and to write orders per [facility] inpatient glycemic control protocol. * Major changes made by pharmacy to antidiabetic regimen include: * Decreasing outpatient basal insulin dose and eventually d/c'ing it all together. * Adjusting CF/CR based on post-prandial BSGs * Patient has been receiving/requiring ~15 units of insulin per day for adequate glycemic control * BSGs ranging 103 - 238 mg/dl * Regimen has only required minor adjustments over the past 48hrs to achieve this level of control * Do not anticipate further changes in patient status that would quickly deteriorate glycemic control (i.e. patient to be NPO for upcoming procedure, steroids tapering, starting tube feedings, etc). * Please see recommendations for outpatient antidiabetic regimen below. PLAN FOR INPATIENT GLYCEMIC CONTROL: No changes needed to current regimen. * Continue to hold basal insulin. No longer needed to maintain goal range fasting BSGs * Continue NovoLog per scale ACHS/Q6hrs while NPO * Goal range = 120 - 160 mg/dl (slightly less stringent control needed based on age) * CF = 25 mg/dl/unit * CR = 1 unit for ever 8 g CHO consumed * Pharmacy is signing off of glycemic consult and will no longer be making adjustments to inpatient regimen. Please feel free to re-consult if needed. Thank you. DISCHARGE RECOMMENDATIONS: * A1c 5.3 % on 06/03/17 * Recommend d/c'ing insulin regimen at discharge. This is likely too stringent of control for patient based on age. * Patient has required minimal insulin in house to maintain glycemic control.
--- NOTE | 2017-06-05 20:29 | Progress Note ---
Medicine Progress Note Date & Time of Visit: Jun 05, 2017 at 18:50 . Subjective CC: Follow-up visit for cirrhosis and other problems. HPI: Persistent edema. Less abdominal distention. No nausea, vomiting, melena, hematochezia. ROS: General- no fever, no chills Resp- no cough; no shortness of breath Cardiac- no chest pain GI- as noted above in HPI - no dysuria, no difficulty voiding . Objective Last 8 Hrs Date Time Temp Pulse Resp B/P (MAP) Pulse Ox O2 Delivery O2 Flow Rate FiO2 06/05/17 16:20 Room Air 06/05/17 16:10 36.4 72 18 97/60 (72) 06/05/17 14:15 36.3 72 16 99/67 (78) Physical Exam: General- sitting in chair, no distress Lungs- clear Heart- RRR, II/ sys murmur LSB, no gallop appreciated; + JVD; 3+ pretibial and pedal edema Abdomen- + BS, distended, soft, nontender Extremities- no cyanosis; no calf tenderness Neuro- alert Skin- warm & dry . Laboratory Results: Last 24 Hours Test 06/04/17 20:43 06/05/17 04:53 06/05/17 08:02 06/05/17 11:50 Bedside Glucose 126 mg/dl 119 mg/dl 142 mg/dl Sodium Level 141 mmol/L Potassium Level 3.6 mmol/L Chloride Level 109 mmol/L Carbon Dioxide Level 26 mmol/L Anion Gap 6.0 mmol/L Blood Urea Nitrogen 57 mg/dl Creatinine 2.62 mg/dl Est Creatinine Clear Calc Drug Dose 25.5 ml/min Estimated GFR () 24.4 Estimated GFR (Non- 21.0 BUN/Creatinine Ratio 21.9 Random Glucose 109 mg/dl Calcium Level 8.2 mg/dl Test 06/05/17 16:53 Bedside Glucose 120 mg/dl Assessment & Plan CIRRHOSIS / ASCITES Cirrhosis attributed to passive liver congestion from CHF and/or SHANE. Worsening ascites. IV furosemide q 8 hrs as tolerated with albumin. Continue spironolactone with caution in light of CKD. Effective diuresis per I/O's and wts. Continue rifaximin. 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 Creatinine ton admission 3.03. Creatinine today = 2.62. Continue diuretics with caution. Watch fluid status. Avoid potential nephrotoxins. Follow. HISTORY SINOATRIAL DISEASE / PAROXYSMAL ATRIAL FIB S/P pacemaker. Continue metoprolol. No anticoagulants due to cirrhosis and thrombocytopenia. COPD / SLEEP APNEA Respiratory status stable. Continue CPAP. DM TYPE II Well-controlled. Hgb A1C 5.3 Tight control not indicated given advanced age and comorbidities. FBS this morning = 119. Continue NovoLog with liberal blood sugar goals. 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 Chronic thrombocytopenia. No transfusions at this time per current guidelines. Follow. VTE PROPHYLAXIS Chemoprophylaxis contraindicated in light of thrombocytopenia. SCD's. DISPOSITION Probable return to [facility]. Family Medicine follow-up with Dr. Garza. Nephrology follow-up with Dr. Chong. . Current Inpatient Medications: Current Inpatient Medications Medications (Trade) Dose Ordered Sig/Gin Route Start Time Stop Time Status Last Admin Dose Admin Ondansetron HCl (Zofran Inj) 4 mg Q6H PRN IV 06/02/17 14:15 07/02/17 14:14 Folic Acid (Folvite Tab) 1 mg DAILY PO 06/03/17 08:00 07/03/17 08:59 06/05/17 07:37 1 MG Midodrine (Proamatine Tab) 2.5 mg DAILY@0800,1800 PO 06/02/17 19:00 07/02/17 18:59 06/05/17 17:40 2.5 MG Nitroglycerin (Nitrostat Tab) 0.4 mg UD PRN UT 06/02/17 14:15 07/02/17 14:14 Ondansetron HCl (Zofran Tab) 4 mg Q6H PRN PO 06/02/17 14:15 07/02/17 14:14 Rifaximin (Xifaxan Tab) 550 mg BID PO 06/02/17 20:00 07/02/17 20:59 06/05/17 07:37 550 MG Spironolactone (Aldactone Tab) 50 mg QAM PO 06/03/17 08:00 07/03/17 08:59 06/05/17 07:37 50 MG Insulin Aspart (novoLOG ASPART) SLIDING SCALE If C... ACHS SC 06/02/17 16:00 07/02/17 15:59 06/05/17 17:40 5 UNITS Glucose (Glucose 40% Gel) 15-30 GRAMS 15 GRAMS... UD PRN PO 06/02/17 14:30 07/02/17 14:29 Glucose (Glucose Chew Tab) 4-8 Tablets 4 Tabl... UD PRN PO 06/02/17 14:30 07/02/17 14:29 Dextrose (Dextrose 50% 50ML Syringe) 25-50ML OF 50% DW IV FOR... UD PRN IV 06/02/17 14:30 07/02/17 14:29 Glucagon (Glucagon Inj) 1 mg UD PRN SQ 06/02/17 14:30 07/02/17 14:29 Metoprolol Succinate (Toprol Xl Tab) 12.5 mg DAILY PO 06/03/17 08:00 07/03/17 07:59 Furosemide 80 mg/ Syringe 8 ml @ 4 mls/min TID IV 06/03/17 10:30 07/03/17 10:29 06/05/17 16:10 4 MLS/MIN Albumin Human (Albumin 25%) 12.5 gm TID IV 06/03/17 10:30 06/06/17 10:29 06/05/17 14:15 12.5 GM Ferrous Sulfate (Feosol Tab) 325 mg DAILY PO 06/04/17 08:00 07/04/17 07:59 06/05/17 07:37 325 MG Metolazone (Zaroxolyn Tab) 5 mg DAILY@0800 PO 06/05/17 08:00 07/05/17 07:59 06/05/17 07:37 5 MG
[2017-06-06] VITALS (7 sets, daily range): BP systolic 95–111; BP diastolic 57–70; PULSE 66–82; TEMP 36.5–36.7; O2SAT 95–100
[2017-06-06] MEDS: RIFAXIMIN TAB 550 MG TAB PO SCH ×2 (07:26→19:55)
[2017-06-06] MEDS: MIDODRINE 2.5 MG TAB PO SCH ×2 (07:26→17:03)
[2017-06-06] MEDS: FUROSEMIDE INJ 80 MG in SYRINGE 0 ML IV SCH ×3 (07:26→19:52)
[2017-06-06] MEDS: METOLAZONE 5 MG TAB PO SCH (07:27)
[2017-06-06] MEDS: SPIRONOLACTONE 25 MG TAB PO SCH (07:27)
[2017-06-06] MEDS: METOPROLOL SUCC 25MG EXT REL TAB PO SCH ×2 (07:27→08:33)
[2017-06-06] MEDS: FERROUS SULFATE 325 MG TAB PO SCH (07:27)
[2017-06-06] MEDS: ALBUMIN HUMAN 25% 12.5 GM/50 ML VIAL IV SCH ×3 (07:33→19:50)
[2017-06-06 07:41] LABS: CALCIUM 8.3 mg/dl (8.5-10.1); CREATININE 3.04 mg/dl (0.60-1.40); POTASSIUM 3.2 mmol/L (3.5-5.1)
[2017-06-06] MEDS: INSULIN ASPART 100 UNITS/ML 3 ML PEN SC SCH ×4 (08:41→20:10)
[2017-06-06] MEDS ORDERED: POTASSIUM CHLORIDE 20 MEQ TABCR PO ONE (09:45)
--- NOTE | 2017-06-06 11:16 | Progress Note ---
Medicine Progress Note Date & Time of Visit: Jun 06, 2017 at 11:10 . Subjective CC: Follow-up visit for cirrhosis and other problems. HPI: Feels better. Ongoing edema, better when legs elevated. Less abdominal distention. No nausea, vomiting, melena, hematochezia. ROS: General- no fever, no chills Resp- no cough; no shortness of breath; using CPAP at night Cardiac- no chest pain GI- as noted above in HPI - no dysuria, no difficulty voiding . Objective Last 8 Hrs Date Time Temp Pulse Resp B/P (MAP) Pulse Ox O2 Delivery O2 Flow Rate FiO2 06/06/17 09:00 Room Air 06/06/17 08:33 82 95/57 (70) 06/06/17 07:39 36.7 74 18 95/60 (72) 100 Room Air Physical Exam: General- lying in bed, no distress Lungs- clear Heart- RRR, II/ sys murmur LSB, no gallop appreciated; + JVD; 3+ pretibial and pedal edema Abdomen- + BS, distended, soft, nontender Extremities- no cyanosis; no calf tenderness Neuro- alert Skin- warm & dry . Laboratory Results: Last 24 Hours Test 06/05/17 11:50 06/05/17 16:53 06/05/17 20:33 06/06/17 06:36 Bedside Glucose 142 mg/dl 120 mg/dl 152 mg/dl Sodium Level 137 mmol/L Potassium Level 3.2 mmol/L Chloride Level 104 mmol/L Carbon Dioxide Level 24 mmol/L Anion Gap 9.0 mmol/L Blood Urea Nitrogen 57 mg/dl Creatinine 3.04 mg/dl Est Creatinine Clear Calc Drug Dose 21.0 ml/min Estimated GFR () 20.4 Estimated GFR (Non- 17.6 BUN/Creatinine Ratio 18.7 Random Glucose 111 mg/dl Calcium Level 8.3 mg/dl Test 06/06/17 08:05 Bedside Glucose 124 mg/dl Assessment & Plan CIRRHOSIS / ASCITES Cirrhosis attributed to passive liver congestion from CHF and/or SHANE. Worsening ascites. IV furosemide q 8 hrs as tolerated with albumin. Continue spironolactone with caution in light of CKD. Effective diuresis per I/O's and wts. Continue rifaximin. 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 Creatinine on admission 3.03. Creatinine today = 3.04. Continue diuretics with caution. Watch fluid status. Avoid potential nephrotoxins. Follow. HYPOKALEMIA K 3.2. Replace. Follow. HISTORY SINOATRIAL DISEASE / PAROXYSMAL ATRIAL FIB S/P pacemaker. Continue metoprolol. No anticoagulants due to cirrhosis and thrombocytopenia. COPD / SLEEP APNEA Respiratory status stable. Continue CPAP. DM TYPE II Well-controlled. Hgb A1C 5.3 Tight control not indicated given advanced age and comorbidities. FBS this morning = 124. Continue NovoLog with liberal blood sugar goals. 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 Chronic thrombocytopenia. No transfusions at this time per current guidelines. Follow. VTE PROPHYLAXIS Chemoprophylaxis contraindicated in light of thrombocytopenia. SCD's. DISPOSITION Probable return to [facility]. Family Medicine follow-up with Dr. Garza. Nephrology follow-up with Dr. Chong. . Current Inpatient Medications: Current Inpatient Medications Medications (Trade) Dose Ordered Sig/Gin Route Start Time Stop Time Status Last Admin Dose Admin Ondansetron HCl (Zofran Inj) 4 mg Q6H PRN IV 06/02/17 14:15 07/02/17 14:14 Folic Acid (Folvite Tab) 1 mg DAILY PO 06/03/17 08:00 07/03/17 08:59 06/06/17 07:26 1 MG Midodrine (Proamatine Tab) 2.5 mg DAILY@0800,1800 PO 06/02/17 19:00 07/02/17 18:59 06/06/17 07:26 2.5 MG Nitroglycerin (Nitrostat Tab) 0.4 mg UD PRN UT 06/02/17 14:15 07/02/17 14:14 Ondansetron HCl (Zofran Tab) 4 mg Q6H PRN PO 06/02/17 14:15 07/02/17 14:14 Rifaximin (Xifaxan Tab) 550 mg BID PO 06/02/17 20:00 07/02/17 20:59 06/06/17 07:26 550 MG Spironolactone (Aldactone Tab) 50 mg QAM PO 06/03/17 08:00 07/03/17 08:59 06/06/17 07:27 50 MG Insulin Aspart (novoLOG ASPART) SLIDING SCALE If C... ACHS SC 06/02/17 16:00 07/02/17 15:59 06/06/17 08:41 8 UNITS Glucose (Glucose 40% Gel) 15-30 GRAMS 15 GRAMS... UD PRN PO 06/02/17 14:30 07/02/17 14:29 Glucose (Glucose Chew Tab) 4-8 Tablets 4 Tabl... UD PRN PO 06/02/17 14:30 07/02/17 14:29 Dextrose (Dextrose 50% 50ML Syringe) 25-50ML OF 50% DW IV FOR... UD PRN IV 06/02/17 14:30 07/02/17 14:29 Glucagon (Glucagon Inj) 1 mg UD PRN SQ 06/02/17 14:30 07/02/17 14:29 Metoprolol Succinate (Toprol Xl Tab) 12.5 mg DAILY PO 06/03/17 08:00 07/03/17 07:59 Furosemide 80 mg/ Syringe 8 ml @ 4 mls/min TID IV 06/03/17 10:30 07/03/17 10:29 06/06/17 07:26 4 MLS/MIN Ferrous Sulfate (Feosol Tab) 325 mg DAILY PO 06/04/17 08:00 07/04/17 07:59 06/06/17 07:27 325 MG Metolazone (Zaroxolyn Tab) 5 mg DAILY@0800 PO 06/05/17 08:00 07/05/17 07:59 06/06/17 07:27 5 MG
[2017-06-07] VITALS (10 sets, daily range): BP systolic 92–111; BP diastolic 58–67; PULSE 64–84; TEMP 36.4–36.9; O2SAT 93–100
[2017-06-07 07:51] LABS: CALCIUM 8.2 mg/dl (8.5-10.1); CREATININE 3.29 mg/dl (0.60-1.40); POTASSIUM 3.5 mmol/L (3.5-5.1)
[2017-06-07] MEDS: METOPROLOL SUCC 25MG EXT REL TAB PO SCH (08:00)
[2017-06-07] MEDS: ALBUMIN HUMAN 25% 12.5 GM/50 ML VIAL IV SCH ×3 (08:05→20:35)
[2017-06-07] MEDS: MIDODRINE 2.5 MG TAB PO SCH ×2 (08:08→17:40)
[2017-06-07] MEDS: RIFAXIMIN TAB 550 MG TAB PO SCH ×2 (08:08→20:36)
[2017-06-07] MEDS: FERROUS SULFATE 325 MG TAB PO SCH (08:08)
[2017-06-07] MEDS: SPIRONOLACTONE 25 MG TAB PO SCH (08:09)
[2017-06-07] MEDS: METOLAZONE 5 MG TAB PO SCH (08:10)
[2017-06-07] MEDS: INSULIN ASPART 100 UNITS/ML 3 ML PEN SC SCH ×4 (08:46→20:38)
[2017-06-07] MEDS: FUROSEMIDE INJ 80 MG in SYRINGE 0 ML IV SCH ×3 (09:06→20:35)
--- NOTE | 2017-06-07 14:30 | Nephrology Progress Note ---
Nephrology Progress Note Date of Service: Jun 07, 2017. Subjective 87 yo male with cirrhosis and volume overload in the setting of ckd. pt urinating better on lasix/albumin/spironolactone/metolazone. laying flat and pleasant. Objective Date Time Temp Pulse Resp B/P (MAP) Pulse Ox O2 Delivery O2 Flow Rate FiO2 06/07/17 09:20 Room Air 06/07/17 08:42 36.7 82 16 92/60 (71) 06/07/17 08:14 36.4 64 16 97/59 (72) 06/07/17 07:34 36.4 76 16 95/58 (70) 100 06/07/17 07:30 74 93 2.0 06/07/17 00:59 36.6 84 20 96/58 (71) 99 CPAP 2.0 06/07/17 00:00 Room Air 06/06/17 21:43 95 2.0 06/06/17 21:11 36.6 69 18 103/60 (74) 100 Room Air 06/06/17 20:00 Room Air 06/06/17 19:47 80 108/70 (83) 06/06/17 16:23 36.6 66 18 100/61 (74) 100 Room Air 06/06/17 15:20 Room Air Physical Exam: General-aaox3 Eyes-no scleral icterus ENT-mmm Neck-supple Lungs-clear Heart-2/6 systolic murmur Abdomen-+distention Extremities-+1 to 2 edema Neuro-nonfocal Current Inpatient Medications Medications (Trade) Dose Ordered Sig/Gin Route Start Time Stop Time Status Last Admin Dose Admin Ondansetron HCl (Zofran Inj) 4 mg Q6H PRN IV 06/02/17 14:15 07/02/17 14:14 Folic Acid (Folvite Tab) 1 mg DAILY PO 06/03/17 08:00 07/03/17 08:59 06/07/17 08:08 1 MG Midodrine (Proamatine Tab) 2.5 mg DAILY@0800,1800 PO 06/02/17 19:00 07/02/17 18:59 06/07/17 08:08 2.5 MG Nitroglycerin (Nitrostat Tab) 0.4 mg UD PRN UT 06/02/17 14:15 07/02/17 14:14 Ondansetron HCl (Zofran Tab) 4 mg Q6H PRN PO 06/02/17 14:15 07/02/17 14:14 Rifaximin (Xifaxan Tab) 550 mg BID PO 06/02/17 20:00 07/02/17 20:59 06/07/17 08:08 550 MG Spironolactone (Aldactone Tab) 50 mg QAM PO 06/03/17 08:00 07/03/17 08:59 06/07/17 08:09 50 MG Insulin Aspart (novoLOG ASPART) SLIDING SCALE If C... ACHS SC 06/02/17 16:00 07/02/17 15:59 06/07/17 13:17 9 UNITS Glucose (Glucose 40% Gel) 15-30 GRAMS 15 GRAMS... UD PRN PO 06/02/17 14:30 07/02/17 14:29 Glucose (Glucose Chew Tab) 4-8 Tablets 4 Tabl... UD PRN PO 06/02/17 14:30 07/02/17 14:29 Dextrose (Dextrose 50% 50ML Syringe) 25-50ML OF 50% DW IV FOR... UD PRN IV 06/02/17 14:30 07/02/17 14:29 Glucagon (Glucagon Inj) 1 mg UD PRN SQ 06/02/17 14:30 07/02/17 14:29 Metoprolol Succinate (Toprol Xl Tab) 12.5 mg DAILY PO 06/03/17 08:00 07/03/17 07:59 Furosemide 80 mg/ Syringe 8 ml @ 4 mls/min TID IV 06/03/17 10:30 07/03/17 10:29 06/07/17 13:19 4 MLS/MIN Ferrous Sulfate (Feosol Tab) 325 mg DAILY PO 06/04/17 08:00 07/04/17 07:59 06/07/17 08:08 325 MG Metolazone (Zaroxolyn Tab) 5 mg DAILY@0800 PO 06/05/17 08:00 07/05/17 07:59 06/07/17 08:10 5 MG Albumin Human (Albumin 25%) 12.5 gm TID IV 06/06/17 14:00 06/09/17 13:59 06/07/17 13:18 12.5 GM Last 24 Hours Test 06/06/17 16:57 06/06/17 20:03 06/07/17 06:40 06/07/17 07:54 Bedside Glucose 90 mg/dl 156 mg/dl 115 mg/dl Sodium Level 136 mmol/L Potassium Level 3.5 mmol/L Chloride Level 102 mmol/L Carbon Dioxide Level 26 mmol/L Anion Gap 8.0 mmol/L Blood Urea Nitrogen 63 mg/dl Creatinine 3.29 mg/dl Est Creatinine Clear Calc Drug Dose 19.3 ml/min Estimated GFR () 18.5 Estimated GFR (Non- 16.0 BUN/Creatinine Ratio 19.2 Random Glucose 110 mg/dl Calcium Level 8.2 mg/dl Test 06/07/17 11:49 Bedside Glucose 191 mg/dl Assessment & Plan ckd stage 4 with patient with volume overload and cirrhosis. on iv lasix with albumin. also on spironolactone. on metolazone. creatinine now up to 3.29. During previous admission, pt had paracentesis which helped control his volume status. Will defer to primary hospitalist. ok with creatinine trend and would continue current diuretics.
--- NOTE | 2017-06-07 19:38 | Progress Note ---
Medicine Progress Note Date & Time of Visit: Jun 07, 2017 at 17:05 . Subjective CC: Follow-up visit for cirrhosis and other problems. HPI: No new problems. Less abdominal distention. Lower extremity edema improved when lying in bed. No nausea, vomiting. ROS: General- no fever, no chills Resp- no cough; no shortness of breath Cardiac- no chest pain GI- as noted above in HPI - no dysuria, no difficulty voiding . Objective Last 8 Hrs Date Time Temp Pulse Resp B/P (MAP) Pulse Ox O2 Delivery O2 Flow Rate FiO2 06/07/17 16:33 36.9 83 18 99/64 (76) 100 Room Air 06/07/17 16:00 Room Air Physical Exam: General- lying in bed, no distress Lungs- clear Heart- RRR, II/ sys murmur LSB, no gallop appreciated; + JVD; 2-3+ pretibial and pedal edema Abdomen- + BS, distended, soft, nontender Extremities- no cyanosis; no calf tenderness Neuro- alert Skin- warm & dry . 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 Worsening ascites. IV furosemide q 8 hrs as tolerated with albumin. Continue spironolactone with caution in light of CKD. Effective diuresis per I/O's and wts. Continue rifaximin. 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 Creatinine on admission 3.03. Creatinine today = 3.29. Continue diuretics with caution. Watch fluid status. Avoid potential nephrotoxins. Follow. HYPOKALEMIA K 3.2 yesterday, 3.5 today. Replace. Follow. HISTORY SINOATRIAL DISEASE / PAROXYSMAL ATRIAL FIB S/P pacemaker. Continue metoprolol. No anticoagulants due to cirrhosis and thrombocytopenia. COPD / SLEEP APNEA Respiratory status stable. Continue CPAP. DM TYPE II Well-controlled. Hgb A1C 5.3 Tight control not indicated given advanced age and comorbidities. FBS this morning = 115. Continue NovoLog with liberal blood sugar goals. 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 Chronic thrombocytopenia. No transfusions at this time per current guidelines. Follow. VTE PROPHYLAXIS Chemoprophylaxis contraindicated in light of thrombocytopenia. SCD's. DISPOSITION Probable return to [facility]. Family Medicine follow-up with Dr. Garza. Nephrology follow-up with Dr. Chong. . Current Inpatient Medications: Current Inpatient Medications Medications (Trade) Dose Ordered Sig/Gin Route Start Time Stop Time Status Last Admin Dose Admin Ondansetron HCl (Zofran Inj) 4 mg Q6H PRN IV 06/02/17 14:15 07/02/17 14:14 Folic Acid (Folvite Tab) 1 mg DAILY PO 06/03/17 08:00 07/03/17 08:59 06/07/17 08:08 1 MG Midodrine (Proamatine Tab) 2.5 mg DAILY@0800,1800 PO 06/02/17 19:00 07/02/17 18:59 06/07/17 17:40 2.5 MG Nitroglycerin (Nitrostat Tab) 0.4 mg UD PRN UT 06/02/17 14:15 07/02/17 14:14 Ondansetron HCl (Zofran Tab) 4 mg Q6H PRN PO 06/02/17 14:15 07/02/17 14:14 Rifaximin (Xifaxan Tab) 550 mg BID PO 06/02/17 20:00 07/02/17 20:59 06/07/17 08:08 550 MG Spironolactone (Aldactone Tab) 50 mg QAM PO 06/03/17 08:00 07/03/17 08:59 06/07/17 08:09 50 MG Insulin Aspart (novoLOG ASPART) SLIDING SCALE If C... ACHS SC 06/02/17 16:00 07/02/17 15:59 06/07/17 17:40 6 UNITS Glucose (Glucose 40% Gel) 15-30 GRAMS 15 GRAMS... UD PRN PO 06/02/17 14:30 07/02/17 14:29 Glucose (Glucose Chew Tab) 4-8 Tablets 4 Tabl... UD PRN PO 06/02/17 14:30 07/02/17 14:29 Dextrose (Dextrose 50% 50ML Syringe) 25-50ML OF 50% DW IV FOR... UD PRN IV 06/02/17 14:30 07/02/17 14:29 Glucagon (Glucagon Inj) 1 mg UD PRN SQ 06/02/17 14:30 07/02/17 14:29 Metoprolol Succinate (Toprol Xl Tab) 12.5 mg DAILY PO 06/03/17 08:00 07/03/17 07:59 Furosemide 80 mg/ Syringe 8 ml @ 4 mls/min TID IV 06/03/17 10:30 07/03/17 10:29 06/07/17 13:19 4 MLS/MIN Ferrous Sulfate (Feosol Tab) 325 mg DAILY PO 06/04/17 08:00 07/04/17 07:59 06/07/17 08:08 325 MG Metolazone (Zaroxolyn Tab) 5 mg DAILY@0800 PO 06/05/17 08:00 07/05/17 07:59 06/07/17 08:10 5 MG Albumin Human (Albumin 25%) 12.5 gm TID IV 06/06/17 14:00 06/09/17 13:59 06/07/17 13:18 12.5 GM
[2017-06-08] VITALS (8 sets, daily range): BP systolic 92–104; BP diastolic 53–66; PULSE 69–82; TEMP 36.3–36.7; O2SAT 95–100
[2017-06-08 07:01] LABS: CALCIUM 8.3 mg/dl (8.5-10.1); CREATININE 3.17 mg/dl (0.60-1.40); POTASSIUM 3.1 mmol/L (3.5-5.1)
[2017-06-08] MEDS: SPIRONOLACTONE 25 MG TAB PO SCH (08:00)
[2017-06-08] MEDS: METOPROLOL SUCC 25MG EXT REL TAB PO SCH (08:00)
[2017-06-08] MEDS: RIFAXIMIN TAB 550 MG TAB PO SCH ×2 (08:00→20:18)
[2017-06-08] MEDS: MIDODRINE 2.5 MG TAB PO SCH ×2 (08:00→17:47)
[2017-06-08] MEDS: METOLAZONE 5 MG TAB PO SCH (08:00)
[2017-06-08] MEDS: FERROUS SULFATE 325 MG TAB PO SCH (08:00)
[2017-06-08] MEDS: ALBUMIN HUMAN 25% 12.5 GM/50 ML VIAL IV SCH ×3 (08:04→20:14)
[2017-06-08] MEDS: INSULIN ASPART 100 UNITS/ML 3 ML PEN SC SCH ×4 (08:53→20:21)
[2017-06-08] MEDS: FUROSEMIDE INJ 80 MG in SYRINGE 0 ML IV SCH ×3 (09:25→20:14)
[2017-06-08] MEDS ORDERED: POTASSIUM CHLORIDE 20 MEQ TABCR PO ONE (09:30)
--- NOTE | 2017-06-08 09:35 | Clinical Documentation Query ---
CLINICAL DOCUMENTATION QUERY An 87 yo male admitted with increased swelling to his abdomen and legs has documented cirrhosis from CHF and/or SHANE. In your clinical opinion is this patient being managed for: ( ) Acute diastolic CHF ( x ) Not Agree ascites and edema appear to be due to cirrhosis, not CHF ( ) Other explanation of clinical findings (Please Explain) ( ) Unable to determine (Please Define) ( ) Need to Discuss The medical record reflects the following clinical findings, treatment, and risk factors. Clinical Indicators: CXR = Early parenchymal infiltrate right base versus mild asymmetric components of developing congestive failure, ECHO from 12/20/2016 = EF of 65-70%, left ventricular hypertrophy Treatment: IV Lasix, I&O, serial PRPs Risk Factors: Age, cirrhosis, ascites Please clarify and document your clinical opinion in the progress notes and discharge summary. Terms such as "probable", "suspected", "likely", "questionable", "possible", or "still to be ruled out" are acceptable. IF IN AGREEMENT, YOU MUST DOCUMENT ABOVE DIAGNOSTIC STATEMENT IN DAILY PROGRESS NOTES AND DISCHARGE SUMMARY. This document is not part of the patient's record. Thank You, Cristela Lozano RN [phone]
--- NOTE | 2017-06-08 15:47 | Nephrology Progress Note ---
Nephrology Progress Note Date of Service: Jun 08, 2017. Subjective 87 yo male with cirrhosis and volume overload in the setting of ckd. patient is seated comfortably in bed. denies any SOB or chest pain or nausea. reports good urine output. Objective Date Time Temp Pulse Resp B/P (MAP) Pulse Ox O2 Delivery O2 Flow Rate FiO2 06/08/17 15:37 36.7 75 18 104/66 (79) 98 06/08/17 09:55 99 Room Air 06/08/17 08:47 Room Air 06/08/17 07:23 36.4 79 14 92/53 (66) 99 BiPAP 06/08/17 00:00 Room Air 06/07/17 23:32 36.5 79 20 100/62 (75) 100 BiPAP 06/07/17 22:03 77 94 2.0 06/07/17 21:47 36.6 74 18 98/59 (72) 99 Room Air 06/07/17 20:38 36.4 80 18 111/67 (82) 06/07/17 16:33 36.9 83 18 99/64 (76) 100 Room Air 06/07/17 16:00 Room Air Physical Exam: General-aaox3 Eyes-no scleral icterus ENT-mmm Neck-supple Lungs-clear Heart-2/6 systolic murmur Abdomen-+distention Extremities-+1 b/l le edema Neuro-nonfocal Current Inpatient Medications Medications (Trade) Dose Ordered Sig/Gin Route Start Time Stop Time Status Last Admin Dose Admin Ondansetron HCl (Zofran Inj) 4 mg Q6H PRN IV 06/02/17 14:15 07/02/17 14:14 Folic Acid (Folvite Tab) 1 mg DAILY PO 06/03/17 08:00 07/03/17 08:59 06/08/17 08:00 1 MG Midodrine (Proamatine Tab) 2.5 mg DAILY@0800,1800 PO 06/02/17 19:00 07/02/17 18:59 06/08/17 08:00 2.5 MG Nitroglycerin (Nitrostat Tab) 0.4 mg UD PRN UT 06/02/17 14:15 07/02/17 14:14 Ondansetron HCl (Zofran Tab) 4 mg Q6H PRN PO 06/02/17 14:15 07/02/17 14:14 Rifaximin (Xifaxan Tab) 550 mg BID PO 06/02/17 20:00 07/02/17 20:59 06/08/17 08:00 550 MG Spironolactone (Aldactone Tab) 50 mg QAM PO 06/03/17 08:00 07/03/17 08:59 06/08/17 08:00 50 MG Insulin Aspart (novoLOG ASPART) SLIDING SCALE If C... ACHS SC 06/02/17 16:00 07/02/17 15:59 06/08/17 12:29 9 UNITS Glucose (Glucose 40% Gel) 15-30 GRAMS 15 GRAMS... UD PRN PO 06/02/17 14:30 07/02/17 14:29 Glucose (Glucose Chew Tab) 4-8 Tablets 4 Tabl... UD PRN PO 06/02/17 14:30 07/02/17 14:29 Dextrose (Dextrose 50% 50ML Syringe) 25-50ML OF 50% DW IV FOR... UD PRN IV 06/02/17 14:30 07/02/17 14:29 Glucagon (Glucagon Inj) 1 mg UD PRN SQ 06/02/17 14:30 07/02/17 14:29 Metoprolol Succinate (Toprol Xl Tab) 12.5 mg DAILY PO 06/03/17 08:00 07/03/17 07:59 Furosemide 80 mg/ Syringe 8 ml @ 4 mls/min TID IV 06/03/17 10:30 07/03/17 10:29 06/08/17 14:09 4 MLS/MIN Ferrous Sulfate (Feosol Tab) 325 mg DAILY PO 06/04/17 08:00 07/04/17 07:59 06/08/17 08:00 325 MG Metolazone (Zaroxolyn Tab) 5 mg DAILY@0800 PO 06/05/17 08:00 07/05/17 07:59 06/08/17 08:00 5 MG Albumin Human (Albumin 25%) 12.5 gm TID IV 06/06/17 14:00 06/09/17 13:59 06/08/17 14:09 12.5 GM Potassium Chloride (Klor-Con Tab) 20 meq BID PO 06/08/17 20:00 2/17/18 19:59 Last 24 Hours Test 06/07/17 16:39 06/07/17 19:48 06/08/17 05:49 06/08/17 07:51 Bedside Glucose 130 mg/dl 188 mg/dl 117 mg/dl Sodium Level 136 mmol/L Potassium Level 3.1 mmol/L Chloride Level 100 mmol/L Carbon Dioxide Level 27 mmol/L Anion Gap 9.0 mmol/L Blood Urea Nitrogen 64 mg/dl Creatinine 3.17 mg/dl Est Creatinine Clear Calc Drug Dose 20.0 ml/min Estimated GFR () 19.4 Estimated GFR (Non- 16.7 BUN/Creatinine Ratio 20.2 Random Glucose 103 mg/dl Calcium Level 8.3 mg/dl Test 06/08/17 11:34 Bedside Glucose 191 mg/dl Other Studies: 06/07/17 06/08/17 06/09/17 08:00 08:00 08:00 Intake Total 1860 ml 1340 ml 1130 ml Output Total 3200 ml 2675 ml 725 ml Balance -1340 ml -1335 ml 405 ml Assessment & Plan ckd stage 4 with patient with volume overload and cirrhosis. volume status currently improved. on IV lasix 80 TID with albumin, Spirolonolactone 50mg daily , and mitolazone 5mg daily. Kidney function remains relatively stable at 3.1. despite high diuretic load. will continue to follow urine output and kidney function to optimize diuresis during hospital stay. Anemia: Hgb 8.4 and trending downward. will check iron sat tomorrow and evaluate for possible role of iron repletion. This patient was seen and treated with direct collaboration with Dr. Fowler. Thank you for the opportunity to participate in this patient's care. Appreciate the Consult. ATTENDING NOTE: I performed a history and physical examination of the patient, including specifically on history-pt is very pleasant, urinating well, on physical exam-+ edema, +abdominal distention, and my impression and plan are CKD stage 4 and would continue current diuretics and replete potassium prn. I have discussed the patient's management with Kathleen Barrera PA-C, Please refer to above note for the documented findings and plan of care. Marion Fowler DO
--- NOTE | 2017-06-08 19:56 | Progress Note ---
Medicine Progress Note Date & Time of Visit: Jun 08, 2017 at 11:00 . Subjective CC: Follow-up visit for cirrhosis and other problems. HPI: Doing well. Gradually losing weight. Less abdominal distention. Lower extremity edema improved. No nausea, vomiting. ROS: General- no fever, no chills Resp- no cough; no shortness of breath Cardiac- no chest pain GI- as noted above in HPI - no dysuria, no difficulty voiding . Objective Last 8 Hrs Date Time Temp Pulse Resp B/P (MAP) Pulse Ox O2 Delivery O2 Flow Rate FiO2 06/08/17 16:31 98 Room Air 06/08/17 16:00 Room Air 06/08/17 15:37 36.7 75 18 104/66 (79) 98 Physical Exam: General- lying in bed, no distress Lungs- clear Heart- RRR, II/ sys murmur LSB, no gallop appreciated; + JVD; 2-3+ pretibial and pedal edema Abdomen- + BS, distended, soft, nontender Extremities- no cyanosis; no calf tenderness Neuro- alert Skin- warm & dry . 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 Worsening ascites. IV furosemide q 8 hrs as tolerated with albumin. Continue spironolactone with caution in light of CKD. Effective diuresis per I/O's and wts. Continue rifaximin. 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 Creatinine on admission 3.03. Creatinine today = 3.17. Continue diuretics with caution. Watch fluid status. Avoid potential nephrotoxins. Follow. HYPOKALEMIA K 3.1 today. Replace with caution in light of CKD and spironolactone. Follow. HISTORY SINOATRIAL DISEASE / PAROXYSMAL ATRIAL FIB S/P pacemaker. Continue metoprolol. No anticoagulants due to cirrhosis and thrombocytopenia. COPD / SLEEP APNEA Respiratory status stable. Continue CPAP. DM TYPE II Well-controlled. Hgb A1C 5.3 Tight control not indicated given advanced age and comorbidities. FBS this morning = 117. Continue NovoLog with liberal blood sugar goals. 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 Chronic thrombocytopenia. No transfusions at this time per current guidelines. Follow. VTE PROPHYLAXIS Chemoprophylaxis contraindicated in light of thrombocytopenia. SCD's. DISPOSITION Probable return to [facility]. Family Medicine follow-up with Dr. Garza. Nephrology follow-up with Dr. Chong. . Current Inpatient Medications: Current Inpatient Medications Medications (Trade) Dose Ordered Sig/Gin Route Start Time Stop Time Status Last Admin Dose Admin Ondansetron HCl (Zofran Inj) 4 mg Q6H PRN IV 06/02/17 14:15 07/02/17 14:14 Folic Acid (Folvite Tab) 1 mg DAILY PO 06/03/17 08:00 07/03/17 08:59 06/08/17 08:00 1 MG Midodrine (Proamatine Tab) 2.5 mg DAILY@0800,1800 PO 06/02/17 19:00 07/02/17 18:59 06/08/17 17:47 2.5 MG Nitroglycerin (Nitrostat Tab) 0.4 mg UD PRN UT 06/02/17 14:15 07/02/17 14:14 Ondansetron HCl (Zofran Tab) 4 mg Q6H PRN PO 06/02/17 14:15 07/02/17 14:14 Rifaximin (Xifaxan Tab) 550 mg BID PO 06/02/17 20:00 07/02/17 20:59 06/08/17 08:00 550 MG Spironolactone (Aldactone Tab) 50 mg QAM PO 06/03/17 08:00 07/03/17 08:59 06/08/17 08:00 50 MG Insulin Aspart (novoLOG ASPART) SLIDING SCALE If C... ACHS SC 06/02/17 16:00 07/02/17 15:59 06/08/17 17:48 4 UNITS Glucose (Glucose 40% Gel) 15-30 GRAMS 15 GRAMS... UD PRN PO 06/02/17 14:30 07/02/17 14:29 Glucose (Glucose Chew Tab) 4-8 Tablets 4 Tabl... UD PRN PO 06/02/17 14:30 07/02/17 14:29 Dextrose (Dextrose 50% 50ML Syringe) 25-50ML OF 50% DW IV FOR... UD PRN IV 06/02/17 14:30 07/02/17 14:29 Glucagon (Glucagon Inj) 1 mg UD PRN SQ 06/02/17 14:30 07/02/17 14:29 Metoprolol Succinate (Toprol Xl Tab) 12.5 mg DAILY PO 06/03/17 08:00 07/03/17 07:59 Furosemide 80 mg/ Syringe 8 ml @ 4 mls/min TID IV 06/03/17 10:30 07/03/17 10:29 06/08/17 14:09 4 MLS/MIN Ferrous Sulfate (Feosol Tab) 325 mg DAILY PO 06/04/17 08:00 07/04/17 07:59 06/08/17 08:00 325 MG Metolazone (Zaroxolyn Tab) 5 mg DAILY@0800 PO 06/05/17 08:00 07/05/17 07:59 06/08/17 08:00 5 MG Albumin Human (Albumin 25%) 12.5 gm TID IV 06/06/17 14:00 06/09/17 13:59 06/08/17 14:09 12.5 GM Potassium Chloride (Klor-Con Tab) 20 meq BID PO 06/08/17 20:00 07/08/17 19:59
[2017-06-08] MEDS: POTASSIUM CHLORIDE 20 MEQ TABCR PO SCH (20:19)
[2017-06-09] VITALS (7 sets, daily range): BP systolic 90–98; BP diastolic 56–65; PULSE 64–79; TEMP 36.4–36.8; O2SAT 96–100
[2017-06-09] MEDS: ALBUMIN HUMAN 25% 12.5 GM/50 ML VIAL IV SCH (07:47)
[2017-06-09] MEDS: FUROSEMIDE INJ 80 MG in SYRINGE 0 ML IV SCH (07:47)
[2017-06-09] MEDS: METOLAZONE 5 MG TAB PO SCH (07:48)
[2017-06-09] MEDS: FERROUS SULFATE 325 MG TAB PO SCH (07:48)
[2017-06-09] MEDS: RIFAXIMIN TAB 550 MG TAB PO SCH ×2 (07:49→21:12)
[2017-06-09] MEDS: SPIRONOLACTONE 25 MG TAB PO SCH (07:49)
[2017-06-09] MEDS: MIDODRINE 2.5 MG TAB PO SCH ×2 (07:49→17:49)
[2017-06-09] MEDS: POTASSIUM CHLORIDE 20 MEQ TABCR PO SCH ×2 (07:50→21:12)
[2017-06-09 07:59] LABS: HEMATOCRIT 25.6 % (42-52); HEMOGLOBIN 8.5 g/dL (14.0-18.0); MEAN CELL VOLUME 86.2 fL (80-100); MEAN CORPUSCULAR HEMOGLOBIN 28.6 pg (25-34); MEAN CORPUSCULAR HGB CONC 33.2 g/dl (32-36); RED CELL DISTRIBUTION WIDTH CV 15.6 % (11.5-14.5); RED CELL DISTRIBUTION WIDTH SD 49.3 fL (36.4-46.3); WHITE BLOOD COUNT 2.45 K/uL (4.8-10.8)
[2017-06-09 08:06] LABS: MEAN PLATELET VOLUME 9.8 fL (7.4-10.4); PLATELET COUNT 45 K/uL (130-400)
[2017-06-09 08:30] LABS: CALCIUM 8.6 mg/dl (8.5-10.1); CREATININE 3.2 mg/dl (0.60-1.40); POTASSIUM 3.3 mmol/L (3.5-5.1)
[2017-06-09] MEDS: INSULIN ASPART 100 UNITS/ML 3 ML PEN SC SCH ×4 (08:58→21:00)
[2017-06-09] MEDS: METOPROLOL SUCC 25MG EXT REL TAB PO SCH (08:59)
--- NOTE | 2017-06-09 11:08 | Nephrology Progress Note ---
Nephrology Progress Note Date of Service: Jun 09, 2017. Subjective 87 yo male with cirrhosis and volume overload in the setting of ckd. patient is seated comfortably in bed. feet are hanging down. denies any SOB or chest pain or nausea. reports good urine output. Objective Date Time Temp Pulse Resp B/P (MAP) Pulse Ox O2 Delivery O2 Flow Rate FiO2 06/09/17 07:53 36.8 64 18 90/58 (69) 97 06/09/17 00:00 BiPAP 06/08/17 22:44 36.4 71 20 104/59 (74) 99 BiPAP 06/08/17 21:39 73 18 104/65 (78) 100 CPAP 06/08/17 20:37 82 95 2.0 06/08/17 20:23 36.3 69 18 92/58 (69) 99 06/08/17 16:31 98 Room Air 06/08/17 16:00 Room Air 06/08/17 15:37 36.7 75 18 104/66 (79) 98 Physical Exam: General-aaox3 Eyes-no scleral icterus ENT-mmm Neck-supple Lungs-clear Heart-2/6 systolic murmur Abdomen-+distention Extremities-+1-2+ b/l le edema Neuro-nonfocal Current Inpatient Medications Medications (Trade) Dose Ordered Sig/Gin Route Start Time Stop Time Status Last Admin Dose Admin Ondansetron HCl (Zofran Inj) 4 mg Q6H PRN IV 06/02/17 14:15 07/02/17 14:14 Folic Acid (Folvite Tab) 1 mg DAILY PO 06/03/17 08:00 07/03/17 08:59 06/09/17 07:49 1 MG Midodrine (Proamatine Tab) 2.5 mg DAILY@0800,1800 PO 06/02/17 19:00 07/02/17 18:59 06/09/17 07:49 2.5 MG Nitroglycerin (Nitrostat Tab) 0.4 mg UD PRN UT 06/02/17 14:15 07/02/17 14:14 Ondansetron HCl (Zofran Tab) 4 mg Q6H PRN PO 06/02/17 14:15 07/02/17 14:14 Rifaximin (Xifaxan Tab) 550 mg BID PO 06/02/17 20:00 2/11/18 20:59 06/09/17 07:49 550 MG Spironolactone (Aldactone Tab) 50 mg QAM PO 06/03/17 08:00 07/03/17 08:59 06/09/17 07:49 50 MG Insulin Aspart (novoLOG ASPART) SLIDING SCALE If C... ACHS SC 06/02/17 16:00 07/02/17 15:59 06/09/17 08:58 8 UNITS Glucose (Glucose 40% Gel) 15-30 GRAMS 15 GRAMS... UD PRN PO 06/02/17 14:30 07/02/17 14:29 Glucose (Glucose Chew Tab) 4-8 Tablets 4 Tabl... UD PRN PO 06/02/17 14:30 07/02/17 14:29 Dextrose (Dextrose 50% 50ML Syringe) 25-50ML OF 50% DW IV FOR... UD PRN IV 06/02/17 14:30 07/02/17 14:29 Glucagon (Glucagon Inj) 1 mg UD PRN SQ 06/02/17 14:30 07/02/17 14:29 Metoprolol Succinate (Toprol Xl Tab) 12.5 mg DAILY PO 06/03/17 08:00 07/03/17 07:59 Furosemide 80 mg/ Syringe 8 ml @ 4 mls/min TID IV 06/03/17 10:30 07/03/17 10:29 06/09/17 07:47 4 MLS/MIN Ferrous Sulfate (Feosol Tab) 325 mg DAILY PO 06/04/17 08:00 07/04/17 07:59 06/09/17 07:48 325 MG Metolazone (Zaroxolyn Tab) 5 mg DAILY@0800 PO 06/05/17 08:00 07/05/17 07:59 06/09/17 07:48 5 MG Albumin Human (Albumin 25%) 12.5 gm TID IV 06/06/17 14:00 06/09/17 13:59 06/09/17 07:47 12.5 GM Potassium Chloride (Klor-Con Tab) 20 meq BID PO 06/08/17 20:00 07/08/17 19:59 06/09/17 07:50 20 MEQ Last 24 Hours Test 06/08/17 11:34 06/08/17 16:28 06/08/17 19:43 06/09/17 07:27 Bedside Glucose 191 mg/dl 115 mg/dl 164 mg/dl White Blood Count 2.45 K/uL Red Blood Count 2.97 M/uL Hemoglobin 8.5 g/dL Hematocrit 25.6 % Mean Corpuscular Volume 86.2 fL Mean Corpuscular Hemoglobin 28.6 pg Mean Corpuscular Hemoglobin Concent 33.2 g/dl RDW Standard Deviation 49.3 fL RDW Coefficient of Variation 15.6 % Platelet Count 45 K/uL Mean Platelet Volume 9.8 fL Sodium Level 137 mmol/L Potassium Level 3.3 mmol/L Chloride Level 100 mmol/L Carbon Dioxide Level 27 mmol/L Anion Gap 10.0 mmol/L Blood Urea Nitrogen 68 mg/dl Creatinine 3.20 mg/dl Est Creatinine Clear Calc Drug Dose 19.8 ml/min Estimated GFR () 19.1 Estimated GFR (Non- 16.5 BUN/Creatinine Ratio 21.3 Random Glucose 117 mg/dl Calcium Level 8.6 mg/dl Iron Level 28 mcg/dl Total Iron Binding Capacity 173 mcg/dl Transferrin 147 mg/dl Transferrin % Saturation 13 % Test 06/09/17 07:44 Bedside Glucose 120 mg/dl Other Studies: 06/08/17 06/09/17 06/10/17 08:00 08:00 08:00 Intake Total 1340 ml 1530 ml Output Total 2675 ml 2825 ml Balance -1335 ml -1295 ml Assessment & Plan ckd stage 4 with patient with volume overload and cirrhosis. continues to have significant urine output. Continues to be on IV lasix 80 TID with albumin, Spirolonolactone 50mg daily, and mitolazone 5mg daily. Creatinine still stable at 3.2 despite high diuretic load. volume status improving. will continue current diuretics. Anemia: Hgb 8.5 and TSAT 13%. will order IV Venofer 100mg Daily x3 to help with iron repletion and anemia. will continue to follow. This patient was seen and treated with direct collaboration with Dr. Fowler. Thank you for the opportunity to participate in this patient's care. Appreciate the Consult. ATTENDING NOTE: I performed a history and physical examination of the patient, including specifically on history- pt continues to be pleasant, on physical exam-cta, + abdominal distention, +edema in legs, and my impression and plan are ckd stage 4 -cotninue current diuretics. found to be iron deficient and givine iv venofer. I have discussed the patient's management with Kathleen Barrera PA-C, Please refer to above note for the documented findings and plan of care. Marion Oncdioni DO
[2017-06-09] MEDS: IRON SUCROSE INJ 100 MG in SODIUM CHLORIDE 0.9% 100ML 100 ML IV SCH (12:06)
[2017-06-09] MEDS ORDERED: ALBUMIN HUMAN 25% 12.5 GM/50 ML VIAL IV SCH (16:00)
[2017-06-09] MEDS ORDERED: FUROSEMIDE INJ 80 MG in SYRINGE 0 ML IV SCH (16:00)
--- NOTE | 2017-06-09 21:01 | Progress Note ---
Medicine Progress Note Date & Time of Visit: Jun 09, 2017 at 11:30 . Subjective CC: Follow-up visit for cirrhosis and other problems. HPI: Doing well. Gradually losing weight. Less abdominal distention. Lower extremity edema improved. No nausea, vomiting. Not getting much sleep due to diuresis / voiding during the night. ROS: General- no fever, no chills Resp- no cough; no shortness of breath Cardiac- no chest pain GI- as noted above in HPI - no dysuria, no difficulty voiding . Objective Last 8 Hrs Date Time Temp Pulse Resp B/P (MAP) Pulse Ox O2 Delivery O2 Flow Rate FiO2 06/09/17 16:00 97 Room Air 06/09/17 15:58 36.4 70 16 93/60 (71) 100 Physical Exam: General- sitting in chair, no distress Lungs- clear Heart- RRR, II/ sys murmur LSB, no gallop appreciated; + JVD; 2+ pretibial and pedal edema Abdomen- + BS, distended, soft, nontender Extremities- no cyanosis; no calf tenderness Neuro- alert Skin- warm & dry . Laboratory Results: Last 24 Hours Test 06/09/17 07:27 06/09/17 07:44 06/09/17 11:43 06/09/17 16:45 White Blood Count 2.45 K/uL Red Blood Count 2.97 M/uL Hemoglobin 8.5 g/dL Hematocrit 25.6 % Mean Corpuscular Volume 86.2 fL Mean Corpuscular Hemoglobin 28.6 pg Mean Corpuscular Hemoglobin Concent 33.2 g/dl RDW Standard Deviation 49.3 fL RDW Coefficient of Variation 15.6 % Platelet Count 45 K/uL Mean Platelet Volume 9.8 fL Sodium Level 137 mmol/L Potassium Level 3.3 mmol/L Chloride Level 100 mmol/L Carbon Dioxide Level 27 mmol/L Anion Gap 10.0 mmol/L Blood Urea Nitrogen 68 mg/dl Creatinine 3.20 mg/dl Est Creatinine Clear Calc Drug Dose 19.8 ml/min Estimated GFR () 19.1 Estimated GFR (Non- 16.5 BUN/Creatinine Ratio 21.3 Random Glucose 117 mg/dl Calcium Level 8.6 mg/dl Iron Level 28 mcg/dl Total Iron Binding Capacity 173 mcg/dl Transferrin 147 mg/dl Transferrin % Saturation 13 % Bedside Glucose 120 mg/dl 171 mg/dl 135 mg/dl Test 06/09/17 20:28 Bedside Glucose 148 mg/dl Assessment & Plan CIRRHOSIS / ASCITES Cirrhosis attributed to passive liver congestion from CHF and/or SHANE. Presented with worsening ascites. Receiving IV furosemide q 8 hrs with albumin; will reduce dosing to BID. Continue spironolactone with caution in light of CKD. Effective diuresis per I/O's and wts. Weight down at least 4 kg and as high as 14 kg (initial wt with bed scale, subsequent wts with standing scale). Continue rifaximin. 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 Creatinine on admission 3.03. Creatinine today = 3.20. Continue diuretics with caution. Watch fluid status. Avoid potential nephrotoxins. Follow. HYPOKALEMIA Potassium as low as 3.1. K 3.3 today. Replace with caution in light of CKD and spironolactone. Follow. HISTORY SINOATRIAL DISEASE / PAROXYSMAL ATRIAL FIB S/P pacemaker. Continue metoprolol. No anticoagulants due to cirrhosis and thrombocytopenia. COPD / SLEEP APNEA Respiratory status stable. Continue CPAP. DM TYPE II Well-controlled. Hgb A1C 5.3 Tight control not indicated given advanced age and comorbidities. FBS this morning = 120. Continue NovoLog with liberal blood sugar goals. 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 Chronic thrombocytopenia. No transfusions at this time per current guidelines. Follow. VTE PROPHYLAXIS Chemoprophylaxis contraindicated in light of thrombocytopenia. SCD's. DISPOSITION Probable return to [facility]. Family Medicine follow-up with Dr. Garza. Nephrology follow-up with Dr. Chong. . Current Inpatient Medications: Current Inpatient Medications Medications (Trade) Dose Ordered Sig/Gin Route Start Time Stop Time Status Last Admin Dose Admin Ondansetron HCl (Zofran Inj) 4 mg Q6H PRN IV 06/02/17 14:15 07/02/17 14:14 Folic Acid (Folvite Tab) 1 mg DAILY PO 06/03/17 08:00 07/03/17 08:59 06/09/17 07:49 1 MG Midodrine (Proamatine Tab) 2.5 mg DAILY@0800,1800 PO 06/02/17 19:00 07/02/17 18:59 06/09/17 17:49 2.5 MG Nitroglycerin (Nitrostat Tab) 0.4 mg UD PRN UT 06/02/17 14:15 07/02/17 14:14 Ondansetron HCl (Zofran Tab) 4 mg Q6H PRN PO 06/02/17 14:15 07/02/17 14:14 Rifaximin (Xifaxan Tab) 550 mg BID PO 06/02/17 20:00 07/02/17 20:59 06/09/17 07:49 550 MG Spironolactone (Aldactone Tab) 50 mg QAM PO 06/03/17 08:00 07/03/17 08:59 06/09/17 07:49 50 MG Insulin Aspart (novoLOG ASPART) SLIDING SCALE If C... ACHS SC 06/02/17 16:00 07/02/17 15:59 06/09/17 18:03 3 UNITS Glucose (Glucose 40% Gel) 15-30 GRAMS 15 GRAMS... UD PRN PO 06/02/17 14:30 07/02/17 14:29 Glucose (Glucose Chew Tab) 4-8 Tablets 4 Tabl... UD PRN PO 06/02/17 14:30 07/02/17 14:29 Dextrose (Dextrose 50% 50ML Syringe) 25-50ML OF 50% DW IV FOR... UD PRN IV 06/02/17 14:30 07/02/17 14:29 Glucagon (Glucagon Inj) 1 mg UD PRN SQ 06/02/17 14:30 07/02/17 14:29 Metoprolol Succinate (Toprol Xl Tab) 12.5 mg DAILY PO 06/03/17 08:00 07/03/17 07:59 Ferrous Sulfate (Feosol Tab) 325 mg DAILY PO 06/04/17 08:00 07/04/17 07:59 06/09/17 07:48 325 MG Metolazone (Zaroxolyn Tab) 5 mg DAILY@0800 PO 06/05/17 08:00 07/05/17 07:59 06/09/17 07:48 5 MG Potassium Chloride (Klor-Con Tab) 20 meq BID PO 06/08/17 20:00 07/08/17 19:59 06/09/17 07:50 20 MEQ Iron Sucrose 100 mg/Sodium Chloride 105 ml @ 420 mls/hr DAILY@0900 IV 06/09/17 12:00 06/11/17 09:14 06/09/17 12:06 420 MLS/HR Furosemide 80 mg/ Syringe 8 ml @ 4 mls/min BID@0900,1600 IV 06/09/17 16:00 07/09/17 15:59 06/09/17 15:47 4 MLS/MIN Albumin Human (Albumin 25%) 12.5 gm BID@0900,1600 IV 06/09/17 16:00 06/12/17 15:59 06/09/17 15:46 12.5 GM
[2017-06-10 07:21] VITALS: BP 90/49; PULSE 72; TEMP 36.9; O2SAT 100
[2017-06-10 07:23] LABS: CALCIUM 8.8 mg/dl (8.5-10.1); CREATININE 3.49 mg/dl (0.60-1.40); POTASSIUM 3.7 mmol/L (3.5-5.1)
[2017-06-10] MEDS: INSULIN ASPART 100 UNITS/ML 3 ML PEN SC SCH ×4 (08:46→20:35)
[2017-06-10] MEDS: SPIRONOLACTONE 25 MG TAB PO SCH (08:48)
[2017-06-10] MEDS: POTASSIUM CHLORIDE 20 MEQ TABCR PO SCH ×2 (08:49→20:27)
[2017-06-10] MEDS: METOLAZONE 5 MG TAB PO SCH (08:50)
[2017-06-10] MEDS: METOPROLOL SUCC 25MG EXT REL TAB PO SCH (08:50)
[2017-06-10] MEDS: RIFAXIMIN TAB 550 MG TAB PO SCH ×2 (08:50→20:27)
[2017-06-10] MEDS: MIDODRINE 2.5 MG TAB PO SCH ×2 (08:50→18:16)
[2017-06-10] MEDS: IRON SUCROSE INJ 100 MG in SODIUM CHLORIDE 0.9% 100ML 100 ML IV SCH (10:15)
[2017-06-10] MEDS: FERROUS SULFATE 325 MG TAB PO SCH (10:46)
[2017-06-10 15:40] VITALS: BP 110/68; PULSE 67; TEMP 36.2
--- NOTE | 2017-06-10 18:45 | Progress Note ---
Medicine Progress Note Date & Time of Visit: Jun 10, 2017 at 10:10 . Subjective CC: Follow-up visit for cirrhosis and other problems. HPI: Doing well. No SOB. Less abdominal distention. Lower extremity edema improved. No nausea, vomiting. ROS: General- no fever, no chills Resp- no cough; no shortness of breath Cardiac- no chest pain GI- as noted above in HPI - no dysuria, no difficulty voiding . Objective Last 8 Hrs Date Time Temp Pulse Resp B/P (MAP) Pulse Ox O2 Delivery O2 Flow Rate FiO2 06/10/17 16:00 Room Air 06/10/17 15:40 36.2 67 18 110/68 (82) Room Air Physical Exam: General- lying in bed, no distress Lungs- clear Heart- RRR, II/ sys murmur LSB, no gallop appreciated; + JVD; 2+ pretibial and pedal edema Abdomen- + BS, distended, soft, nontender Extremities- no cyanosis; no calf tenderness Neuro- alert Skin- warm & dry . Laboratory Results: Last 24 Hours Test 06/09/17 20:28 06/10/17 06:25 06/10/17 07:53 06/10/17 11:59 Bedside Glucose 148 mg/dl 130 mg/dl 187 mg/dl Sodium Level 133 mmol/L Potassium Level 3.7 mmol/L Chloride Level 96 mmol/L Carbon Dioxide Level 28 mmol/L Anion Gap 9.0 mmol/L Blood Urea Nitrogen 74 mg/dl Creatinine 3.49 mg/dl Est Creatinine Clear Calc Drug Dose 18.1 ml/min Estimated GFR () 17.2 Estimated GFR (Non- 14.9 BUN/Creatinine Ratio 21.3 Random Glucose 119 mg/dl Calcium Level 8.8 mg/dl Test 06/10/17 16:40 Bedside Glucose 123 mg/dl Assessment & Plan CIRRHOSIS / ASCITES Cirrhosis attributed to passive liver congestion from CHF and/or SHANE. Presented with worsening ascites. Received IV furosemide q 8 hrs with albumin; reduced dosing to BID. Creatinine now rising- hold furosemide today. Continue spironolactone with caution in light of CKD. Effective diuresis per I/O's and wts. Weight down at least 4 kg and as high as 14 kg (initial wt with bed scale, subsequent wts with standing scale). Continue rifaximin. 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 Creatinine on admission 3.03. Creatinine today = 3.49. Hold diuretics today. Watch fluid status. Avoid potential nephrotoxins. Follow. HYPOKALEMIA Potassium as low as 3.1. K 3.7 today. Replace with caution in light of CKD and spironolactone. Follow. HISTORY SINOATRIAL DISEASE / PAROXYSMAL ATRIAL FIB S/P pacemaker. Continue metoprolol. No anticoagulants due to cirrhosis and thrombocytopenia. COPD / SLEEP APNEA Respiratory status stable. Continue CPAP. DM TYPE II Well-controlled. Hgb A1C 5.3 Tight control not indicated given advanced age and comorbidities. FBS this morning = 130. Continue NovoLog with liberal blood sugar goals. 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 Chronic thrombocytopenia. No transfusions at this time per current guidelines. Follow. VTE PROPHYLAXIS Chemoprophylaxis contraindicated in light of thrombocytopenia. SCD's. DISPOSITION Probable return to [facility]. Family Medicine follow-up with Dr. Garza. Nephrology follow-up with Dr. Chong. . Current Inpatient Medications: Current Inpatient Medications Medications (Trade) Dose Ordered Sig/Gin Route Start Time Stop Time Status Last Admin Dose Admin Ondansetron HCl (Zofran Inj) 4 mg Q6H PRN IV 06/02/17 14:15 07/02/17 14:14 Folic Acid (Folvite Tab) 1 mg DAILY PO 06/03/17 08:00 07/03/17 08:59 06/10/17 08:49 1 MG Midodrine (Proamatine Tab) 2.5 mg DAILY@0800,1800 PO 06/02/17 19:00 07/02/17 18:59 06/10/17 18:16 2.5 MG Nitroglycerin (Nitrostat Tab) 0.4 mg UD PRN UT 06/02/17 14:15 07/02/17 14:14 Ondansetron HCl (Zofran Tab) 4 mg Q6H PRN PO 06/02/17 14:15 07/02/17 14:14 Rifaximin (Xifaxan Tab) 550 mg BID PO 06/02/17 20:00 07/02/17 20:59 06/10/17 08:50 550 MG Spironolactone (Aldactone Tab) 50 mg QAM PO 06/03/17 08:00 07/03/17 08:59 06/10/17 08:48 50 MG Insulin Aspart (novoLOG ASPART) SLIDING SCALE If C... ACHS SC 06/02/17 16:00 07/02/17 15:59 06/10/17 18:16 5 UNITS Glucose (Glucose 40% Gel) 15-30 GRAMS 15 GRAMS... UD PRN PO 06/02/17 14:30 07/02/17 14:29 Glucose (Glucose Chew Tab) 4-8 Tablets 4 Tabl... UD PRN PO 06/02/17 14:30 07/02/17 14:29 Dextrose (Dextrose 50% 50ML Syringe) 25-50ML OF 50% DW IV FOR... UD PRN IV 06/02/17 14:30 07/02/17 14:29 Glucagon (Glucagon Inj) 1 mg UD PRN SQ 06/02/17 14:30 07/02/17 14:29 Metoprolol Succinate (Toprol Xl Tab) 12.5 mg DAILY PO 06/03/17 08:00 07/03/17 07:59 Ferrous Sulfate (Feosol Tab) 325 mg DAILY PO 06/04/17 08:00 07/04/17 07:59 06/10/17 10:46 325 MG Metolazone (Zaroxolyn Tab) 5 mg DAILY@0800 PO 06/05/17 08:00 07/05/17 07:59 06/10/17 08:50 5 MG Potassium Chloride (Klor-Con Tab) 20 meq BID PO 06/08/17 20:00 07/08/17 19:59 06/10/17 08:49 20 MEQ Iron Sucrose 100 mg/Sodium Chloride 105 ml @ 420 mls/hr DAILY@0900 IV 06/09/17 12:00 06/11/17 09:14 06/10/17 10:15 420 MLS/HR
[2017-06-10 22:10] VITALS: PULSE 76; O2SAT 98
[2017-06-10 23:15] VITALS: BP 88/58; PULSE 72; TEMP 36.7; O2SAT 98
[2017-06-11 06:50] LABS: CALCIUM 8.8 mg/dl (8.5-10.1); CREATININE 3.42 mg/dl (0.60-1.40); POTASSIUM 3.6 mmol/L (3.5-5.1)
[2017-06-11 07:43] VITALS: BP 92/55; PULSE 74; TEMP 36.7; O2SAT 98
[2017-06-11] MEDS: INSULIN ASPART 100 UNITS/ML 3 ML PEN SC SCH ×4 (09:00→21:00)
[2017-06-11] MEDS: SPIRONOLACTONE 25 MG TAB PO SCH (09:01)
[2017-06-11] MEDS: FERROUS SULFATE 325 MG TAB PO SCH (09:02)
[2017-06-11] MEDS: MIDODRINE 2.5 MG TAB PO SCH ×2 (09:03→18:09)
[2017-06-11] MEDS: POTASSIUM CHLORIDE 20 MEQ TABCR PO SCH ×2 (09:03→20:33)
[2017-06-11] MEDS: METOPROLOL SUCC 25MG EXT REL TAB PO SCH (09:03)
[2017-06-11] MEDS: METOLAZONE 5 MG TAB PO SCH (09:04)
[2017-06-11] MEDS: RIFAXIMIN TAB 550 MG TAB PO SCH ×2 (09:04→20:33)
[2017-06-11] MEDS: IRON SUCROSE INJ 100 MG in SODIUM CHLORIDE 0.9% 100ML 100 ML IV SCH (09:08)
[2017-06-11 15:45] VITALS: BP 103/64; PULSE 78; TEMP 36.7; O2SAT 100
--- NOTE | 2017-06-11 21:01 | Progress Note ---
Medicine Progress Note Date & Time of Visit: Jun 11, 2017 at 09:50 . Subjective CC: Follow-up visit for cirrhosis and other problems. HPI: Furosemide on hold due to rising creatinine. Doing well. No SOB. Less abdominal distention. Lower extremity edema improved. No nausea, vomiting, diarrhea. ROS: General- no fever, no chills Resp- no cough; no shortness of breath Cardiac- no chest pain GI- as noted above in HPI - no dysuria, no difficulty voiding . Objective Last 8 Hrs Date Time Temp Pulse Resp B/P (MAP) Pulse Ox O2 Delivery O2 Flow Rate FiO2 06/11/17 16:00 Room Air 06/11/17 15:45 36.7 78 18 103/64 (77) 100 Room Air Physical Exam: General- lying in bed, no distress Lungs- clear Heart- RRR, II/ sys murmur LSB, no gallop appreciated; + JVD; 2+ pretibial and pedal edema Abdomen- + BS, distended, soft, nontender Extremities- no cyanosis; no calf tenderness Neuro- alert Skin- warm & dry . Laboratory Results: Last 24 Hours Test 06/11/17 05:37 06/11/17 07:47 06/11/17 11:42 06/11/17 16:52 Sodium Level 134 mmol/L Potassium Level 3.6 mmol/L Chloride Level 98 mmol/L Carbon Dioxide Level 26 mmol/L Anion Gap 10.0 mmol/L Blood Urea Nitrogen 76 mg/dl Creatinine 3.42 mg/dl Est Creatinine Clear Calc Drug Dose 18.5 ml/min Estimated GFR () 17.7 Estimated GFR (Non- 15.2 BUN/Creatinine Ratio 22.2 Random Glucose 111 mg/dl Calcium Level 8.8 mg/dl Bedside Glucose 132 mg/dl 193 mg/dl 117 mg/dl Test 06/11/17 20:14 Bedside Glucose 151 mg/dl Assessment & Plan CIRRHOSIS / ASCITES Cirrhosis attributed to passive liver congestion from CHF and/or SHANE. Presented with worsening ascites. Received IV furosemide q 8 hrs with albumin; reduced dosing to BID. Creatinine now rising- holding furosemide. Continue spironolactone with caution in light of CKD. Effective diuresis per I/O's and wts. Weight down at least 7 kg and as high as 15 kg (initial wt with bed scale, subsequent wts with standing scale). Continue rifaximin. 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 Creatinine on admission 3.03. Creatinine today = 3.42. Continue to hold diuretics today. Watch fluid status. Avoid potential nephrotoxins. Follow. HYPOKALEMIA Potassium as low as 3.1. K 3.6 today. Replace with caution in light of CKD and spironolactone. Follow. HISTORY SINOATRIAL DISEASE / PAROXYSMAL ATRIAL FIB S/P pacemaker. Continue metoprolol. No anticoagulants due to cirrhosis and thrombocytopenia. COPD / SLEEP APNEA Respiratory status stable. Continue CPAP. DM TYPE II Well-controlled. Hgb A1C 5.3 Tight control not indicated given advanced age and comorbidities. FBS this morning = 132. Continue NovoLog with liberal blood sugar goals. 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 Chronic thrombocytopenia. No transfusions at this time per current guidelines. Follow. VTE PROPHYLAXIS Chemoprophylaxis contraindicated in light of thrombocytopenia. SCD's. DISPOSITION Probable return to [facility]. Family Medicine follow-up with Dr. Garza. Nephrology follow-up with Dr. Chong. ADDENDUM: Son and daughter given update by phone. Daughter requests that Case Management make arrangements for transportation to [facility]. . Current Inpatient Medications: Current Inpatient Medications Medications (Trade) Dose Ordered Sig/Gin Route Start Time Stop Time Status Last Admin Dose Admin Ondansetron HCl (Zofran Inj) 4 mg Q6H PRN IV 06/02/17 14:15 07/02/17 14:14 Folic Acid (Folvite Tab) 1 mg DAILY PO 06/03/17 08:00 07/03/17 08:59 06/11/17 09:02 1 MG Midodrine (Proamatine Tab) 2.5 mg DAILY@0800,1800 PO 06/02/17 19:00 07/02/17 18:59 06/11/17 18:09 2.5 MG Nitroglycerin (Nitrostat Tab) 0.4 mg UD PRN UT 06/02/17 14:15 07/02/17 14:14 Ondansetron HCl (Zofran Tab) 4 mg Q6H PRN PO 06/02/17 14:15 07/02/17 14:14 Rifaximin (Xifaxan Tab) 550 mg BID PO 06/02/17 20:00 07/02/17 20:59 06/11/17 20:33 550 MG Spironolactone (Aldactone Tab) 50 mg QAM PO 06/03/17 08:00 07/03/17 08:59 06/11/17 09:01 50 MG Insulin Aspart (novoLOG ASPART) SLIDING SCALE If C... ACHS SC 06/02/17 16:00 07/02/17 15:59 06/11/17 18:08 4 UNITS Glucose (Glucose 40% Gel) 15-30 GRAMS 15 GRAMS... UD PRN PO 06/02/17 14:30 07/02/17 14:29 Glucose (Glucose Chew Tab) 4-8 Tablets 4 Tabl... UD PRN PO 06/02/17 14:30 07/02/17 14:29 Dextrose (Dextrose 50% 50ML Syringe) 25-50ML OF 50% DW IV FOR... UD PRN IV 06/02/17 14:30 07/02/17 14:29 Glucagon (Glucagon Inj) 1 mg UD PRN SQ 06/02/17 14:30 07/02/17 14:29 Metoprolol Succinate (Toprol Xl Tab) 12.5 mg DAILY PO 06/03/17 08:00 07/03/17 07:59 Ferrous Sulfate (Feosol Tab) 325 mg DAILY PO 06/04/17 08:00 07/04/17 07:59 06/11/17 09:02 325 MG Metolazone (Zaroxolyn Tab) 5 mg DAILY@0800 PO 06/05/17 08:00 07/05/17 07:59 06/11/17 09:04 5 MG Potassium Chloride (Klor-Con Tab) 20 meq BID PO 06/08/17 20:00 07/08/17 19:59 06/11/17 20:33 20 MEQ
[2017-06-11 22:12] VITALS: PULSE 71; O2SAT 97
[2017-06-11 23:21] VITALS: BP 89/54; PULSE 71; TEMP 36.8; O2SAT 100
[2017-06-12 06:35] LABS: CALCIUM 8.7 mg/dl (8.5-10.1); CREATININE 3.21 mg/dl (0.60-1.40); POTASSIUM 3.8 mmol/L (3.5-5.1)
[2017-06-12] MEDS: POTASSIUM CHLORIDE 20 MEQ TABCR PO SCH (07:42)
[2017-06-12] MEDS: METOLAZONE 5 MG TAB PO SCH (07:43)
[2017-06-12] MEDS: SPIRONOLACTONE 25 MG TAB PO SCH (07:43)
[2017-06-12] MEDS: RIFAXIMIN TAB 550 MG TAB PO SCH (07:43)
[2017-06-12] MEDS: METOPROLOL SUCC 25MG EXT REL TAB PO SCH (07:44)
[2017-06-12] MEDS: FERROUS SULFATE 325 MG TAB PO SCH (07:44)
[2017-06-12] MEDS: MIDODRINE 2.5 MG TAB PO SCH (07:44)
[2017-06-12 08:00] VITALS: O2SAT 97
[2017-06-12 08:06] VITALS: BP 105/65; PULSE 71; TEMP 36.5; O2SAT 99
[2017-06-12] MEDS: INSULIN ASPART 100 UNITS/ML 3 ML PEN SC SCH ×2 (08:55→12:58)
--- NOTE | 2017-06-12 09:17 | Nephrology Progress Note ---
Nephrology Progress Note Date of Service: Jun 12, 2017. Subjective 87 yo male with cirrhosis and volume overload in the setting of ckd. pts volume status improved. pt pleasant. no complaints. inquiring about going home today. on iv venofer daily for past three days and tolerating it well. creatinine peaked at 3.49 and iv lasix was stopped. trending down now. Objective Date Time Temp Pulse Resp B/P (MAP) Pulse Ox O2 Delivery O2 Flow Rate FiO2 06/12/17 08:06 36.5 71 20 105/65 (78) 99 Room Air 06/12/17 08:00 97 Room Air 06/12/17 00:00 CPAP 06/11/17 23:21 36.8 71 20 89/54 (66) 100 CPAP 06/11/17 22:12 71 97 2.0 06/11/17 20:00 Room Air 06/11/17 16:00 Room Air 06/11/17 15:45 36.7 78 18 103/64 (77) 100 Room Air Physical Exam: General-aaox3 Eyes-no scleral icterus ENT-mmm Neck-supple Lungs-cta Heart-distant heart sounds Abdomen-+distention, soft, +bs Extremities-minimal edema Neuro-nonfocal Current Inpatient Medications Medications (Trade) Dose Ordered Sig/Gin Route Start Time Stop Time Status Last Admin Dose Admin Ondansetron HCl (Zofran Inj) 4 mg Q6H PRN IV 06/02/17 14:15 07/02/17 14:14 Folic Acid (Folvite Tab) 1 mg DAILY PO 06/03/17 08:00 07/03/17 08:59 06/12/17 07:43 1 MG Midodrine (Proamatine Tab) 2.5 mg DAILY@0800,1800 PO 06/02/17 19:00 07/02/17 18:59 06/12/17 07:44 2.5 MG Nitroglycerin (Nitrostat Tab) 0.4 mg UD PRN UT 06/02/17 14:15 07/02/17 14:14 Ondansetron HCl (Zofran Tab) 4 mg Q6H PRN PO 06/02/17 14:15 07/02/17 14:14 Rifaximin (Xifaxan Tab) 550 mg BID PO 06/02/17 20:00 07/02/17 20:59 06/12/17 07:43 550 MG Spironolactone (Aldactone Tab) 50 mg QAM PO 06/03/17 08:00 07/03/17 08:59 06/12/17 07:43 50 MG Insulin Aspart (novoLOG ASPART) SLIDING SCALE If C... ACHS SC 06/02/17 16:00 07/02/17 15:59 06/12/17 08:55 6 UNITS Glucose (Glucose 40% Gel) 15-30 GRAMS 15 GRAMS... UD PRN PO 06/02/17 14:30 07/02/17 14:29 Glucose (Glucose Chew Tab) 4-8 Tablets 4 Tabl... UD PRN PO 06/02/17 14:30 07/02/17 14:29 Dextrose (Dextrose 50% 50ML Syringe) 25-50ML OF 50% DW IV FOR... UD PRN IV 06/02/17 14:30 07/02/17 14:29 Glucagon (Glucagon Inj) 1 mg UD PRN SQ 06/02/17 14:30 07/02/17 14:29 Metoprolol Succinate (Toprol Xl Tab) 12.5 mg DAILY PO 06/03/17 08:00 07/03/17 07:59 06/12/17 07:44 12.5 MG Ferrous Sulfate (Feosol Tab) 325 mg DAILY PO 06/04/17 08:00 07/04/17 07:59 06/12/17 07:44 325 MG Metolazone (Zaroxolyn Tab) 5 mg DAILY@0800 PO 06/05/17 08:00 07/05/17 07:59 06/12/17 07:43 5 MG Potassium Chloride (Klor-Con Tab) 20 meq BID PO 06/08/17 20:00 07/08/17 19:59 06/12/17 07:42 20 MEQ Last 24 Hours Test 06/11/17 11:42 06/11/17 16:52 06/11/17 20:14 06/12/17 05:32 Bedside Glucose 193 mg/dl 117 mg/dl 151 mg/dl Sodium Level 136 mmol/L Potassium Level 3.8 mmol/L Chloride Level 99 mmol/L Carbon Dioxide Level 26 mmol/L Anion Gap 11.0 mmol/L Blood Urea Nitrogen 76 mg/dl Creatinine 3.21 mg/dl Est Creatinine Clear Calc Drug Dose 19.4 ml/min Estimated GFR () 19.1 Estimated GFR (Non- 16.4 BUN/Creatinine Ratio 23.8 Random Glucose 114 mg/dl Calcium Level 8.7 mg/dl Test 06/12/17 07:44 Bedside Glucose 125 mg/dl Assessment & Plan ckd stage 4 with creatinine that worsened during hospitilization up to 3.49 in the setting of iv lasix, spironolactone, metolazone. creatinine trending down now off the lasix. volume status is acceptable. currently on spironolactone 50mg a day, metolazone 5mg a day. upon discharge, consider restarting home lasix 40mg po bid in addition to the metolazone and rechecking bmp again on . Anemia: iron deficiency anemia. continue venofer 100mg iv daily while in house. so far has had three doses.
[2017-06-12] MEDS ORDERED: IRON SUCROSE INJ 100 MG in SODIUM CHLORIDE 0.9% 100ML 100 ML IV SCH (10:00)
[2017-06-12 11:53] VITALS: BP 105/65; PULSE 71; TEMP 36.5; O2SAT 99
--- NOTE | 2017-06-12 11:57 | Progress Note ---
Medicine Progress Note Date & Time of Visit: Jun 12, 2017 at 11:57 . Subjective Doing well. No fever. No CP, cough, SOB, abdominal pain, nausea, vomiting. . Objective Last 8 Hrs Date Time Temp Pulse Resp B/P (MAP) Pulse Ox O2 Delivery O2 Flow Rate FiO2 06/12/17 11:53 36.5 71 20 99 Room Air 06/12/17 08:06 36.5 71 20 105/65 (78) 99 Room Air 06/12/17 08:00 97 Room Air Physical Exam: General- lying in bed, no distress Lungs- clear; no respiratory distress Heart- RRR, II/ sys murmur LSB, no gallop appreciated; + JVD; 2+ pretibial and pedal edema Abdomen- + BS, distended, soft, nontender Extremities- no cyanosis; no calf tenderness Neuro- alert Skin- warm & dry . Laboratory Results: Last 24 Hours Test 06/11/17 16:52 06/11/17 20:14 06/12/17 05:32 06/12/17 07:44 Bedside Glucose 117 mg/dl 151 mg/dl 125 mg/dl Sodium Level 136 mmol/L Potassium Level 3.8 mmol/L Chloride Level 99 mmol/L Carbon Dioxide Level 26 mmol/L Anion Gap 11.0 mmol/L Blood Urea Nitrogen 76 mg/dl Creatinine 3.21 mg/dl Est Creatinine Clear Calc Drug Dose 19.4 ml/min Estimated GFR () 19.1 Estimated GFR (Non- 16.4 BUN/Creatinine Ratio 23.8 Random Glucose 114 mg/dl Calcium Level 8.7 mg/dl Assessment & Plan CIRRHOSIS / ASCITES Cirrhosis attributed to passive liver congestion from CHF and/or SHANE. Presented with worsening ascites. Received IV furosemide q 8 hrs with albumin; reduced dosing to BID. Creatinine now rising- holding furosemide. Continue spironolactone with caution in light of CKD. Effective diuresis per I/O's and wts. Weight down at least 7 kg and possibly as high as 15 kg (initial wt with bed scale, subsequent wts with standing scale). Discharge on metolazone 5 mg daily, furosemide 40 mg daily, spironolactone 50 mg daily. Continue rifaximin. 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 Creatinine on admission 3.03. Creatinine today = 3.21. Follow. HYPOKALEMIA Potassium as low as 3.1. K 3.8 today. Follow. HISTORY SINOATRIAL DISEASE / PAROXYSMAL ATRIAL FIB S/P pacemaker. Continue metoprolol. No anticoagulants due to cirrhosis and thrombocytopenia. COPD / SLEEP APNEA Respiratory status stable. Continue CPAP. DM TYPE II Well-controlled. Hgb A1C 5.3 Tight control not indicated given advanced age and comorbidities. FBS this morning = 125. Continue NovoLog with liberal blood sugar goals. 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 Chronic thrombocytopenia. No transfusions at this time per current guidelines. Follow. VTE PROPHYLAXIS Chemoprophylaxis contraindicated in light of thrombocytopenia. SCD's. DISPOSITION Returning to [facility]. Family Medicine follow-up with Dr. Garza. Nephrology follow-up with Dr. Chong. . Current Inpatient Medications: Current Inpatient Medications Medications (Trade) Dose Ordered Sig/Gin Route Start Time Stop Time Status Last Admin Dose Admin Ondansetron HCl (Zofran Inj) 4 mg Q6H PRN IV 06/02/17 14:15 07/02/17 14:14 Folic Acid (Folvite Tab) 1 mg DAILY PO 06/03/17 08:00 07/03/17 08:59 06/12/17 07:43 1 MG Midodrine (Proamatine Tab) 2.5 mg DAILY@0800,1800 PO 06/02/17 19:00 07/02/17 18:59 06/12/17 07:44 2.5 MG Nitroglycerin (Nitrostat Tab) 0.4 mg UD PRN UT 06/02/17 14:15 07/02/17 14:14 Ondansetron HCl (Zofran Tab) 4 mg Q6H PRN PO 06/02/17 14:15 07/02/17 14:14 Rifaximin (Xifaxan Tab) 550 mg BID PO 06/02/17 20:00 07/02/17 20:59 06/12/17 07:43 550 MG Spironolactone (Aldactone Tab) 50 mg QAM PO 06/03/17 08:00 07/03/17 08:59 06/12/17 07:43 50 MG Insulin Aspart (novoLOG ASPART) SLIDING SCALE If C... ACHS SC 06/02/17 16:00 2/11/18 15:59 06/12/17 08:55 6 UNITS Glucose (Glucose 40% Gel) 15-30 GRAMS 15 GRAMS... UD PRN PO 06/02/17 14:30 07/02/17 14:29 Glucose (Glucose Chew Tab) 4-8 Tablets 4 Tabl... UD PRN PO 06/02/17 14:30 07/02/17 14:29 Dextrose (Dextrose 50% 50ML Syringe) 25-50ML OF 50% DW IV FOR... UD PRN IV 06/02/17 14:30 07/02/17 14:29 Glucagon (Glucagon Inj) 1 mg UD PRN SQ 06/02/17 14:30 07/02/17 14:29 Metoprolol Succinate (Toprol Xl Tab) 12.5 mg DAILY PO 06/03/17 08:00 07/03/17 07:59 06/12/17 07:44 12.5 MG Ferrous Sulfate (Feosol Tab) 325 mg DAILY PO 06/04/17 08:00 07/04/17 07:59 06/12/17 07:44 325 MG Metolazone (Zaroxolyn Tab) 5 mg DAILY@0800 PO 06/05/17 08:00 07/05/17 07:59 06/12/17 07:43 5 MG Potassium Chloride (Klor-Con Tab) 20 meq BID PO 06/08/17 20:00 07/08/17 19:59 06/12/17 07:42 20 MEQ Iron Sucrose 100 mg/Sodium Chloride 105 ml @ 420 mls/hr DAILY@1000 IV 06/12/17 10:00 06/14/17 10:14 06/12/17 10:00 420 MLS/HR
[2017-06-12] MEDS ORDERED: ZRX5 PO (12:01)
--- NOTE | 2017-06-12 12:12 | Discharge Instructions ---
Discharge Instructions Date of Service Jun 12, 2017. Admission Reason for Admission: fluid accumulation in abdomen and legs . Discharge Discharge Diagnosis / Problem: fluid accumulation in abdomen and legs Discharge Goals Goal(s): Decrease discomfort, Improve disease control Activity Recommendations Activity Limitations: resume your previous activity . Instructions / Follow-Up Instructions / Follow-Up APPOINTMENTS: FAMILY MEDICINE 06/19/2017 11:20 AM Anastacio Garza MD NEPHROLOGY 09/14/2017 9:40 AM Alona Chong MD OTHER INSTRUCTIONS: Weigh daily in the morning. Home health nursing to draw basic metabolic profile on 06/15/17 and send reports to Dr. Garza and Dr. Chong. New medication: metolazone (Zaroxolyn) 5 mg each morning, about 30 min before your morning dose of furosemide (Lasix) prescription sent to [facility]. Keep your feet elevated when possible. Seek medical attention if you have: * temperature above 101 * chest pain or trouble breathing * abdominal pain, nausea, vomiting * worsening fluid retention in legs or abdomen, weight gain more than 3 lbs * diarrhea, dark stools or bloody stools * any unanswered questions or concerns Call 911 if symptoms are severe. Call if you have any questions or problems. My cell # is [phone]. You can also reach a [facility] hospitalist on duty at [facility] 24 hours a day by calling [phone]. Please take good care of yourself. David Burleson . Current Hospital Diet Patient's current hospital diet: Low Sodium Diet (2gm Na), Renal Diet, Diabetes Type 2 Diet Discharge Diet Recommended Diet: AHA Diet (Heart Healthy), Diabetes Type 2 Diet, Renal Diet Fluid Restriction: 1500 ml (6 cups) Pending Studies Studies pending at discharge: no Laboratory Results Hemoglobin A1c Test 06/03/17 06:48 Range/Units Estimated Average Glucose 105 mg/dl Hemoglobin A1c 5.3 4.5-5.6 % Medical Emergencies . Who to Call and When: Medical Emergencies: If at any time you feel your situation is an emergency, please call 911 immediately. . Non-Emergent Contact Non-Emergency issues call your: Primary Care Provider, Hospital Doctor, Energy Specialist . . "Provider Documentation" section prepared by David Burleson. . VTE Core Measure Inpt VTE Proph given/why not?: SCD's
--- NOTE | 2017-06-13 19:39 | Discharge Summary ---
Discharge Summary Date of Service Jun 13, 2017. 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 (6) Dyslipidemia Status: Chronic (7) History of ankle fracture Status: Chronic (8) History of bladder cancer Status: Chronic (9) Hypertrophic cardiomyopathy Status: Chronic (10) Myelodysplastic syndrome Status: Chronic (11) Paroxysmal atrial fibrillation Status: Chronic (12) Sinoatrial node dysfunction Status: Chronic (13) Sleep apnea, obstructive Permanent Comment: CPAP Status: Chronic (14) Thrombocytopenia Status: Chronic Surgical Problems: (1) Status post cardiac pacemaker procedure Status: Chronic (2) Status post myomectomy Permanent Comment: for hypertrophic cardiomyopathy Status: Chronic . Procedures: IV medications PT OT . Consultations: Nephrology . Medication Reconciliation New Medications: Metolazone (Metolazone) 5 Mg Tab 5 MG PO DAILY@0800, #30 TAB 5 Refills Take 30 min before taking morning dose of furosemide (Lasix). Continued Medications: Ferrous Sulfate (Iron) 325 Mg Tab 325 MG PO DAILY Folic Acid (Folic Acid) 1 Mg Tab 1 MG PO DAILY Furosemide (Lasix) 80 Mg Tab 40 MG PO BID 1/2 OF AN 80 MG TABLET Insulin Aspart (Novolog) 100 Units/Ml Inj SQ ACHS SLIDING SCALE 1 UNIT FOR EVERY 20 MG/DL INCREASE IN GLUCOSE ABOVE 150 Insulin Glargine (Lantus Solostar) 100 Unit/Ml Inj 14 UNITS SQ HS Metoprolol Succ (Toprol Xl) (Toprol-Xl) 25 Mg Tabcr 12.5 MG PO DAILY, TAB Midodrine (Midodrine HCl) 2.5 Mg Tab 2.5 MG PO BID Nitroglycerin (Nitrostat) 0.4 Mg Tab 0.4 MG UT UD PRN for Chest Pain Ondansetron Hcl (Zofran) 4 Mg Tab 4 MG PO Q6H PRN for Nausea, TAB Rifaximin (Xifaxan) 550 Mg Tab 550 MG PO BID, TAB Spironolactone (Aldactone) 25 Mg Tab 50 MG PO QAM, TAB Admission Information HPI (per Admitting provider): This is an 87 year old male with history of SHANE cirrhosis and recurrent ascites , CKD stage IV, DM2, COPD, Paroxysmal A. Fib presents with swelling of the lower extremities and abdomen. [facility] was [facility] - nursing stated that his lower extremities and abdomen were getting larger and more filled with fluid. Patient has had recurrent hospitalizations due to ascites and SHANE cirrhosis. Currently, he is denying any symptoms including fevers/chills, denies diarrhea/nausea/vomiting; denies abdominal pain. . Physical Exam (per Admitting): General Appearance: no apparent distress, + pertinent finding (resting tremors) Head: normocephalic, atraumatic Eyes: normal inspection ENT: + pertinent finding (hard of hearing) Respiratory/Chest: no respiratory distress, no accessory muscle use, + decreased breath sounds Cardiovascular: regular rate, rhythm, no murmur Abdomen/GI: non tender, + distended (distended, firm abdomen) Extremities/Musculoskelatal: + swelling, + pertinent finding (+3 pitting edema b/l LE, some skin changes, non-infectious appearance) Neurologic/Psych: no motor/sensory deficits, alert, normal mood/affect, + pertinent finding (some memory issues, does not recall where he came from, but knows he was sent to the hospital due to swelling) Skin: + pertinent finding (mild jaundice) Hospital Course CIRRHOSIS / ASCITES Presented with worsening ascites and lower extremity edema. 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 Received IV furosemide q 8 hrs with albumin for several days. Effective diuresis per I/O's and wts. Weight down at least 7 kg and possibly as high as 15 kg (initial wt with bed scale, subsequent wts with standing scale). Creatinine eventually armando and furosemide was held for 2 days, then resumed. Discharged on metolazone 5 mg daily, furosemide 40 mg daily, spironolactone 50 mg daily. Continue rifaximin. 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 Creatinine on admission 3.03. Creatinine day of discharge was 3.21. Follow. HYPOKALEMIA Potassium as low as 3.1. K day of discharge was 3.8. Follow. HISTORY SINOATRIAL DISEASE / PAROXYSMAL ATRIAL FIB S/P pacemaker. Continue metoprolol. No anticoagulants due to cirrhosis and thrombocytopenia. COPD / SLEEP APNEA Respiratory status stable. Continue CPAP. DM TYPE II Well-controlled. Hgb A1C 5.3 Tight control not indicated given advanced age and comorbidities. FBS day of discharge was 125. Continue NovoLog with liberal blood sugar goals. 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 Chronic thrombocytopenia. No transfusions at this time per current guidelines. Follow. VTE PROPHYLAXIS Chemoprophylaxis contraindicated in light of thrombocytopenia. SCD's. DISPOSITION Returning [facility]. Family Medicine follow-up with Dr. Garza. Nephrology follow-up with Dr. Chong. . Total time spent on discharge = 40 min. This includes examination of the patient, discharge planning, medication reconciliation, and communication with other providers. . Discharge Instructions Date of Service Jun 12, 2017. Admission Reason for Admission: fluid accumulation in abdomen and legs . Discharge Discharge Diagnosis / Problem: fluid accumulation in abdomen and legs Discharge Goals Goal(s): Decrease discomfort, Improve disease control Activity Recommendations Activity Limitations: resume your previous activity . Instructions / Follow-Up Instructions / Follow-Up APPOINTMENTS: FAMILY MEDICINE 06/19/2017 11:20 AM Anastacio Garza MD NEPHROLOGY 09/14/2017 9:40 AM Alona Chong MD OTHER INSTRUCTIONS: Weigh daily in the morning. Home health nursing to draw basic metabolic profile on 06/15/17 and send reports to Dr. Garza and Dr. Chong. New medication: metolazone (Zaroxolyn) 5 mg each morning, about 30 min before your morning dose of furosemide (Lasix) prescription sent to [facility]. Keep your feet elevated when possible. Seek medical attention if you have: * temperature above 101 * chest pain or trouble breathing * abdominal pain, nausea, vomiting * worsening fluid retention in legs or abdomen, weight gain more than 3 lbs * diarrhea, dark stools or bloody stools * any unanswered questions or concerns Call 911 if symptoms are severe. Call if you have any questions or problems. My cell # is [phone]. You can also reach a [facility] hospitalist on duty at [facility] 24 hours a day by calling [phone]. Please take good care of yourself. David Burleson . Current Hospital Diet Patient's current hospital diet: Low Sodium Diet (2gm Na), Renal Diet, Diabetes Type 2 Diet Discharge Diet Recommended Diet: AHA Diet (Heart Healthy), Diabetes Type 2 Diet, Renal Diet Fluid Restriction: 1500 ml (6 cups) Pending Studies Studies pending at discharge: no Laboratory Results Hemoglobin A1c Test 06/03/17 06:48 Range/Units Estimated Average Glucose 105 mg/dl Hemoglobin A1c 5.3 4.5-5.6 % Medical Emergencies . Who to Call and When: Medical Emergencies: If at any time you feel your situation is an emergency, please call 911 immediately. . Non-Emergent Contact Non-Emergency issues call your: Primary Care Provider, Hospital Doctor, Locks Tender . . "Provider Documentation" section prepared by David Burleson. . VTE Core Measure Inpt VTE Proph given/why not?: SCD's .
--- NOTE | 2017-06-14 12:56 | EDITING REQUIRED CODING QUERY ---
CONGESTIVE HEART FAILURE To Promote full compliance with coding requirements relating to patient care, physician participation is requested in all cases of medical billing coder uncertainty. Please assist us with the following questions. A diagnosis of Congestive Heart Failure is documented in the patient's medical record. To accurately code this diagnosis and to compare patient severity, we ask that you specify the type of heart failure by placing an X within the parenthesis (x). SYSTOLIC HEART FAILURE ( ) Acute ( ) Chronic ( ) Acute on Chronic ( ) Rheumatic ( ) Unknown DIASTOLIC HEART FAILURE ( ) Acute ( x) Chronic ( ) Acute on Chronic ( ) Rheumatic ( ) Unknown COMBINED SYSTOLIC AND DIASTOLIC HEART FAILURE ( ) Acute ( ) Chronic ( ) Acute on Chronic ( ) Rheumatic ( ) Unknown Was the CHF Present On Admission? Please check the appropriate box: ( ) Present on Admission (x ) Not Present On Admission ( ) Clinically undetermined CHF picture complicated. 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 Both appeared to be compensated. Ascites and lower extremity edema during this admission seemed to be related to liver disease, not CHF. Thank you Adriana Merrill
== END 2017-06-12 14:42 | disposition home or self-care (01) | DRG 433 ==
LOC: EDBD 12:00 → C.EDA 12:01 → C.4E 14:18 → ENRESERV 17:14
PROVIDERS: ADMIT Family Medicine; ATTEND Hospitalist
DX: K74.60 Unspecified cirrhosis of liver (principal); R18.8 Other ascites; N17.9 Acute kidney failure, unspecified; N18.4 Chronic kidney disease, stage 4 (severe); I50.32 Chronic diastolic (congestive) heart failure; K75.81 Nonalcoholic steatohepatitis (NASH); K76.1 Chronic passive congestion of liver; E87.6 Hypokalemia; I50.812 Chronic right heart failure; I48.0 Paroxysmal atrial fibrillation; D69.59 Other secondary thrombocytopenia; E11.9 Type 2 diabetes mellitus without complications; D46.9 Myelodysplastic syndrome, unspecified; D63.1 Anemia in chronic kidney disease; J44.9 Chronic obstructive pulmonary disease, unspecified; G47.33 Obstructive sleep apnea (adult) (pediatric); Z79.899 Other long term (current) drug therapy; Z79.4 Long term (current) use of insulin; Z66 Do not resuscitate; Z95.0 Presence of cardiac pacemaker

== ENCOUNTER 2017-07-28 09:57 | Emergency (ER) | payer OTHER ==
[~2017-07-28] VITALS: Ht 182.9 cm; Wt 89.9 kg
[~2017-07-28 09:57] MED LIST changes: -FRS/40 PO; +FURO80TA63 PO; +ZRX5 PO
[2017-07-28 10:05] VITALS: TEMP 36.6; Ht 182.9 cm; Wt 89.9 kg
[2017-07-28 10:29] LABS: HEMOGLOBIN 10.1 g/dL (14.0-18.0); MEAN CELL VOLUME 87.2 fL (80-100); MEAN CORPUSCULAR HEMOGLOBIN 29.4 pg (25-34); MEAN CORPUSCULAR HGB CONC 33.7 g/dl (32-36); RED CELL DISTRIBUTION WIDTH SD 47.6 fL (36.4-46.3)
[2017-07-28 10:36] LABS: INR 1.2 (0.9-1.1); PTT PATIENT 28.7 SECONDS (21.0-31.0)
--- NOTE | 2017-07-28 10:40 | EMERGENCY ROOM VISIT NOTE ---
History Report prepared by Li: Nelda Aburto Under the Supervision of: Dr. Kiko Jamison M.D. First contact with patient: 10:12 Stated Complaint: ABDOMINAL PAIN History of Present Illness The patient is a 87 year old male who presents to the Emergency Room with complaints of a sudden onset of lower abdominal pain beginning this morning. The patient comes from [facility]. The patient reports he drank juice after the onset of his symptoms and his symptoms resolved. The staff from [facility] wanted the patient to come to the ED to get checked out. Presently, the patient denies any symptoms of abdominal pain. He denies any vomiting, diarrhea, fever, blood in stool, blood in urine, chest pain, shortness of breath,or headache. At baseline, the patient uses a walker to ambulate. Source of History: patient Onset: this morning Position: abdomen Quality: other (pain sudden onset) Timing: other (sudden episode) Associated Symptoms: + abdominal pain, No fevers, No headache, No chest pain , No SOB, No vomiting, No diarrhea, No urinary symptoms Review of Systems See HPI for pertinent positives and negatives. A total of ten systems were reviewed and were otherwise negative. 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), type 2 with renal complications (7) Dyslipidemia (8) History of ankle fracture (9) History of bladder cancer (10) Hypertrophic cardiomyopathy (11) Myelodysplastic syndrome (12) Paroxysmal atrial fibrillation (13) Sinoatrial node dysfunction (14) Sleep apnea, obstructive (15) Thrombocytopenia Surgical Problems: (1) Status post cardiac pacemaker procedure (2) Status post myomectomy Family History FHx: heart disease Social History Smoking Status: Former Smoker Alcohol Use: none Drug Use: none Marital Status: Housing Status: assisted living Occupation Status: unemployed Current/Historical Medications Scheduled Ferrous Sulfate (Iron), 325 MG PO DAILY Folic Acid (Folic Acid), 1 MG PO DAILY Furosemide (Lasix), 40 MG PO BID Insulin Aspart (Novolog), SQ ACHS Insulin Glargine (Lantus Solostar), 14 UNITS SQ HS Metolazone (Metolazone), 5 MG PO DAILY@0800 Metoprolol Succ (Toprol Xl) (Toprol-Xl), 12.5 MG PO DAILY Midodrine (Midodrine HCl), 2.5 MG PO BID Rifaximin (Xifaxan), 550 MG PO BID Spironolactone (Aldactone), 50 MG PO QAM Scheduled PRN Nitroglycerin (Nitrostat), 0.4 MG UT UD PRN for Chest Pain Ondansetron Hcl (Zofran), 4 MG PO Q6H PRN for Nausea Allergies Coded Allergies: Propranolol (Verified Allergy, Unknown, 07/28/17) Codeine (Verified Adverse Reaction, Mild, NOTED "DOESNT TOLERATE WELL" , 07/28/17) Physical Exam Vital Signs Date Time Temp Pulse Resp B/P (MAP) Pulse Ox O2 Delivery O2 Flow Rate FiO2 07/28/17 15:30 67 20 115/81 97 Room Air 07/28/17 14:30 67 12 89/34 99 Room Air 07/28/17 13:30 67 20 103/69 100 Room Air 07/28/17 13:06 63 07/28/17 12:34 65 12 92/68 99 Room Air 07/28/17 12:00 61 20 89/58 100 Room Air 07/28/17 10:08 74 07/28/17 10:05 36.6 77 20 113/69 99 Room Air Physical Exam Physical Exam GENERAL: He is oriented to person, place, and time. He appears well-developed and well-nourished. He does not appear distressed. ____ HENT: Exam performed. Head: Normocephalic and atraumatic. Right Ear: External ear normal. No mastoid tenderness. Left Ear: External ear normal. No mastoid tenderness. Mouth/Throat: The oropharynx is clear and moist. No trismus in the jaw. No dental abscesses or uvula swelling. No oropharyngeal exudate or tonsillar abscesses. ____ EYES: Conjunctivae and EOM are normal. Pupils are equal, round, and reactive to light. Right eye exhibits no discharge. Left eye exhibits no discharge. No scleral icterus. ____ NECK: Normal range of motion. Neck supple. No JVD present. No spinous process tenderness present. No carotid bruit present. No rigidity. No tracheal deviation and normal range of motion present. No Brudzinski's sign and no Kernig 's sign noted. ____ CV: Normal rate, regular rhythm, normal heart sounds and intact distal pulses. There is no peripheral edema. Palpable radial pulses bue. ____ PULM/CHEST: Effort normal and breath sounds normal. No respiratory distress. No stridor. He has no wheezes. He has no rales. Chest Wall: He exhibits no tenderness. ____ ABD: The abdomen is soft. Multiple ecchymosis over anterior abdominal wall. Bowel sounds are normal. He has no distension. No mass is present. There is no tenderness. There is no rebound, no guarding, no Acosta's sign and no tenderness at McBurney's point. Rovsig negative MUSC/SKEL: Normal range of motion. There is no peripheral edema, tenderness or deformity. LYMPH: No cervical adenopathy. ____ NEURO: He is alert and oriented to person, place, and time. He has normal strength. No cranial nerve deficit or sensory deficit. Coordination and gait normal. GCS eye subscore is 4. GCS verbal subscore is 5. GCS motor subscore is 6. Cerebellar tests wnl. ____ SKIN: Skin is warm and dry. He is not diaphoretic. ____ PSYCH: He has a normal mood and affect. His behavior is normal. Judgment and thought content normal. ____ Medical Decision & Procedures ER Provider Diagnostic Interpretation: Radiology results as stated below per my review and radiologist interpretation: CT SCAN OF THE ABDOMEN AND PELVIS WITHOUT IV CONTRAST FINDINGS: Lung bases: The patient is status post midline sternotomy. The heart is enlarged and without pericardial effusion. Pacemaker leads are noted. There is diminished attenuation of the cardiac blood pool as compared to the myocardium suggesting anemia. The coronary arteries are densely calcified. There is a trace right pleural effusion with bibasilar atelectasis. A tiny hiatal hernia is identified. Liver: The unenhanced liver is cirrhotic in morphology and heterogeneous in attenuation. There is nodularity of the hepatic surface contour. There is no intrahepatic biliary ductal dilatation. Gallbladder: Surgically absent noting clips in the gallbladder fossa. Spleen: Mildly enlarged measuring 17.8 cm in length. Pancreas: The unenhanced pancreas is atrophic. A 10 mm ovoid water attenuation lesion in the pancreatic neck seen on image #143 likely represents a small sidebranch IPMN. Additional similar-appearing cystic lesions measuring 0.8 cm and 2.4 cm are identified in the pancreatic tail on images #141 and #149. The 2.4 cm lesion has modestly increased in size from previous. Adrenal glands: Unremarkable. Kidneys: The unenhanced kidneys are atrophic and without hydronephrosis. There are no renal calculi identified. Several small renal cysts on the right measure up to 1.9 cm. Abdominal vasculature: The abdominal aorta is normal in course and caliber noting moderate to advanced atherosclerotic calcification. Bowel: A duodenal diverticulum is noted. There is rectosigmoid fecal impaction. No bowel obstruction is seen. There is advanced diverticulosis of the left colon without CT evidence of acute diverticulitis. The appendix is well-visualized and normal. Peritoneum: There is a small volume of abdominopelvic ascites. No intraperitoneal free air is seen. Lymphadenopathy: Prominent lymph nodes in the radha hepatis are likely related to chronic liver disease. Pelvic viscera: The prostate gland is diminutive and heterogeneous. The bladder wall is thickened and trabeculated. There are numerous bladder diverticula, and the findings are consistent with chronic outlet obstruction. Skeletal structures: The skeletal structures are osteopenic. There is moderate lumbosacral spondylosis. No lytic or blastic lesions are seen. IMPRESSION: 1. Significantly suboptimal examination without oral and IV contrast. 2. No acute infectious or inflammatory findings are clearly identified in the abdomen or pelvis. 3. Cirrhotic liver morphology with evidence of portal hypertension including a small volume of abdominopelvic ascites and splenomegaly. 4. Advanced diverticulosis of the left colon without CT evidence of acute diverticulitis. 5. There is evidence of chronic bladder outlet obstruction. 6. Trace right pleural effusion. 7. Cardiomegaly. 8. Rectosigmoid fecal impaction. 9. Additional findings as above. Electronically signed by: Khoa Castro M.D. Laboratory Results 07/28/17 10:15 Red Blood Count 3.44, Mean Corpuscular Volume 87.2, Mean Corpuscular Hemoglobin 29.4, Mean Corpuscular Hemoglobin Concent 33.7, Mean Platelet Volume 9.7, Neutrophils (%) (Auto) 82.0, Lymphocytes (%) (Auto) 8.5, Monocytes (%) (Auto) 7.1, Eosinophils (%) (Auto) 1.8, Basophils (%) (Auto) 0.3, Neutrophils # (Auto) 2.79, Lymphocytes # (Auto) 0.29, Monocytes # (Auto) 0.24, Eosinophils # (Auto) 0.06, Basophils # (Auto) 0.01 07/28/17 10:15 Test 07/28/17 10:15 07/28/17 10:54 07/28/17 12:30 White Blood Count 3.40 K/uL (4.8-10.8) Red Blood Count 3.44 M/uL (4.7-6.1) Hemoglobin 10.1 g/dL (14.0-18.0) Hematocrit 30.0 % (42-52) Mean Corpuscular Volume 87.2 fL (80-100) Mean Corpuscular Hemoglobin 29.4 pg (25-34) Mean Corpuscular Hemoglobin Concent 33.7 g/dl (32-36) Platelet Count 45 K/uL (130-400) Mean Platelet Volume 9.7 fL (7.4-10.4) Neutrophils (%) (Auto) 82.0 % Lymphocytes (%) (Auto) 8.5 % Monocytes (%) (Auto) 7.1 % Eosinophils (%) (Auto) 1.8 % Basophils (%) (Auto) 0.3 % Neutrophils # (Auto) 2.79 K/uL (1.4-6.5) Lymphocytes # (Auto) 0.29 K/uL (1.2-3.4) Monocytes # (Auto) 0.24 K/uL (0.11-0.59) Eosinophils # (Auto) 0.06 K/uL (0-0.5) Basophils # (Auto) 0.01 K/uL (0-0.2) RDW Standard Deviation 47.6 fL (36.4-46.3) RDW Coefficient of Variation 15.0 % (11.5-14.5) Immature Granulocyte % (Auto) 0.3 % Immature Granulocyte # (Auto) 0.01 K/uL (0.00-0.02) Platelet Estimate DECREASED Prothrombin Time 12.7 SECONDS (9.0-12.0) Prothromb Time International Ratio 1.2 (0.9-1.1) Activated Partial Thromboplast Time 28.7 SECONDS (21.0-31.0) Partial Thromboplastin Ratio 1.1 Anion Gap 12.0 mmol/L (3-11) Est Creatinine Clear Calc Drug Dose 14.4 ml/min Estimated GFR () 14.8 Estimated GFR (Non- 12.8 BUN/Creatinine Ratio 29.4 (10-20) Calcium Level 9.4 mg/dl (8.5-10.1) Total Bilirubin 0.8 mg/dl (0.2-1) Aspartate Amino Transf (AST/SGOT) 34 U/L (15-37) Alanine Aminotransferase (ALT/SGPT) 27 U/L (12-78) Alkaline Phosphatase 92 U/L (45-117) Total Protein 7.5 gm/dl (6.4-8.2) Albumin 3.3 gm/dl (3.4-5.0) Globulin 4.2 gm/dl (2.5-4.0) Albumin/Globulin Ratio 0.8 (0.9-2) Lipase 254 U/L (73-393) Lactic Acid Level 2.3 mmol/L (0.4-2.0) Urine Color YELLOW Urine Appearance CLEAR (CLEAR) Urine pH 5.0 (4.5-7.5) Urine Specific [place] 1.010 (1.000-1.030) Urine Protein NEG (NEG) Urine Glucose (UA) NEG (NEG) Urine Ketones NEG (NEG) Urine Occult Blood NEG (NEG) Urine Nitrite NEG (NEG) Urine Bilirubin NEG (NEG) Urine Urobilinogen NEG (NEG) Urine Leukocyte Esterase SMALL (NEG) Urine WBC (Auto) 1-5 /hpf (0-5) Urine RBC (Auto) 0-4 /hpf (0-4) Urine Hyaline Casts (Auto) 1-5 /lpf (0-5) Urine Epithelial Cells (Auto) 5-10 /lpf (0-5) Urine Bacteria (Auto) NEG (NEG) Laboratory results reviewed by pa ED Course 1013: The patient was evaluated in room B5. A complete history and physical exam was performed. 1115: Bedside ultrasound showed scant ascites very close to multiple bowel loops. 1423: Vitals stable, serial abdominal exams within normal limits, imaging showed no acute process, platelet, hemoglobin and creatinine stable. Lactic acid minimally elevated at 2.3. The patient has no fever or abdominal pain and only has scant ascites, there is no concern for SBP. DISCHARGE - Plan of care discussed with patient and questions answered. The patient was given both verbal and printed discharge instructions. The patient verbalized understanding and ability to comply. The patient is to seek outpatient follow up as noted in the discharge instructions. The patient verbalized understanding and ability to comply. The patient is discharged in stable condition. The patient was instructed to return for worsening symptoms. Medical Decision Vitals stable, serial abdominal exams within normal limits, imaging showed no acute process, platelet, hemoglobin and creatinine stable. Lactic acid minimally elevated at 2.3. The patient has no fever or abdominal pain and only has scant ascites, there is no concern for SBP. DISCHARGE - Plan of care discussed with patient and questions answered. The patient was given both verbal and printed discharge instructions. The patient verbalized understanding and ability to comply. The patient is to seek outpatient follow up as noted in the discharge instructions. The patient verbalized understanding and ability to comply. The patient is discharged in stable condition. The patient was instructed to return for worsening symptoms. Medication Reconcilliation Current Medication List: was personally reviewed by me Blood Pressure Screening Patient's blood pressure: Low blood pressure Impression Primary Impression: Abdominal pain Scribe Attestation The scribe's documentation has been prepared under my direction and personally reviewed by me in its entirety. I confirm that the note above accurately reflects all work, treatment, procedures, and medical decision making performed by me. The chart was completed utilizing [employer] Speech voice recognition software. Grammatical errors, random word insertions, pronoun errors, and incomplete sentences are an occasional consequence of this system due to software limitations, ambient noise, and hardware issues. Any formal questions or concerns about the content, text, or information contained within the body of this dictation should be directly addressed to the physician for clarification. Departure Information Dispostion Home / Self-Care Referrals Anastacio Garza M.D. (PCP) Forms HOME CARE DOCUMENTATION FORM, IMPORTANT VISIT INFORMATION Additional Instructions Return to the emergency department if you develop fever greater 100.4, vomit blood, bloody stools, black stools, blood in urine. Problem Qualifiers Primary Impression: Abdominal pain Abdominal location: unspecified location Qualified Codes: R10.9 - Unspecified abdominal pain
[2017-07-28 10:45] LABS: ALBUMIN 3.3 gm/dl (3.4-5.0); CALCIUM 9.4 mg/dl (8.5-10.1); CREATININE 3.96 mg/dl (0.60-1.40); POTASSIUM 3.5 mmol/L (3.5-5.1)
[2017-07-28 10:47] LABS: BASO % 0.3 %; BASO ABS # 0.01 K/uL (0-0.2); EOS % 1.8 %; EOS ABS # 0.06 K/uL (0-0.5); IG# 0.01 K/uL (0.00-0.02); LYMPH % 8.5 %; LYMPH ABS # 0.29 K/uL (1.2-3.4); MEAN PLATELET VOLUME 9.7 fL (7.4-10.4); MONO % 7.1 %; MONO ABS # 0.24 K/uL (0.11-0.59); NEUT ABS # 2.79 K/uL (1.4-6.5); PLATELET COUNT 45 K/uL (130-400)
[2017-07-28 10:48] LABS: TOTAL PROTEIN 7.5 gm/dl (6.4-8.2)
--- NOTE | 2017-07-28 14:01 | DIAGNOSTIC IMAGING REPORT ---
CT SCAN OF THE ABDOMEN AND PELVIS WITHOUT IV CONTRAST CLINICAL HISTORY: Generalized abdominal pain. COMPARISON STUDY: Abdominal CT dated 02/06/2017. TECHNIQUE: CT scan of the abdomen and pelvis is performed from the lung bases to the proximal femora. Images are reviewed in the axial, sagittal, and coronal planes. IV contrast was not administered for this examination as per the front clinician. Note that the examination was performed in significantly suboptimal fashion without oral and IV contrast. A dose lowering technique was utilized adhering to the principles of ALARA. CT DOSE: 944.51 mGycm FINDINGS: Lung bases: The patient is status post midline sternotomy. The heart is enlarged and without pericardial effusion. Pacemaker leads are noted. There is diminished attenuation of the cardiac blood pool as compared to the myocardium suggesting anemia. The coronary arteries are densely calcified. There is a trace right pleural effusion with bibasilar atelectasis. A tiny hiatal hernia is identified. Liver: The unenhanced liver is cirrhotic in morphology and heterogeneous in attenuation. There is nodularity of the hepatic surface contour. There is no intrahepatic biliary ductal dilatation. Gallbladder: Surgically absent noting clips in the gallbladder fossa. Spleen: Mildly enlarged measuring 17.8 cm in length. Pancreas: The unenhanced pancreas is atrophic. A 10 mm ovoid water attenuation lesion in the pancreatic neck seen on image #143 likely represents a small sidebranch IPMN. Additional similar-appearing cystic lesions measuring 0.8 cm and 2.4 cm are identified in the pancreatic tail on images #141 and #149. The 2.4 cm lesion has modestly increased in size from previous. Adrenal glands: Unremarkable. Kidneys: The unenhanced kidneys are atrophic and without hydronephrosis. There are no renal calculi identified. Several small renal cysts on the right measure up to 1.9 cm. Abdominal vasculature: The abdominal aorta is normal in course and caliber noting moderate to advanced atherosclerotic calcification. Bowel: A duodenal diverticulum is noted. There is rectosigmoid fecal impaction. No bowel obstruction is seen. There is advanced diverticulosis of the left colon without CT evidence of acute diverticulitis. The appendix is well-visualized and normal. Peritoneum: There is a small volume of abdominopelvic ascites. No intraperitoneal free air is seen. Lymphadenopathy: Prominent lymph nodes in the radha hepatis are likely related to chronic liver disease. Pelvic viscera: The prostate gland is diminutive and heterogeneous. The bladder wall is thickened and trabeculated. There are numerous bladder diverticula, and the findings are consistent with chronic outlet obstruction. Skeletal structures: The skeletal structures are osteopenic. There is moderate lumbosacral spondylosis. No lytic or blastic lesions are seen. IMPRESSION: 1. Significantly suboptimal examination without oral and IV contrast. 2. No acute infectious or inflammatory findings are clearly identified in the abdomen or pelvis. 3. Cirrhotic liver morphology with evidence of portal hypertension including a small volume of abdominopelvic ascites and splenomegaly. 4. Advanced diverticulosis of the left colon without CT evidence of acute diverticulitis. 5. There is evidence of chronic bladder outlet obstruction. 6. Trace right pleural effusion. 7. Cardiomegaly. 8. Rectosigmoid fecal impaction. 9. Additional findings as above. Electronically signed by: Khoa Castro M.D. 07/28/2017 2:00 PM Dictated Date/Time: 07/28/2017 1:47 PM
[2017-07-28 15:30] VITALS: BP 115/81; PULSE 67; O2SAT 97
== END 2017-07-28 15:33 | disposition home or self-care (01) ==
LOC: EDBD 09:57 → C.EDB 09:58
DX: R10.30 Lower abdominal pain, unspecified (principal); D64.9 Anemia, unspecified; R18.8 Other ascites; N18.4 Chronic kidney disease, stage 4 (severe); J44.9 Chronic obstructive pulmonary disease, unspecified; E11.29 Type 2 diabetes mellitus with other diabetic kidney complication; E78.5 Hyperlipidemia, unspecified; Z85.51 Personal history of malignant neoplasm of bladder; I42.2 Other hypertrophic cardiomyopathy; D46.9 Myelodysplastic syndrome, unspecified; I48.0 Paroxysmal atrial fibrillation; G47.30 Sleep apnea, unspecified; D69.6 Thrombocytopenia, unspecified; Z82.49 Family history of ischemic heart disease and other diseases of the circulatory system; Z87.891 Personal history of nicotine dependence; Z79.4 Long term (current) use of insulin; Z79.899 Other long term (current) drug therapy; Z88.5 Allergy status to narcotic agent; Z88.8 Allergy status to other drugs, medicaments and biological substances

== ENCOUNTER 2017-08-17 15:00 | Inpatient (IN) | payer OTHER ==
[~2017-08-17] VITALS: Ht 182.9 cm; Wt 87.2 kg
--- NOTE | 2017-08-17 15:55 | DIAGNOSTIC IMAGING REPORT ---
CHEST ONE VIEW PORTABLE CLINICAL HISTORY: eval for pna cough. Dyspnea. COMPARISON STUDY: 06/02/2017 FINDINGS: Mild stable cardiomegaly.] Median sternotomy. Permanent bipolar cardiac pacemaker. Minimal interstitial infiltrate left base. Lungs otherwise appear clear. IMPRESSION: Minimal interstitial infiltrate left base. Mild stable cardiomegaly. The above report was generated using voice recognition software. It may contain grammatical, syntax or spelling errors. Electronically signed by: Anastacio Hilton M.D. 08/17/2017 3:53 PM Dictated Date/Time: 08/17/2017 3:53 PM
[2017-08-17 16:20] LABS: HEMATOCRIT 30.1 % (42-52); MEAN CELL VOLUME 87.5 fL (80-100); MEAN CORPUSCULAR HEMOGLOBIN 29.1 pg (25-34); MEAN CORPUSCULAR HGB CONC 33.2 g/dl (32-36); RED CELL DISTRIBUTION WIDTH SD 47.8 fL (36.4-46.3); WHITE BLOOD COUNT 2.56 K/uL (4.8-10.8)
[2017-08-17 16:27] LABS: INR 1.2 (0.9-1.1)
[2017-08-17 16:42] LABS: ALBUMIN 3.2 gm/dl (3.4-5.0); CALCIUM 9.4 mg/dl (8.5-10.1); CREATININE 4.06 mg/dl (0.60-1.40); POTASSIUM 3.3 mmol/L (3.5-5.1)
--- NOTE | 2017-08-17 16:42 | DIAGNOSTIC IMAGING REPORT ---
LATERAL CHEST RADIOGRAPH CLINICAL HISTORY: Lateral view to evaluate for left lower lobe infiltrate. COMPARISON STUDY: Chest radiograph June 02, 2017 and August 17, 2017. FINDINGS: Pacer leads are noted as well as median sternotomy wires. No definite consolidation shown on lateral projection. There is no evidence for pleural effusion. IMPRESSION: No definite consolidation identified. Mild basilar opacity which favors atelectasis. Electronically signed by: Williams Goetz M.D. 08/17/2017 4:40 PM Dictated Date/Time: 08/17/2017 4:39 PM
[2017-08-17 16:44] LABS: MEAN PLATELET VOLUME 10.7 fL (7.4-10.4); PLATELET COUNT 38 K/uL (130-400)
[2017-08-17] MEDS ORDERED: LACTULOSE SYRUP 20 GM/30 ML UDC PO STA (16:50)
[2017-08-17 16:51] LABS: TOTAL PROTEIN 7.6 gm/dl (6.4-8.2)
[2017-08-17 17:11] LABS: BASO % 0.4 %; BASO ABS # 0.01 K/uL (0-0.2); EOS ABS # 0.05 K/uL (0-0.5); LYMPH % 5.1 %; LYMPH ABS # 0.13 K/uL (1.2-3.4); MONO % 11.3 %; MONO ABS # 0.29 K/uL (0.11-0.59); NEUT % 81.2 %; NEUT ABS # 2.08 K/uL (1.4-6.5)
--- NOTE | 2017-08-17 17:49 | EMERGENCY ROOM VISIT NOTE ---
History Report prepared by Li: Akshat Spicer Under the Supervision of: Dr. Juan Maret M.D. First contact with patient: 15:07 Stated Complaint: LETHARGIC History of Present Illness The patient is a 87 year old male who presents to the Emergency Room by EMS with complaints of constant bilateral feet "heaviness" beginning today. He is a resident at [facility]. Per nursing staff, the patient is reported to have been "lethargic" today by staff at [facility] prompting the call of EMS. The patient has no complaints, but states "my feet feel heavy". He has a history of tremors , which are worse than normal. He states that he had trouble eating today due to his tremors. The patient denies fevers, chest pain, SOB, nausea, vomiting, diarrhea, or abdominal pain. Source of History: patient, nursing staff Onset: Today Position: foot (bilateral) Quality: other ("heaviness") Timing: constant Associated Symptoms: No fevers, No chest pain, No SOB, No nausea, No vomiting, No abdominal pain, No diarrhea Review of Systems See HPI for pertinent positives & negatives. A total of 10 systems reviewed and were otherwise negative. 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), type 2 with renal complications (7) Dyslipidemia (8) History of ankle fracture (9) History of bladder cancer (10) Hypertrophic cardiomyopathy (11) Myelodysplastic syndrome (12) Paroxysmal atrial fibrillation (13) Sinoatrial node dysfunction (14) Sleep apnea, obstructive (15) Thrombocytopenia Surgical Problems: (1) Status post cardiac pacemaker procedure (2) Status post myomectomy Family History FHx: heart disease Social History Smoking Status: Former Smoker Alcohol Use: none Drug Use: none Marital Status: Housing Status: assisted living Occupation Status: unemployed Current/Historical Medications Scheduled Ferrous Sulfate (Iron), 325 MG PO DAILY Folic Acid (Folic Acid), 1 MG PO DAILY Furosemide (Lasix), 40 MG PO BID Insulin Aspart (Novolog), SQ ACHS Insulin Glargine (Lantus Solostar), 14 UNITS SQ HS Metolazone (Metolazone), 5 MG PO DAILY@0800 Metoprolol Succ (Toprol Xl) (Toprol-Xl), 12.5 MG PO DAILY Midodrine (Midodrine HCl), 2.5 MG PO BID Rifaximin (Xifaxan), 550 MG PO BID Spironolactone (Aldactone), 50 MG PO QAM Scheduled PRN Nitroglycerin (Nitrostat), 0.4 MG UT UD PRN for Chest Pain Ondansetron Hcl (Zofran), 4 MG PO Q6H PRN for Nausea Allergies Coded Allergies: Propranolol (Verified Allergy, Unknown, 07/28/17) Codeine (Verified Adverse Reaction, Mild, NOTED "DOESNT TOLERATE WELL" , 07/28/17) Physical Exam Vital Signs Date Time Temp Pulse Resp B/P (MAP) Pulse Ox O2 Delivery O2 Flow Rate FiO2 08/17/17 16:56 65 20 108/66 99 Room Air 08/17/17 15:00 36.5 74 18 86/58 100 Room Air Physical Exam Constitutional: Vital signs reviewed. Eyes: Pupils are equal round reactive to light. Conjunctiva are noninjected. ENT: Pharynx is clear without erythema or exudate. Mucous membranes are dry. Neck supple without meningeal signs. Respiratory: Clear to auscultation bilaterally. Breath sounds are equal bilaterally. Cardiovascular: Regular rate and rhythm. No rubs or gallops. GI: Soft, nondistended and nontender. Bowel sounds are present. Musculoskeletal: Mild pedal edema. No cellulitis to the legs. Normal pulses. No lower extremity tenderness. Integumentary: No cyanosis. Neurological: The patient is awake and alert. No focal deficits. Mild asterixis. Psychiatric: Normal affect. Medical Decision & Procedures ER Provider Diagnostic Interpretation: Radiology results as stated below per my review and the radiologist's interpretation: CHEST ONE VIEW PORTABLE FINDINGS: Mild stable cardiomegaly.] Median sternotomy. Permanent bipolar cardiac pacemaker. Minimal interstitial infiltrate left base. Lungs otherwise appear clear. IMPRESSION: Minimal interstitial infiltrate left base. Mild stable cardiomegaly. The above report was generated using voice recognition software. It may contain grammatical, syntax or spelling errors. Electronically signed by: Anastacio Hilton M.D. 08/17/2017 3:53 PM LATERAL CHEST RADIOGRAPH FINDINGS: Pacer leads are noted as well as median sternotomy wires. No definite consolidation shown on lateral projection. There is no evidence for pleural effusion. IMPRESSION: No definite consolidation identified. Mild basilar opacity which favors atelectasis. Electronically signed by: Williams Goetz M.D. 08/17/2017 4:40 PM Laboratory Results 08/17/17 15:52 Red Blood Count 3.44, Mean Corpuscular Volume 87.5, Mean Corpuscular Hemoglobin 29.1, Mean Corpuscular Hemoglobin Concent 33.2, Mean Platelet Volume 10.7, Neutrophils (%) (Auto) 81.2, Lymphocytes (%) (Auto) 5.1, Monocytes (%) (Auto) 11.3, Eosinophils (%) (Auto) 2.0, Basophils (%) (Auto) 0.4, Neutrophils # (Auto ) 2.08, Lymphocytes # (Auto) 0.13, Monocytes # (Auto) 0.29, Eosinophils # (Auto ) 0.05, Basophils # (Auto) 0.01 08/17/17 15:52 Test 08/17/17 15:52 08/17/17 16:06 White Blood Count 2.56 K/uL (4.8-10.8) Red Blood Count 3.44 M/uL (4.7-6.1) Hemoglobin 10.0 g/dL (14.0-18.0) Hematocrit 30.1 % (42-52) Mean Corpuscular Volume 87.5 fL (80-100) Mean Corpuscular Hemoglobin 29.1 pg (25-34) Mean Corpuscular Hemoglobin Concent 33.2 g/dl (32-36) Platelet Count 38 K/uL (130-400) Mean Platelet Volume 10.7 fL (7.4-10.4) Neutrophils (%) (Auto) 81.2 % Lymphocytes (%) (Auto) 5.1 % Monocytes (%) (Auto) 11.3 % Eosinophils (%) (Auto) 2.0 % Basophils (%) (Auto) 0.4 % Neutrophils # (Auto) 2.08 K/uL (1.4-6.5) Lymphocytes # (Auto) 0.13 K/uL (1.2-3.4) Monocytes # (Auto) 0.29 K/uL (0.11-0.59) Eosinophils # (Auto) 0.05 K/uL (0-0.5) Basophils # (Auto) 0.01 K/uL (0-0.2) RDW Standard Deviation 47.8 fL (36.4-46.3) RDW Coefficient of Variation 15.0 % (11.5-14.5) Immature Granulocyte % (Auto) 0.0 % Immature Granulocyte # (Auto) 0.00 K/uL (0.00-0.02) Giant Platelets 1+ Prothrombin Time 12.4 SECONDS (9.0-12.0) Prothromb Time International Ratio 1.2 (0.9-1.1) Activated Partial Thromboplast Time 26.0 SECONDS (21.0-31.0) Partial Thromboplastin Ratio 1.0 Anion Gap 10.0 mmol/L (3-11) Est Creatinine Clear Calc Drug Dose 15.2 ml/min Estimated GFR () 14.4 Estimated GFR (Non- 12.4 BUN/Creatinine Ratio 29.9 (10-20) Calcium Level 9.4 mg/dl (8.5-10.1) Total Bilirubin 0.5 mg/dl (0.2-1) Direct Bilirubin 0.2 mg/dl (0-0.2) Aspartate Amino Transf (AST/SGOT) 47 U/L (15-37) Alanine Aminotransferase (ALT/SGPT) 41 U/L (12-78) Alkaline Phosphatase 100 U/L (45-117) Ammonia 62.0 umol/L (11-32) Total Protein 7.6 gm/dl (6.4-8.2) Albumin 3.2 gm/dl (3.4-5.0) Thyroid Stimulating Hormone (TSH) 6.600 uIu/ml (0.300-4.500) Free Thyroxine 1.28 ng/dl (0.80-1.60) Bedside Troponin I 0.040 ng/ml (0-0.045) Laboratory results as reviewed by me. ECG Per My Interpretation Indication: other (Lethargy) Rate (beats per minute): 64 Rhythm: other (Ventricular paced) Findings: other (QRS of 196. No PACs.) ED Course 1509: The patient was evaluated in room C10. A complete history and physical exam was performed. 1650: Upon reevaluation, the patient is resting comfortably. I discussed tonight 's findings with him. He verbalized agreement of the treatment plan. The patient will be evaluated for further management. Ordered Chronulac Syrup 30 gm PO. Medical Decision This is an 87-year-old male who presents for lethargy and feet feeling heavy. Differential diagnosis includes infection, UTI, pneumonia, hepatic encephalopathy, liver failure, metabolic derangement. I did perform a limited focused review of portions of the patient's old chart on the electronic medical record. The patient was seen in the ED for abdominal pain on July 28. He had a CT abdomen & pelvis which showed no acute process. Small amount of ascites and cirrhotic liver noted. Blood work showed a hemoglobin of 10 and a creatinine of 4. I did evaluate the patient as noted above. The patient states that he has had tremors and has difficulty eating. He does have asterixis on examination. He also complains of his feet feeling heavy. He has no acute abnormality to his feet. He denies generalized weakness. IV access was established. The patient was placed on a continuous rn cardiac cath. I did order and personally review the patient's 12-lead EKG and chest x-ray as described above. I did order and review the patient's blood work as noted in the electronic medical record. Hi ammonia is elevated. He was treated with lactulose. He is on Rifaximin. I did discuss the test results with the patient. I did discuss the case with the hospitalist and transplant case manager. Medication Reconcilliation Current Medication List: was personally reviewed by me Blood Pressure Screening Patient's blood pressure: Low blood pressure Blood pressure disposition: Did not require urgent referral Consults Time Called: 1650 Consulting Physician: Lisset Stephens PA-C - [facility] Hospitalist Returned Call: 1653 I spoke with Lisset Stephens PA-C of [facility]. We discussed the patient and his results. The patient will be further evaluated by [facility]. Impression Primary Impression: Hepatic encephalopathy Additional Impressions: Pancytopenia CKD (chronic kidney disease) Scribe Attestation The scribe's documentation has been prepared under my direct and personally reviewed by me in its entirety. I confirm that the note above accurately reflects all work, treatment, procedures, and medical decision making performed by me. Departure Information Dispostion Being Evaluated By Hospitalist Referrals Anastacio Garza M.D. (PCP) Problem Qualifiers Additional Impressions: CKD (chronic kidney disease) Chronic kidney disease stage: unspecified stage Qualified Codes: N18.9 - Chronic kidney disease, unspecified
[2017-08-17] MEDS ORDERED: METO5TAB25 PO (17:54)
[2017-08-17] MEDS ORDERED: ACETAMINOPHEN 325 MG TAB PO PRN (18:00)
[2017-08-17] MEDS ORDERED: NITROGLYCERIN 0.4 MG SL PER TAB CHARGE SL PRN (18:00)
[2017-08-17] MEDS ORDERED: FURO-85 PO (18:03)
[2017-08-17] MEDS ORDERED: GLUCOSE 10 TABS/TUBE PO PRN (18:30)
[2017-08-17] MEDS ORDERED: DEXTROSE 50% 50 ML SYR IV PRN (18:30)
[2017-08-17] MEDS ORDERED: GLUCOSE 40% GEL 15 GM TUBE PO PRN (18:30)
[2017-08-17] MEDS ORDERED: GLUCAGON FOR INJ 1 MG VIAL SQ PRN (18:30)
[2017-08-17] MEDS ORDERED: POTASSIUM CHLORIDE 20 MEQ TABCR PO STA (18:51)
[2017-08-17 19:00] VITALS: BP 103/65; PULSE 77; TEMP 36.5; O2SAT 100; Ht 182.9 cm; Wt 87.2 kg
[2017-08-17] MEDS ORDERED: POTASSIUM CHLORIDE 10 MEQ TABCR ONE (19:00)
--- NOTE | 2017-08-17 19:53 | History and Physical ---
History & Physical Date & Time of Service: Aug 17, 2017 at 18:56 Chief Complaint: Lethargic Primary Care Physician: Anastacio Garza M.D. History of Present Illness Source: patient, clinic records, hospital records Pt is 87 y/o M with PMH SHANE cirrhosis, recurrent ascites, COPD, DM II, CKD IV/V , paroxysmal a-fib, sick sinus syndrome s/p pacemaker, hx 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, chronic thrombocytopenia presented to ER from [facility] with c/o increased lethargy. Reported by nursing staff that patient more lethargic than usual. Patient reports bilateral feet feel heavy and having trouble walking today. Usually uses walker to ambulate. Patient states was feeling well yesterday. Patient also complains of tremors to bilateral hands and reports they are been worse than normal past couple of days and he is having trouble feeding himself secondary to tremors. Multiple recurrent admissions secondary to fluid overload. Patient states not having increased lower edema extremity feels edema is at baseline and denies any increased abdominal girth. Denies any bleeding, epistaxis, melena, hematochezia. Denies recent falls. Denies fever/ chills, diaphoresis, N/V/D/C, [place], dizziness, syncope, vision changes, neck pain , CP, SOB, orthopnea, palpitations, cough, choking, rhinorrhea, abdominal pain, paresthesias, rashes, urinary symptoms. In ER pt given dose of lactulose for ammonia level 62. Past Medical/Surgical History Medical Problems: (1) Anemia Status: Chronic (2) Ascites Status: Chronic (3) CKD (chronic kidney disease), stage IV Status: Chronic (4) COPD (chronic obstructive pulmonary disease) Status: Chronic (5) DM (diabetes mellitus), type 2 with renal complications Status: Chronic (6) Dyslipidemia Status: Chronic (7) History of ankle fracture Status: Chronic (8) History of bladder cancer Status: Chronic (9) Hypertrophic cardiomyopathy Status: Chronic (10) Myelodysplastic syndrome Status: Chronic (11) Paroxysmal atrial fibrillation Status: Chronic (12) Sinoatrial node dysfunction Status: Chronic (13) Sleep apnea, obstructive Permanent Comment: CPAP Status: Chronic (14) Thrombocytopenia Status: Chronic Surgical Problems: (1) Status post cardiac pacemaker procedure Status: Chronic (2) Status post myomectomy Permanent Comment: for hypertrophic cardiomyopathy Status: Chronic Family History FHx: heart disease Social History Smoking Status: Former Smoker (quit 1971, smoked 0.5ppd x 30 years) Smokeless Tobacco Use: No Alcohol Use: none Drug Use: none Marital Status: Housing status: other ([facility]) Occupational Status: unemployed Immunizations History of Influenza Vaccine: Yes History of Tetanus Vaccine?: Yes History of Pneumococcal: Yes History of Hepatitis B Vaccine: Unknown Allergies Coded Allergies: Propranolol (Verified Allergy, Unknown, 08/17/17) Codeine (Verified Adverse Reaction, Mild, NOTED "DOESNT TOLERATE WELL" , 08/17/17) Home Medications Scheduled Ferrous Sulfate (Iron), 325 MG PO QAM Folic Acid (Folic Acid), 1 MG PO QAM Furosemide (Lasix), 40 MG PO BID Insulin Aspart (Novolog), SQ ACHS Insulin Glargine (Lantus Solostar), 14 UNITS SQ HS Metolazone (Zaroxolyn), 5 MG PO QAM Metoprolol Succ (Toprol Xl) (Toprol-Xl), 12.5 MG PO QAM Midodrine (Midodrine HCl), 2.5 MG PO BID Rifaximin (Xifaxan), 550 MG PO BID Spironolactone (Aldactone), 50 MG PO QAM Scheduled PRN Nitroglycerin (Nitrostat), 0.4 MG UT UD PRN for Chest Pain Ondansetron Hcl (Zofran), 4 MG PO Q6H PRN for Nausea Review of Systems Constitutional: No fever, No chills, No sweats Eyes: No worsening of vision, No eye pain, No redness ENT: + hearing loss (chronic), No unusual epistaxis, No nasal symptoms, No sore throat, No trouble swallowing Respiratory: No cough, No sputum, No wheezing, No shortness of breath, No dyspnea on exertion, No hemoptysis Cardiovascular: No chest pain, No orthopnea, No PND Abdomen: No pain, No nausea, No vomiting, No diarrhea, No constipation, No GI bleeding Musculoskeletal: No joint pain, No muscle pain Genitourinary - Male: No hematuria, No dysuria Hematologic / Lymphatic: No night sweats Integumentary: No rash, No itch Physical Exam Vital Signs Date Time Temp Pulse Resp B/P (MAP) Pulse Ox O2 Delivery O2 Flow Rate FiO2 08/17/17 18:08 66 08/17/17 16:56 65 20 108/66 99 Room Air 08/17/17 15:00 36.5 74 18 86/58 100 Room Air General Appearance: WD/WN, no apparent distress Head: normocephalic, atraumatic Eyes: normal inspection, PERRL, EOMI, sclerae normal ENT: hearing grossly normal (hard of hearing), pharynx normal, + pertinent finding (membranes moist) Neck: supple, no JVD, trachea midline Respiratory/Chest: lungs clear, normal breath sounds, no respiratory distress Cardiovascular: regular rate, rhythm, + systolic murmur Abdomen/GI: normal bowel sounds, non tender, soft Extremities/Musculoskelatal: no calf tenderness, non-tender, + pedal edema (1-2 + BLE), + pertinent finding (mild intential tremors noted bilateral hands. one beat of asterixis ) Neurologic/Psych: alert, normal mood/affect, + pertinent finding (oriented to person and place. pt hard of hearing and have to repeat questions) Skin: warm/dry, + pertinent finding (+ecchymosis to bilateral arms) Diagnostics Laboratory Results Results Past 24 Hours Test 08/17/17 15:52 08/17/17 16:06 08/17/17 18:50 Range/Units White Blood Count 2.56 4.8-10.8 K/uL Red Blood Count 3.44 4.7-6.1 M/uL Hemoglobin 10.0 14.0-18.0 g/dL Hematocrit 30.1 42-52 % Mean Corpuscular Volume 87.5 80-100 fL Mean Corpuscular Hemoglobin 29.1 25-34 pg Mean Corpuscular Hemoglobin Concent 33.2 32-36 g/dl Platelet Count 38 130-400 K/uL Mean Platelet Volume 10.7 7.4-10.4 fL Neutrophils (%) (Auto) 81.2 % Lymphocytes (%) (Auto) 5.1 % Monocytes (%) (Auto) 11.3 % Eosinophils (%) (Auto) 2.0 % Basophils (%) (Auto) 0.4 % Neutrophils # (Auto) 2.08 1.4-6.5 K/uL Lymphocytes # (Auto) 0.13 1.2-3.4 K/uL Monocytes # (Auto) 0.29 0.11-0.59 K/uL Eosinophils # (Auto) 0.05 0-0.5 K/uL Basophils # (Auto) 0.01 0-0.2 K/uL RDW Standard Deviation 47.8 36.4-46.3 fL RDW Coefficient of Variation 15.0 11.5-14.5 % Immature Granulocyte % (Auto) 0.0 % Immature Granulocyte # (Auto) 0.00 0.00-0.02 K/uL Giant Platelets 1+ Prothrombin Time 12.4 9.0-12.0 SECONDS Prothromb Time International Ratio 1.2 0.9-1.1 Activated Partial Thromboplast Time 26.0 21.0-31.0 SECONDS Partial Thromboplastin Ratio 1.0 Sodium Level 135 136-145 mmol/L Potassium Level 3.3 3.5-5.1 mmol/L Chloride Level 97 98-107 mmol/L Carbon Dioxide Level 28 21-32 mmol/L Anion Gap 10.0 3-11 mmol/L Blood Urea Nitrogen 122 7-18 mg/dl Creatinine 4.06 0.60-1.40 mg/dl Est Creatinine Clear Calc Drug Dose 15.2 ml/min Estimated GFR () 14.4 Estimated GFR (Non- 12.4 BUN/Creatinine Ratio 29.9 10-20 Random Glucose 202 70-99 mg/dl Calcium Level 9.4 8.5-10.1 mg/dl Total Bilirubin 0.5 0.2-1 mg/dl Direct Bilirubin 0.2 0-0.2 mg/dl Aspartate Amino Transf (AST/SGOT) 47 15-37 U/L Alanine Aminotransferase (ALT/SGPT) 41 12-78 U/L Alkaline Phosphatase 100 45-117 U/L Ammonia 62.0 11-32 umol/L Total Protein 7.6 6.4-8.2 gm/dl Albumin 3.2 3.4-5.0 gm/dl Thyroid Stimulating Hormone (TSH) 6.600 0.300-4.500 uIu/ml Free Thyroxine 1.28 0.80-1.60 ng/dl Bedside Troponin I 0.040 0-0.045 ng/ml Microbiology Results 08/17/17 Blood Culture, Received Pending Diagnostic Radiology 2 VIEW CXR: IMPRESSION: No definite consolidation identified. Mild basilar opacity which favors atelectasis. EKG EKG: ventricular paced rhythm, rate 64 Impression Assessment and Plan AMBULATORY DYSFUNCTION/LETHARGY Reported increased lethargy today and trouble ambulating. Pt states feet feel heavy and have trouble walking. uses walker to ambulate. Denies extremity pain or increased LE edema. Not confused. No infiltrate on CXR. TSH: 6.6. Free T4 WNL. Suspect generalized debility/deconditioning -pending U/A -PT/OT eval ACUTE ON CHRONIC KIDNEY FAILURE CKD IV/V. Cr: 4 today. baseline 3-3.7 -nephrology consult -avoid nephrotoxic agents when possible CIRRHOSIS/CHRONIC EDEMA Hx recurrent ascites and fluid overload. Today pt does not appear significantly fluid overloaded. Pt was given lactulose in ER, ammonia level: 63. Pt is alert and oriented x 2 and not confused currently. -continue po diuretics and monitor closely -albumin for 1 day -hold on further lactulose at this time, repeat ammonia level in am -continue to monitor HYPOKALEMIA K: 3.3 -replace -monitor electrolytes DM II HA1c: 5.3 on 05/2017 -Basal, bolus insulin per protocol MYELODYSPLASTIC SYNDROME CHRONIC THROMBOCYTOPENIA Hgb: 10, at baseline. Plt: 38. No active bleeding -Monitor cbc and transfuse if needed CARLITA -continue CPAP HS SICK SINUS SYNDROME S/P PACEMAKER Denies CP or SOB PAROXYSMAL A-FIB paced rhythm DVT Prophylaxis -SCDs Disposition admit tele DNR as per discussion with pt Follows with Dr Garza for routine care Pt was seen with Dr Hoang. See addendum Attending Note: Patient is an 87 yr male with PMH of SHANE cirrhosis, 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, CKD IV, Sick Sinus syndrome S/P pacemaker and other comorbidities who was hospitalized multiple times in the past presents with history of increased Lethargy, ambulatory dysfunction which started today. Patient states he feels his legs to be heavier than usual and has trouble standing on his feet and ambulating.He has H/O chronic tremor which seemed to have worsened today causing difficulty to feed himself. Patient doesn't seem to have volume overload status when compared to my exam on previous admissions. Denies any weakness, numbness, tingling in his legs and is able to move his extremities with out any effort while in ED. No other relevant history could be obtained.Denies any chest pain, SOB, dizziness, abd pain, fever, chills. Physical Exam: Vitals signs as noted above General Appearance:No apparent distress, chronic ill appearing Head: normocephalic, Atraumatic Eyes: normal inspection, EOMI, PERRL Neck: supple, Trachea midline Respiratory/Chest: Normal breath sounds, CTA Cardiovascular: S1, S2, No murmur Abdomen/GI:Soft, Non tender, Bowel sounds present Extremities/Musculoskelatal:normal inspection, Trace B/L edema Neurologic/Psych:grossly no focal neurological deficits Skin:normal color,warm, Vertical well healed surgical scar on chest Assessment and Plan: Ambulatory Dysfunction: Likely secondary to general debility/deconditioning 2/2 comorbidities PT/OT No focal deficits on exam MAGEN on CKD IV Will give albumin given low BP monitor renal function Nephrology consulted Hypokalemia: Likely 2/2 diuretics replace and monitor Pancytopenia: H/O MDS, SHANE cirrhosis No bleeding issues transfuse PRBCs, Platelets as needed I personally reviewed the record. Patient is interviewed and examined at bedside. Patient's care is coordinated with Lisset Stephens PA-C. Please refer to the documentation above for details of patient's presentation and for discussion of other issues. Resuscitation Status DNR/DNI VTE Prophylaxis Will order VTE Prophylaxis: Yes Additional Copies To Anastacio Garza M.D.
[2017-08-17] MEDS ORDERED: INSULIN GLARGINE SOLOSTAR 100 UNITS/ML 3 ML PEN SC SCH (21:00)
[2017-08-17] MEDS: ALBUMIN HUMAN 25% 12.5 GM/50 ML VIAL IV SCH (21:08)
[2017-08-17] MEDS: RIFAXIMIN TAB 550 MG TAB PO SCH (21:09)
[2017-08-17 21:10] VITALS: BP 91/55; PULSE 66; TEMP 36.4; O2SAT 98
[2017-08-17] MEDS: FUROSEMIDE 20 MG TAB PO SCH (21:10)
[2017-08-17] MEDS: INSULIN GLARGINE SOLOSTAR 100 UNITS/ML 3 ML PEN SC SCH (21:28)
[2017-08-17] MEDS: INSULIN ASPART 100 UNITS/ML 3 ML PEN SC SCH (21:30)
[2017-08-17 22:24] VITALS: PULSE 61; O2SAT 98
[2017-08-17 22:27] VITALS: BP 85/57; PULSE 71; TEMP 36.4
[2017-08-17 23:49] VITALS: BP 98/52; PULSE 66; TEMP 36.4; O2SAT 97
[2017-08-18] VITALS (10 sets, daily range): BP systolic 83–112; BP diastolic 53–65; PULSE 62–91; TEMP 36.3–36.5; O2SAT 91–100
[2017-08-18 05:38] LABS: HEMATOCRIT 29.6 % (42-52); HEMOGLOBIN 10.1 g/dL (14.0-18.0); MEAN CELL VOLUME 87.3 fL (80-100); MEAN CORPUSCULAR HEMOGLOBIN 29.8 pg (25-34); MEAN CORPUSCULAR HGB CONC 34.1 g/dl (32-36); RED CELL DISTRIBUTION WIDTH CV 15.3 % (11.5-14.5); RED CELL DISTRIBUTION WIDTH SD 48.8 fL (36.4-46.3)
[2017-08-18 05:45] LABS: MEAN PLATELET VOLUME 9.6 fL (7.4-10.4); PLATELET COUNT 34 K/uL (130-400)
[2017-08-18 06:18] LABS: ALBUMIN 3.3 gm/dl (3.4-5.0); CALCIUM 9.4 mg/dl (8.5-10.1); CREATININE 3.77 mg/dl (0.60-1.40); POTASSIUM 3.8 mmol/L (3.5-5.1)
[2017-08-18 06:27] LABS: TOTAL PROTEIN 7.1 gm/dl (6.4-8.2)
--- NOTE | 2017-08-18 07:44 | Clinical Documentation Query ---
CLINICAL DOCUMENTATION QUERY QUERY 1 OF 2 87 yo male with PMH SHANE cirrhosis, presents with increased lethargy and elevated ammonia level In your clinical opinion is this patient being managed for: ( x ) Hepatic encephalopathy ( ) Not Agree ( ) Other explanation of clinical findings (Please Explain) ( ) Unable to determine (Please Define) ( ) Need to Discuss The medical record reflects the following clinical findings, treatment, and risk factors. Clinical Indicators: As above Treatment: Lactulose, monitor, ammonia level Risk Factors: Age, SHANE cirrhosis, MAGEN, CKD QUERY 2 OF 2 Patient hx cirrhosis and recurrent ascites, is currently c/o fatigue and lethargy. Creatinine level 4.06 and GFR 12.4. In your clinical opinion is this patient being managed for: ( ) Hepatorenal syndrome ( x ) Not Agree ( x ) Other explanation of clinical findings (Please Explain) MAGEN / CDK IV ( ) Unable to determine (Please Define) ( ) Need to Discuss The medical record reflects the following clinical findings, treatment, and risk factors. Clinical Indicators: As above Treatment: I&O, Nephrology consult, monitor Risk Factors: Age, CKD, MAGEN, SHANE cirrhosis Please clarify and document your clinical opinion in the progress notes and discharge summary. Terms such as "probable", "suspected", "likely", "questionable", "possible", or "still to be ruled out" are acceptable. IF IN AGREEMENT, YOU MUST DOCUMENT ABOVE DIAGNOSTIC STATEMENT IN DAILY PROGRESS NOTES AND DISCHARGE SUMMARY. This document is not part of the patient's record. Thank You, Cristela Lozano RN [phone]
[2017-08-18] MEDS: ALBUMIN HUMAN 25% 12.5 GM/50 ML VIAL IV SCH ×2 (08:04→13:32)
[2017-08-18] MEDS: FUROSEMIDE 20 MG TAB PO SCH ×2 (08:06→20:58)
[2017-08-18] MEDS: MIDODRINE 2.5 MG TAB PO SCH ×2 (08:06→15:59)
[2017-08-18] MEDS: INSULIN ASPART 100 UNITS/ML 3 ML PEN SC SCH ×4 (08:08→20:56)
[2017-08-18] MEDS: RIFAXIMIN TAB 550 MG TAB PO SCH ×2 (08:08→20:59)
[2017-08-18] MEDS: FERROUS SULFATE 325 MG TAB PO SCH (08:09)
[2017-08-18] MEDS: METOPROLOL SUCC 25MG EXT REL TAB PO SCH (08:09)
[2017-08-18] MEDS: SPIRONOLACTONE 25 MG TAB PO SCH (08:50)
[2017-08-18] MEDS ORDERED: METOLAZONE 5 MG TAB PO SCH (09:00)
[2017-08-18] MEDS: INSULIN GLARGINE SOLOSTAR 100 UNITS/ML 3 ML PEN SC SCH (20:56)
--- NOTE | 2017-08-18 23:17 | Progress Note ---
Medicine Progress Note Date & Time of Visit: Aug 18, 2017 at 18:10 . Subjective Admitted with weakness and confusion. Still weak and shaky. No fever. No chest pain. No cough or unusual dyspnea. No nausea or vomiting. No abdominal pain. Family visiting. . Objective Last 8 Hrs Date Time Temp Pulse Resp B/P (MAP) Pulse Ox O2 Delivery O2 Flow Rate FiO2 08/18/17 20:57 65 105/65 (78) 08/18/17 20:18 36.5 91 20 96/63 (74) 91 Room Air 08/18/17 19:30 Room Air 08/18/17 16:29 85/58 (67) 08/18/17 16:00 Room Air 08/18/17 15:32 36.4 62 14 83/53 (63) 94 Room Air Physical Exam: General- sitting in chair, no distress Lungs- clear; no respiratory distress Heart- RRR, II/ sys murmur LSB, no gallop appreciated; + JVD; 1+ pretibial and pedal edema Abdomen- + BS, distended, soft, nontender Extremities- no cyanosis; no calf tenderness Neuro- alert; mild confusion; moderate asterixis Skin- warm & dry . Laboratory Results: Last 24 Hours Test 08/18/17 05:25 08/18/17 05:28 08/18/17 06:17 08/18/17 07:31 White Blood Count 2.80 K/uL Red Blood Count 3.39 M/uL Hemoglobin 10.1 g/dL Hematocrit 29.6 % Mean Corpuscular Volume 87.3 fL Mean Corpuscular Hemoglobin 29.8 pg Mean Corpuscular Hemoglobin Concent 34.1 g/dl RDW Standard Deviation 48.8 fL RDW Coefficient of Variation 15.3 % Platelet Count 34 K/uL Mean Platelet Volume 9.6 fL Sodium Level 137 mmol/L Potassium Level 3.8 mmol/L Chloride Level 100 mmol/L Carbon Dioxide Level 27 mmol/L Anion Gap 10.0 mmol/L Blood Urea Nitrogen 118 mg/dl Creatinine 3.77 mg/dl Est Creatinine Clear Calc Drug Dose 15.2 ml/min Estimated GFR () 15.7 Estimated GFR (Non- 13.5 BUN/Creatinine Ratio 31.4 Random Glucose 174 mg/dl Calcium Level 9.4 mg/dl Magnesium Level 2.6 mg/dl Total Bilirubin 1.0 mg/dl Direct Bilirubin 0.3 mg/dl Aspartate Amino Transf (AST/SGOT) 44 U/L Alanine Aminotransferase (ALT/SGPT) 37 U/L Alkaline Phosphatase 92 U/L Total Protein 7.1 gm/dl Albumin 3.3 gm/dl Globulin 3.8 gm/dl Albumin/Globulin Ratio 0.9 Thyroid Stimulating Hormone (TSH) 3.640 uIu/ml Ammonia 58.0 umol/L Urine Color YELLOW Urine Appearance CLEAR Urine pH 5.5 Urine Specific Silver 1.011 Urine Protein NEG Urine Glucose (UA) NEG Urine Ketones NEG Urine Occult Blood NEG Urine Nitrite NEG Urine Bilirubin NEG Urine Urobilinogen NEG Urine Leukocyte Esterase TRACE Urine WBC (Auto) 1-5 /hpf Urine RBC (Auto) 0-4 /hpf Urine Hyaline Casts (Auto) 1-5 /lpf Urine Epithelial Cells (Auto) 5-10 /lpf Urine Bacteria (Auto) 1+ Bedside Glucose 189 mg/dl Test 08/18/17 11:30 08/18/17 16:06 08/18/17 20:30 Bedside Glucose 221 mg/dl 211 mg/dl 226 mg/dl Date/Time Source Procedure Growth Status 08/18/17 06:17 Urine , Random Urine Culture Pending Received Assessment & Plan WEAKNESS / CONFUSION / ASTERIXIS Suspect that current symptoms due to combination of worsening renal failure and hepatic encephalopathy. Specific issues are discussed below. 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 Creatinine on admission was 4.06. Therefore, acute kidney injury superimposed on CKD IV. Creatinine today = 3.77. Titrate diuretics. Follow. 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 Ammonia on admission 62. Experiencing confusion and asterixis. Titrate diuretics. Add lactulose. Continue rifaximin. HYPOKALEMIA Potassium on admission was 3.3. K 3.8 today. Follow. HISTORY SINOATRIAL DISEASE / PAROXYSMAL ATRIAL FIB S/P pacemaker. Continue metoprolol. No anticoagulants due to cirrhosis and thrombocytopenia. COPD / SLEEP APNEA Respiratory status stable. Continue CPAP. DM TYPE II Well-controlled. Hgb A1C 5.3 06/03/17. Tight control not indicated given advanced age and comorbidities. FBS this morning = 189. Continue Lantus + NovoLog with liberal blood sugar goals. 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 Chronic thrombocytopenia. No transfusions at this time per current guidelines. Follow. VTE PROPHYLAXIS Chemoprophylaxis contraindicated in light of thrombocytopenia. SCD's. DISPOSITION Anticipated return to [facility]. Family Medicine follow-up with Dr. Garza. Nephrology follow-up with Dr. Chong. . Current Inpatient Medications: Current Inpatient Medications Medications (Trade) Dose Ordered Sig/Gin Route Start Time Stop Time Status Last Admin Dose Admin Acetaminophen (Tylenol Tab) 650 mg Q4H PRN PO 08/17/17 18:00 09/16/17 17:59 Nitroglycerin (Nitrostat Tab) 0.4 mg UD PRN SL 08/17/17 18:00 09/16/17 17:59 Insulin Aspart (novoLOG ASPART) SLIDING SCALE If C... ACHS SC 08/17/17 21:00 09/16/17 20:59 08/18/17 20:56 2 UNITS Glucose (Glucose 40% Gel) 15-30 GRAMS 15 GRAMS... UD PRN PO 08/17/17 18:30 09/16/17 18:29 Glucose (Glucose Chew Tab) 4-8 Tablets 4 Tabl... UD PRN PO 08/17/17 18:30 09/16/17 18:29 Dextrose (Dextrose 50% 50ML Syringe) 25-50ML OF 50% DW IV FOR... UD PRN IV 08/17/17 18:30 09/16/17 18:29 Glucagon (Glucagon Inj) 1 mg UD PRN SQ 08/17/17 18:30 09/16/17 18:29 Folic Acid (Folvite Tab) 1 mg QAM PO 08/18/17 09:00 09/17/17 08:59 08/18/17 08:09 1 MG Furosemide (Lasix Tab) 40 mg BID PO 08/17/17 21:00 09/16/17 20:59 08/18/17 20:58 40 MG Metolazone (Zaroxolyn Tab) 5 mg QAM PO 08/18/17 09:00 09/17/17 08:59 08/18/17 08:07 5 MG Metoprolol Succinate (Toprol Xl Tab) 12.5 mg QAM PO 08/18/17 09:00 09/17/17 08:59 08/18/17 08:09 12.5 MG Midodrine (Proamatine Tab) 2.5 mg BID@0800,1600 PO 08/18/17 08:00 09/17/17 07:59 08/18/17 15:59 2.5 MG Rifaximin (Xifaxan Tab) 550 mg BID PO 08/17/17 21:00 09/16/17 20:59 08/18/17 20:59 550 MG Spironolactone (Aldactone Tab) 50 mg QAM PO 08/18/17 09:00 09/17/17 08:59 08/18/17 08:50 50 MG Ferrous Sulfate (Feosol Tab) 325 mg DAILY PO 08/18/17 09:00 09/17/17 08:59 08/18/17 08:09 325 MG Insulin Glargine (Lantus Solostar Pen) 5 units HS SC 08/17/17 21:00 09/16/17 20:59 08/18/17 20:56 5 UNITS
[2017-08-19] VITALS (13 sets, daily range): BP systolic 76–100; BP diastolic 45–65; PULSE 64–98; TEMP 36.2–36.7; O2SAT 97–100
[2017-08-19 06:45] LABS: CALCIUM 8.8 mg/dl (8.5-10.1); CREATININE 3.85 mg/dl (0.60-1.40); POTASSIUM 3.3 mmol/L (3.5-5.1)
[2017-08-19] MEDS: RIFAXIMIN TAB 550 MG TAB PO SCH ×2 (08:00→20:25)
[2017-08-19] MEDS: INSULIN ASPART 100 UNITS/ML 3 ML PEN SC SCH ×4 (08:00→20:28)
[2017-08-19] MEDS: POTASSIUM CHLORIDE 20 MEQ TABCR PO SCH (08:01)
[2017-08-19] MEDS: LACTULOSE SYRUP 30 GM/45 ML UDP PO SCH ×2 (08:02→20:25)
[2017-08-19] MEDS: MIDODRINE 2.5 MG TAB PO SCH ×2 (08:02→17:43)
[2017-08-19] MEDS: SPIRONOLACTONE 25 MG TAB PO SCH (08:02)
[2017-08-19] MEDS: FERROUS SULFATE 325 MG TAB PO SCH (08:04)
[2017-08-19] MEDS: METOPROLOL SUCC 25MG EXT REL TAB PO SCH (08:05)
--- NOTE | 2017-08-19 18:08 | Progress Note ---
Medicine Progress Note Date & Time of Visit: Aug 19, 2017 at 11:00 . Subjective Still somewhat confused. Ongoing weakness. No fever. Denies chest pain. No cough or shortness of breath. No nausea or vomiting. Had bowel movement this morning. . Objective Last 8 Hrs Date Time Temp Pulse Resp B/P (MAP) Pulse Ox O2 Delivery O2 Flow Rate FiO2 08/19/17 15:31 36.4 70 20 78/65 (69) 100 Room Air 08/19/17 12:00 Room Air 08/19/17 11:19 36.4 69 18 89/50 (63) 99 Room Air Physical Exam: General- sitting in chair, no distress Lungs- clear; no respiratory distress Heart- RRR, II/ sys murmur LSB, no gallop appreciated; + JVD; 1-2+ pretibial and pedal edema Abdomen- + BS, distended, soft, nontender Extremities- no cyanosis; no calf tenderness Neuro- alert; mild-moderate confusion; moderate asterixis Skin- warm & dry; chronic venous stasis changes lower extremities . Laboratory Results: Last 24 Hours Test 08/18/17 20:30 08/19/17 05:47 08/19/17 07:08 08/19/17 11:39 Bedside Glucose 226 mg/dl 166 mg/dl 191 mg/dl Sodium Level 134 mmol/L Potassium Level 3.3 mmol/L Chloride Level 96 mmol/L Carbon Dioxide Level 26 mmol/L Anion Gap 12.0 mmol/L Blood Urea Nitrogen 123 mg/dl Creatinine 3.85 mg/dl Est Creatinine Clear Calc Drug Dose 14.8 ml/min Estimated GFR () 15.3 Estimated GFR (Non- 13.2 BUN/Creatinine Ratio 32.0 Random Glucose 142 mg/dl Calcium Level 8.8 mg/dl Test 08/19/17 16:15 Bedside Glucose 243 mg/dl Assessment & Plan WEAKNESS / CONFUSION / ASTERIXIS Suspect that current symptoms due to combination of worsening renal failure and hepatic encephalopathy. Specific issues are discussed below. 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 Creatinine on admission was 4.06. Therefore, acute kidney injury superimposed on CKD IV. Creatinine today = 3.85. Titrate diuretics. Follow. 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 Ammonia on admission 62. Experiencing confusion and asterixis. Titrate diuretics. Added lactulose. Continue rifaximin. HYPOKALEMIA Potassium on admission was 3.3. K 3.3 today. Oral replacement. Follow. HISTORY SINOATRIAL DISEASE / PAROXYSMAL ATRIAL FIB S/P pacemaker. Continue metoprolol. No anticoagulants due to cirrhosis and thrombocytopenia. COPD / SLEEP APNEA Respiratory status stable. Continue CPAP. DM TYPE II Well-controlled. Hgb A1C 5.3 06/03/17. Tight control not indicated given advanced age and comorbidities. FBS this morning = 166. Continue Lantus + NovoLog with liberal blood sugar goals. 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 Chronic thrombocytopenia. No transfusions at this time per current guidelines. Follow. VTE PROPHYLAXIS Chemoprophylaxis contraindicated in light of thrombocytopenia. SCD's. DISPOSITION Anticipated return to [facility]. Family Medicine follow-up with Dr. Garza. Nephrology follow-up with Dr. Chong. . Current Inpatient Medications: Current Inpatient Medications Medications (Trade) Dose Ordered Sig/Gin Route Start Time Stop Time Status Last Admin Dose Admin Acetaminophen (Tylenol Tab) 650 mg Q4H PRN PO 08/17/17 18:00 09/16/17 17:59 Nitroglycerin (Nitrostat Tab) 0.4 mg UD PRN SL 08/17/17 18:00 09/16/17 17:59 Insulin Aspart (novoLOG ASPART) SLIDING SCALE If C... ACHS SC 08/17/17 21:00 09/16/17 20:59 08/19/17 17:45 5 UNITS Glucose (Glucose 40% Gel) 15-30 GRAMS 15 GRAMS... UD PRN PO 08/17/17 18:30 09/16/17 18:29 Glucose (Glucose Chew Tab) 4-8 Tablets 4 Tabl... UD PRN PO 08/17/17 18:30 09/16/17 18:29 Dextrose (Dextrose 50% 50ML Syringe) 25-50ML OF 50% DW IV FOR... UD PRN IV 08/17/17 18:30 09/16/17 18:29 Glucagon (Glucagon Inj) 1 mg UD PRN SQ 08/17/17 18:30 09/16/17 18:29 Folic Acid (Folvite Tab) 1 mg QAM PO 08/18/17 09:00 09/17/17 08:59 08/19/17 08:03 1 MG Metoprolol Succinate (Toprol Xl Tab) 12.5 mg QAM PO 08/18/17 09:00 09/17/17 08:59 08/18/17 08:09 12.5 MG Midodrine (Proamatine Tab) 2.5 mg BID@0800,1600 PO 08/18/17 08:00 09/17/17 07:59 08/19/17 17:43 2.5 MG Rifaximin (Xifaxan Tab) 550 mg BID PO 08/17/17 21:00 09/16/17 20:59 08/19/17 08:00 550 MG Spironolactone (Aldactone Tab) 50 mg QAM PO 08/18/17 09:00 09/17/17 08:59 08/19/17 08:02 50 MG Ferrous Sulfate (Feosol Tab) 325 mg DAILY PO 08/18/17 09:00 09/17/17 08:59 08/19/17 08:04 325 MG Insulin Glargine (Lantus Solostar Pen) 5 units HS SC 08/17/17 21:00 09/16/17 20:59 08/18/17 20:56 5 UNITS Lactulose (Chronulac Syrup) 30 gm BID PO 08/19/17 09:00 09/18/17 08:59 08/19/17 08:02 30 GM Potassium Chloride (Klor-Con Tab) 20 meq QAM PO 08/19/17 09:00 09/18/17 08:59 08/19/17 08:01 20 MEQ
[2017-08-19] MEDS: INSULIN GLARGINE SOLOSTAR 100 UNITS/ML 3 ML PEN SC SCH (20:28)
[2017-08-20] VITALS (11 sets, daily range): BP systolic 90–119; BP diastolic 55–71; PULSE 63–88; TEMP 36.3–36.9; O2SAT 92–100
[2017-08-20 07:11] LABS: CREATININE 3.66 mg/dl (0.60-1.40); POTASSIUM 3.6 mmol/L (3.5-5.1)
[2017-08-20] MEDS: LACTULOSE SYRUP 30 GM/45 ML UDP PO SCH ×2 (08:03→19:20)
[2017-08-20] MEDS: RIFAXIMIN TAB 550 MG TAB PO SCH ×2 (08:03→19:20)
[2017-08-20] MEDS: MIDODRINE 2.5 MG TAB PO SCH ×2 (08:04→17:31)
[2017-08-20] MEDS: METOPROLOL SUCC 25MG EXT REL TAB PO SCH (08:04)
[2017-08-20] MEDS: FERROUS SULFATE 325 MG TAB PO SCH (08:04)
[2017-08-20] MEDS: POTASSIUM CHLORIDE 20 MEQ TABCR PO SCH (08:04)
[2017-08-20] MEDS: INSULIN ASPART 100 UNITS/ML 3 ML PEN SC SCH ×4 (08:12→20:39)
[2017-08-20] MEDS: SPIRONOLACTONE 25 MG TAB PO SCH (08:54)
--- NOTE | 2017-08-20 14:49 | NEPHROLOGY CONSULTATION ---
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 The patient has a very very poor baseline health to begin with, but he was reportedly more lethargic and weak than usual. He could not ambulate, normally HE ambulates with a walker. It is not possible to get much accurate history from the patient as he could not even tell me where he came from prior to this hospitalization. He has had many admissions in the last 1 year, and it appears he has lost significant amount of weight compared to the past, there seems to be lot less swelling in his legs now than before. History was mainly constructed from the H&P, Emergency record and/or record obtained from the [facility]. As stated earlier, the patient could not really tell me much. PAST MEDICAL AND SURGICAL HISTORY: Anemia, ascites, chronic kidney disease stage IV, COPD, type 2 diabetes, dyslipidemia, history of ankle fracture, bladder cancer, hypertrophic cardiomyopathy, 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, paroxysmal atrial fibrillation, obstructive sleep apnea on CPAP, status post myomectomy for hypertrophic cardiomyopathy status post cardiac pacemaker. FAMILY HISTORY: Noncontributory for the acute problem. SOCIAL HISTORY: Former smoker, no alcohol. No tobacco now. He is . He is currently living at the [facility]. ALLERGIES: Reviewed. HOME MEDICATIONS: List was reviewed in detail. MEDICATIONS: At home, he takes metolazone 5 mg every day, spironolactone 50 mg every day and Lasix 40 mg twice daily. REVIEW OF SYSTEMS: Unable to obtain as the patient really could not tell me much. PHYSICAL EXAMINATION: GENERAL: Elderly white male who is chronically ill, weak. He seemed to have some degree of dementia as he could not tell me anything. HEENT: Mucous membrane is moist. NECK: Supple. No jugular venous distention. CHEST: Bilateral lungs clear, normal breath sounds, no wheezing or crackles heard. CARDIOVASCULAR: Regular rate and rhythm. Systolic murmur 3/6 heard. ABDOMEN: Soft, nontender. He does have ascites, but seemed to have decreased in size compared to before. EXTREMITIES: Shows pedal edema 1+ and even this seemed to be less than in the previous exam. He has chronic skin changes from longstanding venous insufficiency/lower extremity edema. NEUROLOGIC: He is awake and alert but could not answer difficult questions. LABORATORY TESTS: Reviewed in detail. This morning lab shows sodium 135, potassium 3.6, BUN 120; creatinine 3.66, creatinine was 4.06 at the time of admission, up from a baseline of around 3; BUN was 122 at the time of admission and is still about the same level. IMAGING DATA: Chest x-ray did not show any acute finding. ASSESSMENT AND PLAN: An 87-year-old male with many extensive comorbid disease involving pretty much all the organ systems in a long-term resident of [facility], admitted with increased weakness, lethargy and ambulatory dysfunction. I was consulted for acute renal failure on background chronic kidney disease stage IV to stage V. 1. Acute renal failure. At baseline, he has fairly advanced renal problem with a baseline creatinine of around 3 to 3.2. He has had numerous admissions related with fluid overload, acute renal failure. Creatinine has essentially come down pretty much close to his baseline, but the BUN is still high at 120. He appears to be somewhat volume depleted compared to the previous exam, but I would not necessarily give him IV fluid. For the time being, I would continue to hold the 3 diuretics he was getting at home. Once the BUN gets close to 100, we can restart the diuretics cautiously. But in the bigger scheme of things, there is nothing acute happening from acute renal failure standpoint. Technically, he does qualify as acute renal failure, but this is predominantly chronic kidney disease. 2. Lethargy and weakness secondary to deconditioning and all comorbid disease he has, consider hospice care. [facility]
[2017-08-20] MEDS: INSULIN GLARGINE SOLOSTAR 100 UNITS/ML 3 ML PEN SC SCH (20:40)
--- NOTE | 2017-08-20 21:30 | Progress Note ---
Medicine Progress Note Date & Time of Visit: Aug 20, 2017 at 10:50 . Subjective Feels better. Upper extremity shaking improved; able to feed himself more easily. No fever. No chest pain. No cough shortness of breath. No nausea or vomiting. Loose stool yesterday afternoon with lactulose; none yet today. Voiding without difficulty. . Objective Last 8 Hrs Date Time Temp Pulse Resp B/P (MAP) Pulse Ox O2 Delivery O2 Flow Rate FiO2 08/20/17 19:13 36.5 70 18 96/60 (72) 92 Room Air 08/20/17 16:10 Room Air 08/20/17 15:15 36.3 75 20 99/63 (75) 100 Physical Exam: General- lying in bed, no distress Lungs- clear; no respiratory distress Heart- RRR, II/ sys murmur LSB, no gallop appreciated; + JVD; 1-2+ pretibial and pedal edema Abdomen- + BS, distended, soft, nontender Extremities- no cyanosis; no calf tenderness Neuro- alert; mild confusion, but oriented 3; asterixis improved Skin- warm & dry; chronic venous stasis changes lower extremities . Laboratory Results: Last 24 Hours Test 08/20/17 06:11 08/20/17 07:18 08/20/17 11:43 08/20/17 16:22 Sodium Level 135 mmol/L Potassium Level 3.6 mmol/L Chloride Level 99 mmol/L Carbon Dioxide Level 28 mmol/L Anion Gap 9.0 mmol/L Blood Urea Nitrogen 120 mg/dl Creatinine 3.66 mg/dl Est Creatinine Clear Calc Drug Dose 15.6 ml/min Estimated GFR () 16.3 Estimated GFR (Non- 14.0 BUN/Creatinine Ratio 32.8 Random Glucose 152 mg/dl Calcium Level 9.0 mg/dl Ammonia 59.1 umol/L Bedside Glucose 166 mg/dl 222 mg/dl 174 mg/dl Test 08/20/17 20:19 Bedside Glucose 200 mg/dl Assessment & Plan WEAKNESS / CONFUSION / ASTERIXIS Suspect that current symptoms due to combination of worsening renal failure and hepatic encephalopathy. Specific issues are discussed below. 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 Creatinine on admission was 4.06. Therefore, acute kidney injury superimposed on CKD IV. Creatinine today = 3.66. Titrate diuretics. Follow. 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 Ammonia on admission 62. Experiencing confusion and asterixis. Titrate diuretics. Added lactulose. Continue rifaximin. Ammonia today = 59. Encephalopathy clinically improved. HYPOKALEMIA Potassium on admission was 3.3. K 3.6 today. Oral replacement. Follow. HISTORY SINOATRIAL DISEASE / PAROXYSMAL ATRIAL FIB S/P pacemaker. Continue metoprolol. No anticoagulants due to cirrhosis and thrombocytopenia. COPD / SLEEP APNEA Respiratory status stable. Continue CPAP. DM TYPE II Well-controlled. Hgb A1C 5.3 06/03/17. Tight control not indicated given advanced age and comorbidities. FBS this morning = 166. Continue Lantus + NovoLog with liberal blood sugar goals. 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 Chronic thrombocytopenia. No transfusions at this time per current guidelines. Follow. VTE PROPHYLAXIS Chemoprophylaxis contraindicated in light of thrombocytopenia. SCD's. DISPOSITION Anticipated return to [facility]. Family Medicine follow-up with Dr. Garza. Nephrology follow-up with Dr. Chong. . Current Inpatient Medications: Current Inpatient Medications Medications (Trade) Dose Ordered Sig/Gin Route Start Time Stop Time Status Last Admin Dose Admin Acetaminophen (Tylenol Tab) 650 mg Q4H PRN PO 08/17/17 18:00 09/16/17 17:59 Nitroglycerin (Nitrostat Tab) 0.4 mg UD PRN SL 08/17/17 18:00 09/16/17 17:59 Insulin Aspart (novoLOG ASPART) SLIDING SCALE If C... ACHS SC 08/17/17 21:00 09/16/17 20:59 08/20/17 20:39 1 UNITS Glucose (Glucose 40% Gel) 15-30 GRAMS 15 GRAMS... UD PRN PO 08/17/17 18:30 09/16/17 18:29 Glucose (Glucose Chew Tab) 4-8 Tablets 4 Tabl... UD PRN PO 08/17/17 18:30 09/16/17 18:29 Dextrose (Dextrose 50% 50ML Syringe) 25-50ML OF 50% DW IV FOR... UD PRN IV 08/17/17 18:30 09/16/17 18:29 Glucagon (Glucagon Inj) 1 mg UD PRN SQ 08/17/17 18:30 09/16/17 18:29 Folic Acid (Folvite Tab) 1 mg QAM PO 08/18/17 09:00 09/17/17 08:59 08/20/17 08:04 1 MG Metoprolol Succinate (Toprol Xl Tab) 12.5 mg QAM PO 08/18/17 09:00 09/17/17 08:59 08/18/17 08:09 12.5 MG Midodrine (Proamatine Tab) 2.5 mg BID@0800,1600 PO 08/18/17 08:00 09/17/17 07:59 08/20/17 17:31 2.5 MG Rifaximin (Xifaxan Tab) 550 mg BID PO 08/17/17 21:00 09/16/17 20:59 08/20/17 19:20 550 MG Ferrous Sulfate (Feosol Tab) 325 mg DAILY PO 08/18/17 09:00 09/17/17 08:59 08/20/17 08:04 325 MG Lactulose (Chronulac Syrup) 30 gm BID PO 08/19/17 09:00 09/18/17 08:59 08/20/17 19:20 30 GM Potassium Chloride (Klor-Con Tab) 20 meq QAM PO 08/19/17 09:00 09/18/17 08:59 08/20/17 08:04 20 MEQ Insulin Glargine (Lantus Solostar Pen) BSG LANTUS UNITS... HS SC 08/19/17 21:00 09/16/17 20:59 08/20/17 20:40 8 UNITS
[2017-08-21] VITALS (10 sets, daily range): BP systolic 90–110; BP diastolic 55–68; PULSE 64–79; TEMP 36.2–37.3; O2SAT 93–100
[2017-08-21] MEDS: FERROUS SULFATE 325 MG TAB PO SCH (08:03)
[2017-08-21] MEDS: RIFAXIMIN TAB 550 MG TAB PO SCH ×2 (08:03→21:12)
[2017-08-21] MEDS: LACTULOSE SYRUP 30 GM/45 ML UDP PO SCH ×2 (08:03→21:11)
[2017-08-21] MEDS: MIDODRINE 2.5 MG TAB PO SCH ×2 (08:03→16:08)
[2017-08-21] MEDS: METOPROLOL SUCC 25MG EXT REL TAB PO SCH (08:04)
[2017-08-21] MEDS: POTASSIUM CHLORIDE 20 MEQ TABCR PO SCH (08:04)
[2017-08-21] MEDS: INSULIN ASPART 100 UNITS/ML 3 ML PEN SC SCH ×4 (08:09→21:10)
[2017-08-21 08:55] LABS: CREATININE 3.37 mg/dl (0.60-1.40)
--- NOTE | 2017-08-21 10:20 | Nephrology Progress Note ---
Nephrology Progress Note Date of Service: Aug 21, 2017. Subjective 87 yo male with izaiah on ckd stage 4 with volume status much improved. diuretics have been adjusted and currently not on any diuretics at this time. oob to chair. feels comfortable. Objective Date Time Temp Pulse Resp B/P (MAP) Pulse Ox O2 Delivery O2 Flow Rate FiO2 08/21/17 08:48 79 91/55 (67) 08/21/17 08:20 Room Air 08/21/17 07:18 37.3 64 20 98/63 (75) 100 CPAP 08/21/17 04:36 36.9 77 20 103/65 (78) 96 Room Air 08/21/17 04:25 Room Air 08/21/17 00:17 Room Air 08/20/17 23:01 36.9 65 18 111/67 (82) 93 BiPAP 08/20/17 21:48 71 96 21 08/20/17 20:26 Room Air 08/20/17 19:13 36.5 70 18 96/60 (72) 92 Room Air 08/20/17 16:10 Room Air 08/20/17 15:15 36.3 75 20 99/63 (75) 100 08/20/17 12:00 99 Room Air 08/20/17 11:33 36.5 63 16 96/60 (72) 99 Room Air Physical Exam: General-aaox3 Eyes-no scleral icterus ENT-mmm Neck-supple Lungs-cta Heart-2/6 systolic mumur Abdomen-soft, mildly distended Extremities-no significant edema Neuro-nonfocal, ambulates with walker Current Inpatient Medications Medications (Trade) Dose Ordered Sig/Gin Route Start Time Stop Time Status Last Admin Dose Admin Acetaminophen (Tylenol Tab) 650 mg Q4H PRN PO 08/17/17 18:00 09/16/17 17:59 Nitroglycerin (Nitrostat Tab) 0.4 mg UD PRN SL 08/17/17 18:00 09/16/17 17:59 Insulin Aspart (novoLOG ASPART) SLIDING SCALE If C... ACHS SC 08/17/17 21:00 09/16/17 20:59 08/21/17 08:09 3 UNITS Glucose (Glucose 40% Gel) 15-30 GRAMS 15 GRAMS... UD PRN PO 3/29/18 18:30 09/16/17 18:29 Glucose (Glucose Chew Tab) 4-8 Tablets 4 Tabl... UD PRN PO 08/17/17 18:30 09/16/17 18:29 Dextrose (Dextrose 50% 50ML Syringe) 25-50ML OF 50% DW IV FOR... UD PRN IV 08/17/17 18:30 09/16/17 18:29 Glucagon (Glucagon Inj) 1 mg UD PRN SQ 08/17/17 18:30 09/16/17 18:29 Folic Acid (Folvite Tab) 1 mg QAM PO 08/18/17 09:00 09/17/17 08:59 08/21/17 08:04 1 MG Metoprolol Succinate (Toprol Xl Tab) 12.5 mg QAM PO 08/18/17 09:00 09/17/17 08:59 08/21/17 08:04 12.5 MG Midodrine (Proamatine Tab) 2.5 mg BID@0800,1600 PO 08/18/17 08:00 09/17/17 07:59 08/21/17 08:03 2.5 MG Rifaximin (Xifaxan Tab) 550 mg BID PO 08/17/17 21:00 09/16/17 20:59 08/21/17 08:03 550 MG Ferrous Sulfate (Feosol Tab) 325 mg DAILY PO 08/18/17 09:00 09/17/17 08:59 08/21/17 08:03 325 MG Lactulose (Chronulac Syrup) 30 gm BID PO 08/19/17 09:00 09/18/17 08:59 08/21/17 08:03 30 GM Potassium Chloride (Klor-Con Tab) 20 meq QAM PO 08/19/17 09:00 09/18/17 08:59 08/21/17 08:04 20 MEQ Insulin Glargine (Lantus Solostar Pen) BSG LANTUS UNITS... HS SC 08/19/17 21:00 09/16/17 20:59 08/20/17 20:40 8 UNITS Last 24 Hours Test 08/20/17 11:43 08/20/17 16:22 08/20/17 20:19 08/21/17 07:25 Bedside Glucose 222 mg/dl 174 mg/dl 200 mg/dl 156 mg/dl Test 08/21/17 08:24 08/21/17 09:12 Sodium Level 134 mmol/L Potassium Level mmol/L 3.9 mmol/L Chloride Level 98 mmol/L Carbon Dioxide Level 24 mmol/L Anion Gap 12.0 mmol/L Blood Urea Nitrogen 112 mg/dl Creatinine 3.37 mg/dl Est Creatinine Clear Calc Drug Dose 17.0 ml/min Estimated GFR () 18.0 Estimated GFR (Non- 15.5 BUN/Creatinine Ratio 33.3 Random Glucose 218 mg/dl Calcium Level 9.0 mg/dl Assessment & Plan izaiah on ckd stage 4-appears was mildly overdiuresed. home meds included metolazone 5mg a day, lasix 40mg po bid, and spironolactone 50mg a day. currently not on any diuretics. creatinine back to previous baseline. consider restarting spironolactone 25mg a day and lasix 40mg a day tomorrow as tolerated. will likely eventually regain the previous volume as we continue to hold diuretics and give lower doses of diuretics. will need to be monitored and diuretics adjusted as outpt as well. albumin in the low 3s.
[2017-08-21] MEDS ORDERED: SPIRONOLACTONE 25 MG TAB PO ONE (11:30)
--- NOTE | 2017-08-21 21:01 | Progress Note ---
Medicine Progress Note Date & Time of Visit: Aug 21, 2017 at 16:00 . Subjective Tired, but overall doing better. Asterixis/upper extremity shaking has improved and he is now able to feed himself without difficulty. No fever. No chest pain. No cough or shortness of breath. No nausea, vomiting, diarrhea. Voiding without difficulty. . Objective Last 8 Hrs Date Time Temp Pulse Resp B/P (MAP) Pulse Ox O2 Delivery O2 Flow Rate FiO2 08/21/17 19:33 36.5 69 18 110/68 (82) 100 Room Air 08/21/17 16:00 99 Room Air 08/21/17 15:37 36.2 79 16 95/61 (72) 93 Physical Exam: General- lying in bed, no distress Lungs- clear; no respiratory distress Heart- RRR with occasional ectopy, II/ sys murmur LSB, no gallop appreciated; + JVD; 1+ pretibial and pedal edema Abdomen- + BS, distended, soft, nontender Extremities- no cyanosis; no calf tenderness Neuro- alert; mild confusion, but oriented 3; asterixis improved Skin- warm & dry; chronic venous stasis changes lower extremities . Laboratory Results: Last 24 Hours Test 08/21/17 07:25 08/21/17 08:24 08/21/17 09:12 08/21/17 11:37 Bedside Glucose 156 mg/dl 211 mg/dl Sodium Level 134 mmol/L Potassium Level mmol/L 3.9 mmol/L Chloride Level 98 mmol/L Carbon Dioxide Level 24 mmol/L Anion Gap 12.0 mmol/L Blood Urea Nitrogen 112 mg/dl Creatinine 3.37 mg/dl Est Creatinine Clear Calc Drug Dose 17.0 ml/min Estimated GFR () 18.0 Estimated GFR (Non- 15.5 BUN/Creatinine Ratio 33.3 Random Glucose 218 mg/dl Calcium Level 9.0 mg/dl Test 08/21/17 16:28 Bedside Glucose 167 mg/dl Assessment & Plan WEAKNESS / CONFUSION / ASTERIXIS Suspect that current symptoms due to combination of worsening renal failure and hepatic encephalopathy. Specific issues are discussed below. 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 Creatinine on admission was 4.06. Therefore, acute kidney injury superimposed on CKD IV. BUN and creatinine today 112 and 3.37, respectively. Holding furosemide. Seems to do best clinically with BUNs in the 90s and creatinines in the low 3s. Continue spironolactone 50 mg daily. Continue to hold furosemide for another day or 2 until BUN is down in the 90s, then resume furosemide tentatively at reduced dose of 40 mg daily (with PM dose PRN for wt gain). Follow. 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 Ammonia on admission 62. Experiencing confusion and asterixis. Titrate diuretics. Added lactulose. Continue rifaximin. Ammonia yesterday = 59. Encephalopathy clinically improved, both confusion and asterixis. HYPOKALEMIA Potassium on admission was 3.3. K 3.9 today. Continue oral replacement with caution. Follow. HISTORY SINOATRIAL DISEASE / PAROXYSMAL ATRIAL FIB S/P pacemaker. Continue metoprolol. No anticoagulants due to cirrhosis and thrombocytopenia. COPD / SLEEP APNEA Respiratory status stable. Continue CPAP. DM TYPE II Well-controlled. Hgb A1C 5.3 06/03/17. Tight control not indicated given advanced age and comorbidities. FBS this morning = 211. Continue Lantus + NovoLog with liberal blood sugar goals. 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 Chronic thrombocytopenia. No transfusions at this time per current guidelines. Follow. AMBULATORY DYSFUNCTION Continue PT/OT. VTE PROPHYLAXIS Chemoprophylaxis contraindicated in light of thrombocytopenia. SCD's. RESUSCITATION STATUS DNR DISPOSITION Anticipated return [facility]. Family Medicine follow-up with Dr. Garza. Nephrology follow-up with Dr. Chong. . Consultants: Nephrology . Current Inpatient Medications: Current Inpatient Medications Medications (Trade) Dose Ordered Sig/Gin Route Start Time Stop Time Status Last Admin Dose Admin Acetaminophen (Tylenol Tab) 650 mg Q4H PRN PO 08/17/17 18:00 09/16/17 17:59 Nitroglycerin (Nitrostat Tab) 0.4 mg UD PRN SL 08/17/17 18:00 09/16/17 17:59 Insulin Aspart (novoLOG ASPART) SLIDING SCALE If C... ACHS SC 08/17/17 21:00 09/16/17 20:59 08/21/17 17:31 5 UNITS Glucose (Glucose 40% Gel) 15-30 GRAMS 15 GRAMS... UD PRN PO 08/17/17 18:30 09/16/17 18:29 Glucose (Glucose Chew Tab) 4-8 Tablets 4 Tabl... UD PRN PO 08/17/17 18:30 09/16/17 18:29 Dextrose (Dextrose 50% 50ML Syringe) 25-50ML OF 50% DW IV FOR... UD PRN IV 08/17/17 18:30 09/16/17 18:29 Glucagon (Glucagon Inj) 1 mg UD PRN SQ 08/17/17 18:30 09/16/17 18:29 Folic Acid (Folvite Tab) 1 mg QAM PO 08/18/17 09:00 09/17/17 08:59 08/21/17 08:04 1 MG Metoprolol Succinate (Toprol Xl Tab) 12.5 mg QAM PO 08/18/17 09:00 09/17/17 08:59 08/21/17 08:04 12.5 MG Midodrine (Proamatine Tab) 2.5 mg BID@0800,1600 PO 08/18/17 08:00 09/17/17 07:59 08/21/17 16:08 2.5 MG Rifaximin (Xifaxan Tab) 550 mg BID PO 08/17/17 21:00 09/16/17 20:59 08/21/17 08:03 550 MG Ferrous Sulfate (Feosol Tab) 325 mg DAILY PO 08/18/17 09:00 09/17/17 08:59 08/21/17 08:03 325 MG Lactulose (Chronulac Syrup) 30 gm BID PO 08/19/17 09:00 09/18/17 08:59 08/21/17 08:03 30 GM Potassium Chloride (Klor-Con Tab) 20 meq QAM PO 08/19/17 09:00 09/18/17 08:59 08/21/17 08:04 20 MEQ Insulin Glargine (Lantus Solostar Pen) BSG LANTUS UNITS... HS SC 08/19/17 21:00 09/16/17 20:59 08/20/17 20:40 8 UNITS Spironolactone (Aldactone Tab) 50 mg QAM PO 08/22/17 09:00 09/21/17 08:59
[2017-08-21] MEDS: INSULIN GLARGINE SOLOSTAR 100 UNITS/ML 3 ML PEN SC SCH (21:10)
[2017-08-22] VITALS (7 sets, daily range): BP systolic 90–106; BP diastolic 39–65; PULSE 56–73; TEMP 36.3–36.6; O2SAT 98–100
[2017-08-22 05:54] LABS: HEMATOCRIT 28.8 % (42-52); HEMOGLOBIN 9.8 g/dL (14.0-18.0); MEAN CELL VOLUME 87.5 fL (80-100); MEAN CORPUSCULAR HEMOGLOBIN 29.8 pg (25-34); RED CELL DISTRIBUTION WIDTH CV 15.2 % (11.5-14.5); RED CELL DISTRIBUTION WIDTH SD 48.4 fL (36.4-46.3)
[2017-08-22 05:55] LABS: MEAN PLATELET VOLUME 9.4 fL (7.4-10.4); PLATELET COUNT 35 K/uL (130-400)
[2017-08-22 06:31] LABS: CALCIUM 8.9 mg/dl (8.5-10.1); CREATININE 3.19 mg/dl (0.60-1.40); POTASSIUM 4.9 mmol/L (3.5-5.1)
[2017-08-22] MEDS: METOPROLOL SUCC 25MG EXT REL TAB PO SCH (08:01)
[2017-08-22] MEDS: FERROUS SULFATE 325 MG TAB PO SCH (08:01)
[2017-08-22] MEDS: MIDODRINE 2.5 MG TAB PO SCH ×2 (08:01→17:32)
[2017-08-22] MEDS: SPIRONOLACTONE 25 MG TAB PO SCH (08:02)
[2017-08-22] MEDS: LACTULOSE SYRUP 30 GM/45 ML UDP PO SCH ×2 (08:02→20:07)
[2017-08-22] MEDS: RIFAXIMIN TAB 550 MG TAB PO SCH ×2 (08:02→20:07)
[2017-08-22] MEDS: POTASSIUM CHLORIDE 20 MEQ TABCR PO SCH (08:02)
[2017-08-22] MEDS: INSULIN ASPART 100 UNITS/ML 3 ML PEN SC SCH ×4 (08:06→20:16)
--- NOTE | 2017-08-22 12:06 | Progress Note ---
Medicine Progress Note Date & Time of Visit: Aug 22, 2017 at 11:56. Subjective 87-year-old male with history of cirrhosis presented to the hospital with hepatic encephalopathy. Patient denies any issues overnight. Denies any belly pain, tolerating p.o., ambulating with walker around the hallways. Denies chest pain or trouble breathing. Patient is alert and oriented to person and place. Reports the date to be August 2016. Objective Last 8 Hrs Date Time Temp Pulse Resp B/P (MAP) Pulse Ox O2 Delivery O2 Flow Rate FiO2 08/22/17 11:22 36.5 68 16 106/53 (70) 99 Room Air 08/22/17 08:25 Room Air 08/22/17 08:11 73 91/54 (66) 08/22/17 07:20 36.6 67 18 90/39 (56) 99 08/22/17 04:00 Room Air Physical Exam: GEN: WNWD, in no acute distress, alert and appropriate HEENT: NC/AT, normal sclerae, MMM CARDIO: reg rate, S1/2 heard, 3/6 SOHAIL LUNGS: CTA bilaterally, no crackles, rales or wheezes, good diaphragmatic excursion ABD: soft, protuberant, non-tender, non-distended, no rebound or guarding, +BS EXTREMITY: RP and DP palpable 2+ bilat, no LE swelling or edema, extremities are warm and well-perfused, thin, +pedal edema present bilaterally. NEURO: CN 2-12 grossly intact MUSC: moves all extremities equally. SKIN: warm and dry, multiple areas of ecchymosis noted. Laboratory Results: 08/22/17 05:42 08/22/17 05:42 Test 08/17/17 15:52 08/17/17 16:06 08/18/17 05:25 08/18/17 06:17 Immature Granulocyte % (Auto) 0.0 % White Blood Count 2.56 K/uL (4.8-10.8) Red Blood Count 3.44 M/uL (4.7-6.1) Hemoglobin 10.0 g/dL (14.0-18.0) Hematocrit 30.1 % (42-52) Mean Corpuscular Volume 87.5 fL (80-100) Mean Corpuscular Hemoglobin 29.1 pg (25-34) Mean Corpuscular Hemoglobin Concent 33.2 g/dl (32-36) Platelet Count 38 K/uL (130-400) Mean Platelet Volume 10.7 fL (7.4-10.4) Neutrophils (%) (Auto) 81.2 % Lymphocytes (%) (Auto) 5.1 % Monocytes (%) (Auto) 11.3 % Eosinophils (%) (Auto) 2.0 % Basophils (%) (Auto) 0.4 % Neutrophils # (Auto) 2.08 K/uL (1.4-6.5) Lymphocytes # (Auto) 0.13 K/uL (1.2-3.4) Monocytes # (Auto) 0.29 K/uL (0.11-0.59) Eosinophils # (Auto) 0.05 K/uL (0-0.5) Basophils # (Auto) 0.01 K/uL (0-0.2) Immature Granulocyte # (Auto) 0.00 K/uL (0.00-0.02) Giant Platelets 1+ Prothrombin Time 12.4 SECONDS (9.0-12.0) Prothromb Time International Ratio 1.2 (0.9-1.1) Activated Partial Thromboplast Time 26.0 SECONDS (21.0-31.0) Partial Thromboplastin Ratio 1.0 Free Thyroxine 1.28 ng/dl (0.80-1.60) Bedside Troponin I 0.040 ng/ml (0-0.045) Magnesium Level 2.6 mg/dl (1.8-2.4) Total Bilirubin 1.0 mg/dl (0.2-1) Direct Bilirubin 0.3 mg/dl (0-0.2) Aspartate Amino Transf (AST/SGOT) 44 U/L (15-37) Alanine Aminotransferase (ALT/SGPT) 37 U/L (12-78) Alkaline Phosphatase 92 U/L (45-117) Total Protein 7.1 gm/dl (6.4-8.2) Albumin 3.3 gm/dl (3.4-5.0) Globulin 3.8 gm/dl (2.5-4.0) Albumin/Globulin Ratio 0.9 (0.9-2) Thyroid Stimulating Hormone (TSH) 3.640 uIu/ml (0.300-4.500) Urine Color YELLOW Urine Appearance CLEAR (CLEAR) Urine pH 5.5 (4.5-7.5) Urine Specific Pollock 1.011 (1.000-1.030) Urine Protein NEG (NEG) Urine Glucose (UA) NEG (NEG) Urine Ketones NEG (NEG) Urine Occult Blood NEG (NEG) Urine Nitrite NEG (NEG) Urine Bilirubin NEG (NEG) Urine Urobilinogen NEG (NEG) Urine Leukocyte Esterase TRACE (NEG) Urine WBC (Auto) 1-5 /hpf (0-5) Urine RBC (Auto) 0-4 /hpf (0-4) Urine Hyaline Casts (Auto) 1-5 /lpf (0-5) Urine Epithelial Cells (Auto) 5-10 /lpf (0-5) Urine Bacteria (Auto) 1+ (NEG) Test 08/22/17 05:42 08/22/17 05:45 08/22/17 11:42 Red Blood Count 3.29 M/uL (4.7-6.1) Mean Corpuscular Volume 87.5 fL (80-100) Mean Corpuscular Hemoglobin 29.8 pg (25-34) Mean Corpuscular Hemoglobin Concent 34.0 g/dl (32-36) RDW Standard Deviation 48.4 fL (36.4-46.3) RDW Coefficient of Variation 15.2 % (11.5-14.5) Mean Platelet Volume 9.4 fL (7.4-10.4) Anion Gap 9.0 mmol/L (3-11) Est Creatinine Clear Calc Drug Dose 17.9 ml/min Estimated GFR () 19.2 Estimated GFR (Non- 16.6 BUN/Creatinine Ratio 34.5 (10-20) Calcium Level 8.9 mg/dl (8.5-10.1) Ammonia 101.0 umol/L (11-32) Bedside Glucose 217 mg/dl (70-99) Date/Time Source Procedure Growth Status 08/17/17 16:22 Blood Blood Culture - Preliminary NO GROWTH TO DATE. Resulted 08/18/17 06:17 Urine , Random Urine Culture - Final THREE TYPES OF ORGANISMS PRESENT, ALL... Complete Last 24 Hours Test 08/21/17 16:28 08/21/17 21:02 08/22/17 05:42 08/22/17 05:45 Bedside Glucose 167 mg/dl 169 mg/dl White Blood Count 2.90 K/uL Red Blood Count 3.29 M/uL Hemoglobin 9.8 g/dL Hematocrit 28.8 % Mean Corpuscular Volume 87.5 fL Mean Corpuscular Hemoglobin 29.8 pg Mean Corpuscular Hemoglobin Concent 34.0 g/dl RDW Standard Deviation 48.4 fL RDW Coefficient of Variation 15.2 % Platelet Count 35 K/uL Mean Platelet Volume 9.4 fL Sodium Level 136 mmol/L Potassium Level 4.9 mmol/L Chloride Level 102 mmol/L Carbon Dioxide Level 26 mmol/L Anion Gap 9.0 mmol/L Blood Urea Nitrogen 110 mg/dl Creatinine 3.19 mg/dl Est Creatinine Clear Calc Drug Dose 17.9 ml/min Estimated GFR () 19.2 Estimated GFR (Non- 16.6 BUN/Creatinine Ratio 34.5 Random Glucose 144 mg/dl Calcium Level 8.9 mg/dl Ammonia 101.0 umol/L Test 08/22/17 07:39 08/22/17 11:42 Bedside Glucose 153 mg/dl 217 mg/dl Assessment & Plan 87-year-old male with history of cirrhosis presented to the hospital with hepatic encephalopathy. Patient denies any issues overnight. Denies any belly pain, tolerating p.o., ambulating with walker around the hallways. Denies chest pain or trouble breathing. Patient is alert and oriented to person and place. Reports the date to be August 2016. 1. Hepatic encephalopathy-improved, no altered mental status today. Bowel movements are reported to be regular on lactulose. Of note symptoms of confusion also thought to be secondary to worsening recent renal failure which is also in. 2. Acute on chronic renal failure (CKD stage IV)-baseline creatinine 3-3.2 with 4 on admission. Lasix was held. Continues on spironolactone 50 mg daily. Nephrology following. Continue to hold furosemide until BUN lower into the 90s, then resume furosemide tentatively at a reduced dose of 40 mg daily. 3. Cirrhosis with ascites-secondary to Candel[place]. Continue rifaximin and lactulose. Encephalopathy clinically improved. Continue to monitor for clinical decline. 4. Paroxysmal atrial fibrillation-status post pacemaker, continue metoprolol, anticoagulation contraindicated secondary to thrombocytopenia. 5. 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 Stable. No evidence of bleeding. 6. History of COPD-stable 7. CARLITA-continue overnight CPAP 8. Diabetes type 2-well controlled with recent A1c 5.3 in May 2017. Continue Lantus with insulin sliding scale and carb coverage while hospitalized. 9. Myelodysplastic syndrome-pancytopenia seen on labs it is stable. Anemia likely due to combination of MDS plus CKD. Chronic thrombocytopenia as noted above. No transfusion indicated at this time. Continue to follow CBC periodically. 10. Ambulatory dysfunction-ambulates with walker, continue PT/OT. Of note [facility] and will be discharged to their when optimized. DVT prophylaxis-contraindicated in setting of thrombocytopenia, SCDs DO NOT RESUSCITATE Disposition-likely to [facility] in next 1-2 days pending nephrology plans. Dotty Davison DO [facility] hospitalist Consultants: Nephrology-[facility] Current Inpatient Medications: Current Inpatient Medications Medications (Trade) Dose Ordered Sig/Gin Route Start Time Stop Time Status Last Admin Dose Admin Acetaminophen (Tylenol Tab) 650 mg Q4H PRN PO 08/17/17 18:00 09/16/17 17:59 Nitroglycerin (Nitrostat Tab) 0.4 mg UD PRN SL 08/17/17 18:00 09/16/17 17:59 Insulin Aspart (novoLOG ASPART) SLIDING SCALE If C... ACHS SC 08/17/17 21:00 09/16/17 20:59 08/22/17 08:06 4 UNITS Glucose (Glucose 40% Gel) 15-30 GRAMS 15 GRAMS... UD PRN PO 08/17/17 18:30 09/16/17 18:29 Glucose (Glucose Chew Tab) 4-8 Tablets 4 Tabl... UD PRN PO 08/17/17 18:30 09/16/17 18:29 Dextrose (Dextrose 50% 50ML Syringe) 25-50ML OF 50% DW IV FOR... UD PRN IV 08/17/17 18:30 09/16/17 18:29 Glucagon (Glucagon Inj) 1 mg UD PRN SQ 08/17/17 18:30 09/16/17 18:29 Folic Acid (Folvite Tab) 1 mg QAM PO 08/18/17 09:00 09/17/17 08:59 08/22/17 08:02 1 MG Metoprolol Succinate (Toprol Xl Tab) 12.5 mg QAM PO 08/18/17 09:00 09/17/17 08:59 08/22/17 08:01 12.5 MG Midodrine (Proamatine Tab) 2.5 mg BID@0800,1600 PO 08/18/17 08:00 09/17/17 07:59 08/22/17 08:01 2.5 MG Rifaximin (Xifaxan Tab) 550 mg BID PO 08/17/17 21:00 09/16/17 20:59 08/22/17 08:02 550 MG Ferrous Sulfate (Feosol Tab) 325 mg DAILY PO 08/18/17 09:00 09/17/17 08:59 08/22/17 08:01 325 MG Lactulose (Chronulac Syrup) 30 gm BID PO 08/19/17 09:00 09/18/17 08:59 08/22/17 08:02 30 GM Potassium Chloride (Klor-Con Tab) 20 meq QAM PO 08/19/17 09:00 09/18/17 08:59 08/22/17 08:02 20 MEQ Insulin Glargine (Lantus Solostar Pen) BSG LANTUS UNITS... HS SC 08/19/17 21:00 09/16/17 20:59 08/21/17 21:10 6 UNITS Spironolactone (Aldactone Tab) 50 mg QAM PO 08/22/17 09:00 09/21/17 08:59 08/22/17 08:02 50 MG
[2017-08-22] MEDS: INSULIN GLARGINE SOLOSTAR 100 UNITS/ML 3 ML PEN SC SCH (20:17)
[2017-08-23 00:04] VITALS: BP 94/59; PULSE 70; TEMP 36.7; O2SAT 100
[2017-08-23 03:38] VITALS: BP 90/59; PULSE 61; TEMP 36.6; O2SAT 98
[2017-08-23 06:15] LABS: CALCIUM 8.7 mg/dl (8.5-10.1); CREATININE 3.15 mg/dl (0.60-1.40); POTASSIUM 4.4 mmol/L (3.5-5.1)
[2017-08-23 07:38] VITALS: BP 94/57; PULSE 68; TEMP 36.4; O2SAT 100
[2017-08-23] MEDS: RIFAXIMIN TAB 550 MG TAB PO SCH (08:05)
[2017-08-23] MEDS: MIDODRINE 2.5 MG TAB PO SCH ×2 (08:05→15:19)
[2017-08-23] MEDS: SPIRONOLACTONE 25 MG TAB PO SCH (08:05)
[2017-08-23] MEDS: FERROUS SULFATE 325 MG TAB PO SCH (08:05)
[2017-08-23] MEDS: METOPROLOL SUCC 25MG EXT REL TAB PO SCH (08:06)
[2017-08-23] MEDS: LACTULOSE SYRUP 30 GM/45 ML UDP PO SCH (08:06)
[2017-08-23] MEDS: INSULIN ASPART 100 UNITS/ML 3 ML PEN SC SCH ×2 (08:08→12:08)
[2017-08-23] MEDS: INSULIN GLARGINE SOLOSTAR 100 UNITS/ML 3 ML PEN SC SCH (08:09)
[2017-08-23 11:36] VITALS: BP 95/62; PULSE 75; TEMP 36.4; O2SAT 94
[2017-08-23] MEDS ORDERED: LCTL45 PO (15:07)
--- NOTE | 2017-08-23 15:18 | Discharge Instructions ---
Discharge Instructions Date of Service Aug 23, 2017. Admission Reason for Admission: Acute On Chronic Renal Failure Discharge Discharge Diagnosis / Problem: Acute on chronic renal failure, hepatic encephalopathy, cirrhosis w/ascites Discharge Goals Goal(s): Prevent Disease Progression Activity Recommendations Activity Limitations: per Instructions/Follow-up section . Instructions / Follow-Up Instructions / Follow-Up Please take all medications as instructed. You have been given lactulose to take to help you have at least 2-3 bowel movements daily. This will help you rid specific toxins from your body so they don't build up. If you have already had 3 bowel movements that day, you may skip the second dose. It is recommended that you have a one week follow-up with your primary care physician (PCP) after hospital discharge to touch base on anything that has changed and ensure you are still doing well. You had a mildly elevated TSH (6.6) while in the hospital. Please discuss repeating this as an outpatient with your PCP. On discharge, your diuretics including Lasix and Metolazone have been temporarily stopped. I would like you to have a PARTIAL RENAL PROFILE on Mon, , with the results sent to Dr. Marion Fowler who will guide you further on the safest time to restart the Lasix. It was a pleasure taking care of you! Call if you have any questions or problems. You can reach a [facility] hospitalist on duty at [facility] 24 hours a day by calling [phone]. Take care of yourself. Dotty Davison DO [facility] Hospitalist Current Hospital Diet Patient's current hospital diet: Diabetes Type 2 Diet, Renal Diet, Low Sodium Diet (2gm Na) Discharge Diet Recommended Diet: Low Sodium Diet (2gm Na), Diabetes Type 2 Diet, Renal Diet Procedures Procedures Performed: None. Pending Studies Studies pending at discharge: no Laboratory Results Hemoglobin A1c Test 06/03/17 06:48 Range/Units Estimated Average Glucose 105 mg/dl Hemoglobin A1c 5.3 4.5-5.6 % Medical Emergencies . Who to Call and When: Medical Emergencies: If at any time you feel your situation is an emergency, please call 911 immediately. . Non-Emergent Contact Non-Emergency issues call your: Primary Care Provider . . "Provider Documentation" section prepared by Dotty Davison. .
--- NOTE | 2017-08-23 15:21 | Discharge Summary ---
Discharge Summary Date of Service Aug 23, 2017. Discharge Summary Admission Date: Aug 17, 2017 at 18:00 Discharge Date: Aug 23, 2017 Discharge Disposition: Personal care Principal Diagnosis: Acute on chronic renal failure Hepatic encephalopathy-resolved Cirrhosis with ascites Procedures: None. Consultations: Nephrology-Oncu Pending Studies/Follow-Up: see instructions below. Medication Reconciliation New Medications: Lactulose (Lactulose) 30 Gm/45 Ml Syrp 45 ML PO BID for 30 Days, #500 ML Please hold taking second dose if patient has had three BMs already that day. Continued Medications: Ferrous Sulfate (Iron) 325 Mg Tab 325 MG PO QAM Folic Acid (Folic Acid) 1 Mg Tab 1 MG PO QAM Insulin Aspart (Novolog) 100 Units/Ml Inj SQ ACHS SLIDING SCALE 1 UNIT FOR EVERY 20 MG/DL INCREASE IN GLUCOSE ABOVE 150. ADD 6 UNITS TO LUNCH SLIDING SCALE Insulin Glargine (Lantus Solostar) 100 Unit/Ml Inj 14 UNITS SQ HS Metoprolol Succ (Toprol Xl) (Toprol-Xl) 25 Mg Tabcr 12.5 MG PO QAM Midodrine (Midodrine HCl) 2.5 Mg Tab 2.5 MG PO BID Nitroglycerin (Nitrostat) 0.4 Mg Tab 0.4 MG UT UD PRN for Chest Pain Ondansetron Hcl (Zofran) 4 Mg Tab 4 MG PO Q6H PRN for Nausea Rifaximin (Xifaxan) 550 Mg Tab 550 MG PO BID Spironolactone (Aldactone) 25 Mg Tab 50 MG PO QAM Discontinued Medications: Furosemide (Lasix) 20 Mg Tab 40 MG PO BID Metolazone (Zaroxolyn) 5 Mg Tab 5 MG PO QAM TAKE 30 MIN BEFORE TAKING MORNING DOSE OF AM LASIX Admission Information HPI (per Admitting provider): Pt is 87 y/o M with PMH CANDELARIO cirrhosis, recurrent ascites, COPD, DM II, CKD IV/V , paroxysmal a-fib, sick sinus syndrome s/p pacemaker, hx 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, chronic thrombocytopenia presented to ER from [facility] with c/o increased lethargy. Reported by nursing staff that patient more lethargic than usual. Patient reports bilateral feet feel heavy and having trouble walking today. Usually uses walker to ambulate. Patient states was feeling well yesterday. Patient also complains of tremors to bilateral hands and reports they are been worse than normal past couple of days and he is having trouble feeding himself secondary to tremors. Multiple recurrent admissions secondary to fluid overload. Patient states not having increased lower edema extremity feels edema is at baseline and denies any increased abdominal girth. Denies any bleeding, epistaxis, melena, hematochezia. Denies recent falls. Denies fever/ chills, diaphoresis, N/V/D/C, [place], dizziness, syncope, vision changes, neck pain , CP, SOB, orthopnea, palpitations, cough, choking, rhinorrhea, abdominal pain, paresthesias, rashes, urinary symptoms. In ER pt given dose of lactulose for ammonia level 62. Physical Exam (per Admitting): General Appearance: WD/WN, no apparent distress Head: normocephalic, atraumatic Eyes: normal inspection, PERRL, EOMI, sclerae normal ENT: hearing grossly normal (hard of hearing), pharynx normal, + pertinent finding (membranes moist) Neck: supple, no JVD, trachea midline Respiratory/Chest: lungs clear, normal breath sounds, no respiratory distress Cardiovascular: regular rate, rhythm, + systolic murmur Abdomen/GI: normal bowel sounds, non tender, soft Extremities/Musculoskelatal: no calf tenderness, non-tender, + pedal edema ( 1-2+ BLE), + pertinent finding (mild intential tremors noted bilateral hands. one beat of asterixis ) Neurologic/Psych: alert, normal mood/affect, + pertinent finding (oriented to person and place. pt hard of hearing and have to repeat questions) Skin: warm/dry, + pertinent finding (+ecchymosis to bilateral arms) Hospital Course 87-year-old male with history of cirrhosis presented to the hospital with hepatic encephalopathy. Patient denies any issues overnight. Denies any belly pain, tolerating p.o., ambulating with walker around the hallways. Denies chest pain or trouble breathing. Patient is alert and oriented to person and place. Reports the date to be August 2016. 1. Hepatic encephalopathy-improved, no altered mental status today. Bowel movements are reported to be regular on lactulose. Of note symptoms of confusion also thought to be secondary to worsening recent renal failure which is also in. 2. Acute on chronic renal failure (CKD stage IV)-baseline creatinine 3-3.2 with 4 on admission. Lasix was held. Continues on spironolactone 50 mg daily. Nephrology following. Continue to hold furosemide until BUN lower into the 90s, then resume furosemide tentatively at a reduced dose of 40 mg daily. 3. Cirrhosis with ascites-secondary to Candel[place]. Continue rifaximin and lactulose. Encephalopathy clinically improved. Continue to monitor for clinical decline. 4. Paroxysmal atrial fibrillation-status post pacemaker, continue metoprolol, anticoagulation contraindicated secondary to thrombocytopenia. 5. 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 Stable. No evidence of bleeding. 6. History of COPD-stable 7. CARLITA-continue overnight CPAP 8. Diabetes type 2-well controlled with recent A1c 5.3 in May 2017. Continue Lantus with insulin sliding scale and carb coverage while hospitalized. 9. Myelodysplastic syndrome-pancytopenia seen on labs it is stable. Anemia likely due to combination of MDS plus CKD. Chronic thrombocytopenia as noted above. No transfusion indicated at this time. Continue to follow CBC periodically. 10. Ambulatory dysfunction-ambulates with walker, continue PT/OT. Of note patient resides in personal senior living and will be discharged to their when optimized. DVT prophylaxis-contraindicated in setting of thrombocytopenia, SCDs DO NOT RESUSCITATE Disposition-likely to personal senior living in next 1-2 days pending nephrology plans. Dotty Davison DO [facility] hospitalist Total time spent on discharge = 60 minutes This includes examination of the patient, discharge planning, medication reconciliation, and communication with other providers. [place] [address] Discharge Medical Patient Name: Ariel Floyd Unit Number: [id number] Date of : 1930 Patient Status: Admitted Inpatient Attending Doctor: Dotty Dvaison DO DI: Medical v5 Discharge Instructions Date of Service Aug 23, 2017. Admission Reason for Admission: Acute On Chronic Renal Failure Discharge Discharge Diagnosis / Problem: Acute on chronic renal failure, hepatic encephalopathy, cirrhosis w/ascites Discharge Goals Goal(s): Prevent Disease Progression Activity Recommendations Activity Limitations: per Instructions/Follow-up section . Instructions / Follow-Up Instructions / Follow-Up Please take all medications as instructed. You have been given lactulose to take to help you have at least 2-3 bowel movements daily. This will help you rid specific toxins from your body so they don't build up. If you have already had 3 bowel movements that day, you may skip the second dose. It is recommended that you have a one week follow-up with your primary care physician (PCP) after hospital discharge to touch base on anything that has changed and ensure you are still doing well. You had a mildly elevated TSH (6.6) while in the hospital. Please discuss repeating this as an outpatient with your PCP. On discharge, your diuretics including Lasix and Metolazone have been temporarily stopped. I would like you to have a PARTIAL RENAL PROFILE on Mon, , with the results sent to Dr. Marion Fowler who will guide you further on the safest time to restart the Lasix. It was a pleasure taking care of you! Call if you have any questions or problems. You can reach a [facility] hospitalist on duty at [facility] 24 hours a day by calling [phone]. Take care of yourself. Dotty Davison, [facility] Hospitalist Current Hospital Diet Patient's current hospital diet: Diabetes Type 2 Diet, Renal Diet, Low Sodium Diet (2gm Na) Discharge Diet Recommended Diet: Low Sodium Diet (2gm Na), Diabetes Type 2 Diet, Renal Diet Procedures Procedures Performed: None. Pending Studies Studies pending at discharge: no Laboratory Results Hemoglobin A1c Test 06/03/17 06:48 Range/Units Estimated Average Glucose 105 mg/dl Hemoglobin A1c 5.3 4.5-5.6 % Medical Emergencies . Who to Call and When: Medical Emergencies: If at any time you feel your situation is an emergency, please call 911 immediately. . Non-Emergent Contact Non-Emergency issues call your: Primary Care Provider . . "Provider Documentation" section prepared by Dotty Davison. . Additional Copies To Anastacio Garza M.D.
[2017-08-23 15:27] VITALS: BP 95/62; PULSE 75; TEMP 36.4; O2SAT 94
[2017-08-23 15:30] VITALS: BP 104/62; PULSE 63; TEMP 36.3; O2SAT 100
== END 2017-08-23 16:28 | disposition home or self-care (01) | DRG 441 ==
LOC: EDBD 15:00 → C.EDC 15:01 → C.MED 18:00 → ENRESERV 18:40
PROVIDERS: ADMIT Internal Medicine; ATTEND Hospitalist
DX: K75.81 Nonalcoholic steatohepatitis (NASH) (principal); K72.00 Acute and subacute hepatic failure without coma; N17.9 Acute kidney failure, unspecified; D61.818 Other pancytopenia; I42.2 Other hypertrophic cardiomyopathy; N18.4 Chronic kidney disease, stage 4 (severe); J44.9 Chronic obstructive pulmonary disease, unspecified; Z85.51 Personal history of malignant neoplasm of bladder; K74.60 Unspecified cirrhosis of liver; E11.21 Type 2 diabetes mellitus with diabetic nephropathy; E78.5 Hyperlipidemia, unspecified; D46.9 Myelodysplastic syndrome, unspecified; I48.0 Paroxysmal atrial fibrillation; G47.33 Obstructive sleep apnea (adult) (pediatric); E87.6 Hypokalemia; Z87.891 Personal history of nicotine dependence; Z88.5 Allergy status to narcotic agent; Z88.8 Allergy status to other drugs, medicaments and biological substances; Z95.0 Presence of cardiac pacemaker; Z66 Do not resuscitate

== ENCOUNTER → 2017-09-18 | Outpatient (CLI) | payer OTHER ==
[~2017-09-18] MED LIST changes: -FURO80TA63 PO; +LCTL45 PO; -ZRX5 PO
[2017-09-18 13:27] LABS: BLOOD UREA NITROGEN 57 mg/dl (7-18); CALCIUM 8.1 mg/dl (8.5-10.1); CARBON DIOXIDE 20 mmol/L (21-32); CREATININE 2.76 mg/dl (0.60-1.40); GLUCOSE 109 mg/dl (70-99); SODIUM 142 mmol/L (136-145)
== END | disposition home or self-care (01) ==
LOC: C.LABSALHI 17:44
PROVIDERS: ATTEND Internal Medicine Nephrology
DX: N18.4 Chronic kidney disease, stage 4 (severe) (principal)

== ENCOUNTER 2018-11-26 16:25 | Inpatient (IN) ==
[2018-11-26] MEDS ORDERED: SODIUM CHLORIDE 0.9% 1000ML 500 ML IV ONE (16:53)
[2018-11-26] MEDS ORDERED: SODIUM CHLORIDE 0.9% 1000ML 1,000 ML IV SCH (17:00)
[2018-11-26 17:28] LABS: Hematocrit (blood only) 35.1 % (42-52); Hemoglobin 11.9 g/dL (14.0-18.0); Mean Corpuscular Hgb Conc 33.9 g/dL (32-36); Mean Corpuscular Volume 90.7 fL (80-100); Mean Platelet Volume 11.4 fL (7.4-10.4); Platelet Count 70 K/uL (130-400); RDW Coefficient of Variation 15.9 % (11.5-14.5); RDW Standard Deviation 52.4 fL (36.4-46.3); Red Blood Count 3.87 M/uL (4.7-6.1); White Blood Count 6.97 K/uL (4.8-10.8)
[2018-11-26 17:29] LABS: Basophils # (auto) 0.02 K/uL (0-0.2); Basophils % (auto) 0.3 %; Eosinophils % (auto) 1.4 %; Immature Granulocytes # (auto) 0.02 K/uL (0.00-0.02); Immature Granulocytes % (auto) 0.3 %; Lymphocytes # (auto) 0.38 K/uL (1.2-3.4); Lymphocytes % (auto) 5.5 %; Monocytes # (auto) 0.75 K/uL (0.11-0.59); Monocytes % (auto) 10.8 %; Neutrophils % (auto) 81.7 %
[2018-11-26 17:40] LABS: Albumin Globulin Ratio 0.7 (0.9-2); Albumin Level 2.9 gm/dl (3.4-5.0); BUN Creatinine Ratio 22.2 (10-20); Bilirubin,Total 0.8 mg/dl (0.2-1); Calcium 9.3 mg/dl (8.5-10.1); Est GFR (African American) 12.2; Est GFR (Non-African American) 10.5; Total Protein 6.9 gm/dl (6.4-8.2); Troponin I 0.062 ng/ml (0-0.045)
--- NOTE | 2018-11-26 17:57 | CT Scan Report ---
HEAD CT NONCONTRAST CT DOSE: HISTORY: Head and facial trauma. Trauma TECHNIQUE: Multiaxial CT images of the head were performed without the use of intravenous contrast. A utomated exposure control was utilized for this study. A dose lowering technique was utilized adheri ng to the principles of ALARA. Comparison: None. Findings: The paranasal sinuses and mastoid air cells are clear. The calvarium and skull base are int act. There is no mass, hematoma, midline shift, acute infarct. White matter hypodensity is nonspecifi c but suggestive of microvascular ischemic change. The ventricles and sulci demonstrate mild age-rela keysha involutional changes. Frontal scalp swelling with a soft tissue hematoma. Impression: No acute intracranial abnormality. Frontal scalp injury. Electronically signed by: Richard Prescott M.D. 11/26/2018 5:56 PM
--- NOTE | 2018-11-26 18:01 | XRay Report ---
XR hand RT min 3V routine CLINICAL HISTORY: R hand pain after fall COMPARISON: None FINDINGS: Note is made of an acute nondisplaced transverse fracture within the base of the right fif th metacarpal. No additional fractures are present. Carpal bones are intact. There is joint space lalo rowing and osteophytosis at multiple articulations within the right hand. There may be scattered eros ions, most evident at the DIP joint of the right fourth digit. IMPRESSION: Acute nondisplaced transverse fracture within the base of the right fifth metacarpal. Electronically signed by: Williams Goetz M.D. 11/26/2018 6:00 PM
--- NOTE | 2018-11-26 18:03 | CT Scan Report ---
MAXILLOFACIAL CT CT DOSE: 1764.52 mGy.cm HISTORY: Facial injury. trauma TECHNIQUE: Multiaxial CT images of the maxillofacial region were performed and reformatted in the cor onal plane without the use of contrast. A dose lowering technique was utilized adhering to the princ iplGuillermo. COMPARISON: None. FINDINGS: Nondisplaced left nasal bone fracture which extends into the frontal process of the left ma xilla. The mandible, zygomatic arches, lamina papyracea, orbital floors, skull base, pterygoid plates are intact. Frontal scalp soft tissue hematoma. The visualized cervical spine appears intact. The or bits are unremarkable. IMPRESSION: Nondisplaced fracture within the left nasal bone which extends to the frontal process of the left max illa. Electronically signed by: Richard Prescott M.D. 11/26/2018 6:02 PM
--- NOTE | 2018-11-26 18:09 | CT Scan Report ---
CERVICAL SPINE CT CT DOSE: HISTORY: Neck pain. trauma TECHNIQUE: Multiaxial CT images of the cervical spine were performed and reformatted in the sagittal and coronal plane without the use of contrast. A dose lowering technique was utilized adhering to e principles of ALARA. COMPARISON: Cervical spine CT 10/16/2016. FINDINGS: No fractures. No subluxation. Prevertebral soft tissues and the C1-C2 interval are intact. No pneumothorax. Moderate to severe degenerative changes are again noted throughout the cervical spin e. Straightening of the cervical spine. IMPRESSION: No fractures within the cervical spine. Electronically signed by: Richard Prescott M.D. 11/26/2018 6:08 PM
[2018-11-26] MEDS ORDERED: XYLOCAINE 1%/SOD BICARB 20 ML VIAL INFIL ONE (18:13)
[2018-11-26 18:25] LABS: Potassium 4.2 mmol/L (3.5-5.1)
[2018-11-26 18:31] LABS: Beta-Hydroxybutyrate 1.25 mg/dl (0.2-2.81)
[2018-11-26] MEDS ORDERED: NovoLIN-R INSULIN PER UNIT CHARGE SC STA (18:47)
[2018-11-26 19:03] LABS: Appearance Urine Clear (Clear); Bacteria Urine Automated Negative (Negative); Bilirubin Urine Negative (Negative); Blood Urine Trace (Negative); Color Urine Yellow; Epithelial Cell Urine Auto >30 /lpf (0-5); Glucose Urine UA 2+ (Negative); Ketones Urine Negative (Negative); Leukocyte Esterase Urine 1+ (Negative); Nitrite Urine Negative (Negative); Protein Urine Negative (Negative); RBC Urine Automated 0-4 /hpf (0-4); Specific Gravity Urine 1.014 (1.000-1.030); Urobilinogen Urine Negative (Negative); pH Urine 5.5 (4.5-7.5)
--- NOTE | 2018-11-26 19:19 | Emergency Department Note ---
Entered by Velia Loving acting as a scribe for History of Present Illness General Chief complaint: Fall Stated complaint: FALL, MINOR LAC TO LEGS, ABBRASSIONS TO FACE Source: patient History of Present Illness Onset (ago): hour(s) (just prior to arrival) Location: left and right Pain Consistency: + other (episode ) Quality: + other (fall) Associated symptoms: + other (positive room-spinning; positive loss of consciousness; positive right finger pain); no nausea/vomiting The patient is an 88 year old male who presents to the Emergency Room with complaints of an episode of a fall that occurred just prior to arrival. The patient states that he was about to walk outside onto his cement porch, when he turned around and began to feel as though the room was spinning. He states that he fell onto the ground and loss consciousness. The patient denies vomiting He reports right finger pain. The patient denies a history of vertigo. The patient denies taking any blood thinners. He reports that his last tetanus shot was in 2014. Home Medications Home Medications Medication Instructions Recorded Confirmed Type allopurinol 200 mg PO DAILY 11/26/18 11/26/18 History diclofenac sodium 1 % TOPICAL TID PRN 11/26/18 11/26/18 History ferrous sulfate 325 mg PO DAILY 11/26/18 11/26/18 History folic acid 1 mg PO DAILY 11/26/18 11/26/18 History furosemide 80 mg PO BID 11/26/18 11/26/18 History insulin aspart U-100 [Novolog 1 sliding scale dose SUBCUT 11/26/18 11/26/18 History U-100 Insulin aspart] USEASDIRECTD insulin glargine [Basaglar KwikPen 36 unit SUBCUT DAILY 11/26/18 11/26/18 History U-100 Insulin] metolazone 2.5 mg PO DAILY PRN 11/26/18 11/26/18 History metoprolol succinate 12.5 mg PO DAILY 11/26/18 11/26/18 History midodrine 2.5 mg PO BID 11/26/18 11/26/18 History nitroglycerin 0.4 mg SUBLINGUAL UD PRN 11/26/18 11/26/18 History ondansetron HCl 4 mg PO Q6H PRN 11/26/18 11/26/18 History rifaximin [Xifaxan] 550 mg PO BID 11/26/18 11/26/18 History spironolactone 50 mg PO QAM 11/26/18 11/26/18 History Allergies Allergy/AdvReac Type Severity Reaction Status Date / Time propranolol Allergy Unknown Verified 11/26/18 17:55 codeine AdvReac Mild NOTED Verified 11/26/18 17:55 "DOESNT TOLERATE WELL" Past Med/Surg History Medical History Ascites (Chronic) History of bladder cancer (Chronic) Sinoatrial node dysfunction (Chronic) Hypertrophic cardiomyopathy (Chronic) Myelodysplastic syndrome (Chronic) Thrombocytopenia (Chronic) Paroxysmal atrial fibrillation (Chronic) COPD (chronic obstructive pulmonary disease) (Chronic) CKD (chronic kidney disease), stage IV (Chronic) Sleep apnea, obstructive (Chronic) "CPAP" Dyslipidemia (Chronic) DM (diabetes mellitus), type 2 with renal complications (Chronic) Social History Preferred Language: Maori Feels Safe at Home: Yes Smoking Status: Former smoker Review of Systems See HPI for pertinent positives & negatives. and A total of 10 systems reviewed and were otherwise negative Physical Exam Vital Signs Vital Signs - 24 hr 11/26/18 16:39 11/26/18 16:55 11/26/18 17:51 Temperature 36.6 C Temperature Source Oral Sepsis Recent Fever Within 48 Hours No Sepsis Action Taken by Nursing No Action Required Pulse Rate 94 H Pulse Rate [Apical] 77 Respiratory Rate 18 20 Blood Pressure 95/53 L Blood Pressure [Left Arm] 122/67 Blood Pressure Mean 67 Blood Pressure Mean [Left Arm] 85 Pulse Oximetry 99 98 95 Oxygen Delivery Method Room Air Room Air Room Air Vital signs reviewed. General: 88 year old male, in no significant distress. HEENT: No scleral icterus, PERRLA, neck supple. Atraumatic. Cardiovascular: Regular rate and rhythm, no extra sounds. Pulmonary: Clear to auscultation bilaterally, normal work of breathing. Abdomen: Soft, nontender, nondistended, positive bowel sounds. Musculoskeletal: Atraumatic, no peripheral edema. Neurologic: Patient awake alert and oriented x 3, full strength in all 4 e xtremities. Cranial nerves 2 through 12 grossly intact. Skin: Warm, dry, no rash. 4 cm laceration to the right anterior roblero. L shaped 5 cm laceration to the left roblero. Abrasion to the left knee. Right arm with a V shaped skin tear distally about 3 cm. 8 cm of another V shaped skin tear more proximally. 1 cm evulsion injury to right elbow. 2 cm V shaped to upper arm. Smaller 1 cm more proximally. Course Administered Medications Sodium Chloride (Nss 1000ml) 1,000 mls @ 125 mls/hr IV .Q8H ABHISHEK Stop: 12/26/18 16:59 Last Admin: 11/26/18 18:01 Dose: 125 mls/hr Documented by: [id number] Discontinued Medications Sodium Chloride (Nss 1000ml) 500 mls @ 999 mls/hr IV .Q31M ONE Stop: 11/26/18 17:23 Last Infusion: 11/26/18 18:03 Dose: 0 mls/hr Documented by: [id number] Admin: 11/26/18 17:15 Dose: 999 mls/hr Documented by: [id number] Insulin Human Regular (Novolin R U-100 Per Unit) 10 units SC NOW STA Stop: 11/26/18 18:48 Last Admin: 11/26/18 18:54 Dose: 10 units Documented by: [id number] Cosigned by: [id number] Lidocaine HCl (Buffered Lidocaine 1%) 20 ml INFIL NOW ONE Stop: 11/26/18 18:14 Last Admin: 11/26/18 18:37 Dose: 20 ml Documented by: [id number] Medical Decision Making Laboratory Data Result diagrams: 11/26/18 15:00 11/26/18 18:02 Lab Results 11/26/18 11/26/18 11/26/18 Range/Units 15:00 15:00 18:02 WBC 6.97 (4.8-10.8) K/uL RBC 3.87 L (4.7-6.1) M/uL Hgb 11.9 L (14.0-18.0) g/dL Hct 35.1 L (42-52) % MCV 90.7 (80-100) fL MCH 30.7 (25-34) pg MCHC 33.9 (32-36) g/dL RDW Std Deviation 52.4 H (36.4-46.3) fL RDW Coeff of [place] 15.9 H (11.5-14.5) % Plt Count 70 L (130-400) K/uL MPV 11.4 H (7.4-10.4) fL Immature Gran % (Auto) 0.3 % Neut % (Auto) 81.7 % Lymph % (Auto) 5.5 % [place] % (Auto) 10.8 % Eos % (Auto) 1.4 % Baso % (Auto) 0.3 % Immature Gran # (Auto) 0.02 (0.00-0.02) K/uL Neut # (Auto) 5.70 (1.4-6.5) K/uL Lymph # (Auto) 0.38 L (1.2-3.4) K/uL [place] # (Auto) 0.75 H (0.11-0.59) K/uL Eos # (Auto) 0.10 (0-0.5) K/uL Baso # (Auto) 0.02 (0-0.2) K/uL Sodium 128 L (136-145) mmol/L Potassium 4.2 (3.5-5.1) mmol/L Chloride 88 L (98-107) mmol/L Carbon Dioxide 28 (21-32) mmol/L Anion Gap 12.0 H (3-11) BUN 103 H (7-18) mg/dl Creatinine 4.63 H* (0.6-1.4) mg/dl Est Cr Clr Drug Dosing 14.0 ml/min Est GFR ( Amer) 12.2 Est GFR (Non-Af Amer) 10.5 BUN/Creatinine Ratio 22.2 H (10-20) Glucose 397 H* (70-99) mg/dl Calcium 9.3 (8.5-10.1) mg/dl Total Bilirubin 0.8 (0.2-1) mg/dl AST 43 H (15-37) U/L ALT 33 (12-78) U/L Alkaline Phosphatase 89 (45-117) U/L Troponin I 0.062 H* (0-0.045) ng/ml Total Protein 6.9 (6.4-8.2) gm/dl Albumin 2.9 L (3.4-5.0) gm/dl Globulin 4.0 (2.5-4.0) gm/dl Albumin/Globulin Ratio 0.7 L (0.9-2) Beta-Hydroxybutyric Acd 1.25 (0.2-2.81) mg/dl Urine Color Urine Appearance (Clear) Urine pH (4.5-7.5) Ur Specific [place] (1.000-1.030) Urine Protein (Negative) Urine Glucose (UA) (Negative) Urine Ketones (Negative) Urine Blood (Negative) Urine Nitrite (Negative) Urine Bilirubin (Negative) Urine Urobilinogen (Negative) Ur Leukocyte Esterase (Negative) Urine WBC (Auto) (0-5) /hpf Urine RBC (Auto) (0-4) /hpf U Hyaline Cast (Auto) (0-5) /lpf U Epithel Cells (Auto) (0-5) /lpf Urine Bacteria (Auto) (Negative) 11/26/18 11/26/18 Range/Units 18:02 18:20 WBC (4.8-10.8) K/uL RBC (4.7-6.1) M/uL Hgb (14.0-18.0) g/dL Hct (42-52) % MCV (80-100) fL MCH (25-34) pg MCHC (32-36) g/dL RDW Std Deviation (36.4-46.3) fL RDW Coeff of [place] (11.5-14.5) % Plt Count (130-400) K/uL MPV (7.4-10.4) fL Immature Gran % (Auto) % Neut % (Auto) % Lymph % (Auto) % [place] % (Auto) % Eos % (Auto) % Baso % (Auto) % Immature Gran # (Auto) (0.00-0.02) K/uL Neut # (Auto) (1.4-6.5) K/uL Lymph # (Auto) (1.2-3.4) K/uL [place] # (Auto) (0.11-0.59) K/uL Eos # (Auto) (0-0.5) K/uL Baso # (Auto) (0-0.2) K/uL Sodium (136-145) mmol/L Potassium (3.5-5.1) mmol/L Chloride (98-107) mmol/L Carbon Dioxide (21-32) mmol/L Anion Gap (3-11) BUN (7-18) mg/dl Creatinine (0.6-1.4) mg/dl Est Cr Clr Drug Dosing ml/min Est GFR ( Amer) Est GFR (Non-Af Amer) BUN/Creatinine Ratio (10-20) Glucose (70-99) mg/dl Calcium (8.5-10.1) mg/dl Total Bilirubin (0.2-1) mg/dl AST Cancelled (15-37) U/L ALT (12-78) U/L Alkaline Phosphatase (45-117) U/L Troponin I (0-0.045) ng/ml Total Protein (6.4-8.2) gm/dl Albumin (3.4-5.0) gm/dl Globulin (2.5-4.0) gm/dl Albumin/Globulin Ratio (0.9-2) Beta-Hydroxybutyric Acd (0.2-2.81) mg/dl Urine Color Yellow Urine Appearance Clear (Clear) Urine pH 5.5 (4.5-7.5) Ur Specific [place] 1.014 (1.000-1.030) Urine Protein Negative (Negative) Urine Glucose (UA) 2+ H (Negative) Urine Ketones Negative (Negative) Urine Blood Trace H (Negative) Urine Nitrite Negative (Negative) Urine Bilirubin Negative (Negative) Urine Urobilinogen Negative (Negative) Ur Leukocyte Esterase 1+ H (Negative) Urine WBC (Auto) 10-30 H (0-5) /hpf Urine RBC (Auto) 0-4 (0-4) /hpf U Hyaline Cast (Auto) 1-5 (0-5) /lpf U Epithel Cells (Auto) >30 H (0-5) /lpf Urine Bacteria (Auto) Negative (Negative) Discharge Plan Visit Data Chief Complaint: Fall Stated Complaint: FALL, MINOR LAC TO LEGS, ABBRASSIONS TO FACE ED Provider: Catalina Leslie Prescriptions Prescriptions: No Action metolazone 2.5 mg tablet 2.5 mg PO DAILY PRN (Reason: Unknown) RF: 0 ondansetron HCl 4 mg tablet 4 mg PO Q6H PRN (Reason: Nausea) RF: 0 allopurinol 100 mg tablet 200 mg PO DAILY RF: 0 spironolactone 25 mg tablet 50 mg PO QAM RF: 0 furosemide 80 mg tablet 80 mg PO BID RF: 0 Novolog U-100 Insulin aspart 100 unit/mL Solution 1 sliding scale dose SUBCUT USEASDIRECTD RF: 0 ferrous sulfate 325 mg (65 mg iron) Tablet 325 mg PO DAILY RF: 0 nitroglycerin 0.4 mg tablet, sublingual 0.4 mg sublingual UD PRN (Reason: Chest Pain) RF: 0 folic acid 1 mg Tablet 1 mg PO DAILY RF: 0 midodrine 2.5 mg tablet 2.5 mg PO BID RF: 0 metoprolol succinate 25 mg tablet extended release 24 hr 12.5 mg PO DAILY RF: 0 Basaglar KwikPen U-100 Insulin 100 unit/mL (3 mL) Insulin Pen 36 unit SUBCUT DAILY RF: 0 diclofenac sodium 1 % gel 1 % topical TID PRN (Reason: Pain) RF: 0 Xifaxan 550 mg tablet 550 mg PO BID RF: 0 The scribe's documentation has been prepared under my direction and personally reviewed by me in its entirety. I confirm that the note above accurately reflects all work, treatment, procedures, and medical decision making performed by me.
[2018-11-26] MEDS ORDERED: AMPICILLIN/SULBACTAM SOD 3,000 MG in 0.9 % SODIUM CHLORIDE 100 ML IV STA (19:31)
--- NOTE | 2018-11-26 19:51 | Emergency Department Note ---
ED Visit Note EMERGENCY DEPARTMENT PROCEDURE NOTE: I was asked by Dr. Leslie to repair the nasal bridge and left anterior roblero wounds of this 88-year-old male patient. Please refer to their dictation for the complete history, physical exam, and ED course. EMERGENCY DEPARTMENT COURSE: The left lower leg with injury was assessed first. The wound was prepped with Betadine and draped with sterile towels. The wound was anesthetized with 1% plain buffered lidocaine. The 3 cm laceration was irrigated copiously using normal saline solution and direct pressure irrigation. The wound was repaired using 5, 4-0 nylon sutures. The nasal bridge laceration was then repaired. The wound was prepped with Betadine and draped with sterile towels. The wound was anesthetized with 1% plain buffered lidocaine. The 1 cm laceration was irrigated copiously using normal saline solution and direct pressure irrigation. The wound was repaired using 5, 6-0 nylon sutures. Patient tolerated wound repair well. He had several skin tears on the right upper extremity, these were cleansed with saline, then the skin tears were reapproximated using benzoin and Steri-Strips. Skin tear on the right anterior roblero did not require any intervention. .
--- NOTE | 2018-11-26 20:21 | History & Physical Report ---
Date of Service November 26, 2018 Assessment & Plan (1) Fall: Likely secondary to orthostasis Patient hypotensive upon arrival at the ER. ARF on CRI, hyponatremia Recent outpatient diuretic medication changes History orthostatic hypotension on midodrine. Troponin elevation secondary to abnormal kidney function Patient denies chest pain, S OB Traumatic facial fractures Traumatic right finger fracture Secondary to mechanical fall Chronic diastolic heart failure Hx HOCM status post surgery patient on the dry side. SSS sp PPM, paced rhythm Not on anticoagulations due to bleeding risk 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 as per records, COPD, past tobacco abuse, pulmonary status at baseline Chronic anemia secondary to CKD, hemoglobin at baseline cirrhosis secondary to nonalcoholic fatty liver disease, no overt decompensation hx bladder cancer status post surgery, BPH DM2, insulin requiring, reasonable control as of recent outpatient hemoglobin A1c of 7.8 2018 CARLITA on CPAP Medical telemetry given troponin elevation Baseline UA, monitor creatinine response to IVF appropriate to hold home diuretics, home antihypertensives until BP stable Nephrology consult RE ARF on CRI Facilitate midodrine Trend troponin, TTE if with significant progression ENT consultation Re: Nasomaxillary fracture, clearance prior to resumption of home CPAP machine Orthopedics consult RE right finger fracture Wound care consult RE traumatic wounds Trend H&H, transfuse PRBC if hemoglobin less than 8 and/or for symptomatic anemia Basal insulin, ISS BG goal 1 40-1 80, carb count coverage, update hemoglobin A1c PT OT eval Fall precautions DVT prophylaxis. SCDs RE bleeding wounds from acute trauma, thrombocytopenia DNR Patient's daughter requesting updates from providers. Ms. Rupinder Rose, contact #[phone] 12/27 [id number]. History of Present Illness Chief Complaint: Fall Primary Care Provider: Simba Harrell History obtained from patient, family, and records. Patient is a fair historian. Limited history from patient secondary to hearing impairment. Medical history significant for paroxysmal AFib, 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 as per records, hypertension, hyperlipidemia, COPD, hypertrophic cardiomyopathy status post surgery, nonischemic cardiomyopathy (EF 65-70%). cirrhosis secondary to nonalcoholic fatty liver disease, hx SSS sp PPM, hx bladder cancer status post surgery, BPH, DM2, insulin requiring, CARLITA, chronic renal insufficiency, (baseline creatinine of 3s), chronic anemia (baseline hemoglobin of 10-11), Past tobacco abuse Recent confinement July 2017 for ambulatory dysfunction. Patient seen by sas programmer analyst at the clinic 2 weeks ago. Additional diuretic medications given for weight gain. Patient was walking outside the cement porch off his personal-senior care residence when he noted dizziness after he turned around. Patient subsequently fell face down on the floor. Patient denies chest pain, S OB, LOC. Bleeding wo unds noted on the face and extremities. Patient brought to the ER. Initial SBP in the 80s. SBP currently in the 100s after IVF bolus. Medical History as above Surgical History : PPM, bone fixation, myomectomy, urologic procedures, dental surgery, TURP, cholecystectomy Family History : Heart disease Personal/Social history :Past tobacco abuse, no EtOH intake, retired [employer], personal-senior care resident Allergies Allergy/AdvReac Type Severity Reaction Status Date / Time propranolol Allergy Unknown Verified 11/26/18 17:55 codeine AdvReac Mild NOTED Verified 11/26/18 17:55 "DOESNT TOLERATE WELL" Home Medications Home Medications Medication Instructions Recorded Confirmed Type allopurinol 200 mg PO DAILY 11/26/18 11/26/18 History diclofenac sodium 1 % TOPICAL TID PRN 11/26/18 11/26/18 History ferrous sulfate 325 mg PO DAILY 11/26/18 11/26/18 History folic acid 1 mg PO DAILY 11/26/18 11/26/18 History furosemide 80 mg PO BID 11/26/18 11/26/18 History insulin aspart U-100 [Novolog 1 sliding scale dose SUBCUT 11/26/18 11/26/18 History U-100 Insulin aspart] USEASDIRECTD insulin glargine [Basaglar KwikPen 36 unit SUBCUT DAILY 11/26/18 11/26/18 Histor y U-100 Insulin] metolazone 2.5 mg PO DAILY PRN 11/26/18 11/26/18 History metoprolol succinate 12.5 mg PO DAILY 11/26/18 11/26/18 History midodrine 2.5 mg PO BID 11/26/18 11/26/18 History nitroglycerin 0.4 mg SUBLINGUAL UD PRN 11/26/18 11/26/18 History ondansetron HCl 4 mg PO Q6H PRN 11/26/18 11/26/18 History rifaximin [Xifaxan] 550 mg PO BID 11/26/18 11/26/18 History spironolactone 50 mg PO QAM 11/26/18 11/26/18 History Past Med/Surg History Medical History Ascites (Chronic) History of bladder cancer (Chronic) Sinoatrial node dysfunction (Chronic) Hypertrophic cardiomyopathy (Chronic) Myelodysplastic syndrome (Chronic) Thrombocytopenia (Chronic) Paroxysmal atrial fibrillation (Chronic) COPD (chronic obstructive pulmonary disease) (Chronic) CKD (chronic kidney disease), stage IV (Chronic) Sleep apnea, obstructive (Chronic) "CPAP" Dyslipidemia (Chronic) DM (diabetes mellitus), type 2 with renal complications (Chronic) Social History Preferred Language: Slovak Feels Safe at Home: Yes Smoking Status: Former smoker Review of Systems Review of Systems: Somewhat limited secondary to hearing impairment Physical Exam Physical Exam: GENERAL: Comfortable, pleasant, obese, no respiratory distress SKIN: Pallor , warm HEENT: Periorbital ecchymosis right, pale palpebral conjunctivae, wound over right frontal area, dried blood over the face, moist buccal mucosa NECK : Supple, short, no tenderness CHEST : Decreased breath sounds , no tenderness HEART : RRR, systolic murmurs ABDOMEN: Some distention, nontender EXTREMITIES : Contusion/ecchymoses over the extremities, open wound on the LLE, swelling over right hand NEUROLOGIC : Coherent, hard of hearing, no facial asymmetry, gait and stance not assessed Results & Data Vital Signs (Past 12 Hours) Vital Signs Temp Pulse Pulse Resp BP BP Pulse Ox 11/26/18 19:52 70 18 101/52 L 98 11/26/18 17:51 77 20 122/67 95 11/26/18 16:55 98 11/26/18 16:39 36.6 C 94 H 18 95/53 L 99 Laboratory Results Laboratory Results WBC 6.97 K/uL (4.8-10.8) 11/26/18 15:00 RBC 3.87 M/uL (4.7-6.1) L 11/26/18 15:00 Hgb 11.9 g/dL (14.0-18.0) L 11/26/18 15:00 Hct 35.1 % (42-52) L 11/26/18 15:00 MCV 90.7 fL (80-100) 11/26/18 15:00 MCH 30.7 pg (25-34) 11/26/18 15:00 MCHC 33.9 g/dL (32-36) 11/26/18 15:00 RDW Std Deviation 52.4 fL (36.4-46.3) H 11/26/18 15:00 RDW Coeff of [place] 15.9 % (11.5-14.5) H 11/26/18 15:00 Plt Count 70 K/uL (130-400) L 11/26/18 15:00 MPV 11.4 fL (7.4-10.4) H 11/26/18 15:00 Immature Gran % (Auto) 0.3 % 11/26/18 15:00 Neut % (Auto) 81.7 % 11/26/18 15:00 Lymph % (Auto) 5.5 % 11/26/18 15:00 Johnson % (Auto) 10.8 % 11/26/18 15:00 Eos % (Auto) 1.4 % 11/26/18 15:00 Baso % (Auto) 0.3 % 11/26/18 15:00 Immature Gran # (Auto) 0.02 K/uL (0.00-0.02) 11/26/18 15:00 Neut # (Auto) 5.70 K/uL (1.4-6.5) 11/26/18 15:00 Lymph # (Auto) 0.38 K/uL (1.2-3.4) L 11/26/18 15:00 Johnson # (Auto) 0.75 K/uL (0.11-0.59) H 11/26/18 15:00 Eos # (Auto) 0.10 K/uL (0-0.5) 11/26/18 15:00 Baso # (Auto) 0.02 K/uL (0-0.2) 11/26/18 15:00 Sodium 128 mmol/L (136-145) L 11/26/18 15:00 Potassium 4.2 mmol/L (3.5-5.1) 11/26/18 18:02 Chloride 88 mmol/L (98-107) L 11/26/18 15:00 Carbon Dioxide 28 mmol/L (21-32) 11/26/18 15:00 Anion Gap 12.0 (3-11) H 11/26/18 15:00 BUN 103 mg/dl (7-18) H 11/26/18 15:00 Creatinine 4.63 mg/dl (0.6-1.4) H* 11/26/18 15:00 Est Cr Clr Drug Dosing 14.0 ml/min 11/26/18 15:00 Est GFR ( Amer) 12.2 11/26/18 15:00 Est GFR (Non-Af Amer) 10.5 11/26/18 15:00 BUN/Creatinine Ratio 22.2 (10-20) H 11/26/18 15:00 Glucose 397 mg/dl (70-99) H* 11/26/18 15:00 Calcium 9.3 mg/dl (8.5-10.1) 11/26/18 15:00 Total Bilirubin 0.8 mg/dl (0.2-1) 11/26/18 15:00 AST 43 U/L (15-37) H 11/26/18 18:02 AST Cancelled 11/26/18 18:02 ALT 33 U/L (12-78) 11/26/18 15:00 Alkaline Phosphatase 89 U/L (45-117) 11/26/18 15:00 Troponin I 0.062 ng/ml (0-0.045) H* 11/26/18 15:00 Total Protein 6.9 gm/dl (6.4-8.2) 11/26/18 15:00 Albumin 2.9 gm/dl (3.4-5.0) L 11/26/18 15:00 Globulin 4.0 gm/dl (2.5-4.0) 11/26/18 15:00 Albumin/Globulin Ratio 0.7 (0.9-2) L 11/26/18 15:00 Beta-Hydroxybutyric Acd 1.25 mg/dl (0.2-2.81) 11/26/18 18:02 Urine Color Yellow 11/26/18 18:20 Urine Appearance Clear (Clear) 11/26/18 18:20 Urine pH 5.5 (4.5-7.5) 11/26/18 18:20 Ur Specific [place] 1.014 (1.000-1.030) 11/26/18 18:20 Urine Protein Negative (Negative) 11/26/18 18:20 Urine Glucose (UA) 2+ (Negative) H 11/26/18 18:20 Urine Ketones Negative (Negative) 11/26/18 18:20 Urine Blood Trace (Negative) H 11/26/18 18:20 Urine Nitrite Negative (Negative) 11/26/18 18:20 Urine Bilirubin Negative (Negative) 11/26/18 18:20 Urine Urobilinogen Negative (Negative) 11/26/18 18:20 Ur Leukocyte Esterase 1+ (Negative) H 11/26/18 18:20 Urine WBC (Auto) 10-30 /hpf (0-5) H 11/26/18 18:20 Urine RBC (Auto) 0-4 /hpf (0-4) 11/26/18 18:20 U Hyaline Cast (Auto) 1-5 /lpf (0-5) 11/26/18 18:20 U Epithel Cells (Auto) >30 /lpf (0-5) H 11/26/18 18:20 Urine Bacteria (Auto) Negative (Negative) 11/26/18 18:[address] head: No acute intracranial abnormality. Frontal scalp injury. CT cervical spine: No fractures CT face: Nondisplaced fracture within the left nasal bone which extends to the frontal process of the left maxilla. Right hand x-ray: Acute nondisplaced transverse fracture within the base of the right fifth metacarpal. Chest x-ray: No acute cardiopulmonary findings. No change in appearance of the chest. EKG as per my interpretation rate 75, paced rhythm
[2018-11-26] MEDS ORDERED: LANTUS PER UNIT CHARGE SQ STA (20:25)
[2018-11-26] MEDS: MIDODRINE HCL 2.5 MG TAB PO SCH ×2 (20:43→21:00)
[2018-11-26 20:51] LABS: INR 1.2 (0.9-1.1); Partial Thromboplastin Time 27.9 Seconds (21.0-31.0)
[2018-11-26 20:56] LABS: BUN Creatinine Ratio 22.4 (10-20); Creatinine Clr Calc Pharmacy 14.5 ml/min; Est GFR (African American) 12.7; Est GFR (Non-African American) 10.9; Potassium 4.5 mmol/L (3.5-5.1); Troponin I 0.107 ng/ml (0-0.045)
[2018-11-26] MEDS ORDERED: ALBUMIN 25% 50 ML IV ONE ×2 (21:09→22:30)
[2018-11-26 21:11] LABS: Beta-Hydroxybutyrate 1.3 mg/dl (0.2-2.81)
--- NOTE | 2018-11-26 21:26 | XRay Report ---
XR chest 1V portable CLINICAL HISTORY: fall COMPARISON STUDY: Chest radiograph August 17, 2017. FINDINGS: Dual lead left subclavian pacemaker and median sternotomy wires are noted. Moderate cardiom egaly is unchanged. There is no evidence for pulmonary edema. There is no pneumothorax or pleural eff usion. There is no consolidation. Appearance of the chest is unchanged. IMPRESSION: No acute cardiopulmonary findings. No change in appearance of the chest. Electronically signed by: Williams Goetz M.D. 11/26/2018 9:24 PM
[2018-11-26] MEDS ORDERED: PROMETHAZINE HCL 12.5 MG in SODIUM CHLORIDE 0.9% 50 ML IV PRN (21:55)
[2018-11-26] MEDS ORDERED: NITROGLYCERIN SL 0.4 MG/TAB TAB SL PRN (21:55)
[2018-11-26] MEDS ORDERED: INSULIN GLARGINE SOLOSTAR 100 UNITS/ML 3 ML PEN SQ SCH (21:55)
[2018-11-26] MEDS ORDERED: GLUCOSE 10 TABS/TUBE PO PRN (21:55)
[2018-11-26] MEDS ORDERED: GLUCOSE 40% GEL 15 GM TUBE PO PRN (21:55)
[2018-11-26] MEDS ORDERED: INSULIN ASPART 100 UNITS/ML 3 ML PEN SC SCH (21:55)
[2018-11-26] MEDS ORDERED: CARBOHYDRATES FOR HYPOGLYCEMIA PO PRN (21:55)
[2018-11-26] MEDS ORDERED: DEXTROSE 50% 50 ML SYRINGE IV PRN (21:55)
[2018-11-26] MEDS ORDERED: GLUCAGON FOR INJ 1 MG VIAL SQ PRN (21:55)
[2018-11-26] MEDS ORDERED: INSULIN GLARGINE SOLOSTAR 100 UNITS/ML 3 ML PEN SQ STA (21:58)
[2018-11-26] MEDS: RIFAXIMIN 550 MG TABLET PO SCH (22:46)
[2018-11-27] MEDS: OXYCODONE HCL IR 5 MG TAB (IMMEDIATE RELEASE) PO PRN ×2 (00:06→23:35)
[2018-11-27 00:53] LABS: Troponin I 0.112 ng/ml (0-0.045)
[2018-11-27] MEDS ORDERED: SODIUM CHLORIDE 0.9% 500 ML IV ONE (01:06)
[2018-11-27] MEDS ORDERED: ALBUMIN 25% 50 ML IV ONE (02:00)
[2018-11-27 03:59] LABS: Hematocrit (blood only) 29.2 % (42-52); Mean Corpuscular Hgb Conc 34.2 g/dL (32-36); Mean Corpuscular Volume 92.4 fL (80-100); RDW Coefficient of Variation 15.6 % (11.5-14.5); RDW Standard Deviation 52.6 fL (36.4-46.3); Red Blood Count 3.16 M/uL (4.7-6.1); White Blood Count 4.91 K/uL (4.8-10.8)
[2018-11-27 04:01] LABS: Mean Platelet Volume 11.1 fL (7.4-10.4); Platelet Count 45 K/uL (130-400)
[2018-11-27 04:31] LABS: Basophils # (auto) 0.01 K/uL (0-0.2); Basophils % (auto) 0.2 %; Immature Granulocytes # (auto) 0.01 K/uL (0.00-0.02); Immature Granulocytes % (auto) 0.2 %; Lymphocytes # (auto) 0.31 K/uL (1.2-3.4); Lymphocytes % (auto) 6.3 %; Monocytes # (auto) 0.56 K/uL (0.11-0.59); Monocytes % (auto) 11.4 %; Neutrophils # (auto) 3.92 K/uL (1.4-6.5); Neutrophils % (auto) 79.9 %; RBC Morphology Unremarkable
[2018-11-27 04:45] LABS: BUN Creatinine Ratio 22.4 (10-20); Creatinine Clr Calc Pharmacy 15.5 ml/min; Est GFR (African American) 13.8; Est GFR (Non-African American) 11.9; Troponin I 0.117 ng/ml (0-0.045)
[2018-11-27] MEDS ORDERED: INSULIN GLARGINE SOLOSTAR 100 UNITS/ML 3 ML PEN SQ STA ×3 (04:49→21:09)
[2018-11-27 05:00] LABS: Beta-Hydroxybutyrate 1.1 mg/dl (0.2-2.81)
[2018-11-27] MEDS ORDERED: NSS + 20MEQ KCL 20 MEQ/1,000 ML BAG IV ONE (05:01)
[2018-11-27 05:07] LABS: Potassium 3.8 mmol/L (3.5-5.1)
[2018-11-27] MEDS: INSULIN ASPART 100 UNITS/ML 3 ML PEN SC SCH ×5 (05:08→21:18)
[2018-11-27] MEDS: MIDODRINE HCL 2.5 MG TAB PO SCH ×2 (05:50→20:40)
[2018-11-27] MEDS ORDERED: POTASSIUM CHLORIDE 20 MEQ TABCR PO STA (06:14)
[2018-11-27 06:23] LABS: Bilirubin Direct 0.2 mg/dl (0-0.2); Bilirubin,Total 0.8 mg/dl (0.2-1); Total Protein 6.1 gm/dl (6.4-8.2)
[2018-11-27 06:47] LABS: Estimated Average Glucose 212 mg/dl
[2018-11-27] MEDS: FERROUS SULFATE 325 MG TAB PO SCH (08:37)
[2018-11-27] MEDS: FOLIC ACID 1 MG TAB PO SCH (08:38)
[2018-11-27] MEDS: RIFAXIMIN 550 MG TABLET PO SCH ×2 (08:38→20:40)
[2018-11-27] MEDS: ALLOPURINOL 100 MG TAB PO SCH (08:39)
[2018-11-27] MEDS ORDERED: NSS + 20MEQ KCL 20 MEQ/1,000 ML BAG IV SCH (10:15)
[2018-11-27] MEDS: ACETAMINOPHEN 325 MG TAB PO PRN (11:02)
--- NOTE | 2018-11-27 12:01 | Hospitalist Progress Note ---
Date of Service November 27, 2018 Assessment & Plan (1) Hypotension: Pt presented s/p fall secondary to dizziness on 11/26/18. Probable secondary to orthostatic hypotension. -Pt on chronic midodrine -Last week nephrology had changed medications secondary to weight gain - Lasix was increased from 80mg BID to 120mg BID x 14 days. Metolazone increased from 2.5mg prn>3lb weight gain in 48hrs to 2.5mg daily x 14 days. Midodrine increased from 2.5mg BID to 5mg BID x 14 days -Today BP: 97/59, 90/59 -Obtain orthostatic vital signs -On NSS at 40ml/hr. Nephrology recommends to increase to 60ml/hr x 1L -Lasix, spironolactone, metolazone currently on hold -Monitor volume status closely -Nephrology consult (2) Fall: S/P fall on 11/26/[address] In ER had negative CT head, CT c-spine no fracture -PT/OT eval (3) Fracture of fifth metacarpal bone of right hand: Xray R Hand: Acute nondisplaced transverse fracture within the base of the right fifth metacarpal. -Pt in wrist splint -Ortho consult, appreciate recommendations * Can continue with cock up wrist splint until the skin tears heal and then would consider whether to place into a short arm cast. * [place] can [place] [facility] [place] repeat xrays * Ice/elevate for swelling * No lifting with that arm (4) Left knee pain: C/O Left anterior knee pain with ROM today -Pending L knee xray (5) Facial fracture: CT FACE: Nondisplaced fracture within the left nasal bone which extends to the frontal process of the left maxilla. -ENT consult (6) Laceration: Multiple abrasions and skin tears with steri strips in place to extremities L leg with wound with sutures in place Nasal bridge with wound with sutures in place -Keep areas clean and dry -No current signs of infection (7) CKD (chronic kidney disease), stage IV: CKD IV-V Cr: 4.17. Was 4.6 on 11/26/18. 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 H/O ascites, encephalopathy, esophageal varices -Continue rifaximin -Lasix, spironolactone, Metolazone currently on hold (9) Diabetes mellitus, type II: A1c: 9.0 -Continue Lantus, Novolog sliding scale per protocol, parameters tightened (10) Sick sinus syndrome: (11) Hypertrophic cardiomyopathy: S/P pacemaker -Paced rhythm (12) Paroxysmal atrial fibrillation: Not on anticoagulant secondary to thrombocytopenia -Continue metoprolol with holding parameters (13) Sleep apnea, obstructive: -CPAP on hold secondary to facial injuries, ENT consulted for assistance when can resume (14) Myelodysplastic syndrome: (15) Thrombocytopenia: (16) Anemia: Chronic anemia probable secondary to CKD, MDS Hgb: 10.0. (Baseline 10-12) Plt: 45 (baseline in 50's) DVT Prophylaxis -SCDs secondary to thrombocytopenia Pt was seen and care coordinated with Dr Avelar. See addendum Supervising Physician Co-Signing Physician Notes Pt was seen and examined. Agreed with Lisset CAMPBELL exam, assessment and plan. Lying in bed with no distress. Pt said that he does have pain if he tries to sit on the chair. Denies any chest pain, palpitation and SOB. Ortho saw him today and recommended no surgical intervention for the nondisplaced transverse fracture within the base of the right fifth metacarpal that was seen on hand xray. Will continue wrist splint. Follow up with Ortho in 7-10 days with follow up xray. Continue gentle IVF for the elevating creatinine. Will monitor BMP. ENT consult pending. Pt uses a CPAP at night, if unable to use it due to pain from the nondisplaced fracture within the left nasal bone, will advise the nurse to use oxygen supplement at night until ok by ENT to use the CPAP. Fall precaution and PT/OT. Continue monitor closely. Please refer to Lisset CAMPBELL documentation for other problems. MD Rosio Subjective Pt seen and examined. Sitting up in bedside chair Pt reports some left anterior knee pain today, aggravated with ROM. Denies any [place], facial pain. Denies right finger/hand/wrist pain. Denies dizziness today. Reports has ambulated to bedside chair only this morning. Denies fever/chills, N/V/D/C, neck pain, CP, SOB, orthopnea, palpitations, cough, abdominal pain, par esthesias, extremity edema, rashes, urinary symptoms. Physical Exam Physical Exam: General: no acute distress, WDWN Head: normocephalic, Face: +ecchymosis bilateral periorbital, +ecchymosis forehead, +abrasion forehead Eyes: PERRL, EOM's intact, conjunctiva non-injected, anicteric ENT: normal inspection external ears, external nose with laceration with sutures in place and ecchymosis, mucous membranes moist Neck: supple, trachea midline, non-tender, ROM intact Lungs: clear, no respiratory distress, no wheezing/rhonchi/rales CV: RRR, systolic murmur, 1+ pretibial edema Abd: normal BS, soft, non-tender Ext: RUE: +multiple skin tears to right arm with steri-strips in place with surrounding ecchymosis, wrist brace intact to right wrist, Right hand with edema and ecchymosis, ROM right fingers intact Lower extremities with abrasions, L leg with wound with sutures in place Neuro: alert, oriented to person, place, no focal deficits noted, normal affect Skin: warm, dry, abrasions, lacerations as above Results & Data Vital Signs (Past 12 Hours) Vital Signs Temp Pulse Resp BP Pulse Ox 11/27/18 11:48 36.7 C 71 20 92/59 L 99 11/27/18 07:22 36.6 C 62 18 90/59 L 95 11/27/18 04:59 36.7 C 64 20 97/59 L 97 Laboratory Results Short CBC 11/26/18 11/26/18 11/27/18 Range/Units 15:00 22:29 03:46 WBC 6.97 4.91 (4.8-10.8) K/uL Hgb 11.9 L 10.0 L (14.0-18.0) g/dL Hct 35.1 L 29.2 L (42-52) % Plt Count 70 L 45 L (130-400) K/uL POC Glucose 318 H* (70-99) 11/27/18 11/27/18 Range/Units 07:31 11:05 WBC (4.8-10.8) K/uL Hgb (14.0-18.0) g/dL Hct (42-52) % Plt Count (130-400) K/uL POC Glucose 264 H 279 H (70-99) BMP 11/26/18 11/26/18 11/26/18 15:00 18:02 20:16 Sodium 128 L 130 L Potassium 4.2 4.5 Chloride 88 L 91 L Carbon Dioxide 28 28 BUN 103 H 100 H Creatinine 4.63 H* 4.47 H Glucose 397 H* 349 H* Calcium 9.3 9.0 11/27/18 11/27/18 00:10 03:46 Sodium 133 L 132 L Potassium 3.8 D Chloride 93 L Carbon Dioxide 29 BUN 94 H Creatinine 4.17 H D Glucose 316 H* Calcium 8.0 L Cardiac Enzymes 11/26/18 11/26/18 11/26/18 Range/Units 15:00 20:16 20:16 Total Creatine Kinase 145 (39-308) U/L Troponin I 0.062 H* Cancelled 0.107 H* (0-0.045) ng/ml 11/27/18 11/27/18 Range/Units 00:10 03:46 Total Creatine Kinase (39-308) U/L Troponin I 0.112 H* 0.117 H* (0-0.045) ng/ml Liver Function 11/26/18 11/26/18 11/26/18 Range/Units 15:00 18:02 18:02 Total Bilirubin 0.8 (0.2-1) mg/dl Direct Bilirubin (0-0.2) mg/dl AST 43 H Cancelled (15-37) U/L ALT 33 (12-78) U/L Alkaline Phosphatase 89 (45-117) U/L Albumin 2.9 L (3.4-5.0) gm/dl 11/27/18 Range/Units 05:39 Total Bilirubin 0.8 (0.2-1) mg/dl Direct Bilirubin 0.2 (0-0.2) mg/dl AST 31 (15-37) U/L ALT 24 (12-78) U/L Alkaline Phosphatase 70 (45-117) U/L Albumin 3.0 L (3.4-5.0) gm/dl Urine 11/26/18 Range/Units 18:20 Urine Color Yellow Urine Appearance Clear (Clear) Urine pH 5.5 (4.5-7.5) Ur Specific [place] 1.014 (1.000-1.030) Urine Protein Negative (Negative) Urine Glucose (UA) 2+ H (Negative)
--- NOTE | 2018-11-27 12:01 | Orthopedic Consultation ---
Date of Consultation November 27, 2018 Assessment & Plan (1) Fracture of fifth metacarpal bone of right hand: images reviewed and reveal a non displaced fracture involving the base of the right 5th metacarpal, he has also sustained multiple skin tears which have been addressed and currently treated with steri strips, he seems comfortable in the cock up wrist splint, we can continue with this until the skin tears heal and then would consider whether to place into a short arm cast or remain in the splint. He can follow up in the office at [facility] [place] in 7-10 days for repeat x-rays, cont to ice/elevate for swelling, can wiggle the fingers as tolerated, no lifting with that arm. Dr Artis also in to exam patient and agrees with above treatment plan. History of Present Illness Reason for Consultation: 5th metacarpal fracture right hand Attending Physician: Reji Avelar MD History of Present Illness Airel is an 88 year old male that we have been consulted on regarding injury to his right hand that occurred while he was walking outside on the porch off his personal-shelter, he noted dizziness after he turned around and he subsequently fell face down on the floor. he has sustained multiple skin tears to the arm as well and cuts/abrasion to the face which have already been addressed. he is an 88 year old right hand dominant male, he currently denies any other joint pain or injuries. Allergies Allergy/AdvReac Type Severity Reaction Status Date / Time propranolol Allergy Unknown Verified 11/26/18 17:55 codeine AdvReac Mild NOTED Verified 11/26/18 17:55 "DOESNT TOLERATE WELL" Home Medications Home Medications Medication Instructions Recorded Confirmed Type allopurinol 200 mg PO DAILY 11/26/18 11/26/18 History diclofenac sodium 1 % TOPICAL TID PRN 11/26/18 11/26/18 History ferrous sulfate 325 mg PO DAILY 11/26/18 11/26/18 History folic acid 1 mg PO DAILY 11/26/18 11/26/18 History furosemide 80 mg PO BID 11/26/18 11/26/18 History insulin aspart U-100 [Novolog 1 sliding scale dose SUBCUT 11/26/18 11/26/18 History U-100 Insulin aspart] USEASDIRECTD insulin glargine [Basaglar KwikPen 36 unit SUBCUT DAILY 11/26/18 11/26/18 History U-100 Insulin] metolazone 2.5 mg PO DAILY PRN 11/26/18 11/26/18 History metoprolol succinate 12.5 mg PO DAILY 11/26/18 11/26/18 History midodrine 2.5 mg PO BID 11/26/18 11/26/18 History nitroglycerin 0.4 mg SUBLINGUAL UD PRN 11/26/18 11/26/18 History ondansetron HCl 4 mg PO Q6H PRN 11/26/18 11/26/18 History rifaximin [Xifaxan] 550 mg PO BID 11/26/18 11/26/18 History spironolactone 50 mg PO QAM 11/26/18 11/26/18 History Patient History Medical History Ascites (Chronic) History of bladder cancer (Chronic) Sinoatrial node dysfunction (Chronic) Hypertrophic cardiomyopathy (Chronic) Myelodysplastic syndrome (Chronic) Thrombocytopenia (Chronic) Paroxysmal atrial fibrillation (Chronic) COPD (chronic obstructive pulmonary disease) (Chronic) CKD (chronic kidney disease), stage IV (Chronic) Sleep apnea, obstructive (Chronic) "CPAP" Dyslipidemia (Chronic) DM (diabetes mellitus), type 2 with renal complications (Chronic) Social History Preferred Language: Vietnamese Communication Ability: Effective Revenue Manager Required: No Beliefs That Will Affect Care: None Current Living Situation: Personal Care Facility Feels Safe at Home: Yes Safety Concerns: Feels Safe At This Time Smoking Status: Former smoker Hx Alcohol Use: No Hx Substance Use: No Review of Systems Cardiovascular: no chest pain Gastrointestinal: no abdominal pain, no nausea and no vomiting Musculoskeletal: as per Subjective / HPI Physical Exam Physical Exam: Vital Signs Temp Pulse Pulse Pulse Resp BP BP 11/27/18 11:48 36.7 C 71 20 92/59 L 11/27/18 07:22 36.6 C 62 18 90/59 L 11/27/18 04:59 36.7 C 64 20 97/59 L 11/26/18 22:47 36.9 C 67 16 113/69 11/26/18 21:35 63 18 112/66 11/26/18 20:34 75 18 100/68 11/26/18 19:52 70 18 101/52 L 11/26/18 17:51 77 20 122/67 11/26/18 16:55 11/26/18 16:39 36.6 C 94 H 18 95/53 L Pulse Ox 11/27/18 11:48 99 11/27/18 07:22 95 11/27/18 04:59 97 11/26/18 22:47 100 11/26/18 21:35 99 11/26/18 20:34 99 11/26/18 19:52 98 11/26/18 17:51 95 11/26/18 16:55 98 11/26/18 16:39 99 Intake and Output 11/26/18 11/27/18 11/27/18 22:59 06:59 14:59 Intake Total 608 / 1358 750 / 1358 Output Total 1175 / 1175 Balance 608 / 183 -425 / 183 Intake: IV 608 / 1258 650 / 1258 Albumin 25% 50 ml @ 50 mls/hr 150 / 150 IV ONE ONE Rx# :[id number] Unasyn 3,000 m g In Sodium 108 / 108 Chloride 100 m l @ 200 mls/hr IV NOW STA Rx#:[id number] Nss 1000ML 500 ml @ 999 mls/hr 500 / 500 IV .Q31M ONE R x#:[id number] Nss 500 ml @ 5 00 mls/hr IV .Q1H 500 / 500 ONE Rx#:[id number] Oral 100 / 100 Output: Urine 1175 / 1175 Other: Weight 107.5 kg 100.8 kg Constitutional: WD/WN, vitals as above Musculoskeletal: right arm: there are multiple skin tears to right arm with steri-strips in place with surrounding ecchymosis noted, no active bleeding. he has +TTP over the base of the 5th metacarpal, there is no extensor lag, no rotational deformities noted. sensation intact to light touch. radial/medial/ulnar nerves intact; radial pulse +2; some discomfort noted with movement of the digits; Results & Data Vital Signs (Past 12 Hours) Vital Signs Temp Pulse Resp BP Pulse Ox 11/27/18 11:48 36.7 C 71 20 92/59 L 99 11/27/18 07:22 36.6 C 62 18 90/59 L 95 11/27/18 04:59 36.7 C 64 20 97/59 L 97 Diagnostic Findings XR hand RT min 3V routine CLINICAL HISTORY: R hand pain after fall COMPARISON: None FINDINGS: Note is made of an acute nondisplaced transverse fracture within the base of the right fifth metacarpal. No additional fractures are present. Carpal bones are intact. There is joint space narrowing and osteophytosis at multiple articulations within the right hand. There may be scattered erosions, most evident at the DIP joint of the right fourth digit. IMPRESSION: Acute nondisplaced transverse fracture within the base of the right fifth metacarpal.
--- NOTE | 2018-11-27 12:41 | XRay Report ---
LEFT KNEE 2 VIEWS HISTORY: L knee pain, s/p fall yesterday COMPARISON: None. FINDINGS: There is no fracture or dislocation. Moderate cartilage space narrowing within the medial c ompartment of the knee consistent with degenerative change. There is also moderate patellofemoral ost eoarthritis. Trace knee effusion. Mild anterior soft tissue swelling. Vascular calcifications are not ed. No radiopaque foreign bodies. IMPRESSION: 1. No fracture or dislocation within the left knee. 2. Moderate osteoarthritis. 3. Trace knee effusion. Electronically signed by: Richard Prescott M.D. 11/27/2018 12:40 PM
--- NOTE | 2018-11-27 15:32 | Nephrology Consultation ---
Date of Consultation November 27, 2018 Assessment & Plan (1) MAGEN (acute kidney injury): Patient with acute kidney injury on CKD. He has CKD stage IV with baseline creatinine of 3.5. Creatinine up to 4.1. Etiology of worsening renal function likely hemodynamically mediated in setting of hypotension with recent escalation of diuretics. I agree with holding diuretics. Electrolytes are stable. No indication for dialysis at this point. He is receiving IV fluids now but would probably stop after completing the current liter of fluids. Monitor renal function with daily BMP. Avoid nephrotoxins such as NSAIDs and contrast. (2) Hypotension: Likely hemodynamically mediated in setting of diuresis. Blood pressure is improving with IV fluids. We may have to hold metolazone going forward. (3) Fall: Patient with fall likely in setting of hypotension. He also has a history of sick sinus syndrome and this could have been in setting of arrhythmias. Continue monitoring on telemetry. Monitor for orthostasis. He will need physical therapy before discharge. (4) Anemia in CKD (chronic kidney disease): Recent hemoglobin of 10. Will check iron levels. History of Present Illness Reason for Consultation: MAGEN on CKD Requesting Physician: Reji Avelar MD Attending Physician: Reji Avelar MD History of Present Illness This is a 88-year-old male with CKD stage IV and baseline creatinine of 3.5 home of been asked to evaluate for worsening renal function. Past medical history of paroxysmal AFib, 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, hypertension, hyperlipidemia, COPD, hypertrophic cardiomyopathy status post surgery, nonischemic cardiomyopathy, cirrhosis secondary to nonalcoholic fatty liver disease, hx SSS sp PPM, hx bladder cancer status post surgery, BPH, DM2, insulin requiring, CARLITA and chronic anemia (baseline hemoglobin of 10-11). He follows with my colleague Dr. Chong who recently increased his diuretics for worsening edema. Patient reportedly did well and his leg swelling subsided. He now presents after fall face down on the floor and sustaining bruises on the head and right. In the emergency room he was hypotensive with the systolic BP in the 80s. Blood pressures improved to the 90s after IV normal saline infusion. He is complaining of pain in the right hand. He denies any shortness of breath or lower extremity swelling. No urinary symptoms. No NSAID use. Creatinine is up to 4.1 and a BUN of 94. Allergies Allergy/AdvReac Type Severity Reaction Status Date / Time propranolol Allergy Unknown Verified 11/26/18 17:55 codeine AdvReac Mild NOTED Verified 11/26/18 17:55 "DOESNT TOLERATE WELL" Home Medications Home Medications Medication Instructions Recorded Confirmed Type allopurinol 200 mg PO DAILY 11/26/18 11/26/18 History diclofenac sodium 1 % TOPICAL TID PRN 11/26/18 11/26/18 History ferrous sulfate 325 mg PO DAILY 11/26/18 11/26/18 History folic acid 1 mg PO DAILY 11/26/18 11/26/18 History furosemide 80 mg PO BID 11/26/18 11/26/18 History insulin aspart U-100 [Novolog 1 sliding scale dose SUBCUT 11/26/18 11/26/18 History U-100 Insulin aspart] USEASDIRECTD insulin glargine [Basaglar KwikPen 36 unit SUBCUT DAILY 11/26/18 11/26/18 History U-100 Insulin] metolazone 2.5 mg PO DAILY PRN 11/26/18 11/26/18 History metoprolol succinate 12.5 mg PO DAILY 11/26/18 11/26/18 History midodrine 2.5 mg PO BID 11/26/18 11/26/18 History nitroglycerin 0.4 mg SUBLINGUAL UD PRN 11/26/18 11/26/18 History ondansetron HCl 4 mg PO Q6H PRN 11/26/18 11/26/18 History rifaximin [Xifaxan] 550 mg PO BID 11/26/18 11/26/18 History spironolactone 50 mg PO QAM 11/26/18 11/26/18 History Patient History Medical History Ascites (Chronic) History of bladder cancer (Chronic) Sinoatrial node dysfunction (Chronic) Hypertrophic cardiomyopathy (Chronic) Myelodysplastic syndrome (Chronic) Thrombocytopenia (Chronic) Paroxysmal atrial fibrillation (Chronic) COPD (chronic obstructive pulmonary disease) (Chronic) CKD (chronic kidney disease), stage IV (Chronic) Sleep apnea, obstructive (Chronic) "CPAP" Dyslipidemia (Chronic) DM (diabetes mellitus), type 2 with renal complications (Chronic) Social History Preferred Language: Tu[place] Communication Ability: Effective Larry Operator Required: No Beliefs That Will Affect Care: None marital status: Current Living Situation: Personal Care Facility Feels Safe at Home: Yes Safety Concerns: Feels Safe At This Time Smoking Status: Former smoker Hx Alcohol Use: No Hx Substance Use: No Review of Systems Review of Systems: All systems reviewed & are unremarkable except as noted in HPI & below Physical Exam Physical Exam: General exam: Appears comfortable, no acute distress HEENT: Pupils are equal and reactive to light Neck: No JVD, neck is supple trachea is midline Respiratory system: Clear breath sounds bilaterally. Gastrointestinal: Abdomen is soft, non distended, non tender, bowel sounds are present CVS: Regular rate and rhythm. No murmurs, rubs or gallops Musculoskeletal: No joint or muscle tenderness Extremities: Non tender, no edema, peripheral pulses are present. Bruises on the right hand Neuro: Oriented, no tremors, no focal neurological deficits Skin: Bruises on the forehead and right side of the face. No rashes Results & Data Vital Signs (Past 12 Hours) Vital Signs Temp Pulse Pulse Resp BP Pulse Ox 11/27/18 15:01 36.5 C 73 18 95/61 L 98 11/27/18 11:48 36.7 C 71 20 92/59 L 99 11/27/18 08:00 87 11/27/18 07:22 36.6 C 62 18 90/59 L 95 11/27/18 04:59 36.7 C 64 20 97/59 L 97 Laboratory Results Laboratory Results - last 24 hr 11/26/18 11/26/18 11/26/18 15:00 15:00 18:02 WBC 6.97 RBC 3.87 L Hgb 11.9 L Hct 35.1 L MCV 90.7 MCH 30.7 MCHC 33.9 RDW Std Deviation 52.4 H RDW Coeff of [place] 15.9 H Plt Count 70 L MPV 11.4 H Immature Gran % (Auto) 0.3 Neut % (Auto) 81.7 Lymph % (Auto) 5.5 [place] % (Auto) 10.8 Eos % (Auto) 1.4 Baso % (Auto) 0.3 Immature Gran # (Auto) 0.02 Neut # (Auto) 5.70 Lymph # (Auto) 0.38 L [place] # (Auto) 0.75 H Eos # (Auto) 0.10 Baso # (Auto) 0.02 RBC Morphology PT INR APTT PTT Ratio Sodium 128 L Potassium 4.2 Chloride 88 L Carbon Dioxide 28 Anion Gap 12.0 H BUN 103 H Creatinine 4.63 H* Est Cr Clr Drug Dosing 14.0 Est GFR ( Amer) 12.2 Est GFR (Non-Af Amer) 10.5 BUN/Creatinine Ratio 22.2 H Glucose 397 H* POC Glucose Estimat Average Glucose Hemoglobin A1c Osmolality Lactate Calcium 9.3 Magnesium Total Bilirubin 0.8 Direct Bilirubin AST 43 H ALT 33 Alkaline Phosphatase 89 Ammonia Total Creatine Kinase Troponin I 0.062 H* Total Protein 6.9 Albumin 2.9 L Globulin 4.0 Albumin/Globulin Ratio 0.7 L Beta-Hydroxybutyric Acd 1.25 Urine Color Urine Appearance Urine pH Ur Specific [place] Urine Protein Urine Glucose (UA) Urine Ketones Urine Blood Urine Nitrite Urine Bilirubin Urine Urobilinogen Ur Leukocyte Esterase Urine WBC (Auto) Urine RBC (Auto) U Hyaline Cast (Auto) U Epithel Cells (Auto) Urine Bacteria (Auto) Urine Osmolality Ur Random Sodium Blood Type Antibody Screen 11/26/18 11/26/18 11/26/18 18:02 18:20 18:20 WBC RBC Hgb Hct MCV MCH MCHC RDW Std Deviation RDW Coeff of [place] Plt Count MPV Immature Gran % (Auto) Neut % (Auto) Lymph % (Auto) [place] % (Auto) Eos % (Auto) Baso % (Auto) Immature Gran # (Auto) Neut # (Auto) Lymph # (Auto) [place] # (Auto) Eos # (Auto) Baso # (Auto) RBC Morphology PT INR APTT PTT Ratio Sodium Potassium Chloride Carbon Dioxide Anion Gap BUN Creatinine Est Cr Clr Drug Dosing Est GFR ( Amer) Est GFR (Non-Af Amer) BUN/Creatinine Ratio Glucose POC Glucose Estimat Average Glucose Hemoglobin A1c Osmolality Lactate Calcium Magnesium Total Bilirubin Direct Bilirubin AST Cancelled ALT Alkaline Phosphatase Ammonia Total Creatine Kinase Troponin I Total Protein Albumin Globulin Albumin/Globulin Ratio Beta-Hydroxybutyric Acd Urine Color Yellow Urine Appearance Clear Urine pH 5.5 Ur Specific [place] 1.014 Urine Protein Negative Urine Glucose (UA) 2+ H Urine Ketones Negative Urine Blood Trace H Urine Nitrite Negative Urine Bilirubin Negative Urine Urobilinogen Negative Ur Leukocyte Esterase 1+ H Urine WBC (Auto) 10-30 H Urine RBC (Auto) 0-4 U Hyaline Cast (Auto) 1-5 U Epithel Cells (Auto) >30 H Urine Bacteria (Auto) Negative Urine Osmolality 344 L Ur Random Sodium Blood Type Antibody Screen 11/26/18 11/26/18 11/26/18 18:20 20:16 20:16 WBC RBC Hgb Hct MCV MCH MCHC RDW Std Deviation RDW Coeff of [place] Plt Count MPV Immature Gran % (Auto) Neut % (Auto) Lymph % (Auto) [place] % (Auto) Eos % (Auto) Baso % (Auto) Immature Gran # (Auto) Neut # (Auto) Lymph # (Auto) [place] # (Auto) Eos # (Auto) Baso # (Auto) RBC Morphology PT INR APTT PTT Ratio Sodium Potassium Chloride Carbon Dioxide Anion Gap BUN Creatinine Est Cr Clr Drug Dosing Est GFR ( Amer) Est GFR (Non-Af Amer) BUN/Creatinine Ratio Glucose POC Glucose Estimat Average Glucose Hemoglobin A1c Osmolality 320 H Lactate 3.0 H* Calcium Magnesium Total Bilirubin Direct Bilirubin AST ALT Alkaline Phosphatase Ammonia Total Creatine Kinase Troponin I Total Protein Albumin Globulin Albumin/Globulin Ratio Beta-Hydroxybutyric Acd Urine Color Urine Appearance Urine pH Ur Specific [place] Urine Protein Urine Glucose (UA) Urine Ketones Urine Blood Urine Nitrite Urine Bilirubin Urine Urobilinogen Ur Leukocyte Esterase Urine WBC (Auto) Urine RBC (Auto) U Hyaline Cast (Auto) U Epithel Cells (Auto) Urine Bacteria (Auto) Urine Osmolality Ur Random Sodium 83 Blood Type Antibody Screen 11/26/18 11/26/18 11/26/18 20:16 20:16 20:16 WBC RBC Hgb Hct MCV MCH MCHC RDW Std Deviation RDW Coeff of [place] Plt Count MPV Immature Gran % (Auto) Neut % (Auto) Lymph % (Auto) [place] % (Auto) Eos % (Auto) Baso % (Auto) Immature Gran # (Auto) Neut # (Auto) Lymph # (Auto) [place] # (Auto) Eos # (Auto) Baso # (Auto) RBC Morphology PT INR APTT PTT Ratio Sodium 130 L Potassium 4.5 Chloride 91 L Carbon Dioxide 28 Anion Gap 11.0 BUN 100 H Creatinine 4.47 H Est Cr Clr Drug Dosing 14.5 Est GFR ( Amer) 12.7 Est GFR (Non-Af Amer) 10.9 BUN/Creatinine Ratio 22.4 H Glucose 349 H* POC Glucose Estimat Average Glucose Hemoglobin A1c Osmolality Lactate Calcium 9.0 Magnesium Total Bilirubin Direct Bilirubin AST ALT Alkaline Phosphatase Ammonia 46.0 H Total Creatine Kinase 145 Troponin I Cancelled 0.107 H* Total Protein Albumin Globulin Albumin/Globulin Ratio Beta-Hydroxybutyric Acd 1.30 Urine Color Urine Appearance Urine pH Ur Specific [place] Urine Protein Urine Glucose (UA) Urine Ketones Urine Blood Urine Nitrite Urine Bilirubin Urine Urobilinogen Ur Leukocyte Esterase Urine WBC (Auto) Urine RBC (Auto) U Hyaline Cast (Auto) U Epithel Cells (Auto) Urine Bacteria (Auto) Urine Osmolality Ur Random Sodium Blood Type Antibody Screen 11/26/18 11/26/18 11/26/18 20:16 20:23 22:29 WBC RBC Hgb Hct MCV MCH MCHC RDW Std Deviation RDW Coeff of [place] Plt Count MPV Immature Gran % (Auto) Neut % (Auto) Lymph % (Auto) [place] % (Auto) Eos % (Auto) Baso % (Auto) Immature Gran # (Auto) Neut # (Auto) Lymph # (Auto) [place] # (Auto) Eos # (Auto) Baso # (Auto) RBC Morphology PT 12.0 INR 1.2 H APTT 27.9 PTT Ratio 1.0 Sodium Potassium Chloride Carbon Dioxide Anion Gap BUN Creatinine Est Cr Clr Drug Dosing Est GFR ( Amer) Est GFR (Non-Af Amer) BUN/Creatinine Ratio Glucose POC Glucose 318 H* Estimat Average Glucose Hemoglobin A1c Osmolality Lactate Calcium Magnesium 2.6 H Total Bilirubin Direct Bilirubin AST ALT Alkaline Phosphatase Ammonia Total Creatine Kinase Troponin I Total Protein Albumin Globulin Albumin/Globulin Ratio Beta-Hydroxybutyric Acd Urine Color Urine Appearance Urine pH Ur Specific [place] Urine Protein Urine Glucose (UA) Urine Ketones Urine Blood Urine Nitrite Urine Bilirubin Urine Urobilinogen Ur Leukocyte Esterase Urine WBC (Auto) Urine RBC (Auto) U Hyaline Cast (Auto) U Epithel Cells (Auto) Urine Bacteria (Auto) Urine Osmolality Ur Random Sodium Blood Type Antibody Screen 11/27/18 11/27/18 11/27/18 00:10 00:10 03:46 WBC 4.91 RBC 3.16 L Hgb 10.0 L Hct 29.2 L MCV 92.4 MCH 31.6 MCHC 34.2 RDW Std Deviation 52.6 H RDW Coeff of [place] 15.6 H Plt Count 45 L MPV 11.1 H Immature Gran % (Auto) 0.2 Neut % (Auto) 79.9 Lymph % (Auto) 6.3 [place] % (Auto) 11.4 Eos % (Auto) 2.0 Baso % (Auto) 0.2 Immature Gran # (Auto) 0.01 Neut # (Auto) 3.92 Lymph # (Auto) 0.31 L [place] # (Auto) 0.56 Eos # (Auto) 0.10 Baso # (Auto) 0.01 RBC Morphology Unremarkable PT INR APTT PTT Ratio Sodium 133 L Potassium Chloride Carbon Dioxide Anion Gap BUN Creatinine Est Cr Clr Drug Dosing Est GFR ( Amer) Est GFR (Non-Af Amer) BUN/Creatinine Ratio Glucose POC Glucose Estimat Average Glucose Hemoglobin A1c Osmolality Lactate 2.9 H* Calcium Magnesium Total Bilirubin Direct Bilirubin AST ALT Alkaline Phosphatase Ammonia Total Creatine Kinase Troponin I 0.112 H* Total Protein Albumin Globulin Albumin/Globulin Ratio Beta-Hydroxybutyric Acd Urine Color Urine Appearance Urine pH Ur Specific [place] Urine Protein Urine Glucose (UA) Urine Ketones Urine Blood Urine Nitrite Urine Bilirubin Urine Urobilinogen Ur Leukocyte Esterase Urine WBC (Auto) Urine RBC (Auto) U Hyaline Cast (Auto) U Epithel Cells (Auto) Urine Bacteria (Auto) Urine Osmolality Ur Random Sodium Blood Type Antibody Screen 11/27/18 11/27/18 11/27/18 03:46 03:46 05:39 WBC RBC Hgb Hct MCV MCH MCHC RDW Std Deviation RDW Coeff of [place] Plt Count MPV Immature Gran % (Auto) Neut % (Auto) Lymph % (Auto) [place] % (Auto) Eos % (Auto) Baso % (Auto) Immature Gran # (Auto) Neut # (Auto) Lymph # (Auto) [place] # (Auto) Eos # (Auto) Baso # (Auto) RBC Morphology PT INR APTT PTT Ratio Sodium 132 L Potassium 3.8 D Chloride 93 L Carbon Dioxide 29 Anion Gap 10.0 BUN 94 H Creatinine 4.17 H D Est Cr Clr Drug Dosing 15.5 Est GFR ( Amer) 13.8 Est GFR (Non-Af Amer) 11.9 BUN/Creatinine Ratio 22.4 H Glucose 316 H* POC Glucose Estimat Average Glucose Hemoglobin A1c Osmolality Lactate 1.9 Calcium 8.0 L Magnesium Total Bilirubin Direct Bilirubin AST ALT Alkaline Phosphatase Ammonia Total Creatine Kinase Troponin I 0.117 H* Total Protein Albumin Globulin Albumin/Globulin Ratio Beta-Hydroxybutyric Acd 1.10 Urine Color Urine Appearance Urine pH Ur Specific [place] Urine Protein Urine Glucose (UA) Urine Ketones Urine Blood Urine Nitrite Urine Bilirubin Urine Urobilinogen Ur Leukocyte Esterase Urine WBC (Auto) Urine RBC (Auto) U Hyaline Cast (Auto) U Epithel Cells (Auto) Urine Bacteria (Auto) Urine Osmolality Ur Random Sodium Blood Type O Positive Antibody Screen NEGATIVE 11/27/18 11/27/18 11/27/18 05:39 05:39 07:31 WBC RBC Hgb Hct MCV MCH MCHC RDW Std Deviation RDW Coeff of [place] Plt Count MPV Immature Gran % (Auto) Neut % (Auto) Lymph % (Auto) [place] % (Auto) Eos % (Auto) Baso % (Auto) Immature Gran # (Auto) Neut # (Auto) Lymph # (Auto) [place] # (Auto) Eos # (Auto) Baso # (Auto) RBC Morphology PT INR APTT PTT Ratio Sodium Potassium Chloride Carbon Dioxide Anion Gap BUN Creatinine Est Cr Clr Drug Dosing Est GFR ( Amer) Est GFR (Non-Af Amer) BUN/Creatinine Ratio Glucose POC Glucose 264 H Estimat Average Glucose 212 Hemoglobin A1c 9.0 H Osmolality Lactate Calcium Magnesium Total Bilirubin 0.8 Direct Bilirubin 0.2 AST 31 ALT 24 Alkaline Phosphatase 70 Ammonia Total Creatine Kinase Troponin I Total Protein 6.1 L Albumin 3.0 L Globulin Albumin/Globulin Ratio Beta-Hydroxybutyric Acd Urine Color Urine Appearance Urine pH Ur Specific [place] Urine Protein Urine Glucose (UA) Urine Ketones Urine Blood Urine Nitrite Urine Bilirubin Urine Urobilinogen Ur Leukocyte Esterase Urine WBC (Auto) Urine RBC (Auto) U Hyaline Cast (Auto) U Epithel Cells (Auto) Urine Bacteria (Auto) Urine Osmolality Ur Random Sodium Blood Type Antibody Screen 11/27/18 11:05 WBC RBC Hgb Hct MCV MCH MCHC RDW Std Deviation RDW Coeff of [place] Plt Count MPV Immature Gran % (Auto) Neut % (Auto) Lymph % (Auto) [place] % (Auto) Eos % (Auto) Baso % (Auto) Immature Gran # (Auto) Neut # (Auto) Lymph # (Auto) [place] # (Auto) Eos # (Auto) Baso # (Auto) RBC Morphology PT INR APTT PTT Ratio Sodium Potassium Chloride Carbon Dioxide Anion Gap BUN Creatinine Est Cr Clr Drug Dosing Est GFR ( Amer) Est GFR (Non-Af Amer) BUN/Creatinine Ratio Glucose POC Glucose 279 H Estimat Average Glucose Hemoglobin A1c Osmolality Lactate Calcium Magnesium Total Bilirubin Direct Bilirubin AST ALT Alkaline Phosphatase Ammonia Total Creatine Kinase Troponin I Total Protein Albumin Globulin Albumin/Globulin Ratio Beta-Hydroxybutyric Acd Urine Color Urine Appearance Urine pH Ur Specific [place] Urine Protein Urine Glucose (UA) Urine Ketones Urine Blood Urine Nitrite Urine Bilirubin Urine Urobilinogen Ur Leukocyte Esterase Urine WBC (Auto) Urine RBC (Auto) U Hyaline Cast (Auto) U Epithel Cells (Auto) Urine Bacteria (Auto) Urine Osmolality Ur Random Sodium Blood Type Antibody Screen
[2018-11-27] MEDS ORDERED: INSULIN GLARGINE SOLOSTAR 100 UNITS/ML 3 ML PEN SC SCH ×2 (21:00→21:03)
[2018-11-27] MEDS ORDERED: INSULIN GLARGINE SOLOSTAR 100 UNITS/ML 3 ML PEN SQ SCH ×2 (21:00)
[2018-11-28] MEDS: HYDROmorphone INJ 0.5 MG/0.5 ML SYR IV PRN ×2 (00:37→21:39)
[2018-11-28] MEDS: OXYCODONE HCL IR 5 MG TAB (IMMEDIATE RELEASE) PO PRN ×4 (03:30→21:18)
[2018-11-28 07:24] LABS: BUN Creatinine Ratio 23.9 (10-20); Calcium 8.7 mg/dl (8.5-10.1); Est GFR (African American) 15.1; Est GFR (Non-African American) 13.1; Potassium 4.7 mmol/L (3.5-5.1)
[2018-11-28 07:33] LABS: Hemoglobin 10.1 g/dL (14.0-18.0); Mean Corpuscular Hgb Conc 33.7 g/dL (32-36); Mean Corpuscular Volume 93.2 fL (80-100); Mean Platelet Volume 12.3 fL (7.4-10.4); Platelet Count 41 K/uL (130-400); RDW Coefficient of Variation 15.7 % (11.5-14.5); RDW Standard Deviation 52.3 fL (36.4-46.3); Red Blood Count 3.22 M/uL (4.7-6.1); White Blood Count 6.05 K/uL (4.8-10.8)
[2018-11-28] MEDS: METOPROLOL SUCC 25MG EXT REL TAB PO SCH (08:21)
[2018-11-28] MEDS: MIDODRINE HCL 2.5 MG TAB PO SCH ×2 (08:21→21:04)
[2018-11-28] MEDS: RIFAXIMIN 550 MG TABLET PO SCH ×2 (08:21→21:04)
[2018-11-28] MEDS: FOLIC ACID 1 MG TAB PO SCH (08:21)
[2018-11-28] MEDS: FERROUS SULFATE 325 MG TAB PO SCH (08:21)
[2018-11-28] MEDS: INSULIN ASPART 100 UNITS/ML 3 ML PEN SC SCH ×4 (08:41→21:07)
[2018-11-28] MEDS: INSULIN GLARGINE SOLOSTAR 100 UNITS/ML 3 ML PEN SC SCH ×2 (08:42→21:08)
[2018-11-28] MEDS: ALLOPURINOL 100 MG TAB PO SCH (10:03)
--- NOTE | 2018-11-28 11:42 | Hospitalist Progress Note ---
Date of Service November 28, 2018 Assessment & Plan (1) Hypotension: Pt presented s/p fall secondary to dizziness on 11/26/18. Probable secondary to orthostatic hypotension. Last week nephrology had changed medications secondary to weight gain - Lasix was increased from 80mg BID to 120mg BID x 14 days. Metolazone increased from 2.5mg prn>3lb weight gain in 48hrs to 2.5mg daily x 14 days. Midodrine increased from 2.5mg BID to 5mg BID x 14 days -Today BP improved to 119/74, 105/65 -Had received gentle IVF. IVF now discontinued -Lasix, spironolactone, metolazone currently on hold -Continue midodrine 2.5mg BID -Nephrology consult, appreciate recommendations (2) Fall: S/P fall on 11/26/[address] had negative CT head, CT c-spine no fracture -PT/OT eval - recommending acute inpatient rehab (3) Fracture of fifth metacarpal bone of right hand: Xray R Hand: Acute nondisplaced transverse fracture within the base of the right fifth metacarpal. -Pt in wrist splint -Ortho consult, appreciate recommendations * Can continue with cock up wrist splint until the skin tears heal and then would consider whether to place into a short arm cast. * He can follow up in the office at [facility] [place] in 7-10 days for repeat xrays * Ice/elevate for swelling * No lifting with that arm (4) Left knee pain: C/O Left anterior knee pain with ROM L Knee Xray negative for fracture (5) Facial fracture: CT FACE: Nondisplaced fracture within the left nasal bone which extends to the frontal process of the left maxilla. -ENT consult, awaiting recommendations (6) Laceration: Multiple abrasions and skin tears with steri strips in place to extremities L leg with wound with sutures in place Nasal bridge with wound with sutures in place -Keep areas clean and dry -No current signs of infection (7) CKD (chronic kidney disease), stage IV: CKD IV-V 11/28/18 Cr: 3.8 from 4.6 on 11/26/18. Cr: 3.9 on 11/19/18 with prior labs with Cr ~3.3 -Pt received gentle IVF. No IVF since 11/27/18. 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, encephalopathy, esophageal varices -Continue rifaximin -Lasix, spironolactone, Metolazone currently on hold (9) Diabetes mellitus, type II: A1c: 9.0 -Continue Lantus, Novolog sliding scale per protocol, glycemic pharmacy consulted (10) Sick sinus syndrome: (11) Hypertrophic cardiomyopathy: S/P pacemaker -Paced rhythm (12) Paroxysmal atrial fibrillation: Not on anticoagulant secondary to thrombocytopenia -Continue metoprolol with holding parameters (13) Sleep apnea, obstructive: -CPAP on hold secondary to facial injuries, ENT consulted for assistance when can resume -O2 HS for now while not using CPAP (14) Myelodysplastic syndrome: (15) Thrombocytopenia: (16) Anemia: Chronic anemia probable secondary to CKD, MDS Hgb: 10.0. (Baseline 10-12) Plt: 41 (baseline in 50's) DVT Prophylaxis -SCDs secondary to thrombocytopenia Disposition acute inpatient rehab, awaiting placement Pt was seen and care coordinated with Dr Avelar. See addendum Supervising Physician Co-Signing Physician Notes Pt was seen and examined. Agreed with Lisset CAMPBELL exam, assessment and plan. Pt said that he does have pain with movement. He said that he feels weak. Agreed to go to rehab. Creatinine slightly improves. continue avoiding nephrotoxic agents. Fall precaution. Continue PT/OT. ENT consult pending for the nondisplaced nasal fracture. MD Rosio Subjective Pt seen and examined. Sitting up in bed Reports less knee pain today. C/O pain to right hand/wrist with any movement of right arm. Has not been able to ambulate well, prior reports use of walker however with right metacarpal fracture having difficulty. Denies any [place], facial pain. Denies right finger/hand/wrist pain. Denies dizziness today. Reports has ambulated to bedside chair only this morning. Denies fever/chills, N/V/D/C, neck pain, CP, SOB, orthopnea, palpitations, cough, abdominal pain, paresthesias, extremity edema, rashes, urinary symptoms. Physical Exam Physical Exam: General: no acute distress, WDWN Head: normocephalic, Face: +ecchymosis bilateral periorbital, maxillary region, +ecchymosis forehead, +abrasion forehead Eyes: PERRL, EOM's intact, conjunctiva non-injected, anicteric ENT: normal inspection external ears, external nose with laceration with sutures in place and ecchymosis, mucous membranes moist Neck: supple, trachea midline, non-tender, ROM intact Lungs: clear, no respiratory distress, no wheezing/rhonchi/rales CV: RRR, systolic murmur, 1+ pretibial edema Abd: normal BS, soft, non-tender Ext: RUE: +multiple skin tears to right arm with steri-strips in place with surrounding ecchymosis, wrist brace intact to right wrist, Right hand with edema and ecchymosis, ROM right fingers intact, distal pulses intact Lower extremities with abrasions, L leg with wound with sutures in place, able to flex and extend bilateral knees while in bed Neuro: alert, oriented to person, place; no focal deficits noted, normal affect Skin: warm, dry, abrasions, lacerations as above Results & Data Vital Signs (Past 12 Hours) Vital Signs Temp Pulse Pulse Resp BP Pulse Ox 11/28/18 07:50 71 11/28/18 06:56 36.8 C 86 20 105/65 97 11/28/18 03:20 36.8 C 68 18 119/74 97 11/28/18 00:30 75 Laboratory Results Short CBC 11/28/18 Range/Units 05:53 WBC 6.05 (4.8-10.8) K/uL Hgb 10.1 L (14.0-18.0) g/dL Hct 30.0 L (42-52) % Plt Count 41 L (130-400) K/uL BMP 11/28/18 05:53 Sodium 135 L Potassium 4.7 D Chloride 100 Carbon Dioxide 28 BUN 92 H Creatinine 3.86 H D Glucose 154 H Calcium 8.7
--- NOTE | 2018-11-28 13:15 | Nephrology Progress Note ---
Date of Service November 28, 2018 Assessment & Plan (1) MAGEN (acute kidney injury): Patient with acute kidney injury on CKD. He has CKD stage IV with baseline creatinine of 3.5. Creatinine slightly better at 3.8 from 4.1. Etiology of worsening renal function likely hemodynamically mediated in setting of hypotension with recent escalation of diuretics. I agree with holding diuretics. Electrolytes are stable. No indication for dialysis at this point. Monitor renal function with daily BMP. Avoid nephrotoxins such as NSAIDs and contrast. (2) Hypotension: Likely hemodynamically mediated in setting of diuresis. Blood pressure is is on the lower side but acceptable. We may have to hold metolazone going forward. (3) Fall: Patient with fall likely in setting of hypotension. He also has a history of sick sinus syndrome and this could have been in setting of arrhythmias. Continue monitoring on telemetry. Monitor for orthostasis. He will need physical therapy before discharge. (4) Anemia in CKD (chronic kidney disease): Recent hemoglobin of 10. Will check iron levels. No need for Epogen Subjective Patient seen in follow-up for CKD. He feels better today no shortness of breath. He still has significant pain in the right arm and bruised face. No leg swelling. No urinary symptoms. Blood pressure is on the lower side. Review of Systems Review of Systems: All systems reviewed & are unremarkable except as noted in HPI & below Physical Exam Physical Exam: General exam: Appears comfortable, no acute distress HEENT: Pupils are equal and reactive to light Neck: No JVD, neck is supple trachea is midline Respiratory system: Clear breath sounds bilaterally. Gastrointestinal: Abdomen is soft, non distended, non tender, bowel sounds are present CVS: Regular rate and rhythm. No murmurs, rubs or gallops Musculoskeletal: No joint or muscle tenderness Extremities: Non tender, trace edema, peripheral pulses are present Neuro: Oriented, no tremors, no focal neurological deficits Skin: No rashes, bruises on the face and right arm Results & Data Vital Signs (Past 12 Hours) Vital Signs Temp Pulse Pulse Resp BP Pulse Ox 11/28/18 12:00 36.8 C 76 20 97/57 L 94 11/28/18 07:50 71 11/28/18 06:56 36.8 C 86 20 105/65 97 11/28/18 03:20 36.8 C 68 18 119/74 97 Laboratory Results Laboratory Results - last 24 hr 11/27/18 11/27/18 11/27/18 16:41 20:33 20:35 WBC RBC Hgb Hct MCV MCH MCHC RDW Std Deviation RDW Coeff of [place] Plt Count MPV Sodium Potassium Chloride Carbon Dioxide Anion Gap BUN Creatinine Est Cr Clr Drug Dosing Est GFR ( Amer) Est GFR (Non-Af Amer) BUN/Creatinine Ratio Glucose POC Glucose 231 H 328 H* 312 H* Calcium 11/28/18 11/28/18 11/28/18 05:53 05:53 07:30 WBC 6.05 RBC 3.22 L Hgb 10.1 L Hct 30.0 L MCV 93.2 MCH 31.4 MCHC 33.7 RDW Std Deviation 52.3 H RDW Coeff of [place] 15.7 H Plt Count 41 L MPV 12.3 H Sodium 135 L Potassium 4.7 D Chloride 100 Carbon Dioxide 28 Anion Gap 8.0 BUN 92 H Creatinine 3.86 H D Est Cr Clr Drug Dosing 17.0 Est GFR ( Amer) 15.1 Est GFR (Non-Af Amer) 13.1 BUN/Creatinine Ratio 23.9 H Glucose 154 H POC Glucose 171 H Calcium 8.7 11/28/18 11:12 WBC RBC Hgb Hct MCV MCH MCHC RDW Std Deviation RDW Coeff of [place] Plt Count MPV Sodium Potassium Chloride Carbon Dioxide Anion Gap BUN Creatinine Est Cr Clr Drug Dosing Est GFR ( Amer) Est GFR (Non-Af Amer) BUN/Creatinine Ratio Glucose POC Glucose 269 H Calcium
[2018-11-28] MEDS ORDERED: INSULIN GLARGINE SOLOSTAR 100 UNITS/ML 3 ML PEN SQ SCH (21:00)
[2018-11-29] MEDS: ACETAMINOPHEN 325 MG TAB PO PRN (05:55)
[2018-11-29 06:29] LABS: BUN Creatinine Ratio 22.6 (10-20); Calcium 8.3 mg/dl (8.5-10.1); Creatinine Clr Calc Pharmacy 15.8 ml/min; Est GFR (African American) 14.2; Est GFR (Non-African American) 12.3; Potassium 4.8 mmol/L (3.5-5.1)
[2018-11-29] MEDS: INSULIN ASPART 100 UNITS/ML 3 ML PEN SC SCH ×4 (08:10→20:50)
[2018-11-29] MEDS: INSULIN GLARGINE SOLOSTAR 100 UNITS/ML 3 ML PEN SC SCH (08:11)
[2018-11-29] MEDS: ALLOPURINOL 100 MG TAB PO SCH (08:11)
[2018-11-29] MEDS: MIDODRINE HCL 2.5 MG TAB PO SCH ×2 (08:12→21:01)
[2018-11-29] MEDS: RIFAXIMIN 550 MG TABLET PO SCH ×2 (08:12→21:01)
[2018-11-29] MEDS: METOPROLOL SUCC 25MG EXT REL TAB PO SCH (08:12)
[2018-11-29] MEDS: FERROUS SULFATE 325 MG TAB PO SCH (08:12)
[2018-11-29] MEDS: FOLIC ACID 1 MG TAB PO SCH (08:13)
[2018-11-29] MEDS: OXYCODONE HCL IR 5 MG TAB (IMMEDIATE RELEASE) PO PRN ×2 (08:48→21:02)
--- NOTE | 2018-11-29 11:07 | Hospitalist Progress Note ---
Date of Service November 29, 2018 Assessment & Plan (1) Hypotension: Pt presented s/p fall secondary to dizziness on 11/26/18. Probable secondary to orthostatic hypotension. Beginning of November, nephrology had changed medications secondary to weight gain - Lasix was increased from 80mg BID to 120mg BID x 14 days. Metolazone increased from 2.5mg prn>3lb weight gain in 48hrs to 2.5mg daily x 14 days. Midodrine increased from 2.5mg BID to 5mg BID x 14 days SBP's in 90's. Pt appears euvolemic -Had initially received gentle IVF. No further IVF -Lasix, spironolactone, metolazone currently on hold -Continue midodrine 2.5mg BID -Nephrology consult, appreciate recommendations (2) Fall: S/P fall on 11/26/[address] had negative CT head, CT c-spine no fracture -PT/OT eval - recommending acute inpatient rehab (3) Fracture of fifth metacarpal bone of right hand: Xray R Hand: Acute nondisplaced transverse fracture within the base of the right fifth metacarpal. -Pt in wrist splint -Ortho consult, appreciate recommendations * Can continue with cock up wrist splint until the skin tears heal and then would consider whether to place into a short arm cast. * He can follow up in the office at [facility] in 7-10 days for repeat xrays * Ice/elevate for swelling * No lifting with that arm (4) Left knee pain: C/O Left anterior knee pain with ROM L Knee Xray negative for fracture (5) Facial fracture: CT FACE: Nondisplaced fracture within the left nasal bone which extends to the frontal process of the left maxilla. -ENT consult Dr Thompson - spoke with on phone and recommends out patient follow up Appt scheduled for 12/03/18 at 1:45PM with Dr Thompson (6) Laceration: Multiple abrasions and skin tears with steri strips in place to extremities L leg with wound with sutures in place Nasal bridge with wound with sutures in place -Keep areas clean and dry -No current signs of infection (7) CKD (chronic kidney disease), stage IV: CKD IV-V 11/28/18 Cr: 3.8 from 4.6 on 11/26/18. Cr: 3.9 on 11/19/18 with prior labs with Cr ~3.3 -Pt received gentle IVF. No IVF since 11/27/18. 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, encephalopathy, esophageal varices -Continue rifaximin -Lasix, spironolactone, Metolazone currently on hold (9) Diabetes mellitus, type II: A1c: 9.0 -Continue Lantus, Novolog sliding scale per protocol, glycemic pharmacy consulted (10) Sick sinus syndrome: (11) Hypertrophic cardiomyopathy: S/P pacemaker -Paced rhythm (12) Paroxysmal atrial fibrillation: Not on anticoagulant secondary to thrombocytopenia -Continue metoprolol with holding parameters (13) Sleep apnea, obstructive: -CPAP initially on hold secondary to facial injuries and O2 HS was used ENT recommends that pt can resume CPAP HS (14) Myelodysplastic syndrome: (15) Thrombocytopenia: (16) Anemia: Chronic anemia probable secondary to CKD, MDS Hgb: 10.0. (Baseline 10-12) Plt: 41 (baseline in 50's) DVT Prophylaxis -SCDs secondary to thrombocytopenia Disposition acute inpatient rehab, awaiting placement Pt was seen and care coordinated with Dr Avelar. See addendum Supervising Physician Co-Signing Physician Notes Pt was seen and examined. Agreed with Lisset CAMPBELL exam, assessment and plan. Pt said that pain improves and was able to moves his arms and fingers. He said that he continues to feel weak. Creatinine slightly increased today. continue av oiding nephrotoxic agents. Lasix, metolazone and spironolactone on hold. Case discussed with ENT and will see pt outpatient when discharge on 12/03. Hold Cpap for now until see ok with ENT to wear it. Continue oxygen supplement. Continue PT/OT. Fall precaution. MD Rosio Subjective Pt seen and examined. Sitting up in bed Pt pleasant. Reports continued pain to right hand and wrist today but feels is a little less than yesterday. Pt with ambulatory difficulty and pending referral to in patient rehab. Reports appetite good. Denies any [place], facial pain. Denies right finger/hand/wrist pain. Denies epistaxis, dizziness, fever/chills, N/V/D, neck pain, CP, SOB, orthopnea, palpitations, cough, abdominal pain, paresthesias, extremity edema, rashes, urinary symptoms. Physical Exam Physical Exam: General: no acute distress, WDWN Head: normocephalic, Face: +ecchymosis bilateral periorbital, bilateral maxillary region, +ecchymosis forehead, +abrasion forehead Eyes: PERRL, EOM's intact, conjunctiva non-injected, anicteric ENT: normal inspection external ears, external nose with laceration with sutures in place and ecchymosis, non-tender to palpation, no epistaxis or dried blood to nares, mucous membranes moist Neck: supple, trachea midline, non-tender, ROM intact Lungs: clear, no respiratory distress, no wheezing/rhonchi/rales CV: RRR, systolic murmur, slight pretibial edema Abd: normal BS, soft, non-tender Ext: RUE: +multiple skin tears to right arm with steri-strips in place with surrounding ecchymosis, wrist brace intact to right wrist, Right hand with edema and ecchymosis, ROM right fingers intact, distal pulses intact Lower extremities with abrasions, L leg with wound with sutures in place, able to flex and extend bilateral knees while in bed Neuro: alert, oriented to person, place; no focal deficits noted, normal affect Skin: warm, dry, abrasions, lacerations as above; multiple ecchymosis extremities Results & Data Vital Signs (Past 12 Hours) Vital Signs Temp Pulse Pulse Resp BP Pulse Ox 11/29/18 07:06 36.9 C 70 18 94/52 L 97 11/29/18 03:24 36.9 C 66 24 92/60 L 99 11/29/18 00:00 79 11/28/18 23:22 36.9 C 62 20 93/59 L 98 Laboratory Results [facility] 11/29/18 05:24 Sodium 134 L Potassium 4.8 Chloride 98 Carbon Dioxide 27 BUN 92 H Creatinine 4.06 H Glucose 205 H Calcium 8.3 L
[2018-11-29] MEDS ORDERED: PHARMACY GLYCEMIC MGMT CONSULT STA (15:13)
[2018-11-29] MEDS ORDERED: PHARMACY GLYCEMIC MGMT CONSULT PRN (15:14)
--- NOTE | 2018-11-29 17:34 | Nephrology Progress Note ---
Date of Service November 29, 2018 Assessment & Plan (1) MAGEN (acute kidney injury): Patient with acute kidney injury on CKD. He has CKD stage IV with baseline creatinine of 3.5. Creatinine stable at 4. Etiology of worsening renal function likely hemodynamically mediated in setting of hypotension with recent escalation of diuretics. I agree with holding diuretics. Electrolytes are stable. No indication for dialysis at this point. Monitor renal function with daily BMP. Avoid nephrotoxins such as NSAIDs and contrast. (2) Hypotension: Likely hemodynamically mediated in setting of diuresis. Blood pressure is is on the lower side but acceptable. We may have to hold metolazone going forward. (3) Fall: Patient with fall likely in setting of hypotension. He also has a history of sick sinus syndrome and this could have been in setting of arrhythmias. Continue monitoring on telemetry. Monitor for orthostasis. He will need physical therapy before discharge. (4) Anemia in CKD (chronic kidney disease): Recent hemoglobin of 10. Will check iron levels. No need for Epogen Subjective Seen in follow up for CKD and fall. Still right side pain in the hand and knee. Facial bruises better. Cr up trending. No SOB Review of Systems Review of Systems: All systems reviewed & are unremarkable except as noted in HPI & below Physical Exam Physical Exam: General exam: Appears comfortable, no acute distress HEENT: Pupils are equal and reactive to light Neck: No JVD, neck is supple trachea is midline Respiratory system: Clear breath sounds bilaterally. Gastrointestinal: Abdomen is soft, non distended, non tender, bowel sounds are present CVS: Regular rate and rhythm. No murmurs, rubs or gallops Musculoskeletal: No joint or muscle tenderness Extremities: Non tender, no edema, peripheral pulses are present Neuro: Oriented, no tremors, no focal neurological deficits Skin: No rashes, bruises on face and right hand Results & Data Vital Signs (Past 12 Hours) Vital Signs Temp Pulse Resp BP Pulse Ox 11/29/18 15:51 36.7 C 86 18 92/61 L 91 11/29/18 12:19 36.8 C 67 18 98/59 L 94 11/29/18 07:06 36.9 C 70 18 94/52 L 97 Laboratory Results Laboratory Results - last 24 hr 11/28/18 11/29/18 11/29/18 20:25 05:24 07:39 Sodium 134 L Potassium 4.8 Chloride 98 Carbon Dioxide 27 Anion Gap 9.0 BUN 92 H Creatinine 4.06 H Est Cr Clr Drug Dosing 15.8 Est GFR ( Amer) 14.2 Est GFR (Non-Af Amer) 12.3 BUN/Creatinine Ratio 22.6 H Glucose 205 H POC Glucose 266 H 224 H Calcium 8.3 L 11/29/18 11/29/18 11:32 16:56 Sodium Potassium Chloride Carbon Dioxide Anion Gap BUN Creatinine Est Cr Clr Drug Dosing Est GFR ( Amer) Est GFR (Non-Af Amer) BUN/Creatinine Ratio Glucose POC Glucose 283 H 314 H* Calcium
--- NOTE | 2018-11-29 19:09 | Pharmacy Report ---
Glycemic Control Consultation - Date of Service November 29, 2018 - Scope Scope: Glycemic Pharmacist consulted by Lisset Stephens on 11/29/18 for glycemic control and to write orders per [facility] inpatient glycemic control protocol - Objective Weight: 105 kg Accuchecks BSG (last 24hrs): 11/28/18 11/29/18 11/29/18 20:25 05:24 07:39 Glucose 205 H POC Glucose 266 H 224 H 11/29/18 11/29/18 11:32 16:56 Glucose POC Glucose 283 H 314 H* Laboratory Data (last 24hrs): 11/29/18 05:24 Potassium 4.8 Carbon Dioxide 27 Anion Gap 9.0 Creatinine 4.06 H Est Cr Clr Drug Dosing 15.8 HbA1c: Hemoglobin A1c 9.0 % (4.5-5.6) H 11/27/18 05:39 - Recent Pertinent Medications Outpatient Anti-diabetic Regimen: * Basaglar 36 units daily + Novolog The patient is currently receiving: * Basal insulin: Lantus 30 units every 12 hours * Correctional Insulin: Novolog Correction per scale ACHS Goal Range: Low 140 mg/dL - High 180 mg/dL Correction Factor: 15 mg/dL/unit * Prandial insulin: Per carb ratio of 1 unit per 5 grams CHO consumed Risk Factors for Insulin Resistance: * Diet: T2DM - Assessment & Plan Assessment & Plan: ASSESSMENT: * Mr Floyd is an 88 y/o M with a PMH of poorly controlled T2DM who presented on 11/26/18 with a fall from hypotension. During hospitalization, patient has required between 81-100 units/day. Blood sugars have not been well controlled. Most are above 200 mg/dL. * In terms of Lantus, basal insulin was drastically increased from 11/28 (from 45 units to 60 units). For a projected TDD of 120 units and also weight-based stress of 3 this is appropriate. Will add overnight checks to see if any more basal is necessary. Of note, this is much more than patient typically requires. In May of last year patient required no basal insulin. Kidney function is much worse at baseline. * In terms of Novolog, it appears that a slight tightening is necessary for now as blood sugars stayed stable yesterday and increased from breakfast to lunch. May need loosened once Lantus increased as needed. Lowered goal range to 110- 140 to correct to a lower blood sugar. * Estimated TDD around 120-140 units/day. PLAN FOR INPATIENT GLYCEMIC CONTROL: * Basal insulin * Lantus 30 units SQ BID * Bolus insulin * NovoLog per scale ACHS or Q6hrs while NPO * Goal Range: Low 110 mg/dL - High 140 mg/dL * Correction Factor: 12 mg/dL/unit * Nutritional / Prandial insulin per carb ratio of 1 unit per 4 grams CHO consumed * Please note that the plan above was derived based on current level of insulin resistance and hospital stress. These recommendations are appropriate for inpatient admission only. Plan of care upon discharge will need to be reassessed to avoid potential outpatient hypo/hyperglycemia. Thank you.
[2018-11-29] MEDS ORDERED: INSULIN HUMAN REGULAR PER UNIT 10 UNITS in SYRINGE 9.9 ML IV ONE (20:30)
[2018-11-29] MEDS ORDERED: INSULIN GLARGINE SOLOSTAR 100 UNITS/ML 3 ML PEN SC SCH ×2 (21:00)
[2018-11-30] MEDS: INSULIN ASPART 100 UNITS/ML 3 ML PEN SC SCH ×6 (01:02→21:59)
[2018-11-30] MEDS: OXYCODONE HCL IR 5 MG TAB (IMMEDIATE RELEASE) PO PRN ×2 (01:11→13:21)
[2018-11-30] MEDS ORDERED: INSULIN GLARGINE SOLOSTAR 100 UNITS/ML 3 ML PEN SC SCH ×4 (08:00→21:00)
[2018-11-30] MEDS: MIDODRINE HCL 2.5 MG TAB PO SCH ×2 (08:33→22:02)
[2018-11-30] MEDS: FERROUS SULFATE 325 MG TAB PO SCH (08:33)
[2018-11-30] MEDS: METOPROLOL SUCC 25MG EXT REL TAB PO SCH (08:33)
[2018-11-30] MEDS: ALLOPURINOL 100 MG TAB PO SCH (08:33)
[2018-11-30] MEDS: FOLIC ACID 1 MG TAB PO SCH (08:34)
[2018-11-30] MEDS: RIFAXIMIN 550 MG TABLET PO SCH ×2 (08:34→22:02)
[2018-11-30 09:01] LABS: Calcium 8.8 mg/dl (8.5-10.1); Creatinine Clr Calc Pharmacy 16.9 ml/min; Est GFR (African American) 15.6; Est GFR (Non-African American) 13.4; Potassium 4.2 mmol/L (3.5-5.1)
--- NOTE | 2018-11-30 09:58 | Nephrology Progress Note ---
Date of Service November 30, 2018 Assessment & Plan (1) MAGEN (acute kidney injury): Patient with acute kidney injury on CKD. He has CKD stage IV with baseline creatinine of 3.5. Creatinine stable at 4. Etiology of worsening renal function likely hemodynamically mediated in setting of hypotension with recent escalation of diuretics. He is auto diuresing likely due to hypoglycemia. Continue holding diuretics. Patient can be discharged off diuretics to be restarted during follow-up with PCP and nephrology in 1 to 2 weeks. Electrolytes are stable. No indication for dialysis at this point. Monitor renal function with daily BMP. Avoid nephrotoxins such as NSAIDs and contrast. (2) Hypotension: Likely hemodynamically mediated in setting of diuresis. Blood pressure is is on the lower side but acceptable. Continue holding diuretics. (3) Fall: Patient with fall likely in setting of hypotension. He also has a history of sick sinus syndrome and this could have been in setting of arrhythmias. Co ntinue monitoring on telemetry. Monitor for orthostasis. He will need physical therapy before discharge. (4) Anemia in CKD (chronic kidney disease): Recent hemoglobin of 10.1. No need for Epogen Subjective Patient seen in follow-up with MAGEN on CKD. He feels better this morning but still reports pain in the right hand and right knee. Facial bruise is improving. No vomiting or diarrhea. Blood pressure is borderline low. He is auto diuresing. Review of Systems Review of Systems: All systems reviewed & are unremarkable except as noted in HPI & below Physical Exam Physical Exam: General exam: Appears comfortable, no acute distress HEENT: Pupils are equal and reactive to light Neck: No JVD, neck is supple trachea is midline Respiratory system: Clear breath sounds bilaterally. Gastrointestinal: Abdomen is soft, non distended, non tender, bowel sounds are present CVS: Regular rate and rhythm. No murmurs, rubs or gallops Musculoskeletal: No joint or muscle tenderness Extremities: Non tender, 1+ edema, peripheral pulses are present. Right hand in brace. Right knee swollen and tender Neuro: Oriented, no tremors, no focal neurological deficits Skin: No rashes, bruises on the face and right hand Results & Data Vital Signs (Past 12 Hours) Vital Signs Temp Pulse Resp BP Pulse Ox 11/30/18 08:45 82 96/56 L 11/30/18 08:31 67 87/53 L 11/30/18 07:06 36.5 C 67 20 92/55 L 99 11/30/18 03:34 36.7 C 78 25 H 93/55 L 97 11/29/18 23:16 36.8 C 60 20 100/62 98 Laboratory Results Laboratory Results - last 24 hr 11/29/18 11/29/18 11/29/18 11:32 16:56 18:00 Sodium Potassium Chloride Carbon Dioxide Anion Gap BUN Creatinine Est Cr Clr Drug Dosing Est GFR ( Amer) Est GFR (Non-Af Amer) BUN/Creatinine Ratio Glucose POC Glucose 283 H 314 H* 307 H* Calcium 11/29/18 11/29/18 11/30/18 20:14 20:16 00:08 Sodium Potassium Chloride Carbon Dioxide Anion Gap BUN Creatinine Est Cr Clr Drug Dosing Est GFR ( Amer) Est GFR (Non-Af Amer) BUN/Creatinine Ratio Glucose POC Glucose 315 H* 317 H* 89 Calcium 11/30/18 11/30/18 11/30/18 04:09 07:32 08:17 Sodium 137 Potassium 4.2 Chloride 100 Carbon Dioxide 27 Anion Gap 10.0 BUN 98 H Creatinine 3.77 H Est Cr Clr Drug Dosing 16.9 Est GFR ( Amer) 15.6 Est GFR (Non-Af Amer) 13.4 BUN/Creatinine Ratio 26.0 H Glucose 121 H POC Glucose 90 108 H Calcium 8.8
--- NOTE | 2018-11-30 10:02 | Hospitalist Progress Note ---
Date of Service November 30, 2018 Assessment & Plan (1) Hypotension: Pt presented s/p fall secondary to dizziness on 11/26/18. Probable secondary to orthostatic hypotension. Beginning of November, nephrology had changed medications secondary to weight gain - Lasix was increased from 80mg BID to 120mg BID x 14 days. Metolazone increased from 2.5mg prn>3lb weight gain in 48hrs to 2.5mg daily x 14 days. Midodrine increased from 2.5mg BID to 5mg BID x 14 days SBP's has remained in 90's. Pt appears euvolemic -Had initially received gentle IVF. No further IVF -Lasix, spironolactone, metolazone have been on hold -Continue midodrine 2.5mg BID -Nephrology consult, appreciate recommendations - recommend continued holding of diuretics and further out patient follow up to determine restart (2) Fall: S/P fall on 11/26/18 In ER had negative CT head, CT c-spine no fracture -PT/OT eval - recommending acute inpatient rehab (3) Fracture of fifth metacarpal bone of right hand: Xray R Hand: Acute nondisplaced transverse fracture within the base of the right fifth metacarpal. -Today reports decreased discomfort to R hand and wrist -Pt in wrist splint -Ortho consult, appreciate recommendations * Can continue with cock up wrist splint until the skin tears heal and then would consider whether to place into a short arm cast. * He can follow up in the office [facility] in 7-10 days for repeat xrays * Ice/elevate for swelling * No lifting with that arm (4) Left knee pain: C/O Left anterior knee pain with ROM L Knee Xray negative for fracture (5) Knee pain, right: C/O R knee pain and stiffness with limited ROM today Possible gout -Xray R knee: No fracture or dislocation within the right knee. [id number] knee effusion. Advanced patellofemoral joint osteoarthritis. -Uric acid level: 6.3 -Cannot use NSAIDs, will trial prednisone 20mg daily (6) Facial fracture: CT FACE: Nondisplaced fracture within the left nasal bone which extends to the frontal process of the left maxilla. -ENT consult Dr Thompson - spoke with on phone on 11/29/18 and recommends out patient follow up Appt scheduled for 12/03/18 at 1:45PM with Dr Thompson (7) Laceration: Multiple abrasions and skin tears with steri strips in place to extremities L leg with wound with sutures in place Nasal bridge with wound with sutures in place -Keep areas clean and dry -No current signs of infection (8) CKD (chronic kidney disease), stage IV: CKD IV-V. H/O Cr: 3.9 on 11/19/18 with prior labs with Cr ~3.3 11/30/18 Cr: 3.7 from 4.6 on 11/26/18. -Pt received gentle IVF. No IVF since 11/27/18. 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 H/O ascites, encephalopathy, esophageal varices -Continue rifaximin -Lasix, spironolactone, Metolazone have been on hold during hospitalization. Nephrology recommends holding diuretics until further out patient follow up (10) Diabetes mellitus, type II: A1c: 9.0 BSGs have been elevated during hospital course in the 200's - 300's -Continue Lantus, Novolog sliding scale per protocol, glycemic pharmacy consulted -Close monitoring as prednisone being added also (11) Sick sinus syndrome: (12) Hypertrophic cardiomyopathy: S/P pacemaker -Paced rhythm (13) Paroxysmal atrial fibrillation: Not on anticoagulant secondary to thrombocytopenia -Continue metoprolol with holding parameters (14) Sleep apnea, obstructive: -CPAP on hold secondary to facial injuries and O2 HS is being used -Continue O2 HS until further cleared by ENT (15) Myelodysplastic syndrome: (16) Thrombocytopenia: (17) Anemia: Chronic anemia probable secondary to CKD, MDS Hgb: 10.0. (Baseline 10-12) Plt: 41 (baseline in 50's) DVT Prophylaxis -SCDs secondary to thrombocytopenia Disposition acute inpatient rehab, anticipate discharge possibly tomorrow Follow up appointments: ENT - Dr Thompson on 12/03/18 at 1:45PM at [facility] PCP - Dr Garza on 12/06/18 at 10:05 AM at [facility] Pt was seen and care coordinated with Dr Pearson. See addendum Supervising Physician Co-Signing Physician Notes Attending addendum: Patient is seen and examined, care coordinated with Elma Stephens PA-C 82-year-old male with multiple comorbidities-admitted with fall, renal failure, facial bone fracture Plan to discharge to rehab at [facility] Complains of severe right knee pain started 24 hours ago Right knee exam shows area of knee swelled, positive erythematous positive warmth Possible inflammatory/gouty arthritis X-ray of knee shows no fracture, chronic osteoarthritis Uric acid level within normal limit Avoid NSAIDs given advanced kidney disease Trial of p.o. prednisone ordered Pharmacy following for glycemic management, update regarding addition of prednisone which may cause steroid-induced hyperglycemia CODE STATUS DNR/DNI Disposition: Possible discharge to [facility] for rehab in next 24 to 48 hours as right knee pain improves, which will allow patient to participate in rehab Subjective Pt seen and examined. Sitting up in bed. Pt reports less pain to right hand and wrist today and feels area is less swollen than yesterday. Still with left knee pain but feels right knee painful today and reports pain to medial and frontal aspect of right knee. Pt has ambulatory difficulty [facility] referral has been placed. Reports appetite has been good. Denies any [place], facial pain. Denies right finger/hand/wrist pain. Denies epistaxis, dizziness, fever/chills, N/V/D, neck pain, CP, SOB, orthopnea, palpitations, cough, abdominal pain, paresthesias, extremity edema, rashes, urinary symptoms. Physical Exam Physical Exam: General: no acute distress, WDWN Head: normocephalic, Face: +ecchymosis bilateral periorbital, bilateral maxillary region, +ecchymosis forehead, +abrasion forehead Eyes: PERRL, EOM's intact, conjunctiva non-injected, anicteric ENT: hard of hearing, normal inspection external ears, external nose with laceration with sutures in place and scabbing and ecchymosis, non-tender to palpation, no dried blood to nares, mucous membranes moist Neck: supple, trachea midline, non-tender, ROM intact Lungs: clear, no respiratory distress, no wheezing/rhonchi/rales CV: RRR, systolic murmur, slight pretibial edema Abd: normal BS, soft, non-tender Ext: RUE: +multiple skin tears to right arm with steri-strips in place with surrounding ecchymosis, wrist brace intact to right wrist, Right hand with edema and ecchymosis, ROM right fingers intact, brisk capillary refill, distal pulses intact Lower extremities with abrasions anterior lower legs, L leg with wound with sutures in place with scabbing, bilateral knees with edema and ecchymosis, right knee with tenderness to palpation and limited flexion of knee; distal pulses intact Neuro: alert, oriented to person, place; no focal deficits noted, normal affect Skin: warm, dry, abrasions, lacerations as above; multiple ecchymosis extremities Results & Data Vital Signs (Past 12 Hours) Vital Signs Temp Pulse Resp BP Pulse Ox 11/30/18 08:45 82 96/56 L 11/30/18 08:31 67 87/53 L 11/30/18 07:06 36.5 C 67 20 92/55 L 99 11/30/18 03:34 36.7 C 78 25 H 93/55 L 97 11/29/18 23:16 36.8 C 60 20 100/62 98 Laboratory Results [facility] 11/30/18 08:17 Sodium 137 Potassium 4.2 Chloride 100 Carbon Dioxide 27 BUN 98 H Creatinine 3.77 H Glucose 121 H Calcium 8.8 Diagnostic Findings R KNEE XRAY: IMPRESSION: 1. No fracture or dislocation within the right knee. 2. [id number] knee effusion. 3. Advanced patellofemoral joint osteoarthritis.
--- NOTE | 2018-11-30 10:38 | Pharmacy Report ---
Pharmacy Glycemic Short Note 2 - Date of Service November 30, 2018 - Glycemic Short BSG Results (Last 24 hours): 11/29/18 11/29/18 11/29/18 11:32 16:56 18:00 Glucose POC Glucose 283 H 314 H* 307 H* 11/29/18 11/29/18 11/30/18 20:14 20:16 00:08 Glucose POC Glucose 315 H* 317 H* 89 11/30/18 11/30/18 11/30/18 04:09 07:32 08:17 Glucose 121 H POC Glucose 90 108 H OUTPATIENT ANTIDIABETIC REGIMEN: * Basaglar 36 units SQ daily * NovoLog per scale * A1c = 9% on 11/27/18 ASSESSMENT: * 88yo T2Dm male with near adequate outpatient glycemic control per A1c * Goal A1c likely 8-9% based on age/co-morbidities * Total daily insulin dosing has been increasing daily * 11/27: 81 units/day * 11/28: 100 units/day * 11/29: 144 units/day * AM fasting BSG slightly below goal range this morning after receiving 70 units of basal insulin yesterday, will decrease dosing slightly * CF/CR tightened last evening, no adjustments needed today. PLAN FOR INPATIENT GLYCEMIC CONTROL: * Basal insulin * Lantus 30 units SQ x 1 dose this morning for "lower" AM fasting BSG * then, Lantus 35 units SQ BID * Bolus insulin * NovoLog per scale ACHS or Q6hrs while NPO * Goal Range: Low 110 mg/dL - High 140 mg/dL * Correction Factor: 12 mg/dL/unit * Nutritional / Prandial insulin per carb ratio of 1 unit per 4 grams CHO consumed
--- NOTE | 2018-11-30 11:58 | XRay Report ---
XR knee RT 2V routine CLINICAL HISTORY: R knee pain, edema COMPARISON STUDY: Right lower leg 07/28/2013. FINDINGS: No fracture or dislocation within the right knee. The bones are osteopenic. Advanced osteoa rthritis at the patellofemoral joint. Small to moderate knee effusion. Vascular calcifications are no keysha. Small metallic BB within the rostral right lower leg. This remains unchanged. IMPRESSION: 1. No fracture or dislocation within the right knee. 2. Fqtgc-pi-[id number] knee effusion. 3. Advanced patellofemoral joint osteoarthritis. Electronically signed by: Richard Prescott M.D. 11/30/2018 11:57 AM
[2018-11-30] MEDS: predniSONE 20 MG TAB PO SCH (13:22)
[2018-11-30] MEDS ORDERED: INSULIN HUMAN NPH SC ONE (13:45)
[2018-12-01] MEDS ORDERED: INSULIN ASPART 100 UNITS/ML 3 ML PEN SC SCH
[2018-12-01 05:41] LABS: Hematocrit (blood only) 28.4 % (42-52); Hemoglobin 9.6 g/dL (14.0-18.0); Mean Corpuscular Hgb Conc 33.8 g/dL (32-36); RDW Coefficient of Variation 15.7 % (11.5-14.5); RDW Standard Deviation 51.7 fL (36.4-46.3); Red Blood Count 3.12 M/uL (4.7-6.1); White Blood Count 6.39 K/uL (4.8-10.8)
[2018-12-01 06:09] LABS: Calcium 8.4 mg/dl (8.5-10.1); Creatinine Clr Calc Pharmacy 17.8 ml/min; Est GFR (African American) 16.6; Est GFR (Non-African American) 14.4; Potassium 4.5 mmol/L (3.5-5.1)
[2018-12-01 06:10] LABS: Mean Platelet Volume 10.4 fL (7.4-10.4); Platelet Count 52 K/uL (130-400)
[2018-12-01 06:11] LABS: Basophils # (auto) 0.01 K/uL (0-0.2); Basophils % (auto) 0.2 %; Immature Granulocytes # (auto) 0.03 K/uL (0.00-0.02); Immature Granulocytes % (auto) 0.5 %; Lymphocytes # (auto) 0.45 K/uL (1.2-3.4); Monocytes # (auto) 0.41 K/uL (0.11-0.59); Monocytes % (auto) 6.4 %; Neutrophils # (auto) 5.49 K/uL (1.4-6.5); Neutrophils % (auto) 85.9 %
[2018-12-01 07:42] VITALS: O2SAT 98
[2018-12-01] MEDS: FERROUS SULFATE 325 MG TAB PO SCH (07:58)
[2018-12-01] MEDS: RIFAXIMIN 550 MG TABLET PO SCH (07:58)
[2018-12-01] MEDS: ALLOPURINOL 100 MG TAB PO SCH (07:58)
[2018-12-01] MEDS: FOLIC ACID 1 MG TAB PO SCH (07:58)
[2018-12-01] MEDS: MIDODRINE HCL 2.5 MG TAB PO SCH (07:59)
[2018-12-01] MEDS: METOPROLOL SUCC 25MG EXT REL TAB PO SCH (07:59)
[2018-12-01] MEDS: predniSONE 20 MG TAB PO SCH (08:00)
[2018-12-01] MEDS: INSULIN ASPART 100 UNITS/ML 3 ML PEN SC SCH ×2 (08:01→12:10)
[2018-12-01] MEDS ORDERED: INSULIN HUMAN NPH SC SCH (09:00)
[2018-12-01] MEDS ORDERED: INSULIN GLARGINE SOLOSTAR 100 UNITS/ML 3 ML PEN SC STA (10:03)
--- NOTE | 2018-12-01 10:06 | Pharmacy Report ---
Pharmacy Glycemic Short Note 2 - Date of Service December 01, 2018 - Glycemic Short BSG Results (Last 24 hours): 11/30/18 11/30/18 11/30/18 12:01 16:50 21:07 Glucose POC Glucose 242 H 257 H 306 H* 11/30/18 12/01/18 12/01/18 23:59 05:28 07:22 Glucose 128 H POC Glucose 220 H 139 H OUTPATIENT ANTIDIABETIC REGIMEN: * Basaglar 36 units SQ daily * NovoLog per scale * A1c = 9% on 11/27/18 ASSESSMENT: * PO prednisone initiated yesterday. BSGs elevated yesterday evening, likely steroid induced. He is better controlled today. PLAN FOR INPATIENT GLYCEMIC CONTROL: * Basal insulin * Lantus 33units BID * NPH to help cover PO prednisone's hyperglycemic effects * Bolus insulin * NovoLog per scale ACHS or Q6hrs while NPO * Goal Range: Low 110 mg/dL - High 140 mg/dL * Correction Factor: 12 mg/dL/unit * Nutritional / Prandial insulin per carb ratio of 1 unit per 3 grams CHO consumed
[2018-12-01 11:30] VITALS: BP 98/57; PULSE 66; TEMP 97.3
--- NOTE | 2018-12-01 15:00 | Hospitalist Progress Note ---
Date of Service December 01, 2018 Assessment & Plan (1) Knee pain, right: Due to acute gout attack Had acute pain swelling with erythema increased warmth yesterday Abdomen resolved after starting with p.o. prednisone (NSAIDs avoided for advance CKD which acute renal failure) Patient's symptom has resolved markedly, minimum tenderness, having full range of motion, erythema and warmth has resolved Interval complete 3 more days of p.o. 20 mg prednisone Insulin NPH dose added to cover for steroid-induced hyperglycemia (2) Hypotension: Pt presented s/p fall secondary to dizziness on 11/26/18. Probable secondary to orthostatic hypotension. Beginning of November, nephrology had changed medications secondary to weight gain - Lasix was increased from 80mg BID to 120mg BID x 14 days. Metolazone increased from 2.5mg prn>3lb weight gain in 48hrs to 2.5mg daily x 14 days. Midodrine increased from 2.5mg BID to 5mg BID x 14 days SBP's has remained in 90's. Pt appears euvolemic -Had initially received gentle IVF. No further IVF -Lasix, spironolactone, metolazone have been on hold -Continue midodrine 2.5mg BID -Nephrology consult, appreciate recommendations - recommend continued holding of diuretics and further out patient follow up to determine restart Patient is stable to be discharged to [facility] today Prescription given for BMP check in 1 week Diuretics will be resumed if renal function shows improvement Nephrology follow-up scheduled with Dr. guillen on 2 weeks 12/14/2018 (3) Fall: S/P fall on 11/26/18 In ER had negative CT head, CT c-spine no fracture -PT/OT eval - recommending acute inpatient rehab -Patient accepted at [facility], stable to be transferred to rehab today (4) Fracture of fifth metacarpal bone of right hand: Xray R Hand: Acute nondisplaced transverse fracture within the base of the right fifth metacarpal. -Today reports decreased discomfort to R hand and wrist -Pt in wrist splint -Ortho consult, appreciate recommendations * Can continue with cock up wrist splint until the skin tears heal and then would consider whether to place into a short arm cast. * He can follow up in the office at [facility] in 7-10 days for repeat xrays * Ice/elevate for swelling * No lifting with that arm (5) Left knee pain: C/O Left anterior knee pain with ROM L Knee Xray negative for fracture (6) Facial fracture: CT FACE: Nondisplaced fracture within the left nasal bone which extends to the frontal process of the left maxilla. -ENT consult Dr Thompson - spoke with on phone on 11/29/18 and recommends out patient follow up Appt scheduled for 12/03/18 at 1:45PM with Dr Thompson (7) Laceration: Multiple abrasions and skin tears with steri strips in place to extremities L leg with wound with sutures in place Nasal bridge with wound with sutures in place -Keep areas clean and dry -No current signs of infection (8) CKD (chronic kidney disease), stage IV: CKD IV-V. H/O Cr: 3.9 on 11/19/18 with prior labs with Cr ~3.3 11/30/18 Cr: 3.7 from 4.6 on 11/26/18. -Pt received gentle IVF. No IVF since 11/27/18. 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 H/O ascites, encephalopathy, esophageal varices -Continue rifaximin -Lasix, spironolactone, Metolazone have been on hold during hospitalization. Nephrology recommends holding diuretics until further out patient follow up (10) Diabetes mellitus, type II: A1c: 9.0 BSGs have been elevated during hospital course in the 200's - 300's -Continue Lantus, Novolog sliding scale per protocol, glycemic pharmacy consulted -Appreciate input Patient will complete 3 more days of p.o. prednisone 20 mg daily Insulin NPH 15 units to be given same time as oral prednisone for 3 days (11) Sick sinus syndrome: Has a pacemaker (12) Hypertrophic cardiomyopathy: S/P pacemaker -Paced rhythm (13) Paroxysmal atrial fibrillation: Not on anticoagulant secondary to thrombocytopenia -Continue metoprolol with holding parameters (14) Sleep apnea, obstructive: -CPAP on hold secondary to facial injuries and O2 HS is being used -Continue O2 via nasal cannula HS until further cleared by ENT (15) Myelodysplastic syndrome: (16) Thrombocytopenia: (17) Anemia: Chronic anemia probable secondary to CKD, MDS Hgb: 10.0. (Baseline 10-12) Plt: 41 (baseline in 50's) DVT Prophylaxis -SCDs secondary to thrombocytopenia Disposition acute inpatient rehab, stable to be transferred today Follow up appointments: ENT - Dr Thompson on 12/03/18 at 1:45PM at [facility] PCP - Dr Garza on 12/06/18 at 10:05 AM at [facility] Pt was seen and care coordinated with Dr Pearson. See addendum Subjective Right knee pain has resolved markedly, no increased warmth or erythema able to bend the knee, Secondary to acute gout attack, p.o. prednisone made market change Patient feels comfortable Willing to go to [facility] today of to participate rehab Physical Exam Constitutional: WD/WN, vitals as above Eyes: Diffuse ecchymosis on face, periorbital area, nasal area ENMT: Nasal bone fracture with crust noted in the middle of the wound, ecchymosis Neck: trachea midline, no thyromegaly Respiratory: normal respiratory effort, lungs clear to auscultation Cardiovascular: Rate/Rhythm: regular rate and regular rhythm Gastrointestinal (Abdomen): Percussion/Palpation: abdomen soft; abdomen nontender Musculoskeletal: Improvement of right knee swelling tenderness, able to have range of motion Skin: Fused ecchymosis, multiple skin tear all over secondary to recent fall Neurologic: PERRL, EOMI, accommodation nl, no face palsy, no dysarthria Psychiatric: A+Ox3, euthymic affect Results & Data Vital Signs (Past 12 Hours) Vital Signs Temp Pulse Pulse Resp BP Pulse Ox 12/01/18 11:29 36.3 C L 66 18 98/57 L 98 12/01/18 07:41 36.6 C 74 18 99/62 L 98 12/01/18 07:22 70 12/01/18 04:14 36.9 C 77 18 92/59 L 94 (1) Knee pain, right Chronicity: acute Qualified Code(s): M25.561 - Pain in right knee
--- NOTE | 2018-12-01 16:06 | Discharge Summary ---
Date of Service December 01, 2018 Admission HPI Per Admitting Provider History obtained from patient, family, and records. Patient is a fair historian. Limited history from patient secondary to hearing impairment. Medical history significant for paroxysmal AFib, 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 as per records, hypertension, hyperlipidemia, COPD, hypertrophic cardiomyopathy status post surgery, nonischemic cardiomyopathy (EF 65-70%). cirrhosis secondary to nonalcoholic fatty liver disease, hx SSS sp PPM, hx bladder cancer status post surgery, BPH, DM2, insulin requiring, CARLITA, chronic renal insufficiency, (baseline creatinine of 3s), chronic anemia (baseline hemoglobin of 10-11), Past tobacco abuse Recent confinement July 2017 for ambulatory dysfunction. Patient seen by claims sorter at the clinic 2 weeks ago. Additional diuretic medications given for weight gain. Patient was walking outside the cement porch off his personal-assisted residence when he noted dizziness after he turned around. Patient subsequently fell face down on the floor. Patient denies chest pain, S OB, LOC. Bleeding wounds noted on the face and extremities. Patient brought to the ER. Initial SBP in the 80s. SBP currently in the 100s after IVF bolus. Medical History as above Surgical History : PPM, bone fixation, myomectomy, urologic procedures, dental surgery, TURP, cholecystectomy Family History : Heart disease Personal/Social history :Past tobacco abuse, no EtOH intake, retired [employer], personal-assisted resident Principal Diagnosis Fall/facial bone fracture/acute renal failure/CKD stage IV/left fifth meta carpal fracture Discharge Data Allergies Allergy/AdvReac Type Severity Reaction Status Date / Time propranolol Allergy Unknown Verified 11/26/18 17:55 codeine AdvReac Mild NOTED Verified 11/26/18 17:55 "DOESNT TOLERATE WELL" Consultations 11/26/18 19:08 ED Decision to Admit Stat 11/26/18 21:55 Consult Case Management - Discharge Planning Routine Consult Nephrology Routine Consult Orthopedic Surgery Routine Consult Otolaryngology (Head and Neck) Routine Ordered Studies 11/26/18 16:50 CT cervical spine wo con Stat CT facial bones wo con Stat CT head/brain wo con Stat Hospital Course (1) Knee pain, right: Due to acute gout attack Had acute pain swelling with erythema increased warmth yesterday Abdomen resolved after starting with p.o. prednisone (NSAIDs avoided for advance CKD which acute renal failure) Patient's symptom has resolved markedly, minimum tenderness, having full range of motion, erythema and warmth has resolved Interval complete 3 more days of p.o. 20 mg prednisone Insulin NPH dose added to cover for steroid-induced hyperglycemia (2) Hypotension: Pt presented s/p fall secondary to dizziness on 11/26/18. Probable secondary to orthostatic hypotension. Beginning of November, nephrology had changed medications secondary to weight gain - Lasix was increased from 80mg BID to 120mg BID x 14 days. Metolazone increased from 2.5mg prn>3lb weight gain in 48hrs to 2.5mg daily x 14 days. Midodrine increased from 2.5mg BID to 5mg BID x 14 days SBP's has remained in 90's. Pt appears euvolemic -Had initially received gentle IVF. No further IVF -Lasix, spironolactone, metolazone have been on hold -Continue midodrine 2.5mg BID -Nephrology consult, appreciate recommendations - recommend continued holding of diuretics and further out patient follow up to determine restart Patient is stable [facility] be [facility] Prescription given for BMP check in 1 week Diuretics will be resumed if renal function shows improvement Nephrology follow-up scheduled with Dr. gulilen on 2 weeks 12/14/2018 (3) Fall: S/P fall on 11/26/[address] had negative CT head, CT c-spine no fracture -PT/OT eval - recommending acute inpatient rehab -Patient [facility], stable to be transferred to rehab today (4) Fracture of fifth metacarpal bone of right hand: Xray R Hand: Acute nondisplaced transverse fracture within the base of the right fifth metacarpal. -Today reports decreased discomfort to R hand and wrist -Pt in wrist splint -Ortho consult, appreciate recommendations * Can continue with cock up wrist splint until the skin tears heal and then would consider whether to place into a short arm cast. * He can follow up in the office at [facility] in 7-10 days for repeat xrays * Ice/elevate for swelling * No lifting with that arm (5) Left knee pain: C/O Left anterior knee pain with ROM L Knee Xray negative for fracture (6) Facial fracture: CT FACE: Nondisplaced fracture within the left nasal bone which extends to the frontal process of the left maxilla. -ENT consult Dr Thompson - spoke with on phone on 11/29/18 and recommends out patient follow up Appt scheduled for 12/03/18 at 1:45PM with Dr Thompson (7) Laceration: Multiple abrasions and skin tears with steri strips in place to extremities L leg with wound with sutures in place Nasal bridge with wound with sutures in place -Keep areas clean and dry -No current signs of infection (8) CKD (chronic kidney disease), stage IV: CKD IV-V. H/O Cr: 3.9 on 11/19/18 with prior labs with Cr ~3.3 11/30/18 Cr: 3.7 from 4.6 on 11/26/18. -Pt received gentle IVF. No IVF since 11/27/18. 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 H/O ascites, encephalopathy, esophageal varices -Continue rifaximin -Lasix, spironolactone, Metolazone have been on hold during hospitalization. Nephrology recommends holding diuretics until further out patient follow up (10) Diabetes mellitus, type II: A1c: 9.0 BSGs have been elevated during hospital course in the 200's - 300's -Continue Lantus, Novolog sliding scale per protocol, glycemic pharmacy consulted -Appreciate input Patient will complete 3 more days of p.o. prednisone 20 mg daily Insulin NPH 15 units to be given same time as oral prednisone for 3 days (11) Sick sinus syndrome: Has a pacemaker (12) Hypertrophic cardiomyopathy: S/P pacemaker -Paced rhythm (13) Paroxysmal atrial fibrillation: Not on anticoagulant secondary to thrombocytopenia -Continue metoprolol with holding parameters (14) Sleep apnea, obstructive: -CPAP on hold secondary to facial injuries and O2 HS is being used -Continue O2 via nasal cannula HS until further cleared by ENT (15) Myelodysplastic syndrome: (16) Thrombocytopenia: (17) Anemia: Chronic anemia probable secondary to CKD, MDS Hgb: 10.0. (Baseline 10-12) Plt: 41 (baseline in 50's) DVT Prophylaxis -SCDs secondary to thrombocytopenia Disposition acute inpatient rehab, stable to be transferred today Follow up appointments: ENT - Dr Thompson on 12/03/18 at 1:45PM at [facility] PCP - Dr Garza on 12/06/18 at 10:05 AM at [facility] Pt was seen and care coordinated with Dr Pearson. See addendum Total Time Total Time Spent Total Time Spent (In Minutes): Proximately 45-minute Total Time Includes: Examination of the Patient, Discharge Planning and Medication Reconciliation Discharge Plan Discharge Items Patient Disposition: Transfer Inpatient Rehab Fac Reason For Visit: ARF CRI,ELEVATED TROP Discharge Diagnosis: Fall/facial bone fracture/acute renal failure/CKD stage IV/left fifth meta carpal fracture Discharge Goals: Decrease discomfort, Diagnostic testing and Therapeutic intervention Activity: As commented below Activity Comment: Continue physical therapy occupational therapy at [facility] Non-emergency contact: Primary Care Provider Call non-emergency contact if: you have any medication questions Follow-up/Referrals: Abran Izaguirre DO [Surgeon] - (In 1 to 2-week for left hand fracture) Davide Guillen MD [Physician] - 12/14/18 1:40 pm Diet: Heart Healthy Other Ambulatory Orders: Basic Metabolic Panel (Routine) Timeframe: 1 Week Location: Determined by Patient Ordered By: Kenya Pearson Add Provider Instructions: Fracture of fifth metacarpal bone of right hand: Xray R Hand: Acute nondisplaced transverse fracture within the base of the right fifth metacarpal. Continue to use wrist splint Can continue with cock up wrist splint until the skin tears heal and then would consider whether to place into a short arm cast. * follow up in the office at [facility] in 7-10 days for repeat xrays * Ice/elevate for swelling * No lifting with that arm Follow up appointments: ENT - Dr Thompson on 12/03/18 at 1:45PM at [facility] PCP - Dr Garza on 12/06/18 at 10:05 AM at [facility] Nephrology follow-up with Dr. GUILLEN on 12/14/2018 at 1:40 PM Lab work: Basic metabolic panel in 1 week Do not take diuretics: Lasix 80 mg twice daily/metolazone 2.5 mg daily/Aldactone 50 mg daily- Nephrology will call to resume once your lab work shows improvement of kidney function You had acute gout arthritis of right knee, 20 mg prednisone ordered for 3 more days Insulin NPH subcu 15 units to be given daily for 3 days same time as p.o. prednisone is given Patient other insulin regimen will stay the same Insulin NPH will be discontinued after 3 days as oral 20 mg prednisone dose is completed. Please check blood sugars 3 times daily: Fasting/before lunch/before breakfast Notify physician if blood sugar elevated more than 200 Prescriptions: New midodrine 2.5 mg Tablet 2.5 mg PO BID 30 Days Qty: 60 RF: 0 prednisone 20 mg tablet 20 mg PO DAILY 3 Days Qty: 3 RF: 0 insulin NPH isoph U-100 human 100 unit/mL (3 mL) insulin pen 15 units SQ DAILY 3 Days Qty: 0.45 RF: 0 Continued ondansetron HCl 4 mg tablet 4 mg PO Q6H PRN (Reason: Nausea) RF: 0 allopurinol 100 mg tablet 200 mg PO DAILY RF: 0 Novolog U-100 Insulin aspart 100 unit/mL Solution 1 sliding scale dose SUBCUT USEASDIRECTD RF: 0 ferrous sulfate 325 mg (65 mg iron) Tablet 325 mg PO DAILY RF: 0 nitroglycerin 0.4 mg tablet, sublingual 0.4 mg sublingual UD PRN (Reason: Chest Pain) RF: 0 folic acid 1 mg Tablet 1 mg PO DAILY RF: 0 metoprolol succinate 25 mg tablet extended release 24 hr 12.5 mg PO DAILY RF: 0 Basaglar KwikPen U-100 Insulin 100 unit/mL (3 mL) Insulin Pen 36 unit SUBCUT DAILY RF: 0 diclofenac sodium 1 % gel 1 % topical TID PRN (Reason: Pain) RF: 0 Xifaxan 550 mg tablet 550 mg PO BID RF: 0 Discontinued metolazone 2.5 mg tablet 2.5 mg PO DAILY PRN (Reason: Unknown) RF: 0 spironolactone 25 mg tablet 50 mg PO QAM RF: 0 furosemide 80 mg tablet 80 mg PO BID RF: 0 midodrine 2.5 mg tablet 2.5 mg PO BID RF: 0 Stand-Alone Forms: [facility] Discharge Orders: Discharge Order (Routine); Ordered 12/01/18 Ordered By: Kenya Pearson Skilled Items Patient informed of condition?: Yes DNR: Yes Discharge Level of Care: Acute rehab Communicable Disease: No Discharge Prognosis: Stable Admission Data Admit Date/Time: 11/26/18 20:24 Attending Provider: Kenya Pearson Admit Provider: Dudley Quevedo Primary Care Provider: Sharri Lira Other Providers: Александр Hoang ; Alona Chong ; Black [place] ; Abran Izaguirre ; Colton Traylor ; Sarah Cabrales Thomas J ; Nicky Flores ; Can Lennon ; Anastacio Doyle ; Fahad Weiss ; Anastacio Hylton Andrew J. ; Fahad Amador ; John Edgar ; Rich Caputo ; Ivan Mccracken ; Ariel Roy ; Red Adams ; Nicky Regan ; Storm Osorio ; Larry Grimes ; David Puckett ; Ramon Thompson ; Reji Avelar Service: Telemetry Medical Other Interventions: Discharge Summary Assessment (RN) Last Done: 12/01/18 15:22 DC Date/Time DO NOT enter until pt leaves facility: 12/01/18 15:50
--- NOTE | 2018-12-01 19:37 | Nephrology Progress Note ---
Date of Service December 01, 2018 Assessment & Plan (1) MAGEN (acute kidney injury): Patient with acute kidney injury on CKD. He has CKD stage 5 with labile baseline creatinine in 3- low 4's. not a dialysis candidate. Etiology of worsening renal function likely hemodynamically mediated in setting of hypotension with recent escalation of diuretics. He is auto diuresing likely due to hypoglycemia. Continue holding diuretics. Patient can be discharged off diuretics to be restarted during follow-up with PCP. Electrolytes are stable as is volume status. Monitor renal function with daily BMP. Avoid nephrotoxins such as NSAIDs and contrast. Present on Admission?: Yes (2) Hypotension: sbp chronically low; acceptable now. Continue holding diuretics at d/c. Will likely need to resume diuretics after d/c at lower dose > reassess at pcp f/u. Present on Admission?: Yes (3) Fall: Patient with fall likely in setting of hypotension. He also has a history of sick sinus syndrome and this could have been in setting of arrhythmias. Continue monitoring on telemetry. Monitor for orthostasis. He will need physical therapy before discharge. (4) Anemia in CKD (chronic kidney disease): Recent hemoglobin 9.6. No need for Epogen Subjective seen on rounds this am 0910; feels much improved though still struggling w/ walking; plans d/c to rehab today or tomorrow some pain at times in hands, sudeep today in R medial knee. feels edema controlled/ improved. not sob; looking forward to rehab and to walking better but worried about device on his walker Review of Systems Review of Systems: All systems reviewed & are unremarkable except as noted in HPI & below Physical Exam Constitutional: well developed and well nourished on RA, nad Eyes: EOM intact bilaterally ENMT: Ears: no external ear abnormality Nose: no external nose abnormality Mouth: + dry oral mucous membranes Neck: no nuchal rigidity Respiratory: normal respiratory effort Auscultation: + diminished lung sounds Cardiovascular: Rate/Rhythm: regular rate and regular rhythm Heart Sounds: + murmur Extremities: + edema (2+ RLE, trace - 1+ LLe edema) Gastrointestinal (Abdomen): Inspection/Auscultation: normal bowel sounds Percussion/Palpation: abdomen soft; abdomen nontender Musculoskeletal: Extremities: strength 5/5 throughout Skin: no rashes, warm and dry large ecchymoses his face, his R arm/leg; BL ant shins wounds wrapped; R wrist brace Neurologic: falk, fluent speech, no tremor Psychiatric: A+Ox3, euthymic affect Results & Data Vital Signs (Past 12 Hours) Vital Signs Temp Pulse Pulse Resp BP BP Pulse Ox 12/01/18 15:22 36.3 C L 66 18 98/57 L 112/60 98 12/01/18 11:29 36.3 C L 66 18 98/57 L 98 12/01/18 07:41 36.6 C 74 18 99/62 L 98 12/01/18 07:22 70 Laboratory Results reviewed
[2018-12-01] MEDS ORDERED: INSULIN GLARGINE SOLOSTAR 100 UNITS/ML 3 ML PEN SC SCH (21:00)
== END 2018-12-01 15:50 | DRG 158 ==
LOC: ED 16:25 → SUATTDRO 20:24 → 2W 20:24